=== PATIENT | female | born 1935 | race Caucasian/White ===

== ENCOUNTER → 2019-03-18 | Outpatient (CLI) | payer MEDICARE | LOC: CARD 09:43 | PROVIDERS: ATTEND Internal Medicine Interventional Cardiology | DX: I25.10 Atherosclerotic heart disease of native coronary artery without angina pectoris (principal); I48.1 Persistent atrial fibrillation; R06.02 Shortness of breath | CPT/HCPCS: 93306 ==

== ENCOUNTER 2019-04-30 14:29 | Emergency (ER) | payer MEDICARE ==
[~2019-04-30] VITALS: Ht 165.1 cm; Wt 90.7 kg
--- OUTSIDE RECORDS SUMMARY | 2019-04-30 14:33 | XMS REPORT | Continuity of Care Document ---
Author Organization Unknown Address Unknown Allergies There is no data. Medications There is no data. Problems Date Dx Coded Attending Type Code Diagnosis Diagnosed By 03/21/2019 Marcio HERRING MD Ot I25.10 ATHSCL HEART DISEASE OF [place] CORONARY 03/21/2019 Marcio HERRING MD Ot I48.1 PERSISTENT ATRIAL FIBRILLATION 03/21/2019 Marcio HERRING MD Ot R06.02 SHORTNESS OF BREATH 04/08/2019 Marcio HERRING MD Ot I25.10 ATHSCL HEART DISEASE OF [place] CORONARY 04/08/2019 Marcio HERRING MD Ot I48.1 PERSISTENT ATRIAL FIBRILLATION 04/08/2019 Marcio HERRING MD Ot R06.02 SHORTNESS OF BREATH Procedures There is no data. Results There is no data. Encounters ACCT No. Visit Date/Time Discharge Status Pt. Type Provider Facility Loc./Unit Complaint [id number] 04/26/2019 10:04:54 04/26/2019 23:59:59 [facility] Outpatient [id number] 03/18/2019 09:43:00 03/18/2019 23:59:59 [facility] Outpatient Marcio HERRING MD Via [facility] CARD CAD
[2019-04-30] MEDS ORDERED: AUGMENTIN 500 MG TAB (AMOXICILLIN/CLAVULANATE) PO ONE (15:15)
[2019-04-30] MEDS ORDERED: TETANUS,DIPTH,PERTUSS P/F (BOOSTRIX) 0.5 ML VIAL IM ONE (15:15)
[2019-04-30] MEDS ORDERED: HYDROcodone/APAP 5 MG/325 MG (LORTAB) TAB PO ONE (15:15)
--- NOTE | 2019-04-30 15:23 | Diagnostic Imaging Report ---
INDICATION: Dog bite. EXAMINATION: Two views of the left forearm were obtained. FINDINGS: Bones are osteopenic. There appears to be a nondisplaced fracture through the distal radius which extends into the radiocarpal joint. There are tiny wire-like foreign bodies overlying the distal radius and ulna, of uncertain etiology. The bones are osteopenic. There are degenerative changes. IMPRESSION: 1. Nondisplaced distal radial fracture. 2. Wire-like foreign bodies overlying the distal radius and ulna presumably foreign body. Recommend clinical correlation. Dictated by: Dictated on workstation # [id number]
--- NOTE | 2019-04-30 15:29 | Diagnostic Imaging Report ---
EXAM: Hand, left, 3 views. INDICATION: Left wrist pain. Attacked by dog. COMPARISON: Left forearm radiographs also performed today. FINDINGS: Mildly angulated intra-articular fracture through the distal left radius. Radiopaque sutures overlying the left distal radius and ulna. Moderate degenerative changes in the right radiocarpal joint. IMPRESSION: Acute appearing mildly displaced fracture of the intra-articular distal left radius.? Dictated by: Dictated on workstation # [id number]
[2019-04-30 15:53] LABS: HEMOGLOBIN 13.5 G/DL (11.5-16.0); MEAN PLATELET VOLUME 10.2 FL (7.4-10.4); WHITE BLOOD COUNT 4.2 10^3/uL (4.3-11.0)
--- NOTE | 2019-04-30 16:00 | NUR ---
Pt came to ED with Steri-strips and gauze over wounds. Dressing and steri strips removed and wounds cleaned with surgical scrub at this time. Dr. Mayfield notified.
[2019-04-30 16:10] LABS: INR 1.9 (0.8-1.4); PROTHROMBIN TIME PATIENT 22.8 SEC (12.2-14.7)
[2019-04-30] MEDS ORDERED: LIDOCAINE/EPI 2% 1:100,00 (XYLOCAINE) 20 ML VIAL INJ ONE (16:30)
--- NOTE | 2019-04-30 17:26 | ED General ---
General Chief Complaint: Bite-Animal/Human/Insect Stated Complaint: ATTACKED BY DOG - ARMS / NECK Nursing Triage Note: PT TO ED W/ C/O MULTIPLE BITES R/T ATTACK BY NEIGHBORS DOG AT 1400 TODAY. PT REPORTS SHE IS ON BLOOD THINNERS FOR A FIB. DENIES POLICE REPORT Nursing Sepsis Screen: No Definite Risk Source of Information: Patient Exam Limitations: No Limitations History of Present Illness Date Seen by Provider: Apr 30, 2019 Time Seen by Provider: 14:55 Initial Comments This 84-year-old woman presents to the emergency room with injuries related to multiple dog bites that occurred around 14:00 today. Patient reports the dog attack was unprovoked. She has multiple lacerations on the bilateral arms and pain to the left wrist. She also has a small laceration on the right neck. Patient is anticoagulated on warfarin for A. fib. She did not file a police report and does not desire to. Dog was supposedly vaccinated and is in custody of the neighbor. Allergies and Home Medications Allergies Coded Allergies: morphine (Verified Adverse Reaction, Unknown, 04/30/19) Hallucinations Home Medications Amoxicillin/Potassium Clav 1 Each Tablet, 1 EACH PO BID Prescribed by: GABY ARCINIEGA on 04/30/19 1728 Hydrocodone Bit/Acetaminophen 1 Tab Tab, 1 EACH PO Q4-6HR PRN for PAIN-MODERATE Prescribed by: GABY ARCINIEGA on 04/30/19 1728 Patient Home Medication List Home Medication List Reviewed: Yes Review of Systems Review of Systems Constitutional: no symptoms reported EENTM: see HPI Respiratory: no symptoms reported Cardiovascular: no symptoms reported Gastrointestinal: no symptoms reported Genitourinary: no symptoms reported : No Musculoskeletal: see HPI Skin: see HPI Psychiatric/Neurological: No Symptoms Reported Hematologic/Lymphatic: See HPI Immunological/Allergic: no symptoms reported Past Zoianyn-Bttfpo-Gupipw Hx Past Med/Social Hx: Reviewed Nursing Past Med/Soc Hx Patient Social History Alcohol Use: Rarely Uses Recreational Drug Use: No Smoking Status: Never a Smoker Recent Foreign Travel: No Contact w/Someone Who Travel: No Recent Infectious Disease Expo: No Physical Abuse: No Sexual Abuse: No Mistreated: No Fear: No Past Medical History Surgeries: Yes (KNEE REPLACEMENT X3, RENAL ARTERY STENT) Adenoidectomy, Hysterectomy, Tonsillectomy Respiratory: Yes Asthma, Sleep Apnea Cardiac: Yes (PACEMAKER) Atrial Fibrillation, Hypertension Neurological: Yes Stroke Genitourinary: No Gastrointestinal: No Musculoskeletal: Yes (WRIST SURGERY) Arthritis Endocrine: Yes (THYROID ISSUES) HEENT: No Cancer: Yes (SKIN CA) Psychosocial: No Integumentary: Yes (SKIN CA REMOVED) Blood Disorders: No Physical Exam Vital Signs Vital Signs - First Documented 04/30/19 04/30/19 14:31 18:25 Temp 98.3 Pulse 73 Resp 18 B/P (MAP) 168/90 (116) Pulse Ox 99 O2 Delivery Room Air Capillary Refill : Less Than 3 Seconds Height, Weight, BMI Height: 5'5.00" Weight: 200lbs. oz. 90.658371xr; BMI Method:Stated General Appearance: No Apparent Distress, WD/WN HEENT: PERRL/EOMI, Normal ENT Inspection Neck: Other (Small laceration to the right neck) Respiratory: Lungs Clear, Normal Breath Sounds, No Accessory Muscle Use, No Respiratory Distress Cardiovascular: Regular Rate, Rhythm, No Murmur Extremity: Other (Numerous lacerations and ecchymosis to the bilateral upper extremities. Tenderness and pain with range of motion in the left wrist.) Neurologic/Psychiatric: Alert, Oriented x3, No Motor/Sensory Deficits, Normal Mood/Affect, porcelain turner II-XII Norm as Tested Skin: Warm/Dry, Ecchymosis, Other (See above) Procedures/Interventions Wound Location: Upper Extremities Other Wound Location Left elbow Wound Length (cm): 2.5 Wound's Depth, Shape: flap, sub Q Betadine Prep?: Yes Anesthesia: Lidocaine w/ Epi Volume Anesthetic (ccs): 1 Suture: Prolene Suture Size: 5-0 Number of Sutures: 1 Wound Location: Upper Extremities Other Wound Location Right arm Wound Length (cm): 1 Wound's Depth, Shape: superficial, flap Wound Explored: clean Irrigated w/ Saline (ccs): 100 Betadine Prep?: Yes Anesthesia: Lidocaine w/ Epi Volume Anesthetic (ccs): 1 Suture: Prolene Suture Size: 5-0 Number of Sutures: 1 Wound Location: Upper Extremities Other Wound Location Right arm Wound Length (cm): 3 Wound's Depth, Shape: flap, sub Q Irrigated w/ Saline (ccs): 100 Betadine Prep?: Yes Anesthesia: Lidocaine w/ Epi Suture: Prolene Suture Size: 5-0 Number of Sutures: 3 Wound Location: Upper Extremities Other Wound Location Right arm Wound Length (cm): 2 Wound's Depth, Shape: superficial, flap Irrigated w/ Saline (ccs): 100 Betadine Prep?: Yes Anesthesia: Lidocaine w/ Epi Suture: Prolene Suture Size: 5-0 Number of Sutures: 1 Wound Location: Upper Extremities Other Wound Location Right arm Wound Length (cm): 1.5 Wound's Depth, Shape: linear, irregular Irrigated w/ Saline (ccs): 100 Betadine Prep?: Yes Anesthesia: Lidocaine w/ Epi Suture: Prolene Suture Size: 5-0 Number of Sutures: 2 Progress/Results/Core Measures Suspected Sepsis Recent Fever Within 48 Hours: No Infection Criteria Present: None New/Unexplained Altered Menta: No Sepsis Screen: No Definite Risk SIRS Temperature:98.3 Pulse: 73 Respiratory Rate: 18 Blood Pressure 168 /90 Mean: 116 Results/Orders Lab Results My Orders Orders - GABY SILVESTRE MD Vaccine Administration Single (04/30/19 ) Medications Given in ED Vital Signs/I&O Capillary Refill : Less Than 3 Seconds Blood Pressure Mean: 116 Progress Note : Progress Note X-ray revealed fracture of the left distal radius. An AlumaFoam Colles' splint was applied. A sugar tong splint was not applied due to the wounds on the forearm. He did not want to occlude these wounds and conceal them from visualization. A more robust splint can be applied later if these wounds demonstrate good healing. Several of the lacerations were loosely closed as they were gaping flaps. They were washed and irrigated with chlorhexidine and normal saline prior to closure. Tetanus booster was administered. Baseline CBC and INR were obtained. See discharge instructions. Hydrocodone was given for pain and a take-home pack of hydrocodone was dispensed. Diagnostic Imaging Diagonstic Imaging: Xray Plain Films/CT/US/NM/MRI: forearm Comments Forearm x-ray viewed by me and report reviewed. See report below: NAME: GLENYS GOLDBERG [facility] REC#: [id number] PT STATUS: REG ER : 1935 PHYSICIAN: GABY SILVESTRE MD ADMIT DATE: 04/30/19/ER Signed Date of Exam: 04/30/19 FOREARM, LEFT, 2 VIEWS INDICATION: Dog bite. EXAMINATION: Two views of the left forearm were obtained. FINDINGS: Bones are osteopenic. There appears to be a nondisplaced fracture through the distal radius which extends into the radiocarpal joint. There are tiny wire-like foreign bodies overlying the distal radius and ulna, of uncertain etiology. The bones are osteopenic. There are degenerative changes. IMPRESSION: 1. Nondisplaced distal radial fracture. 2. Wire-like foreign bodies overlying the distal radius and ulna presumably foreign body. Recommend clinical correlation. Dictated by: Dictated on workstation # [id number] Dict: 04/30/19 1518 Trans: 04/30/19 1549 Interpreted by: MOE MICHAEL MD Electronically signed by: MOE MICHAEL MD 04/30/19 1549 Diagonstic Imaging: Xray Plain Films/CT/US/NM/MRI: hand Comments Left hand x-ray viewed by me and report reviewed. See report below: NAME: GLENYS GOLDBERG MED REC#: [id number] PT STATUS: REG ER : 1935 PHYSICIAN: GABY SILVESTRE MD ADMIT DATE: 04/30/19/ER Signed Date of Exam: 04/30/19 HAND, LEFT, 3 VIEWS EXAM: Hand, left, 3 views. INDICATION: Left wrist pain. Attacked by dog. COMPARISON: Left forearm radiographs also performed today. FINDINGS: Mildly angulated intra-articular fracture through the distal left radius. Radiopaque sutures overlying the left distal radius and ulna. Moderate degenerative changes in the right radiocarpal joint. IMPRESSION: Acute appearing mildly displaced fracture of the intra-articular distal left radius.? Dictated by: Dictated on workstation # [id number] Dict: 04/30/19 1520 Trans: 04/30/19 1622 Interpreted by: MINREVA AMADOR MD Electronically signed by: MINERVA AMADOR MD 04/30/19 1622 Diagonstic Imaging: Xray Plain Films/CT/US/NM/MRI: knee Comments Knee x-ray viewed by me and report reviewed. See report below: NAME: GLENYS GOLDBERG MED REC#: [id number] PT STATUS: DEP ER : 1935 PHYSICIAN: GABY SILVESTRE MD ADMIT DATE: 04/30/19/ER Signed Date of Exam: 04/30/19 KNEE, RIGHT, 3 VIEWS EXAMINATION: Right knee at 05:34 p.m. INDICATION: Attacked by dog. Three views were obtained. COMPARISON: There are no prior studies available for comparison. FINDINGS: There is no fracture, dislocation or acute bony abnormality evident. There is a total knee prosthesis in place as well as two metallic jaime in the proximal tibia. The orthopedic hardware seems to be in good position. The soft tissues are unremarkable. There is no radiopaque foreign body identified. IMPRESSION: 1. There is no evidence for an acute bony abnormality or for radiopaque foreign body. 2. The total knee prosthesis and metallic jaime in the proximal tibia seen in good position. Dictated by: Dictated on workstation # [id number] Dict: 04/30/191742 Trans: 04/30/197 Interpreted by: SHYANN ORDONEZ MD Electronically signed by: SHYANN ORDONEZ MD 04/30/193 Departure Impression Primary Impression: Fracture of left distal radius Qualified Codes: S52.502A - Unspecified fracture of the lower end of left radius, initial encounter for closed fracture Additional Impressions: Dog bite Qualified Codes: W54.0XXA - Bitten by dog, initial encounter Multiple lacerations Anticoagulated on warfarin Traumatic hematoma of right knee Qualified Codes: S80.01XA - Contusion of right knee, initial encounter Traumatic hematoma of right upper arm Qualified Codes: S40.021A - Contusion of right upper arm, initial encounter Disposition: 01 HOME, SELF-CARE Condition: Improved Departure-Patient Inst. Decision time for Depature: 17:00 Referrals: BECKI BOND DO (PCP/Family) Primary Care Physician Patient Instructions: Forearm Fracture (DC), Laceration Repair With Stitches (DC) Add. Discharge Instructions: Complete the antibiotics as prescribed to prevent infection. Monitor your wounds for signs of infection such as increasing swelling, increasing redness, puslike drainage, or fever. Return to care promptly if you notice these signs or symptoms. For mild pain you may take Tylenol (acetaminophen) up to 1000 mg every 6 hours as needed. For more severe pain, take hydrocodone as prescribed. Have your INR checked in a few days because antibiotic use may alter your INR. Keep the left wrist in a splint as much as possible. Follow-up with an orthopedic as soon as possible. You may shower but do not scrub directly over your wounds. Expect your wounds to ooze some blood and clearish yellow fluid over the next couple of days. Return in about 7 days to have your stitches removed. Elevation and 20 minute intervals of icing should help reduce pain and swelling. All discharge instructions reviewed with patient and/or family. Voiced understanding. Scripts Hydrocodone Bit/Acetaminophen (Hydrocodone/Acetaminophen 5/325mg Tablet) 1 Tab Tab 1 EACH PO Q4-6HR PRN for PAIN-MODERATE MDD 10, #20 TAB Prov: GABY SILVESTRE MD 04/30/19 Amoxicillin/Potassium Clav (Augmentin 500-125 Tablet) 1 Each Tablet 1 EACH PO BID, #10 TAB Prov: GABY SILVESTRE MD 04/30/19 GABY SILVESTRE MD Apr 30, 2019 17:25
[2019-04-30] MEDS ORDERED: AMOX-355 PO (17:28)
[2019-04-30] MEDS ORDERED: ACHD5005 PO (17:28)
--- NOTE | 2019-04-30 17:54 | Diagnostic Imaging Report ---
EXAMINATION: Right knee at 05:34 p.m. INDICATION: Attacked by dog. Three views were obtained. COMPARISON: There are no prior studies available for comparison. FINDINGS: There is no fracture, dislocation or acute bony abnormality evident. There is a total knee prosthesis in place as well as two metallic jaime in the proximal tibia. The orthopedic hardware seems to be in good position. The soft tissues are unremarkable. There is no radiopaque foreign body identified. IMPRESSION: 1. There is no evidence for an acute bony abnormality or for radiopaque foreign body. 2. The total knee prosthesis and metallic jaime in the proximal tibia seen in good position. Dictated by: Dictated on workstation # [id number]
[2019-04-30] MEDS ORDERED: RX-HYDROCODONE/APAP 5/325 MG #4 TAB PK PO PRN (18:15)
[2019-04-30 18:25] VITALS: BP 168/90
== END 2019-04-30 18:25 | disposition home or self-care (01) ==
LOC: EDUNIT# 14:29 → ER 14:30
DX: S52.502A Unspecified fracture of the lower end of left radius, initial encounter for closed fracture (principal); S41.151A Open bite of right upper arm, initial encounter; S11.95XA Open bite of unspecified part of neck, initial encounter; S81.051A Open bite, right knee, initial encounter; J45.909 Unspecified asthma, uncomplicated; G47.30 Sleep apnea, unspecified; I48.91 Unspecified atrial fibrillation; I10 Essential (primary) hypertension; Z79.01 Long term (current) use of anticoagulants; Z23 Encounter for immunization; Z96.0 Presence of urogenital implants; Z95.0 Presence of cardiac pacemaker; Z86.73 Personal history of transient ischemic attack (TIA), and cerebral infarction without residual deficits; Z85.828 Personal history of other malignant neoplasm of skin; Z88.5 Allergy status to narcotic agent; Z90.710 Acquired absence of both cervix and uterus; Z90.89 Acquired absence of other organs; W54.0XXA Bitten by dog, initial encounter
CPT/HCPCS: 12001; 12002; 12031; 36415; 73090; 73130; 73562; 85027; 85610; 90471; 90715

== ENCOUNTER → 2019-05-02 | Outpatient (CLI) | payer MEDICARE ==
[~2019-05-02] MED LIST: ACHD5005 PO; AMOX-355 PO
--- NOTE | 2019-05-02 13:43 | Diagnostic Imaging Report ---
INDICATION: Right wrist pain. FINDINGS: Three views of the right wrist show no fracture, dislocation, or other acute abnormalities. There is joint space narrowing of the first carpometacarpal joint. IMPRESSION: Osteoarthritis of the first carpometacarpal joint. No acute abnormality seen. Dictated by: Dictated on workstation # [id number]
== END ==
LOC: RAD 13:04
PROVIDERS: ATTEND Nurse Practitioner Family
DX: M19.031 Primary osteoarthritis, right wrist (principal); X58.XXXA Exposure to other specified factors, initial encounter
CPT/HCPCS: 73110

== ENCOUNTER → 2019-05-03 | Outpatient (CLI) | payer MEDICARE | LOC: ORTHO 08:34 | PROVIDERS: ATTEND Orthopaedic Surgery | DX: S52.512A Displaced fracture of left radial styloid process, initial encounter for closed fracture (principal); S41.151A Open bite of right upper arm, initial encounter; S51.852A Open bite of left forearm, initial encounter; W64.XXXA Exposure to other animate mechanical forces, initial encounter | CPT/HCPCS: 29075; 99203 ==

== ENCOUNTER 2019-05-09 11:16 | Emergency (ER) | payer MEDICARE ==
[~2019-05-09] VITALS: Ht 165.1 cm; Wt 90.7 kg
--- OUTSIDE RECORDS SUMMARY | 2019-05-09 11:33 | XMS REPORT | Continuity of Care Document ---
Author Organization Unknown Address Unknown Allergies Active Description Code Type Severity Reaction Onset Reported/Identified Relationship to Patient Clinical Status Yes morphine [id number] Drug Allergy Unknown N/A 04/30/2019 Medications There is no data. Problems Date Dx Coded Attending Type Code Diagnosis Diagnosed By 03/21/2019 Marcio HERRING MD, Ot I25.10 ATHSCL HEART DISEASE OF [place] CORONARY 03/21/2019 Marcio HERRING MD, Ot I48.1 PERSISTENT ATRIAL FIBRILLATION 03/21/2019 Marcio HERRING MD, Ot R06.02 SHORTNESS OF BREATH 04/08/2019 Marcio HERRING MD, Ot I25.10 ATHSCL HEART DISEASE OF [place] CORONARY 04/08/2019 Marcio HERRING MD, Ot I48.1 PERSISTENT ATRIAL FIBRILLATION 04/08/2019 Marcio HERRING MD, Ot R06.02 SHORTNESS OF BREATH 04/30/2019 GABY SILVESTRE MD, Ot G47.30 SLEEP APNEA, UNSPECIFIED 04/30/2019 GABY SILVESTRE MD Ot I10 ESSENTIAL (PRIMARY) HYPERTENSION 04/30/2019 GABY SILVESTRE MD, Ot I48.91 UNSPECIFIED ATRIAL FIBRILLATION 04/30/2019 GABY SILVESTRE MD, Ot J45.909 UNSPECIFIED ASTHMA, UNCOMPLICATED 04/30/2019 GABY SILVESTRE MD Ot S11.95XA OPEN BITE OF UNSPECIFIED PART OF NECK, I 04/30/2019 GABY SILVESTRE MD, Ot S41.151A OPEN BITE OF RIGHT UPPER ARM, INITIAL EN 04/30/2019 GABY SILVESTRE MD, Ot S52.502A UNSP FRACTURE OF THE LOWER END OF LEFT R 04/30/2019 GABY SILVESTRE MD, Ot S81.051A OPEN BITE, RIGHT KNEE, INITIAL ENCOUNTER 04/30/2019 GABY SILVESTRE MD, Ot W54.0XXA BITTEN BY DOG, INITIAL ENCOUNTER 04/30/2019 GABY SILVESTRE MD, Ot Z23 ENCOUNTER FOR IMMUNIZATION 04/30/2019 GABY SILVESTRE MD, Ot 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 04/30/2019 GABY SILVESTRE MD, Ot Z85.828 PERSONAL HISTORY OF OTHER MALIGNANT NEOP 04/30/2019 GABY SILVESTRE MD, Ot Z86.73 PRSNL HX OF TIA (TIA), AND CEREB INFRC W 04/30/2019 GABY SILVESTRE MD, Ot Z88.5 ALLERGY STATUS TO NARCOTIC AGENT STATUS 04/30/2019 GABY SILVESTRE MD, Ot Z90.710 ACQUIRED ABSENCE OF BOTH CERVIX AND UTER 04/30/2019 GABY SILVESTRE MD, Ot Z90.89 ACQUIRED ABSENCE OF OTHER ORGANS 04/30/2019 GABY SILVESTRE MD, Ot Z95.0 PRESENCE OF CARDIAC PACEMAKER 04/30/2019 GABY SILVESTRE MD, Ot Z96.0 PRESENCE OF UROGENITAL IMPLANTS 05/03/2019 Marcio HERRING MD, Ot I25.10 ATHSCL HEART DISEASE OF [place] CORONARY 05/03/2019 Marcio HERRING MD, Ot I48.1 PERSISTENT ATRIAL FIBRILLATION 05/03/2019 Marcio HERRING MD, Ot R06.02 SHORTNESS OF BREATH Procedures There is no data. Results Test Result Range PT panel in platelet poor plasma by coagulation assay - 04/30/19 15:43 Prothrombin time (PT) in platelet poor plasma by coagulation assay 22.8 s 12.2-14.7 INR in platelet poor plasma or blood by coagulation assay 1.9 0.8-1.4 Automated blood complete blood count (hemogram) panel - 04/30/19 15:43 Blood leukocytes automated count (number/volume) 4.2 10*3/uL 4.3-11.0 Blood erythrocytes automated count (number/volume) 4.37 10*6/uL 4.35-5.85 Venous blood hemoglobin measurement (mass/volume) 13.5 g/dL 11.5-16.0 Blood hematocrit (volume fraction) 40 % 35-52 Automated erythrocyte mean corpuscular volume 92 [foz_us] 80-99 Automated erythrocyte mean corpuscular hemoglobin (mass per erythrocyte) 31 pg 25-34 Automated erythrocyte mean corpuscular hemoglobin concentration measurement (mass/volume) 34 g/dL 32-36 Automated erythrocyte distribution width ratio 15.0 % 10.0- 14.5 Automated blood platelet count (count/volume) 206 10*3/uL 130-400 Automated blood platelet mean volume measurement 10.2 [foz_us] 7.4-10.4 Encounters ACCT No. Visit Date/Time Discharge Status Pt. Type Provider Facility Loc./Unit Complaint [id number] 04/26/2019 10:04:54 04/26/2019 23:59:59 [facility] Outpatient [id number] 05/03/2019 08:34:00 05/03/2019 23:59:59 CLS Outpatient ANAIS SHULTZ, KENISHA Sands Via [facility] ORTHO [id number] 05/02/2019 13:04:00 05/02/2019 23:59:59 CLS Outpatient NORMA GIL APRN [facility] RAD WRIST PAIN FOLLOWING ACCIDENT [id number] 04/30/2019 14:30:00 04/30/2019 18:25:00 DIS Emergency NIRMALA SHULTZ, GABY Gilmore [facility] ER ATTACKED BY DOG - ARMS / NECK [id number] 03/18/2019 09:43:00 03/18/2019 23:59:59 CLS Outpatient Marcio HERRING MD Via [facility] CARD CAD
[2019-05-09 11:48] VITALS: BP 160/87
== END 2019-05-09 11:48 | disposition home or self-care (01) ==
LOC: EDUNIT# 11:16 → ER 11:17
DX: S51.812D Laceration without foreign body of left forearm, subsequent encounter (principal); S51.811D Laceration without foreign body of right forearm, subsequent encounter; X58.XXXD Exposure to other specified factors, subsequent encounter

== ENCOUNTER → 2019-05-17 | Outpatient (CLI) | payer MEDICARE ==
--- NOTE | 2019-05-17 12:30 | Diagnostic Imaging Report ---
EXAMINATION: Left wrist radiographs, 3 views. Right wrist radiographs, 3 views. COMPARISON: May 02, 2019. HISTORY: 84-year-old female, history of distal radius fracture. Bilateral wrist pain. FINDINGS: LEFT WRIST: The bones appear demineralized. There are metallic areas of high attenuation at the level of the left distal ulna and left distal radius as well as at the base of the left fifth metacarpal. These may relate to radiopaque foreign bodies of uncertain exact age. These also could be procedural in etiology. Recommend correlation. There is chondrocalcinosis. There is moderate radiocarpal joint space loss on the left, particularly at the level of the radiolunate articulation. There is mild arthritis of the first metacarpophalangeal joint on the left. There is a lucency in the region of the distal radial metaphysis at its radial aspect which does extend towards the articulating surface. There does appear to be mild interval healing change since April 30, 2019. There is no identified bone erosion. RIGHT WRIST: There is chondrocalcinosis. There does appear to be mild widening of the scapholunate interval. There is no proximal migration of the capitate. There is chondrocalcinosis. There is moderate osteoarthritis of the first carpometacarpal joint. There is no identified bone erosion. There is no identified acute fracture. There is no radiopaque foreign body. There are vascular calcifications. The joint spaces on the right appear well preserved. IMPRESSION: 1. Mild widening of the right scapholunate interval which potentially could be seen with scapholunate ligament tear. No proximal migration of the capitate. 2. Chondrocalcinosis which has multiple associations including calcium pyrophosphate dihydrate deposition disease and advanced age. There are no additional particularly supportive findings of CPPD at the level of the right or left wrist. 3. Moderate osteoarthritis of the right first carpometacarpal joint. 4. At least moderate radiocarpal joint space loss on the left, particularly in the region of the radiolunate articulation. 5. Mild interval healing change at the site of previously noted left distal radial fracture without current gross offset of the articulating surface. Dictated by: Dictated on workstation # [id number]
== END ==
LOC: ORTHO 08:44
PROVIDERS: ATTEND Orthopaedic Surgery
DX: S52.502D Unspecified fracture of the lower end of left radius, subsequent encounter for closed fracture with routine healing (principal); X58.XXXD Exposure to other specified factors, subsequent encounter; M11.231 Other chondrocalcinosis, right wrist; M11.232 Other chondrocalcinosis, left wrist
CPT/HCPCS: 29075

== ENCOUNTER → 2019-06-08 | Outpatient (CLI) | payer MEDICARE ==
--- NOTE | 2019-06-08 11:00 | Diagnostic Imaging Report ---
INDICATION: Followup distal radius fracture. TIME OF EXAMINATION: 9:01 AM. COMPARISON: 05/17/2019. FINDINGS: Scapholunate widening is again noted. The distal radius fracture appears similar to the prior examination. The fracture lines do remain partly visible. The fracture does extend to the articular surface. The distal ulna is intact. Chondrocalcinosis of the triangular fibrocartilage complex is again seen. The metacarpals are unremarkable. There are degenerative changes at the first CMC joint. IMPRESSION: Overall similar appearance to the left wrist when compared to the examination from 05/17/2019. Dictated by: Dictated on workstation # [id number]
== END ==
LOC: ORTHO 08:47
PROVIDERS: ATTEND Orthopaedic Surgery
DX: S52.502D Unspecified fracture of the lower end of left radius, subsequent encounter for closed fracture with routine healing (principal); X58.XXXD Exposure to other specified factors, subsequent encounter; M11.231 Other chondrocalcinosis, right wrist; M11.232 Other chondrocalcinosis, left wrist
CPT/HCPCS: 73110; 99213

== ENCOUNTER → 2019-06-21 | Outpatient (CLI) | payer MEDICARE | LOC: ORTHO 10:42 | PROVIDERS: ATTEND Orthopaedic Surgery | DX: S52.502D Unspecified fracture of the lower end of left radius, subsequent encounter for closed fracture with routine healing (principal); X58.XXXD Exposure to other specified factors, subsequent encounter; M11.231 Other chondrocalcinosis, right wrist; M11.232 Other chondrocalcinosis, left wrist | CPT/HCPCS: 99213 ==

== ENCOUNTER → 2019-07-06 | Outpatient (CLI) | payer MEDICARE | LOC: CARD 10:39 | PROVIDERS: ATTEND Family Medicine | DX: I48.91 Unspecified atrial fibrillation (principal) | CPT/HCPCS: 93005 ==

== ENCOUNTER → 2019-07-13 | Outpatient (CLI) | payer MEDICARE | LOC: ORTHO 09:49 | PROVIDERS: ATTEND Orthopaedic Surgery | DX: S52.502D Unspecified fracture of the lower end of left radius, subsequent encounter for closed fracture with routine healing (principal); X58.XXXD Exposure to other specified factors, subsequent encounter; M11.231 Other chondrocalcinosis, right wrist; M11.232 Other chondrocalcinosis, left wrist ==

== ENCOUNTER → 2019-09-27 | Outpatient (CLI) | payer MEDICARE ==
--- NOTE | 2019-09-27 11:19 | Diagnostic Imaging Report ---
INDICATION: Postmenopausal screening for osteoporosis. COMPARISON: None. FINDINGS: AP Spine L1-L4: [BMD (g/cm2): 0.710] [T-Score: -4.1] [Z-Score: -3.0] [BMD Previous: na] [BMD % Change: na] LT Hip Neck: [BMD (g/cm2): 0.702] [T-Score: -2.4] [Z-Score: -0.6] LT Hip Total: [BMD (g/cm2):0.777] [T-Score:-1.8] [Z-Score: -0.2] [BMD Previous: na] [BMD % Change: na] RT Hip Neck: [BMD (g/cm2):0.672] [T-Score:-2.6] [Z-Score:-0.8] RT Hip Total: [BMD (g/cm2):0.670] [T-score:-2.7] [Z-Score:-1.0] [BMD Previous:NA] [BMD % Change:NA] *Indicates significant change from prior examination based on 95% confidence level. World Health Organization criteria for BMD interpretation classify patients as Normal (T-score at or above -1.0), Osteopenic (T-score between -1.0 and -2.5) or Osteoporotic (T-score at or below -2.5). LIMITATIONS AND MODIFICATION: None. FRACTURE RISK (FRAX SCORE): The ten year probability of (%): Major Osteoporotic Fracture: [26.5] Hip Fracture: [8.8] IMPRESSION: 1. Osteopenia (Low bone mass). 2. Baseline examination. 3. See below National Osteoporosis Foundation guidelines on when to potentially initiate pharmacologic therapy. Based on the National Osteoporosis Foundation Guidelines, pharmacologic treatment should be initiated in any of the following, unless clinical conditions suggest otherwise: * Any patient with prior fragility fracture of the hip or vertebrae. A spine fracture indicates 5X risk for subsequent spine fracture and 2X risk for subsequent hip fracture. * Osteoporosis (T-score <-2.5). * Postmenopausal women and men age 50 and older with low bone mass/osteopenia (T-score between -1.0 and -2.5) by DXA and 10-year major osteoporotic fracture greater than 20% or a 10-year probability of hip fracture greater than 3%. These fracture risks are supplied above in the FRAX score, if applicable. * Clinician judgement and/or patient preferences may indicate treatment for people with 10-year fracture probabilities above or below these levels. Dictated by: Dictated on workstation # [id number]
== END ==
LOC: RAD 10:20
PROVIDERS: ATTEND Family Medicine
DX: Z13.820 Encounter for screening for osteoporosis (principal); M81.0 Age-related osteoporosis without current pathological fracture; M85.80 Other specified disorders of bone density and structure, unspecified site; Z78.0 Asymptomatic menopausal state
CPT/HCPCS: 77067; 77080

== ENCOUNTER → 2019-10-14 | Outpatient (CLI) | payer MEDICARE ==
[~2019-10-14] MED LIST changes: +RT-ALBUTEROL SULF 2.5 MG/3 ML PRE-MIX VIAL INH ONE; +RT-ALBUTEROL SULF 2.5 MG/3 ML PRE-MIX VIAL ONE
== END ==
LOC: RT 07:51
PROVIDERS: ATTEND Family Medicine
DX: R06.00 Dyspnea, unspecified (principal)
CPT/HCPCS: 94060; 94726; 94729

== ENCOUNTER 2019-10-28 21:15 | Emergency (ER) | payer MEDICARE ==
[~2019-10-28] VITALS: Ht 164.5 cm; Wt 92.8 kg
[~2019-10-28 21:15] MED LIST changes: -RT-ALBUTEROL SULF 2.5 MG/3 ML PRE-MIX VIAL INH ONE; -RT-ALBUTEROL SULF 2.5 MG/3 ML PRE-MIX VIAL ONE
[2019-10-28 22:00] VITALS: BP 201/99
[2019-10-28] MEDS ORDERED: fentaNYL INJECTION 100 MCG/2 ML AMP IM ONE ×2 (22:00→22:45)
--- NOTE | 2019-10-28 22:00 | ED Fall/Injury ---
General Chief Complaint: Head/Cervical Problems Stated Complaint: FALL-INJ TO BACK OF HEAD,RIGHT ELBOW PAIN Source: patient, family (brother and [id number]) Exam Limitations: no limitations History of Present Illness Date Seen by Provider: Oct 28, 2019 Time Seen by Provider: 21:45 Initial Comments The patient resents to ER by private conveyance with chief complaint of a fall happening about 45 minutes prior to arrival. She was on an incline trying to put something in the trunk of her car and when she reached up above her head to pull the lid of the trunk down she lost her balance falling backwards onto her right elbow and the back of her head. She has a goose egg on the back of her head with no bleeding. She has some pain in her right elbow and pain 11 out of 10 in her occiput and midline and right side of her neck. She's having no numbness tingling weakness dysuria fevers chills. She does say she feels a little disoriented. She is followed by Dr. Black. She has a history of atrial fibrillation on warfarin. Last week she had a 1.4 INR. Allergies and Home Medications Allergies Coded Allergies: morphine (Verified Adverse Reaction, Unknown, 04/30/19) Hallucinations Home Medications Amoxicillin/Potassium Clav 1 Each Tablet, 1 EACH PO BID Prescribed by: GABY ARCINIEGA on 04/30/19 1728 Hydrocodone Bit/Acetaminophen 1 Tab Tab, 1 EACH PO Q4-6HR PRN for PAIN-MODERATE Prescribed by: GABY ARCINIEGA on 04/30/19 1728 Patient Home Medication List Home Medication List Reviewed: Yes Review of Systems Review of Systems Constitutional: No chills, No diaphoresis Eyes: Denies Blindness, Denies Blurred Vision Ears, Nose, Mouth, Throat: denies ear pain, denies ear discharge Respiratory: No cough, No short of breath Cardiovascular: No chest pain, No palpitations Gastrointestinal: No abdominal pain, No constipation, No diarrhea Genitourinary: No discharge, No dysuria Musculoskeletal: see HPI, back pain, joint pain Skin: No pruritus, No rash Past Eaxjfrx-Rizjqc-Astadt Hx Patient Social History Alcohol Use: Denies Use Recreational Drug Use: No Smoking Status: Never a Smoker Recent Foreign Travel: No Contact w/Someone Who Travel: No Past Medical History Surgeries: Yes (KNEE REPLACEMENT X3, RENAL ARTERY STENT) Adenoidectomy, Hysterectomy, Tonsillectomy Respiratory: Yes Asthma, Sleep Apnea Cardiac: Yes (PACEMAKER) Atrial Fibrillation, Hypertension Neurological: Yes Stroke Genitourinary: No Gastrointestinal: No Musculoskeletal: Yes (WRIST SURGERY) Arthritis Endocrine: Yes (THYROID ISSUES) HEENT: No Cancer: Yes (SKIN CA) Psychosocial: No Integumentary: Yes (SKIN CA REMOVED) Blood Disorders: No Physical Exam Vital Signs Vital Signs - First Documented 10/28/19 22:18 Temp 36.3 Pulse 94 Resp 18 B/P (MAP) 206/136 (159) Pulse Ox 98 Capillary Refill : Height, Weight, BMI Height: 5'5.00" Weight: 200lbs. oz. [id number]; 28.12 BMI Method:Actual General Appearance: WD/WN, no apparent distress HEENT: PERRL/EOMI, normal ENT inspection (negative for hemotympanum or Ruth sign), TMs normal, pharynx normal, other (3 cm hematoma, soft, non-bleeding over the right occiput) Neck: full range of motion, normal inspection, tender lateral (right side lateral) Cardiovascular: normal peripheral pulses, regular rate, rhythm Respiratory: lungs clear, normal breath sounds, no respiratory distress, no accessory muscle use Peripheral Pulses: 2+ Dorsalis Pedis (R), 2+ Left Dors-Pedis (L), 2+ Radial Pulses (R), 2+ Radial Pulses (L) Back: normal inspection, vertebral tenderness (midline lumbar as well as bilateral paraspinous muscles) Extremities: normal range of motion, no pedal edema, normal capillary refill, other (tenderness and ecchymoses over the right elbow but full range of motion without crepitus or deformity) 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, no motor/sensory deficits, alert, normal mood/affect, oriented x 3 Skin: normal color, warm/dry Grubbs Coma Score Best Eye Response: (4) Open Spontaneously Best Verbal Response: (5) Oriented Best Motor Response: (6) Obeys Commands Grubbs Total: 15 Progress/Results/Core Measures Results/Orders My Orders Orders - ABRAM IVY Fentanyl Injection (Sublimaze Injection (10/28/19 22:00) Ct Head/Cervical Spine Wo (10/28/19 21:57) Elbow, Right, 3 Views (10/28/19 21:57) Fentanyl Injection (Sublimaze Injection (10/28/19 22:45) Acetaminophen Tablet (Tylenol Tablet) (10/28/19 23:30) Medications Given in ED Current Medications Medications Dose Ordered Sig/Paco Route Start Time Stop Time Status Last Admin Dose Admin Acetaminophen 1,000 mg ONCE ONCE PO 10/28/19 23:30 10/28/19 23:31 DC 10/29/19 00:01 1,000 MG Fentanyl Citrate 50 mcg ONCE ONCE IM 10/28/19 22:00 10/28/19 22:01 DC 10/28/19 22:10 50 MCG Fentanyl Citrate 75 mcg ONCE ONCE IM 10/28/19 22:45 10/28/19 22:46 DC 10/28/19 23:10 75 MCG Vital Signs/I&O 10/28/19 22:18 Temp 36.3 Pulse 94 Resp 18 B/P (MAP) 206/136 (159) Pulse Ox 98 Progress Progress Note #1: Time: 23:[address] of the head and C-spine. Gave her 50 g of fentanyl IM which did not help so we will give her another 75 g. Put her in a c-collar. X-ray of the right elbow. Progress Note #2: Time: 23:20 Progress Note C-collar cleared radiographically. Thousand milligrams Tylenol for neck 8. Plan to put her on Flexeril. Did counseling on concussion and paraspinous muscle strain/sprain. Diagnostic Imaging Diagonstic Imaging: Xray Plain Films/CT/US/NM/MRI: elbow (right) Comments No acute osseous abnormality. Reviewed: Reviewed by Me Diagonstic Imaging: CT Plain Films/CT/US/NM/MRI: c-spine, head Comments No acute intracranial hemorrhage mass effect or midline shift or tumor. No calvarial fracture. No C-spine malalignment or fracture. There is a posterior scalp hematoma with edema. No acute intracranial hemorrhage or skull fracture. No acute fracture of the C-spine. Multilevel degenerative changes. Reviewed: Reviewed Night [facility] Study, Reviewed by Me Departure Impression Primary Impression: Fall Qualified Codes: W19.XXXA - Unspecified fall, initial encounter Additional Impressions: Hematoma Cervical paraspinous muscle spasm Traumatic ecchymosis of right elbow Qualified Codes: S50.01XA - Contusion of right elbow, initial encounter Disposition: HOME, SELF-CARE Condition: Stable Departure-Patient Inst. Decision time for Depature: 00:20 Referrals: BECKI BLACK DO (PCP/Family) Primary Care Physician Patient Instructions: Cervical Muscle Strain (DC), Concussion, Adult (DC) Add. Discharge Instructions: Ice for 20 minutes every 4 hours for the first 1-2 days applied over the descending on the back of her head. Tylenol 1000 g every 8 hours as needed for pain. Cyclobenzaprine one tablet every 8 hours as needed for muscle spasms of the neck or back. Heating pads, massage and topical creams such as icy hot or Biofreeze as necessary. If not seeing improvement in 1-2 weeks then please follow-up with primary care for further evaluation and management. Please return to the nearest ER if you begin to experience weakness, numbness, falls, confusion. If you have symptoms of a concussion including headache, drowsiness, nausea, irritability then you need to get more sleep. For the first 1-2 days limit your exposure to electronics and put yoyr brain to rest as much as possible. All discharge instructions reviewed with patient and/or family. Voiced understanding. Scripts Ondansetron (Ondansetron Odt) 4 Mg Tab.rapdis 4 MG PO Q6H PRN for NAUSEA/VOMITING, #8 TAB 0 Refills Prov: ABRAM IVY 10/29/19 Cyclobenzaprine HCl (Cyclobenzaprine HCl) 10 Mg Tablet 10 MG PO Q8H PRN for SPASMS, #15 TAB 0 Refills Prov: ABRAM IVY 10/29/19 ABRAM IVY Oct 28, 2019 22:00 POS
[2019-10-28 22:15] VITALS: BP 195/104
[2019-10-28 22:30] VITALS: BP 194/113
[2019-10-28 23:15] VITALS: BP 205/138
[2019-10-28 23:30] VITALS: BP 173/84
[2019-10-28] MEDS ORDERED: ACETAMINOPHEN 500 MG TAB (TYLENOL) PO ONE (23:30)
[2019-10-28 23:45] VITALS: BP 173/84
[2019-10-29] VITALS: BP 167/91
[2019-10-29 00:15] VITALS: BP 177/77
[2019-10-29] MEDS ORDERED: ONDA4TAB11 PO (00:23)
[2019-10-29] MEDS ORDERED: CYCL10TA9 PO (00:23)
[2019-10-29 00:30] VITALS: BP 176/96
[2019-10-29 00:45] VITALS: BP 166/83
--- NOTE | 2019-10-29 05:27 | Diagnostic Imaging Report ---
PROCEDURE: CT head and CT cervical spine without contrast. TECHNIQUE: Multiple contiguous axial images were obtained through the brain and cervical spine without the use of intravenous contrast. Sagittal and coronal reformations through the cervical spine were then performed. Auto Exposure Controls were utilized during the CT exam to meet ALARA standards for radiation dose reduction. INDICATION: Fall backwards. Hit top of head and right elbow. Scalp contusion. Neck pain. COMPARISON: None. FINDINGS: CT head: The ventricles and cortical sulci are age-appropriate. There is no midline shift or mass-effect. No acute intracranial hemorrhage is seen. There is no CT evidence of acute territorial ischemia. No focal masses or collections are present. The calvarium is intact. Scalp contusion is noted in the midline posteriorly. The visualized paranasal sinuses are clear. CT cervical spine: No acute fracture or dislocation is seen in the cervical spine. No focal osseous lesions. Vertebral body heights are well-maintained. The craniocervical junction is well-maintained. Mild degenerative changes are seen in the cervical spine with disc osteophyte complexes and uncovertebral arthropathy. Soft tissues of the neck are unremarkable. IMPRESSION: 1. No hemorrhage or focal intra-axial mass. No CT evidence of large acute territorial ischemia. 2. No acute fracture or dislocation in the cervical spine. Agree with overnight report. Dictated by: Dictated on workstation # [id number]
--- NOTE | 2019-10-29 05:44 | Diagnostic Imaging Report ---
INDICATION: Fall, pain. COMPARISON: None available. TECHNIQUE: 3 radiographs of the right elbow dated 10/28/2019 FINDINGS: No acute fracture or dislocation. No destructive osseous process. No elbow joint effusion. No suspicious radiopaque foreign body. IMPRESSION: No acute osseous abnormality. Dictated by: Dictated on workstation # [id number]
[2019-11-02] MEDS ORDERED: LEVO50TA6 PO (13:40)
[2019-11-02] MEDS ORDERED: ISOS30TA3 PO (13:40)
[2019-11-02] MEDS ORDERED: LOSA50TA63 PO (13:40)
[2019-11-02] MEDS ORDERED: FURO40TA4 PO (13:40)
[2019-11-02] MEDS ORDERED: ASPI-586 PO (13:40)
[2019-11-02] MEDS ORDERED: POTA10TA10 PO (13:40)
[2019-11-02] MEDS ORDERED: PRAV40TA2 PO (13:40)
[2019-11-02] MEDS ORDERED: WARF4TAB70 PO (13:40)
[2019-11-02] MEDS ORDERED: WARF-47 PO (13:40)
[2019-11-02] MEDS ORDERED: CARV25TA PO (13:40)
--- OUTSIDE RECORDS SUMMARY | 2019-11-24 06:48 | XMS REPORT | CCD ---
Author Author Tricia Black D.O. Organization [facility] Address [address] [place] [address] Phone Care Team Providers Care Humanities Instructor Name Role Phone PP Unavailable CCM Unavailable Summary Purpose Interface Exchange Insurance Providers Payer name Policy type / Coverage type Covered republican ID Effective Begin Date Effective End Date WPS MEDICARE PART B [place] Medicare Part B [id number] Unknown Unknown [facility] Medicare Part B [id number] Unknown Unknown Family history Grandmother Diagnosis Age At Onset Myocardial infarction Unknown Son Diagnosis Age At Onset Prostate Cancer Unknown Father Diagnosis Age At Onset Lung Cancer Unknown Daughter Diagnosis Age At Onset Breast cancer Unknown Mother Diagnosis Age At Onset Hypertension Unknown Myocardial infarction Unknown Social History Social History Element Codes Description Effective Dates Marital status Unknown 03/08/2019 Number of children Unknown 3 03/08/2019 Employment Unknown Retired 03/08/[address]: 608825415 Has never smoked or chewed tobacco 03/08/[address]: 898335 Currently drinks alcohol 03/08 Has the patient ever used illegal drugs? Unknown Has nev er used illegal drugs 03/08/2019 Allergies, Adverse Reactions, Alerts Substance Reaction Codes Entered Date Inactivated Date Status * NO KNOWN FOOD ALLERGIES Unknown 03/08/2019 No Inactiv e Date Active * NO KNOWN ENVIRONMENTAL ALLERGIES Unknown 03/08/2019 N o Inactive Date Active _ Unknown 03/08/2019 No Inactive Date Active Problems Condition Codes Effective Dates Condition Status Long-term (current) use of anticoagulants, INR goal 2. 0-3.0 ICD-9: V58.61 ICD-10: Z79.01 09/08/2019 Active Chronic airway obstruction, not elsewhere classified I CD-9: 496 ICD-10: J44.9 11/03/2019 Active Head contusion ICD-9: 920 ICD-10: S00.93XA 11/03/2019 Active Post concussion syndrome ICD-9: 310.2 ICD-10: F07.81 11/03/2019 Active Ecchymosis of left eye ICD-9: 921.0 ICD-10: S05.12XA 10/31/2019 Active Essential (primary) hypertension ICD-9: 401.9 ICD-10: I10 03/08/2019 Active Fall as cause of accidental injury at home as place of occurrence ICD-9: E888.9 ICD-10: W19.XXXA 10/31/2019 Active Headache ICD-9: 784.0 ICD-10: R51 10/31/2019 Active Pain in right arm ICD-9: 729.5 ICD-10: M79.601 09/08/2019 Active Radiculopathy of arm ICD-9: 723.4 ICD-10: M54.10 10/11/2019 Active Bitten by dog, sequela ICD-9: 906.1 ICD-10: W54.0XXS 05/02/2019 Active Encounter for general adult medical examination withou t abnormal findings ICD-9: V70.9 ICD-10: Z00.00 09/20/2019 Active Mixed hyperlipidemia ICD-9: 272.4 ICD-10: E78.2 03/08/2019 Active Other forms of dyspnea ICD-9: 786.09 ICD-10: R06.09 03/08/2019 Active Sinusitis ICD-9: 473.9 ICD-10: J32.9 09/08/2019 Active Chronic atrial fibrillation ICD-9: 427.31 ICD-10: I48.2 03/08/2019 Active Encounter for therapeutic drug level monitoring ICD-9: V58.83 ICD-10: Z51.81 03/08/2019 Active Anemia, unspecified ICD-9: 285.9 ICD-10: D64.9 06/14/2019 Active 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.2 ICD-10: L90.5 06/14/2019 Active Generalized anxiety disorder ICD-9: 300.02 ICD-10: F41.1 05/13/2019 Active Hypothyroidism, unspecified ICD-9: 244.9 ICD-10: E03.9 03/08/2019 Active Muscle weakness (generalized) ICD-9: 728.87 ICD-10: M62.81 05/13/2019 Active Other fatigue ICD-9: 780.79 ICD-10: R53.83 05/13/2019 Active Abrasion of left upper arm, sequela ICD-9: 906.2 ICD-10: S40.812S 05/02/2019 Active Abrasion of right upper arm, sequela ICD-9: 906.2 ICD-10: S40.811S 05/02/2019 Active Pain in right wrist ICD-9: 719.43 ICD-10: M25.531 05/02/2019 Active Hypertension Unknown 03/08/2019 Active Abnormal findings on diagnostic imaging of heart and c oronary circulation ICD-9: 794.39 ICD-10: R93.1 03/08/2019 Active Medications Medication Codes Instructions Start Date Stop Date Status Fill Instructions losartan 100 mg tablet RxNorm: 960368 1 Tablet(s) Oral QD 11/10/2019 02/08/2020 Active isosorbide mononitrate ER 30 mg tablet,extended release 24 h r RxNorm: 834775 TABLET(S) 1 TABLET(S) PO NEEDED 11/10/2019 05/08/2020 Active Patient requests 90 days supply carvedilol 25 mg tablet RxNorm: 250016 1 Tablet(s) Oral two antolin es a day 11/10/2019 05/08/2020 Active Coumadin 2 mg tablet RxNorm: 826157 1 Tablet(s) Oral on and Thursday11/10/2019 No Stop Date Active levothyroxine 50 mcg tablet RxNorm: 352600 1 Tablet(s) Oral QD 10/2305/08/2020 Active Coumadin 4 mg tablet RxNorm: 319911 1 Tablet(s) Oral Thursday11/10/2019 11/10/2019 Inactive losartan 100 mg tablet RxNorm: 844791 1 Tablet(s) Oral QD 11/10/2019 11/09/2019 Inactive losartan 50 mg tablet RxNorm: 728755 2 Tablet(s) Oral QD 11/01/2019 1 01/10/2019 Inactive potassium chloride ER 10 mEq capsule,extended release RxNorm : 777371 1 Capsule(s) Oral QD 10/26/2019 10/26/2019 Inactive potassium chloride ER 10 mEq tablet,extended release RxNorm: 435969 1 TABLET(S) ORAL QD 10/22/2019 04/18/2020 Active Replaces PA on 1 0MEQ Capsules Aspir-81 mg tablet,delayed release RxNorm: 681255 1 Tablet(s) O ral QD 10/11/2019 No Stop Date Active cyclobenzaprine 5 mg tablet RxNorm: 503018 1 Tablet(s) Oral two times a day as needed for muscle spasm 10/11/2019 No Stop Date Active Coumadin 4 mg tablet RxNorm: 535821 1 Tablet(s) Oral Mo through Thursday and 1/2 tablet (2mg) on Sat/Sun 10/11/2019 11/09/2019 Inactive potassium chloride ER 10 mEq tablet,extended release RxNorm: 195633 1 Tablet(s) Oral QD 09/22/2019 09/21/2019 Inactive Replaces PA on 1 0MEQ Capsules potassium chloride ER 10 mEq tablet,extended release RxNorm: 475215 1 Tablet(s) Oral QD 09/22/2019 10/10/2019 Inactive Replaces PA on 1 0MEQ Capsules potassium chloride ER 10 mEq capsule,extended release RxNorm : 940823 1 Capsule(s) Oral QD 09/21/2019 09/21/2019 Inactive carvedilol 25 mg tablet RxNorm: 612895 1 Tablet(s) Oral two antolin es a day 08/23/2019 11/09/2019 Inactive isosorbide mononitrate ER 30 mg tablet,extended release 24 h r RxNorm: 619944 TABLET(S) 1 TABLET(S) PO NEEDED 08/22/2019 11/09/2019 Inactive Patient requests 90 days supply isosorbide mononitrate ER 30 mg tablet,extended release 24 h r RxNorm: 537269 Tablet(s) 1 TABLET(S) PO NEEDED 08/16/2019 08/21/2019 Inactive Patient requests 90 days supply levothyroxine 50 mcg tablet RxNorm: 019292 1 Tablet(s) PO QD 201811/09/2019 Inactive isosorbide mononitrate ER 30 mg tablet,extended release 24 h r RxNorm: 949609 Tablet(s) 1 TABLET(S) PO NEEDED 06/27/2019 08/15/2019 Inactive Patient requests 90 days supply isosorbide mononitrate ER 30 mg tablet,extended release 24 h r RxNorm: 291068 1 Tablet(s) PO QD as needed 06/27/2019 06/27/2019 Inactive Neris ent requests 90 days supply carvedilol 25 mg tablet RxNorm: 289671 1 TABLET(S) PO BID 06/27/2019 08/22/2019 Inactive furosemide 40 mg tablet RxNorm: 293353 1 Tablet(s) PO QAM 06/21/2019 12/17/2019 Active carvedilol 25 mg tablet RxNorm: 908993 1 Tablet(s) PO BID 05/13/2019 06/26/2019 Inactive Xanax 0.25 mg tablet RxNorm: 117821 1/2 Tablet(s) PO Q6H as needed 05/13/2019 09/07/2019 Inactive levothyroxine 50 mcg tablet RxNorm: 621581 1 Tablet(s) PO QD 201808/07/2019 Inactive losartan 50 mg tablet RxNorm: 744556 1 Tablet(s) PO QD 04/26/2019 Inactive losartan 50 mg tablet RxNorm: 413156 1 Tablet(s) PO QD 04/20/201901/2019 Inactive pravastatin 40 mg tablet RxNorm: 174254 1 Tablet(s) PO QD 04/07/2019 06/05/2019 Inactive isosorbide mononitrate ER 30 mg tablet,extended release 24 h r RxNorm: 025593 1 Tablet(s) PO as needed 04/07/2019 04/06/2019 Inactive isosorbide mononitrate ER 30 mg tablet,extended release 24 h r RxNorm: 570177 1 TABLET(S) PO NEEDED 04/07/2019 06/26/2019 Inactive Patient requests 90 days supply losartan 50 mg tablet RxNorm: 057347 1 Tablet(s) PO QD 03/22/2019 Inactive carvedilol 25 mg tablet RxNorm: 058498 1 Tablet(s) PO BID No Start Date 05/12/2019 Inactive losartan 50 mg tablet RxNorm: 320330 1 Tablet(s) PO QD No Start Date 03/21/2019 Inactive Ventolin HFA 90 mcg/actuation aerosol inhaler RxNorm: 884690 1-2 Puff(s) INH as needed No Start Date 09/07/2019 Inactive furosemide 40 mg tablet RxNorm: 965238 1 Tablet(s) PO QAM No Start Date 06/20/2019 Inactive pravastatin 40 mg tablet RxNorm: 079279 1 Tablet(s) PO QD No Start Date 04/06/2019 Inactive Coumadin 2 mg tablet RxNorm: 195692 1 Tablet(s) PO Mon, Fri, Sat and Sun then 2 tablets (4mg) on , Thu and No Start Date 10/10/2019 Inactive isosorbide mononitrate ER 30 mg tablet,extended release 24 h r RxNorm: 292941 Tablet(s) PO as needed No Start Date 04/06/2019 Inactive Women's Multivitamin 18 mg iron-400 mcg-500 mg tablet RxNorm : 1 Tablet(s) PO QD No Start Date 09/07/2019 Inactive Vitamin D3 1000 units Capsule RxNorm: 3 Capsule(s) PO QD No St art Date 09/07/2019 Inactive vitamin B complex capsule RxNorm: 1 Capsule(s) PO QD No Start Date 09/07/2019 Inactive potassium chloride ER 10 mEq capsule,extended release RxNorm : 680720 1 Capsule(s) PO QD No Start Date 09/20/2019 Inactive levothyroxine 50 mcg tablet RxNorm: 055968 1 Tablet(s) PO QD No Sta rt Date 04/25/2019 Inactive Medication Administered No Medication Administered data Immunizations Vaccine Codes Date Status Influenza CVX: 135 07/02/2019 Results Observation Observation Code Item Item Code Result Date S ervice Location PT 2090914 PT 31.4 Seconds 10/26/2019 Unknow n PT 4545705 INR 2.9 10/26/2019 Unknown PT 2037930 PT 17.6 Seconds 10/11/2019 Unknow n PT 0393298 INR 1.4 10/11/2019 Unknown PT 9254253 PT 23.7 Seconds 09/08/2019 Unknow n PT 1252271 INR 2.0 09/08/2019 Unknown PT 7356959 PT 23.2 Seconds 07/29/2019 Unknow n PT 6207410 INR 2.0 07/29/2019 Unknown PT 1452374 PT 14.3 Seconds 07/18/2019 Unknow n PT 6306589 INR 1.1 07/18/2019 [place] [address] Glucose 75 mg/dL 07/06 [place] [address] CREATININE 0.61 mg/dL [place] [address] BUN 15 mg/dL 07/06 [place] [address] SODIUM 142 mmol/L 06/23 [place] [address] POTASSIUM 4.0 mmol/L 06/23 [place] [address] CHLORIDE 106 mmol/L 06/23 [place] [address] Bicarbonate 28 mmol/L [place] [address] AGAP 8 mmol/L 07/06 [place] [address] CALCIUM 9.3 mg/dL 07/06 Unknown PT [id number] PT 17.4 Seconds 07/06/2019 Unknow n PT 1725081 INR 1.4 07/06/2019 Unknown GFR CALC 3253309 GFR Non Afr Amr >60 mL/min 07/06/2019 Un known GFR CALC [id number] GFR Afr Amr >60 mL/min 07/06/2019 Unknow n COMPLETE BLOOD COUNT 2537303 WBC 4.7 10e9/L 07/06/20 19 Unknown COMPLETE BLOOD COUNT [id number] RBC 4.19 10e12/L 2018 Unknown COMPLETE BLOOD COUNT 4618995 HEMOGLOBIN 12.6 g/dL 07/06/20 19 Unknown COMPLETE BLOOD COUNT 3409903 HEMATOCRIT 39.4 % 07/06/20 19 Unknown COMPLETE BLOOD COUNT 7129545 MCV 94.0 fL 9 Unknown COMPLETE BLOOD COUNT 1865683 MCH 30.1 pg 9 Unknown COMPLETE BLOOD COUNT 0202309 MCHC 32.0 g/dL 9 Unknown COMPLETE BLOOD COUNT 9086120 PLATELET COUNT 160 10e9/L Unknown COMPLETE BLOOD COUNT 9914076 Mean Plt Volume 11.0 fL Unknown COMPLETE BLOOD COUNT 1765629 Neut Auto 56.6 % 9 Unknown COMPLETE BLOOD COUNT 9122668 Lymph Auto 27.0 % 07/06/20 19 Unknown COMPLETE BLOOD COUNT 4913703 [place] Auto 13.7 % 9 Unknown COMPLETE BLOOD COUNT 8954617 RDW 14.6 % 9 Unknown COMPLETE BLOOD COUNT 9275397 Eos Auto 2.1 % 9 Unknown COMPLETE BLOOD COUNT 9393901 Baso Auto 0.6 % 9 Unknown COMPLETE BLOOD COUNT 0762190 Neutrophil Abs 2.66 10e9/L Unknown COMPLETE BLOOD COUNT 6052641 Lymphocyte Abs 1.27 10e9/L Unknown COMPLETE BLOOD COUNT 6887417 Monocyte Abs 0.64 10e9/L 06/23 Unknown COMPLETE BLOOD COUNT 7311166 Eosinophil Abs 0.10 10e9/L Unknown COMPLETE BLOOD COUNT 7693242 RDW-SD 48.7 fL 9 Unknown COMPLETE BLOOD COUNT 1597848 Basophil Abs 0.03 10e9/L 06/23 Unknown COMPLETE BLOOD COUNT 5941968 WBC 4.6 10e9/L 06/14/20 19 Unknown COMPLETE BLOOD COUNT [id number] RBC 4.16 10e12/L 2018 Unknown COMPLETE BLOOD COUNT 2425920 HEMOGLOBIN 12.6 g/dL 06/14/20 19 Unknown COMPLETE BLOOD COUNT 2034450 HEMATOCRIT 39.1 % 06/14/20 19 Unknown COMPLETE BLOOD COUNT 4813418 MCV 94.0 fL 9 Unknown COMPLETE BLOOD COUNT 0588203 MCH 30.3 pg 9 Unknown COMPLETE BLOOD COUNT 0562726 MCHC 32.2 g/dL 9 Unknown COMPLETE BLOOD COUNT 8062201 PLATELET COUNT 167 10e9/L Unknown COMPLETE BLOOD COUNT 8695158 Mean Plt Volume 10.9 fL Unknown COMPLETE BLOOD COUNT 4393093 Neut Auto 59.6 % 9 Unknown COMPLETE BLOOD COUNT 8061936 Lymph Auto 24.1 % 06/14/20 19 Unknown COMPLETE BLOOD COUNT 9043747 [place] Auto 14.0 % 9 Unknown COMPLETE BLOOD COUNT 1622726 RDW 14.8 % 9 Unknown COMPLETE BLOOD COUNT 9245424 Eos Auto 1.9 % 9 Unknown COMPLETE BLOOD COUNT 7444558 Baso Auto 0.4 % 9 Unknown COMPLETE BLOOD COUNT 8438187 Neutrophil Abs 2.74 10e9/L Unknown COMPLETE BLOOD COUNT 6241647 Lymphocyte Abs 1.11 10e9/L Unknown COMPLETE BLOOD COUNT 9846348 Monocyte Abs 0.64 10e9/L 05/24 Unknown COMPLETE BLOOD COUNT 4934152 Eosinophil Abs 0.09 10e9/L Unknown COMPLETE BLOOD COUNT 1760258 RDW-SD 49.3 fL 9 Unknown COMPLETE BLOOD COUNT 3681322 Basophil Abs 0.02 10e9/L 05/24 Unknown PT [id number] PT 22.3 Seconds 06/14/2019 Unknow n PT [id number] INR 1.9 06/14/2019 Unknown COMPLETE BLOOD COUNT 7860031 WBC 4.0 10e9/L 05/13/20 19 Unknown COMPLETE BLOOD COUNT 4859110 RBC 3.82 10e12/L 2018 Unknown COMPLETE BLOOD COUNT 2445012 HEMOGLOBIN 11.5 g/dL 05/13/20 19 Unknown COMPLETE BLOOD COUNT 7920134 HEMATOCRIT 36.4 % 05/13/20 19 Unknown COMPLETE BLOOD COUNT 2483505 MCV 95.3 fL 9 Unknown COMPLETE BLOOD COUNT 0017851 MCH 30.1 pg 9 Unknown COMPLETE BLOOD COUNT 0880123 MCHC 31.6 g/dL 9 Unknown COMPLETE BLOOD COUNT 8888610 PLATELET COUNT 175 10e9/L Unknown COMPLETE BLOOD COUNT 6368098 Mean Plt Volume 10.5 fL Unknown COMPLETE BLOOD COUNT 8949485 Neut Auto 63.2 % 9 Unknown COMPLETE BLOOD COUNT 8065610 Lymph Auto 22.0 % 05/13/20 19 Unknown COMPLETE BLOOD COUNT 9733044 [place] Auto 12.1 % 9 Unknown COMPLETE BLOOD COUNT 5858789 RDW 14.9 % 9 Unknown COMPLETE BLOOD COUNT 3648210 Eos Auto 2.2 % 9 Unknown COMPLETE BLOOD COUNT 1017293 Baso Auto 0.5 % 9 Unknown COMPLETE BLOOD COUNT 0724988 Neutrophil Abs 2.53 10e9/L Unknown COMPLETE BLOOD COUNT 4155259 Lymphocyte Abs 0.88 10e9/L Unknown COMPLETE BLOOD COUNT 3326102 Monocyte Abs 0.48 10e9/L 04/24 Unknown COMPLETE BLOOD COUNT 3011814 Eosinophil Abs 0.09 10e9/L Unknown COMPLETE BLOOD COUNT 3591398 RDW-SD 49.6 fL 9 Unknown COMPLETE BLOOD COUNT 2063193 Basophil Abs 0.02 10e9/L 04/24 Unknown COMPREHENSIVE METABOLIC 17187 AST 18 U/L 2018 Unknown COMPREHENSIVE METABOLIC 87723 ALT 14 U/L 2018 Unknown COMPREHENSIVE METABOLIC 86650 BUN 15 mg/dL 2018 Unknown COMPREHENSIVE METABOLIC 02055 ALBUMIN 4.0 g/dL 2018 Unknown COMPREHENSIVE METABOLIC 85836 CHLORIDE 108 mmol/L 05/13 Unknown COMPREHENSIVE METABOLIC 06223 Bili Total 0.9 mg/dL 05/13 Unknown COMPREHENSIVE METABOLIC 21968 ALK PHOS 84 U/L 2018 Unknown COMPREHENSIVE METABOLIC 26524 SODIUM 142 mmol/L 05/13 Unknown COMPREHENSIVE METABOLIC 88072 CREATININE 0.72 mg/dL 04/24 Unknown COMPREHENSIVE METABOLIC 57785 CALCIUM 8.9 mg/dL 2018 Unknown COMPREHENSIVE METABOLIC 72481 POTASSIUM 4.0 mmol/L 05/13 Unknown COMPREHENSIVE METABOLIC 99918 Total Protein 5.5 g/dL Unknown COMPREHENSIVE METABOLIC 09538 Glucose 95 mg/dL 2018 Unknown COMPREHENSIVE METABOLIC 48964 Bicarbonate 27 mmol/L 04/24 Unknown COMPREHENSIVE METABOLIC 28514 AGAP 7 mmol/L 2018 Unknown GFR CALC 7213216 GFR Non Afr Amr >60 mL/min 05/13/2019 Un known GFR CALC 6883800 GFR Afr Amr >60 mL/min 05/13/2019 Unknow n THYROID STIMULATING HORMONE 78306 TSH 2.669 uIU/mL 05/13/2019 Unknown FREE T4 39442 T4 Free 1.19 ng/dL 05/13/2019 Unknown PT [id number] PT 24.2 Seconds 05/06/2019 Unknow n PT [id number] INR 2.1 05/06/2019 Unknown PT 5413733 PT 24.1 Seconds 03/08/2019 Unknow n PT 2372257 INR 2.9 03/08/2019 Unknown Procedures Procedure Codes Date ROUTINE VENIPUNCTURE CPT-4: 57376 11/10/2019 PROTHROMBIN TIME CPT-4: 88637 11/10/2019 PROTHROMBIN TIME CPT-4: 94512 10/26/2019 ROUTINE VENIPUNCTURE CPT-4: 01306 10/26/2019 ROUTINE VENIPUNCTURE CPT-4: 55019 10/11/2019 PT CPT-4: 0724679 10/11/2019 PPPS, initial visit CPT-4: G0438 09/20/2019 ROUTINE VENIPUNCTURE CPT-4: 43291 09/08/2019 PT CPT-4: 4895284 09/08/2019 THER/PROPH/DIAG INJ SC/IM CPT-4: 92646 09/08/2019 TRIAMCINOLONE ACET INJ NOS CPT-4: J3301 09/08/2019 ROUTINE VENIPUNCTURE CPT-4: 84878 07/29/2019 PT CPT-4: 3282651 07/29/2019 ROUTINE VENIPUNCTURE CPT-4: 57616 07/18/2019 PT CPT-4: 0129285 07/18/2019 METABOLIC PANEL TOTAL CA CPT-4: 63739 07/06/2019 COMPLETE CBC W/AUTO DIFF WBC CPT-4: 83263 07/06/2019 PROTHROMBIN TIME CPT-4: 20319 07/06/2019 ROUTINE VENIPUNCTURE CPT-4: 49312 06/14/2019 PROTHROMBIN TIME CPT-4: 25509 06/14/2019 COMPLETE CBC W/AUTO DIFF WBC CPT-4: 79291 06/14/2019 ROUTINE VENIPUNCTURE CPT-4: 35461 05/13/2019 COMPREHEN METABOLIC PANEL CPT-4: 61524 05/13/2019 COMPLETE CBC W/AUTO DIFF WBC CPT-4: 33338 05/13/2019 ASSAY THYROID STIM HORMONE CPT-4: 65841 05/13/2019 ASSAY OF FREE THYROXINE CPT-4: 58058 05/13/2019 PT CPT-4: 0496207 05/06/2019 ROUTINE VENIPUNCTURE CPT-4: 37630 05/06/2019 PT CPT-4: 1847470 04/07/2019 ROUTINE VENIPUNCTURE CPT-4: 24453 04/07/2019 ROUTINE VENIPUNCTURE CPT-4: 17759 03/08/2019 PROTHROMBIN TIME CPT-4: 66916 03/08/2019 Vital Signs Date Vital 11/03/2019 Blood Pressure 1: 142/82 Code: 8480-6 Heart Rate 1: 76 bpm Respiratory Rate: 20 bpm SpO2: 97% Temperature: 36.6 (C) / 97.9 (F) 10/31/2019 Blood Pressure 1: 170/100 Code: 8480-6 Heart Rat e 1: 70 bpm Respiratory Rate: 18 bpm 10/11/2019 Blood Pressure 1: 132/78 Code: 8480-6 Heart Rate 1: 89 bpm SpO2: 99% Temperature: 36.7 (C) / 98.1 (F) Weight: 204 lbs 09/20/2019 Blood Pressure 1: 122/68 Code: 8480-6 BMI: 35.0 Code: 06268-9 Heart Rate 1: 72 bpm Height: 5'3" Respiratory Rate: 18 bpm SpO2: 95% Tempera ture: 36.8 (C) / 98.3 (F) Weight: 201 lbs 09/08/2019 Blood Pressure 1: 118/72 Code: 8480-6 Heart Rate 1: 82 bpm SpO2: 97% Temperature: 36.3 (C) / 97.4 (F) Weight: 208 lbs 06/14/2019 Blood Pressure 1: 128/84 Code: 8480-6 Heart Rate 1: 72 bpm Respiratory Rate: 20 bpm SpO2: 98% Temperature: 36.7 (C) / 98.1 (F) We ight: 209 lbs 05/13/2019 Blood Pressure 1: 144/90 Code: 8480-6 Heart Rate 1: 88 bpm Respiratory Rate: 24 bpm SpO2: 96% Temperature: 37.1 (C) / 98.8 (F) We ight: 210 lbs 05/02/2019 Blood Pressure 1: 128/80 Code: 8480-6 Heart Rate 1: 84 bpm Respiratory Rate: 20 bpm SpO2: 95% Temperature: 36.6 (C) / 97.9 (F) We ight: 209 lbs 03/22/2019 Blood Pressure 1: 122/70 Code: 8480-6 He art Rate 1: 85 bpm 03/08/2019 Blood Pressure 1: 114/78 Code: 8480-6 BMI: 36.1 Code: 08062-6 Heart Rate 1: 76 bpm Height: 5'3" Respiratory Rate: 20 bpm SpO2: 97% Tempera ture: 37.1 (C) / 98.8 (F) Weight: 207 lbs Functional Status No Functional Status data Reason For Visit Reason For Visit Effective Dates Notes lab draw 11/10/2019 follow up 11/03/2019 headache 10/31/2019 lab draw 10/26/2019 back pain 10/11/2019 well woman exam (65+ years) 09/20/2019 Annual Welln ess sinus congestion 09/08/2019 lab draw 07/29/2019 lab draw 07/18/2019 lab draw 07/06/2019 follow up 06/14/2019 follow up 05/13/2019 lab draw 05/06/2019 follow up 05/02/2019 for wound check lab draw 04/07/2019 blood pressure check 03/22/2019 ~generic 03/08/2019 New Patient---establ ishing visit Encounters Encounter Performer Location Codes Date (13210) NURSE/OUTPATIENT VISIT EST Diagnosis: Long-term (current) use of anticoagulants, INR goal 2.0-3.0[ICD10: Z79.01] Becki Hernandez Open [employer]ATIE FIGS CPT-4: 58069 11/10/2019 ([id number]) OFFICE/OUTPATIENT VISIT EST Diagnosis: Post concussion syndrome[ICD10: F07.81] Diagnosis: Head contusion[ICD10: S00.93XA] Diagnosis: Chronic airway obstruction, not elsewhere classified[ICD10: J44.9] Becki Hernandez Open [employer]AYDE[employer]arg CPT-4: 96851 11/03/2019 ([id number]) OFFICE/OUTPATIENT VISIT EST Diagnosis: Fall as cause of accidental injury at home as place of occurrence[ICD10: W19.XXXA] Diagnosis: Headache[ICD10: R51] Diagnosis: Essential (primary) hypertension[ICD10: I10] Diagnosis: Long-term (current) use of anticoagulants, INR goal 2.0-3.0[ICD10: Z79.01] Diagnosis: Ecchymosis of left eye[ICD10: S05.12XA] Jannette Mayen PÉREZ Hernandez [employer]DE[employer] CPT-4: 51274 10/31/2019 ([id number]) NURSE/OUTPATIENT VISIT EST Diagnosis: Long-term (current) use of anticoagulants, INR goal 2.0-3.0[ICD10: Z79.01] Becki Hernandez Open [employer] CPT-4: 00850 10/26/2019 ([id number]) OFFICE/OUTPATIENT VISIT EST Diagnosis: Long-term (current) use of anticoagulants, INR goal 2.0-3.0[ICD10: Z79.01] Diagnosis: Pain in right arm[ICD10: M79.601] Diagnosis: Radiculopathy of arm[ICD10: M54.10] Jannette BLACK FIGS CPT-4: 53153 10/11/2019 ([id number]) OFFICE/OUTPATIENT VISIT EST Diagnosis: Long-term (current) use of anticoagulants, INR goal 2.0-3.0[ICD10: Z79.01] Diagnosis: Sinusitis[ICD10: J32.9] Diagnosis: Pain in right arm[ICD10: M79.601] Jannette BLACK FIGS CPT-4: 17172 09/08/2019 ([id number]) NURSE/OUTPATIENT VISIT EST Diagnosis: Chronic atrial fibrillation[ICD10: I48.2] Diagnosis: Encounter for therapeutic drug level monitoring[ICD10: Z51.81] Becki BLACK FIGS CPT-4: 61165 07/29/2019 ([id number]) NURSE/OUTPATIENT VISIT EST Diagnosis: Chronic atrial fibrillation[ICD10: I48.2] Diagnosis: Encounter for therapeutic drug level monitoring[ICD10: Z51.81] Becki BLACK FIGS CPT-4: 11517 07/18/2019 ([id number]) NURSE/OUTPATIENT VISIT EST Diagnosis: Encounter for therapeutic drug level monitoring[ICD10: Z51.81] Diagnosis: Chronic atrial fibrillation[ICD10: I48.2] Diagnosis: Essential (primary) hypertension[ICD10: I10] Becki BLACK FIGS CPT-4: 93820 07/06/2019 ([id number]) OFFICE/OUTPATIENT VISIT EST Diagnosis: Encounter for therapeutic drug level monitoring[ICD10: Z51.81] Diagnosis: Anemia, unspecified[ICD10: D64.9] Diagnosis: Bitten by dog, sequela[ICD10: W54.0XXS] 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] Becki BLACK FIGS CPT-4: 62794 06/14/2019 ([id number]) OFFICE/OUTPATIENT VISIT EST Diagnosis: Bitten by dog, sequela[ICD10: W54.0XXS] Diagnosis: Other fatigue[ICD10: R53.83] Diagnosis: Hypothyroidism, unspecified[ICD10: E03.9] Diagnosis: Muscle weakness (generalized)[ICD10: M62.81] Diagnosis: Generalized anxiety disorder[ICD10: F41.1] Jannette BLACK FIGS CPT-4: 21708 05/13/2019 ([id number]) NURSE/OUTPATIENT VISIT EST Diagnosis: Encounter for therapeutic drug level monitoring[ICD10: Z51.81] Becki BLACK FIGS CPT-4: 71398 05/06/2019 ([id number]) OFFICE/OUTPATIENT VISIT EST Diagnosis: Bitten by dog, sequela[ICD10: W54.0XXS] Diagnosis: Pain in right wrist[ICD10: M25.531] Diagnosis: Abrasion of right upper arm, sequela[ICD10: S40.811S] Diagnosis: Abrasion of left upper arm, sequela[ICD10: S40.812S] Jannette BLACK FIGS CPT-4: 69398 05/02/2019 ([id number]) NURSE/OUTPATIENT VISIT EST Diagnosis: Encounter for therapeutic drug level monitoring[ICD10: Z51.81] Becki BLACK FIGS CPT-4: 66165 04/07/2019 ([id number]) OFFICE/OUTPATIENT VISIT NEW Diagnosis: Encounter for therapeutic drug level monitoring[ICD10: Z51.81] Diagnosis: Chronic atrial fibrillation[ICD10: I48.2] Diagnosis: Essential (primary) hypertension[ICD10: I10] Diagnosis: Abnormal findings on diagnostic imaging of heart and coronary circulation[ICD10: R93.1] Diagnosis: Other forms of dyspnea[ICD10: R06.09] Diagnosis: Hypothyroidism, unspecified[ICD10: E03.9] Diagnosis: Mixed hyperlipidemia[ICD10: E78.2] Becki YOUNGBonzerDarg CPT-4: 51522 03/08/2019 Plan of Care Planned Activity Notes Codes Status Date Visit Diagnosis Plan: Post concussion syndrome Discuss ion: Discussed normal progression of slowly improving and to focus on enough sleep/drinking water/limiting screen time, etc. ICD-9 : 310.2 ICD-10 : F07.81 11/03/2019 Visit Diagnosis Plan: Chronic airway obstruction, not elsewhere classified Discussion: Scheduled to go for pulmonary rehab eval next week so can go if feeling better from concussion standpoint and then will fwup 6 weeks after starts ICD-9 : 496 ICD-10 : J44.9 11/03/2019 Appointment: Becki Black WPtel: [id number] FO[facility] UP 11/03/2019 Care Plan: CT HEAD/BRAIN W/O DYE LOINC : 24539-3 Pending 11/01/2019 Visit Diagnosis Plan: Essential (primary) hypertension Discussion: increase losartan to 2 tabs a day. will have patient follow up pending results of ct scan. instructed to go to ED with any stroke symptoms such as dysphasia, weakness, etc. ICD-9 : 401.9 ICD-10 : I10 10/31/2019 Visit Diagnosis Plan: Headache Discussion: discussed t hat could be r/t htn or concussion so instructed to increase losartan to 2 tabs daily and will recheck ct scan. instructed to take tylenol prn pain and push fluids. rest as much as possible and back to ED with any change in mental status, vision, etc. minimize amount of screen time. ICD-9 : 784.0 ICD-10 : R51 10/31/2019 Visit Diagnosis Plan: Ecchymosis of left eye Discussio n: will proceed with updated ct of head/brain without contrast to rule out a new bleed or pressure ICD-9 : 921.0 ICD-10 : S05.12XA 10/31/2019 Appointment: Jannette Mayen [address] [place], [place] [id number] Hospital Follow Up 10/31/2019 Patient Education: High Blood Pressure Co mpleted 10/31/2019 Patient Education: losartan- [employer] Coupon [id number] https://www.[employer].eleni/samplemd/resources/getResource/61/3b067113-3z51-7472-8u Completed 10/31/2019 Appointment: Becki Black WPtel: [phone] [id number] FOLLOW UP 10/26/2019 Visit Diagnosis Plan: Long-term (current ) use of anticoagulants, INR goal 2.0-3.0 Discussion: will update pt/inr ICD-9 : V58.61 ICD-10 : Z79.01 10/11/2019 Visit Diagnosis Plan: Radiculopathy of arm Discussion: flexeril prescribed to take as needed. will start at low dose but instructed patient to call office if not effective and will increase mg dose. PT ordered at [facility] to assist with pain. if no improvement or worsening from PT, will need imaging. ICD-9 : 723.4 ICD-10 : M54.10 10/11/2019 Appointment: Jannette Mayen [address] [place], [place] [id number] ACUTE ILLNESS 10/11/2019 Patient Education: cyclobenzaprine- [employer] Coupon [id number] https://www.[employer].eleni/samplemd/resources/getResource/61/99u1x3u9-13p8-4l77-74 Completed 10/11/2019 Visit Diagnosis Plan: Bitten by dog, sequela Discussio n: Still seeing counselor Still doing therapy--left 4th finger still not agile enough to play violin and feels like pinched nerve in neck on right--dscussed stretches, massage, accupuncture---patient had hired estate planning attorney ICD-9 : 906.1 ICD-10 : W54.0XXS 09/20/2019 Visit Diagnosis Plan: Encounter for [facility] adult medical examination without abnormal findings Discussion: Mediterranean diet Combinati on of cardio and weight bearing exercise Had flu shot Update mammogram ICD-9 : V70.9 ICD-10 : Z00.00 09/20/2019 Visit Diagnosis Plan: Other forms of dyspnea Discussio n: Check PFT ICD-9 : 786.09 ICD-10 : R06.09 09/20/2019 Visit Diagnosis Plan: Mixed hyperlipidemia Discussion: Return next week for fasting lipids ICD-9 : 272.4 ICD-10 : E78.2 09/20/2019 Appointment: Becki Black WPtel: [address] [place] [address] Annual Well Visit 09/20/2019 Visit Diagnosis Plan: Sinusitis Discussion: 40 mg brian log given in office due to symptoms. instructed to take zyrtec daily and then prn in the future. call office on thursday if no relief or worsening symptoms. if no improvement, she will need to go back to opthalmologist. ICD-9 : 473.9 ICD-10 : J32.9 09/08/2019 Visit Diagnosis Plan: Pain in right arm Discussion: st eroid injection to assist with shooting arm pain. continue with therapy but call office if no improvement or worsening. ICD-9 : 729.5 ICD-10 : M79.601 09/08/2019 Visit Diagnosis Plan: Long-term (current ) use of anticoagulants, INR goal 2.0-3.0 Discussion: updated pt/inr ordered ICD-9 : V58.61 ICD-10 : Z79.01 09/08/2019 Appointment: Jannette Mayen [address] [place] [address] ACUTE ILLNESS 09/08/2019 Appointment: Becki Black WPtel: [address] [place] [address] US CANCELED 08/16/2019 Appointment: Becki Black WPtel: [address] [place] [address] US LAB 07/29/2019 Appointment: Becki Black WPtel: [address] [place] [address] US LAB 07/18/2019 Appointment: Becki Black WPtel: [address] [place] [address] US LAB 07/06/2019 Visit Diagnosis Plan: Bitten by dog, sequela Gregoria n: Is seeing counselor which is helping Has started PT for left wrist ICD-9 : 906.1 ICD-10 : W54.0XXS 06/14/2019 Visit Diagnosis Plan: Scar conditions and fibrosis of skin Discussion: Discussed Vitamin E or scar gel topically with gentle massage Fwup 3mos ICD-9 : 709.2 ICD-10 : L90.5 06/14/2019 Visit Diagnosis Plan: Encounter for therapeutic drug l evel monitoring Discussion: PT/INR drawn ICD-9 : V58.83 ICD-10 : Z51.81 06/14/2019 Visit Diagnosis Plan: Anemia, unspecified Discussion: CBC drawn ICD-9 : 285.9 ICD-10 : D64.9 06/14/2019 Appointment: Becki Black WPtel: [phone] [id number] FOLLOW UP 06/14/2019 Visit Diagnosis Plan: Generalized anxiety disorder Dis cussion: xanax prescribed to take as directed. discussed side effects with patient and to start with 1/2 tab first and increase to full tab prn if needed. discussed risk of dependence of medication and she verbalized understanding. informed patient to not take hydrocodone with xanax but patient has stopped taking the hydrocodone several days ago. will refer to [facility] as well to discuss concerns. ICD-9 : 300.02 ICD-10 : F41.1 05/13/2019 Visit Diagnosis Plan: Muscle weakness (generalized) Di scussion: zyrtec to take daily to cover for allergies due to TM appearance. ICD-9 : 728.87 ICD-10 : M62.81 05/13/2019 Visit Diagnosis Plan: Bitten by dog, sequela Discussio n: wounds were cleansed to right arm with neosporin applied and covered with telfa and bandaid. instructed to continue with dressing changes until areas scab and then can leave open to air. ICD-9 : 906.1 ICD-10 : W54.0XXS 05/13/2019 Visit Diagnosis Plan: Other fatigue Discussion: will o albaer updated blood work to be completed today. ICD-9 : 780.79 ICD-10 : R53.83 05/13/2019 Appointment: Jannette Mayen [address] [place], [place] [id number] FOLLOW UP 05/13/2019 Patient Education: carvedilol- [employer] Coupon [id number] https://www.[employer].com/samplemd/resources/getResource/61/70e2s973-8iba-6253-0s Completed 05/13/2019 Patient Education: Xanax- [employer] Coupon [id number] https://www.[employer].com/samplemd/resources/getResource/61/6873f2p1-2q96-6q2c-l8 1e-8i88433215l6.pdf Completed 05/13/2019 Appointment: Becki Black WPtel: [address] [place], [place] [id number] US LAB 05/06/2019 Visit Diagnosis Plan: Abrasion of right upper arm, seq uela Discussion: abrasions were cleansed with wound cleanser and neosporin applied along with telfa and kerlix. patient tolerated well. keep area clean and dry. apply neosporin daily along with telfa dressing and cover with gauze/kerlix. call office with any s/s infection. ICD-9 : 906.2 ICD-10 : S40.811S 05/02/2019 Visit Diagnosis Plan: Bitten by dog, sequela Discussio n: had tetanus shot yesterday in ER and family contacted vet for rabies vaccine record on dog. instructed patient to purchase stool softeners and take daily due to side effects of hydrocodone. increase water intake. take a probiotic bid to prevent gi upset/yeast infections from augmentin. has plans for removal of sutures in ED in 1 week. ICD-9 : 906.1 ICD-10 : W54.0XXS 05/02/2019 Visit Diagnosis Plan: Pain in right wrist Discussion: xray ordered of wrist to rule out acute fracture. will send results to dr. portillo at [facility]. ICD-9 : 719.43 ICD-10 : M25.531 05/02/2019 Appointment: Jannette Mayen [address] [place], [place] [id number] ACUTE ILLNESS 05/02/2019 Care Plan: X-RAY EXAM OF WRIST right LOINC : 3 [id number] Pending 05/02/2019 Appointment: Becki Black WPtel: [facility] US LAB 04/07/2019 Appointment: Becki Black WPtel: [phone] [facility] BP CHECK 03/22/2019 Visit Diagnosis Plan: Abnormal findings on diagnostic imaging of heart and coronary circulation Discussion: Discussed reason to use imdu r routinely to see if helps with dyspnea on exertion as well as chest pain episodes Patient will return in 2 weeks after taking imdur routinely for a BP check ICD-9 : 794.39 ICD-10 : R93.1 03/08/2019 Visit Diagnosis Plan: Other forms of dyspnea Discussio n: Use imdur routinely and has started an exercise program ICD-9 : 786.09 ICD-10 : R06.09 03/08/2019 Visit Diagnosis Plan: Hypothyroidism, unspecified Disc ussion: Obtain most recent lab and previous medical records ICD-9 : 244.9 ICD-10 : E03.9 03/08/2019 Visit Diagnosis Plan: Encounter for therapeutic drug l evel monitoring Discussion: PT/INR drawn ICD-9 : V58.83 ICD-10 : Z51.81 03/08/2019 Visit Diagnosis Plan: Mixed hyperlipidemia Discussion: Mediterranean diet Combination of cardio and weight bearing exercise Just had lab done in January ICD-9 : 272.4 ICD-10 : E78.2 03/08/2019 Visit Diagnosis Plan: Chronic atrial fibrillation Disc ussion: Sees Cardiology this afternoon Rate controlled ICD-9 : 427.31 ICD-10 : I48.2 03/08/2019 Visit Diagnosis Plan: Essential (primary) hypertension Discussion: Stable ICD-9 : 401.9 ICD-10 : I10 03/08/2019 Appointment: Beck[facility] Black WPtel: [phone] [id number] [facility] 03/08/2019 Instructions No Instructions Medical Equipment No Medical Equipment data Health Concerns Section Health Concerns data not found Goals Section Goals data not found Interventions Section Interventions data not found Health Status Evaluations/Outcomes Section Health Status Evaluations/Outcomes data not found Advance Directives No Advance Directive data
--- OUTSIDE RECORDS SUMMARY | 2019-11-24 06:49 | XMS REPORT | CCD ---
Author Author Tricia Black D.O. Organization [facility] Address [address] [place] [address] Phone Care Team Providers Care Assistant Professor Of History Name Role Phone PP Unavailable CCM Unavailable Summary Purpose Interface Exchange Insurance Providers Payer name Policy type / Coverage type Covered democrat ID Effective Begin Date Effective End Date WPS MEDICARE PART B [place] Medicare Part B [id number] Unknown Unknown [facility] Medicare Part B [id number] Unknown Unknown Family history Grandmother Diagnosis Age [...] Unknown Retired 03/08/[address]: 492521147 Has never smoked or chewed tobacco 03/08/[address]: 528798 Currently drinks alcohol 03/08 Has the patient [...] Fill Instructions losartan 100 mg tablet RxNorm: 803068 1 Tablet(s) Oral QD 11/10/2019 02/08/2020 Active isosorbide mononitrate ER 30 mg tablet,extended release 24 h r RxNorm: 824798 TABLET(S) 1 TABLET(S) PO NEEDED 11/10/2019 05/08/2020 Active Patient requests 90 days supply carvedilol 25 mg tablet RxNorm: 551535 1 Tablet(s) Oral two antolin es a day 11/10/2019 05/08/2020 Active Coumadin 2 mg tablet RxNorm: 955297 1 Tablet(s) Oral on and Thursday11/10/2019 No Stop Date Active levothyroxine 50 mcg tablet RxNorm: 644729 1 Tablet(s) Oral QD 10/2305/08/2020 Active Coumadin 4 mg tablet RxNorm: 616738 1 Tablet(s) Oral Thursday11/10/2019 11/10/2019 Inactive losartan 100 mg tablet RxNorm: 206513 1 Tablet(s) Oral QD 11/10/2019 11/09/2019 Inactive losartan 50 mg tablet RxNorm: 966576 2 Tablet(s) Oral QD 11/01/2019 1 01/10/2019 Inactive potassium chloride ER 10 mEq capsule,extended release RxNorm : 681324 1 Capsule(s) Oral QD 10/26/2019 10/26/2019 Inactive potassium chloride ER 10 mEq tablet,extended release RxNorm: 297341 1 TABLET(S) ORAL QD 10/22/2019 04/18/2020 Active Replaces PA on 1 0MEQ Capsules Aspir-81 mg tablet,delayed release RxNorm: 706226 1 Tablet(s) O ral QD 10/11/2019 No Stop Date Active cyclobenzaprine 5 mg tablet RxNorm: 108444 1 Tablet(s) Oral two times a day as needed for muscle spasm 10/11/2019 No Stop Date Active Coumadin 4 mg tablet RxNorm: 951091 1 Tablet(s) Oral Mo through Thursday and 1/2 tablet (2mg) on Sat/Sun 10/11/2019 11/09/2019 Inactive potassium chloride ER 10 mEq tablet,extended release RxNorm: 349536 1 Tablet(s) Oral QD 09/22/2019 09/21/2019 Inactive Replaces PA on 1 0MEQ Capsules potassium chloride ER 10 mEq tablet,extended release RxNorm: 505299 1 Tablet(s) Oral QD 09/22/2019 10/10/2019 Inactive Replaces PA on 1 0MEQ Capsules potassium chloride ER 10 mEq capsule,extended release RxNorm : 545348 1 Capsule(s) Oral QD 09/21/2019 09/21/2019 Inactive carvedilol 25 mg tablet RxNorm: 546157 1 Tablet(s) Oral two antolin es a day 08/23/2019 11/09/2019 Inactive isosorbide mononitrate ER 30 mg tablet,extended release 24 h r RxNorm: 752233 TABLET(S) 1 TABLET(S) PO NEEDED 08/22/2019 11/09/2019 Inactive Patient requests 90 days supply isosorbide mononitrate ER 30 mg tablet,extended release 24 h r RxNorm: 752211 Tablet(s) 1 TABLET(S) PO NEEDED 08/16/2019 08/21/2019 Inactive Patient requests 90 days supply levothyroxine 50 mcg tablet RxNorm: 400077 1 Tablet(s) PO QD 201811/09/2019 Inactive isosorbide mononitrate ER 30 mg tablet,extended release 24 h r RxNorm: 373846 Tablet(s) 1 TABLET(S) PO NEEDED 06/27/2019 08/15/2019 Inactive Patient requests 90 days supply isosorbide mononitrate ER 30 mg tablet,extended release 24 h r RxNorm: 264217 1 Tablet(s) PO QD as needed 06/27/2019 06/27/2019 Inactive Neris ent requests 90 days supply carvedilol 25 mg tablet RxNorm: 195936 1 TABLET(S) PO BID 06/27/2019 08/22/2019 Inactive furosemide 40 mg tablet RxNorm: 611054 1 Tablet(s) PO QAM 06/21/2019 12/17/2019 Active carvedilol 25 mg tablet RxNorm: 254638 1 Tablet(s) PO BID 05/13/2019 06/26/2019 Inactive Xanax 0.25 mg tablet RxNorm: 400018 1/2 Tablet(s) PO Q6H as needed 05/13/2019 09/07/2019 Inactive levothyroxine 50 mcg tablet RxNorm: 543252 1 Tablet(s) PO QD 201808/07/2019 Inactive losartan 50 mg tablet RxNorm: 251271 1 Tablet(s) PO QD 04/26/2019 Inactive losartan 50 mg tablet RxNorm: 541122 1 Tablet(s) PO QD 04/20/201901/2019 Inactive pravastatin 40 mg tablet RxNorm: 681106 1 Tablet(s) PO QD 04/07/2019 06/05/2019 Inactive isosorbide mononitrate ER 30 mg tablet,extended release 24 h r RxNorm: 287989 1 Tablet(s) PO as needed 04/07/2019 04/06/2019 Inactive isosorbide mononitrate ER 30 mg tablet,extended release 24 h r RxNorm: 394861 1 TABLET(S) PO NEEDED 04/07/2019 06/26/2019 Inactive Patient requests 90 days supply losartan 50 mg tablet RxNorm: 174609 1 Tablet(s) PO QD 03/22/2019 Inactive carvedilol 25 mg tablet RxNorm: 916441 1 Tablet(s) PO BID No Start Date 05/12/2019 Inactive losartan 50 mg tablet RxNorm: 252276 1 Tablet(s) PO QD No Start Date 03/21/2019 Inactive Ventolin HFA 90 mcg/actuation aerosol inhaler RxNorm: 350848 1-2 Puff(s) INH as needed No Start Date 09/07/2019 Inactive furosemide 40 mg tablet RxNorm: 504838 1 Tablet(s) PO QAM No Start Date 06/20/2019 Inactive pravastatin 40 mg tablet RxNorm: 887038 1 Tablet(s) PO QD No Start Date 04/06/2019 Inactive Coumadin 2 mg tablet RxNorm: 555302 1 Tablet(s) PO Mon, Fri, Sat and Sun then 2 tablets (4mg) on , Thu and No Start Date 10/10/2019 Inactive isosorbide mononitrate ER 30 mg tablet,extended release 24 h r RxNorm: 132898 Tablet(s) PO as needed No Start Date [...] ER 10 mEq capsule,extended release RxNorm : 741959 1 Capsule(s) PO QD No Start Date 09/20/2019 Inactive levothyroxine 50 mcg tablet RxNorm: 726213 1 Tablet(s) PO QD No Sta rt Date 04/25/2019 Inactive Medication Administered No Medication Administered data Immunizations Vaccine Codes Date Status Influenza CVX: 135 07/02/2019 Results Observation Observation Code Item Item Code Result Date S ervice Location PT 0195235 PT 31.4 Seconds 10/26/2019 Unknow n PT [id number] INR 2.9 10/26/2019 Unknown PT 8783215 PT 17.6 Seconds 10/11/2019 Unknow n PT 2774963 INR 1.4 10/11/2019 Unknown PT 8915052 PT 23.7 Seconds 09/08/2019 Unknow n PT [id number] INR 2.0 09/08/2019 Unknown PT [id number] PT 23.2 Seconds 07/29/2019 Unknow n PT 1744901 INR 2.0 07/29/2019 Unknown PT 7530023 PT 14.3 Seconds 07/18/2019 Unknow n PT [id number] INR 1.1 07/18/2019 [place] [address] Glucose 75 mg/dL 07/06 [place] [address] CREATININE 0.61 mg/dL [place] [address] BUN 15 mg/dL 07/06 [place] [address] SODIUM 142 mmol/L 06/23 [place] [address] POTASSIUM 4.0 mmol/L 06/23 [place] [address] CHLORIDE 106 mmol/L 06/23 [place] [address] Bicarbonate 28 mmol/L [place] [address] AGAP 8 mmol/L 07/06 [place] [address] CALCIUM 9.3 mg/dL 07/06 Unknown PT 3476339 PT 17.4 Seconds 07/06/2019 Unknow n PT [id number] INR 1.4 07/06/2019 Unknown GFR CALC 4319886 GFR Non Afr Amr >60 mL/min 07/06/2019 Un known GFR CALC 2367101 GFR Afr Amr >60 mL/min 07/06/2019 Unknow n COMPLETE BLOOD COUNT 3465807 WBC 4.7 10e9/L 07/06/20 19 Unknown COMPLETE BLOOD COUNT [id number] RBC 4.19 10e12/L 2018 Unknown COMPLETE BLOOD COUNT 8314764 HEMOGLOBIN 12.6 g/dL 07/06/20 19 Unknown COMPLETE BLOOD COUNT 0601504 HEMATOCRIT 39.4 % 07/06/20 19 Unknown COMPLETE BLOOD COUNT [id number] MCV 94.0 fL 9 Unknown COMPLETE BLOOD COUNT 6437461 MCH 30.1 pg 9 Unknown COMPLETE BLOOD COUNT 6957392 MCHC 32.0 g/dL 9 Unknown COMPLETE BLOOD COUNT 8406351 PLATELET COUNT 160 10e9/L Unknown COMPLETE BLOOD COUNT 1600934 Mean Plt Volume 11.0 fL Unknown COMPLETE BLOOD COUNT 1998627 Neut Auto 56.6 % 9 Unknown COMPLETE BLOOD COUNT 1820254 Lymph Auto 27.0 % 07/06/20 19 Unknown COMPLETE BLOOD COUNT 6003429 Atlantic Auto 13.7 % 9 Unknown COMPLETE BLOOD COUNT 4661643 RDW 14.6 % 9 Unknown COMPLETE BLOOD COUNT 6048970 Eos Auto 2.1 % 9 Unknown COMPLETE BLOOD COUNT 4965668 Baso Auto 0.6 % 9 Unknown COMPLETE BLOOD COUNT 4679922 Neutrophil Abs 2.66 10e9/L Unknown COMPLETE BLOOD COUNT 5652422 Lymphocyte Abs 1.27 10e9/L Unknown COMPLETE BLOOD COUNT 1345809 Monocyte Abs 0.64 10e9/L 06/23 Unknown COMPLETE BLOOD COUNT 4228839 Eosinophil Abs 0.10 10e9/L Unknown COMPLETE BLOOD COUNT 1434423 RDW-SD 48.7 fL 9 Unknown COMPLETE BLOOD COUNT 0450683 Basophil Abs 0.03 10e9/L 06/23 Unknown COMPLETE BLOOD COUNT 3136868 WBC 4.6 10e9/L 06/14/20 19 Unknown COMPLETE BLOOD COUNT [id number] RBC 4.16 10e12/L 2018 Unknown COMPLETE BLOOD COUNT 3231938 HEMOGLOBIN 12.6 g/dL 06/14/20 19 Unknown COMPLETE BLOOD COUNT 4249152 HEMATOCRIT 39.1 % 06/14/20 19 Unknown COMPLETE BLOOD COUNT 3963548 MCV 94.0 fL 9 Unknown COMPLETE BLOOD COUNT 9337378 MCH 30.3 pg 9 Unknown COMPLETE BLOOD COUNT 8096446 MCHC 32.2 g/dL 9 Unknown COMPLETE BLOOD COUNT 4088499 PLATELET COUNT 167 10e9/L Unknown COMPLETE BLOOD COUNT 7293584 Mean Plt Volume 10.9 fL Unknown COMPLETE BLOOD COUNT 5240007 Neut Auto 59.6 % 9 Unknown COMPLETE BLOOD COUNT 9627101 Lymph Auto 24.1 % 06/14/20 19 Unknown COMPLETE BLOOD COUNT 3240191 Atlantic Auto 14.0 % 9 Unknown COMPLETE BLOOD COUNT 2225516 RDW 14.8 % 9 Unknown COMPLETE BLOOD COUNT 1205403 Eos Auto 1.9 % 9 Unknown COMPLETE BLOOD COUNT 6298123 Baso Auto 0.4 % 9 Unknown COMPLETE BLOOD COUNT 0315023 Neutrophil Abs 2.74 10e9/L Unknown COMPLETE BLOOD COUNT 7078732 Lymphocyte Abs 1.11 10e9/L Unknown COMPLETE BLOOD COUNT 8050747 Monocyte Abs 0.64 10e9/L 05/24 Unknown COMPLETE BLOOD COUNT [id number] Eosinophil Abs 0.09 10e9/L Unknown COMPLETE BLOOD COUNT 0563539 RDW-SD 49.3 fL 9 Unknown COMPLETE BLOOD COUNT 9480586 Basophil Abs 0.02 10e9/L 05/24 Unknown PT [id number] PT 22.3 Seconds 06/14/2019 Unknow n PT [id number] INR 1.9 06/14/2019 Unknown COMPLETE BLOOD COUNT 6394666 WBC 4.0 10e9/L 05/13/20 19 Unknown COMPLETE BLOOD COUNT 7247463 RBC 3.82 10e12/L 2018 Unknown COMPLETE BLOOD COUNT 5966085 HEMOGLOBIN 11.5 g/dL 05/13/20 19 Unknown COMPLETE BLOOD COUNT 8838045 HEMATOCRIT 36.4 % 05/13/20 19 Unknown COMPLETE BLOOD COUNT 7375287 MCV 95.3 fL 9 Unknown COMPLETE BLOOD COUNT 3533286 MCH 30.1 pg 9 Unknown COMPLETE BLOOD COUNT 5523590 MCHC 31.6 g/dL 9 Unknown COMPLETE BLOOD COUNT 3096012 PLATELET COUNT 175 10e9/L Unknown COMPLETE BLOOD COUNT 7076541 Mean Plt Volume 10.5 fL Unknown COMPLETE BLOOD COUNT 3027582 Neut Auto 63.2 % 9 Unknown COMPLETE BLOOD COUNT 3792495 Lymph Auto 22.0 % 05/13/20 19 Unknown COMPLETE BLOOD COUNT 6763203 Atlantic Auto 12.1 % 9 Unknown COMPLETE BLOOD COUNT 6645149 RDW 14.9 % 9 Unknown COMPLETE BLOOD COUNT 3502855 Eos Auto 2.2 % 9 Unknown COMPLETE BLOOD COUNT 3607712 Baso Auto 0.5 % 9 Unknown COMPLETE BLOOD COUNT 8512717 Neutrophil Abs 2.53 10e9/L Unknown COMPLETE BLOOD COUNT 8442355 Lymphocyte Abs 0.88 10e9/L Unknown COMPLETE BLOOD COUNT 1805991 Monocyte Abs 0.48 10e9/L 04/24 Unknown COMPLETE BLOOD COUNT 2396560 Eosinophil Abs 0.09 10e9/L Unknown COMPLETE BLOOD COUNT 5026361 RDW-SD 49.6 fL 9 Unknown COMPLETE BLOOD COUNT 5899103 Basophil Abs 0.02 10e9/L 04/24 Unknown COMPREHENSIVE METABOLIC 70118 AST 18 U/L 2018 Unknown COMPREHENSIVE METABOLIC 13734 ALT 14 U/L 2018 Unknown COMPREHENSIVE METABOLIC 60945 BUN 15 mg/dL 2018 Unknown COMPREHENSIVE METABOLIC 72751 ALBUMIN 4.0 g/dL 2018 Unknown COMPREHENSIVE METABOLIC 26814 CHLORIDE 108 mmol/L 05/13 Unknown COMPREHENSIVE METABOLIC 92494 Bili Total 0.9 mg/dL 05/13 Unknown COMPREHENSIVE METABOLIC 47635 ALK PHOS 84 U/L 2018 Unknown COMPREHENSIVE METABOLIC 67077 SODIUM 142 mmol/L 05/13 Unknown COMPREHENSIVE METABOLIC 68528 CREATININE 0.72 mg/dL 04/24 Unknown COMPREHENSIVE METABOLIC 25548 CALCIUM 8.9 mg/dL 2018 Unknown COMPREHENSIVE METABOLIC 40176 POTASSIUM 4.0 mmol/L 05/13 Unknown COMPREHENSIVE METABOLIC 33336 Total Protein 5.5 g/dL Unknown COMPREHENSIVE METABOLIC 34636 Glucose 95 mg/dL 2018 Unknown COMPREHENSIVE METABOLIC 09260 Bicarbonate 27 mmol/L 04/24 Unknown COMPREHENSIVE METABOLIC 17277 AGAP 7 mmol/L 2018 Unknown GFR CALC 1280510 GFR Non Afr Amr >60 mL/min 05/13/2019 Un known GFR CALC 4630171 GFR Afr Amr >60 mL/min 05/13/2019 Unknow n THYROID STIMULATING HORMONE 76281 TSH 2.669 uIU/mL 05/13/2019 Unknown FREE T4 06571 T4 Free 1.19 ng/dL 05/13/2019 Unknown PT 4738512 PT 24.2 Seconds 05/06/2019 Unknow n PT 5009775 INR 2.1 05/06/2019 Unknown PT 0986844 PT 24.1 Seconds 03/08/2019 Unknow n PT 5826009 INR 2.9 03/08/2019 Unknown Procedures Procedure Codes Date ROUTINE VENIPUNCTURE CPT-4: 24846 11/10/2019 PROTHROMBIN TIME CPT-4: 64228 11/10/2019 PROTHROMBIN TIME CPT-4: 57109 10/26/2019 ROUTINE VENIPUNCTURE CPT-4: 98296 10/26/2019 ROUTINE VENIPUNCTURE CPT-4: 98572 10/11/2019 PT CPT-4: 4349574 10/11/2019 PPPS, initial visit CPT-4: G0438 09/20/2019 ROUTINE VENIPUNCTURE CPT-4: 09963 09/08/2019 PT CPT-4: 1423471 09/08/2019 THER/PROPH/DIAG INJ SC/IM CPT-4: 81234 09/08/2019 TRIAMCINOLONE ACET INJ NOS CPT-4: J3301 09/08/2019 ROUTINE VENIPUNCTURE CPT-4: 99969 07/29/2019 PT CPT-4: 0966578 07/29/2019 ROUTINE VENIPUNCTURE CPT-4: 93525 07/18/2019 PT CPT-4: 4461242 07/18/2019 METABOLIC PANEL TOTAL CA CPT-4: 01228 07/06/2019 COMPLETE CBC W/AUTO DIFF WBC CPT-4: 43810 07/06/2019 PROTHROMBIN TIME CPT-4: 10181 07/06/2019 ROUTINE VENIPUNCTURE CPT-4: 17108 06/14/2019 PROTHROMBIN TIME CPT-4: 80248 06/14/2019 COMPLETE CBC W/AUTO DIFF WBC CPT-4: 69707 06/14/2019 ROUTINE VENIPUNCTURE CPT-4: 25665 05/13/2019 COMPREHEN METABOLIC PANEL CPT-4: 78217 05/13/2019 COMPLETE CBC W/AUTO DIFF WBC CPT-4: 70153 05/13/2019 ASSAY THYROID STIM HORMONE CPT-4: 28530 05/13/2019 ASSAY OF FREE THYROXINE CPT-4: 90736 05/13/2019 PT CPT-4: 9685918 05/06/2019 ROUTINE VENIPUNCTURE CPT-4: 64059 05/06/2019 PT CPT-4: 3958395 04/07/2019 ROUTINE VENIPUNCTURE CPT-4: 60214 04/07/2019 ROUTINE VENIPUNCTURE CPT-4: 82632 03/08/2019 PROTHROMBIN TIME CPT-4: 01808 03/08/2019 Vital Signs Date Vital 11/03/2019 Blood [...] 1: 122/68 Code: 8480-6 BMI: 35.0 Code: 86978-6 Heart Rate 1: 72 bpm Height: 5'3" [...] 1: 114/78 Code: 8480-6 BMI: 36.1 Code: 68606-8 Heart Rate 1: 76 bpm Height: 5'3" [...] visit Encounters Encounter Performer Location Codes Date ([id number]) NURSE/OUTPATIENT VISIT EST Diagnosis: Long-term (current) use of anticoagulants, INR goal 2.0-3.0[ICD10: Z79.01] Becki Hernandez [employer] CPT-4: 31168 11/10/2019 ([id number]) OFFICE/OUTPATIENT VISIT EST Diagnosis: Post concussion syndrome[ICD10: F07.81] Diagnosis: Head contusion[ICD10: S00.93XA] Diagnosis: Chronic airway obstruction, not elsewhere classified[ICD10: J44.9] Becki Hernandez [employer] CPT-4: 37157 11/03/2019 ([id number]) OFFICE/OUTPATIENT VISIT EST Diagnosis: Fall as cause of accidental injury at home as place of occurrence[ICD10: W19.XXXA] Diagnosis: Headache[ICD10: R51] Diagnosis: Essential (primary) hypertension[ICD10: I10] Diagnosis: Long-term (current) use of anticoagulants, INR goal 2.0-3.0[ICD10: Z79.01] Diagnosis: Ecchymosis of left eye[ICD10: S05.12XA] Jannette Mayen PÉREZ Hernandez [employer] CPT-4: 65471 10/31/2019 ([id number]) NURSE/OUTPATIENT VISIT EST Diagnosis: Long-term (current) use of anticoagulants, INR goal 2.0-3.0[ICD10: Z79.01] Becki Hernandez [employer] CPT-4: 19463 10/26/2019 ([id number]) OFFICE/OUTPATIENT VISIT EST Diagnosis: Long-term (current) use of anticoagulants, INR goal 2.0-3.0[ICD10: Z79.01] Diagnosis: Pain in right arm[ICD10: M79.601] Diagnosis: Radiculopathy of arm[ICD10: M54.10] Jannette BLACK [employer] CPT-4: 68477 10/11/2019 ([id number]) OFFICE/OUTPATIENT VISIT EST Diagnosis: Long-term (current) use of anticoagulants, INR goal 2.0-3.0[ICD10: Z79.01] Diagnosis: Sinusitis[ICD10: J32.9] Diagnosis: Pain in right arm[ICD10: M79.601] Jannette BLACK [employer] CPT-4: 63585 09/08/2019 ([id number]) NURSE/OUTPATIENT VISIT EST Diagnosis: Chronic atrial fibrillation[ICD10: I48.2] Diagnosis: Encounter for therapeutic drug level monitoring[ICD10: Z51.81] Becki BLACK [employer] CPT-4: 01576 07/29/2019 ([id number]) NURSE/OUTPATIENT VISIT EST Diagnosis: Chronic atrial fibrillation[ICD10: I48.2] Diagnosis: Encounter for therapeutic drug level monitoring[ICD10: Z51.81] Becki BLACK [employer] CPT-4: 20639 07/18/2019 ([id number]) NURSE/OUTPATIENT VISIT EST Diagnosis: Encounter for therapeutic drug level monitoring[ICD10: Z51.81] Diagnosis: Chronic atrial fibrillation[ICD10: I48.2] Diagnosis: Essential (primary) hypertension[ICD10: I10] Becki BLACK [employer] CPT-4: 96575 07/06/2019 ([id number]) OFFICE/OUTPATIENT VISIT EST Diagnosis: Encounter for therapeutic drug level monitoring[ICD10: Z51.81] Diagnosis: Anemia, unspecified[ICD10: D64.9] Diagnosis: Bitten by dog, sequela[ICD10: W54.0XXS] 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] Becki BLACK [employer] CPT-4: 30895 06/14/2019 ([id number]) OFFICE/OUTPATIENT VISIT EST Diagnosis: Bitten by dog, sequela[ICD10: W54.0XXS] Diagnosis: Other fatigue[ICD10: R53.83] Diagnosis: Hypothyroidism, unspecified[ICD10: E03.9] Diagnosis: Muscle weakness (generalized)[ICD10: M62.81] Diagnosis: Generalized anxiety disorder[ICD10: F41.1] Jannette BLACK [employer] CPT-4: 73945 05/13/2019 ([id number]) NURSE/OUTPATIENT VISIT EST Diagnosis: Encounter for therapeutic drug level monitoring[ICD10: Z51.81] Becki BLACK [employer] CPT-4: 28912 05/06/2019 ([id number]) OFFICE/OUTPATIENT VISIT EST Diagnosis: Bitten by dog, sequela[ICD10: W54.0XXS] Diagnosis: Pain in right wrist[ICD10: M25.531] Diagnosis: Abrasion of right upper arm, sequela[ICD10: S40.811S] Diagnosis: Abrasion of left upper arm, sequela[ICD10: S40.812S] Jannette BLACK [employer] CPT-4: 10162 05/02/2019 ([id number]) NURSE/OUTPATIENT VISIT EST Diagnosis: Encounter for therapeutic drug level monitoring[ICD10: Z51.81] Becki BLCAK [employer] CPT-4: 60731 04/07/2019 ([id number]) OFFICE/OUTPATIENT VISIT NEW Diagnosis: Encounter for therapeutic drug level monitoring[ICD10: Z51.81] Diagnosis: Chronic atrial fibrillation[ICD10: I48.2] Diagnosis: Essential (primary) hypertension[ICD10: I10] Diagnosis: Abnormal findings on diagnostic imaging of heart and coronary circulation[ICD10: R93.1] Diagnosis: Other forms of dyspnea[ICD10: R06.09] Diagnosis: Hypothyroidism, unspecified[ICD10: E03.9] Diagnosis: Mixed hyperlipidemia[ICD10: E78.2] Becki YOUNGEagerPanda CPT-4: 28402 03/08/2019 Plan of Care Planned Activity Notes [...] J44.9 11/03/2019 App[facility]ment: [facility] [phone] [id number] [facility] 11/03/2019 Care Plan: CT HEAD/BRAIN W/O DYE LOINC : 96385-2 Pending 11/01/2019 Visit Diagnosis Plan: Essential (primary) [...] ICD-10 : S05.12XA 10/31/2019 Appointment: Jannette Mayen [address] [place], [place] [id number] Hospital Follow Up 10/31/2019 Patient Education: High Blood Pressure Co mpleted 10/31/2019 Patient Education: losartan- OptimizeRX Coupon [id number] [email or web address].Cardio control/samplemd/resources/getResource/61/[email or web address] Completed 10/31/2019 Appointment: Becki Black WPtel: [phone] [id number] FOLLOW UP 10/26/2019 Visit Diagnosis Plan: Long-term (current ) use of anticoagulants, INR goal 2.0-3.0 Discussion: will update pt/inr ICD-9 : V58.61 ICD-10 : Z79.01 10/11/2019 Visit Diagnosis Plan: Radiculopathy of arm Discussion: flexeril prescribed to take as needed. will start at low dose but instructed patient to call office if not effective and will increase mg dose. PT ordered at [facility] to assist with pain. if no improvement or worsening from PT, will need imaging. ICD-9 : 723.4 ICD-10 : M54.10 10/11/2019 Appointment: Jannette Mayen [address] [place], [place] [address] 10/11/2019 Patient Education: cyclobenzaprine- OptimizeRX Coupon [id number] https://www.Atbrox/sampleStopango/resources/getResource/61/[email or web address] Completed 10/11/2019 Visit Diagnosis Plan: Mixed hyperlipidemia Discussion: Return next week for fasting lipids ICD-9 : 272.4 ICD-10 : E78.2 09/20/2019 Visit Diagnosis Plan: Other forms of dyspnea Discussio n: Check PFT ICD-9 : 786.09 ICD-10 : R06.09 09/20/2019 Visit Diagnosis Plan: Bitten by dog, sequela Discussio n: Still seeing counselor Still doing therapy--left 4th finger still not agile enough to play violin and feels like pinched nerve in neck on right--dscussed stretches, massage, accupuncture---patient had hired contract attorney ICD-9 : 906.1 ICD-10 : W54.0XXS 09/20/2019 Visit Diagnosis Plan: Encounter for [facility] adult medical examination without abnormal findings Discussion: Mediterranean diet Combinati on of cardio and weight bearing exercise Had flu shot Update mammogram ICD-9 : V70.9 ICD-10 : Z00.00 09/20/2019 Appointment: Becki Black WPtel: [address] [place] [address] Annual Well Visit 09/20/2019 Visit Diagnosis Plan: [...] ICD-10 : Z79.01 09/08/2019 Appointment: Jannette Mayen [address] [place] [address] ACUTE ILLNESS 09/08/2019 Appointment: Becki Black WPtel: [address] [place] [address] US CANCELED 08/16/2019 Appointment: Becki Black WPtel: [address] [place] [address] US LAB 07/29/2019 Appointment: Becki Black WPtel: [address] [place] [address] US LAB 07/18/2019 Appointment: Becki Black WPtel: [address] [place] [address] US LAB 07/06/2019 Visit Diagnosis Plan: Encounter for therapeutic drug l evel monitoring Discussion: PT/INR drawn ICD-9 : V58.83 ICD-10 : Z51.81 06/14/2019 Visit Diagnosis Plan: Anemia, unspecified Discussion: CBC drawn ICD-9 : 285.9 ICD-10 : D64.9 06/14/2019 Visit Diagnosis Plan: Scar conditions and fibrosis of skin Discussion: Discussed Vitamin E or scar gel topically with gentle massage Fwup 3mos ICD-9 : 709.2 ICD-10 : L90.5 06/14/2019 Visit Diagnosis Plan: Bitten by dog, sequela Gregoria n: Is seeing counselor which is helping Has started PT for left wrist ICD-9 : 906.1 ICD-10 : W54.0XXS 06/14/2019 Appointment: Becki Black WPtel: [phone] [id number] US FOLLOW UP 06/14/2019 Visit Diagnosis Plan: Muscle weakness (generalized) Di scussion: zyrtec to take daily to cover for allergies due to TM appearance. ICD-9 : 728.87 ICD-10 : M62.81 05/13/2019 Visit Diagnosis Plan: Bitten by dog, halley Gregoria n: wounds were cleansed to right arm with neosporin applied and covered with telfa and bandaid. instructed to continue with dressing changes until areas scab and then can leave open to air. ICD-9 : 906.1 ICD-10 : W54.0XXS 05/13/2019 Visit Diagnosis Plan: Other fatigue Discussion: will o rder updated blood work to be completed today. ICD-9 : 780.79 ICD-10 : R53.83 05/13/2019 Visit Diagnosis Plan: Generalized anxiety disorder Dis [...] hydrocodone several days ago. will refer to [facility] as well to discuss concerns. ICD-9 : 300.02 ICD-10 : F41.1 05/13/2019 Appointment: Jannette Mayen [address] [place], [place] [id number] FOLLOW UP 05/13/2019 Patient Education: carvedilol- OptimizeRX Coupon [id number] https://www.Wundrbar.com/samplemd/resources/getResource/61/10u0m351-1erp-6722-2i Completed 05/13/2019 Patient Education: Xanax- OptimizeRX Coupon [id number] https://www.Wundrbar.com/samplemd/resources/getResource/61/[email or web address]-[email or web address] 1e-[email or web address].pdf Completed 05/13/2019 Appointment: Becki Black WPtel: [phone] [facility] US LAB 05/06/2019 Visit Diagnosis Plan: Pain in right wrist Discussion: xray ordered of wrist to rule out acute fracture. will send results to dr. portillo at [facility]. ICD-9 : 719.43 ICD-10 : M25.531 05/02/2019 Visit Diagnosis Plan: Bitten by dog, [...] ICD-10 : W54.0XXS 05/02/2019 Visit Diagnosis Plan: Abrasion of right upper arm, seq uela Discussion: abrasions were cleansed with wound cleanser and neosporin applied along with telfa and kerlix. patient tolerated well. keep area clean and dry. apply neosporin daily along with telfa dressing and cover with gauze/kerlix. call office with any s/s infection. ICD-9 : 906.2 ICD-10 : S40.811S 05/02/2019 Appointment: Jannette Mayen [address] [place], [place] [id number] 05/02/2019 Care Plan: X-RAY EXAM OF WRIST right LOINC : 3 7302-7 Pending 05/02/2019 Appointment: Becki Black WPtel: [phone] [facility] [id number] US LAB 04/07/2019 Appointment: [facility]el[phone] [facility] 03/22/2019 Visit Diagnosis Plan: Abnormal [...] ICD-10 : R06.09 03/08/2019 Visit Diagnosis Plan: Essential (primary) hypertension Discussion: Stable ICD-9 : 401.9 ICD-10 : I10 03/08/2019 Visit Diagnosis Plan: Hypothyroidism, unspecified Disc [...] ICD-9 : 427.31 ICD-10 : I48.2 03/08/2019 Appointment: Beck[facility]el[facility] [phone] [facility] NEW [facility]IENT 03/08/2019 Instructions No Instructions Medical Equipment No Medical Equipment data Health Concerns Section Health Concerns data not found Goals Section Goals data not found Interventions Section Interventions data not found Health Status Evaluations/Outcomes Section Health Status Evaluations/Outcomes data not found Advance Directives No Advance Directive data
--- OUTSIDE RECORDS SUMMARY | 2019-11-24 06:49 | XMS REPORT | CCD ---
Author Author Tricia Black D.O. Organization [facility] Address [address] [place] [address] Phone Care Team Providers Care Gill Box Tender Name Role Phone PP Unavailable CCM Unavailable Summary Purpose Interface Exchange Insurance Providers Payer name Policy type / Coverage type Covered alliance party ID Effective Begin Date Effective End Date WPS MEDICARE PART B [place] Medicare Part B [id number] Unknown Unknown [facility] Medicare Part B [id number] Unknown Unknown Family history Grandmother Diagnosis Age [...] Unknown Retired 03/08/[address]: 086334395 Has never smoked or chewed tobacco 03/08/[address]: 821875 Currently drinks alcohol 03/08 Has the patient [...] Fill Instructions losartan 100 mg tablet RxNorm: 594421 1 Tablet(s) Oral QD 11/10/2019 02/08/2020 Active isosorbide mononitrate ER 30 mg tablet,extended release 24 h r RxNorm: 470346 TABLET(S) 1 TABLET(S) PO NEEDED 11/10/2019 05/08/2020 Active Patient requests 90 days supply carvedilol 25 mg tablet RxNorm: 237610 1 Tablet(s) Oral two antolin es a day 11/10/2019 05/08/2020 Active Coumadin 2 mg tablet RxNorm: 558470 1 Tablet(s) Oral on and Thursday11/10/2019 No Stop Date Active levothyroxine 50 mcg tablet RxNorm: 890650 1 Tablet(s) Oral QD 10/2305/08/2020 Active Coumadin 4 mg tablet RxNorm: 149270 1 Tablet(s) Oral Thursday11/10/2019 11/10/2019 Inactive losartan 100 mg tablet RxNorm: 406033 1 Tablet(s) Oral QD 11/10/2019 11/09/2019 Inactive losartan 50 mg tablet RxNorm: 472121 2 Tablet(s) Oral QD 11/01/2019 1 01/10/2019 Inactive potassium chloride ER 10 mEq capsule,extended release RxNorm : 370396 1 Capsule(s) Oral QD 10/26/2019 10/26/2019 Inactive potassium chloride ER 10 mEq tablet,extended release RxNorm: 346146 1 TABLET(S) ORAL QD 10/22/2019 04/18/2020 Active Replaces PA on 1 0MEQ Capsules Aspir-81 mg tablet,delayed release RxNorm: 346026 1 Tablet(s) O ral QD 10/11/2019 No Stop Date Active cyclobenzaprine 5 mg tablet RxNorm: 437906 1 Tablet(s) Oral two times a day as needed for muscle spasm 10/11/2019 No Stop Date Active Coumadin 4 mg tablet RxNorm: 686314 1 Tablet(s) Oral Mo through Thursday and 1/2 tablet (2mg) on Sat/Sun 10/11/2019 11/09/2019 Inactive potassium chloride ER 10 mEq tablet,extended release RxNorm: 090135 1 Tablet(s) Oral QD 09/22/2019 09/21/2019 Inactive Replaces PA on 1 0MEQ Capsules potassium chloride ER 10 mEq tablet,extended release RxNorm: 559434 1 Tablet(s) Oral QD 09/22/2019 10/10/2019 Inactive Replaces PA on 1 0MEQ Capsules potassium chloride ER 10 mEq capsule,extended release RxNorm : 275906 1 Capsule(s) Oral QD 09/21/2019 09/21/2019 Inactive carvedilol 25 mg tablet RxNorm: 858493 1 Tablet(s) Oral two antolin es a day 08/23/2019 11/09/2019 Inactive isosorbide mononitrate ER 30 mg tablet,extended release 24 h r RxNorm: 329340 TABLET(S) 1 TABLET(S) PO NEEDED 08/22/2019 11/09/2019 Inactive Patient requests 90 days supply isosorbide mononitrate ER 30 mg tablet,extended release 24 h r RxNorm: 167650 Tablet(s) 1 TABLET(S) PO NEEDED 08/16/2019 08/21/2019 Inactive Patient requests 90 days supply levothyroxine 50 mcg tablet RxNorm: 470223 1 Tablet(s) PO QD 201811/09/2019 Inactive isosorbide mononitrate ER 30 mg tablet,extended release 24 h r RxNorm: 031116 Tablet(s) 1 TABLET(S) PO NEEDED 06/27/2019 08/15/2019 Inactive Patient requests 90 days supply isosorbide mononitrate ER 30 mg tablet,extended release 24 h r RxNorm: 023395 1 Tablet(s) PO QD as needed 06/27/2019 06/27/2019 Inactive Neris ent requests 90 days supply carvedilol 25 mg tablet RxNorm: 107998 1 TABLET(S) PO BID 06/27/2019 08/22/2019 Inactive furosemide 40 mg tablet RxNorm: 677938 1 Tablet(s) PO QAM 06/21/2019 12/17/2019 Active carvedilol 25 mg tablet RxNorm: 297819 1 Tablet(s) PO BID 05/13/2019 06/26/2019 Inactive Xanax 0.25 mg tablet RxNorm: 451213 1/2 Tablet(s) PO Q6H as needed 05/13/2019 09/07/2019 Inactive levothyroxine 50 mcg tablet RxNorm: 334849 1 Tablet(s) PO QD 201808/07/2019 Inactive losartan 50 mg tablet RxNorm: 922705 1 Tablet(s) PO QD 04/26/2019 Inactive losartan 50 mg tablet RxNorm: 134018 1 Tablet(s) PO QD 04/20/201901/2019 Inactive pravastatin 40 mg tablet RxNorm: 655784 1 Tablet(s) PO QD 04/07/2019 06/05/2019 Inactive isosorbide mononitrate ER 30 mg tablet,extended release 24 h r RxNorm: 230373 1 Tablet(s) PO as needed 04/07/2019 04/06/2019 Inactive isosorbide mononitrate ER 30 mg tablet,extended release 24 h r RxNorm: 774631 1 TABLET(S) PO NEEDED 04/07/2019 06/26/2019 Inactive Patient requests 90 days supply losartan 50 mg tablet RxNorm: 672601 1 Tablet(s) PO QD 03/22/2019 Inactive carvedilol 25 mg tablet RxNorm: 809441 1 Tablet(s) PO BID No Start Date 05/12/2019 Inactive losartan 50 mg tablet RxNorm: 706966 1 Tablet(s) PO QD No Start Date 03/21/2019 Inactive Ventolin HFA 90 mcg/actuation aerosol inhaler RxNorm: 633761 1-2 Puff(s) INH as needed No Start Date 09/07/2019 Inactive furosemide 40 mg tablet RxNorm: 273839 1 Tablet(s) PO QAM No Start Date 06/20/2019 Inactive pravastatin 40 mg tablet RxNorm: 363370 1 Tablet(s) PO QD No Start Date 04/06/2019 Inactive Coumadin 2 mg tablet RxNorm: 689159 1 Tablet(s) PO Mon, Fri, Sat and Sun then 2 tablets (4mg) on , Thu and No Start Date 10/10/2019 Inactive isosorbide mononitrate ER 30 mg tablet,extended release 24 h r RxNorm: 165371 Tablet(s) PO as needed No Start Date [...] ER 10 mEq capsule,extended release RxNorm : 504679 1 Capsule(s) PO QD No Start Date 09/20/2019 Inactive levothyroxine 50 mcg tablet RxNorm: 152067 1 Tablet(s) PO QD No Sta rt Date 04/25/2019 Inactive Medication Administered No Medication Administered data Immunizations Vaccine Codes Date Status Influenza CVX: 135 07/02/2019 Results Observation Observation Code Item Item Code Result Date S ervice Location PT [id number] PT 31.4 Seconds 10/26/2019 Unknow n PT [id number] INR 2.9 10/26/2019 Unknown PT 8884182 PT 17.6 Seconds 10/11/2019 Unknow n PT 8531119 INR 1.4 10/11/2019 Unknown PT 0566478 PT 23.7 Seconds 09/08/2019 Unknow n PT 1604811 INR 2.0 09/08/2019 Unknown PT [id number] PT 23.2 Seconds 07/29/2019 Unknow n PT 5454746 INR 2.0 07/29/2019 Unknown PT 5721519 PT 14.3 Seconds 07/18/2019 Unknow n PT [id number] INR 1.1 07/18/2019 [place] [address] Glucose 75 mg/dL 07/06 [place] [address] CREATININE 0.61 mg/dL [place] [address] BUN 15 mg/dL 07/06 [place] [address] SODIUM 142 mmol/L 06/23 [place] [address] POTASSIUM 4.0 mmol/L 06/23 [place] [address] CHLORIDE 106 mmol/L 06/23 [place] [address] Bicarbonate 28 mmol/L [place] [address] AGAP 8 mmol/L 07/06 [place] [address] CALCIUM 9.3 mg/dL 07/06 Unknown PT [id number] PT 17.4 Seconds 07/06/2019 Unknow n PT [id number] INR 1.4 07/06/2019 Unknown GFR CALC 1026882 GFR Non Afr Amr >60 mL/min 07/06/2019 Un known GFR CALC 6645864 GFR Afr Amr >60 mL/min 07/06/2019 Unknow n COMPLETE BLOOD COUNT 1343756 WBC 4.7 10e9/L 07/06/20 19 Unknown COMPLETE BLOOD COUNT 0895846 RBC 4.19 10e12/L 2018 Unknown COMPLETE BLOOD COUNT 9060440 HEMOGLOBIN 12.6 g/dL 07/06/20 19 Unknown COMPLETE BLOOD COUNT 0782660 HEMATOCRIT 39.4 % 07/06/20 19 Unknown COMPLETE BLOOD COUNT 1956336 MCV 94.0 fL 9 Unknown COMPLETE BLOOD COUNT 1401786 MCH 30.1 pg 9 Unknown COMPLETE BLOOD COUNT 5934536 MCHC 32.0 g/dL 9 Unknown COMPLETE BLOOD COUNT 9086185 PLATELET COUNT 160 10e9/L Unknown COMPLETE BLOOD COUNT 3896761 Mean Plt Volume 11.0 fL Unknown COMPLETE BLOOD COUNT 1048827 Neut Auto 56.6 % 9 Unknown COMPLETE BLOOD COUNT 8224589 Lymph Auto 27.0 % 07/06/20 19 Unknown COMPLETE BLOOD COUNT 9419099 Borden Auto 13.7 % 9 Unknown COMPLETE BLOOD COUNT 9204379 RDW 14.6 % 9 Unknown COMPLETE BLOOD COUNT 6725750 Eos Auto 2.1 % 9 Unknown COMPLETE BLOOD COUNT 2498102 Baso Auto 0.6 % 9 Unknown COMPLETE BLOOD COUNT 9410908 Neutrophil Abs 2.66 10e9/L Unknown COMPLETE BLOOD COUNT 9824639 Lymphocyte Abs 1.27 10e9/L Unknown COMPLETE BLOOD COUNT 4356713 Monocyte Abs 0.64 10e9/L 06/23 Unknown COMPLETE BLOOD COUNT 3821731 Eosinophil Abs 0.10 10e9/L Unknown COMPLETE BLOOD COUNT 4992252 RDW-SD 48.7 fL 9 Unknown COMPLETE BLOOD COUNT 8004643 Basophil Abs 0.03 10e9/L 06/23 Unknown COMPLETE BLOOD COUNT 0374622 WBC 4.6 10e9/L 06/14/20 19 Unknown COMPLETE BLOOD COUNT 3071078 RBC 4.16 10e12/L 2018 Unknown COMPLETE BLOOD COUNT 1042936 HEMOGLOBIN 12.6 g/dL 06/14/20 19 Unknown COMPLETE BLOOD COUNT 3836120 HEMATOCRIT 39.1 % 06/14/20 19 Unknown COMPLETE BLOOD COUNT 3384124 MCV 94.0 fL 9 Unknown COMPLETE BLOOD COUNT 7510743 MCH 30.3 pg 9 Unknown COMPLETE BLOOD COUNT 3918826 MCHC 32.2 g/dL 9 Unknown COMPLETE BLOOD COUNT 4573913 PLATELET COUNT 167 10e9/L Unknown COMPLETE BLOOD COUNT 6470617 Mean Plt Volume 10.9 fL Unknown COMPLETE BLOOD COUNT 1585691 Neut Auto 59.6 % 9 Unknown COMPLETE BLOOD COUNT 0702032 Lymph Auto 24.1 % 06/14/20 19 Unknown COMPLETE BLOOD COUNT 3665862 Borden Auto 14.0 % 9 Unknown COMPLETE BLOOD COUNT 7227490 RDW 14.8 % 9 Unknown COMPLETE BLOOD COUNT 1081405 Eos Auto 1.9 % 9 Unknown COMPLETE BLOOD COUNT 1636017 Baso Auto 0.4 % 9 Unknown COMPLETE BLOOD COUNT 4299820 Neutrophil Abs 2.74 10e9/L Unknown COMPLETE BLOOD COUNT 8314271 Lymphocyte Abs 1.11 10e9/L Unknown COMPLETE BLOOD COUNT 1168117 Monocyte Abs 0.64 10e9/L 05/24 Unknown COMPLETE BLOOD COUNT 7486928 Eosinophil Abs 0.09 10e9/L Unknown COMPLETE BLOOD COUNT 5387704 RDW-SD 49.3 fL 9 Unknown COMPLETE BLOOD COUNT 7080551 Basophil Abs 0.02 10e9/L 05/24 Unknown PT 6167043 PT 22.3 Seconds 06/14/2019 Unknow n PT 5917775 INR 1.9 06/14/2019 Unknown COMPLETE BLOOD COUNT 4620587 WBC 4.0 10e9/L 05/13/20 19 Unknown COMPLETE BLOOD COUNT 5215448 RBC 3.82 10e12/L 2018 Unknown COMPLETE BLOOD COUNT 6765678 HEMOGLOBIN 11.5 g/dL 05/13/20 19 Unknown COMPLETE BLOOD COUNT 8696622 HEMATOCRIT 36.4 % 05/13/20 19 Unknown COMPLETE BLOOD COUNT 9177566 MCV 95.3 fL 9 Unknown COMPLETE BLOOD COUNT 4583953 MCH 30.1 pg 9 Unknown COMPLETE BLOOD COUNT 7782383 MCHC 31.6 g/dL 9 Unknown COMPLETE BLOOD COUNT 7835427 PLATELET COUNT 175 10e9/L Unknown COMPLETE BLOOD COUNT 0240383 Mean Plt Volume 10.5 fL Unknown COMPLETE BLOOD COUNT 6789989 Neut Auto 63.2 % 9 Unknown COMPLETE BLOOD COUNT 4581446 Lymph Auto 22.0 % 05/13/20 19 Unknown COMPLETE BLOOD COUNT 9758427 Borden Auto 12.1 % 9 Unknown COMPLETE BLOOD COUNT 8685623 RDW 14.9 % 9 Unknown COMPLETE BLOOD COUNT 7757698 Eos Auto 2.2 % 9 Unknown COMPLETE BLOOD COUNT 2261936 Baso Auto 0.5 % 9 Unknown COMPLETE BLOOD COUNT 2407826 Neutrophil Abs 2.53 10e9/L Unknown COMPLETE BLOOD COUNT 4856243 Lymphocyte Abs 0.88 10e9/L Unknown COMPLETE BLOOD COUNT 9805805 Monocyte Abs 0.48 10e9/L 04/24 Unknown COMPLETE BLOOD COUNT 6227299 Eosinophil Abs 0.09 10e9/L Unknown COMPLETE BLOOD COUNT 0781644 RDW-SD 49.6 fL 9 Unknown COMPLETE BLOOD COUNT 9568048 Basophil Abs 0.02 10e9/L 04/24 Unknown COMPREHENSIVE METABOLIC 40907 AST 18 U/L 2018 Unknown COMPREHENSIVE METABOLIC 47851 ALT 14 U/L 2018 Unknown COMPREHENSIVE METABOLIC 90623 BUN 15 mg/dL 2018 Unknown COMPREHENSIVE METABOLIC 51451 ALBUMIN 4.0 g/dL 2018 Unknown COMPREHENSIVE METABOLIC 50716 CHLORIDE 108 mmol/L 05/13 Unknown COMPREHENSIVE METABOLIC 79725 Bili Total 0.9 mg/dL 05/13 Unknown COMPREHENSIVE METABOLIC 73845 ALK PHOS 84 U/L 2018 Unknown COMPREHENSIVE METABOLIC 98228 SODIUM 142 mmol/L 05/13 Unknown COMPREHENSIVE METABOLIC 43048 CREATININE 0.72 mg/dL 04/24 Unknown COMPREHENSIVE METABOLIC 56577 CALCIUM 8.9 mg/dL 2018 Unknown COMPREHENSIVE METABOLIC 31042 POTASSIUM 4.0 mmol/L 05/13 Unknown COMPREHENSIVE METABOLIC 64414 Total Protein 5.5 g/dL Unknown COMPREHENSIVE METABOLIC 95909 Glucose 95 mg/dL 2018 Unknown COMPREHENSIVE METABOLIC 00548 Bicarbonate 27 mmol/L 04/24 Unknown COMPREHENSIVE METABOLIC 69861 AGAP 7 mmol/L 2018 Unknown GFR CALC 6624263 GFR Non Afr Amr >60 mL/min 05/13/2019 Un known GFR CALC 2439901 GFR Afr Amr >60 mL/min 05/13/2019 Unknow n THYROID STIMULATING HORMONE 36764 TSH 2.669 uIU/mL 05/13/2019 Unknown FREE T4 21395 T4 Free 1.19 ng/dL 05/13/2019 Unknown PT 5850043 PT 24.2 Seconds 05/06/2019 Unknow n PT 8630848 INR 2.1 05/06/2019 Unknown PT 5660876 PT 24.1 Seconds 03/08/2019 Unknow n PT 8203023 INR 2.9 03/08/2019 Unknown Procedures Procedure Codes Date ROUTINE VENIPUNCTURE CPT-4: 60551 11/10/2019 PROTHROMBIN TIME CPT-4: 42931 11/10/2019 PROTHROMBIN TIME CPT-4: 61632 10/26/2019 ROUTINE VENIPUNCTURE CPT-4: 82550 10/26/2019 ROUTINE VENIPUNCTURE CPT-4: 89684 10/11/2019 PT CPT-4: 5651265 10/11/2019 PPPS, initial visit CPT-4: G0438 09/20/2019 ROUTINE VENIPUNCTURE CPT-4: 97448 09/08/2019 PT CPT-4: 0222387 09/08/2019 THER/PROPH/DIAG INJ SC/IM CPT-4: 08427 09/08/2019 TRIAMCINOLONE ACET INJ NOS CPT-4: J3301 09/08/2019 ROUTINE VENIPUNCTURE CPT-4: 83099 07/29/2019 PT CPT-4: 3704070 07/29/2019 ROUTINE VENIPUNCTURE CPT-4: 20511 07/18/2019 PT CPT-4: 8349454 07/18/2019 METABOLIC PANEL TOTAL CA CPT-4: 45021 07/06/2019 COMPLETE CBC W/AUTO DIFF WBC CPT-4: 19730 07/06/2019 PROTHROMBIN TIME CPT-4: 76569 07/06/2019 ROUTINE VENIPUNCTURE CPT-4: 12473 06/14/2019 PROTHROMBIN TIME CPT-4: 86004 06/14/2019 COMPLETE CBC W/AUTO DIFF WBC CPT-4: 43969 06/14/2019 ROUTINE VENIPUNCTURE CPT-4: 52791 05/13/2019 COMPREHEN METABOLIC PANEL CPT-4: 48983 05/13/2019 COMPLETE CBC W/AUTO DIFF WBC CPT-4: 00297 05/13/2019 ASSAY THYROID STIM HORMONE CPT-4: 29532 05/13/2019 ASSAY OF FREE THYROXINE CPT-4: 25988 05/13/2019 PT CPT-4: 9558051 05/06/2019 ROUTINE VENIPUNCTURE CPT-4: 93402 05/06/2019 PT CPT-4: 0476526 04/07/2019 ROUTINE VENIPUNCTURE CPT-4: 11637 04/07/2019 ROUTINE VENIPUNCTURE CPT-4: 07333 03/08/2019 PROTHROMBIN TIME CPT-4: 84764 03/08/2019 Vital Signs Date Vital 11/03/2019 Blood [...] 1: 122/68 Code: 8480-6 BMI: 35.0 Code: 19117-0 Heart Rate 1: 72 bpm Height: 5'3" [...] 1: 114/78 Code: 8480-6 BMI: 36.1 Code: 54691-6 Heart Rate 1: 76 bpm Height: 5'3" [...] visit Encounters Encounter Performer Location Codes Date ([id number]) NURSE/OUTPATIENT VISIT EST Diagnosis: Long-term (current) use of anticoagulants, INR goal 2.0-3.0[ICD10: Z79.01] Becki [facility] Koofers CPT-4: 93344 11/10/2019 ([id number]) OFFICE/OUTPATIENT VISIT EST Diagnosis: Post concussion syndrome[ICD10: F07.81] Diagnosis: Head contusion[ICD10: S00.93XA] Diagnosis: Chronic airway obstruction, not elsewhere classified[ICD10: J44.9] Becki Hernandez [facility] CPT-4: 20678 11/03/2019 ([id number]) OFFICE/OUTPATIENT VISIT EST Diagnosis: Fall as cause of accidental injury at home as place of occurrence[ICD10: W19.XXXA] Diagnosis: Headache[ICD10: R51] Diagnosis: Essential (primary) hypertension[ICD10: I10] Diagnosis: Long-term (current) use of anticoagulants, INR goal 2.0-3.0[ICD10: Z79.01] Diagnosis: Ecchymosis of left eye[ICD10: S05.12XA] Jannette Mayen PÉREZ Hernandez [facility] CPT-4: 91377 10/31/2019 ([id number]) NURSE/OUTPATIENT VISIT EST Diagnosis: Long-term (current) use of anticoagulants, INR goal 2.0-3.0[ICD10: Z79.01] Becki Hernandez [facility] CPT-4: 15476 10/26/2019 ([id number]) OFFICE/OUTPATIENT VISIT EST Diagnosis: Long-term (current) use of anticoagulants, INR goal 2.0-3.0[ICD10: Z79.01] Diagnosis: Pain in right arm[ICD10: M79.601] Diagnosis: Radiculopathy of arm[ICD10: M54.10] Jannette BLACK Koofers CPT-4: 60886 10/11/2019 ([id number]) OFFICE/OUTPATIENT VISIT EST Diagnosis: Long-term (current) use of anticoagulants, INR goal 2.0-3.0[ICD10: Z79.01] Diagnosis: Sinusitis[ICD10: J32.9] Diagnosis: Pain in right arm[ICD10: M79.601] Jannette BLACK Koofers CPT-4: 44386 09/08/2019 ([id number]) NURSE/OUTPATIENT VISIT EST Diagnosis: Chronic atrial fibrillation[ICD10: I48.2] Diagnosis: Encounter for therapeutic drug level monitoring[ICD10: Z51.81] Becki BLACK Koofers CPT-4: 92260 07/29/2019 ([id number]) NURSE/OUTPATIENT VISIT EST Diagnosis: Chronic atrial fibrillation[ICD10: I48.2] Diagnosis: Encounter for therapeutic drug level monitoring[ICD10: Z51.81] Becki BLAKC Koofers CPT-4: 38496 07/18/2019 ([id number]) NURSE/OUTPATIENT VISIT EST Diagnosis: Encounter for therapeutic drug level monitoring[ICD10: Z51.81] Diagnosis: Chronic atrial fibrillation[ICD10: I48.2] Diagnosis: Essential (primary) hypertension[ICD10: I10] Becki BLACK Koofers CPT-4: 18157 07/06/2019 ([id number]) OFFICE/OUTPATIENT VISIT EST Diagnosis: Encounter for therapeutic drug level monitoring[ICD10: Z51.81] Diagnosis: Anemia, unspecified[ICD10: D64.9] Diagnosis: Bitten by dog, sequela[ICD10: W54.0XXS] 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] Becki BLACK Koofers CPT-4: 83866 06/14/2019 ([id number]) OFFICE/OUTPATIENT VISIT EST Diagnosis: Bitten by dog, sequela[ICD10: W54.0XXS] Diagnosis: Other fatigue[ICD10: R53.83] Diagnosis: Hypothyroidism, unspecified[ICD10: E03.9] Diagnosis: Muscle weakness (generalized)[ICD10: M62.81] Diagnosis: Generalized anxiety disorder[ICD10: F41.1] Jannette BLACK Koofers CPT-4: 42271 05/13/2019 ([id number]) NURSE/OUTPATIENT VISIT EST Diagnosis: Encounter for therapeutic drug level monitoring[ICD10: Z51.81] Becki BLACK Koofers CPT-4: 32134 05/06/2019 ([id number]) OFFICE/OUTPATIENT VISIT EST Diagnosis: Bitten by dog, sequela[ICD10: W54.0XXS] Diagnosis: Pain in right wrist[ICD10: M25.531] Diagnosis: Abrasion of right upper arm, sequela[ICD10: S40.811S] Diagnosis: Abrasion of left upper arm, sequela[ICD10: S40.812S] Jannette BLACK Koofers CPT-4: 82001 05/02/2019 ([id number]) NURSE/OUTPATIENT VISIT EST Diagnosis: Encounter for therapeutic drug level monitoring[ICD10: Z51.81] Becki BLACK Koofers CPT-4: 22360 04/07/2019 ([id number]) OFFICE/OUTPATIENT VISIT NEW Diagnosis: Encounter for therapeutic drug level monitoring[ICD10: Z51.81] Diagnosis: Chronic atrial fibrillation[ICD10: I48.2] Diagnosis: Essential (primary) hypertension[ICD10: I10] Diagnosis: Abnormal findings on diagnostic imaging of heart and coronary circulation[ICD10: R93.1] Diagnosis: Other forms of dyspnea[ICD10: R06.09] Diagnosis: Hypothyroidism, unspecified[ICD10: E03.9] Diagnosis: Mixed hyperlipidemia[ICD10: E78.2] Becki [facility] Ade[facility]za CPT-4: 34067 03/08/2019 Plan of Care Planned Activity Notes [...] J44.9 11/03/2019 App[facility]ment: [facility]el[facility] [phone] [facility] [facility] 11/03/2019 Care Plan: CT HEAD/BRAIN W/O DYE LOINC : 38562-4 Pending 11/01/2019 Visit Diagnosis Plan: Essential (primary) [...] ICD-10 : S05.12XA 10/31/2019 Appointment: Jannette Mayen [address] [place], [place] [address] Hospital Follow Up 10/31/2019 Patient Education: High Blood Pressure Co mpleted 10/31/2019 Patient Education: losartan- OptimizeRX Coupon [id number] [email or web address]://[email or web address]! Innovations/samplemd/resources/getResource/61/7p148751-9i71-0337-5c Completed 10/31/2019 Appointment: Becki Black WPtel: [phone] [id number] FOLLOW UP 10/26/2019 Visit Diagnosis Plan: Long-term (current ) use of anticoagulants, INR goal 2.0-3.0 Discussion: will update pt/inr ICD-9 : V58.61 ICD-10 : Z79.01 10/11/2019 Visit Diagnosis Plan: Radiculopathy of arm Discussion: flexeril prescribed to take as needed. will start at low dose but instructed patient to call office if not effective and will increase mg dose. PT ordered at [facility] to assist with pain. if no improvement or worsening from PT, will need imaging. ICD-9 : 723.4 ICD-10 : M54.10 10/11/2019 Appointment: Jannette Mayen [address] [place], [place] [phone] ACUTE ILLNESS 10/11/2019 Patient Education: cyclobenzaprine- Optimize[employer] Coupon [id number] https://[email or web address]! Innovations/samplemd/resources/getResource/61/[email or web address] Completed 10/11/2019 Visit Diagnosis Plan: Bitten by dog, sequela Discussio n: Still seeing counselor Still doing therapy--left 4th finger still not agile enough to play violin and feels like pinched nerve in neck on right--dscussed stretches, massage, accupuncture---patient had hired regulatory attorney ICD-9 : 906.1 ICD-10 : W54.0XXS 09/20/2019 Visit Diagnosis Plan: [facility]counter [facility] without abnormal findings [...] : E78.2 09/20/2019 Appointment: Becki Black WPtel: [address] [place] [address] Annual Well Visit 09/20/2019 Visit Diagnosis Plan: [...] ICD-10 : Z79.01 09/08/2019 Appointment: Jannette Mayen [address] [place] [address] ACUTE ILLNESS 09/08/2019 Appointment: Becki Black WPtel: [address] [place] [address] US CANCELED 08/16/2019 Appointment: Becki Black WPtel: [address] [place] [address] US LAB 07/29/2019 Appointment: Becki Black WPtel: [address] [place] [address] US LAB 07/18/2019 Appointment: Becki Black WPtel: [address] [place] [address] US LAB 07/06/2019 Visit Diagnosis Plan: Bitten [...] Appointment: Becki Black WPtel: [phone] [id number] FOLLOW UP 06/14/2019 Visit Diagnosis Plan: Generalized [...] hydrocodone several days ago. will refer to [facility] as well to discuss concerns. ICD-9 : [...] ICD-10 : R53.83 05/13/2019 Appointment: Jannette Mayen [address] [place], [place] [address] FOLLOW UP 05/13/2019 Patient Education: carvedilol- OptimizeRX Coupon [id number] https://www.[employer].com/samplemd/resources/getResource/61/[email or web address]-9198-9e Completed 05/13/2019 Patient Education: Xanax- Optimize[employer] Coupon [id number] https://www.[employer].com/samplemd/resources/getResource/61/[email or web address]-x1 1e-[email or web address].pdf Completed 05/13/2019 Appointment: Becki Black WPtel: [address] [place], [place] [id number] US LAB 05/06/2019 Visit Diagnosis Plan: Abrasion [...] will send results to dr. portillo at [facility]. ICD-9 : 719.43 ICD-10 : M25.531 05/02/2019 Appointment: Jannette Mayen [address] [place], [place] [phone] ACUTE ILLNESS 05/02/2019 Care Plan: X-RAY EXAM OF WRIST right LOINC : 3 7302-7 Pending 05/02/2019 Appointment: Becki Black WPtel: [facility] US LAB 04/07/2019 Appointment: Becki Black WPtel: [phone] [facility] BP CHECK 03/22/2019 Visit Diagnosis Plan: [...] I10 03/08/2019 Appointment: Becki Black [facility]Ptel: [phone] [facility] NEW PATIENT 03/08/2019 Instructions No Instructions Medical Equipment No Medical Equipment data Health Concerns Section Health Concerns data not found Goals Section Goals data not found Interventions Section Interventions data not found Health Status Evaluations/Outcomes Section Health Status Evaluations/Outcomes data not found Advance Directives No Advance Directive data
--- OUTSIDE RECORDS SUMMARY | 2019-11-24 06:49 | XMS REPORT | CCD ---
Author Author Tricia Black D.O. Organization [facility] Address [address] [place] [address] Phone Care Team Providers Care Lathe Scalper Operator Name Role Phone PP Unavailable CCM Unavailable Summary Purpose Interface Exchange Insurance Providers Payer name Policy type / Coverage type Covered democrat ID Effective Begin Date Effective End Date WPS MEDICARE PART B [place] Medicare Part B [id number] Unknown Unknown [facility] Medicare Part B [id number] Unknown Unknown Family history Grandmother Diagnosis Age [...] Unknown Retired 03/08/[address]: 218271689 Has never smoked or chewed tobacco 03/08/[address]: 697316 Currently drinks alcohol 03/08 Has the patient [...] Fill Instructions losartan 100 mg tablet RxNorm: 144660 1 Tablet(s) Oral QD 11/10/2019 02/08/2020 Active isosorbide mononitrate ER 30 mg tablet,extended release 24 h r RxNorm: 879926 TABLET(S) 1 TABLET(S) PO NEEDED 11/10/2019 05/08/2020 Active Patient requests 90 days supply carvedilol 25 mg tablet RxNorm: 628862 1 Tablet(s) Oral two antolin es a day 11/10/2019 05/08/2020 Active Coumadin 2 mg tablet RxNorm: 652575 1 Tablet(s) Oral on and Thursday11/10/2019 No Stop Date Active levothyroxine 50 mcg tablet RxNorm: 376626 1 Tablet(s) Oral QD 10/2305/08/2020 Active Coumadin 4 mg tablet RxNorm: 148651 1 Tablet(s) Oral Thursday11/10/2019 11/10/2019 Inactive losartan 100 mg tablet RxNorm: 912918 1 Tablet(s) Oral QD 11/10/2019 11/09/2019 Inactive losartan 50 mg tablet RxNorm: 724578 2 Tablet(s) Oral QD 11/01/2019 1 01/10/2019 Inactive potassium chloride ER 10 mEq capsule,extended release RxNorm : 531102 1 Capsule(s) Oral QD 10/26/2019 10/26/2019 Inactive potassium chloride ER 10 mEq tablet,extended release RxNorm: 534837 1 TABLET(S) ORAL QD 10/22/2019 04/18/2020 Active Replaces PA on 1 0MEQ Capsules Aspir-81 mg tablet,delayed release RxNorm: 566743 1 Tablet(s) O ral QD 10/11/2019 No Stop Date Active cyclobenzaprine 5 mg tablet RxNorm: 992929 1 Tablet(s) Oral two times a day as needed for muscle spasm 10/11/2019 No Stop Date Active Coumadin 4 mg tablet RxNorm: 791126 1 Tablet(s) Oral Mo through Thursday and 1/2 tablet (2mg) on Sat/Sun 10/11/2019 11/09/2019 Inactive potassium chloride ER 10 mEq tablet,extended release RxNorm: 105997 1 Tablet(s) Oral QD 09/22/2019 09/21/2019 Inactive Replaces PA on 1 0MEQ Capsules potassium chloride ER 10 mEq tablet,extended release RxNorm: 945983 1 Tablet(s) Oral QD 09/22/2019 10/10/2019 Inactive Replaces PA on 1 0MEQ Capsules potassium chloride ER 10 mEq capsule,extended release RxNorm : 742648 1 Capsule(s) Oral QD 09/21/2019 09/21/2019 Inactive carvedilol 25 mg tablet RxNorm: 353611 1 Tablet(s) Oral two antolin es a day 08/23/2019 11/09/2019 Inactive isosorbide mononitrate ER 30 mg tablet,extended release 24 h r RxNorm: 629570 TABLET(S) 1 TABLET(S) PO NEEDED 08/22/2019 11/09/2019 Inactive Patient requests 90 days supply isosorbide mononitrate ER 30 mg tablet,extended release 24 h r RxNorm: 651097 Tablet(s) 1 TABLET(S) PO NEEDED 08/16/2019 08/21/2019 Inactive Patient requests 90 days supply levothyroxine 50 mcg tablet RxNorm: 450832 1 Tablet(s) PO QD 201811/09/2019 Inactive isosorbide mononitrate ER 30 mg tablet,extended release 24 h r RxNorm: 405103 Tablet(s) 1 TABLET(S) PO NEEDED 06/27/2019 08/15/2019 Inactive Patient requests 90 days supply isosorbide mononitrate ER 30 mg tablet,extended release 24 h r RxNorm: 544167 1 Tablet(s) PO QD as needed 06/27/2019 06/27/2019 Inactive Neris ent requests 90 days supply carvedilol 25 mg tablet RxNorm: 387118 1 TABLET(S) PO BID 06/27/2019 08/22/2019 Inactive furosemide 40 mg tablet RxNorm: 694540 1 Tablet(s) PO QAM 06/21/2019 12/17/2019 Active carvedilol 25 mg tablet RxNorm: 550949 1 Tablet(s) PO BID 05/13/2019 06/26/2019 Inactive Xanax 0.25 mg tablet RxNorm: 374507 1/2 Tablet(s) PO Q6H as needed 05/13/2019 09/07/2019 Inactive levothyroxine 50 mcg tablet RxNorm: 528515 1 Tablet(s) PO QD 201808/07/2019 Inactive losartan 50 mg tablet RxNorm: 972462 1 Tablet(s) PO QD 04/26/2019 Inactive losartan 50 mg tablet RxNorm: 490115 1 Tablet(s) PO QD 04/20/201901/2019 Inactive pravastatin 40 mg tablet RxNorm: 034710 1 Tablet(s) PO QD 04/07/2019 06/05/2019 Inactive isosorbide mononitrate ER 30 mg tablet,extended release 24 h r RxNorm: 848397 1 Tablet(s) PO as needed 04/07/2019 04/06/2019 Inactive isosorbide mononitrate ER 30 mg tablet,extended release 24 h r RxNorm: 281181 1 TABLET(S) PO NEEDED 04/07/2019 06/26/2019 Inactive Patient requests 90 days supply losartan 50 mg tablet RxNorm: 923336 1 Tablet(s) PO QD 03/22/2019 Inactive carvedilol 25 mg tablet RxNorm: 734842 1 Tablet(s) PO BID No Start Date 05/12/2019 Inactive losartan 50 mg tablet RxNorm: 024110 1 Tablet(s) PO QD No Start Date 03/21/2019 Inactive Ventolin HFA 90 mcg/actuation aerosol inhaler RxNorm: 712005 1-2 Puff(s) INH as needed No Start Date 09/07/2019 Inactive furosemide 40 mg tablet RxNorm: 225547 1 Tablet(s) PO QAM No Start Date 06/20/2019 Inactive pravastatin 40 mg tablet RxNorm: 943535 1 Tablet(s) PO QD No Start Date 04/06/2019 Inactive Coumadin 2 mg tablet RxNorm: 135718 1 Tablet(s) PO Mon, Fri, Sat and Sun then 2 tablets (4mg) on , Thu and No Start Date 10/10/2019 Inactive isosorbide mononitrate ER 30 mg tablet,extended release 24 h r RxNorm: 175800 Tablet(s) PO as needed No Start Date [...] ER 10 mEq capsule,extended release RxNorm : 651444 1 Capsule(s) PO QD No Start Date 09/20/2019 Inactive levothyroxine 50 mcg tablet RxNorm: 216005 1 Tablet(s) PO QD No Sta rt Date 04/25/2019 Inactive Medication Administered No Medication Administered data Immunizations Vaccine Codes Date Status Influenza CVX: 135 07/02/2019 Results Observation Observation Code Item Item Code Result Date S ervice Location PT 1882315 PT 31.4 Seconds 10/26/2019 Unknow n PT [id number] INR 2.9 10/26/2019 Unknown PT 3217720 PT 17.6 Seconds 10/11/2019 Unknow n PT [id number] INR 1.4 10/11/2019 Unknown PT 6573371 PT 23.7 Seconds 09/08/2019 Unknow n PT [id number] INR 2.0 09/08/2019 Unknown PT 9559909 PT 23.2 Seconds 07/29/2019 Unknow n PT [id number] INR 2.0 07/29/2019 Unknown PT 3012712 PT 14.3 Seconds 07/18/2019 Unknow n PT 7852367 INR 1.1 07/18/2019 [place] [address] Glucose 75 mg/dL 07/06 [place] [address] CREATININE 0.61 mg/dL [place] [address] BUN 15 mg/dL 07/06 [place] [address] SODIUM 142 mmol/L 06/23 [place] [address] POTASSIUM 4.0 mmol/L 06/23 [place] [address] CHLORIDE 106 mmol/L 06/23 [place] [address] Bicarbonate 28 mmol/L [place] [address] AGAP 8 mmol/L 07/06 [place] [address] CALCIUM 9.3 mg/dL 07/06 Unknown PT 5561363 PT 17.4 Seconds 07/06/2019 Unknow n PT 9256864 INR 1.4 07/06/2019 Unknown GFR CALC 3254814 GFR Non Afr Amr >60 mL/min 07/06/2019 Un known GFR CALC 1257125 GFR Afr Amr >60 mL/min 07/06/2019 Unknow n COMPLETE BLOOD COUNT 4882074 WBC 4.7 10e9/L 07/06/20 19 Unknown COMPLETE BLOOD COUNT 5223953 RBC 4.19 10e12/L 2018 Unknown COMPLETE BLOOD COUNT 2318332 HEMOGLOBIN 12.6 g/dL 07/06/20 19 Unknown COMPLETE BLOOD COUNT 3619418 HEMATOCRIT 39.4 % 07/06/20 19 Unknown COMPLETE BLOOD COUNT 9915849 MCV 94.0 fL 9 Unknown COMPLETE BLOOD COUNT 9633039 MCH 30.1 pg 9 Unknown COMPLETE BLOOD COUNT 3097701 MCHC 32.0 g/dL 9 Unknown COMPLETE BLOOD COUNT 8315519 PLATELET COUNT 160 10e9/L Unknown COMPLETE BLOOD COUNT 5639546 Mean Plt Volume 11.0 fL Unknown COMPLETE BLOOD COUNT 1743995 Neut Auto 56.6 % 9 Unknown COMPLETE BLOOD COUNT 9303048 Lymph Auto 27.0 % 07/06/20 19 Unknown COMPLETE BLOOD COUNT 3672316 [place] Auto 13.7 % 9 Unknown COMPLETE BLOOD COUNT 6873507 RDW 14.6 % 9 Unknown COMPLETE BLOOD COUNT 9546722 Eos Auto 2.1 % 9 Unknown COMPLETE BLOOD COUNT 8342144 Baso Auto 0.6 % 9 Unknown COMPLETE BLOOD COUNT 4207674 Neutrophil Abs 2.66 10e9/L Unknown COMPLETE BLOOD COUNT 4559680 Lymphocyte Abs 1.27 10e9/L Unknown COMPLETE BLOOD COUNT 2358551 Monocyte Abs 0.64 10e9/L 06/23 Unknown COMPLETE BLOOD COUNT 0580218 Eosinophil Abs 0.10 10e9/L Unknown COMPLETE BLOOD COUNT 0409522 RDW-SD 48.7 fL 9 Unknown COMPLETE BLOOD COUNT [id number] Basophil Abs 0.03 10e9/L 06/23 Unknown COMPLETE BLOOD COUNT 3947303 WBC 4.6 10e9/L 06/14/20 19 Unknown COMPLETE BLOOD COUNT 5634131 RBC 4.16 10e12/L 2018 Unknown COMPLETE BLOOD COUNT 1469852 HEMOGLOBIN 12.6 g/dL 06/14/20 19 Unknown COMPLETE BLOOD COUNT 6501677 HEMATOCRIT 39.1 % 06/14/20 19 Unknown COMPLETE BLOOD COUNT 1902186 MCV 94.0 fL 9 Unknown COMPLETE BLOOD COUNT 2483535 MCH 30.3 pg 9 Unknown COMPLETE BLOOD COUNT 7439188 MCHC 32.2 g/dL 9 Unknown COMPLETE BLOOD COUNT 3790467 PLATELET COUNT 167 10e9/L Unknown COMPLETE BLOOD COUNT 4657364 Mean Plt Volume 10.9 fL Unknown COMPLETE BLOOD COUNT 7222891 Neut Auto 59.6 % 9 Unknown COMPLETE BLOOD COUNT 2779767 Lymph Auto 24.1 % 06/14/20 19 Unknown COMPLETE BLOOD COUNT 3834779 [place] Auto 14.0 % 9 Unknown COMPLETE BLOOD COUNT 7740721 RDW 14.8 % 9 Unknown COMPLETE BLOOD COUNT 6761292 Eos Auto 1.9 % 9 Unknown COMPLETE BLOOD COUNT 5785759 Baso Auto 0.4 % 9 Unknown COMPLETE BLOOD COUNT 2406452 Neutrophil Abs 2.74 10e9/L Unknown COMPLETE BLOOD COUNT 0543086 Lymphocyte Abs 1.11 10e9/L Unknown COMPLETE BLOOD COUNT 5703094 Monocyte Abs 0.64 10e9/L 05/24 Unknown COMPLETE BLOOD COUNT 2589989 Eosinophil Abs 0.09 10e9/L Unknown COMPLETE BLOOD COUNT 8476439 RDW-SD 49.3 fL 9 Unknown COMPLETE BLOOD COUNT 9241971 Basophil Abs 0.02 10e9/L 05/24 Unknown PT 6064990 PT 22.3 Seconds 06/14/2019 Unknow n PT 4399031 INR 1.9 06/14/2019 Unknown COMPLETE BLOOD COUNT 5593464 WBC 4.0 10e9/L 05/13/20 19 Unknown COMPLETE BLOOD COUNT 8861359 RBC 3.82 10e12/L 2018 Unknown COMPLETE BLOOD COUNT 2741993 HEMOGLOBIN 11.5 g/dL 05/13/20 19 Unknown COMPLETE BLOOD COUNT 3516558 HEMATOCRIT 36.4 % 05/13/20 19 Unknown COMPLETE BLOOD COUNT 7837876 MCV 95.3 fL 9 Unknown COMPLETE BLOOD COUNT 5009238 MCH 30.1 pg 9 Unknown COMPLETE BLOOD COUNT 4256248 MCHC 31.6 g/dL 9 Unknown COMPLETE BLOOD COUNT 6769380 PLATELET COUNT 175 10e9/L Unknown COMPLETE BLOOD COUNT 3769605 Mean Plt Volume 10.5 fL Unknown COMPLETE BLOOD COUNT 7250873 Neut Auto 63.2 % 9 Unknown COMPLETE BLOOD COUNT 2312490 Lymph Auto 22.0 % 05/13/20 19 Unknown COMPLETE BLOOD COUNT 7537286 [place] Auto 12.1 % 9 Unknown COMPLETE BLOOD COUNT 0232367 RDW 14.9 % 9 Unknown COMPLETE BLOOD COUNT 7106204 Eos Auto 2.2 % 9 Unknown COMPLETE BLOOD COUNT 8741218 Baso Auto 0.5 % 9 Unknown COMPLETE BLOOD COUNT 8141281 Neutrophil Abs 2.53 10e9/L Unknown COMPLETE BLOOD COUNT 0429849 Lymphocyte Abs 0.88 10e9/L Unknown COMPLETE BLOOD COUNT 9045607 Monocyte Abs 0.48 10e9/L 04/24 Unknown COMPLETE BLOOD COUNT 4026165 Eosinophil Abs 0.09 10e9/L Unknown COMPLETE BLOOD COUNT 5995287 RDW-SD 49.6 fL 9 Unknown COMPLETE BLOOD COUNT 5635588 Basophil Abs 0.02 10e9/L 04/24 Unknown COMPREHENSIVE METABOLIC 50835 AST 18 U/L 2018 Unknown COMPREHENSIVE METABOLIC 82365 ALT 14 U/L 2018 Unknown COMPREHENSIVE METABOLIC 65401 BUN 15 mg/dL 2018 Unknown COMPREHENSIVE METABOLIC 82715 ALBUMIN 4.0 g/dL 2018 Unknown COMPREHENSIVE METABOLIC 03500 CHLORIDE 108 mmol/L 05/13 Unknown COMPREHENSIVE METABOLIC 25875 Bili Total 0.9 mg/dL 05/13 Unknown COMPREHENSIVE METABOLIC 20528 ALK PHOS 84 U/L 2018 Unknown COMPREHENSIVE METABOLIC 07877 SODIUM 142 mmol/L 05/13 Unknown COMPREHENSIVE METABOLIC 62727 CREATININE 0.72 mg/dL 04/24 Unknown COMPREHENSIVE METABOLIC 98626 CALCIUM 8.9 mg/dL 2018 Unknown COMPREHENSIVE METABOLIC 98974 POTASSIUM 4.0 mmol/L 05/13 Unknown COMPREHENSIVE METABOLIC 98529 Total Protein 5.5 g/dL Unknown COMPREHENSIVE METABOLIC 46426 Glucose 95 mg/dL 2018 Unknown COMPREHENSIVE METABOLIC 29019 Bicarbonate 27 mmol/L 04/24 Unknown COMPREHENSIVE METABOLIC 59316 AGAP 7 mmol/L 2018 Unknown GFR CALC 6157046 GFR Non Afr Amr >60 mL/min 05/13/2019 Un known GFR CALC 1257747 GFR Afr Amr >60 mL/min 05/13/2019 Unknow n THYROID STIMULATING HORMONE 44497 TSH 2.669 uIU/mL 05/13/2019 Unknown FREE T4 99317 T4 Free 1.19 ng/dL 05/13/2019 Unknown PT 5583168 PT 24.2 Seconds 05/06/2019 Unknow n PT 4840160 INR 2.1 05/06/2019 Unknown PT 4294193 PT 24.1 Seconds 03/08/2019 Unknow n PT 9459939 INR 2.9 03/08/2019 Unknown Procedures Procedure Codes Date ROUTINE VENIPUNCTURE CPT-4: 46559 11/10/2019 PROTHROMBIN TIME CPT-4: 38726 11/10/2019 PROTHROMBIN TIME CPT-4: 35257 10/26/2019 ROUTINE VENIPUNCTURE CPT-4: 92264 10/26/2019 ROUTINE VENIPUNCTURE CPT-4: 64787 10/11/2019 PT CPT-4: 6060289 10/11/2019 PPPS, initial visit CPT-4: G0438 09/20/2019 ROUTINE VENIPUNCTURE CPT-4: 15668 09/08/2019 PT CPT-4: 8951746 09/08/2019 THER/PROPH/DIAG INJ SC/IM CPT-4: 46740 09/08/2019 TRIAMCINOLONE ACET INJ NOS CPT-4: J3301 09/08/2019 ROUTINE VENIPUNCTURE CPT-4: 43101 07/29/2019 PT CPT-4: 3962533 07/29/2019 ROUTINE VENIPUNCTURE CPT-4: 58590 07/18/2019 PT CPT-4: 3429819 07/18/2019 METABOLIC PANEL TOTAL CA CPT-4: 59844 07/06/2019 COMPLETE CBC W/AUTO DIFF WBC CPT-4: 29993 07/06/2019 PROTHROMBIN TIME CPT-4: 89859 07/06/2019 ROUTINE VENIPUNCTURE CPT-4: 89330 06/14/2019 PROTHROMBIN TIME CPT-4: 11903 06/14/2019 COMPLETE CBC W/AUTO DIFF WBC CPT-4: 33686 06/14/2019 ROUTINE VENIPUNCTURE CPT-4: 75260 05/13/2019 COMPREHEN METABOLIC PANEL CPT-4: 33798 05/13/2019 COMPLETE CBC W/AUTO DIFF WBC CPT-4: 61372 05/13/2019 ASSAY THYROID STIM HORMONE CPT-4: 57892 05/13/2019 ASSAY OF FREE THYROXINE CPT-4: 42841 05/13/2019 PT CPT-4: 6192995 05/06/2019 ROUTINE VENIPUNCTURE CPT-4: 12766 05/06/2019 PT CPT-4: 4421535 04/07/2019 ROUTINE VENIPUNCTURE CPT-4: 88517 04/07/2019 ROUTINE VENIPUNCTURE CPT-4: 39319 03/08/2019 PROTHROMBIN TIME CPT-4: 02655 03/08/2019 Vital Signs Date Vital 11/03/2019 Blood [...] 1: 122/68 Code: 8480-6 BMI: 35.0 Code: 14293-2 Heart Rate 1: 72 bpm Height: 5'3" [...] 1: 114/78 Code: 8480-6 BMI: 36.1 Code: 55053-3 Heart Rate 1: 76 bpm Height: 5'3" [...] visit Encounters Encounter Performer Location Codes Date (70689) NURSE/OUTPATIENT VISIT EST Diagnosis: Long-term (current) use of anticoagulants, INR goal 2.0-3.0[ICD10: Z79.01] Becki Hernandez Advisor Client [facility] CPT-4: 28939 11/10/2019 ([id number]) OFFICE/OUTPATIENT VISIT EST Diagnosis: Post concussion syndrome[ICD10: F07.81] Diagnosis: Head contusion[ICD10: S00.93XA] Diagnosis: Chronic airway obstruction, not elsewhere classified[ICD10: J44.9] Becki Hernandez Advisor Client [facility] CPT-4: 03187 11/03/2019 ([id number]) OFFICE/OUTPATIENT VISIT EST Diagnosis: Fall as cause of accidental injury at home as place of occurrence[ICD10: W19.XXXA] Diagnosis: Headache[ICD10: R51] Diagnosis: Essential (primary) hypertension[ICD10: I10] Diagnosis: Long-term (current) use of anticoagulants, INR goal 2.0-3.0[ICD10: Z79.01] Diagnosis: Ecchymosis of left eye[ICD10: S05.12XA] Jannette Mayen PÉREZ Hernandez Advisor Client [facility] CPT-4: 66596 10/31/2019 ([id number]) NURSE/OUTPATIENT VISIT EST Diagnosis: Long-term (current) use of anticoagulants, INR goal 2.0-3.0[ICD10: Z79.01] Becki Hernandez Advisor Client [facility] CPT-4: 16156 10/26/2019 ([id number]) OFFICE/OUTPATIENT VISIT EST Diagnosis: Long-term (current) use of anticoagulants, INR goal 2.0-3.0[ICD10: Z79.01] Diagnosis: Pain in right arm[ICD10: M79.601] Diagnosis: Radiculopathy of arm[ICD10: M54.10] Jannette BLACK [facility] CPT-4: 42624 10/11/2019 ([id number]) OFFICE/OUTPATIENT VISIT EST Diagnosis: Long-term (current) use of anticoagulants, INR goal 2.0-3.0[ICD10: Z79.01] Diagnosis: Sinusitis[ICD10: J32.9] Diagnosis: Pain in right arm[ICD10: M79.601] Jannette BLACK [facility] CPT-4: 39652 09/08/2019 ([id number]) NURSE/OUTPATIENT VISIT EST Diagnosis: Chronic atrial fibrillation[ICD10: I48.2] Diagnosis: Encounter for therapeutic drug level monitoring[ICD10: Z51.81] Becki BLACK [facility] CPT-4: 31291 07/29/2019 ([id number]) NURSE/OUTPATIENT VISIT EST Diagnosis: Chronic atrial fibrillation[ICD10: I48.2] Diagnosis: Encounter for therapeutic drug level monitoring[ICD10: Z51.81] Becki BLACK [facility] CPT-4: 82196 07/18/2019 ([id number]) NURSE/OUTPATIENT VISIT EST Diagnosis: Encounter for therapeutic drug level monitoring[ICD10: Z51.81] Diagnosis: Chronic atrial fibrillation[ICD10: I48.2] Diagnosis: Essential (primary) hypertension[ICD10: I10] Becki BLACK [facility] CPT-4: 63705 07/06/2019 ([id number]) OFFICE/OUTPATIENT VISIT EST Diagnosis: Encounter for therapeutic drug level monitoring[ICD10: Z51.81] Diagnosis: Anemia, unspecified[ICD10: D64.9] Diagnosis: Bitten by dog, sequela[ICD10: W54.0XXS] 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] Becki BLACK [facility] CPT-4: 91905 06/14/2019 ([id number]) OFFICE/OUTPATIENT VISIT EST Diagnosis: Bitten by dog, sequela[ICD10: W54.0XXS] Diagnosis: Other fatigue[ICD10: R53.83] Diagnosis: Hypothyroidism, unspecified[ICD10: E03.9] Diagnosis: Muscle weakness (generalized)[ICD10: M62.81] Diagnosis: Generalized anxiety disorder[ICD10: F41.1] Jannette BLACK [facility] CPT-4: 37630 05/13/2019 ([id number]) NURSE/OUTPATIENT VISIT EST Diagnosis: Encounter for therapeutic drug level monitoring[ICD10: Z51.81] Becki BLACK [facility] CPT-4: 71212 05/06/2019 ([id number]) OFFICE/OUTPATIENT VISIT EST Diagnosis: Bitten by dog, sequela[ICD10: W54.0XXS] Diagnosis: Pain in right wrist[ICD10: M25.531] Diagnosis: Abrasion of right upper arm, sequela[ICD10: S40.811S] Diagnosis: Abrasion of left upper arm, sequela[ICD10: S40.812S] Jannette BLACK [facility] CPT-4: 23275 05/02/2019 ([id number]) NURSE/OUTPATIENT VISIT EST Diagnosis: Encounter for therapeutic drug level monitoring[ICD10: Z51.81] e[facility] CPT-4: 08953 04/07/2019 ([id number]) OFFICE/OUTPATIENT VISIT NEW Diagnosis: Encounter for therapeutic drug level monitoring[ICD10: Z51.81] Diagnosis: Chronic atrial fibrillation[ICD10: I48.2] Diagnosis: Essential (primary) hypertension[ICD10: I10] Diagnosis: Abnormal findings on diagnostic imaging of heart and coronary circulation[ICD10: R93.1] Diagnosis: Other forms of dyspnea[ICD10: R06.09] Diagnosis: Hypothyroidism, unspecified[ICD10: E03.9] Diagnosis: Mixed hyperlipidemia[ICD10: E78.2] [facility] CPT-4: 15960 03/08/2019 Plan of Care Planned Activity Notes [...] J44.9 11/03/2019 Appointment: [facility] [phone] [facility] [facility] 11/03/2019 Care Plan: CT HEAD/BRAIN W/O DYE LOINC : 76719-7 Pending 11/01/2019 Visit Diagnosis Plan: Essential (primary) [...] ICD-10 : S05.12XA 10/31/2019 Appointment: Jannette Mayen [address] [place], [place] [address] Hospital Follow Up 10/31/2019 Patient Education: High Blood Pressure Co mpleted 10/31/2019 Patient Education: losartan- Optimize[employer] Coupon [id number] [email or web address]://www.[email or web address] Teleservices/samplemd/resources/getResource/61/[email or web address] Completed 10/31/2019 Appointment: Becki Black WPtel: [phone] [facility] [id number] FOLLOW UP 10/26/2019 Visit Diagnosis Plan: Radiculopathy of arm Discussion: flexeril prescribed to take as needed. will start at low dose but instructed patient to call office if not effective and will increase mg dose. PT ordered at [facility] to assist with pain. if no improvement or worsening from PT, will need imaging. ICD-9 : 723.4 ICD-10 : M54.10 10/11/2019 Visit Diagnosis Plan: Long-term (current ) use of anticoagulants, INR goal 2.0-3.0 Discussion: will update pt/inr ICD-9 : V58.61 ICD-10 : Z79.01 10/11/2019 Appointment: Jannette Mayen [address] [place], [place] [address] ACUTE ILLNESS 10/11/2019 Patient Education: cyclobenzaprine- OptimizeRX Coupon [id number] https://www.[employer]/sampleImage Engine Design/resources/getResource/61/[email or web address] Completed 10/11/2019 Visit Diagnosis Plan: Mixed hyperlipidemia [...] on right--dscussed stretches, massage, accupuncture---patient had hired consumer attorney ICD-9 : 906.1 ICD-10 : W54.0XXS 09/20/2019 Visit Diagnosis Plan: Encounter for [facility] adult medical examination without abnormal findings Discussion: Mediterranean diet Combinati on of cardio and weight bearing exercise Had flu shot Update mammogram ICD-9 : V70.9 ICD-10 : Z00.00 09/20/2019 Appointment: Becki Black WPtel: [address] [place] [address] Annual Well Visit 09/20/2019 Visit Diagnosis Plan: [...] ICD-10 : Z79.01 09/08/2019 Appointment: Jannette Mayen [address] [place] [address] ACUTE ILLNESS 09/08/2019 Appointment: Becki Black WPtel: [address] [place] [address] US CANCELED 08/16/2019 Appointment: Becki Black WPtel: [address] [place] [address] US LAB 07/29/2019 Appointment: Becki Black WPtel: [address] [place] [address] US LAB 07/18/2019 Appointment: Becki Black WPtel: [address] [place] [address] US LAB 07/06/2019 Visit Diagnosis Plan: Encounter [...] Appointment: Becki Black WPtel: [phone] [id number] US FOLLOW UP 06/14/2019 Visit Diagnosis Plan: [...] hydrocodone several days ago. will refer to [facility] as well to discuss concerns. ICD-9 : 300.02 ICD-10 : F41.1 05/13/2019 Appointment: Jannette Mayen [address] [place], [place] [address] FOLLOW UP 05/13/2019 Patient Education: carvedilol- OptimizeRX Coupon [id number] https://www.[email or web address].com/samplemd/resources/getResource/61/52r9y429-8pgo-5282-6a Completed 05/13/2019 Patient Education: Xanax- Optimize[employer] Coupon [id number] https://www.[email or web address].com/samplemd/resources/getResource/61/[email or web address]-k7 1e-[email or web address].pdf Completed 05/13/2019 Appointment: Becki Black WPtel: [phone] [facility] US LAB 05/06/2019 Visit Diagnosis Plan: Pain in right wrist Discussion: xray ordered of wrist to rule out acute fracture. will send results to dr. portillo at [facility]. ICD-9 : 719.43 ICD-10 : [...] ICD-10 : S40.811S 05/02/2019 Appointment: Jannette Mayen [address] [place], [place] [id number] 05/02/2019 Care Plan: X-RAY EXAM OF WRIST right LOINC : 3 7302-7 Pending 05/02/2019 Appointment: Becki Black WPtel: [phone] [facility] US LAB 04/07/2019 Appointment: Beck[facility] [phone] [facility] [place] BP CHECK 03/22/2019 Visit Diagnosis Plan: Abnormal [...] I48.2 03/08/2019 Appointment: Becki Black [facility]Ptel[facility] [phone] [facility] [place] NEW PATIENT 03/08/2019 Instructions No Instructions Medical Equipment No Medical Equipment data Health Concerns Section Health Concerns data not found Goals Section Goals data not found Interventions Section Interventions data not found Health Status Evaluations/Outcomes Section Health Status Evaluations/Outcomes data not found Advance Directives No Advance Directive data
--- OUTSIDE RECORDS SUMMARY | 2019-11-24 06:50 | XMS REPORT | CCD ---
Author Author Tricia Black D.O. Organization [facility] Address [address] [place] [address] Phone Care Team Providers Care Traffic Lieutenant Name Role Phone PP Unavailable CCM Unavailable Summary Purpose Interface Exchange Insurance Providers Payer name Policy type / Coverage type Covered green party ID Effective Begin Date Effective End Date WPS MEDICARE PART B [place] Medicare Part B [id number] Unknown Unknown [facility] Medicare Part B [id number] Unknown Unknown Family history Grandmother Diagnosis Age [...] Unknown Retired 03/08/[address]: 353289563 Has never smoked or chewed tobacco 03/08/[address]: 233650 Currently drinks alcohol 03/08 Has the patient [...] Problems Condition Codes Effective Dates Condition Status Chronic airway obstruction, not elsewhere classified I [...] Headache ICD-9: 784.0 ICD-10: R51 10/31/2019 Active Long-term (current) use of anticoagulants, INR goal 2. 0-3.0 ICD-9: V58.61 ICD-10: Z79.01 09/08/2019 Active Pain in right arm ICD-9: 729.5 [...] Fill Instructions losartan 100 mg tablet RxNorm: 574039 1 Tablet(s) Oral QD 11/10/2019 02/08/2020 Active isosorbide mononitrate ER 30 mg tablet,extended release 24 h r RxNorm: 783696 TABLET(S) 1 TABLET(S) PO NEEDED 11/10/2019 05/08/2020 Active Patient requests 90 days supply Coumadin 2 mg tablet RxNorm: 276684 1 Tablet(s) Oral on and Thursday11/10/2019 No Stop Date Active Coumadin 4 mg tablet RxNorm: 724925 1 Tablet(s) Oral Thursday thr thursday11/10/2019 11/10/2019 Inactive losartan 100 mg tablet RxNorm: 423435 1 Tablet(s) Oral QD 11/10/2019 11/09/2019 Inactive losartan 50 mg tablet RxNorm: 607465 2 Tablet(s) Oral QD 11/01/2019 1 01/10/2019 Inactive potassium chloride ER 10 mEq capsule,extended release RxNorm : 371238 1 Capsule(s) Oral QD 10/26/2019 10/26/2019 Inactive potassium chloride ER 10 mEq tablet,extended release RxNorm: 561116 1 TABLET(S) ORAL QD 10/22/2019 04/18/2020 Active Replaces PA on 1 0MEQ Capsules Aspir-81 mg tablet,delayed release RxNorm: 951126 1 Tablet(s) O ral QD 10/11/2019 No Stop Date Active cyclobenzaprine 5 mg tablet RxNorm: 310885 1 Tablet(s) Oral two times a day as needed for muscle spasm 10/11/2019 No Stop Date Active Coumadin 4 mg tablet RxNorm: 018665 1 Tablet(s) Oral Mo through Thursday and 1/2 tablet (2mg) on Sat/Sun 10/11/2019 11/09/2019 Inactive potassium chloride ER 10 mEq tablet,extended release RxNorm: 066007 1 Tablet(s) Oral QD 09/22/2019 09/21/2019 Inactive Replaces PA on 1 0MEQ Capsules potassium chloride ER 10 mEq tablet,extended release RxNorm: 604458 1 Tablet(s) Oral QD 09/22/2019 10/10/2019 Inactive Replaces PA on 1 0MEQ Capsules potassium chloride ER 10 mEq capsule,extended release RxNorm : 806446 1 Capsule(s) Oral QD 09/21/2019 09/21/2019 Inactive carvedilol 25 mg tablet RxNorm: 564302 1 Tablet(s) Oral two antolin es a day 08/23/2019 11/21/2019 Active isosorbide mononitrate ER 30 mg tablet,extended release 24 h r RxNorm: 528471 TABLET(S) 1 TABLET(S) PO NEEDED 08/22/2019 11/09/2019 Inactive Patient requests 90 days supply isosorbide mononitrate ER 30 mg tablet,extended release 24 h r RxNorm: 306449 Tablet(s) 1 TABLET(S) PO NEEDED 08/16/2019 08/21/2019 Inactive Patient requests 90 days supply levothyroxine 50 mcg tablet RxNorm: 650138 1 Tablet(s) PO QD 201802/03/2020 Active isosorbide mononitrate ER 30 mg tablet,extended release 24 h r RxNorm: 502681 Tablet(s) 1 TABLET(S) PO NEEDED 06/27/2019 08/15/2019 Inactive Patient requests 90 days supply isosorbide mononitrate ER 30 mg tablet,extended release 24 h r RxNorm: 485636 1 Tablet(s) PO QD as needed 06/27/2019 06/27/2019 Inactive Neris ent requests 90 days supply carvedilol 25 mg tablet RxNorm: 617758 1 TABLET(S) PO BID 06/27/2019 08/22/2019 Inactive furosemide 40 mg tablet RxNorm: 363683 1 Tablet(s) PO QAM 06/21/2019 12/17/2019 Active carvedilol 25 mg tablet RxNorm: 396061 1 Tablet(s) PO BID 05/13/2019 06/26/2019 Inactive Xanax 0.25 mg tablet RxNorm: 441583 1/2 Tablet(s) PO Q6H as needed 05/13/2019 09/07/2019 Inactive levothyroxine 50 mcg tablet RxNorm: 302021 1 Tablet(s) PO QD 201808/07/2019 Inactive losartan 50 mg tablet RxNorm: 054668 1 Tablet(s) PO QD 04/26/2019 Inactive losartan 50 mg tablet RxNorm: 889314 1 Tablet(s) PO QD 04/20/201901/2019 Inactive pravastatin 40 mg tablet RxNorm: 295766 1 Tablet(s) PO QD 04/07/2019 06/05/2019 Inactive isosorbide mononitrate ER 30 mg tablet,extended release 24 h r RxNorm: 359080 1 Tablet(s) PO as needed 04/07/2019 04/06/2019 Inactive isosorbide mononitrate ER 30 mg tablet,extended release 24 h r RxNorm: 189561 1 TABLET(S) PO NEEDED 04/07/2019 06/26/2019 Inactive Patient requests 90 days supply losartan 50 mg tablet RxNorm: 123382 1 Tablet(s) PO QD 03/22/2019 Inactive carvedilol 25 mg tablet RxNorm: 515560 1 Tablet(s) PO BID No Start Date 05/12/2019 Inactive losartan 50 mg tablet RxNorm: 455232 1 Tablet(s) PO QD No Start Date 03/21/2019 Inactive Ventolin HFA 90 mcg/actuation aerosol inhaler RxNorm: 702512 1-2 Puff(s) INH as needed No Start Date 09/07/2019 Inactive furosemide 40 mg tablet RxNorm: 274486 1 Tablet(s) PO QAM No Start Date 06/20/2019 Inactive pravastatin 40 mg tablet RxNorm: 722382 1 Tablet(s) PO QD No Start Date 04/06/2019 Inactive Coumadin 2 mg tablet RxNorm: 715767 1 Tablet(s) PO Mon, Fri, Sat and Sun then 2 tablets (4mg) on , Thu and No Start Date 10/10/2019 Inactive isosorbide mononitrate ER 30 mg tablet,extended release 24 h r RxNorm: 282387 Tablet(s) PO as needed No Start Date [...] ER 10 mEq capsule,extended release RxNorm : 475361 1 Capsule(s) PO QD No Start Date 09/20/2019 Inactive levothyroxine 50 mcg tablet RxNorm: 283131 1 Tablet(s) PO QD No Sta rt Date 04/25/2019 Inactive Medication Administered No Medication Administered data Immunizations Vaccine Codes Date Status Influenza CVX: 135 07/02/2019 Results Observation Observation Code Item Item Code Result Date S ervice Location PT 8746734 PT 31.4 Seconds 10/26/2019 Unknow n PT 6081104 INR 2.9 10/26/2019 Unknown PT 7643867 PT 17.6 Seconds 10/11/2019 Unknow n PT 7504292 INR 1.4 10/11/2019 Unknown PT 4251261 PT 23.7 Seconds 09/08/2019 Unknow n PT [id number] INR 2.0 09/08/2019 Unknown PT 6468493 PT 23.2 Seconds 07/29/2019 Unknow n PT 1646605 INR 2.0 07/29/2019 Unknown PT 7838866 PT 14.3 Seconds 07/18/2019 Unknow n PT [id number] INR 1.1 07/18/2019 [place] [address] Glucose 75 mg/dL 07/06 [place] [address] CREATININE 0.61 mg/dL [place] [address] BUN 15 mg/dL 07/06 [place] [address] SODIUM 142 mmol/L 06/23 [place] [address] POTASSIUM 4.0 mmol/L 06/23 [place] [address] CHLORIDE 106 mmol/L 06/23 [place] [address] Bicarbonate 28 mmol/L [place] [address] AGAP 8 mmol/L 07/06 [place] [address] CALCIUM 9.3 mg/dL 07/06 Unknown PT 1347475 PT 17.4 Seconds 07/06/2019 Unknow n PT [id number] INR 1.4 07/06/2019 Unknown GFR CALC 1878693 GFR Non Afr Amr >60 mL/min 07/06/2019 Un known GFR CALC 5371104 GFR Afr Amr >60 mL/min 07/06/2019 Unknow n COMPLETE BLOOD COUNT 0491627 WBC 4.7 10e9/L 07/06/20 19 Unknown COMPLETE BLOOD COUNT [id number] RBC 4.19 10e12/L 2018 Unknown COMPLETE BLOOD COUNT [id number] HEMOGLOBIN 12.6 g/dL 07/06/20 19 Unknown COMPLETE BLOOD COUNT 7120229 HEMATOCRIT 39.4 % 07/06/20 19 Unknown COMPLETE BLOOD COUNT 4801501 MCV 94.0 fL 9 Unknown COMPLETE BLOOD COUNT 1858654 MCH 30.1 pg 9 Unknown COMPLETE BLOOD COUNT 5181967 MCHC 32.0 g/dL 9 Unknown COMPLETE BLOOD COUNT 4558541 PLATELET COUNT 160 10e9/L Unknown COMPLETE BLOOD COUNT 4218069 Mean Plt Volume 11.0 fL Unknown COMPLETE BLOOD COUNT 1762944 Neut Auto 56.6 % 9 Unknown COMPLETE BLOOD COUNT 5873027 Lymph Auto 27.0 % 07/06/20 19 Unknown COMPLETE BLOOD COUNT [id number] [place] Auto 13.7 % 9 Unknown COMPLETE BLOOD COUNT 8158351 RDW 14.6 % 9 Unknown COMPLETE BLOOD COUNT 2726214 Eos Auto 2.1 % 9 Unknown COMPLETE BLOOD COUNT 5764405 Baso Auto 0.6 % 9 Unknown COMPLETE BLOOD COUNT 7289408 Neutrophil Abs 2.66 10e9/L Unknown COMPLETE BLOOD COUNT [id number] Lymphocyte Abs 1.27 10e9/L Unknown COMPLETE BLOOD COUNT 1236667 Monocyte Abs 0.64 10e9/L 06/23 Unknown COMPLETE BLOOD COUNT 7130799 Eosinophil Abs 0.10 10e9/L Unknown COMPLETE BLOOD COUNT 1627496 RDW-SD 48.7 fL 9 Unknown COMPLETE BLOOD COUNT 4637346 Basophil Abs 0.03 10e9/L 06/23 Unknown COMPLETE BLOOD COUNT 7754438 WBC 4.6 10e9/L 06/14/20 19 Unknown COMPLETE BLOOD COUNT 9719886 RBC 4.16 10e12/L 2018 Unknown COMPLETE BLOOD COUNT 4502736 HEMOGLOBIN 12.6 g/dL 06/14/20 19 Unknown COMPLETE BLOOD COUNT 8733250 HEMATOCRIT 39.1 % 06/14/20 19 Unknown COMPLETE BLOOD COUNT [id number] MCV 94.0 fL 9 Unknown COMPLETE BLOOD COUNT 1507848 MCH 30.3 pg 9 Unknown COMPLETE BLOOD COUNT 3734626 MCHC 32.2 g/dL 9 Unknown COMPLETE BLOOD COUNT 8888329 PLATELET COUNT 167 10e9/L Unknown COMPLETE BLOOD COUNT 7533959 Mean Plt Volume 10.9 fL Unknown COMPLETE BLOOD COUNT 9828498 Neut Auto 59.6 % 9 Unknown COMPLETE BLOOD COUNT 9691705 Lymph Auto 24.1 % 06/14/20 19 Unknown COMPLETE BLOOD COUNT 8287108 [place] Auto 14.0 % 9 Unknown COMPLETE BLOOD COUNT 7513728 RDW 14.8 % 9 Unknown COMPLETE BLOOD COUNT 2581342 Eos Auto 1.9 % 9 Unknown COMPLETE BLOOD COUNT 3063813 Baso Auto 0.4 % 9 Unknown COMPLETE BLOOD COUNT 6042602 Neutrophil Abs 2.74 10e9/L Unknown COMPLETE BLOOD COUNT 7818207 Lymphocyte Abs 1.11 10e9/L Unknown COMPLETE BLOOD COUNT 2548928 Monocyte Abs 0.64 10e9/L 05/24 Unknown COMPLETE BLOOD COUNT 5253536 Eosinophil Abs 0.09 10e9/L Unknown COMPLETE BLOOD COUNT 6149142 RDW-SD 49.3 fL 9 Unknown COMPLETE BLOOD COUNT 2208062 Basophil Abs 0.02 10e9/L 05/24 Unknown PT 3675510 PT 22.3 Seconds 06/14/2019 Unknow n PT 3556881 INR 1.9 06/14/2019 Unknown COMPLETE BLOOD COUNT 5577872 WBC 4.0 10e9/L 05/13/20 19 Unknown COMPLETE BLOOD COUNT [id number] RBC 3.82 10e12/L 2018 Unknown COMPLETE BLOOD COUNT [id number] HEMOGLOBIN 11.5 g/dL 05/13/20 19 Unknown COMPLETE BLOOD COUNT 3126408 HEMATOCRIT 36.4 % 05/13/20 19 Unknown COMPLETE BLOOD COUNT 4026953 MCV 95.3 fL 9 Unknown COMPLETE BLOOD COUNT 6948000 MCH 30.1 pg 9 Unknown COMPLETE BLOOD COUNT 3936255 MCHC 31.6 g/dL 9 Unknown COMPLETE BLOOD COUNT 7427393 PLATELET COUNT 175 10e9/L Unknown COMPLETE BLOOD COUNT 7987021 Mean Plt Volume 10.5 fL Unknown COMPLETE BLOOD COUNT 1930567 Neut Auto 63.2 % 9 Unknown COMPLETE BLOOD COUNT 2664321 Lymph Auto 22.0 % 05/13/20 19 Unknown COMPLETE BLOOD COUNT 7336625 [place] Auto 12.1 % 9 Unknown COMPLETE BLOOD COUNT 3722569 RDW 14.9 % 9 Unknown COMPLETE BLOOD COUNT 2414581 Eos Auto 2.2 % 9 Unknown COMPLETE BLOOD COUNT 8128247 Baso Auto 0.5 % 9 Unknown COMPLETE BLOOD COUNT 6320993 Neutrophil Abs 2.53 10e9/L Unknown COMPLETE BLOOD COUNT 6423011 Lymphocyte Abs 0.88 10e9/L Unknown COMPLETE BLOOD COUNT 0223531 Monocyte Abs 0.48 10e9/L 04/24 Unknown COMPLETE BLOOD COUNT 4145696 Eosinophil Abs 0.09 10e9/L Unknown COMPLETE BLOOD COUNT 8542960 RDW-SD 49.6 fL 9 Unknown COMPLETE BLOOD COUNT 5226684 Basophil Abs 0.02 10e9/L 04/24 Unknown COMPREHENSIVE METABOLIC 92702 AST 18 U/L 2018 Unknown COMPREHENSIVE METABOLIC 74553 ALT 14 U/L 2018 Unknown COMPREHENSIVE METABOLIC 13324 BUN 15 mg/dL 2018 Unknown COMPREHENSIVE METABOLIC 26556 ALBUMIN 4.0 g/dL 2018 Unknown COMPREHENSIVE METABOLIC 54211 CHLORIDE 108 mmol/L 05/13 Unknown COMPREHENSIVE METABOLIC 63862 Bili Total 0.9 mg/dL 05/13 Unknown COMPREHENSIVE METABOLIC 82125 ALK PHOS 84 U/L 2018 Unknown COMPREHENSIVE METABOLIC 52033 SODIUM 142 mmol/L 05/13 Unknown COMPREHENSIVE METABOLIC 48558 CREATININE 0.72 mg/dL 04/24 Unknown COMPREHENSIVE METABOLIC 95079 CALCIUM 8.9 mg/dL 2018 Unknown COMPREHENSIVE METABOLIC 48999 POTASSIUM 4.0 mmol/L 05/13 Unknown COMPREHENSIVE METABOLIC 94813 Total Protein 5.5 g/dL Unknown COMPREHENSIVE METABOLIC 04237 Glucose 95 mg/dL 2018 Unknown COMPREHENSIVE METABOLIC 92658 Bicarbonate 27 mmol/L 04/24 Unknown COMPREHENSIVE METABOLIC 23567 AGAP 7 mmol/L 2018 Unknown GFR CALC 1756583 GFR Non Afr Amr >60 mL/min 05/13/2019 Un known GFR CALC 4546753 GFR Afr Amr >60 mL/min 05/13/2019 Unknow n THYROID STIMULATING HORMONE 53413 TSH 2.669 uIU/mL 05/13/2019 Unknown FREE T4 68766 T4 Free 1.19 ng/dL 05/13/2019 Unknown PT 9794585 PT 24.2 Seconds 05/06/2019 Unknow n PT 3190639 INR 2.1 05/06/2019 Unknown PT 0247606 PT 24.1 Seconds 03/08/2019 Unknow n PT 9738773 INR 2.9 03/08/2019 Unknown Procedures Procedure Codes Date PROTHROMBIN TIME CPT-4: 18131 10/26/2019 ROUTINE VENIPUNCTURE CPT-4: 50111 10/26/2019 ROUTINE VENIPUNCTURE CPT-4: 84417 10/11/2019 PT CPT-4: 9955377 10/11/2019 PPPS, initial visit CPT-4: G0438 09/20/2019 ROUTINE VENIPUNCTURE CPT-4: 29969 09/08/2019 PT CPT-4: 3831554 09/08/2019 THER/PROPH/DIAG INJ SC/IM CPT-4: 92879 09/08/2019 TRIAMCINOLONE ACET INJ NOS CPT-4: J3301 09/08/2019 ROUTINE VENIPUNCTURE CPT-4: 25572 07/29/2019 PT CPT-4: 8174382 07/29/2019 ROUTINE VENIPUNCTURE CPT-4: 64573 07/18/2019 PT CPT-4: 6137478 07/18/2019 METABOLIC PANEL TOTAL CA CPT-4: 73635 07/06/2019 COMPLETE CBC W/AUTO DIFF WBC CPT-4: 76400 07/06/2019 PROTHROMBIN TIME CPT-4: 89421 07/06/2019 ROUTINE VENIPUNCTURE CPT-4: 29254 06/14/2019 PROTHROMBIN TIME CPT-4: 52327 06/14/2019 COMPLETE CBC W/AUTO DIFF WBC CPT-4: 87954 06/14/2019 ROUTINE VENIPUNCTURE CPT-4: 36854 05/13/2019 COMPREHEN METABOLIC PANEL CPT-4: 53974 05/13/2019 COMPLETE CBC W/AUTO DIFF WBC CPT-4: 21387 05/13/2019 ASSAY THYROID STIM HORMONE CPT-4: 65078 05/13/2019 ASSAY OF FREE THYROXINE CPT-4: 95322 05/13/2019 PT CPT-4: 1370059 05/06/2019 ROUTINE VENIPUNCTURE CPT-4: 47774 05/06/2019 PT CPT-4: 1787961 04/07/2019 ROUTINE VENIPUNCTURE CPT-4: 90466 04/07/2019 ROUTINE VENIPUNCTURE CPT-4: 67021 03/08/2019 PROTHROMBIN TIME CPT-4: 12884 03/08/2019 Vital Signs Date Vital 11/03/2019 Blood [...] 1: 122/68 Code: 8480-6 BMI: 35.0 Code: 89453-7 Heart Rate 1: 72 bpm Height: 5'3" [...] 03/22/2019 Blood Pressure 1: 122/70 Code: 8480-6 art Rate 1: 85 bpm 03/08/2019 Blood Pressure 1: 114/78 Code: 8480-6 BMI: 36.1 Code: 71566-1 Heart Rate 1: 76 bpm Height: 5'3" Respiratory Rate: 20 bpm SpO2: 97% Tempera ture: 37.1 (C) / 98.8 (F) Weight: 207 lbs Functional Status No Functional Status data Reason For Visit Reason For Visit Effective Dates Notes follow up 11/03/2019 headache 10/31/2019 lab draw [...] visit Encounters Encounter Performer Location Codes Date ([id number]) OFFICE/OUTPATIENT VISIT EST Diagnosis: Post concussion syndrome[ICD10: F07.81] Diagnosis: Head contusion[ICD10: S00.93XA] Diagnosis: Chronic airway obstruction, not elsewhere classified[ICD10: J44.9] Jeanie CONNELL [employer] CPT-4: 36835 11/03/2019 ([id number]) OFFICE/OUTPATIENT VISIT EST Diagnosis: Fall as cause of accidental injury at home as place of occurrence[ICD10: W19.XXXA] Diagnosis: Headache[ICD10: R51] Diagnosis: Essential (primary) hypertension[ICD10: I10] Diagnosis: Long-term (current) use of anticoagulants, INR goal 2.0-3.0[ICD10: Z79.01] Diagnosis: Ecchymosis of left eye[ICD10: S05.12XA] Jannette Tiarrapeg GUERRA [employer] CPT-4: 61909 10/31/2019 ([id number]) NURSE/OUTPATIENT VISIT EST Diagnosis: Long-term (current) use of anticoagulants, INR goal 2.0-3.0[ICD10: Z79.01] Jeanie CONNELL [employer] CPT-4: 89944 10/26/2019 ([id number]) OFFICE/OUTPATIENT VISIT EST Diagnosis: Long-term (current) use of anticoagulants, INR goal 2.0-3.0[ICD10: Z79.01] Diagnosis: Pain in right arm[ICD10: M79.601] Diagnosis: Radiculopathy of arm[ICD10: M54.10] Jannette HAMILTON [email or web address] CPT-4: 71592 10/11/2019 ([id number]) OFFICE/OUTPATIENT VISIT EST Diagnosis: Long-term (current) use of anticoagulants, INR goal 2.0-3.0[ICD10: Z79.01] Diagnosis: Sinusitis[ICD10: J32.9] Diagnosis: Pain in right arm[ICD10: M79.601] Jannette Parra [employer] CPT-4: 18140 09/08/2019 ([id number]) NURSE/OUTPATIENT VISIT EST Diagnosis: Chronic atrial fibrillation[ICD10: I48.2] Diagnosis: Encounter for therapeutic drug level monitoring[ICD10: Z51.81] Jeanie BLACK DO [facility] CPT-4: 49287 07/29/2019 ([id number]) NURSE/OUTPATIENT VISIT EST Diagnosis: Chronic atrial fibrillation[ICD10: I48.2] Diagnosis: Encounter for therapeutic drug level monitoring[ICD10: Z51.81] Jeanie BLACK DO [facility] CPT-4: 95040 07/18/2019 ([id number]) NURSE/OUTPATIENT VISIT EST Diagnosis: Encounter for therapeutic drug level monitoring[ICD10: Z51.81] Diagnosis: Chronic atrial fibrillation[ICD10: I48.2] Diagnosis: Essential (primary) hypertension[ICD10: I10] Jeanie BLACK DO [facility] CPT-4: 90102 07/06/2019 ([id number]) OFFICE/OUTPATIENT VISIT EST Diagnosis: Encounter for therapeutic drug level monitoring[ICD10: Z51.81] Diagnosis: Anemia, unspecified[ICD10: D64.9] Diagnosis: Bitten by dog, sequela[ICD10: W54.0XXS] 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] Jeanie BLACK [employer] [facility] CPT-4: 05021 06/14/2019 ([id number]) OFFICE/OUTPATIENT VISIT EST Diagnosis: Bitten by dog, sequela[ICD10: W54.0XXS] Diagnosis: Other fatigue[ICD10: R53.83] Diagnosis: Hypothyroidism, unspecified[ICD10: E03.9] Diagnosis: Muscle weakness (generalized)[ICD10: M62.81] Diagnosis: Generalized anxiety disorder[ICD10: F41.1] Jannette BLACK [employer] [facility] CPT-4: 63140 05/13/2019 ([id number]) NURSE/OUTPATIENT VISIT EST Diagnosis: Encounter for therapeutic drug level monitoring[ICD10: Z51.81] Jeanie BLACK [employer] [facility] CPT-4: 13938 05/06/2019 ([id number]) OFFICE/OUTPATIENT VISIT EST Diagnosis: Bitten by dog, sequela[ICD10: W54.0XXS] Diagnosis: Pain in right wrist[ICD10: M25.531] Diagnosis: Abrasion of right upper arm, sequela[ICD10: S40.811S] Diagnosis: Abrasion of left upper arm, sequela[ICD10: S40.812S] Jannette Mayen JEANIE Hernandez [employer] CPT-4: 42118 05/02/2019 ([id number]) NURSE/OUTPATIENT VISIT EST Diagnosis: Encounter for therapeutic drug level monitoring[ICD10: Z51.81] Jeanie Hernandez [employer] CPT-4: 61415 04/07/2019 ([id number]) OFFICE/OUTPATIENT VISIT NEW Diagnosis: Encounter for therapeutic drug level monitoring[ICD10: Z51.81] Diagnosis: Chronic atrial fibrillation[ICD10: I48.2] Diagnosis: Essential (primary) hypertension[ICD10: I10] Diagnosis: Abnormal findings on diagnostic imaging of heart and coronary circulation[ICD10: R93.1] Diagnosis: Other forms of dyspnea[ICD10: R06.09] Diagnosis: Hypothyroidism, unspecified[ICD10: E03.9] Diagnosis: Mixed hyperlipidemia[ICD10: E78.2] Jeanie Hernandez [employer] CPT-4: 94316 03/08/2019 Plan of Care Planned Activity Notes [...] : 496 ICD-10 : J44.9 11/03/2019 [facility]ment[facility] [phone] [facility] [facility] 11/03/2019 Care Plan: CT HEAD/BRAIN W/O DYE [facility] : 79459-4 Pending 11/01/2019 Visit Diagnosis Plan: Essential (primary) [...] ICD-10 : S05.12XA 10/31/2019 Appointment: Jannette Mayen [address] [place] [address] Follow Up 10/31/2019 Patient Education: High Blood Pressure Co mpleted 10/31/2019 Patient Education: losartan- [employer] Coupon [id number] https://www.[employer].com/samplemd/resources/getResource/61/5x306170-6w24-2612-9u Completed 10/31/2019 Appointment: Jeanie Black WPtel: [address] [place], [place] [id number] FOLLOW UP 10/26/2019 Visit Diagnosis Plan: Radiculopathy of arm Discussion: flexeril prescribed to take as needed. will start at low dose but instructed patient to call office if not effective and will increase mg dose. PT ordered at [facility] to assist with pain. if no improvement or worsening from PT, will need imaging. ICD-9 : 723.4 ICD-10 : M54.10 10/11/2019 Visit Diagnosis Plan: Long-term (current ) use of anticoagulants, INR goal 2.0-3.0 Discussion: will update pt/inr ICD-9 : V58.61 ICD-10 : Z79.01 10/11/2019 Appointment: [facility] [address] [facility] AC[facility] ILL[facility] 10/11/2019 Patient Education: cyclobenzaprine- [employer] Diane [phone] https://www.[employer]/sampleEnlightened Lifestyle/resources/getResource/61/16e8q2d2-04g4-9v67-00 Completed 10/11/2019 Visit Diagnosis Plan: Mixed hyperlipidemia [...] on right--dscussed stretches, massage, accupuncture---patient had hired bankruptcy attorney ICD-9 : 906.1 ICD-10 : W54.0XXS 09/20/2019 Visit Diagnosis Plan: Encounter for [facility] adult medical examination without abnormal findings Discussion: Mediterranean diet Combinati on of cardio and weight bearing exercise Had flu shot Update mammogram ICD-9 : V70.9 ICD-10 : Z00.00 09/20/2019 Appointment: [facility]el[facility] [phone] [facility] Annual Well Visit 09/20/2019 Visit Diagnosis Plan: [...] ICD-10 : Z79.01 09/08/2019 Appointment: Jannette Mayen [address] [place] [address] ACUTE ILLNESS 09/08/2019 Appointment: Jeanie Black WPtel: [address] [place] [address] US CANCELED 08/16/2019 Appointment: Jeanie Black WPtel: [address] [place] [address] US LAB 07/29/2019 Appointment: Jeanie Black WPtel: [address] [place] [address] US LAB 07/18/2019 Appointment: Jeanie Black WPtel: [address] [place] [address] US LAB 07/06/2019 Visit Diagnosis Plan: Encounter [...] Plan: Bitten by dog, sequela Discussio n: Is seeing counselor which is helping Has started PT for left wrist ICD-9 : 906.1 ICD-10 : W54.0XXS 06/14/2019 Appointment: Jeanie Black WPtel: [address] [place] [address] US FOLLOW UP 06/14/2019 Visit Diagnosis Plan: [...] hydrocodone several days ago. will refer to [facility] as well to discuss concerns. ICD-9 : 300.02 ICD-10 : F41.1 05/13/2019 Appointment: Jannette Mayen [address] [place], [place] [address] [place] FOLLOW UP 05/13/2019 Patient Education: carvedilol- [employer] Coupon [phone] https://www.[employer]/samplemd/resources/getResource/61/49n3d332-3ugv-1426-5f Completed 05/13/2019 Patient Education: Xanax- [employer] Coupon [id number] https://www.[employer]/samplemd/resources/getResource/61/8269v6d8-3u92-9l3m-x8 1e-4e19389483b5.pdf Completed 05/13/2019 Appointment: [facility]el[facility] [phone] [facility] [facility] 05/06/2019 Visit Diagnosis Plan: Pain in right wrist Discussion: xray ordered of wrist to rule out acute fracture. will send results to dr. portillo at [facility]. ICD-9 : 719.43 ICD-10 : M25.531 05/02/2019 Visit Diagnosis Plan: Bitten by dog, halley Discussio n: had tetanus shot yesterday in [...] ICD-10 : S40.811S 05/02/2019 Appointment: Jannette Mayen [address] [place] [address] ACUTE ILLNESS 05/02/2019 Care Plan: X-RAY EXAM OF WRIST right LOINC : 3 7302-7 Pending 05/02/2019 Appointment: Jeanie Black WPtel: [address] [place] [address] LAB 04/07/2019 Appointment: Jeanie Black WPtel: [address] [place] [address] BP CHECK 03/22/2019 Visit Diagnosis Plan: Abnormal [...] : 427.31 ICD-10 : I48.2 03/08/2019 Appointment: [facility] Black [facility]el[facility] [phone] [facility] NEW PATIENT 03/08/2019 Instructions No Instructions Medical Equipment No Medical Equipment data Health Concerns Section Health Concerns data not found Goals Section Goals data not found Interventions Section Interventions data not found Health Status Evaluations/Outcomes Section Health Status Evaluations/Outcomes data not found Advance Directives No Advance Directive data
--- OUTSIDE RECORDS SUMMARY | 2019-11-24 06:50 | XMS REPORT | CCD ---
Author Author Tricia Black D.O. Organization [facility] Address [address] [place] [address] Phone Care Team Providers Care Managing Director Name Role Phone PP Unavailable CCM Unavailable Summary Purpose Interface Exchange Insurance Providers Payer name Policy type / Coverage type Covered alliance party ID Effective Begin Date Effective End Date WPS MEDICARE PART B [place] Medicare Part B [id number] Unknown Unknown [facility] Medicare Part B [id number] Unknown Unknown Family history Grandmother Diagnosis Age [...] Unknown Retired 03/08/[address]: 841070338 Has never smoked or chewed tobacco 03/08/[address]: 488991 Currently drinks alcohol 03/08 Has the patient [...] Fill Instructions losartan 100 mg tablet RxNorm: 133521 1 Tablet(s) Oral QD 11/10/2019 02/08/2020 Active isosorbide mononitrate ER 30 mg tablet,extended release 24 h r RxNorm: 788952 TABLET(S) 1 TABLET(S) PO NEEDED 11/10/2019 05/08/2020 Active Patient requests 90 days supply carvedilol 25 mg tablet RxNorm: 056542 1 Tablet(s) Oral two antolin es a day 11/10/2019 05/08/2020 Active Coumadin 2 mg tablet RxNorm: 697792 1 Tablet(s) Oral on and Thursday11/10/2019 No Stop Date Active levothyroxine 50 mcg tablet RxNorm: 465026 1 Tablet(s) Oral QD 10/2305/08/2020 Active Coumadin 4 mg tablet RxNorm: 777044 1 Tablet(s) Oral Thursday11/10/2019 11/10/2019 Inactive losartan 100 mg tablet RxNorm: 018145 1 Tablet(s) Oral QD 11/10/2019 11/09/2019 Inactive losartan 50 mg tablet RxNorm: 707901 2 Tablet(s) Oral QD 11/01/2019 1 01/10/2019 Inactive potassium chloride ER 10 mEq capsule,extended release RxNorm : 649039 1 Capsule(s) Oral QD 10/26/2019 10/26/2019 Inactive potassium chloride ER 10 mEq tablet,extended release RxNorm: 384328 1 TABLET(S) ORAL QD 10/22/2019 04/18/2020 Active Replaces PA on 1 0MEQ Capsules Aspir-81 mg tablet,delayed release RxNorm: 066883 1 Tablet(s) O ral QD 10/11/2019 No Stop Date Active cyclobenzaprine 5 mg tablet RxNorm: 013235 1 Tablet(s) Oral two times a day as needed for muscle spasm 10/11/2019 No Stop Date Active Coumadin 4 mg tablet RxNorm: 569506 1 Tablet(s) Oral Mo through Thursday and 1/2 tablet (2mg) on Sat/Sun 10/11/2019 11/09/2019 Inactive potassium chloride ER 10 mEq tablet,extended release RxNorm: 669100 1 Tablet(s) Oral QD 09/22/2019 09/21/2019 Inactive Replaces PA on 1 0MEQ Capsules potassium chloride ER 10 mEq tablet,extended release RxNorm: 400532 1 Tablet(s) Oral QD 09/22/2019 10/10/2019 Inactive Replaces PA on 1 0MEQ Capsules potassium chloride ER 10 mEq capsule,extended release RxNorm : 777030 1 Capsule(s) Oral QD 09/21/2019 09/21/2019 Inactive carvedilol 25 mg tablet RxNorm: 925238 1 Tablet(s) Oral two antolin es a day 08/23/2019 11/09/2019 Inactive isosorbide mononitrate ER 30 mg tablet,extended release 24 h r RxNorm: 469401 TABLET(S) 1 TABLET(S) PO NEEDED 08/22/2019 11/09/2019 Inactive Patient requests 90 days supply isosorbide mononitrate ER 30 mg tablet,extended release 24 h r RxNorm: 717589 Tablet(s) 1 TABLET(S) PO NEEDED 08/16/2019 08/21/2019 Inactive Patient requests 90 days supply levothyroxine 50 mcg tablet RxNorm: 251394 1 Tablet(s) PO QD 201811/09/2019 Inactive isosorbide mononitrate ER 30 mg tablet,extended release 24 h r RxNorm: 575271 Tablet(s) 1 TABLET(S) PO NEEDED 06/27/2019 08/15/2019 Inactive Patient requests 90 days supply isosorbide mononitrate ER 30 mg tablet,extended release 24 h r RxNorm: 039574 1 Tablet(s) PO QD as needed 06/27/2019 06/27/2019 Inactive Neris ent requests 90 days supply carvedilol 25 mg tablet RxNorm: 431288 1 TABLET(S) PO BID 06/27/2019 08/22/2019 Inactive furosemide 40 mg tablet RxNorm: 522021 1 Tablet(s) PO QAM 06/21/2019 12/17/2019 Active carvedilol 25 mg tablet RxNorm: 670081 1 Tablet(s) PO BID 05/13/2019 06/26/2019 Inactive Xanax 0.25 mg tablet RxNorm: 134973 1/2 Tablet(s) PO Q6H as needed 05/13/2019 09/07/2019 Inactive levothyroxine 50 mcg tablet RxNorm: 554785 1 Tablet(s) PO QD 201808/07/2019 Inactive losartan 50 mg tablet RxNorm: 846188 1 Tablet(s) PO QD 04/26/2019 Inactive losartan 50 mg tablet RxNorm: 018726 1 Tablet(s) PO QD 04/20/201901/2019 Inactive pravastatin 40 mg tablet RxNorm: 633616 1 Tablet(s) PO QD 04/07/2019 06/05/2019 Inactive isosorbide mononitrate ER 30 mg tablet,extended release 24 h r RxNorm: 104535 1 Tablet(s) PO as needed 04/07/2019 04/06/2019 Inactive isosorbide mononitrate ER 30 mg tablet,extended release 24 h r RxNorm: 325891 1 TABLET(S) PO NEEDED 04/07/2019 06/26/2019 Inactive Patient requests 90 days supply losartan 50 mg tablet RxNorm: 015720 1 Tablet(s) PO QD 03/22/2019 Inactive carvedilol 25 mg tablet RxNorm: 259897 1 Tablet(s) PO BID No Start Date 05/12/2019 Inactive losartan 50 mg tablet RxNorm: 727229 1 Tablet(s) PO QD No Start Date 03/21/2019 Inactive Ventolin HFA 90 mcg/actuation aerosol inhaler RxNorm: 532715 1-2 Puff(s) INH as needed No Start Date 09/07/2019 Inactive furosemide 40 mg tablet RxNorm: 182048 1 Tablet(s) PO QAM No Start Date 06/20/2019 Inactive pravastatin 40 mg tablet RxNorm: 727711 1 Tablet(s) PO QD No Start Date 04/06/2019 Inactive Coumadin 2 mg tablet RxNorm: 575103 1 Tablet(s) PO Mon, Fri, Sat and Sun then 2 tablets (4mg) on , Thu and No Start Date 10/10/2019 Inactive isosorbide mononitrate ER 30 mg tablet,extended release 24 h r RxNorm: 810488 Tablet(s) PO as needed No Start Date [...] ER 10 mEq capsule,extended release RxNorm : 639283 1 Capsule(s) PO QD No Start Date 09/20/2019 Inactive levothyroxine 50 mcg tablet RxNorm: 120492 1 Tablet(s) PO QD No Sta rt Date 04/25/2019 Inactive Medication Administered No Medication Administered data Immunizations Vaccine Codes Date Status Influenza CVX: 135 07/02/2019 Results Observation Observation Code Item Item Code Result Date S ervice Location PT 9564485 PT 31.4 Seconds 10/26/2019 Unknow n PT [id number] INR 2.9 10/26/2019 Unknown PT [id number] PT 17.6 Seconds 10/11/2019 Unknow n PT [id number] INR 1.4 10/11/2019 Unknown PT 1151562 PT 23.7 Seconds 09/08/2019 Unknow n PT 3991413 INR 2.0 09/08/2019 Unknown PT [id number] PT 23.2 Seconds 07/29/2019 Unknow n PT [id number] INR 2.0 07/29/2019 Unknown PT 1290908 PT 14.3 Seconds 07/18/2019 Unknow n PT 7320441 INR 1.1 07/18/2019 [place] [address] Glucose 75 mg/dL 07/06 [place] [address] CREATININE 0.61 mg/dL [place] [address] BUN 15 mg/dL 07/06 [place] [address] SODIUM 142 mmol/L 06/23 [place] [address] POTASSIUM 4.0 mmol/L 06/23 [place] [address] CHLORIDE 106 mmol/L 06/23 [place] [address] Bicarbonate 28 mmol/[place] [address] AGAP 8 mmol/L 07/06 [place] [address] CALCIUM 9.3 mg/dL 07/06 Unknown PT [id number] PT 17.4 Seconds 07/06/2019 Unknow n PT [id number] INR 1.4 07/06/2019 Unknown GFR CALC 4516564 GFR Non Afr Amr >60 mL/min 07/06/2019 Un known GFR CALC 7980620 GFR Afr Amr >60 mL/min 07/06/2019 Unknow n COMPLETE BLOOD COUNT 9414048 WBC 4.7 10e9/L 07/06/20 19 Unknown COMPLETE BLOOD COUNT [id number] RBC 4.19 10e12/L 2018 Unknown COMPLETE BLOOD COUNT 1668176 HEMOGLOBIN 12.6 g/dL 07/06/20 19 Unknown COMPLETE BLOOD COUNT 3734447 HEMATOCRIT 39.4 % 07/06/20 19 Unknown COMPLETE BLOOD COUNT 9029710 MCV 94.0 fL 9 Unknown COMPLETE BLOOD COUNT 6995286 MCH 30.1 pg 9 Unknown COMPLETE BLOOD COUNT 2153436 MCHC 32.0 g/dL 9 Unknown COMPLETE BLOOD COUNT 3398894 PLATELET COUNT 160 10e9/L Unknown COMPLETE BLOOD COUNT 4675693 Mean Plt Volume 11.0 fL Unknown COMPLETE BLOOD COUNT 0013277 Neut Auto 56.6 % 9 Unknown COMPLETE BLOOD COUNT 9919443 Lymph Auto 27.0 % 07/06/20 19 Unknown COMPLETE BLOOD COUNT 6854615 Billings Auto 13.7 % 9 Unknown COMPLETE BLOOD COUNT 1210324 RDW 14.6 % 9 Unknown COMPLETE BLOOD COUNT 5284395 Eos Auto 2.1 % 9 Unknown COMPLETE BLOOD COUNT 6128545 Baso Auto 0.6 % 9 Unknown COMPLETE BLOOD COUNT 2403217 Neutrophil Abs 2.66 10e9/L Unknown COMPLETE BLOOD COUNT 4404691 Lymphocyte Abs 1.27 10e9/L Unknown COMPLETE BLOOD COUNT 0489514 Monocyte Abs 0.64 10e9/L 06/23 Unknown COMPLETE BLOOD COUNT 9856776 Eosinophil Abs 0.10 10e9/L Unknown COMPLETE BLOOD COUNT 3622423 RDW-SD 48.7 fL 9 Unknown COMPLETE BLOOD COUNT 5659012 Basophil Abs 0.03 10e9/L 06/23 Unknown COMPLETE BLOOD COUNT 6662295 WBC 4.6 10e9/L 06/14/20 19 Unknown COMPLETE BLOOD COUNT 7155423 RBC 4.16 10e12/L 2018 Unknown COMPLETE BLOOD COUNT 4958446 HEMOGLOBIN 12.6 g/dL 06/14/20 19 Unknown COMPLETE BLOOD COUNT 1884372 HEMATOCRIT 39.1 % 06/14/20 19 Unknown COMPLETE BLOOD COUNT 5154705 MCV 94.0 fL 9 Unknown COMPLETE BLOOD COUNT 1570004 MCH 30.3 pg 9 Unknown COMPLETE BLOOD COUNT 2911745 MCHC 32.2 g/dL 9 Unknown COMPLETE BLOOD COUNT 3084524 PLATELET COUNT 167 10e9/L Unknown COMPLETE BLOOD COUNT 5788601 Mean Plt Volume 10.9 fL Unknown COMPLETE BLOOD COUNT 1984779 Neut Auto 59.6 % 9 Unknown COMPLETE BLOOD COUNT 4266605 Lymph Auto 24.1 % 06/14/20 19 Unknown COMPLETE BLOOD COUNT 3172713 Billings Auto 14.0 % 9 Unknown COMPLETE BLOOD COUNT 2445801 RDW 14.8 % 9 Unknown COMPLETE BLOOD COUNT 6346237 Eos Auto 1.9 % 9 Unknown COMPLETE BLOOD COUNT 9819452 Baso Auto 0.4 % 9 Unknown COMPLETE BLOOD COUNT 4408064 Neutrophil Abs 2.74 10e9/L Unknown COMPLETE BLOOD COUNT 0122425 Lymphocyte Abs 1.11 10e9/L Unknown COMPLETE BLOOD COUNT 0479403 Monocyte Abs 0.64 10e9/L 05/24 Unknown COMPLETE BLOOD COUNT 4138630 Eosinophil Abs 0.09 10e9/L Unknown COMPLETE BLOOD COUNT 8240312 RDW-SD 49.3 fL 9 Unknown COMPLETE BLOOD COUNT 9711820 Basophil Abs 0.02 10e9/L 05/24 Unknown PT 4490488 PT 22.3 Seconds 06/14/2019 Unknow n PT [id number] INR 1.9 06/14/2019 Unknown COMPLETE BLOOD COUNT 1046186 WBC 4.0 10e9/L 05/13/20 19 Unknown COMPLETE BLOOD COUNT 8345706 RBC 3.82 10e12/L 2018 Unknown COMPLETE BLOOD COUNT 3215028 HEMOGLOBIN 11.5 g/dL 05/13/20 19 Unknown COMPLETE BLOOD COUNT 9353531 HEMATOCRIT 36.4 % 05/13/20 19 Unknown COMPLETE BLOOD COUNT 9086312 MCV 95.3 fL 9 Unknown COMPLETE BLOOD COUNT 7078571 MCH 30.1 pg 9 Unknown COMPLETE BLOOD COUNT 6919262 MCHC 31.6 g/dL 9 Unknown COMPLETE BLOOD COUNT 9115559 PLATELET COUNT 175 10e9/L Unknown COMPLETE BLOOD COUNT 6773115 Mean Plt Volume 10.5 fL Unknown COMPLETE BLOOD COUNT 0766938 Neut Auto 63.2 % 9 Unknown COMPLETE BLOOD COUNT 2003398 Lymph Auto 22.0 % 05/13/20 19 Unknown COMPLETE BLOOD COUNT 9408995 Billings Auto 12.1 % 9 Unknown COMPLETE BLOOD COUNT 7171461 RDW 14.9 % 9 Unknown COMPLETE BLOOD COUNT 9903351 Eos Auto 2.2 % 9 Unknown COMPLETE BLOOD COUNT 2163196 Baso Auto 0.5 % 9 Unknown COMPLETE BLOOD COUNT 7273720 Neutrophil Abs 2.53 10e9/L Unknown COMPLETE BLOOD COUNT 7298085 Lymphocyte Abs 0.88 10e9/L Unknown COMPLETE BLOOD COUNT 8452400 Monocyte Abs 0.48 10e9/L 04/24 Unknown COMPLETE BLOOD COUNT 5777271 Eosinophil Abs 0.09 10e9/L Unknown COMPLETE BLOOD COUNT 6783253 RDW-SD 49.6 fL 9 Unknown COMPLETE BLOOD COUNT 9090445 Basophil Abs 0.02 10e9/L 04/24 Unknown COMPREHENSIVE METABOLIC 90582 AST 18 U/L 2018 Unknown COMPREHENSIVE METABOLIC 25760 ALT 14 U/L 2018 Unknown COMPREHENSIVE METABOLIC 86470 BUN 15 mg/dL 2018 Unknown COMPREHENSIVE METABOLIC 85654 ALBUMIN 4.0 g/dL 2018 Unknown COMPREHENSIVE METABOLIC 58533 CHLORIDE 108 mmol/L 05/13 Unknown COMPREHENSIVE METABOLIC 23501 Bili Total 0.9 mg/dL 05/13 Unknown COMPREHENSIVE METABOLIC 30074 ALK PHOS 84 U/L 2018 Unknown COMPREHENSIVE METABOLIC 35271 SODIUM 142 mmol/L 05/13 Unknown COMPREHENSIVE METABOLIC 77597 CREATININE 0.72 mg/dL 04/24 Unknown COMPREHENSIVE METABOLIC 91194 CALCIUM 8.9 mg/dL 2018 Unknown COMPREHENSIVE METABOLIC 75075 POTASSIUM 4.0 mmol/L 05/13 Unknown COMPREHENSIVE METABOLIC 59726 Total Protein 5.5 g/dL Unknown COMPREHENSIVE METABOLIC 44662 Glucose 95 mg/dL 2018 Unknown COMPREHENSIVE METABOLIC 93475 Bicarbonate 27 mmol/L 04/24 Unknown COMPREHENSIVE METABOLIC 83464 AGAP 7 mmol/L 2018 Unknown GFR CALC 6616223 GFR Non Afr Amr >60 mL/min 05/13/2019 Un known GFR CALC 9365731 GFR Afr Amr >60 mL/min 05/13/2019 Unknow n THYROID STIMULATING HORMONE 55291 TSH 2.669 uIU/mL 05/13/2019 Unknown FREE T4 86542 T4 Free 1.19 ng/dL 05/13/2019 Unknown PT 9477178 PT 24.2 Seconds 05/06/2019 Unknow n PT 6306781 INR 2.1 05/06/2019 Unknown PT 8205321 PT 24.1 Seconds 03/08/2019 Unknow n PT 8942900 INR 2.9 03/08/2019 Unknown Procedures Procedure Codes Date PROTHROMBIN TIME CPT-4: 80509 10/26/2019 ROUTINE VENIPUNCTURE CPT-4: 25804 10/26/2019 ROUTINE VENIPUNCTURE CPT-4: 37841 10/11/2019 PT CPT-4: 4095151 10/11/2019 PPPS, initial visit CPT-4: G0438 09/20/2019 ROUTINE VENIPUNCTURE CPT-4: 54342 09/08/2019 PT CPT-4: 7964537 09/08/2019 THER/PROPH/DIAG INJ SC/IM CPT-4: 94396 09/08/2019 TRIAMCINOLONE ACET INJ NOS CPT-4: J3301 09/08/2019 ROUTINE VENIPUNCTURE CPT-4: 97286 07/29/2019 PT CPT-4: 6224240 07/29/2019 ROUTINE VENIPUNCTURE CPT-4: 76131 07/18/2019 PT CPT-4: 1052763 07/18/2019 METABOLIC PANEL TOTAL CA CPT-4: 84571 07/06/2019 COMPLETE CBC W/AUTO DIFF WBC CPT-4: 64716 07/06/2019 PROTHROMBIN TIME CPT-4: 90363 07/06/2019 ROUTINE VENIPUNCTURE CPT-4: 77331 06/14/2019 PROTHROMBIN TIME CPT-4: 13924 06/14/2019 COMPLETE CBC W/AUTO DIFF WBC CPT-4: 55651 06/14/2019 ROUTINE VENIPUNCTURE CPT-4: 30387 05/13/2019 COMPREHEN METABOLIC PANEL CPT-4: 42775 05/13/2019 COMPLETE CBC W/AUTO DIFF WBC CPT-4: 16924 05/13/2019 ASSAY THYROID STIM HORMONE CPT-4: 80305 05/13/2019 ASSAY OF FREE THYROXINE CPT-4: 88815 05/13/2019 PT CPT-4: 4958716 05/06/2019 ROUTINE VENIPUNCTURE CPT-4: 99163 05/06/2019 PT CPT-4: 3530424 04/07/2019 ROUTINE VENIPUNCTURE CPT-4: 85004 04/07/2019 ROUTINE VENIPUNCTURE CPT-4: 94478 03/08/2019 PROTHROMBIN TIME CPT-4: 68431 03/08/2019 Vital Signs Date Vital 11/03/2019 Blood [...] 1: 122/68 Code: 8480-6 BMI: 35.0 Code: 02122-9 Heart Rate 1: 72 bpm Height: 5'3" [...] 1: 114/78 Code: 8480-6 BMI: 36.1 Code: 24993-6 Heart Rate 1: 76 bpm Height: 5'3" [...] blood pressure check 03/22/2019 ~generic 03/08/2019 New Patient---joshua sewell visit Encounters Encounter Performer Location Codes Date (83137) OFFICE/OUTPATIENT VISIT EST Diagnosis: Post concussion syndrome[ICD10: F07.81] Diagnosis: Head contusion[ICD10: S00.93XA] Diagnosis: Chronic airway obstruction, not elsewhere classified[ICD10: J44.9] Becki BLACK [facility] CPT-4: 58065 11/03/2019 ([id number]) OFFICE/OUTPATIENT VISIT EST Diagnosis: Fall as cause of accidental injury at home as place of occurrence[ICD10: W19.XXXA] Diagnosis: Headache[ICD10: R51] Diagnosis: Essential (primary) hypertension[ICD10: I10] Diagnosis: Long-term (current) use of anticoagulants, INR goal 2.0-3.0[ICD10: Z79.01] Diagnosis: Ecchymosis of left eye[ICD10: S05.12XA] Jannette BLACK [facility] CPT-4: 99474 10/31/2019 ([id number]) NURSE/OUTPATIENT VISIT EST Diagnosis: Long-term (current) use of anticoagulants, INR goal 2.0-3.0[ICD10: Z79.01] Becki BLACK [employer] CPT-4: 18063 10/26/2019 ([id number]) OFFICE/OUTPATIENT VISIT EST Diagnosis: Long-term (current) use of anticoagulants, INR goal 2.0-3.0[ICD10: Z79.01] Diagnosis: Pain in right arm[ICD10: M79.601] Diagnosis: Radiculopathy of arm[ICD10: M54.10] Jannette BLACK [facility] CPT-4: 65783 10/11/2019 ([id number]) OFFICE/OUTPATIENT VISIT EST Diagnosis: Long-term (current) use of anticoagulants, INR goal 2.0-3.0[ICD10: Z79.01] Diagnosis: Sinusitis[ICD10: J32.9] Diagnosis: Pain in right arm[ICD10: M79.601] Jannette BLACK [employer] CPT-4: 51726 09/08/2019 ([id number]) NURSE/OUTPATIENT VISIT EST Diagnosis: Chronic atrial fibrillation[ICD10: I48.2] Diagnosis: Encounter for therapeutic drug level monitoring[ICD10: Z51.81] Becki BLACK [employer] [facility] CPT-4: 29609 07/29/2019 ([id number]) NURSE/OUTPATIENT VISIT EST Diagnosis: Chronic atrial fibrillation[ICD10: I48.2] Diagnosis: Encounter for therapeutic drug level monitoring[ICD10: Z51.81] Becki BLACK [employer] CPT-4: 30619 07/18/2019 ([id number]) NURSE/OUTPATIENT VISIT EST Diagnosis: Encounter for therapeutic drug level monitoring[ICD10: Z51.81] Diagnosis: Chronic atrial fibrillation[ICD10: I48.2] Diagnosis: Essential (primary) hypertension[ICD10: I10] Becki BLACK [employer] CPT-4: 43761 07/06/2019 ([id number]) OFFICE/OUTPATIENT VISIT EST Diagnosis: Encounter for therapeutic drug level monitoring[ICD10: Z51.81] Diagnosis: Anemia, unspecified[ICD10: D64.9] Diagnosis: Bitten by dog, sequela[ICD10: W54.0XXS] 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] Becki BLACK [employer] CPT-4: 11514 06/14/2019 ([id number]) OFFICE/OUTPATIENT VISIT EST Diagnosis: Bitten by dog, sequela[ICD10: W54.0XXS] Diagnosis: Other fatigue[ICD10: R53.83] Diagnosis: Hypothyroidism, unspecified[ICD10: E03.9] Diagnosis: Muscle weakness (generalized)[ICD10: M62.81] Diagnosis: Generalized anxiety disorder[ICD10: F41.1] Jannette BLACK [employer] CPT-4: 24805 05/13/2019 ([id number]) NURSE/OUTPATIENT VISIT EST Diagnosis: Encounter for therapeutic drug level monitoring[ICD10: Z51.81] Becki CONNELL [employer] [facility] CPT-4: 65393 05/06/2019 ([id number]) OFFICE/OUTPATIENT VISIT EST Diagnosis: Bitten by dog, sequela[ICD10: W54.0XXS] Diagnosis: Pain in right wrist[ICD10: M25.531] Diagnosis: Abrasion of right upper arm, sequela[ICD10: S40.811S] Diagnosis: Abrasion of left upper arm, sequela[ICD10: S40.812S] Jannette Mayen [facility] [employer] [facility] CPT-4: 85005 05/02/2019 ([id number]) NURSE/OUTPATIENT VISIT EST Diagnosis: Encounter for therapeutic drug level monitoring[ICD10: Z51.81] Becki CONNELL [employer] [facility] [employer] CPT-4: 73763 04/07/2019 ([id number]) OFFICE/OUTPATIENT VISIT NEW Diagnosis: Encounter for therapeutic drug level monitoring[ICD10: Z51.81] Diagnosis: Chronic atrial fibrillation[ICD10: I48.2] Diagnosis: Essential (primary) hypertension[ICD10: I10] Diagnosis: Abnormal findings on diagnostic imaging of heart and coronary circulation[ICD10: R93.1] Diagnosis: Other forms of dyspnea[ICD10: R06.09] Diagnosis: Hypothyroidism, unspecified[ICD10: E03.9] Diagnosis: Mixed hyperlipidemia[ICD10: E78.2] Becki MCKEE [employer] [facility] [employer] CPT-4: 80944 03/08/2019 Plan of Care Planned Activity Notes [...] : J44.9 11/03/2019 Appointment: Becki Black WPtel: [facility] FOLLOW UP 11/03/2019 Care Plan: CT HEAD/BRAIN W/O DYE LOINC : 47666-9 Pending 11/01/2019 Visit Diagnosis Plan: Essential (primary) [...] ICD-10 : S05.12XA 10/31/2019 Appointment: Jannette Mayen [address] [place] [address] Follow Up 10/31/2019 Patient Education: High Blood Pressure Co mpleted 10/31/2019 Patient Education: losartan- Optimize[employer] Coupon [id number] https://www.[employer]aa[employer].com/samplemd/resources/getResource/61/4u715111-4q90-6376-4x Completed 10/31/2019 Appointment: Becki Black WPtel: [phone] FOLLOW UP 10/26/2019 Visit Diagnosis Plan: Long-term (current ) use of anticoagulants, INR goal 2.0-3.0 Discussion: will update pt/inr ICD-9 : V58.61 ICD-10 : Z79.01 10/11/2019 Visit Diagnosis Plan: Radiculopathy of arm Discussion: flexeril prescribed to take as needed. will start at low dose but instructed patient to call office if not effective and will increase mg dose. PT ordered at [facility] to assist with pain. if no improvement or worsening from PT, will need imaging. ICD-9 : 723.4 ICD-10 : M54.10 10/11/2019 Appointment: Jannette Mayen [address] [facility] ACUTE ILLNESS 10/11/2019 Patient Education: cyclobenzaprine- Opt[employer] Coupon [id number] https://www.[employer]/sampleatVenu/resources/getResource/61/89l5r4c0-54z0-0o79-05 Completed 10/11/2019 Visit Diagnosis Plan: Bitten by dog, sequela Discussio n: Still seeing counselor Still doing therapy--left 4th finger still not agile enough to play violin and feels like pinched nerve in neck on right--dscussed stretches, massage, accupuncture---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 ICD-9 : 906.1 ICD-10 : W54.0XXS 09/20/2019 Visit Diagnosis Plan: Encounter for [facility] adult medical examination without abnormal findings [...] : E78.2 09/20/2019 Appointment: Becki Black WPtel: [phone] [facility] Annual Well Visit 09/20/2019 Visit Diagnosis Plan: [...] ICD-10 : Z79.01 09/08/2019 Appointment: Jannette Mayen [address] [place] [address] ACUTE ILLNESS 09/08/2019 Appointment: Becki Black WPtel: [address] [place] [address] US CANCELED 08/16/2019 Appointment: Becki Black WPtel: [address] [place] [address] US LAB 07/29/2019 Appointment: Becki Black WPtel: [address] [place] [address] US LAB 07/18/2019 Appointment: Becki Black WPtel: [address] [place] [address] US LAB 07/06/2019 Visit Diagnosis Plan: Bitten [...] D64.9 06/14/2019 Appointment[phone] [facility] [facility] 06/14/2019 Visit Diagnosis Plan: Generalized [...] hydrocodone several days ago. will refer to [facility] as well to discuss [...] 05/13/2019 Visit Diagnosis Plan: Other fatigue Discussion: brooke sorto updated blood work to be completed today. ICD-9 : 780.79 ICD-10 : R53.83 05/13/2019 Appointment: Jannette Mayen [address] [place], [place] [address] US FOLLOW UP 05/13/2019 Patient Education: carvedilol- Opt[employer]RX Coupon [id number] https://www.sampleatVenu.com/samplemd/resources/getResource/61/76x7q996-3pkd-6998-3a Completed 05/13/2019 Patient Education: Xanax- Opt[employer] Coupon [id number] https://www.samplemd.com/samplemd/resources/getResource/61/9856s9z2-9p02-1n2z-i6 1e-1z58759294v4.pdf Completed 05/13/2019 Appointment: Becki Black WPtel: [address] [place] [address] US LAB 05/06/2019 Visit Diagnosis Plan: Abrasion [...] will send results to dr. portillo at [facility]. ICD-9 : 719.43 ICD-10 : M25.531 05/02/2019 Appointment: Jannette Mayen [address] [place] [address] ACUTE ILLNESS 05/02/2019 Care Plan: X-RAY EXAM OF WRIST right LOINC : 3 7302-7 Pending 05/02/2019 Appointment: Becki Black WPtel: [address] [place], [place] [id number] US LAB 04/07/2019 Appointment: Becki Black WPtel: [address] [place] [address] US BP CHECK 03/22/2019 Visit Diagnosis Plan: Abnormal [...] I10 03/08/2019 Appointment: [facility]el[phone] [facility] [facility] 03/08/2019 Instructions No Instructions Medical Equipment No Medical Equipment data Health Concerns Section Health Concerns data not found Goals Section Goals data not found Interventions Section Interventions data not found Health Status Evaluations/Outcomes Section Health Status Evaluations/Outcomes data not found Advance Directives No Advance Directive data
--- OUTSIDE RECORDS SUMMARY | 2019-11-24 06:50 | XMS REPORT | CCD ---
Author Author Tricia Black D.O. Organization [facility] Address [address] [place] [address] Phone Care Team Providers Care Mild Disabilities Teacher Name Role Phone PP Unavailable CCM Unavailable Summary Purpose Interface Exchange Insurance Providers Payer name Policy type / Coverage type Covered democrat ID Effective Begin Date Effective End Date WPS MEDICARE PART B [place] Medicare Part B [id number] Unknown Unknown [facility] Medicare Part B [id number] Unknown Unknown Family history Grandmother Diagnosis Age [...] Unknown Retired 03/08/[address]: 811439058 Has never smoked or chewed tobacco 03/08/[address]: 032772 Currently drinks alcohol 03/08 Has the patient [...] Fill Instructions losartan 100 mg tablet RxNorm: 192913 1 Tablet(s) Oral QD 11/10/2019 02/08/2020 Active isosorbide mononitrate ER 30 mg tablet,extended release 24 h r RxNorm: 321551 TABLET(S) 1 TABLET(S) PO NEEDED 11/10/2019 05/08/2020 Active Patient requests 90 days supply carvedilol 25 mg tablet RxNorm: 054242 1 Tablet(s) Oral two antolin es a day 11/10/2019 05/08/2020 Active Coumadin 2 mg tablet RxNorm: 768514 1 Tablet(s) Oral on and Thursday11/10/2019 No Stop Date Active levothyroxine 50 mcg tablet RxNorm: 009274 1 Tablet(s) Oral QD 10/2305/08/2020 Active Coumadin 4 mg tablet RxNorm: 003383 1 Tablet(s) Oral Thursday11/10/2019 11/10/2019 Inactive losartan 100 mg tablet RxNorm: 584166 1 Tablet(s) Oral QD 11/10/2019 11/09/2019 Inactive losartan 50 mg tablet RxNorm: 535209 2 Tablet(s) Oral QD 11/01/2019 1 01/10/2019 Inactive potassium chloride ER 10 mEq capsule,extended release RxNorm : 729504 1 Capsule(s) Oral QD 10/26/2019 10/26/2019 Inactive potassium chloride ER 10 mEq tablet,extended release RxNorm: 956914 1 TABLET(S) ORAL QD 10/22/2019 04/18/2020 Active Replaces PA on 1 0MEQ Capsules Aspir-81 mg tablet,delayed release RxNorm: 598388 1 Tablet(s) O ral QD 10/11/2019 No Stop Date Active cyclobenzaprine 5 mg tablet RxNorm: 287364 1 Tablet(s) Oral two times a day as needed for muscle spasm 10/11/2019 No Stop Date Active Coumadin 4 mg tablet RxNorm: 669102 1 Tablet(s) Oral Mo through Thursday and 1/2 tablet (2mg) on Sat/Sun 10/11/2019 11/09/2019 Inactive potassium chloride ER 10 mEq tablet,extended release RxNorm: 755260 1 Tablet(s) Oral QD 09/22/2019 09/21/2019 Inactive Replaces PA on 1 0MEQ Capsules potassium chloride ER 10 mEq tablet,extended release RxNorm: 478069 1 Tablet(s) Oral QD 09/22/2019 10/10/2019 Inactive Replaces PA on 1 0MEQ Capsules potassium chloride ER 10 mEq capsule,extended release RxNorm : 438661 1 Capsule(s) Oral QD 09/21/2019 09/21/2019 Inactive carvedilol 25 mg tablet RxNorm: 990351 1 Tablet(s) Oral two antolin es a day 08/23/2019 11/09/2019 Inactive isosorbide mononitrate ER 30 mg tablet,extended release 24 h r RxNorm: 841769 TABLET(S) 1 TABLET(S) PO NEEDED 08/22/2019 11/09/2019 Inactive Patient requests 90 days supply isosorbide mononitrate ER 30 mg tablet,extended release 24 h r RxNorm: 044184 Tablet(s) 1 TABLET(S) PO NEEDED 08/16/2019 08/21/2019 Inactive Patient requests 90 days supply levothyroxine 50 mcg tablet RxNorm: 038384 1 Tablet(s) PO QD 201811/09/2019 Inactive isosorbide mononitrate ER 30 mg tablet,extended release 24 h r RxNorm: 060841 Tablet(s) 1 TABLET(S) PO NEEDED 06/27/2019 08/15/2019 Inactive Patient requests 90 days supply isosorbide mononitrate ER 30 mg tablet,extended release 24 h r RxNorm: 280320 1 Tablet(s) PO QD as needed 06/27/2019 06/27/2019 Inactive Neris ent requests 90 days supply carvedilol 25 mg tablet RxNorm: 991693 1 TABLET(S) PO BID 06/27/2019 08/22/2019 Inactive furosemide 40 mg tablet RxNorm: 972128 1 Tablet(s) PO QAM 06/21/2019 12/17/2019 Active carvedilol 25 mg tablet RxNorm: 513636 1 Tablet(s) PO BID 05/13/2019 06/26/2019 Inactive Xanax 0.25 mg tablet RxNorm: 966283 1/2 Tablet(s) PO Q6H as needed 05/13/2019 09/07/2019 Inactive levothyroxine 50 mcg tablet RxNorm: 696812 1 Tablet(s) PO QD 201808/07/2019 Inactive losartan 50 mg tablet RxNorm: 250509 1 Tablet(s) PO QD 04/26/2019 Inactive losartan 50 mg tablet RxNorm: 174792 1 Tablet(s) PO QD 04/20/201901/2019 Inactive pravastatin 40 mg tablet RxNorm: 436175 1 Tablet(s) PO QD 04/07/2019 06/05/2019 Inactive isosorbide mononitrate ER 30 mg tablet,extended release 24 h r RxNorm: 791480 1 Tablet(s) PO as needed 04/07/2019 04/06/2019 Inactive isosorbide mononitrate ER 30 mg tablet,extended release 24 h r RxNorm: 667852 1 TABLET(S) PO NEEDED 04/07/2019 06/26/2019 Inactive Patient requests 90 days supply losartan 50 mg tablet RxNorm: 079198 1 Tablet(s) PO QD 03/22/2019 Inactive carvedilol 25 mg tablet RxNorm: 046694 1 Tablet(s) PO BID No Start Date 05/12/2019 Inactive losartan 50 mg tablet RxNorm: 835002 1 Tablet(s) PO QD No Start Date 03/21/2019 Inactive Ventolin HFA 90 mcg/actuation aerosol inhaler RxNorm: 920826 1-2 Puff(s) INH as needed No Start Date 09/07/2019 Inactive furosemide 40 mg tablet RxNorm: 310843 1 Tablet(s) PO QAM No Start Date 06/20/2019 Inactive pravastatin 40 mg tablet RxNorm: 005873 1 Tablet(s) PO QD No Start Date 04/06/2019 Inactive Coumadin 2 mg tablet RxNorm: 852271 1 Tablet(s) PO Mon, Fri, Sat and Sun then 2 tablets (4mg) on , Thu and No Start Date 10/10/2019 Inactive isosorbide mononitrate ER 30 mg tablet,extended release 24 h r RxNorm: 387754 Tablet(s) PO as needed No Start Date [...] ER 10 mEq capsule,extended release RxNorm : 993453 1 Capsule(s) PO QD No Start Date 09/20/2019 Inactive levothyroxine 50 mcg tablet RxNorm: 563297 1 Tablet(s) PO QD No Sta rt Date 04/25/2019 Inactive Medication Administered No Medication Administered data Immunizations Vaccine Codes Date Status Influenza CVX: 135 07/02/2019 Results Observation Observation Code Item Item Code Result Date S ervice Location PT 7537417 PT 31.4 Seconds 10/26/2019 Unknow n PT 1930314 INR 2.9 10/26/2019 Unknown PT 3884671 PT 17.6 Seconds 10/11/2019 Unknow n PT 5678658 INR 1.4 10/11/2019 Unknown PT 9247225 PT 23.7 Seconds 09/08/2019 Unknow n PT 1727048 INR 2.0 09/08/2019 Unknown PT 6733293 PT 23.2 Seconds 07/29/2019 Unknow n PT 2385972 INR 2.0 07/29/2019 Unknown PT 7134031 PT 14.3 Seconds 07/18/2019 Unknow n PT 1104988 INR 1.1 07/18/2019 [place] [address] Glucose 75 mg/dL 07/06 [place] [address] CREATININE 0.61 mg/dL [place] [address] BUN 15 mg/dL 07/06 [place] [address] SODIUM 142 mmol/L 06/23 [place] [address] POTASSIUM 4.0 mmol/L 06/23 [place] [address] CHLORIDE 106 mmol/L 06/23 [place] [address] Bicarbonate 28 mmol/L [place] [address] AGAP 8 mmol/L 07/06 [place] [address] CALCIUM 9.3 mg/dL 07/06 Unknown PT 6175495 PT 17.4 Seconds 07/06/2019 Unknow n PT 2791007 INR 1.4 07/06/2019 Unknown GFR CALC 5662597 GFR Non Afr Amr >60 mL/min 07/06/2019 Un known GFR CALC 6772363 GFR Afr Amr >60 mL/min 07/06/2019 Unknow n COMPLETE BLOOD COUNT 1789612 WBC 4.7 10e9/L 07/06/20 19 Unknown COMPLETE BLOOD COUNT 4283671 RBC 4.19 10e12/L 2018 Unknown COMPLETE BLOOD COUNT 0835308 HEMOGLOBIN 12.6 g/dL 07/06/20 19 Unknown COMPLETE BLOOD COUNT 2383204 HEMATOCRIT 39.4 % 07/06/20 19 Unknown COMPLETE BLOOD COUNT 2785522 MCV 94.0 fL 9 Unknown COMPLETE BLOOD COUNT 8634743 MCH 30.1 pg 9 Unknown COMPLETE BLOOD COUNT 4574959 MCHC 32.0 g/dL 9 Unknown COMPLETE BLOOD COUNT 5019020 PLATELET COUNT 160 10e9/L Unknown COMPLETE BLOOD COUNT 6046389 Mean Plt Volume 11.0 fL Unknown COMPLETE BLOOD COUNT 9962169 Neut Auto 56.6 % 9 Unknown COMPLETE BLOOD COUNT 9098673 Lymph Auto 27.0 % 07/06/20 19 Unknown COMPLETE BLOOD COUNT 8657123 Bent Auto 13.7 % 9 Unknown COMPLETE BLOOD COUNT 0491353 RDW 14.6 % 9 Unknown COMPLETE BLOOD COUNT 9244084 Eos Auto 2.1 % 9 Unknown COMPLETE BLOOD COUNT 4616644 Baso Auto 0.6 % 9 Unknown COMPLETE BLOOD COUNT 2618588 Neutrophil Abs 2.66 10e9/L Unknown COMPLETE BLOOD COUNT 7755200 Lymphocyte Abs 1.27 10e9/L Unknown COMPLETE BLOOD COUNT 7347936 Monocyte Abs 0.64 10e9/L 06/23 Unknown COMPLETE BLOOD COUNT 6648357 Eosinophil Abs 0.10 10e9/L Unknown COMPLETE BLOOD COUNT 7919191 RDW-SD 48.7 fL 9 Unknown COMPLETE BLOOD COUNT 1683516 Basophil Abs 0.03 10e9/L 06/23 Unknown COMPLETE BLOOD COUNT 7958768 WBC 4.6 10e9/L 06/14/20 19 Unknown COMPLETE BLOOD COUNT [id number] RBC 4.16 10e12/L 2018 Unknown COMPLETE BLOOD COUNT 2227624 HEMOGLOBIN 12.6 g/dL 06/14/20 19 Unknown COMPLETE BLOOD COUNT 8988392 HEMATOCRIT 39.1 % 06/14/20 19 Unknown COMPLETE BLOOD COUNT [id number] MCV 94.0 fL 9 Unknown COMPLETE BLOOD COUNT 4021599 MCH 30.3 pg 9 Unknown COMPLETE BLOOD COUNT 7342934 MCHC 32.2 g/dL 9 Unknown COMPLETE BLOOD COUNT 7256454 PLATELET COUNT 167 10e9/L Unknown COMPLETE BLOOD COUNT 5813619 Mean Plt Volume 10.9 fL Unknown COMPLETE BLOOD COUNT 9239615 Neut Auto 59.6 % 9 Unknown COMPLETE BLOOD COUNT 9993979 Lymph Auto 24.1 % 06/14/20 19 Unknown COMPLETE BLOOD COUNT 4310025 Bent Auto 14.0 % 9 Unknown COMPLETE BLOOD COUNT 8771546 RDW 14.8 % 9 Unknown COMPLETE BLOOD COUNT 5239105 Eos Auto 1.9 % 9 Unknown COMPLETE BLOOD COUNT 9545518 Baso Auto 0.4 % 9 Unknown COMPLETE BLOOD COUNT 4917143 Neutrophil Abs 2.74 10e9/L Unknown COMPLETE BLOOD COUNT 6867182 Lymphocyte Abs 1.11 10e9/L Unknown COMPLETE BLOOD COUNT 0341690 Monocyte Abs 0.64 10e9/L 05/24 Unknown COMPLETE BLOOD COUNT 3444628 Eosinophil Abs 0.09 10e9/L Unknown COMPLETE BLOOD COUNT 0621221 RDW-SD 49.3 fL 9 Unknown COMPLETE BLOOD COUNT 5393627 Basophil Abs 0.02 10e9/L 05/24 Unknown PT 3457343 PT 22.3 Seconds 06/14/2019 Unknow n PT 9853095 INR 1.9 06/14/2019 Unknown COMPLETE BLOOD COUNT 3362286 WBC 4.0 10e9/L 05/13/20 19 Unknown COMPLETE BLOOD COUNT 3347792 RBC 3.82 10e12/L 2018 Unknown COMPLETE BLOOD COUNT 5423883 HEMOGLOBIN 11.5 g/dL 05/13/20 19 Unknown COMPLETE BLOOD COUNT 7281675 HEMATOCRIT 36.4 % 05/13/20 19 Unknown COMPLETE BLOOD COUNT 5965181 MCV 95.3 fL 9 Unknown COMPLETE BLOOD COUNT 3968180 MCH 30.1 pg 9 Unknown COMPLETE BLOOD COUNT 3505652 MCHC 31.6 g/dL 9 Unknown COMPLETE BLOOD COUNT 2901422 PLATELET COUNT 175 10e9/L Unknown COMPLETE BLOOD COUNT 8745597 Mean Plt Volume 10.5 fL Unknown COMPLETE BLOOD COUNT 2835562 Neut Auto 63.2 % 9 Unknown COMPLETE BLOOD COUNT 2984850 Lymph Auto 22.0 % 05/13/20 19 Unknown COMPLETE BLOOD COUNT 3484999 Bent Auto 12.1 % 9 Unknown COMPLETE BLOOD COUNT 8350121 RDW 14.9 % 9 Unknown COMPLETE BLOOD COUNT 5444899 Eos Auto 2.2 % 9 Unknown COMPLETE BLOOD COUNT 7273726 Baso Auto 0.5 % 9 Unknown COMPLETE BLOOD COUNT 5954060 Neutrophil Abs 2.53 10e9/L Unknown COMPLETE BLOOD COUNT 4870687 Lymphocyte Abs 0.88 10e9/L Unknown COMPLETE BLOOD COUNT 8234168 Monocyte Abs 0.48 10e9/L 04/24 Unknown COMPLETE BLOOD COUNT 6918962 Eosinophil Abs 0.09 10e9/L Unknown COMPLETE BLOOD COUNT 0378057 RDW-SD 49.6 fL 9 Unknown COMPLETE BLOOD COUNT 1856947 Basophil Abs 0.02 10e9/L 04/24 Unknown COMPREHENSIVE METABOLIC 83973 AST 18 U/L 2018 Unknown COMPREHENSIVE METABOLIC 65196 ALT 14 U/L 2018 Unknown COMPREHENSIVE METABOLIC 64731 BUN 15 mg/dL 2018 Unknown COMPREHENSIVE METABOLIC 70033 ALBUMIN 4.0 g/dL 2018 Unknown COMPREHENSIVE METABOLIC 84175 CHLORIDE 108 mmol/L 05/13 Unknown COMPREHENSIVE METABOLIC 07174 Bili Total 0.9 mg/dL 05/13 Unknown COMPREHENSIVE METABOLIC 29436 ALK PHOS 84 U/L 2018 Unknown COMPREHENSIVE METABOLIC 89558 SODIUM 142 mmol/L 05/13 Unknown COMPREHENSIVE METABOLIC 21937 CREATININE 0.72 mg/dL 04/24 Unknown COMPREHENSIVE METABOLIC 24306 CALCIUM 8.9 mg/dL 2018 Unknown COMPREHENSIVE METABOLIC 25886 POTASSIUM 4.0 mmol/L 05/13 Unknown COMPREHENSIVE METABOLIC 96447 Total Protein 5.5 g/dL Unknown COMPREHENSIVE METABOLIC 32563 Glucose 95 mg/dL 2018 Unknown COMPREHENSIVE METABOLIC 09854 Bicarbonate 27 mmol/L 04/24 Unknown COMPREHENSIVE METABOLIC 73740 AGAP 7 mmol/L 2018 Unknown GFR CALC 0654486 GFR Non Afr Amr >60 mL/min 05/13/2019 Un known GFR CALC 7854867 GFR Afr Amr >60 mL/min 05/13/2019 Unknow n THYROID STIMULATING HORMONE 75280 TSH 2.669 uIU/mL 05/13/2019 Unknown FREE T4 40172 T4 Free 1.19 ng/dL 05/13/2019 Unknown PT 9921880 PT 24.2 Seconds 05/06/2019 Unknow n PT 3214695 INR 2.1 05/06/2019 Unknown PT 4997430 PT 24.1 Seconds 03/08/2019 Unknow n PT 6835261 INR 2.9 03/08/2019 Unknown Procedures Procedure Codes Date PROTHROMBIN TIME CPT-4: 86896 10/26/2019 ROUTINE VENIPUNCTURE CPT-4: 17934 10/26/2019 ROUTINE VENIPUNCTURE CPT-4: 28820 10/11/2019 PT CPT-4: 9704120 10/11/2019 PPPS, initial visit CPT-4: G0438 09/20/2019 ROUTINE VENIPUNCTURE CPT-4: 13919 09/08/2019 PT CPT-4: 4075667 09/08/2019 THER/PROPH/DIAG INJ SC/IM CPT-4: 32957 09/08/2019 TRIAMCINOLONE ACET INJ NOS CPT-4: J3301 09/08/2019 ROUTINE VENIPUNCTURE CPT-4: 49344 07/29/2019 PT CPT-4: 0392217 07/29/2019 ROUTINE VENIPUNCTURE CPT-4: 22447 07/18/2019 PT CPT-4: 1666526 07/18/2019 METABOLIC PANEL TOTAL CA CPT-4: 57467 07/06/2019 COMPLETE CBC W/AUTO DIFF WBC CPT-4: 34619 07/06/2019 PROTHROMBIN TIME CPT-4: 57930 07/06/2019 ROUTINE VENIPUNCTURE CPT-4: 21800 06/14/2019 PROTHROMBIN TIME CPT-4: 68591 06/14/2019 COMPLETE CBC W/AUTO DIFF WBC CPT-4: 41705 06/14/2019 ROUTINE VENIPUNCTURE CPT-4: 47798 05/13/2019 COMPREHEN METABOLIC PANEL CPT-4: 41416 05/13/2019 COMPLETE CBC W/AUTO DIFF WBC CPT-4: 67175 05/13/2019 ASSAY THYROID STIM HORMONE CPT-4: 19904 05/13/2019 ASSAY OF FREE THYROXINE CPT-4: 58289 05/13/2019 PT CPT-4: 9440190 05/06/2019 ROUTINE VENIPUNCTURE CPT-4: 40186 05/06/2019 PT CPT-4: 1046400 04/07/2019 ROUTINE VENIPUNCTURE CPT-4: 12466 04/07/2019 ROUTINE VENIPUNCTURE CPT-4: 27162 03/08/2019 PROTHROMBIN TIME CPT-4: 65480 03/08/2019 Vital Signs Date Vital 11/03/2019 Blood [...] 1: 122/68 Code: 8480-6 BMI: 35.0 Code: 27436-4 Heart Rate 1: 72 bpm Height: 5'3" [...] 1: 114/78 Code: 8480-6 BMI: 36.1 Code: 14594-7 Heart Rate 1: 76 bpm Height: 5'3" [...] visit Encounters Encounter Performer Location Codes Date ([id number]) OFFICE/OUTPATIENT VISIT EST Diagnosis: Post concussion syndrome[ICD10: F07.81] Diagnosis: Head contusion[ICD10: S00.93XA] Diagnosis: Chronic airway obstruction, not elsewhere classified[ICD10: J44.9] Becki BLACK [facility] CPT-4: 32730 11/03/2019 ([id number]) OFFICE/OUTPATIENT VISIT EST Diagnosis: Fall as cause of accidental injury at home as place of occurrence[ICD10: W19.XXXA] Diagnosis: Headache[ICD10: R51] Diagnosis: Essential (primary) hypertension[ICD10: I10] Diagnosis: Long-term (current) use of anticoagulants, INR goal 2.0-3.0[ICD10: Z79.01] Diagnosis: Ecchymosis of left eye[ICD10: S05.12XA] Jannette BLACK [facility] CPT-4: 09631 10/31/2019 ([id number]) NURSE/OUTPATIENT VISIT EST Diagnosis: Long-term (current) use of anticoagulants, INR goal 2.0-3.0[ICD10: Z79.01] Becki BLACK [facility] CPT-4: 68772 10/26/2019 ([id number]) OFFICE/OUTPATIENT VISIT EST Diagnosis: Long-term (current) use of anticoagulants, INR goal 2.0-3.0[ICD10: Z79.01] Diagnosis: Pain in right arm[ICD10: M79.601] Diagnosis: Radiculopathy of arm[ICD10: M54.10] Jannette BLACK [facility] CPT-4: 87690 10/11/2019 ([id number]) OFFICE/OUTPATIENT VISIT EST Diagnosis: Long-term (current) use of anticoagulants, INR goal 2.0-3.0[ICD10: Z79.01] Diagnosis: Sinusitis[ICD10: J32.9] Diagnosis: Pain in right arm[ICD10: M79.601] Jannette BLACK [facility] CPT-4: 97943 09/08/2019 ([id number]) NURSE/OUTPATIENT VISIT EST Diagnosis: Chronic atrial fibrillation[ICD10: I48.2] Diagnosis: Encounter for therapeutic drug level monitoring[ICD10: Z51.81] Becki BLACK [employer] [facility] CPT-4: 85431 07/29/2019 ([id number]) NURSE/OUTPATIENT VISIT EST Diagnosis: Chronic atrial fibrillation[ICD10: I48.2] Diagnosis: Encounter for therapeutic drug level monitoring[ICD10: Z51.81] Becki BLACK [facility] CPT-4: 60251 07/18/2019 ([id number]) NURSE/OUTPATIENT VISIT EST Diagnosis: Encounter for therapeutic drug level monitoring[ICD10: Z51.81] Diagnosis: Chronic atrial fibrillation[ICD10: I48.2] Diagnosis: Essential (primary) hypertension[ICD10: I10] Becki BLACK [facility] CPT-4: 11220 07/06/2019 ([id number]) OFFICE/OUTPATIENT VISIT EST Diagnosis: Encounter for therapeutic drug level monitoring[ICD10: Z51.81] Diagnosis: Anemia, unspecified[ICD10: D64.9] Diagnosis: Bitten by dog, sequela[ICD10: W54.0XXS] 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] Becki BLACK [facility] CPT-4: 14168 06/14/2019 ([id number]) OFFICE/OUTPATIENT VISIT EST Diagnosis: Bitten by dog, sequela[ICD10: W54.0XXS] Diagnosis: Other fatigue[ICD10: R53.83] Diagnosis: Hypothyroidism, unspecified[ICD10: E03.9] Diagnosis: Muscle weakness (generalized)[ICD10: M62.81] Diagnosis: Generalized anxiety disorder[ICD10: F41.1] Jannette BLACK [facility] CPT-4: 86209 05/13/2019 ([id number]) NURSE/OUTPATIENT VISIT EST Diagnosis: Encounter for therapeutic drug level monitoring[ICD10: Z51.81] Becki CONNELL [facility] [facility] CPT-4: 98673 05/06/2019 ([id number]) OFFICE/OUTPATIENT VISIT EST Diagnosis: Bitten by dog, sequela[ICD10: W54.0XXS] Diagnosis: Pain in right wrist[ICD10: M25.531] Diagnosis: Abrasion of right upper arm, sequela[ICD10: S40.811S] Diagnosis: Abrasion of left upper arm, sequela[ICD10: S40.812S] Jannette Mayen [facility] CPT-4: 24191 05/02/2019 ([id number]) NURSE/OUTPATIENT VISIT EST Diagnosis: Encounter for therapeutic drug level monitoring[ICD10: Z51.81] Becki CONNELL [employer] [facility] CPT-4: 37848 04/07/2019 ([id number]) OFFICE/OUTPATIENT VISIT NEW Diagnosis: Encounter for therapeutic drug level monitoring[ICD10: Z51.81] Diagnosis: Chronic atrial fibrillation[ICD10: I48.2] Diagnosis: Essential (primary) hypertension[ICD10: I10] Diagnosis: Abnormal findings on diagnostic imaging of heart and coronary circulation[ICD10: R93.1] Diagnosis: Other forms of dyspnea[ICD10: R06.09] Diagnosis: Hypothyroidism, unspecified[ICD10: E03.9] Diagnosis: Mixed hyperlipidemia[ICD10: E78.2] Becki MCKEE [facility] CPT-4: 37793 03/08/2019 Plan of Care Planned Activity Notes [...] : J44.9 11/03/2019 Appointment: Becki Black WPtel: [facility][note 3]2 [id number] FOLLOW UP 11/03/2019 Care Plan: CT HEAD/BRAIN W/O DYE LOINC : 05960-1 Pending 11/01/2019 Visit Diagnosis Plan: Essential (primary) [...] ICD-10 : S05.12XA 10/31/2019 Appointment: Jannette Mayen [address] [place] [address] Follow Up 10/31/2019 Patient Education: High Blood Pressure Co mpleted 10/31/2019 Patient Education: losartan- [employer] Coupon [id number] [email or web address]://www.[employer]com/samplemd/resources/getResource/61/[email or web address] Completed 10/31/2019 Appointment: Becki Black WPtel: [phone] FOLLOW UP 10/26/2019 Visit Diagnosis Plan: Radiculopathy of arm Discussion: flexeril prescribed to take as needed. will start at low dose but instructed patient to call office if not effective and will increase mg dose. PT ordered at [facility] to assist with pain. if no improvement or worsening from PT, will need imaging. ICD-9 : 723.4 ICD-10 : M54.10 10/11/2019 Visit Diagnosis Plan: Long-term (current ) use of anticoagulants, INR goal 2.0-3.0 Discussion: will update pt/inr ICD-9 : V58.61 ICD-10 : Z79.01 10/11/2019 App[facility]ment[id number] 10/11/2019 Patient Education: cyclobenzaprine- Opt[employer] Coupon [id number] https://www.[email or web address]/samplePayoneer/resources/getResource/61/93f9w6j5-74g2-3r78-64 Completed 10/11/2019 Visit Diagnosis Plan: Mixed hyperlipidemia [...] on right--dscussed stretches, massage, accupuncture---patient had hired assistant attorney general ICD-9 : 906.1 ICD-10 : W54.0XXS 09/20/2019 Visit Diagnosis Plan: Encounter for [facility] adult medical examination without abnormal findings Discussion: Mediterranean diet Combinati on of cardio and weight bearing exercise Had flu shot Update mammogram ICD-9 : V70.9 ICD-10 : Z00.00 09/20/2019 Appointment: Beck[facility]el[facility] [phone] [id number] [facility] 09/20/2019 Visit Diagnosis Plan: [...] ICD-10 : Z79.01 09/08/2019 Appointment: Jannette Mayen [address] [place] [address] ACUTE ILLNESS 09/08/2019 Appointment: Becki Black WPtel: [address] [place] [address] CANCELED 08/16/2019 Appointment: Becki Black WPtel: [address] [place] [address] US LAB 07/29/2019 Appointment: Becki Black WPtel: [address] [place] [address] US LAB 07/18/2019 Appointment: Becki Black WPtel: [address] [place] [address] LAB 07/06/2019 Visit Diagnosis Plan: Encounter for [...] W54.0XXS 06/14/2019 Appointment: Becki Black WPtel: [phone] [id number] US FOLLOW UP 06/14/2019 Visit Diagnosis Plan: [...] hydrocodone several days ago. will refer to [facility] as well to discuss concerns. ICD-9 : 300.02 ICD-10 : F41.1 05/13/2019 Appointment: Jannette Mayen [address] [place], [place] [id number] FOLLOW UP 05/13/2019 Patient Education: carvedilol- OptimizeRX Coupon [phone] https://www.samplePayoneer.com/samplemd/resources/getResource/61/51m8w904-9ybq-6302-5m Completed 05/13/2019 Patient Education: Xanax- Opt[employer] Coupon [id number] https://www.samplemd.com/samplemd/resources/getResource/61/5930i4n2-0k52-5s3g-k5 1e-4y26944978h7.pdf Completed 05/13/2019 Appointment: Becki Black WPtel: [address] [place], [place] [id number] US LAB 05/06/2019 Visit Diagnosis Plan: Pain in right wrist Discussion: xray ordered of wrist to rule out acute fracture. will send results to dr. portillo at [facility]. ICD-9 : 719.43 ICD-10 : M25.531 [...] ICD-10 : S40.811S 05/02/2019 Appointment: Jannette Mayen [address] [place] [address] ACUTE ILLNESS 05/02/2019 Care Plan: X-RAY EXAM OF WRIST right LOINC : 3 7302-7 Pending 05/02/2019 Appointment: Becki Black WPtel: [address] [place], [place] [id number] US LAB 04/07/2019 Appointment: Becki Black WPtel: [address] [place] [address] US BP CHECK 03/22/2019 Visit Diagnosis Plan: [...] I48.2 03/08/2019 Appointment: [facility] Black [facility]el[facility] [phone] [id number] [facility] 03/08/2019 Instructions No Instructions Medical Equipment No Medical Equipment data Health Concerns Section Health Concerns data not found Goals Section Goals data not found Interventions Section Interventions data not found Health Status Evaluations/Outcomes Section Health Status Evaluations/Outcomes data not found Advance Directives No Advance Directive data
--- OUTSIDE RECORDS SUMMARY | 2019-11-24 06:51 | XMS REPORT | CCD ---
Author Author Tricia Black D.O. Organization [facility] Address [address] [place] [address] Phone Care Team Providers Care Cold Working Inspector Name Role Phone PP Unavailable CCM Unavailable Summary Purpose Interface Exchange Insurance Providers Payer name Policy type / Coverage type Covered libertarian ID Effective Begin Date Effective End Date WPS MEDICARE PART B [place] Medicare Part B [id number] Unknown Unknown [facility] Medicare Part B [id number] Unknown Unknown Family history Grandmother Diagnosis Age [...] Unknown Retired 03/08/[address]: [id number] Has never smoked or chewed tobacco 03/08/[address]: 869693 Currently drinks alcohol 03/08 Has the patient [...] Fill Instructions losartan 100 mg tablet RxNorm: 682701 1 Tablet(s) Oral QD 11/10/2019 02/08/2020 Active Coumadin 2 mg tablet RxNorm: 883433 1 Tablet(s) Oral on and Thursday11/10/2019 No Stop Date Active Coumadin 4 mg tablet RxNorm: 553939 1 Tablet(s) Oral Thursday thr thursday11/10/2019 11/10/2019 Inactive losartan 100 mg tablet RxNorm: 426008 1 Tablet(s) Oral QD 11/10/2019 11/09/2019 Inactive losartan 50 mg tablet RxNorm: 002331 2 Tablet(s) Oral QD 11/01/2019 1 01/10/2019 Inactive potassium chloride ER 10 mEq capsule,extended release RxNorm : 362887 1 Capsule(s) Oral QD 10/26/2019 10/26/2019 Inactive potassium chloride ER 10 mEq tablet,extended release RxNorm: 321581 1 TABLET(S) ORAL QD 10/22/2019 04/18/2020 Active Replaces PA on 1 0MEQ Capsules Aspir-81 mg tablet,delayed release RxNorm: 822419 1 Tablet(s) O ral QD 10/11/2019 No Stop Date Active cyclobenzaprine 5 mg tablet RxNorm: 497193 1 Tablet(s) Oral two times a day as needed for muscle spasm 10/11/2019 No Stop Date Active Coumadin 4 mg tablet RxNorm: 621563 1 Tablet(s) Oral Mo nday through Thursday and 1/2 tablet (2mg) on Sat/Sun 10/11/2019 11/09/2019 Inactive potassium chloride ER 10 mEq tablet,extended release RxNorm: 073416 1 Tablet(s) Oral QD 09/22/2019 09/21/2019 Inactive Replaces PA on 1 0MEQ Capsules potassium chloride ER 10 mEq tablet,extended release RxNorm: 585566 1 Tablet(s) Oral QD 09/22/2019 10/10/2019 Inactive Replaces PA on 1 0MEQ Capsules potassium chloride ER 10 mEq capsule,extended release RxNorm : 420227 1 Capsule(s) Oral QD 09/21/2019 09/21/2019 Inactive carvedilol 25 mg tablet RxNorm: 275870 1 Tablet(s) Oral two antolin es a day 08/23/2019 11/21/2019 Active isosorbide mononitrate ER 30 mg tablet,extended release 24 h r RxNorm: 246449 TABLET(S) 1 TABLET(S) PO NEEDED 08/22/2019 02/17/2020 Active Patient requests 90 days supply isosorbide mononitrate ER 30 mg tablet,extended release 24 h r RxNorm: 179322 Tablet(s) 1 TABLET(S) PO NEEDED 08/16/2019 08/21/2019 Inactive Patient requests 90 days supply levothyroxine 50 mcg tablet RxNorm: 705339 1 Tablet(s) PO QD 201802/03/2020 Active isosorbide mononitrate ER 30 mg tablet,extended release 24 h r RxNorm: 327889 Tablet(s) 1 TABLET(S) PO NEEDED 06/27/2019 08/15/2019 Inactive Patient requests 90 days supply isosorbide mononitrate ER 30 mg tablet,extended release 24 h r RxNorm: 329735 1 Tablet(s) PO QD as needed 06/27/2019 06/27/2019 Inactive Neris ent requests 90 days supply carvedilol 25 mg tablet RxNorm: 492149 1 TABLET(S) PO BID 06/27/2019 08/22/2019 Inactive furosemide 40 mg tablet RxNorm: 257775 1 Tablet(s) PO QAM 06/21/2019 12/17/2019 Active carvedilol 25 mg tablet RxNorm: 821045 1 Tablet(s) PO BID 05/13/2019 06/26/2019 Inactive Xanax 0.25 mg tablet RxNorm: 174341 1/2 Tablet(s) PO Q6H as needed 05/13/2019 09/07/2019 Inactive levothyroxine 50 mcg tablet RxNorm: 335259 1 Tablet(s) PO QD 201808/07/2019 Inactive losartan 50 mg tablet RxNorm: 453752 1 Tablet(s) PO QD 04/26/2019 Inactive losartan 50 mg tablet RxNorm: 759045 1 Tablet(s) PO QD 04/20/201901/2019 Inactive pravastatin 40 mg tablet RxNorm: 374340 1 Tablet(s) PO QD 04/07/2019 06/05/2019 Inactive isosorbide mononitrate ER 30 mg tablet,extended release 24 h r RxNorm: 560311 1 Tablet(s) PO as needed 04/07/2019 04/06/2019 Inactive isosorbide mononitrate ER 30 mg tablet,extended release 24 h r RxNorm: 676940 1 TABLET(S) PO NEEDED 04/07/2019 06/26/2019 Inactive Patient requests 90 days supply losartan 50 mg tablet RxNorm: 844373 1 Tablet(s) PO QD 03/22/2019 Inactive carvedilol 25 mg tablet RxNorm: 713203 1 Tablet(s) PO BID No Start Date 05/12/2019 Inactive losartan 50 mg tablet RxNorm: 216756 1 Tablet(s) PO QD No Start Date 03/21/2019 Inactive Ventolin HFA 90 mcg/actuation aerosol inhaler RxNorm: 961548 1-2 Puff(s) INH as needed No Start Date 09/07/2019 Inactive furosemide 40 mg tablet RxNorm: 840792 1 Tablet(s) PO QAM No Start Date 06/20/2019 Inactive pravastatin 40 mg tablet RxNorm: 395437 1 Tablet(s) PO QD No Start Date 04/06/2019 Inactive Coumadin 2 mg tablet RxNorm: 352300 1 Tablet(s) PO Mon, Fri, Sat and Sun then 2 tablets (4mg) on , Thu and No Start Date 10/10/2019 Inactive isosorbide mononitrate ER 30 mg tablet,extended release 24 h r RxNorm: 411621 Tablet(s) PO as needed No Start Date [...] ER 10 mEq capsule,extended release RxNorm : 516741 1 Capsule(s) PO QD No Start Date 09/20/2019 Inactive levothyroxine 50 mcg tablet RxNorm: 584245 1 Tablet(s) PO QD No Sta rt Date 04/25/2019 Inactive Medication Administered No Medication Administered data Immunizations Vaccine Codes Date Status Influenza CVX: 135 07/02/2019 Results Observation Observation Code Item Item Code Result Date S ervice Location PT 1327939 PT 31.4 Seconds 10/26/2019 Unknow n PT [id number] INR 2.9 10/26/2019 Unknown PT [id number] PT 17.6 Seconds 10/11/2019 Unknow n PT [id number] INR 1.4 10/11/2019 Unknown PT 1949791 PT 23.7 Seconds 09/08/2019 Unknow n PT [id number] INR 2.0 09/08/2019 Unknown PT 5740375 PT 23.2 Seconds 07/29/2019 Unknow n PT 6453505 INR 2.0 07/29/2019 Unknown PT 3819212 PT 14.3 Seconds 07/18/2019 Unknow n PT 7916831 INR 1.1 07/18/2019 [place] [address] Glucose 75 mg/dL 07/06 [place] [address] CREATININE 0.61 mg/dL [place] [address] BUN 15 mg/dL 07/06 [place] [address] SODIUM 142 mmol/L 06/23 [place] [address] POTASSIUM 4.0 mmol/L 06/23 [place] [address] CHLORIDE 106 mmol/L 06/23 [place] [address] Bicarbonate 28 mmol/L [place] [address] AGAP 8 mmol/L 07/06 [place] [address] CALCIUM 9.3 mg/dL 07/06 Unknown PT 4117729 PT 17.4 Seconds 07/06/2019 Unknow n PT 3655065 INR 1.4 07/06/2019 Unknown GFR CALC 3648996 GFR Non Afr Amr >60 mL/min 07/06/2019 Un known GFR CALC 1386070 GFR Afr Amr >60 mL/min 07/06/2019 Unknow n COMPLETE BLOOD COUNT 5815995 WBC 4.7 10e9/L 07/06/20 19 Unknown COMPLETE BLOOD COUNT [id number] RBC 4.19 10e12/L 2018 Unknown COMPLETE BLOOD COUNT 4029967 HEMOGLOBIN 12.6 g/dL 07/06/20 19 Unknown COMPLETE BLOOD COUNT 0916845 HEMATOCRIT 39.4 % 07/06/20 19 Unknown COMPLETE BLOOD COUNT 7753123 MCV 94.0 fL 9 Unknown COMPLETE BLOOD COUNT 4687027 MCH 30.1 pg 9 Unknown COMPLETE BLOOD COUNT 7656526 MCHC 32.0 g/dL 9 Unknown COMPLETE BLOOD COUNT 5795107 PLATELET COUNT 160 10e9/L Unknown COMPLETE BLOOD COUNT 2589033 Mean Plt Volume 11.0 fL Unknown COMPLETE BLOOD COUNT 3990694 Neut Auto 56.6 % 9 Unknown COMPLETE BLOOD COUNT 7694765 Lymph Auto 27.0 % 07/06/20 19 Unknown COMPLETE BLOOD COUNT 1732060 Williamson Auto 13.7 % 9 Unknown COMPLETE BLOOD COUNT 6131884 RDW 14.6 % 9 Unknown COMPLETE BLOOD COUNT 6754930 Eos Auto 2.1 % 9 Unknown COMPLETE BLOOD COUNT 0314437 Baso Auto 0.6 % 9 Unknown COMPLETE BLOOD COUNT 4713766 Neutrophil Abs 2.66 10e9/L Unknown COMPLETE BLOOD COUNT 6491564 Lymphocyte Abs 1.27 10e9/L Unknown COMPLETE BLOOD COUNT 7791193 Monocyte Abs 0.64 10e9/L 06/23 Unknown COMPLETE BLOOD COUNT 9629057 Eosinophil Abs 0.10 10e9/L Unknown COMPLETE BLOOD COUNT 4219040 RDW-SD 48.7 fL 9 Unknown COMPLETE BLOOD COUNT [id number] Basophil Abs 0.03 10e9/L 06/23 Unknown COMPLETE BLOOD COUNT 3728502 WBC 4.6 10e9/L 06/14/20 19 Unknown COMPLETE BLOOD COUNT [id number] RBC 4.16 10e12/L 2018 Unknown COMPLETE BLOOD COUNT 4721726 HEMOGLOBIN 12.6 g/dL 06/14/20 19 Unknown COMPLETE BLOOD COUNT 9498874 HEMATOCRIT 39.1 % 06/14/20 19 Unknown COMPLETE BLOOD COUNT 4591291 MCV 94.0 fL 9 Unknown COMPLETE BLOOD COUNT 5754887 MCH 30.3 pg 9 Unknown COMPLETE BLOOD COUNT 5768884 MCHC 32.2 g/dL 9 Unknown COMPLETE BLOOD COUNT 9190739 PLATELET COUNT 167 10e9/L Unknown COMPLETE BLOOD COUNT 6661270 Mean Plt Volume 10.9 fL Unknown COMPLETE BLOOD COUNT 5853824 Neut Auto 59.6 % 9 Unknown COMPLETE BLOOD COUNT 3940683 Lymph Auto 24.1 % 06/14/20 19 Unknown COMPLETE BLOOD COUNT 7756902 Williamson Auto 14.0 % 9 Unknown COMPLETE BLOOD COUNT 2360034 RDW 14.8 % 9 Unknown COMPLETE BLOOD COUNT 1153883 Eos Auto 1.9 % 9 Unknown COMPLETE BLOOD COUNT 6515083 Baso Auto 0.4 % 9 Unknown COMPLETE BLOOD COUNT 2733845 Neutrophil Abs 2.74 10e9/L Unknown COMPLETE BLOOD COUNT 6305862 Lymphocyte Abs 1.11 10e9/L Unknown COMPLETE BLOOD COUNT 2640774 Monocyte Abs 0.64 10e9/L 05/24 Unknown COMPLETE BLOOD COUNT 5938860 Eosinophil Abs 0.09 10e9/L Unknown COMPLETE BLOOD COUNT 2819346 RDW-SD 49.3 fL 9 Unknown COMPLETE BLOOD COUNT 2225532 Basophil Abs 0.02 10e9/L 05/24 Unknown PT [id number] PT 22.3 Seconds 06/14/2019 Unknow n PT 5708988 INR 1.9 06/14/2019 Unknown COMPLETE BLOOD COUNT 2045941 WBC 4.0 10e9/L 05/13/20 19 Unknown COMPLETE BLOOD COUNT 3930411 RBC 3.82 10e12/L 2018 Unknown COMPLETE BLOOD COUNT 2027539 HEMOGLOBIN 11.5 g/dL 05/13/20 19 Unknown COMPLETE BLOOD COUNT 7528966 HEMATOCRIT 36.4 % 05/13/20 19 Unknown COMPLETE BLOOD COUNT 2457376 MCV 95.3 fL 9 Unknown COMPLETE BLOOD COUNT 7578198 MCH 30.1 pg 9 Unknown COMPLETE BLOOD COUNT 6203316 MCHC 31.6 g/dL 9 Unknown COMPLETE BLOOD COUNT 8821941 PLATELET COUNT 175 10e9/L Unknown COMPLETE BLOOD COUNT 5353012 Mean Plt Volume 10.5 fL Unknown COMPLETE BLOOD COUNT 8554375 Neut Auto 63.2 % 9 Unknown COMPLETE BLOOD COUNT 3207833 Lymph Auto 22.0 % 05/13/20 19 Unknown COMPLETE BLOOD COUNT 8637028 Williamson Auto 12.1 % 9 Unknown COMPLETE BLOOD COUNT 4529815 RDW 14.9 % 9 Unknown COMPLETE BLOOD COUNT 0365091 Eos Auto 2.2 % 9 Unknown COMPLETE BLOOD COUNT 1277074 Baso Auto 0.5 % 9 Unknown COMPLETE BLOOD COUNT 6890227 Neutrophil Abs 2.53 10e9/L Unknown COMPLETE BLOOD COUNT 4834276 Lymphocyte Abs 0.88 10e9/L Unknown COMPLETE BLOOD COUNT 5290255 Monocyte Abs 0.48 10e9/L 04/24 Unknown COMPLETE BLOOD COUNT 0853599 Eosinophil Abs 0.09 10e9/L Unknown COMPLETE BLOOD COUNT 6953187 RDW-SD 49.6 fL 9 Unknown COMPLETE BLOOD COUNT 1106572 Basophil Abs 0.02 10e9/L 04/24 Unknown COMPREHENSIVE METABOLIC 07222 AST 18 U/L 2018 Unknown COMPREHENSIVE METABOLIC 94122 ALT 14 U/L 2018 Unknown COMPREHENSIVE METABOLIC 94699 BUN 15 mg/dL 2018 Unknown COMPREHENSIVE METABOLIC 75575 ALBUMIN 4.0 g/dL 2018 Unknown COMPREHENSIVE METABOLIC 17063 CHLORIDE 108 mmol/L 05/13 Unknown COMPREHENSIVE METABOLIC 93479 Bili Total 0.9 mg/dL 05/13 Unknown COMPREHENSIVE METABOLIC 18353 ALK PHOS 84 U/L 2018 Unknown COMPREHENSIVE METABOLIC 24693 SODIUM 142 mmol/L 05/13 Unknown COMPREHENSIVE METABOLIC 20178 CREATININE 0.72 mg/dL 04/24 Unknown COMPREHENSIVE METABOLIC 72908 CALCIUM 8.9 mg/dL 2018 Unknown COMPREHENSIVE METABOLIC 23287 POTASSIUM 4.0 mmol/L 05/13 Unknown COMPREHENSIVE METABOLIC 35984 Total Protein 5.5 g/dL Unknown COMPREHENSIVE METABOLIC 05242 Glucose 95 mg/dL 2018 Unknown COMPREHENSIVE METABOLIC 75082 Bicarbonate 27 mmol/L 04/24 Unknown COMPREHENSIVE METABOLIC 75424 AGAP 7 mmol/L 2018 Unknown GFR CALC 9291219 GFR Non Afr Amr >60 mL/min 05/13/2019 Un known GFR CALC 4465703 GFR Afr Amr >60 mL/min 05/13/2019 Unknow n THYROID STIMULATING HORMONE 01444 TSH 2.669 uIU/mL 05/13/2019 Unknown FREE T4 72739 T4 Free 1.19 ng/dL 05/13/2019 Unknown PT 4880780 PT 24.2 Seconds 05/06/2019 Unknow n PT 7162254 INR 2.1 05/06/2019 Unknown PT 3660404 PT 24.1 Seconds 03/08/2019 Unknow n PT 7868117 INR 2.9 03/08/2019 Unknown Procedures Procedure Codes Date PROTHROMBIN TIME CPT-4: 95438 10/26/2019 ROUTINE VENIPUNCTURE CPT-4: 37376 10/26/2019 ROUTINE VENIPUNCTURE CPT-4: 12929 10/11/2019 PT CPT-4: 2104188 10/11/2019 PPPS, initial visit CPT-4: G0438 09/20/2019 ROUTINE VENIPUNCTURE CPT-4: 01987 09/08/2019 PT CPT-4: 5998773 09/08/2019 THER/PROPH/DIAG INJ SC/IM CPT-4: 07922 09/08/2019 TRIAMCINOLONE ACET INJ NOS CPT-4: J3301 09/08/2019 ROUTINE VENIPUNCTURE CPT-4: 47515 07/29/2019 PT CPT-4: 0281686 07/29/2019 ROUTINE VENIPUNCTURE CPT-4: 98549 07/18/2019 PT CPT-4: 0932147 07/18/2019 METABOLIC PANEL TOTAL CA CPT-4: 78525 07/06/2019 COMPLETE CBC W/AUTO DIFF WBC CPT-4: 11067 07/06/2019 PROTHROMBIN TIME CPT-4: 20913 07/06/2019 ROUTINE VENIPUNCTURE CPT-4: 19776 06/14/2019 PROTHROMBIN TIME CPT-4: 42288 06/14/2019 COMPLETE CBC W/AUTO DIFF WBC CPT-4: 61276 06/14/2019 ROUTINE VENIPUNCTURE CPT-4: 82818 05/13/2019 COMPREHEN METABOLIC PANEL CPT-4: 06086 05/13/2019 COMPLETE CBC W/AUTO DIFF WBC CPT-4: 56445 05/13/2019 ASSAY THYROID STIM HORMONE CPT-4: 88428 05/13/2019 ASSAY OF FREE THYROXINE CPT-4: 53435 05/13/2019 PT CPT-4: 2774281 05/06/2019 ROUTINE VENIPUNCTURE CPT-4: 95031 05/06/2019 PT CPT-4: 9644349 04/07/2019 ROUTINE VENIPUNCTURE CPT-4: 54597 04/07/2019 ROUTINE VENIPUNCTURE CPT-4: 69324 03/08/2019 PROTHROMBIN TIME CPT-4: 56615 03/08/2019 Vital Signs Date Vital 11/03/2019 Blood [...] 1: 122/68 Code: 8480-6 BMI: 35.0 Code: 77723-2 Heart Rate 1: 72 bpm Height: 5'3" [...] 1: 114/78 Code: 8480-6 BMI: 36.1 Code: 11215-9 Heart Rate 1: 76 bpm Height: 5'3" [...] pressure check 03/22/2019 ~generic 03/08/2019 New Patient---establ melodie visit Encounters Encounter Performer Location Codes Date ([id number]) OFFICE/OUTPATIENT VISIT EST Diagnosis: Post concussion syndrome[ICD10: F07.81] Diagnosis: Head contusion[ICD10: S00.93XA] Diagnosis: Chronic airway obstruction, not elsewhere classified[ICD10: J44.9] Becki BLACK DO [employer] CPT-4: 03078 11/03/2019 ([id number]) OFFICE/OUTPATIENT VISIT EST Diagnosis: Fall as cause of accidental injury at home as place of occurrence[ICD10: W19.XXXA] Diagnosis: Headache[ICD10: R51] Diagnosis: Essential (primary) hypertension[ICD10: I10] Diagnosis: Long-term (current) use of anticoagulants, INR goal 2.0-3.0[ICD10: Z79.01] Diagnosis: Ecchymosis of left eye[ICD10: S05.12XA] Jannette BLACK DO [employer] CPT-4: 30345 10/31/2019 ([id number]) NURSE/OUTPATIENT VISIT EST Diagnosis: Long-term (current) use of anticoagulants, INR goal 2.0-3.0[ICD10: Z79.01] Becki JENNINGSLINE David BL[facility] [employer] CPT-4: 95570 10/26/2019 ([id number]) OFFICE/OUTPATIENT VISIT EST Diagnosis: Long-term (current) use of anticoagulants, INR goal 2.0-3.0[ICD10: Z79.01] Diagnosis: Pain in right arm[ICD10: M79.601] Diagnosis: Radiculopathy of arm[ICD10: M54.10] Jannette ROBERTS ALFONSO David BLACK [employer] CPT-4: 45666 10/11/2019 ([id number]) OFFICE/OUTPATIENT VISIT EST Diagnosis: Long-term (current) use of anticoagulants, INR goal 2.0-3.0[ICD10: Z79.01] Diagnosis: Sinusitis[ICD10: J32.9] Diagnosis: Pain in right arm[ICD10: M79.601] Jannette BLACK [employer] CPT-4: 00843 09/08/2019 ([id number]) NURSE/OUTPATIENT VISIT EST Diagnosis: Chronic atrial fibrillation[ICD10: I48.2] Diagnosis: Encounter for therapeutic drug level monitoring[ICD10: Z51.81] Becki Dykesanirudh [facility] [employer] CPT-4: 36666 07/29/2019 ([id number]) NURSE/OUTPATIENT VISIT EST Diagnosis: Chronic atrial fibrillation[ICD10: I48.2] Diagnosis: Encounter for therapeutic drug level monitoring[ICD10: Z51.81] Becki [facility] DO [facility] CPT-4: 53899 07/18/2019 ([id number]) NURSE/OUTPATIENT VISIT EST Diagnosis: Encounter for therapeutic drug level monitoring[ICD10: Z51.81] Diagnosis: Chronic atrial fibrillation[ICD10: I48.2] Diagnosis: Essential (primary) hypertension[ICD10: I10] Becki BLACK DO [facility] CPT-4: 56180 07/06/2019 ([id number]) OFFICE/OUTPATIENT VISIT EST Diagnosis: Encounter for therapeutic drug level monitoring[ICD10: Z51.81] Diagnosis: Anemia, unspecified[ICD10: D64.9] Diagnosis: Bitten by dog, sequela[ICD10: W54.0XXS] 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] Becki BLACK [employer] [facility] CPT-4: 93848 06/14/2019 ([id number]) OFFICE/OUTPATIENT VISIT EST Diagnosis: Bitten by dog, sequela[ICD10: W54.0XXS] Diagnosis: Other fatigue[ICD10: R53.83] Diagnosis: Hypothyroidism, unspecified[ICD10: E03.9] Diagnosis: Muscle weakness (generalized)[ICD10: M62.81] Diagnosis: Generalized anxiety disorder[ICD10: F41.1] Jannette BLACK [employer] [facility] CPT-4: 94592 05/13/2019 ([id number]) NURSE/OUTPATIENT VISIT EST Diagnosis: Encounter for therapeutic drug level monitoring[ICD10: Z51.81] Becki BLACK [employer] [facility] CPT-4: 69734 05/06/2019 ([id number]) OFFICE/OUTPATIENT VISIT EST Diagnosis: Bitten by dog, sequela[ICD10: W54.0XXS] Diagnosis: Pain in right wrist[ICD10: M25.531] Diagnosis: Abrasion of right upper arm, sequela[ICD10: S40.811S] Diagnosis: Abrasion of left upper arm, sequela[ICD10: S40.812S] Jannette Mayen [facility] [employer] [facility] [employer] CPT-4: 65944 05/02/2019 ([id number]) NURSE/OUTPATIENT VISIT EST Diagnosis: Encounter for therapeutic drug level monitoring[ICD10: Z51.81] Becki CONNELL [employer] [facility] [employer] CPT-4: 47336 04/07/2019 ([id number]) OFFICE/OUTPATIENT VISIT NEW Diagnosis: Encounter for therapeutic drug level monitoring[ICD10: Z51.81] Diagnosis: Chronic atrial fibrillation[ICD10: I48.2] Diagnosis: Essential (primary) hypertension[ICD10: I10] Diagnosis: Abnormal findings on diagnostic imaging of heart and coronary circulation[ICD10: R93.1] Diagnosis: Other forms of dyspnea[ICD10: R06.09] Diagnosis: Hypothyroidism, unspecified[ICD10: E03.9] Diagnosis: Mixed hyperlipidemia[ICD10: E78.2] Becki MCKEE [employer] [facility] [employer] CPT-4: 37392 03/08/2019 Plan of Care Planned Activity Notes [...] : 496 ICD-10 : J44.9 11/03/2019 [facility] [phone] [facility] [facility] 11/03/2019 Care Plan: CT HEAD/BRAIN W/O DYE LOINC : 63174-0 Pending 11/01/2019 Visit Diagnosis Plan: Essential (primary) [...] ICD-10 : S05.12XA 10/31/2019 Appointment: Jannette Mayen [address] [place] [address] Hospital Follow Up 10/31/2019 Patient Education: High Blood Pressure Co mpleted 10/31/2019 Patient Education: losartan- [employer] Coupon [id number] https://www.[employer]/sample422 Group/resources/getResource/61/5z293800-4u99-9393-3c Completed 10/31/2019 Appointment: Becki Black WPtel: [phone] [facility] FOLLOW UP 10/26/2019 Visit Diagnosis Plan: Radiculopathy of arm Discussion: flexeril prescribed to take as needed. will start at low dose but instructed patient to call office if not effective and will increase mg dose. PT ordered at [facility] to assist with pain. if no improvement or worsening from PT, will need imaging. 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 ICD-9 : 906.1 ICD-10 : W54.0XXS 09/20/2019 Visit Diagnosis Plan: Encounter for [facility] adult medical examination without abnormal findings Discussion: Mediterranean diet Combinati on of cardio and weight bearing exercise Had flu shot Update mammogram ICD-9 : V70.9 ICD-10 : Z00.00 09/20/2019 Appointment: Becki Black WPtel: [phone] [facility] Annual Well Visit 09/20/2019 Visit Diagnosis [...] ICD-10 : Z79.01 09/08/2019 Appointment: Jannette Mayen [address] ACUTE ILLNESS 09/08/2019 Appointment: Becki Black WPtel: [address] [place] [address] US CANCELED 08/16/2019 Appointment: Becki Black WPtel: [address] [place] [address] US LAB 07/29/2019 Appointment: Becki Black WPtel: [address] [place] [address] US LAB 07/18/2019 Appointment: Becki Black WPtel: [address] [place] [address] US LAB 07/06/2019 Visit Diagnosis Plan: Encounter [...] : W54.0XXS 06/14/2019 Appointment: Becki Black WPtel: [address] [place] [address] US FOLLOW UP 06/14/2019 Visit Diagnosis Plan: [...] hydrocodone several days ago. will refer to [facility] as well to discuss concerns. ICD-9 : 300.02 ICD-10 : F41.1 05/13/2019 Appointment: Jannette Mayen [address] [place], [place] [address] FOLLOW UP 05/13/2019 Patient Education: carvedilol- Opt[employer] Coupon [id number] https://www.[employer]/samplemd/resources/getResource/61/10t5a488-5whv-8575-8b Completed 05/13/2019 Patient Education: Xanax- Optimize[employer] Coupon [id number] https://www.[employer]/samplemd/resources/getResource/61/7389c5l3-8d13-5m8x-a5 1e-8t25416030s1.pdf Completed 05/13/2019 [facility]ment: [phone] [facility] [facility] 05/06/2019 Visit Diagnosis Plan: Pain in right wrist Discussion: xray ordered of wrist to rule out acute fracture. will send results to dr. portillo at [facility]. ICD-9 : 719.43 ICD-10 : M25.531 [...] ICD-10 : S40.811S 05/02/2019 Appointment: Jannette Mayen [address] [place] [address] ACUTE ILLNESS 05/02/2019 Care Plan: X-RAY EXAM OF WRIST right LOINC : 3 7302-7 Pending 05/02/2019 Appointment: Becki Black WPtel: [address] [place] [address] LAB 04/07/2019 Appointment: Becki Black WPtel: [address] [place] [address] BP CHECK 03/22/2019 Visit Diagnosis Plan: Abnormal [...] I48.2 03/08/2019 Appointment: [facility] [phone] [facility] NEW PATIENT 03/08/2019 Instructions No Instructions Medical Equipment No Medical Equipment data Health Concerns Section Health Concerns data not found Goals Section Goals data not found Interventions Section Interventions data not found Health Status Evaluations/Outcomes Section Health Status Evaluations/Outcomes data not found Advance Directives No Advance Directive data
--- OUTSIDE RECORDS SUMMARY | 2019-11-24 06:51 | XMS REPORT | CCD ---
Author Author Tricia Black D.O. 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 Name Role Phone PP Unavailable CCM Unavailable Summary Purpose Interface Exchange Insurance Providers Payer name Policy type / Coverage type Covered alliance party ID Effective Begin Date Effective End Date WPS MEDICARE PART B [place] Medicare Part B [id number] Unknown Unknown [facility] Medicare Part B [id number] Unknown Unknown Family history Grandmother Diagnosis Age [...] Unknown Retired 03/08/[address]: 740015411 Has never smoked or chewed tobacco 03/08/[address]: 397590 Currently drinks alcohol 03/08 Has the patient [...] Date Stop Date Status Fill Instructions losartan 50 mg tablet RxNorm: 215706 2 Tablet(s) Oral QD 11/01/2019 0 04/29/2020 Active potassium chloride ER 10 mEq capsule,extended release RxNorm : 531287 1 Capsule(s) Oral QD 10/26/2019 10/26/2019 Inactive potassium chloride ER 10 mEq tablet,extended release RxNorm: 539352 1 TABLET(S) ORAL QD 10/22/2019 04/18/2020 Active Replaces PA on 1 0MEQ Capsules Aspir-81 mg tablet,delayed release RxNorm: 028164 1 Tablet(s) O ral QD 10/11/2019 No Stop Date Active cyclobenzaprine 5 mg tablet RxNorm: 484168 1 Tablet(s) Oral two times a day as needed for muscle spasm 10/11/2019 No Stop Date Active Coumadin 4 mg tablet RxNorm: 891295 1 Tablet(s) Oral Mo nd through Thursday and 1/2 tablet (2mg) on Sat/Sun 10/11/2019 No Stop Date Active potassium chloride ER 10 mEq tablet,extended release RxNorm: 385877 1 Tablet(s) Oral QD 09/22/2019 09/21/2019 Inactive Replaces PA on 1 0MEQ Capsules potassium chloride ER 10 mEq tablet,extended release RxNorm: 818532 1 Tablet(s) Oral QD 09/22/2019 10/10/2019 Inactive Replaces PA on 1 0MEQ Capsules potassium chloride ER 10 mEq capsule,extended release RxNorm : 227987 1 Capsule(s) Oral QD 09/21/2019 09/21/2019 Inactive carvedilol 25 mg tablet RxNorm: 168768 1 Tablet(s) Oral two antolin es a day 08/23/2019 11/21/2019 Active isosorbide mononitrate ER 30 mg tablet,extended release 24 h r RxNorm: 838329 TABLET(S) 1 TABLET(S) PO NEEDED 08/22/2019 02/17/2020 Active Patient requests 90 days supply isosorbide mononitrate ER 30 mg tablet,extended release 24 h r RxNorm: 475928 Tablet(s) 1 TABLET(S) PO NEEDED 08/16/2019 08/21/2019 Inactive Patient requests 90 days supply levothyroxine 50 mcg tablet RxNorm: 288410 1 Tablet(s) PO QD 201802/03/2020 Active isosorbide mononitrate ER 30 mg tablet,extended release 24 h r RxNorm: 852726 Tablet(s) 1 TABLET(S) PO NEEDED 06/27/2019 08/15/2019 Inactive Patient requests 90 days supply isosorbide mononitrate ER 30 mg tablet,extended release 24 h r RxNorm: 751906 1 Tablet(s) PO QD as needed 06/27/2019 06/27/2019 Inactive Neris ent requests 90 days supply carvedilol 25 mg tablet RxNorm: 396893 1 TABLET(S) PO BID 06/27/2019 08/22/2019 Inactive furosemide 40 mg tablet RxNorm: 074660 1 Tablet(s) PO QAM 06/21/2019 12/17/2019 Active carvedilol 25 mg tablet RxNorm: 045863 1 Tablet(s) PO BID 05/13/2019 06/26/2019 Inactive Xanax 0.25 mg tablet RxNorm: 176494 1/2 Tablet(s) PO Q6H as needed 05/13/2019 09/07/2019 Inactive levothyroxine 50 mcg tablet RxNorm: 372086 1 Tablet(s) PO QD 201808/07/2019 Inactive losartan 50 mg tablet RxNorm: 475388 1 Tablet(s) PO QD 04/26/2019 Inactive losartan 50 mg tablet RxNorm: 178984 1 Tablet(s) PO QD 04/20/201901/2019 Inactive pravastatin 40 mg tablet RxNorm: 363011 1 Tablet(s) PO QD 04/07/2019 06/05/2019 Inactive isosorbide mononitrate ER 30 mg tablet,extended release 24 h r RxNorm: 411432 1 Tablet(s) PO as needed 04/07/2019 04/06/2019 Inactive isosorbide mononitrate ER 30 mg tablet,extended release 24 h r RxNorm: 775966 1 TABLET(S) PO NEEDED 04/07/2019 06/26/2019 Inactive Patient requests 90 days supply losartan 50 mg tablet RxNorm: 064115 1 Tablet(s) PO QD 03/22/2019 Inactive carvedilol 25 mg tablet RxNorm: 012937 1 Tablet(s) PO BID No Start Date 05/12/2019 Inactive losartan 50 mg tablet RxNorm: 677840 1 Tablet(s) PO QD No Start Date 03/21/2019 Inactive Ventolin HFA 90 mcg/actuation aerosol inhaler RxNorm: 221060 1-2 Puff(s) INH as needed No Start Date 09/07/2019 Inactive furosemide 40 mg tablet RxNorm: 689828 1 Tablet(s) PO QAM No Start Date 06/20/2019 Inactive pravastatin 40 mg tablet RxNorm: 297494 1 Tablet(s) PO QD No Start Date 04/06/2019 Inactive Coumadin 2 mg tablet RxNorm: 827387 1 Tablet(s) PO Mon, Fri, Sat and Sun then 2 tablets (4mg) on , Thu and No Start Date 10/10/2019 Inactive isosorbide mononitrate ER 30 mg tablet,extended release 24 h r RxNorm: 420241 Tablet(s) PO as needed No Start Date [...] ER 10 mEq capsule,extended release RxNorm : 296471 1 Capsule(s) PO QD No Start Date 09/20/2019 Inactive levothyroxine 50 mcg tablet RxNorm: 876728 1 Tablet(s) PO QD No Sta rt Date 04/25/2019 Inactive Medication Administered No Medication Administered data Immunizations Vaccine Codes Date Status Influenza CVX: 135 07/02/2019 Results Observation Observation Code Item Item Code Result Date S ervice Location PT 7650692 PT 31.4 Seconds 10/26/2019 Unknow n PT 6501157 INR 2.9 10/26/2019 Unknown PT 0501611 PT 17.6 Seconds 10/11/2019 Unknow n PT 1940802 INR 1.4 10/11/2019 Unknown PT 2599522 PT 23.7 Seconds 09/08/2019 Unknow n PT 7720937 INR 2.0 09/08/2019 Unknown PT 0579103 PT 23.2 Seconds 07/29/2019 Unknow n PT 1107894 INR 2.0 07/29/2019 Unknown PT 0463274 PT 14.3 Seconds 07/18/2019 Unknow n PT 0454795 INR 1.1 07/18/2019 [place] [address] Glucose 75 mg/dL 07/06 [place] [address] CREATININE 0.61 mg/dL [place] [address] BUN 15 mg/dL 07/06 [place] [address] SODIUM 142 mmol/L 06/23 [place] [address] POTASSIUM 4.0 mmol/L 06/23 [place] [address] CHLORIDE 106 mmol/L 06/23 [place] [address] Bicarbonate 28 mmol/L [place] [address] AGAP 8 mmol/L 07/06 [place] [address] CALCIUM 9.3 mg/dL 07/06 Unknown PT 5412487 PT 17.4 Seconds 07/06/2019 Unknow n PT 4376801 INR 1.4 07/06/2019 Unknown GFR CALC 7209060 GFR Non Afr Amr >60 mL/min 07/06/2019 Un known GFR CALC 4695843 GFR Afr Amr >60 mL/min 07/06/2019 Unknow n COMPLETE BLOOD COUNT 8715564 WBC 4.7 10e9/L 07/06/20 19 Unknown COMPLETE BLOOD COUNT 7668872 RBC 4.19 10e12/L 2018 Unknown COMPLETE BLOOD COUNT 1841358 HEMOGLOBIN 12.6 g/dL 07/06/20 19 Unknown COMPLETE BLOOD COUNT 4761456 HEMATOCRIT 39.4 % 07/06/20 19 Unknown COMPLETE BLOOD COUNT 1896445 MCV 94.0 fL 9 Unknown COMPLETE BLOOD COUNT 8353821 MCH 30.1 pg 9 Unknown COMPLETE BLOOD COUNT 4511121 MCHC 32.0 g/dL 9 Unknown COMPLETE BLOOD COUNT 1305666 PLATELET COUNT 160 10e9/L Unknown COMPLETE BLOOD COUNT 4677385 Mean Plt Volume 11.0 fL Unknown COMPLETE BLOOD COUNT 7431451 Neut Auto 56.6 % 9 Unknown COMPLETE BLOOD COUNT 8798929 Lymph Auto 27.0 % 07/06/20 19 Unknown COMPLETE BLOOD COUNT 3351150 [place] Auto 13.7 % 9 Unknown COMPLETE BLOOD COUNT 8737110 RDW 14.6 % 9 Unknown COMPLETE BLOOD COUNT 3171043 Eos Auto 2.1 % 9 Unknown COMPLETE BLOOD COUNT 1611034 Baso Auto 0.6 % 9 Unknown COMPLETE BLOOD COUNT 3031204 Neutrophil Abs 2.66 10e9/L Unknown COMPLETE BLOOD COUNT 5154045 Lymphocyte Abs 1.27 10e9/L Unknown COMPLETE BLOOD COUNT 1004777 Monocyte Abs 0.64 10e9/L 06/23 Unknown COMPLETE BLOOD COUNT 4421060 Eosinophil Abs 0.10 10e9/L Unknown COMPLETE BLOOD COUNT 4957840 RDW-SD 48.7 fL 9 Unknown COMPLETE BLOOD COUNT 0390158 Basophil Abs 0.03 10e9/L 06/23 Unknown COMPLETE BLOOD COUNT 0901216 WBC 4.6 10e9/L 06/14/20 19 Unknown COMPLETE BLOOD COUNT 7792975 RBC 4.16 10e12/L 2018 Unknown COMPLETE BLOOD COUNT 9100238 HEMOGLOBIN 12.6 g/dL 06/14/20 19 Unknown COMPLETE BLOOD COUNT 2050760 HEMATOCRIT 39.1 % 06/14/20 19 Unknown COMPLETE BLOOD COUNT 1806982 MCV 94.0 fL 9 Unknown COMPLETE BLOOD COUNT 1096904 MCH 30.3 pg 9 Unknown COMPLETE BLOOD COUNT 2774279 MCHC 32.2 g/dL 9 Unknown COMPLETE BLOOD COUNT 1516605 PLATELET COUNT 167 10e9/L Unknown COMPLETE BLOOD COUNT 3698427 Mean Plt Volume 10.9 fL Unknown COMPLETE BLOOD COUNT 9520082 Neut Auto 59.6 % 9 Unknown COMPLETE BLOOD COUNT 8974513 Lymph Auto 24.1 % 06/14/20 19 Unknown COMPLETE BLOOD COUNT 5420854 [place] Auto 14.0 % 9 Unknown COMPLETE BLOOD COUNT 5039376 RDW 14.8 % 9 Unknown COMPLETE BLOOD COUNT 6557604 Eos Auto 1.9 % 9 Unknown COMPLETE BLOOD COUNT 6524357 Baso Auto 0.4 % 9 Unknown COMPLETE BLOOD COUNT 8542362 Neutrophil Abs 2.74 10e9/L Unknown COMPLETE BLOOD COUNT 3881600 Lymphocyte Abs 1.11 10e9/L Unknown COMPLETE BLOOD COUNT 9808400 Monocyte Abs 0.64 10e9/L 05/24 Unknown COMPLETE BLOOD COUNT 5964320 Eosinophil Abs 0.09 10e9/L Unknown COMPLETE BLOOD COUNT 9445972 RDW-SD 49.3 fL 9 Unknown COMPLETE BLOOD COUNT 4428694 Basophil Abs 0.02 10e9/L 05/24 Unknown PT 6988001 PT 22.3 Seconds 06/14/2019 Unknow n PT 3292180 INR 1.9 06/14/2019 Unknown COMPLETE BLOOD COUNT 1445492 WBC 4.0 10e9/L 05/13/20 19 Unknown COMPLETE BLOOD COUNT 8869348 RBC 3.82 10e12/L 2018 Unknown COMPLETE BLOOD COUNT 6844612 HEMOGLOBIN 11.5 g/dL 05/13/20 19 Unknown COMPLETE BLOOD COUNT 1366272 HEMATOCRIT 36.4 % 05/13/20 19 Unknown COMPLETE BLOOD COUNT 4937419 MCV 95.3 fL 9 Unknown COMPLETE BLOOD COUNT 0279038 MCH 30.1 pg 9 Unknown COMPLETE BLOOD COUNT 2559969 MCHC 31.6 g/dL 9 Unknown COMPLETE BLOOD COUNT 5774828 PLATELET COUNT 175 10e9/L Unknown COMPLETE BLOOD COUNT 1633244 Mean Plt Volume 10.5 fL Unknown COMPLETE BLOOD COUNT 2226271 Neut Auto 63.2 % 9 Unknown COMPLETE BLOOD COUNT 4786293 Lymph Auto 22.0 % 05/13/20 19 Unknown COMPLETE BLOOD COUNT 4135436 [place] Auto 12.1 % 9 Unknown COMPLETE BLOOD COUNT 9544831 RDW 14.9 % 9 Unknown COMPLETE BLOOD COUNT 7697430 Eos Auto 2.2 % 9 Unknown COMPLETE BLOOD COUNT 2909807 Baso Auto 0.5 % 9 Unknown COMPLETE BLOOD COUNT 1956681 Neutrophil Abs 2.53 10e9/L Unknown COMPLETE BLOOD COUNT 8457117 Lymphocyte Abs 0.88 10e9/L Unknown COMPLETE BLOOD COUNT 4750699 Monocyte Abs 0.48 10e9/L 04/24 Unknown COMPLETE BLOOD COUNT 0683439 Eosinophil Abs 0.09 10e9/L Unknown COMPLETE BLOOD COUNT 1191995 RDW-SD 49.6 fL 9 Unknown COMPLETE BLOOD COUNT 2928947 Basophil Abs 0.02 10e9/L 04/24 Unknown COMPREHENSIVE METABOLIC 23823 AST 18 U/L 2018 Unknown COMPREHENSIVE METABOLIC 12739 ALT 14 U/L 2018 Unknown COMPREHENSIVE METABOLIC 74441 BUN 15 mg/dL 2018 Unknown COMPREHENSIVE METABOLIC 58533 ALBUMIN 4.0 g/dL 2018 Unknown COMPREHENSIVE METABOLIC 23334 CHLORIDE 108 mmol/L 05/13 Unknown COMPREHENSIVE METABOLIC 48448 Bili Total 0.9 mg/dL 05/13 Unknown COMPREHENSIVE METABOLIC 95751 ALK PHOS 84 U/L 2018 Unknown COMPREHENSIVE METABOLIC 83699 SODIUM 142 mmol/L 05/13 Unknown COMPREHENSIVE METABOLIC 24934 CREATININE 0.72 mg/dL 04/24 Unknown COMPREHENSIVE METABOLIC 19421 CALCIUM 8.9 mg/dL 2018 Unknown COMPREHENSIVE METABOLIC 06658 POTASSIUM 4.0 mmol/L 05/13 Unknown COMPREHENSIVE METABOLIC 58311 Total Protein 5.5 g/dL Unknown COMPREHENSIVE METABOLIC 70136 Glucose 95 mg/dL 2018 Unknown COMPREHENSIVE METABOLIC 40617 Bicarbonate 27 mmol/L 04/24 Unknown COMPREHENSIVE METABOLIC 86717 AGAP 7 mmol/L 2018 Unknown GFR CALC 2235472 GFR Non Afr Amr >60 mL/min 05/13/2019 Un known GFR CALC 6282282 GFR Afr Amr >60 mL/min 05/13/2019 Unknow n THYROID STIMULATING HORMONE 42434 TSH 2.669 uIU/mL 05/13/2019 Unknown FREE T4 41771 T4 Free 1.19 ng/dL 05/13/2019 Unknown PT 7000570 PT 24.2 Seconds 05/06/2019 Unknow n PT 1739348 INR 2.1 05/06/2019 Unknown PT 6999507 PT 24.1 Seconds 03/08/2019 Unknow n PT 1106934 INR 2.9 03/08/2019 Unknown Procedures Procedure Codes Date PROTHROMBIN TIME CPT-4: 09768 10/26/2019 ROUTINE VENIPUNCTURE CPT-4: 24735 10/26/2019 ROUTINE VENIPUNCTURE CPT-4: 07152 10/11/2019 PT CPT-4: 2095860 10/11/2019 PPPS, initial visit CPT-4: G0438 09/20/2019 ROUTINE VENIPUNCTURE CPT-4: 53226 09/08/2019 PT CPT-4: 5090944 09/08/2019 THER/PROPH/DIAG INJ SC/IM CPT-4: 35717 09/08/2019 TRIAMCINOLONE ACET INJ NOS CPT-4: J3301 09/08/2019 ROUTINE VENIPUNCTURE CPT-4: 56744 07/29/2019 PT CPT-4: 4753509 07/29/2019 ROUTINE VENIPUNCTURE CPT-4: 03596 07/18/2019 PT CPT-4: 0576279 07/18/2019 METABOLIC PANEL TOTAL CA CPT-4: 71091 07/06/2019 COMPLETE CBC W/AUTO DIFF WBC CPT-4: 12676 07/06/2019 PROTHROMBIN TIME CPT-4: 55759 07/06/2019 ROUTINE VENIPUNCTURE CPT-4: 33668 06/14/2019 PROTHROMBIN TIME CPT-4: 62223 06/14/2019 COMPLETE CBC W/AUTO DIFF WBC CPT-4: 93032 06/14/2019 ROUTINE VENIPUNCTURE CPT-4: 10479 05/13/2019 COMPREHEN METABOLIC PANEL CPT-4: 12170 05/13/2019 COMPLETE CBC W/AUTO DIFF WBC CPT-4: 87531 05/13/2019 ASSAY THYROID STIM HORMONE CPT-4: 63396 05/13/2019 ASSAY OF FREE THYROXINE CPT-4: 91926 05/13/2019 PT CPT-4: 3350613 05/06/2019 ROUTINE VENIPUNCTURE CPT-4: 61700 05/06/2019 PT CPT-4: 9262442 04/07/2019 ROUTINE VENIPUNCTURE CPT-4: 39778 04/07/2019 ROUTINE VENIPUNCTURE CPT-4: 05157 03/08/2019 PROTHROMBIN TIME CPT-4: 16198 03/08/2019 Vital Signs Date Vital 11/03/2019 Blood [...] 1: 122/68 Code: 8480-6 BMI: 35.0 Code: 42081-7 Heart Rate 1: 72 bpm Height: 5'3" [...] 1: 114/78 Code: 8480-6 BMI: 36.1 Code: 04390-2 Heart Rate 1: 76 bpm Height: 5'3" [...] visit Encounters Encounter Performer Location Codes Date ([id number]) OFFICE/OUTPATIENT VISIT EST Diagnosis: Post concussion syndrome[ICD10: F07.81] Diagnosis: Head contusion[ICD10: S00.93XA] Diagnosis: Chronic airway obstruction, not elsewhere classified[ICD10: J44.9] [facility] CPT-4: 05103 11/03/2019 ([id number]) OFFICE/OUTPATIENT VISIT EST Diagnosis: Fall as cause of accidental injury at home as place of occurrence[ICD10: W19.XXXA] Diagnosis: Headache[ICD10: R51] Diagnosis: Essential (primary) hypertension[ICD10: I10] Diagnosis: Long-term (current) use of anticoagulants, INR goal 2.0-3.0[ICD10: Z79.01] Diagnosis: Ecchymosis of left eye[ICD10: S05.12XA] Jannette BLACK DO [facility] CPT-4: 22362 10/31/2019 ([id number]) NURSE/OUTPATIENT VISIT EST Diagnosis: Long-term (current) use of anticoagulants, INR goal 2.0-3.0[ICD10: Z79.01] Becki BLACK DO [facility] CPT-4: 03689 10/26/2019 ([id number]) OFFICE/OUTPATIENT VISIT EST Diagnosis: Long-term (current) use of anticoagulants, INR goal 2.0-3.0[ICD10: Z79.01] Diagnosis: Pain in right arm[ICD10: M79.601] Diagnosis: Radiculopathy of arm[ICD10: M54.10] Jannette BLACK [facility] CPT-4: 20477 10/11/2019 ([id number]) OFFICE/OUTPATIENT VISIT EST Diagnosis: Long-term (current) use of anticoagulants, INR goal 2.0-3.0[ICD10: Z79.01] Diagnosis: Sinusitis[ICD10: J32.9] Diagnosis: Pain in right arm[ICD10: M79.601] Jannette BLACK [employer] CPT-4: 56921 09/08/2019 ([id number]) NURSE/OUTPATIENT VISIT EST Diagnosis: Chronic atrial fibrillation[ICD10: I48.2] Diagnosis: Encounter for therapeutic drug level monitoring[ICD10: Z51.81] Becki Donisanirudh [facility] CPT-4: 90562 07/29/2019 ([id number]) NURSE/OUTPATIENT VISIT EST Diagnosis: Chronic atrial fibrillation[ICD10: I48.2] Diagnosis: Encounter for therapeutic drug level monitoring[ICD10: Z51.81] Becki Donisanirudh [facility] CPT-4: 72831 07/18/2019 ([id number]) NURSE/OUTPATIENT VISIT EST Diagnosis: Encounter for therapeutic drug level monitoring[ICD10: Z51.81] Diagnosis: Chronic atrial fibrillation[ICD10: I48.2] Diagnosis: Essential (primary) hypertension[ICD10: I10] [facility] CPT-4: 31385 07/06/2019 ([id number]) OFFICE/OUTPATIENT VISIT EST Diagnosis: Encounter for therapeutic drug level monitoring[ICD10: Z51.81] Diagnosis: Anemia, unspecified[ICD10: D64.9] Diagnosis: Bitten by dog, sequela[ICD10: W54.0XXS] 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] [facility] CPT-4: 62428 06/14/2019 ([id number]) OFFICE/OUTPATIENT VISIT EST Diagnosis: Bitten by dog, sequela[ICD10: W54.0XXS] Diagnosis: Other fatigue[ICD10: R53.83] Diagnosis: Hypothyroidism, unspecified[ICD10: E03.9] Diagnosis: Muscle weakness (generalized)[ICD10: M62.81] Diagnosis: Generalized anxiety disorder[ICD10: F41.1] Jannette [facility] CPT-4: 52846 05/13/2019 ([id number]) NURSE/OUTPATIENT VISIT EST Diagnosis: Encounter for therapeutic drug level monitoring[ICD10: Z51.81] [facility] CPT-4: 22479 05/06/2019 ([id number]) OFFICE/OUTPATIENT VISIT EST Diagnosis: Bitten by dog, sequela[ICD10: W54.0XXS] Diagnosis: Pain in right wrist[ICD10: M25.531] Diagnosis: Abrasion of right upper arm, sequela[ICD10: S40.811S] Diagnosis: Abrasion of left upper arm, sequela[ICD10: S40.812S] Jannette [facility] CPT-4: 96943 05/02/2019 ([id number]) NURSE/OUTPATIENT VISIT EST Diagnosis: Encounter for therapeutic drug level monitoring[ICD10: Z51.81] [facility] CPT-4: 36517 04/07/2019 ([id number]) OFFICE/OUTPATIENT VISIT NEW Diagnosis: Encounter for therapeutic drug level monitoring[ICD10: Z51.81] Diagnosis: Chronic atrial fibrillation[ICD10: I48.2] Diagnosis: Essential (primary) hypertension[ICD10: I10] Diagnosis: Abnormal findings on diagnostic imaging of heart and coronary circulation[ICD10: R93.1] Diagnosis: Other forms of dyspnea[ICD10: R06.09] Diagnosis: Hypothyroidism, unspecified[ICD10: E03.9] Diagnosis: Mixed hyperlipidemia[ICD10: E78.2] [facility] CPT-4: 16920 03/08/2019 Plan of Care Planned Activity Notes [...] ICD-9 : 496 ICD-10 : J44.9 11/03/2019 Care Plan: CT HEAD/BRAIN W/O DYE LOINC : 81288-6 Pending 11/01/2019 Visit Diagnosis Plan: Essential (primary) [...] ICD-10 : S05.12XA 10/31/2019 Appointment: Jannette Mayen [address] [place], [place] [id number] Hospital Follow Up 10/31/2019 Patient Education: High Blood Pressure Co mpleted 10/31/2019 Patient Education: losartan- [employer] Coupon [id number] https://www.WhereverTV/samplemd/resources/getResource/61/6p528254-7k04-5500-0s Completed 10/31/2019 Appointment: Becki Black WPtel: [phone] [id number] FOLLOW UP 10/26/2019 Visit Diagnosis Plan: Long-term (current ) use of anticoagulants, INR goal 2.0-3.0 Discussion: will update pt/inr ICD-9 : V58.61 ICD-10 : Z79.01 10/11/2019 Visit Diagnosis Plan: Radiculopathy of arm Discussion: flexeril prescribed to take as needed. will start at low dose but instructed patient to call office if not effective and will increase mg dose. PT ordered at [facility] to assist with pain. if no improvement or worsening from PT, will need imaging. ICD-9 : 723.4 ICD-10 : M54.10 10/11/2019 Appointment: Jannette Mayen [address] [place], [place] [phone] ACUTE ILLNESS 10/11/2019 Patient Education: cyclobenzaprine- [employer] Coupon [id number] https://www.WhereverTV/sampleDresser [place]ouldings/resources/getResource/61/14b1a1k5-62c5-9h30-45 Completed 10/11/2019 Visit Diagnosis Plan: Bitten by dog, sequela Discussio n: Still seeing counselor Still doing therapy--left 4th finger still not agile enough to play violin and feels like pinched nerve in neck on right--dscussed stretches, massage, accupuncture---patient had hired business attorney ICD-9 : 906.1 ICD-10 : W54.0XXS 09/20/2019 Visit Diagnosis Plan: Encounter for [facility] adult medical examination without abnormal findings [...] : E78.2 09/20/2019 Appointment: Becki Black WPtel: [address] [place], [place] [id number] Annual Well Visit 09/20/2019 Visit Diagnosis Plan: [...] : Z79.01 09/08/2019 Appointment: Jannette Mayen [address] [place], [place] [phone]UTE [facility] 09/08/2019 Appointment: Becki Black WPtel: [address] [place], [place] [phone] US CANCELED 08/16/2019 Appointment: Becki Black WPtel: [address] [place], [place] [phone] US LAB 07/29/2019 Appointment: Becki Black WPtel: [address] [place], [place] [phone] US LAB 07/18/2019 [facility]ment[facility] [phone] [id number] [facility] 07/06/2019 Visit Diagnosis Plan: Bitten [...] D64.9 06/14/2019 Appointment: [facility]el[facility] [phone] [facility] [facility] FOLLOW UP 06/14/2019 Visit Diagnosis Plan: [...] hydrocodone several days ago. will refer to [facility] as well to discuss concerns. ICD-9 [...] ICD-10 : R53.83 05/13/2019 Appointment: Jannette Mayen [address] [place], [place] [id number] FOLLOW UP 05/13/2019 Patient Education: carvedilol- [employer] Coupon [id number] https://www.WhereverTV/samplemd/resources/getResource/61/21a5x525-0jmy-6021-6x Completed 05/13/2019 Patient Education: Xanax- [employer] Coupon [id number] https://www.WhereverTV/samplemd/resources/getResource/61/7395o5u6-6t01-0s4z-t8 1e-1i34525202o8.pdf Completed 05/13/2019 Appointment: [facility] Black [facility]el[facility] [phone] [id number] [facility] 05/06/2019 Visit Diagnosis Plan: Abrasion [...] will send results to dr. portillo at [facility]. ICD-9 : 719.43 ICD-10 : M25.531 05/02/2019 Appointment: Jannette Mayen [address] ACUTE ILLNESS 05/02/2019 Care Plan: X-RAY EXAM OF WRIST right LOINC : 3 7302-7 Pending 05/02/2019 Appointment: Becki Black WPtel: [address] [place], [place] [phone] US LAB 04/07/2019 Appointment: Becki Black WPtel: [address] [place] [address] BP CHECK 03/22/2019 Visit Diagnosis Plan: Abnormal [...] : I10 03/08/2019 Appointment: Becki Black WPtel: [address] [place], [place] [phone] NEW PATIENT 03/08/2019 Instructions No Instructions Medical Equipment No Medical Equipment data Health Concerns Section Health Concerns data not found Goals Section Goals data not found Interventions Section Interventions data not found Health Status Evaluations/Outcomes Section Health Status Evaluations/Outcomes data not found Advance Directives No Advance Directive data
--- OUTSIDE RECORDS SUMMARY | 2019-11-24 06:51 | XMS REPORT | CCD ---
Author Author Tricia Black D.O. Organization [facility] Address [address] [place] [address] Phone Care Team Providers Care Cargo Vessel Stewardess Name Role Phone PP Unavailable CCM Unavailable Summary Purpose Interface Exchange Insurance Providers Payer name Policy type / Coverage type Covered alliance party ID Effective Begin Date Effective End Date WPS MEDICARE PART B [place] Medicare Part B [id number] Unknown Unknown [facility] Medicare Part B [id number] Unknown Unknown Family history Grandmother Diagnosis Age [...] Unknown Retired 03/08/[address]: 955174481 Has never smoked or chewed tobacco 03/08/[address]: 149853 Currently drinks alcohol 03/08 Has the patient [...] Start Date Stop Date Status Fill Instructions Coumadin 4 mg tablet RxNorm: 888454 1 Tablet(s) Oral Thursday thr thursday11/10/2019 11/10/2019 Inactive losartan 50 mg tablet RxNorm: 201597 2 Tablet(s) Oral QD 11/01/2019 0 04/29/2020 Active potassium chloride ER 10 mEq capsule,extended release RxNorm : 457730 1 Capsule(s) Oral QD 10/26/2019 10/26/2019 Inactive potassium chloride ER 10 mEq tablet,extended release RxNorm: 989190 1 TABLET(S) ORAL QD 10/22/2019 04/18/2020 Active Replaces PA on 1 0MEQ Capsules Aspir-81 mg tablet,delayed release RxNorm: 106989 1 Tablet(s) O ral QD 10/11/2019 No Stop Date Active cyclobenzaprine 5 mg tablet RxNorm: 628889 1 Tablet(s) Oral two times a day as needed for muscle spasm 10/11/2019 No Stop Date Active Coumadin 4 mg tablet RxNorm: 918925 1 Tablet(s) Oral Mo through Thursday and 1/2 tablet (2mg) on Sat/Sun 10/11/2019 11/09/2019 Inactive potassium chloride ER 10 mEq tablet,extended release RxNorm: 445704 1 Tablet(s) Oral QD 09/22/2019 09/21/2019 Inactive Replaces PA on 1 0MEQ Capsules potassium chloride ER 10 mEq tablet,extended release RxNorm: 861760 1 Tablet(s) Oral QD 09/22/2019 10/10/2019 Inactive Replaces PA on 1 0MEQ Capsules potassium chloride ER 10 mEq capsule,extended release RxNorm : 557451 1 Capsule(s) Oral QD 09/21/2019 09/21/2019 Inactive carvedilol 25 mg tablet RxNorm: 624153 1 Tablet(s) Oral two antolin es a day 08/23/2019 11/21/2019 Active isosorbide mononitrate ER 30 mg tablet,extended release 24 h r RxNorm: 890476 TABLET(S) 1 TABLET(S) PO NEEDED 08/22/2019 02/17/2020 Active Patient requests 90 days supply isosorbide mononitrate ER 30 mg tablet,extended release 24 h r RxNorm: 618188 Tablet(s) 1 TABLET(S) PO NEEDED 08/16/2019 08/21/2019 Inactive Patient requests 90 days supply levothyroxine 50 mcg tablet RxNorm: 352816 1 Tablet(s) PO QD 201802/03/2020 Active isosorbide mononitrate ER 30 mg tablet,extended release 24 h r RxNorm: 307071 Tablet(s) 1 TABLET(S) PO NEEDED 06/27/2019 08/15/2019 Inactive Patient requests 90 days supply isosorbide mononitrate ER 30 mg tablet,extended release 24 h r RxNorm: 672744 1 Tablet(s) PO QD as needed 06/27/2019 06/27/2019 Inactive Neris ent requests 90 days supply carvedilol 25 mg tablet RxNorm: 977547 1 TABLET(S) PO BID 06/27/2019 08/22/2019 Inactive furosemide 40 mg tablet RxNorm: 421322 1 Tablet(s) PO QAM 06/21/2019 12/17/2019 Active carvedilol 25 mg tablet RxNorm: 764848 1 Tablet(s) PO BID 05/13/2019 06/26/2019 Inactive Xanax 0.25 mg tablet RxNorm: 019033 1/2 Tablet(s) PO Q6H as needed 05/13/2019 09/07/2019 Inactive levothyroxine 50 mcg tablet RxNorm: 205057 1 Tablet(s) PO QD 201808/07/2019 Inactive losartan 50 mg tablet RxNorm: 742374 1 Tablet(s) PO QD 04/26/2019 Inactive losartan 50 mg tablet RxNorm: 763747 1 Tablet(s) PO QD 04/20/201901/2019 Inactive pravastatin 40 mg tablet RxNorm: 525841 1 Tablet(s) PO QD 04/07/2019 06/05/2019 Inactive isosorbide mononitrate ER 30 mg tablet,extended release 24 h r RxNorm: 368469 1 Tablet(s) PO as needed 04/07/2019 04/06/2019 Inactive isosorbide mononitrate ER 30 mg tablet,extended release 24 h r RxNorm: 280850 1 TABLET(S) PO NEEDED 04/07/2019 06/26/2019 Inactive Patient requests 90 days supply losartan 50 mg tablet RxNorm: 009384 1 Tablet(s) PO QD 03/22/2019 Inactive carvedilol 25 mg tablet RxNorm: 915209 1 Tablet(s) PO BID No Start Date 05/12/2019 Inactive losartan 50 mg tablet RxNorm: 870582 1 Tablet(s) PO QD No Start Date 03/21/2019 Inactive Ventolin HFA 90 mcg/actuation aerosol inhaler RxNorm: 687112 1-2 Puff(s) INH as needed No Start Date 09/07/2019 Inactive furosemide 40 mg tablet RxNorm: 497884 1 Tablet(s) PO QAM No Start Date 06/20/2019 Inactive pravastatin 40 mg tablet RxNorm: 587159 1 Tablet(s) PO QD No Start Date 04/06/2019 Inactive Coumadin 2 mg tablet RxNorm: 839914 1 Tablet(s) PO Mon, Fri, Sat and Sun then 2 tablets (4mg) on , Thu and No Start Date 10/10/2019 Inactive isosorbide mononitrate ER 30 mg tablet,extended release 24 h r RxNorm: 174736 Tablet(s) PO as needed No Start Date [...] ER 10 mEq capsule,extended release RxNorm : 634360 1 Capsule(s) PO QD No Start Date 09/20/2019 Inactive levothyroxine 50 mcg tablet RxNorm: 415469 1 Tablet(s) PO QD No Sta rt Date 04/25/2019 Inactive Medication Administered No Medication Administered data Immunizations Vaccine Codes Date Status Influenza CVX: 135 07/02/2019 Results Observation Observation Code Item Item Code Result Date S ervice Location PT 3501279 PT 31.4 Seconds 10/26/2019 Unknow n PT [id number] INR 2.9 10/26/2019 Unknown PT 5650041 PT 17.6 Seconds 10/11/2019 Unknow n PT 7416690 INR 1.4 10/11/2019 Unknown PT 8320878 PT 23.7 Seconds 09/08/2019 Unknow n PT [id number] INR 2.0 09/08/2019 Unknown PT [id number] PT 23.2 Seconds 07/29/2019 Unknow n PT [id number] INR 2.0 07/29/2019 Unknown PT 2301708 PT 14.3 Seconds 07/18/2019 Unknow n PT 1373932 INR 1.1 07/18/2019 [place] [address] Glucose 75 mg/dL 07/06 [place] [address] CREATININE 0.61 mg/dL [place] [address] BUN 15 mg/dL 07/06 [place] [address] SODIUM 142 mmol/L 06/23 [place] [address] POTASSIUM 4.0 mmol/L 06/23 [place] [address] CHLORIDE 106 mmol/L 06/23 [place] [address] Bicarbonate 28 mmol/[place] [address] AGAP 8 mmol/L 07/06 [place] [address] CALCIUM 9.3 mg/dL 07/06 Unknown PT 1391436 PT 17.4 Seconds 07/06/2019 Unknow n PT 7533961 INR 1.4 07/06/2019 Unknown GFR CALC 0397639 GFR Non Afr Amr >60 mL/min 07/06/2019 Un known GFR CALC 9381271 GFR Afr Amr >60 mL/min 07/06/2019 Unknow n COMPLETE BLOOD COUNT 2863165 WBC 4.7 10e9/L 07/06/20 19 Unknown COMPLETE BLOOD COUNT 5714428 RBC 4.19 10e12/L 2018 Unknown COMPLETE BLOOD COUNT 1128647 HEMOGLOBIN 12.6 g/dL 07/06/20 19 Unknown COMPLETE BLOOD COUNT 5434258 HEMATOCRIT 39.4 % 07/06/20 19 Unknown COMPLETE BLOOD COUNT 1167376 MCV 94.0 fL 9 Unknown COMPLETE BLOOD COUNT 2225532 MCH 30.1 pg 9 Unknown COMPLETE BLOOD COUNT 1273727 MCHC 32.0 g/dL 9 Unknown COMPLETE BLOOD COUNT 6258077 PLATELET COUNT 160 10e9/L Unknown COMPLETE BLOOD COUNT 5742651 Mean Plt Volume 11.0 fL Unknown COMPLETE BLOOD COUNT 0242208 Neut Auto 56.6 % 9 Unknown COMPLETE BLOOD COUNT 7344086 Lymph Auto 27.0 % 07/06/20 19 Unknown COMPLETE BLOOD COUNT 8554349 [place] Auto 13.7 % 9 Unknown COMPLETE BLOOD COUNT 8543323 Eos Auto 2.1 % 9 Unknown COMPLETE BLOOD COUNT 4103614 RDW 14.6 % 9 Unknown COMPLETE BLOOD COUNT 8624599 Baso Auto 0.6 % 9 Unknown COMPLETE BLOOD COUNT 2978916 Neutrophil Abs 2.66 10e9/L Unknown COMPLETE BLOOD COUNT 8936214 Lymphocyte Abs 1.27 10e9/L Unknown COMPLETE BLOOD COUNT 7485625 Monocyte Abs 0.64 10e9/L 06/23 Unknown COMPLETE BLOOD COUNT 9403309 Eosinophil Abs 0.10 10e9/L Unknown COMPLETE BLOOD COUNT 7051347 Basophil Abs 0.03 10e9/L 06/23 Unknown COMPLETE BLOOD COUNT 9881713 RDW-SD 48.7 fL 9 Unknown COMPLETE BLOOD COUNT 2141766 WBC 4.6 10e9/L 06/14/20 19 Unknown COMPLETE BLOOD COUNT 7499546 RBC 4.16 10e12/L 2018 Unknown COMPLETE BLOOD COUNT 9758412 HEMOGLOBIN 12.6 g/dL 06/14/20 19 Unknown COMPLETE BLOOD COUNT [id number] HEMATOCRIT 39.1 % 06/14/20 19 Unknown COMPLETE BLOOD COUNT 9356848 MCV 94.0 fL 9 Unknown COMPLETE BLOOD COUNT 0251563 MCH 30.3 pg 9 Unknown COMPLETE BLOOD COUNT 1818718 MCHC 32.2 g/dL 9 Unknown COMPLETE BLOOD COUNT 0214200 PLATELET COUNT 167 10e9/L Unknown COMPLETE BLOOD COUNT 9363713 Mean Plt Volume 10.9 fL Unknown COMPLETE BLOOD COUNT 9833100 Neut Auto 59.6 % 9 Unknown COMPLETE BLOOD COUNT 6154240 Lymph Auto 24.1 % 06/14/20 19 Unknown COMPLETE BLOOD COUNT 8243910 [place] Auto 14.0 % 9 Unknown COMPLETE BLOOD COUNT 7759577 Eos Auto 1.9 % 9 Unknown COMPLETE BLOOD COUNT 1441572 RDW 14.8 % 9 Unknown COMPLETE BLOOD COUNT 5797858 Baso Auto 0.4 % 9 Unknown COMPLETE BLOOD COUNT 3109233 Neutrophil Abs 2.74 10e9/L Unknown COMPLETE BLOOD COUNT 6375810 Lymphocyte Abs 1.11 10e9/L Unknown COMPLETE BLOOD COUNT 0468673 Monocyte Abs 0.64 10e9/L 05/24 Unknown COMPLETE BLOOD COUNT 4026532 Eosinophil Abs 0.09 10e9/L Unknown COMPLETE BLOOD COUNT 4169041 RDW-SD 49.3 fL 9 Unknown COMPLETE BLOOD COUNT 2629285 Basophil Abs 0.02 10e9/L 05/24 Unknown PT 8990732 PT 22.3 Seconds 06/14/2019 Unknow n PT 9236310 INR 1.9 06/14/2019 Unknown COMPLETE BLOOD COUNT 1947644 WBC 4.0 10e9/L 05/13/20 19 Unknown COMPLETE BLOOD COUNT 0665225 RBC 3.82 10e12/L 2018 Unknown COMPLETE BLOOD COUNT 7708434 HEMOGLOBIN 11.5 g/dL 05/13/20 19 Unknown COMPLETE BLOOD COUNT 4135744 HEMATOCRIT 36.4 % 05/13/20 19 Unknown COMPLETE BLOOD COUNT 4714720 MCV 95.3 fL 9 Unknown COMPLETE BLOOD COUNT 7433807 MCH 30.1 pg 9 Unknown COMPLETE BLOOD COUNT 4844367 MCHC 31.6 g/dL 9 Unknown COMPLETE BLOOD COUNT 6740273 PLATELET COUNT 175 10e9/L Unknown COMPLETE BLOOD COUNT 4053624 Mean Plt Volume 10.5 fL Unknown COMPLETE BLOOD COUNT 2331051 Neut Auto 63.2 % 9 Unknown COMPLETE BLOOD COUNT 0912814 Lymph Auto 22.0 % 05/13/20 19 Unknown COMPLETE BLOOD COUNT 7843221 [place] Auto 12.1 % 9 Unknown COMPLETE BLOOD COUNT 3574067 Eos Auto 2.2 % 9 Unknown COMPLETE BLOOD COUNT 6968349 RDW 14.9 % 9 Unknown COMPLETE BLOOD COUNT 1108867 Baso Auto 0.5 % 9 Unknown COMPLETE BLOOD COUNT 4068319 Neutrophil Abs 2.53 10e9/L Unknown COMPLETE BLOOD COUNT 2884135 Lymphocyte Abs 0.88 10e9/L Unknown COMPLETE BLOOD COUNT 6873744 Monocyte Abs 0.48 10e9/L 04/24 Unknown COMPLETE BLOOD COUNT 1164640 Eosinophil Abs 0.09 10e9/L Unknown COMPLETE BLOOD COUNT 5395409 RDW-SD 49.6 fL 9 Unknown COMPLETE BLOOD COUNT 0742588 Basophil Abs 0.02 10e9/L 04/24 Unknown COMPREHENSIVE METABOLIC 52376 AST 18 U/L 2018 Unknown COMPREHENSIVE METABOLIC 66507 ALT 14 U/L 2018 Unknown COMPREHENSIVE METABOLIC 35801 BUN 15 mg/dL 2018 Unknown COMPREHENSIVE METABOLIC 92587 ALBUMIN 4.0 g/dL 2018 Unknown COMPREHENSIVE METABOLIC 44237 CHLORIDE 108 mmol/L 05/13 Unknown COMPREHENSIVE METABOLIC 74855 Bili Total 0.9 mg/dL 05/13 Unknown COMPREHENSIVE METABOLIC 14475 ALK PHOS 84 U/L 2018 Unknown COMPREHENSIVE METABOLIC 35796 SODIUM 142 mmol/L 05/13 Unknown COMPREHENSIVE METABOLIC 00875 CREATININE 0.72 mg/dL 04/24 Unknown COMPREHENSIVE METABOLIC 11378 CALCIUM 8.9 mg/dL 2018 Unknown COMPREHENSIVE METABOLIC 57875 POTASSIUM 4.0 mmol/L 05/13 Unknown COMPREHENSIVE METABOLIC 27017 Total Protein 5.5 g/dL Unknown COMPREHENSIVE METABOLIC 61136 Glucose 95 mg/dL 2018 Unknown COMPREHENSIVE METABOLIC 32025 Bicarbonate 27 mmol/L 04/24 Unknown COMPREHENSIVE METABOLIC 51755 AGAP 7 mmol/L 2018 Unknown GFR CALC 0703125 GFR Non Afr Amr >60 mL/min 05/13/2019 Un known GFR CALC 4471537 GFR Afr Amr >60 mL/min 05/13/2019 Unknow n THYROID STIMULATING HORMONE 32215 TSH 2.669 uIU/mL 05/13/2019 Unknown FREE T4 78056 T4 Free 1.19 ng/dL 05/13/2019 Unknown PT 7504178 PT 24.2 Seconds 05/06/2019 Unknow n PT 9591748 INR 2.1 05/06/2019 Unknown PT 3947487 PT 24.1 Seconds 03/08/2019 Unknow n PT 2928093 INR 2.9 03/08/2019 Unknown Procedures Procedure Codes Date PROTHROMBIN TIME CPT-4: 29597 10/26/2019 ROUTINE VENIPUNCTURE CPT-4: 80525 10/26/2019 ROUTINE VENIPUNCTURE CPT-4: 76230 10/11/2019 PT CPT-4: 4031410 10/11/2019 PPPS, initial visit CPT-4: G0438 09/20/2019 ROUTINE VENIPUNCTURE CPT-4: 55082 09/08/2019 PT CPT-4: 1097092 09/08/2019 THER/PROPH/DIAG INJ SC/IM CPT-4: 33181 09/08/2019 TRIAMCINOLONE ACET INJ NOS CPT-4: J3301 09/08/2019 ROUTINE VENIPUNCTURE CPT-4: 27692 07/29/2019 PT CPT-4: 5956869 07/29/2019 ROUTINE VENIPUNCTURE CPT-4: 88487 07/18/2019 PT CPT-4: 1574554 07/18/2019 METABOLIC PANEL TOTAL CA CPT-4: 74125 07/06/2019 COMPLETE CBC W/AUTO DIFF WBC CPT-4: 54261 07/06/2019 PROTHROMBIN TIME CPT-4: 41246 07/06/2019 ROUTINE VENIPUNCTURE CPT-4: 29911 06/14/2019 PROTHROMBIN TIME CPT-4: 20599 06/14/2019 COMPLETE CBC W/AUTO DIFF WBC CPT-4: 34431 06/14/2019 ROUTINE VENIPUNCTURE CPT-4: 78402 05/13/2019 COMPREHEN METABOLIC PANEL CPT-4: 04433 05/13/2019 COMPLETE CBC W/AUTO DIFF WBC CPT-4: 87730 05/13/2019 ASSAY THYROID STIM HORMONE CPT-4: 28485 05/13/2019 ASSAY OF FREE THYROXINE CPT-4: 06125 05/13/2019 PT CPT-4: 6844835 05/06/2019 ROUTINE VENIPUNCTURE CPT-4: 04631 05/06/2019 PT CPT-4: 9251760 04/07/2019 ROUTINE VENIPUNCTURE CPT-4: 89456 04/07/2019 ROUTINE VENIPUNCTURE CPT-4: 43937 03/08/2019 PROTHROMBIN TIME CPT-4: 42630 03/08/2019 Vital Signs Date Vital 11/03/2019 Blood [...] 1: 122/68 Code: 8480-6 BMI: 35.0 Code: 12717-2 Heart Rate 1: 72 bpm Height: 5'3" [...] 1: 114/78 Code: 8480-6 BMI: 36.1 Code: 29448-4 Heart Rate 1: 76 bpm Height: 5'3" [...] pressure check 03/22/2019 ~generic 03/08/2019 New Patient[facility] Encounter Performer Location Codes Date ([id number]) OFFICE/OUTPATIENT VISIT EST Diagnosis: Post concussion syndrome[ICD10: F07.81] Diagnosis: Head contusion[ICD10: S00.93XA] Diagnosis: Chronic airway obstruction, not elsewhere classified[ICD10: J44.9] Becki BLACK DO [facility] CPT-4: 58241 11/03/2019 ([id number]) OFFICE/OUTPATIENT VISIT EST Diagnosis: Fall as cause of accidental injury at home as place of occurrence[ICD10: W19.XXXA] Diagnosis: Headache[ICD10: R51] Diagnosis: Essential (primary) hypertension[ICD10: I10] Diagnosis: Long-term (current) use of anticoagulants, INR goal 2.0-3.0[ICD10: Z79.01] Diagnosis: Ecchymosis of left eye[ICD10: S05.12XA] Jannette BLACK DO [facility] CPT-4: 56117 10/31/2019 ([id number]) NURSE/OUTPATIENT VISIT EST Diagnosis: Long-term (current) use of anticoagulants, INR goal 2.0-3.0[ICD10: Z79.01] Becki BLACK [facility] CPT-4: 44792 10/26/2019 ([id number]) OFFICE/OUTPATIENT VISIT EST Diagnosis: Long-term (current) use of anticoagulants, INR goal 2.0-3.0[ICD10: Z79.01] Diagnosis: Pain in right arm[ICD10: M79.601] Diagnosis: Radiculopathy of arm[ICD10: M54.10] Jannette BLACK [facility] CPT-4: 67519 10/11/2019 ([id number]) OFFICE/OUTPATIENT VISIT EST Diagnosis: Long-term (current) use of anticoagulants, INR goal 2.0-3.0[ICD10: Z79.01] Diagnosis: Sinusitis[ICD10: J32.9] Diagnosis: Pain in right arm[ICD10: M79.601] Jannette BLACK [facility] CPT-4: 76825 09/08/2019 ([id number]) NURSE/OUTPATIENT VISIT EST Diagnosis: Chronic atrial fibrillation[ICD10: I48.2] Diagnosis: Encounter for therapeutic drug level monitoring[ICD10: Z51.81] Becki Dykeswilbernela JENNINGSBEKCI Ofe. VARUN [facility] CPT-4: 05335 07/29/2019 ([id number]) NURSE/OUTPATIENT VISIT EST Diagnosis: Chronic atrial fibrillation[ICD10: I48.2] Diagnosis: Encounter for therapeutic drug level monitoring[ICD10: Z51.81] Becki Donisanirudh BECKI David BLACK [facility] CPT-4: 96788 07/18/2019 ([id number]) NURSE/OUTPATIENT VISIT EST Diagnosis: Encounter for therapeutic drug level monitoring[ICD10: Z51.81] Diagnosis: Chronic atrial fibrillation[ICD10: I48.2] Diagnosis: Essential (primary) hypertension[ICD10: I10] Becki BLACK [facility] CPT-4: 53535 07/06/2019 ([id number]) OFFICE/OUTPATIENT VISIT EST Diagnosis: Encounter for therapeutic drug level monitoring[ICD10: Z51.81] Diagnosis: Anemia, unspecified[ICD10: D64.9] Diagnosis: Bitten by dog, sequela[ICD10: W54.0XXS] 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] Becki BLACK [facility] CPT-4: 81089 06/14/2019 ([id number]) OFFICE/OUTPATIENT VISIT EST Diagnosis: Bitten by dog, sequela[ICD10: W54.0XXS] Diagnosis: Other fatigue[ICD10: R53.83] Diagnosis: Hypothyroidism, unspecified[ICD10: E03.9] Diagnosis: Muscle weakness (generalized)[ICD10: M62.81] Diagnosis: Generalized anxiety disorder[ICD10: F41.1] Jannette BLACK [facility] CPT-4: 42928 05/13/2019 ([id number]) NURSE/OUTPATIENT VISIT EST Diagnosis: Encounter for therapeutic drug level monitoring[ICD10: Z51.81] Becki BLACK [facility] CPT-4: 67881 05/06/2019 ([id number]) OFFICE/OUTPATIENT VISIT EST Diagnosis: Bitten by dog, sequela[ICD10: W54.0XXS] Diagnosis: Pain in right wrist[ICD10: M25.531] Diagnosis: Abrasion of right upper arm, sequela[ICD10: S40.811S] Diagnosis: Abrasion of left upper arm, sequela[ICD10: S40.812S] Jannette BLACK [facility] CPT-4: 02528 05/02/2019 ([id number]) NURSE/OUTPATIENT VISIT EST Diagnosis: Encounter for therapeutic drug level monitoring[ICD10: Z51.81] Becki BLACK [facility] CPT-4: 86507 04/07/2019 ([id number]) OFFICE/OUTPATIENT VISIT NEW Diagnosis: Encounter for therapeutic drug level monitoring[ICD10: Z51.81] Diagnosis: Chronic atrial fibrillation[ICD10: I48.2] Diagnosis: Essential (primary) hypertension[ICD10: I10] Diagnosis: Abnormal findings on diagnostic imaging of heart and coronary circulation[ICD10: R93.1] Diagnosis: Other forms of dyspnea[ICD10: R06.09] Diagnosis: Hypothyroidism, unspecified[ICD10: E03.9] Diagnosis: Mixed hyperlipidemia[ICD10: E78.2] Becki MCKEE David [employer] CPT-4: 98575 03/08/2019 Plan of Care Planned Activity Notes [...] J44.9 11/03/2019 Appointment: [facility] [phone] [facility] [facility] 11/03/2019 Care Plan: CT HEAD/BRAIN W/O DYE LOINC : 44807-3 Pending 11/01/2019 Visit Diagnosis Plan: Essential (primary) [...] ICD-10 : S05.12XA 10/31/2019 Appointment: Jannette Mayen [address] [place], [place] [id number] Hospital Follow Up 10/31/2019 Patient Education: High Blood Pressure Co mpleted 10/31/2019 Patient Education: losartan- Opt[employer] Coupon [id number] https://www.[employer]/samplemd/resources/getResource/61/[email or web address] Completed 10/31/2019 Appointment: Becki Black [facility]el[facility] [phone] [facility] FO[facility] 10/26/2019 Visit Diagnosis Plan: Radiculopathy of arm Discussion: flexeril prescribed to take as needed. will start at low dose but instructed patient to call office if not effective and will increase mg dose. PT ordered at [facility] to assist with pain. if no improvement or worsening from PT, will need imaging. ICD-9 : 723.4 ICD-10 : M54.10 10/11/2019 Visit Diagnosis Plan: Long-term (current ) use of anticoagulants, INR goal 2.0-3.0 Discussion: will update pt/inr ICD-9 : V58.61 ICD-10 : Z79.01 10/11/2019 Appointment: Jannette Mayen [address] [place], [place] [id number] ACUTE ILLNESS 10/11/2019 Patient Education: cyclobenzaprine- [employer] Coupon [id number] https://www.[employer]/samplemd/resources/getResource/61/[email or web address] Completed 10/11/2019 Visit Diagnosis Plan: Mixed hyperlipidemia Discussion: Return next week for fasting lipids ICD-9 : 272.4 ICD-10 : E78.2 09/20/2019 Visit Diagnosis Plan: Other forms of dyspnea Discussio n: Check PFT ICD-9 : 786.09 ICD-10 : R06.09 09/20/2019 Visit Diagnosis Plan: Bitten by dog, halley Discussio n: Still seeing counselor Still doing therapy--left 4th finger still not agile enough to play violin and feels like pinched nerve in neck on right--dscussed stretches, massage, accupuncture---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 ICD-9 : 906.1 ICD-10 : W54.0XXS 09/20/2019 Visit Diagnosis Plan: Encounter for [facility] adult medical examination without abnormal findings Discussion: Mediterranean diet Combinati on of cardio and weight bearing exercise Had flu shot Update mammogram ICD-9 : V70.9 ICD-10 : Z00.00 09/20/2019 Appointment: Becki Black WPtel: [address] [place] [address] Annual Well Visit 09/20/2019 Visit Diagnosis Plan: [...] ICD-10 : Z79.01 09/08/2019 Appointment: Jannette Mayen [address] [place] [address] ACUTE ILLNESS 09/08/2019 Appointment: Becki Black WPtel: [address] [place] [address] US CANCELED 08/16/2019 Appointment: Becki Black WPtel: [address] [place], [place] [phone] US LAB 07/29/2019 Appointment: Becki Black WPtel: [address] [place], [place] [phone] US LAB 07/18/2019 Appointment: Becki Black WPtel: [address] [place], [place] [phone] US LAB 07/06/2019 Visit Diagnosis Plan: Encounter [...] : W54.0XXS 06/14/2019 Appointment: Becki Black WPtel: [address] [place] [address] US FOLLOW UP 06/14/2019 Visit Diagnosis Plan: [...] hydrocodone several days ago. will refer to [facility] as well to discuss concerns. ICD-9 : 300.02 ICD-10 : F41.1 05/13/2019 Appointment: Jannette Mayen [address] [place], [place] [id number] FOLLOW UP 05/13/2019 Patient Education: carvedilol- OptimizeRX Coupon [phone] https://www.Guarnic/sampleM[employer]/resources/getResource/61/[email or web address]-1686-0s Completed 05/13/2019 Patient Education: Xanax- Opt[employer] Coupon [id number] https://www.[employer]/sample[employer]/resources/getResource/61/[email or web address]-w1 1e-[email or web address].pdf Completed 05/13/2019 Appointment: Becki Black WPtel: [facility] LAB 05/06/2019 Visit Diagnosis Plan: Pain in right wrist Discussion: xray ordered of wrist to rule out acute fracture. will send results to dr. portillo at [facility]. ICD-9 : 719.43 ICD-10 : M25.531 [...] ICD-10 : S40.811S 05/02/2019 Appointment: Jannette Mayen [address] ACUTE ILLNESS 05/02/2019 Care Plan: X-RAY EXAM OF WRIST right LOINC : 3 7302-7 Pending 05/02/2019 Appointment: Becki Black WPtel: [address] [place] [address] LAB 04/07/2019 Appointment: Becki Black WPtel: [address] [place] [address] US BP CHECK 03/22/2019 Visit Diagnosis Plan: [...] I48.2 03/08/2019 Appointment: [facility] [phone] [facility] NEW PATIENT 03/08/2019 Instructions No Instructions Medical Equipment No Medical Equipment data Health Concerns Section Health Concerns data not found Goals Section Goals data not found Interventions Section Interventions data not found Health Status Evaluations/Outcomes Section Health Status Evaluations/Outcomes data not found Advance Directives No Advance Directive data
--- OUTSIDE RECORDS SUMMARY | 2019-11-24 06:51 | XMS REPORT | CCD ---
Author Author Tricia Black D.O. Organization [facility] Address [address] [place] [address] Phone Care Team Providers Care Latex Dipper Name Role Phone PP Unavailable CCM Unavailable Summary Purpose Interface Exchange Insurance Providers Payer name Policy type / Coverage type Covered constitution party ID Effective Begin Date Effective End Date [employer] MEDICARE PART B [place] Medicare Part B [id number] Unknown Unknown [facility] Medicare Part B [id number] Unknown Unknown Family history Grandmother Diagnosis Age [...] Unknown Retired 03/08/[address]: 753664441 Has never smoked or chewed tobacco 03/08/[address]: 481749 Currently drinks alcohol 03/08 Has the patient [...] Fill Instructions losartan 50 mg tablet RxNorm: 658248 2 Tablet(s) Oral QD 11/01/2019 0 04/29/2020 Active potassium chloride ER 10 mEq capsule,extended release RxNorm : 148972 1 Capsule(s) Oral QD 10/26/2019 10/26/2019 Inactive potassium chloride ER 10 mEq tablet,extended release RxNorm: 179129 1 TABLET(S) ORAL QD 10/22/2019 04/18/2020 Active Replaces PA on 1 0MEQ Capsules Aspir-81 mg tablet,delayed release RxNorm: 244565 1 Tablet(s) O ral QD 10/11/2019 No Stop Date Active cyclobenzaprine 5 mg tablet RxNorm: 618144 1 Tablet(s) Oral two times a day as needed for muscle spasm 10/11/2019 No Stop Date Active Coumadin 4 mg tablet RxNorm: 247093 1 Tablet(s) Oral Mo nd through Thursday and 1/2 tablet (2mg) on Sat/Sun 10/11/2019 No Stop Date Active potassium chloride ER 10 mEq tablet,extended release RxNorm: 738439 1 Tablet(s) Oral QD 09/22/2019 09/21/2019 Inactive Replaces PA on 1 0MEQ Capsules potassium chloride ER 10 mEq tablet,extended release RxNorm: 074598 1 Tablet(s) Oral QD 09/22/2019 10/10/2019 Inactive Replaces PA on 1 0MEQ Capsules potassium chloride ER 10 mEq capsule,extended release RxNorm : 111210 1 Capsule(s) Oral QD 09/21/2019 09/21/2019 Inactive carvedilol 25 mg tablet RxNorm: 158892 1 Tablet(s) Oral two antolin es a day 08/23/2019 11/21/2019 Active isosorbide mononitrate ER 30 mg tablet,extended release 24 h r RxNorm: 936926 TABLET(S) 1 TABLET(S) PO NEEDED 08/22/2019 02/17/2020 Active Patient requests 90 days supply isosorbide mononitrate ER 30 mg tablet,extended release 24 h r RxNorm: 030590 Tablet(s) 1 TABLET(S) PO NEEDED 08/16/2019 08/21/2019 Inactive Patient requests 90 days supply levothyroxine 50 mcg tablet RxNorm: 418420 1 Tablet(s) PO QD 201802/03/2020 Active isosorbide mononitrate ER 30 mg tablet,extended release 24 h r RxNorm: 736957 Tablet(s) 1 TABLET(S) PO NEEDED 06/27/2019 08/15/2019 Inactive Patient requests 90 days supply isosorbide mononitrate ER 30 mg tablet,extended release 24 h r RxNorm: 142356 1 Tablet(s) PO QD as needed 06/27/2019 06/27/2019 Inactive Neris ent requests 90 days supply carvedilol 25 mg tablet RxNorm: 593399 1 TABLET(S) PO BID 06/27/2019 08/22/2019 Inactive furosemide 40 mg tablet RxNorm: 728953 1 Tablet(s) PO QAM 06/21/2019 12/17/2019 Active carvedilol 25 mg tablet RxNorm: 367906 1 Tablet(s) PO BID 05/13/2019 06/26/2019 Inactive Xanax 0.25 mg tablet RxNorm: 420898 1/2 Tablet(s) PO Q6H as needed 05/13/2019 09/07/2019 Inactive levothyroxine 50 mcg tablet RxNorm: 536574 1 Tablet(s) PO QD 201808/07/2019 Inactive losartan 50 mg tablet RxNorm: 459792 1 Tablet(s) PO QD 04/26/2019 Inactive losartan 50 mg tablet RxNorm: 911154 1 Tablet(s) PO QD 04/20/201901/2019 Inactive pravastatin 40 mg tablet RxNorm: 298744 1 Tablet(s) PO QD 04/07/2019 06/05/2019 Inactive isosorbide mononitrate ER 30 mg tablet,extended release 24 h r RxNorm: 321793 1 Tablet(s) PO as needed 04/07/2019 04/06/2019 Inactive isosorbide mononitrate ER 30 mg tablet,extended release 24 h r RxNorm: 457431 1 TABLET(S) PO NEEDED 04/07/2019 06/26/2019 Inactive Patient requests 90 days supply losartan 50 mg tablet RxNorm: 767340 1 Tablet(s) PO QD 03/22/2019 Inactive carvedilol 25 mg tablet RxNorm: 620883 1 Tablet(s) PO BID No Start Date 05/12/2019 Inactive losartan 50 mg tablet RxNorm: 011063 1 Tablet(s) PO QD No Start Date 03/21/2019 Inactive Ventolin HFA 90 mcg/actuation aerosol inhaler RxNorm: 323927 1-2 Puff(s) INH as needed No Start Date 09/07/2019 Inactive furosemide 40 mg tablet RxNorm: 311164 1 Tablet(s) PO QAM No Start Date 06/20/2019 Inactive pravastatin 40 mg tablet RxNorm: 710843 1 Tablet(s) PO QD No Start Date 04/06/2019 Inactive Coumadin 2 mg tablet RxNorm: 441544 1 Tablet(s) PO Mon, Fri, Sat and Sun then 2 tablets (4mg) on , Thu and No Start Date 10/10/2019 Inactive isosorbide mononitrate ER 30 mg tablet,extended release 24 h r RxNorm: 702440 Tablet(s) PO as needed No Start Date [...] ER 10 mEq capsule,extended release RxNorm : 045060 1 Capsule(s) PO QD No Start Date 09/20/2019 Inactive levothyroxine 50 mcg tablet RxNorm: 393614 1 Tablet(s) PO QD No Sta rt Date 04/25/2019 Inactive Medication Administered No Medication Administered data Immunizations Vaccine Codes Date Status Influenza CVX: 135 07/02/2019 Results Observation Observation Code Item Item Code Result Date S ervice Location PT [id number] PT 31.4 Seconds 10/26/2019 Unknow n PT 4560487 INR 2.9 10/26/2019 Unknown PT 8193504 PT 17.6 Seconds 10/11/2019 Unknow n PT 0874762 INR 1.4 10/11/2019 Unknown PT 0116264 PT 23.7 Seconds 09/08/2019 Unknow n PT 5883555 INR 2.0 09/08/2019 Unknown PT 4329497 PT 23.2 Seconds 07/29/2019 Unknow n PT 2863448 INR 2.0 07/29/2019 Unknown PT 2958625 PT 14.3 Seconds 07/18/2019 Unknow n PT [id number] INR 1.1 07/18/2019 [place] [address] Glucose 75 mg/dL 07/06 [place] [address] CREATININE 0.61 mg/dL [place] [address] BUN 15 mg/dL 07/06 [place] [address] SODIUM 142 mmol/L 06/23 [place] [address] POTASSIUM 4.0 mmol/L 06/23 [place] [address] CHLORIDE 106 mmol/L 06/23 [place] [address] Bicarbonate 28 mmol/[place] [address] AGAP 8 mmol/L 07/06 [place] [address] CALCIUM 9.3 mg/dL 07/06 Unknown PT 8331983 PT 17.4 Seconds 07/06/2019 Unknow n PT 2167045 INR 1.4 07/06/2019 Unknown GFR CALC 7712821 GFR Non Afr Amr >60 mL/min 07/06/2019 Un known GFR CALC 5237579 GFR Afr Amr >60 mL/min 07/06/2019 Unknow n COMPLETE BLOOD COUNT 6754402 WBC 4.7 10e9/L 07/06/20 19 Unknown COMPLETE BLOOD COUNT [id number] RBC 4.19 10e12/L 2018 Unknown COMPLETE BLOOD COUNT 0669152 HEMOGLOBIN 12.6 g/dL 07/06/20 19 Unknown COMPLETE BLOOD COUNT 5626185 HEMATOCRIT 39.4 % 07/06/20 19 Unknown COMPLETE BLOOD COUNT 0919140 MCV 94.0 fL 9 Unknown COMPLETE BLOOD COUNT 7621372 MCH 30.1 pg 9 Unknown COMPLETE BLOOD COUNT 0170432 MCHC 32.0 g/dL 9 Unknown COMPLETE BLOOD COUNT 8138782 PLATELET COUNT 160 10e9/L Unknown COMPLETE BLOOD COUNT 5626126 Mean Plt Volume 11.0 fL Unknown COMPLETE BLOOD COUNT 2727403 Neut Auto 56.6 % 9 Unknown COMPLETE BLOOD COUNT 6107965 Lymph Auto 27.0 % 07/06/20 19 Unknown COMPLETE BLOOD COUNT 9718988 [place] Auto 13.7 % 9 Unknown COMPLETE BLOOD COUNT 4677705 RDW 14.6 % 9 Unknown COMPLETE BLOOD COUNT 2558887 Eos Auto 2.1 % 9 Unknown COMPLETE BLOOD COUNT 7779409 Baso Auto 0.6 % 9 Unknown COMPLETE BLOOD COUNT 8019038 Neutrophil Abs 2.66 10e9/L Unknown COMPLETE BLOOD COUNT 2615660 Lymphocyte Abs 1.27 10e9/L Unknown COMPLETE BLOOD COUNT 3724968 Monocyte Abs 0.64 10e9/L 06/23 Unknown COMPLETE BLOOD COUNT 8034376 Eosinophil Abs 0.10 10e9/L Unknown COMPLETE BLOOD COUNT 4520086 RDW-SD 48.7 fL 9 Unknown COMPLETE BLOOD COUNT 7572103 Basophil Abs 0.03 10e9/L 06/23 Unknown COMPLETE BLOOD COUNT 3256436 WBC 4.6 10e9/L 06/14/20 19 Unknown COMPLETE BLOOD COUNT 3759519 RBC 4.16 10e12/L 2018 Unknown COMPLETE BLOOD COUNT 7592365 HEMOGLOBIN 12.6 g/dL 06/14/20 19 Unknown COMPLETE BLOOD COUNT 8691044 HEMATOCRIT 39.1 % 06/14/20 19 Unknown COMPLETE BLOOD COUNT 2174930 MCV 94.0 fL 9 Unknown COMPLETE BLOOD COUNT 6069167 MCH 30.3 pg 9 Unknown COMPLETE BLOOD COUNT 8342308 MCHC 32.2 g/dL 9 Unknown COMPLETE BLOOD COUNT 1343652 PLATELET COUNT 167 10e9/L Unknown COMPLETE BLOOD COUNT 5959123 Mean Plt Volume 10.9 fL Unknown COMPLETE BLOOD COUNT 6558112 Neut Auto 59.6 % 9 Unknown COMPLETE BLOOD COUNT 8923169 Lymph Auto 24.1 % 06/14/20 19 Unknown COMPLETE BLOOD COUNT 5064063 Franklin Auto 14.0 % 9 Unknown COMPLETE BLOOD COUNT 4349152 RDW 14.8 % 9 Unknown COMPLETE BLOOD COUNT 4373684 Eos Auto 1.9 % 9 Unknown COMPLETE BLOOD COUNT 9465976 Baso Auto 0.4 % 9 Unknown COMPLETE BLOOD COUNT 2152544 Neutrophil Abs 2.74 10e9/L Unknown COMPLETE BLOOD COUNT 9671000 Lymphocyte Abs 1.11 10e9/L Unknown COMPLETE BLOOD COUNT 8159518 Monocyte Abs 0.64 10e9/L 05/24 Unknown COMPLETE BLOOD COUNT 9970801 Eosinophil Abs 0.09 10e9/L Unknown COMPLETE BLOOD COUNT 3651201 RDW-SD 49.3 fL 9 Unknown COMPLETE BLOOD COUNT 4715942 Basophil Abs 0.02 10e9/L 05/24 Unknown PT 5349312 PT 22.3 Seconds 06/14/2019 Unknow n PT 7462950 INR 1.9 06/14/2019 Unknown COMPLETE BLOOD COUNT 3488197 WBC 4.0 10e9/L 05/13/20 19 Unknown COMPLETE BLOOD COUNT 2051712 RBC 3.82 10e12/L 2018 Unknown COMPLETE BLOOD COUNT 6521257 HEMOGLOBIN 11.5 g/dL 05/13/20 19 Unknown COMPLETE BLOOD COUNT 1213883 HEMATOCRIT 36.4 % 05/13/20 19 Unknown COMPLETE BLOOD COUNT 9739249 MCV 95.3 fL 9 Unknown COMPLETE BLOOD COUNT 6979542 MCH 30.1 pg 9 Unknown COMPLETE BLOOD COUNT 2494154 MCHC 31.6 g/dL 9 Unknown COMPLETE BLOOD COUNT 6804772 PLATELET COUNT 175 10e9/L Unknown COMPLETE BLOOD COUNT 6078598 Mean Plt Volume 10.5 fL Unknown COMPLETE BLOOD COUNT 6337689 Neut Auto 63.2 % 9 Unknown COMPLETE BLOOD COUNT 2773328 Lymph Auto 22.0 % 05/13/20 19 Unknown COMPLETE BLOOD COUNT 3613926 Franklin Auto 12.1 % 9 Unknown COMPLETE BLOOD COUNT 6318532 RDW 14.9 % 9 Unknown COMPLETE BLOOD COUNT 3256688 Eos Auto 2.2 % 9 Unknown COMPLETE BLOOD COUNT 5881336 Baso Auto 0.5 % 9 Unknown COMPLETE BLOOD COUNT 9849733 Neutrophil Abs 2.53 10e9/L Unknown COMPLETE BLOOD COUNT 5808379 Lymphocyte Abs 0.88 10e9/L Unknown COMPLETE BLOOD COUNT 0744661 Monocyte Abs 0.48 10e9/L 04/24 Unknown COMPLETE BLOOD COUNT 5776019 Eosinophil Abs 0.09 10e9/L Unknown COMPLETE BLOOD COUNT 4875157 RDW-SD 49.6 fL 9 Unknown COMPLETE BLOOD COUNT 2223304 Basophil Abs 0.02 10e9/L 04/24 Unknown COMPREHENSIVE METABOLIC 05830 AST 18 U/L 2018 Unknown COMPREHENSIVE METABOLIC 55443 ALT 14 U/L 2018 Unknown COMPREHENSIVE METABOLIC 33480 BUN 15 mg/dL 2018 Unknown COMPREHENSIVE METABOLIC 33969 ALBUMIN 4.0 g/dL 2018 Unknown COMPREHENSIVE METABOLIC 75382 CHLORIDE 108 mmol/L 05/13 Unknown COMPREHENSIVE METABOLIC 59547 Bili Total 0.9 mg/dL 05/13 Unknown COMPREHENSIVE METABOLIC 68464 ALK PHOS 84 U/L 2018 Unknown COMPREHENSIVE METABOLIC 64011 SODIUM 142 mmol/L 05/13 Unknown COMPREHENSIVE METABOLIC 92070 CREATININE 0.72 mg/dL 04/24 Unknown COMPREHENSIVE METABOLIC 30213 CALCIUM 8.9 mg/dL 2018 Unknown COMPREHENSIVE METABOLIC 93448 POTASSIUM 4.0 mmol/L 05/13 Unknown COMPREHENSIVE METABOLIC 49793 Total Protein 5.5 g/dL Unknown COMPREHENSIVE METABOLIC 41373 Glucose 95 mg/dL 2018 Unknown COMPREHENSIVE METABOLIC 33160 Bicarbonate 27 mmol/L 04/24 Unknown COMPREHENSIVE METABOLIC 22589 AGAP 7 mmol/L 2018 Unknown GFR CALC 8852045 GFR Non Afr Amr >60 mL/min 05/13/2019 Un known GFR CALC 4214530 GFR Afr Amr >60 mL/min 05/13/2019 Unknow n THYROID STIMULATING HORMONE 98936 TSH 2.669 uIU/mL 05/13/2019 Unknown FREE T4 05614 T4 Free 1.19 ng/dL 05/13/2019 Unknown PT 7815672 PT 24.2 Seconds 05/06/2019 Unknow n PT 1020758 INR 2.1 05/06/2019 Unknown PT 5621307 PT 24.1 Seconds 03/08/2019 Unknow n PT 9420374 INR 2.9 03/08/2019 Unknown Procedures Procedure Codes Date PROTHROMBIN TIME CPT-4: 51334 10/26/2019 ROUTINE VENIPUNCTURE CPT-4: 24927 10/26/2019 ROUTINE VENIPUNCTURE CPT-4: 92955 10/11/2019 PT CPT-4: 0663981 10/11/2019 PPPS, initial visit CPT-4: G0438 09/20/2019 ROUTINE VENIPUNCTURE CPT-4: 17179 09/08/2019 PT CPT-4: 4923602 09/08/2019 THER/PROPH/DIAG INJ SC/IM CPT-4: 98218 09/08/2019 TRIAMCINOLONE ACET INJ NOS CPT-4: J3301 09/08/2019 ROUTINE VENIPUNCTURE CPT-4: 62890 07/29/2019 PT CPT-4: 1582498 07/29/2019 ROUTINE VENIPUNCTURE CPT-4: 56487 07/18/2019 PT CPT-4: 4483294 07/18/2019 METABOLIC PANEL TOTAL CA CPT-4: 72491 07/06/2019 COMPLETE CBC W/AUTO DIFF WBC CPT-4: 85091 07/06/2019 PROTHROMBIN TIME CPT-4: 62601 07/06/2019 ROUTINE VENIPUNCTURE CPT-4: 01540 06/14/2019 PROTHROMBIN TIME CPT-4: 43310 06/14/2019 COMPLETE CBC W/AUTO DIFF WBC CPT-4: 34693 06/14/2019 ROUTINE VENIPUNCTURE CPT-4: 36452 05/13/2019 COMPREHEN METABOLIC PANEL CPT-4: 16821 05/13/2019 COMPLETE CBC W/AUTO DIFF WBC CPT-4: 66389 05/13/2019 ASSAY THYROID STIM HORMONE CPT-4: 77401 05/13/2019 ASSAY OF FREE THYROXINE CPT-4: 74731 05/13/2019 PT CPT-4: 6963211 05/06/2019 ROUTINE VENIPUNCTURE CPT-4: 88906 05/06/2019 PT CPT-4: 2983398 04/07/2019 ROUTINE VENIPUNCTURE CPT-4: 40801 04/07/2019 ROUTINE VENIPUNCTURE CPT-4: 30812 03/08/2019 PROTHROMBIN TIME CPT-4: 27408 03/08/2019 Vital Signs Date Vital 11/03/2019 Blood [...] 1: 122/68 Code: 8480-6 BMI: 35.0 Code: 72162-5 Heart Rate 1: 72 bpm Height: 5'3" [...] 1: 114/78 Code: 8480-6 BMI: 36.1 Code: 63138-1 Heart Rate 1: 76 bpm Height: 5'3" [...] visit Encounters Encounter Performer Location Codes Date ([id number]) OFFICE/OUTPATIENT VISIT EST Diagnosis: Post concussion syndrome[ICD10: F07.81] Diagnosis: Head contusion[ICD10: S00.93XA] Diagnosis: Chronic airway obstruction, not elsewhere classified[ICD10: J44.9] Becki [facility]ACK DO [facility] CPT-4: 16049 11/03/2019 ([id number]) OFFICE/OUTPATIENT VISIT EST Diagnosis: Fall as cause of accidental injury at home as place of occurrence[ICD10: W19.XXXA] Diagnosis: Headache[ICD10: R51] Diagnosis: Essential (primary) hypertension[ICD10: I10] Diagnosis: Long-term (current) use of anticoagulants, INR goal 2.0-3.0[ICD10: Z79.01] Diagnosis: Ecchymosis of left eye[ICD10: S05.12XA] Jannette BLACK DO [facility] CPT-4: 91008 10/31/2019 ([id number]) NURSE/OUTPATIENT VISIT EST Diagnosis: Long-term (current) use of anticoagulants, INR goal 2.0-3.0[ICD10: Z79.01] Becki BLACK DO [facility] CPT-4: 62842 10/26/2019 ([id number]) OFFICE/OUTPATIENT VISIT EST Diagnosis: Long-term (current) use of anticoagulants, INR goal 2.0-3.0[ICD10: Z79.01] Diagnosis: Pain in right arm[ICD10: M79.601] Diagnosis: Radiculopathy of arm[ICD10: M54.10] Jannette BLACK [facility] CPT-4: 13087 10/11/2019 ([id number]) OFFICE/OUTPATIENT VISIT EST Diagnosis: Long-term (current) use of anticoagulants, INR goal 2.0-3.0[ICD10: Z79.01] Diagnosis: Sinusitis[ICD10: J32.9] Diagnosis: Pain in right arm[ICD10: M79.601] Jannette BLACK [facility] CPT-4: 99702 09/08/2019 ([id number]) NURSE/OUTPATIENT VISIT EST Diagnosis: Chronic atrial fibrillation[ICD10: I48.2] Diagnosis: Encounter for therapeutic drug level monitoring[ICD10: Z51.81] Becki Donisanirudh [facility] CPT-4: 71648 07/29/2019 ([id number]) NURSE/OUTPATIENT VISIT EST Diagnosis: Chronic atrial fibrillation[ICD10: I48.2] Diagnosis: Encounter for therapeutic drug level monitoring[ICD10: Z51.81] Becki Donisanirudh [facility] CPT-4: 58867 07/18/2019 ([id number]) NURSE/OUTPATIENT VISIT EST Diagnosis: Encounter for therapeutic drug level monitoring[ICD10: Z51.81] Diagnosis: Chronic atrial fibrillation[ICD10: I48.2] Diagnosis: Essential (primary) hypertension[ICD10: I10] Becki BLACK DO 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 CPT-4: 09626 06/14/2019 ([id number]) OFFICE/OUTPATIENT VISIT EST Diagnosis: Bitten by dog, sequela[ICD10: W54.0XXS] Diagnosis: Other fatigue[ICD10: R53.83] Diagnosis: Hypothyroidism, unspecified[ICD10: E03.9] Diagnosis: Muscle weakness (generalized)[ICD10: M62.81] Diagnosis: Generalized anxiety disorder[ICD10: F41.1] Jannette BLACK DO [facility] CPT-4: 76485 05/13/2019 ([id number]) NURSE/OUTPATIENT VISIT EST Diagnosis: Encounter for therapeutic drug level monitoring[ICD10: Z51.81] Becki BLACK [facility] CPT-4: 66916 05/06/2019 ([id number]) OFFICE/OUTPATIENT VISIT EST Diagnosis: Bitten by dog, sequela[ICD10: W54.0XXS] Diagnosis: Pain in right wrist[ICD10: M25.531] Diagnosis: Abrasion of right upper arm, sequela[ICD10: S40.811S] Diagnosis: Abrasion of left upper arm, sequela[ICD10: S40.812S] Jannette BLACK DO [facility] CPT-4: 95265 05/02/2019 ([id number]) NURSE/OUTPATIENT VISIT EST Diagnosis: Encounter for therapeutic drug level monitoring[ICD10: Z51.81] Becki BLACK DO [facility] CPT-4: 17334 04/07/2019 ([id number]) OFFICE/OUTPATIENT VISIT NEW Diagnosis: Encounter for therapeutic drug level monitoring[ICD10: Z51.81] Diagnosis: Chronic atrial fibrillation[ICD10: I48.2] Diagnosis: Essential (primary) hypertension[ICD10: I10] Diagnosis: Abnormal findings on diagnostic imaging of heart and coronary circulation[ICD10: R93.1] Diagnosis: Other forms of dyspnea[ICD10: R06.09] Diagnosis: Hypothyroidism, unspecified[ICD10: E03.9] Diagnosis: Mixed hyperlipidemia[ICD10: E78.2] Becki BLACK DO [facility] CPT-4: 68940 03/08/2019 Plan of Care Planned Activity Notes Codes Status Date Visit Diagnosis Plan: Chronic airway obstruction, not elsewhere classified Discussion: Scheduled to go for pulmonary rehab eval next week so can go if feeling better from concussion standpoint and then will fwup 6 weeks after starts ICD-9 : 496 ICD-10 : J44.9 11/03/2019 Visit Diagnosis Plan: Post concussion syndrome Discuss ion: Discussed normal progression of slowly improving and to focus on enough sleep/drinking water/limiting screen time, etc. ICD-9 : 310.2 ICD-10 : F07.81 11/03/2019 Care Plan: CT HEAD/BRAIN W/O DYE LOINC : 32012-6 Pending 11/01/2019 Visit Diagnosis Plan: Essential (primary) [...] ICD-10 : S05.12XA 10/31/2019 Appointment: Jannette Mayen [address] [place], [place] [id number] Hospital Follow Up 10/31/2019 Patient Education: High Blood Pressure Co mpleted 10/31/2019 Patient Education: losartan- [employer] Coupon [id number] https://www.[employer]/sampleNetnui.com/resources/getResource/61/[email or web address] Completed 10/31/2019 Appointment: Becki Black WPtel: [phone] [id number] FOLLOW UP 10/26/2019 Visit Diagnosis Plan: Radiculopathy of arm Discussion: flexeril prescribed to take as needed. will start at low dose but instructed patient to call office if not effective and will increase mg dose. PT ordered at [facility] to assist with pain. if no improvement or worsening from PT, will need imaging. ICD-9 : 723.4 ICD-10 : M54.10 10/11/2019 Visit Diagnosis Plan: Long-term (current ) use of anticoagulants, INR goal 2.0-3.0 Discussion: will update pt/inr ICD-9 : V58.61 ICD-10 : Z79.01 10/11/2019 Appointment: Jannette Mayen [address] [place], [place] [address] ACUTE ILLNESS 10/11/2019 Patient Education: cyclobenzaprine- [employer] Coupon [id number] https://www.[employer]/sampleNetnui.com/resources/getResource/61/[email or web address] Completed 10/11/2019 Visit Diagnosis Plan: Mixed hyperlipidemia [...] on right--dscussed stretches, massage, accupuncture---patient had hired compliance attorney ICD-9 : 906.1 ICD-10 : W54.0XXS 09/20/2019 Visit Diagnosis Plan: Encounter for [facility] adult medical examination without abnormal findings Discussion: Mediterranean diet Combinati on of cardio and weight bearing exercise Had flu shot Update mammogram ICD-9 : V70.9 ICD-10 : Z00.00 09/20/2019 Appointment: Bekci Black WPtel: [address] [place], [place] [phone] Annual Well Visit 09/20/2019 Visit Diagnosis Plan: [...] ICD-10 : Z79.01 09/08/2019 Appointment: Jannette Mayen [address] [place], [place] [id number] AC[facility] ILLNESS 09/08/2019 Appointment: Becki Black WPtel: [address] [place], [place] [phone] US CANCELED 08/16/2019 Appointment: Becki Black WPtel: [address] [place], [place] [phone] US LAB 07/29/2019 Appointment: Becki Black WPtel: [address] [place], [place] [phone] US LAB 07/18/2019 Appointment: [facility] [address] [facility] [facility] 07/06/2019 Visit Diagnosis Plan: Encounter [...] Visit Diagnosis Plan: Bitten by dog, sequela Germánio n: Is seeing counselor which is helping Has started PT for left wrist ICD-9 : 906.1 ICD-10 : W54.0XXS 06/14/2019 Appointment: Becki Black [facility] [phone] [facility] [facility] FOLLOW UP 06/14/2019 Visit Diagnosis Plan: [...] hydrocodone several days ago. will refer to [facility] as well to discuss concerns. ICD-9 : 300.02 ICD-10 : F41.1 05/13/2019 Appointment: [facility] [address] [facility] [facility] 05/13/2019 Patient Education: carvedilol- [employer] Coupon [phone] https://www.[employer]/samplemd/resources/getResource/61/49b8w405-8wbu-2975-3v Completed 05/13/2019 Patient Education: Xanax- [employer] Coupon [id number] https://www.[employer]/sampleNetnui.com/resources/getResource/61/[email or web address]-n9 1e-[email or web address].pdf Completed 05/13/2019 Appointment: Becki Black [facility] [address] [facility] [facility] 05/06/2019 Visit Diagnosis Plan: Pain in right wrist Discussion: xray ordered of wrist to rule out acute fracture. will send results to dr. portillo at [facility]. ICD-9 : 719.43 ICD-10 : M25.531 [...] : S40.811S 05/02/2019 Appointment: Jannette Mayen [address] ACUTE ILLNESS 05/02/2019 Care Plan: X-RAY EXAM OF WRIST right LOINC : 3 7302-7 Pending 05/02/2019 Appointment: Becki Black WPtel: [address] [place], [place] [phone] US LAB 04/07/2019 Appointment: Becki Black WPtel: [address] [place] [address] BP CHECK 03/22/2019 Visit Diagnosis Plan: Abnormal [...] : I48.2 03/08/2019 Appointment: Becki Black WPtel: [address] [place], [place] [phone] NEW PATIENT 03/08/2019 Instructions No Instructions Medical Equipment No Medical Equipment data Health Concerns Section Health Concerns data not found Goals Section Goals data not found Interventions Section Interventions data not found Health Status Evaluations/Outcomes Section Health Status Evaluations/Outcomes data not found Advance Directives No Advance Directive data
--- OUTSIDE RECORDS SUMMARY | 2019-11-24 06:52 | XMS REPORT | CCD ---
Author Author Tricia Black D.O. 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 Name Role Phone PP Unavailable CCM Unavailable Summary Purpose Interface Exchange Insurance Providers Payer name Policy type / Coverage type Covered republican ID Effective Begin Date Effective End Date WPS MEDICARE PART B [place] Medicare Part B [id number] Unknown Unknown [facility] Medicare Part B [id number] Unknown Unknown Family history Grandmother Diagnosis Age [...] Unknown Retired 03/08/[address]: 701040679 Has never smoked or chewed tobacco 03/08/[address]: 212766 Currently drinks alcohol 03/08 Has the patient [...] Problems Condition Codes Effective Dates Condition Status Ecchymosis of left eye ICD-9: 921.0 ICD-10: [...] Fill Instructions losartan 50 mg tablet RxNorm: 882762 2 Tablet(s) Oral QD 11/01/2019 0 04/29/2020 Active potassium chloride ER 10 mEq capsule,extended release RxNorm : 446392 1 Capsule(s) Oral QD 10/26/2019 10/26/2019 Inactive potassium chloride ER 10 mEq tablet,extended release RxNorm: 936368 1 TABLET(S) ORAL QD 10/22/2019 04/18/2020 Active Replaces PA on 1 0MEQ Capsules Aspir-81 mg tablet,delayed release RxNorm: 775192 1 Tablet(s) O ral QD 10/11/2019 No Stop Date Active cyclobenzaprine 5 mg tablet RxNorm: 090311 1 Tablet(s) Oral two times a day as needed for muscle spasm 10/11/2019 No Stop Date Active Coumadin 4 mg tablet RxNorm: 324957 1 Tablet(s) Oral Mo through Thursday and 1/2 tablet (2mg) on Sat/Sun 10/11/2019 No Stop Date Active potassium chloride ER 10 mEq tablet,extended release RxNorm: 886810 1 Tablet(s) Oral QD 09/22/2019 09/21/2019 Inactive Replaces PA on 1 0MEQ Capsules potassium chloride ER 10 mEq tablet,extended release RxNorm: 456898 1 Tablet(s) Oral QD 09/22/2019 10/10/2019 Inactive Replaces PA on 1 0MEQ Capsules potassium chloride ER 10 mEq capsule,extended release RxNorm : 641640 1 Capsule(s) Oral QD 09/21/2019 09/21/2019 Inactive carvedilol 25 mg tablet RxNorm: 390434 1 Tablet(s) Oral two antolin es a day 08/23/2019 11/21/2019 Active isosorbide mononitrate ER 30 mg tablet,extended release 24 h r RxNorm: 716664 TABLET(S) 1 TABLET(S) PO NEEDED 08/22/2019 02/17/2020 Active Patient requests 90 days supply isosorbide mononitrate ER 30 mg tablet,extended release 24 h r RxNorm: 953401 Tablet(s) 1 TABLET(S) PO NEEDED 08/16/2019 08/21/2019 Inactive Patient requests 90 days supply levothyroxine 50 mcg tablet RxNorm: 941718 1 Tablet(s) PO QD 201802/03/2020 Active isosorbide mononitrate ER 30 mg tablet,extended release 24 h r RxNorm: 841899 Tablet(s) 1 TABLET(S) PO NEEDED 06/27/2019 08/15/2019 Inactive Patient requests 90 days supply isosorbide mononitrate ER 30 mg tablet,extended release 24 h r RxNorm: 257580 1 Tablet(s) PO QD as needed 06/27/2019 06/27/2019 Inactive Neris ent requests 90 days supply carvedilol 25 mg tablet RxNorm: 460272 1 TABLET(S) PO BID 06/27/2019 08/22/2019 Inactive furosemide 40 mg tablet RxNorm: 165971 1 Tablet(s) PO QAM 06/21/2019 12/17/2019 Active carvedilol 25 mg tablet RxNorm: 324857 1 Tablet(s) PO BID 05/13/2019 06/26/2019 Inactive Xanax 0.25 mg tablet RxNorm: 139830 1/2 Tablet(s) PO Q6H as needed 05/13/2019 09/07/2019 Inactive levothyroxine 50 mcg tablet RxNorm: 811360 1 Tablet(s) PO QD 201808/07/2019 Inactive losartan 50 mg tablet RxNorm: 508227 1 Tablet(s) PO QD 04/26/2019 Inactive losartan 50 mg tablet RxNorm: 366109 1 Tablet(s) PO QD 04/20/201901/2019 Inactive pravastatin 40 mg tablet RxNorm: 636767 1 Tablet(s) PO QD 04/07/2019 06/05/2019 Inactive isosorbide mononitrate ER 30 mg tablet,extended release 24 h r RxNorm: 754268 1 Tablet(s) PO as needed 04/07/2019 04/06/2019 Inactive isosorbide mononitrate ER 30 mg tablet,extended release 24 h r RxNorm: 214254 1 TABLET(S) PO NEEDED 04/07/2019 06/26/2019 Inactive Patient requests 90 days supply losartan 50 mg tablet RxNorm: 422784 1 Tablet(s) PO QD 03/22/2019 Inactive carvedilol 25 mg tablet RxNorm: 927119 1 Tablet(s) PO BID No Start Date 05/12/2019 Inactive losartan 50 mg tablet RxNorm: 210610 1 Tablet(s) PO QD No Start Date 03/21/2019 Inactive Ventolin HFA 90 mcg/actuation aerosol inhaler RxNorm: 923875 1-2 Puff(s) INH as needed No Start Date 09/07/2019 Inactive furosemide 40 mg tablet RxNorm: 100534 1 Tablet(s) PO QAM No Start Date 06/20/2019 Inactive pravastatin 40 mg tablet RxNorm: 784822 1 Tablet(s) PO QD No Start Date 04/06/2019 Inactive Coumadin 2 mg tablet RxNorm: 814808 1 Tablet(s) PO Mon, Fri, Sat and Sun then 2 tablets (4mg) on , Thu and No Start Date 10/10/2019 Inactive isosorbide mononitrate ER 30 mg tablet,extended release 24 h r RxNorm: 425652 Tablet(s) PO as needed No Start Date [...] ER 10 mEq capsule,extended release RxNorm : 467682 1 Capsule(s) PO QD No Start Date 09/20/2019 Inactive levothyroxine 50 mcg tablet RxNorm: 130545 1 Tablet(s) PO QD No Sta rt Date 04/25/2019 Inactive Medication Administered No Medication Administered data Immunizations Vaccine Codes Date Status Influenza CVX: 135 07/02/2019 Results Observation Observation Code Item Item Code Result Date S ervice Location PT 7403092 PT 31.4 Seconds 10/26/2019 Unknow n PT 0459012 INR 2.9 10/26/2019 Unknown PT 7138123 PT 17.6 Seconds 10/11/2019 Unknow n PT 5875637 INR 1.4 10/11/2019 Unknown PT 1683768 PT 23.7 Seconds 09/08/2019 Unknow n PT 3582375 INR 2.0 09/08/2019 Unknown PT [id number] PT 23.2 Seconds 07/29/2019 Unknow n PT [id number] INR 2.0 07/29/2019 Unknown PT 7687665 PT 14.3 Seconds 07/18/2019 Unknow n PT 1576937 INR 1.1 07/18/2019 [place] [address] Glucose 75 mg/dL 07/06 [place] [address] CREATININE 0.61 mg/dL [place] [address] BUN 15 mg/dL 07/06 [place] [address] SODIUM 142 mmol/L 06/23 [place] [address] POTASSIUM 4.0 mmol/L 06/23 [place] [address] CHLORIDE 106 mmol/L 06/23 [place] [address] Bicarbonate 28 mmol/[place] [address] AGAP 8 mmol/L 07/06 [place] [address] CALCIUM 9.3 mg/dL 07/06 Unknown PT 0074930 PT 17.4 Seconds 07/06/2019 Unknow n PT [id number] INR 1.4 07/06/2019 Unknown GFR CALC 9198886 GFR Non Afr Amr >60 mL/min 07/06/2019 Un known GFR CALC 6535151 GFR Afr Amr >60 mL/min 07/06/2019 Unknow n COMPLETE BLOOD COUNT [id number] WBC 4.7 10e9/L 07/06/20 19 Unknown COMPLETE BLOOD COUNT 3510732 RBC 4.19 10e12/L 2018 Unknown COMPLETE BLOOD COUNT 1911330 HEMOGLOBIN 12.6 g/dL 07/06/20 19 Unknown COMPLETE BLOOD COUNT 3722838 HEMATOCRIT 39.4 % 07/06/20 19 Unknown COMPLETE BLOOD COUNT 9709280 MCV 94.0 fL 9 Unknown COMPLETE BLOOD COUNT 2645171 MCH 30.1 pg 9 Unknown COMPLETE BLOOD COUNT 9252753 MCHC 32.0 g/dL 9 Unknown COMPLETE BLOOD COUNT 6994826 PLATELET COUNT 160 10e9/L Unknown COMPLETE BLOOD COUNT 5641821 Mean Plt Volume 11.0 fL Unknown COMPLETE BLOOD COUNT 5753365 Neut Auto 56.6 % 9 Unknown COMPLETE BLOOD COUNT 8790222 Lymph Auto 27.0 % 07/06/20 19 Unknown COMPLETE BLOOD COUNT 4901026 Charles Mix Auto 13.7 % 9 Unknown COMPLETE BLOOD COUNT 4871856 RDW 14.6 % 9 Unknown COMPLETE BLOOD COUNT 0596513 Eos Auto 2.1 % 9 Unknown COMPLETE BLOOD COUNT 6404697 Baso Auto 0.6 % 9 Unknown COMPLETE BLOOD COUNT 8922917 Neutrophil Abs 2.66 10e9/L Unknown COMPLETE BLOOD COUNT 2195214 Lymphocyte Abs 1.27 10e9/L Unknown COMPLETE BLOOD COUNT 5684625 Monocyte Abs 0.64 10e9/L 06/23 Unknown COMPLETE BLOOD COUNT 6054485 Eosinophil Abs 0.10 10e9/L Unknown COMPLETE BLOOD COUNT 5233049 RDW-SD 48.7 fL 9 Unknown COMPLETE BLOOD COUNT 0650718 Basophil Abs 0.03 10e9/L 06/23 Unknown COMPLETE BLOOD COUNT 0784495 WBC 4.6 10e9/L 06/14/20 19 Unknown COMPLETE BLOOD COUNT 2521231 RBC 4.16 10e12/L 2018 Unknown COMPLETE BLOOD COUNT 3566531 HEMOGLOBIN 12.6 g/dL 06/14/20 19 Unknown COMPLETE BLOOD COUNT 7921543 HEMATOCRIT 39.1 % 06/14/20 19 Unknown COMPLETE BLOOD COUNT 7882215 MCV 94.0 fL 9 Unknown COMPLETE BLOOD COUNT 4219064 MCH 30.3 pg 9 Unknown COMPLETE BLOOD COUNT 3079559 MCHC 32.2 g/dL 9 Unknown COMPLETE BLOOD COUNT 9281831 PLATELET COUNT 167 10e9/L Unknown COMPLETE BLOOD COUNT 4892711 Mean Plt Volume 10.9 fL Unknown COMPLETE BLOOD COUNT 7874880 Neut Auto 59.6 % 9 Unknown COMPLETE BLOOD COUNT 2049311 Lymph Auto 24.1 % 06/14/20 19 Unknown COMPLETE BLOOD COUNT 4237761 Charles Mix Auto 14.0 % 9 Unknown COMPLETE BLOOD COUNT 6706810 RDW 14.8 % 9 Unknown COMPLETE BLOOD COUNT 7385291 Eos Auto 1.9 % 9 Unknown COMPLETE BLOOD COUNT 4256216 Baso Auto 0.4 % 9 Unknown COMPLETE BLOOD COUNT 5785183 Neutrophil Abs 2.74 10e9/L Unknown COMPLETE BLOOD COUNT 8105697 Lymphocyte Abs 1.11 10e9/L Unknown COMPLETE BLOOD COUNT 6720777 Monocyte Abs 0.64 10e9/L 05/24 Unknown COMPLETE BLOOD COUNT 8339336 Eosinophil Abs 0.09 10e9/L Unknown COMPLETE BLOOD COUNT 5639075 RDW-SD 49.3 fL 9 Unknown COMPLETE BLOOD COUNT 3921105 Basophil Abs 0.02 10e9/L 05/24 Unknown PT 5298029 PT 22.3 Seconds 06/14/2019 Unknow n PT 5163948 INR 1.9 06/14/2019 Unknown COMPLETE BLOOD COUNT 9539663 WBC 4.0 10e9/L 05/13/20 19 Unknown COMPLETE BLOOD COUNT 6461111 RBC 3.82 10e12/L 2018 Unknown COMPLETE BLOOD COUNT 7977816 HEMOGLOBIN 11.5 g/dL 05/13/20 19 Unknown COMPLETE BLOOD COUNT 2938450 HEMATOCRIT 36.4 % 05/13/20 19 Unknown COMPLETE BLOOD COUNT 6335370 MCV 95.3 fL 9 Unknown COMPLETE BLOOD COUNT 2919000 MCH 30.1 pg 9 Unknown COMPLETE BLOOD COUNT 2022437 MCHC 31.6 g/dL 9 Unknown COMPLETE BLOOD COUNT 0720739 PLATELET COUNT 175 10e9/L Unknown COMPLETE BLOOD COUNT 8886630 Mean Plt Volume 10.5 fL Unknown COMPLETE BLOOD COUNT 4058050 Neut Auto 63.2 % 9 Unknown COMPLETE BLOOD COUNT 0590253 Lymph Auto 22.0 % 05/13/20 19 Unknown COMPLETE BLOOD COUNT 0706781 Charles Mix Auto 12.1 % 9 Unknown COMPLETE BLOOD COUNT 7357617 RDW 14.9 % 9 Unknown COMPLETE BLOOD COUNT 7038482 Eos Auto 2.2 % 9 Unknown COMPLETE BLOOD COUNT 7326125 Baso Auto 0.5 % 9 Unknown COMPLETE BLOOD COUNT 0873495 Neutrophil Abs 2.53 10e9/L Unknown COMPLETE BLOOD COUNT 7652011 Lymphocyte Abs 0.88 10e9/L Unknown COMPLETE BLOOD COUNT 7770219 Monocyte Abs 0.48 10e9/L 04/24 Unknown COMPLETE BLOOD COUNT 3402011 Eosinophil Abs 0.09 10e9/L Unknown COMPLETE BLOOD COUNT 0521210 RDW-SD 49.6 fL 9 Unknown COMPLETE BLOOD COUNT 8694984 Basophil Abs 0.02 10e9/L 04/24 Unknown COMPREHENSIVE METABOLIC 86047 AST 18 U/L 2018 Unknown COMPREHENSIVE METABOLIC 87261 ALT 14 U/L 2018 Unknown COMPREHENSIVE METABOLIC 80683 BUN 15 mg/dL 2018 Unknown COMPREHENSIVE METABOLIC 71331 ALBUMIN 4.0 g/dL 2018 Unknown COMPREHENSIVE METABOLIC 39265 CHLORIDE 108 mmol/L 05/13 Unknown COMPREHENSIVE METABOLIC 57230 Bili Total 0.9 mg/dL 05/13 Unknown COMPREHENSIVE METABOLIC 79621 ALK PHOS 84 U/L 2018 Unknown COMPREHENSIVE METABOLIC 01363 SODIUM 142 mmol/L 05/13 Unknown COMPREHENSIVE METABOLIC 57519 CREATININE 0.72 mg/dL 04/24 Unknown COMPREHENSIVE METABOLIC 62673 CALCIUM 8.9 mg/dL 2018 Unknown COMPREHENSIVE METABOLIC 02661 POTASSIUM 4.0 mmol/L 05/13 Unknown COMPREHENSIVE METABOLIC 65631 Total Protein 5.5 g/dL Unknown COMPREHENSIVE METABOLIC 11821 Glucose 95 mg/dL 2018 Unknown COMPREHENSIVE METABOLIC 36600 Bicarbonate 27 mmol/L 04/24 Unknown COMPREHENSIVE METABOLIC 53575 AGAP 7 mmol/L 2018 Unknown GFR CALC 5514285 GFR Non Afr Amr >60 mL/min 05/13/2019 Un known GFR CALC 3804444 GFR Afr Amr >60 mL/min 05/13/2019 Unknow n THYROID STIMULATING HORMONE 73586 TSH 2.669 uIU/mL 05/13/2019 Unknown FREE T4 87209 T4 Free 1.19 ng/dL 05/13/2019 Unknown PT 6488293 PT 24.2 Seconds 05/06/2019 Unknow n PT 4730765 INR 2.1 05/06/2019 Unknown PT 4907987 PT 24.1 Seconds 03/08/2019 Unknow n PT 9645380 INR 2.9 03/08/2019 Unknown Procedures Procedure Codes Date PROTHROMBIN TIME CPT-4: 20864 10/26/2019 ROUTINE VENIPUNCTURE CPT-4: 33736 10/26/2019 ROUTINE VENIPUNCTURE CPT-4: 07214 10/11/2019 PT CPT-4: 7942145 10/11/2019 PPPS, initial visit CPT-4: G0438 09/20/2019 ROUTINE VENIPUNCTURE CPT-4: 67545 09/08/2019 PT CPT-4: 7116071 09/08/2019 THER/PROPH/DIAG INJ SC/IM CPT-4: 40781 09/08/2019 TRIAMCINOLONE ACET INJ NOS CPT-4: J3301 09/08/2019 ROUTINE VENIPUNCTURE CPT-4: 22765 07/29/2019 PT CPT-4: 2457734 07/29/2019 ROUTINE VENIPUNCTURE CPT-4: 54727 07/18/2019 PT CPT-4: 3834050 07/18/2019 METABOLIC PANEL TOTAL CA CPT-4: 74496 07/06/2019 COMPLETE CBC W/AUTO DIFF WBC CPT-4: 82567 07/06/2019 PROTHROMBIN TIME CPT-4: 55631 07/06/2019 ROUTINE VENIPUNCTURE CPT-4: 92506 06/14/2019 PROTHROMBIN TIME CPT-4: 92403 06/14/2019 COMPLETE CBC W/AUTO DIFF WBC CPT-4: 45918 06/14/2019 ROUTINE VENIPUNCTURE CPT-4: 12538 05/13/2019 COMPREHEN METABOLIC PANEL CPT-4: 70896 05/13/2019 COMPLETE CBC W/AUTO DIFF WBC CPT-4: 76268 05/13/2019 ASSAY THYROID STIM HORMONE CPT-4: 43934 05/13/2019 ASSAY OF FREE THYROXINE CPT-4: 99452 05/13/2019 PT CPT-4: 8421743 05/06/2019 ROUTINE VENIPUNCTURE CPT-4: 74495 05/06/2019 PT CPT-4: 7176970 04/07/2019 ROUTINE VENIPUNCTURE CPT-4: 61197 04/07/2019 ROUTINE VENIPUNCTURE CPT-4: 65387 03/08/2019 PROTHROMBIN TIME CPT-4: 00594 03/08/2019 Vital Signs Date Vital 10/31/2019 Blood Pressure 1: 170/100 Code: 8480-6 Heart Rat e 1: 70 bpm Respiratory Rate: 18 bpm 10/11/2019 Blood Pressure 1: 132/78 Code: 8480-6 Heart Rate 1: 89 bpm SpO2: 99% Temperature: 36.7 (C) / 98.1 (F) Weight: 204 lbs 09/20/2019 Blood Pressure 1: 122/68 Code: 8480-6 BMI: 35.0 Code: 21558-5 Heart Rate 1: 72 bpm Height: 5'3" [...] 1: 114/78 Code: 8480-6 BMI: 36.1 Code: 36808-7 Heart Rate 1: 76 bpm Height: 5'3" Respiratory Rate: 20 bpm SpO2: 97% Tempera ture: 37.1 (C) / 98.8 (F) Weight: 207 lbs Functional Status No Functional Status data Reason For Visit Reason For Visit Effective Dates Notes headache 10/31/2019 lab draw 10/26/2019 back pain 10/11/2019 well woman exam (65+ years) 09/20/2019 Annual Welln ess sinus congestion 09/08/2019 lab draw 07/29/2019 lab draw 07/18/2019 lab draw 07/06/2019 follow up 06/14/2019 follow up 05/13/2019 lab draw 05/06/2019 follow up 05/02/2019 for wound check lab draw 04/07/2019 blood pressure check 03/22/2019 ~generic 03/08/2019 New Patient---joshua sewell visit Encounters Encounter Performer Location Codes Date (06899) OFFICE/OUTPATIENT VISIT EST Diagnosis: Fall as cause of accidental injury at home as place of occurrence[ICD10: W19.XXXA] Diagnosis: Headache[ICD10: R51] Diagnosis: Essential (primary) hypertension[ICD10: I10] Diagnosis: Long-term (current) use of anticoagulants, INR goal 2.0-3.0[ICD10: Z79.01] Diagnosis: Ecchymosis of left eye[ICD10: S05.12XA] Jannette GUERRA [employer] CPT-4: 58988 10/31/2019 ([id number]) NURSE/OUTPATIENT VISIT EST Diagnosis: Long-term (current) use of anticoagulants, INR goal 2.0-3.0[ICD10: Z79.01] Becki Hernandez [employer] CPT-4: 76170 10/26/2019 ([id number]) OFFICE/OUTPATIENT VISIT EST Diagnosis: Long-term (current) use of anticoagulants, INR goal 2.0-3.0[ICD10: Z79.01] Diagnosis: Pain in right arm[ICD10: M79.601] Diagnosis: Radiculopathy of arm[ICD10: M54.10] Jannette HAMILTON [employer] CPT-4: 31359 10/11/2019 ([id number]) OFFICE/OUTPATIENT VISIT EST Diagnosis: Long-term (current) use of anticoagulants, INR goal 2.0-3.0[ICD10: Z79.01] Diagnosis: Sinusitis[ICD10: J32.9] Diagnosis: Pain in right arm[ICD10: M79.601] Jannette BLACK [employer] CPT-4: 03021 09/08/2019 ([id number]) NURSE/OUTPATIENT VISIT EST Diagnosis: Chronic atrial fibrillation[ICD10: I48.2] Diagnosis: Encounter for therapeutic drug level monitoring[ICD10: Z51.81] Becki BLACK [employer] CPT-4: 37921 07/29/2019 ([id number]) NURSE/OUTPATIENT VISIT EST Diagnosis: Chronic atrial fibrillation[ICD10: I48.2] Diagnosis: Encounter for therapeutic drug level monitoring[ICD10: Z51.81] Becki BLACK [employer] CPT-4: 37905 07/18/2019 ([id number]) NURSE/OUTPATIENT VISIT EST Diagnosis: Encounter for therapeutic drug level monitoring[ICD10: Z51.81] Diagnosis: Chronic atrial fibrillation[ICD10: I48.2] Diagnosis: Essential (primary) hypertension[ICD10: I10] Becki BLACK [employer] CPT-4: 96328 07/06/2019 ([id number]) OFFICE/OUTPATIENT VISIT EST Diagnosis: Encounter for therapeutic drug level monitoring[ICD10: Z51.81] Diagnosis: Anemia, unspecified[ICD10: D64.9] Diagnosis: Bitten by dog, sequela[ICD10: W54.0XXS] 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] Becki BLACK [employer] CPT-4: 80276 06/14/2019 ([id number]) OFFICE/OUTPATIENT VISIT EST Diagnosis: Bitten by dog, sequela[ICD10: W54.0XXS] Diagnosis: Other fatigue[ICD10: R53.83] Diagnosis: Hypothyroidism, unspecified[ICD10: E03.9] Diagnosis: Muscle weakness (generalized)[ICD10: M62.81] Diagnosis: Generalized anxiety disorder[ICD10: F41.1] Jannette BLACK [employer] CPT-4: 17710 05/13/2019 ([id number]) NURSE/OUTPATIENT VISIT EST Diagnosis: Encounter for therapeutic drug level monitoring[ICD10: Z51.81] Becki BLACK DO [employer] CPT-4: 31991 05/06/2019 ([id number]) OFFICE/OUTPATIENT VISIT EST Diagnosis: Bitten by dog, sequela[ICD10: W54.0XXS] Diagnosis: Pain in right wrist[ICD10: M25.531] Diagnosis: Abrasion of right upper arm, sequela[ICD10: S40.811S] Diagnosis: Abrasion of left upper arm, sequela[ICD10: S40.812S] Jannette BLACK [employer] CPT-4: 84271 05/02/2019 ([id number]) NURSE/OUTPATIENT VISIT EST Diagnosis: Encounter for therapeutic drug level monitoring[ICD10: Z51.81] Becki BLACK [employer] CPT-4: 71441 04/07/2019 ([id number]) OFFICE/OUTPATIENT VISIT NEW Diagnosis: Encounter for therapeutic drug level monitoring[ICD10: Z51.81] Diagnosis: Chronic atrial fibrillation[ICD10: I48.2] Diagnosis: Essential (primary) hypertension[ICD10: I10] Diagnosis: Abnormal findings on diagnostic imaging of heart and coronary circulation[ICD10: R93.1] Diagnosis: Other forms of dyspnea[ICD10: R06.09] Diagnosis: Hypothyroidism, unspecified[ICD10: E03.9] Diagnosis: Mixed hyperlipidemia[ICD10: E78.2] Becki BLACK [employer] CPT-4: 84255 03/08/2019 Plan of Care Planned Activity Notes Codes Status Date Care Plan: CT HEAD/BRAIN W/O DYE LOINC : 48011-1 Pending 11/01/2019 Visit Diagnosis Plan: Headache Discussion: discussed t [...] ICD-9 : 921.0 ICD-10 : S05.12XA 10/31/2019 Visit Diagnosis Plan: Essential (primary) hypertension Discussion: increase losartan to 2 tabs a day. will have patient follow up pending results of ct scan. instructed to go to ED with any stroke symptoms such as dysphasia, weakness, etc. ICD-9 : 401.9 ICD-10 : I10 10/31/2019 Appointment: Jannette Mayen [address] [place] [address] Hospital Follow Up 10/31/2019 Patient Education: High Blood Pressure Co mpleted 10/31/2019 Patient Education: losartan- [employer] Coupon [id number] https://www.F[employer]go/sampleEpocrates/resources/getResource/61/0a348676-2o16-9396-4m Completed 10/31/2019 Appointment: Becki Black WPtel: [facility] FOLLOW UP 10/26/2019 Visit Diagnosis Plan: Radiculopathy of arm Discussion: flexeril prescribed to take as needed. will start at low dose but instructed patient to call office if not effective and will increase mg dose. PT ordered at [facility] to assist with pain. if no improvement or worsening from PT, will need imaging. 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 ICD-9 : 906.1 ICD-10 : W54.0XXS 09/20/2019 Visit Diagnosis Plan: Encounter for [facility] adult medical examination without abnormal findings Discussion: Mediterranean diet Combinati on of cardio and weight bearing exercise Had flu shot Update mammogram ICD-9 : V70.9 ICD-10 : Z00.00 09/20/2019 Appointment: Becki Black WPtel: [phone] [facility] Annual Well Visit 09/20/2019 Visit Diagnosis Plan: [...] : Z79.01 09/08/2019 Appointment: Jannette Mayen [address] [place], [place] [id number] ACUTE ILLNESS 09/08/2019 Appointment: Becki Black WPtel: [address] [place] [address] US CANCELED 08/16/2019 Appointment: Becki Black WPtel: [address] [place], [place] [phone] US LAB 07/29/2019 Appointment: Becki Black WPtel: [address] [place], [place] [phone] US LAB 07/18/2019 Appointment: Becki Black WPtel: [address] [place] [address] US LAB 07/06/2019 Visit Diagnosis Plan: Encounter [...] : W54.0XXS 06/14/2019 Appointment: Becki Black WPtel: [address] [place], [place] [phone] US FOLLOW UP 06/14/2019 Visit Diagnosis Plan: [...] hydrocodone several days ago. [facility] to discuss concerns. ICD-9 : 300.02 ICD-10 : F41.1 05/13/2019 Appointment: Jannette Mayen [address] [place], [place] [id number] FOLLOW UP 05/13/2019 Patient Education: carvedilol- [employer] Coupon [id number] https://www.Frengo/samplemd/resources/getResource/61/64r4o489-1inv-8411-3s Completed 05/13/2019 Patient Education: Xanax- [employer] Coupon [id number] https://www.Frengo/samplemd/resources/getResource/61/1050s3s1-0q16-8h4v-x9 1e-9n87092927j8.pdf Completed 05/13/2019 [facility]ment[phone] [facility] [facility] 05/06/2019 Visit Diagnosis Plan: Pain in right wrist Discussion: xray ordered of wrist to rule out acute fracture. will send results to dr. portillo at [facility]. ICD-9 : 719.43 ICD-10 : M25.531 [...] ICD-10 : S40.811S 05/02/2019 Appointment: Jannette Mayen [address] [place] [address] ACUTE ILLNESS 05/02/2019 Care Plan: X-RAY EXAM OF WRIST right LOINC : 3 7302-7 Pending 05/02/2019 Appointment: Becki Black WPtel: [address] [place] [address] LAB 04/07/2019 Appointment: Becki Black WPtel: [address] [place] [address] BP CHECK 03/22/2019 Visit Diagnosis Plan: Abnormal [...] I48.2 03/08/2019 Appointment[phone] [facility] [facility] 03/08/2019 Instructions No Instructions Medical Equipment No Medical Equipment data Health Concerns Section Health Concerns data not found Goals Section Goals data not found Interventions Section Interventions data not found Health Status Evaluations/Outcomes Section Health Status Evaluations/Outcomes data not found Advance Directives No Advance Directive data
--- OUTSIDE RECORDS SUMMARY | 2019-11-24 06:52 | XMS REPORT | CCD ---
Author Author Tricia Black D.O. Organization BECKI BLACK DO [facility] Address [address] [place] [address] Phone Care Team Providers Care Audio Visual Arts Director Name Role Phone PP Unavailable CCM Unavailable Summary Purpose Interface Exchange Insurance Providers Payer name Policy type / Coverage type Covered republican ID Effective Begin Date Effective End Date WPS MEDICARE PART B [place] Medicare Part B [id number] Unknown Unknown [facility] Medicare Part B [id number] Unknown Unknown Family history Grandmother Diagnosis Age [...] Unknown Retired 03/08/[address]: [id number] Has never smoked or chewed tobacco 03/08/[address]: 322382 Currently drinks alcohol 03/08 Has the patient [...] Fill Instructions losartan 50 mg tablet RxNorm: 738798 2 Tablet(s) Oral QD 11/01/2019 0 04/29/2020 Active potassium chloride ER 10 mEq capsule,extended release RxNorm : 343015 1 Capsule(s) Oral QD 10/26/2019 10/26/2019 Inactive potassium chloride ER 10 mEq tablet,extended release RxNorm: 491115 1 TABLET(S) ORAL QD 10/22/2019 04/18/2020 Active Replaces PA on 1 0MEQ Capsules Aspir-81 mg tablet,delayed release RxNorm: 112224 1 Tablet(s) O ral QD 10/11/2019 No Stop Date Active cyclobenzaprine 5 mg tablet RxNorm: 260163 1 Tablet(s) Oral two times a day as needed for muscle spasm 10/11/2019 No Stop Date Active Coumadin 4 mg tablet RxNorm: 904523 1 Tablet(s) Oral Mo nd through Thursday and 1/2 tablet (2mg) on Sat/Sun 10/11/2019 No Stop Date Active potassium chloride ER 10 mEq tablet,extended release RxNorm: 779661 1 Tablet(s) Oral QD 09/22/2019 09/21/2019 Inactive Replaces PA on 1 0MEQ Capsules potassium chloride ER 10 mEq tablet,extended release RxNorm: 690348 1 Tablet(s) Oral QD 09/22/2019 10/10/2019 Inactive Replaces PA on 1 0MEQ Capsules potassium chloride ER 10 mEq capsule,extended release RxNorm : 418711 1 Capsule(s) Oral QD 09/21/2019 09/21/2019 Inactive carvedilol 25 mg tablet RxNorm: 135098 1 Tablet(s) Oral two antolin es a day 08/23/2019 11/21/2019 Active isosorbide mononitrate ER 30 mg tablet,extended release 24 h r RxNorm: 985127 TABLET(S) 1 TABLET(S) PO NEEDED 08/22/2019 02/17/2020 Active Patient requests 90 days supply isosorbide mononitrate ER 30 mg tablet,extended release 24 h r RxNorm: 948077 Tablet(s) 1 TABLET(S) PO NEEDED 08/16/2019 08/21/2019 Inactive Patient requests 90 days supply levothyroxine 50 mcg tablet RxNorm: 953033 1 Tablet(s) PO QD 201802/03/2020 Active isosorbide mononitrate ER 30 mg tablet,extended release 24 h r RxNorm: 891145 Tablet(s) 1 TABLET(S) PO NEEDED 06/27/2019 08/15/2019 Inactive Patient requests 90 days supply isosorbide mononitrate ER 30 mg tablet,extended release 24 h r RxNorm: 145768 1 Tablet(s) PO QD as needed 06/27/2019 06/27/2019 Inactive Neris ent requests 90 days supply carvedilol 25 mg tablet RxNorm: 042588 1 TABLET(S) PO BID 06/27/2019 08/22/2019 Inactive furosemide 40 mg tablet RxNorm: 381914 1 Tablet(s) PO QAM 06/21/2019 12/17/2019 Active carvedilol 25 mg tablet RxNorm: 218689 1 Tablet(s) PO BID 05/13/2019 06/26/2019 Inactive Xanax 0.25 mg tablet RxNorm: 379622 1/2 Tablet(s) PO Q6H as needed 05/13/2019 09/07/2019 Inactive levothyroxine 50 mcg tablet RxNorm: 360836 1 Tablet(s) PO QD 201808/07/2019 Inactive losartan 50 mg tablet RxNorm: 989696 1 Tablet(s) PO QD 04/26/2019 Inactive losartan 50 mg tablet RxNorm: 672530 1 Tablet(s) PO QD 04/20/201901/2019 Inactive pravastatin 40 mg tablet RxNorm: 739594 1 Tablet(s) PO QD 04/07/2019 06/05/2019 Inactive isosorbide mononitrate ER 30 mg tablet,extended release 24 h r RxNorm: 645901 1 Tablet(s) PO as needed 04/07/2019 04/06/2019 Inactive isosorbide mononitrate ER 30 mg tablet,extended release 24 h r RxNorm: 938950 1 TABLET(S) PO NEEDED 04/07/2019 06/26/2019 Inactive Patient requests 90 days supply losartan 50 mg tablet RxNorm: 661428 1 Tablet(s) PO QD 03/22/2019 Inactive carvedilol 25 mg tablet RxNorm: 097186 1 Tablet(s) PO BID No Start Date 05/12/2019 Inactive losartan 50 mg tablet RxNorm: 434465 1 Tablet(s) PO QD No Start Date 03/21/2019 Inactive Ventolin HFA 90 mcg/actuation aerosol inhaler RxNorm: 375348 1-2 Puff(s) INH as needed No Start Date 09/07/2019 Inactive furosemide 40 mg tablet RxNorm: 161111 1 Tablet(s) PO QAM No Start Date 06/20/2019 Inactive pravastatin 40 mg tablet RxNorm: 088450 1 Tablet(s) PO QD No Start Date 04/06/2019 Inactive Coumadin 2 mg tablet RxNorm: 041637 1 Tablet(s) PO Mon, Fri, Sat and Sun then 2 tablets (4mg) on , Thu and No Start Date 10/10/2019 Inactive isosorbide mononitrate ER 30 mg tablet,extended release 24 h r RxNorm: 279836 Tablet(s) PO as needed No Start Date [...] ER 10 mEq capsule,extended release RxNorm : 102406 1 Capsule(s) PO QD No Start Date 09/20/2019 Inactive levothyroxine 50 mcg tablet RxNorm: 934508 1 Tablet(s) PO QD No Sta rt Date 04/25/2019 Inactive Medication Administered No Medication Administered data Immunizations Vaccine Codes Date Status Influenza CVX: 135 07/02/2019 Results Observation Observation Code Item Item Code Result Date S ervice Location PT 7249934 PT 31.4 Seconds 10/26/2019 Unknow n PT 8248791 INR 2.9 10/26/2019 Unknown PT 7505999 PT 17.6 Seconds 10/11/2019 Unknow n PT 6583467 INR 1.4 10/11/2019 Unknown PT 0707297 PT 23.7 Seconds 09/08/2019 Unknow n PT 4334463 INR 2.0 09/08/2019 Unknown PT 0372682 PT 23.2 Seconds 07/29/2019 Unknow n PT 9771641 INR 2.0 07/29/2019 Unknown PT 3581770 PT 14.3 Seconds 07/18/2019 Unknow n PT 4870168 INR 1.1 07/18/2019 [place] [address] Glucose 75 mg/dL 07/06 [place] [address] CREATININE 0.61 mg/dL [place] [address] BUN 15 mg/dL 07/06 [place] [address] SODIUM 142 mmol/L 06/23 [place] [address] POTASSIUM 4.0 mmol/L 06/23 [place] [address] CHLORIDE 106 mmol/L 06/23 [place] [address] Bicarbonate 28 mmol/L [place] [address] AGAP 8 mmol/L 07/06 [place] [address] CALCIUM 9.3 mg/dL 07/06 Unknown PT 4829338 PT 17.4 Seconds 07/06/2019 Unknow n PT [id number] INR 1.4 07/06/2019 Unknown GFR CALC 0283538 GFR Non Afr Amr >60 mL/min 07/06/2019 Un known GFR CALC 1293209 GFR Afr Amr >60 mL/min 07/06/2019 Unknow n COMPLETE BLOOD COUNT 4894911 WBC 4.7 10e9/L 07/06/20 19 Unknown COMPLETE BLOOD COUNT [id number] RBC 4.19 10e12/L 2018 Unknown COMPLETE BLOOD COUNT 7671897 HEMOGLOBIN 12.6 g/dL 07/06/20 19 Unknown COMPLETE BLOOD COUNT 3196689 HEMATOCRIT 39.4 % 07/06/20 19 Unknown COMPLETE BLOOD COUNT 1651871 MCV 94.0 fL 9 Unknown COMPLETE BLOOD COUNT 5279304 MCH 30.1 pg 9 Unknown COMPLETE BLOOD COUNT 5573044 MCHC 32.0 g/dL 9 Unknown COMPLETE BLOOD COUNT 0502032 PLATELET COUNT 160 10e9/L Unknown COMPLETE BLOOD COUNT 4492485 Mean Plt Volume 11.0 fL Unknown COMPLETE BLOOD COUNT 9328434 Neut Auto 56.6 % 9 Unknown COMPLETE BLOOD COUNT 4147394 Lymph Auto 27.0 % 07/06/20 19 Unknown COMPLETE BLOOD COUNT 0559618 Harmon Auto 13.7 % 9 Unknown COMPLETE BLOOD COUNT 8370186 RDW 14.6 % 9 Unknown COMPLETE BLOOD COUNT 4780829 Eos Auto 2.1 % 9 Unknown COMPLETE BLOOD COUNT 6251393 Baso Auto 0.6 % 9 Unknown COMPLETE BLOOD COUNT 0094673 Neutrophil Abs 2.66 10e9/L Unknown COMPLETE BLOOD COUNT 5551596 Lymphocyte Abs 1.27 10e9/L Unknown COMPLETE BLOOD COUNT 9742435 Monocyte Abs 0.64 10e9/L 06/23 Unknown COMPLETE BLOOD COUNT [id number] Eosinophil Abs 0.10 10e9/L Unknown COMPLETE BLOOD COUNT 1039628 RDW-SD 48.7 fL 9 Unknown COMPLETE BLOOD COUNT 9854252 Basophil Abs 0.03 10e9/L 06/23 Unknown COMPLETE BLOOD COUNT 7281126 WBC 4.6 10e9/L 06/14/20 19 Unknown COMPLETE BLOOD COUNT 4787568 RBC 4.16 10e12/L 2018 Unknown COMPLETE BLOOD COUNT 4336663 HEMOGLOBIN 12.6 g/dL 06/14/20 19 Unknown COMPLETE BLOOD COUNT 3136018 HEMATOCRIT 39.1 % 06/14/20 19 Unknown COMPLETE BLOOD COUNT 8465429 MCV 94.0 fL 9 Unknown COMPLETE BLOOD COUNT 3301071 MCH 30.3 pg 9 Unknown COMPLETE BLOOD COUNT 9438450 MCHC 32.2 g/dL 9 Unknown COMPLETE BLOOD COUNT 1435669 PLATELET COUNT 167 10e9/L Unknown COMPLETE BLOOD COUNT 7777554 Mean Plt Volume 10.9 fL Unknown COMPLETE BLOOD COUNT 1494228 Neut Auto 59.6 % 9 Unknown COMPLETE BLOOD COUNT 7634434 Lymph Auto 24.1 % 06/14/20 19 Unknown COMPLETE BLOOD COUNT 7949890 Harmon Auto 14.0 % 9 Unknown COMPLETE BLOOD COUNT 7554857 RDW 14.8 % 9 Unknown COMPLETE BLOOD COUNT 1217584 Eos Auto 1.9 % 9 Unknown COMPLETE BLOOD COUNT 4500912 Baso Auto 0.4 % 9 Unknown COMPLETE BLOOD COUNT 7698294 Neutrophil Abs 2.74 10e9/L Unknown COMPLETE BLOOD COUNT 6598595 Lymphocyte Abs 1.11 10e9/L Unknown COMPLETE BLOOD COUNT 4130635 Monocyte Abs 0.64 10e9/L 05/24 Unknown COMPLETE BLOOD COUNT 1201466 Eosinophil Abs 0.09 10e9/L Unknown COMPLETE BLOOD COUNT 8614427 RDW-SD 49.3 fL 9 Unknown COMPLETE BLOOD COUNT 2068664 Basophil Abs 0.02 10e9/L 05/24 Unknown PT 5409023 PT 22.3 Seconds 06/14/2019 Unknow n PT 2315383 INR 1.9 06/14/2019 Unknown COMPLETE BLOOD COUNT 3363114 WBC 4.0 10e9/L 05/13/20 19 Unknown COMPLETE BLOOD COUNT [id number] RBC 3.82 10e12/L 2018 Unknown COMPLETE BLOOD COUNT 9944295 HEMOGLOBIN 11.5 g/dL 05/13/20 19 Unknown COMPLETE BLOOD COUNT 3628704 HEMATOCRIT 36.4 % 05/13/20 19 Unknown COMPLETE BLOOD COUNT 8157199 MCV 95.3 fL 9 Unknown COMPLETE BLOOD COUNT 0577546 MCH 30.1 pg 9 Unknown COMPLETE BLOOD COUNT 7196797 MCHC 31.6 g/dL 9 Unknown COMPLETE BLOOD COUNT 8145403 PLATELET COUNT 175 10e9/L Unknown COMPLETE BLOOD COUNT 4698357 Mean Plt Volume 10.5 fL Unknown COMPLETE BLOOD COUNT 0725775 Neut Auto 63.2 % 9 Unknown COMPLETE BLOOD COUNT 0768723 Lymph Auto 22.0 % 05/13/20 19 Unknown COMPLETE BLOOD COUNT 0511833 Harmon Auto 12.1 % 9 Unknown COMPLETE BLOOD COUNT 1249968 RDW 14.9 % 9 Unknown COMPLETE BLOOD COUNT 3413532 Eos Auto 2.2 % 9 Unknown COMPLETE BLOOD COUNT 3324197 Baso Auto 0.5 % 9 Unknown COMPLETE BLOOD COUNT 5932697 Neutrophil Abs 2.53 10e9/L Unknown COMPLETE BLOOD COUNT 7756602 Lymphocyte Abs 0.88 10e9/L Unknown COMPLETE BLOOD COUNT 9392925 Monocyte Abs 0.48 10e9/L 04/24 Unknown COMPLETE BLOOD COUNT 3082363 Eosinophil Abs 0.09 10e9/L Unknown COMPLETE BLOOD COUNT 3170004 RDW-SD 49.6 fL 9 Unknown COMPLETE BLOOD COUNT 7422776 Basophil Abs 0.02 10e9/L 04/24 Unknown COMPREHENSIVE METABOLIC 04862 AST 18 U/L 2018 Unknown COMPREHENSIVE METABOLIC 68697 ALT 14 U/L 2018 Unknown COMPREHENSIVE METABOLIC 48492 BUN 15 mg/dL 2018 Unknown COMPREHENSIVE METABOLIC 89200 ALBUMIN 4.0 g/dL 2018 Unknown COMPREHENSIVE METABOLIC 90307 CHLORIDE 108 mmol/L 05/13 Unknown COMPREHENSIVE METABOLIC 58275 Bili Total 0.9 mg/dL 05/13 Unknown COMPREHENSIVE METABOLIC 93053 ALK PHOS 84 U/L 2018 Unknown COMPREHENSIVE METABOLIC 24987 SODIUM 142 mmol/L 05/13 Unknown COMPREHENSIVE METABOLIC 81175 CREATININE 0.72 mg/dL 04/24 Unknown COMPREHENSIVE METABOLIC 42935 CALCIUM 8.9 mg/dL 2018 Unknown COMPREHENSIVE METABOLIC 49016 POTASSIUM 4.0 mmol/L 05/13 Unknown COMPREHENSIVE METABOLIC 66893 Total Protein 5.5 g/dL Unknown COMPREHENSIVE METABOLIC 72022 Glucose 95 mg/dL 2018 Unknown COMPREHENSIVE METABOLIC 48771 Bicarbonate 27 mmol/L 04/24 Unknown COMPREHENSIVE METABOLIC 01205 AGAP 7 mmol/L 2018 Unknown GFR CALC 4626852 GFR Non Afr Amr >60 mL/min 05/13/2019 Un known GFR CALC 0105992 GFR Afr Amr >60 mL/min 05/13/2019 Unknow n THYROID STIMULATING HORMONE 43402 TSH 2.669 uIU/mL 05/13/2019 Unknown FREE T4 73325 T4 Free 1.19 ng/dL 05/13/2019 Unknown PT 3330099 PT 24.2 Seconds 05/06/2019 Unknow n PT 2256210 INR 2.1 05/06/2019 Unknown PT 9644305 PT 24.1 Seconds 03/08/2019 Unknow n PT 3140793 INR 2.9 03/08/2019 Unknown Procedures Procedure Codes Date PROTHROMBIN TIME CPT-4: 41287 10/26/2019 ROUTINE VENIPUNCTURE CPT-4: 12812 10/26/2019 ROUTINE VENIPUNCTURE CPT-4: 07291 10/11/2019 PT CPT-4: 6971906 10/11/2019 PPPS, initial visit CPT-4: G0438 09/20/2019 ROUTINE VENIPUNCTURE CPT-4: 24506 09/08/2019 PT CPT-4: 8901819 09/08/2019 THER/PROPH/DIAG INJ SC/IM CPT-4: 85132 09/08/2019 TRIAMCINOLONE ACET INJ NOS CPT-4: J3301 09/08/2019 ROUTINE VENIPUNCTURE CPT-4: 47694 07/29/2019 PT CPT-4: 3987040 07/29/2019 ROUTINE VENIPUNCTURE CPT-4: 57711 07/18/2019 PT CPT-4: 8614485 07/18/2019 METABOLIC PANEL TOTAL CA CPT-4: 73876 07/06/2019 COMPLETE CBC W/AUTO DIFF WBC CPT-4: 31063 07/06/2019 PROTHROMBIN TIME CPT-4: 95758 07/06/2019 ROUTINE VENIPUNCTURE CPT-4: 94724 06/14/2019 PROTHROMBIN TIME CPT-4: 28843 06/14/2019 COMPLETE CBC W/AUTO DIFF WBC CPT-4: 92005 06/14/2019 ROUTINE VENIPUNCTURE CPT-4: 64676 05/13/2019 COMPREHEN METABOLIC PANEL CPT-4: 23498 05/13/2019 COMPLETE CBC W/AUTO DIFF WBC CPT-4: 83671 05/13/2019 ASSAY THYROID STIM HORMONE CPT-4: 99644 05/13/2019 ASSAY OF FREE THYROXINE CPT-4: 80682 05/13/2019 PT CPT-4: 0137014 05/06/2019 ROUTINE VENIPUNCTURE CPT-4: 70491 05/06/2019 PT CPT-4: 8867211 04/07/2019 ROUTINE VENIPUNCTURE CPT-4: 52529 04/07/2019 ROUTINE VENIPUNCTURE CPT-4: 73638 03/08/2019 PROTHROMBIN TIME CPT-4: 49424 03/08/2019 Vital Signs Date Vital 11/03/2019 Blood [...] 1: 122/68 Code: 8480-6 BMI: 35.0 Code: 72949-1 Heart Rate 1: 72 bpm Height: 5'3" [...] 1: 114/78 Code: 8480-6 BMI: 36.1 Code: 35955-7 Heart Rate 1: 76 bpm Height: 5'3" [...] visit Encounters Encounter Performer Location Codes Date ([id number]) OFFICE/OUTPATIENT VISIT EST Diagnosis: Post concussion syndrome[ICD10: F07.81] Diagnosis: Head contusion[ICD10: S00.93XA] Diagnosis: Chronic airway obstruction, not elsewhere classified[ICD10: J44.9] Becki BLACK DO [facility] CPT-4: 14965 11/03/2019 ([id number]) OFFICE/OUTPATIENT VISIT EST Diagnosis: Fall as cause of accidental injury at home as place of occurrence[ICD10: W19.XXXA] Diagnosis: Headache[ICD10: R51] Diagnosis: Essential (primary) hypertension[ICD10: I10] Diagnosis: Long-term (current) use of anticoagulants, INR goal 2.0-3.0[ICD10: Z79.01] Diagnosis: Ecchymosis of left eye[ICD10: S05.12XA] Jannette BLACK DO [facility] CPT-4: 53356 10/31/2019 ([id number]) NURSE/OUTPATIENT VISIT EST Diagnosis: Long-term (current) use of anticoagulants, INR goal 2.0-3.0[ICD10: Z79.01] Becki BLACK DO [facility] CPT-4: 63431 10/26/2019 ([id number]) OFFICE/OUTPATIENT VISIT EST Diagnosis: Long-term (current) use of anticoagulants, INR goal 2.0-3.0[ICD10: Z79.01] Diagnosis: Pain in right arm[ICD10: M79.601] Diagnosis: Radiculopathy of arm[ICD10: M54.10] Jannette BLACK [employer] CPT-4: 02165 10/11/2019 ([id number]) OFFICE/OUTPATIENT VISIT EST Diagnosis: Long-term (current) use of anticoagulants, INR goal 2.0-3.0[ICD10: Z79.01] Diagnosis: Sinusitis[ICD10: J32.9] Diagnosis: Pain in right arm[ICD10: M79.601] Jannette BLACK [employer] CPT-4: 18501 09/08/2019 ([id number]) NURSE/OUTPATIENT VISIT EST Diagnosis: Chronic atrial fibrillation[ICD10: I48.2] Diagnosis: Encounter for therapeutic drug level monitoring[ICD10: Z51.81] Becki Donisanirudh BECKI LBACK DO [employer] CPT-4: 75355 07/29/2019 ([id number]) NURSE/OUTPATIENT VISIT EST Diagnosis: Chronic atrial fibrillation[ICD10: I48.2] Diagnosis: Encounter for therapeutic drug level monitoring[ICD10: Z51.81] Becki Donisanirudh BECKI BLACK [employer] CPT-4: 02778 07/18/2019 ([id number]) NURSE/OUTPATIENT VISIT EST Diagnosis: Encounter for therapeutic drug level monitoring[ICD10: Z51.81] Diagnosis: Chronic atrial fibrillation[ICD10: I48.2] Diagnosis: Essential (primary) hypertension[ICD10: I10] Becki BLACK DO [facility] CPT-4: 18226 07/06/2019 ([id number]) OFFICE/OUTPATIENT VISIT EST Diagnosis: Encounter for therapeutic drug level monitoring[ICD10: Z51.81] Diagnosis: Anemia, unspecified[ICD10: D64.9] Diagnosis: Bitten by dog, sequela[ICD10: W54.0XXS] 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] Becki BLACK DO [facility] CPT-4: 87043 06/14/2019 ([id number]) OFFICE/OUTPATIENT VISIT EST Diagnosis: Bitten by dog, sequela[ICD10: W54.0XXS] Diagnosis: Other fatigue[ICD10: R53.83] Diagnosis: Hypothyroidism, unspecified[ICD10: E03.9] Diagnosis: Muscle weakness (generalized)[ICD10: M62.81] Diagnosis: Generalized anxiety disorder[ICD10: F41.1] Jannette BLACK DO [facility] CPT-4: 21592 05/13/2019 ([id number]) NURSE/OUTPATIENT VISIT EST Diagnosis: Encounter for therapeutic drug level monitoring[ICD10: Z51.81] Becki BLACK [employer] [facility] CPT-4: 18755 05/06/2019 ([id number]) OFFICE/OUTPATIENT VISIT EST Diagnosis: Bitten by dog, sequela[ICD10: W54.0XXS] Diagnosis: Pain in right wrist[ICD10: M25.531] Diagnosis: Abrasion of right upper arm, sequela[ICD10: S40.811S] Diagnosis: Abrasion of left upper arm, sequela[ICD10: S40.812S] Jannette BLACK DO [facility] CPT-4: 42408 05/02/2019 ([id number]) NURSE/OUTPATIENT VISIT EST Diagnosis: Encounter for therapeutic drug level monitoring[ICD10: Z51.81] Becki BLACK DO [facility] CPT-4: 29169 04/07/2019 ([id number]) OFFICE/OUTPATIENT VISIT NEW Diagnosis: Encounter for therapeutic drug level monitoring[ICD10: Z51.81] Diagnosis: Chronic atrial fibrillation[ICD10: I48.2] Diagnosis: Essential (primary) hypertension[ICD10: I10] Diagnosis: Abnormal findings on diagnostic imaging of heart and coronary circulation[ICD10: R93.1] Diagnosis: Other forms of dyspnea[ICD10: R06.09] Diagnosis: Hypothyroidism, unspecified[ICD10: E03.9] Diagnosis: Mixed hyperlipidemia[ICD10: E78.2] Becki BLACK DO [facility] CPT-4: 11332 03/08/2019 Plan of Care Planned Activity Notes [...] Plan: CT HEAD/BRAIN W/O DYE LOINC : 61220-1 Pending 11/01/2019 Visit Diagnosis Plan: Essential (primary) [...] ICD-10 : S05.12XA 10/31/2019 Appointment: Jannette Mayen [address] [place], [place] [id number] Hospital Follow Up 10/31/2019 Patient Education: High Blood Pressure Co mpleted 10/31/2019 Patient Education: losartan- [employer] Coupon [id number] https://www.[employer]/resources/getResource/61/8b666100-0b04-8963-9i Completed 10/31/2019 Appointment: Becki Black WPtel: [phone] [id number] FOLLOW UP 10/26/2019 Visit Diagnosis Plan: Radiculopathy of arm Discussion: flexeril prescribed to take as needed. will start at low dose but instructed patient to call office if not effective and will increase mg dose. PT ordered at [facility] to assist with pain. if no improvement or worsening from PT, will need imaging. ICD-9 : 723.4 ICD-10 : M54.10 10/11/2019 Visit Diagnosis Plan: Long-term (current ) use of anticoagulants, INR goal 2.0-3.0 Discussion: will update pt/inr ICD-9 : V58.61 ICD-10 : Z79.01 10/11/2019 Appointment: Jannette Mayen [address] [place], [place] [id number] ACUTE ILLNESS 10/11/2019 Patient Education: cyclobenzaprine- [employer] Coupon [id number] https://www.[employer]/resources/getResource/61/[email or web address] Completed 10/11/2019 Visit Diagnosis Plan: Mixed hyperlipidemia [...] on right--dscussed stretches, massage, accupuncture---patient had hired collections attorney ICD-9 : 906.1 ICD-10 : W54.0XXS 09/20/2019 Visit Diagnosis Plan: Encounter for [facility] adult medical examination without abnormal findings Discussion: Mediterranean diet Combinati on of cardio and weight bearing exercise Had flu shot Update mammogram ICD-9 : V70.9 ICD-10 : Z00.00 09/20/2019 Appointment: Becki Black WPtel: [address] [place], [place] [phone] Annual Well Visit 09/20/2019 Visit Diagnosis Plan: [...] ICD-10 : Z79.01 09/08/2019 Appointment: Jannette Mayen [address] [place], [place] [id number] ACUTE ILLNESS 09/08/2019 Appointment: Becki Black WPtel: [address] [place], [place] [phone] US CANCELED 08/16/2019 Appointment: Becki Black WPtel: [address] [place], [place] [phone] US LAB 07/29/2019 Appointment: Becki Black WPtel: [address] [place], [place] [phone] US LAB 07/18/2019 [facility]ment[facility] [phone] [id number] [facility] 07/06/2019 Visit Diagnosis Plan: Encounter [...] W54.0XXS 06/14/2019 Appointment: [facility]el[facility] [phone] [facility] [facility] FO[facility] 06/14/2019 Visit Diagnosis [...] hydrocodone several days ago. will refer to [facility] as well to discuss concerns. ICD-9 : 300.02 ICD-10 : F41.1 05/13/2019 Appointment: [facility] [address] [facility] [facility] 05/13/2019 Patient Education: carvedilol- [employer] Coupon [phone] https://www.[employer]/resources/getResource/61/[email or web address]-9491-0b Completed 05/13/2019 Patient Education: Xanax- [employer] Coupon [id number] https://www.[employer]/resources/getResource/61/[email or web address] [email or web address].pdf Completed 05/13/2019 Appointment: Becki Black [facility]el[facility] [phone] [id number] [facility] 05/06/2019 Visit Diagnosis Plan: Pain in right wrist Discussion: xray ordered of wrist to rule out acute fracture. will send results to dr. portillo at [facility]. ICD-9 : 719.43 ICD-10 : [...] : S40.811S 05/02/2019 Appointment: Jannette Mayen [address] ACUTE ILLNESS 05/02/2019 Care Plan: X-RAY EXAM OF WRIST right LOINC : 3 7302-7 Pending 05/02/2019 Appointment: Becki Blcak WPtel: [address] [place], [place] [phone] US LAB 04/07/2019 Appointment: Becki Black WPtel: [address] [place] [address] BP CHECK 03/22/2019 Visit Diagnosis Plan: Abnormal [...] : I48.2 03/08/2019 Appointment: Becki Black WPtel: [address] [place], [place] [phone] NEW PATIENT 03/08/2019 Instructions No Instructions Medical Equipment No Medical Equipment data Health Concerns Section Health Concerns data not found Goals Section Goals data not found Interventions Section Interventions data not found Health Status Evaluations/Outcomes Section Health Status Evaluations/Outcomes data not found Advance Directives No Advance Directive data
--- OUTSIDE RECORDS SUMMARY | 2019-11-24 06:52 | XMS REPORT | CCD ---
Author Author Tricia Black D.O. Organization [facility] Address [address] [place] [address] Phone Care Team Providers Care Stevedore Dock Name Role Phone PP Unavailable CCM Unavailable Summary Purpose Interface Exchange Insurance Providers Payer name Policy type / Coverage type Covered constitution party ID Effective Begin Date Effective End Date WPS MEDICARE PART B [place] Medicare Part B [id number] Unknown Unknown [facility] Medicare Part B [id number] Unknown Unknown Family history Grandmother Diagnosis Age [...] Unknown Retired 03/08/[address]: 544812128 Has never smoked or chewed tobacco 03/08/[address]: 597107 Currently drinks alcohol 03/08 Has the patient [...] Fill Instructions losartan 50 mg tablet RxNorm: 038359 2 Tablet(s) Oral QD 11/01/2019 0 04/29/2020 Active potassium chloride ER 10 mEq capsule,extended release RxNorm : 157907 1 Capsule(s) Oral QD 10/26/2019 10/26/2019 Inactive potassium chloride ER 10 mEq tablet,extended release RxNorm: 561611 1 TABLET(S) ORAL QD 10/22/2019 04/18/2020 Active Replaces PA on 1 0MEQ Capsules Aspir-81 mg tablet,delayed release RxNorm: 559209 1 Tablet(s) O ral QD 10/11/2019 No Stop Date Active cyclobenzaprine 5 mg tablet RxNorm: 826754 1 Tablet(s) Oral two times a day as needed for muscle spasm 10/11/2019 No Stop Date Active Coumadin 4 mg tablet RxNorm: 229573 1 Tablet(s) Oral Mo nd through Thursday and 1/2 tablet (2mg) on Sat/Sun 10/11/2019 No Stop Date Active potassium chloride ER 10 mEq tablet,extended release RxNorm: 572849 1 Tablet(s) Oral QD 09/22/2019 09/21/2019 Inactive Replaces PA on 1 0MEQ Capsules potassium chloride ER 10 mEq tablet,extended release RxNorm: 122040 1 Tablet(s) Oral QD 09/22/2019 10/10/2019 Inactive Replaces PA on 1 0MEQ Capsules potassium chloride ER 10 mEq capsule,extended release RxNorm : 357258 1 Capsule(s) Oral QD 09/21/2019 09/21/2019 Inactive carvedilol 25 mg tablet RxNorm: 416522 1 Tablet(s) Oral two antolin es a day 08/23/2019 11/21/2019 Active isosorbide mononitrate ER 30 mg tablet,extended release 24 h r RxNorm: 633331 TABLET(S) 1 TABLET(S) PO NEEDED 08/22/2019 02/17/2020 Active Patient requests 90 days supply isosorbide mononitrate ER 30 mg tablet,extended release 24 h r RxNorm: 583566 Tablet(s) 1 TABLET(S) PO NEEDED 08/16/2019 08/21/2019 Inactive Patient requests 90 days supply levothyroxine 50 mcg tablet RxNorm: 365329 1 Tablet(s) PO QD 201802/03/2020 Active isosorbide mononitrate ER 30 mg tablet,extended release 24 h r RxNorm: 306045 Tablet(s) 1 TABLET(S) PO NEEDED 06/27/2019 08/15/2019 Inactive Patient requests 90 days supply isosorbide mononitrate ER 30 mg tablet,extended release 24 h r RxNorm: 441750 1 Tablet(s) PO QD as needed 06/27/2019 06/27/2019 Inactive Neris ent requests 90 days supply carvedilol 25 mg tablet RxNorm: 282932 1 TABLET(S) PO BID 06/27/2019 08/22/2019 Inactive furosemide 40 mg tablet RxNorm: 197617 1 Tablet(s) PO QAM 06/21/2019 12/17/2019 Active carvedilol 25 mg tablet RxNorm: 434572 1 Tablet(s) PO BID 05/13/2019 06/26/2019 Inactive Xanax 0.25 mg tablet RxNorm: 389041 1/2 Tablet(s) PO Q6H as needed 05/13/2019 09/07/2019 Inactive levothyroxine 50 mcg tablet RxNorm: 027746 1 Tablet(s) PO QD 201808/07/2019 Inactive losartan 50 mg tablet RxNorm: 261403 1 Tablet(s) PO QD 04/26/2019 Inactive losartan 50 mg tablet RxNorm: 184314 1 Tablet(s) PO QD 04/20/201901/2019 Inactive pravastatin 40 mg tablet RxNorm: 680823 1 Tablet(s) PO QD 04/07/2019 06/05/2019 Inactive isosorbide mononitrate ER 30 mg tablet,extended release 24 h r RxNorm: 668599 1 Tablet(s) PO as needed 04/07/2019 04/06/2019 Inactive isosorbide mononitrate ER 30 mg tablet,extended release 24 h r RxNorm: 175580 1 TABLET(S) PO NEEDED 04/07/2019 06/26/2019 Inactive Patient requests 90 days supply losartan 50 mg tablet RxNorm: 532547 1 Tablet(s) PO QD 03/22/2019 Inactive carvedilol 25 mg tablet RxNorm: 226756 1 Tablet(s) PO BID No Start Date 05/12/2019 Inactive losartan 50 mg tablet RxNorm: 724732 1 Tablet(s) PO QD No Start Date 03/21/2019 Inactive Ventolin HFA 90 mcg/actuation aerosol inhaler RxNorm: 430484 1-2 Puff(s) INH as needed No Start Date 09/07/2019 Inactive furosemide 40 mg tablet RxNorm: 897221 1 Tablet(s) PO QAM No Start Date 06/20/2019 Inactive pravastatin 40 mg tablet RxNorm: 786220 1 Tablet(s) PO QD No Start Date 04/06/2019 Inactive Coumadin 2 mg tablet RxNorm: 843353 1 Tablet(s) PO Mon, Fri, Sat and Sun then 2 tablets (4mg) on , Thu and No Start Date 10/10/2019 Inactive isosorbide mononitrate ER 30 mg tablet,extended release 24 h r RxNorm: 862444 Tablet(s) PO as needed No Start Date [...] ER 10 mEq capsule,extended release RxNorm : 182623 1 Capsule(s) PO QD No Start Date 09/20/2019 Inactive levothyroxine 50 mcg tablet RxNorm: 549237 1 Tablet(s) PO QD No Sta rt Date 04/25/2019 Inactive Medication Administered No Medication Administered data Immunizations Vaccine Codes Date Status Influenza CVX: 135 07/02/2019 Results Observation Observation Code Item Item Code Result Date S ervice Location PT 1892288 PT 31.4 Seconds 10/26/2019 Unknow n PT 2087352 INR 2.9 10/26/2019 Unknown PT 0008147 PT 17.6 Seconds 10/11/2019 Unknow n PT 0112672 INR 1.4 10/11/2019 Unknown PT 5203327 PT 23.7 Seconds 09/08/2019 Unknow n PT 6415251 INR 2.0 09/08/2019 Unknown PT 2648685 PT 23.2 Seconds 07/29/2019 Unknow n PT 3891019 INR 2.0 07/29/2019 Unknown PT 9861271 PT 14.3 Seconds 07/18/2019 Unknow n PT 7545508 INR 1.1 07/18/2019 [place] [address] Glucose 75 mg/dL 07/06 [place] [address] CREATININE 0.61 mg/dL [place] [address] BUN 15 mg/dL 07/06 [place] [address] SODIUM 142 mmol/L 06/23 [place] [address] POTASSIUM 4.0 mmol/L 06/23 [place] [address] CHLORIDE 106 mmol/L 06/23 [place] [address] Bicarbonate 28 mmol/L [place] [address] AGAP 8 mmol/L 07/06 [place] [address] CALCIUM 9.3 mg/dL 07/06 Unknown PT 9640603 PT 17.4 Seconds 07/06/2019 Unknow n PT 0993290 INR 1.4 07/06/2019 Unknown GFR CALC 1132636 GFR Non Afr Amr >60 mL/min 07/06/2019 Un known GFR CALC 4935554 GFR Afr Amr >60 mL/min 07/06/2019 Unknow n COMPLETE BLOOD COUNT 9650433 WBC 4.7 10e9/L 07/06/20 19 Unknown COMPLETE BLOOD COUNT [id number] RBC 4.19 10e12/L 2018 Unknown COMPLETE BLOOD COUNT 9766788 HEMOGLOBIN 12.6 g/dL 07/06/20 19 Unknown COMPLETE BLOOD COUNT 3139251 HEMATOCRIT 39.4 % 07/06/20 19 Unknown COMPLETE BLOOD COUNT 5872809 MCV 94.0 fL 9 Unknown COMPLETE BLOOD COUNT 7749823 MCH 30.1 pg 9 Unknown COMPLETE BLOOD COUNT 5205608 MCHC 32.0 g/dL 9 Unknown COMPLETE BLOOD COUNT 5278273 PLATELET COUNT 160 10e9/L Unknown COMPLETE BLOOD COUNT 5202615 Mean Plt Volume 11.0 fL Unknown COMPLETE BLOOD COUNT 6166290 Neut Auto 56.6 % 9 Unknown COMPLETE BLOOD COUNT 3256333 Lymph Auto 27.0 % 07/06/20 19 Unknown COMPLETE BLOOD COUNT 5189119 [place] Auto 13.7 % 9 Unknown COMPLETE BLOOD COUNT 5760703 RDW 14.6 % 9 Unknown COMPLETE BLOOD COUNT 0618054 Eos Auto 2.1 % 9 Unknown COMPLETE BLOOD COUNT 2996020 Baso Auto 0.6 % 9 Unknown COMPLETE BLOOD COUNT 5619805 Neutrophil Abs 2.66 10e9/L Unknown COMPLETE BLOOD COUNT 5631192 Lymphocyte Abs 1.27 10e9/L Unknown COMPLETE BLOOD COUNT 4914193 Monocyte Abs 0.64 10e9/L 06/23 Unknown COMPLETE BLOOD COUNT 9737471 Eosinophil Abs 0.10 10e9/L Unknown COMPLETE BLOOD COUNT 7182510 RDW-SD 48.7 fL 9 Unknown COMPLETE BLOOD COUNT 3315425 Basophil Abs 0.03 10e9/L 06/23 Unknown COMPLETE BLOOD COUNT 4897833 WBC 4.6 10e9/L 06/14/20 19 Unknown COMPLETE BLOOD COUNT 1708047 RBC 4.16 10e12/L 2018 Unknown COMPLETE BLOOD COUNT 2337161 HEMOGLOBIN 12.6 g/dL 06/14/20 19 Unknown COMPLETE BLOOD COUNT 1564235 HEMATOCRIT 39.1 % 06/14/20 19 Unknown COMPLETE BLOOD COUNT 4502236 MCV 94.0 fL 9 Unknown COMPLETE BLOOD COUNT 0152589 MCH 30.3 pg 9 Unknown COMPLETE BLOOD COUNT 5441872 MCHC 32.2 g/dL 9 Unknown COMPLETE BLOOD COUNT 4012155 PLATELET COUNT 167 10e9/L Unknown COMPLETE BLOOD COUNT 0556502 Mean Plt Volume 10.9 fL Unknown COMPLETE BLOOD COUNT 7991309 Neut Auto 59.6 % 9 Unknown COMPLETE BLOOD COUNT 5604722 Lymph Auto 24.1 % 06/14/20 19 Unknown COMPLETE BLOOD COUNT 2708537 [place] Auto 14.0 % 9 Unknown COMPLETE BLOOD COUNT 1491296 RDW 14.8 % 9 Unknown COMPLETE BLOOD COUNT 1647292 Eos Auto 1.9 % 9 Unknown COMPLETE BLOOD COUNT 1366735 Baso Auto 0.4 % 9 Unknown COMPLETE BLOOD COUNT 5183069 Neutrophil Abs 2.74 10e9/L Unknown COMPLETE BLOOD COUNT 2101411 Lymphocyte Abs 1.11 10e9/L Unknown COMPLETE BLOOD COUNT 3787703 Monocyte Abs 0.64 10e9/L 05/24 Unknown COMPLETE BLOOD COUNT 0162221 Eosinophil Abs 0.09 10e9/L Unknown COMPLETE BLOOD COUNT 9020852 RDW-SD 49.3 fL 9 Unknown COMPLETE BLOOD COUNT 7472483 Basophil Abs 0.02 10e9/L 05/24 Unknown PT 2951128 PT 22.3 Seconds 06/14/2019 Unknow n PT 9789121 INR 1.9 06/14/2019 Unknown COMPLETE BLOOD COUNT 6083435 WBC 4.0 10e9/L 05/13/20 19 Unknown COMPLETE BLOOD COUNT 7035388 RBC 3.82 10e12/L 2018 Unknown COMPLETE BLOOD COUNT 0242744 HEMOGLOBIN 11.5 g/dL 05/13/20 19 Unknown COMPLETE BLOOD COUNT 2460985 HEMATOCRIT 36.4 % 05/13/20 19 Unknown COMPLETE BLOOD COUNT 1763281 MCV 95.3 fL 9 Unknown COMPLETE BLOOD COUNT 7295621 MCH 30.1 pg 9 Unknown COMPLETE BLOOD COUNT 4722808 MCHC 31.6 g/dL 9 Unknown COMPLETE BLOOD COUNT 0439281 PLATELET COUNT 175 10e9/L Unknown COMPLETE BLOOD COUNT 9600191 Mean Plt Volume 10.5 fL Unknown COMPLETE BLOOD COUNT 9760318 Neut Auto 63.2 % 9 Unknown COMPLETE BLOOD COUNT 8944590 Lymph Auto 22.0 % 05/13/20 19 Unknown COMPLETE BLOOD COUNT 3269780 [place] Auto 12.1 % 9 Unknown COMPLETE BLOOD COUNT 8803986 RDW 14.9 % 9 Unknown COMPLETE BLOOD COUNT 8926659 Eos Auto 2.2 % 9 Unknown COMPLETE BLOOD COUNT 4262744 Baso Auto 0.5 % 9 Unknown COMPLETE BLOOD COUNT 9768077 Neutrophil Abs 2.53 10e9/L Unknown COMPLETE BLOOD COUNT 3871148 Lymphocyte Abs 0.88 10e9/L Unknown COMPLETE BLOOD COUNT 6335688 Monocyte Abs 0.48 10e9/L 04/24 Unknown COMPLETE BLOOD COUNT 0803021 Eosinophil Abs 0.09 10e9/L Unknown COMPLETE BLOOD COUNT 5581029 RDW-SD 49.6 fL 9 Unknown COMPLETE BLOOD COUNT 0664589 Basophil Abs 0.02 10e9/L 04/24 Unknown COMPREHENSIVE METABOLIC 45984 AST 18 U/L 2018 Unknown COMPREHENSIVE METABOLIC 42950 ALT 14 U/L 2018 Unknown COMPREHENSIVE METABOLIC 72470 BUN 15 mg/dL 2018 Unknown COMPREHENSIVE METABOLIC 38270 ALBUMIN 4.0 g/dL 2018 Unknown COMPREHENSIVE METABOLIC 95455 CHLORIDE 108 mmol/L 05/13 Unknown COMPREHENSIVE METABOLIC 01426 Bili Total 0.9 mg/dL 05/13 Unknown COMPREHENSIVE METABOLIC 17381 ALK PHOS 84 U/L 2018 Unknown COMPREHENSIVE METABOLIC 17298 SODIUM 142 mmol/L 05/13 Unknown COMPREHENSIVE METABOLIC 41591 CREATININE 0.72 mg/dL 04/24 Unknown COMPREHENSIVE METABOLIC 48832 CALCIUM 8.9 mg/dL 2018 Unknown COMPREHENSIVE METABOLIC 84568 POTASSIUM 4.0 mmol/L 05/13 Unknown COMPREHENSIVE METABOLIC 14469 Total Protein 5.5 g/dL Unknown COMPREHENSIVE METABOLIC 24319 Glucose 95 mg/dL 2018 Unknown COMPREHENSIVE METABOLIC 65324 Bicarbonate 27 mmol/L 04/24 Unknown COMPREHENSIVE METABOLIC 23751 AGAP 7 mmol/L 2018 Unknown GFR CALC 8813165 GFR Non Afr Amr >60 mL/min 05/13/2019 Un known GFR CALC 7045520 GFR Afr Amr >60 mL/min 05/13/2019 Unknow n THYROID STIMULATING HORMONE 19854 TSH 2.669 uIU/mL 05/13/2019 Unknown FREE T4 24220 T4 Free 1.19 ng/dL 05/13/2019 Unknown PT 8542790 PT 24.2 Seconds 05/06/2019 Unknow n PT 1036455 INR 2.1 05/06/2019 Unknown PT 4315535 PT 24.1 Seconds 03/08/2019 Unknow n PT 3086249 INR 2.9 03/08/2019 Unknown Procedures Procedure Codes Date PROTHROMBIN TIME CPT-4: 67705 10/26/2019 ROUTINE VENIPUNCTURE CPT-4: 01932 10/26/2019 ROUTINE VENIPUNCTURE CPT-4: 99915 10/11/2019 PT CPT-4: 9391571 10/11/2019 PPPS, initial visit CPT-4: G0438 09/20/2019 ROUTINE VENIPUNCTURE CPT-4: 23706 09/08/2019 PT CPT-4: 2585244 09/08/2019 THER/PROPH/DIAG INJ SC/IM CPT-4: 96403 09/08/2019 TRIAMCINOLONE ACET INJ NOS CPT-4: J3301 09/08/2019 ROUTINE VENIPUNCTURE CPT-4: 93405 07/29/2019 PT CPT-4: 8614177 07/29/2019 ROUTINE VENIPUNCTURE CPT-4: 88223 07/18/2019 PT CPT-4: 6832270 07/18/2019 METABOLIC PANEL TOTAL CA CPT-4: 59611 07/06/2019 COMPLETE CBC W/AUTO DIFF WBC CPT-4: 85063 07/06/2019 PROTHROMBIN TIME CPT-4: 95107 07/06/2019 ROUTINE VENIPUNCTURE CPT-4: 42244 06/14/2019 PROTHROMBIN TIME CPT-4: 07963 06/14/2019 COMPLETE CBC W/AUTO DIFF WBC CPT-4: 15412 06/14/2019 ROUTINE VENIPUNCTURE CPT-4: 29755 05/13/2019 COMPREHEN METABOLIC PANEL CPT-4: 53254 05/13/2019 COMPLETE CBC W/AUTO DIFF WBC CPT-4: 92747 05/13/2019 ASSAY THYROID STIM HORMONE CPT-4: 02950 05/13/2019 ASSAY OF FREE THYROXINE CPT-4: 10922 05/13/2019 PT CPT-4: 0885577 05/06/2019 ROUTINE VENIPUNCTURE CPT-4: 54397 05/06/2019 PT CPT-4: 2195863 04/07/2019 ROUTINE VENIPUNCTURE CPT-4: 11033 04/07/2019 ROUTINE VENIPUNCTURE CPT-4: 39062 03/08/2019 PROTHROMBIN TIME CPT-4: 11756 03/08/2019 Vital Signs Date Vital 11/03/2019 Blood [...] 1: 122/68 Code: 8480-6 BMI: 35.0 Code: 57460-7 Heart Rate 1: 72 bpm Height: 5'3" [...] 1: 114/78 Code: 8480-6 BMI: 36.1 Code: 94401-2 Heart Rate 1: 76 bpm Height: 5'3" [...] visit Encounters Encounter Performer Location Codes Date ([id number]) OFFICE/OUTPATIENT VISIT EST Diagnosis: Post concussion syndrome[ICD10: F07.81] Diagnosis: Head contusion[ICD10: S00.93XA] Diagnosis: Chronic airway obstruction, not elsewhere classified[ICD10: J44.9] Becki BLACK DO [facility] CPT-4: 56876 11/03/2019 ([id number]) OFFICE/OUTPATIENT VISIT EST Diagnosis: Fall as cause of accidental injury at home as place of occurrence[ICD10: W19.XXXA] Diagnosis: Headache[ICD10: R51] Diagnosis: Essential (primary) hypertension[ICD10: I10] Diagnosis: Long-term (current) use of anticoagulants, INR goal 2.0-3.0[ICD10: Z79.01] Diagnosis: Ecchymosis of left eye[ICD10: S05.12XA] Jannette BLACK DO [employer] CPT-4: 92099 10/31/2019 ([id number]) NURSE/OUTPATIENT VISIT EST Diagnosis: Long-term (current) use of anticoagulants, INR goal 2.0-3.0[ICD10: Z79.01] Becki BLACK DO [employer] CPT-4: 32335 10/26/2019 ([id number]) OFFICE/OUTPATIENT VISIT EST Diagnosis: Long-term (current) use of anticoagulants, INR goal 2.0-3.0[ICD10: Z79.01] Diagnosis: Pain in right arm[ICD10: M79.601] Diagnosis: Radiculopathy of arm[ICD10: M54.10] Jannette BLACK [employer] CPT-4: 22418 10/11/2019 ([id number]) OFFICE/OUTPATIENT VISIT EST Diagnosis: Long-term (current) use of anticoagulants, INR goal 2.0-3.0[ICD10: Z79.01] Diagnosis: Sinusitis[ICD10: J32.9] Diagnosis: Pain in right arm[ICD10: M79.601] Jannette BLACK [employer] CPT-4: 60070 09/08/2019 ([id number]) NURSE/OUTPATIENT VISIT EST Diagnosis: Chronic atrial fibrillation[ICD10: I48.2] Diagnosis: Encounter for therapeutic drug level monitoring[ICD10: Z51.81] Becki Donisanirudh BECKI BLACK DO [employer] CPT-4: 52504 07/29/2019 ([id number]) NURSE/OUTPATIENT VISIT EST Diagnosis: Chronic atrial fibrillation[ICD10: I48.2] Diagnosis: Encounter for therapeutic drug level monitoring[ICD10: Z51.81] Becki Donisanirudh BECKI BLACK [employer] CPT-4: 50892 07/18/2019 ([id number]) NURSE/OUTPATIENT VISIT EST Diagnosis: Encounter for therapeutic drug level monitoring[ICD10: Z51.81] Diagnosis: Chronic atrial fibrillation[ICD10: I48.2] Diagnosis: Essential (primary) hypertension[ICD10: I10] Becki BLACK DO [facility] CPT-4: 18399 07/06/2019 ([id number]) OFFICE/OUTPATIENT VISIT EST Diagnosis: Encounter for therapeutic drug level monitoring[ICD10: Z51.81] Diagnosis: Anemia, unspecified[ICD10: D64.9] Diagnosis: Bitten by dog, sequela[ICD10: W54.0XXS] 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] Becki BLACK DO [facility] CPT-4: 77439 06/14/2019 ([id number]) OFFICE/OUTPATIENT VISIT EST Diagnosis: Bitten by dog, sequela[ICD10: W54.0XXS] Diagnosis: Other fatigue[ICD10: R53.83] Diagnosis: Hypothyroidism, unspecified[ICD10: E03.9] Diagnosis: Muscle weakness (generalized)[ICD10: M62.81] Diagnosis: Generalized anxiety disorder[ICD10: F41.1] Jannette BLACK DO [facility] CPT-4: 86075 05/13/2019 ([id number]) NURSE/OUTPATIENT VISIT EST Diagnosis: Encounter for therapeutic drug level monitoring[ICD10: Z51.81] Becki BLACK [employer] [facility] CPT-4: 13649 05/06/2019 ([id number]) OFFICE/OUTPATIENT VISIT EST Diagnosis: Bitten by dog, sequela[ICD10: W54.0XXS] Diagnosis: Pain in right wrist[ICD10: M25.531] Diagnosis: Abrasion of right upper arm, sequela[ICD10: S40.811S] Diagnosis: Abrasion of left upper arm, sequela[ICD10: S40.812S] Jannette BLACK DO [facility] CPT-4: 50857 05/02/2019 ([id number]) NURSE/OUTPATIENT VISIT EST Diagnosis: Encounter for therapeutic drug level monitoring[ICD10: Z51.81] Becki BLACK DO [facility] CPT-4: 46788 04/07/2019 ([id number]) OFFICE/OUTPATIENT VISIT NEW Diagnosis: Encounter for therapeutic drug level monitoring[ICD10: Z51.81] Diagnosis: Chronic atrial fibrillation[ICD10: I48.2] Diagnosis: Essential (primary) hypertension[ICD10: I10] Diagnosis: Abnormal findings on diagnostic imaging of heart and coronary circulation[ICD10: R93.1] Diagnosis: Other forms of dyspnea[ICD10: R06.09] Diagnosis: Hypothyroidism, unspecified[ICD10: E03.9] Diagnosis: Mixed hyperlipidemia[ICD10: E78.2] Becki BLACK DO [facility] CPT-4: 95767 03/08/2019 Plan of Care Planned Activity Notes [...] Plan: CT HEAD/BRAIN W/O DYE LOINC : 40421-7 Pending 11/01/2019 Visit Diagnosis Plan: Essential (primary) [...] ICD-10 : S05.12XA 10/31/2019 Appointment: Jannette Mayen [address] [place], [place] [id number] Hospital Follow Up 10/31/2019 Patient Education: High Blood Pressure Co mpleted 10/31/2019 Patient Education: losartan- [employer] Coupon [id number] https://www.[employer]/sampleChicPlace/resources/getResource/61/[email or web address] Completed 10/31/2019 Appointment: Becki Black WPtel: [phone] [id number] FOLLOW UP 10/26/2019 Visit Diagnosis Plan: Radiculopathy of arm Discussion: flexeril prescribed to take as needed. will start at low dose but instructed patient to call office if not effective and will increase mg dose. PT ordered at [facility] to assist with pain. if no improvement or worsening from PT, will need imaging. ICD-9 : 723.4 ICD-10 : M54.10 10/11/2019 Visit Diagnosis Plan: Long-term (current ) use of anticoagulants, INR goal 2.0-3.0 Discussion: will update pt/inr ICD-9 : V58.61 ICD-10 : Z79.01 10/11/2019 Appointment: Jannette Mayen [address] [place], [place] [id number] ACUTE ILLNESS 10/11/2019 Patient Education: cyclobenzaprine- [employer] Coupon [id number] https://www.[employer]/sampleChicPlace/resources/getResource/61/[email or web address] Completed 10/11/2019 Visit Diagnosis Plan: Mixed hyperlipidemia [...] on right--dscussed stretches, massage, accupuncture---patient had hired employment law attorney ICD-9 : 906.1 ICD-10 : W54.0XXS 09/20/2019 Visit Diagnosis Plan: Encounter for [facility] adult medical examination without abnormal findings Discussion: Mediterranean diet Combinati on of cardio and weight bearing exercise Had flu shot Update mammogram ICD-9 : V70.9 ICD-10 : Z00.00 09/20/2019 Appointment: Becki Black WPtel: [address] [place], [place] [phone] Annual Well Visit 09/20/2019 Visit Diagnosis Plan: [...] ICD-10 : Z79.01 09/08/2019 Appointment: Jannette Mayen [address] [place], [place] [id number] ACUTE ILLNESS 09/08/2019 Appointment: Becki Black WPtel: [address] [place], [place] [phone] US CANCELED 08/16/2019 Appointment: Becki Black WPtel: [address] [place], [place] [phone] US LAB 07/29/2019 Appointment: Becki Black WPtel: [address] [place], [place] [phone] US LAB 07/18/2019 [facility] [phone] [facility] [facility] 07/06/2019 Visit Diagnosis Plan: Encounter [...] W54.0XXS 06/14/2019 App[facility]ment: [facility] [phone] [facility] [facility] FO[facility] 06/14/2019 Visit Diagnosis Plan: [...] hydrocodone several days ago. will refer to [facility] as well to discuss concerns. ICD-9 : 300.02 ICD-10 : F41.1 05/13/2019 Appointment: [facility] [address] [facility] FO[facility] 05/13/2019 Patient Education: carvedilol- [employer] Coupon [id number] https://www.[employer]/samplemd/resources/getResource/61/57a1c647-3eik-7003-6q Completed 05/13/2019 Patient Education: Xanax- [employer] Coupon [id number] https://www.[employer]/sampleChicPlace/resources/getResource/61/[email or web address]-i7 1e-[email or web address].pdf Completed 05/13/2019 Appointment: Beck[facility] Black [facility]el[facility] [phone] [facility] [facility] 05/06/2019 Visit Diagnosis Plan: Pain in right wrist Discussion: xray ordered of wrist to rule out acute fracture. will send results to dr. portillo at [facility]. ICD-9 : 719.43 ICD-10 : M25.531 05/02/2019 [...] : S40.811S 05/02/2019 Appointment: Jannette Mayen [address] ACUTE ILLNESS 05/02/2019 Care Plan: X-RAY EXAM OF WRIST right LOINC : 3 7302-7 Pending 05/02/2019 Appointment: Becki Black WPtel: [address] [place], [place] [phone] US LAB 04/07/2019 Appointment: Becki Black WPtel: [address] [place] [address] BP CHECK 03/22/2019 Visit Diagnosis Plan: Abnormal [...] : I48.2 03/08/2019 Appointment: Becki Black WPtel: [address] [place], [place] [phone] NEW PATIENT 03/08/2019 Instructions No Instructions Medical Equipment No Medical Equipment data Health Concerns Section Health Concerns data not found Goals Section Goals data not found Interventions Section Interventions data not found Health Status Evaluations/Outcomes Section Health Status Evaluations/Outcomes data not found Advance Directives No Advance Directive data
--- OUTSIDE RECORDS SUMMARY | 2019-11-24 06:53 | XMS REPORT | CCD ---
Author Author Tricia Black D.O. Organization [facility] Address [address] [place] [address] Phone Care Team Providers Care Insurance Territory Manager Name Role Phone PP Unavailable CCM Unavailable Summary Purpose Interface Exchange Insurance Providers Payer name Policy type / Coverage type Covered alliance party ID Effective Begin Date Effective End Date [employer] MEDICARE PART B [place] Medicare Part B [id number] Unknown Unknown [facility] Medicare Part B [id number] Unknown Unknown Family history Grandmother Diagnosis Age [...] Unknown Retired 03/08/[address]: 237388971 Has never smoked or chewed tobacco 03/08/[address]: 521412 Currently drinks alcohol 03/08 Has the patient [...] Fill Instructions losartan 50 mg tablet RxNorm: 208539 2 Tablet(s) Oral QD 11/01/2019 0 04/29/2020 Active potassium chloride ER 10 mEq capsule,extended release RxNorm : 736967 1 Capsule(s) Oral QD 10/26/2019 10/26/2019 Inactive potassium chloride ER 10 mEq tablet,extended release RxNorm: 571063 1 TABLET(S) ORAL QD 10/22/2019 04/18/2020 Active Replaces PA on 1 0MEQ Capsules Aspir-81 mg tablet,delayed release RxNorm: 361009 1 Tablet(s) O ral QD 10/11/2019 No Stop Date Active cyclobenzaprine 5 mg tablet RxNorm: 450619 1 Tablet(s) Oral two times a day as needed for muscle spasm 10/11/2019 No Stop Date Active Coumadin 4 mg tablet RxNorm: 998643 1 Tablet(s) Oral Mo through Thursday and 1/2 tablet (2mg) on Sat/Sun 10/11/2019 No Stop Date Active potassium chloride ER 10 mEq tablet,extended release RxNorm: 278996 1 Tablet(s) Oral QD 09/22/2019 09/21/2019 Inactive Replaces PA on 1 0MEQ Capsules potassium chloride ER 10 mEq tablet,extended release RxNorm: 951989 1 Tablet(s) Oral QD 09/22/2019 10/10/2019 Inactive Replaces PA on 1 0MEQ Capsules potassium chloride ER 10 mEq capsule,extended release RxNorm : 810451 1 Capsule(s) Oral QD 09/21/2019 09/21/2019 Inactive carvedilol 25 mg tablet RxNorm: 413116 1 Tablet(s) Oral two antolin es a day 08/23/2019 11/21/2019 Active isosorbide mononitrate ER 30 mg tablet,extended release 24 h r RxNorm: 243414 TABLET(S) 1 TABLET(S) PO NEEDED 08/22/2019 02/17/2020 Active Patient requests 90 days supply isosorbide mononitrate ER 30 mg tablet,extended release 24 h r RxNorm: 437792 Tablet(s) 1 TABLET(S) PO NEEDED 08/16/2019 08/21/2019 Inactive Patient requests 90 days supply levothyroxine 50 mcg tablet RxNorm: 361623 1 Tablet(s) PO QD 201802/03/2020 Active isosorbide mononitrate ER 30 mg tablet,extended release 24 h r RxNorm: 727761 Tablet(s) 1 TABLET(S) PO NEEDED 06/27/2019 08/15/2019 Inactive Patient requests 90 days supply isosorbide mononitrate ER 30 mg tablet,extended release 24 h r RxNorm: 035294 1 Tablet(s) PO QD as needed 06/27/2019 06/27/2019 Inactive Neris ent requests 90 days supply carvedilol 25 mg tablet RxNorm: 898837 1 TABLET(S) PO BID 06/27/2019 08/22/2019 Inactive furosemide 40 mg tablet RxNorm: 913723 1 Tablet(s) PO QAM 06/21/2019 12/17/2019 Active carvedilol 25 mg tablet RxNorm: 668048 1 Tablet(s) PO BID 05/13/2019 06/26/2019 Inactive Xanax 0.25 mg tablet RxNorm: 337249 1/2 Tablet(s) PO Q6H as needed 05/13/2019 09/07/2019 Inactive levothyroxine 50 mcg tablet RxNorm: 686193 1 Tablet(s) PO QD 201808/07/2019 Inactive losartan 50 mg tablet RxNorm: 706284 1 Tablet(s) PO QD 04/26/2019 Inactive losartan 50 mg tablet RxNorm: 985702 1 Tablet(s) PO QD 04/20/201901/2019 Inactive pravastatin 40 mg tablet RxNorm: 036396 1 Tablet(s) PO QD 04/07/2019 06/05/2019 Inactive isosorbide mononitrate ER 30 mg tablet,extended release 24 h r RxNorm: 269793 1 Tablet(s) PO as needed 04/07/2019 04/06/2019 Inactive isosorbide mononitrate ER 30 mg tablet,extended release 24 h r RxNorm: 355351 1 TABLET(S) PO NEEDED 04/07/2019 06/26/2019 Inactive Patient requests 90 days supply losartan 50 mg tablet RxNorm: 757763 1 Tablet(s) PO QD 03/22/2019 Inactive carvedilol 25 mg tablet RxNorm: 214497 1 Tablet(s) PO BID No Start Date 05/12/2019 Inactive losartan 50 mg tablet RxNorm: 333654 1 Tablet(s) PO QD No Start Date 03/21/2019 Inactive Ventolin HFA 90 mcg/actuation aerosol inhaler RxNorm: 533444 1-2 Puff(s) INH as needed No Start Date 09/07/2019 Inactive furosemide 40 mg tablet RxNorm: 653870 1 Tablet(s) PO QAM No Start Date 06/20/2019 Inactive pravastatin 40 mg tablet RxNorm: 588406 1 Tablet(s) PO QD No Start Date 04/06/2019 Inactive Coumadin 2 mg tablet RxNorm: 962515 1 Tablet(s) PO Mon, Fri, Sat and Sun then 2 tablets (4mg) on , Thu and No Start Date 10/10/2019 Inactive isosorbide mononitrate ER 30 mg tablet,extended release 24 h r RxNorm: 956268 Tablet(s) PO as needed No Start Date [...] ER 10 mEq capsule,extended release RxNorm : 363327 1 Capsule(s) PO QD No Start Date 09/20/2019 Inactive levothyroxine 50 mcg tablet RxNorm: 983106 1 Tablet(s) PO QD No Sta rt Date 04/25/2019 Inactive Medication Administered No Medication Administered data Immunizations Vaccine Codes Date Status Influenza CVX: 135 07/02/2019 Results Observation Observation Code Item Item Code Result Date S ervice Location PT 0621002 PT 31.4 Seconds 10/26/2019 Unknow n PT 5351026 INR 2.9 10/26/2019 Unknown PT 6825787 PT 17.6 Seconds 10/11/2019 Unknow n PT 5466930 INR 1.4 10/11/2019 Unknown PT 5416364 PT 23.7 Seconds 09/08/2019 Unknow n PT 9660783 INR 2.0 09/08/2019 Unknown PT 9738228 PT 23.2 Seconds 07/29/2019 Unknow n PT 1335549 INR 2.0 07/29/2019 Unknown PT 8791449 PT 14.3 Seconds 07/18/2019 Unknow n PT 7169916 INR 1.1 07/18/2019 [place] [address] Glucose 75 mg/dL 07/06 [place] [address] CREATININE 0.61 mg/dL [place] [address] BUN 15 mg/dL 07/06 [place] [address] SODIUM 142 mmol/L 06/23 [place] [address] POTASSIUM 4.0 mmol/L 06/23 [place] [address] CHLORIDE 106 mmol/L 06/23 [place] [address] Bicarbonate 28 mmol/[place] [address] AGAP 8 mmol/L 07/06 [place] [address] CALCIUM 9.3 mg/dL 07/06 Unknown PT 2495189 PT 17.4 Seconds 07/06/2019 Unknow n PT 4579738 INR 1.4 07/06/2019 Unknown GFR CALC 2670882 GFR Non Afr Amr >60 mL/min 07/06/2019 Un known GFR CALC 9220130 GFR Afr Amr >60 mL/min 07/06/2019 Unknow n COMPLETE BLOOD COUNT 7788785 WBC 4.7 10e9/L 07/06/20 19 Unknown COMPLETE BLOOD COUNT 4765495 RBC 4.19 10e12/L 2018 Unknown COMPLETE BLOOD COUNT 1824226 HEMOGLOBIN 12.6 g/dL 07/06/20 19 Unknown COMPLETE BLOOD COUNT 4392671 HEMATOCRIT 39.4 % 07/06/20 19 Unknown COMPLETE BLOOD COUNT 5173284 MCV 94.0 fL 9 Unknown COMPLETE BLOOD COUNT 2998871 MCH 30.1 pg 9 Unknown COMPLETE BLOOD COUNT 1019253 MCHC 32.0 g/dL 9 Unknown COMPLETE BLOOD COUNT 9151222 PLATELET COUNT 160 10e9/L Unknown COMPLETE BLOOD COUNT 0167836 Mean Plt Volume 11.0 fL Unknown COMPLETE BLOOD COUNT 0655169 Neut Auto 56.6 % 9 Unknown COMPLETE BLOOD COUNT 1019937 Lymph Auto 27.0 % 07/06/20 19 Unknown COMPLETE BLOOD COUNT 8591779 Vance Auto 13.7 % 9 Unknown COMPLETE BLOOD COUNT 8003253 RDW 14.6 % 9 Unknown COMPLETE BLOOD COUNT 8658338 Eos Auto 2.1 % 9 Unknown COMPLETE BLOOD COUNT 3205167 Baso Auto 0.6 % 9 Unknown COMPLETE BLOOD COUNT 3574988 Neutrophil Abs 2.66 10e9/L Unknown COMPLETE BLOOD COUNT 1094710 Lymphocyte Abs 1.27 10e9/L Unknown COMPLETE BLOOD COUNT 8476576 Monocyte Abs 0.64 10e9/L 06/23 Unknown COMPLETE BLOOD COUNT 2689592 Eosinophil Abs 0.10 10e9/L Unknown COMPLETE BLOOD COUNT 0627380 RDW-SD 48.7 fL 9 Unknown COMPLETE BLOOD COUNT 8168881 Basophil Abs 0.03 10e9/L 06/23 Unknown COMPLETE BLOOD COUNT 8379233 WBC 4.6 10e9/L 06/14/20 19 Unknown COMPLETE BLOOD COUNT 5407080 RBC 4.16 10e12/L 2018 Unknown COMPLETE BLOOD COUNT 7444642 HEMOGLOBIN 12.6 g/dL 06/14/20 19 Unknown COMPLETE BLOOD COUNT 3912480 HEMATOCRIT 39.1 % 06/14/20 19 Unknown COMPLETE BLOOD COUNT 5135704 MCV 94.0 fL 9 Unknown COMPLETE BLOOD COUNT 9239846 MCH 30.3 pg 9 Unknown COMPLETE BLOOD COUNT 6096877 MCHC 32.2 g/dL 9 Unknown COMPLETE BLOOD COUNT 8935205 PLATELET COUNT 167 10e9/L Unknown COMPLETE BLOOD COUNT 1647183 Mean Plt Volume 10.9 fL Unknown COMPLETE BLOOD COUNT 1886578 Neut Auto 59.6 % 9 Unknown COMPLETE BLOOD COUNT 5166633 Lymph Auto 24.1 % 06/14/20 19 Unknown COMPLETE BLOOD COUNT 8156070 Vance Auto 14.0 % 9 Unknown COMPLETE BLOOD COUNT 2767582 RDW 14.8 % 9 Unknown COMPLETE BLOOD COUNT 4699905 Eos Auto 1.9 % 9 Unknown COMPLETE BLOOD COUNT 6014085 Baso Auto 0.4 % 9 Unknown COMPLETE BLOOD COUNT 3464158 Neutrophil Abs 2.74 10e9/L Unknown COMPLETE BLOOD COUNT 0256627 Lymphocyte Abs 1.11 10e9/L Unknown COMPLETE BLOOD COUNT 0134710 Monocyte Abs 0.64 10e9/L 05/24 Unknown COMPLETE BLOOD COUNT 1378294 Eosinophil Abs 0.09 10e9/L Unknown COMPLETE BLOOD COUNT 7301863 RDW-SD 49.3 fL 9 Unknown COMPLETE BLOOD COUNT 8967422 Basophil Abs 0.02 10e9/L 05/24 Unknown PT 4157932 PT 22.3 Seconds 06/14/2019 Unknow n PT [id number] INR 1.9 06/14/2019 Unknown COMPLETE BLOOD COUNT 7126136 WBC 4.0 10e9/L 05/13/20 19 Unknown COMPLETE BLOOD COUNT 7538613 RBC 3.82 10e12/L 2018 Unknown COMPLETE BLOOD COUNT 4490430 HEMOGLOBIN 11.5 g/dL 05/13/20 19 Unknown COMPLETE BLOOD COUNT 1598796 HEMATOCRIT 36.4 % 05/13/20 19 Unknown COMPLETE BLOOD COUNT 8592891 MCV 95.3 fL 9 Unknown COMPLETE BLOOD COUNT 3990747 MCH 30.1 pg 9 Unknown COMPLETE BLOOD COUNT 6919115 MCHC 31.6 g/dL 9 Unknown COMPLETE BLOOD COUNT 5167315 PLATELET COUNT 175 10e9/L Unknown COMPLETE BLOOD COUNT 6865781 Mean Plt Volume 10.5 fL Unknown COMPLETE BLOOD COUNT 9485391 Neut Auto 63.2 % 9 Unknown COMPLETE BLOOD COUNT 1496309 Lymph Auto 22.0 % 05/13/20 19 Unknown COMPLETE BLOOD COUNT 8834478 Vance Auto 12.1 % 9 Unknown COMPLETE BLOOD COUNT 8723011 RDW 14.9 % 9 Unknown COMPLETE BLOOD COUNT 2861188 Eos Auto 2.2 % 9 Unknown COMPLETE BLOOD COUNT 9116913 Baso Auto 0.5 % 9 Unknown COMPLETE BLOOD COUNT 8668129 Neutrophil Abs 2.53 10e9/L Unknown COMPLETE BLOOD COUNT 7534275 Lymphocyte Abs 0.88 10e9/L Unknown COMPLETE BLOOD COUNT 5330234 Monocyte Abs 0.48 10e9/L 04/24 Unknown COMPLETE BLOOD COUNT 5411050 Eosinophil Abs 0.09 10e9/L Unknown COMPLETE BLOOD COUNT 1625633 RDW-SD 49.6 fL 9 Unknown COMPLETE BLOOD COUNT 5660591 Basophil Abs 0.02 10e9/L 04/24 Unknown COMPREHENSIVE METABOLIC 87815 AST 18 U/L 2018 Unknown COMPREHENSIVE METABOLIC 05481 ALT 14 U/L 2018 Unknown COMPREHENSIVE METABOLIC 36761 BUN 15 mg/dL 2018 Unknown COMPREHENSIVE METABOLIC 85505 ALBUMIN 4.0 g/dL 2018 Unknown COMPREHENSIVE METABOLIC 87941 CHLORIDE 108 mmol/L 05/13 Unknown COMPREHENSIVE METABOLIC 95295 Bili Total 0.9 mg/dL 05/13 Unknown COMPREHENSIVE METABOLIC 69158 ALK PHOS 84 U/L 2018 Unknown COMPREHENSIVE METABOLIC 43937 SODIUM 142 mmol/L 05/13 Unknown COMPREHENSIVE METABOLIC 82908 CREATININE 0.72 mg/dL 04/24 Unknown COMPREHENSIVE METABOLIC 93459 CALCIUM 8.9 mg/dL 2018 Unknown COMPREHENSIVE METABOLIC 65475 POTASSIUM 4.0 mmol/L 05/13 Unknown COMPREHENSIVE METABOLIC 68323 Total Protein 5.5 g/dL Unknown COMPREHENSIVE METABOLIC 59344 Glucose 95 mg/dL 2018 Unknown COMPREHENSIVE METABOLIC 94895 Bicarbonate 27 mmol/L 04/24 Unknown COMPREHENSIVE METABOLIC 06008 AGAP 7 mmol/L 2018 Unknown GFR CALC 3919301 GFR Non Afr Amr >60 mL/min 05/13/2019 Un known GFR CALC 0023012 GFR Afr Amr >60 mL/min 05/13/2019 Unknow n THYROID STIMULATING HORMONE 31351 TSH 2.669 uIU/mL 05/13/2019 Unknown FREE T4 36415 T4 Free 1.19 ng/dL 05/13/2019 Unknown PT 3752054 PT 24.2 Seconds 05/06/2019 Unknow n PT 2411181 INR 2.1 05/06/2019 Unknown PT 6861231 PT 24.1 Seconds 03/08/2019 Unknow n PT 4194714 INR 2.9 03/08/2019 Unknown Procedures Procedure Codes Date PROTHROMBIN TIME CPT-4: 53035 10/26/2019 ROUTINE VENIPUNCTURE CPT-4: 91188 10/26/2019 ROUTINE VENIPUNCTURE CPT-4: 60385 10/11/2019 PT CPT-4: 6279220 10/11/2019 PPPS, initial visit CPT-4: G0438 09/20/2019 ROUTINE VENIPUNCTURE CPT-4: 09000 09/08/2019 PT CPT-4: 6755872 09/08/2019 THER/PROPH/DIAG INJ SC/IM CPT-4: 80718 09/08/2019 TRIAMCINOLONE ACET INJ NOS CPT-4: J3301 09/08/2019 ROUTINE VENIPUNCTURE CPT-4: 03126 07/29/2019 PT CPT-4: 7746052 07/29/2019 ROUTINE VENIPUNCTURE CPT-4: 51370 07/18/2019 PT CPT-4: 0160279 07/18/2019 METABOLIC PANEL TOTAL CA CPT-4: 67869 07/06/2019 COMPLETE CBC W/AUTO DIFF WBC CPT-4: 46649 07/06/2019 PROTHROMBIN TIME CPT-4: 31695 07/06/2019 ROUTINE VENIPUNCTURE CPT-4: 87650 06/14/2019 PROTHROMBIN TIME CPT-4: 57615 06/14/2019 COMPLETE CBC W/AUTO DIFF WBC CPT-4: 00997 06/14/2019 ROUTINE VENIPUNCTURE CPT-4: 63876 05/13/2019 COMPREHEN METABOLIC PANEL CPT-4: 61896 05/13/2019 COMPLETE CBC W/AUTO DIFF WBC CPT-4: 55447 05/13/2019 ASSAY THYROID STIM HORMONE CPT-4: 95838 05/13/2019 ASSAY OF FREE THYROXINE CPT-4: 01151 05/13/2019 PT CPT-4: 0570948 05/06/2019 ROUTINE VENIPUNCTURE CPT-4: 97749 05/06/2019 PT CPT-4: 1398043 04/07/2019 ROUTINE VENIPUNCTURE CPT-4: 65298 04/07/2019 ROUTINE VENIPUNCTURE CPT-4: 61323 03/08/2019 PROTHROMBIN TIME CPT-4: 88537 03/08/2019 Vital Signs Date Vital 10/31/2019 Blood Pressure 1: 170/100 Code: 8480-6 Heart Rat e 1: 70 bpm Respiratory Rate: 18 bpm 10/11/2019 Blood Pressure 1: 132/78 Code: 8480-6 Heart Rate 1: 89 bpm SpO2: 99% Temperature: 36.7 (C) / 98.1 (F) Weight: 204 lbs 09/20/2019 Blood Pressure 1: 122/68 Code: 8480-6 BMI: 35.0 Code: 11223-2 Heart Rate 1: 72 bpm Height: 5'3" [...] 1: 114/78 Code: 8480-6 BMI: 36.1 Code: 12756-0 Heart Rate 1: 76 bpm Height: 5'3" [...] visit Encounters Encounter Performer Location Codes Date ([id number]) OFFICE/OUTPATIENT VISIT EST Diagnosis: Fall as cause of accidental injury at home as place of occurrence[ICD10: W19.XXXA] Diagnosis: Headache[ICD10: R51] Diagnosis: Essential (primary) hypertension[ICD10: I10] Diagnosis: Long-term (current) use of anticoagulants, INR goal 2.0-3.0[ICD10: Z79.01] Diagnosis: Ecchymosis of left eye[ICD10: S05.12XA] Jannette GUERRA [facility] CPT-4: 21383 10/31/2019 ([id number]) NURSE/OUTPATIENT VISIT EST Diagnosis: Long-term (current) use of anticoagulants, INR goal 2.0-3.0[ICD10: Z79.01] Becki Hernandez [facility] CPT-4: 32354 10/26/2019 ([id number]) OFFICE/OUTPATIENT VISIT EST Diagnosis: Long-term (current) use of anticoagulants, INR goal 2.0-3.0[ICD10: Z79.01] Diagnosis: Pain in right arm[ICD10: M79.601] Diagnosis: Radiculopathy of arm[ICD10: M54.10] Jannette HAMILTON [employer] CPT-4: 46451 10/11/2019 ([id number]) OFFICE/OUTPATIENT VISIT EST Diagnosis: Long-term (current) use of anticoagulants, INR goal 2.0-3.0[ICD10: Z79.01] Diagnosis: Sinusitis[ICD10: J32.9] Diagnosis: Pain in right arm[ICD10: M79.601] Jannette BLACK [facility] CPT-4: 81821 09/08/2019 ([id number]) NURSE/OUTPATIENT VISIT EST Diagnosis: Chronic atrial fibrillation[ICD10: I48.2] Diagnosis: Encounter for therapeutic drug level monitoring[ICD10: Z51.81] Becki BLACK [facility] CPT-4: 81451 07/29/2019 ([id number]) NURSE/OUTPATIENT VISIT EST Diagnosis: Chronic atrial fibrillation[ICD10: I48.2] Diagnosis: Encounter for therapeutic drug level monitoring[ICD10: Z51.81] Becki BLACK [facility] CPT-4: 33906 07/18/2019 ([id number]) NURSE/OUTPATIENT VISIT EST Diagnosis: Encounter for therapeutic drug level monitoring[ICD10: Z51.81] Diagnosis: Chronic atrial fibrillation[ICD10: I48.2] Diagnosis: Essential (primary) hypertension[ICD10: I10] Becki BLACK [facility] CPT-4: 70425 07/06/2019 ([id number]) OFFICE/OUTPATIENT VISIT EST Diagnosis: Encounter for therapeutic drug level monitoring[ICD10: Z51.81] Diagnosis: Anemia, unspecified[ICD10: D64.9] Diagnosis: Bitten by dog, sequela[ICD10: W54.0XXS] 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] Becki BLACK [facility] CPT-4: 06173 06/14/2019 ([id number]) OFFICE/OUTPATIENT VISIT EST Diagnosis: Bitten by dog, sequela[ICD10: W54.0XXS] Diagnosis: Other fatigue[ICD10: R53.83] Diagnosis: Hypothyroidism, unspecified[ICD10: E03.9] Diagnosis: Muscle weakness (generalized)[ICD10: M62.81] Diagnosis: Generalized anxiety disorder[ICD10: F41.1] Jannette BLACK [facility] CPT-4: 97340 05/13/2019 ([id number]) NURSE/OUTPATIENT VISIT EST Diagnosis: Encounter for therapeutic drug level monitoring[ICD10: Z51.81] Becki BLACK DO [facility] CPT-4: 21102 05/06/2019 ([id number]) OFFICE/OUTPATIENT VISIT EST Diagnosis: Bitten by dog, sequela[ICD10: W54.0XXS] Diagnosis: Pain in right wrist[ICD10: M25.531] Diagnosis: Abrasion of right upper arm, sequela[ICD10: S40.811S] Diagnosis: Abrasion of left upper arm, sequela[ICD10: S40.812S] Jannette BLACK [facility] CPT-4: 05999 05/02/2019 ([id number]) NURSE/OUTPATIENT VISIT EST Diagnosis: Encounter for therapeutic drug level monitoring[ICD10: Z51.81] Becki BLACK [facility] CPT-4: 14162 04/07/2019 ([id number]) OFFICE/OUTPATIENT VISIT NEW Diagnosis: Encounter for therapeutic drug level monitoring[ICD10: Z51.81] Diagnosis: Chronic atrial fibrillation[ICD10: I48.2] Diagnosis: Essential (primary) hypertension[ICD10: I10] Diagnosis: Abnormal findings on diagnostic imaging of heart and coronary circulation[ICD10: R93.1] Diagnosis: Other forms of dyspnea[ICD10: R06.09] Diagnosis: Hypothyroidism, unspecified[ICD10: E03.9] Diagnosis: Mixed hyperlipidemia[ICD10: E78.2] Becki BLACK [facility] CPT-4: 62376 03/08/2019 Plan of Care Planned Activity Notes Codes Status Date Care Plan: CT HEAD/BRAIN W/O DYE LOINC : 32868-0 Pending 11/01/2019 Visit Diagnosis Plan: Headache Discussion: [...] ICD-10 : I10 10/31/2019 Appointment: Jannette Mayen [address] [place] [address] Hospital Follow Up 10/31/2019 Patient Education: High Blood Pressure Co mpleted 10/31/2019 Patient Education: losartan- [employer] Coupon [id number] https://www.Revizer/sampleAppiphany/resources/getResource/61/1n829782-4m54-3607-0g Completed 10/31/2019 Appointment: Becki Black WPtel: [facility] FOLLOW UP 10/26/2019 Visit Diagnosis Plan: Radiculopathy of arm Discussion: flexeril prescribed to take as needed. will start at low dose but instructed patient to call office if not effective and will increase mg dose. PT ordered at [facility] to assist with pain. if no improvement or worsening from PT, will need imaging. ICD-9 : 723.4 ICD-10 : M54.10 10/11/2019 Visit Diagnosis Plan: Long-term (current ) use of anticoagulants, INR goal 2.0-3.0 Discussion: will update pt/inr ICD-9 : V58.61 ICD-10 : Z79.01 10/11/2019 Appointment: Jannette Mayen [address] [place], [place] [address] ACUTE ILLNESS 10/11/2019 Patient Education: cyclobenzaprine- [employer] Coupon [id number] https://www.[employer]izer/samplemd/resources/getResource/61/44n0s0v5-79w9-2h67-57 Completed 10/11/2019 Visit Diagnosis Plan: Mixed hyperlipidemia [...] on right--dscussed stretches, massage, accupuncture---patient had hired sports attorney ICD-9 : 906.1 ICD-10 : W54.0XXS 09/20/2019 Visit Diagnosis Plan: Encounter for [facility] adult medical examination without abnormal findings Discussion: Mediterranean diet Combinati on of cardio and weight bearing exercise Had flu shot Update mammogram ICD-9 : V70.9 ICD-10 : Z00.00 09/20/2019 Appointment: Becki Black WPtel: [phone] [facility] Annual Well Visit 09/20/2019 Visit Diagnosis Plan: [...] ICD-10 : Z79.01 09/08/2019 Appointment: Jannette Mayen [address] [place], [place] [address] ACUTE ILLNESS 09/08/2019 Appointment: Becki Black WPtel: [address] [place] [address] US CANCELED 08/16/2019 Appointment: Becki Black WPtel: [address] [place], [place] [phone] US LAB 07/29/2019 Appointment: Becki Black WPtel: [address] [place], [place] [phone] US LAB 07/18/2019 Appointment: Becki Black WPtel: [address] [place] [address] US LAB 07/06/2019 Visit Diagnosis Plan: Encounter [...] : W54.0XXS 06/14/2019 Appointment: Becki Black WPtel: [address] [place], [place] [phone] US FOLLOW UP 06/14/2019 Visit Diagnosis Plan: [...] hydrocodone several days ago. will refer to [facility] as well to discuss concerns. ICD-9 : 300.02 ICD-10 : F41.1 05/13/2019 Appointment: Jannette Mayen [address] [place], [place] [address] FOLLOW UP 05/13/2019 Patient Education: carvedilol- Opt[employer] Coupon [phone] https://www.Revizer/samplemd/resources/getResource/61/62o3x545-7tmy-0007-8c Completed 05/13/2019 Patient Education: Xanax- [employer] Coupon [id number] https://www.Revizer/samplemd/resources/getResource/61/9389k8m3-6n10-5y1g-v3 1e-4u50994600s2.pdf Completed 05/13/2019 [facility]ment[facility] [phone] [facility] [facility] 05/06/2019 Visit Diagnosis Plan: Pain in right wrist Discussion: xray ordered of wrist to rule out acute fracture. will send results to dr. portillo at [facility]. ICD-9 : 719.43 ICD-10 [...] ICD-10 : S40.811S 05/02/2019 Appointment: Jannette Mayen [address] [place] [address] ACUTE ILLNESS 05/02/2019 Care Plan: X-RAY EXAM OF WRIST right LOINC : 3 7302-7 Pending 05/02/2019 Appointment: Becki Black WPtel: [address] [place] [address] LAB 04/07/2019 Appointment: Becki Black WPtel: [address] [place] [address] BP CHECK 03/22/2019 Visit Diagnosis Plan: Abnormal [...] I10 03/08/2019 Appointment[facility] [address] [facility] [facility] 03/08/2019 Instructions No Instructions Medical Equipment No Medical Equipment data Health Concerns Section Health Concerns data not found Goals Section Goals data not found Interventions Section Interventions data not found Health Status Evaluations/Outcomes Section Health Status Evaluations/Outcomes data not found Advance Directives No Advance Directive data
--- OUTSIDE RECORDS SUMMARY | 2019-11-24 06:53 | XMS REPORT | CCD ---
Author Author Tricia Black D.O. Organization [facility] Address [address] [place] [address] Phone Care Team Providers Care Business Functional Analyst Name Role Phone PP Unavailable CCM Unavailable Summary Purpose Interface Exchange Insurance Providers Payer name Policy type / Coverage type Covered republican ID Effective Begin Date Effective End Date WPS MEDICARE PART B [place] Medicare Part B [id number] Unknown Unknown [facility] Medicare Part B [id number] Unknown Unknown Family history Grandmother Diagnosis Age [...] Unknown Retired 03/08/[address]: 454682046 Has never smoked or chewed tobacco 03/08/[address]: 424785 Currently drinks alcohol 03/08 Has the patient [...] Fill Instructions losartan 50 mg tablet RxNorm: 051616 2 Tablet(s) Oral QD 11/01/2019 0 04/29/2020 Active potassium chloride ER 10 mEq capsule,extended release RxNorm : 782224 1 Capsule(s) Oral QD 10/26/2019 10/26/2019 Inactive potassium chloride ER 10 mEq tablet,extended release RxNorm: 232846 1 TABLET(S) ORAL QD 10/22/2019 04/18/2020 Active Replaces PA on 1 0MEQ Capsules Aspir-81 mg tablet,delayed release RxNorm: 858446 1 Tablet(s) O ral QD 10/11/2019 No Stop Date Active cyclobenzaprine 5 mg tablet RxNorm: 323092 1 Tablet(s) Oral two times a day as needed for muscle spasm 10/11/2019 No Stop Date Active Coumadin 4 mg tablet RxNorm: 838782 1 Tablet(s) Oral Mo through Thursday and 1/2 tablet (2mg) on Sat/Sun 10/11/2019 No Stop Date Active potassium chloride ER 10 mEq tablet,extended release RxNorm: 430819 1 Tablet(s) Oral QD 09/22/2019 09/21/2019 Inactive Replaces PA on 1 0MEQ Capsules potassium chloride ER 10 mEq tablet,extended release RxNorm: 174645 1 Tablet(s) Oral QD 09/22/2019 10/10/2019 Inactive Replaces PA on 1 0MEQ Capsules potassium chloride ER 10 mEq capsule,extended release RxNorm : 073095 1 Capsule(s) Oral QD 09/21/2019 09/21/2019 Inactive carvedilol 25 mg tablet RxNorm: 969426 1 Tablet(s) Oral two antolin es a day 08/23/2019 11/21/2019 Active isosorbide mononitrate ER 30 mg tablet,extended release 24 h r RxNorm: 172736 TABLET(S) 1 TABLET(S) PO NEEDED 08/22/2019 02/17/2020 Active Patient requests 90 days supply isosorbide mononitrate ER 30 mg tablet,extended release 24 h r RxNorm: 079739 Tablet(s) 1 TABLET(S) PO NEEDED 08/16/2019 08/21/2019 Inactive Patient requests 90 days supply levothyroxine 50 mcg tablet RxNorm: 571481 1 Tablet(s) PO QD 201802/03/2020 Active isosorbide mononitrate ER 30 mg tablet,extended release 24 h r RxNorm: 056882 Tablet(s) 1 TABLET(S) PO NEEDED 06/27/2019 08/15/2019 Inactive Patient requests 90 days supply isosorbide mononitrate ER 30 mg tablet,extended release 24 h r RxNorm: 315789 1 Tablet(s) PO QD as needed 06/27/2019 06/27/2019 Inactive Neris ent requests 90 days supply carvedilol 25 mg tablet RxNorm: 307739 1 TABLET(S) PO BID 06/27/2019 08/22/2019 Inactive furosemide 40 mg tablet RxNorm: 942174 1 Tablet(s) PO QAM 06/21/2019 12/17/2019 Active carvedilol 25 mg tablet RxNorm: 564359 1 Tablet(s) PO BID 05/13/2019 06/26/2019 Inactive Xanax 0.25 mg tablet RxNorm: 444585 1/2 Tablet(s) PO Q6H as needed 05/13/2019 09/07/2019 Inactive levothyroxine 50 mcg tablet RxNorm: 090369 1 Tablet(s) PO QD 201808/07/2019 Inactive losartan 50 mg tablet RxNorm: 598234 1 Tablet(s) PO QD 04/26/2019 Inactive losartan 50 mg tablet RxNorm: 212456 1 Tablet(s) PO QD 04/20/201901/2019 Inactive pravastatin 40 mg tablet RxNorm: 510832 1 Tablet(s) PO QD 04/07/2019 06/05/2019 Inactive isosorbide mononitrate ER 30 mg tablet,extended release 24 h r RxNorm: 640061 1 Tablet(s) PO as needed 04/07/2019 04/06/2019 Inactive isosorbide mononitrate ER 30 mg tablet,extended release 24 h r RxNorm: 629561 1 TABLET(S) PO NEEDED 04/07/2019 06/26/2019 Inactive Patient requests 90 days supply losartan 50 mg tablet RxNorm: 181073 1 Tablet(s) PO QD 03/22/2019 Inactive carvedilol 25 mg tablet RxNorm: 869274 1 Tablet(s) PO BID No Start Date 05/12/2019 Inactive losartan 50 mg tablet RxNorm: 254578 1 Tablet(s) PO QD No Start Date 03/21/2019 Inactive Ventolin HFA 90 mcg/actuation aerosol inhaler RxNorm: 215242 1-2 Puff(s) INH as needed No Start Date 09/07/2019 Inactive furosemide 40 mg tablet RxNorm: 381514 1 Tablet(s) PO QAM No Start Date 06/20/2019 Inactive pravastatin 40 mg tablet RxNorm: 291053 1 Tablet(s) PO QD No Start Date 04/06/2019 Inactive Coumadin 2 mg tablet RxNorm: 256276 1 Tablet(s) PO Mon, Fri, Sat and Sun then 2 tablets (4mg) on , Thu and No Start Date 10/10/2019 Inactive isosorbide mononitrate ER 30 mg tablet,extended release 24 h r RxNorm: 564391 Tablet(s) PO as needed No Start Date [...] ER 10 mEq capsule,extended release RxNorm : 404047 1 Capsule(s) PO QD No Start Date 09/20/2019 Inactive levothyroxine 50 mcg tablet RxNorm: 255849 1 Tablet(s) PO QD No Sta rt Date 04/25/2019 Inactive Medication Administered No Medication Administered data Immunizations Vaccine Codes Date Status Influenza CVX: 135 07/02/2019 Results Observation Observation Code Item Item Code Result Date S ervice Location PT 5643465 PT 31.4 Seconds 10/26/2019 Unknow n PT 9460852 INR 2.9 10/26/2019 Unknown PT 9471690 PT 17.6 Seconds 10/11/2019 Unknow n PT 6390365 INR 1.4 10/11/2019 Unknown PT 5920384 PT 23.7 Seconds 09/08/2019 Unknow n PT 9792352 INR 2.0 09/08/2019 Unknown PT 5617776 PT 23.2 Seconds 07/29/2019 Unknow n PT [id number] INR 2.0 07/29/2019 Unknown PT 8191997 PT 14.3 Seconds 07/18/2019 Unknow n PT 7979882 INR 1.1 07/18/2019 [place] [address] Glucose 75 mg/dL 07/06 [place] [address] CREATININE 0.61 mg/dL [place] [address] BUN 15 mg/dL 07/06 [place] [address] SODIUM 142 mmol/L 06/23 [place] [address] POTASSIUM 4.0 mmol/L 06/23 [place] [address] CHLORIDE 106 mmol/L 06/23 [place] [address] Bicarbonate 28 mmol/L [place] [address] AGAP 8 mmol/L 07/06 [place] [address] CALCIUM 9.3 mg/dL 07/06 Unknown PT 2265344 PT 17.4 Seconds 07/06/2019 Unknow n PT 5367213 INR 1.4 07/06/2019 Unknown GFR CALC 9213461 GFR Non Afr Amr >60 mL/min 07/06/2019 Un known GFR CALC 5600781 GFR Afr Amr >60 mL/min 07/06/2019 Unknow n COMPLETE BLOOD COUNT 8954892 WBC 4.7 10e9/L 07/06/20 19 Unknown COMPLETE BLOOD COUNT 5223466 RBC 4.19 10e12/L 2018 Unknown COMPLETE BLOOD COUNT 3844728 HEMOGLOBIN 12.6 g/dL 07/06/20 19 Unknown COMPLETE BLOOD COUNT 9312328 HEMATOCRIT 39.4 % 07/06/20 19 Unknown COMPLETE BLOOD COUNT 7122567 MCV 94.0 fL 9 Unknown COMPLETE BLOOD COUNT 4706867 MCH 30.1 pg 9 Unknown COMPLETE BLOOD COUNT 8454820 MCHC 32.0 g/dL 9 Unknown COMPLETE BLOOD COUNT 7795012 PLATELET COUNT 160 10e9/L Unknown COMPLETE BLOOD COUNT 9163469 Mean Plt Volume 11.0 fL Unknown COMPLETE BLOOD COUNT 7960293 Neut Auto 56.6 % 9 Unknown COMPLETE BLOOD COUNT 7398031 Lymph Auto 27.0 % 07/06/20 19 Unknown COMPLETE BLOOD COUNT 0986327 [place] Auto 13.7 % 9 Unknown COMPLETE BLOOD COUNT 7380653 RDW 14.6 % 9 Unknown COMPLETE BLOOD COUNT 0712307 Eos Auto 2.1 % 9 Unknown COMPLETE BLOOD COUNT 6982903 Baso Auto 0.6 % 9 Unknown COMPLETE BLOOD COUNT 7603356 Neutrophil Abs 2.66 10e9/L Unknown COMPLETE BLOOD COUNT 4484716 Lymphocyte Abs 1.27 10e9/L Unknown COMPLETE BLOOD COUNT 9596399 Monocyte Abs 0.64 10e9/L 06/23 Unknown COMPLETE BLOOD COUNT 8185808 Eosinophil Abs 0.10 10e9/L Unknown COMPLETE BLOOD COUNT 8956022 Basophil Abs 0.03 10e9/L 06/23 Unknown COMPLETE BLOOD COUNT 6058864 RDW-SD 48.7 fL 9 Unknown COMPLETE BLOOD COUNT 3584979 WBC 4.6 10e9/L 06/14/20 19 Unknown COMPLETE BLOOD COUNT 1250741 RBC 4.16 10e12/L 2018 Unknown COMPLETE BLOOD COUNT 0501824 HEMOGLOBIN 12.6 g/dL 06/14/20 19 Unknown COMPLETE BLOOD COUNT 6174025 HEMATOCRIT 39.1 % 06/14/20 19 Unknown COMPLETE BLOOD COUNT 0773745 MCV 94.0 fL 9 Unknown COMPLETE BLOOD COUNT 9933253 MCH 30.3 pg 9 Unknown COMPLETE BLOOD COUNT 1686846 MCHC 32.2 g/dL 9 Unknown COMPLETE BLOOD COUNT 5920473 PLATELET COUNT 167 10e9/L Unknown COMPLETE BLOOD COUNT 9406865 Mean Plt Volume 10.9 fL Unknown COMPLETE BLOOD COUNT 7588480 Neut Auto 59.6 % 9 Unknown COMPLETE BLOOD COUNT 0491561 Lymph Auto 24.1 % 06/14/20 19 Unknown COMPLETE BLOOD COUNT 8804166 [place] Auto 14.0 % 9 Unknown COMPLETE BLOOD COUNT 1284790 RDW 14.8 % 9 Unknown COMPLETE BLOOD COUNT 8657854 Eos Auto 1.9 % 9 Unknown COMPLETE BLOOD COUNT 3654241 Baso Auto 0.4 % 9 Unknown COMPLETE BLOOD COUNT 1853918 Neutrophil Abs 2.74 10e9/L Unknown COMPLETE BLOOD COUNT 7283910 Lymphocyte Abs 1.11 10e9/L Unknown COMPLETE BLOOD COUNT 3794926 Monocyte Abs 0.64 10e9/L 05/24 Unknown COMPLETE BLOOD COUNT 8104546 Eosinophil Abs 0.09 10e9/L Unknown COMPLETE BLOOD COUNT 5436541 Basophil Abs 0.02 10e9/L 05/24 Unknown COMPLETE BLOOD COUNT 2389076 RDW-SD 49.3 fL 9 Unknown PT 1479018 PT 22.3 Seconds 06/14/2019 Unknow n PT 5442242 INR 1.9 06/14/2019 Unknown COMPLETE BLOOD COUNT 5389286 WBC 4.0 10e9/L 05/13/20 19 Unknown COMPLETE BLOOD COUNT 2861577 RBC 3.82 10e12/L 2018 Unknown COMPLETE BLOOD COUNT 6293625 HEMOGLOBIN 11.5 g/dL 05/13/20 19 Unknown COMPLETE BLOOD COUNT 7154184 HEMATOCRIT 36.4 % 05/13/20 19 Unknown COMPLETE BLOOD COUNT 9154492 MCV 95.3 fL 9 Unknown COMPLETE BLOOD COUNT 3653083 MCH 30.1 pg 9 Unknown COMPLETE BLOOD COUNT 5925275 MCHC 31.6 g/dL 9 Unknown COMPLETE BLOOD COUNT 5212585 PLATELET COUNT 175 10e9/L Unknown COMPLETE BLOOD COUNT 2785668 Mean Plt Volume 10.5 fL Unknown COMPLETE BLOOD COUNT 5356744 Neut Auto 63.2 % 9 Unknown COMPLETE BLOOD COUNT 9042074 Lymph Auto 22.0 % 05/13/20 19 Unknown COMPLETE BLOOD COUNT 2619784 [place] Auto 12.1 % 9 Unknown COMPLETE BLOOD COUNT 2242002 Eos Auto 2.2 % 9 Unknown COMPLETE BLOOD COUNT 8883766 RDW 14.9 % 9 Unknown COMPLETE BLOOD COUNT 1130032 Baso Auto 0.5 % 9 Unknown COMPLETE BLOOD COUNT 9115278 Neutrophil Abs 2.53 10e9/L Unknown COMPLETE BLOOD COUNT 2252953 Lymphocyte Abs 0.88 10e9/L Unknown COMPLETE BLOOD COUNT 6872433 Monocyte Abs 0.48 10e9/L 04/24 Unknown COMPLETE BLOOD COUNT 6330250 Eosinophil Abs 0.09 10e9/L Unknown COMPLETE BLOOD COUNT 3867172 Basophil Abs 0.02 10e9/L 04/24 Unknown COMPLETE BLOOD COUNT 5747421 RDW-SD 49.6 fL 9 Unknown COMPREHENSIVE METABOLIC 30423 AST 18 U/L 2018 Unknown COMPREHENSIVE METABOLIC 42714 ALT 14 U/L 2018 Unknown COMPREHENSIVE METABOLIC 13462 BUN 15 mg/dL 2018 Unknown COMPREHENSIVE METABOLIC 97217 ALBUMIN 4.0 g/dL 2018 Unknown COMPREHENSIVE METABOLIC 56163 CHLORIDE 108 mmol/L 05/13 Unknown COMPREHENSIVE METABOLIC 16005 Bili Total 0.9 mg/dL 05/13 Unknown COMPREHENSIVE METABOLIC 21452 ALK PHOS 84 U/L 2018 Unknown COMPREHENSIVE METABOLIC 04056 SODIUM 142 mmol/L 05/13 Unknown COMPREHENSIVE METABOLIC 11131 CREATININE 0.72 mg/dL 04/24 Unknown COMPREHENSIVE METABOLIC 36549 CALCIUM 8.9 mg/dL 2018 Unknown COMPREHENSIVE METABOLIC 58635 POTASSIUM 4.0 mmol/L 05/13 Unknown COMPREHENSIVE METABOLIC 02764 Total Protein 5.5 g/dL Unknown COMPREHENSIVE METABOLIC 98187 Glucose 95 mg/dL 2018 Unknown COMPREHENSIVE METABOLIC 61661 Bicarbonate 27 mmol/L 04/24 Unknown COMPREHENSIVE METABOLIC 26425 AGAP 7 mmol/L 2018 Unknown GFR CALC 4777564 GFR Non Afr Amr >60 mL/min 05/13/2019 Un known GFR CALC 8497214 GFR Afr Amr >60 mL/min 05/13/2019 Unknow n THYROID STIMULATING HORMONE 40322 TSH 2.669 uIU/mL 05/13/2019 Unknown FREE T4 15309 T4 Free 1.19 ng/dL 05/13/2019 Unknown PT 3275631 PT 24.2 Seconds 05/06/2019 Unknow n PT 5368522 INR 2.1 05/06/2019 Unknown PT 9495901 PT 24.1 Seconds 03/08/2019 Unknow n PT 3441345 INR 2.9 03/08/2019 Unknown Procedures Procedure Codes Date PROTHROMBIN TIME CPT-4: 26194 10/26/2019 ROUTINE VENIPUNCTURE CPT-4: 34823 10/26/2019 ROUTINE VENIPUNCTURE CPT-4: 70807 10/11/2019 PT CPT-4: 1288812 10/11/2019 PPPS, initial visit CPT-4: G0438 09/20/2019 ROUTINE VENIPUNCTURE CPT-4: 53324 09/08/2019 PT CPT-4: 5472073 09/08/2019 THER/PROPH/DIAG INJ SC/IM CPT-4: 93894 09/08/2019 TRIAMCINOLONE ACET INJ NOS CPT-4: J3301 09/08/2019 ROUTINE VENIPUNCTURE CPT-4: 94551 07/29/2019 PT CPT-4: 6704299 07/29/2019 ROUTINE VENIPUNCTURE CPT-4: 37725 07/18/2019 PT CPT-4: 9801488 07/18/2019 METABOLIC PANEL TOTAL CA CPT-4: 14772 07/06/2019 COMPLETE CBC W/AUTO DIFF WBC CPT-4: 13885 07/06/2019 PROTHROMBIN TIME CPT-4: 13046 07/06/2019 ROUTINE VENIPUNCTURE CPT-4: 87598 06/14/2019 PROTHROMBIN TIME CPT-4: 48072 06/14/2019 COMPLETE CBC W/AUTO DIFF WBC CPT-4: 76592 06/14/2019 ROUTINE VENIPUNCTURE CPT-4: 24555 05/13/2019 COMPREHEN METABOLIC PANEL CPT-4: 52882 05/13/2019 COMPLETE CBC W/AUTO DIFF WBC CPT-4: 85630 05/13/2019 ASSAY THYROID STIM HORMONE CPT-4: 23962 05/13/2019 ASSAY OF FREE THYROXINE CPT-4: 84473 05/13/2019 PT CPT-4: 8376599 05/06/2019 ROUTINE VENIPUNCTURE CPT-4: 55641 05/06/2019 PT CPT-4: 2186336 04/07/2019 ROUTINE VENIPUNCTURE CPT-4: 62038 04/07/2019 ROUTINE VENIPUNCTURE CPT-4: 43109 03/08/2019 PROTHROMBIN TIME CPT-4: 96513 03/08/2019 Vital Signs Date Vital 10/31/2019 Blood Pressure 1: 170/100 Code: 8480-6 Heart Rat e 1: 70 bpm Respiratory Rate: 18 bpm 10/11/2019 Blood Pressure 1: 132/78 Code: 8480-6 Heart Rate 1: 89 bpm SpO2: 99% Temperature: 36.7 (C) / 98.1 (F) Weight: 204 lbs 09/20/2019 Blood Pressure 1: 122/68 Code: 8480-6 BMI: 35.0 Code: 32346-4 Heart Rate 1: 72 bpm Height: 5'3" [...] 1: 114/78 Code: 8480-6 BMI: 36.1 Code: 99450-3 Heart Rate 1: 76 bpm Height: 5'3" [...] visit Encounters Encounter Performer Location Codes Date (07506) OFFICE/OUTPATIENT VISIT EST Diagnosis: Fall as cause of accidental injury at home as place of occurrence[ICD10: W19.XXXA] Diagnosis: Headache[ICD10: R51] Diagnosis: Essential (primary) hypertension[ICD10: I10] Diagnosis: Long-term (current) use of anticoagulants, INR goal 2.0-3.0[ICD10: Z79.01] Diagnosis: Ecchymosis of left eye[ICD10: S05.12XA] Jannette GUERRA [employer] CPT-4: 43101 10/31/2019 ([id number]) NURSE/OUTPATIENT VISIT EST Diagnosis: Long-term (current) use of anticoagulants, INR goal 2.0-3.0[ICD10: Z79.01] Becki Hernandez [employer] CPT-4: 31894 10/26/2019 ([id number]) OFFICE/OUTPATIENT VISIT EST Diagnosis: Long-term (current) use of anticoagulants, INR goal 2.0-3.0[ICD10: Z79.01] Diagnosis: Pain in right arm[ICD10: M79.601] Diagnosis: Radiculopathy of arm[ICD10: M54.10] Jannette HAMILTON [employer] CPT-4: 76468 10/11/2019 ([id number]) OFFICE/OUTPATIENT VISIT EST Diagnosis: Long-term (current) use of anticoagulants, INR goal 2.0-3.0[ICD10: Z79.01] Diagnosis: Sinusitis[ICD10: J32.9] Diagnosis: Pain in right arm[ICD10: M79.601] Jannette BLACK [employer] CPT-4: 54559 09/08/2019 ([id number]) NURSE/OUTPATIENT VISIT EST Diagnosis: Chronic atrial fibrillation[ICD10: I48.2] Diagnosis: Encounter for therapeutic drug level monitoring[ICD10: Z51.81] Becki BLACK [employer] CPT-4: 95889 07/29/2019 ([id number]) NURSE/OUTPATIENT VISIT EST Diagnosis: Chronic atrial fibrillation[ICD10: I48.2] Diagnosis: Encounter for therapeutic drug level monitoring[ICD10: Z51.81] Becki BLACK [employer] CPT-4: 69040 07/18/2019 ([id number]) NURSE/OUTPATIENT VISIT EST Diagnosis: Encounter for therapeutic drug level monitoring[ICD10: Z51.81] Diagnosis: Chronic atrial fibrillation[ICD10: I48.2] Diagnosis: Essential (primary) hypertension[ICD10: I10] Becki BLACK [employer] CPT-4: 17016 07/06/2019 ([id number]) OFFICE/OUTPATIENT VISIT EST Diagnosis: Encounter for therapeutic drug level monitoring[ICD10: Z51.81] Diagnosis: Anemia, unspecified[ICD10: D64.9] Diagnosis: Bitten by dog, sequela[ICD10: W54.0XXS] 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] Becki BLACK [employer] CPT-4: 02736 06/14/2019 ([id number]) OFFICE/OUTPATIENT VISIT EST Diagnosis: Bitten by dog, sequela[ICD10: W54.0XXS] Diagnosis: Other fatigue[ICD10: R53.83] Diagnosis: Hypothyroidism, unspecified[ICD10: E03.9] Diagnosis: Muscle weakness (generalized)[ICD10: M62.81] Diagnosis: Generalized anxiety disorder[ICD10: F41.1] Jannette BLACK [employer] CPT-4: 09616 05/13/2019 ([id number]) NURSE/OUTPATIENT VISIT EST Diagnosis: Encounter for therapeutic drug level monitoring[ICD10: Z51.81] Becki BLACK DO [employer] CPT-4: 52415 05/06/2019 ([id number]) OFFICE/OUTPATIENT VISIT EST Diagnosis: Bitten by dog, sequela[ICD10: W54.0XXS] Diagnosis: Pain in right wrist[ICD10: M25.531] Diagnosis: Abrasion of right upper arm, sequela[ICD10: S40.811S] Diagnosis: Abrasion of left upper arm, sequela[ICD10: S40.812S] Jannette BLACK [employer] CPT-4: 94667 05/02/2019 ([id number]) NURSE/OUTPATIENT VISIT EST Diagnosis: Encounter for therapeutic drug level monitoring[ICD10: Z51.81] Becki BLACK [employer] CPT-4: 29538 04/07/2019 ([id number]) OFFICE/OUTPATIENT VISIT NEW Diagnosis: Encounter for therapeutic drug level monitoring[ICD10: Z51.81] Diagnosis: Chronic atrial fibrillation[ICD10: I48.2] Diagnosis: Essential (primary) hypertension[ICD10: I10] Diagnosis: Abnormal findings on diagnostic imaging of heart and coronary circulation[ICD10: R93.1] Diagnosis: Other forms of dyspnea[ICD10: R06.09] Diagnosis: Hypothyroidism, unspecified[ICD10: E03.9] Diagnosis: Mixed hyperlipidemia[ICD10: E78.2] Becki BLACK [employer] CPT-4: 65511 03/08/2019 Plan of Care Planned Activity Notes Codes Status Date Care Plan: CT HEAD/BRAIN W/O DYE LOINC : 33703-5 Pending 11/01/2019 Visit Diagnosis Plan: Headache Discussion: [...] ICD-10 : I10 10/31/2019 Appointment: Jannette Mayen [address] [place] [address] Hospital Follow Up 10/31/2019 Patient Education: High Blood Pressure Co mpleted 10/31/2019 Patient Education: losartan- [employer] Coupon [id number] https://www.[employer]er/[employer]/resources/getResource/61/9w766199-7l62-2742-7t Completed 10/31/2019 Appointment: Becki Black WPtel: [facility]4 [facility] FOLLOW UP 10/26/2019 Visit Diagnosis Plan: Radiculopathy of arm Discussion: flexeril prescribed to take as needed. will start at low dose but instructed patient to call office if not effective and will increase mg dose. PT ordered at [facility] to assist with pain. if no improvement or worsening from PT, will need imaging. ICD-9 : 723.4 ICD-10 : M54.10 10/11/2019 Visit Diagnosis Plan: Long-term (current ) use of anticoagulants, INR goal 2.0-3.0 Discussion: will update pt/inr ICD-9 : V58.61 ICD-10 : Z79.01 10/11/2019 Appointment: Jannette Mayen [address] [place], [place] [id number] ACUTE ILLNESS 10/11/2019 Patient Education: cyclobenzaprine- [employer] Coupon [id number] https://www.[employer]Xer/samplemd/resources/getResource/61/48j4d6j4-50f1-9z96-39 Completed 10/11/2019 Visit Diagnosis Plan: Mixed hyperlipidemia [...] W54.0XXS 09/20/2019 Visit Diagnosis Plan: [facility] medical examination without abnormal findings Discussion: Mediterranean diet Combinati on of cardio and weight bearing exercise Had flu shot Update mammogram ICD-9 : V70.9 ICD-10 : Z00.00 09/20/2019 Appointment: Becki Black WPtel: [phone] [facility] Annual Well Visit 09/20/2019 Visit Diagnosis [...] ICD-10 : Z79.01 09/08/2019 Appointment: Jannette Mayen [address] [place], [place] [address] ACUTE ILLNESS 09/08/2019 Appointment: Becki Black WPtel: [address] [place] [address] US CANCELED 08/16/2019 Appointment: Becki Black WPtel: [address] [place], [place] [id number] US LAB 07/29/2019 Appointment: Becki Black WPtel: [address] [place], [place] [id number] US LAB 07/18/2019 Appointment: Becki Black WPtel: [address] [place] [address] US LAB 07/06/2019 Visit Diagnosis Plan: Encounter [...] : W54.0XXS 06/14/2019 Appointment: Becki Black WPtel: [address] [place], [place] [id number] US FOLLOW UP 06/14/2019 Visit Diagnosis Plan: [...] hydrocodone several days ago. will refer to [facility] as well to discuss concerns. ICD-9 : 300.02 ICD-10 : F41.1 05/13/2019 Appointment: Jannette Mayen [address] [place], [place] [address] FOLLOW UP 05/13/2019 Patient Education: carvedilol- [employer] Coupon [id number] https://www.tenXer/samplemd/resources/getResource/61/24o4w996-4dth-9587-2b Completed 05/13/2019 Patient Education: Xanax- [employer] Coupon [id number] https://www.tenXer/samplemd/resources/getResource/61/9276y9a8-0w49-9g7i-h6 1e-9r50910129w7.pdf Completed 05/13/2019 [facility]ment[facility] [phone] [facility] [facility] 05/06/2019 Visit Diagnosis Plan: Pain in right wrist Discussion: xray ordered of wrist to rule out acute fracture. will send results to dr. portillo at [facility]. ICD-9 : 719.43 ICD-10 : M25.531 05/02/2019 [...] ICD-10 : S40.811S 05/02/2019 Appointment: Jannette Mayen [address] [place] [address] ACUTE ILLNESS 05/02/2019 Care Plan: X-RAY EXAM OF WRIST right LOINC : 3 7302-7 Pending 05/02/2019 Appointment: Becki Black WPtel: [address] [place] [address] LAB 04/07/2019 Appointment: Becki Black WPtel: [address] [place] [address] BP CHECK 03/22/2019 Visit Diagnosis Plan: Abnormal [...] I48.2 03/08/2019 Appointment: [facility] [phone] [facility] NEW PATIENT 03/08/2019 Instructions No Instructions Medical Equipment No Medical Equipment data Health Concerns Section Health Concerns data not found Goals Section Goals data not found Interventions Section Interventions data not found Health Status Evaluations/Outcomes Section Health Status Evaluations/Outcomes data not found Advance Directives No Advance Directive data
--- OUTSIDE RECORDS SUMMARY | 2019-11-24 06:53 | XMS REPORT | CCD ---
Author Author Tricia Black D.O. Organization [facility] Address [address] [place] [address] Phone Care Team Providers Care Data Center Technician Name Role Phone PP Unavailable CCM Unavailable Summary Purpose Interface Exchange Insurance Providers Payer name Policy type / Coverage type Covered alliance party ID Effective Begin Date Effective End Date W[employer] MEDICARE PART B [place] Medicare Part B [id number] Unknown Unknown [facility] Medicare Part B [id number] Unknown Unknown Family history Grandmother Diagnosis Age [...] Unknown Retired 03/08/[address]: [id number] Has never smoked or chewed tobacco 03/08/[address]: 386806 Currently drinks alcohol 03/08 Has the patient [...] Fill Instructions losartan 50 mg tablet RxNorm: 115324 2 Tablet(s) Oral QD 11/01/2019 0 04/29/2020 Active potassium chloride ER 10 mEq capsule,extended release RxNorm : 244618 1 Capsule(s) Oral QD 10/26/2019 10/26/2019 Inactive potassium chloride ER 10 mEq tablet,extended release RxNorm: 298391 1 TABLET(S) ORAL QD 10/22/2019 04/18/2020 Active Replaces PA on 1 0MEQ Capsules Aspir-81 mg tablet,delayed release RxNorm: 976767 1 Tablet(s) O ral QD 10/11/2019 No Stop Date Active cyclobenzaprine 5 mg tablet RxNorm: 134012 1 Tablet(s) Oral two times a day as needed for muscle spasm 10/11/2019 No Stop Date Active Coumadin 4 mg tablet RxNorm: 974443 1 Tablet(s) Oral Mo through Thursday and 1/2 tablet (2mg) on Sat/Sun 10/11/2019 No Stop Date Active potassium chloride ER 10 mEq tablet,extended release RxNorm: 168859 1 Tablet(s) Oral QD 09/22/2019 09/21/2019 Inactive Replaces PA on 1 0MEQ Capsules potassium chloride ER 10 mEq tablet,extended release RxNorm: 030071 1 Tablet(s) Oral QD 09/22/2019 10/10/2019 Inactive Replaces PA on 1 0MEQ Capsules potassium chloride ER 10 mEq capsule,extended release RxNorm : 375028 1 Capsule(s) Oral QD 09/21/2019 09/21/2019 Inactive carvedilol 25 mg tablet RxNorm: 649487 1 Tablet(s) Oral two antolin es a day 08/23/2019 11/21/2019 Active isosorbide mononitrate ER 30 mg tablet,extended release 24 h r RxNorm: 098439 TABLET(S) 1 TABLET(S) PO NEEDED 08/22/2019 02/17/2020 Active Patient requests 90 days supply isosorbide mononitrate ER 30 mg tablet,extended release 24 h r RxNorm: 633581 Tablet(s) 1 TABLET(S) PO NEEDED 08/16/2019 08/21/2019 Inactive Patient requests 90 days supply levothyroxine 50 mcg tablet RxNorm: 834931 1 Tablet(s) PO QD 201802/03/2020 Active isosorbide mononitrate ER 30 mg tablet,extended release 24 h r RxNorm: 348989 Tablet(s) 1 TABLET(S) PO NEEDED 06/27/2019 08/15/2019 Inactive Patient requests 90 days supply isosorbide mononitrate ER 30 mg tablet,extended release 24 h r RxNorm: 526492 1 Tablet(s) PO QD as needed 06/27/2019 06/27/2019 Inactive Neris ent requests 90 days supply carvedilol 25 mg tablet RxNorm: 106284 1 TABLET(S) PO BID 06/27/2019 08/22/2019 Inactive furosemide 40 mg tablet RxNorm: 170231 1 Tablet(s) PO QAM 06/21/2019 12/17/2019 Active carvedilol 25 mg tablet RxNorm: 924759 1 Tablet(s) PO BID 05/13/2019 06/26/2019 Inactive Xanax 0.25 mg tablet RxNorm: 374955 1/2 Tablet(s) PO Q6H as needed 05/13/2019 09/07/2019 Inactive levothyroxine 50 mcg tablet RxNorm: 842080 1 Tablet(s) PO QD 201808/07/2019 Inactive losartan 50 mg tablet RxNorm: 852235 1 Tablet(s) PO QD 04/26/2019 Inactive losartan 50 mg tablet RxNorm: 443004 1 Tablet(s) PO QD 04/20/201901/2019 Inactive pravastatin 40 mg tablet RxNorm: 556858 1 Tablet(s) PO QD 04/07/2019 06/05/2019 Inactive isosorbide mononitrate ER 30 mg tablet,extended release 24 h r RxNorm: 151454 1 Tablet(s) PO as needed 04/07/2019 04/06/2019 Inactive isosorbide mononitrate ER 30 mg tablet,extended release 24 h r RxNorm: 291523 1 TABLET(S) PO NEEDED 04/07/2019 06/26/2019 Inactive Patient requests 90 days supply losartan 50 mg tablet RxNorm: 403909 1 Tablet(s) PO QD 03/22/2019 Inactive carvedilol 25 mg tablet RxNorm: 413878 1 Tablet(s) PO BID No Start Date 05/12/2019 Inactive losartan 50 mg tablet RxNorm: 474097 1 Tablet(s) PO QD No Start Date 03/21/2019 Inactive Ventolin HFA 90 mcg/actuation aerosol inhaler RxNorm: 452353 1-2 Puff(s) INH as needed No Start Date 09/07/2019 Inactive furosemide 40 mg tablet RxNorm: 130066 1 Tablet(s) PO QAM No Start Date 06/20/2019 Inactive pravastatin 40 mg tablet RxNorm: 053132 1 Tablet(s) PO QD No Start Date 04/06/2019 Inactive Coumadin 2 mg tablet RxNorm: 475829 1 Tablet(s) PO Mon, Fri, Sat and Sun then 2 tablets (4mg) on , Thu and No Start Date 10/10/2019 Inactive isosorbide mononitrate ER 30 mg tablet,extended release 24 h r RxNorm: 211579 Tablet(s) PO as needed No Start Date [...] ER 10 mEq capsule,extended release RxNorm : 532441 1 Capsule(s) PO QD No Start Date 09/20/2019 Inactive levothyroxine 50 mcg tablet RxNorm: 969303 1 Tablet(s) PO QD No Sta rt Date 04/25/2019 Inactive Medication Administered No Medication Administered data Immunizations Vaccine Codes Date Status Influenza CVX: 135 07/02/2019 Results Observation Observation Code Item Item Code Result Date S ervice Location PT 5270072 PT 31.4 Seconds 10/26/2019 Unknow n PT 0943853 INR 2.9 10/26/2019 Unknown PT 5242033 PT 17.6 Seconds 10/11/2019 Unknow n PT 5329229 INR 1.4 10/11/2019 Unknown PT 1899631 PT 23.7 Seconds 09/08/2019 Unknow n PT 2687801 INR 2.0 09/08/2019 Unknown PT 4297302 PT 23.2 Seconds 07/29/2019 Unknow n PT [id number] INR 2.0 07/29/2019 Unknown PT 6037384 PT 14.3 Seconds 07/18/2019 Unknow n PT 4133994 INR 1.1 07/18/2019 [place] [address] Glucose 75 mg/dL 07/06 [place] [address] CREATININE 0.61 mg/dL [place] [address] BUN 15 mg/dL 07/06 [place] [address] SODIUM 142 mmol/L 06/23 [place] [address] POTASSIUM 4.0 mmol/L 06/23 [place] [address] CHLORIDE 106 mmol/L 06/23 [place] [address] Bicarbonate 28 mmol/L [place] [address] AGAP 8 mmol/L 07/06 [place] [address] CALCIUM 9.3 mg/dL 07/06 Unknown PT 5990709 PT 17.4 Seconds 07/06/2019 Unknow n PT 6885394 INR 1.4 07/06/2019 Unknown GFR CALC 0055048 GFR Non Afr Amr >60 mL/min 07/06/2019 Un known GFR CALC 7419947 GFR Afr Amr >60 mL/min 07/06/2019 Unknow n COMPLETE BLOOD COUNT 5295005 WBC 4.7 10e9/L 07/06/20 19 Unknown COMPLETE BLOOD COUNT 9633502 RBC 4.19 10e12/L 2018 Unknown COMPLETE BLOOD COUNT 4072518 HEMOGLOBIN 12.6 g/dL 07/06/20 19 Unknown COMPLETE BLOOD COUNT 9976875 HEMATOCRIT 39.4 % 07/06/20 19 Unknown COMPLETE BLOOD COUNT 1475370 MCV 94.0 fL 9 Unknown COMPLETE BLOOD COUNT 7114432 MCH 30.1 pg 9 Unknown COMPLETE BLOOD COUNT 1719715 MCHC 32.0 g/dL 9 Unknown COMPLETE BLOOD COUNT 1651186 PLATELET COUNT 160 10e9/L Unknown COMPLETE BLOOD COUNT 6809136 Mean Plt Volume 11.0 fL Unknown COMPLETE BLOOD COUNT 0748530 Neut Auto 56.6 % 9 Unknown COMPLETE BLOOD COUNT 3412058 Lymph Auto 27.0 % 07/06/20 19 Unknown COMPLETE BLOOD COUNT 3674835 Haakon Auto 13.7 % 9 Unknown COMPLETE BLOOD COUNT 8729651 RDW 14.6 % 9 Unknown COMPLETE BLOOD COUNT 6465486 Eos Auto 2.1 % 9 Unknown COMPLETE BLOOD COUNT 6217528 Baso Auto 0.6 % 9 Unknown COMPLETE BLOOD COUNT 7001969 Neutrophil Abs 2.66 10e9/L Unknown COMPLETE BLOOD COUNT 0164540 Lymphocyte Abs 1.27 10e9/L Unknown COMPLETE BLOOD COUNT 1871239 Monocyte Abs 0.64 10e9/L 06/23 Unknown COMPLETE BLOOD COUNT 1716200 Eosinophil Abs 0.10 10e9/L Unknown COMPLETE BLOOD COUNT 0940291 RDW-SD 48.7 fL 9 Unknown COMPLETE BLOOD COUNT 7993125 Basophil Abs 0.03 10e9/L 06/23 Unknown COMPLETE BLOOD COUNT 2013131 WBC 4.6 10e9/L 06/14/20 19 Unknown COMPLETE BLOOD COUNT 8318151 RBC 4.16 10e12/L 2018 Unknown COMPLETE BLOOD COUNT 2946574 HEMOGLOBIN 12.6 g/dL 06/14/20 19 Unknown COMPLETE BLOOD COUNT 7400077 HEMATOCRIT 39.1 % 06/14/20 19 Unknown COMPLETE BLOOD COUNT 6920822 MCV 94.0 fL 9 Unknown COMPLETE BLOOD COUNT 7943256 MCH 30.3 pg 9 Unknown COMPLETE BLOOD COUNT 3652898 MCHC 32.2 g/dL 9 Unknown COMPLETE BLOOD COUNT 2084188 PLATELET COUNT 167 10e9/L Unknown COMPLETE BLOOD COUNT 9980088 Mean Plt Volume 10.9 fL Unknown COMPLETE BLOOD COUNT 4644384 Neut Auto 59.6 % 9 Unknown COMPLETE BLOOD COUNT 6583440 Lymph Auto 24.1 % 06/14/20 19 Unknown COMPLETE BLOOD COUNT 6037603 Haakon Auto 14.0 % 9 Unknown COMPLETE BLOOD COUNT 4936273 RDW 14.8 % 9 Unknown COMPLETE BLOOD COUNT 4881861 Eos Auto 1.9 % 9 Unknown COMPLETE BLOOD COUNT 1061541 Baso Auto 0.4 % 9 Unknown COMPLETE BLOOD COUNT 3989431 Neutrophil Abs 2.74 10e9/L Unknown COMPLETE BLOOD COUNT 1654467 Lymphocyte Abs 1.11 10e9/L Unknown COMPLETE BLOOD COUNT 8483990 Monocyte Abs 0.64 10e9/L 05/24 Unknown COMPLETE BLOOD COUNT 7735330 Eosinophil Abs 0.09 10e9/L Unknown COMPLETE BLOOD COUNT 1220318 RDW-SD 49.3 fL 9 Unknown COMPLETE BLOOD COUNT 2104660 Basophil Abs 0.02 10e9/L 05/24 Unknown PT 3425465 PT 22.3 Seconds 06/14/2019 Unknow n PT 0939686 INR 1.9 06/14/2019 Unknown COMPLETE BLOOD COUNT 4821812 WBC 4.0 10e9/L 05/13/20 19 Unknown COMPLETE BLOOD COUNT 4873085 RBC 3.82 10e12/L 2018 Unknown COMPLETE BLOOD COUNT 0300913 HEMOGLOBIN 11.5 g/dL 05/13/20 19 Unknown COMPLETE BLOOD COUNT 0536785 HEMATOCRIT 36.4 % 05/13/20 19 Unknown COMPLETE BLOOD COUNT 6739563 MCV 95.3 fL 9 Unknown COMPLETE BLOOD COUNT 1007328 MCH 30.1 pg 9 Unknown COMPLETE BLOOD COUNT 0146698 MCHC 31.6 g/dL 9 Unknown COMPLETE BLOOD COUNT 2770399 PLATELET COUNT 175 10e9/L Unknown COMPLETE BLOOD COUNT 3228302 Mean Plt Volume 10.5 fL Unknown COMPLETE BLOOD COUNT 0109546 Neut Auto 63.2 % 9 Unknown COMPLETE BLOOD COUNT 0309660 Lymph Auto 22.0 % 05/13/20 19 Unknown COMPLETE BLOOD COUNT 9464256 Haakon Auto 12.1 % 9 Unknown COMPLETE BLOOD COUNT 3471031 RDW 14.9 % 9 Unknown COMPLETE BLOOD COUNT 8664297 Eos Auto 2.2 % 9 Unknown COMPLETE BLOOD COUNT 4094271 Baso Auto 0.5 % 9 Unknown COMPLETE BLOOD COUNT 5179136 Neutrophil Abs 2.53 10e9/L Unknown COMPLETE BLOOD COUNT 7072726 Lymphocyte Abs 0.88 10e9/L Unknown COMPLETE BLOOD COUNT 2580786 Monocyte Abs 0.48 10e9/L 04/24 Unknown COMPLETE BLOOD COUNT 7978644 Eosinophil Abs 0.09 10e9/L Unknown COMPLETE BLOOD COUNT 2842725 RDW-SD 49.6 fL 9 Unknown COMPLETE BLOOD COUNT 3203323 Basophil Abs 0.02 10e9/L 04/24 Unknown COMPREHENSIVE METABOLIC 29070 AST 18 U/L 2018 Unknown COMPREHENSIVE METABOLIC 59127 ALT 14 U/L 2018 Unknown COMPREHENSIVE METABOLIC 12387 BUN 15 mg/dL 2018 Unknown COMPREHENSIVE METABOLIC 95432 ALBUMIN 4.0 g/dL 2018 Unknown COMPREHENSIVE METABOLIC 83228 CHLORIDE 108 mmol/L 05/13 Unknown COMPREHENSIVE METABOLIC 21281 Bili Total 0.9 mg/dL 05/13 Unknown COMPREHENSIVE METABOLIC 31174 ALK PHOS 84 U/L 2018 Unknown COMPREHENSIVE METABOLIC 67398 SODIUM 142 mmol/L 05/13 Unknown COMPREHENSIVE METABOLIC 97440 CREATININE 0.72 mg/dL 04/24 Unknown COMPREHENSIVE METABOLIC 67032 CALCIUM 8.9 mg/dL 2018 Unknown COMPREHENSIVE METABOLIC 98565 POTASSIUM 4.0 mmol/L 05/13 Unknown COMPREHENSIVE METABOLIC 84812 Total Protein 5.5 g/dL Unknown COMPREHENSIVE METABOLIC 42338 Glucose 95 mg/dL 2018 Unknown COMPREHENSIVE METABOLIC 04016 Bicarbonate 27 mmol/L 04/24 Unknown COMPREHENSIVE METABOLIC 00317 AGAP 7 mmol/L 2018 Unknown GFR CALC 2459435 GFR Non Afr Amr >60 mL/min 05/13/2019 Un known GFR CALC 1555854 GFR Afr Amr >60 mL/min 05/13/2019 Unknow n THYROID STIMULATING HORMONE 09792 TSH 2.669 uIU/mL 05/13/2019 Unknown FREE T4 73498 T4 Free 1.19 ng/dL 05/13/2019 Unknown PT 7840368 PT 24.2 Seconds 05/06/2019 Unknow n PT 8413506 INR 2.1 05/06/2019 Unknown PT 6757010 PT 24.1 Seconds 03/08/2019 Unknow n PT 8583525 INR 2.9 03/08/2019 Unknown Procedures Procedure Codes Date PROTHROMBIN TIME CPT-4: 97533 10/26/2019 ROUTINE VENIPUNCTURE CPT-4: 23166 10/26/2019 ROUTINE VENIPUNCTURE CPT-4: 76104 10/11/2019 PT CPT-4: 0706007 10/11/2019 PPPS, initial visit CPT-4: G0438 09/20/2019 ROUTINE VENIPUNCTURE CPT-4: 95375 09/08/2019 PT CPT-4: 6029455 09/08/2019 THER/PROPH/DIAG INJ SC/IM CPT-4: 31760 09/08/2019 TRIAMCINOLONE ACET INJ NOS CPT-4: J3301 09/08/2019 ROUTINE VENIPUNCTURE CPT-4: 56404 07/29/2019 PT CPT-4: 1361362 07/29/2019 ROUTINE VENIPUNCTURE CPT-4: 35359 07/18/2019 PT CPT-4: 5161953 07/18/2019 METABOLIC PANEL TOTAL CA CPT-4: 92483 07/06/2019 COMPLETE CBC W/AUTO DIFF WBC CPT-4: 74696 07/06/2019 PROTHROMBIN TIME CPT-4: 30034 07/06/2019 ROUTINE VENIPUNCTURE CPT-4: 88617 06/14/2019 PROTHROMBIN TIME CPT-4: 99970 06/14/2019 COMPLETE CBC W/AUTO DIFF WBC CPT-4: 04313 06/14/2019 ROUTINE VENIPUNCTURE CPT-4: 25939 05/13/2019 COMPREHEN METABOLIC PANEL CPT-4: 41783 05/13/2019 COMPLETE CBC W/AUTO DIFF WBC CPT-4: 10293 05/13/2019 ASSAY THYROID STIM HORMONE CPT-4: 17935 05/13/2019 ASSAY OF FREE THYROXINE CPT-4: 89619 05/13/2019 PT CPT-4: 5107861 05/06/2019 ROUTINE VENIPUNCTURE CPT-4: 02318 05/06/2019 PT CPT-4: 7628875 04/07/2019 ROUTINE VENIPUNCTURE CPT-4: 01329 04/07/2019 ROUTINE VENIPUNCTURE CPT-4: 53920 03/08/2019 PROTHROMBIN TIME CPT-4: 60411 03/08/2019 Vital Signs Date Vital 10/31/2019 Blood Pressure 1: 170/100 Code: 8480-6 Heart Rat e 1: 70 bpm Respiratory Rate: 18 bpm 10/11/2019 Blood Pressure 1: 132/78 Code: 8480-6 Heart Rate 1: 89 bpm SpO2: 99% Temperature: 36.7 (C) / 98.1 (F) Weight: 204 lbs 09/20/2019 Blood Pressure 1: 122/68 Code: 8480-6 BMI: 35.0 Code: 12469-4 Heart Rate 1: 72 bpm Height: 5'3" [...] 1: 114/78 Code: 8480-6 BMI: 36.1 Code: 08949-2 Heart Rate 1: 76 bpm Height: 5'3" [...] visit Encounters Encounter Performer Location Codes Date (32015) OFFICE/OUTPATIENT VISIT EST Diagnosis: Fall as cause of accidental injury at home as place of occurrence[ICD10: W19.XXXA] Diagnosis: Headache[ICD10: R51] Diagnosis: Essential (primary) hypertension[ICD10: I10] Diagnosis: Long-term (current) use of anticoagulants, INR goal 2.0-3.0[ICD10: Z79.01] Diagnosis: Ecchymosis of left eye[ICD10: S05.12XA] Jannette GUERRA [email or web address] CPT-4: 21841 10/31/2019 ([id number]) NURSE/OUTPATIENT VISIT EST Diagnosis: Long-term (current) use of anticoagulants, INR goal 2.0-3.0[ICD10: Z79.01] Becki Hernandez [email or web address] CPT-4: 29271 10/26/2019 ([id number]) OFFICE/OUTPATIENT VISIT EST Diagnosis: Long-term (current) use of anticoagulants, INR goal 2.0-3.0[ICD10: Z79.01] Diagnosis: Pain in right arm[ICD10: M79.601] Diagnosis: Radiculopathy of arm[ICD10: M54.10] Jannette HAMILTON [email or web address] CPT-4: 86534 10/11/2019 ([id number]) OFFICE/OUTPATIENT VISIT EST Diagnosis: Long-term (current) use of anticoagulants, INR goal 2.0-3.0[ICD10: Z79.01] Diagnosis: Sinusitis[ICD10: J32.9] Diagnosis: Pain in right arm[ICD10: M79.601] Jannette BLACK [employer] CPT-4: 77496 09/08/2019 ([id number]) NURSE/OUTPATIENT VISIT EST Diagnosis: Chronic atrial fibrillation[ICD10: I48.2] Diagnosis: Encounter for therapeutic drug level monitoring[ICD10: Z51.81] Becki BLACK [employer] CPT-4: 01632 07/29/2019 ([id number]) NURSE/OUTPATIENT VISIT EST Diagnosis: Chronic atrial fibrillation[ICD10: I48.2] Diagnosis: Encounter for therapeutic drug level monitoring[ICD10: Z51.81] Becki BLACK [employer] CPT-4: 81008 07/18/2019 ([id number]) NURSE/OUTPATIENT VISIT EST Diagnosis: Encounter for therapeutic drug level monitoring[ICD10: Z51.81] Diagnosis: Chronic atrial fibrillation[ICD10: I48.2] Diagnosis: Essential (primary) hypertension[ICD10: I10] Becki BLACK [employer] CPT-4: 60947 07/06/2019 ([id number]) OFFICE/OUTPATIENT VISIT EST Diagnosis: Encounter for therapeutic drug level monitoring[ICD10: Z51.81] Diagnosis: Anemia, unspecified[ICD10: D64.9] Diagnosis: Bitten by dog, sequela[ICD10: W54.0XXS] 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] Becki BLACK [employer] CPT-4: 73395 06/14/2019 ([id number]) OFFICE/OUTPATIENT VISIT EST Diagnosis: Bitten by dog, sequela[ICD10: W54.0XXS] Diagnosis: Other fatigue[ICD10: R53.83] Diagnosis: Hypothyroidism, unspecified[ICD10: E03.9] Diagnosis: Muscle weakness (generalized)[ICD10: M62.81] Diagnosis: Generalized anxiety disorder[ICD10: F41.1] Jannette BLACK [employer] CPT-4: 88648 05/13/2019 ([id number]) NURSE/OUTPATIENT VISIT EST Diagnosis: Encounter for therapeutic drug level monitoring[ICD10: Z51.81] Becki BLACK DO [facility] CPT-4: 77283 05/06/2019 ([id number]) OFFICE/OUTPATIENT VISIT EST Diagnosis: Bitten by dog, sequela[ICD10: W54.0XXS] Diagnosis: Pain in right wrist[ICD10: M25.531] Diagnosis: Abrasion of right upper arm, sequela[ICD10: S40.811S] Diagnosis: Abrasion of left upper arm, sequela[ICD10: S40.812S] Jannette BLACK [employer] CPT-4: 67089 05/02/2019 ([id number]) NURSE/OUTPATIENT VISIT EST Diagnosis: Encounter for therapeutic drug level monitoring[ICD10: Z51.81] Becki BLACK [employer] CPT-4: 55610 04/07/2019 ([id number]) OFFICE/OUTPATIENT VISIT NEW Diagnosis: Encounter for therapeutic drug level monitoring[ICD10: Z51.81] Diagnosis: Chronic atrial fibrillation[ICD10: I48.2] Diagnosis: Essential (primary) hypertension[ICD10: I10] Diagnosis: Abnormal findings on diagnostic imaging of heart and coronary circulation[ICD10: R93.1] Diagnosis: Other forms of dyspnea[ICD10: R06.09] Diagnosis: Hypothyroidism, unspecified[ICD10: E03.9] Diagnosis: Mixed hyperlipidemia[ICD10: E78.2] Becki BLACK [employer] CPT-4: 97327 03/08/2019 Plan of Care Planned Activity Notes Codes Status Date Care Plan: CT HEAD/BRAIN W/O DYE LOINC : 79940-4 Pending 11/01/2019 Visit Diagnosis Plan: Headache Discussion: [...] ICD-10 : I10 10/31/2019 Appointment: Jannette Mayen [address] [place] [address] Hospital Follow Up 10/31/2019 Patient Education: High Blood Pressure Co mpleted 10/31/2019 Patient Education: losartan- [employer] Coupon [id number] https://www.Authorly/[employer]/resources/getResource/61/5r998667-8n78-1344-0c Completed 10/31/2019 Appointment: Becki Black WPtel: [facility] FOLLOW UP 10/26/2019 Visit Diagnosis Plan: Radiculopathy of arm Discussion: flexeril prescribed to take as needed. will start at low dose but instructed patient to call office if not effective and will increase mg dose. PT ordered at [facility] to assist with pain. if no improvement or worsening from PT, will need imaging. ICD-9 : 723.4 ICD-10 : M54.10 10/11/2019 Visit Diagnosis Plan: Long-term (current ) use of anticoagulants, INR goal 2.0-3.0 Discussion: will update pt/inr ICD-9 : V58.61 ICD-10 : Z79.01 10/11/2019 Appointment: Jannette Mayen [address] [place], [place] [address] ACUTE ILLNESS 10/11/2019 Patient Education: cyclobenzaprine- [employer] Coupon [id number] https://www.Author[employer]/samplemd/resources/getResource/61/53r3f9s3-96l0-7u97-71 Completed 10/11/2019 Visit Diagnosis Plan: Mixed hyperlipidemia [...] on right--dscussed stretches, massage, accupuncture---patient had hired employee benefits attorney ICD-9 : 906.1 ICD-10 : W54.0XXS 09/20/2019 Visit Diagnosis Plan: Encounter for [facility] adult medical examination without abnormal findings Discussion: Mediterranean diet Combinati on of cardio and weight bearing exercise Had flu shot Update mammogram ICD-9 : V70.9 ICD-10 : Z00.00 09/20/2019 Appointment: Becki Black WPtel: [phone] [facility] Annual Well Visit 09/20/2019 Visit [...] : Z79.01 09/08/2019 Appointment: Jannette Mayen [address] [place], [place] [id number] ACUTE ILLNESS 09/08/2019 Appointment: Becki Black WPtel: [address] [place] [address] US CANCELED 08/16/2019 Appointment: Becki Black WPtel: [address] [place], [place] [id number] US LAB 07/29/2019 Appointment: Becki Black WPtel: [address] [place], [place] [phone] US LAB 07/18/2019 Appointment: Becki Black WPtel: [address] [place] [address] US LAB 07/06/2019 Visit Diagnosis Plan: Encounter [...] : W54.0XXS 06/14/2019 Appointment: Becki Black WPtel: [address] [place], [place] [id number] US FOLLOW UP 06/14/2019 Visit Diagnosis Plan: [...] ICD-10 : F41.1 05/13/2019 Appointment: Jannette Mayen [address] [place], [place] [address] FOLLOW UP 05/13/2019 Patient Education: carvedilol- [employer] Coupon [phone] https://www.Authorly/samplemd/resources/getResource/61/67v6d986-0csa-1638-2k Completed 05/13/2019 Patient Education: Xanax- [employer] Coupon [id number] https://www.Authorly/samplemd/resources/getResource/61/7731j5b3-1l91-8e2m-c8 1e-4p31520008o2.pdf Completed 05/13/2019 [facility]ment: [facility]el[facility] [phone] [facility] [facility] 05/06/2019 Visit Diagnosis Plan: Pain in right wrist Discussion: xray ordered of wrist to rule out acute fracture. will send results to dr. portillo at [facility]. ICD-9 : 719.43 ICD-10 : M25.531 05/02/2019 [...] ICD-10 : S40.811S 05/02/2019 Appointment: Jannette Mayen [address] [place] [address] ACUTE ILLNESS 05/02/2019 Care Plan: X-RAY EXAM OF WRIST right LOINC : 3 7302-7 Pending 05/02/2019 Appointment: Becki Black WPtel: [address] [place] [address] LAB 04/07/2019 Appointment: Becki Black WPtel: [address] [place] [address] BP CHECK 03/22/2019 Visit Diagnosis Plan: Abnormal [...] I48.2 03/08/2019 Appointment: Beck[facility] Black [facility]el[facility] [phone] [facility] NEW PATIENT 03/08/2019 Instructions No Instructions Medical Equipment No Medical Equipment data Health Concerns Section Health Concerns data not found Goals Section Goals data not found Interventions Section Interventions data not found Health Status Evaluations/Outcomes Section Health Status Evaluations/Outcomes data not found Advance Directives No Advance Directive data
--- OUTSIDE RECORDS SUMMARY | 2019-11-24 06:54 | XMS REPORT | CCD ---
Author Author Tricia Black D.O. Organization [facility] Address [address] [place] [address] Phone Care Team Providers Care Tobacco Stemmer Machine Name Role Phone PP Unavailable CCM Unavailable Summary Purpose Interface Exchange Insurance Providers Payer name Policy type / Coverage type Covered libertarian ID Effective Begin Date Effective End Date WPS MEDICARE PART B [place] Medicare Part B [id number] Unknown Unknown United [employer] Medicare Part B [id number] Unknown Unknown Family history Grandmother Diagnosis Age At Onset Myocardial infarction Unknown Son Diagnosis Age At Onset Prostate Cancer Unknown Father Diagnosis Age At Onset Lung Cancer Unknown Daughter Diagnosis Age At Onset Breast cancer Unknown Mother Diagnosis Age At Onset Hypertension Unknown Myocardial infarction Unknown Social History Social History Element Codes Description Effective Dates Marital status Unknown D ivorced 03/08/2019 Number of children Unknown 3 03/08/2019 Employment Unknown Retir ed 03/08/[address]: 691703943 Has never smoked or chewed tobacco 03/08/[address]: 660287 Currently drinks alcohol 03/08/2019 Has the patient ever used illegal drugs? Unknown Has never used illegal drugs 019 Allergies, Adverse Reactions, Alerts Substance Reaction Codes Entered Date Inactivated Date Status * NO KNOWN FOOD YIMI RGIES Unknown 03/08/2019 No Inactive Date Active * NO KNOWN ENVIRONME NTAL ALLERGIES Unknown 03/08/2019 No Inactive Date Active _ Unknown 03/08/2019 No Inactive Date Active Past Medical History Illness Codes Condition Status Onset Date Resolved Date Chronic atrial fibri llation ICD-9: 427.31 ICD-10: I48.2 Active 03/08/2019 Unknown Encounter for therap eutic drug level monitoring ICD-9: V58.83 ICD-10: Z51.81 Active 03/08/2019 Unknown Essential (primary) hypertension ICD-9: 401.9 ICD-10: I10 Active 03/08/2019 Unknown Anemia, unspecified ICD- 9: 285.9 ICD-10: D64.9 Active 06/14/2019 Unknown Bitten by dog, sequela ICD-9: 906.1 ICD-10: W54.0XXS Active 05/02/2019 Unknown 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 ICD-10: L90.5 Active 06/14/2019 Unknown Generalized anxiety disorder ICD-9: 300.02 ICD-10: F41.1 Active 05/13/2019 Unknown Hypothyroidism, unsp ecified ICD-9: 244.9 ICD-10: E03.9 Active 03/08/2019 Unknown Muscle weakness (gen eralized) ICD-9: 728.87 ICD-10: M62.81 Active 05/13/2019 Unknown Other fatigue ICD-9: 780.79 ICD-10: R53.83 Active 05/13/2019 Unknown Abrasion of left upp er arm, sequela ICD-9: 906.2 ICD-10: S40.812S Active 05/02/2019 Unknown Abrasion of right up per arm, sequela ICD-9: 906.2 ICD-10: S40.811S Active 05/02/2019 Unknown Pain in right wrist ICD- 9: 719.43 ICD-10: M25.531 Active 05/02/2019 Unknown Hypertension Unknown Active 03/08/2019 Unknow n Abnormal findings on diagnostic imaging of heart and coronary circulation ICD-9: 794.39 ICD-10: R93.1 Active 03/08/2019 Unknown Mixed hyperlipidemia ICD-9: 272.4 ICD-10: E78.2 Active 03/08/2019 Unknown Other forms of dyspnea ICD-9: 786.09 ICD-10: R06.09 Active 03/08/2019 Unknown Problems Condition Codes Effectiv e Dates Condition Status Chronic atrial fibri llation ICD-9: 427.31 ICD-10: I48.2 03/08/2019 Active Encounter for therap eutic drug level monitoring ICD-9: V58.83 ICD-10: Z51.81 03/08/2019 Active Essential (primary) hypertension ICD-9: 401.9 ICD-10: I10 03/08/2019 Active Anemia, unspecified ICD- 9: 285.9 ICD-10: D64.9 06/14/2019 Active Bitten by dog, sequela ICD-9: 906.1 ICD-10: W54.0XXS 05/02/2019 Active 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.2 ICD-10: L90.5 06/14/2019 Active Generalized anxiety disorder ICD-9: 300.02 ICD-10: F41.1 05/13/2019 Active Hypothyroidism, unsp ecified ICD-9: 244.9 ICD-10: E03.9 03/08/2019 Active Muscle weakness (gen eralized) ICD-9: 728.87 ICD-10: M62.81 05/13/2019 Active Other fatigue ICD-9: 780.79 ICD-10: R53.83 05/13/2019 Active Abrasion of left upp er arm, sequela ICD-9: 906.2 ICD-10: S40.812S 05/02/2019 Active Abrasion of right up per arm, sequela ICD-9: 906.2 ICD-10: S40.811S 05/02/2019 Active Pain in right wrist ICD- 9: 719.43 ICD-10: M25.531 05/02/2019 Active Hypertension Unknown 03/08/2019 Active Abnormal findings on diagnostic imaging of heart and coronary circulation ICD-9: 794.39 ICD-10: R93.1 03/08/2019 Active Mixed hyperlipidemia ICD-9: 272.4 ICD-10: E78.2 03/08/2019 Active Other forms of dyspnea ICD-9: 786.09 ICD-10: R06.09 03/08/2019 Active Medications Medication Codes Instruc tions Start Date Stop Date Sta tus Fill Instructions levothyroxine 50 mcg tablet RxNorm: 589661 1 Tablet(s) PO QD 08/08/2019 02/03/2020 Active isosorbide mononitra te ER 30 mg tablet,extended release 24 hr RxNorm: 977605 Tablet(s) 1 TABLET(S) PO NEEDED 06/27/2019 12/23/2019 Active Neris ent requests 90 days supply carvedilol 25 mg tablet RxNorm: 744716 1 TABLET(S) PO BID 06/27/2019 12/23/2019 Active isosorbide mononitra te ER 30 mg tablet,extended release 24 hr RxNorm: 135343 1 Tablet(s) PO QD as needed 06/27/2019 06/27/2019 Inactive Patient requests 90 days supply furosemide 40 mg tablet RxNorm: 001383 1 Tablet(s) PO QAM 06/21/2019 12/17/2019 Active Xanax 0.25 mg tablet RxNorm: 960278 1/2 Tablet(s) PO Q6H as needed 05/13/2019 No Stop Date Active carvedilol 25 mg tablet RxNorm: 892800 1 Tablet(s) PO BID 05/13/2019 06/26/2019 Inactive losartan 50 mg tablet RxNorm: 622224 1 Tablet(s) PO QD 04/26/2019 10/22/2019 Active levothyroxine 50 mcg tablet RxNorm: 829792 1 Tablet(s) PO QD 04/26/2019 08/07/2019 Inactive losartan 50 mg tablet RxNorm: 233795 1 Tablet(s) PO QD 04/20/2019 04/25/2019 Inactive pravastatin 40 mg ta blet RxNorm: 403290 1 Tablet(s) PO QD 04/07/2019 06/05/2019 Inactive isosorbide mononitra te ER 30 mg tablet,extended release 24 hr RxNorm: 474837 1 Tablet(s) PO as needed 04/07/2019 04/06/2019 Inactive isosorbide mononitra te ER 30 mg tablet,extended release 24 hr RxNorm: 771885 1 TABLET(S) PO NEEDED 04/07/2019 06/26/2019 Inactive Patient requests 90 days supply losartan 50 mg tablet RxNorm: 922281 1 Tablet(s) PO QD 03/22/2019 06/18/2019 Inactive Ventolin HFA 90 mcg/ actuation aerosol inhaler RxNorm: 087960 1-2 Puff(s) INH as ne eded No Start Date Active Coumadin 2 mg tablet RxNorm: 896134 1 Tablet(s) PO Mon, Fri, Sat and Sun the n 2 tablets (4mg) on Tu, Wed and Th No Start Date Active Women's Multivitamin 18 mg iron-400 mcg-500 mg tablet RxNorm: 1 Tablet(s) PO QD No Start Date Active Vitamin D3 1000 unit s Capsule RxNorm: 3 Capsule(s) PO QD No Start Date Active vitamin B complex ca psule RxNorm: 1 Capsule(s) PO QD No Start Date Active potassium chloride E R 10 mEq capsule,extended release RxNorm: 787972 1 Capsule(s) PO QD No Start Date Active carvedilol 25 mg tablet RxNorm: 696794 1 Tablet(s) PO BID No Start Date 05/12/2019 Inactive losartan 50 mg tablet RxNorm: 997597 1 Tablet(s) PO QD No Start Date 03/21/2019 Inactive furosemide 40 mg tablet RxNorm: 180408 1 Tablet(s) PO QAM No Start Date 06/20/2019 Inactive pravastatin 40 mg ta blet RxNorm: 813978 1 Tablet(s) PO QD No Start Date 04/06/2019 Inactive isosorbide mononitra te ER 30 mg tablet,extended release 24 hr RxNorm: 193982 Tablet(s) PO as needed No Start Date 04/06/2019 Inactive levothyroxine 50 mcg tablet RxNorm: 142853 1 Tablet(s) PO QD No Start Date 04/25/2019 Inactive Medication Administered No Medication Administered data Immunizations Vaccine Codes Date Status Influenza CVX: 135 07/02 completed Assessments Condition Codes Effectiv e Dates Encounter for therapeutic drug level monitoring ICD-10: Z51.81 ICD-9: V58.83 07/29/2019 Chronic atrial fibrillation ICD-10: I48.2 ICD-9: 427.31 07/29/2019 Essential (primary) hypertension ICD -10: I10 ICD-9: 401.9 07/06/2019 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-10: L90.5 ICD-9: 709.2 06/14/2019 Bitten by dog, sequela ICD-10: W54.0 XXS ICD-9: 906.1 06/14/2019 Anemia, unspecified ICD-10: D64.9 ICD-9: 285.9 06/14/2019 Generalized anxiety disorder ICD-10: F41.1 ICD-9: 300.02 05/13/2019 Hypothyroidism, unspecified ICD-10: E03.9 ICD-9: 244.9 05/13/2019 Other fatigue ICD-10: R53.83 ICD-9: 780.79 05/13/2019 Muscle weakness (generalized) ICD-10 : M62.81 ICD-9: 728.87 05/13/2019 Pain in right wrist ICD-10: M25.531 ICD-9: 719.43 05/02/2019 Abrasion of right upper arm, sequela ICD-10: S40.811S ICD-9: 906.2 05/02/2019 Abrasion of left upper arm, sequela ICD-10: S40.812S ICD-9: 906.2 05/02/2019 Abnormal findings on diagnostic imaging of heart and coronary circulation ICD-10: R93.1 ICD-9: 794.39 03/08/2019 Other forms of dyspnea ICD-10: R06.0 9 ICD-9: 786.09 03/08/2019 Mixed hyperlipidemia ICD-10: E78.2 ICD-9: 272.4 03/08/2019 Reason For Visit Reason For Visit Effective Dates Notes lab draw 07/29/2019 lab draw 07/18/2019 lab draw 07/06/2019 follow up 06/14/2019 follow up 05/13/2019 lab draw 05/06/2019 follow up 05/02/2019 for wound check lab draw 04/07/2019 blood pressure check 03/22/2019 ~generic 03/08/2019 New Patient---establishing visit Results Observation Observation Code Item Item Code Result Date PT 9156822 PT 23.2 Seconds 07/29/2019 PT 0791954 INR 2.0 07/29/2019 PT 7112208 PT 14.3 Seconds 07/18/2019 PT 4252080 INR 1.1 07/18/2019 [place] [address] Glucose 75 mg/dL 07/06/2019 [place] [address] CREATININE 0.61 mg/dL 07/06/2019 [place] [address] BUN 15 mg/dL 07/06/2019 [place] [address] SODIUM 142 mmol/L 07/06/2019 [place] [address] POTASSIUM 4.0 mmol/L 07/06/[address] [place] [address] CHLORIDE 106 mmol/L 07/06/2019 [place] [address] Bicarbonate 28 mmol/L 07/06/2019 [place] [address] AGAP 8 mmol/L 07/06/2019 [place] [address] CALCIUM 9.3 mg/dL 07/06/2019 PT 0124426 PT 17.4 Seconds 07/06/2019 PT 2403093 INR 1.4 07/06/2019 GFR CALC 6645647 GFR Non Afr Amr >60 mL/min 07/06/2019 GFR CALC 3339309 GFR Afr Amr >60 mL/min 07/06/2019 COMPLETE BLOOD COUNT 0721455 WBC 4.7 10e9/L 07/06/2019 COMPLETE BLOOD COUNT 3082124 RBC 4.19 10e12/L 9 COMPLETE BLOOD COUNT 9664648 HEMOGLOBIN 12.6 g/dL 07/06/2019 COMPLETE BLOOD COUNT 6847567 HEMATOCRIT 39.4 % 07/06/2019 COMPLETE BLOOD COUNT 1181128 MCV 94.0 fL 07/06/2019 COMPLETE BLOOD COUNT 9563771 MCH 30.1 pg 07/06/2019 COMPLETE BLOOD COUNT 3420299 MCHC 32.0 g/dL 07/06/2019 COMPLETE BLOOD COUNT 9412071 PLATELET COUNT 160 10e9/L 07/06/2019 COMPLETE BLOOD COUNT 5114322 Mean Plt Volume 11.0 fL 07/06/2019 COMPLETE BLOOD COUNT 2229572 Neut Auto 56.6 % 07/06/2019 COMPLETE BLOOD COUNT 1624200 Lymph Auto 27.0 % 07/06/2019 COMPLETE BLOOD COUNT 9002237 Mora Auto 13.7 % 07/06/2019 COMPLETE BLOOD COUNT 2617535 RDW 14.6 % 07/06/2019 COMPLETE BLOOD COUNT 2194540 Eos Auto 2.1 % 07/06/2019 COMPLETE BLOOD COUNT 5726958 Baso Auto 0.6 % 07/06/2019 COMPLETE BLOOD COUNT 6530422 Neutrophil Abs 2.66 10e9/L 07/06/2019 COMPLETE BLOOD COUNT 4086017 Lymphocyte Abs 1.27 10e9/L 07/06/2019 COMPLETE BLOOD COUNT 7364866 Monocyte Abs 0.64 10e9/L 07/06/2019 COMPLETE BLOOD COUNT 8460056 Eosinophil Abs 0.10 10e9/L 07/06/2019 COMPLETE BLOOD COUNT 2421688 RDW-SD 48.7 fL 07/06/2019 COMPLETE BLOOD COUNT 4506133 Basophil Abs 0.03 10e9/L 07/06/2019 COMPLETE BLOOD COUNT 8212951 WBC 4.6 10e9/L 06/14/2019 COMPLETE BLOOD COUNT 2294072 RBC 4.16 10e12/L 9 COMPLETE BLOOD COUNT 0474163 HEMOGLOBIN 12.6 g/dL 06/14/2019 COMPLETE BLOOD COUNT 2338854 HEMATOCRIT 39.1 % 06/14/2019 COMPLETE BLOOD COUNT 1837574 MCV 94.0 fL 06/14/2019 COMPLETE BLOOD COUNT 3862557 MCH 30.3 pg 06/14/2019 COMPLETE BLOOD COUNT 1196346 MCHC 32.2 g/dL 06/14/2019 COMPLETE BLOOD COUNT 9496663 PLATELET COUNT 167 10e9/L 06/14/2019 COMPLETE BLOOD COUNT 5956178 Mean Plt Volume 10.9 fL 06/14/2019 COMPLETE BLOOD COUNT 2027106 Neut Auto 59.6 % 06/14/2019 COMPLETE BLOOD COUNT 7332252 Lymph Auto 24.1 % 06/14/2019 COMPLETE BLOOD COUNT 3849957 Mora Auto 14.0 % 06/14/2019 COMPLETE BLOOD COUNT 8407408 RDW 14.8 % 06/14/2019 COMPLETE BLOOD COUNT 0306696 Eos Auto 1.9 % 06/14/2019 COMPLETE BLOOD COUNT 1361402 Baso Auto 0.4 % 06/14/2019 COMPLETE BLOOD COUNT 1044460 Neutrophil Abs 2.74 10e9/L 06/14/2019 COMPLETE BLOOD COUNT 7192128 Lymphocyte Abs 1.11 10e9/L 06/14/2019 COMPLETE BLOOD COUNT 2670370 Monocyte Abs 0.64 10e9/L 06/14/2019 COMPLETE BLOOD COUNT 4326104 Eosinophil Abs 0.09 10e9/L 06/14/2019 COMPLETE BLOOD COUNT 1478381 RDW-SD 49.3 fL 06/14/2019 COMPLETE BLOOD COUNT 0592295 Basophil Abs 0.02 10e9/L 06/14/2019 PT 5494696 PT 22.3 Seconds 06/14/2019 PT 9333880 INR 1.9 06/14/2019 COMPLETE BLOOD COUNT 4067895 WBC 4.0 10e9/L 05/13/2019 COMPLETE BLOOD COUNT 1097343 RBC 3.82 10e12/L 9 COMPLETE BLOOD COUNT 0497020 HEMOGLOBIN 11.5 g/dL 05/13/2019 COMPLETE BLOOD COUNT 0115499 HEMATOCRIT 36.4 % 05/13/2019 COMPLETE BLOOD COUNT 4401072 MCV 95.3 fL 05/13/2019 COMPLETE BLOOD COUNT 3474344 MCH 30.1 pg 05/13/2019 COMPLETE BLOOD COUNT 6644027 MCHC 31.6 g/dL 05/13/2019 COMPLETE BLOOD COUNT 5648644 PLATELET COUNT 175 10e9/L 05/13/2019 COMPLETE BLOOD COUNT 9473372 Mean Plt Volume 10.5 fL 05/13/2019 COMPLETE BLOOD COUNT 8200418 Neut Auto 63.2 % 05/13/2019 COMPLETE BLOOD COUNT 4095741 Lymph Auto 22.0 % 05/13/2019 COMPLETE BLOOD COUNT 2738254 Mora Auto 12.1 % 05/13/2019 COMPLETE BLOOD COUNT 2799787 RDW 14.9 % 05/13/2019 COMPLETE BLOOD COUNT 5385410 Eos Auto 2.2 % 05/13/2019 COMPLETE BLOOD COUNT 4222086 Baso Auto 0.5 % 05/13/2019 COMPLETE BLOOD COUNT 7878366 Neutrophil Abs 2.53 10e9/L 05/13/2019 COMPLETE BLOOD COUNT 5352408 Lymphocyte Abs 0.88 10e9/L 05/13/2019 COMPLETE BLOOD COUNT 7529229 Monocyte Abs 0.48 10e9/L 05/13/2019 COMPLETE BLOOD COUNT 0661521 Eosinophil Abs 0.09 10e9/L 05/13/2019 COMPLETE BLOOD COUNT 2301583 RDW-SD 49.6 fL 05/13/2019 COMPLETE BLOOD COUNT 4346792 Basophil Abs 0.02 10e9/L 05/13/2019 COMPREHENSIVE METABOLIC 71641 AST 18 U/L 05/13/2019 COMPREHENSIVE METABOLIC 23356 ALT 14 U/L 05/13/2019 COMPREHENSIVE METABOLIC 87461 BUN 15 mg/dL 05/13/2019 COMPREHENSIVE METABOLIC 98976 ALBUMIN 4.0 g/dL 05/13/2019 COMPREHENSIVE METABOLIC 27076 CHLORIDE 108 mmol/L 05/13/2019 COMPREHENSIVE METABOLIC 58692 Bili Total 0.9 mg/dL 05/13/2019 COMPREHENSIVE METABOLIC 40510 ALK PHOS 84 U/L 05/13/2019 COMPREHENSIVE METABOLIC 75383 SODIUM 142 mmol/L 05/13/2019 COMPREHENSIVE METABOLIC 35869 CREATININE 0.72 mg/dL 05/13/2019 COMPREHENSIVE METABOLIC 90751 CALCIUM 8.9 mg/dL 05/13/2019 COMPREHENSIVE METABOLIC 47068 POTASSIUM 4.0 mmol/L 05/13/2019 COMPREHENSIVE METABOLIC 53896 Total Protein 5.5 g/dL 05/13/2019 COMPREHENSIVE METABOLIC 92183 Glucose 95 mg/dL 05/13/2019 COMPREHENSIVE METABOLIC 63284 Bicarbonate 27 mmol/L 05/13/2019 COMPREHENSIVE METABOLIC 04607 AGAP 7 mmol/L 05/13/2019 GFR CALC 8999407 GFR Non Afr Amr >60 mL/min 05/13/2019 GFR CALC 2163874 GFR Afr Amr >60 mL/min 05/13/2019 THYROID STIMULATING HORMONE 36601 TSH 2.669 uIU/mL 9 FREE T4 13849 T4 Free 1.19 ng/dL 05/13/2019 PT 7496131 PT 24.2 Seconds 05/06/2019 PT 8070724 INR 2.1 05/06/2019 PT 3888842 PT 24.1 Seconds 03/08/2019 PT 6955583 INR 2.9 03/08/2019 Review of Systems System Result Effective Dates Musculoskeletal joint complaint 06/14/2019 Constitutional fatigue 0 05/13/2019 Constitutional No fever 05/13/2019 Constitutional No chills 05/13/2019 Respiratory No cough Respiratory No dyspnea 0 05/13/2019 Gastrointestinal No abdominal pain 05/13/2019 Gastrointestinal No constipation 05/13/2019 Musculoskeletal muscle weakness 05/13/2019 Dermatologic sores 05/13 Ears/Nose/Throat/Neck dizziness 05/13/2019 Musculoskeletal bone pain 05/13/2019 Psychiatric anxiety 04/24 Psychiatric stress 05/13 Constitutional No fatigue 05/02/2019 Constitutional No fever 05/02/2019 Constitutional No chills 05/02/2019 Respiratory No cough 08/2019 Respiratory No dyspnea 0 05/02/2019 Dermatologic sores 05/02 Musculoskeletal joint complaint 05/02/2019 Constitutional fatigue 0 03/08/2019 Respiratory dyspnea on exertion 03/08/2019 Gastrointestinal No hemorrhoids 03/08/2019 Gastrointestinal No hepatitis 03/08/2019 Gastrointestinal No abdominal pain 03/08/2019 Gastrointestinal No constipation 03/08/2019 Gastrointestinal No diarrhea 03/08/2019 Gastrointestinal No gastroesophageal reflu x 03/08/2019 Gastrointestinal No melena 03/08/2019 Gastrointestinal No nausea 03/08/2019 Gastrointestinal No vomiting 03/08/2019 Genitourinary/Nephrology No dysuria 03/08/2019 Genitourinary/Nephrology No nocturia 03/08/2019 Genitourinary/Nephrology No urinary incontinence 03/08/2019 Musculoskeletal No muscle weakness 03/08/2019 Musculoskeletal No myalgias 03/08/2019 Musculoskeletal No stiffness 03/08/2019 Musculoskeletal No swelling 03/08/2019 Dermatologic No rash Dermatologic No scar Neurologic No dizziness 03/08/2019 Neurologic No headache 0 03/08/2019 Neurologic No neck pain 03/08/2019 Neurologic No syncope Psychiatric No anxiety 0 03/08/2019 Psychiatric No depression 03/08/2019 Endocrine No goiter 02/21 Endocrine No hyperglycemia 03/08/2019 Endocrine No hypoglycemia 03/08/2019 Cardiovascular arrhythmia 03/08/2019 Cardiovascular No chest pain/pressure 03/08/2019 Cardiovascular edema Cardiovascular No exercise intolerance 03/08/2019 Cardiovascular No orthopnea 03/08/2019 Cardiovascular No palpitations 03/08/2019 Endocrine hypothyroid Endocrine hyperlipidemia 03/08/2019 Physical Exam Exam Name System Name It em Name Status Result Effective Dates Notes Full Exam - General Constitutional general appearance Overall: well nourished 06/14/2019 None Full Exam - General Constitutional general appearance Overall: well developed 06/14/2019 None Full Exam - General Constitutional general appearance Overall: in no acute distress 06/14/2019 None Full Exam - General Neurologic mental status Overall: alert 9 None Full Exam - General Neurologic mental status Overall: oriented 06/14/2019 None Full Exam - General Psychiatric mood and affect Overall: normal mood and affect 06/14/2019 None Full Exam - General Constitutional general appearance Assistive Device: braces 06/14/2019 left wrist Full Exam - General Integument inspection of skin Rash/Lesions: keloid 06/14/2019 mild bumps to bite perez on arms Full Exam - General Constitutional general appearance Overall: well nourished 05/13/2019 None Full Exam - General Constitutional general appearance Overall: in no acute distress 05/13/2019 None Full Exam - General Respiratory respiratory effort/rhythm Overall: no retractions 05/13/2019 None Full Exam - General Respiratory respiratory effort/rhythm Overall: normal rate 05/13/2019 None Full Exam - General Cardiovascular auscultation of heart Rhythm: regularly irregular rhythm 05/13/2019 None Full Exam - General Ears/Nose/Throat otoscopic exam Left tympanic membrane: air- fluid level 05/13/2019 None Full Exam - General Ears/Nose/Throat otoscopic exam Right tympanic membrane: air- fluid level 05/13/2019 None Full Exam - General Ears/Nose/Throat oral cavity/pharynx/larynx Oropharynx: a normal exam 05/13/2019 None Full Exam - General Lymphatic neck nodes Overall: anterior cervical chain ander ign 05/13/2019 None Full Exam - General Lymphatic neck nodes Overall: posterior cervical chain be nign 05/13/2019 None Full Exam - General Psychiatric orientation/consciousness Overall: oriented to person, place and time 05/13/2019 None Full Exam - General Psychiatric mood and affect Mood: tearful 05/13/2019 None Full Exam - General Constitutional general appearance Overall: well nourished 05/02/2019 None Full Exam - General Constitutional general appearance Overall: in no acute distress 05/02/2019 None Full Exam - General Cardiovascular auscultation of heart Overall: regular rate 05/02/2019 None Full Exam - General Cardiovascular auscultation of heart Overall: no murmurs 05/02/2019 None Full Exam - General Respiratory respiratory effort/rhythm Overall: no retractions 05/02/2019 None Full Exam - General Respiratory respiratory effort/rhythm Overall: normal rate 05/02/2019 None Full Exam - General Respiratory auscultation Overall: breath sounds clear bilater ally 05/02/2019 None Full Exam - General Integument inspection of skin Location: right arm 05/02/2019 bruising to right upper arm with several areas sutured in place from open bite. scant bloody drainage. Full Exam - General Integument inspection of skin Location: left arm 05/02/2019 bruising to left forearm with several ar eas sutured in place from open bites. minimal amount of blood drainage. Full Exam - General Neurologic mental status Overall: alert 9 None Full Exam - General Neurologic mental status Overall: oriented 05/02/2019 None Full Exam - General Constitutional general appearance Assistive Device: braces 05/02/2019 left arm in sling Full Exam - General Constitutional general appearance Overall: well nourished 03/08/2019 None Full Exam - General Constitutional general appearance Overall: well developed 03/08/2019 None Full Exam - General Constitutional general appearance Overall: in no acute distress 03/08/2019 None Full Exam - General Neurologic mental status Overall: alert 9 None Full Exam - General Neurologic mental status Overall: oriented 03/08/2019 None Full Exam - General Psychiatric mood and affect Overall: normal mood and affect 03/08/2019 None Full Exam - General Respiratory auscultation Overall: breath sounds clear bilater ally 03/08/2019 None Full Exam - General Cardiovascular auscultation of heart Overall: regular rate 03/08/2019 None Full Exam - General Cardiovascular extremities Overall: no clubbing 03/08/2019 None Full Exam - General Cardiovascular extremities Overall: No edema 03/08/2019 None Full Exam - General Cardiovascular extremities Overall: No cyanosis 03/08/2019 None Full Exam - General Abdomen abdominal exam Overall: no masses 03/08/2019 None Full Exam - General Abdomen abdominal exam Overall: no tenderness 03/08/2019 None Full Exam - General Abdomen abdominal exam Overall: normal bowel sounds 03/08/2019 None Full Exam - General Abdomen abdominal exam Overall: soft 03/08/2019 None Full Exam - General Cardiovascular auscultation of heart Overall: normal heart sounds 03/08/2019 None Full Exam - General Cardiovascular auscultation of heart Rhythm: irregularly irregular rhythm 03/08/2019 None Full Exam - General Cardiovascular auscultation of heart S4 (atrial gallop): present 03/08/2019 None Full Exam - General Cardiovascular auscultation of heart Murmur: previously known murmur unchanged 03/08/2019 None Full Exam - General Musculoskeletal gait and station Station: kyphosis 03/08/2019 None Full Exam - General Neck inspection of neck Overall: normal size 03/08/2019 None Full Exam - General Neck inspection of neck Overall: no masses 03/08/2019 None Full Exam - General Ears/Nose/Throat otoscopic exam Overall: external auditory canals clear 03/08/2019 None Full Exam - General Ears/Nose/Throat otoscopic exam Overall: tympanic membranes clear 03/08/2019 None Full Exam - General Ears/Nose/Throat oral cavity/pharynx/larynx Oropharynx: postnasal drainage 03/08/2019 None Procedures Procedure Codes Date ROUTINE VENIPUNCTURE CPT-4: 09689 07/29/2019 PT CPT-4: 2244844 07/29/2019 ROUTINE VENIPUNCTURE CPT-4: 14644 07/18/2019 PT CPT-4: 4657145 07/18/2019 METABOLIC PANEL TOTA L CA CPT-4: 96612 07/06/2019 COMPLETE CBC W/AUTO DIFF WBC CPT-4: 46115 07/06/2019 PROTHROMBIN TIME CPT-4: 45535 07/06/2019 ROUTINE VENIPUNCTURE CPT-4: 08671 06/14/2019 PROTHROMBIN TIME CPT-4: 82301 06/14/2019 COMPLETE CBC W/AUTO DIFF WBC CPT-4: 85648 06/14/2019 ROUTINE VENIPUNCTURE CPT-4: 88518 05/13/2019 COMPREHEN METABOLIC PANEL CPT-4: 79847 05/13/2019 COMPLETE CBC W/AUTO DIFF WBC CPT-4: 34161 05/13/2019 ASSAY THYROID STIM H ORMONE CPT-4: 02014 05/13/2019 ASSAY OF FREE THYROXINE CPT-4: 25007 05/13/2019 PT CPT-4: 0769667 05/06/2019 ROUTINE VENIPUNCTURE CPT-4: 03676 05/06/2019 PT CPT-4: 9777391 04/07/2019 ROUTINE VENIPUNCTURE CPT-4: 66415 04/07/2019 ROUTINE VENIPUNCTURE CPT-4: 54423 03/08/2019 PROTHROMBIN TIME CPT-4: 32461 03/08/2019 Vital Signs Date Vital 06/14/2019 Blood Pressure 1: 128/84 Code: 8480-6 Heart Rate 1: 72 bpm Respiratory Rate: 20 bpm SpO2: 98% Temperature: 36.7 (C ) / 98.1 (F) Weight: 209 lbs 05/13/2019 Blood Pressure 1: 144/90 Code: 8480-6 Heart Rate 1: 88 bpm Respiratory Rate: 24 bpm SpO2: 96% Temperature: 37.1 (C ) / 98.8 (F) Weight: 210 lbs 05/02/2019 Blood Pressure 1: 128/80 Code: 8480-6 Heart Rate 1: 84 bpm Respiratory Rate: 20 bpm SpO2: 95% Temperature: 36.6 (C ) / 97.9 (F) Weight: 209 lbs 03/22/2019 Blood Pressure 1: 122/70 Code: 8480-6 Heart Rate 1: 85 bpm 03/08/2019 Blood Pressure 1: 114/78 Code: 8480-6 BMI: 36.1 Code: 33425-8 Heart Rate 1: 76 bpm Height: 5'3" Respiratory Rate: 20 bpm SpO2: 97% Temperature: 37.1 (C ) / 98.8 (F) Weight: 207 lbs Functional Status No Functional Status data History of Present Illness Symptom Name Status Resu lt Effective Date Notes Location-Major on the arms 06/14/2019 None Quality improving 06/14/2019 None Quality numbness 06/14/2019 None Location on the left leg 06/14/2019 None Onset and Resolution o ngoing 06/14/2019 None Location-Major on the neck 05/13/2019 None Location-Major on the arms 05/13/2019 None Location on the left arm 05/13/2019 None Quality stable. 05/13/2019 Patient is scheduled to see Dr Jamey torres Thursday Quality atrial fibrill ation 03/08/2019 None Quality chronic 03/08/2019 None Quality breathlessness 03/08/2019 None Quality chronic 03/08/2019 Patient using Ventolin HFA as needed. 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 Quality stable 03/08/2019 None Quality stable 03/08/2019 None Onset of Symptom durin g adulthood 03/08/2019 has had extensive workup in [place] including PFT, cardiac cath and tried numerous modalities including inhalers with no improvement--most recent cath showed blockage in small arteries so given imdur but has not started this routinely Advance Directives No Advance Directive data Encounters Encounter Performer Loca tion Codes Date ([id number]) NURSE/OUTPAT IENT VISIT EST Diagnosis: Chronic atrial fibrillation[ICD10: I48.2] Diagnosis: Encounter for therapeutic drug level monitoring[ICD10: Z51.81] Becki Hernandez LUXAHAYDEEMeetMe CPT-4: 87071 07/29/2019 ([id number]) NURSE/OUTPAT IENT VISIT EST Diagnosis: Chronic atrial fibrillation[ICD10: I48.2] Diagnosis: Encounter for therapeutic drug level monitoring[ICD10: Z51.81] Becki YOUNGER [employer] CPT-4: 49862 07/18/2019 ([id number]) NURSE/OUTPAT IENT VISIT EST Diagnosis: Encounter for therapeutic drug level monitoring[ICD10: Z51.81] Diagnosis: Chronic atrial fibrillation[ICD10: I48.2] Diagnosis: Essential (primary) hypertension[ICD10: I10] Becki MARTE NDEPoppy [employer] CPT-4: 98064 07/06/2019 ([id number]) OFFICE/OUTPA TIENT VISIT EST Diagnosis: Encounter for therapeutic drug level monitoring[ICD10: Z51.81] Diagnosis: Anemia, unspecified[ICD10: D64.9] Diagnosis: Bitten by dog, sequela[ICD10: W54.0XXS] 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] Becki JENNINGSLINE OfeAxel ESTUARDO WILSON [employer] CPT-4: 76870 06/14/2019 ([id number]) OFFICE/OUTPA TIENT VISIT EST Diagnosis: Bitten by dog, sequela[ICD10: W54.0XXS] Diagnosis: Other fatigue[ICD10: R53.83] Diagnosis: Hypothyroidism, unspecified[ICD10: E03.9] Diagnosis: Muscle weakness (generalized)[ICD10: M62.81] Diagnosis: Generalized anxiety disorder[ICD10: F41.1] Jannette ThakurAxel HECTOR [employer] CPT-4: 10914 05/13/2019 ([id number]) NURSE/OUTPAT IENT VISIT EST Diagnosis: Encounter for therapeutic drug level monitoring[ICD10: Z51.81] Becki JENNINGSLINE OfeAxel VARUN [employer] CPT-4: 47250 05/06/2019 ([id number]) OFFICE/OUTPA TIENT VISIT EST Diagnosis: Bitten by dog, sequela[ICD10: W54.0XXS] Diagnosis: Pain in right wrist[ICD10: M25.531] Diagnosis: Abrasion of right upper arm, sequela[ICD10: S40.811S] Diagnosis: Abrasion of left upper arm, sequela[ICD10: S40.812S] Jannette JENNINGSLINE OfeAxel HECTOR ER [employer] CPT-4: 44975 05/02/2019 ([id number]) NURSE/OUTPAT IENT VISIT EST Diagnosis: Encounter for therapeutic drug level monitoring[ICD10: Z51.81] Becki Black BECKI [employer] VARUN [employer] CPT-4: 32847 04/07/2019 ([id number]) OFFICE/OUTPA TIENT VISIT NEW Diagnosis: Encounter for therapeutic drug level monitoring[ICD10: Z51.81] Diagnosis: Chronic atrial fibrillation[ICD10: I48.2] Diagnosis: Essential (primary) hypertension[ICD10: I10] Diagnosis: Abnormal findings on diagnostic imaging of heart and coronary circulation[ICD10: R93.1] Diagnosis: Other forms of dyspnea[ICD10: R06.09] Diagnosis: Hypothyroidism, unspecified[ICD10: E03.9] Diagnosis: Mixed hyperlipidemia[ICD10: E78.2] Becki WILSON DO [facility] CPT-4: 78006 03/08/2019 Plan of Care Planned Activity Notes C odes Status Date Appointment: Becki Black WPtel: [address] [place] [address] US LAB 07/29/2019 Appointment: Becki Black WPtel: [address] [place] [address] US LAB 07/18/2019 Appointment: Becki Black WPtel: [address] [place] [address] US LAB 07/06/2019 Visit Diagnosis Plan: Bitten by dog, sequela Discussion: Is seeing counselor which is helping Has started PT for left wrist ICD-9 : 906.1 ICD-10 : W54.0XXS 06/14/2019 Visit Diagnosis Plan: Encounter for ther apeutic drug level monitoring Discussion: PT/INR drawn ICD-9 : V58.83 ICD-10 : Z51.81 06/14/2019 Visit Diagnosis Plan: Anemia, unspecified Discussion: CBC drawn ICD-9 : 285.9 ICD-10 : D64.9 06/14/2019 Visit Diagnosis Plan: Scar conditions and fibrosis of skin Discussion: Discussed Vitamin E or scar gel topically with gentle massage Fwup 3mos ICD-9 : 709.2 ICD-10 : L90.5 06/14/2019 Appointment: Becki Black WPtel: [address] [place] [address] US FOLLOW UP 06/14/2019 Visit Diagnosis Plan: Muscle weakness (generalized) Discussion: zyrtec to take daily to cover for allergies due to TM appearance. ICD-9 : 728.87 ICD-10 : M62.81 05/13/2019 Visit Diagnosis Plan: Bitten by dog, sequela Discussion: wounds were cleansed to right arm with neosporin applied and covered with telfa and bandaid. instructed to continue with dressing changes until areas scab and then can leave open to air. ICD-9 : 906.1 ICD-10 : W54.0XXS 05/13/2019 Visit Diagnosis Plan: Other fatigue Discussion: will order updated blood work to be completed today. ICD-9 : 780.79 ICD-10 : R53.83 05/13/2019 Visit Diagnosis Plan: Generalized anxiety disorder Discussion: xanax prescribed to take as directed. discussed side effects with patient and to start with 1/2 tab first and increase to full tab prn if needed. discussed risk of dependence of medication and she verbalized understanding. informed patient to not take hydrocodone with xanax but patient has stopped taking the hydrocodone several days ago. will refer to [facility] as wel l to discuss concerns. ICD-9 : 300.02 ICD-10 : F41.1 05/13/2019 Appointment: Jannette Mayen [address] [place], [place] [id number] FOLLOW UP 05/13/2019 Patient Education: carvedilol- [employer] Coupon [id number] [email or web address]/resources/getResource/[email or web address] Completed 05/13/2019 Patient Education: Xanax- [employer] Coupon [id number] [email or web address]/resources/[email or web address] Completed 05/13/2019 Appointment: [facility] [phone] [id number] [facility] 05/06/2019 Visit Diagnosis Plan: Abrasion [...] Visit Diagnosis Plan: Bitten by dog, sequela Discussion: had tetanus shot yesterday in ER and [...] send results to dr. portillo at [facility]. ICD-9 : 719.43 ICD-10 : M25.531 05/02/2019 Appointment: Jannette Mayen [address] [place] [address] ACUTE ILLNESS 05/02/2019 Care Plan: X-RAY EXAM OF WRIST right LOINC : 48805-3 Pending 05/02/2019 Appointment: Becki Black WPtel: [address] [place] [address] LAB 04/07/2019 Appointment: Becki Black WPtel: [address] [place] [address] US BP CHECK 03/22/2019 Visit Diagnosis Plan: Abnormal findings on diagnostic imaging of heart and coronary circulation Discussion: Discussed reason to use imdu r routinely to see if helps with dyspnea on exertion as well as chest pain episodes Patient will return in 2 weeks after taking imdur routinely for a BP check ICD-9 : 794.39 ICD-10 : R93.1 03/08/2019 Visit Diagnosis Plan: Hypothyroidism, unspecified Discussion: Obtain most recent lab and previous medical records ICD-9 : 244.9 ICD-10 : E03.9 03/08/2019 Visit Diagnosis Plan: Mixed hyperlipidemia Discussion: Mediterranean diet Combination of cardio and weight bearing exercise Just had lab done in January ICD-9 : 272.4 ICD-10 : E78.2 03/08/2019 Visit Diagnosis Plan: Chronic atrial fibrillation Discussion: Sees Cardiology this afternoon Rate controlled ICD-9 : 427.31 ICD-10 : I48.2 03/08/2019 Visit Diagnosis Plan: Essential (primary) hypertension Discussion: Stable ICD-9 : 401.9 ICD-10 : I10 03/08/2019 Visit Diagnosis Plan: Encounter for ther apeutic drug level monitoring Discussion: PT/INR drawn ICD-9 : V58.83 ICD-10 : Z51.81 03/08/2019 Visit Diagnosis Plan: Other forms of dyspnea Discussion: Use imdur routinely and has started an exercise program ICD-9 : 786.09 ICD-10 : R06.09 03/08/2019 Appointment: [facility] [phone] [id number] NEW PATIENT 03/08/2019 Instructions No Instructions
--- OUTSIDE RECORDS SUMMARY | 2019-11-24 06:54 | XMS REPORT | CCD ---
Author Author Tricia Black D.O. Organization [facility] Address [address] [place] [address] Phone Care Team Providers Care Cooker Operator Name Role Phone PP Unavailable CCM Unavailable Summary Purpose Interface Exchange Insurance Providers Payer name Policy type / Coverage type Covered libertarian ID Effective Begin Date Effective End Date WPS MEDICARE PART B [place] Medicare Part B [id number] Unknown Unknown United [employer] Medicare Part B [id number] Unknown Unknown Family history Grandmother Diagnosis [...] Retir ed 03/08/[address]: 470852560 Has never smoked or chewed tobacco 03/08/[address]: 429677 Currently drinks alcohol 03/08/2019 Has the patient [...] Date Stop Date Sta tus Fill Instructions isosorbide mononitra te ER 30 mg tablet,extended release 24 hr RxNorm: 316117 Tablet(s) 1 TABLET(S) PO NEEDED 06/27/2019 12/23/2019 Active Neris ent requests 90 days supply carvedilol 25 mg tablet RxNorm: 929789 1 TABLET(S) PO BID 06/27/2019 12/23/2019 Active isosorbide mononitra te ER 30 mg tablet,extended release 24 hr RxNorm: 175794 1 Tablet(s) PO QD as needed 06/27/2019 06/27/2019 Inactive Patient requests 90 days supply furosemide 40 mg tablet RxNorm: 088557 1 Tablet(s) PO QAM 06/21/2019 12/17/2019 Active Xanax 0.25 mg tablet RxNorm: 079935 1/2 Tablet(s) PO Q6H as needed 05/13/2019 No Stop Date Active carvedilol 25 mg tablet RxNorm: 373600 1 Tablet(s) PO BID 05/13/2019 06/26/2019 Inactive levothyroxine 50 mcg tablet RxNorm: 383240 1 Tablet(s) PO QD 04/26/2019 10/22/2019 Active losartan 50 mg tablet RxNorm: 090357 1 Tablet(s) PO QD 04/26/2019 10/22/2019 Active losartan 50 mg tablet RxNorm: 064298 1 Tablet(s) PO QD 04/20/2019 04/25/2019 Inactive pravastatin 40 mg ta blet RxNorm: 457697 1 Tablet(s) PO QD 04/07/2019 06/05/2019 Inactive isosorbide mononitra te ER 30 mg tablet,extended release 24 hr RxNorm: 113596 1 Tablet(s) PO as needed 04/07/2019 04/06/2019 Inactive isosorbide mononitra te ER 30 mg tablet,extended release 24 hr RxNorm: 756349 1 TABLET(S) PO NEEDED 04/07/2019 06/26/2019 Inactive Patient requests 90 days supply losartan 50 mg tablet RxNorm: 328686 1 Tablet(s) PO QD 03/22/2019 06/18/2019 Inactive Ventolin HFA 90 mcg/ actuation aerosol inhaler RxNorm: 473893 1-2 Puff(s) INH as ne eded No Start Date Active Coumadin 2 mg tablet RxNorm: 324129 1 Tablet(s) PO Mon, Fri, Sat and Sun the n 2 tablets (4mg) on , Thu and No Start Date Active Women's Multivitamin 18 mg iron-400 mcg-500 mg tablet RxNorm: 1 Tablet(s) PO QD No Start Date Active Vitamin D3 1000 unit s Capsule RxNorm: 3 Capsule(s) PO QD No Start Date Active vitamin B complex ca psule RxNorm: 1 Capsule(s) PO QD No Start Date Active potassium chloride E R 10 mEq capsule,extended release RxNorm: 729975 1 Capsule(s) PO QD No Start Date Active carvedilol 25 mg tablet RxNorm: 238013 1 Tablet(s) PO BID No Start Date 05/12/2019 Inactive losartan 50 mg tablet RxNorm: 700037 1 Tablet(s) PO QD No Start Date 03/21/2019 Inactive furosemide 40 mg tablet RxNorm: 802558 1 Tablet(s) PO QAM No Start Date 06/20/2019 Inactive pravastatin 40 mg ta blet RxNorm: 087584 1 Tablet(s) PO QD No Start Date 04/06/2019 Inactive isosorbide mononitra te ER 30 mg tablet,extended release 24 hr RxNorm: 519442 Tablet(s) PO as needed No Start Date 04/06/2019 Inactive levothyroxine 50 mcg tablet RxNorm: 060186 1 Tablet(s) PO QD No Start Date [...] Code Item Item Code Result Date PT 5103206 PT 23.2 Seconds 07/29/2019 PT 3727650 INR 2.0 07/29/2019 PT 7646411 PT 14.3 Seconds 07/18/2019 PT 7039917 INR 1.1 07/18/2019 [place] [address] Glucose 75 mg/dL 07/06/2019 [place] [address] CREATININE 0.61 mg/dL 07/06/2019 [place] [address] BUN 15 mg/dL 07/06/2019 [place] [address] SODIUM 142 mmol/L 07/06/2019 [place] [address] POTASSIUM 4.0 mmol/L 07/06/2019 [place] [address] CHLORIDE 106 mmol/L 07/06/2019 [place] [address] Bicarbonate 28 mmol/L 07/06/2019 [place] [address] AGAP 8 mmol/L 07/06/2019 [place] [address] CALCIUM 9.3 mg/dL 07/06/2019 PT 6505105 PT 17.4 Seconds 07/06/2019 PT 8918329 INR 1.4 07/06/2019 GFR CALC GFR Non Afr Amr >60 mL/min 07/06/2019 GFR CALC 6440678 GFR Afr Amr >60 mL/min 07/06/2019 COMPLETE BLOOD COUNT 4565094 WBC 4.7 10e9/L 07/06/2019 COMPLETE BLOOD COUNT 1821098 RBC 4.19 10e12/L 9 COMPLETE BLOOD COUNT 1332861 HEMOGLOBIN 12.6 g/dL 07/06/2019 COMPLETE BLOOD COUNT 6899670 HEMATOCRIT 39.4 % 07/06/2019 COMPLETE BLOOD COUNT 7201982 MCV 94.0 fL 07/06/2019 COMPLETE BLOOD COUNT 0607319 MCH 30.1 pg 07/06/2019 COMPLETE BLOOD COUNT 9775320 MCHC 32.0 g/dL 07/06/2019 COMPLETE BLOOD COUNT 7575249 PLATELET COUNT 160 10e9/L 07/06/2019 COMPLETE BLOOD COUNT 2128913 Mean Plt Volume 11.0 fL 07/06/2019 COMPLETE BLOOD COUNT 1728727 Neut Auto 56.6 % 07/06/2019 COMPLETE BLOOD COUNT 8238004 Lymph Auto 27.0 % 07/06/2019 COMPLETE BLOOD COUNT 6111486 [place] Auto 13.7 % 07/06/2019 COMPLETE BLOOD COUNT 8271869 RDW 14.6 % 07/06/2019 COMPLETE BLOOD COUNT 9586880 Eos Auto 2.1 % 07/06/2019 COMPLETE BLOOD COUNT 9741513 Baso Auto 0.6 % 07/06/2019 COMPLETE BLOOD COUNT 8263985 Neutrophil Abs 2.66 10e9/L 07/06/2019 COMPLETE BLOOD COUNT 4311974 Lymphocyte Abs 1.27 10e9/L 07/06/2019 COMPLETE BLOOD COUNT 3575456 Monocyte Abs 0.64 10e9/L 07/06/2019 COMPLETE BLOOD COUNT 8099685 Eosinophil Abs 0.10 10e9/L 07/06/2019 COMPLETE BLOOD COUNT 3665834 RDW-SD 48.7 fL 07/06/2019 COMPLETE BLOOD COUNT 4874215 Basophil Abs 0.03 10e9/L 07/06/2019 COMPLETE BLOOD COUNT 4968761 WBC 4.6 10e9/L 06/14/2019 COMPLETE BLOOD COUNT 4353486 RBC 4.16 10e12/L 9 COMPLETE BLOOD COUNT 2904101 HEMOGLOBIN 12.6 g/dL 06/14/2019 COMPLETE BLOOD COUNT 7571549 HEMATOCRIT 39.1 % 06/14/2019 COMPLETE BLOOD COUNT 2501208 MCV 94.0 fL 06/14/2019 COMPLETE BLOOD COUNT 8640527 MCH 30.3 pg 06/14/2019 COMPLETE BLOOD COUNT 7850479 MCHC 32.2 g/dL 06/14/2019 COMPLETE BLOOD COUNT 6036507 PLATELET COUNT 167 10e9/L 06/14/2019 COMPLETE BLOOD COUNT 0441095 Mean Plt Volume 10.9 fL 06/14/2019 COMPLETE BLOOD COUNT 9697115 Neut Auto 59.6 % 06/14/2019 COMPLETE BLOOD COUNT 2365558 Lymph Auto 24.1 % 06/14/2019 COMPLETE BLOOD COUNT 5441466 [place] Auto 14.0 % 06/14/2019 COMPLETE BLOOD COUNT 6910293 RDW 14.8 % 06/14/2019 COMPLETE BLOOD COUNT 5994742 Eos Auto 1.9 % 06/14/2019 COMPLETE BLOOD COUNT 8462082 Baso Auto 0.4 % 06/14/2019 COMPLETE BLOOD COUNT 4083512 Neutrophil Abs 2.74 10e9/L 06/14/2019 COMPLETE BLOOD COUNT 5527357 Lymphocyte Abs 1.11 10e9/L 06/14/2019 COMPLETE BLOOD COUNT 2291384 Monocyte Abs 0.64 10e9/L 06/14/2019 COMPLETE BLOOD COUNT 5884314 Eosinophil Abs 0.09 10e9/L 06/14/2019 COMPLETE BLOOD COUNT 6483189 RDW-SD 49.3 fL 06/14/2019 COMPLETE BLOOD COUNT 8614418 Basophil Abs 0.02 10e9/L 06/14/2019 PT 4807444 PT 22.3 Seconds 06/14/2019 PT 2491996 INR 1.9 06/14/2019 COMPLETE BLOOD COUNT 9954784 WBC 4.0 10e9/L 05/13/2019 COMPLETE BLOOD COUNT 9376775 RBC 3.82 10e12/L 9 COMPLETE BLOOD COUNT 0775895 HEMOGLOBIN 11.5 g/dL 05/13/2019 COMPLETE BLOOD COUNT 3167902 HEMATOCRIT 36.4 % 05/13/2019 COMPLETE BLOOD COUNT 0426829 MCV 95.3 fL 05/13/2019 COMPLETE BLOOD COUNT 1431312 MCH 30.1 pg 05/13/2019 COMPLETE BLOOD COUNT 5581002 MCHC 31.6 g/dL 05/13/2019 COMPLETE BLOOD COUNT 3612276 PLATELET COUNT 175 10e9/L 05/13/2019 COMPLETE BLOOD COUNT 6744369 Mean Plt Volume 10.5 fL 05/13/2019 COMPLETE BLOOD COUNT 4726038 Neut Auto 63.2 % 05/13/2019 COMPLETE BLOOD COUNT 3168789 Lymph Auto 22.0 % 05/13/2019 COMPLETE BLOOD COUNT 9281370 [place] Auto 12.1 % 05/13/2019 COMPLETE BLOOD COUNT 4844364 RDW 14.9 % 05/13/2019 COMPLETE BLOOD COUNT 1909424 Eos Auto 2.2 % 05/13/2019 COMPLETE BLOOD COUNT 6485291 Baso Auto 0.5 % 05/13/2019 COMPLETE BLOOD COUNT 0393032 Neutrophil Abs 2.53 10e9/L 05/13/2019 COMPLETE BLOOD COUNT 5749597 Lymphocyte Abs 0.88 10e9/L 05/13/2019 COMPLETE BLOOD COUNT 1964891 Monocyte Abs 0.48 10e9/L 05/13/2019 COMPLETE BLOOD COUNT 3959685 Eosinophil Abs 0.09 10e9/L 05/13/2019 COMPLETE BLOOD COUNT 9048584 RDW-SD 49.6 fL 05/13/2019 COMPLETE BLOOD COUNT 1555850 Basophil Abs 0.02 10e9/L 05/13/2019 COMPREHENSIVE METABOLIC 59040 AST 18 U/L 05/13/2019 COMPREHENSIVE METABOLIC 05980 ALT 14 U/L 05/13/2019 COMPREHENSIVE METABOLIC 39395 BUN 15 mg/dL 05/13/2019 COMPREHENSIVE METABOLIC 40833 ALBUMIN 4.0 g/dL 05/13/2019 COMPREHENSIVE METABOLIC 46566 CHLORIDE 108 mmol/L 05/13/2019 COMPREHENSIVE METABOLIC 51101 Bili Total 0.9 mg/dL 05/13/2019 COMPREHENSIVE METABOLIC 29970 ALK PHOS 84 U/L 05/13/2019 COMPREHENSIVE METABOLIC 17149 SODIUM 142 mmol/L 05/13/2019 COMPREHENSIVE METABOLIC 81106 CREATININE 0.72 mg/dL 05/13/2019 COMPREHENSIVE METABOLIC 60060 CALCIUM 8.9 mg/dL 05/13/2019 COMPREHENSIVE METABOLIC 38239 POTASSIUM 4.0 mmol/L 05/13/2019 COMPREHENSIVE METABOLIC 99933 Total Protein 5.5 g/dL 05/13/2019 COMPREHENSIVE METABOLIC 64862 Glucose 95 mg/dL 05/13/2019 COMPREHENSIVE METABOLIC 51895 Bicarbonate 27 mmol/L 05/13/2019 COMPREHENSIVE METABOLIC 93079 AGAP 7 mmol/L 05/13/2019 GFR CALC 7749454 GFR Non Afr Amr >60 mL/min 05/13/2019 GFR CALC 6796275 GFR Afr Amr >60 mL/min 05/13/2019 THYROID STIMULATING HORMONE 05944 TSH 2.669 uIU/mL 9 FREE T4 85487 T4 Free 1.19 ng/dL 05/13/2019 PT 6720350 PT 24.2 Seconds 05/06/2019 PT 9907763 INR 2.1 05/06/2019 PT 1217556 PT 24.1 Seconds 03/08/2019 PT 9077228 INR 2.9 03/08/2019 Review of Systems System [...] Procedures Procedure Codes Date ROUTINE VENIPUNCTURE CPT-4: 81740 07/29/2019 PT CPT-4: 8970255 07/29/2019 ROUTINE VENIPUNCTURE CPT-4: 09115 07/18/2019 PT CPT-4: 3437895 07/18/2019 METABOLIC PANEL TOTA L CA CPT-4: 01177 07/06/2019 COMPLETE CBC W/AUTO DIFF WBC CPT-4: 68818 07/06/2019 PROTHROMBIN TIME CPT-4: 94968 07/06/2019 ROUTINE VENIPUNCTURE CPT-4: 63547 06/14/2019 PROTHROMBIN TIME CPT-4: 99863 06/14/2019 COMPLETE CBC W/AUTO DIFF WBC CPT-4: 05271 06/14/2019 ROUTINE VENIPUNCTURE CPT-4: 68113 05/13/2019 COMPREHEN METABOLIC PANEL CPT-4: 17752 05/13/2019 COMPLETE CBC W/AUTO DIFF WBC CPT-4: 47412 05/13/2019 ASSAY THYROID STIM H ORMONE CPT-4: 20339 05/13/2019 ASSAY OF FREE THYROXINE CPT-4: 73605 05/13/2019 PT CPT-4: 0010641 05/06/2019 ROUTINE VENIPUNCTURE CPT-4: 71315 05/06/2019 PT CPT-4: 3731848 04/07/2019 ROUTINE VENIPUNCTURE CPT-4: 87584 04/07/2019 ROUTINE VENIPUNCTURE CPT-4: 12495 03/08/2019 PROTHROMBIN TIME CPT-4: 55342 03/08/2019 Vital Signs Date Vital 06/14/2019 Blood [...] 1: 114/78 Code: 8480-6 BMI: 36.1 Code: 95703-2 Heart Rate 1: 76 bpm Height: 5'3" [...] is scheduled to see Dr Jamey torres Nancie Quality atrial fibrill ation 03/08/2019 None Quality chronic 03/08/2019 None Quality breathlessness 03/08/2019 None Quality chronic 03/08/2019 Patient using Ventolin HFA as needed. 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81] Becki BLACK [employer] CPT-4: 33241 07/29/2019 ([id number]) NURSE/OUTPAT IENT VISIT EST Diagnosis: Chronic atrial fibrillation[ICD10: I48.2] Diagnosis: Encounter for therapeutic drug level monitoring[ICD10: Z51.81] Becki BLACK [employer] CPT-4: 90334 07/18/2019 ([id number]) NURSE/OUTPAT IENT VISIT EST Diagnosis: Encounter for therapeutic drug level monitoring[ICD10: Z51.81] Diagnosis: Chronic atrial fibrillation[ICD10: I48.2] Diagnosis: Essential (primary) hypertension[ICD10: I10] Becki WILSON [employer] CPT-4: 33906 07/06/2019 ([id number]) OFFICE/OUTPA TIENT VISIT EST Diagnosis: Encounter for therapeutic drug level monitoring[ICD10: Z51.81] Diagnosis: Anemia, unspecified[ICD10: D64.9] Diagnosis: Bitten by dog, sequela[ICD10: W54.0XXS] 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] Becki WILSON [facility] CPT-4: 10215 06/14/2019 ([id number]) OFFICE/OUTPA TIENT VISIT EST Diagnosis: Bitten by dog, sequela[ICD10: W54.0XXS] Diagnosis: Other fatigue[ICD10: R53.83] Diagnosis: Hypothyroidism, unspecified[ICD10: E03.9] Diagnosis: Muscle weakness (generalized)[ICD10: M62.81] Diagnosis: Generalized anxiety disorder[ICD10: F41.1] Jannette YOUNG [employer] CPT-4: 68300 05/13/2019 ([id number]) NURSE/OUTPAT IENT VISIT EST Diagnosis: Encounter for therapeutic drug level monitoring[ICD10: Z51.81] Becki YOUNG [employer] [facility] CPT-4: 45959 05/06/2019 ([id number]) OFFICE/OUTPA TIENT VISIT EST Diagnosis: Bitten by dog, sequela[ICD10: W54.0XXS] Diagnosis: Pain in right wrist[ICD10: M25.531] Diagnosis: Abrasion of right upper arm, sequela[ICD10: S40.811S] Diagnosis: Abrasion of left upper arm, sequela[ICD10: S40.812S] Jannette YOUNG [employer] [facility] CPT-4: 98842 05/02/2019 ([id number]) NURSE/OUTPAT IENT VISIT EST Diagnosis: Encounter for therapeutic drug level monitoring[ICD10: Z51.81] Becki BLACK [employer] [facility] CPT-4: 36164 04/07/2019 ([id number]) OFFICE/OUTPA TIENT VISIT NEW Diagnosis: Encounter for therapeutic drug level monitoring[ICD10: Z51.81] Diagnosis: Chronic atrial fibrillation[ICD10: I48.2] Diagnosis: Essential (primary) hypertension[ICD10: I10] Diagnosis: Abnormal findings on diagnostic imaging of heart and coronary circulation[ICD10: R93.1] Diagnosis: Other forms of dyspnea[ICD10: R06.09] Diagnosis: Hypothyroidism, unspecified[ICD10: E03.9] Diagnosis: Mixed hyperlipidemia[ICD10: E78.2] Becki [facility] CPT-4: 72461 03/08/2019 Plan of Care Planned Activity Notes C odes Status Date Appointment: Becki Black WPtel: [address] [place] [id number] US LAB 07/18/2019 Appointment: Becki Black WPtel: [address] [place] [id number] US LAB 07/06/2019 Visit Diagnosis Plan: Bitten [...] : L90.5 06/14/2019 Appointment: Becki Black WPtel: [address] [place], [place] [id number] US FOLLOW UP 06/14/2019 Visit Diagnosis Plan: [...] hydrocodone several days ago. will refer to [facility] as wel l to discuss concerns. ICD-9 : 300.02 ICD-10 : F41.1 05/13/2019 Appointment: Jannette Mayen [address] [place], [place] [id number] FOLLOW UP 05/13/2019 Patient Education: carvedilol- [employer] Coupon [phone] https://www.[employer]/samplemd/resources/getResource/61/28g0e661-6has-0302-0n Completed 05/13/2019 Patient Education: Xanax- [employer] Coupon [id number] https://www.[employer]/samplemd/resources/getResource/61/[email or web address]-f5 Completed 05/13/2019 [facility]ment[facility] [address] [id number] [facility] 05/06/2019 Visit Diagnosis Plan: Abrasion [...] send results to dr. portillo at [facility]. ICD-9 : 719.43 ICD-10 : M25.531 05/02/2019 Appointment: Jannette Mayen [address] ACUTE ILLNESS 05/02/2019 Care Plan: X-RAY EXAM OF WRIST right LOINC : 52302-0 Pending 05/02/2019 Appointment: Becki Black WPtel: [address] [place] [address] LAB 04/07/2019 Appointment: Becki Black WPtel: [address] [place] [address] US BP CHECK 03/22/2019 Visit Diagnosis Plan: [...] E03.9 03/08/2019 Visit Diagnosis Plan: Encounter for ther [...] ICD-10 : I10 03/08/2019 Visit Diagnosis Plan: Other forms of dyspnea Discussion: Use imdur routinely and has started an exercise program ICD-9 : 786.09 ICD-10 : R06.09 03/08/2019 Appointment: Becki Black [id number] NEW [facility]IENT 03/08/2019 Instructions No Instructions
--- OUTSIDE RECORDS SUMMARY | 2019-11-24 06:54 | XMS REPORT | CCD ---
Author Author Tricia Black D.O. Organization [facility] Address [address] [place] [address] Phone Care Team Providers Care Theatrical Agent Name Role Phone PP Unavailable CCM Unavailable Summary Purpose Interface Exchange Insurance Providers Payer name Policy type / Coverage type Covered alliance party ID Effective Begin Date Effective End Date WPS MEDICARE PART B [place] Medicare Part B [id number] Unknown Unknown [facility] Medicare Part B [id number] Unknown Unknown Family history Grandmother Diagnosis Age [...] Unknown Retired 03/08/[address]: 449052891 Has never smoked or chewed tobacco 03/08/[address]: 203137 Currently drinks alcohol 03/08 Has the patient [...] Fill Instructions losartan 50 mg tablet RxNorm: 098930 2 Tablet(s) Oral QD 11/01/2019 0 04/29/2020 Active potassium chloride ER 10 mEq capsule,extended release RxNorm : 838798 1 Capsule(s) Oral QD 10/26/2019 10/26/2019 Inactive potassium chloride ER 10 mEq tablet,extended release RxNorm: 012797 1 TABLET(S) ORAL QD 10/22/2019 04/18/2020 Active Replaces PA on 1 0MEQ Capsules Aspir-81 mg tablet,delayed release RxNorm: 751438 1 Tablet(s) O ral QD 10/11/2019 No Stop Date Active cyclobenzaprine 5 mg tablet RxNorm: 450552 1 Tablet(s) Oral two times a day as needed for muscle spasm 10/11/2019 No Stop Date Active Coumadin 4 mg tablet RxNorm: 638452 1 Tablet(s) Oral Mo through Thursday and 1/2 tablet (2mg) on Sat/Sun 10/11/2019 No Stop Date Active potassium chloride ER 10 mEq tablet,extended release RxNorm: 529571 1 Tablet(s) Oral QD 09/22/2019 09/21/2019 Inactive Replaces PA on 1 0MEQ Capsules potassium chloride ER 10 mEq tablet,extended release RxNorm: 745679 1 Tablet(s) Oral QD 09/22/2019 10/10/2019 Inactive Replaces PA on 1 0MEQ Capsules potassium chloride ER 10 mEq capsule,extended release RxNorm : 413667 1 Capsule(s) Oral QD 09/21/2019 09/21/2019 Inactive carvedilol 25 mg tablet RxNorm: 491810 1 Tablet(s) Oral two antolin es a day 08/23/2019 11/21/2019 Active isosorbide mononitrate ER 30 mg tablet,extended release 24 h r RxNorm: 453202 TABLET(S) 1 TABLET(S) PO NEEDED 08/22/2019 02/17/2020 Active Patient requests 90 days supply isosorbide mononitrate ER 30 mg tablet,extended release 24 h r RxNorm: 828942 Tablet(s) 1 TABLET(S) PO NEEDED 08/16/2019 08/21/2019 Inactive Patient requests 90 days supply levothyroxine 50 mcg tablet RxNorm: 446767 1 Tablet(s) PO QD 201802/03/2020 Active isosorbide mononitrate ER 30 mg tablet,extended release 24 h r RxNorm: 140863 Tablet(s) 1 TABLET(S) PO NEEDED 06/27/2019 08/15/2019 Inactive Patient requests 90 days supply isosorbide mononitrate ER 30 mg tablet,extended release 24 h r RxNorm: 566925 1 Tablet(s) PO QD as needed 06/27/2019 06/27/2019 Inactive Neris ent requests 90 days supply carvedilol 25 mg tablet RxNorm: 950277 1 TABLET(S) PO BID 06/27/2019 08/22/2019 Inactive furosemide 40 mg tablet RxNorm: 817768 1 Tablet(s) PO QAM 06/21/2019 12/17/2019 Active carvedilol 25 mg tablet RxNorm: 009494 1 Tablet(s) PO BID 05/13/2019 06/26/2019 Inactive Xanax 0.25 mg tablet RxNorm: 722718 1/2 Tablet(s) PO Q6H as needed 05/13/2019 09/07/2019 Inactive levothyroxine 50 mcg tablet RxNorm: 757863 1 Tablet(s) PO QD 201808/07/2019 Inactive losartan 50 mg tablet RxNorm: 912773 1 Tablet(s) PO QD 04/26/2019 Inactive losartan 50 mg tablet RxNorm: 188964 1 Tablet(s) PO QD 04/20/201901/2019 Inactive pravastatin 40 mg tablet RxNorm: 675210 1 Tablet(s) PO QD 04/07/2019 06/05/2019 Inactive isosorbide mononitrate ER 30 mg tablet,extended release 24 h r RxNorm: 290505 1 Tablet(s) PO as needed 04/07/2019 04/06/2019 Inactive isosorbide mononitrate ER 30 mg tablet,extended release 24 h r RxNorm: 660690 1 TABLET(S) PO NEEDED 04/07/2019 06/26/2019 Inactive Patient requests 90 days supply losartan 50 mg tablet RxNorm: 391444 1 Tablet(s) PO QD 03/22/2019 Inactive carvedilol 25 mg tablet RxNorm: 249334 1 Tablet(s) PO BID No Start Date 05/12/2019 Inactive losartan 50 mg tablet RxNorm: 959704 1 Tablet(s) PO QD No Start Date 03/21/2019 Inactive Ventolin HFA 90 mcg/actuation aerosol inhaler RxNorm: 975727 1-2 Puff(s) INH as needed No Start Date 09/07/2019 Inactive furosemide 40 mg tablet RxNorm: 199284 1 Tablet(s) PO QAM No Start Date 06/20/2019 Inactive pravastatin 40 mg tablet RxNorm: 603347 1 Tablet(s) PO QD No Start Date 04/06/2019 Inactive Coumadin 2 mg tablet RxNorm: 353382 1 Tablet(s) PO Mon, Fri, Sat and Sun then 2 tablets (4mg) on , Thu and No Start Date 10/10/2019 Inactive isosorbide mononitrate ER 30 mg tablet,extended release 24 h r RxNorm: 920152 Tablet(s) PO as needed No Start Date [...] ER 10 mEq capsule,extended release RxNorm : 820106 1 Capsule(s) PO QD No Start Date 09/20/2019 Inactive levothyroxine 50 mcg tablet RxNorm: 549940 1 Tablet(s) PO QD No Sta rt Date 04/25/2019 Inactive Medication Administered No Medication Administered data Immunizations Vaccine Codes Date Status Influenza CVX: 135 07/02/2019 Results Observation Observation Code Item Item Code Result Date S ervice Location PT [id number] PT 31.4 Seconds 10/26/2019 Unknow n PT [id number] INR 2.9 10/26/2019 Unknown PT 3573663 PT 17.6 Seconds 10/11/2019 Unknow n PT 2784865 INR 1.4 10/11/2019 Unknown PT [id number] PT 23.7 Seconds 09/08/2019 Unknow n PT [id number] INR 2.0 09/08/2019 Unknown PT [id number] PT 23.2 Seconds 07/29/2019 Unknow n PT [id number] INR 2.0 07/29/2019 Unknown PT [id number] PT 14.3 Seconds 07/18/2019 Unknow n PT 0908909 INR 1.1 07/18/2019 [place] [address] Glucose 75 mg/dL 07/06 [place] [address] CREATININE 0.61 mg/dL [place] [address] BUN 15 mg/dL 07/06 [place] [address] SODIUM 142 mmol/L 06/23 [place] [address] POTASSIUM 4.0 mmol/L 06/23 [place] [address] CHLORIDE 106 mmol/L 06/23 [place] [address] Bicarbonate 28 mmol/[place] [address] AGAP 8 mmol/L 07/06 [place] [address] CALCIUM 9.3 mg/dL 07/06 Unknown PT [id number] PT 17.4 Seconds 07/06/2019 Unknow n PT [id number] INR 1.4 07/06/2019 Unknown GFR CALC 8518388 GFR Non Afr Amr >60 mL/min 07/06/2019 Un known GFR CALC 9282396 GFR Afr Amr >60 mL/min 07/06/2019 Unknow n COMPLETE BLOOD COUNT [id number] WBC 4.7 10e9/L 07/06/20 19 Unknown COMPLETE BLOOD COUNT 1064900 RBC 4.19 10e12/L 2018 Unknown COMPLETE BLOOD COUNT 8787306 HEMOGLOBIN 12.6 g/dL 07/06/20 19 Unknown COMPLETE BLOOD COUNT 1720838 HEMATOCRIT 39.4 % 07/06/20 19 Unknown COMPLETE BLOOD COUNT 4990974 MCV 94.0 fL 9 Unknown COMPLETE BLOOD COUNT 2008279 MCH 30.1 pg 9 Unknown COMPLETE BLOOD COUNT 6424959 MCHC 32.0 g/dL 9 Unknown COMPLETE BLOOD COUNT 8492698 PLATELET COUNT 160 10e9/L Unknown COMPLETE BLOOD COUNT 5561732 Mean Plt Volume 11.0 fL Unknown COMPLETE BLOOD COUNT 3499081 Neut Auto 56.6 % 9 Unknown COMPLETE BLOOD COUNT 3455363 Lymph Auto 27.0 % 07/06/20 19 Unknown COMPLETE BLOOD COUNT 3990658 [place] Auto 13.7 % 9 Unknown COMPLETE BLOOD COUNT 5169806 RDW 14.6 % 9 Unknown COMPLETE BLOOD COUNT 9102266 Eos Auto 2.1 % 9 Unknown COMPLETE BLOOD COUNT 7707560 Baso Auto 0.6 % 9 Unknown COMPLETE BLOOD COUNT 9997635 Neutrophil Abs 2.66 10e9/L Unknown COMPLETE BLOOD COUNT 5249019 Lymphocyte Abs 1.27 10e9/L Unknown COMPLETE BLOOD COUNT 6439019 Monocyte Abs 0.64 10e9/L 06/23 Unknown COMPLETE BLOOD COUNT 3186881 Eosinophil Abs 0.10 10e9/L Unknown COMPLETE BLOOD COUNT 6114006 RDW-SD 48.7 fL 9 Unknown COMPLETE BLOOD COUNT 0783185 Basophil Abs 0.03 10e9/L 06/23 Unknown COMPLETE BLOOD COUNT 6728223 WBC 4.6 10e9/L 06/14/20 19 Unknown COMPLETE BLOOD COUNT 8844199 RBC 4.16 10e12/L 2018 Unknown COMPLETE BLOOD COUNT 5160307 HEMOGLOBIN 12.6 g/dL 06/14/20 19 Unknown COMPLETE BLOOD COUNT 4055416 HEMATOCRIT 39.1 % 06/14/20 19 Unknown COMPLETE BLOOD COUNT 3500373 MCV 94.0 fL 9 Unknown COMPLETE BLOOD COUNT 5907136 MCH 30.3 pg 9 Unknown COMPLETE BLOOD COUNT 5732514 MCHC 32.2 g/dL 9 Unknown COMPLETE BLOOD COUNT 6461383 PLATELET COUNT 167 10e9/L Unknown COMPLETE BLOOD COUNT 0234471 Mean Plt Volume 10.9 fL Unknown COMPLETE BLOOD COUNT 0800658 Neut Auto 59.6 % 9 Unknown COMPLETE BLOOD COUNT 6516801 Lymph Auto 24.1 % 06/14/20 19 Unknown COMPLETE BLOOD COUNT 4172306 [place] Auto 14.0 % 9 Unknown COMPLETE BLOOD COUNT 2894940 RDW 14.8 % 9 Unknown COMPLETE BLOOD COUNT 1576255 Eos Auto 1.9 % 9 Unknown COMPLETE BLOOD COUNT 8820923 Baso Auto 0.4 % 9 Unknown COMPLETE BLOOD COUNT 8653373 Neutrophil Abs 2.74 10e9/L Unknown COMPLETE BLOOD COUNT 9030465 Lymphocyte Abs 1.11 10e9/L Unknown COMPLETE BLOOD COUNT 2924506 Monocyte Abs 0.64 10e9/L 05/24 Unknown COMPLETE BLOOD COUNT 6873739 Eosinophil Abs 0.09 10e9/L Unknown COMPLETE BLOOD COUNT 9280698 RDW-SD 49.3 fL 9 Unknown COMPLETE BLOOD COUNT 9335075 Basophil Abs 0.02 10e9/L 05/24 Unknown PT [id number] PT 22.3 Seconds 06/14/2019 Unknow n PT [id number] INR 1.9 06/14/2019 Unknown COMPLETE BLOOD COUNT 1615004 WBC 4.0 10e9/L 05/13/20 19 Unknown COMPLETE BLOOD COUNT 1496666 RBC 3.82 10e12/L 2018 Unknown COMPLETE BLOOD COUNT 4506216 HEMOGLOBIN 11.5 g/dL 05/13/20 19 Unknown COMPLETE BLOOD COUNT 9414162 HEMATOCRIT 36.4 % 05/13/20 19 Unknown COMPLETE BLOOD COUNT 0270813 MCV 95.3 fL 9 Unknown COMPLETE BLOOD COUNT 9151314 MCH 30.1 pg 9 Unknown COMPLETE BLOOD COUNT 2718180 MCHC 31.6 g/dL 9 Unknown COMPLETE BLOOD COUNT 8996697 PLATELET COUNT 175 10e9/L Unknown COMPLETE BLOOD COUNT 8501658 Mean Plt Volume 10.5 fL Unknown COMPLETE BLOOD COUNT 7610557 Neut Auto 63.2 % 9 Unknown COMPLETE BLOOD COUNT 1499993 Lymph Auto 22.0 % 05/13/20 19 Unknown COMPLETE BLOOD COUNT 1640355 [place] Auto 12.1 % 9 Unknown COMPLETE BLOOD COUNT 1289299 RDW 14.9 % 9 Unknown COMPLETE BLOOD COUNT 0174947 Eos Auto 2.2 % 9 Unknown COMPLETE BLOOD COUNT 5369272 Baso Auto 0.5 % 9 Unknown COMPLETE BLOOD COUNT 7417342 Neutrophil Abs 2.53 10e9/L Unknown COMPLETE BLOOD COUNT 0747421 Lymphocyte Abs 0.88 10e9/L Unknown COMPLETE BLOOD COUNT 2802621 Monocyte Abs 0.48 10e9/L 04/24 Unknown COMPLETE BLOOD COUNT 7555233 Eosinophil Abs 0.09 10e9/L Unknown COMPLETE BLOOD COUNT 8433734 RDW-SD 49.6 fL 9 Unknown COMPLETE BLOOD COUNT 9947346 Basophil Abs 0.02 10e9/L 04/24 Unknown COMPREHENSIVE METABOLIC 27862 AST 18 U/L 2018 Unknown COMPREHENSIVE METABOLIC 32453 ALT 14 U/L 2018 Unknown COMPREHENSIVE METABOLIC 65587 BUN 15 mg/dL 2018 Unknown COMPREHENSIVE METABOLIC 24880 ALBUMIN 4.0 g/dL 2018 Unknown COMPREHENSIVE METABOLIC 65608 CHLORIDE 108 mmol/L 05/13 Unknown COMPREHENSIVE METABOLIC 35896 Bili Total 0.9 mg/dL 05/13 Unknown COMPREHENSIVE METABOLIC 91291 ALK PHOS 84 U/L 2018 Unknown COMPREHENSIVE METABOLIC 49572 SODIUM 142 mmol/L 05/13 Unknown COMPREHENSIVE METABOLIC 82581 CREATININE 0.72 mg/dL 04/24 Unknown COMPREHENSIVE METABOLIC 58418 CALCIUM 8.9 mg/dL 2018 Unknown COMPREHENSIVE METABOLIC 94606 POTASSIUM 4.0 mmol/L 05/13 Unknown COMPREHENSIVE METABOLIC 58976 Total Protein 5.5 g/dL Unknown COMPREHENSIVE METABOLIC 74155 Glucose 95 mg/dL 2018 Unknown COMPREHENSIVE METABOLIC 74242 Bicarbonate 27 mmol/L 04/24 Unknown COMPREHENSIVE METABOLIC 63255 AGAP 7 mmol/L 2018 Unknown GFR CALC 3121078 GFR Non Afr Amr >60 mL/min 05/13/2019 Un known GFR CALC 4942872 GFR Afr Amr >60 mL/min 05/13/2019 Unknow n THYROID STIMULATING HORMONE 94808 TSH 2.669 uIU/mL 05/13/2019 Unknown FREE T4 47209 T4 Free 1.19 ng/dL 05/13/2019 Unknown PT 8550411 PT 24.2 Seconds 05/06/2019 Unknow n PT 4203819 INR 2.1 05/06/2019 Unknown PT 1139248 PT 24.1 Seconds 03/08/2019 Unknow n PT 6726916 INR 2.9 03/08/2019 Unknown Procedures Procedure Codes Date PROTHROMBIN TIME CPT-4: 25019 10/26/2019 ROUTINE VENIPUNCTURE CPT-4: 68074 10/26/2019 ROUTINE VENIPUNCTURE CPT-4: 08946 10/11/2019 PT CPT-4: 9955847 10/11/2019 PPPS, initial visit CPT-4: G0438 09/20/2019 ROUTINE VENIPUNCTURE CPT-4: 24604 09/08/2019 PT CPT-4: 0777932 09/08/2019 THER/PROPH/DIAG INJ SC/IM CPT-4: 08575 09/08/2019 TRIAMCINOLONE ACET INJ NOS CPT-4: J3301 09/08/2019 ROUTINE VENIPUNCTURE CPT-4: 55656 07/29/2019 PT CPT-4: 1537618 07/29/2019 ROUTINE VENIPUNCTURE CPT-4: 63670 07/18/2019 PT CPT-4: 2482955 07/18/2019 METABOLIC PANEL TOTAL CA CPT-4: 60942 07/06/2019 COMPLETE CBC W/AUTO DIFF WBC CPT-4: 26858 07/06/2019 PROTHROMBIN TIME CPT-4: 85241 07/06/2019 ROUTINE VENIPUNCTURE CPT-4: 47908 06/14/2019 PROTHROMBIN TIME CPT-4: 41332 06/14/2019 COMPLETE CBC W/AUTO DIFF WBC CPT-4: 40440 06/14/2019 ROUTINE VENIPUNCTURE CPT-4: 05973 05/13/2019 COMPREHEN METABOLIC PANEL CPT-4: 06193 05/13/2019 COMPLETE CBC W/AUTO DIFF WBC CPT-4: 61428 05/13/2019 ASSAY THYROID STIM HORMONE CPT-4: 18276 05/13/2019 ASSAY OF FREE THYROXINE CPT-4: 01894 05/13/2019 PT CPT-4: 6262719 05/06/2019 ROUTINE VENIPUNCTURE CPT-4: 21364 05/06/2019 PT CPT-4: 3439799 04/07/2019 ROUTINE VENIPUNCTURE CPT-4: 36173 04/07/2019 ROUTINE VENIPUNCTURE CPT-4: 69789 03/08/2019 PROTHROMBIN TIME CPT-4: 42937 03/08/2019 Vital Signs Date Vital 10/31/2019 Blood Pressure 1: 170/100 Code: 8480-6 Heart Rat e 1: 70 bpm Respiratory Rate: 18 bpm 10/11/2019 Blood Pressure 1: 132/78 Code: 8480-6 Heart Rate 1: 89 bpm SpO2: 99% Temperature: 36.7 (C) / 98.1 (F) Weight: 204 lbs 09/20/2019 Blood Pressure 1: 122/68 Code: 8480-6 BMI: 35.0 Code: 92767-1 Heart Rate 1: 72 bpm Height: 5'3" [...] 1: 114/78 Code: 8480-6 BMI: 36.1 Code: 11588-5 Heart Rate 1: 76 bpm Height: 5'3" [...] pressure check 03/22/2019 ~generic 03/08/2019 New Patient---joshua sweell visit Encounters Encounter Performer Location Codes Date (01467) OFFICE/OUTPATIENT VISIT EST Diagnosis: Fall as cause of accidental injury at home as place of occurrence[ICD10: W19.XXXA] Diagnosis: Headache[ICD10: R51] Diagnosis: Essential (primary) hypertension[ICD10: I10] Diagnosis: Long-term (current) use of anticoagulants, INR goal 2.0-3.0[ICD10: Z79.01] Diagnosis: Ecchymosis of left eye[ICD10: S05.12XA] Jannette GUERRA [facility] CPT-4: 57672 10/31/2019 ([id number]) NURSE/OUTPATIENT VISIT EST Diagnosis: Long-term (current) use of anticoagulants, INR goal 2.0-3.0[ICD10: Z79.01] Becki Hernandez [facility] CPT-4: 28843 10/26/2019 ([id number]) OFFICE/OUTPATIENT VISIT EST Diagnosis: Long-term (current) use of anticoagulants, INR goal 2.0-3.0[ICD10: Z79.01] Diagnosis: Pain in right arm[ICD10: M79.601] Diagnosis: Radiculopathy of arm[ICD10: M54.10] Jannette HAMILTON [facility] CPT-4: 94630 10/11/2019 ([id number]) OFFICE/OUTPATIENT VISIT EST Diagnosis: Long-term (current) use of anticoagulants, INR goal 2.0-3.0[ICD10: Z79.01] Diagnosis: Sinusitis[ICD10: J32.9] Diagnosis: Pain in right arm[ICD10: M79.601] Jannette BLACK [facility] CPT-4: 87107 09/08/2019 ([id number]) NURSE/OUTPATIENT VISIT EST Diagnosis: Chronic atrial fibrillation[ICD10: I48.2] Diagnosis: Encounter for therapeutic drug level monitoring[ICD10: Z51.81] Becki BLACK [facility] CPT-4: 59613 07/29/2019 ([id number]) NURSE/OUTPATIENT VISIT EST Diagnosis: Chronic atrial fibrillation[ICD10: I48.2] Diagnosis: Encounter for therapeutic drug level monitoring[ICD10: Z51.81] Becki BLACK [facility] CPT-4: 49979 07/18/2019 ([id number]) NURSE/OUTPATIENT VISIT EST Diagnosis: Encounter for therapeutic drug level monitoring[ICD10: Z51.81] Diagnosis: Chronic atrial fibrillation[ICD10: I48.2] Diagnosis: Essential (primary) hypertension[ICD10: I10] Becki BLACK [facility] CPT-4: 88689 07/06/2019 ([id number]) OFFICE/OUTPATIENT VISIT EST Diagnosis: Encounter for therapeutic drug level monitoring[ICD10: Z51.81] Diagnosis: Anemia, unspecified[ICD10: D64.9] Diagnosis: Bitten by dog, sequela[ICD10: W54.0XXS] 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] Becki BLACK [facility] CPT-4: 48798 06/14/2019 ([id number]) OFFICE/OUTPATIENT VISIT EST Diagnosis: Bitten by dog, sequela[ICD10: W54.0XXS] Diagnosis: Other fatigue[ICD10: R53.83] Diagnosis: Hypothyroidism, unspecified[ICD10: E03.9] Diagnosis: Muscle weakness (generalized)[ICD10: M62.81] Diagnosis: Generalized anxiety disorder[ICD10: F41.1] Jannette BLACK [facility] CPT-4: 12041 05/13/2019 ([id number]) NURSE/OUTPATIENT VISIT EST Diagnosis: Encounter for therapeutic drug level monitoring[ICD10: Z51.81] Becki BLACK DO [employer] CPT-4: 59816 05/06/2019 ([id number]) OFFICE/OUTPATIENT VISIT EST Diagnosis: Bitten by dog, sequela[ICD10: W54.0XXS] Diagnosis: Pain in right wrist[ICD10: M25.531] Diagnosis: Abrasion of right upper arm, sequela[ICD10: S40.811S] Diagnosis: Abrasion of left upper arm, sequela[ICD10: S40.812S] Jannette BLACK [facility] CPT-4: 61105 05/02/2019 ([id number]) NURSE/OUTPATIENT VISIT EST Diagnosis: Encounter for therapeutic drug level monitoring[ICD10: Z51.81] Becki BLACK [facility] CPT-4: 17313 04/07/2019 ([id number]) OFFICE/OUTPATIENT VISIT NEW Diagnosis: Encounter for therapeutic drug level monitoring[ICD10: Z51.81] Diagnosis: Chronic atrial fibrillation[ICD10: I48.2] Diagnosis: Essential (primary) hypertension[ICD10: I10] Diagnosis: Abnormal findings on diagnostic imaging of heart and coronary circulation[ICD10: R93.1] Diagnosis: Other forms of dyspnea[ICD10: R06.09] Diagnosis: Hypothyroidism, unspecified[ICD10: E03.9] Diagnosis: Mixed hyperlipidemia[ICD10: E78.2] Becki BLACK [facility] CPT-4: 84349 03/08/2019 Plan of Care Planned Activity Notes Codes Status Date Care Plan: CT HEAD/BRAIN W/O DYE LOINC : 86240-4 Pending 11/01/2019 Visit Diagnosis Plan: Headache Discussion: [...] ICD-10 : I10 10/31/2019 Appointment: Jannette Mayen [address] [place] [address] Hospital Follow Up 10/31/2019 Patient Education: High Blood Pressure Co mpleted 10/31/2019 Patient Education: losartan- [employer] Coupon [id number] https://www.[employer]/sampleMobileDataforce/resources/getResource/61/6l906272-9l80-0221-8c Completed 10/31/2019 Appointment: Becki Black WPtel: [facility] FOLLOW UP 10/26/2019 Visit Diagnosis Plan: Radiculopathy of arm Discussion: flexeril prescribed to take as needed. will start at low dose but instructed patient to call office if not effective and will increase mg dose. PT ordered at [facility] to assist with pain. if no improvement or worsening from PT, will need imaging. ICD-9 : 723.4 ICD-10 : M54.10 10/11/2019 Visit Diagnosis Plan: Long-term (current ) use of anticoagulants, INR goal 2.0-3.0 Discussion: will update pt/inr ICD-9 : V58.61 ICD-10 : Z79.01 10/11/2019 Appointment: Jannette Mayen [address] [place], [place] [id number] ACUTE ILLNESS 10/11/2019 Patient Education: cyclobenzaprine- [employer] Coupon [id number] https://www.[employer]/samplemd/resources/getResource/61/[email or web address] Completed 10/11/2019 Visit Diagnosis Plan: Mixed hyperlipidemia [...] on right--dscussed stretches, massage, accupuncture---patient had hired deadener ICD-9 : 906.1 ICD-10 : W54.0XXS 09/20/2019 Visit Diagnosis Plan: Encounter for [facility] adult medical examination without abnormal findings Discussion: Mediterranean diet Combinati on of cardio and weight bearing exercise Had flu shot Update mammogram ICD-9 : V70.9 ICD-10 : Z00.00 09/20/2019 Appointment: Becki Black WPtel: [phone] [facility] Annual Well Visit 09/20/2019 Visit Diagnosis Plan: [...] ICD-10 : Z79.01 09/08/2019 Appointment: Jannette Mayen [address] [place], [place] [address] ACUTE ILLNESS 09/08/2019 Appointment: Becki Black WPtel: [address] [place] [address] US CANCELED 08/16/2019 Appointment: Becki Black WPtel: [address] [place], [place] [id number] US LAB 07/29/2019 Appointment: Becki Black WPtel: [address] [place], [place] [phone] US LAB 07/18/2019 Appointment: Becki Black WPtel: [address] [place] [address] US LAB 07/06/2019 Visit Diagnosis Plan: Encounter [...] : W54.0XXS 06/14/2019 Appointment: Becki Black WPtel: [address] [place], [place] [phone] US FOLLOW UP 06/14/2019 Visit Diagnosis Plan: [...] hydrocodone several days ago. will refer to [facility] as well to discuss concerns. ICD-9 : 300.02 ICD-10 : F41.1 05/13/2019 Appointment: Jannette Mayen [address] [place], [place] [address] FOLLOW UP 05/13/2019 Patient Education: carvedilol- Opt[employer] Coupon [id number] https://www.[employer]/samplemd/resources/getResource/61/51o0w100-3dgy-7518-4n Completed 05/13/2019 Patient Education: Xanax- [employer] Coupon [id number] https://www.[employer]/samplemd/resources/getResource/61/[email or web address]-v4 1e-8o65836216d2.pdf Completed 05/13/2019 [facility]ment[facility] [phone] [facility] [facility] 05/06/2019 Visit Diagnosis Plan: Pain in right wrist Discussion: xray ordered of wrist to rule out acute fracture. will send results to dr. portillo at [facility]. ICD-9 : 719.43 ICD-10 : M25.531 05/02/2019 [...] ICD-10 : S40.811S 05/02/2019 Appointment: Jannette Mayen [address] [place] [address] ACUTE ILLNESS 05/02/2019 Care Plan: X-RAY EXAM OF WRIST right LOINC : 3 7302-7 Pending 05/02/2019 Appointment: Becki Black WPtel: [address] [place] [address] LAB 04/07/2019 Appointment: Becki Black WPtel: [address] [place] [address] BP CHECK 03/22/2019 Visit Diagnosis Plan: Abnormal [...] 03/08/2019 Appointment: [facility]el[facility] [phone] [facility] NEW PATIENT 03/08/2019 Instructions No Instructions Medical Equipment No Medical Equipment data Health Concerns Section Health Concerns data not found Goals Section Goals data not found Interventions Section Interventions data not found Health Status Evaluations/Outcomes Section Health Status Evaluations/Outcomes data not found Advance Directives No Advance Directive data
--- OUTSIDE RECORDS SUMMARY | 2019-11-24 06:55 | XMS REPORT | CCD ---
Author Author Tricia Black D.O. Organization [facility] Address [address] [place] [address] Phone Care Team Providers Care Cashier Payments Received Name Role Phone PP Unavailable CCM Unavailable Summary Purpose Interface Exchange Insurance Providers Payer name Policy type / Coverage type Covered republican ID Effective Begin Date Effective End Date WPS MEDICARE PART B [place] Medicare Part B [id number] Unknown Unknown United [employer] Medicare Part B [id number] Unknown Unknown Family history Grandmother Diagnosis [...] Retir ed 03/08/[address]: 425648663 Has never smoked or chewed tobacco 03/08/[address]: 615599 Currently drinks alcohol 03/08/2019 Has the patient [...] 30 mg tablet,extended release 24 hr RxNorm: 499756 Tablet(s) 1 TABLET(S) PO NEEDED 06/27/2019 12/23/2019 Active Neris ent requests 90 days supply carvedilol 25 mg tablet RxNorm: 874106 1 TABLET(S) PO BID 06/27/2019 12/23/2019 Active isosorbide mononitra te ER 30 mg tablet,extended release 24 hr RxNorm: 384275 1 Tablet(s) PO QD as needed 06/27/2019 06/27/2019 Inactive Patient requests 90 days supply furosemide 40 mg tablet RxNorm: 610920 1 Tablet(s) PO QAM 06/21/2019 12/17/2019 Active Xanax 0.25 mg tablet RxNorm: 236649 1/2 Tablet(s) PO Q6H as needed 05/13/2019 No Stop Date Active carvedilol 25 mg tablet RxNorm: 168332 1 Tablet(s) PO BID 05/13/2019 06/26/2019 Inactive levothyroxine 50 mcg tablet RxNorm: 127319 1 Tablet(s) PO QD 04/26/2019 10/22/2019 Active losartan 50 mg tablet RxNorm: 000607 1 Tablet(s) PO QD 04/26/2019 10/22/2019 Active losartan 50 mg tablet RxNorm: 384248 1 Tablet(s) PO QD 04/20/2019 04/25/2019 Inactive pravastatin 40 mg ta blet RxNorm: 195484 1 Tablet(s) PO QD 04/07/2019 06/05/2019 Inactive isosorbide mononitra te ER 30 mg tablet,extended release 24 hr RxNorm: 483014 1 Tablet(s) PO as needed 04/07/2019 04/06/2019 Inactive isosorbide mononitra te ER 30 mg tablet,extended release 24 hr RxNorm: 321237 1 TABLET(S) PO NEEDED 04/07/2019 06/26/2019 Inactive Patient requests 90 days supply losartan 50 mg tablet RxNorm: 404986 1 Tablet(s) PO QD 03/22/2019 06/18/2019 Inactive Ventolin HFA 90 mcg/ actuation aerosol inhaler RxNorm: 222665 1-2 Puff(s) INH as ne eded No Start Date Active Coumadin 2 mg tablet RxNorm: 917079 1 Tablet(s) PO Mon, Fri, Sat and [...] E R 10 mEq capsule,extended release RxNorm: 900720 1 Capsule(s) PO QD No Start Date Active carvedilol 25 mg tablet RxNorm: 093698 1 Tablet(s) PO BID No Start Date 05/12/2019 Inactive losartan 50 mg tablet RxNorm: 839534 1 Tablet(s) PO QD No Start Date 03/21/2019 Inactive furosemide 40 mg tablet RxNorm: 534881 1 Tablet(s) PO QAM No Start Date 06/20/2019 Inactive pravastatin 40 mg ta blet RxNorm: 044673 1 Tablet(s) PO QD No Start Date 04/06/2019 Inactive isosorbide mononitra te ER 30 mg tablet,extended release 24 hr RxNorm: 437966 Tablet(s) PO as needed No Start Date 04/06/2019 Inactive levothyroxine 50 mcg tablet RxNorm: 616900 1 Tablet(s) PO QD No Start Date [...] Code Item Item Code Result Date PT 0067387 PT 14.3 Seconds 07/18/2019 PT 5980464 INR 1.1 07/18/2019 [place] [address] Glucose 75 mg/dL 07/06/2019 [place] [address] CREATININE 0.61 mg/dL 07/06/2019 [place] [address] BUN 15 mg/dL 07/06/2019 [place] [address] SODIUM 142 mmol/L 07/06/2019 [place] [address] POTASSIUM 4.0 mmol/L 07/06/2019 [place] [address] CHLORIDE 106 mmol/L 07/06/2019 [place] [address] Bicarbonate 28 mmol/L 07/06/2019 [place] [address] AGAP 8 mmol/L 07/06/2019 [place] [address] CALCIUM 9.3 mg/dL 07/06/2019 PT 8184634 PT 17.4 Seconds 07/06/2019 PT 1964548 INR 1.4 07/06/2019 GFR CALC 2018737 GFR Non Afr Amr >60 mL/min 07/06/2019 GFR CALC 3315256 GFR Afr Amr >60 mL/min 07/06/2019 COMPLETE BLOOD COUNT 5100894 WBC 4.7 10e9/L 07/06/2019 COMPLETE BLOOD COUNT 1601003 RBC 4.19 10e12/L 9 COMPLETE BLOOD COUNT 7926909 HEMOGLOBIN 12.6 g/dL 07/06/2019 COMPLETE BLOOD COUNT 1936938 HEMATOCRIT 39.4 % 07/06/2019 COMPLETE BLOOD COUNT 3190181 MCV 94.0 fL 07/06/2019 COMPLETE BLOOD COUNT 3580416 MCH 30.1 pg 07/06/2019 COMPLETE BLOOD COUNT 5953616 MCHC 32.0 g/dL 07/06/2019 COMPLETE BLOOD COUNT 3588306 PLATELET COUNT 160 10e9/L 07/06/2019 COMPLETE BLOOD COUNT 6008281 Mean Plt Volume 11.0 fL 07/06/2019 COMPLETE BLOOD COUNT 6221702 Neut Auto 56.6 % 07/06/2019 COMPLETE BLOOD COUNT 1109830 Lymph Auto 27.0 % 07/06/2019 COMPLETE BLOOD COUNT 5690449 Otero Auto 13.7 % 07/06/2019 COMPLETE BLOOD COUNT 3621542 RDW 14.6 % 07/06/2019 COMPLETE BLOOD COUNT 4402131 Eos Auto 2.1 % 07/06/2019 COMPLETE BLOOD COUNT 0373054 Baso Auto 0.6 % 07/06/2019 COMPLETE BLOOD COUNT 5530687 Neutrophil Abs 2.66 10e9/L 07/06/2019 COMPLETE BLOOD COUNT 7303408 Lymphocyte Abs 1.27 10e9/L 07/06/2019 COMPLETE BLOOD COUNT 5591492 Monocyte Abs 0.64 10e9/L 07/06/2019 COMPLETE BLOOD COUNT 3899950 Eosinophil Abs 0.10 10e9/L 07/06/2019 COMPLETE BLOOD COUNT 8763560 RDW-SD 48.7 fL 07/06/2019 COMPLETE BLOOD COUNT 7551422 Basophil Abs 0.03 10e9/L 07/06/2019 COMPLETE BLOOD COUNT 7156351 WBC 4.6 10e9/L 06/14/2019 COMPLETE BLOOD COUNT 4683687 RBC 4.16 10e12/L 9 COMPLETE BLOOD COUNT 7189446 HEMOGLOBIN 12.6 g/dL 06/14/2019 COMPLETE BLOOD COUNT 7660062 HEMATOCRIT 39.1 % 06/14/2019 COMPLETE BLOOD COUNT 6965185 MCV 94.0 fL 06/14/2019 COMPLETE BLOOD COUNT 1776127 MCH 30.3 pg 06/14/2019 COMPLETE BLOOD COUNT 6270357 MCHC 32.2 g/dL 06/14/2019 COMPLETE BLOOD COUNT 2422086 PLATELET COUNT 167 10e9/L 06/14/2019 COMPLETE BLOOD COUNT 1658992 Mean Plt Volume 10.9 fL 06/14/2019 COMPLETE BLOOD COUNT 3649891 Neut Auto 59.6 % 06/14/2019 COMPLETE BLOOD COUNT 4189949 Lymph Auto 24.1 % 06/14/2019 COMPLETE BLOOD COUNT 8518241 Otero Auto 14.0 % 06/14/2019 COMPLETE BLOOD COUNT 2160076 RDW 14.8 % 06/14/2019 COMPLETE BLOOD COUNT 4071720 Eos Auto 1.9 % 06/14/2019 COMPLETE BLOOD COUNT 5252380 Baso Auto 0.4 % 06/14/2019 COMPLETE BLOOD COUNT 7811084 Neutrophil Abs 2.74 10e9/L 06/14/2019 COMPLETE BLOOD COUNT 5053224 Lymphocyte Abs 1.11 10e9/L 06/14/2019 COMPLETE BLOOD COUNT 4786399 Monocyte Abs 0.64 10e9/L 06/14/2019 COMPLETE BLOOD COUNT 1282313 Eosinophil Abs 0.09 10e9/L 06/14/2019 COMPLETE BLOOD COUNT 6939122 RDW-SD 49.3 fL 06/14/2019 COMPLETE BLOOD COUNT 8701551 Basophil Abs 0.02 10e9/L 06/14/2019 PT 3107642 PT 22.3 Seconds 06/14/2019 PT 6246598 INR 1.9 06/14/2019 COMPLETE BLOOD COUNT 7304222 WBC 4.0 10e9/L 05/13/2019 COMPLETE BLOOD COUNT 5419364 RBC 3.82 10e12/L 9 COMPLETE BLOOD COUNT 2150031 HEMOGLOBIN 11.5 g/dL 05/13/2019 COMPLETE BLOOD COUNT 7678009 HEMATOCRIT 36.4 % 05/13/2019 COMPLETE BLOOD COUNT 3133690 MCV 95.3 fL 05/13/2019 COMPLETE BLOOD COUNT 4777037 MCH 30.1 pg 05/13/2019 COMPLETE BLOOD COUNT 2503784 MCHC 31.6 g/dL 05/13/2019 COMPLETE BLOOD COUNT 8365172 PLATELET COUNT 175 10e9/L 05/13/2019 COMPLETE BLOOD COUNT 1957518 Mean Plt Volume 10.5 fL 05/13/2019 COMPLETE BLOOD COUNT 5233936 Neut Auto 63.2 % 05/13/2019 COMPLETE BLOOD COUNT 9362986 Lymph Auto 22.0 % 05/13/2019 COMPLETE BLOOD COUNT 1053785 Otero Auto 12.1 % 05/13/2019 COMPLETE BLOOD COUNT 1151744 RDW 14.9 % 05/13/2019 COMPLETE BLOOD COUNT 6130328 Eos Auto 2.2 % 05/13/2019 COMPLETE BLOOD COUNT 5259242 Baso Auto 0.5 % 05/13/2019 COMPLETE BLOOD COUNT 1324418 Neutrophil Abs 2.53 10e9/L 05/13/2019 COMPLETE BLOOD COUNT 8521335 Lymphocyte Abs 0.88 10e9/L 05/13/2019 COMPLETE BLOOD COUNT 8096456 Monocyte Abs 0.48 10e9/L 05/13/2019 COMPLETE BLOOD COUNT 0083986 Eosinophil Abs 0.09 10e9/L 05/13/2019 COMPLETE BLOOD COUNT 1042777 RDW-SD 49.6 fL 05/13/2019 COMPLETE BLOOD COUNT 2484968 Basophil Abs 0.02 10e9/L 05/13/2019 COMPREHENSIVE METABOLIC 85261 AST 18 U/L 05/13/2019 COMPREHENSIVE METABOLIC 17337 ALT 14 U/L 05/13/2019 COMPREHENSIVE METABOLIC 20436 BUN 15 mg/dL 05/13/2019 COMPREHENSIVE METABOLIC 27680 ALBUMIN 4.0 g/dL 05/13/2019 COMPREHENSIVE METABOLIC 59146 CHLORIDE 108 mmol/L 05/13/2019 COMPREHENSIVE METABOLIC 03782 Bili Total 0.9 mg/dL 05/13/2019 COMPREHENSIVE METABOLIC 16837 ALK PHOS 84 U/L 05/13/2019 COMPREHENSIVE METABOLIC 10899 SODIUM 142 mmol/L 05/13/2019 COMPREHENSIVE METABOLIC 65479 CREATININE 0.72 mg/dL 05/13/2019 COMPREHENSIVE METABOLIC 45027 CALCIUM 8.9 mg/dL 05/13/2019 COMPREHENSIVE METABOLIC 27739 POTASSIUM 4.0 mmol/L 05/13/2019 COMPREHENSIVE METABOLIC 79581 Total Protein 5.5 g/dL 05/13/2019 COMPREHENSIVE METABOLIC 26857 Glucose 95 mg/dL 05/13/2019 COMPREHENSIVE METABOLIC 58008 Bicarbonate 27 mmol/L 05/13/2019 COMPREHENSIVE METABOLIC 15840 AGAP 7 mmol/L 05/13/2019 GFR CALC 3121254 GFR Non Afr Amr >60 mL/min 05/13/2019 GFR CALC 3478771 GFR Afr Amr >60 mL/min 05/13/2019 THYROID STIMULATING HORMONE 01784 TSH 2.669 uIU/mL 9 FREE T4 89477 T4 Free 1.19 ng/dL 05/13/2019 PT 1430597 PT 24.2 Seconds 05/06/2019 PT 1206888 INR 2.1 05/06/2019 PT 6605924 PT 24.1 Seconds 03/08/2019 PT 8334218 INR 2.9 03/08/2019 Review of Systems System [...] Procedures Procedure Codes Date ROUTINE VENIPUNCTURE CPT-4: 40601 07/29/2019 PT CPT-4: 7949419 07/29/2019 ROUTINE VENIPUNCTURE CPT-4: 19921 07/18/2019 PT CPT-4: 8422237 07/18/2019 METABOLIC PANEL TOTA L CA CPT-4: 74476 07/06/2019 COMPLETE CBC W/AUTO DIFF WBC CPT-4: 84852 07/06/2019 PROTHROMBIN TIME CPT-4: 01385 07/06/2019 ROUTINE VENIPUNCTURE CPT-4: 03630 06/14/2019 PROTHROMBIN TIME CPT-4: 89702 06/14/2019 COMPLETE CBC W/AUTO DIFF WBC CPT-4: 16985 06/14/2019 ROUTINE VENIPUNCTURE CPT-4: 34179 05/13/2019 COMPREHEN METABOLIC PANEL CPT-4: 91745 05/13/2019 COMPLETE CBC W/AUTO DIFF WBC CPT-4: 54499 05/13/2019 ASSAY THYROID STIM H ORMONE CPT-4: 09027 05/13/2019 ASSAY OF FREE THYROXINE CPT-4: 59895 05/13/2019 PT CPT-4: 5180945 05/06/2019 ROUTINE VENIPUNCTURE CPT-4: 81964 05/06/2019 PT CPT-4: 2117114 04/07/2019 ROUTINE VENIPUNCTURE CPT-4: 23214 04/07/2019 ROUTINE VENIPUNCTURE CPT-4: 85641 03/08/2019 PROTHROMBIN TIME CPT-4: 52265 03/08/2019 Vital Signs Date Vital 06/14/2019 Blood [...] 1: 114/78 Code: 8480-6 BMI: 36.1 Code: 22825-0 Heart Rate 1: 76 bpm Height: 5'3" [...] adulthood 03/08/2019 has had extensive workup in [place] including PFT, cardiac cath and tried numerous modalities including inhalers with no improvement--most recent cath showed blockage in small arteries so given imdur but has not started this routinely Advance Directives No Advance Directive data Encounters Encounter Performer Loca tion Codes Date ([id number]) NURSE/OUTPAT IENT VISIT EST Diagnosis: Chronic atrial fibrillation[ICD10: I48.2] Diagnosis: Encounter for therapeutic drug level monitoring[ICD10: Z51.81] Becki Hernandez FipeoKATIE Loudr CPT-4: 65451 07/29/2019 ([id number]) NURSE/OUTPAT IENT VISIT EST Diagnosis: Chronic atrial fibrillation[ICD10: I48.2] Diagnosis: Encounter for therapeutic drug level monitoring[ICD10: Z51.81] Becki BLACK [place]r CPT-4: 27612 07/18/2019 ([id number]) NURSE/OUTPAT IENT VISIT EST Diagnosis: Encounter for therapeutic drug level monitoring[ICD10: Z51.81] Diagnosis: Chronic atrial fibrillation[ICD10: I48.2] Diagnosis: Essential (primary) hypertension[ICD10: I10] Becki WILSON [place] CPT-4: 42447 07/06/2019 ([id number]) OFFICE/OUTPA TIENT VISIT EST Diagnosis: Encounter for therapeutic drug level monitoring[ICD10: Z51.81] Diagnosis: Anemia, unspecified[ICD10: D64.9] Diagnosis: Bitten by dog, sequela[ICD10: W54.0XXS] 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] Becki WILSON [place]r CPT-4: 99723 06/14/2019 ([id number]) OFFICE/OUTPA TIENT VISIT EST Diagnosis: Bitten by dog, sequela[ICD10: W54.0XXS] Diagnosis: Other fatigue[ICD10: R53.83] Diagnosis: Hypothyroidism, unspecified[ICD10: E03.9] Diagnosis: Muscle weakness (generalized)[ICD10: M62.81] Diagnosis: Generalized anxiety disorder[ICD10: F41.1] Jannette PINZON [place]r CPT-4: 09795 05/13/2019 ([id number]) NURSE/OUTPAT IENT VISIT EST Diagnosis: Encounter for therapeutic drug level monitoring[ICD10: Z51.81] Becki BLACK [place] CPT-4: 52737 05/06/2019 ([id number]) OFFICE/OUTPA TIENT VISIT EST Diagnosis: Bitten by dog, sequela[ICD10: W54.0XXS] Diagnosis: Pain in right wrist[ICD10: M25.531] Diagnosis: Abrasion of right upper arm, sequela[ICD10: S40.811S] Diagnosis: Abrasion of left upper arm, sequela[ICD10: S40.812S] Jannette PINZON [place]r CPT-4: 41413 05/02/2019 ([id number]) NURSE/OUTPAT IENT VISIT EST Diagnosis: Encounter for therapeutic drug level monitoring[ICD10: Z51.81] Becki BLACK [place]r CPT-4: 23872 04/07/2019 ([id number]) OFFICE/OUTPA TIENT VISIT NEW Diagnosis: Encounter for therapeutic drug level monitoring[ICD10: Z51.81] Diagnosis: Chronic atrial fibrillation[ICD10: I48.2] Diagnosis: Essential (primary) hypertension[ICD10: I10] Diagnosis: Abnormal findings on diagnostic imaging of heart and coronary circulation[ICD10: R93.1] Diagnosis: Other forms of dyspnea[ICD10: R06.09] Diagnosis: Hypothyroidism, unspecified[ICD10: E03.9] Diagnosis: Mixed hyperlipidemia[ICD10: E78.2] Becki Black BECKI OfeAxel ESTUARDO WILSON [facility] CPT-4: 30295 03/08/2019 Plan of Care Planned Activity Notes C odes Status Date Appointment: Becki Black WPtel: [address] [place], [place] [id number] US LAB 07/18/2019 Appointment: Becki Black WPtel: [phone] [facility] US LAB 07/06/2019 Visit Diagnosis Plan: Bitten [...] : L90.5 06/14/2019 Appointment: Becki Black WPtel: [address] [place], [place] [phone] US FOLLOW UP 06/14/2019 Visit Diagnosis Plan: [...] refer to [facility] as wel l to discuss concerns. ICD-9 : 300.02 ICD-10 : F41.1 05/13/2019 Appointment: Jannette Mayen [address] [place], [place] [id number] FOLLOW UP 05/13/2019 Patient Education: carvedilol- [employer] Coupon [id number] [email or web address]/samplemd/resources/getResource/[email or web address] Completed 05/13/2019 Patient Education: Xanax- [employer] Coupon [id number] [email or web address]/samplemd/resources/getResource/[email or web address] Completed 05/13/2019 Appointment: Becki Black [facility]el[facility] [phone] [facility] [place] [facility] 05/06/2019 Visit Diagnosis Plan: Abrasion [...] send results to dr. portillo at [facility]. ICD-9 : 719.43 ICD-10 : M25.531 05/02/2019 Appointment: Jannette Mayen [address] [place] [address] ACUTE ILLNESS 05/02/2019 Care Plan: X-RAY EXAM OF WRIST right LOINC : 00588-4 Pending 05/02/2019 Appointment: Becki Black WPtel: [address] [place] [address] LAB 04/07/2019 Appointment: Becki Black WPtel: [address] [place] [address] BP CHECK 03/22/2019 Visit Diagnosis Plan: Abnormal [...] R06.09 03/08/2019 Appointment: Becki Black WPtel: [phone] [facility] [place] NEW PATIENT 03/08/2019 Instructions No Instructions
--- OUTSIDE RECORDS SUMMARY | 2019-11-24 06:55 | XMS REPORT | CCD ---
Author Author Tricia Black D.O. Organization [facility] Address [address] [place] [address] Phone Care Team Providers Care Vehicle Service Agent Name Role Phone PP Unavailable CCM Unavailable Summary Purpose Interface Exchange Insurance Providers Payer name Policy type / Coverage type Covered constitution party ID Effective Begin Date Effective End Date WPS MEDICARE PART B [place] Medicare Part B [id number] Unknown Unknown [facility] Medicare Part B [id number] Unknown Unknown Family history Grandmother Diagnosis [...] Retir ed 03/08/[address]: 727770389 Has never smoked or chewed tobacco 03/08/[address]: 956752 Currently drinks alcohol 03/08/2019 Has the patient [...] 30 mg tablet,extended release 24 hr RxNorm: 280876 Tablet(s) 1 TABLET(S) PO NEEDED 06/27/2019 12/23/2019 Active Neris ent requests 90 days supply carvedilol 25 mg tablet RxNorm: 174056 1 TABLET(S) PO BID 06/27/2019 12/23/2019 Active isosorbide mononitra te ER 30 mg tablet,extended release 24 hr RxNorm: 670140 1 Tablet(s) PO QD as needed 06/27/2019 06/27/2019 Inactive Patient requests 90 days supply furosemide 40 mg tablet RxNorm: 040720 1 Tablet(s) PO QAM 06/21/2019 12/17/2019 Active Xanax 0.25 mg tablet RxNorm: 014628 1/2 Tablet(s) PO Q6H as needed 05/13/2019 No Stop Date Active carvedilol 25 mg tablet RxNorm: 691317 1 Tablet(s) PO BID 05/13/2019 06/26/2019 Inactive levothyroxine 50 mcg tablet RxNorm: 579862 1 Tablet(s) PO QD 04/26/2019 10/22/2019 Active losartan 50 mg tablet RxNorm: 136769 1 Tablet(s) PO QD 04/26/2019 10/22/2019 Active losartan 50 mg tablet RxNorm: 105938 1 Tablet(s) PO QD 04/20/2019 04/25/2019 Inactive pravastatin 40 mg ta blet RxNorm: 755693 1 Tablet(s) PO QD 04/07/2019 06/05/2019 Inactive isosorbide mononitra te ER 30 mg tablet,extended release 24 hr RxNorm: 071657 1 Tablet(s) PO as needed 04/07/2019 04/06/2019 Inactive isosorbide mononitra te ER 30 mg tablet,extended release 24 hr RxNorm: 296642 1 TABLET(S) PO NEEDED 04/07/2019 06/26/2019 Inactive Patient requests 90 days supply losartan 50 mg tablet RxNorm: 583269 1 Tablet(s) PO QD 03/22/2019 06/18/2019 Inactive Ventolin HFA 90 mcg/ actuation aerosol inhaler RxNorm: 333510 1-2 Puff(s) INH as ne eded No Start Date Active Coumadin 2 mg tablet RxNorm: 888109 1 Tablet(s) PO Mon, Fri, Sat and [...] E R 10 mEq capsule,extended release RxNorm: 387295 1 Capsule(s) PO QD No Start Date Active carvedilol 25 mg tablet RxNorm: 630533 1 Tablet(s) PO BID No Start Date 05/12/2019 Inactive losartan 50 mg tablet RxNorm: 665418 1 Tablet(s) PO QD No Start Date 03/21/2019 Inactive furosemide 40 mg tablet RxNorm: 617930 1 Tablet(s) PO QAM No Start Date 06/20/2019 Inactive pravastatin 40 mg ta blet RxNorm: 989785 1 Tablet(s) PO QD No Start Date 04/06/2019 Inactive isosorbide mononitra te ER 30 mg tablet,extended release 24 hr RxNorm: 909821 Tablet(s) PO as needed No Start Date 04/06/2019 Inactive levothyroxine 50 mcg tablet RxNorm: 296644 1 Tablet(s) PO QD No Start Date 04/25/2019 Inactive Medication Administered No Medication Administered data Immunizations Vaccine Codes Date Status Influenza CVX: 135 07/02 completed Assessments Condition Codes Effectiv e Dates Chronic atrial fibrillation ICD-10: I48.2 ICD-9: 427.31 07/18/2019 Encounter for therapeutic drug level monitoring ICD-10: Z51.81 ICD-9: V58.83 07/18/2019 Essential (primary) hypertension ICD -10: I10 ICD-9: [...] For Visit Effective Dates Notes lab draw 07/18/2019 lab draw 07/06/2019 follow up 06/14/2019 follow up 05/13/2019 lab draw 05/06/2019 follow up 05/02/2019 for wound check lab draw 04/07/2019 blood pressure check 03/22/2019 ~generic 03/08/2019 New Patient---establishing visit Results Observation Observation Code Item Item Code Result Date PT 5273429 PT 14.3 Seconds 07/18/2019 PT 7919476 INR 1.1 07/18/2019 [place] [address] Glucose 75 mg/dL 07/06/2019 [place] [address] CREATININE 0.61 mg/dL 07/06/2019 [place] [address] BUN 15 mg/dL 07/06/2019 [place] [address] SODIUM 142 mmol/L 07/06/2019 [place] [address] POTASSIUM 4.0 mmol/L 07/06/[address] [place] [address] CHLORIDE 106 mmol/L 07/06/2019 [place] [address] Bicarbonate 28 mmol/L 07/06/2019 [place] [address] AGAP 8 mmol/L 07/06/2019 [place] [address] CALCIUM 9.3 mg/dL 07/06/2019 PT 4798269 PT 17.4 Seconds 07/06/2019 PT 6720427 INR 1.4 07/06/2019 GFR CALC 6342691 GFR Non Afr Amr >60 mL/min 07/06/2019 GFR CALC 7476395 GFR Afr Amr >60 mL/min 07/06/2019 COMPLETE BLOOD COUNT 0555990 WBC 4.7 10e9/L 07/06/2019 COMPLETE BLOOD COUNT 6761166 RBC 4.19 10e12/L 9 COMPLETE BLOOD COUNT 6218522 HEMOGLOBIN 12.6 g/dL 07/06/2019 COMPLETE BLOOD COUNT 2665269 HEMATOCRIT 39.4 % 07/06/2019 COMPLETE BLOOD COUNT 8133129 MCV 94.0 fL 07/06/2019 COMPLETE BLOOD COUNT 2248639 MCH 30.1 pg 07/06/2019 COMPLETE BLOOD COUNT 5104253 MCHC 32.0 g/dL 07/06/2019 COMPLETE BLOOD COUNT 5846636 PLATELET COUNT 160 10e9/L 07/06/2019 COMPLETE BLOOD COUNT 2683574 Mean Plt Volume 11.0 fL 07/06/2019 COMPLETE BLOOD COUNT 1280966 Neut Auto 56.6 % 07/06/2019 COMPLETE BLOOD COUNT 1284818 Lymph Auto 27.0 % 07/06/2019 COMPLETE BLOOD COUNT 6960568 [place] Auto 13.7 % 07/06/2019 COMPLETE BLOOD COUNT 8853215 RDW 14.6 % 07/06/2019 COMPLETE BLOOD COUNT 4431976 Eos Auto 2.1 % 07/06/2019 COMPLETE BLOOD COUNT 3537616 Baso Auto 0.6 % 07/06/2019 COMPLETE BLOOD COUNT 8271182 Neutrophil Abs 2.66 10e9/L 07/06/2019 COMPLETE BLOOD COUNT 6796176 Lymphocyte Abs 1.27 10e9/L 07/06/2019 COMPLETE BLOOD COUNT 7781427 Monocyte Abs 0.64 10e9/L 07/06/2019 COMPLETE BLOOD COUNT 1412209 Eosinophil Abs 0.10 10e9/L 07/06/2019 COMPLETE BLOOD COUNT 1169621 RDW-SD 48.7 fL 07/06/2019 COMPLETE BLOOD COUNT 7404706 Basophil Abs 0.03 10e9/L 07/06/2019 COMPLETE BLOOD COUNT 8445085 WBC 4.6 10e9/L 06/14/2019 COMPLETE BLOOD COUNT 3628918 RBC 4.16 10e12/L 9 COMPLETE BLOOD COUNT 7984436 HEMOGLOBIN 12.6 g/dL 06/14/2019 COMPLETE BLOOD COUNT 1727759 HEMATOCRIT 39.1 % 06/14/2019 COMPLETE BLOOD COUNT 8033046 MCV 94.0 fL 06/14/2019 COMPLETE BLOOD COUNT 1979674 MCH 30.3 pg 06/14/2019 COMPLETE BLOOD COUNT 3109973 MCHC 32.2 g/dL 06/14/2019 COMPLETE BLOOD COUNT 7972882 PLATELET COUNT 167 10e9/L 06/14/2019 COMPLETE BLOOD COUNT 5763012 Mean Plt Volume 10.9 fL 06/14/2019 COMPLETE BLOOD COUNT 8777694 Neut Auto 59.6 % 06/14/2019 COMPLETE BLOOD COUNT 4757939 Lymph Auto 24.1 % 06/14/2019 COMPLETE BLOOD COUNT 0974112 [place] Auto 14.0 % 06/14/2019 COMPLETE BLOOD COUNT 6701162 RDW 14.8 % 06/14/2019 COMPLETE BLOOD COUNT 5947038 Eos Auto 1.9 % 06/14/2019 COMPLETE BLOOD COUNT 8358262 Baso Auto 0.4 % 06/14/2019 COMPLETE BLOOD COUNT 8309664 Neutrophil Abs 2.74 10e9/L 06/14/2019 COMPLETE BLOOD COUNT 0269014 Lymphocyte Abs 1.11 10e9/L 06/14/2019 COMPLETE BLOOD COUNT 7539871 Monocyte Abs 0.64 10e9/L 06/14/2019 COMPLETE BLOOD COUNT 3767098 Eosinophil Abs 0.09 10e9/L 06/14/2019 COMPLETE BLOOD COUNT 3776513 RDW-SD 49.3 fL 06/14/2019 COMPLETE BLOOD COUNT 6271011 Basophil Abs 0.02 10e9/L 06/14/2019 PT 9294076 PT 22.3 Seconds 06/14/2019 PT 4589072 INR 1.9 06/14/2019 COMPLETE BLOOD COUNT 4956086 WBC 4.0 10e9/L 05/13/2019 COMPLETE BLOOD COUNT 0117589 RBC 3.82 10e12/L 9 COMPLETE BLOOD COUNT 0690211 HEMOGLOBIN 11.5 g/dL 05/13/2019 COMPLETE BLOOD COUNT 0455612 HEMATOCRIT 36.4 % 05/13/2019 COMPLETE BLOOD COUNT 6118484 MCV 95.3 fL 05/13/2019 COMPLETE BLOOD COUNT 4224639 MCH 30.1 pg 05/13/2019 COMPLETE BLOOD COUNT 2473391 MCHC 31.6 g/dL 05/13/2019 COMPLETE BLOOD COUNT 2784799 PLATELET COUNT 175 10e9/L 05/13/2019 COMPLETE BLOOD COUNT 2208966 Mean Plt Volume 10.5 fL 05/13/2019 COMPLETE BLOOD COUNT 4176855 Neut Auto 63.2 % 05/13/2019 COMPLETE BLOOD COUNT 6724829 Lymph Auto 22.0 % 05/13/2019 COMPLETE BLOOD COUNT 7833807 [place] Auto 12.1 % 05/13/2019 COMPLETE BLOOD COUNT 9290720 RDW 14.9 % 05/13/2019 COMPLETE BLOOD COUNT 6243833 Eos Auto 2.2 % 05/13/2019 COMPLETE BLOOD COUNT 3590913 Baso Auto 0.5 % 05/13/2019 COMPLETE BLOOD COUNT 5921707 Neutrophil Abs 2.53 10e9/L 05/13/2019 COMPLETE BLOOD COUNT 0078735 Lymphocyte Abs 0.88 10e9/L 05/13/2019 COMPLETE BLOOD COUNT 3754416 Monocyte Abs 0.48 10e9/L 05/13/2019 COMPLETE BLOOD COUNT 2231671 Eosinophil Abs 0.09 10e9/L 05/13/2019 COMPLETE BLOOD COUNT 1188340 RDW-SD 49.6 fL 05/13/2019 COMPLETE BLOOD COUNT 9248716 Basophil Abs 0.02 10e9/L 05/13/2019 COMPREHENSIVE METABOLIC 75382 AST 18 U/L 05/13/2019 COMPREHENSIVE METABOLIC 66693 ALT 14 U/L 05/13/2019 COMPREHENSIVE METABOLIC 28731 BUN 15 mg/dL 05/13/2019 COMPREHENSIVE METABOLIC 15710 ALBUMIN 4.0 g/dL 05/13/2019 COMPREHENSIVE METABOLIC 02512 CHLORIDE 108 mmol/L 05/13/2019 COMPREHENSIVE METABOLIC 59711 Bili Total 0.9 mg/dL 05/13/2019 COMPREHENSIVE METABOLIC 31830 ALK PHOS 84 U/L 05/13/2019 COMPREHENSIVE METABOLIC 53632 SODIUM 142 mmol/L 05/13/2019 COMPREHENSIVE METABOLIC 63319 CREATININE 0.72 mg/dL 05/13/2019 COMPREHENSIVE METABOLIC 43667 CALCIUM 8.9 mg/dL 05/13/2019 COMPREHENSIVE METABOLIC 31365 POTASSIUM 4.0 mmol/L 05/13/2019 COMPREHENSIVE METABOLIC 29032 Total Protein 5.5 g/dL 05/13/2019 COMPREHENSIVE METABOLIC 11200 Glucose 95 mg/dL 05/13/2019 COMPREHENSIVE METABOLIC 27072 Bicarbonate 27 mmol/L 05/13/2019 COMPREHENSIVE METABOLIC 47446 AGAP 7 mmol/L 05/13/2019 GFR CALC 7344902 GFR Non Afr Amr >60 mL/min 05/13/2019 GFR CALC 7410816 GFR Afr Amr >60 mL/min 05/13/2019 THYROID STIMULATING HORMONE 98264 TSH 2.669 uIU/mL 9 FREE T4 67965 T4 Free 1.19 ng/dL 05/13/2019 PT 3164870 PT 24.2 Seconds 05/06/2019 PT 9171315 INR 2.1 05/06/2019 PT 4574752 PT 24.1 Seconds 03/08/2019 PT 3197283 INR 2.9 03/08/2019 Review of Systems System [...] Procedures Procedure Codes Date ROUTINE VENIPUNCTURE CPT-4: 77146 07/18/2019 PT CPT-4: 2272107 07/18/2019 METABOLIC PANEL TOTA L CA CPT-4: 05409 07/06/2019 COMPLETE CBC W/AUTO DIFF WBC CPT-4: 82407 07/06/2019 PROTHROMBIN TIME CPT-4: 07703 07/06/2019 ROUTINE VENIPUNCTURE CPT-4: 30798 06/14/2019 PROTHROMBIN TIME CPT-4: 42203 06/14/2019 COMPLETE CBC W/AUTO DIFF WBC CPT-4: 21805 06/14/2019 ROUTINE VENIPUNCTURE CPT-4: 23232 05/13/2019 COMPREHEN METABOLIC PANEL CPT-4: 67153 05/13/2019 COMPLETE CBC W/AUTO DIFF WBC CPT-4: 14563 05/13/2019 ASSAY THYROID STIM H ORMONE CPT-4: 95720 05/13/2019 ASSAY OF FREE THYROXINE CPT-4: 69114 05/13/2019 PT CPT-4: 7473152 05/06/2019 ROUTINE VENIPUNCTURE CPT-4: 79731 05/06/2019 PT CPT-4: 2080732 04/07/2019 ROUTINE VENIPUNCTURE CPT-4: 16742 04/07/2019 ROUTINE VENIPUNCTURE CPT-4: 79432 03/08/2019 PROTHROMBIN TIME CPT-4: 69895 03/08/2019 Vital Signs Date Vital 06/14/2019 Blood [...] 1: 114/78 Code: 8480-6 BMI: 36.1 Code: 84424-1 Heart Rate 1: 76 bpm Height: 5'3" [...] adulthood 03/08/2019 has had extensive workup in [place] including PFT, cardiac cath and tried numerous modalities including inhalers with no improvement--most recent cath showed blockage in small arteries so given imdur but has not started this routinely Advance Directives No Advance Directive data Encounters Encounter Performer Loca tion Codes Date ([id number]) NURSE/OUTPAT IENT VISIT EST Diagnosis: Chronic atrial fibrillation[ICD10: I48.2] Diagnosis: Encounter for therapeutic drug level monitoring[ICD10: Z51.81] Becki Hernandez [employer] [facility] CPT-4: 97466 07/18/2019 ([id number]) NURSE/OUTPAT IENT VISIT EST Diagnosis: Encounter for therapeutic drug level monitoring[ICD10: Z51.81] Diagnosis: Chronic atrial fibrillation[ICD10: I48.2] Diagnosis: Essential (primary) hypertension[ICD10: I10] Becki CONNELL [employer] [facility] [employer] CPT-4: 90661 07/06/2019 ([id number]) OFFICE/OUTPA TIENT VISIT EST Diagnosis: Encounter for therapeutic drug level monitoring[ICD10: Z51.81] Diagnosis: Anemia, unspecified[ICD10: D64.9] Diagnosis: Bitten by dog, sequela[ICD10: W54.0XXS] 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] Becki CONNELL [employer] [facility] CPT-4: 25773 06/14/2019 ([id number]) OFFICE/OUTPA TIENT VISIT EST Diagnosis: Bitten by dog, sequela[ICD10: W54.0XXS] Diagnosis: Other fatigue[ICD10: R53.83] Diagnosis: Hypothyroidism, unspecified[ICD10: E03.9] Diagnosis: Muscle weakness (generalized)[ICD10: M62.81] Diagnosis: Generalized anxiety disorder[ICD10: F41.1] Jannette PINZON [facility] CPT-4: 05657 05/13/2019 ([id number]) NURSE/OUTPAT IENT VISIT EST Diagnosis: Encounter for therapeutic drug level monitoring[ICD10: Z51.81] Becki BLCAK DO [employer] CPT-4: 68072 05/06/2019 ([id number]) OFFICE/OUTPA TIENT VISIT EST Diagnosis: Bitten by dog, sequela[ICD10: W54.0XXS] Diagnosis: Pain in right wrist[ICD10: M25.531] Diagnosis: Abrasion of right upper arm, sequela[ICD10: S40.811S] Diagnosis: Abrasion of left upper arm, sequela[ICD10: S40.812S] Jannette PINZON [facility] CPT-4: 39747 05/02/2019 ([id number]) NURSE/OUTPAT IENT VISIT EST Diagnosis: Encounter for therapeutic drug level monitoring[ICD10: Z51.81] Becki ThakurAxel WAYNE [facility] CPT-4: 70352 04/07/2019 ([id number]) OFFICE/OUTPA TIENT VISIT NEW Diagnosis: Encounter for therapeutic drug level monitoring[ICD10: Z51.81] Diagnosis: Chronic atrial fibrillation[ICD10: I48.2] Diagnosis: Essential (primary) hypertension[ICD10: I10] Diagnosis: Abnormal findings on diagnostic imaging of heart and coronary circulation[ICD10: R93.1] Diagnosis: Other forms of dyspnea[ICD10: R06.09] Diagnosis: Hypothyroidism, unspecified[ICD10: E03.9] Diagnosis: Mixed hyperlipidemia[ICD10: E78.2] Becki Wayne JENNINGSLINE David WILSON [facility] CPT-4: 77127 03/08/2019 Plan of Care Planned Activity Notes C odes Status Date App[facility]ment: [facility] [phone] [facility] [facility] 07/06/2019 Visit Diagnosis Plan: Bitten [...] : L90.5 06/14/2019 [phone] [id number] FOLLOW UP 06/14/2019 Visit Diagnosis Plan: Muscle [...] [facility]. ICD-9 : 300.02 ICD-10 : F41.1 05/13/2019 Appointment: [facility] [address] [facility] FO[facility] UP 05/13/2019 Patient Education: carvedilol- [employer] Coupon [phone] https://[email or web address]/samplemd/resources/getResource/[email or web address] Completed 05/13/2019 Patient Education: Xanax- [employer] Coupon [id number] https://www.[email or web address]/samplemd/resources/getResource/61/[email or web address] Completed 05/13/2019 Appointment: Becki Black WPtel: [phone] [facility] LAB 05/06/2019 Visit Diagnosis Plan: Abrasion of [...] will send results to dr. portillo at [facility]. ICD-9 : 719.43 ICD-10 : M25.531 05/02/2019 Appointment: Jannette Mayen [address] [place], [place] [id number] ACUTE ILLNESS 05/02/2019 Care Plan: X-RAY EXAM OF WRIST right LOINC : 37031-1 Pending 05/02/2019 Appointment: Becki Black WPtel: [address] [place], [place] [id number] US LAB 04/07/2019 Appointment: Becki Black WPtel: [address] [place], [place] [id number] US BP CHECK 03/22/2019 Visit Diagnosis Plan: [...] : R06.09 03/08/2019 Appointment: Becki Black WPtel: [address] [place], [place] [phone] NEW PATIENT 03/08/2019 Instructions No Instructions
--- OUTSIDE RECORDS SUMMARY | 2019-11-24 06:55 | XMS REPORT | CCD ---
Author Author Tricia Black D.O. Organization [facility] Address [address] [place] [address] Phone Care Team Providers Care Sales Agent Marine Insurance Name Role Phone PP Unavailable CCM Unavailable Summary Purpose Interface Exchange Insurance Providers Payer name Policy type / Coverage type Covered libertarian ID Effective Begin Date Effective End Date WPS MEDICARE PART B [place] Medicare Part B [id number] Unknown Unknown United [employer] Medicare Part B [id number] Unknown Unknown Family history Grandmother Diagnosis [...] Retir ed 03/08/[address]: 617601327 Has never smoked or chewed tobacco 03/08/[address]: 873038 Currently drinks alcohol 03/08/2019 Has the patient [...] 30 mg tablet,extended release 24 hr RxNorm: 912789 Tablet(s) 1 TABLET(S) PO NEEDED 06/27/2019 12/23/2019 Active Neris ent requests 90 days supply carvedilol 25 mg tablet RxNorm: 079606 1 TABLET(S) PO BID 06/27/2019 12/23/2019 Active isosorbide mononitra te ER 30 mg tablet,extended release 24 hr RxNorm: 997749 1 Tablet(s) PO QD as needed 06/27/2019 06/27/2019 Inactive Patient requests 90 days supply furosemide 40 mg tablet RxNorm: 829344 1 Tablet(s) PO QAM 06/21/2019 12/17/2019 Active Xanax 0.25 mg tablet RxNorm: 931577 1/2 Tablet(s) PO Q6H as needed 05/13/2019 No Stop Date Active carvedilol 25 mg tablet RxNorm: 852986 1 Tablet(s) PO BID 05/13/2019 06/26/2019 Inactive levothyroxine 50 mcg tablet RxNorm: 797619 1 Tablet(s) PO QD 04/26/2019 10/22/2019 Active losartan 50 mg tablet RxNorm: 266197 1 Tablet(s) PO QD 04/26/2019 10/22/2019 Active losartan 50 mg tablet RxNorm: 697062 1 Tablet(s) PO QD 04/20/2019 04/25/2019 Inactive pravastatin 40 mg ta blet RxNorm: 136425 1 Tablet(s) PO QD 04/07/2019 06/05/2019 Inactive isosorbide mononitra te ER 30 mg tablet,extended release 24 hr RxNorm: 879271 1 Tablet(s) PO as needed 04/07/2019 04/06/2019 Inactive isosorbide mononitra te ER 30 mg tablet,extended release 24 hr RxNorm: 511898 1 TABLET(S) PO NEEDED 04/07/2019 06/26/2019 Inactive Patient requests 90 days supply losartan 50 mg tablet RxNorm: 801172 1 Tablet(s) PO QD 03/22/2019 06/18/2019 Inactive Ventolin HFA 90 mcg/ actuation aerosol inhaler RxNorm: 854535 1-2 Puff(s) INH as ne eded No Start Date Active Coumadin 2 mg tablet RxNorm: 978909 1 Tablet(s) PO Mon, Fri, Sat and [...] E R 10 mEq capsule,extended release RxNorm: 555078 1 Capsule(s) PO QD No Start Date Active carvedilol 25 mg tablet RxNorm: 354952 1 Tablet(s) PO BID No Start Date 05/12/2019 Inactive losartan 50 mg tablet RxNorm: 892743 1 Tablet(s) PO QD No Start Date 03/21/2019 Inactive furosemide 40 mg tablet RxNorm: 035323 1 Tablet(s) PO QAM No Start Date 06/20/2019 Inactive pravastatin 40 mg ta blet RxNorm: 031259 1 Tablet(s) PO QD No Start Date 04/06/2019 Inactive isosorbide mononitra te ER 30 mg tablet,extended release 24 hr RxNorm: 513058 Tablet(s) PO as needed No Start Date 04/06/2019 Inactive levothyroxine 50 mcg tablet RxNorm: 585790 1 Tablet(s) PO QD No Start Date [...] Code Item Item Code Result Date PT 8251941 PT 14.3 Seconds 07/18/2019 PT 6059357 INR 1.1 07/18/2019 [place] [address] Glucose 75 mg/dL 07/06/2019 [place] [address] CREATININE 0.61 mg/dL 07/06/2019 [place] [address] BUN 15 mg/dL 07/06/2019 [place] [address] SODIUM 142 mmol/L 07/06/2019 [place] [address] POTASSIUM 4.0 mmol/L 07/06/2019 [place] [address] CHLORIDE 106 mmol/L 07/06/2019 [place] [address] Bicarbonate 28 mmol/L 07/06/2019 [place] [address] AGAP 8 mmol/L 07/06/2019 [place] [address] CALCIUM 9.3 mg/dL 07/06/2019 PT 1293373 PT 17.4 Seconds 07/06/2019 PT 7346844 INR 1.4 07/06/2019 GFR CALC 0309657 GFR Non Afr Amr >60 mL/min 07/06/2019 GFR CALC 8320448 GFR Afr Amr >60 mL/min 07/06/2019 COMPLETE BLOOD COUNT 6240784 WBC 4.7 10e9/L 07/06/2019 COMPLETE BLOOD COUNT 1532758 RBC 4.19 10e12/L 9 COMPLETE BLOOD COUNT 4098250 HEMOGLOBIN 12.6 g/dL 07/06/2019 COMPLETE BLOOD COUNT 7377899 HEMATOCRIT 39.4 % 07/06/2019 COMPLETE BLOOD COUNT 9056363 MCV 94.0 fL 07/06/2019 COMPLETE BLOOD COUNT 1949182 MCH 30.1 pg 07/06/2019 COMPLETE BLOOD COUNT 8756682 MCHC 32.0 g/dL 07/06/2019 COMPLETE BLOOD COUNT 4429668 PLATELET COUNT 160 10e9/L 07/06/2019 COMPLETE BLOOD COUNT 0535993 Mean Plt Volume 11.0 fL 07/06/2019 COMPLETE BLOOD COUNT 2706923 Neut Auto 56.6 % 07/06/2019 COMPLETE BLOOD COUNT 0933390 Lymph Auto 27.0 % 07/06/2019 COMPLETE BLOOD COUNT 7679368 [place] Auto 13.7 % 07/06/2019 COMPLETE BLOOD COUNT 4496729 RDW 14.6 % 07/06/2019 COMPLETE BLOOD COUNT 6834531 Eos Auto 2.1 % 07/06/2019 COMPLETE BLOOD COUNT 8619848 Baso Auto 0.6 % 07/06/2019 COMPLETE BLOOD COUNT 6220642 Neutrophil Abs 2.66 10e9/L 07/06/2019 COMPLETE BLOOD COUNT 8762221 Lymphocyte Abs 1.27 10e9/L 07/06/2019 COMPLETE BLOOD COUNT 1867958 Monocyte Abs 0.64 10e9/L 07/06/2019 COMPLETE BLOOD COUNT 5836827 Eosinophil Abs 0.10 10e9/L 07/06/2019 COMPLETE BLOOD COUNT 9533536 RDW-SD 48.7 fL 07/06/2019 COMPLETE BLOOD COUNT 5907535 Basophil Abs 0.03 10e9/L 07/06/2019 COMPLETE BLOOD COUNT 2406347 WBC 4.6 10e9/L 06/14/2019 COMPLETE BLOOD COUNT 0156956 RBC 4.16 10e12/L 9 COMPLETE BLOOD COUNT 1273297 HEMOGLOBIN 12.6 g/dL 06/14/2019 COMPLETE BLOOD COUNT 0814776 HEMATOCRIT 39.1 % 06/14/2019 COMPLETE BLOOD COUNT 7709549 MCV 94.0 fL 06/14/2019 COMPLETE BLOOD COUNT 8374975 MCH 30.3 pg 06/14/2019 COMPLETE BLOOD COUNT 5255603 MCHC 32.2 g/dL 06/14/2019 COMPLETE BLOOD COUNT 0414258 PLATELET COUNT 167 10e9/L 06/14/2019 COMPLETE BLOOD COUNT 0485574 Mean Plt Volume 10.9 fL 06/14/2019 COMPLETE BLOOD COUNT 0600799 Neut Auto 59.6 % 06/14/2019 COMPLETE BLOOD COUNT 5306071 Lymph Auto 24.1 % 06/14/2019 COMPLETE BLOOD COUNT 4469715 [place] Auto 14.0 % 06/14/2019 COMPLETE BLOOD COUNT 1828241 RDW 14.8 % 06/14/2019 COMPLETE BLOOD COUNT 2263433 Eos Auto 1.9 % 06/14/2019 COMPLETE BLOOD COUNT 8550005 Baso Auto 0.4 % 06/14/2019 COMPLETE BLOOD COUNT 4523844 Neutrophil Abs 2.74 10e9/L 06/14/2019 COMPLETE BLOOD COUNT 4543321 Lymphocyte Abs 1.11 10e9/L 06/14/2019 COMPLETE BLOOD COUNT 6679758 Monocyte Abs 0.64 10e9/L 06/14/2019 COMPLETE BLOOD COUNT 5212978 Eosinophil Abs 0.09 10e9/L 06/14/2019 COMPLETE BLOOD COUNT 5021456 RDW-SD 49.3 fL 06/14/2019 COMPLETE BLOOD COUNT 0309357 Basophil Abs 0.02 10e9/L 06/14/2019 PT 0275958 PT 22.3 Seconds 06/14/2019 PT 1889940 INR 1.9 06/14/2019 COMPLETE BLOOD COUNT 0619569 WBC 4.0 10e9/L 05/13/2019 COMPLETE BLOOD COUNT 4910625 RBC 3.82 10e12/L 9 COMPLETE BLOOD COUNT 7956346 HEMOGLOBIN 11.5 g/dL 05/13/2019 COMPLETE BLOOD COUNT 1025845 HEMATOCRIT 36.4 % 05/13/2019 COMPLETE BLOOD COUNT 4035017 MCV 95.3 fL 05/13/2019 COMPLETE BLOOD COUNT 2656425 MCH 30.1 pg 05/13/2019 COMPLETE BLOOD COUNT 8936126 MCHC 31.6 g/dL 05/13/2019 COMPLETE BLOOD COUNT 4508140 PLATELET COUNT 175 10e9/L 05/13/2019 COMPLETE BLOOD COUNT 3498412 Mean Plt Volume 10.5 fL 05/13/2019 COMPLETE BLOOD COUNT 0512227 Neut Auto 63.2 % 05/13/2019 COMPLETE BLOOD COUNT 1535107 Lymph Auto 22.0 % 05/13/2019 COMPLETE BLOOD COUNT 4324698 [place] Auto 12.1 % 05/13/2019 COMPLETE BLOOD COUNT 0909398 RDW 14.9 % 05/13/2019 COMPLETE BLOOD COUNT 6845057 Eos Auto 2.2 % 05/13/2019 COMPLETE BLOOD COUNT 7001601 Baso Auto 0.5 % 05/13/2019 COMPLETE BLOOD COUNT 0705497 Neutrophil Abs 2.53 10e9/L 05/13/2019 COMPLETE BLOOD COUNT 9897200 Lymphocyte Abs 0.88 10e9/L 05/13/2019 COMPLETE BLOOD COUNT 2800539 Monocyte Abs 0.48 10e9/L 05/13/2019 COMPLETE BLOOD COUNT 8799795 Eosinophil Abs 0.09 10e9/L 05/13/2019 COMPLETE BLOOD COUNT 4935973 RDW-SD 49.6 fL 05/13/2019 COMPLETE BLOOD COUNT 0302737 Basophil Abs 0.02 10e9/L 05/13/2019 COMPREHENSIVE METABOLIC 15529 AST 18 U/L 05/13/2019 COMPREHENSIVE METABOLIC 86751 ALT 14 U/L 05/13/2019 COMPREHENSIVE METABOLIC 86282 BUN 15 mg/dL 05/13/2019 COMPREHENSIVE METABOLIC 30055 ALBUMIN 4.0 g/dL 05/13/2019 COMPREHENSIVE METABOLIC 32165 CHLORIDE 108 mmol/L 05/13/2019 COMPREHENSIVE METABOLIC 71663 Bili Total 0.9 mg/dL 05/13/2019 COMPREHENSIVE METABOLIC 90156 ALK PHOS 84 U/L 05/13/2019 COMPREHENSIVE METABOLIC 27810 SODIUM 142 mmol/L 05/13/2019 COMPREHENSIVE METABOLIC 45750 CREATININE 0.72 mg/dL 05/13/2019 COMPREHENSIVE METABOLIC 03783 CALCIUM 8.9 mg/dL 05/13/2019 COMPREHENSIVE METABOLIC 02661 POTASSIUM 4.0 mmol/L 05/13/2019 COMPREHENSIVE METABOLIC 29823 Total Protein 5.5 g/dL 05/13/2019 COMPREHENSIVE METABOLIC 08770 Glucose 95 mg/dL 05/13/2019 COMPREHENSIVE METABOLIC 87701 Bicarbonate 27 mmol/L 05/13/2019 COMPREHENSIVE METABOLIC 08871 AGAP 7 mmol/L 05/13/2019 GFR CALC 2394984 GFR Non Afr Amr >60 mL/min 05/13/2019 GFR CALC 8542734 GFR Afr Amr >60 mL/min 05/13/2019 THYROID STIMULATING HORMONE 22002 TSH 2.669 uIU/mL 9 FREE T4 83803 T4 Free 1.19 ng/dL 05/13/2019 PT 2988013 PT 24.2 Seconds 05/06/2019 PT 5393973 INR 2.1 05/06/2019 PT 5473320 PT 24.1 Seconds 03/08/2019 PT 4514938 INR 2.9 03/08/2019 Review of Systems System [...] Procedures Procedure Codes Date ROUTINE VENIPUNCTURE CPT-4: 41672 07/29/2019 PT CPT-4: 9412240 07/29/2019 ROUTINE VENIPUNCTURE CPT-4: 13984 07/18/2019 PT CPT-4: 3976384 07/18/2019 METABOLIC PANEL TOTA L CA CPT-4: 35567 07/06/2019 COMPLETE CBC W/AUTO DIFF WBC CPT-4: 98241 07/06/2019 PROTHROMBIN TIME CPT-4: 70668 07/06/2019 ROUTINE VENIPUNCTURE CPT-4: 05648 06/14/2019 PROTHROMBIN TIME CPT-4: 88464 06/14/2019 COMPLETE CBC W/AUTO DIFF WBC CPT-4: 34667 06/14/2019 ROUTINE VENIPUNCTURE CPT-4: 03710 05/13/2019 COMPREHEN METABOLIC PANEL CPT-4: 32712 05/13/2019 COMPLETE CBC W/AUTO DIFF WBC CPT-4: 52666 05/13/2019 ASSAY THYROID STIM H ORMONE CPT-4: 64723 05/13/2019 ASSAY OF FREE THYROXINE CPT-4: 22654 05/13/2019 PT CPT-4: 3722520 05/06/2019 ROUTINE VENIPUNCTURE CPT-4: 01336 05/06/2019 PT CPT-4: 9226028 04/07/2019 ROUTINE VENIPUNCTURE CPT-4: 09497 04/07/2019 ROUTINE VENIPUNCTURE CPT-4: 96929 03/08/2019 PROTHROMBIN TIME CPT-4: 82627 03/08/2019 Vital Signs Date Vital 06/14/2019 Blood [...] 1: 114/78 Code: 8480-6 BMI: 36.1 Code: 03098-2 Heart Rate 1: 76 bpm Height: 5'3" [...] adulthood 03/08/2019 has had extensive workup in [place] including PFT, cardiac cath and tried numerous modalities including inhalers with no improvement--most recent cath showed blockage in small arteries so given imdur but has not started this routinely Advance Directives No Advance Directive data Encounters Encounter Performer Loca tion Codes Date ([id number]) NURSE/OUTPAT IENT VISIT EST Diagnosis: Chronic atrial fibrillation[ICD10: I48.2] Diagnosis: Encounter for therapeutic drug level monitoring[ICD10: Z51.81] Becki Hernandez PikimalKATIE [facility] CPT-4: 76286 07/29/2019 ([id number]) NURSE/OUTPAT IENT VISIT EST Diagnosis: Chronic atrial fibrillation[ICD10: I48.2] Diagnosis: Encounter for therapeutic drug level monitoring[ICD10: Z51.81] Becki BLACK [facility] CPT-4: 87059 07/18/2019 ([id number]) NURSE/OUTPAT IENT VISIT EST Diagnosis: Encounter for therapeutic drug level monitoring[ICD10: Z51.81] Diagnosis: Chronic atrial fibrillation[ICD10: I48.2] Diagnosis: Essential (primary) hypertension[ICD10: I10] Becki WILSON [facility] CPT-4: 40017 07/06/2019 ([id number]) OFFICE/OUTPA TIENT VISIT EST Diagnosis: Encounter for therapeutic drug level monitoring[ICD10: Z51.81] Diagnosis: Anemia, unspecified[ICD10: D64.9] Diagnosis: Bitten by dog, sequela[ICD10: W54.0XXS] 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] Becki WILSON [facility] CPT-4: 22763 06/14/2019 ([id number]) OFFICE/OUTPA TIENT VISIT EST Diagnosis: Bitten by dog, sequela[ICD10: W54.0XXS] Diagnosis: Other fatigue[ICD10: R53.83] Diagnosis: Hypothyroidism, unspecified[ICD10: E03.9] Diagnosis: Muscle weakness (generalized)[ICD10: M62.81] Diagnosis: Generalized anxiety disorder[ICD10: F41.1] Jannette PINZON [facility] CPT-4: 15001 05/13/2019 ([id number]) NURSE/OUTPAT IENT VISIT EST Diagnosis: Encounter for therapeutic drug level monitoring[ICD10: Z51.81] Becki BLACK [facility] CPT-4: 15129 05/06/2019 ([id number]) OFFICE/OUTPA TIENT VISIT EST Diagnosis: Bitten by dog, sequela[ICD10: W54.0XXS] Diagnosis: Pain in right wrist[ICD10: M25.531] Diagnosis: Abrasion of right upper arm, sequela[ICD10: S40.811S] Diagnosis: Abrasion of left upper arm, sequela[ICD10: S40.812S] Jannette PINZON [facility] CPT-4: 38434 05/02/2019 ([id number]) NURSE/OUTPAT IENT VISIT EST Diagnosis: Encounter for therapeutic drug level monitoring[ICD10: Z51.81] Becki BLACK [facility] CPT-4: 37905 04/07/2019 ([id number]) OFFICE/OUTPA TIENT VISIT NEW Diagnosis: Encounter for therapeutic drug level monitoring[ICD10: Z51.81] Diagnosis: Chronic atrial fibrillation[ICD10: I48.2] Diagnosis: Essential (primary) hypertension[ICD10: I10] Diagnosis: Abnormal findings on diagnostic imaging of heart and coronary circulation[ICD10: R93.1] Diagnosis: Other forms of dyspnea[ICD10: R06.09] Diagnosis: Hypothyroidism, unspecified[ICD10: E03.9] Diagnosis: Mixed hyperlipidemia[ICD10: E78.2] Becki Black EBCKI OfeAxel ESTUARDO WILSON [facility] CPT-4: 29224 03/08/2019 Plan of Care Planned Activity Notes C odes Status Date Appointment: Becki Black WPtel: [address] [place], [place] [phone] US LAB 07/18/2019 Appointment: Becki Black WPtel: [phone] [facility] US LAB 07/06/2019 Visit Diagnosis Plan: Bitten [...] : L90.5 06/14/2019 Appointment: Becki Black WPtel: [address] [place], [place] [phone] US FOLLOW UP 06/14/2019 Visit Diagnosis Plan: [...] hydrocodone several days ago. will refer to [facility] as wel l to discuss concerns. ICD-9 : 300.02 ICD-10 : F41.1 05/13/2019 Appointment: Jannette Mayen [address] [place], [place] [phone] FOLLOW UP 05/13/2019 Patient Education: carvedilol- [employer] Coupon [id number] https://www.MEDL Mobile/samplemd/resources/getResource/61/[email or web address]-2955-7v Completed 05/13/2019 Patient Education: Xanax- [employer] Coupon [id number] https://www.[employer] Mobile/samplemd/resources/getResource/61/[email or web address]-k4 Completed 05/13/2019 Appointment: Becki Black [facility]el[facility] [phone] [facility] [place] [facility] 05/06/2019 Visit Diagnosis Plan: Abrasion [...] will send results to dr. portillo at [facility]. ICD-9 : 719.43 ICD-10 : M25.531 05/02/2019 Appointment: Jannette Mayen [address] [place] [address] ACUTE ILLNESS 05/02/2019 Care Plan: X-RAY EXAM OF WRIST right LOINC : 22843-4 Pending 05/02/2019 Appointment: Becki Black WPtel: [address] [place] [address] LAB 04/07/2019 Appointment: Becki Black WPtel: [address] [place] [address] BP CHECK 03/22/2019 Visit Diagnosis Plan: Abnormal [...] R06.09 03/08/2019 Appointment: Becki Black WPtel: [phone] [facility] NEW PATIENT 03/08/2019 Instructions No Instructions
--- OUTSIDE RECORDS SUMMARY | 2019-11-24 06:56 | XMS REPORT | CCD ---
Author Author Tricia Black D.O. Organization [facility] Address [address] [place] [address] Phone Care Team Providers Care Yarn Preparation Supervisor Name Role Phone PP Unavailable CCM Unavailable Summary Purpose Interface Exchange Insurance Providers Payer name Policy type / Coverage type Covered libertarian ID Effective Begin Date Effective End Date WPS MEDICARE PART B [place] Medicare Part B [id number] Unknown Unknown [facility] Medicare Part B [id number] Unknown Unknown Family history Grandmother Diagnosis [...] Retir ed 03/08/[address]: 233214907 Has never smoked or chewed tobacco 03/08/[address]: 327552 Currently drinks alcohol 03/08/2019 Has the patient [...] 30 mg tablet,extended release 24 hr RxNorm: 692775 Tablet(s) 1 TABLET(S) PO NEEDED 06/27/2019 12/23/2019 Active Neris ent requests 90 days supply carvedilol 25 mg tablet RxNorm: 559801 1 TABLET(S) PO BID 06/27/2019 12/23/2019 Active isosorbide mononitra te ER 30 mg tablet,extended release 24 hr RxNorm: 871698 1 Tablet(s) PO QD as needed 06/27/2019 06/27/2019 Inactive Patient requests 90 days supply furosemide 40 mg tablet RxNorm: 558677 1 Tablet(s) PO QAM 06/21/2019 12/17/2019 Active Xanax 0.25 mg tablet RxNorm: 234059 1/2 Tablet(s) PO Q6H as needed 05/13/2019 No Stop Date Active carvedilol 25 mg tablet RxNorm: 428347 1 Tablet(s) PO BID 05/13/2019 06/26/2019 Inactive levothyroxine 50 mcg tablet RxNorm: 316458 1 Tablet(s) PO QD 04/26/2019 10/22/2019 Active losartan 50 mg tablet RxNorm: 147251 1 Tablet(s) PO QD 04/26/2019 10/22/2019 Active losartan 50 mg tablet RxNorm: 602177 1 Tablet(s) PO QD 04/20/2019 04/25/2019 Inactive pravastatin 40 mg ta blet RxNorm: 626456 1 Tablet(s) PO QD 04/07/2019 06/05/2019 Inactive isosorbide mononitra te ER 30 mg tablet,extended release 24 hr RxNorm: 048635 1 Tablet(s) PO as needed 04/07/2019 04/06/2019 Inactive isosorbide mononitra te ER 30 mg tablet,extended release 24 hr RxNorm: 407163 1 TABLET(S) PO NEEDED 04/07/2019 06/26/2019 Inactive Patient requests 90 days supply losartan 50 mg tablet RxNorm: 080840 1 Tablet(s) PO QD 03/22/2019 06/18/2019 Inactive Ventolin HFA 90 mcg/ actuation aerosol inhaler RxNorm: 978693 1-2 Puff(s) INH as ne eded No Start Date Active Coumadin 2 mg tablet RxNorm: 682234 1 Tablet(s) PO Mon, Fri, Sat and [...] E R 10 mEq capsule,extended release RxNorm: 443323 1 Capsule(s) PO QD No Start Date Active carvedilol 25 mg tablet RxNorm: 901959 1 Tablet(s) PO BID No Start Date 05/12/2019 Inactive losartan 50 mg tablet RxNorm: 425315 1 Tablet(s) PO QD No Start Date 03/21/2019 Inactive furosemide 40 mg tablet RxNorm: 687789 1 Tablet(s) PO QAM No Start Date 06/20/2019 Inactive pravastatin 40 mg ta blet RxNorm: 473247 1 Tablet(s) PO QD No Start Date 04/06/2019 Inactive isosorbide mononitra te ER 30 mg tablet,extended release 24 hr RxNorm: 675864 Tablet(s) PO as needed No Start Date 04/06/2019 Inactive levothyroxine 50 mcg tablet RxNorm: 253983 1 Tablet(s) PO QD No Start Date [...] Observation Code Item Item Code Result [place] [address] Glucose 75 mg/dL 07/06/2019 [place] [address] CREATININE 0.61 mg/dL 07/06/2019 [place] [address] BUN 15 mg/dL 07/06/2019 [place] [address] SODIUM 142 mmol/L 07/06/2019 [place] [address] POTASSIUM 4.0 mmol/L 07/06/2019 [place] [address] CHLORIDE 106 mmol/L 07/06/2019 [place] [address] Bicarbonate 28 mmol/L 07/06/2019 [place] [address] AGAP 8 mmol/L 07/06/2019 [place] [address] CALCIUM 9.3 mg/dL 07/06/2019 PT 5256238 PT 17.4 Seconds 07/06/2019 PT 1220648 INR 1.4 07/06/2019 GFR CALC 8090199 GFR Non Afr Amr >60 mL/min 07/06/2019 GFR CALC 0449638 GFR Afr Amr >60 mL/min 07/06/2019 COMPLETE BLOOD COUNT 4201886 WBC 4.7 10e9/L 07/06/2019 COMPLETE BLOOD COUNT 9058776 RBC 4.19 10e12/L 9 COMPLETE BLOOD COUNT 4201088 HEMOGLOBIN 12.6 g/dL 07/06/2019 COMPLETE BLOOD COUNT 5250282 HEMATOCRIT 39.4 % 07/06/2019 COMPLETE BLOOD COUNT 9935045 MCV 94.0 fL 07/06/2019 COMPLETE BLOOD COUNT 2790397 MCH 30.1 pg 07/06/2019 COMPLETE BLOOD COUNT 0970243 MCHC 32.0 g/dL 07/06/2019 COMPLETE BLOOD COUNT 8923545 PLATELET COUNT 160 10e9/L 07/06/2019 COMPLETE BLOOD COUNT 8827532 Mean Plt Volume 11.0 fL 07/06/2019 COMPLETE BLOOD COUNT 7934455 Neut Auto 56.6 % 07/06/2019 COMPLETE BLOOD COUNT 1186597 Lymph Auto 27.0 % 07/06/2019 COMPLETE BLOOD COUNT 6219639 [place] Auto 13.7 % 07/06/2019 COMPLETE BLOOD COUNT 2686402 RDW 14.6 % 07/06/2019 COMPLETE BLOOD COUNT 0680570 Eos Auto 2.1 % 07/06/2019 COMPLETE BLOOD COUNT 5444540 Baso Auto 0.6 % 07/06/2019 COMPLETE BLOOD COUNT 3888882 Neutrophil Abs 2.66 10e9/L 07/06/2019 COMPLETE BLOOD COUNT 0619730 Lymphocyte Abs 1.27 10e9/L 07/06/2019 COMPLETE BLOOD COUNT 8460609 Monocyte Abs 0.64 10e9/L 07/06/2019 COMPLETE BLOOD COUNT 3653618 Eosinophil Abs 0.10 10e9/L 07/06/2019 COMPLETE BLOOD COUNT 7941848 RDW-SD 48.7 fL 07/06/2019 COMPLETE BLOOD COUNT 1504662 Basophil Abs 0.03 10e9/L 07/06/2019 COMPLETE BLOOD COUNT 4410320 WBC 4.6 10e9/L 06/14/2019 COMPLETE BLOOD COUNT 9152972 RBC 4.16 10e12/L 9 COMPLETE BLOOD COUNT 7957136 HEMOGLOBIN 12.6 g/dL 06/14/2019 COMPLETE BLOOD COUNT 2263381 HEMATOCRIT 39.1 % 06/14/2019 COMPLETE BLOOD COUNT 6671546 MCV 94.0 fL 06/14/2019 COMPLETE BLOOD COUNT 1005324 MCH 30.3 pg 06/14/2019 COMPLETE BLOOD COUNT 5639633 MCHC 32.2 g/dL 06/14/2019 COMPLETE BLOOD COUNT 4432581 PLATELET COUNT 167 10e9/L 06/14/2019 COMPLETE BLOOD COUNT 3105977 Mean Plt Volume 10.9 fL 06/14/2019 COMPLETE BLOOD COUNT 9193324 Neut Auto 59.6 % 06/14/2019 COMPLETE BLOOD COUNT 0725382 Lymph Auto 24.1 % 06/14/2019 COMPLETE BLOOD COUNT 8287099 [place] Auto 14.0 % 06/14/2019 COMPLETE BLOOD COUNT 7144509 RDW 14.8 % 06/14/2019 COMPLETE BLOOD COUNT 6221861 Eos Auto 1.9 % 06/14/2019 COMPLETE BLOOD COUNT 5537665 Baso Auto 0.4 % 06/14/2019 COMPLETE BLOOD COUNT 1568067 Neutrophil Abs 2.74 10e9/L 06/14/2019 COMPLETE BLOOD COUNT 9282699 Lymphocyte Abs 1.11 10e9/L 06/14/2019 COMPLETE BLOOD COUNT 5937221 Monocyte Abs 0.64 10e9/L 06/14/2019 COMPLETE BLOOD COUNT 7256939 Eosinophil Abs 0.09 10e9/L 06/14/2019 COMPLETE BLOOD COUNT 2140046 RDW-SD 49.3 fL 06/14/2019 COMPLETE BLOOD COUNT 2789324 Basophil Abs 0.02 10e9/L 06/14/2019 PT 4248036 PT 22.3 Seconds 06/14/2019 PT 1004916 INR 1.9 06/14/2019 COMPLETE BLOOD COUNT 4397081 WBC 4.0 10e9/L 05/13/2019 COMPLETE BLOOD COUNT 8856747 RBC 3.82 10e12/L 9 COMPLETE BLOOD COUNT 7722944 HEMOGLOBIN 11.5 g/dL 05/13/2019 COMPLETE BLOOD COUNT 6204513 HEMATOCRIT 36.4 % 05/13/2019 COMPLETE BLOOD COUNT 5773259 MCV 95.3 fL 05/13/2019 COMPLETE BLOOD COUNT 5217626 MCH 30.1 pg 05/13/2019 COMPLETE BLOOD COUNT 7037093 MCHC 31.6 g/dL 05/13/2019 COMPLETE BLOOD COUNT 1940877 PLATELET COUNT 175 10e9/L 05/13/2019 COMPLETE BLOOD COUNT 3493298 Mean Plt Volume 10.5 fL 05/13/2019 COMPLETE BLOOD COUNT 0611916 Neut Auto 63.2 % 05/13/2019 COMPLETE BLOOD COUNT 9991590 Lymph Auto 22.0 % 05/13/2019 COMPLETE BLOOD COUNT 7417613 [place] Auto 12.1 % 05/13/2019 COMPLETE BLOOD COUNT 9932951 RDW 14.9 % 05/13/2019 COMPLETE BLOOD COUNT 3412551 Eos Auto 2.2 % 05/13/2019 COMPLETE BLOOD COUNT 6642620 Baso Auto 0.5 % 05/13/2019 COMPLETE BLOOD COUNT 3954783 Neutrophil Abs 2.53 10e9/L 05/13/2019 COMPLETE BLOOD COUNT 2114683 Lymphocyte Abs 0.88 10e9/L 05/13/2019 COMPLETE BLOOD COUNT 3926729 Monocyte Abs 0.48 10e9/L 05/13/2019 COMPLETE BLOOD COUNT 9701049 Eosinophil Abs 0.09 10e9/L 05/13/2019 COMPLETE BLOOD COUNT 6804825 RDW-SD 49.6 fL 05/13/2019 COMPLETE BLOOD COUNT 9821402 Basophil Abs 0.02 10e9/L 05/13/2019 COMPREHENSIVE METABOLIC 75543 AST 18 U/L 05/13/2019 COMPREHENSIVE METABOLIC 27062 ALT 14 U/L 05/13/2019 COMPREHENSIVE METABOLIC 62052 BUN 15 mg/dL 05/13/2019 COMPREHENSIVE METABOLIC 70107 ALBUMIN 4.0 g/dL 05/13/2019 COMPREHENSIVE METABOLIC 18448 CHLORIDE 108 mmol/L 05/13/2019 COMPREHENSIVE METABOLIC 22253 Bili Total 0.9 mg/dL 05/13/2019 COMPREHENSIVE METABOLIC 17444 ALK PHOS 84 U/L 05/13/2019 COMPREHENSIVE METABOLIC 43604 SODIUM 142 mmol/L 05/13/2019 COMPREHENSIVE METABOLIC 00460 CREATININE 0.72 mg/dL 05/13/2019 COMPREHENSIVE METABOLIC 05725 CALCIUM 8.9 mg/dL 05/13/2019 COMPREHENSIVE METABOLIC 00162 POTASSIUM 4.0 mmol/L 05/13/2019 COMPREHENSIVE METABOLIC 57947 Total Protein 5.5 g/dL 05/13/2019 COMPREHENSIVE METABOLIC 44563 Glucose 95 mg/dL 05/13/2019 COMPREHENSIVE METABOLIC 57503 Bicarbonate 27 mmol/L 05/13/2019 COMPREHENSIVE METABOLIC 50172 AGAP 7 mmol/L 05/13/2019 GFR CALC 2465701 GFR Non Afr Amr >60 mL/min 05/13/2019 GFR CALC 9576846 GFR Afr Amr >60 mL/min 05/13/2019 THYROID STIMULATING HORMONE 80990 TSH 2.669 uIU/mL 9 FREE T4 83146 T4 Free 1.19 ng/dL 05/13/2019 PT 4153655 PT 24.2 Seconds 05/06/2019 PT 3398365 INR 2.1 05/06/2019 PT 2717431 PT 24.1 Seconds 03/08/2019 PT 3751842 INR 2.9 03/08/2019 Review of Systems System [...] Procedures Procedure Codes Date ROUTINE VENIPUNCTURE CPT-4: 59497 07/18/2019 PT CPT-4: 3839635 07/18/2019 METABOLIC PANEL TOTA L CA CPT-4: 07568 07/06/2019 COMPLETE CBC W/AUTO DIFF WBC CPT-4: 75469 07/06/2019 PROTHROMBIN TIME CPT-4: 14764 07/06/2019 ROUTINE VENIPUNCTURE CPT-4: 03301 06/14/2019 PROTHROMBIN TIME CPT-4: 93539 06/14/2019 COMPLETE CBC W/AUTO DIFF WBC CPT-4: 02798 06/14/2019 ROUTINE VENIPUNCTURE CPT-4: 78801 05/13/2019 COMPREHEN METABOLIC PANEL CPT-4: 68014 05/13/2019 COMPLETE CBC W/AUTO DIFF WBC CPT-4: 57488 05/13/2019 ASSAY THYROID STIM H ORMONE CPT-4: 21709 05/13/2019 ASSAY OF FREE THYROXINE CPT-4: 50500 05/13/2019 PT CPT-4: 0721011 05/06/2019 ROUTINE VENIPUNCTURE CPT-4: 02988 05/06/2019 PT CPT-4: 8452067 04/07/2019 ROUTINE VENIPUNCTURE CPT-4: 08924 04/07/2019 ROUTINE VENIPUNCTURE CPT-4: 74906 03/08/2019 PROTHROMBIN TIME CPT-4: 28535 03/08/2019 Vital Signs Date Vital 06/14/2019 Blood [...] 1: 114/78 Code: 8480-6 BMI: 36.1 Code: 98517-3 Heart Rate 1: 76 bpm Height: 5'3" [...] Patient is scheduled to see Dr Jamey [place] Quality atrial fibrill ation 03/08/2019 None Quality [...] adulthood 03/08/2019 has had extensive workup in [place] including PFT, cardiac cath and tried numerous modalities including inhalers with no improvement--most recent cath showed blockage in small arteries so given imdur but has not started this routinely Advance Directives No Advance Directive data Encounters Encounter Performer Loca tion Codes Date ([id number]) NURSE/OUTPAT IENT VISIT EST Diagnosis: Chronic atrial fibrillation[ICD10: I48.2] Diagnosis: Encounter for therapeutic drug level monitoring[ICD10: Z51.81] Becki CONNELL [facility] CPT-4: 79118 07/18/2019 ([id number]) NURSE/OUTPAT IENT VISIT EST Diagnosis: Encounter for therapeutic drug level monitoring[ICD10: Z51.81] Diagnosis: Chronic atrial fibrillation[ICD10: I48.2] Diagnosis: Essential (primary) hypertension[ICD10: I10] Becki CONNELL 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 CPT-4: 86765 06/14/2019 ([id number]) OFFICE/OUTPA TIENT VISIT EST Diagnosis: Bitten by dog, sequela[ICD10: W54.0XXS] Diagnosis: Other fatigue[ICD10: R53.83] Diagnosis: Hypothyroidism, unspecified[ICD10: E03.9] Diagnosis: Muscle weakness (generalized)[ICD10: M62.81] Diagnosis: Generalized anxiety disorder[ICD10: F41.1] Jannette YOUNG ER [facility] CPT-4: 81954 05/13/2019 ([id number]) NURSE/OUTPAT IENT VISIT EST Diagnosis: Encounter for therapeutic drug level monitoring[ICD10: Z51.81] Becki BLACK DO [employer] CPT-4: 98562 05/06/2019 ([id number]) OFFICE/OUTPA TIENT VISIT EST Diagnosis: Bitten by dog, sequela[ICD10: W54.0XXS] Diagnosis: Pain in right wrist[ICD10: M25.531] Diagnosis: Abrasion of right upper arm, sequela[ICD10: S40.811S] Diagnosis: Abrasion of left upper arm, sequela[ICD10: S40.812S] Jannette YOUNG ER [facility] CPT-4: 64903 05/02/2019 ([id number]) NURSE/OUTPAT IENT VISIT EST Diagnosis: Encounter for therapeutic drug level monitoring[ICD10: Z51.81] Becki BLACK DO [employer] CPT-4: 16842 04/07/2019 ([id number]) OFFICE/OUTPA TIENT VISIT NEW Diagnosis: Encounter for therapeutic drug level monitoring[ICD10: Z51.81] Diagnosis: Chronic atrial fibrillation[ICD10: I48.2] Diagnosis: Essential (primary) hypertension[ICD10: I10] Diagnosis: Abnormal findings on diagnostic imaging of heart and coronary circulation[ICD10: R93.1] Diagnosis: Other forms of dyspnea[ICD10: R06.09] Diagnosis: Hypothyroidism, unspecified[ICD10: E03.9] Diagnosis: Mixed hyperlipidemia[ICD10: E78.2] Becki HUNTLEYR [employer] CPT-4: 97853 03/08/2019 Plan of Care Planned Activity Notes C odes Status Date App[facility]ment: [phone] [id number] 07/06/2019 Visit Diagnosis Plan: Bitten [...] L90.5 06/14/2019 Appointment: Beck[facility] [phone] [facility] FO[facility] UP 06/14/2019 Visit Diagnosis Plan: Muscle [...] hydrocodone several days ago. will refer to [facility] wel l to discuss concerns. ICD-9 : 300.02 ICD-10 : F41.1 05/13/2019 Appointment: Jannette Mayen [address] [place], [place] [id number] FOLLOW UP 05/13/2019 Patient Education: carvedilol- [employer] Coupon [id number] https://www.gate5.com/samplemd/resources/getResource/61/66t8t638-4dim-4750-2j Completed 05/13/2019 Patient Education: Xanax- [employer] Coupon [id number] https://www.gate5.com/samplemd/resources/getResource/61/8580p8w5-4x84-7l7w-z0 Completed 05/13/2019 Appointment: Becki Black WPtel: [phone] [facility]RUST LAB 05/06/2019 Visit Diagnosis Plan: Abrasion of [...] will send results to dr. portillo at [facility]. ICD-9 : 719.43 ICD-10 : M25.531 05/02/2019 Appointment: Jannette Mayen [address] [place], [place] [address] 05/02/2019 Care Plan: X-RAY EXAM OF WRIST right LOINC : 59374-9 Pending 05/02/2019 Appointment: Becki Black WPtel: [address] [place], [place] [id number] US LAB 04/07/2019 Appointment: Becki Black WPtel: [address] [place], [place] [id number] US BP CHECK 03/22/2019 Visit Diagnosis Plan: [...] : R06.09 03/08/2019 Appointment: Becki Black WPtel: [facility] NEW PATIENT 03/08/2019 Instructions No Instructions
--- OUTSIDE RECORDS SUMMARY | 2019-11-24 06:56 | XMS REPORT | CCD ---
Author Author Tricia Black D.O. 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 Name Role Phone PP Unavailable CCM Unavailable Summary Purpose Interface Exchange Insurance Providers Payer name Policy type / Coverage type Covered constitution party ID Effective Begin Date Effective End Date [employer] MEDIC[place] Medicare Part B [id number] Unknown Unknown [facility] Medicare Part B [id number] Unknown Unknown Family history Grandmother Diagnosis [...] Retir ed 03/08/[address]: 386971048 Has never smoked or chewed tobacco 03/08/[address]: 754380 Currently drinks alcohol 03/08/2019 Has the patient [...] 30 mg tablet,extended release 24 hr RxNorm: 690277 Tablet(s) 1 TABLET(S) PO NEEDED 06/27/2019 12/23/2019 Active Neris ent requests 90 days supply carvedilol 25 mg tablet RxNorm: 568382 1 TABLET(S) PO BID 06/27/2019 12/23/2019 Active isosorbide mononitra te ER 30 mg tablet,extended release 24 hr RxNorm: 524741 1 Tablet(s) PO QD as needed 06/27/2019 06/27/2019 Inactive Patient requests 90 days supply furosemide 40 mg tablet RxNorm: 809704 1 Tablet(s) PO QAM 06/21/2019 12/17/2019 Active Xanax 0.25 mg tablet RxNorm: 907355 1/2 Tablet(s) PO Q6H as needed 05/13/2019 No Stop Date Active carvedilol 25 mg tablet RxNorm: 644138 1 Tablet(s) PO BID 05/13/2019 06/26/2019 Inactive levothyroxine 50 mcg tablet RxNorm: 028720 1 Tablet(s) PO QD 04/26/2019 10/22/2019 Active losartan 50 mg tablet RxNorm: 921708 1 Tablet(s) PO QD 04/26/2019 10/22/2019 Active losartan 50 mg tablet RxNorm: 209453 1 Tablet(s) PO QD 04/20/2019 04/25/2019 Inactive pravastatin 40 mg ta blet RxNorm: 900263 1 Tablet(s) PO QD 04/07/2019 06/05/2019 Inactive isosorbide mononitra te ER 30 mg tablet,extended release 24 hr RxNorm: 450836 1 Tablet(s) PO as needed 04/07/2019 04/06/2019 Inactive isosorbide mononitra te ER 30 mg tablet,extended release 24 hr RxNorm: 058971 1 TABLET(S) PO NEEDED 04/07/2019 06/26/2019 Inactive Patient requests 90 days supply losartan 50 mg tablet RxNorm: 587072 1 Tablet(s) PO QD 03/22/2019 06/18/2019 Inactive Ventolin HFA 90 mcg/ actuation aerosol inhaler RxNorm: 425031 1-2 Puff(s) INH as ne eded No Start Date Active Coumadin 2 mg tablet RxNorm: 398656 1 Tablet(s) PO Mon, Fri, Sat and [...] E R 10 mEq capsule,extended release RxNorm: 856320 1 Capsule(s) PO QD No Start Date Active carvedilol 25 mg tablet RxNorm: 073925 1 Tablet(s) PO BID No Start Date 05/12/2019 Inactive losartan 50 mg tablet RxNorm: 903692 1 Tablet(s) PO QD No Start Date 03/21/2019 Inactive furosemide 40 mg tablet RxNorm: 210840 1 Tablet(s) PO QAM No Start Date 06/20/2019 Inactive pravastatin 40 mg ta blet RxNorm: 475896 1 Tablet(s) PO QD No Start Date 04/06/2019 Inactive isosorbide mononitra te ER 30 mg tablet,extended release 24 hr RxNorm: 421332 Tablet(s) PO as needed No Start Date 04/06/2019 Inactive levothyroxine 50 mcg tablet RxNorm: 973370 1 Tablet(s) PO QD No Start Date 04/25/2019 Inactive Medication Administered No Medication Administered data Immunizations Vaccine Codes Date Status Influenza CVX: 135 07/02 completed Assessments Condition Codes Effectiv e Dates Encounter for therapeutic drug level monitoring ICD-10: Z51.81 ICD-9: V58.83 07/06/2019 Chronic atrial fibrillation ICD-10: I48.2 ICD-9: 427.31 07/06/2019 Essential (primary) hypertension ICD -10: I10 ICD-9: [...] For Visit Effective Dates Notes lab draw 07/06/2019 follow up 06/14/2019 follow up 05/13/2019 lab draw 05/06/2019 follow up 05/02/2019 for wound check lab draw 04/07/2019 blood pressure check 03/22/2019 ~generic 03/08/2019 New Patient---establishing visit Results Observation Observation Code Item Item Code Result [place] [address] Glucose 75 mg/dL 07/06/2019 [place] [address] CREATININE 0.61 mg/dL 07/06/2019 [place] [address] BUN 15 mg/dL 07/06/2019 [place] [address] SODIUM 142 mmol/L 07/06/2019 [place] [address] POTASSIUM 4.0 mmol/L 07/06/2019 [place] [address] CHLORIDE 106 mmol/L 07/06/2019 [place] [address] Bicarbonate 28 mmol/L 07/06/2019 [place] [address] AGAP 8 mmol/L 07/06/2019 [place] [address] CALCIUM 9.3 mg/dL 07/06/2019 GFR CALC 3237392 GFR Non Afr Amr >60 mL/min 07/06/2019 GFR CALC 0047728 GFR Afr Amr >60 mL/min 07/06/2019 COMPLETE BLOOD COUNT 0424742 WBC 4.6 10e9/L 06/14/2019 COMPLETE BLOOD COUNT 4611738 RBC 4.16 10e12/L 9 COMPLETE BLOOD COUNT 3639045 HEMOGLOBIN 12.6 g/dL 06/14/2019 COMPLETE BLOOD COUNT 2945844 HEMATOCRIT 39.1 % 06/14/2019 COMPLETE BLOOD COUNT 3511149 MCV 94.0 fL 06/14/2019 COMPLETE BLOOD COUNT 0918777 MCH 30.3 pg 06/14/2019 COMPLETE BLOOD COUNT 2470844 MCHC 32.2 g/dL 06/14/2019 COMPLETE BLOOD COUNT 9368320 PLATELET COUNT 167 10e9/L 06/14/2019 COMPLETE BLOOD COUNT 0673503 Mean Plt Volume 10.9 fL 06/14/2019 COMPLETE BLOOD COUNT 6550245 Neut Auto 59.6 % 06/14/2019 COMPLETE BLOOD COUNT 9216742 Lymph Auto 24.1 % 06/14/2019 COMPLETE BLOOD COUNT 9174146 Dyer Auto 14.0 % 06/14/2019 COMPLETE BLOOD COUNT 4993822 RDW 14.8 % 06/14/2019 COMPLETE BLOOD COUNT 6249834 Eos Auto 1.9 % 06/14/2019 COMPLETE BLOOD COUNT 3006680 Baso Auto 0.4 % 06/14/2019 COMPLETE BLOOD COUNT 6370866 Neutrophil Abs 2.74 10e9/L 06/14/2019 COMPLETE BLOOD COUNT 9143392 Lymphocyte Abs 1.11 10e9/L 06/14/2019 COMPLETE BLOOD COUNT 4758622 Monocyte Abs 0.64 10e9/L 06/14/2019 COMPLETE BLOOD COUNT 1304425 Eosinophil Abs 0.09 10e9/L 06/14/2019 COMPLETE BLOOD COUNT 5162958 RDW-SD 49.3 fL 06/14/2019 COMPLETE BLOOD COUNT 8882918 Basophil Abs 0.02 10e9/L 06/14/2019 PT 5775257 PT 22.3 Seconds 06/14/2019 PT 4788579 INR 1.9 06/14/2019 COMPLETE BLOOD COUNT 5413942 WBC 4.0 10e9/L 05/13/2019 COMPLETE BLOOD COUNT 3392308 RBC 3.82 10e12/L 9 COMPLETE BLOOD COUNT 0712480 HEMOGLOBIN 11.5 g/dL 05/13/2019 COMPLETE BLOOD COUNT 0644145 HEMATOCRIT 36.4 % 05/13/2019 COMPLETE BLOOD COUNT 1198946 MCV 95.3 fL 05/13/2019 COMPLETE BLOOD COUNT 2023672 MCH 30.1 pg 05/13/2019 COMPLETE BLOOD COUNT 9912797 MCHC 31.6 g/dL 05/13/2019 COMPLETE BLOOD COUNT 9057707 PLATELET COUNT 175 10e9/L 05/13/2019 COMPLETE BLOOD COUNT 4864483 Mean Plt Volume 10.5 fL 05/13/2019 COMPLETE BLOOD COUNT 6030220 Neut Auto 63.2 % 05/13/2019 COMPLETE BLOOD COUNT 7571704 Lymph Auto 22.0 % 05/13/2019 COMPLETE BLOOD COUNT 3563527 Dyer Auto 12.1 % 05/13/2019 COMPLETE BLOOD COUNT 9949256 RDW 14.9 % 05/13/2019 COMPLETE BLOOD COUNT 1192482 Eos Auto 2.2 % 05/13/2019 COMPLETE BLOOD COUNT 7072829 Baso Auto 0.5 % 05/13/2019 COMPLETE BLOOD COUNT 3401170 Neutrophil Abs 2.53 10e9/L 05/13/2019 COMPLETE BLOOD COUNT 3033285 Lymphocyte Abs 0.88 10e9/L 05/13/2019 COMPLETE BLOOD COUNT 9181187 Monocyte Abs 0.48 10e9/L 05/13/2019 COMPLETE BLOOD COUNT 4906839 Eosinophil Abs 0.09 10e9/L 05/13/2019 COMPLETE BLOOD COUNT 6708119 RDW-SD 49.6 fL 05/13/2019 COMPLETE BLOOD COUNT 8980558 Basophil Abs 0.02 10e9/L 05/13/2019 COMPREHENSIVE METABOLIC 61561 AST 18 U/L 05/13/2019 COMPREHENSIVE METABOLIC 61635 ALT 14 U/L 05/13/2019 COMPREHENSIVE METABOLIC 62389 BUN 15 mg/dL 05/13/2019 COMPREHENSIVE METABOLIC 46755 ALBUMIN 4.0 g/dL 05/13/2019 COMPREHENSIVE METABOLIC 06517 CHLORIDE 108 mmol/L 05/13/2019 COMPREHENSIVE METABOLIC 74406 Bili Total 0.9 mg/dL 05/13/2019 COMPREHENSIVE METABOLIC 38317 ALK PHOS 84 U/L 05/13/2019 COMPREHENSIVE METABOLIC 51557 SODIUM 142 mmol/L 05/13/2019 COMPREHENSIVE METABOLIC 02425 CREATININE 0.72 mg/dL 05/13/2019 COMPREHENSIVE METABOLIC 35009 CALCIUM 8.9 mg/dL 05/13/2019 COMPREHENSIVE METABOLIC 32249 POTASSIUM 4.0 mmol/L 05/13/2019 COMPREHENSIVE METABOLIC 18124 Total Protein 5.5 g/dL 05/13/2019 COMPREHENSIVE METABOLIC 66532 Glucose 95 mg/dL 05/13/2019 COMPREHENSIVE METABOLIC 22328 Bicarbonate 27 mmol/L 05/13/2019 COMPREHENSIVE METABOLIC 08327 AGAP 7 mmol/L 05/13/2019 GFR CALC 0591809 GFR Non Afr Amr >60 mL/min 05/13/2019 GFR CALC 0774679 GFR Afr Amr >60 mL/min 05/13/2019 THYROID STIMULATING HORMONE 67841 TSH 2.669 uIU/mL 9 FREE T4 08910 T4 Free 1.19 ng/dL 05/13/2019 PT 5516825 PT 24.2 Seconds 05/06/2019 PT 9286526 INR 2.1 05/06/2019 PT 2932330 PT 24.1 Seconds 03/08/2019 PT 0379537 INR 2.9 03/08/2019 Review of Systems System [...] drainage 03/08/2019 None Procedures Procedure Codes Date METABOLIC PANEL TOTA L CA CPT-4: 28541 07/06/2019 COMPLETE CBC W/AUTO DIFF WBC CPT-4: 88817 07/06/2019 PROTHROMBIN TIME CPT-4: 71261 07/06/2019 ROUTINE VENIPUNCTURE CPT-4: 48395 06/14/2019 PROTHROMBIN TIME CPT-4: 80979 06/14/2019 COMPLETE CBC W/AUTO DIFF WBC CPT-4: 67121 06/14/2019 ROUTINE VENIPUNCTURE CPT-4: 02190 05/13/2019 COMPREHEN METABOLIC PANEL CPT-4: 45278 05/13/2019 COMPLETE CBC W/AUTO DIFF WBC CPT-4: 06770 05/13/2019 ASSAY THYROID STIM H ORMONE CPT-4: 83861 05/13/2019 ASSAY OF FREE THYROXINE CPT-4: 08055 05/13/2019 PT CPT-4: 0115540 05/06/2019 ROUTINE VENIPUNCTURE CPT-4: 93110 05/06/2019 PT CPT-4: 3475845 04/07/2019 ROUTINE VENIPUNCTURE CPT-4: 44893 04/07/2019 ROUTINE VENIPUNCTURE CPT-4: 75127 03/08/2019 PROTHROMBIN TIME CPT-4: 89949 03/08/2019 Vital Signs Date Vital 06/14/2019 Blood [...] 1: 114/78 Code: 8480-6 BMI: 36.1 Code: 54931-8 Heart Rate 1: 76 bpm Height: 5'3" [...] Encounters Encounter Performer Loca tion Codes Date ([id number]) NURSE/OUTPAT IENT VISIT EST Diagnosis: Encounter for therapeutic drug level monitoring[ICD10: Z51.81] Diagnosis: Chronic atrial fibrillation[ICD10: I48.2] Diagnosis: Essential (primary) hypertension[ICD10: I10] Becki MARTE [employer] CPT-4: 52396 07/06/2019 ([id number]) OFFICE/OUTPA TIENT VISIT EST Diagnosis: Encounter for therapeutic drug level monitoring[ICD10: Z51.81] Diagnosis: Anemia, unspecified[ICD10: D64.9] Diagnosis: Bitten by dog, sequela[ICD10: W54.0XXS] 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] Becki MARTE [employer] CPT-4: 10626 06/14/2019 ([id number]) OFFICE/OUTPA TIENT VISIT EST Diagnosis: Bitten by dog, sequela[ICD10: W54.0XXS] Diagnosis: Other fatigue[ICD10: R53.83] Diagnosis: Hypothyroidism, unspecified[ICD10: E03.9] Diagnosis: Muscle weakness (generalized)[ICD10: M62.81] Diagnosis: Generalized anxiety disorder[ICD10: F41.1] Jannette YOUNG [employer] CPT-4: 72924 05/13/2019 ([id number]) NURSE/OUTPAT IENT VISIT EST Diagnosis: Encounter for therapeutic drug level monitoring[ICD10: Z51.81] [facility] CPT-4: 82648 05/06/2019 ([id number]) OFFICE/OUTPA TIENT VISIT EST Diagnosis: Bitten by dog, sequela[ICD10: W54.0XXS] Diagnosis: Pain in right wrist[ICD10: M25.531] Diagnosis: Abrasion of right upper arm, sequela[ICD10: S40.811S] Diagnosis: Abrasion of left upper arm, sequela[ICD10: S40.812S] Jannette YOUNG [facility] CPT-4: 89606 05/02/2019 ([id number]) NURSE/OUTPAT IENT VISIT EST Diagnosis: Encounter for therapeutic drug level monitoring[ICD10: Z51.81] Becki JENNINGSLINE David BLACK [facility] CPT-4: 55675 04/07/2019 ([id number]) OFFICE/OUTPA TIENT VISIT NEW Diagnosis: Encounter for therapeutic drug level monitoring[ICD10: Z51.81] Diagnosis: Chronic atrial fibrillation[ICD10: I48.2] Diagnosis: Essential (primary) hypertension[ICD10: I10] Diagnosis: Abnormal findings on diagnostic imaging of heart and coronary circulation[ICD10: R93.1] Diagnosis: Other forms of dyspnea[ICD10: R06.09] Diagnosis: Hypothyroidism, unspecified[ICD10: E03.9] Diagnosis: Mixed hyperlipidemia[ICD10: E78.2] Becki HUNTLEY [employer] [facility] CPT-4: 61063 03/08/2019 Plan of Care Planned Activity Notes C odes Status Date Visit Diagnosis Plan: Bitten by dog, sequela [...] L90.5 06/14/2019 [facility]ment[facility] [phone] [id number] [facility] 06/14/2019 Visit Diagnosis [...] hydrocodone several days ago. will refer to [facility] as wel l to discuss concerns. ICD-9 : 300.02 ICD-10 : F41.1 05/13/2019 Appointment: Jannette Mayen [address] [place], [place] [id number] FOLLOW UP 05/13/2019 Patient Education: carvedilol- [employer] Coupon [id number] https://www.[employer].com/samplemd/resources/getResource/61/79f6e268-6bsh-2009-7a Completed 05/13/2019 Patient Education: Xanax- [employer] Coupon [id number] https://www.[employer]/samplemd/resources/getResource/61/2177j8s1-0z98-9j1l-o8 Completed 05/13/2019 Appointment: Becki Black WPtel: [address] [place], [place] [id number] US LAB 05/06/2019 Visit Diagnosis Plan: Abrasion [...] will send results to dr. portillo at [facility]. ICD-9 : 719.43 ICD-10 : M25.531 05/02/2019 Appointment: Jannette Mayen [address] [place], [place] [address] 05/02/2019 Care Plan: X-RAY EXAM OF WRIST right LOINC : 77056-2 Pending 05/02/2019 Appointment: Becki Black WPtel: [address] [place], [place] [phone] US LAB 04/07/2019 Appointment: Becki Black WPtel: [address] [place] [address] US BP CHECK 03/22/2019 Visit Diagnosis Plan: [...] R06.09 03/08/2019 App[facility]ment: [facility]el[facility] [phone] [id number] NEW [facility]IENT 03/08/2019 Instructions No Instructions
--- OUTSIDE RECORDS SUMMARY | 2019-11-24 06:57 | XMS REPORT | CCD ---
Author Author Tricia Black D.O. Organization [facility] DO [facility] Address [address] [place] [address] Phone Care Team Providers Care Ota Name Role Phone PP Unavailable CCM Unavailable Summary Purpose Interface Exchange Insurance Providers Payer name Policy type / Coverage type Covered constitution party ID Effective Begin Date Effective End Date [employer] MEDICARE [place] B [place] Medicare Part B [id number] Unknown Unknown [facility] Medicare Part B [id number] Unknown Unknown Family history Grandmother Diagnosis [...] Retir ed 03/08/[address]: 490995531 Has never smoked or chewed tobacco 03/08/[address]: 019796 Currently drinks alcohol 03/08/2019 Has the patient [...] Codes Condition Status Onset Date Resolved Date Anemia, unspecified ICD- 9: 285.9 ICD-10: D64.9 Active 06/14/2019 Unknown Bitten by dog, sequela ICD-9: 906.1 ICD-10: W54.0XXS Active 05/02/2019 Unknown Encounter for therap eutic drug level monitoring ICD-9: V58.83 ICD-10: Z51.81 Active 03/08/2019 Unknown Scar conditions and fibrosis of skin [...] 9: 719.43 ICD-10: M25.531 Active 05/02/2019 Unknown Essential (primary) hypertension ICD-9: 401.9 ICD-10: I10 Active 03/08/2019 Unknown Hypertension Unknown Active 03/08/2019 Unknow n Abnormal findings on diagnostic imaging of heart and coronary circulation ICD-9: 794.39 ICD-10: R93.1 Active 03/08/2019 Unknown Chronic atrial fibri llation ICD-9: 427.31 ICD-10: I48.2 Active 03/08/2019 Unknown Mixed hyperlipidemia ICD-9: 272.4 ICD-10: E78.2 Active 03/08/2019 Unknown Other forms of dyspnea ICD-9: 786.09 ICD-10: R06.09 Active 03/08/2019 Unknown Problems Condition Codes Effectiv e Dates Condition Status Anemia, unspecified ICD- 9: 285.9 ICD-10: D64.9 06/14/2019 Active Bitten by dog, sequela ICD-9: 906.1 ICD-10: W54.0XXS 05/02/2019 Active Encounter for therap eutic drug level monitoring ICD-9: V58.83 ICD-10: Z51.81 03/08/2019 Active Scar conditions and fibrosis of skin [...] ICD- 9: 719.43 ICD-10: M25.531 05/02/2019 Active Essential (primary) hypertension ICD-9: 401.9 ICD-10: I10 03/08/2019 Active Hypertension Unknown 03/08/2019 Active Abnormal findings on diagnostic imaging of heart and coronary circulation ICD-9: 794.39 ICD-10: R93.1 03/08/2019 Active Chronic atrial fibri llation ICD-9: 427.31 ICD-10: I48.2 03/08/2019 Active Mixed hyperlipidemia ICD-9: 272.4 ICD-10: E78.2 03/08/2019 Active Other forms of dyspnea ICD-9: 786.09 ICD-10: R06.09 03/08/2019 Active Medications Medication Codes Instruc tions Start Date Stop Date Sta tus Fill Instructions isosorbide mononitra te ER 30 mg tablet,extended release 24 hr RxNorm: 390436 Tablet(s) 1 TABLET(S) PO NEEDED 06/27/2019 12/23/2019 Active Neris ent requests 90 days supply isosorbide mononitra te ER 30 mg tablet,extended release 24 hr RxNorm: 649099 1 Tablet(s) PO QD as needed 06/27/2019 06/27/2019 Inactive Patient requests 90 days supply carvedilol 25 mg tablet RxNorm: 504647 1 TABLET(S) PO BID 06/27/2019 12/23/2019 Active furosemide 40 mg tablet RxNorm: 731533 1 Tablet(s) PO QAM 06/21/2019 12/17/2019 Active Xanax 0.25 mg tablet RxNorm: 774340 1/2 Tablet(s) PO Q6H as needed 05/13/2019 No Stop Date Active carvedilol 25 mg tablet RxNorm: 060155 1 Tablet(s) PO BID 05/13/2019 06/26/2019 Inactive levothyroxine 50 mcg tablet RxNorm: 713487 1 Tablet(s) PO QD 04/26/2019 10/22/2019 Active losartan 50 mg tablet RxNorm: 779685 1 Tablet(s) PO QD 04/26/2019 10/22/2019 Active losartan 50 mg tablet RxNorm: 889881 1 Tablet(s) PO QD 04/20/2019 04/25/2019 Inactive pravastatin 40 mg ta blet RxNorm: 074855 1 Tablet(s) PO QD 04/07/2019 06/05/2019 Inactive isosorbide mononitra te ER 30 mg tablet,extended release 24 hr RxNorm: 723112 1 Tablet(s) PO as needed 04/07/2019 04/06/2019 Inactive isosorbide mononitra te ER 30 mg tablet,extended release 24 hr RxNorm: 874323 1 TABLET(S) PO NEEDED 04/07/2019 06/26/2019 Inactive Patient requests 90 days supply losartan 50 mg tablet RxNorm: 134577 1 Tablet(s) PO QD 03/22/2019 06/18/2019 Inactive Ventolin HFA 90 mcg/ actuation aerosol inhaler RxNorm: 753054 1-2 Puff(s) INH as ne eded No Start Date Active Coumadin 2 mg tablet RxNorm: 314454 1 Tablet(s) PO Mon, Fri, Sat and [...] E R 10 mEq capsule,extended release RxNorm: 276668 1 Capsule(s) PO QD No Start Date Active carvedilol 25 mg tablet RxNorm: 696141 1 Tablet(s) PO BID No Start Date 05/12/2019 Inactive losartan 50 mg tablet RxNorm: 515016 1 Tablet(s) PO QD No Start Date 03/21/2019 Inactive furosemide 40 mg tablet RxNorm: 363226 1 Tablet(s) PO QAM No Start Date 06/20/2019 Inactive pravastatin 40 mg ta blet RxNorm: 351016 1 Tablet(s) PO QD No Start Date 04/06/2019 Inactive isosorbide mononitra te ER 30 mg tablet,extended release 24 hr RxNorm: 783993 Tablet(s) PO as needed No Start Date 04/06/2019 Inactive levothyroxine 50 mcg tablet RxNorm: 920998 1 Tablet(s) PO QD No Start Date 04/25/2019 Inactive Medication Administered No Medication Administered data Immunizations No Immunization data Assessments Condition Codes Effectiv e Dates 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-10: L90.5 ICD-9: 709.2 06/14/2019 Encounter for therapeutic drug level monitoring ICD-10: Z51.81 ICD-9: V58.83 06/14/2019 Bitten by dog, sequela ICD-10: W54.0 [...] arm, sequela ICD-10: S40.812S ICD-9: 906.2 05/02/2019 Essential (primary) hypertension ICD -10: I10 ICD-9: 401.9 03/22/2019 Abnormal findings on diagnostic imaging of heart and coronary circulation ICD-10: R93.1 ICD-9: 794.39 03/08/2019 Other forms of dyspnea ICD-10: R06.0 9 ICD-9: 786.09 03/08/2019 Chronic atrial fibrillation ICD-10: I48.2 ICD-9: 427.31 03/08/2019 Mixed hyperlipidemia ICD-10: E78.2 ICD-9: 272.4 03/08/2019 Reason For Visit Reason For Visit Effective Dates Notes follow up 06/14/2019 follow up 05/13/2019 lab draw 05/06/2019 follow up 05/02/2019 for wound check lab draw 04/07/2019 blood pressure check 03/22/2019 ~generic 03/08/2019 New Patient---establishing visit Results Observation Observation Code Item Item Code Result Date COMPLETE BLOOD COUNT 1352241 WBC 4.6 10e9/L 06/14/2019 COMPLETE BLOOD COUNT 8042940 RBC 4.16 10e12/L 9 COMPLETE BLOOD COUNT 6577028 HEMOGLOBIN 12.6 g/dL 06/14/2019 COMPLETE BLOOD COUNT 0189689 HEMATOCRIT 39.1 % 06/14/2019 COMPLETE BLOOD COUNT 7330777 MCV 94.0 fL 06/14/2019 COMPLETE BLOOD COUNT 4595216 MCH 30.3 pg 06/14/2019 COMPLETE BLOOD COUNT 6373050 MCHC 32.2 g/dL 06/14/2019 COMPLETE BLOOD COUNT 3606329 PLATELET COUNT 167 10e9/L 06/14/2019 COMPLETE BLOOD COUNT 2281991 Mean Plt Volume 10.9 fL 06/14/2019 COMPLETE BLOOD COUNT 7717496 Neut Auto 59.6 % 06/14/2019 COMPLETE BLOOD COUNT 6622582 Lymph Auto 24.1 % 06/14/2019 COMPLETE BLOOD COUNT 6144557 [facility] Auto 14.0 % 06/14/2019 COMPLETE BLOOD COUNT 5605138 RDW 14.8 % 06/14/2019 COMPLETE BLOOD COUNT 5087929 Eos Auto 1.9 % 06/14/2019 COMPLETE BLOOD COUNT 2120849 Baso Auto 0.4 % 06/14/2019 COMPLETE BLOOD COUNT 5535103 Neutrophil Abs 2.74 10e9/L 06/14/2019 COMPLETE BLOOD COUNT 1701508 Lymphocyte Abs 1.11 10e9/L 06/14/2019 COMPLETE BLOOD COUNT 5830601 Monocyte Abs 0.64 10e9/L 06/14/2019 COMPLETE BLOOD COUNT 8784224 Eosinophil Abs 0.09 10e9/L 06/14/2019 COMPLETE BLOOD COUNT 5743412 RDW-SD 49.3 fL 06/14/2019 COMPLETE BLOOD COUNT 3320564 Basophil Abs 0.02 10e9/L 06/14/2019 PT 3016653 PT 22.3 Seconds 06/14/2019 PT 2282976 INR 1.9 06/14/2019 COMPLETE BLOOD COUNT 9480421 WBC 4.0 10e9/L 05/13/2019 COMPLETE BLOOD COUNT 2298893 RBC 3.82 10e12/L 9 COMPLETE BLOOD COUNT 8032859 HEMOGLOBIN 11.5 g/dL 05/13/2019 COMPLETE BLOOD COUNT 7001616 HEMATOCRIT 36.4 % 05/13/2019 COMPLETE BLOOD COUNT 2158124 MCV 95.3 fL 05/13/2019 COMPLETE BLOOD COUNT 6152964 MCH 30.1 pg 05/13/2019 COMPLETE BLOOD COUNT 3541594 MCHC 31.6 g/dL 05/13/2019 COMPLETE BLOOD COUNT 4400686 PLATELET COUNT 175 10e9/L 05/13/2019 COMPLETE BLOOD COUNT 2247167 Mean Plt Volume 10.5 fL 05/13/2019 COMPLETE BLOOD COUNT 1427129 Neut Auto 63.2 % 05/13/2019 COMPLETE BLOOD COUNT 4359099 Lymph Auto 22.0 % 05/13/2019 COMPLETE BLOOD COUNT 6432002 [facility] Auto 12.1 % 05/13/2019 COMPLETE BLOOD COUNT 6765628 RDW 14.9 % 05/13/2019 COMPLETE BLOOD COUNT 9980688 Eos Auto 2.2 % 05/13/2019 COMPLETE BLOOD COUNT 0961313 Baso Auto 0.5 % 05/13/2019 COMPLETE BLOOD COUNT 8513751 Neutrophil Abs 2.53 10e9/L 05/13/2019 COMPLETE BLOOD COUNT 2355524 Lymphocyte Abs 0.88 10e9/L 05/13/2019 COMPLETE BLOOD COUNT 7971619 Monocyte Abs 0.48 10e9/L 05/13/2019 COMPLETE BLOOD COUNT 5755711 Eosinophil Abs 0.09 10e9/L 05/13/2019 COMPLETE BLOOD COUNT 2177386 RDW-SD 49.6 fL 05/13/2019 COMPLETE BLOOD COUNT 6112901 Basophil Abs 0.02 10e9/L 05/13/2019 COMPREHENSIVE METABOLIC 74453 AST 18 U/L 05/13/2019 COMPREHENSIVE METABOLIC 52522 ALT 14 U/L 05/13/2019 COMPREHENSIVE METABOLIC 50433 BUN 15 mg/dL 05/13/2019 COMPREHENSIVE METABOLIC 75578 ALBUMIN 4.0 g/dL 05/13/2019 COMPREHENSIVE METABOLIC 93663 CHLORIDE 108 mmol/L 05/13/2019 COMPREHENSIVE METABOLIC 63491 Bili Total 0.9 mg/dL 05/13/2019 COMPREHENSIVE METABOLIC 76816 ALK PHOS 84 U/L 05/13/2019 COMPREHENSIVE METABOLIC 68472 SODIUM 142 mmol/L 05/13/2019 COMPREHENSIVE METABOLIC 57785 CREATININE 0.72 mg/dL 05/13/2019 COMPREHENSIVE METABOLIC 78496 CALCIUM 8.9 mg/dL 05/13/2019 COMPREHENSIVE METABOLIC 12662 POTASSIUM 4.0 mmol/L 05/13/2019 COMPREHENSIVE METABOLIC 11033 Total Protein 5.5 g/dL 05/13/2019 COMPREHENSIVE METABOLIC 29669 Glucose 95 mg/dL 05/13/2019 COMPREHENSIVE METABOLIC 49046 Bicarbonate 27 mmol/L 05/13/2019 COMPREHENSIVE METABOLIC 12651 AGAP 7 mmol/L 05/13/2019 GFR CALC 6049210 GFR Non Afr Amr >60 mL/min 05/13/2019 GFR CALC 8849119 GFR Afr Amr >60 mL/min 05/13/2019 THYROID STIMULATING HORMONE 72293 TSH 2.669 uIU/mL 9 FREE T4 55325 T4 Free 1.19 ng/dL 05/13/2019 PT 9258871 PT 24.2 Seconds 05/06/2019 PT 1361001 INR 2.1 05/06/2019 PT 4370781 PT 24.1 Seconds 03/08/2019 PT 8353179 INR 2.9 03/08/2019 Review of Systems System [...] Procedures Procedure Codes Date ROUTINE VENIPUNCTURE CPT-4: 26880 06/14/2019 PROTHROMBIN TIME CPT-4: 67552 06/14/2019 COMPLETE CBC W/AUTO DIFF WBC CPT-4: 03190 06/14/2019 ROUTINE VENIPUNCTURE CPT-4: 42343 05/13/2019 COMPREHEN METABOLIC PANEL CPT-4: 67172 05/13/2019 COMPLETE CBC W/AUTO DIFF WBC CPT-4: 05046 05/13/2019 ASSAY THYROID STIM H ORMONE CPT-4: 52864 05/13/2019 ASSAY OF FREE THYROXINE CPT-4: 28978 05/13/2019 PT CPT-4: 3036417 05/06/2019 ROUTINE VENIPUNCTURE CPT-4: 06886 05/06/2019 PT CPT-4: 0319855 04/07/2019 ROUTINE VENIPUNCTURE CPT-4: 28003 04/07/2019 ROUTINE VENIPUNCTURE CPT-4: 87777 03/08/2019 PROTHROMBIN TIME CPT-4: 44657 03/08/2019 Vital Signs Date Vital 06/14/2019 Blood [...] 1: 114/78 Code: 8480-6 BMI: 36.1 Code: 67279-0 Heart Rate 1: 76 bpm Height: 5'3" [...] Encounters Encounter Performer Loca tion Codes Date ([id number]) OFFICE/OUTPA TIENT VISIT EST Diagnosis: Encounter for therapeutic drug level monitoring[ICD10: Z51.81] Diagnosis: Anemia, unspecified[ICD10: D64.9] Diagnosis: Bitten by dog, sequela[ICD10: W54.0XXS] 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] Becki WILSON [facility] CPT-4: 39902 06/14/2019 ([id number]) OFFICE/OUTPA TIENT VISIT EST Diagnosis: Bitten by dog, sequela[ICD10: W54.0XXS] Diagnosis: Other fatigue[ICD10: R53.83] Diagnosis: Hypothyroidism, unspecified[ICD10: E03.9] Diagnosis: Muscle weakness (generalized)[ICD10: M62.81] Diagnosis: Generalized anxiety disorder[ICD10: F41.1] Jannette PINZON [facility] CPT-4: 79448 05/13/2019 ([id number]) NURSE/OUTPAT IENT VISIT EST Diagnosis: Encounter for therapeutic drug level monitoring[ICD10: Z51.81] Becki BLACK [facility] CPT-4: 94276 05/06/2019 ([id number]) OFFICE/OUTPA TIENT VISIT EST Diagnosis: Bitten by dog, sequela[ICD10: W54.0XXS] Diagnosis: Pain in right wrist[ICD10: M25.531] Diagnosis: Abrasion of right upper arm, sequela[ICD10: S40.811S] Diagnosis: Abrasion of left upper arm, sequela[ICD10: S40.812S] Jannette PINZON [facility] CPT-4: 68432 05/02/2019 ([id number]) NURSE/OUTPAT IENT VISIT EST Diagnosis: Encounter for therapeutic drug level monitoring[ICD10: Z51.81] Becki BLACK [facility] CPT-4: 40031 04/07/2019 ([id number]) OFFICE/OUTPA TIENT VISIT NEW Diagnosis: Encounter for therapeutic drug level monitoring[ICD10: Z51.81] Diagnosis: Chronic atrial fibrillation[ICD10: I48.2] Diagnosis: Essential (primary) hypertension[ICD10: I10] Diagnosis: Abnormal findings on diagnostic imaging of heart and coronary circulation[ICD10: R93.1] Diagnosis: Other forms of dyspnea[ICD10: R06.09] Diagnosis: Hypothyroidism, unspecified[ICD10: E03.9] Diagnosis: Mixed hyperlipidemia[ICD10: E78.2] Becki WILSON DO [facility] CPT-4: 89244 03/08/2019 Plan of Care Planned Activity Notes C odes Status Date Visit Diagnosis Plan: Scar conditions and fibrosis of skin Discussion: Discussed Vitamin E or scar gel topically with gentle massage Fwup 3mos ICD-9 : 709.2 ICD-10 : L90.5 06/14/2019 Visit Diagnosis Plan: Anemia, unspecified Discussion: CBC drawn ICD-9 : 285.9 ICD-10 : D64.9 06/14/2019 Visit Diagnosis Plan: Bitten by dog, sequela Discussion: Is seeing counselor which is helping Has started PT for left wrist ICD-9 : 906.1 ICD-10 : W54.0XXS 06/14/2019 Visit Diagnosis Plan: Encounter for ther apeutic drug level monitoring Discussion: PT/INR drawn ICD-9 : V58.83 ICD-10 : Z51.81 06/14/2019 [facility]ointment: [facility] [phone] [id number] [facility] 06/14/2019 Visit Diagnosis Plan: Muscle [...] hydrocodone several days ago. will refer to [facility] as wel l to discuss concerns. ICD-9 : 300.02 ICD-10 : F41.1 05/13/2019 Appointment: Jannette Mayen [address] [place], [place] [id number] FOLLOW UP 05/13/2019 Patient Education: carvedilol- [employer] Coupon [id number] [email or web address]/samplemd/resources/getResource/61/[email or web address]-5641-0y Completed 05/13/2019 Patient Education: Xanax- [employer] Coupon [id number] [email or web address]://[email or web address]/samplemd/resources/getResource/61/[email or web address]-[email or web address] Completed 05/13/2019 Appointment: Becki Black [facility]Ptel[facility] [facility] 05/06/2019 Visit Diagnosis Plan: [...] 719.43 ICD-10 : M25.531 05/02/2019 Appointment: Jannette MayenAxel [address] [facility] 05/02/2019 Care Plan: X-RAY EXAM OF WRIST right LOINC : 97253-6 Pending 05/02/2019 Appointment: Becki Black WPtel: [address] [place], [place] [id number] US LAB 04/07/2019 Appointment: Becki Black WPtel: [address] [place] [address] BP CHECK 03/22/2019 Visit Diagnosis Plan: Abnormal [...] : R06.09 03/08/2019 Appointment: Becki Black WPtel: [address] [place], [place] [address] NEW PATIENT 03/08/2019 Instructions No Instructions
--- OUTSIDE RECORDS SUMMARY | 2019-11-24 06:57 | XMS REPORT | CCD ---
Author Author Tricia Black D.O. Organization [facility] DO [facility] Address [address] [place] [address] Phone Care Team Providers Care Glass Blowing Instructor Name Role Phone PP Unavailable CCM Unavailable Summary Purpose Interface Exchange Insurance Providers Payer name Policy type / Coverage type Covered democrat ID Effective Begin Date Effective End Date WPS MEDIC[place] Medicare Part B [id number] Unknown Unknown [facility] Medicare Part B [id number] Unknown Unknown Family history Grandmother Diagnosis [...] Retir ed 03/08/[address]: 907441080 Has never smoked or chewed tobacco 03/08/[address]: 569676 Currently drinks alcohol 03/08/2019 Has the patient [...] 30 mg tablet,extended release 24 hr RxNorm: 832697 Tablet(s) 1 TABLET(S) PO NEEDED 06/27/2019 12/23/2019 Active Neris ent requests 90 days supply carvedilol 25 mg tablet RxNorm: 988083 1 TABLET(S) PO BID 06/27/2019 12/23/2019 Active isosorbide mononitra te ER 30 mg tablet,extended release 24 hr RxNorm: 508605 1 Tablet(s) PO QD as needed 06/27/2019 06/27/2019 Inactive Patient requests 90 days supply furosemide 40 mg tablet RxNorm: 650914 1 Tablet(s) PO QAM 06/21/2019 12/17/2019 Active Xanax 0.25 mg tablet RxNorm: 392620 1/2 Tablet(s) PO Q6H as needed 05/13/2019 No Stop Date Active carvedilol 25 mg tablet RxNorm: 452090 1 Tablet(s) PO BID 05/13/2019 06/26/2019 Inactive levothyroxine 50 mcg tablet RxNorm: 879622 1 Tablet(s) PO QD 04/26/2019 10/22/2019 Active losartan 50 mg tablet RxNorm: 086798 1 Tablet(s) PO QD 04/26/2019 10/22/2019 Active losartan 50 mg tablet RxNorm: 625242 1 Tablet(s) PO QD 04/20/2019 04/25/2019 Inactive pravastatin 40 mg ta blet RxNorm: 151891 1 Tablet(s) PO QD 04/07/2019 06/05/2019 Inactive isosorbide mononitra te ER 30 mg tablet,extended release 24 hr RxNorm: 321563 1 Tablet(s) PO as needed 04/07/2019 04/06/2019 Inactive isosorbide mononitra te ER 30 mg tablet,extended release 24 hr RxNorm: 384429 1 TABLET(S) PO NEEDED 04/07/2019 06/26/2019 Inactive Patient requests 90 days supply losartan 50 mg tablet RxNorm: 557165 1 Tablet(s) PO QD 03/22/2019 06/18/2019 Inactive Ventolin HFA 90 mcg/ actuation aerosol inhaler RxNorm: 714231 1-2 Puff(s) INH as ne eded No Start Date Active Coumadin 2 mg tablet RxNorm: 508277 1 Tablet(s) PO Mon, Fri, Sat and [...] E R 10 mEq capsule,extended release RxNorm: 924276 1 Capsule(s) PO QD No Start Date Active carvedilol 25 mg tablet RxNorm: 914428 1 Tablet(s) PO BID No Start Date 05/12/2019 Inactive losartan 50 mg tablet RxNorm: 603984 1 Tablet(s) PO QD No Start Date 03/21/2019 Inactive furosemide 40 mg tablet RxNorm: 265906 1 Tablet(s) PO QAM No Start Date 06/20/2019 Inactive pravastatin 40 mg ta blet RxNorm: 168458 1 Tablet(s) PO QD No Start Date 04/06/2019 Inactive isosorbide mononitra te ER 30 mg tablet,extended release 24 hr RxNorm: 379127 Tablet(s) PO as needed No Start Date 04/06/2019 Inactive levothyroxine 50 mcg tablet RxNorm: 332172 1 Tablet(s) PO QD No Start Date [...] Item Code Result Date COMPLETE BLOOD COUNT 6018173 WBC 4.6 10e9/L 06/14/2019 COMPLETE BLOOD COUNT 6248227 RBC 4.16 10e12/L 9 COMPLETE BLOOD COUNT 2993845 HEMOGLOBIN 12.6 g/dL 06/14/2019 COMPLETE BLOOD COUNT 1329597 HEMATOCRIT 39.1 % 06/14/2019 COMPLETE BLOOD COUNT 6607358 MCV 94.0 fL 06/14/2019 COMPLETE BLOOD COUNT 7941019 MCH 30.3 pg 06/14/2019 COMPLETE BLOOD COUNT 8794622 MCHC 32.2 g/dL 06/14/2019 COMPLETE BLOOD COUNT 9954785 PLATELET COUNT 167 10e9/L 06/14/2019 COMPLETE BLOOD COUNT 5055711 Mean Plt Volume 10.9 fL 06/14/2019 COMPLETE BLOOD COUNT 5361801 Neut Auto 59.6 % 06/14/2019 COMPLETE BLOOD COUNT 4149228 Lymph Auto 24.1 % 06/14/2019 COMPLETE BLOOD COUNT 0919970 [place] Auto 14.0 % 06/14/2019 COMPLETE BLOOD COUNT 7012153 RDW 14.8 % 06/14/2019 COMPLETE BLOOD COUNT 5377104 Eos Auto 1.9 % 06/14/2019 COMPLETE BLOOD COUNT 2980640 Baso Auto 0.4 % 06/14/2019 COMPLETE BLOOD COUNT 1355541 Neutrophil Abs 2.74 10e9/L 06/14/2019 COMPLETE BLOOD COUNT 2258764 Lymphocyte Abs 1.11 10e9/L 06/14/2019 COMPLETE BLOOD COUNT 7276421 Monocyte Abs 0.64 10e9/L 06/14/2019 COMPLETE BLOOD COUNT 5053424 Eosinophil Abs 0.09 10e9/L 06/14/2019 COMPLETE BLOOD COUNT 7151116 RDW-SD 49.3 fL 06/14/2019 COMPLETE BLOOD COUNT 2971165 Basophil Abs 0.02 10e9/L 06/14/2019 PT 9134781 PT 22.3 Seconds 06/14/2019 PT 4698963 INR 1.9 06/14/2019 COMPLETE BLOOD COUNT 0123293 WBC 4.0 10e9/L 05/13/2019 COMPLETE BLOOD COUNT 4390281 RBC 3.82 10e12/L 9 COMPLETE BLOOD COUNT 4676558 HEMOGLOBIN 11.5 g/dL 05/13/2019 COMPLETE BLOOD COUNT 9904598 HEMATOCRIT 36.4 % 05/13/2019 COMPLETE BLOOD COUNT 9471045 MCV 95.3 fL 05/13/2019 COMPLETE BLOOD COUNT 0812190 MCH 30.1 pg 05/13/2019 COMPLETE BLOOD COUNT 3383613 MCHC 31.6 g/dL 05/13/2019 COMPLETE BLOOD COUNT 7006477 PLATELET COUNT 175 10e9/L 05/13/2019 COMPLETE BLOOD COUNT 2472144 Mean Plt Volume 10.5 fL 05/13/2019 COMPLETE BLOOD COUNT 4987453 Neut Auto 63.2 % 05/13/2019 COMPLETE BLOOD COUNT 8377815 Lymph Auto 22.0 % 05/13/2019 COMPLETE BLOOD COUNT 3737430 [place] Auto 12.1 % 05/13/2019 COMPLETE BLOOD COUNT 3744775 RDW 14.9 % 05/13/2019 COMPLETE BLOOD COUNT 6796069 Eos Auto 2.2 % 05/13/2019 COMPLETE BLOOD COUNT 6777994 Baso Auto 0.5 % 05/13/2019 COMPLETE BLOOD COUNT 4955852 Neutrophil Abs 2.53 10e9/L 05/13/2019 COMPLETE BLOOD COUNT 1349225 Lymphocyte Abs 0.88 10e9/L 05/13/2019 COMPLETE BLOOD COUNT 7634199 Monocyte Abs 0.48 10e9/L 05/13/2019 COMPLETE BLOOD COUNT 5909258 Eosinophil Abs 0.09 10e9/L 05/13/2019 COMPLETE BLOOD COUNT 3841817 RDW-SD 49.6 fL 05/13/2019 COMPLETE BLOOD COUNT 4708481 Basophil Abs 0.02 10e9/L 05/13/2019 COMPREHENSIVE METABOLIC 61226 AST 18 U/L 05/13/2019 COMPREHENSIVE METABOLIC 82209 ALT 14 U/L 05/13/2019 COMPREHENSIVE METABOLIC 35144 BUN 15 mg/dL 05/13/2019 COMPREHENSIVE METABOLIC 90335 ALBUMIN 4.0 g/dL 05/13/2019 COMPREHENSIVE METABOLIC 04639 CHLORIDE 108 mmol/L 05/13/2019 COMPREHENSIVE METABOLIC 48560 Bili Total 0.9 mg/dL 05/13/2019 COMPREHENSIVE METABOLIC 87075 ALK PHOS 84 U/L 05/13/2019 COMPREHENSIVE METABOLIC 08846 SODIUM 142 mmol/L 05/13/2019 COMPREHENSIVE METABOLIC 23724 CREATININE 0.72 mg/dL 05/13/2019 COMPREHENSIVE METABOLIC 16771 CALCIUM 8.9 mg/dL 05/13/2019 COMPREHENSIVE METABOLIC 87702 POTASSIUM 4.0 mmol/L 05/13/2019 COMPREHENSIVE METABOLIC 95726 Total Protein 5.5 g/dL 05/13/2019 COMPREHENSIVE METABOLIC 98562 Glucose 95 mg/dL 05/13/2019 COMPREHENSIVE METABOLIC 02725 Bicarbonate 27 mmol/L 05/13/2019 COMPREHENSIVE METABOLIC 67626 AGAP 7 mmol/L 05/13/2019 GFR CALC 5675966 GFR Non Afr Amr >60 mL/min 05/13/2019 GFR CALC 0835579 GFR Afr Amr >60 mL/min 05/13/2019 THYROID STIMULATING HORMONE 94277 TSH 2.669 uIU/mL 9 FREE T4 23420 T4 Free 1.19 ng/dL 05/13/2019 PT 5126395 PT 24.2 Seconds 05/06/2019 PT 5289845 INR 2.1 05/06/2019 PT 9165211 PT 24.1 Seconds 03/08/2019 PT 6827392 INR 2.9 03/08/2019 Review of Systems System [...] Date METABOLIC PANEL TOTA L CA CPT-4: 80028 07/06/2019 COMPLETE CBC W/AUTO DIFF WBC CPT-4: 82830 07/06/2019 PROTHROMBIN TIME CPT-4: 85081 07/06/2019 ROUTINE VENIPUNCTURE CPT-4: 86562 06/14/2019 PROTHROMBIN TIME CPT-4: 73467 06/14/2019 COMPLETE CBC W/AUTO DIFF WBC CPT-4: 29861 06/14/2019 ROUTINE VENIPUNCTURE CPT-4: 78988 05/13/2019 COMPREHEN METABOLIC PANEL CPT-4: 98302 05/13/2019 COMPLETE CBC W/AUTO DIFF WBC CPT-4: 29553 05/13/2019 ASSAY THYROID STIM H ORMONE CPT-4: 34959 05/13/2019 ASSAY OF FREE THYROXINE CPT-4: 74958 05/13/2019 PT CPT-4: 6890250 05/06/2019 ROUTINE VENIPUNCTURE CPT-4: 86155 05/06/2019 PT CPT-4: 5658112 04/07/2019 ROUTINE VENIPUNCTURE CPT-4: 62469 04/07/2019 ROUTINE VENIPUNCTURE CPT-4: 26983 03/08/2019 PROTHROMBIN TIME CPT-4: 86874 03/08/2019 Vital Signs Date Vital 06/14/2019 Blood [...] 1: 114/78 Code: 8480-6 BMI: 36.1 Code: 66838-8 Heart Rate 1: 76 bpm Height: 5'3" [...] adulthood 03/08/2019 has had extensive workup in [place] including PFT, cardiac cath and tried numerous modalities including inhalers with no improvement--most recent cath showed blockage in small arteries so given imdur but has not started this routinely Advance Directives No Advance Directive data Encounters Encounter Performer Loca tion Codes Date ([id number]) NURSE/OUTPAT IENT VISIT EST Diagnosis: Encounter for therapeutic drug level monitoring[ICD10: Z51.81] Diagnosis: Chronic atrial fibrillation[ICD10: I48.2] Diagnosis: Essential (primary) hypertension[ICD10: I10] Becki WILSON SmartStart CPT-4: 05751 07/06/2019 ([id number]) OFFICE/OUTPA TIENT VISIT EST Diagnosis: Encounter for therapeutic drug level monitoring[ICD10: Z51.81] Diagnosis: Anemia, unspecified[ICD10: D64.9] Diagnosis: Bitten by dog, sequela[ICD10: W54.0XXS] 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] Becki WILSON SmartStart CPT-4: 22077 06/14/2019 ([id number]) OFFICE/OUTPA TIENT VISIT EST Diagnosis: Bitten by dog, sequela[ICD10: W54.0XXS] Diagnosis: Other fatigue[ICD10: R53.83] Diagnosis: Hypothyroidism, unspecified[ICD10: E03.9] Diagnosis: Muscle weakness (generalized)[ICD10: M62.81] Diagnosis: Generalized anxiety disorder[ICD10: F41.1] Jannette YOUNG SmartStart CPT-4: 01639 05/13/2019 ([id number]) NURSE/OUTPAT IENT VISIT EST Diagnosis: Encounter for therapeutic drug level monitoring[ICD10: Z51.81] Becki YOUNG SmartStart CPT-4: 52182 05/06/2019 ([id number]) OFFICE/OUTPA TIENT VISIT EST Diagnosis: Bitten by dog, sequela[ICD10: W54.0XXS] Diagnosis: Pain in right wrist[ICD10: M25.531] Diagnosis: Abrasion of right upper arm, sequela[ICD10: S40.811S] Diagnosis: Abrasion of left upper arm, sequela[ICD10: S40.812S] Jannette YOUNG SmartStart CPT-4: 02066 05/02/2019 ([id number]) NURSE/OUTPAT IENT VISIT EST Diagnosis: Encounter for therapeutic drug level monitoring[ICD10: Z51.81] Becki BLACK SmartStart CPT-4: 82130 04/07/2019 ([id number]) OFFICE/OUTPA TIENT VISIT NEW Diagnosis: Encounter for therapeutic drug level monitoring[ICD10: Z51.81] Diagnosis: Chronic atrial fibrillation[ICD10: I48.2] Diagnosis: Essential (primary) hypertension[ICD10: I10] Diagnosis: Abnormal findings on diagnostic imaging of heart and coronary circulation[ICD10: R93.1] Diagnosis: Other forms of dyspnea[ICD10: R06.09] Diagnosis: Hypothyroidism, unspecified[ICD10: E03.9] Diagnosis: Mixed hyperlipidemia[ICD10: E78.2] Becki Wayne ORTEZQUELINE OfeAxel ESTUARDO WILSON SmartStart CPT-4: 63464 03/08/2019 Plan of Care Planned Activity Notes [...] L90.5 06/14/2019 [facility]ointment: [facility]el[facility] [phone] [id number] [facility] 06/14/2019 Visit Diagnosis Plan: Muscle [...] hydrocodone several days ago. will refer to [facility] as wel l to discuss concerns. ICD-9 : 300.02 ICD-10 : F41.1 05/13/2019 Appointment: Jannette Mayen [address] [place], [place] [address] FOLLOW UP 05/13/2019 Patient Education: carvedilol- OptimizeRX Coupon [id number] https://www.e-channel.Feedgen/samplemd/resources/getResource/61/62f8l903-1edd-8197-2q Completed 05/13/2019 Patient Education: Xanax- OptimizeRX Coupon [id number] https://www.e-channel.com/samplemd/resources/getResource/61/7806f5y2-2y44-1y0q-u8 Completed 05/13/2019 Appointment: Becki Black [facility]el[facility] [phone] [id number] [facility] 05/06/2019 Visit Diagnosis Plan: Abrasion [...] will send results to dr. portillo at [facility]. ICD-9 : 719.43 ICD-10 : M25.531 05/02/2019 Appointment: Jannette Mayen [address] [place] [address] ACUTE ILLNESS 05/02/2019 Care Plan: X-RAY EXAM OF WRIST right LOINC : 69189-0 Pending 05/02/2019 Appointment: Becki Black WPtel: [address] [place] [address] LAB 04/07/2019 Appointment: Becki Black WPtel: [address] [place] [address] BP CHECK 03/22/2019 Visit Diagnosis Plan: Abnormal [...] 03/08/2019 Appointment: Becki Black [facility]Ptel[facility] [phone] [id number] NEW PATIENT 03/08/2019 Instructions No Instructions
--- OUTSIDE RECORDS SUMMARY | 2019-11-24 06:57 | XMS REPORT | CCD ---
Author Author Tricia Black D.O. Organization [facility] DO [facility] Address [address] [place] [address] Phone Care Team Providers Care Salvage Determiner Name Role Phone PP Unavailable CCM Unavailable Summary Purpose Interface Exchange Insurance Providers Payer name Policy type / Coverage type Covered libertarian ID Effective Begin Date Effective End Date WPS MEDIC[place] PART B [place] Medicare Part B [id number] Unknown Unknown [facility] Medicare Part B [id number] Unknown Unknown Family history Grandmother Diagnosis [...] Retir ed 03/08/[address]: 275086200 Has never smoked or chewed tobacco 03/08/[address]: 891346 Currently drinks alcohol 03/08/2019 Has the patient [...] 30 mg tablet,extended release 24 hr RxNorm: 803506 Tablet(s) 1 TABLET(S) PO NEEDED 06/27/2019 12/23/2019 Active Neris ent requests 90 days supply carvedilol 25 mg tablet RxNorm: 004061 1 TABLET(S) PO BID 06/27/2019 12/23/2019 Active isosorbide mononitra te ER 30 mg tablet,extended release 24 hr RxNorm: 810946 1 Tablet(s) PO QD as needed 06/27/2019 06/27/2019 Inactive Patient requests 90 days supply furosemide 40 mg tablet RxNorm: 108123 1 Tablet(s) PO QAM 06/21/2019 12/17/2019 Active Xanax 0.25 mg tablet RxNorm: 695149 1/2 Tablet(s) PO Q6H as needed 05/13/2019 No Stop Date Active carvedilol 25 mg tablet RxNorm: 281153 1 Tablet(s) PO BID 05/13/2019 06/26/2019 Inactive levothyroxine 50 mcg tablet RxNorm: 960602 1 Tablet(s) PO QD 04/26/2019 10/22/2019 Active losartan 50 mg tablet RxNorm: 400475 1 Tablet(s) PO QD 04/26/2019 10/22/2019 Active losartan 50 mg tablet RxNorm: 544151 1 Tablet(s) PO QD 04/20/2019 04/25/2019 Inactive pravastatin 40 mg ta blet RxNorm: 103790 1 Tablet(s) PO QD 04/07/2019 06/05/2019 Inactive isosorbide mononitra te ER 30 mg tablet,extended release 24 hr RxNorm: 027815 1 Tablet(s) PO as needed 04/07/2019 04/06/2019 Inactive isosorbide mononitra te ER 30 mg tablet,extended release 24 hr RxNorm: 486235 1 TABLET(S) PO NEEDED 04/07/2019 06/26/2019 Inactive Patient requests 90 days supply losartan 50 mg tablet RxNorm: 020017 1 Tablet(s) PO QD 03/22/2019 06/18/2019 Inactive Ventolin HFA 90 mcg/ actuation aerosol inhaler RxNorm: 732271 1-2 Puff(s) INH as ne eded No Start Date Active Coumadin 2 mg tablet RxNorm: 133125 1 Tablet(s) PO Mon, Fri, Sat and [...] E R 10 mEq capsule,extended release RxNorm: 901407 1 Capsule(s) PO QD No Start Date Active carvedilol 25 mg tablet RxNorm: 698593 1 Tablet(s) PO BID No Start Date 05/12/2019 Inactive losartan 50 mg tablet RxNorm: 046045 1 Tablet(s) PO QD No Start Date 03/21/2019 Inactive furosemide 40 mg tablet RxNorm: 637003 1 Tablet(s) PO QAM No Start Date 06/20/2019 Inactive pravastatin 40 mg ta blet RxNorm: 314302 1 Tablet(s) PO QD No Start Date 04/06/2019 Inactive isosorbide mononitra te ER 30 mg tablet,extended release 24 hr RxNorm: 006776 Tablet(s) PO as needed No Start Date 04/06/2019 Inactive levothyroxine 50 mcg tablet RxNorm: 388018 1 Tablet(s) PO QD No Start Date [...] Item Code Result Date COMPLETE BLOOD COUNT 6938412 WBC 4.6 10e9/L 06/14/2019 COMPLETE BLOOD COUNT 5475931 RBC 4.16 10e12/L 9 COMPLETE BLOOD COUNT 8138870 HEMOGLOBIN 12.6 g/dL 06/14/2019 COMPLETE BLOOD COUNT 0711081 HEMATOCRIT 39.1 % 06/14/2019 COMPLETE BLOOD COUNT 1873591 MCV 94.0 fL 06/14/2019 COMPLETE BLOOD COUNT 4402303 MCH 30.3 pg 06/14/2019 COMPLETE BLOOD COUNT 1263925 MCHC 32.2 g/dL 06/14/2019 COMPLETE BLOOD COUNT 6705807 PLATELET COUNT 167 10e9/L 06/14/2019 COMPLETE BLOOD COUNT 3121963 Mean Plt Volume 10.9 fL 06/14/2019 COMPLETE BLOOD COUNT 1176452 Neut Auto 59.6 % 06/14/2019 COMPLETE BLOOD COUNT 5331982 Lymph Auto 24.1 % 06/14/2019 COMPLETE BLOOD COUNT 1815370 [place] Auto 14.0 % 06/14/2019 COMPLETE BLOOD COUNT 0195707 RDW 14.8 % 06/14/2019 COMPLETE BLOOD COUNT 2726318 Eos Auto 1.9 % 06/14/2019 COMPLETE BLOOD COUNT 3932072 Baso Auto 0.4 % 06/14/2019 COMPLETE BLOOD COUNT 5819350 Neutrophil Abs 2.74 10e9/L 06/14/2019 COMPLETE BLOOD COUNT 8086057 Lymphocyte Abs 1.11 10e9/L 06/14/2019 COMPLETE BLOOD COUNT 0188809 Monocyte Abs 0.64 10e9/L 06/14/2019 COMPLETE BLOOD COUNT 2721113 Eosinophil Abs 0.09 10e9/L 06/14/2019 COMPLETE BLOOD COUNT 1229266 RDW-SD 49.3 fL 06/14/2019 COMPLETE BLOOD COUNT 4678025 Basophil Abs 0.02 10e9/L 06/14/2019 PT 4148739 PT 22.3 Seconds 06/14/2019 PT 0737194 INR 1.9 06/14/2019 COMPLETE BLOOD COUNT 0476016 WBC 4.0 10e9/L 05/13/2019 COMPLETE BLOOD COUNT 8771764 RBC 3.82 10e12/L 9 COMPLETE BLOOD COUNT 9091890 HEMOGLOBIN 11.5 g/dL 05/13/2019 COMPLETE BLOOD COUNT 8791959 HEMATOCRIT 36.4 % 05/13/2019 COMPLETE BLOOD COUNT 4501865 MCV 95.3 fL 05/13/2019 COMPLETE BLOOD COUNT 4957414 MCH 30.1 pg 05/13/2019 COMPLETE BLOOD COUNT 8100105 MCHC 31.6 g/dL 05/13/2019 COMPLETE BLOOD COUNT 6300740 PLATELET COUNT 175 10e9/L 05/13/2019 COMPLETE BLOOD COUNT 1127108 Mean Plt Volume 10.5 fL 05/13/2019 COMPLETE BLOOD COUNT 7107124 Neut Auto 63.2 % 05/13/2019 COMPLETE BLOOD COUNT 0695892 Lymph Auto 22.0 % 05/13/2019 COMPLETE BLOOD COUNT 0020237 [place] Auto 12.1 % 05/13/2019 COMPLETE BLOOD COUNT 0424761 RDW 14.9 % 05/13/2019 COMPLETE BLOOD COUNT 4168441 Eos Auto 2.2 % 05/13/2019 COMPLETE BLOOD COUNT 6085500 Baso Auto 0.5 % 05/13/2019 COMPLETE BLOOD COUNT 3507084 Neutrophil Abs 2.53 10e9/L 05/13/2019 COMPLETE BLOOD COUNT 6788425 Lymphocyte Abs 0.88 10e9/L 05/13/2019 COMPLETE BLOOD COUNT 4219284 Monocyte Abs 0.48 10e9/L 05/13/2019 COMPLETE BLOOD COUNT 2261054 Eosinophil Abs 0.09 10e9/L 05/13/2019 COMPLETE BLOOD COUNT 3423317 RDW-SD 49.6 fL 05/13/2019 COMPLETE BLOOD COUNT 4076690 Basophil Abs 0.02 10e9/L 05/13/2019 COMPREHENSIVE METABOLIC 60831 AST 18 U/L 05/13/2019 COMPREHENSIVE METABOLIC 59473 ALT 14 U/L 05/13/2019 COMPREHENSIVE METABOLIC 60439 BUN 15 mg/dL 05/13/2019 COMPREHENSIVE METABOLIC 98943 ALBUMIN 4.0 g/dL 05/13/2019 COMPREHENSIVE METABOLIC 07780 CHLORIDE 108 mmol/L 05/13/2019 COMPREHENSIVE METABOLIC 21681 Bili Total 0.9 mg/dL 05/13/2019 COMPREHENSIVE METABOLIC 55843 ALK PHOS 84 U/L 05/13/2019 COMPREHENSIVE METABOLIC 09583 SODIUM 142 mmol/L 05/13/2019 COMPREHENSIVE METABOLIC 30681 CREATININE 0.72 mg/dL 05/13/2019 COMPREHENSIVE METABOLIC 48337 CALCIUM 8.9 mg/dL 05/13/2019 COMPREHENSIVE METABOLIC 49935 POTASSIUM 4.0 mmol/L 05/13/2019 COMPREHENSIVE METABOLIC 54136 Total Protein 5.5 g/dL 05/13/2019 COMPREHENSIVE METABOLIC 30601 Glucose 95 mg/dL 05/13/2019 COMPREHENSIVE METABOLIC 38543 Bicarbonate 27 mmol/L 05/13/2019 COMPREHENSIVE METABOLIC 75530 AGAP 7 mmol/L 05/13/2019 GFR CALC 5854449 GFR Non Afr Amr >60 mL/min 05/13/2019 GFR CALC 5971823 GFR Afr Amr >60 mL/min 05/13/2019 THYROID STIMULATING HORMONE 08863 TSH 2.669 uIU/mL 9 FREE T4 38906 T4 Free 1.19 ng/dL 05/13/2019 PT 8089200 PT 24.2 Seconds 05/06/2019 PT 8830266 INR 2.1 05/06/2019 PT 7336586 PT 24.1 Seconds 03/08/2019 PT 8263499 INR 2.9 03/08/2019 Review of Systems System [...] Date METABOLIC PANEL TOTA L CA CPT-4: 47803 07/06/2019 COMPLETE CBC W/AUTO DIFF WBC CPT-4: 38233 07/06/2019 PROTHROMBIN TIME CPT-4: 65702 07/06/2019 ROUTINE VENIPUNCTURE CPT-4: 46316 06/14/2019 PROTHROMBIN TIME CPT-4: 77220 06/14/2019 COMPLETE CBC W/AUTO DIFF WBC CPT-4: 20674 06/14/2019 ROUTINE VENIPUNCTURE CPT-4: 16686 05/13/2019 COMPREHEN METABOLIC PANEL CPT-4: 87885 05/13/2019 COMPLETE CBC W/AUTO DIFF WBC CPT-4: 57175 05/13/2019 ASSAY THYROID STIM H ORMONE CPT-4: 37842 05/13/2019 ASSAY OF FREE THYROXINE CPT-4: 48996 05/13/2019 PT CPT-4: 9711356 05/06/2019 ROUTINE VENIPUNCTURE CPT-4: 24938 05/06/2019 PT CPT-4: 3482398 04/07/2019 ROUTINE VENIPUNCTURE CPT-4: 62614 04/07/2019 ROUTINE VENIPUNCTURE CPT-4: 49587 03/08/2019 PROTHROMBIN TIME CPT-4: 41041 03/08/2019 Vital Signs Date Vital 06/14/2019 Blood [...] 1: 114/78 Code: 8480-6 BMI: 36.1 Code: 69206-5 Heart Rate 1: 76 bpm Height: 5'3" [...] adulthood 03/08/2019 has had extensive workup in [place] including PFT, cardiac cath and tried numerous modalities including inhalers with no improvement--most recent cath showed blockage in small arteries so given imdur but has not started this routinely Advance Directives No Advance Directive data Encounters Encounter Performer Loca tion Codes Date ([id number]) NURSE/OUTPAT IENT VISIT EST Diagnosis: Encounter for therapeutic drug level monitoring[ICD10: Z51.81] Diagnosis: Chronic atrial fibrillation[ICD10: I48.2] Diagnosis: Essential (primary) hypertension[ICD10: I10] Becki WILSON Emida CPT-4: 26746 07/06/2019 ([id number]) OFFICE/OUTPA TIENT VISIT EST Diagnosis: Encounter for therapeutic drug level monitoring[ICD10: Z51.81] Diagnosis: Anemia, unspecified[ICD10: D64.9] Diagnosis: Bitten by dog, sequela[ICD10: W54.0XXS] 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] Becki WILSON Emida CPT-4: 08367 06/14/2019 ([id number]) OFFICE/OUTPA TIENT VISIT EST Diagnosis: Bitten by dog, sequela[ICD10: W54.0XXS] Diagnosis: Other fatigue[ICD10: R53.83] Diagnosis: Hypothyroidism, unspecified[ICD10: E03.9] Diagnosis: Muscle weakness (generalized)[ICD10: M62.81] Diagnosis: Generalized anxiety disorder[ICD10: F41.1] Jannette YOUNG [place] CPT-4: 12154 05/13/2019 ([id number]) NURSE/OUTPAT IENT VISIT EST Diagnosis: Encounter for therapeutic drug level monitoring[ICD10: Z51.81] Becki YOUNG Em[place] CPT-4: 56357 05/06/2019 ([id number]) OFFICE/OUTPA TIENT VISIT EST Diagnosis: Bitten by dog, sequela[ICD10: W54.0XXS] Diagnosis: Pain in right wrist[ICD10: M25.531] Diagnosis: Abrasion of right upper arm, sequela[ICD10: S40.811S] Diagnosis: Abrasion of left upper arm, sequela[ICD10: S40.812S] Jannette YOUNG [place] CPT-4: 49787 05/02/2019 ([id number]) NURSE/OUTPAT IENT VISIT EST Diagnosis: Encounter for therapeutic drug level monitoring[ICD10: Z51.81] Becki BLACK [place] CPT-4: 41486 04/07/2019 ([id number]) OFFICE/OUTPA TIENT VISIT NEW Diagnosis: Encounter for therapeutic drug level monitoring[ICD10: Z51.81] Diagnosis: Chronic atrial fibrillation[ICD10: I48.2] Diagnosis: Essential (primary) hypertension[ICD10: I10] Diagnosis: Abnormal findings on diagnostic imaging of heart and coronary circulation[ICD10: R93.1] Diagnosis: Other forms of dyspnea[ICD10: R06.09] Diagnosis: Hypothyroidism, unspecified[ICD10: E03.9] Diagnosis: Mixed hyperlipidemia[ICD10: E78.2] Becki Wayne ORTEZQUELINE OfeAxel ESTUARDO WILSON [place] CPT-4: 15554 03/08/2019 Plan of Care Planned Activity Notes [...] L90.5 06/14/2019 Appointment: [facility] [phone] [id number] [facility] 06/14/2019 Visit Diagnosis Plan: Muscle [...] hydrocodone several days ago. will refer to [facility] to discuss concerns. ICD-9 : 300.02 ICD-10 : F41.1 05/13/2019 Appointment: Jannette Mayen [address] [place], [place] [address] FOLLOW UP 05/13/2019 Patient Education: carvedilol- OptimizeRX Coupon [id number] https://www.Tonchidot.[employer]/samplemd/resources/getResource/61/64n2m501-8ktm-6663-7d Completed 05/13/2019 Patient Education: Xanax- [employer] Coupon [id number] [email or web address].com/samplemd/resources/getResource/61/[email or web address]-[email or web address] Completed 05/13/2019 App[facility]ment: [facility] [phone] [facility] [facility] 05/06/2019 Visit Diagnosis Plan: Abrasion [...] will send results to dr. portillo at [facility]. ICD-9 : 719.43 ICD-10 : M25.531 05/02/2019 Appointment: Jannette Mayen [address] [place] [address] ACUTE ILLNESS 05/02/2019 Care Plan: X-RAY EXAM OF WRIST right LOINC : 51615-8 Pending 05/02/2019 Appointment: Becki Black WPtel: [address] [place] [address] LAB 04/07/2019 Appointment: Becki Black WPtel: [address] [place] [address] BP CHECK 03/22/2019 Visit Diagnosis Plan: Abnormal [...] R06.09 03/08/2019 Appointment: Beck[facility]el[facility] [phone] [facility] NEW PATIENT 03/08/2019 Instructions No Instructions
--- OUTSIDE RECORDS SUMMARY | 2019-11-24 06:58 | XMS REPORT | CCD ---
Author Author Tricia Black D.O. Organization [facility] Address [address] [place] [address] Phone Care Team Providers Care Marine Drafter Name Role Phone PP Unavailable CCM Unavailable Summary Purpose Interface Exchange Insurance Providers Payer name Policy type / Coverage type Covered democrat ID Effective Begin Date Effective End Date W[employer] MEDIC[place] PART [place] Medicare Part B [id number] Unknown Unknown [facility] Medicare Part B [id number] Unknown Unknown Family history Grandmother Diagnosis [...] Retir ed 03/08/[address]: 987557623 Has never smoked or chewed tobacco 03/08/[address]: 707142 Currently drinks alcohol 03/08/2019 Has the patient [...] 30 mg tablet,extended release 24 hr RxNorm: 894882 1 Tablet(s) PO QD as needed 06/27/2019 07/26/2019 Active Patient requests 90 day s supply carvedilol 25 mg tablet RxNorm: 063566 1 TABLET(S) PO BID 06/27/2019 12/23/2019 Active furosemide 40 mg tablet RxNorm: 191053 1 Tablet(s) PO QAM 06/21/2019 12/17/2019 Active Xanax 0.25 mg tablet RxNorm: 267201 1/2 Tablet(s) PO Q6H as needed 05/13/2019 No Stop Date Active carvedilol 25 mg tablet RxNorm: 963239 1 Tablet(s) PO BID 05/13/2019 06/26/2019 Inactive levothyroxine 50 mcg tablet RxNorm: 720006 1 Tablet(s) PO QD 04/26/2019 10/22/2019 Active losartan 50 mg tablet RxNorm: 772962 1 Tablet(s) PO QD 04/26/2019 10/22/2019 Active losartan 50 mg tablet RxNorm: 254201 1 Tablet(s) PO QD 04/20/2019 04/25/2019 Inactive pravastatin 40 mg ta blet RxNorm: 545608 1 Tablet(s) PO QD 04/07/2019 06/05/2019 Inactive isosorbide mononitra te ER 30 mg tablet,extended release 24 hr RxNorm: 450728 1 TABLET(S) PO NEEDED 04/07/2019 06/27/2019 Inactive Patient requests 90 days supply isosorbide mononitra te ER 30 mg tablet,extended release 24 hr RxNorm: 761884 1 Tablet(s) PO as needed 04/07/2019 04/06/2019 Inactive losartan 50 mg tablet RxNorm: 354632 1 Tablet(s) PO QD 03/22/2019 06/18/2019 Inactive Ventolin HFA 90 mcg/ actuation aerosol inhaler RxNorm: 852061 1-2 Puff(s) INH as ne eded No Start Date Active Coumadin 2 mg tablet RxNorm: 339775 1 Tablet(s) PO Mon, Fri, Sat and [...] E R 10 mEq capsule,extended release RxNorm: 089462 1 Capsule(s) PO QD No Start Date Active carvedilol 25 mg tablet RxNorm: 809066 1 Tablet(s) PO BID No Start Date 05/12/2019 Inactive losartan 50 mg tablet RxNorm: 697573 1 Tablet(s) PO QD No Start Date 03/21/2019 Inactive furosemide 40 mg tablet RxNorm: 654890 1 Tablet(s) PO QAM No Start Date 06/20/2019 Inactive pravastatin 40 mg ta blet RxNorm: 449838 1 Tablet(s) PO QD No Start Date 04/06/2019 Inactive isosorbide mononitra te ER 30 mg tablet,extended release 24 hr RxNorm: 721039 Tablet(s) PO as needed No Start Date 04/06/2019 Inactive levothyroxine 50 mcg tablet RxNorm: 850669 1 Tablet(s) PO QD No Start Date [...] Item Code Result Date COMPLETE BLOOD COUNT 6667418 WBC 4.6 10e9/L 06/14/2019 COMPLETE BLOOD COUNT 2616335 RBC 4.16 10e12/L 9 COMPLETE BLOOD COUNT 7350925 HEMOGLOBIN 12.6 g/dL 06/14/2019 COMPLETE BLOOD COUNT 4449255 HEMATOCRIT 39.1 % 06/14/2019 COMPLETE BLOOD COUNT 7700066 MCV 94.0 fL 06/14/2019 COMPLETE BLOOD COUNT 1221853 MCH 30.3 pg 06/14/2019 COMPLETE BLOOD COUNT 5455050 MCHC 32.2 g/dL 06/14/2019 COMPLETE BLOOD COUNT 1074873 PLATELET COUNT 167 10e9/L 06/14/2019 COMPLETE BLOOD COUNT 1728306 Mean Plt Volume 10.9 fL 06/14/2019 COMPLETE BLOOD COUNT 1063735 Neut Auto 59.6 % 06/14/2019 COMPLETE BLOOD COUNT 2698140 Lymph Auto 24.1 % 06/14/2019 COMPLETE BLOOD COUNT 4479976 Anson Auto 14.0 % 06/14/2019 COMPLETE BLOOD COUNT 7685274 RDW 14.8 % 06/14/2019 COMPLETE BLOOD COUNT 5063784 Eos Auto 1.9 % 06/14/2019 COMPLETE BLOOD COUNT 8721190 Baso Auto 0.4 % 06/14/2019 COMPLETE BLOOD COUNT 8891381 Neutrophil Abs 2.74 10e9/L 06/14/2019 COMPLETE BLOOD COUNT 0500326 Lymphocyte Abs 1.11 10e9/L 06/14/2019 COMPLETE BLOOD COUNT 6539998 Monocyte Abs 0.64 10e9/L 06/14/2019 COMPLETE BLOOD COUNT 3103260 Eosinophil Abs 0.09 10e9/L 06/14/2019 COMPLETE BLOOD COUNT 6953643 RDW-SD 49.3 fL 06/14/2019 COMPLETE BLOOD COUNT 0543035 Basophil Abs 0.02 10e9/L 06/14/2019 PT 3107085 PT 22.3 Seconds 06/14/2019 PT 7439982 INR 1.9 06/14/2019 COMPLETE BLOOD COUNT 5198191 WBC 4.0 10e9/L 05/13/2019 COMPLETE BLOOD COUNT 5323091 RBC 3.82 10e12/L 9 COMPLETE BLOOD COUNT 9501850 HEMOGLOBIN 11.5 g/dL 05/13/2019 COMPLETE BLOOD COUNT 9746061 HEMATOCRIT 36.4 % 05/13/2019 COMPLETE BLOOD COUNT 8783967 MCV 95.3 fL 05/13/2019 COMPLETE BLOOD COUNT 5123230 MCH 30.1 pg 05/13/2019 COMPLETE BLOOD COUNT 8240706 MCHC 31.6 g/dL 05/13/2019 COMPLETE BLOOD COUNT 2143229 PLATELET COUNT 175 10e9/L 05/13/2019 COMPLETE BLOOD COUNT 3744788 Mean Plt Volume 10.5 fL 05/13/2019 COMPLETE BLOOD COUNT 5797205 Neut Auto 63.2 % 05/13/2019 COMPLETE BLOOD COUNT 2409557 Lymph Auto 22.0 % 05/13/2019 COMPLETE BLOOD COUNT 0372500 Anson Auto 12.1 % 05/13/2019 COMPLETE BLOOD COUNT 8559176 RDW 14.9 % 05/13/2019 COMPLETE BLOOD COUNT 2494187 Eos Auto 2.2 % 05/13/2019 COMPLETE BLOOD COUNT 9812298 Baso Auto 0.5 % 05/13/2019 COMPLETE BLOOD COUNT 7574205 Neutrophil Abs 2.53 10e9/L 05/13/2019 COMPLETE BLOOD COUNT 2895151 Lymphocyte Abs 0.88 10e9/L 05/13/2019 COMPLETE BLOOD COUNT 6032176 Monocyte Abs 0.48 10e9/L 05/13/2019 COMPLETE BLOOD COUNT 4571945 Eosinophil Abs 0.09 10e9/L 05/13/2019 COMPLETE BLOOD COUNT 7009954 RDW-SD 49.6 fL 05/13/2019 COMPLETE BLOOD COUNT 9797110 Basophil Abs 0.02 10e9/L 05/13/2019 COMPREHENSIVE METABOLIC 04734 AST 18 U/L 05/13/2019 COMPREHENSIVE METABOLIC 89795 ALT 14 U/L 05/13/2019 COMPREHENSIVE METABOLIC 82358 BUN 15 mg/dL 05/13/2019 COMPREHENSIVE METABOLIC 55726 ALBUMIN 4.0 g/dL 05/13/2019 COMPREHENSIVE METABOLIC 16138 CHLORIDE 108 mmol/L 05/13/2019 COMPREHENSIVE METABOLIC 34724 Bili Total 0.9 mg/dL 05/13/2019 COMPREHENSIVE METABOLIC 97329 ALK PHOS 84 U/L 05/13/2019 COMPREHENSIVE METABOLIC 22367 SODIUM 142 mmol/L 05/13/2019 COMPREHENSIVE METABOLIC 47162 CREATININE 0.72 mg/dL 05/13/2019 COMPREHENSIVE METABOLIC 26114 CALCIUM 8.9 mg/dL 05/13/2019 COMPREHENSIVE METABOLIC 35939 POTASSIUM 4.0 mmol/L 05/13/2019 COMPREHENSIVE METABOLIC 11625 Total Protein 5.5 g/dL 05/13/2019 COMPREHENSIVE METABOLIC 19074 Glucose 95 mg/dL 05/13/2019 COMPREHENSIVE METABOLIC 10516 Bicarbonate 27 mmol/L 05/13/2019 COMPREHENSIVE METABOLIC 36038 AGAP 7 mmol/L 05/13/2019 GFR CALC 1700177 GFR Non Afr Amr >60 mL/min 05/13/2019 GFR CALC 5454975 GFR Afr Amr >60 mL/min 05/13/2019 THYROID STIMULATING HORMONE 43190 TSH 2.669 uIU/mL 9 FREE T4 94178 T4 Free 1.19 ng/dL 05/13/2019 PT 7961888 PT 24.2 Seconds 05/06/2019 PT 8611840 INR 2.1 05/06/2019 PT 8606493 PT 24.1 Seconds 03/08/2019 PT 8829271 INR 2.9 03/08/2019 Review of Systems System [...] Procedures Procedure Codes Date ROUTINE VENIPUNCTURE CPT-4: 61633 06/14/2019 PROTHROMBIN TIME CPT-4: 15218 06/14/2019 COMPLETE CBC W/AUTO DIFF WBC CPT-4: 19612 06/14/2019 ROUTINE VENIPUNCTURE CPT-4: 11501 05/13/2019 COMPREHEN METABOLIC PANEL CPT-4: 42778 05/13/2019 COMPLETE CBC W/AUTO DIFF WBC CPT-4: 91008 05/13/2019 ASSAY THYROID STIM H ORMONE CPT-4: 21522 05/13/2019 ASSAY OF FREE THYROXINE CPT-4: 69312 05/13/2019 PT CPT-4: 5222064 05/06/2019 ROUTINE VENIPUNCTURE CPT-4: 03094 05/06/2019 PT CPT-4: 3629594 04/07/2019 ROUTINE VENIPUNCTURE CPT-4: 27817 04/07/2019 ROUTINE VENIPUNCTURE CPT-4: 26510 03/08/2019 PROTHROMBIN TIME CPT-4: 97179 03/08/2019 Vital Signs Date Vital 06/14/2019 Blood [...] 1: 114/78 Code: 8480-6 BMI: 36.1 Code: 25955-9 Heart Rate 1: 76 bpm Height: 5'3" [...] adulthood 03/08/2019 has had extensive workup in [place] including PFT, cardiac cath and tried numerous modalities including inhalers with no improvement--most recent cath showed blockage in small arteries so given imdur but has not started this routinely Advance Directives No Advance Directive data Encounters Encounter Performer Loca tion Codes Date ([id number]) OFFICE/OUTPA TIENT VISIT EST Diagnosis: Encounter for therapeutic drug level monitoring[ICD10: Z51.81] Diagnosis: Anemia, unspecified[ICD10: D64.9] Diagnosis: Bitten by dog, sequela[ICD10: W54.0XXS] 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] Becki WILSON DO [facility] CPT-4: 41940 06/14/2019 ([id number]) OFFICE/OUTPA TIENT VISIT EST Diagnosis: Bitten by dog, sequela[ICD10: W54.0XXS] Diagnosis: Other fatigue[ICD10: R53.83] Diagnosis: Hypothyroidism, unspecified[ICD10: E03.9] Diagnosis: Muscle weakness (generalized)[ICD10: M62.81] Diagnosis: Generalized anxiety disorder[ICD10: F41.1] Jannette PINZON [employer] CPT-4: 83177 05/13/2019 ([id number]) NURSE/OUTPAT IENT VISIT EST Diagnosis: Encounter for therapeutic drug level monitoring[ICD10: Z51.81] Beckimario Hernandez [employer] CPT-4: 08997 05/06/2019 ([id number]) OFFICE/OUTPA TIENT VISIT EST Diagnosis: Bitten by dog, sequela[ICD10: W54.0XXS] Diagnosis: Pain in right wrist[ICD10: M25.531] Diagnosis: Abrasion of right upper arm, sequela[ICD10: S40.811S] Diagnosis: Abrasion of left upper arm, sequela[ICD10: S40.812S] Jannette ORTEZQUELINE OfeAxel [employer] CPT-4: 44194 05/02/2019 ([id number]) NURSE/OUTPAT IENT VISIT EST Diagnosis: Encounter for therapeutic drug level monitoring[ICD10: Z51.81] Beckimario Hernandez ESTUARDOWedding PartyALBERTA [employer] CPT-4: 28394 04/07/2019 ([id number]) OFFICE/OUTPA TIENT VISIT NEW Diagnosis: Encounter for therapeutic drug level monitoring[ICD10: Z51.81] Diagnosis: Chronic atrial fibrillation[ICD10: I48.2] Diagnosis: Essential (primary) hypertension[ICD10: I10] Diagnosis: Abnormal findings on diagnostic imaging of heart and coronary circulation[ICD10: R93.1] Diagnosis: Other forms of dyspnea[ICD10: R06.09] Diagnosis: Hypothyroidism, unspecified[ICD10: E03.9] Diagnosis: Mixed hyperlipidemia[ICD10: E78.2] Becki Hernandez ESTUARDO HUNTLEY [employer] CPT-4: 41341 03/08/2019 Plan of Care Planned Activity Notes [...] Z51.81 06/14/2019 [facility]ment[facility] [phone] [facility] [facility] 06/14/2019 Visit Diagnosis Plan: [...] hydrocodone several days ago. will refer to [facility] to discuss concerns. ICD-9 : 300.02 ICD-10 : F41.1 05/13/2019 [facility] [address] [facility] [facility] 05/13/2019 Patient Education: carvedilol- [employer] Coupon [id number] [email or web address].[email or web address]/samplemd/resources/[email or web address] Completed 05/13/2019 Patient Education: Xanax- [employer] Coupon [id number] [email or web address].[email or web address]/samplemd/resources/[email or web address] Completed 05/13/2019 Appointment: Becki Black WPtel: [phone] [facility] LAB 05/06/2019 Visit Diagnosis Plan: Abrasion of [...] : 719.43 ICD-10 : M25.531 05/02/2019 Appointment: Tiarra Jannette Vasquez [address] [place], [place] [id number] ACUTE ILLNESS 05/02/2019 Care Plan: X-RAY EXAM OF WRIST right LOINC : 69932-1 Pending 05/02/2019 Appointment: Becki Black WPtel: [address] [place], [place] [phone] US LAB 04/07/2019 Appointment: Becki Black WPtel: [address] [place], [place] [phone] US BP CHECK 03/22/2019 Visit Diagnosis Plan: [...] : R06.09 03/08/2019 Appointment: Becki Black WPtel: [address] [place], [place] [phone] NEW PATIENT 03/08/2019 Instructions No Instructions
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
--- OUTSIDE RECORDS SUMMARY | 2019-11-24 06:58 | XMS REPORT | CCD ---
Author Author Tricia Black D.O. 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 Name Role Phone PP Unavailable CCM Unavailable Summary Purpose Interface Exchange Insurance Providers Payer name Policy type / Coverage type Covered democrat ID Effective Begin Date Effective End Date WPS MEDICARE PART B [place] Medicare Part B [id number] Unknown Unknown [facility] Medicare Part B [id number] Unknown Unknown Family history Grandmother Diagnosis [...] Retir ed 03/08/[address]: 833763306 Has never smoked or chewed tobacco 03/08/[address]: 222245 Currently drinks alcohol 03/08/2019 Has the patient [...] Date Stop Date Sta tus Fill Instructions carvedilol 25 mg tablet RxNorm: 643283 1 TABLET(S) PO BID 06/27/2019 12/23/2019 Active furosemide 40 mg tablet RxNorm: 701278 1 Tablet(s) PO QAM 06/21/2019 12/17/2019 Active Xanax 0.25 mg tablet RxNorm: 909448 1/2 Tablet(s) PO Q6H as needed 05/13/2019 No Stop Date Active carvedilol 25 mg tablet RxNorm: 086946 1 Tablet(s) PO BID 05/13/2019 06/26/2019 Inactive levothyroxine 50 mcg tablet RxNorm: 210737 1 Tablet(s) PO QD 04/26/2019 10/22/2019 Active losartan 50 mg tablet RxNorm: 379175 1 Tablet(s) PO QD 04/26/2019 10/22/2019 Active losartan 50 mg tablet RxNorm: 669827 1 Tablet(s) PO QD 04/20/2019 04/25/2019 Inactive pravastatin 40 mg ta blet RxNorm: 276340 1 Tablet(s) PO QD 04/07/2019 06/05/2019 Inactive isosorbide mononitra te ER 30 mg tablet,extended release 24 hr RxNorm: 704245 1 TABLET(S) PO NEEDED 04/07/2019 05/06/2019 Inactive Patient requests 90 days supply isosorbide mononitra te ER 30 mg tablet,extended release 24 hr RxNorm: 801375 1 Tablet(s) PO as needed 04/07/2019 04/06/2019 Inactive losartan 50 mg tablet RxNorm: 874037 1 Tablet(s) PO QD 03/22/2019 06/18/2019 Inactive Ventolin HFA 90 mcg/ actuation aerosol inhaler RxNorm: 111940 1-2 Puff(s) INH as ne eded No Start Date Active Coumadin 2 mg tablet RxNorm: 145017 1 Tablet(s) PO Mon, Fri, Sat and [...] E R 10 mEq capsule,extended release RxNorm: 975777 1 Capsule(s) PO QD No Start Date Active carvedilol 25 mg tablet RxNorm: 676381 1 Tablet(s) PO BID No Start Date 05/12/2019 Inactive losartan 50 mg tablet RxNorm: 625686 1 Tablet(s) PO QD No Start Date 03/21/2019 Inactive furosemide 40 mg tablet RxNorm: 848012 1 Tablet(s) PO QAM No Start Date 06/20/2019 Inactive pravastatin 40 mg ta blet RxNorm: 273303 1 Tablet(s) PO QD No Start Date 04/06/2019 Inactive isosorbide mononitra te ER 30 mg tablet,extended release 24 hr RxNorm: 288932 Tablet(s) PO as needed No Start Date 04/06/2019 Inactive levothyroxine 50 mcg tablet RxNorm: 955800 1 Tablet(s) PO QD No Start Date [...] Item Code Result Date COMPLETE BLOOD COUNT 6561239 WBC 4.6 10e9/L 06/14/2019 COMPLETE BLOOD COUNT 1439064 RBC 4.16 10e12/L 9 COMPLETE BLOOD COUNT 9742057 HEMOGLOBIN 12.6 g/dL 06/14/2019 COMPLETE BLOOD COUNT 3590344 HEMATOCRIT 39.1 % 06/14/2019 COMPLETE BLOOD COUNT 3826810 MCV 94.0 fL 06/14/2019 COMPLETE BLOOD COUNT 8474838 MCH 30.3 pg 06/14/2019 COMPLETE BLOOD COUNT 9368267 MCHC 32.2 g/dL 06/14/2019 COMPLETE BLOOD COUNT 1759962 PLATELET COUNT 167 10e9/L 06/14/2019 COMPLETE BLOOD COUNT 4400298 Mean Plt Volume 10.9 fL 06/14/2019 COMPLETE BLOOD COUNT 2554120 Neut Auto 59.6 % 06/14/2019 COMPLETE BLOOD COUNT 7073263 Lymph Auto 24.1 % 06/14/2019 COMPLETE BLOOD COUNT 5830107 [place] Auto 14.0 % 06/14/2019 COMPLETE BLOOD COUNT 1321351 RDW 14.8 % 06/14/2019 COMPLETE BLOOD COUNT 8357063 Eos Auto 1.9 % 06/14/2019 COMPLETE BLOOD COUNT 6849332 Baso Auto 0.4 % 06/14/2019 COMPLETE BLOOD COUNT 4180892 Neutrophil Abs 2.74 10e9/L 06/14/2019 COMPLETE BLOOD COUNT 4116324 Lymphocyte Abs 1.11 10e9/L 06/14/2019 COMPLETE BLOOD COUNT 9710299 Monocyte Abs 0.64 10e9/L 06/14/2019 COMPLETE BLOOD COUNT 6766074 Eosinophil Abs 0.09 10e9/L 06/14/2019 COMPLETE BLOOD COUNT 1997148 RDW-SD 49.3 fL 06/14/2019 COMPLETE BLOOD COUNT 8320310 Basophil Abs 0.02 10e9/L 06/14/2019 PT 5272714 PT 22.3 Seconds 06/14/2019 PT 5731247 INR 1.9 06/14/2019 COMPLETE BLOOD COUNT 3979990 WBC 4.0 10e9/L 05/13/2019 COMPLETE BLOOD COUNT 2078437 RBC 3.82 10e12/L 9 COMPLETE BLOOD COUNT 6942065 HEMOGLOBIN 11.5 g/dL 05/13/2019 COMPLETE BLOOD COUNT 2406859 HEMATOCRIT 36.4 % 05/13/2019 COMPLETE BLOOD COUNT 0150085 MCV 95.3 fL 05/13/2019 COMPLETE BLOOD COUNT 8675255 MCH 30.1 pg 05/13/2019 COMPLETE BLOOD COUNT 6843766 MCHC 31.6 g/dL 05/13/2019 COMPLETE BLOOD COUNT 8395358 PLATELET COUNT 175 10e9/L 05/13/2019 COMPLETE BLOOD COUNT 7724454 Mean Plt Volume 10.5 fL 05/13/2019 COMPLETE BLOOD COUNT 0212091 Neut Auto 63.2 % 05/13/2019 COMPLETE BLOOD COUNT 7169717 Lymph Auto 22.0 % 05/13/2019 COMPLETE BLOOD COUNT 2953587 [place] Auto 12.1 % 05/13/2019 COMPLETE BLOOD COUNT 8313402 RDW 14.9 % 05/13/2019 COMPLETE BLOOD COUNT 3852151 Eos Auto 2.2 % 05/13/2019 COMPLETE BLOOD COUNT 5916440 Baso Auto 0.5 % 05/13/2019 COMPLETE BLOOD COUNT 6699919 Neutrophil Abs 2.53 10e9/L 05/13/2019 COMPLETE BLOOD COUNT 5954977 Lymphocyte Abs 0.88 10e9/L 05/13/2019 COMPLETE BLOOD COUNT 2997582 Monocyte Abs 0.48 10e9/L 05/13/2019 COMPLETE BLOOD COUNT 1249311 Eosinophil Abs 0.09 10e9/L 05/13/2019 COMPLETE BLOOD COUNT 5418833 RDW-SD 49.6 fL 05/13/2019 COMPLETE BLOOD COUNT 5903752 Basophil Abs 0.02 10e9/L 05/13/2019 COMPREHENSIVE METABOLIC 39047 AST 18 U/L 05/13/2019 COMPREHENSIVE METABOLIC 33935 ALT 14 U/L 05/13/2019 COMPREHENSIVE METABOLIC 15216 BUN 15 mg/dL 05/13/2019 COMPREHENSIVE METABOLIC 91708 ALBUMIN 4.0 g/dL 05/13/2019 COMPREHENSIVE METABOLIC 24245 CHLORIDE 108 mmol/L 05/13/2019 COMPREHENSIVE METABOLIC 35663 Bili Total 0.9 mg/dL 05/13/2019 COMPREHENSIVE METABOLIC 12814 ALK PHOS 84 U/L 05/13/2019 COMPREHENSIVE METABOLIC 61465 SODIUM 142 mmol/L 05/13/2019 COMPREHENSIVE METABOLIC 91539 CREATININE 0.72 mg/dL 05/13/2019 COMPREHENSIVE METABOLIC 74115 CALCIUM 8.9 mg/dL 05/13/2019 COMPREHENSIVE METABOLIC 25407 POTASSIUM 4.0 mmol/L 05/13/2019 COMPREHENSIVE METABOLIC 30566 Total Protein 5.5 g/dL 05/13/2019 COMPREHENSIVE METABOLIC 80954 Glucose 95 mg/dL 05/13/2019 COMPREHENSIVE METABOLIC 48948 Bicarbonate 27 mmol/L 05/13/2019 COMPREHENSIVE METABOLIC 82005 AGAP 7 mmol/L 05/13/2019 GFR CALC 9921754 GFR Non Afr Amr >60 mL/min 05/13/2019 GFR CALC 7455130 GFR Afr Amr >60 mL/min 05/13/2019 THYROID STIMULATING HORMONE 45006 TSH 2.669 uIU/mL 9 FREE T4 19761 T4 Free 1.19 ng/dL 05/13/2019 PT 3715919 PT 24.2 Seconds 05/06/2019 PT 4563424 INR 2.1 05/06/2019 PT 0522588 PT 24.1 Seconds 03/08/2019 PT 8068945 INR 2.9 03/08/2019 Review of Systems System [...] Procedures Procedure Codes Date ROUTINE VENIPUNCTURE CPT-4: 50656 06/14/2019 PROTHROMBIN TIME CPT-4: 08988 06/14/2019 COMPLETE CBC W/AUTO DIFF WBC CPT-4: 63878 06/14/2019 ROUTINE VENIPUNCTURE CPT-4: 12537 05/13/2019 COMPREHEN METABOLIC PANEL CPT-4: 67519 05/13/2019 COMPLETE CBC W/AUTO DIFF WBC CPT-4: 80053 05/13/2019 ASSAY THYROID STIM H ORMONE CPT-4: 46856 05/13/2019 ASSAY OF FREE THYROXINE CPT-4: 72379 05/13/2019 PT CPT-4: 2674282 05/06/2019 ROUTINE VENIPUNCTURE CPT-4: 75744 05/06/2019 PT CPT-4: 2355348 04/07/2019 ROUTINE VENIPUNCTURE CPT-4: 55140 04/07/2019 ROUTINE VENIPUNCTURE CPT-4: 10677 03/08/2019 PROTHROMBIN TIME CPT-4: 26167 03/08/2019 Vital Signs Date Vital 06/14/2019 Blood [...] 1: 114/78 Code: 8480-6 BMI: 36.1 Code: 85442-9 Heart Rate 1: 76 bpm Height: 5'3" [...] adulthood 03/08/2019 has had extensive workup in [place] including PFT, cardiac cath and tried numerous modalities including inhalers with no improvement--most recent cath showed blockage in small arteries so given imdur but has not started this routinely Advance Directives No Advance Directive data Encounters Encounter Performer Loca tion Codes Date ([id number]) OFFICE/OUTPA TIENT VISIT EST Diagnosis: Encounter for therapeutic drug level monitoring[ICD10: Z51.81] Diagnosis: Anemia, unspecified[ICD10: D64.9] Diagnosis: Bitten by dog, sequela[ICD10: W54.0XXS] 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] Becki WILSON DO [facility] CPT-4: 70423 06/14/2019 ([id number]) OFFICE/OUTPA TIENT VISIT EST Diagnosis: Bitten by dog, sequela[ICD10: W54.0XXS] Diagnosis: Other fatigue[ICD10: R53.83] Diagnosis: Hypothyroidism, unspecified[ICD10: E03.9] Diagnosis: Muscle weakness (generalized)[ICD10: M62.81] Diagnosis: Generalized anxiety disorder[ICD10: F41.1] Jannette YOUNG [facility] CPT-4: 23821 05/13/2019 ([id number]) NURSE/OUTPAT IENT VISIT EST Diagnosis: Encounter for therapeutic drug level monitoring[ICD10: Z51.81] Becki BALCK [facility] CPT-4: 43762 05/06/2019 ([id number]) OFFICE/OUTPA TIENT VISIT EST Diagnosis: Bitten by dog, sequela[ICD10: W54.0XXS] Diagnosis: Pain in right wrist[ICD10: M25.531] Diagnosis: Abrasion of right upper arm, sequela[ICD10: S40.811S] Diagnosis: Abrasion of left upper arm, sequela[ICD10: S40.812S] Jannette YOUNG [facility] CPT-4: 20111 05/02/2019 ([id number]) NURSE/OUTPAT IENT VISIT EST Diagnosis: Encounter for therapeutic drug level monitoring[ICD10: Z51.81] Becki BLACK [facility] CPT-4: 10443 04/07/2019 ([id number]) OFFICE/OUTPA TIENT VISIT NEW Diagnosis: Encounter for therapeutic drug level monitoring[ICD10: Z51.81] Diagnosis: Chronic atrial fibrillation[ICD10: I48.2] Diagnosis: Essential (primary) hypertension[ICD10: I10] Diagnosis: Abnormal findings on diagnostic imaging of heart and coronary circulation[ICD10: R93.1] Diagnosis: Other forms of dyspnea[ICD10: R06.09] Diagnosis: Hypothyroidism, unspecified[ICD10: E03.9] Diagnosis: Mixed hyperlipidemia[ICD10: E78.2] Becki HUNTLEY [facility] [employer] CPT-4: 12768 03/08/2019 Plan of Care Planned Activity Notes [...] Z51.81 06/14/2019 [facility] [address] [facility] [facility] 06/14/2019 Visit Diagnosis [...] several days ago. will refer to [facility] l to discuss concerns. ICD-9 : 300.02 ICD-10 : F41.1 05/13/2019 Appointment: [facility]en [address] [id number] 05/13/2019 Patient Education: carvedilol- Optimize[employer] Coupon [id number] https://www.samplemd.com/samplemd/resources/getResource/61/34i7j910-5pes-5335-6y Completed 05/13/2019 Patient Education: Xanax- [employer] Coupon [id number] https://www.[employer].Instaclustr/samplemd/resources/getResource/61/2658b8t0-0i00-3l1n-t3 Completed 05/13/2019 Appointment: Becki Black WPtel: [address] [place] [address] US LAB 05/06/2019 Visit Diagnosis Plan: Abrasion [...] send results to dr. portillo at [facility]. ICD-9 : 719.43 ICD-10 : M25.531 05/02/2019 Appointment: Jannette Mayen [address] [place] [address] ACUTE ILLNESS 05/02/2019 Care Plan: X-RAY EXAM OF WRIST right LOINC : 92597-9 Pending 05/02/2019 Appointment: Becki Black WPtel: [facility] US LAB 04/07/2019 Appointment: Becki Black WPtel: [phone] [facility] BP CHECK 03/22/2019 Visit Diagnosis Plan: Abnormal [...] R06.09 03/08/2019 [facility]ment: [facility] [address] [facility] NEW PATIENT 03/08/2019 Instructions No Instructions
== END 2019-10-29 00:45 | disposition home or self-care (01) ==
LOC: EDUNIT# 21:15 → ER 21:16
DX: S00.03XA Contusion of scalp, initial encounter (principal); S50.01XA Contusion of right elbow, initial encounter; M62.830 Muscle spasm of back; I48.91 Unspecified atrial fibrillation; G47.30 Sleep apnea, unspecified; J45.909 Unspecified asthma, uncomplicated; R40.2142 Coma scale, eyes open, spontaneous, at arrival to emergency department; R40.2252 Coma scale, best verbal response, oriented, at arrival to emergency department; R40.2362 Coma scale, best motor response, obeys commands, at arrival to emergency department; Z85.828 Personal history of other malignant neoplasm of skin; Z86.73 Personal history of transient ischemic attack (TIA), and cerebral infarction without residual deficits; Z90.89 Acquired absence of other organs; Z90.710 Acquired absence of both cervix and uterus; Z79.01 Long term (current) use of anticoagulants; Z88.5 Allergy status to narcotic agent; Z88.8 Allergy status to other drugs, medicaments and biological substances; W01.198A Fall on same level from slipping, tripping and stumbling with subsequent striking against other object, initial encounter
CPT/HCPCS: 70450; 72125; 73080; 96372

== ENCOUNTER → 2019-10-31 | Outpatient (CLI) | payer MEDICARE ==
[~2019-10-31] MED LIST changes: +ASPI-586 PO; +CARV25TA PO; +CYCL10TA9 PO; +FURO40TA4 PO; +ISOS30TA3 PO; +LEVO50TA6 PO; +LOSA50TA63 PO; +ONDA4TAB11 PO; +POTA10TA10 PO; +PRAV40TA2 PO; +WARF-47 PO; +WARF4TAB70 PO
--- NOTE | 2019-10-31 13:28 | Diagnostic Imaging Report ---
PROCEDURE: CT head without contrast. TECHNIQUE: Multiple contiguous axial images were obtained through the brain without the use of intravenous contrast. Auto Exposure Controls were utilized during the CT exam to meet ALARA standards for radiation dose reduction. INDICATION: Fall, hypertension and head injury. Comparison made with prior examination of 10/28/2019. FINDINGS: There is prominence of the ventricles and sulci. There is a large lacunar infarct in right basal ganglia which is unchanged. No hydrocephalus. No midline shift. There is no mass, hemorrhage or extra-axial fluid collection. There is a right parietal scalp hematoma. Calvarium is intact. Sinuses and mastoid air cells are clear. IMPRESSION: Atrophy and some chronic microvascular ischemic disease with unchanged focal lacunar infarct in right basal ganglia Right parietal scalp hematoma No other acute acute intracranial abnormality. Dictated by: Dictated on workstation # [id number]
== END ==
LOC: RAD 12:32
PROVIDERS: ATTEND Nurse Practitioner Family
DX: G31.9 Degenerative disease of nervous system, unspecified (principal); I67.82 Cerebral ischemia; I10 Essential (primary) hypertension; W19.XXXA Unspecified fall, initial encounter; Z79.01 Long term (current) use of anticoagulants
CPT/HCPCS: 70450

== ENCOUNTER → 2019-11-02 | Outpatient (CLI) | payer MEDICARE ==
[~2019-11-02] VITALS: Ht 165.1 cm; Wt 92.8 kg
[~2019-11-02] MED LIST changes: +DENOSUMAB 60 MG/1 ML (PROLIA) SQ ONE
[2019-11-02 13:05] VITALS: BP 154/92
== END ==
LOC: SDC 13:01
PROVIDERS: ATTEND Family Medicine
DX: M81.0 Age-related osteoporosis without current pathological fracture (principal)
CPT/HCPCS: 96372

== ENCOUNTER → 2020-01-31 | Outpatient (RCR) | payer MEDICARE ==
[2019-11-10 10:35] VITALS: BP 120/70
[2019-11-10 11:37] VITALS: BP 115/60
[2019-11-17 12:50] VITALS: BP 140/90
[2019-11-17 13:48] VITALS: BP 100/80
[2019-11-22 13:45] VITALS: BP 120/64
[2019-11-24 12:55] VITALS: BP 128/60
[2019-11-24 14:05] VITALS: BP 120/80
[2019-12-01 13:00] VITALS: BP 103/60
[2019-12-01 14:02] VITALS: BP 128/80
[2019-12-06 12:50] VITALS: BP 103/60
[2019-12-06 13:55] VITALS: BP 130/80
[2019-12-08 12:45] VITALS: BP 123/76
[2019-12-08 14:10] VITALS: BP 127/70
[2019-12-13 12:50] VITALS: BP 130/70
[2019-12-13 14:07] VITALS: BP 121/60
[2019-12-15 13:00] VITALS: BP 120/60
[2019-12-15 14:15] VITALS: BP 120/70
[2019-12-20 13:00] VITALS: BP 118/60
[2019-12-20 14:15] VITALS: BP 130/60
[2019-12-22 13:00] VITALS: BP 138/82
[2019-12-22 14:09] VITALS: BP 137/80
[2019-12-27 13:00] VITALS: BP 140/89
[2019-12-27 14:23] VITALS: BP 130/60
[2019-12-29 13:00] VITALS: BP 127/88
[2020-01-03 12:45] VITALS: BP 140/82
[2020-01-03 13:50] VITALS: BP 130/82
[2020-01-05 13:00] VITALS: BP 140/60
[2020-01-05 14:09] VITALS: BP 140/60
[2020-01-10 13:00] VITALS: BP 140/70
[2020-01-10 14:10] VITALS: BP 125/80
[2020-01-17 13:00] VITALS: BP 100/60
[2020-01-17 14:05] VITALS: BP 115/50
[2020-01-19 12:50] VITALS: BP 116/68
[2020-01-19 14:07] VITALS: BP 118/68
[2020-01-24 12:50] VITALS: BP 128/60
[2020-01-24 14:07] VITALS: BP 149/80
[2020-01-26 13:00] VITALS: BP 115/60
[2020-01-26 14:11] VITALS: BP 138/60
[~2020-01-31] MED LIST changes: -DENOSUMAB 60 MG/1 ML (PROLIA) SQ ONE
[2020-01-31 13:00] VITALS: BP 132/80
[2020-01-31 16:22] VITALS: BP 115/60
[2020-02-02 13:00] VITALS: BP 120/60
[2020-02-02 14:15] VITALS: BP 122/80
== END | disposition home or self-care (01) ==
LOC: PULM 11-02 14:03
PROVIDERS: ATTEND Family Medicine
DX: J44.9 Chronic obstructive pulmonary disease, unspecified (principal)
CPT/HCPCS: 99211

== ENCOUNTER → 2020-05-02 | Outpatient (CLI) | payer MEDICARE ==
[~2020-05-02] VITALS: Ht 165.1 cm; Wt 90.9 kg
[~2020-05-02] MED LIST changes: +DENOSUMAB 60 MG/1 ML (PROLIA) SQ SCH
[2020-05-02 12:45] VITALS: BP 158/74
== END ==
LOC: SDC 12:42
PROVIDERS: ATTEND Family Medicine
DX: M81.0 Age-related osteoporosis without current pathological fracture (principal)
CPT/HCPCS: 96372

== ENCOUNTER → 2020-06-13 | Outpatient (CLI) | payer MEDICARE ==
[~2020-06-13] MED LIST changes: -DENOSUMAB 60 MG/1 ML (PROLIA) SQ SCH
== END ==
LOC: CARD 08:59
PROVIDERS: ATTEND Internal Medicine Interventional Cardiology
DX: I48.19 Other persistent atrial fibrillation (principal); I25.10 Atherosclerotic heart disease of native coronary artery without angina pectoris; R06.02 Shortness of breath; I08.3 Combined rheumatic disorders of mitral, aortic and tricuspid valves
CPT/HCPCS: 93306

== ENCOUNTER → 2020-06-25 | Outpatient (CLI) | payer MEDICARE ==
--- NOTE | 2020-06-25 08:58 | Diagnostic Imaging Report ---
INDICATION: Osteoarthritis. COMPARISON: 05/17/2019. TECHNIQUE: Three radiographs of the right wrist dated 06/25/2020. FINDINGS: No acute fracture or dislocation. No destructive osseous process. Diffuse osseous demineralization. Widening of the scapholunate distance at near 4 mm, similar to the prior examination. No proximal migration of the capitate. Severe degenerative changes of the 1st CMC joint are noted with severe joint space loss and prominent osteophyte formation. Chondrocalcinosis of the triangular fibrocartilage. Mild vascular calcifications. No significant erosive changes. IMPRESSION: No acute osseous abnormality with scattered degenerative changes including advanced degenerative changes involving the 1st CMC joint. 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 There is, however, no proximal migration of the capitate. Chondrocalcinosis of the triangular fibrocartilage which can be seen with CPPD deposition disease versus osteoarthritis versus additional etiologies. Mild vascular calcifications. Dictated by: Dictated on workstation # [id number]
== END ==
LOC: ORTHO 08:39
PROVIDERS: ATTEND Orthopaedic Surgery
DX: M19.031 Primary osteoarthritis, right wrist (principal); M11.231 Other chondrocalcinosis, right wrist
CPT/HCPCS: 73110; G0463; 99213

== ENCOUNTER → 2020-08-15 | Outpatient (CLI) | payer MEDICARE ==
[~2020-08-15] MED LIST changes: +WARF4TAB3 PO; -WARF4TAB70 PO
== END ==
LOC: LABNPT 06:02
PROVIDERS: ATTEND Nurse Practitioner Family
DX: Z11.59 Encounter for screening for other viral diseases (principal); Z20.828 Contact with and (suspected) exposure to other viral communicable diseases
CPT/HCPCS: 87635

== ENCOUNTER → 2020-08-30 | Outpatient (CLI) | payer MEDICARE | LOC: LABNPT 08:28 | PROVIDERS: ATTEND Thoracic Surgery (Cardiothoracic Vascular Surgery) | DX: Z20.828 Contact with and (suspected) exposure to other viral communicable diseases (principal) | CPT/HCPCS: 87635 ==

== ENCOUNTER 2020-11-22 10:34 | Outpatient (CLI) | payer MEDICARE ==
[~2020-11-22] VITALS: Wt 90.9 kg
[2020-11-22] MEDS ORDERED: DENOSUMAB 60 MG/1 ML (PROLIA) SQ SCH (11:00)
[2020-11-22 11:05] VITALS: BP 104/63
[2020-11-22 11:26] LABS: CALCIUM 9.1 MG/DL (8.5-10.1); CREATININE SERUM 0.93 MG/DL (0.60-1.30); POTASSIUM 4.2 MMOL/L (3.6-5.0)
== END 2020-11-22 11:05 | disposition home or self-care (01) ==
LOC: SDC 10:34
PROVIDERS: ATTEND Family Medicine
DX: M81.0 Age-related osteoporosis without current pathological fracture (principal)
CPT/HCPCS: 36415; 80048; 96372

== ENCOUNTER → 2021-02-06 | Outpatient (CLI) | payer MEDICARE ==
[~2021-02-06] MED LIST changes: -ISOS30TA3 PO; +ISOS30TA82 PO
== END ==
LOC: CARD 10:25
PROVIDERS: ATTEND Family Medicine
DX: Z01.818 Encounter for other preprocedural examination (principal); D48.5 Neoplasm of uncertain behavior of skin
CPT/HCPCS: 93005

== ENCOUNTER → 2021-02-11 | Outpatient (CLI) | payer MEDICARE | LOC: LABNPT 06:18 | PROVIDERS: ATTEND Ophthalmology | DX: Z20.822 Contact with and (suspected) exposure to COVID-19 (principal) | CPT/HCPCS: 87635 ==

== ENCOUNTER 2021-04-02 12:57 | Outpatient (CLI) | payer MEDICARE | END 2021-04-02 14:15 | disposition home or self-care (01) | LOC: SLEEP 12:57 | PROVIDERS: ATTEND Internal Medicine Critical Care Medicine | DX: G47.33 Obstructive sleep apnea (adult) (pediatric) (principal) | CPT/HCPCS: G0399 ==

== ENCOUNTER 2021-05-24 10:24 | Outpatient (CLI) | payer MEDICARE ==
[2021-05-24 10:40] VITALS: BP 112/66
[2021-05-24] MEDS ORDERED: DENOSUMAB 60 MG/1 ML (PROLIA) SQ SCH (11:00)
== END 2021-05-24 10:50 ==
LOC: SDC 10:24
PROVIDERS: ATTEND Family Medicine
DX: M81.0 Age-related osteoporosis without current pathological fracture (principal)
CPT/HCPCS: 96372

== ENCOUNTER → 2021-08-22 | Outpatient (CLI) | payer MEDICARE ==
--- NOTE | 2021-08-22 16:43 | Diagnostic Imaging Report ---
INDICATION: Pain in the upper abdomen just under the left breast. EXAMINATION: Sonographic interrogation of the area of pain on the left was performed. FINDINGS: No sonographic abnormality is detected. No solid or cystic mass is detected. IMPRESSION: No sonographic abnormality is detected. Dictated by: Dictated on workstation # [id number]
--- NOTE | 2021-08-22 17:03 | Diagnostic Imaging Report ---
INDICATION: Pain along the inferior and lateral aspect of left breast and inferior to the left breast. COMPARISON: Correlation is made with prior mammograms from 09/27/2019 and 03/05/2017. EXAMINATION: 2D and 3D bilateral diagnostic mammography was performed with CAD. The current study was also evaluated with a Computer Aided Detection (CAD) system. FINDINGS: Scattered fibroglandular densities are noted, bilaterally. There are benign parenchymal and vascular calcific patient, bilaterally. Axillae are unremarkable. No mass or malignant-appearing microcalcifications are seen. IMPRESSION: No mammographic features suspicious for malignancy are identified. ACR BI-RADS Category 2: Benign findings. Result letter will be mailed to the patient. Note: At least 10% of breast cancer is not imaged by mammography. Dictated by: Dictated on workstation # [id number]
--- NOTE | 2021-08-22 17:17 | Diagnostic Imaging Report ---
INDICATION: Left rib pain COMPARISON: None. FINDINGS: 3 views of the left ribs demonstrate no fracture or osseous lesion. There is no pneumothorax or effusion. IMPRESSION: No rib injury identified. Dictated by: Dictated on workstation # [id number]
== END ==
LOC: RAD 13:30
PROVIDERS: ATTEND Family Medicine
DX: N64.4 Mastodynia (principal); R10.12 Left upper quadrant pain; R07.81 Pleurodynia
CPT/HCPCS: 71100; 76999; 77066; G0279; 77062

== ENCOUNTER → 2021-09-17 | Outpatient (CLI) | payer MEDICARE | LOC: CARD 12:00 | PROVIDERS: ATTEND Physician Assistant | DX: I08.3 Combined rheumatic disorders of mitral, aortic and tricuspid valves (principal); I11.9 Hypertensive heart disease without heart failure | CPT/HCPCS: 93306 ==

== ENCOUNTER 2021-09-19 12:35 | Emergency (ER) | payer MEDICARE ==
[~2021-09-19] VITALS: Ht 165 cm; Wt 91.0 kg
--- OUTSIDE RECORDS SUMMARY | 2021-09-19 12:38 | XMS REPORT | Clinical Summary ---
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
--- OUTSIDE RECORDS SUMMARY | 2021-09-19 12:38 | XMS REPORT | Clinical Summary ---
Author Author [facility] Organization [facility] Address Unknown Phone Unavailable Care Team Providers Care Frame Wirer Name Role Phone Jeanie Black MD PCP Negra Rosario MD [address] Source Comments Some departments are not documenting in the electronic medical record. If you d o not see the information that you expected, contact Release of Information in [facility] Information Management department at [phone] for further assistan ce in locating additional records.[facility] Allergies Comments Active Allergy Reactions Severity Noted Date Morphine UNKNOWN Low 08/13/2020 Amlodipine EDEMA Medium 08/13/2020 Medications End Date Status Medication Sig Dispensed Refills Start Date Active warfarin (COUMADIN) 2 mg Take 2 mg by 0 tablet mouth daily. Thursday & Thursday only Active warfarin (COUMADIN) 4 mg Take 4 mg by 0 tablet mouth daily. Thursday, Thursday, Thursday, and Thursday Active acetaminophen (TYLENOL) Take 500 mg 0 500 mg tablet by mouth every 6 hours as needed for Pain. Max of 4,000 mg of acetaminophen in 24 hours. Active aspirin EC 81 mg tablet Take 81 mg by 0 mouth daily. Take with food. Active carvediloL (COREG) 25 mg Take 25 mg by 0 tablet mouth twice daily. Take with food. Active furosemide (LASIX) 40 mg Take 40 mg by 0 tablet mouth every morning. Active isosorbide mononitrate SR Take 30 mg by 0 (IMDUR) 30 mg tablet mouth every morning. Active levothyroxine (SYNTHROID) Take 50 mcg 0 50 mcg tablet by mouth daily 30 minutes before breakfast. Active losartan (COZAAR) 100 mg Take 100 mg 0 tablet by mouth daily. Active potassium chloride Take 10 mEq 0 (MICRO-K) 10 mEq capsule by mouth daily. Take with a meal and a full glass of water. Active pravastatin (PRAVACHOL) Take 40 mg by 0 40 mg tablet mouth at bedtime daily. Active spironolactone Take one 90 tablet 3 (ALDACTONE) 25 mg tablet tablet by 0 mouth daily. Take with food. Active amLODIPine (NORVASC) 5 mg Take 5 mg by 0 tablet mouth daily. Active Problems Problem Noted Date Pulmonary hypertension 09/27/2020 Chronic diastolic heart failure 08/20/2020 Pacemaker 11/23/2013 Overview: Formatting of this note might be differ ent from the original. Medtronic Mitral regurgitation Permanent atrial fibrillation Carotid artery disease CAD (coronary artery disease) Hypothyroidism Nonrheumatic tricuspid valve regurgitat ion Sleep apnea SOB (shortness of breath) Stroke Surgical History Surgery Date Site/Laterality Comments KNEE REPLACEMENT Bilateral TONSILLECTOMY HYSTERECTOMY ADENOIDECTOMY HAND SURGERY Right Medical History Medical History Date Comments Mitral regurgitation Arthritis Pacemaker 2013 Medtronic CAD (coronary artery disease) Osteoarthritis Carotid artery disease (HCC) SOB (shortness of breath) Distal radius fracture Hyperlipidemia Hypothyroidism Obesity A-fib (HCC) Renal artery stenosis (HCC) Sleep apnea Right wrist tendonitis Moderate tricuspid regurgitation Skin cancer Stroke (HCC) Social History Date Tobacco Use Types Packs/Day Years Used Never Smoker Smokeless Tobacco: Never Used Comments Alcohol Use Standard Drinks/Week drinks wine on occasion Yes 0 (1 standard drink = 0.6 o z pure alcohol) Alcohol Habits Answer Date Recorded How often do you have a drink containing alcohol? Not aske d 08/13/2020 How many drinks containing alcohol do you have on 1 or 2 08/13/2020 a typical day when you are drinking? How often do you have six or more drinks on one Monthly 08/13/2020 occasion? Comment: drinks wine on occasion 08/20/2020 Sex Assigned at Date Recorded Female 08/21/2020 12:29 PM CDT Last Filed Vital Signs Reading Time Taken Comments Vital Sign 124/61 09/03/2020 4:15 PM CDT Blood Pressure 61 09/03/2020 4:15 PM CDT Pulse 36.3 C (97.4 F) 09/03/2020 4:15 PM CDT Temperature - - Respiratory Rate 98% 09/03/2020 4:15 PM CDT Oxygen Saturation - - Inhaled Oxygen Concentration 88.8 kg (195 lb 12.3 oz) 09/03/2020 9:17 AM CDT Weight 165.1 cm (5' 5") 09/03/2020 9:17 AM CDT Height 32.58 09/03/2020 9:17 AM CDT Body Mass Index Plan of Treatment Health Maintenance Due Date Last Done Comments MEDICARE ANNUAL WELLNESS 1935 VISIT PNEUMONIA (PPSV23) 1941 VACCINE (1 of 2 - PPSV23) DTAP/TDAP VACCINES (1 - 1953 Tdap) PHYSICAL (COMPREHENSIVE) 1953 EXAM SHINGLES RECOMBINANT 1985 VACCINE (1 of 2) OSTEOPOROSIS 2000 SCREENING/MONITORING INFLUENZA VACCINE 06/23/2021 07/06/2020, 07/02/2019 Results Not on filefrom Last 3 Months Insurance Type Payer Benefit Subscriber ID Effective Phone Address Plan / Dates Group Medicare MEDICARE MEDICARE [id number] 1999-P PART A AND resent B PPO [facility] [id number] 2019-P SUPPLEMENT resent [id number] Advance Directives 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 necessary based on Dx
--- OUTSIDE RECORDS SUMMARY | 2021-09-19 12:39 | XMS REPORT | CCD ---
Author Author Tricia Black D.O. Organization [facility] Address [address] [place] [address] Phone Care Team Providers [employer] Name Role Phone PP Unavailable CCM Unavailable Summary Purpose Interface Exchange Insurance Providers Payer name Policy type / Coverage type Covered libertarian ID Effective Begin Date Effective End Date WPS MEDICARE PART B [place] Medicare Part B [id number] Unknown Unknown AARP Medicare Part B [id number] Unknown Unknown Family history Grandmother Diagnosis Age [...] Unknown Retired 03/08/[address]: 388820572 Has never smoked or chewed tobacco 03/08/[address]: 057610 Currently drinks alcohol 03/08 Has the patient [...] Condition Codes Effective Dates Condition Status Chronic atrial fibrillation ICD-10: I48.20 ICD-9: 427.31 03/20/2020 Active FLU VACCINE ICD-10: Z23 ICD-9: V04.81 08/23/2021 Active Long-term (current) use of anticoagulants, INR goal 2. 0-3.0 ICD-10: Z79.01 ICD-9: V58.61 09/08/2019 Active Breast pain, left ICD-10: N64.4 ICD-9: 611.71 08/20/2021 Active Left breast lump ICD-10: N63.20 ICD-9: 611.72 08/20/2021 Active Anemia, unspecified ICD-10: D64.9 ICD-9: 285.9 06/14/2019 Active Essential (primary) hypertension ICD-10: I10 ICD-9: 401.9 03/08/2019 Active Chronic congestive heart failure with left ventricular diastolic dysfunction ICD-10: I50.32 ICD-9: 428.32 09/26/2020 Active Obstructive sleep apnea syndrome ICD-10: G47.33 ICD-9: 327.23 05/16/2021 Active Severe obesity (BMI 35.0-39.9) with comorbidity ICD-10 : E66.01 ICD-9: 278.01 02/19/2021 Active Hypothyroidism, unspecified ICD-10: E03.9 ICD-9: 244.9 03/08/2019 Active Cheilitis ICD-10: K13.0 ICD-9: 528.5 01/16/2021 Active Pulmonary hypertension ICD-10: I27.20 ICD-9: 416.8 09/26/2020 Active Mixed hyperlipidemia ICD-10: E78.2 ICD-9: 272.4 03/08/2019 Active Encounter for medication review and counseling ICD-10: Z71.89 ICD-9: V65.49 02/19/2021 Active Hypotension ICD-10: I95.9 ICD-9: 458.9 11/12/2020 Active Dizziness ICD-10: R42 ICD-9: 780.4 10/12/2020 Active Thoracic back pain ICD-10: M54.6 ICD-9: 724.1 10/12/2020 Active Encounter for general adult medical examination withou t abnormal findings ICD- 10: Z00.00 ICD-9: V70.9 09/20/2019 Active Chronic airway obstruction, not elsewhere classified I CD-10: J44.9 ICD-9: 496 11/03/2019 Active Dyspnea ICD-10: R06.00 ICD-9: 786.09 05/23/2020 Active Left hip pain ICD-10: M25.552 ICD-9: 719.45 05/23/2020 Active History of recent fall ICD-10: Z91.81 ICD-9: V15.88 12/15/2019 Active Head contusion ICD-10: S00.93XA ICD-9: 920 11/03/2019 Active Post concussion syndrome ICD-10: F07.81 ICD-9: 310.2 11/03/2019 Active Ecchymosis of left eye ICD-10: S05.12XA ICD-9: 921.0 10/31/2019 Active Fall as cause of accidental injury at home as place of occurrence ICD-10: W19.XXXA ICD-9: E888.9 10/31/2019 Active Headache ICD-10: R51 ICD-9: 784.0 10/31/2019 Active Pain in right arm ICD-10: M79.601 ICD-9: 729.5 09/08/2019 Active Radiculopathy of arm ICD-10: M54.10 ICD-9: 723.4 10/11/2019 Active Bitten by dog, sequela ICD-10: W54.0XXS ICD-9: 906.1 05/02/2019 Active Other forms of dyspnea ICD-10: R06.09 ICD-9: 786.09 03/08/2019 Active Sinusitis ICD-10: J32.9 ICD-9: 473.9 09/08/2019 Active Chronic atrial fibrillation ICD-10: I48.2 ICD-9: 427.31 03/08/2019 Active Encounter for therapeutic drug level monitoring ICD-10 : Z51.81 ICD-9: V58.83 03/08/2019 Active 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-10: L90.5 ICD-9: 709.2 06/14/2019 Active Generalized anxiety disorder ICD-10: F41.1 ICD-9: 300.02 05/13/2019 Active Muscle weakness (generalized) ICD-10: M62.81 ICD-9: 728.87 05/13/2019 Active Other fatigue ICD-10: R53.83 ICD-9: 780.79 05/13/2019 Active Abrasion of left upper arm, sequela ICD-10: S40.812S ICD-9: 906.2 05/02/2019 Active Abrasion of right upper arm, sequela ICD-10: S40.811S ICD-9: 906.2 05/02/2019 Active Pain in right wrist ICD-10: M25.531 ICD-9: 719.43 05/02/2019 Active Hypertension Unknown 03/08/2019 Active Abnormal findings on diagnostic imaging of heart and c oronary circulation ICD- 10: R93.1 ICD-9: 794.39 03/08/2019 Active Medications Medication Codes Instructions Start Date Stop Date Status Fill Instructions Coumadin 2 mg tablet RxNorm: 088440 1 Tablet(s) Oral , , Thu and Thursday08/26/2021 11/23/2021 Active isosorbide mononitrate 10 mg tablet RxNorm: 897451 Take 1 Tablet(s) Oral two times a day 08/08/2021 No Stop Date Active losartan 100 mg tablet RxNorm: 688101 Take 1 Tablet(s) Oral QD 07/2411/02/2021 Active amoxicillin 500 mg capsule RxNorm: 271804 4 Capsule(s) Oral QD 1hr prior to dental cleaning 08/05/2021 08/05/2021 Inactive levothyroxine 50 mcg tablet RxNorm: 919013 TAKE 1 TABLE T BY MOUTH EVERY DAY. RECHECK LABS IN 2 MONTHS 08/04/2021 10/02/2021 Active potassium chloride ER 10 mEq tablet,extended release RxNorm: 343462 TAKE 1 TABLET BY MOUTH EVERY DAY 07/14/2021 10/11/2021 Active spironolactone 25 mg tablet RxNorm: 131799 1/2 Tablet(s) Oral QD No Stop Date Active isosorbide mononitrate 10 mg tablet RxNorm: 524638 Take 1 Tablet(s) Oral two times a day 05/16/2021 05/16/2021 Inactive isosorbide mononitrate ER 30 mg tablet,extended release 24 h r RxNorm: 062544 TABLET(S) 1 TABLET(S) PO NEEDED Tablet(s) Oral 05/16/2021 08/07/2021 Inactive Patient requests 90 days supply furosemide 40 mg tablet RxNorm: 320189 TAKE 1 TABLET BY MOUTH E VERY MORNING 05/07/2021 08/04/2021 Inactive isosorbide mononitrate 10 mg tablet RxNorm: 224940 Take 1 Tablet(s) Oral two times a day 04/26/2021 05/15/2021 Inactive isosorbide mononitrate 10 mg tablet RxNorm: 342907 Take 1 Tablet(s) Oral two times a day 04/25/2021 04/25/2021 Inactive potassium chloride ER 10 mEq tablet,extended release RxNorm: 457163 TAKE 1 TABLET BY MOUTH EVERY DAY 04/19/2021 04/19/2021 Inactive Coumadin 4 mg tablet RxNorm: 799211 1 Tablet(s) Oral Thursday04/11/2021 07/10/2021 Inactive Coumadin 2 mg tablet RxNorm: 198245 1 Tablet(s) Oral on Thursday and Thursday04/11/2021 04/11/2021 Inactive carvedilol 25 mg tablet RxNorm: 720097 1 Tablet(s) Oral two antolin es a day 04/03/2021 09/29/2021 Active Coumadin 2 mg tablet RxNorm: 436663 TAKE 1 TABLET BY [facility] ON THURSDAY AND Thursday03/26/2021 04/10/2021 Inactive Coumadin 4 mg tablet RxNorm: 759053 1 Tablet(s) Oral QD 02/26/2021 Inactive levothyroxine 50 mcg tablet RxNorm: 744521 1 Tablet(s) Oral QD Recheck labs in 2 months 02/26/2021 02/26/2021 Inactive Recheck labs in 2 months levothyroxine 50 mcg tablet RxNorm: 845654 1 Tablet(s) Oral QD Recheck labs in 2 months 02/26/2021 02/25/2021 Inactive Recheck labs in 2 months losartan 100 mg tablet RxNorm: 515223 TAKE 1 TABLET BY MOUTH 02/22/2021 08/20/2021 Inactive spironolactone 25 mg tablet RxNorm: 035188 1 Tablet(s) Oral QD 01/2303/04/2021 Inactive isosorbide mononitrate 10 mg tablet RxNorm: 072257 1 Ta blet(s) Oral two times a day 02/19/2021 02/25/2021 Inactive famotidine 20 mg tablet RxNorm: 336897 1 Tablet(s) Oral QD 02/20/2003/04/2021 Inactive levothyroxine 25 mcg tablet RxNorm: 158506 1 Tablet(s) Oral QD 07/202102/25/2021 Inactive atorvastatin 40 mg tablet RxNorm: 738217 1 Tablet(s) Or al QPM replaces pravastatin 01/29/2021 07/27/2021 Inactive furosemide 40 mg tablet RxNorm: 091000 TAKE 1 TABLET BY MOUTH E VERY MORNING 01/28/2021 01/28/2021 Inactive prednisone 10 mg tablet RxNorm: 629416 1 Tablet(s) Oral two antolin es a day 01/16/2021 01/19/2021 Inactive atorvastatin 40 mg tablet RxNorm: 068994 1 Tablet(s) Or al QPM replaces pravastatin 12/31/2020 01/28/2021 Inactive carvedilol 25 mg tablet RxNorm: 606674 TAKE 1 TABLET BY MOUTH T WICE DAILY 12/31/2020 04/02/2021 Inactive potassium chloride ER 10 mEq tablet,extended release RxNorm: 455901 TAKE 1 TABLET BY MOUTH EVERY DAY 12/31/2020 12/31/2020 Inactive losartan 100 mg tablet RxNorm: 597111 1 Tablet(s) Oral QD 12/03/2020 02/21/2021 Inactive Coumadin 4 mg tablet RxNorm: 943080 TAKE 1 TABLET [address] [facility] THURSDAY THROUGH Thursday11/30/2020 02/25/2021 Inactive levothyroxine 25 mcg tablet RxNorm: 509918 1 Tablet(s) Oral QD 10/2401/28/2021 Inactive famotidine 20 mg tablet RxNorm: 864637 1 Tablet(s) Oral QD 11/19/20 20 01/15/2021 Inactive famotidine 20 mg tablet RxNorm: 623942 1 Tablet(s) Oral QD 11/19/20 20 11/18/2020 Inactive levothyroxine 50 mcg tablet RxNorm: 727518 TAKE 1 TABLET BY ENE TH EVERY DAY 11/06/2020 01/29/2021 Inactive furosemide 40 mg tablet RxNorm: 295703 TAKE 1 TABLET BY MOUTH E VERY MORNING 11/05/2020 01/27/2021 Inactive atorvastatin 40 mg tablet RxNorm: 784442 1 Tablet(s) Or al QPM replaces pravastatin 10/22/2020 12/30/2020 Inactive atorvastatin 40 mg tablet RxNorm: 527197 1 Tablet(s) Or al QPM replaces pravastatin 10/22/2020 10/21/2020 Inactive spironolactone 25 mg tablet RxNorm: 870866 1 Tablet(s) Oral QAM 01/15/2021 Inactive carvedilol 25 mg tablet RxNorm: 817217 TAKE 1 TABLET BY MOUTH T WICE DAILY 10/04/2020 12/30/2020 Inactive pravastatin 40 mg tablet RxNorm: 154757 TAKE 1 TABLET BY MOUTH EVERY DAY 10/04/2020 12/31/2020 Inactive potassium chloride ER 10 mEq tablet,extended release RxNorm: 776678 TAKE 1 TABLET BY MOUTH EVERY DAY 10/04/2020 12/30/2020 Inactive isosorbide mononitrate ER 30 mg tablet,extended release 24 h r RxNorm: 949219 TABLET(S) 1 TABLET(S) PO NEEDED Oral 10/04/2020 02/18/2021 Inactive Patient requests 90 days supply furosemide 40 mg tablet RxNorm: 407872 TAKE 1 TABLET BY MOUTH E VERY MORNING 10/01/2020 11/04/2020 Inactive losartan 100 mg tablet RxNorm: 962927 TAKE 1 TABLET BY MOUTH 09/19/2020 12/02/2020 Inactive amlodipine 5 mg tablet RxNorm: 936954 1 Tablet(s) Oral QD 08/27/2020 11/11/2020 Inactive spironolactone 25 mg tablet RxNorm: 478363 1 Tablet(s) Oral QAM 03/202010/21/2020 Inactive levothyroxine 50 mcg tablet RxNorm: 977722 TAKE 1 TABLET BY ENE TH EVERY DAY 08/07/2020 11/04/2020 Inactive levothyroxine 50 mcg tablet RxNorm: 854542 TAKE 1 TABLET BY ENE TH EVERY DAY 08/06/2020 08/06/2020 Inactive amoxicillin 500 mg capsule RxNorm: 179097 4 Capsule(s) Oral QD 1hr prior to dental cleaning 07/31/2020 07/30/2020 Inactive amoxicillin 500 mg capsule RxNorm: 902551 4 Capsule(s) Oral QD 1hr prior to dental cleaning 07/31/2020 07/31/2020 Inactive potassium chloride ER 10 mEq tablet,extended release RxNorm: 916349 TAKE 1 TABLET BY MOUTH EVERY DAY 07/23/2020 10/03/2020 Inactive pravastatin 40 mg tablet RxNorm: 501108 TAKE 1 TABLET BY MOUTH EVERY DAY 07/23/2020 10/03/2020 Inactive carvedilol 25 mg tablet RxNorm: 727338 TAKE 1 TABLET BY MOUTH T WICE DAILY 07/23/2020 10/03/2020 Inactive losartan 100 mg tablet RxNorm: 987528 TAKE 1 TABLET BY MOUTH EV RANDI DAY 06/27/2020 09/18/2020 Inactive furosemide 40 mg tablet RxNorm: 347556 TAKE 1 TABLET BY MOUTH E MORNING 06/08/2020 09/30/2020 Inactive Coumadin 4 mg tablet RxNorm: 317231 1 Tablet(s) Oral Thursday thr thursday06/07/2020 11/29/2020 Inactive Coumadin 2 mg tablet RxNorm: 643838 1 Tablet(s) Oral on and Thursday03/20/2020 03/19/2020 Inactive Coumadin 4 mg tablet RxNorm: 457876 1 Tablet(s) Oral Thursday thr thursday03/20/2020 06/06/2020 Inactive losartan 100 mg tablet RxNorm: 106206 TAKE 1 TABLET BY MOUTH EV RANDI DAY 03/20/2020 06/26/2020 Inactive Coumadin 2 mg tablet RxNorm: 076958 1 Tablet(s) Oral on and Thursday03/20/2020 02/25/2021 Inactive furosemide 40 mg tablet RxNorm: 142043 1 Tablet(s) Oral QA 020 06/07/2020 Inactive pravastatin 40 mg tablet RxNorm: 775018 TAKE 1 TABLET BY MOUTH EVERY DAY 02/07/2020 07/22/2020 Inactive losartan 100 mg tablet RxNorm: 600497 TAKE 1 TABLET BY MOUTH EV RANDI DAY 02/01/2020 03/19/2020 Inactive losartan 100 mg tablet RxNorm: 860351 TAKE 1 TABLET BY MOUTH EV RANDI DAY 01/17/2020 01/31/2020 Inactive Coumadin 2 mg tablet RxNorm: 151714 1 Tablet(s) Oral on and Thursday12/15/2019 12/15/2019 Inactive furosemide 40 mg tablet RxNorm: 062223 TAKE 1 TABLET BY MOUTH E VERY MORNING 12/14/2019 03/12/2020 Inactive pravastatin 40 mg tablet RxNorm: 706270 TAKE 1 TABLET BY MOUTH EVERY DAY 11/27/2019 02/06/2020 Inactive losartan 100 mg tablet RxNorm: 967744 1 Tablet(s) Oral QD 11/10/2019 01/16/2020 Inactive isosorbide mononitrate ER 30 mg tablet,extended release 24 h r RxNorm: 578702 TABLET(S) 1 TABLET(S) PO NEEDED 11/10/2019 05/08/2020 Inactive Patient requests 90 days supply carvedilol 25 mg tablet RxNorm: 753511 1 Tablet(s) Oral two antolin es a day 11/10/2019 05/08/2020 Inactive Coumadin 2 mg tablet RxNorm: 046573 1 Tablet(s) Oral on and Thursday11/10/2019 12/14/2019 Inactive losartan 100 mg tablet RxNorm: 147378 1 Tablet(s) Oral QD 11/10/2019 11/09/2019 Inactive levothyroxine 50 mcg tablet RxNorm: 868372 1 Tablet(s) Oral QD 10/2310/21/2020 Inactive Coumadin 4 mg tablet RxNorm: 666858 1 Tablet(s) Oral Thursday thr thursday11/10/2019 11/10/2019 Inactive losartan 50 mg tablet RxNorm: 492310 2 Tablet(s) Oral QD 11/01/2019 1 01/10/2019 Inactive potassium chloride ER 10 mEq capsule,extended release RxNorm : 724207 1 Capsule(s) Oral QD 10/26/2019 12/14/2019 Inactive potassium chloride ER 10 mEq tablet,extended release RxNorm: 523957 1 TABLET(S) ORAL QD 10/22/2019 04/18/2020 Inactive Replaces PA on 1 0MEQ Capsules Aspir-81 mg tablet,delayed release RxNorm: 695693 1 Tablet(s) O ral QD 10/11/2019 No Stop Date Active cyclobenzaprine 5 mg tablet RxNorm: 113270 1 Tablet(s) Oral two times a day as needed for muscle spasm 10/11/2019 03/19/2020 Inactive Coumadin 4 mg tablet RxNorm: 580308 1 Tablet(s) Oral Mo through Thursday and 1/2 tablet (2mg) on Sat/Sun 10/11/2019 11/09/2019 Inactive potassium chloride ER 10 mEq tablet,extended release RxNorm: 135701 1 Tablet(s) Oral QD 09/22/2019 09/21/2019 Inactive Replaces PA on 1 0MEQ Capsules potassium chloride ER 10 mEq tablet,extended release RxNorm: 002318 1 Tablet(s) Oral QD 09/22/2019 10/10/2019 Inactive Replaces PA on 1 0MEQ Capsules potassium chloride ER 10 mEq capsule,extended release RxNorm : 184837 1 Capsule(s) Oral QD 09/21/2019 09/21/2019 Inactive carvedilol 25 mg tablet RxNorm: 042155 1 Tablet(s) Oral two antolin es a day 08/23/2019 11/09/2019 Inactive isosorbide mononitrate ER 30 mg tablet,extended release 24 h r RxNorm: 123389 TABLET(S) 1 TABLET(S) PO NEEDED 08/22/2019 10/04/2020 Inactive Patient requests 90 days supply isosorbide mononitrate ER 30 mg tablet,extended release 24 h r RxNorm: 041068 Tablet(s) 1 TABLET(S) PO NEEDED 08/16/2019 08/21/2019 Inactive Patient requests 90 days supply levothyroxine 50 mcg tablet RxNorm: 304979 1 Tablet(s) PO QD 201811/09/2019 Inactive isosorbide mononitrate ER 30 mg tablet,extended release 24 h r RxNorm: 206423 Tablet(s) 1 TABLET(S) PO NEEDED 06/27/2019 08/15/2019 Inactive Patient requests 90 days supply isosorbide mononitrate ER 30 mg tablet,extended release 24 h r RxNorm: 217530 1 Tablet(s) PO QD as needed 06/27/2019 06/27/2019 Inactive Neris ent requests 90 days supply carvedilol 25 mg tablet RxNorm: 898199 1 TABLET(S) PO BID 06/27/2019 08/22/2019 Inactive furosemide 40 mg tablet RxNorm: 651284 1 Tablet(s) PO QAM 06/21/2019 12/13/2019 Inactive carvedilol 25 mg tablet RxNorm: 341203 1 Tablet(s) PO BID 05/13/2019 06/26/2019 Inactive Xanax 0.25 mg tablet RxNorm: 552450 1/2 Tablet(s) PO Q6H as needed 05/13/2019 09/07/2019 Inactive levothyroxine 50 mcg tablet RxNorm: 713765 1 Tablet(s) PO QD 201808/07/2019 Inactive losartan 50 mg tablet RxNorm: 653218 1 Tablet(s) PO QD 04/26/2019 Inactive losartan 50 mg tablet RxNorm: 946427 1 Tablet(s) PO QD 04/20/201901/2019 Inactive pravastatin 40 mg tablet RxNorm: 481430 1 Tablet(s) PO QD 04/07/2019 06/05/2019 Inactive isosorbide mononitrate ER 30 mg tablet,extended release 24 h r RxNorm: 809039 1 Tablet(s) PO as needed 04/07/2019 04/06/2019 Inactive isosorbide mononitrate ER 30 mg tablet,extended release 24 h r RxNorm: 517266 1 TABLET(S) PO NEEDED 04/07/2019 06/26/2019 Inactive Patient requests 90 days supply losartan 50 mg tablet RxNorm: 888638 1 Tablet(s) PO QD 03/22/2019 Inactive Prolia subcutaneous RxNorm: 390415 subcutaneous 02/19/2021 A ctive carvedilol 25 mg tablet RxNorm: 195367 1 Tablet(s) PO BID 05/13/2019 05/12/2019 Inactive losartan 50 mg tablet RxNorm: 539284 1 Tablet(s) PO QD 03/22/2019 Inactive Ventolin HFA 90 mcg/actuation aerosol inhaler RxNorm: 771393 1-2 Puff(s) INH as needed 09/08/2019 09/07/2019 Inactive furosemide 40 mg tablet RxNorm: 474695 1 Tablet(s) PO QAM 06/21/2019 06/20/2019 Inactive pravastatin 40 mg tablet RxNorm: 589050 1 Tablet(s) PO QD 04/07/2019 04/06/2019 Inactive Coumadin 2 mg tablet RxNorm: 211496 1 Tablet(s) PO Mon, Fri, Sat and Sun then 2 tablets (4mg) on , Thu and 10/11/2019 10/10/2019 Inactive isosorbide mononitrate ER 30 mg tablet,extended release 24 h r RxNorm: 878273 Tablet(s) PO as needed 04/07/2019 04/06/2019 Inactive Women's Multivitamin 18 mg iron-400 mcg-500 mg tablet RxNorm : 1 Tablet(s) PO QD 09/08/2019 09/07/2019 Inactive Vitamin D3 1000 units Capsule RxNorm: 3 Capsule(s) PO QD 9 09/07/2019 Inactive vitamin B complex capsule RxNorm: 1 Capsule(s) PO QD 09/08/2019 Inactive potassium chloride ER 10 mEq capsule,extended release RxNorm : 612639 1 Capsule(s) PO QD 09/21/2019 09/20/2019 Inactive levothyroxine 50 mcg tablet RxNorm: 605729 1 Tablet(s) PO QD 201804/25/2019 Inactive Medication Administered No Medication Administered data Immunizations Vaccine Codes Date Status Influenza CVX: 135 08/23/2021 Complete Influenza CVX: 135 07/06/2020 Pneumovax CVX: 33 02/03/2020 Influenza CVX: 135 07/02/2019 Results Observation Observation Code Item Item Code Result Date S ervice Location PT [id number] PT 35.6 Seconds 08/23/2021 Unknow n PT [id number] INR 3.5 08/23/2021 Unknown PT [id number] PT 28.3 Seconds 07/19/2021 Unknow n PT [id number] INR 2.6 07/19/2021 Unknown COMPREHENSIVE METABOLIC 55321 AST 20 U/L 2020 Unknown COMPREHENSIVE METABOLIC 78992 ALT 16 U/L 2020 Unknown COMPREHENSIVE METABOLIC 50915 BUN 35 mg/dL 2020 Unknown COMPREHENSIVE METABOLIC 83913 ALBUMIN 4.1 g/dL 2020 Unknown COMPREHENSIVE METABOLIC 64106 CHLORIDE 105 mmol/L 06/20 Unknown COMPREHENSIVE METABOLIC 30398 Bili Total 1.1 mg/dL 07/29 /2021 Unknown COMPREHENSIVE METABOLIC 26219 ALK PHOS 103 U/L 2020 Unknown COMPREHENSIVE METABOLIC 44918 SODIUM 139 mmol/L 06/20 Unknown COMPREHENSIVE METABOLIC 61792 CREATININE 0.99 mg/dL 05/24 Unknown COMPREHENSIVE METABOLIC 72244 CALCIUM 8.8 mg/dL 2020 Unknown COMPREHENSIVE METABOLIC 26556 POTASSIUM 4.7 mmol/L 06/20 Unknown COMPREHENSIVE METABOLIC 85554 Total Protein 6.2 g/dL Unknown COMPREHENSIVE METABOLIC 50834 Glucose 83 mg/dL 2020 Unknown COMPREHENSIVE METABOLIC 31021 Bicarbonate 27 mmol/L 05/24 Unknown COMPREHENSIVE METABOLIC 52197 AGAP 7 mmol/L 2020 Unknown COMPLETE BLOOD COUNT [id number] WBC 4.5 10e9/L 06/20/20 21 Unknown COMPLETE BLOOD COUNT [id number] RBC 3.99 10e12/L 2020 Unknown COMPLETE BLOOD COUNT [id number] HEMOGLOBIN 11.8 g/dL 06/20/20 21 Unknown COMPLETE BLOOD COUNT [id number] HEMATOCRIT 36.6 % 06/20/20 21 Unknown COMPLETE BLOOD COUNT [id number] MCV 91.7 fL 1 Unknown COMPLETE BLOOD COUNT [id number] MCH 29.6 pg 1 Unknown COMPLETE BLOOD COUNT [id number] MCHC 32.2 g/dL 1 Unknown COMPLETE BLOOD COUNT [id number] PLATELET COUNT 180 10e9/L Unknown COMPLETE BLOOD COUNT 4611021 Mean Plt Volume 11.1 fL Unknown COMPLETE BLOOD COUNT 4003434 Neut Auto 64.7 % 1 Unknown COMPLETE BLOOD COUNT [id number] Lymph Auto 19.6 % 06/20/20 21 Unknown COMPLETE BLOOD COUNT [id number] [place] Auto 13.5 % 1 Unknown COMPLETE BLOOD COUNT 8877100 RDW 15.1 % 1 Unknown COMPLETE BLOOD COUNT [id number] Eos Auto 1.8 % 1 Unknown COMPLETE BLOOD COUNT 3804703 Baso Auto 0.4 % 1 Unknown COMPLETE BLOOD COUNT [id number] Neutrophil Abs 2.91 10e9/L Unknown COMPLETE BLOOD COUNT [id number] Lymphocyte Abs 0.88 10e9/L Unknown COMPLETE BLOOD COUNT [id number] Monocyte Abs 0.61 10e9/L 05/24 Unknown COMPLETE BLOOD COUNT [id number] Eosinophil Abs 0.08 10e9/L Unknown COMPLETE BLOOD COUNT 1539534 RDW-SD 49.5 fL Unknown COMPLETE BLOOD COUNT [id number] Basophil Abs 0.02 10e9/L 05/24 Unknown GFR CALC 3381755 GFR Non Afr Amr 53 mL/min 06/20/2021 Unk nown GFR CALC 2571402 GFR Afr Amr >60 mL/min 06/20/2021 Unknow n PT [id number] PT 27.4 Seconds 06/20/2021 Unknow n PT [id number] INR 2.5 06/20/2021 Unknown PT 6101944 PT 25.8 Seconds 05/21/2021 Unknow n PT [id number] INR 2.3 05/21/2021 Unknown FREE T4 69240 T4 Free 1.19 ng/dL 04/11/2021 Unknown PT [id number] PT 33.6 Seconds 04/11/2021 Unknow n PT [id number] INR 3.3 04/11/2021 Unknown THYROID STIMULATING HORMONE 76495 TSH 3.912 uIU/mL 04/11/2021 Unknown PT [id number] PT 33.1 Seconds 03/15/2021 Unknow n PT [id number] INR 3.2 03/15/2021 Unknown PT [id number] PT 24.6 Seconds 05/23/2020 Unknow n PT [id number] INR 2.2 05/23/2020 Unknown PT [id number] PT 31.4 Seconds 10/26/2019 Unknow n PT [id number] INR 2.9 10/26/2019 Unknown PT 1711268 PT 17.6 Seconds 10/11/2019 Unknow n PT 2793899 INR 1.4 10/11/2019 Unknown PT [id number] PT 23.7 Seconds 09/08/2019 Unknow n PT [id number] INR 2.0 09/08/2019 Unknown PT [id number] PT 23.2 Seconds 07/29/2019 Unknow n PT [id number] INR 2.0 07/29/2019 Unknown PT [id number] PT 14.3 Seconds 07/18/2019 Unknow n PT [id number] INR 1.1 07/18/2019 [place] [address] Glucose 75 mg/dL 07/06 [place] [address] CREATININE 0.61 mg/dL [place] [address] BUN 15 mg/dL 07/06 [place] [address] SODIUM 142 mmol/L 06/23 [place] [address] POTASSIUM 4.0 mmol/L 06/23 [place] [address] CHLORIDE 106 mmol/L 06/23 [place] [address] Bicarbonate 28 mmol/[place] [address] AGAP 8 mmol/L 07/06 [place] [address] CALCIUM 9.3 mg/dL 07/06 Unknown PT [id number] PT 17.4 Seconds 07/06/2019 Unknow n PT [id number] INR 1.4 07/06/2019 Unknown GFR CALC 8515239 GFR Afr Amr >60 mL/min 07/06/2019 Unknow n GFR CALC 7817667 GFR Non Afr Amr >60 mL/min 07/06/2019 Un known COMPLETE BLOOD COUNT 8297640 WBC 4.7 10e9/L 07/06/20 19 Unknown COMPLETE BLOOD COUNT [id number] RBC 4.19 10e12/L 2018 Unknown COMPLETE BLOOD COUNT [id number] HEMOGLOBIN 12.6 g/dL 07/06/20 19 Unknown COMPLETE BLOOD COUNT 6512984 HEMATOCRIT 39.4 % 07/06/20 19 Unknown COMPLETE BLOOD COUNT [id number] MCV 94.0 fL 9 Unknown COMPLETE BLOOD COUNT 8724004 MCH 30.1 pg 9 Unknown COMPLETE BLOOD COUNT 3735990 MCHC 32.0 g/dL 9 Unknown COMPLETE BLOOD COUNT [id number] PLATELET COUNT 160 10e9/L Unknown COMPLETE BLOOD COUNT 4755987 Mean Plt Volume 11.0 fL Unknown COMPLETE BLOOD COUNT 4536027 Neut Auto 56.6 % 9 Unknown COMPLETE BLOOD COUNT 0320872 Lymph Auto 27.0 % 07/06/20 19 Unknown COMPLETE BLOOD COUNT [id number] [place] Auto 13.7 % 9 Unknown COMPLETE BLOOD COUNT [id number] RDW 14.6 % 9 Unknown COMPLETE BLOOD COUNT 5615047 Eos Auto 2.1 % 9 Unknown COMPLETE BLOOD COUNT 5244226 Baso Auto 0.6 % 9 Unknown COMPLETE BLOOD COUNT 6544030 Neutrophil Abs 2.66 10e9/L Unknown COMPLETE BLOOD COUNT 1572074 Lymphocyte Abs 1.27 10e9/L Unknown COMPLETE BLOOD COUNT [id number] Monocyte Abs 0.64 10e9/L 06/23 Unknown COMPLETE BLOOD COUNT 6041023 Eosinophil Abs 0.10 10e9/L Unknown COMPLETE BLOOD COUNT 5661835 RDW-SD 48.7 fL 9 Unknown COMPLETE BLOOD COUNT 1072733 Basophil Abs 0.03 10e9/L 06/23 Unknown COMPLETE BLOOD COUNT 1150183 WBC 4.6 10e9/L 06/14/20 19 Unknown COMPLETE BLOOD COUNT [id number] RBC 4.16 10e12/L 2018 Unknown COMPLETE BLOOD COUNT 1575925 HEMOGLOBIN 12.6 g/dL 06/14/20 19 Unknown COMPLETE BLOOD COUNT [id number] HEMATOCRIT 39.1 % 06/14/20 19 Unknown COMPLETE BLOOD COUNT [id number] MCV 94.0 fL 9 Unknown COMPLETE BLOOD COUNT [id number] MCH 30.3 pg 9 Unknown COMPLETE BLOOD COUNT [id number] MCHC 32.2 g/dL 9 Unknown COMPLETE BLOOD COUNT [id number] PLATELET COUNT 167 10e9/L Unknown COMPLETE BLOOD COUNT [id number] Mean Plt Volume 10.9 fL Unknown COMPLETE BLOOD COUNT [id number] Neut Auto 59.6 % 9 Unknown COMPLETE BLOOD COUNT [id number] Lymph Auto 24.1 % 06/14/20 19 Unknown COMPLETE BLOOD COUNT [id number] [place] Auto 14.0 % 9 Unknown COMPLETE BLOOD COUNT [id number] RDW 14.8 % 9 Unknown COMPLETE BLOOD COUNT [id number] Eos Auto 1.9 % 9 Unknown COMPLETE BLOOD COUNT [id number] Baso Auto 0.4 % 9 Unknown COMPLETE BLOOD COUNT [id number] Neutrophil Abs 2.74 10e9/L Unknown COMPLETE BLOOD COUNT [id number] Lymphocyte Abs 1.11 10e9/L Unknown COMPLETE BLOOD COUNT [id number] Monocyte Abs 0.64 10e9/L 05/24 Unknown COMPLETE BLOOD COUNT [id number] Eosinophil Abs 0.09 10e9/L Unknown COMPLETE BLOOD COUNT [id number] RDW-SD 49.3 fL 9 Unknown COMPLETE BLOOD COUNT [id number] Basophil Abs 0.02 10e9/L 05/24 Unknown PT [id number] PT 22.3 Seconds 06/14/2019 Unknow n PT [id number] INR 1.9 06/14/2019 Unknown COMPLETE BLOOD COUNT [id number] WBC 4.0 10e9/L 05/13/20 19 Unknown COMPLETE BLOOD COUNT [id number] RBC 3.82 10e12/L 2018 Unknown COMPLETE BLOOD COUNT [id number] HEMOGLOBIN 11.5 g/dL 05/13/20 19 Unknown COMPLETE BLOOD COUNT [id number] HEMATOCRIT 36.4 % 05/13/20 19 Unknown COMPLETE BLOOD COUNT [id number] MCV 95.3 fL 9 Unknown COMPLETE BLOOD COUNT [id number] MCH 30.1 pg 9 Unknown COMPLETE BLOOD COUNT [id number] MCHC 31.6 g/dL 9 Unknown COMPLETE BLOOD COUNT [id number] PLATELET COUNT 175 10e9/L Unknown COMPLETE BLOOD COUNT [id number] Mean Plt Volume 10.5 fL Unknown COMPLETE BLOOD COUNT [id number] Neut Auto 63.2 % 9 Unknown COMPLETE BLOOD COUNT [id number] Lymph Auto 22.0 % 05/13/20 19 Unknown COMPLETE BLOOD COUNT [id number] [place] Auto 12.1 % 9 Unknown COMPLETE BLOOD COUNT [id number] RDW 14.9 % 9 Unknown COMPLETE BLOOD COUNT [id number] Eos Auto 2.2 % 9 Unknown COMPLETE BLOOD COUNT [id number] Baso Auto 0.5 % 9 Unknown COMPLETE BLOOD COUNT [id number] Neutrophil Abs 2.53 10e9/L Unknown COMPLETE BLOOD COUNT [id number] Lymphocyte Abs 0.88 10e9/L Unknown COMPLETE BLOOD COUNT [id number] Monocyte Abs 0.48 10e9/L 04/24 Unknown COMPLETE BLOOD COUNT [id number] Eosinophil Abs 0.09 10e9/L Unknown COMPLETE BLOOD COUNT [id number] RDW-SD 49.6 fL 9 Unknown COMPLETE BLOOD COUNT [id number] Basophil Abs 0.02 10e9/L 04/24 Unknown COMPREHENSIVE METABOLIC 35051 AST 18 U/L 2018 Unknown COMPREHENSIVE METABOLIC 43573 ALT 14 U/L 2018 Unknown COMPREHENSIVE METABOLIC 11957 BUN 15 mg/dL 2018 Unknown COMPREHENSIVE METABOLIC 59142 ALBUMIN 4.0 g/dL 2018 Unknown COMPREHENSIVE METABOLIC 36992 CHLORIDE 108 mmol/L 05/13 Unknown COMPREHENSIVE METABOLIC 78028 Bili Total 0.9 mg/dL 05/13 Unknown COMPREHENSIVE METABOLIC 30998 ALK PHOS 84 U/L 2018 Unknown COMPREHENSIVE METABOLIC 04914 SODIUM 142 mmol/L 05/13 Unknown COMPREHENSIVE METABOLIC 98395 CREATININE 0.72 mg/dL 04/24 Unknown COMPREHENSIVE METABOLIC 84534 CALCIUM 8.9 mg/dL 2018 Unknown COMPREHENSIVE METABOLIC 23842 POTASSIUM 4.0 mmol/L 05/13 Unknown COMPREHENSIVE METABOLIC 30237 Total Protein 5.5 g/dL Unknown COMPREHENSIVE METABOLIC 37220 Glucose 95 mg/dL 2018 Unknown COMPREHENSIVE METABOLIC 78609 Bicarbonate 27 mmol/L 04/24 Unknown COMPREHENSIVE METABOLIC 79477 AGAP 7 mmol/L 2018 Unknown GFR CALC [id number] GFR Non Afr Amr >60 mL/min 05/13/2019 Un known GFR CALC [id number] GFR Afr Amr >60 mL/min 05/13/2019 Unknow n THYROID STIMULATING HORMONE 26229 TSH 2.669 uIU/mL 05/13/2019 Unknown FREE T4 22218 T4 Free 1.19 ng/dL 05/13/2019 Unknown PT [id number] PT 24.2 Seconds 05/06/2019 Unknow n PT [id number] INR 2.1 05/06/2019 Unknown PT [id number] PT 24.1 Seconds 03/08/2019 Unknow n PT [id number] INR 2.9 03/08/2019 Unknown Procedures Procedure Codes Date FLU VACC PRSV FREE INC ANTIG 65 AND OLDER CPT-4: 31997 08/23/2021 ROUTINE VENIPUNCTURE CPT-4: 42118 08/23/2021 PROTHROMBIN TIME CPT-4: 80208 08/23/2021 FLU VACC PRSV FREE INC ANTIG 65 AND OLDER CPT-4: 33321 08/23/2021 ADMIN INFLUENZA VIRUS VAC CPT-4: G0008 08/23/2021 ROUTINE VENIPUNCTURE CPT-4: 35777 07/19/2021 PROTHROMBIN TIME CPT-4: 05836 07/19/2021 ROUTINE VENIPUNCTURE CPT-4: 87673 06/20/2021 COMPREHEN METABOLIC PANEL CPT-4: 83327 06/20/2021 COMPLETE CBC W/AUTO DIFF WBC CPT-4: 10757 06/20/2021 PROTHROMBIN TIME CPT-4: 29671 06/20/2021 PT CPT-4: 2543380 05/16/2021 ROUTINE VENIPUNCTURE CPT-4: 03560 05/16/2021 ROUTINE VENIPUNCTURE CPT-4: 35536 04/11/2021 PROTHROMBIN TIME CPT-4: 05957 04/11/2021 ASSAY OF FREE THYROXINE CPT-4: 01526 04/11/2021 ASSAY THYROID STIM HORMONE CPT-4: 59439 04/11/2021 ROUTINE VENIPUNCTURE CPT-4: 37955 03/15/2021 PT CPT-4: 1270092 03/15/2021 ROUTINE VENIPUNCTURE CPT-4: 48851 02/22/2021 COMPREHEN METABOLIC PANEL CPT-4: 87631 02/22/2021 ASSAY OF FREE THYROXINE CPT-4: 40371 02/22/2021 ASSAY THYROID STIM HORMONE CPT-4: 63299 02/22/2021 COMPLETE CBC W/AUTO DIFF WBC CPT-4: 81672 02/22/2021 PROTHROMBIN TIME CPT-4: 89235 02/22/2021 LIPID PANEL CPT-4: 75914 02/22/2021 PPPS, subseq visit CPT-4: G0439 09/26/2020 ROUTINE VENIPUNCTURE CPT-4: 56487 05/23/2020 PROTHROMBIN TIME CPT-4: 59554 05/23/2020 ROUTINE VENIPUNCTURE CPT-4: 12335 01/20/2020 PT CPT-4: 3484240 01/20/2020 ROUTINE VENIPUNCTURE CPT-4: 64977 12/15/2019 PROTHROMBIN TIME CPT-4: 64188 12/15/2019 ROUTINE VENIPUNCTURE CPT-4: 80519 11/10/2019 PROTHROMBIN TIME CPT-4: 52657 11/10/2019 PROTHROMBIN TIME CPT-4: 66050 10/26/2019 ROUTINE VENIPUNCTURE CPT-4: 63814 10/26/2019 ROUTINE VENIPUNCTURE CPT-4: 82080 10/11/2019 PT CPT-4: 3969862 10/11/2019 PPPS, initial visit CPT-4: G0438 09/20/2019 ROUTINE VENIPUNCTURE CPT-4: 50207 09/08/2019 PT CPT-4: 2625315 09/08/2019 THER/PROPH/DIAG INJ SC/IM CPT-4: 21940 09/08/2019 TRIAMCINOLONE ACET INJ NOS CPT-4: J3301 09/08/2019 ROUTINE VENIPUNCTURE CPT-4: 77488 07/29/2019 PT CPT-4: 2125363 07/29/2019 ROUTINE VENIPUNCTURE CPT-4: 43074 07/18/2019 PT CPT-4: 2361471 07/18/2019 METABOLIC PANEL TOTAL CA CPT-4: 65717 07/06/2019 COMPLETE CBC W/AUTO DIFF WBC CPT-4: 76012 07/06/2019 PROTHROMBIN TIME CPT-4: 22948 07/06/2019 ROUTINE VENIPUNCTURE CPT-4: 91678 06/14/2019 PROTHROMBIN TIME CPT-4: 86008 06/14/2019 COMPLETE CBC W/AUTO DIFF WBC CPT-4: 09447 06/14/2019 ROUTINE VENIPUNCTURE CPT-4: 75569 05/13/2019 COMPREHEN METABOLIC PANEL CPT-4: 98975 05/13/2019 COMPLETE CBC W/AUTO DIFF WBC CPT-4: 12166 05/13/2019 ASSAY THYROID STIM HORMONE CPT-4: 01295 05/13/2019 ASSAY OF FREE THYROXINE CPT-4: 26420 05/13/2019 PT CPT-4: 5934887 05/06/2019 ROUTINE VENIPUNCTURE CPT-4: 10968 05/06/2019 PT CPT-4: 5325687 04/07/2019 ROUTINE VENIPUNCTURE CPT-4: 28387 04/07/2019 ROUTINE VENIPUNCTURE CPT-4: 23241 03/08/2019 PROTHROMBIN TIME CPT-4: 89352 03/08/2019 Vital Signs Date Vital 08/20/2021 Blood Pressure 1: 127/69 Code: 8480-6 Heart Rate 1: 84 bpm Respiratory Rate: 17 bpm SpO2: 98% Temperature: 36.7 (C) / 98.1 (F) We ight: 208 lbs Code: 09320-9 05/16/2021 Blood Pressure 1: 136/64 Code: 8480-6 BMI: 37.0 Code: 02168-2 Heart Rate 1: 61 bpm Height: 5'3" Code: 8302-2 Respiratory Rate: 16 bpm SpO2: 98% Temperature: 36.2 (C) / 97.1 (F) Weight: 212 lbs Code: 38255-3 03/05/2021 Blood Pressure 1: 134/76 Code: 8480-6 Heart Rate 1: 66 bpm Respiratory Rate: 16 bpm SpO2: 100% Temperature: 37.1 (C) / 98.7 (F) We ight: 203 lbs Code: 56356-5 02/19/2021 Blood Pressure 1: 126/70 Code: 8480-6 BMI: 35.4 Code: 73423-3 Heart Rate 1: 72 bpm Height: 5'3" Code: 8302-2 Respiratory Rate: 16 bpm SpO2: 99% Temperature: 36.3 (C) / 97.3 (F) Weight: 203 lbs Code: 82606-8 01/16/2021 Blood Pressure 1: 112/74 Code: 8480-6 Heart Rate 1: 76 bpm Respiratory Rate: 20 bpm Temperature: 36.7 (C) / 98.0 (F) Weight: 205 lbs Code : 52370-1 11/19/2020 Blood Pressure 1: 120/78 Code: 8480-6 Heart Rate 1: 88 bpm Temperature: 36.6 (C) / 97.8 (F) 11/12/2020 Blood Pressure 1: 110/57 Code: 8480-6 Heart Rate 1: 68 bpm Respiratory Rate: 15 bpm SpO2: 100% Weight: 202 lbs Code: 37009 -7 10/12/2020 Blood Pressure 1: 114/70 Code: 8480-6 Heart Rate 1: 84 bpm Respiratory Rate: 18 bpm SpO2: 98% Temperature: 36.7 (C) / 98.0 (F) 09/26/2020 Blood Pressure 1: 120/72 Code: 8480-6 BMI: 35.2 Code: 83291-7 Heart Rate 1: 76 bpm Height: 5'3" Code: 8302-2 Respiratory Rate: 20 bpm SpO2: 97% Temperature: 36.7 (C) / 98.0 (F) Weight: 202 lbs Code: 51041-7 08/27/2020 Blood Pressure 1: 126/82 Code: 8480-6 Heart Rate 1: 80 bpm Respiratory Rate: 20 bpm Temperature: 36.2 (C) / 97.1 (F) Weight: 198 lbs Code : 06508-5 05/23/2020 Blood Pressure 1: 120/78 Code: 8480-6 Heart Rate 1: 68 bpm Respiratory Rate: 20 bpm SpO2: 97% Temperature: 36.4 (C) / 97.5 (F) We ight: 200 lbs Code: 72721-5 05/02/2020 Blood Pressure 1: 133/81 Code: 8480-6 Heart Rate 1: 74 bpm Weight: 202 lbs Code: 83537-0 12/15/2019 Blood Pressure 1: 126/82 Code: 8480-6 Heart Rate 1: 64 bpm Respiratory Rate: 20 bpm SpO2: 97% Temperature: 36.6 (C) / 97.8 (F) We ight: 201 lbs Code: 79167-4 11/03/2019 Blood Pressure 1: 142/82 Code: 8480-6 [...] (C) / 98.1 (F) Weight: 204 lbs Code: 87679-9 09/20/2019 Blood Pressure 1: 122/68 Code: 8480-6 BMI: 35.0 Code: 50455-2 Heart Rate 1: 72 bpm Height: 5'3" Code: 8302-2 Respiratory Rate: 18 bpm SpO2: 95% Temperature: 36.8 (C) / 98.3 (F) Weight: 201 lbs Code: 53460-0 09/08/2019 Blood Pressure 1: 118/72 Code: 8480-6 Heart Rate 1: 82 bpm SpO2: 97% Temperature: 36.3 (C) / 97.4 (F) Weight: 208 lbs Code: 63212-6 06/14/2019 Blood Pressure 1: 128/84 Code: 8480-6 Heart Rate 1: 72 bpm Respiratory Rate: 20 bpm SpO2: 98% Temperature: 36.7 (C) / 98.1 (F) We ight: 209 lbs Code: 97601-9 05/13/2019 Blood Pressure 1: 144/90 Code: 8480-6 Heart Rate 1: 88 bpm Respiratory Rate: 24 bpm SpO2: 96% Temperature: 37.1 (C) / 98.8 (F) We ight: 210 lbs Code: 47265-3 05/02/2019 Blood Pressure 1: 128/80 Code: 8480-6 Heart Rate 1: 84 bpm Respiratory Rate: 20 bpm SpO2: 95% Temperature: 36.6 (C) / 97.9 (F) We ight: 209 lbs Code: 68636-0 03/22/2019 Blood Pressure 1: 122/70 Code: 8480-6 He art Rate 1: 85 bpm 03/08/2019 Blood Pressure 1: 114/78 Code: 8480-6 BMI: 36.1 Code: 93917-3 Heart Rate 1: 76 bpm Height: 5'3" Code: 8302-2 Respiratory Rate: 20 bpm SpO2: 97% Temperature: 37.1 (C) / 98.8 (F) Weight: 207 lbs Code: 92702-6 Functional Status No Functional Status data Reason For Visit Reason For Visit Effective Dates Notes lab draw 08/23/2021 abdominal pain 08/20/2021 ~generic 05/16/2021 Patient needs her Pr izabel Injection ordered. Patient's appointment is 05/24/2021. follow up 03/05/2021 patient has labs sca nned into chart Medication Monitoring 02/19/2021 Patient would like to go over all medications and dosages due to several changes being made by different physicians. rash 01/16/2021 blood pressure check 11/19/2020 low blood pressure 11/12/2020 edema 10/12/2020 well woman exam (65+ years) 09/26/2020 Medicare Wel lness--due for mammogram follow up 08/27/2020 follow up 05/23/2020 follow up 03/20/2020 follow up 12/15/2019 lab draw 11/10/2019 follow up 11/03/2019 headache [...] visit Encounters Encounter Performer Location Codes Date ([id number]) NURSE/OUTPATIENT VISIT EST Diagnosis: Chronic atrial fibrillation[ICD10: I48.20] Diagnosis: Long-term (current) use of anticoagulants, INR goal 2.0-3.0[ICD10: Z79.01] Diagnosis: FLU VACCINE[ICD10: Z23] Jeanie PINZON [employer] CPT-4: 17731 08/23/2021 ([id number]) OFFICE/OUTPATIENT VISIT EST Diagnosis: Breast pain, left[ICD10: N64.4] Diagnosis: Left breast lump[ICD10: N63.20] Remedios Cavazos JEANIE BLACK [employer] CPT-4: 79383 08/20/2021 ([id number]) NURSE/OUTPATIENT VISIT EST Diagnosis: Long-term (current) use of anticoagulants, INR goal 2.0-3.0[ICD10: Z79.01] Jeanie BLACK [employer] [facility] CPT-4: 97216 07/19/2021 ([id number]) NURSE/OUTPATIENT VISIT EST Diagnosis: Essential (primary) hypertension[ICD10: I10] Diagnosis: Chronic atrial fibrillation[ICD10: I48.20] Diagnosis: Long-term (current) use of anticoagulants, INR goal 2.0-3.0[ICD10: Z79.01] Diagnosis: Anemia, unspecified[ICD10: D64.9] Jeanie BLACK [employer] CPT-4: 83781 06/20/2021 ([id number]) OFFICE/OUTPATIENT VISIT EST Diagnosis: Long-term (current) use of anticoagulants, INR goal 2.0-3.0[ICD10: Z79.01] Diagnosis: Essential (primary) hypertension[ICD10: I10] Diagnosis: Chronic congestive heart failure with left ventricular diastolic dysfunction[ICD10: I50.32] Diagnosis: Severe obesity (BMI 35.0-39.9) with comorbidity[ICD10: E66.01] Diagnosis: Chronic atrial fibrillation[ICD10: I48.20] Diagnosis: Obstructive sleep apnea syndrome[ICD10: G47.33] Remedios Cavazos JEANIE OfeAxel VARUN [employer] [facility] CPT-4: 63988 05/16/2021 ([id number]) NURSE/OUTPATIENT VISIT EST Diagnosis: Hypothyroidism, unspecified[ICD10: E03.9] Diagnosis: Long-term (current) use of anticoagulants, INR goal 2.0-3.0[ICD10: Z79.01] Jeanie CONNELL Ofe[employer]el [employer] [facility] CPT-4: 18592 04/11/2021 ([id number]) NURSE/OUTPATIENT VISIT EST Diagnosis: Long-term (current) use of anticoagulants, INR goal 2.0-3.0[ICD10: Z79.01] Jeanie CONNELL OfeAxel [employer] [facility] CPT-4: 23609 03/15/2021 ([id number]) OFFICE/OUTPATIENT VISIT EST Diagnosis: Essential hypertension[ICD10: I10] Diagnosis: Cheilitis[ICD10: K13.0] Diagnosis: Pulmonary hypertension[ICD10: I27.20] Jeanie AGUILERA OfeAxel [employer] [facility] CPT-4: 63587 03/05/2021 ([id number]) NURSE/OUTPATIENT VISIT EST Diagnosis: Essential (primary) hypertension[ICD10: I10] Diagnosis: Hypothyroidism, unspecified[ICD10: E03.9] Diagnosis: Long-term (current) use of anticoagulants, INR goal 2.0-3.0[ICD10: Z79.01] Diagnosis: Mixed hyperlipidemia[ICD10: E78.2] Jeanie MCKEE OfeAxel [employer] [facility] CPT-4: 51189 02/22/2021 ([id number]) OFFICE/OUTPATIENT VISIT EST Diagnosis: Cheilitis[ICD10: K13.0] Diagnosis: Encounter for medication review and counseling[ICD10: Z71.89] Diagnosis: Long-term (current) use of anticoagulants, INR goal 2.0-3.0[ICD10: Z79.01] Diagnosis: Hypothyroidism, unspecified[ICD10: E03.9] Diagnosis: Mixed hyperlipidemia[ICD10: E78.2] Diagnosis: Severe obesity (BMI 35.0-39.9) with comorbidity[ICD10: E66.01] Diagnosis: Chronic congestive heart failure with left ventricular diastolic dysfunction[ICD10: I50.32] Remedios Cavazos JEANIE Hernandez ESTUARDOHAYDEEALBERTA [facility] CPT- 4: 46422 02/19/2021 ([id number]) OFFICE/OUTPATIENT VISIT EST Diagnosis: Cheilitis[ICD10: K13.0] Jannette Tiarra Hernandez ESTUARDOHAYDEE PINZON [facility] CPT-4: 65699 01/16/2021 ([id number]) OFFICE/OUTPATIENT VISIT EST Diagnosis: Hypotension[ICD10: I95.9] Diagnosis: Dizziness[ICD10: R42] Jannette Tiarrapeg Hernandez ESTUARDOKATIE [facility] CPT-4: 57939 11/12/2020 ([id number]) OFFICE/OUTPATIENT VISIT EST Diagnosis: Thoracic back pain[ICD10: M54.6] Diagnosis: Dizziness[ICD10: R42] Jannette Tiarrapeg Hernandez ESTUARDOHAYDEEALBERTA [facility] CPT-4: 83100 10/12/2020 ([id number]) OFFICE/OUTPATIENT VISIT EST Diagnosis: Chronic atrial fibrillation[ICD10: I48.20] Diagnosis: Chronic airway obstruction, not elsewhere classified[ICD10: J44.9] Diagnosis: Essential hypertension[ICD10: I10] Jeanie Hernandez ESTUADROHAYDEEALBERTA [employer] [facility] CPT-4: 65655 08/27/2020 ([id number]) OFFICE/OUTPATIENT VISIT EST Diagnosis: Essential (primary) hypertension[ICD10: I10] Diagnosis: Chronic atrial fibrillation[ICD10: I48.20] Diagnosis: COPD (chronic obstructive pulmonary disease)[ICD10: J44.9] Diagnosis: Dyspnea[ICD10: R06.00] Diagnosis: Left hip pain[ICD10: M25.552] Jeanie Hernandez ESTUARDOKATIE MCCURDY [facility] CPT-4: 63836 05/23/2020 ([id number]) NURSE/OUTPATIENT VISIT EST Diagnosis: Essential (primary) hypertension[ICD10: I10] Jeanie BLACK DO [facility] CPT-4: 44123 05/02/2020 ([id number]) OFFICE/OUTPATIENT VISIT EST Diagnosis: COPD (chronic obstructive pulmonary disease)[ICD10: J44.9] Diagnosis: Chronic atrial fibrillation[ICD10: I48.20] Diagnosis: Essential hypertension[ICD10: I10] Jeanie Black [facility] CPT-4: 20946 03/20/2020 ([id number]) NURSE/OUTPATIENT VISIT EST Diagnosis: Long-term (current) use of anticoagulants, INR goal 2.0-3.0[ICD10: Z79.01] Jeanie BLACK DO [facility] CPT-4: 72444 01/20/2020 ([id number]) OFFICE/OUTPATIENT VISIT EST Diagnosis: COPD (chronic obstructive pulmonary disease)[ICD10: J44.9] Diagnosis: Long-term (current) use of anticoagulants, INR goal 2.0-3.0[ICD10: Z79.01] Diagnosis: History of recent fall[ICD10: Z91.81] Jeanie BLACK [employer] [facility] CPT-4: 10618 12/15/2019 ([id number]) NURSE/OUTPATIENT VISIT EST Diagnosis: Long-term (current) use of anticoagulants, INR goal 2.0-3.0[ICD10: Z79.01] Jeanie BLACK DO [facility] CPT-4: 54834 11/10/2019 ([id number]) OFFICE/OUTPATIENT VISIT EST Diagnosis: Post concussion syndrome[ICD10: F07.81] Diagnosis: Head contusion[ICD10: S00.93XA] Diagnosis: Chronic airway obstruction, not elsewhere classified[ICD10: J44.9] Jeanie BLACK DO [facility] CPT-4: 89136 11/03/2019 ([id number]) OFFICE/OUTPATIENT VISIT EST Diagnosis: Fall as cause of accidental injury at home as place of occurrence[ICD10: W19.XXXA] Diagnosis: Headache[ICD10: R51] Diagnosis: Essential (primary) hypertension[ICD10: I10] Diagnosis: Long-term (current) use of anticoagulants, INR goal 2.0-3.0[ICD10: Z79.01] Diagnosis: Ecchymosis of left eye[ICD10: S05.12XA] Jannette BALCK [employer] CPT-4: 67427 10/31/2019 ([id number]) NURSE/OUTPATIENT VISIT EST Diagnosis: Long-term (current) use of anticoagulants, INR goal 2.0-3.0[ICD10: Z79.01] Jeanie ORTEZQUELINE OfeAxel VARUN [employer] CPT-4: 51636 10/26/2019 ([id number]) OFFICE/OUTPATIENT VISIT EST Diagnosis: Long-term (current) use of anticoagulants, INR goal 2.0-3.0[ICD10: Z79.01] Diagnosis: Pain in right arm[ICD10: M79.601] Diagnosis: Radiculopathy of arm[ICD10: M54.10] Jannette ROBERTS ALFONSO David BLACK [employer] CPT-4: 98229 10/11/2019 ([id number]) OFFICE/OUTPATIENT VISIT EST Diagnosis: Long-term (current) use of anticoagulants, INR goal 2.0-3.0[ICD10: Z79.01] Diagnosis: Sinusitis[ICD10: J32.9] Diagnosis: Pain in right arm[ICD10: M79.601] Jannette ThakurAxel VARUN [employer] CPT-4: 28657 09/08/2019 ([id number]) NURSE/OUTPATIENT VISIT EST Diagnosis: Chronic atrial fibrillation[ICD10: I48.2] Diagnosis: Encounter for therapeutic drug level monitoring[ICD10: Z51.81] Jeanie CONNELL OfeAxel VAR[employer] CPT-4: 45058 07/29/2019 ([id number]) NURSE/OUTPATIENT VISIT EST Diagnosis: Chronic atrial fibrillation[ICD10: I48.2] Diagnosis: Encounter for therapeutic drug level monitoring[ICD10: Z51.81] Jeanie CONNELL OfeAxel [employer] CPT-4: 82699 07/18/2019 ([id number]) NURSE/OUTPATIENT VISIT EST Diagnosis: Encounter for therapeutic drug level monitoring[ICD10: Z51.81] Diagnosis: Chronic atrial fibrillation[ICD10: I48.2] Diagnosis: Essential (primary) hypertension[ICD10: I10] Jeanie BLACK [employer] CPT-4: 32235 07/06/2019 ([id number]) OFFICE/OUTPATIENT VISIT EST Diagnosis: Encounter for therapeutic drug level monitoring[ICD10: Z51.81] Diagnosis: Anemia, unspecified[ICD10: D64.9] Diagnosis: Bitten by dog, sequela[ICD10: W54.0XXS] 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] Jeanie BLACK [employer] CPT-4: 20227 06/14/2019 ([id number]) OFFICE/OUTPATIENT VISIT EST Diagnosis: Bitten by dog, sequela[ICD10: W54.0XXS] Diagnosis: Other fatigue[ICD10: R53.83] Diagnosis: Hypothyroidism, unspecified[ICD10: E03.9] Diagnosis: Muscle weakness (generalized)[ICD10: M62.81] Diagnosis: Generalized anxiety disorder[ICD10: F41.1] Jannette BLACK [employer] CPT-4: 09962 05/13/2019 ([id number]) NURSE/OUTPATIENT VISIT EST Diagnosis: Encounter for therapeutic drug level monitoring[ICD10: Z51.81] Jeanie BLACK [employer] CPT-4: 00708 05/06/2019 ([id number]) OFFICE/OUTPATIENT VISIT EST Diagnosis: Bitten by dog, sequela[ICD10: W54.0XXS] Diagnosis: Pain in right wrist[ICD10: M25.531] Diagnosis: Abrasion of right upper arm, sequela[ICD10: S40.811S] Diagnosis: Abrasion of left upper arm, sequela[ICD10: S40.812S] Jannette BLACK [employer] CPT-4: 25525 05/02/2019 ([id number]) NURSE/OUTPATIENT VISIT EST Diagnosis: Encounter for therapeutic drug level monitoring[ICD10: Z51.81] Jeanie CONNELL OfeAxel VAR[employer] CPT-4: 04941 04/07/2019 ([id number]) OFFICE/OUTPATIENT VISIT NEW Diagnosis: Encounter for therapeutic drug level monitoring[ICD10: Z51.81] Diagnosis: Chronic atrial fibrillation[ICD10: I48.2] Diagnosis: Essential (primary) hypertension[ICD10: I10] Diagnosis: Abnormal findings on diagnostic imaging of heart and coronary circulation[ICD10: R93.1] Diagnosis: Other forms of dyspnea[ICD10: R06.09] Diagnosis: Hypothyroidism, unspecified[ICD10: E03.9] Diagnosis: Mixed hyperlipidemia[ICD10: E78.2] Jeanie MCKEE OfeAxel VARUN [employer] CPT-4: 75177 03/08/2019 Plan of Care Planned Activity Notes Codes Status Date Appointment: Jeanie Black WPtel: [address] [place] [address] US LAB 08/23/2021 Visit Plan: 08/20/2021 Visit Diagnosis Plan: Left breast lump Discussion: Jonas [place] get US of left breast and soft tissue under breast and f/u with results. F/U for sooner for concerns. ICD-9 : 611.72 ICD-10 : N63.20 08/20/2021 Appointment: Jeanie Black WPtel: [address] [place], [place] [id number] US CANCELED 08/20/2021 Appointment: Remedios Cavazos WPtel: [phone] [facility] 08/20/2021 Patient Education: Patient Medication Summary Completed 08/20/2021 Appointment: Jeanie Black WPtel: [address] [place] [address] see note in chart from 08/08/21 (km) CANCELED 08/08/2021 Appointment: Jeanie Black WPtel: [address] [place] [address] LAB 07/19/2021 Appointment: Jeanie Black WPtel: [phone] [facility] US LAB 06/20/2021 Visit Diagnosis Plan: Severe obesity (BMI 35.0-39.9) w ith comorbidity Discussion: Discussed diet and exercise ICD-9 : 278.01 ICD-10 : E66.01 05/16/2021 Visit Diagnosis Plan: Obstructive sleep apnea syndrome Discussion: Per pulm note- order for bipap sent to [facility]- will call them to check, patient states she has not been contacted regarding this yet ICD-9 : 327.23 ICD-10 : G47.33 05/16/2021 Visit Diagnosis Plan: Chronic atrial fibrillation Disc ussion: stable ICD-9 : 427.31 ICD-10 : I48.20 05/16/2021 Visit Diagnosis Plan: Chronic congestive heart failure with left ventricular diastolic dysfunction Discussion: Per pulbautista- continue isosorbid e ER 30 mg and spironolactone ICD-9 : 428.32 ICD-10 : I50.32 05/16/2021 Visit Diagnosis Plan: Essential (primary) hypertension Discussion: Stable today. Will monitor Follow Up: 3 months ICD-9 : 401.9 ICD-10 : I10 05/16/2021 Visit Diagnosis Plan: Long-term (current ) use of anticoagulants, INR goal 2.0-3.0 Discussion: Will update PT/INR today ICD-9 : V58.61 ICD-10 : Z79.01 05/16/2021 Appointment: Remedios Cavazos [facility]el[facility] [phone] [id number] [facility] MED[facility] REVIEW 05/16/2021 Patient Education: Patient Medication Summary Completed 05/16/2021 Patient Education: isosorbide mononitrate- [employer] Diane [id number] [email or web address] Completed 05/16/2021 Patient Education: High Blood Pressure Co mpleted 05/16/2021 Appointment: Jeanie Black WPtel: [address] [place], [place] [id number] US LAB 04/11/2021 Appointment: Jeanie Black WPtel: [address] [place], [place] [phone] US CANCELED 03/27/2021 Appointment: Jeanie Black WPtel: [address] [place], [place] [phone] US LAB 03/15/2021 Visit Diagnosis Plan: Pulmonary hypertension Discussio n: Dr. James referred to Dr. Guevara ICD-9 : 416.8 ICD-10 : I27.20 03/05/2021 Visit Diagnosis Plan: Cheilitis Discussion: Has improv ed with DC of spironolactone, amlodopine and famotodine ICD-9 : 528.5 ICD-10 : K13.0 03/05/2021 Visit Diagnosis Plan: Essential hypertension Discussio n: Stable with DC of meds ICD-9 : 401.9 ICD-10 : I10 03/05/2021 Appointment: Jeanie Black WPtel: [address] [place], [place] [phone] FOLLOW UP 03/05/2021 Patient Education: spironolactone- [employer] Coupon 1 [id number] [email or web address]/samplemd/resources/getResource/61/[email or web address] Completed 03/05/2021 Appointment: Jeanie Black WPtel: [address] [place], [place] [id number] US LAB 02/22/2021 Visit Diagnosis Plan: Cheilitis Discussion: Will stop spironolactone and famotidine to see if it helps lips heal, f/u in 2 weeks. Use vaseline or other ointments around lips. Stay well hydrated. Avoid spicy, acidic, salty foods. ICD-9 : 528.5 ICD-10 : K13.0 02/19/2021 Visit Diagnosis Plan: Long-term (current ) use of anticoagulants, INR goal 2.0-3.0 Discussion: Continue current dose of Cou madin. Will recheck INR/pt/ptt on Thursday or Thursday when she comes in for labs. ICD-9 : V58.61 ICD-10 : Z79.01 02/19/2021 Visit Diagnosis Plan: Hypothyroidism, unspecified Disc ussion: Dosage was decreased at last visit. Will recheck TSH and free T4 when she comes in for labs. ICD-9 : 244.9 ICD-10 : E03.9 02/19/2021 Visit Diagnosis Plan: Severe obesity (BMI 35.0-39.9) w ith comorbidity Discussion: Discussed exercises that she could do at home as well as dietary changes. ICD-9 : 278.01 ICD-10 : E66.01 02/19/2021 Visit Diagnosis Plan: Encounter for medication review and counseling Discussion: Will stop spironolactone and famotadine. Change isosorbide ER 30 mg daily to 10 mg immediate release and will take BID. Discussed all medications, questions answered, patient voiced understanding. Recommendations: Labs: Patient to come in for fasting lab work this Thursday or next Thursday. TSH with free T4, CMP, CBC, PT/INR. Follow Up: 2 weeks ICD-9 : V65.49 ICD-10 : Z71.89 02/19/2021 Visit Diagnosis Plan: Chronic congestive heart failure with left ventricular diastolic dysfunction Discussion: Appointment with Dr. Erika torres ext Thursday. ICD-9 : 428.32 ICD-10 : I50.32 02/19/2021 Visit Diagnosis Plan: Mixed hyperlipidemia Discussion: Doing well on statin. Will get fasting lipids panel ICD-9 : 272.4 ICD-10 : E78.2 02/19/2021 Appointment: Remed[facility]os [facility]el[facility] [phone] [id number] [facility] 02/19/2021 Patient Education: Patient Medication Summary Completed 02/19/2021 Visit Diagnosis Plan: Cheilitis Discussion: symptoms s tarted after starting famotidine and spironolactone. discussed with patient that could be cheilitis vs angioedema so instructed to stop the spironolactone and famotidine and predni sone prescribed to take as directed. samples of eucrisa given to be used bid. call office on thursday with update but to ED after hours with worsening symptoms/tongue swelling/dysphagia etc. ICD-9 : 528.5 ICD-10 : K13.0 01/16/2021 Appointment: Jannette Mayen [address] [place] [address] ACUTE ILLNESS 01/16/2021 Appointment: Jeanie Black WPtel: [phone] BP CHECK 11/19/2020 Visit Diagnosis Plan: Hypotension Discussion: patient admits to drinking 1/2 glass of wine three times a week only. will stop the amlodipine. instructed to rtc next week for bp check. call office sooner with any new or worsening symptom s though. instructed patient to drink lots of water/fluids to help increase her bp, especially with her being on multiple diuretics for her pulmonary htn. ICD-9 : 458.9 ICD-10 : I95.9 11/12/2020 Appointment: Jannette Mayen [address] [place] [address] ACUTE ILLNESS 11/12/2020 Visit Diagnosis Plan: Thoracic back pain Discussion: w ill send order for PT through [facility]. call office with any new or worsening symnptpsm ICD-9 : 724.1 ICD-10 : M54.6 10/12/2020 Visit Diagnosis Plan: Dizziness Discussion: will obtai n most recent labs from [facility]. instructed patient to push fluids as much as possible since she couldve been dehydrated. call office if it occurs again and will need to proceed with additional testing. however, she had heart cath a week prior which was negative. ICD-9 : 780.4 ICD-10 : R42 10/12/2020 Appointment: Jannette Mayen [address] [place] [address] ACUTE ILLNESS 10/12/2020 Visit Diagnosis Plan: Chronic atrial fibrillation Disc ussion: Following routinely with cardiology ICD-9 : 427.31 ICD-10 : I48.20 09/26/2020 Visit Diagnosis Plan: Essential (primary) hypertension Discussion: Stable ICD-9 : 401.9 ICD-10 : I10 09/26/2020 Visit Diagnosis Plan: Encounter for [facility] adult medical examination without abnormal findings Discussion: Mediterranean diet Combinati on of cardio and weight bearing exercise Follow Up: 3 months ICD-9 : V70.9 ICD-10 : Z00.00 09/26/2020 Visit Diagnosis Plan: Pulmonary hypertension Discussio n: Had recent heart cath ICD-9 : 416.8 ICD-10 : I27.20 09/26/2020 Visit Diagnosis Plan: Chronic congestive heart failure with left ventricular diastolic dysfunction Discussion: Continue current meds Update sleep study ICD-9 : 428.32 ICD-10 : I50.32 09/26/2020 Appointment: Jeanie Black [facility]Ptel[facility] [phone] [facility] [place] Annual Well Visit 09/26/2020 Care Plan: Referral Order SNOMED-CT : 30 [id number] Pending 09/26/2020 Visit Diagnosis Plan: Chronic airway obstruction, not elsewhere classified Discussion: may want updated PFT or sleep study--patient has had both done within past few years ICD-9 : 496 ICD-10 : J44.9 08/27/2020 Visit Diagnosis Plan: Chronic atrial fibrillation Disc ussion: Seeing cardiology at Added amlodopine and spironolactone Having labwork done Thursday and already had flu shot Follow Up: 6 months ICD-9 : 427.31 ICD-10 : I48.20 08/27/2020 Appointment: Jeanie Black WPtel[facility] [phone] [facility] [place] FOLLOW UP 08/27/2020 Visit Diagnosis Plan: Dyspnea Discussion: Sees Cardiol natalya next month and will inquire about ECHO ICD-9 : 786.09 ICD-10 : R06.00 05/23/2020 Visit Diagnosis Plan: COPD (chronic obstructive pulmon valeria disease) Discussion: Will resume pulmonary rehab once opens up and COVID-19 Follow Up: 3 months ICD-9 : 496 ICD-10 : J44.9 05/23/2020 Visit Diagnosis Plan: Chronic atrial fibrillation Disc ussion: On Coumadin Check PT/INR ICD-9 : 427.31 ICD-10 : I48.20 05/23/2020 Visit Diagnosis Plan: Left hip pain Discussion: Recomm end left hip x-ray but will hold for now due to COVID ICD-9 : 719.45 ICD-10 : M25.552 05/23/2020 Visit Diagnosis Plan: Essential (primary) hypertension Discussion: Stable ICD-9 : 401.9 ICD-10 : I10 05/23/2020 Appointment: Jeanie Black WPtel: [address] [place], [place] [address] FOLLOW UP 05/23/2020 Appointment: Jeanie Black WPtel: [address] [place] [address] NURSE SERVICES 05/02/2020 Visit Diagnosis Plan: Chronic atrial fibrillation Disc ussion: Stable on Coumadin--refills ICD-9 : 427.31 ICD-10 : I48.20 03/20/2020 Visit Diagnosis Plan: Essential hypertension Discussio n: Decrease Losartan to 100mg daily Follow Up: 3 months ICD-9 : 401.9 ICD-10 : I10 03/20/2020 Visit Diagnosis Plan: COPD (chronic obstructive pulmon valeria disease) Discussion: Will resume pulmonary rehab once COVID-19 dies down ICD-9 : 496 ICD-10 : J44.9 03/20/2020 Appointment: Jeanie Black WPtel: [address] [place] [address] TELEMEDICINE 03/20/2020 Patient Education: Coumadin- [employer] Coupon [id number] https://www.Clarizen/samplemd/resources/getResource/61/3q971s10-82h5-6mqa-7w Completed 03/20/2020 Patient Education: Coumadin- [employer] Coupon [id number] https://www.Clarizen/samplemd/resources/getResource/61/9aj59c5h-8l7p-8cs7-ug Completed 03/20/2020 Appointment: Jeanie Black WPtel: [address] [place], [place] [phone] LAB 01/20/2020 Visit Diagnosis Plan: History of recent fall Discussio n: Healing well Doing balance class at [facility] Follow Up: 3 months ICD-9 : V15.88 ICD-10 : Z91.81 12/15/2019 Visit Diagnosis Plan: COPD (chronic obstructive pulmon valeria disease) Discussion: Continue pulmonary rehab ICD-9 : 496 ICD-10 : J44.9 12/15/2019 Visit Diagnosis Plan: Long-term (current ) use of anticoagulants, INR goal 2.0-3.0 Discussion: PT/INR drawn ICD-9 : V58.61 ICD-10 : Z79.01 12/15/2019 Appointment: Jeanie Black WPtel: [address] [place], [place] [phone] [place] FOLLOW UP 12/15/2019 Patient Education: Coumadin- [employer] Coupon [id number] https://www.Clarizen/TheShoppingPromd/resources/getResource/61/d569uxxd-od30-9qji-0v Completed 12/15/2019 Appointment: Jeanie Black WPtel: [address] [place], [place] [phone] US LAB 11/10/2019 Visit Diagnosis Plan: Post concussion syndrome Discuss [...] : J44.9 11/03/2019 Appointment: Jeanie Black WPtel: [address] [place], [place] [phone] US FOLLOW UP 11/03/2019 Care Plan: CT HEAD/BRAIN W/O DYE LOINC : 58055-1 Pending 11/01/2019 Visit Diagnosis Plan: Essential (primary) [...] : S05.12XA 10/31/2019 Appointment: Jannette Mayen [address] [place] [address] Hospital Follow Up 10/31/2019 Patient Education: High Blood Pressure Co mpleted 10/31/2019 Patient Education: losartan- [employer] Coupon [id number] https://www.Clarizen/sampleExtra Life/resources/getResource/61/6d591080-7a09-1292-4g Completed 10/31/2019 Appointment: Jeanie Black WPtel: [phone] FOLLOW UP 10/26/2019 Visit Diagnosis Plan: Long-term (current ) use of anticoagulants, INR goal 2.0-3.0 Discussion: will update pt/inr ICD-9 : V58.61 ICD-10 : Z79.01 10/11/2019 Visit Diagnosis Plan: Radiculopathy of arm Discussion: flexeril prescribed to take as needed. will start at low dose but instructed patient to call office if not effective and will increase mg dose. PT ordered at [facility] to assist with pain. if no improvement or worsening from PT, will need imaging. 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 ICD-9 : 906.1 ICD-10 : W54.0XXS 09/20/2019 Visit Diagnosis Plan: Encounter for [facility] adult medical examination without abnormal findings [...] : 272.4 ICD-10 : E78.2 09/20/2019 Appointment: Jeanie Black WPtel: [phone] [facility] Annual Well Visit 09/20/2019 Visit Diagnosis [...] : Z79.01 09/08/2019 Appointment: Jannette Mayen [address] [place], [place] [id number] ACUTE ILLNESS 09/08/2019 Appointment: Jeanie Black WPtel: [address] [place], [place] [phone] US CANCELED 08/16/2019 Appointment: Jeanie Black WPtel: [address] [place], [place] [phone] US LAB 07/29/2019 Appointment: Jeanie Black WPtel: [address] [place], [place] [phone] US LAB 07/18/2019 Appointment: Jeanie Black WPtel: [address] [place], [place] [phone] US LAB 07/06/2019 Visit Diagnosis Plan: Bitten by dog, sequcarlton Discussio n: Is seeing counselor which is [...] : 285.9 ICD-10 : D64.9 06/14/2019 Appointment: Jeanie Black WPtel: [address] [place] [id number] [place] FOLLOW UP 06/14/2019 Visit Diagnosis Plan: [...] hydrocodone several days ago. will refer to [facility] as well to discuss [...] ICD-10 : R53.83 05/13/2019 Appointment: Jannette Mayen [address] [place], [place] [id number] FOLLOW UP 05/13/2019 Patient Education: carvedilol- [employer] Coupon [phone] https://www.Clarizen/samplemd/resources/getResource/61/18o9s001-5byp-5049-0x Completed 05/13/2019 Patient Education: Xanax- [employer] Coupon [id number] https://www.Clarizen/samplemd/resources/getResource/61/3285s5j1-4x61-2z6u-j4 1e-2j53055821h8.pdf Completed 05/13/2019 Appointment: Jeanie Black WPtel: [phone] [facility] [place] LAB 05/06/2019 Visit Diagnosis Plan: Abrasion [...] results to dr. portillo at [facility]. ICD-9 : 719.43 ICD-10 : M25.531 05/02/2019 Appointment: Jannette Mayen [address] [place] [address] ACUTE ILLNESS 05/02/2019 Care Plan: X-RAY EXAM OF WRIST right LOINC : 3 7302-7 Pending 05/02/2019 Appointment: Jeanie Black WPtel: [address] [place] [address] LAB 04/07/2019 Appointment: Jeanie Black WPtel: [address] [place] [address] BP CHECK 03/22/2019 Visit Diagnosis Plan: Abnormal [...] : 401.9 ICD-10 : I10 03/08/2019 Appointment: Jeanie Black WPtel: [phone] [facility] NEW PATIENT 03/08/2019 Referral: Shona Viera WPtel: [facility] [address] Referral Appointment Requested Instructions No Instructions Medical Equipment No Medical Equipment data Health Concerns Section Health Concerns data not found Goals Section Goals data not found Interventions Section Interventions data not found Health Status Evaluations/Outcomes Section Health Status Evaluations/Outcomes data not found Advance Directives No Advance Directive data
--- OUTSIDE RECORDS SUMMARY | 2021-09-19 12:39 | XMS REPORT | CCD ---
Author Author Tricia Black D.O. Organization [facility] Address [address] [place] [address] Phone Care Team Providers Care Utility Agent Name Role Phone PP Unavailable CCM Unavailable Summary Purpose Interface Exchange Insurance Providers Payer name Policy type / Coverage type Covered constitution party ID Effective Begin Date Effective End Date WPS MEDICARE PART B [place] Medicare Part B [id number] Unknown Unknown AARP Medicare Part B [id number] Unknown Unknown Family history Grandmother Diagnosis Age [...] Unknown Retired 03/08/[address]: [id number] Has never smoked or chewed tobacco 03/08/[address]: 015480 Currently drinks alcohol 03/08 Has the patient [...] Start Date Stop Date Status Fill Instructions isosorbide mononitrate 10 mg tablet RxNorm: 548560 Take 1 Tablet(s) Oral two times a day 09/09/2021 12/07/2021 Active Coumadin 4 mg tablet RxNorm: 020792 Take 1 Tablet(s) Or al MWF Thursday through 08/26/2021 11/23/2021 Active change in dose Coumadin 2 mg tablet RxNorm: 525686 1 Tablet(s) Oral , , Thu and Thursday08/26/2021 11/23/2021 Active isosorbide mononitrate 10 mg tablet RxNorm: 482439 Take 1 Tablet(s) Oral two times a day 08/08/2021 09/09/2021 Inactive losartan 100 mg tablet RxNorm: 733668 Take 1 Tablet(s) Oral QD 07/2411/02/2021 Active amoxicillin 500 mg capsule RxNorm: 059209 4 Capsule(s) Oral QD 1hr prior to dental cleaning 08/05/2021 08/05/2021 Inactive levothyroxine 50 mcg tablet RxNorm: 136812 TAKE 1 TABLE T BY MOUTH EVERY DAY. RECHECK LABS IN 2 MONTHS 08/04/2021 10/02/2021 Active potassium chloride ER 10 mEq tablet,extended release RxNorm: 721638 TAKE 1 TABLET BY MOUTH EVERY DAY 07/14/2021 10/11/2021 Active spironolactone 25 mg tablet RxNorm: 152136 1/2 Tablet(s) Oral QD No Stop Date Active isosorbide mononitrate 10 mg tablet RxNorm: 031657 Take 1 Tablet(s) Oral two times a day 05/16/2021 05/16/2021 Inactive isosorbide mononitrate ER 30 mg tablet,extended release 24 h r RxNorm: 979627 TABLET(S) 1 TABLET(S) PO NEEDED Tablet(s) Oral 05/16/2021 08/07/2021 Inactive Patient requests 90 days supply furosemide 40 mg tablet RxNorm: 888749 TAKE 1 TABLET BY MOUTH E VERY MORNING 05/07/2021 08/04/2021 Inactive isosorbide mononitrate 10 mg tablet RxNorm: 730432 Take 1 Tablet(s) Oral two times a day 04/26/2021 05/15/2021 Inactive isosorbide mononitrate 10 mg tablet RxNorm: 652899 Take 1 Tablet(s) Oral two times a day 04/25/2021 04/25/2021 Inactive potassium chloride ER 10 mEq tablet,extended release RxNorm: 310483 TAKE 1 TABLET BY MOUTH EVERY DAY 04/19/2021 04/19/2021 Inactive Coumadin 4 mg tablet RxNorm: 790619 1 Tablet(s) Oral Thursday04/11/2021 04/11/2021 Inactive Coumadin 2 mg tablet RxNorm: 671042 1 Tablet(s) Oral on Thursday and Thursday04/11/2021 04/11/2021 Inactive carvedilol 25 mg tablet RxNorm: 754180 1 Tablet(s) Oral two antolin es a day 04/03/2021 09/29/2021 Active Coumadin 2 mg tablet RxNorm: 132698 TAKE [address] [facility] ON THURSDAY AND Thursday03/26/2021 04/10/2021 Inactive Coumadin 4 mg tablet RxNorm: 473657 1 Tablet(s) Oral QD 02/26/2021 Inactive levothyroxine 50 mcg tablet RxNorm: 929050 1 Tablet(s) Oral QD Recheck labs in 2 months 02/26/2021 02/26/2021 Inactive Recheck labs in 2 months levothyroxine 50 mcg tablet RxNorm: 919411 1 Tablet(s) Oral QD Recheck labs in 2 months 02/26/2021 02/25/2021 Inactive Recheck labs in 2 months losartan 100 mg tablet RxNorm: 701410 TAKE 1 TABLET BY MOUTH 02/22/2021 08/20/2021 Inactive spironolactone 25 mg tablet RxNorm: 106383 1 Tablet(s) Oral QD 01/2303/04/2021 Inactive isosorbide mononitrate 10 mg tablet RxNorm: 710500 1 Ta blet(s) Oral two times a day 02/19/2021 02/25/2021 Inactive famotidine 20 mg tablet RxNorm: 376301 1 Tablet(s) Oral QD 02/20/2003/04/2021 Inactive levothyroxine 25 mcg tablet RxNorm: 943249 1 Tablet(s) Oral QD 07/202102/25/2021 Inactive atorvastatin 40 mg tablet RxNorm: 490541 1 Tablet(s) Or al QPM replaces pravastatin 01/29/2021 07/27/2021 Inactive furosemide 40 mg tablet RxNorm: 574193 TAKE 1 TABLET BY MOUTH E VERY MORNING 01/28/2021 01/28/2021 Inactive prednisone 10 mg tablet RxNorm: 445459 1 Tablet(s) Oral two antolin es a day 01/16/2021 01/19/2021 Inactive atorvastatin 40 mg tablet RxNorm: 071867 1 Tablet(s) Or al QPM replaces pravastatin 12/31/2020 01/28/2021 Inactive carvedilol 25 mg tablet RxNorm: 920049 TAKE 1 TABLET BY MOUTH T WICE DAILY 12/31/2020 04/02/2021 Inactive potassium chloride ER 10 mEq tablet,extended release RxNorm: 667153 TAKE 1 TABLET BY MOUTH EVERY DAY 12/31/2020 12/31/2020 Inactive losartan 100 mg tablet RxNorm: 985336 1 Tablet(s) Oral QD 12/03/2020 02/21/2021 Inactive Coumadin 4 mg tablet RxNorm: 325507 TAKE [address] [facility] THURSDAY THROUGH Thursday11/30/2020 02/25/2021 Inactive levothyroxine 25 mcg tablet RxNorm: 218818 1 Tablet(s) Oral QD 10/2401/28/2021 Inactive famotidine 20 mg tablet RxNorm: 319292 1 Tablet(s) Oral QD 11/19/20 20 01/15/2021 Inactive famotidine 20 mg tablet RxNorm: 734858 1 Tablet(s) Oral QD 11/19/2011/18/2020 Inactive levothyroxine 50 mcg tablet RxNorm: 683138 TAKE 1 TABLET BY ENE TH EVERY DAY 11/06/2020 01/29/2021 Inactive furosemide 40 mg tablet RxNorm: 959089 TAKE 1 TABLET BY MOUTH E VERY MORNING 11/05/2020 01/27/2021 Inactive atorvastatin 40 mg tablet RxNorm: 337199 1 Tablet(s) Or al QPM replaces pravastatin 10/22/2020 12/30/2020 Inactive atorvastatin 40 mg tablet RxNorm: 778430 1 Tablet(s) Or al QPM replaces pravastatin 10/22/2020 10/21/2020 Inactive spironolactone 25 mg tablet RxNorm: 781205 1 Tablet(s) Oral QAM 01/15/2021 Inactive carvedilol 25 mg tablet RxNorm: 843044 TAKE 1 TABLET BY MOUTH T WICE DAILY 10/04/2020 12/30/2020 Inactive pravastatin 40 mg tablet RxNorm: 642703 TAKE 1 TABLET BY MOUTH EVERY DAY 10/04/2020 12/31/2020 Inactive potassium chloride ER 10 mEq tablet,extended release RxNorm: 977140 TAKE 1 TABLET BY MOUTH EVERY DAY 10/04/2020 12/30/2020 Inactive isosorbide mononitrate ER 30 mg tablet,extended release 24 h r RxNorm: 706869 TABLET(S) 1 TABLET(S) PO NEEDED Oral 10/04/2020 02/18/2021 Inactive Patient requests 90 days supply furosemide 40 mg tablet RxNorm: 761172 TAKE 1 TABLET BY MOUTH E VERY MORNING 10/01/2020 11/04/2020 Inactive losartan 100 mg tablet RxNorm: 232015 TAKE 1 TABLET BY MOUTH 09/19/2020 12/02/2020 Inactive amlodipine 5 mg tablet RxNorm: 790617 1 Tablet(s) Oral QD 08/27/2020 11/11/2020 Inactive spironolactone 25 mg tablet RxNorm: 290595 1 Tablet(s) Oral QAM 03/202010/21/2020 Inactive levothyroxine 50 mcg tablet RxNorm: 462270 TAKE 1 TABLET BY ENE TH EVERY DAY 08/07/2020 11/04/2020 Inactive levothyroxine 50 mcg tablet RxNorm: 897403 TAKE 1 TABLET BY ENE TH EVERY DAY 08/06/2020 08/06/2020 Inactive amoxicillin 500 mg capsule RxNorm: 366631 4 Capsule(s) Oral QD 1hr prior to dental cleaning 07/31/2020 07/30/2020 Inactive amoxicillin 500 mg capsule RxNorm: 552867 4 Capsule(s) Oral QD 1hr prior to dental cleaning 07/31/2020 07/31/2020 Inactive potassium chloride ER 10 mEq tablet,extended release RxNorm: 320926 TAKE 1 TABLET BY MOUTH EVERY DAY 07/23/2020 10/03/2020 Inactive pravastatin 40 mg tablet RxNorm: 694162 TAKE 1 TABLET BY MOUTH EVERY DAY 07/23/2020 10/03/2020 Inactive carvedilol 25 mg tablet RxNorm: 511859 TAKE 1 TABLET BY MOUTH T WICE DAILY 07/23/2020 10/03/2020 Inactive losartan 100 mg tablet RxNorm: 132503 TAKE 1 TABLET BY MOUTH EV 06/27/2020 09/18/2020 Inactive furosemide 40 mg tablet RxNorm: 893653 TAKE 1 TABLET BY MOUTH E VERY MORNING 06/08/2020 09/30/2020 Inactive Coumadin 4 mg tablet RxNorm: 341863 1 Tablet(s) Oral Thursday thr thursday06/07/2020 11/29/2020 Inactive Coumadin 2 mg tablet RxNorm: 591506 1 Tablet(s) Oral on and Thursday03/20/2020 03/19/2020 Inactive Coumadin 4 mg tablet RxNorm: 502782 1 Tablet(s) Oral Thursday thr thursday03/20/2020 06/06/2020 Inactive losartan 100 mg tablet RxNorm: 045762 TAKE 1 TABLET BY MOUTH EV RANDI03/20/2020 06/26/2020 Inactive Coumadin 2 mg tablet RxNorm: 231210 1 Tablet(s) Oral on and Thursday03/20/2020 02/25/2021 Inactive furosemide 40 mg tablet RxNorm: 709526 1 Tablet(s) Oral QAM 020 06/07/2020 Inactive pravastatin 40 mg tablet RxNorm: 269840 TAKE 1 TABLET BY MOUTH EVERY DAY 02/07/2020 07/22/2020 Inactive losartan 100 mg tablet RxNorm: 701084 TAKE 1 TABLET BY MOUTH EV RANDI DAY 02/01/2020 03/19/2020 Inactive losartan 100 mg tablet RxNorm: 670469 TAKE 1 TABLET BY MOUTH EV RANDI DAY 01/17/2020 01/31/2020 Inactive Coumadin 2 mg tablet RxNorm: 124947 1 Tablet(s) Oral on and Thursday12/15/2019 12/15/2019 Inactive furosemide 40 mg tablet RxNorm: 884059 TAKE 1 TABLET BY MOUTH E VERY MORNING 12/14/2019 03/12/2020 Inactive pravastatin 40 mg tablet RxNorm: 204139 TAKE 1 TABLET BY MOUTH EVERY DAY 11/27/2019 02/06/2020 Inactive losartan 100 mg tablet RxNorm: 075398 1 Tablet(s) Oral QD 11/10/2019 01/16/2020 Inactive isosorbide mononitrate ER 30 mg tablet,extended release 24 h r RxNorm: 782579 TABLET(S) 1 TABLET(S) PO NEEDED 11/10/2019 05/08/2020 Inactive Patient requests 90 days supply carvedilol 25 mg tablet RxNorm: 120839 1 Tablet(s) Oral two antolin es a 11/10/2019 05/08/2020 Inactive Coumadin 2 mg tablet RxNorm: 959503 1 Tablet(s) Oral on and Thursday11/10/2019 12/14/2019 Inactive losartan 100 mg tablet RxNorm: 419811 1 Tablet(s) Oral QD 11/10/2019 11/09/2019 Inactive levothyroxine 50 mcg tablet RxNorm: 895961 1 Tablet(s) Oral QD 10/2310/21/2020 Inactive Coumadin 4 mg tablet RxNorm: 656129 1 Tablet(s) Oral Thursday11/10/2019 11/10/2019 Inactive losartan 50 mg tablet RxNorm: 454211 2 Tablet(s) Oral QD 11/01/2019 1 01/10/2019 Inactive potassium chloride ER 10 mEq capsule,extended release RxNorm : 438966 1 Capsule(s) Oral QD 10/26/2019 12/14/2019 Inactive potassium chloride ER 10 mEq tablet,extended release RxNorm: 254569 1 TABLET(S) ORAL QD 10/22/2019 04/18/2020 Inactive Replaces PA on 1 0MEQ Capsules Aspir-81 mg tablet,delayed release RxNorm: 050456 1 Tablet(s) O ral QD 10/11/2019 No Stop Date Active cyclobenzaprine 5 mg tablet RxNorm: 387606 1 Tablet(s) Oral two times a day as needed for muscle spasm 10/11/2019 03/19/2020 Inactive Coumadin 4 mg tablet RxNorm: 154538 1 Tablet(s) Oral Mo through Thursday and 1/2 tablet (2mg) on Sat/Sun 10/11/2019 11/09/2019 Inactive potassium chloride ER 10 mEq tablet,extended release RxNorm: 302932 1 Tablet(s) Oral QD 09/22/2019 09/21/2019 Inactive Replaces PA on 1 0MEQ Capsules potassium chloride ER 10 mEq tablet,extended release RxNorm: 881266 1 Tablet(s) Oral QD 09/22/2019 10/10/2019 Inactive Replaces PA on 1 0MEQ Capsules potassium chloride ER 10 mEq capsule,extended release RxNorm : 461205 1 Capsule(s) Oral QD 09/21/2019 09/21/2019 Inactive carvedilol 25 mg tablet RxNorm: 203665 1 Tablet(s) Oral two antolin es a day 08/23/2019 11/09/2019 Inactive isosorbide mononitrate ER 30 mg tablet,extended release 24 h r RxNorm: 563971 TABLET(S) 1 TABLET(S) PO NEEDED 08/22/2019 10/04/2020 Inactive Patient requests 90 days supply isosorbide mononitrate ER 30 mg tablet,extended release 24 h r RxNorm: 344062 Tablet(s) 1 TABLET(S) PO NEEDED 08/16/2019 08/21/2019 Inactive Patient requests 90 days supply levothyroxine 50 mcg tablet RxNorm: 134455 1 Tablet(s) PO QD 201811/09/2019 Inactive isosorbide mononitrate ER 30 mg tablet,extended release 24 h r RxNorm: 617296 Tablet(s) 1 TABLET(S) PO NEEDED 06/27/2019 08/15/2019 Inactive Patient requests 90 days supply isosorbide mononitrate ER 30 mg tablet,extended release 24 h r RxNorm: 362065 1 Tablet(s) PO QD as needed 06/27/2019 06/27/2019 Inactive Neris ent requests 90 days supply carvedilol 25 mg tablet RxNorm: 661011 1 TABLET(S) PO BID 06/27/2019 08/22/2019 Inactive furosemide 40 mg tablet RxNorm: 007589 1 Tablet(s) PO QAM 06/21/2019 12/13/2019 Inactive carvedilol 25 mg tablet RxNorm: 427788 1 Tablet(s) PO BID 05/13/2019 06/26/2019 Inactive Xanax 0.25 mg tablet RxNorm: 249679 1/2 Tablet(s) PO Q6H as needed 05/13/2019 09/07/2019 Inactive levothyroxine 50 mcg tablet RxNorm: 726670 1 Tablet(s) PO QD 201808/07/2019 Inactive losartan 50 mg tablet RxNorm: 326767 1 Tablet(s) PO QD 04/26/2019 Inactive losartan 50 mg tablet RxNorm: 030119 1 Tablet(s) PO QD 04/20/201901/2019 Inactive pravastatin 40 mg tablet RxNorm: 400268 1 Tablet(s) PO QD 04/07/2019 06/05/2019 Inactive isosorbide mononitrate ER 30 mg tablet,extended release 24 h r RxNorm: 669730 1 Tablet(s) PO as needed 04/07/2019 04/06/2019 Inactive isosorbide mononitrate ER 30 mg tablet,extended release 24 h r RxNorm: 271391 1 TABLET(S) PO NEEDED 04/07/2019 06/26/2019 Inactive Patient requests 90 days supply losartan 50 mg tablet RxNorm: 951668 1 Tablet(s) PO QD 03/22/2019 Inactive Prolia subcutaneous RxNorm: 918182 subcutaneous 02/19/2021 A ctive carvedilol 25 mg tablet RxNorm: 662560 1 Tablet(s) PO BID 05/13/2019 05/12/2019 Inactive losartan 50 mg tablet RxNorm: 607409 1 Tablet(s) PO QD 03/22/2019 Inactive Ventolin HFA 90 mcg/actuation aerosol inhaler RxNorm: 750895 1-2 Puff(s) INH as needed 09/08/2019 09/07/2019 Inactive furosemide 40 mg tablet RxNorm: 579310 1 Tablet(s) PO QAM 06/21/2019 06/20/2019 Inactive pravastatin 40 mg tablet RxNorm: 949929 1 Tablet(s) PO QD 04/07/2019 04/06/2019 Inactive Coumadin 2 mg tablet RxNorm: 606609 1 Tablet(s) PO Mon, Fri, Sat and Sun then 2 tablets (4mg) on , Thu and 10/11/2019 10/10/2019 Inactive isosorbide mononitrate ER 30 mg tablet,extended release 24 h r RxNorm: 332827 Tablet(s) PO as needed 04/07/2019 04/06/2019 Inactive Women's Multivitamin 18 mg iron-400 mcg-500 mg tablet RxNorm : 1 Tablet(s) PO QD 09/08/2019 09/07/2019 Inactive Vitamin D3 1000 units Capsule RxNorm: 3 Capsule(s) PO QD 9 09/07/2019 Inactive vitamin B complex capsule RxNorm: 1 Capsule(s) PO QD 09/08/2019 Inactive potassium chloride ER 10 mEq capsule,extended release RxNorm : 169884 1 Capsule(s) PO QD 09/21/2019 09/20/2019 Inactive levothyroxine 50 mcg tablet RxNorm: 114613 1 Tablet(s) PO QD 201804/25/2019 Inactive Medication Administered No Medication Administered data Immunizations Vaccine Codes Date Status Influenza CVX: 135 08/23/2021 Complete Influenza CVX: 135 07/06/2020 Pneumovax CVX: 33 02/03/2020 Influenza CVX: 135 07/02/2019 Results Observation Observation Code Item Item Code Result Date S ervice Location PT 8931176 PT 35.6 Seconds 08/23/2021 Unknow n PT [id number] INR 3.5 08/23/2021 Unknown PT [id number] PT 28.3 Seconds 07/19/2021 Unknow n PT [id number] INR 2.6 07/19/2021 Unknown COMPREHENSIVE METABOLIC 03545 AST 20 U/L 2020 Unknown COMPREHENSIVE METABOLIC 12936 ALT 16 U/L 2020 Unknown COMPREHENSIVE METABOLIC 52085 BUN 35 mg/dL 2020 Unknown COMPREHENSIVE METABOLIC 24370 ALBUMIN 4.1 g/dL 2020 Unknown COMPREHENSIVE METABOLIC 41132 CHLORIDE 105 mmol/L 06/20 Unknown COMPREHENSIVE METABOLIC 45769 Bili Total 1.1 mg/dL 06/20 Unknown COMPREHENSIVE METABOLIC 13064 ALK PHOS 103 U/L 2020 Unknown COMPREHENSIVE METABOLIC 58660 SODIUM 139 mmol/L 06/20 Unknown COMPREHENSIVE METABOLIC 50644 CREATININE 0.99 mg/dL 05/24 Unknown COMPREHENSIVE METABOLIC 55668 CALCIUM 8.8 mg/dL 2020 Unknown COMPREHENSIVE METABOLIC 70699 POTASSIUM 4.7 mmol/L 06/20 Unknown COMPREHENSIVE METABOLIC 58350 Total Protein 6.2 g/dL Unknown COMPREHENSIVE METABOLIC 55357 Glucose 83 mg/dL 2020 Unknown COMPREHENSIVE METABOLIC 02170 Bicarbonate 27 mmol/L 05/24 Unknown COMPREHENSIVE METABOLIC 58357 AGAP 7 mmol/L 2020 Unknown COMPLETE BLOOD COUNT [id number] WBC 4.5 10e9/L 06/20/20 21 Unknown COMPLETE BLOOD COUNT 2353333 RBC 3.99 10e12/L 2020 Unknown COMPLETE BLOOD COUNT [id number] HEMOGLOBIN 11.8 g/dL 06/20/20 21 Unknown COMPLETE BLOOD COUNT [id number] HEMATOCRIT 36.6 % 06/20/20 21 Unknown COMPLETE BLOOD COUNT [id number] MCV 91.7 fL 1 Unknown COMPLETE BLOOD COUNT [id number] MCH 29.6 pg 1 Unknown COMPLETE BLOOD COUNT 1858160 MCHC 32.2 g/dL 1 Unknown COMPLETE BLOOD COUNT 6009025 PLATELET COUNT 180 10e9/L Unknown COMPLETE BLOOD COUNT 6858286 Mean Plt Volume 11.1 fL Unknown COMPLETE BLOOD COUNT 6750994 Neut Auto 64.7 % 1 Unknown COMPLETE BLOOD COUNT 1943737 Lymph Auto 19.6 % 06/20/20 21 Unknown COMPLETE BLOOD COUNT [id number] Leake Auto 13.5 % 1 Unknown COMPLETE BLOOD COUNT 0585856 Eos Auto 1.8 % 1 Unknown COMPLETE BLOOD COUNT 0373296 RDW 15.1 % 1 Unknown COMPLETE BLOOD COUNT 9217334 Baso Auto 0.4 % 1 Unknown COMPLETE BLOOD COUNT 5493386 Neutrophil Abs 2.91 10e9/L Unknown COMPLETE BLOOD COUNT [id number] Lymphocyte Abs 0.88 10e9/L Unknown COMPLETE BLOOD COUNT 5674027 Monocyte Abs 0.61 10e9/L 05/24 Unknown COMPLETE BLOOD COUNT 7855519 Eosinophil Abs 0.08 10e9/L Unknown COMPLETE BLOOD COUNT 1317218 RDW-SD 49.5 fL 1 Unknown COMPLETE BLOOD COUNT [id number] Basophil Abs 0.02 10e9/L 05/24 Unknown GFR CALC 0733997 GFR Non Afr Amr 53 mL/min 06/20/2021 Unk nown GFR CALC [id number] GFR Afr Amr >60 mL/min 06/20/2021 Unknow n PT [id number] PT 27.4 Seconds 06/20/2021 Unknow n PT [id number] INR 2.5 06/20/2021 Unknown PT [id number] PT 25.8 Seconds 05/21/2021 Unknow n PT [id number] INR 2.3 05/21/2021 Unknown FREE T4 30376 T4 Free 1.19 ng/dL 04/11/2021 Unknown PT [id number] PT 33.6 Seconds 04/11/2021 Unknow n PT [id number] INR 3.3 04/11/2021 Unknown THYROID STIMULATING HORMONE 96852 TSH 3.912 uIU/mL 04/11/2021 Unknown PT [id number] PT 33.1 Seconds 03/15/2021 Unknow n PT [id number] INR 3.2 03/15/2021 Unknown PT [id number] PT 24.6 Seconds 05/23/2020 Unknow n PT [id number] INR 2.2 05/23/2020 Unknown PT [id number] PT 31.4 Seconds 10/26/2019 Unknow n PT [id number] INR 2.9 10/26/2019 Unknown PT [id number] PT 17.6 Seconds 10/11/2019 Unknow n PT [id number] INR 1.4 10/11/2019 Unknown PT [id number] PT 23.7 Seconds 09/08/2019 Unknow n PT [id number] INR 2.0 09/08/2019 Unknown PT [id number] PT 23.2 Seconds 07/29/2019 Unknow n PT [id number] INR 2.0 07/29/2019 Unknown PT [id number] PT 14.3 Seconds 07/18/2019 Unknow n PT [id number] INR 1.1 07/18/2019 [place] [address] Glucose 75 mg/dL 07/06 [place] [address] CREATININE 0.61 mg/dL [place] [address] BUN 15 mg/dL 07/06 [place] [address] SODIUM 142 mmol/L 06/23 [place] [address] POTASSIUM 4.0 mmol/L 06/23 [place] [address] CHLORIDE 106 mmol/L 06/23 [place] [address] Bicarbonate 28 mmol/[place] [address] AGAP 8 mmol/L 07/06 [place] [address] CALCIUM 9.3 mg/dL 07/06 Unknown PT [id number] PT 17.4 Seconds 07/06/2019 Unknow n PT [id number] INR 1.4 07/06/2019 Unknown GFR CALC 8968400 GFR Non Afr Amr >60 mL/min 07/06/2019 Un known GFR CALC 1017965 GFR Afr Amr >60 mL/min 07/06/2019 Unknow n COMPLETE BLOOD COUNT [id number] WBC 4.7 10e9/L 07/06/20 19 Unknown COMPLETE BLOOD COUNT [id number] RBC 4.19 10e12/L 2018 Unknown COMPLETE BLOOD COUNT 5632810 HEMOGLOBIN 12.6 g/dL 07/06/20 19 Unknown COMPLETE BLOOD COUNT [id number] HEMATOCRIT 39.4 % 07/06/20 19 Unknown COMPLETE BLOOD COUNT [id number] MCV 94.0 fL 9 Unknown COMPLETE BLOOD COUNT 9048585 MCH 30.1 pg 9 Unknown COMPLETE BLOOD COUNT 7964266 MCHC 32.0 g/dL 9 Unknown COMPLETE BLOOD COUNT 0834149 PLATELET COUNT 160 10e9/L Unknown COMPLETE BLOOD COUNT 4290223 Mean Plt Volume 11.0 fL Unknown COMPLETE BLOOD COUNT 8408353 Neut Auto 56.6 % 9 Unknown COMPLETE BLOOD COUNT [id number] Lymph Auto 27.0 % 07/06/20 19 Unknown COMPLETE BLOOD COUNT [id number] Leake Auto 13.7 % 9 Unknown COMPLETE BLOOD COUNT 6940422 RDW 14.6 % 9 Unknown COMPLETE BLOOD COUNT 6994999 Eos Auto 2.1 % 9 Unknown COMPLETE BLOOD COUNT 4717514 Baso Auto 0.6 % 9 Unknown COMPLETE BLOOD COUNT 1259852 Neutrophil Abs 2.66 10e9/L Unknown COMPLETE BLOOD COUNT 3529445 Lymphocyte Abs 1.27 10e9/L Unknown COMPLETE BLOOD COUNT [id number] Monocyte Abs 0.64 10e9/L 06/23 Unknown COMPLETE BLOOD COUNT 4004274 Eosinophil Abs 0.10 10e9/L Unknown COMPLETE BLOOD COUNT 7757081 RDW-SD 48.7 fL 9 Unknown COMPLETE BLOOD COUNT [id number] Basophil Abs 0.03 10e9/L 06/23 Unknown COMPLETE BLOOD COUNT 6193532 WBC 4.6 10e9/L 06/14/20 19 Unknown COMPLETE BLOOD COUNT [id number] RBC 4.16 10e12/L 2018 Unknown COMPLETE BLOOD COUNT 7321125 HEMOGLOBIN 12.6 g/dL 06/14/20 19 Unknown COMPLETE BLOOD COUNT 1472189 HEMATOCRIT 39.1 % 06/14/20 19 Unknown COMPLETE BLOOD COUNT 4224587 MCV 94.0 fL 9 Unknown COMPLETE BLOOD COUNT 9986800 MCH 30.3 pg 9 Unknown COMPLETE BLOOD COUNT 9484994 MCHC 32.2 g/dL 9 Unknown COMPLETE BLOOD COUNT 3767376 PLATELET COUNT 167 10e9/L Unknown COMPLETE BLOOD COUNT 3891872 Mean Plt Volume 10.9 fL Unknown COMPLETE BLOOD COUNT 5482452 Neut Auto 59.6 % 9 Unknown COMPLETE BLOOD COUNT [id number] Lymph Auto 24.1 % 06/14/20 19 Unknown COMPLETE BLOOD COUNT 5566821 Leake Auto 14.0 % 9 Unknown COMPLETE BLOOD COUNT 9057785 RDW 14.8 % 9 Unknown COMPLETE BLOOD COUNT 0165735 Eos Auto 1.9 % 9 Unknown COMPLETE BLOOD COUNT 3486233 Baso Auto 0.4 % 9 Unknown COMPLETE BLOOD COUNT 1958035 Neutrophil Abs 2.74 10e9/L Unknown COMPLETE BLOOD COUNT 4440981 Lymphocyte Abs 1.11 10e9/L Unknown COMPLETE BLOOD COUNT [id number] Monocyte Abs 0.64 10e9/L 05/24 Unknown COMPLETE BLOOD COUNT 7095055 Eosinophil Abs 0.09 10e9/L Unknown COMPLETE BLOOD COUNT 7249530 RDW-SD 49.3 fL 9 Unknown COMPLETE BLOOD COUNT [id number] Basophil Abs 0.02 10e9/L 05/24 Unknown PT [id number] PT 22.3 Seconds 06/14/2019 Unknow n PT [id number] INR 1.9 06/14/2019 Unknown COMPLETE BLOOD COUNT 0619983 WBC 4.0 10e9/L 05/13/20 19 Unknown COMPLETE BLOOD COUNT [id number] RBC 3.82 10e12/L 2018 Unknown COMPLETE BLOOD COUNT 8636931 HEMOGLOBIN 11.5 g/dL 05/13/20 19 Unknown COMPLETE BLOOD COUNT [id number] HEMATOCRIT 36.4 % 05/13/20 19 Unknown COMPLETE BLOOD COUNT 9053065 MCV 95.3 fL 9 Unknown COMPLETE BLOOD COUNT 4958696 MCH 30.1 pg 9 Unknown COMPLETE BLOOD COUNT 0721215 MCHC 31.6 g/dL 9 Unknown COMPLETE BLOOD COUNT 2740545 PLATELET COUNT 175 10e9/L Unknown COMPLETE BLOOD COUNT 8631834 Mean Plt Volume 10.5 fL Unknown COMPLETE BLOOD COUNT 6911353 Neut Auto 63.2 % 9 Unknown COMPLETE BLOOD COUNT 4825045 Lymph Auto 22.0 % 05/13/20 19 Unknown COMPLETE BLOOD COUNT 3902560 Leake Auto 12.1 % 9 Unknown COMPLETE BLOOD COUNT 1237619 Eos Auto 2.2 % 9 Unknown COMPLETE BLOOD COUNT 7409465 RDW 14.9 % 9 Unknown COMPLETE BLOOD COUNT 6840284 Baso Auto 0.5 % 9 Unknown COMPLETE BLOOD COUNT 7415630 Neutrophil Abs 2.53 10e9/L Unknown COMPLETE BLOOD COUNT 2194076 Lymphocyte Abs 0.88 10e9/L Unknown COMPLETE BLOOD COUNT 0584024 Monocyte Abs 0.48 10e9/L 04/24 Unknown COMPLETE BLOOD COUNT 7763168 Eosinophil Abs 0.09 10e9/L Unknown COMPLETE BLOOD COUNT 5811180 RDW-SD 49.6 fL 9 Unknown COMPLETE BLOOD COUNT 2073775 Basophil Abs 0.02 10e9/L 04/24 Unknown COMPREHENSIVE METABOLIC 16433 AST 18 U/L 2018 Unknown COMPREHENSIVE METABOLIC 46843 ALT 14 U/L 2018 Unknown COMPREHENSIVE METABOLIC 12918 BUN 15 mg/dL 2018 Unknown COMPREHENSIVE METABOLIC 12636 ALBUMIN 4.0 g/dL 2018 Unknown COMPREHENSIVE METABOLIC 33964 CHLORIDE 108 mmol/L 05/13 Unknown COMPREHENSIVE METABOLIC 39571 Bili Total 0.9 mg/dL 05/13 Unknown COMPREHENSIVE METABOLIC 98116 ALK PHOS 84 U/L 2018 Unknown COMPREHENSIVE METABOLIC 37192 SODIUM 142 mmol/L 05/13 Unknown COMPREHENSIVE METABOLIC 89571 CREATININE 0.72 mg/dL 04/24 Unknown COMPREHENSIVE METABOLIC 11142 CALCIUM 8.9 mg/dL 2018 Unknown COMPREHENSIVE METABOLIC 42232 POTASSIUM 4.0 mmol/L 05/13 Unknown COMPREHENSIVE METABOLIC 78091 Total Protein 5.5 g/dL Unknown COMPREHENSIVE METABOLIC 19039 Glucose 95 mg/dL 2018 Unknown COMPREHENSIVE METABOLIC 06922 Bicarbonate 27 mmol/L 04/24 Unknown COMPREHENSIVE METABOLIC 79948 AGAP 7 mmol/L 2018 Unknown GFR CALC [id number] GFR Non Afr Amr >60 mL/min 05/13/2019 Un known GFR CALC [id number] GFR Afr Amr >60 mL/min 05/13/2019 Unknow n THYROID STIMULATING HORMONE 62927 TSH 2.669 uIU/mL 05/13/2019 Unknown FREE T4 55046 T4 Free 1.19 ng/dL 05/13/2019 Unknown PT [id number] PT 24.2 Seconds 05/06/2019 Unknow n PT [id number] INR 2.1 05/06/2019 Unknown PT [id number] PT 24.1 Seconds 03/08/2019 Unknow n PT [id number] INR 2.9 03/08/2019 Unknown Procedures Procedure Codes Date FLU VACC PRSV FREE INC ANTIG 65 AND OLDER CPT-4: 51355 08/23/2021 ROUTINE VENIPUNCTURE CPT-4: 76026 08/23/2021 PROTHROMBIN TIME CPT-4: 50096 08/23/2021 FLU VACC PRSV FREE INC ANTIG 65 AND OLDER CPT-4: 42580 08/23/2021 ADMIN INFLUENZA VIRUS VAC CPT-4: G0008 08/23/2021 ROUTINE VENIPUNCTURE CPT-4: 13191 07/19/2021 PROTHROMBIN TIME CPT-4: 90896 07/19/2021 ROUTINE VENIPUNCTURE CPT-4: [address]16 06/20/2021 COMPREHEN METABOLIC PANEL CPT-4: 60999 06/20/2021 COMPLETE CBC W/AUTO DIFF WBC CPT-4: 58936 06/20/2021 PROTHROMBIN TIME CPT-4: 64468 06/20/2021 PT CPT-4: 5944531 05/16/2021 ROUTINE VENIPUNCTURE CPT-4: 17715 05/16/2021 ROUTINE VENIPUNCTURE CPT-4: 81366 04/11/2021 PROTHROMBIN TIME CPT-4: 63591 04/11/2021 ASSAY OF FREE THYROXINE CPT-4: 14483 04/11/2021 ASSAY THYROID STIM HORMONE CPT-4: 75305 04/11/2021 ROUTINE VENIPUNCTURE CPT-4: 95596 03/15/2021 PT CPT-4: 3718985 03/15/2021 ROUTINE VENIPUNCTURE CPT-4: 54541 02/22/2021 COMPREHEN METABOLIC PANEL CPT-4: 58592 02/22/2021 ASSAY OF FREE THYROXINE CPT-4: 50132 02/22/2021 ASSAY THYROID STIM HORMONE CPT-4: 50880 02/22/2021 COMPLETE CBC W/AUTO DIFF WBC CPT-4: 45055 02/22/2021 PROTHROMBIN TIME CPT-4: 56233 02/22/2021 LIPID PANEL CPT-4: 86175 02/22/2021 PPPS, subseq visit CPT-4: G0439 09/26/2020 ROUTINE VENIPUNCTURE CPT-4: 34341 05/23/2020 PROTHROMBIN TIME CPT-4: 22668 05/23/2020 ROUTINE VENIPUNCTURE CPT-4: 92608 01/20/2020 PT CPT-4: 9456079 01/20/2020 ROUTINE VENIPUNCTURE CPT-4: 39872 12/15/2019 PROTHROMBIN TIME CPT-4: 07162 12/15/2019 ROUTINE VENIPUNCTURE CPT-4: 38710 11/10/2019 PROTHROMBIN TIME CPT-4: 94974 11/10/2019 PROTHROMBIN TIME CPT-4: 51247 10/26/2019 ROUTINE VENIPUNCTURE CPT-4: 64909 10/26/2019 ROUTINE VENIPUNCTURE CPT-4: 50273 10/11/2019 PT CPT-4: 4278534 10/11/2019 PPPS, initial visit CPT-4: G0438 09/20/2019 ROUTINE VENIPUNCTURE CPT-4: 52501 09/08/2019 PT CPT-4: 0028259 09/08/2019 THER/PROPH/DIAG INJ SC/IM CPT-4: 97961 09/08/2019 TRIAMCINOLONE ACET INJ NOS CPT-4: J3301 09/08/2019 ROUTINE VENIPUNCTURE CPT-4: 65007 07/29/2019 PT CPT-4: 4245114 07/29/2019 ROUTINE VENIPUNCTURE CPT-4: 54817 07/18/2019 PT CPT-4: 3696833 07/18/2019 METABOLIC PANEL TOTAL CA CPT-4: 58532 07/06/2019 COMPLETE CBC W/AUTO DIFF WBC CPT-4: 01302 07/06/2019 PROTHROMBIN TIME CPT-4: 08249 07/06/2019 ROUTINE VENIPUNCTURE CPT-4: 92265 06/14/2019 PROTHROMBIN TIME CPT-4: 58412 06/14/2019 COMPLETE CBC W/AUTO DIFF WBC CPT-4: 66867 06/14/2019 ROUTINE VENIPUNCTURE CPT-4: 40171 05/13/2019 COMPREHEN METABOLIC PANEL CPT-4: 63423 05/13/2019 COMPLETE CBC W/AUTO DIFF WBC CPT-4: 55079 05/13/2019 ASSAY THYROID STIM HORMONE CPT-4: 18986 05/13/2019 ASSAY OF FREE THYROXINE CPT-4: 10665 05/13/2019 PT CPT-4: 9353582 05/06/2019 ROUTINE VENIPUNCTURE CPT-4: 46596 05/06/2019 PT CPT-4: 5710118 04/07/2019 ROUTINE VENIPUNCTURE CPT-4: 15724 04/07/2019 ROUTINE VENIPUNCTURE CPT-4: 00941 03/08/2019 PROTHROMBIN TIME CPT-4: 21391 03/08/2019 Vital Signs Date Vital 08/20/2021 Blood Pressure 1: 127/69 Code: 8480-6 Heart Rate 1: 84 bpm Respiratory Rate: 17 bpm SpO2: 98% Temperature: 36.7 (C) / 98.1 (F) We ight: 208 lbs Code: 33897-3 05/16/2021 Blood Pressure 1: 136/64 Code: 8480-6 BMI: 37.0 Code: 69752-6 Heart Rate 1: 61 bpm Height: 5'3" Code: 8302-2 Respiratory Rate: 16 bpm SpO2: 98% Temperature: 36.2 (C) / 97.1 (F) Weight: 212 lbs Code: 65420-3 03/05/2021 Blood Pressure 1: 134/76 Code: 8480-6 Heart Rate 1: 66 bpm Respiratory Rate: 16 bpm SpO2: 100% Temperature: 37.1 (C) / 98.7 (F) We ight: 203 lbs Code: 00164-6 02/19/2021 Blood Pressure 1: 126/70 Code: 8480-6 BMI: 35.4 Code: 96773-3 Heart Rate 1: 72 bpm Height: 5'3" Code: 8302-2 Respiratory Rate: 16 bpm SpO2: 99% Temperature: 36.3 (C) / 97.3 (F) Weight: 203 lbs Code: 62398-3 01/16/2021 Blood Pressure 1: 112/74 Code: 8480-6 Heart Rate 1: 76 bpm Respiratory Rate: 20 bpm Temperature: 36.7 (C) / 98.0 (F) Weight: 205 lbs Code : 53669-2 11/19/2020 Blood Pressure 1: 120/78 Code: 8480-6 Heart Rate 1: 88 bpm Temperature: 36.6 (C) / 97.8 (F) 11/12/2020 Blood Pressure 1: 110/57 Code: 8480-6 Heart Rate 1: 68 bpm Respiratory Rate: 15 bpm SpO2: 100% Weight: 202 lbs Code: 74173 -7 10/12/2020 Blood Pressure 1: 114/70 Code: 8480-6 Heart Rate 1: 84 bpm Respiratory Rate: 18 bpm SpO2: 98% Temperature: 36.7 (C) / 98.0 (F) 09/26/2020 Blood Pressure 1: 120/72 Code: 8480-6 BMI: 35.2 Code: 68648-4 Heart Rate 1: 76 bpm Height: 5'3" Code: 8302-2 Respiratory Rate: 20 bpm SpO2: 97% Temperature: 36.7 (C) / 98.0 (F) Weight: 202 lbs Code: 00362-4 08/27/2020 Blood Pressure 1: 126/82 Code: 8480-6 Heart Rate 1: 80 bpm Respiratory Rate: 20 bpm Temperature: 36.2 (C) / 97.1 (F) Weight: 198 lbs Code : 82739-0 05/23/2020 Blood Pressure 1: 120/78 Code: 8480-6 Heart Rate 1: 68 bpm Respiratory Rate: 20 bpm SpO2: 97% Temperature: 36.4 (C) / 97.5 (F) We ight: 200 lbs Code: 37072-7 05/02/2020 Blood Pressure 1: 133/81 Code: 8480-6 Heart Rate 1: 74 bpm Weight: 202 lbs Code: 15563-2 12/15/2019 Blood Pressure 1: 126/82 Code: 8480-6 Heart Rate 1: 64 bpm Respiratory Rate: 20 bpm SpO2: 97% Temperature: 36.6 (C) / 97.8 (F) We ight: 201 lbs Code: 29994-5 11/03/2019 Blood Pressure 1: 142/82 Code: 8480-6 [...] / 98.1 (F) Weight: 204 lbs Code: 37645-5 09/20/2019 Blood Pressure 1: 122/68 Code: 8480-6 BMI: 35.0 Code: 82192-1 Heart Rate 1: 72 bpm Height: 5'3" Code: 8302-2 Respiratory Rate: 18 bpm SpO2: 95% Temperature: 36.8 (C) / 98.3 (F) Weight: 201 lbs Code: 81348-5 09/08/2019 Blood Pressure 1: 118/72 Code: 8480-6 Heart Rate 1: 82 bpm SpO2: 97% Temperature: 36.3 (C) / 97.4 (F) Weight: 208 lbs Code: 43540-4 06/14/2019 Blood Pressure 1: 128/84 Code: 8480-6 Heart Rate 1: 72 bpm Respiratory Rate: 20 bpm SpO2: 98% Temperature: 36.7 (C) / 98.1 (F) We ight: 209 lbs Code: 70392-8 05/13/2019 Blood Pressure 1: 144/90 Code: 8480-6 Heart Rate 1: 88 bpm Respiratory Rate: 24 bpm SpO2: 96% Temperature: 37.1 (C) / 98.8 (F) We ight: 210 lbs Code: 90850-3 05/02/2019 Blood Pressure 1: 128/80 Code: 8480-6 Heart Rate 1: 84 bpm Respiratory Rate: 20 bpm SpO2: 95% Temperature: 36.6 (C) / 97.9 (F) We ight: 209 lbs Code: 73387-4 03/22/2019 Blood Pressure 1: 122/70 Code: 8480-6 art Rate 1: 85 bpm 03/08/2019 Blood Pressure 1: 114/78 Code: 8480-6 BMI: 36.1 Code: 52052-1 Heart Rate 1: 76 bpm Height: 5'3" Code: 8302-2 Respiratory Rate: 20 bpm SpO2: 97% Temperature: 37.1 (C) / 98.8 (F) Weight: 207 lbs Code: 39093-6 Functional Status No Functional Status data Reason [...] visit Encounters Encounter Performer Location Codes Date ([id number]) NURSE/OUTPATIENT VISIT EST Diagnosis: Chronic atrial fibrillation[ICD10: I48.20] Diagnosis: Long-term (current) use of anticoagulants, INR goal 2.0-3.0[ICD10: Z79.01] Diagnosis: FLU VACCINE[ICD10: Z23] Jeanie Hernandez [employer]ON [employer] CPT-4: 54125 08/23/2021 ([id number]) OFFICE/OUTPATIENT VISIT EST Diagnosis: Breast pain, left[ICD10: N64.4] Diagnosis: Left breast lump[ICD10: N63.20] Remedios Lenzservandogerald JEANIE BLACK [employer] CPT-4: 39547 08/20/2021 ([id number]) NURSE/OUTPATIENT VISIT EST Diagnosis: Long-term (current) use of anticoagulants, INR goal 2.0-3.0[ICD10: Z79.01] Jeanie Hernandez [employer]ATIE [employer] CPT-4: 79200 07/19/2021 ([id number]) NURSE/OUTPATIENT VISIT EST Diagnosis: Essential (primary) hypertension[ICD10: I10] Diagnosis: Chronic atrial fibrillation[ICD10: I48.20] Diagnosis: Long-term (current) use of anticoagulants, INR goal 2.0-3.0[ICD10: Z79.01] Diagnosis: Anemia, unspecified[ICD10: D64.9] Jeanie Parra David BLACK DO [facility] CPT-4: 77415 06/20/2021 ([id number]) OFFICE/OUTPATIENT VISIT EST Diagnosis: Long-term (current) use of anticoagulants, INR goal 2.0-3.0[ICD10: Z79.01] Diagnosis: Essential (primary) hypertension[ICD10: I10] Diagnosis: Chronic congestive heart failure with left ventricular diastolic dysfunction[ICD10: I50.32] Diagnosis: Severe obesity (BMI 35.0-39.9) with comorbidity[ICD10: E66.01] Diagnosis: Chronic atrial fibrillation[ICD10: I48.20] Diagnosis: Obstructive sleep apnea syndrome[ICD10: G47.33] Remedios Buenrostroanyagerald JENNINGSLINE OfeAxel WAYNE [employer] [facility] CPT-4: 06838 05/16/2021 ([id number]) NURSE/OUTPATIENT VISIT EST Diagnosis: Hypothyroidism, unspecified[ICD10: E03.9] Diagnosis: Long-term (current) use of anticoagulants, INR goal 2.0-3.0[ICD10: Z79.01] Jeanie CONNELL OfeAxel [employer] [facility] CPT-4: 99454 04/11/2021 ([id number]) NURSE/OUTPATIENT VISIT EST Diagnosis: Long-term (current) use of anticoagulants, INR goal 2.0-3.0[ICD10: Z79.01] Jeanie Doniskatie CONNELL OfeAxel WAYNE [facility] CPT-4: 39659 03/15/2021 ([id number]) OFFICE/OUTPATIENT VISIT EST Diagnosis: Essential hypertension[ICD10: I10] Diagnosis: Cheilitis[ICD10: K13.0] Diagnosis: Pulmonary hypertension[ICD10: I27.20] Jeanie AGUILERA OfeAxel [employer] [facility] CPT-4: 96337 03/05/2021 ([id number]) NURSE/OUTPATIENT VISIT EST Diagnosis: Essential (primary) hypertension[ICD10: I10] Diagnosis: Hypothyroidism, unspecified[ICD10: E03.9] Diagnosis: Long-term (current) use of anticoagulants, INR goal 2.0-3.0[ICD10: Z79.01] Diagnosis: Mixed hyperlipidemia[ICD10: E78.2] Jeanie JUAREZ RAFI MARTENDALBERTA MCCURDY [facility] CPT-4: 33828 02/22/2021 ([id number]) OFFICE/OUTPATIENT VISIT EST Diagnosis: Cheilitis[ICD10: K13.0] Diagnosis: Encounter for medication review and counseling[ICD10: Z71.89] Diagnosis: Long-term (current) use of anticoagulants, INR goal 2.0-3.0[ICD10: Z79.01] Diagnosis: Hypothyroidism, unspecified[ICD10: E03.9] Diagnosis: Mixed hyperlipidemia[ICD10: E78.2] Diagnosis: Severe obesity (BMI 35.0-39.9) with comorbidity[ICD10: E66.01] Diagnosis: Chronic congestive heart failure with left ventricular diastolic dysfunction[ICD10: I50.32] Remedios Dirk JEANIE MARTENDER [employer] [facility] CPT- 4: 75160 02/19/2021 ([id number]) OFFICE/OUTPATIENT VISIT EST Diagnosis: Cheilitis[ICD10: K13.0] Jannette CONNELL S. DONISND ALBERTA [employer] [facility] CPT-4: 15678 01/16/2021 ([id number]) OFFICE/OUTPATIENT VISIT EST Diagnosis: Hypotension[ICD10: I95.9] Diagnosis: Dizziness[ICD10: R42] Jannette CONNELL S. DONISNDER DO C CPT-4: 14510 11/12/2020 ([id number]) OFFICE/OUTPATIENT VISIT EST Diagnosis: Thoracic back pain[ICD10: M54.6] Diagnosis: Dizziness[ICD10: R42] Jannette Thakur. DONISNDER DO LL C CPT-4: 04077 10/12/2020 ([id number]) OFFICE/OUTPATIENT VISIT EST Diagnosis: Chronic atrial fibrillation[ICD10: I48.20] Diagnosis: Chronic airway obstruction, not elsewhere classified[ICD10: J44.9] Diagnosis: Essential hypertension[ICD10: I10] Jeanie MCKEE SAxel MARTENDER [employer] CPT-4: 63302 08/27/2020 ([id number]) OFFICE/OUTPATIENT VISIT EST Diagnosis: Essential (primary) hypertension[ICD10: I10] Diagnosis: Chronic atrial fibrillation[ICD10: I48.20] Diagnosis: COPD (chronic obstructive pulmonary disease)[ICD10: J44.9] Diagnosis: Dyspnea[ICD10: R06.00] Diagnosis: Left hip pain[ICD10: M25.552] Jeanie BLACK DO [employer] CPT-4: 66294 05/23/2020 ([id number]) NURSE/OUTPATIENT VISIT EST Diagnosis: Essential (primary) hypertension[ICD10: I10] Jeanie BLACK DO [employer] CPT-4: 72402 05/02/2020 ([id number]) OFFICE/OUTPATIENT VISIT EST Diagnosis: COPD (chronic obstructive pulmonary disease)[ICD10: J44.9] Diagnosis: Chronic atrial fibrillation[ICD10: I48.20] Diagnosis: Essential hypertension[ICD10: I10] Jeanie Black [facility] CPT-4: 29714 03/20/2020 ([id number]) NURSE/OUTPATIENT VISIT EST Diagnosis: Long-term (current) use of anticoagulants, INR goal 2.0-3.0[ICD10: Z79.01] Jeanie BLACK [employer] CPT-4: 58985 01/20/2020 ([id number]) OFFICE/OUTPATIENT VISIT EST Diagnosis: COPD (chronic obstructive pulmonary disease)[ICD10: J44.9] Diagnosis: Long-term (current) use of anticoagulants, INR goal 2.0-3.0[ICD10: Z79.01] Diagnosis: History of recent fall[ICD10: Z91.81] Jeanie BLACK [employer] CPT-4: 57569 12/15/2019 ([id number]) NURSE/OUTPATIENT VISIT EST Diagnosis: Long-term (current) use of anticoagulants, INR goal 2.0-3.0[ICD10: Z79.01] Jeanie BLACK [employer] CPT-4: 72274 11/10/2019 ([id number]) OFFICE/OUTPATIENT VISIT EST Diagnosis: Post concussion syndrome[ICD10: F07.81] Diagnosis: Head contusion[ICD10: S00.93XA] Diagnosis: Chronic airway obstruction, not elsewhere classified[ICD10: J44.9] Jeanie Doniskatie CONNELL OfeAxel WAYNE [employer] CPT-4: 74124 11/03/2019 ([id number]) OFFICE/OUTPATIENT VISIT EST Diagnosis: Fall as cause of accidental injury at home as place of occurrence[ICD10: W19.XXXA] Diagnosis: Headache[ICD10: R51] Diagnosis: Essential (primary) hypertension[ICD10: I10] Diagnosis: Long-term (current) use of anticoagulants, INR goal 2.0-3.0[ICD10: Z79.01] Diagnosis: Ecchymosis of left eye[ICD10: S05.12XA] Jannette Mayen PÉREZ HOPEMARLENY OfeAxel WAY[facility] [employer] CPT-4: 62272 10/31/2019 ([id number]) NURSE/OUTPATIENT VISIT EST Diagnosis: Long-term (current) use of anticoagulants, INR goal 2.0-3.0[ICD10: Z79.01] Jeanie CONNELL OfeAxel [employer] CPT-4: 13402 10/26/2019 ([id number]) OFFICE/OUTPATIENT VISIT EST Diagnosis: Long-term (current) use of anticoagulants, INR goal 2.0-3.0[ICD10: Z79.01] Diagnosis: Pain in right arm[ICD10: M79.601] Diagnosis: Radiculopathy of arm[ICD10: M54.10] Jannette Aguilarelva ORTEZHOPEWalt HAMILTON David BLACK [employer] CPT-4: 63720 10/11/2019 ([id number]) OFFICE/OUTPATIENT VISIT EST Diagnosis: Long-term (current) use of anticoagulants, INR goal 2.0-3.0[ICD10: Z79.01] Diagnosis: Sinusitis[ICD10: J32.9] Diagnosis: Pain in right arm[ICD10: M79.601] Jannette Jonespeg Parra Ofe[employer]el WAYNE [employer] CPT-4: 93433 09/08/2019 ([id number]) NURSE/OUTPATIENT VISIT EST Diagnosis: Chronic atrial fibrillation[ICD10: I48.2] Diagnosis: Encounter for therapeutic drug level monitoring[ICD10: Z51.81] Jeanie Wayne BLACK [employer] [facility] CPT-4: 95590 07/29/2019 ([id number]) NURSE/OUTPATIENT VISIT EST Diagnosis: Chronic atrial fibrillation[ICD10: I48.2] Diagnosis: Encounter for therapeutic drug level monitoring[ICD10: Z51.81] Jeanie BLACK DO [facility] CPT-4: 77014 07/18/2019 ([id number]) NURSE/OUTPATIENT VISIT EST Diagnosis: Encounter for therapeutic drug level monitoring[ICD10: Z51.81] Diagnosis: Chronic atrial fibrillation[ICD10: I48.2] Diagnosis: Essential (primary) hypertension[ICD10: I10] Jeanie BLACK DO [facility] CPT-4: 93626 07/06/2019 ([id number]) OFFICE/OUTPATIENT VISIT EST Diagnosis: Encounter for therapeutic drug level monitoring[ICD10: Z51.81] Diagnosis: Anemia, unspecified[ICD10: D64.9] Diagnosis: Bitten by dog, sequela[ICD10: W54.0XXS] 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] Jeanie BLACK [employer] [facility] CPT-4: 56062 06/14/2019 ([id number]) OFFICE/OUTPATIENT VISIT EST Diagnosis: Bitten by dog, sequela[ICD10: W54.0XXS] Diagnosis: Other fatigue[ICD10: R53.83] Diagnosis: Hypothyroidism, unspecified[ICD10: E03.9] Diagnosis: Muscle weakness (generalized)[ICD10: M62.81] Diagnosis: Generalized anxiety disorder[ICD10: F41.1] Jannette BLACK [employer] [facility] CPT-4: 05564 05/13/2019 ([id number]) NURSE/OUTPATIENT VISIT EST Diagnosis: Encounter for therapeutic drug level monitoring[ICD10: Z51.81] Jeanie BLACK DO [facility] CPT-4: 33510 05/06/2019 ([id number]) OFFICE/OUTPATIENT VISIT EST Diagnosis: Bitten by dog, sequela[ICD10: W54.0XXS] Diagnosis: Pain in right wrist[ICD10: M25.531] Diagnosis: Abrasion of right upper arm, sequela[ICD10: S40.811S] Diagnosis: Abrasion of left upper arm, sequela[ICD10: S40.812S] Jannette Mayen JEANIE OfeAxel WAYNE [employer] CPT-4: 07977 05/02/2019 ([id number]) NURSE/OUTPATIENT VISIT EST Diagnosis: Encounter for therapeutic drug level monitoring[ICD10: Z51.81] Jeanie CONNELL OfeAxel [facility] CPT-4: 21173 04/07/2019 ([id number]) OFFICE/OUTPATIENT VISIT NEW Diagnosis: Encounter for therapeutic drug level monitoring[ICD10: Z51.81] Diagnosis: Chronic atrial fibrillation[ICD10: I48.2] Diagnosis: Essential (primary) hypertension[ICD10: I10] Diagnosis: Abnormal findings on diagnostic imaging of heart and coronary circulation[ICD10: R93.1] Diagnosis: Other forms of dyspnea[ICD10: R06.09] Diagnosis: Hypothyroidism, unspecified[ICD10: E03.9] Diagnosis: Mixed hyperlipidemia[ICD10: E78.2] Jeanie MCKEE OfeAxel [facility] CPT-4: 87746 03/08/2019 Plan of Care Planned Activity Notes Codes Status Date Appointment: eJanie Black WPtel: [address] [place] [address] US LAB 08/23/2021 Visit Plan: 08/20/2021 Visit Diagnosis Plan: Left breast lump Discussion: Jonas [place] get US of left breast and soft tissue under breast and f/u with results. F/U for sooner for concerns. ICD-9 : 611.72 ICD-10 : N63.20 08/20/2021 Appointment: Jeanie Black WPtel: [address] [place], [place] [phone] US CANCELED 08/20/2021 Appointment: Remedios Cavazos WPtel: [address] [place], [place] [phone] ACUTE ILLNESS 08/20/2021 Patient Education: Patient Medication Summary Completed 08/20/2021 Appointment: Jeanie Black WPtel: [address] [place], [place] [phone] US see note in chart from 08/08/21 (km) CANCELED 08/08/2021 Appointment: Jeanie Black WPtel: [phone] [facility] US LAB 07/19/2021 Appointment: Jeanie Black WPtel: [phone] [facility] US LAB 06/20/2021 Visit Diagnosis Plan: Severe obesity (BMI 35.0-39.9) w ith comorbidity Discussion: Discussed diet and exercise ICD-9 : 278.01 ICD-10 : E66.01 05/16/2021 Visit Diagnosis Plan: Obstructive sleep apnea syndrome Discussion: Per pulbautista note- order for bipap sent to [facility]- will call them to check, patient states she has not been contacted regarding this yet ICD-9 : 327.23 ICD-10 : G47.33 05/16/2021 Visit Diagnosis Plan: Chronic atrial fibrillation Disc ussion: stable ICD-9 : 427.31 ICD-10 : I48.20 05/16/2021 Visit Diagnosis Plan: Chronic congestive heart failure with left ventricular diastolic dysfunction Discussion: Per cira- continue isosorbid e ER 30 mg and [...] 05/16/2021 Appointment: Remedios Cavazos WPtel: [phone] [facility] US MEDICATION REVIEW 05/16/2021 Patient Education: Patient Medication Summary Completed 05/16/2021 Patient Education: isosorbide mononitrate- [employer] Coupon [id number] https://www.[employer]/samplemd/resources/getResource/61/[email or web address]-g444-120o-a2 Completed 05/16/2021 Patient Education: High Blood Pressure Co mpleted 05/16/2021 Appointment: Jeanie Black WPtel: [address] [place], [place] [phone] US LAB 04/11/2021 Appointment: Jeanie Black WPtel: [address] [place], [place] [phone] US CANCELED 03/27/2021 Appointment: Jeanie Black WPtel: [address] [place], [place] [phone] US LAB 03/15/2021 Visit Diagnosis Plan: Pulmonary [...] : I10 03/05/2021 Appointment: Jeanie Black WPtel: [address] [place], [place] [id number] US FOLLOW UP 03/05/2021 Patient Education: spironolactone- [employer] C[employer]on 1 [id number] https://www.[employer]/samplemd/resources/getResource/61/[email or web address]-6f55-7z Completed 03/05/2021 Appointment: Jeanie Black WPtel: [address] [place], [place] [id number] US LAB 02/22/2021 Visit Diagnosis Plan: Cheilitis [...] 02/19/2021 Appointment: [facility] [phone] [facility] [facility] 02/19/2021 Patient Education: Patient Medication Summary Completed 02/19/2021 Visit Diagnosis Plan: Cheilitis Discussion: symptoms s tarted after starting famotidine and spironolactone. discussed with patient that could be cheilitis vs angioedema so instructed to stop the spironolactone and famotidine and phil morel prescribed to take as directed. samples of eucrisa given to be used bid. call office on thursday with update but to ED after hours with worsening symptoms/tongue swelling/dysphagia etc. ICD-9 : 528.5 ICD-10 : K13.0 01/16/2021 Appointment: Jannette Mayen [address] [place] [address] ACUTE ILLNESS 01/16/2021 Appointment: Jeanie Black WPtel: [phone] [place] [id number] BP CHECK 11/19/2020 Visit Diagnosis Plan: Hypotension [...] ICD-10 : I95.9 11/12/2020 Appointment: Jannette Mayen [address] [place] [address] ACUTE ILLNESS 11/12/2020 Visit Diagnosis Plan: Thoracic back pain Discussion: w alvarado send order for PT through [facility]. call office with any new or worsening [...] ICD-10 : R42 10/12/2020 Appointment: Jannette Mayen [address] [place], [place] [id number] ACUTE ILLNESS 10/12/2020 Visit Diagnosis Plan: Chronic atrial fibrillation Disc ussion: Following routinely with cardiology ICD-9 : 427.31 ICD-10 : I48.20 09/26/2020 Visit Diagnosis Plan: Essential (primary) hypertension Discussion: Stable ICD-9 : 401.9 ICD-10 : I10 09/26/2020 Visit Diagnosis Plan: Encounter for [facility] adult medical examination without abnormal findings [...] I50.32 09/26/2020 Appointment: [facility]el[facility] [phone] [facility] [facility] Well Visit 09/26/2020 Care Plan: Referral Order SNOMED-CT : 30 [id number] Pending 09/26/2020 Visit Diagnosis Plan: Chronic airway [...] I48.20 08/27/2020 Appointment: Jean[facility] Black WPtel[facility] [phone] [facility] [facility] FOLLOW [facility] 08/27/2020 Visit Diagnosis Plan: [...] : I10 05/23/2020 Appointment: Jeanie Black WPtel: [address] [place] [address] FOLLOW UP 05/23/2020 Appointment: Jeanie Black WPtel: [address] [place], [place] [phone] NURSE SERVICES 05/02/2020 Visit Diagnosis Plan: Chronic [...] J44.9 03/20/2020 Appointment: Jeanie Black WPtel: [address] [place], [place] [phone] US TELEMEDICINE 03/20/2020 Patient Education: Coumadin- [employer] Coupon [id number] https://www.[employer]/samplemd/resources/getResource/61/4m853g73-89e6-3jfu-8r Completed 03/20/2020 Patient Education: Coumadin- [employer] Coupon [id number] https://www.[employer]/samplemd/resources/getResource/61/[email or web address]-9ew5-xh Completed 03/20/2020 Appointment: Jeanie Black WPtel: [address] [place], [place] [phone] US LAB 01/20/2020 Visit Diagnosis Plan: History of recent fall Discussio n: Healing well Doing balance class at [facility] Follow Up: 3 months ICD-9 : V15.88 ICD-10 : Z91.81 12/15/2019 Visit Diagnosis Plan: COPD (chronic obstructive pulmon valeria disease) Discussion: Continue pulmonary rehab ICD-9 : 496 ICD-10 : J44.9 12/15/2019 Visit Diagnosis Plan: Long-term (current ) use of anticoagulants, INR goal 2.0-3.0 Discussion: PT/INR drawn ICD-9 : V58.61 ICD-10 : Z79.01 12/15/2019 Appointment: Jaenie Black WPtel: [address] [place], [place] [phone] US FOLLOW UP 12/15/2019 Patient Education: Coumadin- [employer] Coupon [id number] https://www.[employer]k/resources/getResource/61/f985lmtf-up69-8jnt-3k Completed 12/15/2019 Appointment: Jeanie Black WPtel: [address] [place], [place] [phone] US LAB 11/10/2019 Visit Diagnosis Plan: Post [...] : J44.9 11/03/2019 Appointment: Jeanie Black WPtel: [address] [place], [place] [phone] US FOLLOW UP 11/03/2019 Care Plan: CT HEAD/BRAIN W/O DYE LOINC : 36949-7 Pending 11/01/2019 Visit Diagnosis Plan: Essential (primary) [...] ICD-10 : S05.12XA 10/31/2019 Appointment: Jannette Mayen [address] [place] [address] Hospital Follow Up 10/31/2019 Patient Education: High Blood Pressure Co mpleted 10/31/2019 Patient Education: losartan- [employer] Coupon [id number] [email or web address]/[email or web address] Completed 10/31/2019 Appointment: Jeanie Black WPtel: [phone] [phone] FOLLOW UP 10/26/2019 Visit Diagnosis Plan: Long-term [...] : M54.10 10/11/2019 Appointment: Jannette Mayen [address] [facility] 10/11/2019 Patient Education: cyclobenzaprine- [employer] Coupon [id number] [email or web address]/[email or web address] Completed 10/11/2019 Visit Diagnosis Plan: Bitten by dog, sequela Discussio n: Still seeing counselor Still doing therapy--left 4th finger still not agile enough to play violin and feels like pinched nerve in neck on right--dscussed stretches, massage, accupuncture---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 ICD-9 : 906.1 ICD-10 : W54.0XXS 09/20/2019 Visit Diagnosis Plan: Encounter for [facility] adult medical examination without abnormal findings [...] : E78.2 09/20/2019 Appointment: Jeanie Black WPtel: [facility]6 [facility] Annual Well Visit 09/20/2019 Visit Diagnosis [...] : Z79.01 09/08/2019 Appointment: Jannette Mayen [address] [place] [address] ACUTE ILLNESS 09/08/2019 Appointment: Jeanie Black WPtel: [address] [place] [address] US CANCELED 08/16/2019 Appointment: Jeanie Black WPtel: [address] [place] [address] US LAB 07/29/2019 Appointment: Jeanie Black WPtel: [address] [place] [address] US LAB 07/18/2019 Appointment: Jeanie Black WPtel: [address] [place] [address] US LAB 07/06/2019 Visit Diagnosis Plan: Bitten [...] : D64.9 06/14/2019 Appointment: Jeanie Black WPtel: [address] [place] [address] US FOLLOW UP 06/14/2019 Visit Diagnosis Plan: [...] Visit Diagnosis Plan: Other fatigue Discussion: brooke o macario updated blood work to be completed today. ICD-9 : 780.79 ICD-10 : R53.83 05/13/2019 Appointment: Jannette Mayen [address] [place], [place] [id number] FOLLOW UP 05/13/2019 Patient Education: carvedilol- [employer] Coupon [id number] https://www.sampleExplorer.io.iTherX/samplemd/resources/getResource/61/[email or web address]-3668-3d Completed 05/13/2019 Patient Education: Xanax- [employer] Coupon [id number] https://www.ConcernTrak.com/samplemd/resources/getResource/61/[email or web address]-[email or web address] 1e-[email or web address].pdf Completed 05/13/2019 Appointment: Jean[facility] Black [facility]el[facility] [address] [facility] [place] [facility] 05/06/2019 Visit Diagnosis Plan: [...] ICD-10 : M25.531 05/02/2019 Appointment: Jannette Mayen [address] [place] [address] ACUTE ILLNESS 05/02/2019 Care Plan: X-RAY EXAM OF WRIST right LOINC : 3 [id number] Pending 05/02/2019 Appointment: Jeanie Black WPtel: [address] [place] [address] LAB 04/07/2019 Appointment: Jeanie Black WPtel: [address] [place] [address] BP CHECK 03/22/2019 Visit Diagnosis Plan: Abnormal [...] : I10 03/08/2019 Appointment: Jeanie Black WPtel: [facility]5 [facility] NEW PATIENT 03/08/2019 Referral: Shona Viera WPtel: [facility] [address] [facility] [place] Referral Appointment Requested Instructions No Instructions Medical Equipment No Medical Equipment data Health Concerns Section Health Concerns data not found Goals Section Goals data not found Interventions Section Interventions data not found Health Status Evaluations/Outcomes Section Health Status Evaluations/Outcomes data not found Advance Directives No Advance Directive data
--- OUTSIDE RECORDS SUMMARY | 2021-09-19 12:39 | XMS REPORT | CCD ---
Author Author Tricia Black D.O. Organization [facility] Address [address] [place] [address] Phone Care Team Providers Care Cabinet Installer Name Role Phone PP Unavailable CCM Unavailable Summary Purpose Interface Exchange Insurance Providers Payer name Policy type / Coverage type Covered democrat ID Effective Begin Date Effective End Date WPS MEDICARE PART B [place] Medicare Part B [id number] Unknown Unknown AARP Medicare Part B [id number] Unknown Unknown Family history Grandmother Diagnosis Age [...] Unknown Retired 03/08/[address]: 802425693 Has never smoked or chewed tobacco 03/08/[address]: 554852 Currently drinks alcohol 03/08 Has the patient [...] Fill Instructions Coumadin 4 mg tablet RxNorm: 093719 Take 1 Tablet(s) Or al MWF Thursday through 08/26/2021 11/23/2021 Active change in dose Coumadin 2 mg tablet RxNorm: 011411 1 Tablet(s) Oral , , Thu and Thursday08/26/2021 11/23/2021 Active isosorbide mononitrate 10 mg tablet RxNorm: 878652 Take 1 Tablet(s) Oral two times a day 08/08/2021 No Stop Date Active losartan 100 mg tablet RxNorm: 840606 Take 1 Tablet(s) Oral QD 07/2411/02/2021 Active amoxicillin 500 mg capsule RxNorm: 744050 4 Capsule(s) Oral QD 1hr prior to dental cleaning 08/05/2021 08/05/2021 Inactive levothyroxine 50 mcg tablet RxNorm: 017227 TAKE 1 TABLE T BY MOUTH EVERY DAY. RECHECK LABS IN 2 MONTHS 08/04/2021 10/02/2021 Active potassium chloride ER 10 mEq tablet,extended release RxNorm: 801039 TAKE 1 TABLET BY MOUTH EVERY DAY 07/14/2021 10/11/2021 Active spironolactone 25 mg tablet RxNorm: 274990 1/2 Tablet(s) Oral QD No Stop Date Active isosorbide mononitrate 10 mg tablet RxNorm: 516857 Take 1 Tablet(s) Oral two times a day 05/16/2021 05/16/2021 Inactive isosorbide mononitrate ER 30 mg tablet,extended release 24 h r RxNorm: 647450 TABLET(S) 1 TABLET(S) PO NEEDED Tablet(s) Oral 05/16/2021 08/07/2021 Inactive Patient requests 90 days supply furosemide 40 mg tablet RxNorm: 654133 TAKE 1 TABLET BY MOUTH E MORNING 05/07/2021 08/04/2021 Inactive isosorbide mononitrate 10 mg tablet RxNorm: 073689 Take 1 Tablet(s) Oral two times a day 04/26/2021 05/15/2021 Inactive isosorbide mononitrate 10 mg tablet RxNorm: 680200 Take 1 Tablet(s) Oral two times a day 04/25/2021 04/25/2021 Inactive potassium chloride ER 10 mEq tablet,extended release RxNorm: 477794 TAKE 1 TABLET BY MOUTH EVERY DAY 04/19/2021 04/19/2021 Inactive Coumadin 4 mg tablet RxNorm: 097240 1 Tablet(s) Oral Thursday04/11/2021 04/11/2021 Inactive Coumadin 2 mg tablet RxNorm: 718645 1 Tablet(s) Oral on Thursday and Thursday04/11/2021 04/11/2021 Inactive carvedilol 25 mg tablet RxNorm: 268642 1 Tablet(s) Oral two antolin es a day 04/03/2021 09/29/2021 Active Coumadin 2 mg tablet RxNorm: 006004 TAKE 1 TABLET BY [facility] ON THURSDAY AND Thursday03/26/2021 04/10/2021 Inactive Coumadin 4 mg tablet RxNorm: 147272 1 Tablet(s) Oral QD 02/26/2021 Inactive levothyroxine 50 mcg tablet RxNorm: 564849 1 Tablet(s) Oral QD Recheck labs in 2 months 02/26/2021 02/26/2021 Inactive Recheck labs in 2 months levothyroxine 50 mcg tablet RxNorm: 208454 1 Tablet(s) Oral QD Recheck labs in 2 months 02/26/2021 02/25/2021 Inactive Recheck labs in 2 months losartan 100 mg tablet RxNorm: 082979 TAKE 1 TABLET BY MOUTH 02/22/2021 08/20/2021 Inactive spironolactone 25 mg tablet RxNorm: 147342 1 Tablet(s) Oral QD 01/2303/04/2021 Inactive isosorbide mononitrate 10 mg tablet RxNorm: 827400 1 Ta blet(s) Oral two times a day 02/19/2021 02/25/2021 Inactive famotidine 20 mg tablet RxNorm: 256880 1 Tablet(s) Oral QD 02/20/2003/04/2021 Inactive levothyroxine 25 mcg tablet RxNorm: 794900 1 Tablet(s) Oral QD 07/202102/25/2021 Inactive atorvastatin 40 mg tablet RxNorm: 976455 1 Tablet(s) Or al QPM replaces pravastatin 01/29/2021 07/27/2021 Inactive furosemide 40 mg tablet RxNorm: 845188 TAKE 1 TABLET BY MOUTH E VERY MORNING 01/28/2021 01/28/2021 Inactive prednisone 10 mg tablet RxNorm: 932030 1 Tablet(s) Oral two antolin es a day 01/16/2021 01/19/2021 Inactive atorvastatin 40 mg tablet RxNorm: 153094 1 Tablet(s) Or al QPM replaces pravastatin 12/31/2020 01/28/2021 Inactive carvedilol 25 mg tablet RxNorm: 936379 TAKE 1 TABLET BY MOUTH T WICE DAILY 12/31/2020 04/02/2021 Inactive potassium chloride ER 10 mEq tablet,extended release RxNorm: 053756 TAKE 1 TABLET BY MOUTH EVERY DAY 12/31/2020 12/31/2020 Inactive losartan 100 mg tablet RxNorm: 434009 1 Tablet(s) Oral QD 12/03/2020 02/21/2021 Inactive Coumadin 4 mg tablet RxNorm: 516499 TAKE 1 TABLET BY [facility] THURSDAY THROUGH Thursday11/30/2020 02/25/2021 Inactive levothyroxine 25 mcg tablet RxNorm: 290194 1 Tablet(s) Oral QD 10/2401/28/2021 Inactive famotidine 20 mg tablet RxNorm: 542755 1 Tablet(s) Oral QD 11/19/20 20 01/15/2021 Inactive famotidine 20 mg tablet RxNorm: 756022 1 Tablet(s) Oral QD 11/19/20 20 11/18/2020 Inactive levothyroxine 50 mcg tablet RxNorm: 948096 [facility] 11/06/2020 01/29/2021 Inactive furosemide 40 mg tablet RxNorm: 074006 TAKE 1 TABLET BY MOUTH E VERY MORNING 11/05/2020 01/27/2021 Inactive atorvastatin 40 mg tablet RxNorm: 689330 1 Tablet(s) Or al QPM replaces pravastatin 10/22/2020 12/30/2020 Inactive atorvastatin 40 mg tablet RxNorm: 344076 1 Tablet(s) Or al QPM replaces pravastatin 10/22/2020 10/21/2020 Inactive spironolactone 25 mg tablet RxNorm: 968951 1 Tablet(s) Oral QAM 01/15/2021 Inactive carvedilol 25 mg tablet RxNorm: 710147 TAKE 1 TABLET BY MOUTH T WICE DAILY 10/04/2020 12/30/2020 Inactive pravastatin 40 mg tablet RxNorm: 834094 TAKE 1 TABLET BY MOUTH EVERY DAY 10/04/2020 12/31/2020 Inactive potassium chloride ER 10 mEq tablet,extended release RxNorm: 577163 TAKE 1 TABLET BY MOUTH EVERY DAY 10/04/2020 12/30/2020 Inactive isosorbide mononitrate ER 30 mg tablet,extended release 24 h r RxNorm: 870086 TABLET(S) 1 TABLET(S) PO NEEDED Oral 10/04/2020 02/18/2021 Inactive Patient requests 90 days supply furosemide 40 mg tablet RxNorm: 412064 TAKE 1 TABLET BY MOUTH E VERY MORNING 10/01/2020 11/04/2020 Inactive losartan 100 mg tablet RxNorm: 053663 TAKE 1 TABLET BY MOUTH 09/19/2020 12/02/2020 Inactive amlodipine 5 mg tablet RxNorm: 443884 1 Tablet(s) Oral QD 08/27/2020 11/11/2020 Inactive spironolactone 25 mg tablet RxNorm: 529517 1 Tablet(s) Oral QAM 03/202010/21/2020 Inactive levothyroxine 50 mcg tablet RxNorm: 804754 TAKE 1 TABLET BY ENE TH EVERY DAY 08/07/2020 11/04/2020 Inactive levothyroxine 50 mcg tablet RxNorm: 768414 TAKE 1 TABLET BY ENE [facility] EVERY DAY 08/06/2020 08/06/2020 Inactive amoxicillin 500 mg capsule RxNorm: 235044 4 Capsule(s) Oral QD 1hr prior to dental cleaning 07/31/2020 07/30/2020 Inactive amoxicillin 500 mg capsule RxNorm: 893729 4 Capsule(s) Oral QD 1hr prior to dental cleaning 07/31/2020 07/31/2020 Inactive potassium chloride ER 10 mEq tablet,extended release RxNorm: 289050 TAKE 1 TABLET BY MOUTH EVERY DAY 07/23/2020 10/03/2020 Inactive pravastatin 40 mg tablet RxNorm: 700274 TAKE 1 TABLET BY MOUTH EVERY DAY 07/23/2020 10/03/2020 Inactive carvedilol 25 mg tablet RxNorm: 276761 TAKE 1 TABLET BY MOUTH T WICE DAILY 07/23/2020 10/03/2020 Inactive losartan 100 mg tablet RxNorm: 166538 TAKE 1 TABLET BY MOUTH EV RANDI DAY 06/27/2020 09/18/2020 Inactive furosemide 40 mg tablet RxNorm: 526019 TAKE 1 TABLET BY MOUTH E VERY MORNING 06/08/2020 09/30/2020 Inactive Coumadin 4 mg tablet RxNorm: 189079 1 Tablet(s) Oral Thursday thr thursday06/07/2020 11/29/2020 Inactive Coumadin 2 mg tablet RxNorm: 241446 1 Tablet(s) Oral on and Thursday03/20/2020 03/19/2020 Inactive Coumadin 4 mg tablet RxNorm: 889136 1 Tablet(s) Oral Thursday thr thursday03/20/2020 06/06/2020 Inactive losartan 100 mg tablet RxNorm: 811481 TAKE 1 TABLET BY MOUTH EV RANDI03/20/2020 06/26/2020 Inactive Coumadin 2 mg tablet RxNorm: 893282 1 Tablet(s) Oral on and Thursday03/20/2020 02/25/2021 Inactive furosemide 40 mg tablet RxNorm: 304206 1 Tablet(s) Oral QAM 020 06/07/2020 Inactive pravastatin 40 mg tablet RxNorm: 334203 TAKE 1 TABLET BY MOUTH EVERY DAY 02/07/2020 07/22/2020 Inactive losartan 100 mg tablet RxNorm: 320971 TAKE 1 TABLET BY MOUTH EV RANDI DAY 02/01/2020 03/19/2020 Inactive losartan 100 mg tablet RxNorm: 196707 TAKE 1 TABLET BY MOUTH EV 01/17/2020 01/31/2020 Inactive Coumadin 2 mg tablet RxNorm: 791214 1 Tablet(s) Oral on and Thursday12/15/2019 12/15/2019 Inactive furosemide 40 mg tablet RxNorm: 161650 TAKE 1 TABLET BY MOUTH E VERY MORNING 12/14/2019 03/12/2020 Inactive pravastatin 40 mg tablet RxNorm: 266518 TAKE 1 TABLET BY MOUTH EVERY DAY 11/27/2019 02/06/2020 Inactive losartan 100 mg tablet RxNorm: 906398 1 Tablet(s) Oral QD 11/10/2019 01/16/2020 Inactive isosorbide mononitrate ER 30 mg tablet,extended release 24 h r RxNorm: 487507 TABLET(S) 1 TABLET(S) PO NEEDED 11/10/2019 05/08/2020 Inactive Patient requests 90 days supply carvedilol 25 mg tablet RxNorm: 501328 1 Tablet(s) Oral two antolin es a day 11/10/2019 05/08/2020 Inactive Coumadin 2 mg tablet RxNorm: 977318 1 Tablet(s) Oral on and Thursday11/10/2019 12/14/2019 Inactive losartan 100 mg tablet RxNorm: 716536 1 Tablet(s) Oral QD 11/10/2019 11/09/2019 Inactive levothyroxine 50 mcg tablet RxNorm: 836516 1 Tablet(s) Oral QD 10/2310/21/2020 Inactive Coumadin 4 mg tablet RxNorm: 146496 1 Tablet(s) Oral Thursday11/10/2019 11/10/2019 Inactive losartan 50 mg tablet RxNorm: 832116 2 Tablet(s) Oral QD 11/01/2019 1 01/10/2019 Inactive potassium chloride ER 10 mEq capsule,extended release RxNorm : 822881 1 Capsule(s) Oral QD 10/26/2019 12/14/2019 Inactive potassium chloride ER 10 mEq tablet,extended release RxNorm: 445721 1 TABLET(S) ORAL QD 10/22/2019 04/18/2020 Inactive Replaces PA on 1 0MEQ Capsules Aspir-81 mg tablet,delayed release RxNorm: 974273 1 Tablet(s) O ral QD 10/11/2019 No Stop Date Active cyclobenzaprine 5 mg tablet RxNorm: 147225 1 Tablet(s) Oral two times a day as needed for muscle spasm 10/11/2019 03/19/2020 Inactive Coumadin 4 mg tablet RxNorm: 173346 1 Tablet(s) Oral Mo nd through Thursday and 1/2 tablet (2mg) on Sat/Sun 10/11/2019 11/09/2019 Inactive potassium chloride ER 10 mEq tablet,extended release RxNorm: 362003 1 Tablet(s) Oral QD 09/22/2019 09/21/2019 Inactive Replaces PA on 1 0MEQ Capsules potassium chloride ER 10 mEq tablet,extended release RxNorm: 713497 1 Tablet(s) Oral QD 09/22/2019 10/10/2019 Inactive Replaces PA on 1 0MEQ Capsules potassium chloride ER 10 mEq capsule,extended release RxNorm : 076160 1 Capsule(s) Oral QD 09/21/2019 09/21/2019 Inactive carvedilol 25 mg tablet RxNorm: 472577 1 Tablet(s) Oral two antolin es a day 08/23/2019 11/09/2019 Inactive isosorbide mononitrate ER 30 mg tablet,extended release 24 h r RxNorm: 442389 TABLET(S) 1 TABLET(S) PO NEEDED 08/22/2019 10/04/2020 Inactive Patient requests 90 days supply isosorbide mononitrate ER 30 mg tablet,extended release 24 h r RxNorm: 520496 Tablet(s) 1 TABLET(S) PO NEEDED 08/16/2019 08/21/2019 Inactive Patient requests 90 days supply levothyroxine 50 mcg tablet RxNorm: 251739 1 Tablet(s) PO QD 201811/09/2019 Inactive isosorbide mononitrate ER 30 mg tablet,extended release 24 h r RxNorm: 348146 Tablet(s) 1 TABLET(S) PO NEEDED 06/27/2019 08/15/2019 Inactive Patient requests 90 days supply isosorbide mononitrate ER 30 mg tablet,extended release 24 h r RxNorm: 210780 1 Tablet(s) PO QD as needed 06/27/2019 06/27/2019 Inactive Neris ent requests 90 days supply carvedilol 25 mg tablet RxNorm: 636843 1 TABLET(S) PO BID 06/27/2019 08/22/2019 Inactive furosemide 40 mg tablet RxNorm: 177592 1 Tablet(s) PO QAM 06/21/2019 12/13/2019 Inactive carvedilol 25 mg tablet RxNorm: 937180 1 Tablet(s) PO BID 05/13/2019 06/26/2019 Inactive Xanax 0.25 mg tablet RxNorm: 991887 1/2 Tablet(s) PO Q6H as needed 05/13/2019 09/07/2019 Inactive levothyroxine 50 mcg tablet RxNorm: 711844 1 Tablet(s) PO QD 201808/07/2019 Inactive losartan 50 mg tablet RxNorm: 581303 1 Tablet(s) PO QD 04/26/2019 Inactive losartan 50 mg tablet RxNorm: 680227 1 Tablet(s) PO QD 04/20/201901/2019 Inactive pravastatin 40 mg tablet RxNorm: 100424 1 Tablet(s) PO QD 04/07/2019 06/05/2019 Inactive isosorbide mononitrate ER 30 mg tablet,extended release 24 h r RxNorm: 034638 1 Tablet(s) PO as needed 04/07/2019 04/06/2019 Inactive isosorbide mononitrate ER 30 mg tablet,extended release 24 h r RxNorm: 527095 1 TABLET(S) PO NEEDED 04/07/2019 06/26/2019 Inactive Patient requests 90 days supply losartan 50 mg tablet RxNorm: 559698 1 Tablet(s) PO QD 03/22/2019 Inactive Prolia subcutaneous RxNorm: 916767 subcutaneous 02/19/2021 A ctive carvedilol 25 mg tablet RxNorm: 769630 1 Tablet(s) PO BID 05/13/2019 05/12/2019 Inactive losartan 50 mg tablet RxNorm: 298073 1 Tablet(s) PO QD 03/22/2019 Inactive Ventolin HFA 90 mcg/actuation aerosol inhaler RxNorm: 873087 1-2 Puff(s) INH as needed 09/08/2019 09/07/2019 Inactive furosemide 40 mg tablet RxNorm: 597528 1 Tablet(s) PO QAM 06/21/2019 06/20/2019 Inactive pravastatin 40 mg tablet RxNorm: 453506 1 Tablet(s) PO QD 04/07/2019 04/06/2019 Inactive Coumadin 2 mg tablet RxNorm: 870522 1 Tablet(s) PO Mon, Fri, Sat and Sun then 2 tablets (4mg) on , Thu and 10/11/2019 10/10/2019 Inactive isosorbide mononitrate ER 30 mg tablet,extended release 24 h r RxNorm: 464761 Tablet(s) PO as needed 04/07/2019 04/06/2019 Inactive Women's Multivitamin 18 mg iron-400 mcg-500 mg tablet RxNorm : 1 Tablet(s) PO QD 09/08/2019 09/07/2019 Inactive Vitamin D3 1000 units Capsule RxNorm: 3 Capsule(s) PO QD 9 09/07/2019 Inactive vitamin B complex capsule RxNorm: 1 Capsule(s) PO QD 09/08/2019 Inactive potassium chloride ER 10 mEq capsule,extended release RxNorm : 082761 1 Capsule(s) PO QD 09/21/2019 09/20/2019 Inactive levothyroxine 50 mcg tablet RxNorm: 257924 1 Tablet(s) PO QD 201804/25/2019 Inactive Medication Administered No Medication Administered data Immunizations Vaccine Codes Date Status Influenza CVX: 135 08/23/2021 Complete Influenza CVX: 135 07/06/2020 Pneumovax CVX: 33 02/03/2020 Influenza CVX: 135 07/02/2019 Results Observation Observation Code Item Item Code Result Date S ervice Location PT [id number] PT 35.6 Seconds 08/23/2021 Unknow n PT [id number] INR 3.5 08/23/2021 Unknown PT [id number] PT 28.3 Seconds 07/19/2021 Unknow n PT [id number] INR 2.6 07/19/2021 Unknown COMPREHENSIVE METABOLIC 97308 AST 20 U/L 2020 Unknown COMPREHENSIVE METABOLIC 51204 ALT 16 U/L 2020 Unknown COMPREHENSIVE METABOLIC 93284 BUN 35 mg/dL 2020 Unknown COMPREHENSIVE METABOLIC 32540 ALBUMIN 4.1 g/dL 2020 Unknown COMPREHENSIVE METABOLIC 02608 CHLORIDE 105 mmol/L 06/20 Unknown COMPREHENSIVE METABOLIC 48920 Bili Total 1.1 mg/dL 06/20 Unknown COMPREHENSIVE METABOLIC 83099 ALK PHOS 103 U/L 2020 Unknown COMPREHENSIVE METABOLIC 44131 SODIUM 139 mmol/L 06/20 Unknown COMPREHENSIVE METABOLIC 95111 CREATININE 0.99 mg/dL 05/24 Unknown COMPREHENSIVE METABOLIC 23254 CALCIUM 8.8 mg/dL 2020 Unknown COMPREHENSIVE METABOLIC 29548 POTASSIUM 4.7 mmol/L 06/20 Unknown COMPREHENSIVE METABOLIC 98358 Total Protein 6.2 g/dL Unknown COMPREHENSIVE METABOLIC 76746 Glucose 83 mg/dL 2020 Unknown COMPREHENSIVE METABOLIC 83491 Bicarbonate 27 mmol/L 05/24 Unknown COMPREHENSIVE METABOLIC 34536 AGAP 7 mmol/L 2020 Unknown COMPLETE BLOOD COUNT [id number] WBC 4.5 10e9/L 06/20/20 21 Unknown COMPLETE BLOOD COUNT [id number] RBC 3.99 10e12/L 2020 Unknown COMPLETE BLOOD COUNT [id number] HEMOGLOBIN 11.8 g/dL 06/20/20 21 Unknown COMPLETE BLOOD COUNT [id number] HEMATOCRIT 36.6 % 06/20/20 21 Unknown COMPLETE BLOOD COUNT [id number] MCV 91.7 fL 1 Unknown COMPLETE BLOOD COUNT [id number] MCH 29.6 pg 1 Unknown COMPLETE BLOOD COUNT 0765640 MCHC 32.2 g/dL 1 Unknown COMPLETE BLOOD COUNT 8533179 PLATELET COUNT 180 10e9/L Unknown COMPLETE BLOOD COUNT 8815764 Mean Plt Volume 11.1 fL Unknown COMPLETE BLOOD COUNT 0635322 Neut Auto 64.7 % 1 Unknown COMPLETE BLOOD COUNT 7271289 Lymph Auto 19.6 % 06/20/20 21 Unknown COMPLETE BLOOD COUNT 8808358 [place] Auto 13.5 % 1 Unknown COMPLETE BLOOD COUNT 6421221 RDW 15.1 % 1 Unknown COMPLETE BLOOD COUNT 2336783 Eos Auto 1.8 % 1 Unknown COMPLETE BLOOD COUNT 9669469 Baso Auto 0.4 % 1 Unknown COMPLETE BLOOD COUNT [id number] Neutrophil Abs 2.91 10e9/L Unknown COMPLETE BLOOD COUNT 8913918 Lymphocyte Abs 0.88 10e9/L Unknown COMPLETE BLOOD COUNT 1120754 Monocyte Abs 0.61 10e9/L 05/24 Unknown COMPLETE BLOOD COUNT 2313819 Eosinophil Abs 0.08 10e9/L Unknown COMPLETE BLOOD COUNT 6084479 RDW-SD 49.5 fL Unknown COMPLETE BLOOD COUNT 8793384 Basophil Abs 0.02 10e9/L 05/24 Unknown GFR CALC 3926484 GFR Non Afr Amr 53 mL/min 06/20/2021 Unk nown GFR CALC 7021177 GFR Afr Amr >60 mL/min 06/20/2021 Unknow n PT [id number] PT 27.4 Seconds 06/20/2021 Unknow n PT [id number] INR 2.5 06/20/2021 Unknown PT [id number] PT 25.8 Seconds 05/21/2021 Unknow n PT [id number] INR 2.3 05/21/2021 Unknown FREE T4 58622 T4 Free 1.19 ng/dL 04/11/2021 Unknown PT [id number] PT 33.6 Seconds 04/11/2021 Unknow n PT [id number] INR 3.3 04/11/2021 Unknown THYROID STIMULATING HORMONE 62088 TSH 3.912 uIU/mL 04/11/2021 Unknown PT [id number] PT 33.1 Seconds 03/15/2021 Unknow n PT [id number] INR 3.2 03/15/2021 Unknown PT [id number] PT 24.6 Seconds 05/23/2020 Unknow n PT [id number] INR 2.2 05/23/2020 Unknown PT [id number] PT 31.4 Seconds 10/26/2019 Unknow n PT [id number] INR 2.9 10/26/2019 Unknown PT [id number] PT 17.6 Seconds 10/11/2019 Unknow n PT [id number] INR 1.4 10/11/2019 Unknown PT [id number] PT 23.7 Seconds 09/08/2019 Unknow n PT [id number] INR 2.0 09/08/2019 Unknown PT [id number] PT 23.2 Seconds 07/29/2019 Unknow n PT [id number] INR 2.0 07/29/2019 Unknown PT [id number] PT 14.3 Seconds 07/18/2019 Unknow n PT [id number] INR 1.1 07/18/2019 [place] [address] Glucose 75 mg/dL 07/06 [place] [address] CREATININE 0.61 mg/dL [place] [address] BUN 15 mg/dL 07/06 [place] [address] SODIUM 142 mmol/L 06/23 [place] [address] POTASSIUM 4.0 mmol/L 06/23 [place] [address] CHLORIDE 106 mmol/L 06/23 [place] [address] Bicarbonate 28 mmol/[place] [address] AGAP 8 mmol/L 07/06 [place] [address] CALCIUM 9.3 mg/dL 07/06 Unknown PT [id number] PT 17.4 Seconds 07/06/2019 Unknow n PT [id number] INR 1.4 07/06/2019 Unknown GFR CALC 6982862 GFR Non Afr Amr >60 mL/min 07/06/2019 Un known GFR CALC [id number] GFR Afr Amr >60 mL/min 07/06/2019 Unknow n COMPLETE BLOOD COUNT 9120802 WBC 4.7 10e9/L 07/06/20 19 Unknown COMPLETE BLOOD COUNT 1288860 RBC 4.19 10e12/L 2018 Unknown COMPLETE BLOOD COUNT 2327558 HEMOGLOBIN 12.6 g/dL 07/06/20 19 Unknown COMPLETE BLOOD COUNT [id number] HEMATOCRIT 39.4 % 07/06/20 19 Unknown COMPLETE BLOOD COUNT 9696880 MCV 94.0 fL 9 Unknown COMPLETE BLOOD COUNT 5364994 MCH 30.1 pg 9 Unknown COMPLETE BLOOD COUNT 0112997 MCHC 32.0 g/dL 9 Unknown COMPLETE BLOOD COUNT 9515070 PLATELET COUNT 160 10e9/L Unknown COMPLETE BLOOD COUNT 5515884 Mean Plt Volume 11.0 fL Unknown COMPLETE BLOOD COUNT 3548350 Neut Auto 56.6 % 9 Unknown COMPLETE BLOOD COUNT 7558761 Lymph Auto 27.0 % 07/06/20 19 Unknown COMPLETE BLOOD COUNT 1141285 [place] Auto 13.7 % 9 Unknown COMPLETE BLOOD COUNT 1926650 RDW 14.6 % 9 Unknown COMPLETE BLOOD COUNT 8647105 Eos Auto 2.1 % 9 Unknown COMPLETE BLOOD COUNT 1040470 Baso Auto 0.6 % 9 Unknown COMPLETE BLOOD COUNT 5903091 Neutrophil Abs 2.66 10e9/L Unknown COMPLETE BLOOD COUNT 5625374 Lymphocyte Abs 1.27 10e9/L Unknown COMPLETE BLOOD COUNT 4596659 Monocyte Abs 0.64 10e9/L 06/23 Unknown COMPLETE BLOOD COUNT 5443060 Eosinophil Abs 0.10 10e9/L Unknown COMPLETE BLOOD COUNT 0000049 RDW-SD 48.7 fL 9 Unknown COMPLETE BLOOD COUNT 7155532 Basophil Abs 0.03 10e9/L 06/23 Unknown COMPLETE BLOOD COUNT 9498226 WBC 4.6 10e9/L 06/14/20 19 Unknown COMPLETE BLOOD COUNT 5701476 RBC 4.16 10e12/L 2018 Unknown COMPLETE BLOOD COUNT 7541129 HEMOGLOBIN 12.6 g/dL 06/14/20 19 Unknown COMPLETE BLOOD COUNT [id number] HEMATOCRIT 39.1 % 06/14/20 19 Unknown COMPLETE BLOOD COUNT 8049159 MCV 94.0 fL 9 Unknown COMPLETE BLOOD COUNT 8712950 MCH 30.3 pg 9 Unknown COMPLETE BLOOD COUNT 1999760 MCHC 32.2 g/dL 9 Unknown COMPLETE BLOOD COUNT 3258084 PLATELET COUNT 167 10e9/L Unknown COMPLETE BLOOD COUNT 6743306 Mean Plt Volume 10.9 fL Unknown COMPLETE BLOOD COUNT 5090847 Neut Auto 59.6 % 9 Unknown COMPLETE BLOOD COUNT 5401490 Lymph Auto 24.1 % 06/14/20 19 Unknown COMPLETE BLOOD COUNT 1533758 [place] Auto 14.0 % 9 Unknown COMPLETE BLOOD COUNT 3940427 RDW 14.8 % 9 Unknown COMPLETE BLOOD COUNT 6074308 Eos Auto 1.9 % 9 Unknown COMPLETE BLOOD COUNT 6626419 Baso Auto 0.4 % 9 Unknown COMPLETE BLOOD COUNT [id number] Neutrophil Abs 2.74 10e9/L Unknown COMPLETE BLOOD COUNT 4517606 Lymphocyte Abs 1.11 10e9/L Unknown COMPLETE BLOOD COUNT [id number] Monocyte Abs 0.64 10e9/L 05/24 Unknown COMPLETE BLOOD COUNT 0158717 Eosinophil Abs 0.09 10e9/L Unknown COMPLETE BLOOD COUNT [id number] RDW-SD 49.3 fL 9 Unknown COMPLETE BLOOD COUNT 1005736 Basophil Abs 0.02 10e9/L 05/24 Unknown PT [id number] PT 22.3 Seconds 06/14/2019 Unknow n PT [id number] INR 1.9 06/14/2019 Unknown COMPLETE BLOOD COUNT [id number] WBC 4.0 10e9/L 05/13/20 19 Unknown COMPLETE BLOOD COUNT [id number] RBC 3.82 10e12/L 2018 Unknown COMPLETE BLOOD COUNT 1070538 HEMOGLOBIN 11.5 g/dL 05/13/20 19 Unknown COMPLETE BLOOD COUNT 0910417 HEMATOCRIT 36.4 % 05/13/20 19 Unknown COMPLETE BLOOD COUNT 6178162 MCV 95.3 fL 9 Unknown COMPLETE BLOOD COUNT 7247993 MCH 30.1 pg 9 Unknown COMPLETE BLOOD COUNT 7824283 MCHC 31.6 g/dL 9 Unknown COMPLETE BLOOD COUNT 8756982 PLATELET COUNT 175 10e9/L Unknown COMPLETE BLOOD COUNT 0303909 Mean Plt Volume 10.5 fL Unknown COMPLETE BLOOD COUNT 6608364 Neut Auto 63.2 % 9 Unknown COMPLETE BLOOD COUNT 4487139 Lymph Auto 22.0 % 05/13/20 19 Unknown COMPLETE BLOOD COUNT 0426781 [place] Auto 12.1 % 9 Unknown COMPLETE BLOOD COUNT 7327293 RDW 14.9 % 9 Unknown COMPLETE BLOOD COUNT 6342918 Eos Auto 2.2 % 9 Unknown COMPLETE BLOOD COUNT 5374287 Baso Auto 0.5 % 9 Unknown COMPLETE BLOOD COUNT 0981317 Neutrophil Abs 2.53 10e9/L Unknown COMPLETE BLOOD COUNT 1090493 Lymphocyte Abs 0.88 10e9/L Unknown COMPLETE BLOOD COUNT 2967433 Monocyte Abs 0.48 10e9/L 04/24 Unknown COMPLETE BLOOD COUNT 0614688 Eosinophil Abs 0.09 10e9/L Unknown COMPLETE BLOOD COUNT 0915331 RDW-SD 49.6 fL 9 Unknown COMPLETE BLOOD COUNT 7566015 Basophil Abs 0.02 10e9/L 04/24 Unknown COMPREHENSIVE METABOLIC 34033 AST 18 U/L 2018 Unknown COMPREHENSIVE METABOLIC 38941 ALT 14 U/L 2018 Unknown COMPREHENSIVE METABOLIC 62302 BUN 15 mg/dL 2018 Unknown COMPREHENSIVE METABOLIC 07354 ALBUMIN 4.0 g/dL 2018 Unknown COMPREHENSIVE METABOLIC 57345 CHLORIDE 108 mmol/L 05/13 Unknown COMPREHENSIVE METABOLIC 23847 Bili Total 0.9 mg/dL 05/13 Unknown COMPREHENSIVE METABOLIC 44325 ALK PHOS 84 U/L 2018 Unknown COMPREHENSIVE METABOLIC 66227 SODIUM 142 mmol/L 05/13 Unknown COMPREHENSIVE METABOLIC 15309 CREATININE 0.72 mg/dL 04/24 Unknown COMPREHENSIVE METABOLIC 80789 CALCIUM 8.9 mg/dL 2018 Unknown COMPREHENSIVE METABOLIC 89832 POTASSIUM 4.0 mmol/L 05/13 Unknown COMPREHENSIVE METABOLIC 93727 Total Protein 5.5 g/dL Unknown COMPREHENSIVE METABOLIC 73698 Glucose 95 mg/dL 2018 Unknown COMPREHENSIVE METABOLIC 26975 Bicarbonate 27 mmol/L 04/24 Unknown COMPREHENSIVE METABOLIC 85258 AGAP 7 mmol/L 2018 Unknown GFR CALC [id number] GFR Non Afr Amr >60 mL/min 05/13/2019 Un known GFR CALC [id number] GFR Afr Amr >60 mL/min 05/13/2019 Unknow n THYROID STIMULATING HORMONE 03102 TSH 2.669 uIU/mL 05/13/2019 Unknown FREE T4 23472 T4 Free 1.19 ng/dL 05/13/2019 Unknown PT [id number] PT 24.2 Seconds 05/06/2019 Unknow n PT [id number] INR 2.1 05/06/2019 Unknown PT [id number] PT 24.1 Seconds 03/08/2019 Unknow n PT [id number] INR 2.9 03/08/2019 Unknown Procedures Procedure Codes Date FLU VACC PRSV FREE INC ANTIG 65 AND OLDER CPT-4: 81254 08/23/2021 ROUTINE VENIPUNCTURE CPT-4: 15343 08/23/2021 PROTHROMBIN TIME CPT-4: 06692 08/23/2021 FLU VACC PRSV FREE INC ANTIG 65 AND OLDER CPT-4: 41024 08/23/2021 ADMIN INFLUENZA VIRUS VAC CPT-4: G0008 08/23/2021 ROUTINE VENIPUNCTURE CPT-4: 50259 07/19/2021 PROTHROMBIN TIME CPT-4: 39982 07/19/2021 ROUTINE VENIPUNCTURE CPT-4: 76524 06/20/2021 COMPREHEN METABOLIC PANEL CPT-4: 65127 06/20/2021 COMPLETE CBC W/AUTO DIFF WBC CPT-4: 60116 06/20/2021 PROTHROMBIN TIME CPT-4: 88937 06/20/2021 PT CPT-4: 0116633 05/16/2021 ROUTINE VENIPUNCTURE CPT-4: 38394 05/16/2021 ROUTINE VENIPUNCTURE CPT-4: 10698 04/11/2021 PROTHROMBIN TIME CPT-4: 25978 04/11/2021 ASSAY OF FREE THYROXINE CPT-4: 51969 04/11/2021 ASSAY THYROID STIM HORMONE CPT-4: 30389 04/11/2021 ROUTINE VENIPUNCTURE CPT-4: 69552 03/15/2021 PT CPT-4: 5980723 03/15/2021 ROUTINE VENIPUNCTURE CPT-4: 46881 02/22/2021 COMPREHEN METABOLIC PANEL CPT-4: 28468 02/22/2021 ASSAY OF FREE THYROXINE CPT-4: 29348 02/22/2021 ASSAY THYROID STIM HORMONE CPT-4: 05729 02/22/2021 COMPLETE CBC W/AUTO DIFF WBC CPT-4: 53066 02/22/2021 PROTHROMBIN TIME CPT-4: 26818 02/22/2021 LIPID PANEL CPT-4: 88608 02/22/2021 PPPS, subseq visit CPT-4: G0439 09/26/2020 ROUTINE VENIPUNCTURE CPT-4: 69129 05/23/2020 PROTHROMBIN TIME CPT-4: 04596 05/23/2020 ROUTINE VENIPUNCTURE CPT-4: 18820 01/20/2020 PT CPT-4: 0142987 01/20/2020 ROUTINE VENIPUNCTURE CPT-4: 67723 12/15/2019 PROTHROMBIN TIME CPT-4: 74958 12/15/2019 ROUTINE VENIPUNCTURE CPT-4: 47534 11/10/2019 PROTHROMBIN TIME CPT-4: 86807 11/10/2019 PROTHROMBIN TIME CPT-4: 97692 10/26/2019 ROUTINE VENIPUNCTURE CPT-4: 71305 10/26/2019 ROUTINE VENIPUNCTURE CPT-4: 70527 10/11/2019 PT CPT-4: 3867611 10/11/2019 PPPS, initial visit CPT-4: G0438 09/20/2019 ROUTINE VENIPUNCTURE CPT-4: 44483 09/08/2019 PT CPT-4: 4854789 09/08/2019 THER/PROPH/DIAG INJ SC/IM CPT-4: 03610 09/08/2019 TRIAMCINOLONE ACET INJ NOS CPT-4: J3301 09/08/2019 ROUTINE VENIPUNCTURE CPT-4: 40840 07/29/2019 PT CPT-4: 8250025 07/29/2019 ROUTINE VENIPUNCTURE CPT-4: 66514 07/18/2019 PT CPT-4: 6935975 07/18/2019 METABOLIC PANEL TOTAL CA CPT-4: 74073 07/06/2019 COMPLETE CBC W/AUTO DIFF WBC CPT-4: 99533 07/06/2019 PROTHROMBIN TIME CPT-4: 52466 07/06/2019 ROUTINE VENIPUNCTURE CPT-4: 16188 06/14/2019 PROTHROMBIN TIME CPT-4: 79496 06/14/2019 COMPLETE CBC W/AUTO DIFF WBC CPT-4: 16109 06/14/2019 ROUTINE VENIPUNCTURE CPT-4: 79460 05/13/2019 COMPREHEN METABOLIC PANEL CPT-4: 23922 05/13/2019 COMPLETE CBC W/AUTO DIFF WBC CPT-4: 07800 05/13/2019 ASSAY THYROID STIM HORMONE CPT-4: 95055 05/13/2019 ASSAY OF FREE THYROXINE CPT-4: 09357 05/13/2019 PT CPT-4: 3409375 05/06/2019 ROUTINE VENIPUNCTURE CPT-4: 43294 05/06/2019 PT CPT-4: 6585055 04/07/2019 ROUTINE VENIPUNCTURE CPT-4: 43958 04/07/2019 ROUTINE VENIPUNCTURE CPT-4: 91927 03/08/2019 PROTHROMBIN TIME CPT-4: 48247 03/08/2019 Vital Signs Date Vital 08/20/2021 Blood Pressure 1: 127/69 Code: 8480-6 Heart Rate 1: 84 bpm Respiratory Rate: 17 bpm SpO2: 98% Temperature: 36.7 (C) / 98.1 (F) We ight: 208 lbs Code: 49450-7 05/16/2021 Blood Pressure 1: 136/64 Code: 8480-6 BMI: 37.0 Code: 96137-6 Heart Rate 1: 61 bpm Height: 5'3" Code: 8302-2 Respiratory Rate: 16 bpm SpO2: 98% Temperature: 36.2 (C) / 97.1 (F) Weight: 212 lbs Code: 45405-9 03/05/2021 Blood Pressure 1: 134/76 Code: 8480-6 Heart Rate 1: 66 bpm Respiratory Rate: 16 bpm SpO2: 100% Temperature: 37.1 (C) / 98.7 (F) We ight: 203 lbs Code: 97319-8 02/19/2021 Blood Pressure 1: 126/70 Code: 8480-6 BMI: 35.4 Code: 73490-5 Heart Rate 1: 72 bpm Height: 5'3" Code: 8302-2 Respiratory Rate: 16 bpm SpO2: 99% Temperature: 36.3 (C) / 97.3 (F) Weight: 203 lbs Code: 90008-4 01/16/2021 Blood Pressure 1: 112/74 Code: 8480-6 Heart Rate 1: 76 bpm Respiratory Rate: 20 bpm Temperature: 36.7 (C) / 98.0 (F) Weight: 205 lbs Code : 75333-3 11/19/2020 Blood Pressure 1: 120/78 Code: 8480-6 Heart Rate 1: 88 bpm Temperature: 36.6 (C) / 97.8 (F) 11/12/2020 Blood Pressure 1: 110/57 Code: 8480-6 Heart Rate 1: 68 bpm Respiratory Rate: 15 bpm SpO2: 100% Weight: 202 lbs Code: 22159 -7 10/12/2020 Blood Pressure 1: 114/70 Code: 8480-6 Heart Rate 1: 84 bpm Respiratory Rate: 18 bpm SpO2: 98% Temperature: 36.7 (C) / 98.0 (F) 09/26/2020 Blood Pressure 1: 120/72 Code: 8480-6 BMI: 35.2 Code: 73914-3 Heart Rate 1: 76 bpm Height: 5'3" Code: 8302-2 Respiratory Rate: 20 bpm SpO2: 97% Temperature: 36.7 (C) / 98.0 (F) Weight: 202 lbs Code: 56201-7 08/27/2020 Blood Pressure 1: 126/82 Code: 8480-6 Heart Rate 1: 80 bpm Respiratory Rate: 20 bpm Temperature: 36.2 (C) / 97.1 (F) Weight: 198 lbs Code : 05185-7 05/23/2020 Blood Pressure 1: 120/78 Code: 8480-6 Heart Rate 1: 68 bpm Respiratory Rate: 20 bpm SpO2: 97% Temperature: 36.4 (C) / 97.5 (F) We ight: 200 lbs Code: 15477-9 05/02/2020 Blood Pressure 1: 133/81 Code: 8480-6 Heart Rate 1: 74 bpm Weight: 202 lbs Code: 86816-6 12/15/2019 Blood Pressure 1: 126/82 Code: 8480-6 Heart Rate 1: 64 bpm Respiratory Rate: 20 bpm SpO2: 97% Temperature: 36.6 (C) / 97.8 (F) We ight: 201 lbs Code: 96568-8 11/03/2019 Blood Pressure 1: 142/82 Code: 8480-6 [...] / 98.1 (F) Weight: 204 lbs Code: 92125-9 09/20/2019 Blood Pressure 1: 122/68 Code: 8480-6 BMI: 35.0 Code: 00112-6 Heart Rate 1: 72 bpm Height: 5'3" Code: 8302-2 Respiratory Rate: 18 bpm SpO2: 95% Temperature: 36.8 (C) / 98.3 (F) Weight: 201 lbs Code: 02888-1 09/08/2019 Blood Pressure 1: 118/72 Code: 8480-6 Heart Rate 1: 82 bpm SpO2: 97% Temperature: 36.3 (C) / 97.4 (F) Weight: 208 lbs Code: 64899-3 06/14/2019 Blood Pressure 1: 128/84 Code: 8480-6 Heart Rate 1: 72 bpm Respiratory Rate: 20 bpm SpO2: 98% Temperature: 36.7 (C) / 98.1 (F) We ight: 209 lbs Code: 66569-7 05/13/2019 Blood Pressure 1: 144/90 Code: 8480-6 Heart Rate 1: 88 bpm Respiratory Rate: 24 bpm SpO2: 96% Temperature: 37.1 (C) / 98.8 (F) We ight: 210 lbs Code: 98216-6 05/02/2019 Blood Pressure 1: 128/80 Code: 8480-6 Heart Rate 1: 84 bpm Respiratory Rate: 20 bpm SpO2: 95% Temperature: 36.6 (C) / 97.9 (F) We ight: 209 lbs Code: 19810-9 03/22/2019 Blood Pressure 1: 122/70 Code: 8480-6 He art Rate 1: 85 bpm 03/08/2019 Blood Pressure 1: 114/78 Code: 8480-6 BMI: 36.1 Code: 73049-5 Heart Rate 1: 76 bpm Height: 5'3" Code: 8302-2 Respiratory Rate: 20 bpm SpO2: 97% Temperature: 37.1 (C) / 98.8 (F) Weight: 207 lbs Code: 55346-8 Functional Status No Functional Status data Reason [...] visit Encounters Encounter Performer Location Codes Date ([id number]) NURSE/OUTPATIENT VISIT EST Diagnosis: Chronic atrial fibrillation[ICD10: I48.20] Diagnosis: Long-term (current) use of anticoagulants, INR goal 2.0-3.0[ICD10: Z79.01] Diagnosis: FLU VACCINE[ICD10: Z23] Jeanie PINZON Jack Erwin CPT-4: 82282 08/23/2021 ([id number]) OFFICE/OUTPATIENT VISIT EST Diagnosis: Breast pain, left[ICD10: N64.4] Diagnosis: Left breast lump[ICD10: N63.20] Remedios Cavazos JEANIE BLACK Jack Erwin CPT-4: 75357 08/20/2021 ([id number]) NURSE/OUTPATIENT VISIT EST Diagnosis: Long-term (current) use of anticoagulants, INR goal 2.0-3.0[ICD10: Z79.01] Jeanie BLACK Jack Erwin CPT-4: 78345 07/19/2021 ([id number]) NURSE/OUTPATIENT VISIT EST Diagnosis: Essential (primary) hypertension[ICD10: I10] Diagnosis: Chronic atrial fibrillation[ICD10: I48.20] Diagnosis: Long-term (current) use of anticoagulants, INR goal 2.0-3.0[ICD10: Z79.01] Diagnosis: Anemia, unspecified[ICD10: D64.9] Jeanie BLACK Jack Erwin CPT-4: 76982 06/20/2021 ([id number]) OFFICE/OUTPATIENT VISIT EST Diagnosis: Long-term (current) use of anticoagulants, INR goal 2.0-3.0[ICD10: Z79.01] Diagnosis: Essential (primary) hypertension[ICD10: I10] Diagnosis: Chronic congestive heart failure with left ventricular diastolic dysfunction[ICD10: I50.32] Diagnosis: Severe obesity (BMI 35.0-39.9) with comorbidity[ICD10: E66.01] Diagnosis: Chronic atrial fibrillation[ICD10: I48.20] Diagnosis: Obstructive sleep apnea syndrome[ICD10: G47.33] Remedios Buenrostrojuaneugene JEANIE OfeAxel VARUN [employer] [facility] CPT-4: 22215 05/16/2021 ([id number]) NURSE/OUTPATIENT VISIT EST Diagnosis: Hypothyroidism, unspecified[ICD10: E03.9] Diagnosis: Long-term (current) use of anticoagulants, INR goal 2.0-3.0[ICD10: Z79.01] Jeanie Hernandez DONISHAYDEEALBERTA [employer] [facility] CPT-4: 54265 04/11/2021 ([id number]) NURSE/OUTPATIENT VISIT EST Diagnosis: Long-term (current) use of anticoagulants, INR goal 2.0-3.0[ICD10: Z79.01] Jeanie CONNELL OfeAxel [employer] [facility] CPT-4: 21061 03/15/2021 ([id number]) OFFICE/OUTPATIENT VISIT EST Diagnosis: Essential hypertension[ICD10: I10] Diagnosis: Cheilitis[ICD10: K13.0] Diagnosis: Pulmonary hypertension[ICD10: I27.20] Jeanie Hernandez DONISHAYDEEALBERTA [employer] [facility] CPT-4: 11696 03/05/2021 ([id number]) NURSE/OUTPATIENT VISIT EST Diagnosis: Essential (primary) hypertension[ICD10: I10] Diagnosis: Hypothyroidism, unspecified[ICD10: E03.9] Diagnosis: Long-term (current) use of anticoagulants, INR goal 2.0-3.0[ICD10: Z79.01] Diagnosis: Mixed hyperlipidemia[ICD10: E78.2] Jeanie Hernandez VARUN [employer] [facility] CPT-4: 37825 02/22/2021 ([id number]) OFFICE/OUTPATIENT VISIT EST Diagnosis: Cheilitis[ICD10: K13.0] Diagnosis: Encounter for medication review and counseling[ICD10: Z71.89] Diagnosis: Long-term (current) use of anticoagulants, INR goal 2.0-3.0[ICD10: Z79.01] Diagnosis: Hypothyroidism, unspecified[ICD10: E03.9] Diagnosis: Mixed hyperlipidemia[ICD10: E78.2] Diagnosis: Severe obesity (BMI 35.0-39.9) with comorbidity[ICD10: E66.01] Diagnosis: Chronic congestive heart failure with left ventricular diastolic dysfunction[ICD10: I50.32] Remedios Dirk Hernandez VARUN [employer] [facility] CPT- 4: 26277 02/19/2021 ([id number]) OFFICE/OUTPATIENT VISIT EST Diagnosis: Cheilitis[ICD10: K13.0] Jannette Hernandez DONISHAYDEE ALBERTA [employer] [facility] CPT-4: 71597 01/16/2021 ([id number]) OFFICE/OUTPATIENT VISIT EST Diagnosis: Hypotension[ICD10: I95.9] Diagnosis: Dizziness[ICD10: R42] Jannette Hernandez DONISHAYDEEALBERTA [facility] CPT-4: 43117 11/12/2020 ([id number]) OFFICE/OUTPATIENT VISIT EST Diagnosis: Thoracic back pain[ICD10: M54.6] Diagnosis: Dizziness[ICD10: R42] Jannette BLACK DO [facility] CPT-4: 54298 10/12/2020 ([id number]) OFFICE/OUTPATIENT VISIT EST Diagnosis: Chronic atrial fibrillation[ICD10: I48.20] Diagnosis: Chronic airway obstruction, not elsewhere classified[ICD10: J44.9] Diagnosis: Essential hypertension[ICD10: I10] Jeanie Hernandez VARUN [employer] [facility] CPT-4: 23240 08/27/2020 ([id number]) OFFICE/OUTPATIENT VISIT EST Diagnosis: Essential (primary) hypertension[ICD10: I10] Diagnosis: Chronic atrial fibrillation[ICD10: I48.20] Diagnosis: COPD (chronic obstructive pulmonary disease)[ICD10: J44.9] Diagnosis: Dyspnea[ICD10: R06.00] Diagnosis: Left hip pain[ICD10: M25.552] Jeanie BLACK DO [facility] CPT-4: 99185 05/23/2020 ([id number]) NURSE/OUTPATIENT VISIT EST Diagnosis: Essential (primary) hypertension[ICD10: I10] Jeanie BLACK DO [facility] CPT-4: 57408 05/02/2020 ([id number]) OFFICE/OUTPATIENT VISIT EST Diagnosis: COPD (chronic obstructive pulmonary disease)[ICD10: J44.9] Diagnosis: Chronic atrial fibrillation[ICD10: I48.20] Diagnosis: Essential hypertension[ICD10: I10] [facility] CPT-[facility]: 04459 03/20/2020 ([id number]) NURSE/OUTPATIENT VISIT EST Diagnosis: Long-term (current) use of anticoagulants, INR goal 2.0-3.0[ICD10: Z79.01] Jeanie BLACK DO [facility] CPT-4: 01299 01/20/2020 ([id number]) OFFICE/OUTPATIENT VISIT EST Diagnosis: COPD (chronic obstructive pulmonary disease)[ICD10: J44.9] Diagnosis: Long-term (current) use of anticoagulants, INR goal 2.0-3.0[ICD10: Z79.01] Diagnosis: History of recent fall[ICD10: Z91.81] Jeanie BLACK DO [employer] CPT-4: 73728 12/15/2019 ([id number]) NURSE/OUTPATIENT VISIT EST Diagnosis: Long-term (current) use of anticoagulants, INR goal 2.0-3.0[ICD10: Z79.01] Jeanie BLACK DO [employer] CPT-4: 36218 11/10/2019 ([id number]) OFFICE/OUTPATIENT VISIT EST Diagnosis: Post concussion syndrome[ICD10: F07.81] Diagnosis: Head contusion[ICD10: S00.93XA] Diagnosis: Chronic airway obstruction, not elsewhere classified[ICD10: J44.9] Jeanie BLACK [employer] [facility] CPT-4: 70785 11/03/2019 ([id number]) OFFICE/OUTPATIENT VISIT EST Diagnosis: Fall as cause of accidental injury at home as place of occurrence[ICD10: W19.XXXA] Diagnosis: Headache[ICD10: R51] Diagnosis: Essential (primary) hypertension[ICD10: I10] Diagnosis: Long-term (current) use of anticoagulants, INR goal 2.0-3.0[ICD10: Z79.01] Diagnosis: Ecchymosis of left eye[ICD10: S05.12XA] Jannette ARNETTMARLENY David BLACK Jack Erwin CPT-4: 46606 10/31/2019 ([id number]) NURSE/OUTPATIENT VISIT EST Diagnosis: Long-term (current) use of anticoagulants, INR goal 2.0-3.0[ICD10: Z79.01] Jeanie Donishaydeealberta JENNINGSJEANIE David BLACK Jack Erwin CPT-4: 12494 10/26/2019 ([id number]) OFFICE/OUTPATIENT VISIT EST Diagnosis: Long-term (current) use of anticoagulants, INR goal 2.0-3.0[ICD10: Z79.01] Diagnosis: Pain in right arm[ICD10: M79.601] Diagnosis: Radiculopathy of arm[ICD10: M54.10] Jannette JENNINGSWalt HAMILTON David BLACK Jack Erwin CPT-4: 61185 10/11/2019 ([id number]) OFFICE/OUTPATIENT VISIT EST Diagnosis: Long-term (current) use of anticoagulants, INR goal 2.0-3.0[ICD10: Z79.01] Diagnosis: Sinusitis[ICD10: J32.9] Diagnosis: Pain in right arm[ICD10: M79.601] Jannette JENNINGSGABO Parra David BLACK Jack Erwin CPT-4: 23419 09/08/2019 ([id number]) NURSE/OUTPATIENT VISIT EST Diagnosis: Chronic atrial fibrillation[ICD10: I48.2] Diagnosis: Encounter for therapeutic drug level monitoring[ICD10: Z51.81] Jeanie CONNELL David BLACK Jack Erwin CPT-4: 88375 07/29/2019 ([id number]) NURSE/OUTPATIENT VISIT EST Diagnosis: Chronic atrial fibrillation[ICD10: I48.2] Diagnosis: Encounter for therapeutic drug level monitoring[ICD10: Z51.81] Jeanie BLACK DO [facility] CPT-4: 89121 07/18/2019 ([id number]) NURSE/OUTPATIENT VISIT EST Diagnosis: Encounter for therapeutic drug level monitoring[ICD10: Z51.81] Diagnosis: Chronic atrial fibrillation[ICD10: I48.2] Diagnosis: Essential (primary) hypertension[ICD10: I10] Jeanie BLACK DO [facility] CPT-4: 73637 07/06/2019 ([id number]) OFFICE/OUTPATIENT VISIT EST Diagnosis: Encounter for therapeutic drug level monitoring[ICD10: Z51.81] Diagnosis: Anemia, unspecified[ICD10: D64.9] Diagnosis: Bitten by dog, sequela[ICD10: W54.0XXS] 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] Jeanie BLACK [employer] [facility] CPT-4: 83731 06/14/2019 ([id number]) OFFICE/OUTPATIENT VISIT EST Diagnosis: Bitten by dog, sequela[ICD10: W54.0XXS] Diagnosis: Other fatigue[ICD10: R53.83] Diagnosis: Hypothyroidism, unspecified[ICD10: E03.9] Diagnosis: Muscle weakness (generalized)[ICD10: M62.81] Diagnosis: Generalized anxiety disorder[ICD10: F41.1] Jannette BLACK DO [employer] CPT-4: 46424 05/13/2019 ([id number]) NURSE/OUTPATIENT VISIT EST Diagnosis: Encounter for therapeutic drug level monitoring[ICD10: Z51.81] Jeanie BLACK Jack Erwin CPT-4: 52757 05/06/2019 ([id number]) OFFICE/OUTPATIENT VISIT EST Diagnosis: Bitten by dog, sequela[ICD10: W54.0XXS] Diagnosis: Pain in right wrist[ICD10: M25.531] Diagnosis: Abrasion of right upper arm, sequela[ICD10: S40.811S] Diagnosis: Abrasion of left upper arm, sequela[ICD10: S40.812S] Jannette BLACK Jack Erwin CPT-4: 45127 05/02/2019 ([id number]) NURSE/OUTPATIENT VISIT EST Diagnosis: Encounter for therapeutic drug level monitoring[ICD10: Z51.81] Jeanie Donishaydeealberta BLACK DO [employer] CPT-4: 30178 04/07/2019 ([id number]) OFFICE/OUTPATIENT VISIT NEW Diagnosis: Encounter for therapeutic drug level monitoring[ICD10: Z51.81] Diagnosis: Chronic atrial fibrillation[ICD10: I48.2] Diagnosis: Essential (primary) hypertension[ICD10: I10] Diagnosis: Abnormal findings on diagnostic imaging of heart and coronary circulation[ICD10: R93.1] Diagnosis: Other forms of dyspnea[ICD10: R06.09] Diagnosis: Hypothyroidism, unspecified[ICD10: E03.9] Diagnosis: Mixed hyperlipidemia[ICD10: E78.2] Jeanie JENNINGSPARAG BLACK Jack Erwin CPT-4: 29129 03/08/2019 Plan of Care Planned Activity Notes Codes Status Date Appointment: Jeanie Black WPtel: [address] [place] [address] US LAB 08/23/2021 Visit Plan: 08/20/2021 Visit Diagnosis Plan: Left breast lump Discussion: Jonas [place] get US of left breast and soft tissue under breast and f/u with results. F/U for sooner for concerns. ICD-9 : 611.72 ICD-10 : N63.20 08/20/2021 Appointment: Jeanie Black WPtel: [address] [place], [place] [phone] US CANCELED 08/20/2021 Appointment: Remedios Cavazos WPtel: [phone] [facility] ACUTE ILLNESS 08/20/2021 Patient Education: Patient Medication Summary Completed 08/20/2021 Appointment: Jeanie Black WPtel: [address] [place], [place] [phone] US see note in chart from 08/08/21 (km) CANCELED 08/08/2021 App[facility]ment: Jean[facility]Ptel[facility] [phone] [facility] [facility] 07/19/2021 Appointment: Jeanie Black WPtel[facility] [phone] [facility] [facility] 06/20/2021 Visit Diagnosis Plan: Severe obesity (BMI 35.0-39.9) w ith comorbidity Discussion: Discussed diet and exercise ICD-9 : 278.01 ICD-10 : E66.01 05/16/2021 Visit Diagnosis Plan: Obstructive sleep apnea syndrome Discussion: Per cira note- order for bipap sent to [facility]- will call them to check, patient states [...] 05/16/2021 Appointment: Remedios Cavazos [facility]Ptel[facility] [phone] [facility] [facility] MEDICATION REVIEW 05/16/2021 Patient Education: Patient Medication Summary Completed 05/16/2021 Patient Education: isosorbide mononitrate- [employer] Coupon [id number] https://www.[employer]/samplemd/resources/getResource/61/q0y8w1d5-f838-246q-q4 Completed 05/16/2021 Patient Education: High Blood Pressure Co mpleted 05/16/2021 Appointment: Jeanie Black WPtel: [address] [place], [place] [phone] US LAB 04/11/2021 Appointment: Jeanie Black WPtel: [address] [place], [place] [phone] US CANCELED 03/27/2021 Appointment: Jeanie Black WPtel: [address] [place], [place] [phone] US LAB 03/15/2021 Visit Diagnosis Plan: Pulmonary hypertension Discussio n: Dr. James referred to Dr. Guevara ICD-9 : 416.8 ICD-10 : I27.20 03/05/2021 Visit Diagnosis Plan: Cheilitis Discussion: Has impro ed with DC of spironolactone, amlodopine and famotodine ICD-9 : 528.5 ICD-10 : K13.0 03/05/2021 Visit Diagnosis Plan: Essential hypertension Discussio n: Stable with DC of meds ICD-9 : 401.9 ICD-10 : I10 03/05/2021 Appointment: Jeanie Black WPtel: [address] [place], [place] [phone] US FOLLOW UP 03/05/2021 Patient Education: spironolactone- [employer] Coupon 1 [id number] https://www.[employer] [place]ch/samplemd/resources/getResource/61/1ch75wa5-2d3c-0l33-8a Completed 03/05/2021 Appointment: Jeanie Black WPtel: [address] [place], [place] [phone] US LAB 02/22/2021 Visit Diagnosis Plan: Cheilitis [...] 02/19/2021 Appointment: Remedios Cavazos [facility]Ptel[facility] [phone] [facility] MEDICATION REVIEW 02/19/2021 Patient Education: Patient Medication Summary Completed 02/19/2021 Visit Diagnosis Plan: Cheilitis Discussion: symptoms s tarted after starting famotidine and spironolactone. discussed with patient that could be cheilitis vs angioedema so instructed to stop the spironolactone and famotidine and predni emilianoe prescribed to take as directed. samples of eucrisa given to be used bid. call office on thursday with update but to ED after hours with worsening symptoms/tongue swelling/dysphagia etc. ICD-9 : 528.5 ICD-10 : K13.0 01/16/2021 Appointment: Jannette Mayen [address] [place] [address] ACUTE ILLNESS 01/16/2021 Appointment: Jeanie Black WPtel: [phone] BP CHECK 11/19/2020 Visit Diagnosis Plan: [...] ICD-10 : I95.9 11/12/2020 Appointment: Jannette Mayen [address] [place] [address] ACUTE ILLNESS 11/12/2020 Visit Diagnosis Plan: Thoracic back pain Discussion: w alvarado [facility] for PT [facility] [employer] call office with any new or worsening [...] ICD-10 : R42 10/12/2020 Appointment: Jannette Mayen [address] [place] [address] ACUTE ILLNESS 10/12/2020 Visit Diagnosis Plan: Chronic atrial fibrillation Disc ussion: Following routinely with cardiology ICD-9 : 427.31 ICD-10 : I48.20 09/26/2020 Visit Diagnosis Plan: Essential (primary) hypertension Discussion: Stable ICD-9 : 401.9 ICD-10 : I10 09/26/2020 Visit Diagnosis Plan: Encounter for [facility] adult medical examination without abnormal findings [...] I50.32 09/26/2020 Appointment: Jeanie Black WPtel: [phone] [facility] US Annual Well Visit 09/26/2020 Care Plan: Referral Order SNOMED-CT : [id number] Pending 09/26/2020 Visit Diagnosis Plan: Chronic airway [...] I48.20 08/27/2020 Appointment: Jeanie Black WPtel: [phone] [facility] US FOLLOW UP 08/27/2020 Visit Diagnosis Plan: Dyspnea Discussion: Sees Cardiol ogy next month and will inquire about ECHO [...] : I10 05/23/2020 Appointment: Jeanie Black WPtel: [address] [place] [address] FOLLOW UP 05/23/2020 Appointment: Jeanie Black WPtel: [address] [place] [address] NURSE SERVICES 05/02/2020 Visit Diagnosis Plan: Chronic [...] : J44.9 03/20/2020 Appointment: Jeanie Black WPtel: [address] [place] [address] TELEMEDICINE 03/20/2020 Patient Education: Coumadin- [employer] Coupon [id number] https://www.[employer] [place].Lupatech/samplemd/resources/getResource/61/2y907g91-95d1-6tdn-6t Completed 03/20/2020 Patient Education: Coumadin- [employer] Coupon [id number] https://www.[employer]/samplemd/resources/getResource/61/9th80o7s-1t7p-6az1-vj Completed 03/20/2020 Appointment: Jeanie Black WPtel: [address] [place], [place] [phone] US LAB 01/20/2020 Visit Diagnosis Plan: History of recent fall Discussio n: Healing well Doing balance class at [facility] Follow Up: 3 months ICD-9 : V15.88 ICD-10 : Z91.81 12/15/2019 Visit Diagnosis Plan: COPD (chronic obstructive pulmon valeria disease) Discussion: Continue pulmonary rehab ICD-9 : 496 ICD-10 : J44.9 12/15/2019 Visit Diagnosis Plan: Long-term (current ) use of anticoagulants, INR goal 2.0-3.0 Discussion: PT/INR drawn ICD-9 : V58.61 ICD-10 : Z79.01 12/15/2019 Appointment: Jeanie Black WPtel: [address] [place], [place] [phone] US FOLLOW UP 12/15/2019 Patient Education: Coumadin- [employer] Coupon [id number] https://www.[employer]/Material Wrld/resources/getResource/61/l714rwar-bi53-3dos-4d Completed 12/15/2019 Appointment: Jeanie Black WPtel: [address] [place], [place] [phone] US LAB 11/10/2019 Visit Diagnosis Plan: Post [...] : J44.9 11/03/2019 Appointment: Jeanie Black WPtel: [address] [place], [place] [phone] US FOLLOW UP 11/03/2019 Care Plan: CT HEAD/BRAIN W/O DYE LOINC : 26563-6 Pending 11/01/2019 Visit Diagnosis Plan: Essential (primary) [...] ICD-10 : S05.12XA 10/31/2019 Appointment: Jannette Mayen [facility] [employer] [id number] Follow Up 10/31/2019 Patient Education: High Blood Pressure Co mpleted 10/31/2019 Patient Education: losartan- [employer] Coupon [id number] https://www.[employer] [place].Lupatech/samplemd/resources/getResource/61/6r554431-7m98-3646-8r Completed 10/31/2019 Appointment: Jeanie Black WPtel: [phone] [facility] FOLLOW UP 10/26/2019 Visit Diagnosis Plan: Long-term [...] PT ordered at [facility] to assist with pain. if no improvement or worsening from PT, will need imaging. ICD-9 : 723.4 ICD-10 : M54.10 10/11/2019 Appointment: Jannette Mayen [facility] [employer] [id number] AC[facility] 10/11/2019 Patient Education: cyclobenzaprine- [employer] Coupon [id number] [email or web address].com/samplemd/resources/getResource/[email or web address] Completed 10/11/2019 Visit Diagnosis Plan: Bitten by dog, sequcarlton Discussio n: Still seeing counselor Still doing therapy--left 4th finger still not agile enough to play violin and feels like pinched nerve in neck on right--dscussed stretches, massage, accupuncture---patient had hired civil litigation attorney ICD-9 : 906.1 ICD-10 : W54.0XXS 09/20/2019 Visit Diagnosis Plan: Encounter for the [facility] adult medical examination without abnormal findings [...] E78.2 09/20/2019 Appointment: Jeanie Black WPtel: [phone] [facility] Annual Well Visit 09/20/2019 Visit [...] ICD-10 : Z79.01 09/08/2019 Appointment: Jannette Mayen [address] [place] [address] ACUTE ILLNESS 09/08/2019 Appointment: Jeanie Black WPtel: [address] [place] [address] US CANCELED 08/16/2019 Appointment: Jeanie Black WPtel: [address] [place] [address] US LAB 07/29/2019 Appointment: Jeanie Black WPtel: [address] [place] [address] US LAB 07/18/2019 Appointment: Jeanie Black WPtel: [address] [place] [address] US LAB 07/06/2019 Visit Diagnosis Plan: Bitten by dog, halley Kinney n: Is seeing counselor which is helping [...] : D64.9 06/14/2019 Appointment: Jeanie Black WPtel: [address] [place] [address] FOLLOW UP 06/14/2019 Visit Diagnosis Plan: Generalized [...] hydrocodone several days ago. will refer to [facility] as well to discuss [...] ICD-10 : R53.83 05/13/2019 Appointment: Jannette Mayen [address] [place], [place] [id number] FOLLOW UP 05/13/2019 Patient Education: carvedilol- [employer] Coupon [id number] https://[email or web address].Lupatech/samplemd/resources/getResource/61/[email or web address]-[email or web address] Completed 05/13/2019 Patient Education: Xanax- [employer] C[employer]on [id number] https://www.[employer].com/samplemd/resources/getResource/61/[email or web address]-[email or web address].pdf Completed 05/13/2019 Appointment: Jeanie Black [facility]Ptel[facility] [phone] [facility] [facility] 05/06/2019 Visit Diagnosis Plan: [...] send results to dr. portillo at [facility]. ICD-9 : 719.43 ICD-10 : M25.531 05/02/2019 Appointment: Jannette Mayen [address] [place] [address] ACUTE ILLNESS 05/02/2019 Care Plan: X-RAY EXAM OF WRIST right LOINC : 3 7302-7 Pending 05/02/2019 Appointment: Jeanie Black WPtel: [address] [place] [address] LAB 04/07/2019 Appointment: Jeanie Black WPtel: [address] [place] [address] US BP CHECK 03/22/2019 Visit Diagnosis Plan: [...] : I10 03/08/2019 Appointment: Jeanie Black WPtel: [facility] NEW PATIENT 03/08/2019 Referral: Shona Viera WPtel: [facility] [address] Referral Appointment Requested Instructions No Instructions Medical Equipment No Medical Equipment data Health Concerns Section Health Concerns data not found Goals Section Goals data not found Interventions Section Interventions data not found Health Status Evaluations/Outcomes Section Health Status Evaluations/Outcomes data not found Advance Directives No Advance Directive data
--- OUTSIDE RECORDS SUMMARY | 2021-09-19 12:39 | XMS REPORT | CCD ---
Author Author Tricia Black D.O. 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 And Priming Operator Name Role Phone PP Unavailable CCM Unavailable Summary Purpose Interface Exchange Insurance Providers Payer name Policy type / Coverage type Covered republican ID Effective Begin Date Effective End Date WPS MEDICARE PART B [place] Medicare Part B [id number] Unknown Unknown AARP Medicare Part B [id number] Unknown Unknown Family history Grandmother Diagnosis Age [...] Unknown Retired 03/08/[address]: 630314885 Has never smoked or chewed tobacco 03/08/[address]: 690085 Currently drinks alcohol 03/08 Has the patient [...] Instructions isosorbide mononitrate 10 mg tablet RxNorm: 666743 Take 1 Tablet(s) Oral two times a day 08/08/2021 No Stop Date Active losartan 100 mg tablet RxNorm: 333201 Take 1 Tablet(s) Oral QD 07/2411/02/2021 Active amoxicillin 500 mg capsule RxNorm: 051818 4 Capsule(s) Oral QD 1hr prior to dental cleaning 08/05/2021 08/05/2021 Inactive levothyroxine 50 mcg tablet RxNorm: 823631 TAKE 1 TABLE T BY MOUTH EVERY DAY. RECHECK LABS IN 2 MONTHS 08/04/2021 10/02/2021 Active potassium chloride ER 10 mEq tablet,extended release RxNorm: 386646 TAKE 1 TABLET BY MOUTH EVERY DAY 07/14/2021 10/11/2021 Active spironolactone 25 mg tablet RxNorm: 497255 1/2 Tablet(s) Oral QD No Stop Date Active isosorbide mononitrate 10 mg tablet RxNorm: 929882 Take 1 Tablet(s) Oral two times a day 05/16/2021 05/16/2021 Inactive isosorbide mononitrate ER 30 mg tablet,extended release 24 h r RxNorm: 447858 TABLET(S) 1 TABLET(S) PO NEEDED Tablet(s) Oral 05/16/2021 08/07/2021 Inactive Patient requests 90 days supply furosemide 40 mg tablet RxNorm: 723350 TAKE 1 TABLET BY MOUTH E VERY MORNING 05/07/2021 08/04/2021 Inactive isosorbide mononitrate 10 mg tablet RxNorm: 630451 Take 1 Tablet(s) Oral two times a day 04/26/2021 05/15/2021 Inactive isosorbide mononitrate 10 mg tablet RxNorm: 482103 Take 1 Tablet(s) Oral two times a day 04/25/2021 04/25/2021 Inactive potassium chloride ER 10 mEq tablet,extended release RxNorm: 708401 TAKE 1 TABLET BY MOUTH EVERY DAY 04/19/2021 04/19/2021 Inactive Coumadin 4 mg tablet RxNorm: 762596 1 Tablet(s) Oral Thursday04/11/2021 07/10/2021 Inactive Coumadin 2 mg tablet RxNorm: 057948 1 Tablet(s) Oral on Thursday and Thursday04/11/2021 07/10/2021 Inactive carvedilol 25 mg tablet RxNorm: 472694 1 Tablet(s) Oral two antolin es a day 04/03/2021 09/29/2021 Active Coumadin 2 mg tablet RxNorm: 587832 TAKE 1 TABLET BY [facility] ON THURSDAY AND Thursday03/26/2021 04/10/2021 Inactive Coumadin 4 mg tablet RxNorm: 997288 1 Tablet(s) Oral QD 02/26/2021 Inactive levothyroxine 50 mcg tablet RxNorm: 809657 1 Tablet(s) Oral QD Recheck labs in 2 months 02/26/2021 02/26/2021 Inactive Recheck labs in 2 months levothyroxine 50 mcg tablet RxNorm: 218066 1 Tablet(s) Oral QD Recheck labs in 2 months 02/26/2021 02/25/2021 Inactive Recheck labs in 2 months losartan 100 mg tablet RxNorm: 669651 TAKE 1 TABLET BY MOUTH 02/22/2021 08/20/2021 Inactive spironolactone 25 mg tablet RxNorm: 933147 1 Tablet(s) Oral QD 01/2303/04/2021 Inactive isosorbide mononitrate 10 mg tablet RxNorm: 173680 1 Ta blet(s) Oral two times a day 02/19/2021 02/25/2021 Inactive famotidine 20 mg tablet RxNorm: 721753 1 Tablet(s) Oral QD 02/20/2003/04/2021 Inactive levothyroxine 25 mcg tablet RxNorm: 951914 1 Tablet(s) Oral QD 07/20212021 Inactive atorvastatin 40 mg tablet RxNorm: 145274 1 Tablet(s) Or al QPM replaces pravastatin 01/29/2021 07/27/2021 Inactive furosemide 40 mg tablet RxNorm: 941975 TAKE 1 TABLET BY MOUTH E VERY MORNING 01/28/2021 01/28/2021 Inactive prednisone 10 mg tablet RxNorm: 022695 1 Tablet(s) Oral two antolin es a day 01/16/2021 01/19/2021 Inactive atorvastatin 40 mg tablet RxNorm: 323979 1 Tablet(s) Or al QPM replaces pravastatin 12/31/2020 01/28/2021 Inactive carvedilol 25 mg tablet RxNorm: 976159 TAKE 1 TABLET BY MOUTH T WICE DAILY 12/31/2020 04/02/2021 Inactive potassium chloride ER 10 mEq tablet,extended release RxNorm: 237245 TAKE 1 TABLET BY MOUTH EVERY DAY 12/31/2020 12/31/2020 Inactive losartan 100 mg tablet RxNorm: 329620 1 Tablet(s) Oral QD 12/03/2020 02/21/2021 Inactive Coumadin 4 mg tablet RxNorm: 255227 TAKE 1 TABLET BY [facility] THURSDAY THROUGH Thursday11/30/2020 02/25/2021 Inactive levothyroxine 25 mcg tablet RxNorm: 086490 1 Tablet(s) Oral QD 10/2401/28/2021 Inactive famotidine 20 mg tablet RxNorm: 620104 1 Tablet(s) Oral QD 11/19/20 20 01/15/2021 Inactive famotidine 20 mg tablet RxNorm: 926173 1 Tablet(s) Oral QD 11/19/20 20 11/18/2020 Inactive levothyroxine 50 mcg tablet RxNorm: 493257 TAKE 1 TABLET BY ENE EVERY DAY 11/06/2020 01/29/2021 Inactive furosemide 40 mg tablet RxNorm: 765740 TAKE 1 TABLET BY MOUTH E VERY MORNING 11/05/2020 01/27/2021 Inactive atorvastatin 40 mg tablet RxNorm: 409518 1 Tablet(s) Or al QPM replaces pravastatin 10/22/2020 12/30/2020 Inactive atorvastatin 40 mg tablet RxNorm: 171124 1 Tablet(s) Or al QPM replaces pravastatin 10/22/2020 10/21/2020 Inactive spironolactone 25 mg tablet RxNorm: 176849 1 Tablet(s) Oral QAM 01/15/2021 Inactive carvedilol 25 mg tablet RxNorm: 039766 TAKE 1 TABLET BY MOUTH T WICE DAILY 10/04/2020 12/30/2020 Inactive pravastatin 40 mg tablet RxNorm: 573804 TAKE 1 TABLET BY MOUTH EVERY DAY 10/04/2020 12/31/2020 Inactive potassium chloride ER 10 mEq tablet,extended release RxNorm: 283252 TAKE 1 TABLET BY MOUTH EVERY DAY 10/04/2020 12/30/2020 Inactive isosorbide mononitrate ER 30 mg tablet,extended release 24 h r RxNorm: 534354 TABLET(S) 1 TABLET(S) PO NEEDED Oral 10/04/2020 02/18/2021 Inactive Patient requests 90 days supply furosemide 40 mg tablet RxNorm: 456553 TAKE 1 TABLET BY MOUTH E VERY MORNING 10/01/2020 11/04/2020 Inactive losartan 100 mg tablet RxNorm: 991832 TAKE 1 TABLET BY MOUTH EV 09/19/2020 12/02/2020 Inactive amlodipine 5 mg tablet RxNorm: 637300 1 Tablet(s) Oral QD 08/27/2020 11/11/2020 Inactive spironolactone 25 mg tablet RxNorm: 387996 1 Tablet(s) Oral QAM 03/202010/21/2020 Inactive levothyroxine 50 mcg tablet RxNorm: 635524 TAKE 1 TABLET BY ENE TH EVERY DAY 08/07/2020 11/04/2020 Inactive levothyroxine 50 mcg tablet RxNorm: 968744 TAKE 1 TABLET BY ENE TH EVERY DAY 08/06/2020 08/06/2020 Inactive amoxicillin 500 mg capsule RxNorm: 322422 4 Capsule(s) Oral QD 1hr prior to dental cleaning 07/31/2020 07/30/2020 Inactive amoxicillin 500 mg capsule RxNorm: 214750 4 Capsule(s) Oral QD 1hr prior to dental cleaning 07/31/2020 07/31/2020 Inactive potassium chloride ER 10 mEq tablet,extended release RxNorm: 006905 TAKE 1 TABLET BY MOUTH EVERY DAY 07/23/2020 10/03/2020 Inactive pravastatin 40 mg tablet RxNorm: 609497 TAKE 1 TABLET BY MOUTH EVERY DAY 07/23/2020 10/03/2020 Inactive carvedilol 25 mg tablet RxNorm: 338818 TAKE 1 TABLET BY MOUTH T WICE DAILY 07/23/2020 10/03/2020 Inactive losartan 100 mg tablet RxNorm: 247008 TAKE 1 TABLET BY MOUTH EV RANDI DAY 06/27/2020 09/18/2020 Inactive furosemide 40 mg tablet RxNorm: 930813 TAKE 1 TABLET BY MOUTH E VERY MORNING 06/08/2020 09/30/2020 Inactive Coumadin 4 mg tablet RxNorm: 254294 1 Tablet(s) Oral Thursday thr thursday06/07/2020 11/29/2020 Inactive Coumadin 2 mg tablet RxNorm: 322250 1 Tablet(s) Oral on and Thursday03/20/2020 03/19/2020 Inactive Coumadin 4 mg tablet RxNorm: 937898 1 Tablet(s) Oral Thursday thr thursday03/20/2020 06/06/2020 Inactive losartan 100 mg tablet RxNorm: 573076 TAKE 1 TABLET BY MOUTH EV RANDI DAY 03/20/2020 06/26/2020 Inactive Coumadin 2 mg tablet RxNorm: 355196 1 Tablet(s) Oral on and Thursday03/20/2020 02/25/2021 Inactive furosemide 40 mg tablet RxNorm: 228497 1 Tablet(s) Oral [facility] 020 06/07/2020 Inactive pravastatin 40 mg tablet RxNorm: 252024 TAKE 1 TABLET BY MOUTH EVERY DAY 02/07/2020 07/22/2020 Inactive losartan 100 mg tablet RxNorm: 561604 TAKE 1 TABLET BY MOUTH EV RANDI DAY 02/01/2020 03/19/2020 Inactive losartan 100 mg tablet RxNorm: 030663 TAKE 1 TABLET BY MOUTH EV RANDI DAY 01/17/2020 01/31/2020 Inactive Coumadin 2 mg tablet RxNorm: 525494 1 Tablet(s) Oral on and Thursday12/15/2019 12/15/2019 Inactive furosemide 40 mg tablet RxNorm: 917123 TAKE 1 TABLET BY MOUTH E VERY MORNING 12/14/2019 03/12/2020 Inactive pravastatin 40 mg tablet RxNorm: 180951 TAKE 1 TABLET BY MOUTH EVERY DAY 11/27/2019 02/06/2020 Inactive losartan 100 mg tablet RxNorm: 516564 1 Tablet(s) Oral QD 11/10/2019 01/16/2020 Inactive isosorbide mononitrate ER 30 mg tablet,extended release 24 h r RxNorm: 057958 TABLET(S) 1 TABLET(S) PO NEEDED 11/10/2019 05/08/2020 Inactive Patient requests 90 days supply carvedilol 25 mg tablet RxNorm: 237552 1 Tablet(s) Oral two antolin es a day 11/10/2019 05/08/2020 Inactive Coumadin 2 mg tablet RxNorm: 263271 1 Tablet(s) Oral on and Thursday11/10/2019 12/14/2019 Inactive losartan 100 mg tablet RxNorm: 967705 1 Tablet(s) Oral QD 11/10/2019 11/09/2019 Inactive levothyroxine 50 mcg tablet RxNorm: 512606 1 Tablet(s) Oral QD 10/2310/21/2020 Inactive Coumadin 4 mg tablet RxNorm: 684789 1 Tablet(s) Oral Thursday thr thursday11/10/2019 11/10/2019 Inactive losartan 50 mg tablet RxNorm: 062067 2 Tablet(s) Oral QD 11/01/2019 1 01/10/2019 Inactive potassium chloride ER 10 mEq capsule,extended release RxNorm : 638717 1 Capsule(s) Oral QD 10/26/2019 12/14/2019 Inactive potassium chloride ER 10 mEq tablet,extended release RxNorm: 594865 1 TABLET(S) ORAL QD 10/22/2019 04/18/2020 Inactive Replaces PA on 1 0MEQ Capsules Aspir-81 mg tablet,delayed release RxNorm: 856979 1 Tablet(s) O ral QD 10/11/2019 No Stop Date Active cyclobenzaprine 5 mg tablet RxNorm: 989192 1 Tablet(s) Oral two times a day as needed for muscle spasm 10/11/2019 03/19/2020 Inactive Coumadin 4 mg tablet RxNorm: 818370 1 Tablet(s) Oral Mo through Thursday and 1/2 tablet (2mg) on Sat/Sun 10/11/2019 11/09/2019 Inactive potassium chloride ER 10 mEq tablet,extended release RxNorm: 723230 1 Tablet(s) Oral QD 09/22/2019 09/21/2019 Inactive Replaces PA on 1 0MEQ Capsules potassium chloride ER 10 mEq tablet,extended release RxNorm: 819630 1 Tablet(s) Oral QD 09/22/2019 10/10/2019 Inactive Replaces PA on 1 0MEQ Capsules potassium chloride ER 10 mEq capsule,extended release RxNorm : 759232 1 Capsule(s) Oral QD 09/21/2019 09/21/2019 Inactive carvedilol 25 mg tablet RxNorm: 012759 1 Tablet(s) Oral two antolin es a day 08/23/2019 11/09/2019 Inactive isosorbide mononitrate ER 30 mg tablet,extended release 24 h r RxNorm: 956624 TABLET(S) 1 TABLET(S) PO NEEDED 08/22/2019 10/04/2020 Inactive Patient requests 90 days supply isosorbide mononitrate ER 30 mg tablet,extended release 24 h r RxNorm: 465508 Tablet(s) 1 TABLET(S) PO NEEDED 08/16/2019 08/21/2019 Inactive Patient requests 90 days supply levothyroxine 50 mcg tablet RxNorm: 720323 1 Tablet(s) PO QD 201811/09/2019 Inactive isosorbide mononitrate ER 30 mg tablet,extended release 24 h r RxNorm: 249197 Tablet(s) 1 TABLET(S) PO NEEDED 06/27/2019 08/15/2019 Inactive Patient requests 90 days supply isosorbide mononitrate ER 30 mg tablet,extended release 24 h r RxNorm: 634271 1 Tablet(s) PO QD as needed 06/27/2019 06/27/2019 Inactive Neris ent requests 90 days supply carvedilol 25 mg tablet RxNorm: 879196 1 TABLET(S) PO BID 06/27/2019 08/22/2019 Inactive furosemide 40 mg tablet RxNorm: 259075 1 Tablet(s) PO QAM 06/21/2019 12/13/2019 Inactive carvedilol 25 mg tablet RxNorm: 642867 1 Tablet(s) PO BID 05/13/2019 06/26/2019 Inactive Xanax 0.25 mg tablet RxNorm: 482088 1/2 Tablet(s) PO Q6H as needed 05/13/2019 09/07/2019 Inactive levothyroxine 50 mcg tablet RxNorm: 303458 1 Tablet(s) PO QD 201808/07/2019 Inactive losartan 50 mg tablet RxNorm: 516473 1 Tablet(s) PO QD 04/26/2019 Inactive losartan 50 mg tablet RxNorm: 664499 1 Tablet(s) PO QD 04/20/201901/2019 Inactive pravastatin 40 mg tablet RxNorm: 584095 1 Tablet(s) PO QD 04/07/2019 06/05/2019 Inactive isosorbide mononitrate ER 30 mg tablet,extended release 24 h r RxNorm: 286701 1 Tablet(s) PO as needed 04/07/2019 04/06/2019 Inactive isosorbide mononitrate ER 30 mg tablet,extended release 24 h r RxNorm: 599178 1 TABLET(S) PO NEEDED 04/07/2019 06/26/2019 Inactive Patient requests 90 days supply losartan 50 mg tablet RxNorm: 360607 1 Tablet(s) PO QD 03/22/2019 Inactive Prolia subcutaneous RxNorm: 452028 subcutaneous 02/19/2021 A ctive carvedilol 25 mg tablet RxNorm: 001381 1 Tablet(s) PO BID 05/13/2019 05/12/2019 Inactive losartan 50 mg tablet RxNorm: 730824 1 Tablet(s) PO QD 03/22/2019 Inactive Ventolin HFA 90 mcg/actuation aerosol inhaler RxNorm: 343276 1-2 Puff(s) INH as needed 09/08/2019 09/07/2019 Inactive furosemide 40 mg tablet RxNorm: 713068 1 Tablet(s) PO QAM 06/21/2019 06/20/2019 Inactive pravastatin 40 mg tablet RxNorm: 161944 1 Tablet(s) PO QD 04/07/2019 04/06/2019 Inactive Coumadin 2 mg tablet RxNorm: 108366 1 Tablet(s) PO Mon, Fri, Sat and Sun then 2 tablets (4mg) on , Thu and 10/11/2019 10/10/2019 Inactive isosorbide mononitrate ER 30 mg tablet,extended release 24 h r RxNorm: 679430 Tablet(s) PO as needed 04/07/2019 04/06/2019 Inactive Women's Multivitamin 18 mg iron-400 mcg-500 mg tablet RxNorm : 1 Tablet(s) PO QD 09/08/2019 09/07/2019 Inactive Vitamin D3 1000 units Capsule RxNorm: 3 Capsule(s) PO QD 9 09/07/2019 Inactive vitamin B complex capsule RxNorm: 1 Capsule(s) PO QD 09/08/2019 Inactive potassium chloride ER 10 mEq capsule,extended release RxNorm : 762795 1 Capsule(s) PO QD 09/21/2019 09/20/2019 Inactive levothyroxine 50 mcg tablet RxNorm: 317901 1 Tablet(s) PO QD 201804/25/2019 Inactive Medication Administered No Medication Administered data Immunizations Vaccine Codes Date Status Influenza CVX: 135 08/23/2021 Complete Influenza CVX: 135 07/06/2020 Pneumovax CVX: 33 02/03/2020 Influenza CVX: 135 07/02/2019 Results Observation Observation Code Item Item Code Result Date S ervice Location PT 0262599 PT 35.6 Seconds 08/23/2021 Unknow n PT [id number] INR 3.5 08/23/2021 Unknown PT 1328121 PT 28.3 Seconds 07/19/2021 Unknow n PT [id number] INR 2.6 07/19/2021 Unknown COMPREHENSIVE METABOLIC 26699 AST 20 U/L 2020 Unknown COMPREHENSIVE METABOLIC 11004 ALT 16 U/L 2020 Unknown COMPREHENSIVE METABOLIC 56696 BUN 35 mg/dL 2020 Unknown COMPREHENSIVE METABOLIC 75204 ALBUMIN 4.1 g/dL 2020 Unknown COMPREHENSIVE METABOLIC 51698 CHLORIDE 105 mmol/L 06/20 Unknown COMPREHENSIVE METABOLIC 48084 Bili Total 1.1 mg/dL 06/20 Unknown COMPREHENSIVE METABOLIC 32430 ALK PHOS 103 U/L 2020 Unknown COMPREHENSIVE METABOLIC 14605 SODIUM 139 mmol/L 06/20 Unknown COMPREHENSIVE METABOLIC 82168 CREATININE 0.99 mg/dL 05/24 Unknown COMPREHENSIVE METABOLIC 70095 CALCIUM 8.8 mg/dL 2020 Unknown COMPREHENSIVE METABOLIC 57424 POTASSIUM 4.7 mmol/L 06/20 Unknown COMPREHENSIVE METABOLIC 55859 Total Protein 6.2 g/dL Unknown COMPREHENSIVE METABOLIC 02239 Glucose 83 mg/dL 2020 Unknown COMPREHENSIVE METABOLIC 94184 Bicarbonate 27 mmol/L 05/24 Unknown COMPREHENSIVE METABOLIC 21319 AGAP 7 mmol/L 2020 Unknown COMPLETE BLOOD COUNT 7159719 WBC 4.5 10e9/L 06/20/20 21 Unknown COMPLETE BLOOD COUNT [id number] RBC 3.99 10e12/L 2020 Unknown COMPLETE BLOOD COUNT [id number] HEMOGLOBIN 11.8 g/dL 06/20/20 21 Unknown COMPLETE BLOOD COUNT [id number] HEMATOCRIT 36.6 % 06/20/20 21 Unknown COMPLETE BLOOD COUNT [id number] MCV 91.7 fL 1 Unknown COMPLETE BLOOD COUNT [id number] MCH 29.6 pg 1 Unknown COMPLETE BLOOD COUNT [id number] MCHC 32.2 g/dL 1 Unknown COMPLETE BLOOD COUNT 9576002 PLATELET COUNT 180 10e9/L Unknown COMPLETE BLOOD COUNT 2454428 Mean Plt Volume 11.1 fL Unknown COMPLETE BLOOD COUNT 7007864 Neut Auto 64.7 % 1 Unknown COMPLETE BLOOD COUNT [id number] Lymph Auto 19.6 % 06/20/20 21 Unknown COMPLETE BLOOD COUNT 9287943 [place] Auto 13.5 % 1 Unknown COMPLETE BLOOD COUNT 7198960 RDW 15.1 % 1 Unknown COMPLETE BLOOD COUNT [id number] Eos Auto 1.8 % 1 Unknown COMPLETE BLOOD COUNT 8854370 Baso Auto 0.4 % 1 Unknown COMPLETE BLOOD COUNT [id number] Neutrophil Abs 2.91 10e9/L Unknown COMPLETE BLOOD COUNT [id number] Lymphocyte Abs 0.88 10e9/L Unknown COMPLETE BLOOD COUNT [id number] Monocyte Abs 0.61 10e9/L 05/24 Unknown COMPLETE BLOOD COUNT [id number] Eosinophil Abs 0.08 10e9/L Unknown COMPLETE BLOOD COUNT [id number] RDW-SD 49.5 fL Unknown COMPLETE BLOOD COUNT 7326550 Basophil Abs 0.02 10e9/L 05/24 Unknown GFR CALC 6551572 GFR Non Afr Amr 53 mL/min 06/20/2021 Unk nown GFR CALC [id number] GFR Afr Amr >60 mL/min 06/20/2021 Unknow n PT [id number] PT 27.4 Seconds 06/20/2021 Unknow n PT 0373864 INR 2.5 06/20/2021 Unknown PT 8225801 PT 25.8 Seconds 05/21/2021 Unknow n PT [id number] INR 2.3 05/21/2021 Unknown FREE T4 39051 T4 Free 1.19 ng/dL 04/11/2021 Unknown PT [id number] PT 33.6 Seconds 04/11/2021 Unknow n PT [id number] INR 3.3 04/11/2021 Unknown THYROID STIMULATING HORMONE 17282 TSH 3.912 uIU/mL 04/11/2021 Unknown PT [id number] PT 33.1 Seconds 03/15/2021 Unknow n PT [id number] INR 3.2 03/15/2021 Unknown PT [id number] PT 24.6 Seconds 05/23/2020 Unknow n PT [id number] INR 2.2 05/23/2020 Unknown PT [id number] PT 31.4 Seconds 10/26/2019 Unknow n PT [id number] INR 2.9 10/26/2019 Unknown PT 1631350 PT 17.6 Seconds 10/11/2019 Unknow n PT [id number] INR 1.4 10/11/2019 Unknown PT [id number] PT 23.7 Seconds 09/08/2019 Unknow n PT [id number] INR 2.0 09/08/2019 Unknown PT [id number] PT 23.2 Seconds 07/29/2019 Unknow n PT [id number] INR 2.0 07/29/2019 Unknown PT [id number] PT 14.3 Seconds 07/18/2019 Unknow n PT [id number] INR 1.1 07/18/2019 [place] [address] Glucose 75 mg/dL 07/06 [place] [address] CREATININE 0.61 mg/dL [place] [address] BUN 15 mg/dL 07/06 [place] [address] SODIUM 142 mmol/L 06/23 [place] [address] POTASSIUM 4.0 mmol/L 06/23 [place] [address] CHLORIDE 106 mmol/L 06/23 [place] [address] Bicarbonate 28 mmol/[place] [address] AGAP 8 mmol/L 07/06 [place] [address] CALCIUM 9.3 mg/dL 07/06 Unknown PT [id number] PT 17.4 Seconds 07/06/2019 Unknow n PT [id number] INR 1.4 07/06/2019 Unknown GFR CALC 6799869 GFR Non Afr Amr >60 mL/min 07/06/2019 Un known GFR CALC [id number] GFR Afr Amr >60 mL/min 07/06/2019 Unknow n COMPLETE BLOOD COUNT [id number] WBC 4.7 10e9/L 07/06/20 19 Unknown COMPLETE BLOOD COUNT [id number] RBC 4.19 10e12/L 2018 Unknown COMPLETE BLOOD COUNT 6130871 HEMOGLOBIN 12.6 g/dL 07/06/20 19 Unknown COMPLETE BLOOD COUNT 8089415 HEMATOCRIT 39.4 % 07/06/20 19 Unknown COMPLETE BLOOD COUNT 3023083 MCV 94.0 fL 9 Unknown COMPLETE BLOOD COUNT 3861751 MCH 30.1 pg 9 Unknown COMPLETE BLOOD COUNT 4455099 MCHC 32.0 g/dL 9 Unknown COMPLETE BLOOD COUNT 7120726 PLATELET COUNT 160 10e9/L Unknown COMPLETE BLOOD COUNT 5881697 Mean Plt Volume 11.0 fL Unknown COMPLETE BLOOD COUNT 4905604 Neut Auto 56.6 % 9 Unknown COMPLETE BLOOD COUNT [id number] Lymph Auto 27.0 % 07/06/20 19 Unknown COMPLETE BLOOD COUNT 2217855 [place] Auto 13.7 % 9 Unknown COMPLETE BLOOD COUNT 7501984 RDW 14.6 % 9 Unknown COMPLETE BLOOD COUNT 5455838 Eos Auto 2.1 % 9 Unknown COMPLETE BLOOD COUNT 1775557 Baso Auto 0.6 % 9 Unknown COMPLETE BLOOD COUNT 2816088 Neutrophil Abs 2.66 10e9/L Unknown COMPLETE BLOOD COUNT 1960702 Lymphocyte Abs 1.27 10e9/L Unknown COMPLETE BLOOD COUNT 7747443 Monocyte Abs 0.64 10e9/L 06/23 Unknown COMPLETE BLOOD COUNT 8167388 Eosinophil Abs 0.10 10e9/L Unknown COMPLETE BLOOD COUNT 4277316 RDW-SD 48.7 fL 9 Unknown COMPLETE BLOOD COUNT 1792138 Basophil Abs 0.03 10e9/L 06/23 Unknown COMPLETE BLOOD COUNT [id number] WBC 4.6 10e9/L 06/14/20 19 Unknown COMPLETE BLOOD COUNT [id number] RBC 4.16 10e12/L 2018 Unknown COMPLETE BLOOD COUNT [id number] HEMOGLOBIN 12.6 g/dL 06/14/20 19 Unknown COMPLETE BLOOD COUNT 9551745 HEMATOCRIT 39.1 % 06/14/20 19 Unknown COMPLETE BLOOD COUNT [id number] MCV 94.0 fL 9 Unknown COMPLETE BLOOD COUNT [id number] MCH 30.3 pg 9 Unknown COMPLETE BLOOD COUNT 6629085 MCHC 32.2 g/dL 9 Unknown COMPLETE BLOOD COUNT 7846839 PLATELET COUNT 167 10e9/L Unknown COMPLETE BLOOD COUNT 4684012 Mean Plt Volume 10.9 fL Unknown COMPLETE BLOOD COUNT 7868105 Neut Auto 59.6 % 9 Unknown COMPLETE BLOOD COUNT [id number] Lymph Auto 24.1 % 06/14/20 19 Unknown COMPLETE BLOOD COUNT 2037570 [place] Auto 14.0 % 9 Unknown COMPLETE BLOOD COUNT 1095343 RDW 14.8 % 9 Unknown COMPLETE BLOOD COUNT 3666834 Eos Auto 1.9 % 9 Unknown COMPLETE BLOOD COUNT 4674262 Baso Auto 0.4 % 9 Unknown COMPLETE BLOOD COUNT 4926575 Neutrophil Abs 2.74 10e9/L Unknown COMPLETE BLOOD COUNT 8968676 Lymphocyte Abs 1.11 10e9/L Unknown COMPLETE BLOOD COUNT [id number] Monocyte Abs 0.64 10e9/L 05/24 Unknown COMPLETE BLOOD COUNT [id number] Eosinophil Abs 0.09 10e9/L Unknown COMPLETE BLOOD COUNT 3580386 RDW-SD 49.3 fL 9 Unknown COMPLETE BLOOD COUNT [id number] Basophil Abs 0.02 10e9/L 05/24 Unknown PT [id number] PT 22.3 Seconds 06/14/2019 Unknow n PT [id number] INR 1.9 06/14/2019 Unknown COMPLETE BLOOD COUNT [id number] WBC 4.0 10e9/L 05/13/20 19 Unknown COMPLETE BLOOD COUNT [id number] RBC 3.82 10e12/L 2018 Unknown COMPLETE BLOOD COUNT [id number] HEMOGLOBIN 11.5 g/dL 05/13/20 19 Unknown COMPLETE BLOOD COUNT [id number] HEMATOCRIT 36.4 % 05/13/20 19 Unknown COMPLETE BLOOD COUNT 9290189 MCV 95.3 fL 9 Unknown COMPLETE BLOOD COUNT [id number] MCH 30.1 pg 9 Unknown COMPLETE BLOOD COUNT 5199549 MCHC 31.6 g/dL 9 Unknown COMPLETE BLOOD COUNT 8475039 PLATELET COUNT 175 10e9/L Unknown COMPLETE BLOOD COUNT 2925101 Mean Plt Volume 10.5 fL Unknown COMPLETE BLOOD COUNT 3085938 Neut Auto 63.2 % 9 Unknown COMPLETE BLOOD COUNT 0771994 Lymph Auto 22.0 % 05/13/20 19 Unknown COMPLETE BLOOD COUNT 6539235 [place] Auto 12.1 % 9 Unknown COMPLETE BLOOD COUNT 4334042 RDW 14.9 % 9 Unknown COMPLETE BLOOD COUNT 7880710 Eos Auto 2.2 % 9 Unknown COMPLETE BLOOD COUNT 2508575 Baso Auto 0.5 % 9 Unknown COMPLETE BLOOD COUNT 0593700 Neutrophil Abs 2.53 10e9/L Unknown COMPLETE BLOOD COUNT 5668931 Lymphocyte Abs 0.88 10e9/L Unknown COMPLETE BLOOD COUNT [id number] Monocyte Abs 0.48 10e9/L 04/24 Unknown COMPLETE BLOOD COUNT 5418174 Eosinophil Abs 0.09 10e9/L Unknown COMPLETE BLOOD COUNT 0425909 RDW-SD 49.6 fL 9 Unknown COMPLETE BLOOD COUNT 9046559 Basophil Abs 0.02 10e9/L 04/24 Unknown COMPREHENSIVE METABOLIC 42638 AST 18 U/L 2018 Unknown COMPREHENSIVE METABOLIC 67148 ALT 14 U/L 2018 Unknown COMPREHENSIVE METABOLIC 93416 BUN 15 mg/dL 2018 Unknown COMPREHENSIVE METABOLIC 21163 ALBUMIN 4.0 g/dL 2018 Unknown COMPREHENSIVE METABOLIC 64047 CHLORIDE 108 mmol/L 05/13 Unknown COMPREHENSIVE METABOLIC 30272 Bili Total 0.9 mg/dL 05/13 Unknown COMPREHENSIVE METABOLIC 01515 ALK PHOS 84 U/L 2018 Unknown COMPREHENSIVE METABOLIC 83486 SODIUM 142 mmol/L 05/13 Unknown COMPREHENSIVE METABOLIC 48009 CREATININE 0.72 mg/dL 04/24 Unknown COMPREHENSIVE METABOLIC 96453 CALCIUM 8.9 mg/dL 2018 Unknown COMPREHENSIVE METABOLIC 78290 POTASSIUM 4.0 mmol/L 05/13 Unknown COMPREHENSIVE METABOLIC 50816 Total Protein 5.5 g/dL Unknown COMPREHENSIVE METABOLIC 04564 Glucose 95 mg/dL 2018 Unknown COMPREHENSIVE METABOLIC 14624 Bicarbonate 27 mmol/L 04/24 Unknown COMPREHENSIVE METABOLIC 45801 AGAP 7 mmol/L 2018 Unknown GFR CALC [id number] GFR Non Afr Amr >60 mL/min 05/13/2019 Un known GFR CALC [id number] GFR Afr Amr >60 mL/min 05/13/2019 Unknow n THYROID STIMULATING HORMONE 92590 TSH 2.669 uIU/mL 05/13/2019 Unknown FREE T4 87103 T4 Free 1.19 ng/dL 05/13/2019 Unknown PT [id number] PT 24.2 Seconds 05/06/2019 Unknow n PT [id number] INR 2.1 05/06/2019 Unknown PT [id number] PT 24.1 Seconds 03/08/2019 Unknow n PT [id number] INR 2.9 03/08/2019 Unknown Procedures Procedure Codes Date FLU VACC PRSV FREE INC ANTIG 65 AND OLDER CPT-4: 75485 08/23/2021 ROUTINE VENIPUNCTURE CPT-4: 57092 08/23/2021 PROTHROMBIN TIME CPT-4: 53812 08/23/2021 FLU VACC PRSV FREE INC ANTIG 65 AND OLDER CPT-4: 81533 08/23/2021 ADMIN INFLUENZA VIRUS VAC CPT-4: G0008 08/23/2021 ROUTINE VENIPUNCTURE CPT-4: 83967 07/19/2021 PROTHROMBIN TIME CPT-4: 25888 07/19/2021 ROUTINE VENIPUNCTURE CPT-4: 91047 06/20/2021 COMPREHEN METABOLIC PANEL CPT-4: 01604 06/20/2021 COMPLETE CBC W/AUTO DIFF WBC CPT-4: 92616 06/20/2021 PROTHROMBIN TIME CPT-4: 75968 06/20/2021 PT CPT-4: 2609117 05/16/2021 ROUTINE VENIPUNCTURE CPT-4: 92923 05/16/2021 ROUTINE VENIPUNCTURE CPT-4: 54484 04/11/2021 PROTHROMBIN TIME CPT-4: 94730 04/11/2021 ASSAY OF FREE THYROXINE CPT-4: 84520 04/11/2021 ASSAY THYROID STIM HORMONE CPT-4: 46082 04/11/2021 ROUTINE VENIPUNCTURE CPT-4: 13328 03/15/2021 PT CPT-4: 4924406 03/15/2021 ROUTINE VENIPUNCTURE CPT-4: 62094 02/22/2021 COMPREHEN METABOLIC PANEL CPT-4: 88293 02/22/2021 ASSAY OF FREE THYROXINE CPT-4: 97218 02/22/2021 ASSAY THYROID STIM HORMONE CPT-4: 83096 02/22/2021 COMPLETE CBC W/AUTO DIFF WBC CPT-4: 12931 02/22/2021 PROTHROMBIN TIME CPT-4: 77256 02/22/2021 LIPID PANEL CPT-4: 43611 02/22/2021 PPPS, subseq visit CPT-4: G0439 09/26/2020 ROUTINE VENIPUNCTURE CPT-4: 75997 05/23/2020 PROTHROMBIN TIME CPT-4: 70136 05/23/2020 ROUTINE VENIPUNCTURE CPT-4: 83649 01/20/2020 PT CPT-4: 7884434 01/20/2020 ROUTINE VENIPUNCTURE CPT-4: 88267 12/15/2019 PROTHROMBIN TIME CPT-4: 90080 12/15/2019 ROUTINE VENIPUNCTURE CPT-4: 14813 11/10/2019 PROTHROMBIN TIME CPT-4: 16649 11/10/2019 PROTHROMBIN TIME CPT-4: 66215 10/26/2019 ROUTINE VENIPUNCTURE CPT-4: 75372 10/26/2019 ROUTINE VENIPUNCTURE CPT-4: 15582 10/11/2019 PT CPT-4: 0548212 10/11/2019 PPPS, initial visit CPT-4: G0438 09/20/2019 ROUTINE VENIPUNCTURE CPT-4: 04642 09/08/2019 PT CPT-4: 2178748 09/08/2019 THER/PROPH/DIAG INJ SC/IM CPT-4: 04598 09/08/2019 TRIAMCINOLONE ACET INJ NOS CPT-4: J3301 09/08/2019 ROUTINE VENIPUNCTURE CPT-4: 06858 07/29/2019 PT CPT-4: 2344858 07/29/2019 ROUTINE VENIPUNCTURE CPT-4: 24237 07/18/2019 PT CPT-4: 1985423 07/18/2019 METABOLIC PANEL TOTAL CA CPT-4: 42874 07/06/2019 COMPLETE CBC W/AUTO DIFF WBC CPT-4: 85557 07/06/2019 PROTHROMBIN TIME CPT-4: 67002 07/06/2019 ROUTINE VENIPUNCTURE CPT-4: 80369 06/14/2019 PROTHROMBIN TIME CPT-4: 38988 06/14/2019 COMPLETE CBC W/AUTO DIFF WBC CPT-4: 58136 06/14/2019 ROUTINE VENIPUNCTURE CPT-4: 68169 05/13/2019 COMPREHEN METABOLIC PANEL CPT-4: 34028 05/13/2019 COMPLETE CBC W/AUTO DIFF WBC CPT-4: 71888 05/13/2019 ASSAY THYROID STIM HORMONE CPT-4: 21541 05/13/2019 ASSAY OF FREE THYROXINE CPT-4: 22122 05/13/2019 PT CPT-4: 6789179 05/06/2019 ROUTINE VENIPUNCTURE CPT-4: 35246 05/06/2019 PT CPT-4: 0473053 04/07/2019 ROUTINE VENIPUNCTURE CPT-4: 15720 04/07/2019 ROUTINE VENIPUNCTURE CPT-4: 84055 03/08/2019 PROTHROMBIN TIME CPT-4: 71222 03/08/2019 Vital Signs Date Vital 08/20/2021 Blood Pressure 1: 127/69 Code: 8480-6 Heart Rate 1: 84 bpm Respiratory Rate: 17 bpm SpO2: 98% Temperature: 36.7 (C) / 98.1 (F) We ight: 208 lbs Code: 77271-7 05/16/2021 Blood Pressure 1: 136/64 Code: 8480-6 BMI: 37.0 Code: 14628-2 Heart Rate 1: 61 bpm Height: 5'3" Code: 8302-2 Respiratory Rate: 16 bpm SpO2: 98% Temperature: 36.2 (C) / 97.1 (F) Weight: 212 lbs Code: 67435-7 03/05/2021 Blood Pressure 1: 134/76 Code: 8480-6 Heart Rate 1: 66 bpm Respiratory Rate: 16 bpm SpO2: 100% Temperature: 37.1 (C) / 98.7 (F) We ight: 203 lbs Code: 73194-1 02/19/2021 Blood Pressure 1: 126/70 Code: 8480-6 BMI: 35.4 Code: 93339-7 Heart Rate 1: 72 bpm Height: 5'3" Code: 8302-2 Respiratory Rate: 16 bpm SpO2: 99% Temperature: 36.3 (C) / 97.3 (F) Weight: 203 lbs Code: 71258-1 01/16/2021 Blood Pressure 1: 112/74 Code: 8480-6 Heart Rate 1: 76 bpm Respiratory Rate: 20 bpm Temperature: 36.7 (C) / 98.0 (F) Weight: 205 lbs Code : 10326-4 11/19/2020 Blood Pressure 1: 120/78 Code: 8480-6 Heart Rate 1: 88 bpm Temperature: 36.6 (C) / 97.8 (F) 11/12/2020 Blood Pressure 1: 110/57 Code: 8480-6 Heart Rate 1: 68 bpm Respiratory Rate: 15 bpm SpO2: 100% Weight: 202 lbs Code: 60601 -7 10/12/2020 Blood Pressure 1: 114/70 Code: 8480-6 Heart Rate 1: 84 bpm Respiratory Rate: 18 bpm SpO2: 98% Temperature: 36.7 (C) / 98.0 (F) 09/26/2020 Blood Pressure 1: 120/72 Code: 8480-6 BMI: 35.2 Code: 62254-0 Heart Rate 1: 76 bpm Height: 5'3" Code: 8302-2 Respiratory Rate: 20 bpm SpO2: 97% Temperature: 36.7 (C) / 98.0 (F) Weight: 202 lbs Code: 31904-8 08/27/2020 Blood Pressure 1: 126/82 Code: 8480-6 Heart Rate 1: 80 bpm Respiratory Rate: 20 bpm Temperature: 36.2 (C) / 97.1 (F) Weight: 198 lbs Code : 85976-9 05/23/2020 Blood Pressure 1: 120/78 Code: 8480-6 Heart Rate 1: 68 bpm Respiratory Rate: 20 bpm SpO2: 97% Temperature: 36.4 (C) / 97.5 (F) We ight: 200 lbs Code: 30323-7 05/02/2020 Blood Pressure 1: 133/81 Code: 8480-6 Heart Rate 1: 74 bpm Weight: 202 lbs Code: 00458-6 12/15/2019 Blood Pressure 1: 126/82 Code: 8480-6 Heart Rate 1: 64 bpm Respiratory Rate: 20 bpm SpO2: 97% Temperature: 36.6 (C) / 97.8 (F) We ight: 201 lbs Code: 88930-0 11/03/2019 Blood Pressure 1: 142/82 Code: 8480-6 [...] / 98.1 (F) Weight: 204 lbs Code: 28033-2 09/20/2019 Blood Pressure 1: 122/68 Code: 8480-6 BMI: 35.0 Code: 32430-6 Heart Rate 1: 72 bpm Height: 5'3" Code: 8302-2 Respiratory Rate: 18 bpm SpO2: 95% Temperature: 36.8 (C) / 98.3 (F) Weight: 201 lbs Code: 70252-5 09/08/2019 Blood Pressure 1: 118/72 Code: 8480-6 Heart Rate 1: 82 bpm SpO2: 97% Temperature: 36.3 (C) / 97.4 (F) Weight: 208 lbs Code: 50468-1 06/14/2019 Blood Pressure 1: 128/84 Code: 8480-6 Heart Rate 1: 72 bpm Respiratory Rate: 20 bpm SpO2: 98% Temperature: 36.7 (C) / 98.1 (F) We ight: 209 lbs Code: 32667-3 05/13/2019 Blood Pressure 1: 144/90 Code: 8480-6 Heart Rate 1: 88 bpm Respiratory Rate: 24 bpm SpO2: 96% Temperature: 37.1 (C) / 98.8 (F) We ight: 210 lbs Code: 06016-6 05/02/2019 Blood Pressure 1: 128/80 Code: 8480-6 Heart Rate 1: 84 bpm Respiratory Rate: 20 bpm SpO2: 95% Temperature: 36.6 (C) / 97.9 (F) We ight: 209 lbs Code: 32567-8 03/22/2019 Blood Pressure 1: 122/70 Code: 8480-6 He art Rate 1: 85 bpm 03/08/2019 Blood Pressure 1: 114/78 Code: 8480-6 BMI: 36.1 Code: 20922-3 Heart Rate 1: 76 bpm Height: 5'3" Code: 8302-2 Respiratory Rate: 20 bpm SpO2: 97% Temperature: 37.1 (C) / 98.8 (F) Weight: 207 lbs Code: 42444-4 Functional Status No Functional Status data Reason [...] visit Encounters Encounter Performer Location Codes Date ([id number]) NURSE/OUTPATIENT VISIT EST Diagnosis: Chronic atrial fibrillation[ICD10: I48.20] Diagnosis: Long-term (current) use of anticoagulants, INR goal 2.0-3.0[ICD10: Z79.01] Diagnosis: FLU VACCINE[ICD10: Z23] Jeanie PINZON [employer] CPT-4: 03492 08/23/2021 ([id number]) OFFICE/OUTPATIENT VISIT EST Diagnosis: Breast pain, left[ICD10: N64.4] Diagnosis: Left breast lump[ICD10: N63.20] Remedios Dirk BLACK [employer] CPT-4: 89543 08/20/2021 ([id number]) NURSE/OUTPATIENT VISIT EST Diagnosis: Long-term (current) use of anticoagulants, INR goal 2.0-3.0[ICD10: Z79.01] Jeanie BLACK [employer] CPT-4: 40787 07/19/2021 ([id number]) NURSE/OUTPATIENT VISIT EST Diagnosis: Essential (primary) hypertension[ICD10: I10] Diagnosis: Chronic atrial fibrillation[ICD10: I48.20] Diagnosis: Long-term (current) use of anticoagulants, INR goal 2.0-3.0[ICD10: Z79.01] Diagnosis: Anemia, unspecified[ICD10: D64.9] Jeanie BLACK [employer] CPT-4: 01245 06/20/2021 ([id number]) OFFICE/OUTPATIENT VISIT EST Diagnosis: Long-term (current) use of anticoagulants, INR goal 2.0-3.0[ICD10: Z79.01] Diagnosis: Essential (primary) hypertension[ICD10: I10] Diagnosis: Chronic congestive heart failure with left ventricular diastolic dysfunction[ICD10: I50.32] Diagnosis: Severe obesity (BMI 35.0-39.9) with comorbidity[ICD10: E66.01] Diagnosis: Chronic atrial fibrillation[ICD10: I48.20] Diagnosis: Obstructive sleep apnea syndrome[ICD10: G47.33] Remedios BLACK [place] [facility] CPT-4: 29635 05/16/2021 ([id number]) NURSE/OUTPATIENT VISIT EST Diagnosis: Hypothyroidism, unspecified[ICD10: E03.9] Diagnosis: Long-term (current) use of anticoagulants, INR goal 2.0-3.0[ICD10: Z79.01] Jeanie CONNELL David BLACK [place] [facility] CPT-4: 24140 04/11/2021 ([id number]) NURSE/OUTPATIENT VISIT EST Diagnosis: Long-term (current) use of anticoagulants, INR goal 2.0-3.0[ICD10: Z79.01] Jeanie CONNELL OfeAxel VARUN [place] [facility] CPT-4: 21605 03/15/2021 ([id number]) OFFICE/OUTPATIENT VISIT EST Diagnosis: Essential hypertension[ICD10: I10] Diagnosis: Cheilitis[ICD10: K13.0] Diagnosis: Pulmonary hypertension[ICD10: I27.20] Jeanie AGUILERA OfeAxel VARUN [place] [facility] CPT-4: 33788 03/05/2021 ([id number]) NURSE/OUTPATIENT VISIT EST Diagnosis: Essential (primary) hypertension[ICD10: I10] Diagnosis: Hypothyroidism, unspecified[ICD10: E03.9] Diagnosis: Long-term (current) use of anticoagulants, INR goal 2.0-3.0[ICD10: Z79.01] Diagnosis: Mixed hyperlipidemia[ICD10: E78.2] Jeanie MCKEE OfeAxel VARUN [place] [facility] CPT-4: 69797 02/22/2021 ([id number]) OFFICE/OUTPATIENT VISIT EST Diagnosis: Cheilitis[ICD10: K13.0] Diagnosis: Encounter for medication review and counseling[ICD10: Z71.89] Diagnosis: Long-term (current) use of anticoagulants, INR goal 2.0-3.0[ICD10: Z79.01] Diagnosis: Hypothyroidism, unspecified[ICD10: E03.9] Diagnosis: Mixed hyperlipidemia[ICD10: E78.2] Diagnosis: Severe obesity (BMI 35.0-39.9) with comorbidity[ICD10: E66.01] Diagnosis: Chronic congestive heart failure with left ventricular diastolic dysfunction[ICD10: I50.32] Remedios JENNINGSLINE OfeAxel VARUN [facility] CPT- 4: 79883 02/19/2021 ([id number]) OFFICE/OUTPATIENT VISIT EST Diagnosis: Cheilitis[ICD10: K13.0] Jannette JENNINGSLINE David PINZON DO [facility] CPT-4: 27268 01/16/2021 ([id number]) OFFICE/OUTPATIENT VISIT EST Diagnosis: Hypotension[ICD10: I95.9] Diagnosis: Dizziness[ICD10: R42] Jannette JENNINGSLINE OfeAxel VARUN [facility] C CPT-4: 94790 11/12/2020 ([id number]) OFFICE/OUTPATIENT VISIT EST Diagnosis: Thoracic back pain[ICD10: M54.6] Diagnosis: Dizziness[ICD10: R42] Jannette JENNINGSLINE OfeAxel VARUN MCCURDY C CPT-4: 22276 10/12/2020 ([id number]) OFFICE/OUTPATIENT VISIT EST Diagnosis: Chronic atrial fibrillation[ICD10: I48.20] Diagnosis: Chronic airway obstruction, not elsewhere classified[ICD10: J44.9] Diagnosis: Essential hypertension[ICD10: I10] Jeanie MCKEE OfeAxel VARUN MCCUR[facility] CPT-4: 69175 08/27/2020 ([id number]) OFFICE/OUTPATIENT VISIT EST Diagnosis: Essential (primary) hypertension[ICD10: I10] Diagnosis: Chronic atrial fibrillation[ICD10: I48.20] Diagnosis: COPD (chronic obstructive pulmonary disease)[ICD10: J44.9] Diagnosis: Dyspnea[ICD10: R06.00] Diagnosis: Left hip pain[ICD10: M25.552] Jeanie CONNELL OfeAxel VARUN MCCURDY [facility] CPT-4: 06785 05/23/2020 ([id number]) NURSE/OUTPATIENT VISIT EST Diagnosis: Essential (primary) hypertension[ICD10: I10] Jeaniecristhian BLACK [place] [facility] CPT-4: 88835 05/02/2020 ([id number]) OFFICE/OUTPATIENT VISIT EST Diagnosis: COPD (chronic obstructive pulmonary disease)[ICD10: J44.9] Diagnosis: Chronic atrial fibrillation[ICD10: I48.20] Diagnosis: Essential hypertension[ICD10: I10] [facility] CPT-4: 53551 03/20/2020 ([id number]) NURSE/OUTPATIENT VISIT EST Diagnosis: Long-term (current) use of anticoagulants, INR goal 2.0-3.0[ICD10: Z79.01] Jeanie BLACK DO [facility] CPT-4: 25724 01/20/2020 ([id number]) OFFICE/OUTPATIENT VISIT EST Diagnosis: COPD (chronic obstructive pulmonary disease)[ICD10: J44.9] Diagnosis: Long-term (current) use of anticoagulants, INR goal 2.0-3.0[ICD10: Z79.01] Diagnosis: History of recent fall[ICD10: Z91.81] Jeanie BLACK [employer] CPT-4: 38399 12/15/2019 ([id number]) NURSE/OUTPATIENT VISIT EST Diagnosis: Long-term (current) use of anticoagulants, INR goal 2.0-3.0[ICD10: Z79.01] Jeanie BLACK [employer] CPT-4: 84470 11/10/2019 ([id number]) OFFICE/OUTPATIENT VISIT EST Diagnosis: Post concussion syndrome[ICD10: F07.81] Diagnosis: Head contusion[ICD10: S00.93XA] Diagnosis: Chronic airway obstruction, not elsewhere classified[ICD10: J44.9] Jeanie BLACK [place] [facility] CPT-4: 70189 11/03/2019 ([id number]) OFFICE/OUTPATIENT VISIT EST Diagnosis: Fall as cause of accidental injury at home as place of occurrence[ICD10: W19.XXXA] Diagnosis: Headache[ICD10: R51] Diagnosis: Essential (primary) hypertension[ICD10: I10] Diagnosis: Long-term (current) use of anticoagulants, INR goal 2.0-3.0[ICD10: Z79.01] Diagnosis: Ecchymosis of left eye[ICD10: S05.12XA] Jannette BLACK DO [employer] CPT-4: 55903 10/31/2019 ([id number]) NURSE/OUTPATIENT VISIT EST Diagnosis: Long-term (current) use of anticoagulants, INR goal 2.0-3.0[ICD10: Z79.01] Jeanie BLACK DO [facility] CPT-4: 07942 10/26/2019 ([id number]) OFFICE/OUTPATIENT VISIT EST Diagnosis: Long-term (current) use of anticoagulants, INR goal 2.0-3.0[ICD10: Z79.01] Diagnosis: Pain in right arm[ICD10: M79.601] Diagnosis: Radiculopathy of arm[ICD10: M54.10] Jannette BLACK [employer] CPT-4: 55639 10/11/2019 ([id number]) OFFICE/OUTPATIENT VISIT EST Diagnosis: Long-term (current) use of anticoagulants, INR goal 2.0-3.0[ICD10: Z79.01] Diagnosis: Sinusitis[ICD10: J32.9] Diagnosis: Pain in right arm[ICD10: M79.601] Jannette BLACK [employer] CPT-4: 85343 09/08/2019 ([id number]) NURSE/OUTPATIENT VISIT EST Diagnosis: Chronic atrial fibrillation[ICD10: I48.2] Diagnosis: Encounter for therapeutic drug level monitoring[ICD10: Z51.81] Jeanie BLCAK [employer] CPT-4: 72385 07/29/2019 ([id number]) NURSE/OUTPATIENT VISIT EST Diagnosis: Chronic atrial fibrillation[ICD10: I48.2] Diagnosis: Encounter for therapeutic drug level monitoring[ICD10: Z51.81] Jeanie BLACK [employer] CPT-4: 48325 07/18/2019 ([id number]) NURSE/OUTPATIENT VISIT EST Diagnosis: Encounter for therapeutic drug level monitoring[ICD10: Z51.81] Diagnosis: Chronic atrial fibrillation[ICD10: I48.2] Diagnosis: Essential (primary) hypertension[ICD10: I10] Jeanie BLACK DO [facility] CPT-4: 36005 07/06/2019 ([id number]) OFFICE/OUTPATIENT VISIT EST Diagnosis: Encounter for therapeutic drug level monitoring[ICD10: Z51.81] Diagnosis: Anemia, unspecified[ICD10: D64.9] Diagnosis: Bitten by dog, sequela[ICD10: W54.0XXS] 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] Jeanie BLACK DO [facility] CPT-4: 09684 06/14/2019 ([id number]) OFFICE/OUTPATIENT VISIT EST Diagnosis: Bitten by dog, sequela[ICD10: W54.0XXS] Diagnosis: Other fatigue[ICD10: R53.83] Diagnosis: Hypothyroidism, unspecified[ICD10: E03.9] Diagnosis: Muscle weakness (generalized)[ICD10: M62.81] Diagnosis: Generalized anxiety disorder[ICD10: F41.1] Jannette BLACK [employer] CPT-4: 55624 05/13/2019 ([id number]) NURSE/OUTPATIENT VISIT EST Diagnosis: Encounter for therapeutic drug level monitoring[ICD10: Z51.81] Jeanie BLACK [employer] CPT-4: 08839 05/06/2019 ([id number]) OFFICE/OUTPATIENT VISIT EST Diagnosis: Bitten by dog, sequela[ICD10: W54.0XXS] Diagnosis: Pain in right wrist[ICD10: M25.531] Diagnosis: Abrasion of right upper arm, sequela[ICD10: S40.811S] Diagnosis: Abrasion of left upper arm, sequela[ICD10: S40.812S] Jannette BLACK DO [facility] CPT-4: 85287 05/02/2019 ([id number]) NURSE/OUTPATIENT VISIT EST Diagnosis: Encounter for therapeutic drug level monitoring[ICD10: Z51.81] Jeanie BLACK DO [facility] CPT-4: 92740 04/07/2019 ([id number]) OFFICE/OUTPATIENT VISIT NEW Diagnosis: Encounter for therapeutic drug level monitoring[ICD10: Z51.81] Diagnosis: Chronic atrial fibrillation[ICD10: I48.2] Diagnosis: Essential (primary) hypertension[ICD10: I10] Diagnosis: Abnormal findings on diagnostic imaging of heart and coronary circulation[ICD10: R93.1] Diagnosis: Other forms of dyspnea[ICD10: R06.09] Diagnosis: Hypothyroidism, unspecified[ICD10: E03.9] Diagnosis: Mixed hyperlipidemia[ICD10: E78.2] Jeanie BLACK DO [facility] CPT-4: 14450 03/08/2019 Plan of Care Planned Activity Notes Codes Status Date Visit Plan: 08/20/2021 Visit Diagnosis Plan: Left breast lump Discussion: [facility] [place] get US of left breast and soft tissue under breast and f/u with results. F/U for sooner for concerns. ICD-9 : 611.72 ICD-10 : N63.20 08/20/2021 Appointment: Jeanie Black WPtel: [address] [place] [address] US CANCELED 08/20/2021 Appointment: Remedios Cavazos WPtel: [address] [place] [address] ACUTE ILLNESS 08/20/2021 Patient Education: Patient Medication Summary Completed 08/20/2021 Appointment: Jeanie Black WPtel: [address] [place] [address] see note in chart from 08/08/21 (km) CANCELED 08/08/2021 Appointment: Jeanie Black WPtel: [address] [place], [place] [phone] US LAB 07/19/2021 Appointment: Jeanie Black WPtel: [address] [place], [place] [phone] US LAB 06/20/2021 Visit Diagnosis Plan: Severe obesity (BMI 35.0-39.9) w ith comorbidity Discussion: Discussed diet and exercise ICD-9 : 278.01 ICD-10 : E66.01 05/16/2021 Visit Diagnosis Plan: Obstructive sleep apnea syndrome Discussion: Per pulm note- order for bipap sent to [facility]- will call them to check, patient states she has not been contacted regarding this yet ICD-9 : 327.23 ICD-10 : G47.33 05/16/2021 Visit Diagnosis Plan: Chronic atrial fibrillation Disc ussion: stable ICD-9 : 427.31 ICD-10 : I48.20 05/16/2021 Visit Diagnosis Plan: Chronic congestive heart failure with left ventricular diastolic dysfunction Discussion: Per pulm- continue isosorbid e ER 30 mg and [...] 05/16/2021 Appointment: Remedios Cavazos WPtel: [address] [facility] [place] MEDICATION REVIEW 05/16/2021 Patient Education: Patient Medication Summary Completed 05/16/2021 Patient Education: isosorbide mononitrate- [employer] Coupon [id number] https://www.[employer]/samplemd/resources/getResource/61/m8r1k9v5-y766-118n-p8 Completed 05/16/2021 Patient Education: High Blood Pressure Co mpleted 05/16/2021 Appointment: [facility] [address] [facility] [facility] 04/11/2021 Appointment: Jean[facility]el[facility] [address] [facility] [facility] CANC[facility]ED 03/27/2021 Appointment: Jeanie Black WPtel: [address] [place], [place] [id number] US LAB 03/15/2021 Visit Diagnosis Plan: Pulmonary [...] : 401.9 ICD-10 : I10 03/05/2021 Appointment: Jenaie Black WPtel: [address] [place], [place] [id number] US FOLLOW UP 03/05/2021 Patient Education: spironolactone- [employer] Coupon 1 [id number] https://www.[employer]/samplemd/resources/getResource/61/3wh25bd6-4j8e-8c76-1r Completed 03/05/2021 Appointment: Jeanie Black WPtel: [address] [place], [place] [id number] US LAB 02/22/2021 Visit Diagnosis Plan: Cheilitis [...] 272.4 ICD-10 : E78.2 02/19/2021 Appointment: Remedios Cavazostel: [address] [facility] MEDICATION REVIEW 02/19/2021 Patient Education: Patient Medication [...] ICD-10 : K13.0 01/16/2021 Appointment: Jannette Mayen [address] [place], [place] [id number] ACUTE ILLNESS 01/16/2021 Appointment: Jeanie Blacktelizett: [id number] BP CHECK 11/19/2020 Visit Diagnosis Plan: Hypotension [...] ICD-10 : I95.9 11/12/2020 Appointment: Jannette Mayen [address] [place] [address] ACUTE ILLNESS 11/12/2020 Visit Diagnosis Plan: Thoracic back pain Discussion: w ill send order for PT through [employer]. call office with any new or worsening [...] ICD-10 : R42 10/12/2020 Appointment: Jannette Mayen [address] [place] [address] ACUTE ILLNESS 10/12/2020 Visit Diagnosis Plan: Chronic atrial fibrillation Disc ussion: Following routinely with cardiology ICD-9 : 427.31 ICD-10 : I48.20 09/26/2020 Visit Diagnosis Plan: Essential (primary) hypertension Discussion: Stable ICD-9 : 401.9 ICD-10 : I10 09/26/2020 Visit Diagnosis Plan: Encounter for [facility] adult medical examination without abnormal findings [...] : I50.32 09/26/2020 Appointment: Jeanie Black WPtel: [address] [place], [place] [id number] US Annual Well Visit 09/26/2020 Care Plan: Referral Order SNOMED-CT : [id number] Pending 09/26/2020 Visit Diagnosis Plan: Chronic airway [...] : I48.20 08/27/2020 Appointment: Jeanie Black WPtel: [address] [place] [id number] US FOLLOW UP 08/27/2020 Visit Diagnosis Plan: [...] : I10 05/23/2020 Appointment: Jeanie Black WPtel: [address] [place] [id number] US FOLLOW UP 05/23/2020 Appointment: Jeanie Black WPtel: [address] [place], [place] [phone] NURSE SERVICES 05/02/2020 Visit Diagnosis Plan: Chronic [...] : J44.9 03/20/2020 Appointment: Jeanie Black WPtel: [address] [place], [place] [phone] TELEMEDICINE 03/20/2020 Patient Education: Coumadin- [employer] Coupon [id number] https://www.[employer]Guru/resources/getResource/61/3s403k26-34l7-5qds-5u Completed 03/20/2020 Patient Education: Coumadin- [employer] Coupon [id number] https://www.[employer]/resources/getResource/61/4rg86l5x-8x3l-5tr6-kd Completed 03/20/2020 Appointment: Jeanie Black WPtel: [address] [place], [place] [phone] LAB 01/20/2020 Visit Diagnosis Plan: History of recent fall Discussio n: Healing well Doing balance class at [facility] Follow Up: 3 months ICD-9 : V15.88 ICD-10 : Z91.81 12/15/2019 Visit Diagnosis Plan: COPD (chronic obstructive pulmon valeria disease) Discussion: Continue pulmonary rehab ICD-9 : 496 ICD-10 : J44.9 12/15/2019 Visit Diagnosis Plan: Long-term (current ) use of anticoagulants, INR goal 2.0-3.0 Discussion: PT/INR drawn ICD-9 : V58.61 ICD-10 : Z79.01 12/15/2019 Appointment: Jeanie Black WPtel: [address] [place], [place] [phone] US FOLLOW UP 12/15/2019 Patient Education: Coumadin- [employer] Coupon [id number] https://www.[employer]/samplemd/resources/getResource/61/f824ejph-mk45-3ych-5l Completed 12/15/2019 Appointment: Jeanie Black WPtel: [address] [place], [place] [phone] US LAB 11/10/2019 Visit Diagnosis Plan: Post [...] : J44.9 11/03/2019 Appointment: Jeanie Black WPtel: [address] [place] [address] FOLLOW UP 11/03/2019 Care Plan: CT HEAD/BRAIN W/O DYE LOINC : 45409-0 Pending 11/01/2019 Visit Diagnosis Plan: Essential (primary) [...] ICD-10 : S05.12XA 10/31/2019 Appointment: Jannette Mayen [address] [place] [id number] Hospital Follow Up 10/31/2019 Patient Education: High Blood Pressure Co mpleted 10/31/2019 Patient Education: losartan- [employer] Coupon [id number] https://www.[employer]/samplemd/resources/getResource/61/2o636846-6j80-6300-7n Completed 10/31/2019 Appointment: Jean[facility] Black [facility]Ptel[facility] [address] [facility] FO[facility] 10/26/2019 Visit Diagnosis Plan: [...] PT ordered at [facility] to assist with pain. if no improvement or worsening from PT, will need imaging. ICD-9 : 723.4 ICD-10 : M54.10 10/11/2019 Appointment: Jannette Mayen [address] [place], [place] [phone] ACUTE ILLNESS 10/11/2019 Patient Education: cyclobenzaprine- [employer] Coupon [id number] https://www.[employer].com/samplemd/resources/getResource/61/68m7o4s1-75l2-9a26-56 Completed 10/11/2019 Visit Diagnosis Plan: Bitten by dog, sequela Discussio n: Still seeing counselor Still doing therapy--left 4th finger still not agile enough to play violin and feels like pinched nerve in neck on right--dscussed stretches, massage, accupuncture---patient had hired developer [employer] ICD-9 : 906.1 ICD-10 : W54.0XXS 09/20/2019 Visit Diagnosis Plan: Encounter for [facility] adult medical examination without abnormal findings [...] : E78.2 09/20/2019 Appointment: Jeanie Black WPtel: [address] [place] [address] Annual Well Visit 09/20/2019 Visit Diagnosis Plan: [...] ICD-10 : Z79.01 09/08/2019 Appointment: Jannette Mayen [address] [place] [address] ACUTE ILLNESS 09/08/2019 Appointment: Jeanie Black WPtel: [address] [place], [place] [phone] US CANCELED 08/16/2019 Appointment: Jeanie Black WPtel: [address] [place], [place] [phone] US LAB 07/29/2019 Appointment: Jeanie Black WPtel: [address] [place], [place] [phone] US LAB 07/18/2019 Appointment: Jeanie Black WPtel: [id number] US LAB 07/06/2019 Visit Diagnosis Plan: Bitten [...] : D64.9 06/14/2019 Appointment: Jeanie Black WPtel: [address] [place], [place] [phone] US FOLLOW UP 06/14/2019 Visit Diagnosis Plan: [...] will refer to [facility] as well to discuss concerns. [...] ICD-10 : R53.83 05/13/2019 Appointment: Jannette Mayen [address] [place], [place] [phone] FOLLOW UP 05/13/2019 Patient Education: carvedilol- [employer] [id number] [email or web address]/[email or web address] Completed 05/13/2019 Patient Education: Xanax- OptimizeRX Coupon [id number] [email or web address] Completed 05/13/2019 Appointment: Jeanie Black WPtel: [phone] [facility] US LAB 05/06/2019 Visit Diagnosis Plan: Abrasion [...] : M25.531 05/02/2019 Appointment: Jannette Mayen [address] ACUTE ILLNESS 05/02/2019 Care Plan: X-RAY EXAM OF WRIST right LOINC : 3 [id number] Pending 05/02/2019 Appointment: Jeanie Black WPtel: [address] [place] [address] US LAB 04/07/2019 Appointment: Jeanie Black WPtel: [address] [place] [address] US BP CHECK 03/22/2019 Visit Diagnosis Plan: [...] I10 03/08/2019 [facility] [phone] [facility] [facility] 03/08/2019 Referral: Shona Viera WPtel: [facility] [address] [facility] Referral Appointment Requested Instructions No Instructions Medical Equipment No Medical Equipment data Health Concerns Section Health Concerns data not found Goals Section Goals data not found Interventions Section Interventions data not found Health Status Evaluations/Outcomes Section Health Status Evaluations/Outcomes data not found Advance Directives No Advance Directive data
--- OUTSIDE RECORDS SUMMARY | 2021-09-19 12:40 | XMS REPORT | CCD ---
Author Author Tricia Black D.O. Organization [facility] Address [address] [place] [address] Phone Care Team Providers Care Radio Time Sales Supervisor Name Role Phone PP Unavailable CCM Unavailable Summary Purpose Interface Exchange Insurance Providers Payer name Policy type / Coverage type Covered constitution party ID Effective Begin Date Effective End Date WPS MEDICARE PART B [place] Medicare Part B [id number] Unknown Unknown AARP Medicare Part B [id number] Unknown Unknown Family history Grandmother Diagnosis Age [...] Unknown Retired 03/08/[address]: 958995951 Has never smoked or chewed tobacco 03/08/[address]: 902670 Currently drinks alcohol 03/08 Has the patient [...] Instructions isosorbide mononitrate 10 mg tablet RxNorm: 492535 Take 1 Tablet(s) Oral two times a day 08/08/2021 No Stop Date Active losartan 100 mg tablet RxNorm: 333579 Take 1 Tablet(s) Oral QD 07/2411/02/2021 Active amoxicillin 500 mg capsule RxNorm: 492628 4 Capsule(s) Oral QD 1hr prior to dental cleaning 08/05/2021 08/05/2021 Inactive levothyroxine 50 mcg tablet RxNorm: 510149 TAKE 1 TABLE T BY MOUTH EVERY DAY. RECHECK LABS IN 2 MONTHS 08/04/2021 10/02/2021 Active potassium chloride ER 10 mEq tablet,extended release RxNorm: 423925 TAKE 1 TABLET BY MOUTH EVERY DAY 07/14/2021 10/11/2021 Active spironolactone 25 mg tablet RxNorm: 102035 1/2 Tablet(s) Oral QD No Stop Date Active isosorbide mononitrate 10 mg tablet RxNorm: 650000 Take 1 Tablet(s) Oral two times a day 05/16/2021 05/16/2021 Inactive isosorbide mononitrate ER 30 mg tablet,extended release 24 h r RxNorm: 635791 TABLET(S) 1 TABLET(S) PO NEEDED Tablet(s) Oral 05/16/2021 08/07/2021 Inactive Patient requests 90 days supply furosemide 40 mg tablet RxNorm: 723701 TAKE 1 TABLET BY MOUTH E VERY MORNING 05/07/2021 08/04/2021 Inactive isosorbide mononitrate 10 mg tablet RxNorm: 497593 Take 1 Tablet(s) Oral two times a day 04/26/2021 05/15/2021 Inactive isosorbide mononitrate 10 mg tablet RxNorm: 444685 Take 1 Tablet(s) Oral two times a day 04/25/2021 04/25/2021 Inactive potassium chloride ER 10 mEq tablet,extended release RxNorm: 311103 TAKE 1 TABLET BY MOUTH EVERY DAY 04/19/2021 04/19/2021 Inactive Coumadin 4 mg tablet RxNorm: 284985 1 Tablet(s) Oral Thursday04/11/2021 07/10/2021 Inactive Coumadin 2 mg tablet RxNorm: 506973 1 Tablet(s) Oral on Thursday and Thursday04/11/2021 07/10/2021 Inactive carvedilol 25 mg tablet RxNorm: 346677 1 Tablet(s) Oral two antolin es a day 04/03/2021 09/29/2021 Active Coumadin 2 mg tablet RxNorm: 114280 TAKE 1 TABLET BY [facility] ON THURSDAY AND Thursday03/26/2021 04/10/2021 Inactive Coumadin 4 mg tablet RxNorm: 342974 1 Tablet(s) Oral QD 02/26/2021 Inactive levothyroxine 50 mcg tablet RxNorm: 285832 1 Tablet(s) Oral QD Recheck labs in 2 months 02/26/2021 02/26/2021 Inactive Recheck labs in 2 months levothyroxine 50 mcg tablet RxNorm: 704358 1 Tablet(s) Oral QD Recheck labs in 2 months 02/26/2021 02/25/2021 Inactive Recheck labs in 2 months losartan 100 mg tablet RxNorm: 696038 TAKE 1 TABLET BY MOUTH 02/22/2021 08/20/2021 Inactive spironolactone 25 mg tablet RxNorm: 151767 1 Tablet(s) Oral QD 01/2303/04/2021 Inactive isosorbide mononitrate 10 mg tablet RxNorm: 906470 1 Ta blet(s) Oral two times a day 02/19/2021 02/25/2021 Inactive famotidine 20 mg tablet RxNorm: 161907 1 Tablet(s) Oral QD 02/20/2003/04/2021 Inactive levothyroxine 25 mcg tablet RxNorm: 126963 1 Tablet(s) Oral QD 07/20212021 Inactive atorvastatin 40 mg tablet RxNorm: 762082 1 Tablet(s) Or al QPM replaces pravastatin 01/29/2021 07/27/2021 Inactive furosemide 40 mg tablet RxNorm: 096540 TAKE 1 TABLET BY MOUTH E VERY MORNING 01/28/2021 01/28/2021 Inactive prednisone 10 mg tablet RxNorm: 852292 1 Tablet(s) Oral two antolin es a day 01/16/2021 01/19/2021 Inactive atorvastatin 40 mg tablet RxNorm: 363955 1 Tablet(s) Or al QPM replaces pravastatin 12/31/2020 01/28/2021 Inactive carvedilol 25 mg tablet RxNorm: 899766 TAKE 1 TABLET BY MOUTH T WICE DAILY 12/31/2020 04/02/2021 Inactive potassium chloride ER 10 mEq tablet,extended release RxNorm: 234575 TAKE 1 TABLET BY MOUTH EVERY DAY 12/31/2020 12/31/2020 Inactive losartan 100 mg tablet RxNorm: 060969 1 Tablet(s) Oral QD 12/03/2020 02/21/2021 Inactive Coumadin 4 mg tablet RxNorm: 582081 TAKE 1 TABLET BY [facility] THURSDAY THROUGH Thursday11/30/2020 02/25/2021 Inactive levothyroxine 25 mcg tablet RxNorm: 484694 1 Tablet(s) Oral QD 10/2401/28/2021 Inactive famotidine 20 mg tablet RxNorm: 368409 1 Tablet(s) Oral QD 11/19/20 20 01/15/2021 Inactive famotidine 20 mg tablet RxNorm: 851708 1 Tablet(s) Oral QD 11/19/20 20 11/18/2020 Inactive levothyroxine 50 mcg tablet RxNorm: 297705 TAKE 1 TABLET BY ENE EVERY DAY 11/06/2020 01/29/2021 Inactive furosemide 40 mg tablet RxNorm: 476219 TAKE 1 TABLET BY MOUTH E VERY MORNING 11/05/2020 01/27/2021 Inactive atorvastatin 40 mg tablet RxNorm: 498686 1 Tablet(s) Or al QPM replaces pravastatin 10/22/2020 12/30/2020 Inactive atorvastatin 40 mg tablet RxNorm: 197444 1 Tablet(s) Or al QPM replaces pravastatin 10/22/2020 10/21/2020 Inactive spironolactone 25 mg tablet RxNorm: 041829 1 Tablet(s) Oral QAM 01/15/2021 Inactive carvedilol 25 mg tablet RxNorm: 690513 TAKE 1 TABLET BY MOUTH T WICE DAILY 10/04/2020 12/30/2020 Inactive pravastatin 40 mg tablet RxNorm: 772610 TAKE 1 TABLET BY MOUTH EVERY DAY 10/04/2020 12/31/2020 Inactive potassium chloride ER 10 mEq tablet,extended release RxNorm: 628194 TAKE 1 TABLET BY MOUTH EVERY DAY 10/04/2020 12/30/2020 Inactive isosorbide mononitrate ER 30 mg tablet,extended release 24 h r RxNorm: 184908 TABLET(S) 1 TABLET(S) PO NEEDED Oral 10/04/2020 02/18/2021 Inactive Patient requests 90 days supply furosemide 40 mg tablet RxNorm: 045533 TAKE 1 TABLET BY MOUTH E VERY MORNING 10/01/2020 11/04/2020 Inactive losartan 100 mg tablet RxNorm: 168193 TAKE 1 TABLET BY MOUTH EV 09/19/2020 12/02/2020 Inactive amlodipine 5 mg tablet RxNorm: 563931 1 Tablet(s) Oral QD 08/27/2020 11/11/2020 Inactive spironolactone 25 mg tablet RxNorm: 991628 1 Tablet(s) Oral QAM 03/202010/21/2020 Inactive levothyroxine 50 mcg tablet RxNorm: 642620 TAKE 1 TABLET BY ENE TH EVERY DAY 08/07/2020 11/04/2020 Inactive levothyroxine 50 mcg tablet RxNorm: 445897 TAKE 1 TABLET BY ENE TH EVERY DAY 08/06/2020 08/06/2020 Inactive amoxicillin 500 mg capsule RxNorm: 034046 4 Capsule(s) Oral QD 1hr prior to dental cleaning 07/31/2020 07/30/2020 Inactive amoxicillin 500 mg capsule RxNorm: 238392 4 Capsule(s) Oral QD 1hr prior to dental cleaning 07/31/2020 07/31/2020 Inactive potassium chloride ER 10 mEq tablet,extended release RxNorm: 509473 TAKE 1 TABLET BY MOUTH EVERY DAY 07/23/2020 10/03/2020 Inactive pravastatin 40 mg tablet RxNorm: 274047 TAKE 1 TABLET BY MOUTH EVERY DAY 07/23/2020 10/03/2020 Inactive carvedilol 25 mg tablet RxNorm: 104353 TAKE 1 TABLET BY MOUTH T WICE DAILY 07/23/2020 10/03/2020 Inactive losartan 100 mg tablet RxNorm: 373112 TAKE 1 TABLET BY MOUTH EV RANDI DAY 06/27/2020 09/18/2020 Inactive furosemide 40 mg tablet RxNorm: 222545 TAKE 1 TABLET BY MOUTH E VERY MORNING 06/08/2020 09/30/2020 Inactive Coumadin 4 mg tablet RxNorm: 708699 1 Tablet(s) Oral Thursday thr thursday06/07/2020 11/29/2020 Inactive Coumadin 2 mg tablet RxNorm: 951822 1 Tablet(s) Oral on and Thursday03/20/2020 03/19/2020 Inactive Coumadin 4 mg tablet RxNorm: 766007 1 Tablet(s) Oral Thursday thr thursday03/20/2020 06/06/2020 Inactive losartan 100 mg tablet RxNorm: 304327 TAKE 1 TABLET BY MOUTH EV RANDI DAY 03/20/2020 06/26/2020 Inactive Coumadin 2 mg tablet RxNorm: 293435 1 Tablet(s) Oral on and Thursday03/20/2020 02/25/2021 Inactive furosemide 40 mg tablet RxNorm: 782756 1 Tablet(s) Oral [facility] 020 06/07/2020 Inactive pravastatin 40 mg tablet RxNorm: 831304 TAKE 1 TABLET BY MOUTH EVERY DAY 02/07/2020 07/22/2020 Inactive losartan 100 mg tablet RxNorm: 712991 TAKE 1 TABLET BY MOUTH EV RANDI DAY 02/01/2020 03/19/2020 Inactive losartan 100 mg tablet RxNorm: 447794 TAKE 1 TABLET BY MOUTH EV RANDI DAY 01/17/2020 01/31/2020 Inactive Coumadin 2 mg tablet RxNorm: 448577 1 Tablet(s) Oral on and Thursday12/15/2019 12/15/2019 Inactive furosemide 40 mg tablet RxNorm: 602687 TAKE 1 TABLET BY MOUTH E VERY MORNING 12/14/2019 03/12/2020 Inactive pravastatin 40 mg tablet RxNorm: 552167 TAKE 1 TABLET BY MOUTH EVERY DAY 11/27/2019 02/06/2020 Inactive losartan 100 mg tablet RxNorm: 608785 1 Tablet(s) Oral QD 11/10/2019 01/16/2020 Inactive isosorbide mononitrate ER 30 mg tablet,extended release 24 h r RxNorm: 693015 TABLET(S) 1 TABLET(S) PO NEEDED 11/10/2019 05/08/2020 Inactive Patient requests 90 days supply carvedilol 25 mg tablet RxNorm: 102518 1 Tablet(s) Oral two antolin es a day 11/10/2019 05/08/2020 Inactive Coumadin 2 mg tablet RxNorm: 080810 1 Tablet(s) Oral on and Thursday11/10/2019 12/14/2019 Inactive losartan 100 mg tablet RxNorm: 703084 1 Tablet(s) Oral QD 11/10/2019 11/09/2019 Inactive levothyroxine 50 mcg tablet RxNorm: 918693 1 Tablet(s) Oral QD 10/2310/21/2020 Inactive Coumadin 4 mg tablet RxNorm: 182281 1 Tablet(s) Oral Thursday thr thursday11/10/2019 11/10/2019 Inactive losartan 50 mg tablet RxNorm: 528023 2 Tablet(s) Oral QD 11/01/2019 1 01/10/2019 Inactive potassium chloride ER 10 mEq capsule,extended release RxNorm : 238360 1 Capsule(s) Oral QD 10/26/2019 12/14/2019 Inactive potassium chloride ER 10 mEq tablet,extended release RxNorm: 957877 1 TABLET(S) ORAL QD 10/22/2019 04/18/2020 Inactive Replaces PA on 1 0MEQ Capsules Aspir-81 mg tablet,delayed release RxNorm: 634062 1 Tablet(s) O ral QD 10/11/2019 No Stop Date Active cyclobenzaprine 5 mg tablet RxNorm: 311609 1 Tablet(s) Oral two times a day as needed for muscle spasm 10/11/2019 03/19/2020 Inactive Coumadin 4 mg tablet RxNorm: 474573 1 Tablet(s) Oral Mo through Thursday and 1/2 tablet (2mg) on Sat/Sun 10/11/2019 11/09/2019 Inactive potassium chloride ER 10 mEq tablet,extended release RxNorm: 204180 1 Tablet(s) Oral QD 09/22/2019 09/21/2019 Inactive Replaces PA on 1 0MEQ Capsules potassium chloride ER 10 mEq tablet,extended release RxNorm: 702097 1 Tablet(s) Oral QD 09/22/2019 10/10/2019 Inactive Replaces PA on 1 0MEQ Capsules potassium chloride ER 10 mEq capsule,extended release RxNorm : 572600 1 Capsule(s) Oral QD 09/21/2019 09/21/2019 Inactive carvedilol 25 mg tablet RxNorm: 663755 1 Tablet(s) Oral two antolin es a day 08/23/2019 11/09/2019 Inactive isosorbide mononitrate ER 30 mg tablet,extended release 24 h r RxNorm: 322564 TABLET(S) 1 TABLET(S) PO NEEDED 08/22/2019 10/04/2020 Inactive Patient requests 90 days supply isosorbide mononitrate ER 30 mg tablet,extended release 24 h r RxNorm: 344642 Tablet(s) 1 TABLET(S) PO NEEDED 08/16/2019 08/21/2019 Inactive Patient requests 90 days supply levothyroxine 50 mcg tablet RxNorm: 191669 1 Tablet(s) PO QD 201811/09/2019 Inactive isosorbide mononitrate ER 30 mg tablet,extended release 24 h r RxNorm: 114145 Tablet(s) 1 TABLET(S) PO NEEDED 06/27/2019 08/15/2019 Inactive Patient requests 90 days supply isosorbide mononitrate ER 30 mg tablet,extended release 24 h r RxNorm: 905313 1 Tablet(s) PO QD as needed 06/27/2019 06/27/2019 Inactive Neris ent requests 90 days supply carvedilol 25 mg tablet RxNorm: 033870 1 TABLET(S) PO BID 06/27/2019 08/22/2019 Inactive furosemide 40 mg tablet RxNorm: 533230 1 Tablet(s) PO QAM 06/21/2019 12/13/2019 Inactive carvedilol 25 mg tablet RxNorm: 381170 1 Tablet(s) PO BID 05/13/2019 06/26/2019 Inactive Xanax 0.25 mg tablet RxNorm: 771901 1/2 Tablet(s) PO Q6H as needed 05/13/2019 09/07/2019 Inactive levothyroxine 50 mcg tablet RxNorm: 438818 1 Tablet(s) PO QD 201808/07/2019 Inactive losartan 50 mg tablet RxNorm: 757055 1 Tablet(s) PO QD 04/26/2019 Inactive losartan 50 mg tablet RxNorm: 713946 1 Tablet(s) PO QD 04/20/201901/2019 Inactive pravastatin 40 mg tablet RxNorm: 248950 1 Tablet(s) PO QD 04/07/2019 06/05/2019 Inactive isosorbide mononitrate ER 30 mg tablet,extended release 24 h r RxNorm: 472316 1 Tablet(s) PO as needed 04/07/2019 04/06/2019 Inactive isosorbide mononitrate ER 30 mg tablet,extended release 24 h r RxNorm: 388155 1 TABLET(S) PO NEEDED 04/07/2019 06/26/2019 Inactive Patient requests 90 days supply losartan 50 mg tablet RxNorm: 077712 1 Tablet(s) PO QD 03/22/2019 Inactive Prolia subcutaneous RxNorm: 298177 subcutaneous 02/19/2021 A ctive carvedilol 25 mg tablet RxNorm: 269896 1 Tablet(s) PO BID 05/13/2019 05/12/2019 Inactive losartan 50 mg tablet RxNorm: 604833 1 Tablet(s) PO QD 03/22/2019 Inactive Ventolin HFA 90 mcg/actuation aerosol inhaler RxNorm: 893332 1-2 Puff(s) INH as needed 09/08/2019 09/07/2019 Inactive furosemide 40 mg tablet RxNorm: 130821 1 Tablet(s) PO QAM 06/21/2019 06/20/2019 Inactive pravastatin 40 mg tablet RxNorm: 493331 1 Tablet(s) PO QD 04/07/2019 04/06/2019 Inactive Coumadin 2 mg tablet RxNorm: 022642 1 Tablet(s) PO Mon, Fri, Sat and Sun then 2 tablets (4mg) on , Thu and 10/11/2019 10/10/2019 Inactive isosorbide mononitrate ER 30 mg tablet,extended release 24 h r RxNorm: 875847 Tablet(s) PO as needed 04/07/2019 04/06/2019 Inactive Women's Multivitamin 18 mg iron-400 mcg-500 mg tablet RxNorm : 1 Tablet(s) PO QD 09/08/2019 09/07/2019 Inactive Vitamin D3 1000 units Capsule RxNorm: 3 Capsule(s) PO QD 9 09/07/2019 Inactive vitamin B complex capsule RxNorm: 1 Capsule(s) PO QD 09/08/2019 Inactive potassium chloride ER 10 mEq capsule,extended release RxNorm : 881883 1 Capsule(s) PO QD 09/21/2019 09/20/2019 Inactive levothyroxine 50 mcg tablet RxNorm: 825118 1 Tablet(s) PO QD 201804/25/2019 Inactive Medication Administered No Medication Administered data Immunizations Vaccine Codes Date Status Influenza CVX: 135 08/23/2021 Complete Influenza CVX: 135 07/06/2020 Pneumovax CVX: 33 02/03/2020 Influenza CVX: 135 07/02/2019 Results Observation Observation Code Item Item Code Result Date S ervice Location PT 2674690 PT 28.3 Seconds 07/19/2021 Unknow n PT [id number] INR 2.6 07/19/2021 Unknown COMPREHENSIVE METABOLIC 43216 AST 20 U/L 2020 Unknown COMPREHENSIVE METABOLIC 92925 ALT 16 U/L 2020 Unknown COMPREHENSIVE METABOLIC 38137 BUN 35 mg/dL 2020 Unknown COMPREHENSIVE METABOLIC 01936 ALBUMIN 4.1 g/dL 2020 Unknown COMPREHENSIVE METABOLIC 09111 CHLORIDE 105 mmol/L 06/20 Unknown COMPREHENSIVE METABOLIC 98979 Bili Total 1.1 mg/dL 06/20 Unknown COMPREHENSIVE METABOLIC 83115 ALK PHOS 103 U/L 2020 Unknown COMPREHENSIVE METABOLIC 25586 SODIUM 139 mmol/L 06/20 Unknown COMPREHENSIVE METABOLIC 88043 CREATININE 0.99 mg/dL 05/24 Unknown COMPREHENSIVE METABOLIC 16385 CALCIUM 8.8 mg/dL 2020 Unknown COMPREHENSIVE METABOLIC 19998 POTASSIUM 4.7 mmol/L 06/20 Unknown COMPREHENSIVE METABOLIC 29073 Total Protein 6.2 g/dL Unknown COMPREHENSIVE METABOLIC 44383 Glucose 83 mg/dL 2020 Unknown COMPREHENSIVE METABOLIC 98997 Bicarbonate 27 mmol/L 05/24 Unknown COMPREHENSIVE METABOLIC 54799 AGAP 7 mmol/L 2020 Unknown COMPLETE BLOOD COUNT [id number] WBC 4.5 10e9/L 06/20/20 21 Unknown COMPLETE BLOOD COUNT 1258888 RBC 3.99 10e12/L 2020 Unknown COMPLETE BLOOD COUNT [id number] HEMOGLOBIN 11.8 g/dL 06/20/20 21 Unknown COMPLETE BLOOD COUNT [id number] HEMATOCRIT 36.6 % 06/20/20 21 Unknown COMPLETE BLOOD COUNT 0345515 MCV 91.7 fL 1 Unknown COMPLETE BLOOD COUNT [id number] MCH 29.6 pg 1 Unknown COMPLETE BLOOD COUNT 9308993 MCHC 32.2 g/dL 1 Unknown COMPLETE BLOOD COUNT 6014964 PLATELET COUNT 180 10e9/L Unknown COMPLETE BLOOD COUNT 8829007 Mean Plt Volume 11.1 fL Unknown COMPLETE BLOOD COUNT 0257876 Neut Auto 64.7 % 1 Unknown COMPLETE BLOOD COUNT 4770867 Lymph Auto 19.6 % 06/20/20 21 Unknown COMPLETE BLOOD COUNT 0343515 Mckinley Auto 13.5 % 1 Unknown COMPLETE BLOOD COUNT 5681332 RDW 15.1 % 1 Unknown COMPLETE BLOOD COUNT 4201458 Eos Auto 1.8 % 1 Unknown COMPLETE BLOOD COUNT 9188145 Baso Auto 0.4 % 1 Unknown COMPLETE BLOOD COUNT [id number] Neutrophil Abs 2.91 10e9/L Unknown COMPLETE BLOOD COUNT [id number] Lymphocyte Abs 0.88 10e9/L Unknown COMPLETE BLOOD COUNT [id number] Monocyte Abs 0.61 10e9/L 05/24 Unknown COMPLETE BLOOD COUNT 5670058 Eosinophil Abs 0.08 10e9/L Unknown COMPLETE BLOOD COUNT [id number] Basophil Abs 0.02 10e9/L 05/24 Unknown COMPLETE BLOOD COUNT 6605530 RDW-SD 49.5 fL Unknown GFR CALC 6446885 GFR Non Afr Amr 53 mL/min 06/20/2021 Unk nown GFR CALC 3312767 GFR Afr Amr >60 mL/min 06/20/2021 Unknow n PT [id number] PT 27.4 Seconds 06/20/2021 Unknow n PT [id number] INR 2.5 06/20/2021 Unknown PT [id number] PT 25.8 Seconds 05/21/2021 Unknow n PT [id number] INR 2.3 05/21/2021 Unknown FREE T4 54334 T4 Free 1.19 ng/dL 04/11/2021 Unknown PT [id number] PT 33.6 Seconds 04/11/2021 Unknow n PT [id number] INR 3.3 04/11/2021 Unknown THYROID STIMULATING HORMONE 02965 TSH 3.912 uIU/mL 04/11/2021 Unknown PT [id number] PT 33.1 Seconds 03/15/2021 Unknow n PT [id number] INR 3.2 03/15/2021 Unknown PT [id number] PT 24.6 Seconds 05/23/2020 Unknow n PT [id number] INR 2.2 05/23/2020 Unknown PT [id number] PT 31.4 Seconds 10/26/2019 Unknow n PT [id number] INR 2.9 10/26/2019 Unknown PT [id number] PT 17.6 Seconds 10/11/2019 Unknow n PT [id number] INR 1.4 10/11/2019 Unknown PT [id number] PT 23.7 Seconds 09/08/2019 Unknow n PT [id number] INR 2.0 09/08/2019 Unknown PT [id number] PT 23.2 Seconds 07/29/2019 Unknow n PT [id number] INR 2.0 07/29/2019 Unknown PT [id number] PT 14.3 Seconds 07/18/2019 Unknow n PT [id number] INR 1.1 07/18/2019 [place] [address] Glucose 75 mg/dL 07/06 [place] [address] CREATININE 0.61 mg/dL [place] [address] BUN 15 mg/dL 07/06 [place] [address] SODIUM 142 mmol/L 06/23 [place] [address] POTASSIUM 4.0 mmol/L 06/23 [place] [address] CHLORIDE 106 mmol/L 06/23 [place] [address] Bicarbonate 28 mmol/[place] [address] AGAP 8 mmol/L 07/06 [place] [address] CALCIUM 9.3 mg/dL 07/06 Unknown PT [id number] PT 17.4 Seconds 07/06/2019 Unknow n PT [id number] INR 1.4 07/06/2019 Unknown GFR CALC [id number] GFR Afr Amr >60 mL/min 07/06/2019 Unknow n GFR CALC [id number] GFR Non Afr Amr >60 mL/min 07/06/2019 Un known COMPLETE BLOOD COUNT [id number] WBC 4.7 10e9/L 07/06/20 19 Unknown COMPLETE BLOOD COUNT [id number] RBC 4.19 10e12/L 2018 Unknown COMPLETE BLOOD COUNT [id number] HEMOGLOBIN 12.6 g/dL 07/06/20 19 Unknown COMPLETE BLOOD COUNT 6562129 HEMATOCRIT 39.4 % 07/06/20 19 Unknown COMPLETE BLOOD COUNT 7575697 MCV 94.0 fL 9 Unknown COMPLETE BLOOD COUNT 6786974 MCH 30.1 pg 9 Unknown COMPLETE BLOOD COUNT 7659789 MCHC 32.0 g/dL 9 Unknown COMPLETE BLOOD COUNT 1160904 PLATELET COUNT 160 10e9/L Unknown COMPLETE BLOOD COUNT 7717571 Mean Plt Volume 11.0 fL Unknown COMPLETE BLOOD COUNT 7498837 Neut Auto 56.6 % 9 Unknown COMPLETE BLOOD COUNT 9377465 Lymph Auto 27.0 % 07/06/20 19 Unknown COMPLETE BLOOD COUNT 9393247 Mckinley Auto 13.7 % 9 Unknown COMPLETE BLOOD COUNT [id number] Eos Auto 2.1 % 9 Unknown COMPLETE BLOOD COUNT 7622498 RDW 14.6 % 9 Unknown COMPLETE BLOOD COUNT 4521135 Baso Auto 0.6 % 9 Unknown COMPLETE BLOOD COUNT 7469817 Neutrophil Abs 2.66 10e9/L Unknown COMPLETE BLOOD COUNT 6552801 Lymphocyte Abs 1.27 10e9/L Unknown COMPLETE BLOOD COUNT 7449115 Monocyte Abs 0.64 10e9/L 06/23 Unknown COMPLETE BLOOD COUNT 5489472 Eosinophil Abs 0.10 10e9/L Unknown COMPLETE BLOOD COUNT 6372838 Basophil Abs 0.03 10e9/L 06/23 Unknown COMPLETE BLOOD COUNT 8500539 RDW-SD 48.7 fL 9 Unknown COMPLETE BLOOD COUNT 1298109 WBC 4.6 10e9/L 06/14/20 19 Unknown COMPLETE BLOOD COUNT 6668811 RBC 4.16 10e12/L 2018 Unknown COMPLETE BLOOD COUNT 7994555 HEMOGLOBIN 12.6 g/dL 06/14/20 19 Unknown COMPLETE BLOOD COUNT 4112750 HEMATOCRIT 39.1 % 06/14/20 19 Unknown COMPLETE BLOOD COUNT 1423888 MCV 94.0 fL 9 Unknown COMPLETE BLOOD COUNT 4645854 MCH 30.3 pg 9 Unknown COMPLETE BLOOD COUNT 9497197 MCHC 32.2 g/dL 9 Unknown COMPLETE BLOOD COUNT 9125037 PLATELET COUNT 167 10e9/L Unknown COMPLETE BLOOD COUNT 2241013 Mean Plt Volume 10.9 fL Unknown COMPLETE BLOOD COUNT 5483211 Neut Auto 59.6 % 9 Unknown COMPLETE BLOOD COUNT 6423440 Lymph Auto 24.1 % 06/14/20 19 Unknown COMPLETE BLOOD COUNT 9245442 Mckinley Auto 14.0 % 9 Unknown COMPLETE BLOOD COUNT 6117966 RDW 14.8 % 9 Unknown COMPLETE BLOOD COUNT 2627433 Eos Auto 1.9 % 9 Unknown COMPLETE BLOOD COUNT 7035332 Baso Auto 0.4 % 9 Unknown COMPLETE BLOOD COUNT 6279933 Neutrophil Abs 2.74 10e9/L Unknown COMPLETE BLOOD COUNT [id number] Lymphocyte Abs 1.11 10e9/L Unknown COMPLETE BLOOD COUNT 9814741 Monocyte Abs 0.64 10e9/L 05/24 Unknown COMPLETE BLOOD COUNT 0968173 Eosinophil Abs 0.09 10e9/L Unknown COMPLETE BLOOD COUNT 1425892 RDW-SD 49.3 fL 9 Unknown COMPLETE BLOOD COUNT [id number] Basophil Abs 0.02 10e9/L 05/24 Unknown PT [id number] PT 22.3 Seconds 06/14/2019 Unknow n PT [id number] INR 1.9 06/14/2019 Unknown COMPLETE BLOOD COUNT 1852973 WBC 4.0 10e9/L 05/13/20 19 Unknown COMPLETE BLOOD COUNT [id number] RBC 3.82 10e12/L 2018 Unknown COMPLETE BLOOD COUNT [id number] HEMOGLOBIN 11.5 g/dL 05/13/20 19 Unknown COMPLETE BLOOD COUNT 2659132 HEMATOCRIT 36.4 % 05/13/20 19 Unknown COMPLETE BLOOD COUNT 3972144 MCV 95.3 fL 9 Unknown COMPLETE BLOOD COUNT 6087411 MCH 30.1 pg 9 Unknown COMPLETE BLOOD COUNT 4183761 MCHC 31.6 g/dL 9 Unknown COMPLETE BLOOD COUNT 0203208 PLATELET COUNT 175 10e9/L Unknown COMPLETE BLOOD COUNT 2166802 Mean Plt Volume 10.5 fL Unknown COMPLETE BLOOD COUNT 5333004 Neut Auto 63.2 % 9 Unknown COMPLETE BLOOD COUNT [id number] Lymph Auto 22.0 % 05/13/20 19 Unknown COMPLETE BLOOD COUNT 0219792 Mckinley Auto 12.1 % 9 Unknown COMPLETE BLOOD COUNT 5716864 RDW 14.9 % 9 Unknown COMPLETE BLOOD COUNT 3340032 Eos Auto 2.2 % 9 Unknown COMPLETE BLOOD COUNT 0839855 Baso Auto 0.5 % 9 Unknown COMPLETE BLOOD COUNT 0210869 Neutrophil Abs 2.53 10e9/L Unknown COMPLETE BLOOD COUNT 7793569 Lymphocyte Abs 0.88 10e9/L Unknown COMPLETE BLOOD COUNT 0069505 Monocyte Abs 0.48 10e9/L 04/24 Unknown COMPLETE BLOOD COUNT 7579437 Eosinophil Abs 0.09 10e9/L Unknown COMPLETE BLOOD COUNT 0786958 RDW-SD 49.6 fL 9 Unknown COMPLETE BLOOD COUNT 5552087 Basophil Abs 0.02 10e9/L 04/24 Unknown COMPREHENSIVE METABOLIC 48872 AST 18 U/L 2018 Unknown COMPREHENSIVE METABOLIC 28303 ALT 14 U/L 2018 Unknown COMPREHENSIVE METABOLIC 00294 BUN 15 mg/dL 2018 Unknown COMPREHENSIVE METABOLIC 99705 ALBUMIN 4.0 g/dL 2018 Unknown COMPREHENSIVE METABOLIC 34782 CHLORIDE 108 mmol/L 05/13 Unknown COMPREHENSIVE METABOLIC 38055 Bili Total 0.9 mg/dL 05/13 Unknown COMPREHENSIVE METABOLIC 90635 ALK PHOS 84 U/L 2018 Unknown COMPREHENSIVE METABOLIC 49822 SODIUM 142 mmol/L 05/13 Unknown COMPREHENSIVE METABOLIC 65272 CREATININE 0.72 mg/dL 04/24 Unknown COMPREHENSIVE METABOLIC 34608 CALCIUM 8.9 mg/dL 2018 Unknown COMPREHENSIVE METABOLIC 56273 POTASSIUM 4.0 mmol/L 05/13 Unknown COMPREHENSIVE METABOLIC 64863 Total Protein 5.5 g/dL Unknown COMPREHENSIVE METABOLIC 11282 Glucose 95 mg/dL 2018 Unknown COMPREHENSIVE METABOLIC 72632 Bicarbonate 27 mmol/L 04/24 Unknown COMPREHENSIVE METABOLIC 18839 AGAP 7 mmol/L 2018 Unknown GFR CALC [id number] GFR Non Afr Amr >60 mL/min 05/13/2019 Un known GFR CALC 7874524 GFR Afr Amr >60 mL/min 05/13/2019 Unknow n THYROID STIMULATING HORMONE 73794 TSH 2.669 uIU/mL 05/13/2019 Unknown FREE T4 36695 T4 Free 1.19 ng/dL 05/13/2019 Unknown PT [id number] PT 24.2 Seconds 05/06/2019 Unknow n PT [id number] INR 2.1 05/06/2019 Unknown PT [id number] PT 24.1 Seconds 03/08/2019 Unknow n PT [id number] INR 2.9 03/08/2019 Unknown Procedures Procedure Codes Date FLU VACC PRSV FREE INC ANTIG 65 AND OLDER CPT-4: 67026 08/23/2021 ROUTINE VENIPUNCTURE CPT-4: 55963 08/23/2021 PROTHROMBIN TIME CPT-4: 35896 08/23/2021 FLU VACC PRSV FREE INC ANTIG 65 AND OLDER CPT-4: 30628 08/23/2021 ADMIN INFLUENZA VIRUS VAC CPT-4: G0008 08/23/2021 ROUTINE VENIPUNCTURE CPT-4: 90431 07/19/2021 PROTHROMBIN TIME CPT-4: 81514 07/19/2021 ROUTINE VENIPUNCTURE CPT-4: 98521 06/20/2021 COMPREHEN METABOLIC PANEL CPT-4: 04571 06/20/2021 COMPLETE CBC W/AUTO DIFF WBC CPT-4: 99192 06/20/2021 PROTHROMBIN TIME CPT-4: 96204 06/20/2021 PT CPT-4: 1779994 05/16/2021 ROUTINE VENIPUNCTURE CPT-4: 80778 05/16/2021 ROUTINE VENIPUNCTURE CPT-4: 08909 04/11/2021 PROTHROMBIN TIME CPT-4: 64219 04/11/2021 ASSAY OF FREE THYROXINE CPT-4: 07708 04/11/2021 ASSAY THYROID STIM HORMONE CPT-4: 12992 04/11/2021 ROUTINE VENIPUNCTURE CPT-4: 29957 03/15/2021 PT CPT-4: 2288732 03/15/2021 ROUTINE VENIPUNCTURE CPT-4: 35494 02/22/2021 COMPREHEN METABOLIC PANEL CPT-4: 11445 02/22/2021 ASSAY OF FREE THYROXINE CPT-4: 59923 02/22/2021 ASSAY THYROID STIM HORMONE CPT-4: 48238 02/22/2021 COMPLETE CBC W/AUTO DIFF WBC CPT-4: 76671 02/22/2021 PROTHROMBIN TIME CPT-4: 78711 02/22/2021 LIPID PANEL CPT-4: 45366 02/22/2021 PPPS, subseq visit CPT-4: G0439 09/26/2020 ROUTINE VENIPUNCTURE CPT-4: 21451 05/23/2020 PROTHROMBIN TIME CPT-4: 91749 05/23/2020 ROUTINE VENIPUNCTURE CPT-4: 13588 01/20/2020 PT CPT-4: 0583711 01/20/2020 ROUTINE VENIPUNCTURE CPT-4: 53467 12/15/2019 PROTHROMBIN TIME CPT-4: 76763 12/15/2019 ROUTINE VENIPUNCTURE CPT-4: 72122 11/10/2019 PROTHROMBIN TIME CPT-4: 72137 11/10/2019 PROTHROMBIN TIME CPT-4: 32275 10/26/2019 ROUTINE VENIPUNCTURE CPT-4: 70443 10/26/2019 ROUTINE VENIPUNCTURE CPT-4: 06054 10/11/2019 PT CPT-4: 6135152 10/11/2019 PPPS, initial visit CPT-4: G0438 09/20/2019 ROUTINE VENIPUNCTURE CPT-4: 01467 09/08/2019 PT CPT-4: 9680835 09/08/2019 THER/PROPH/DIAG INJ SC/IM CPT-4: 60794 09/08/2019 TRIAMCINOLONE ACET INJ NOS CPT-4: J3301 09/08/2019 ROUTINE VENIPUNCTURE CPT-4: 46836 07/29/2019 PT CPT-4: 2151091 07/29/2019 ROUTINE VENIPUNCTURE CPT-4: 29525 07/18/2019 PT CPT-4: 3400135 07/18/2019 METABOLIC PANEL TOTAL CA CPT-4: 58033 07/06/2019 COMPLETE CBC W/AUTO DIFF WBC CPT-4: 24205 07/06/2019 PROTHROMBIN TIME CPT-4: 12498 07/06/2019 ROUTINE VENIPUNCTURE CPT-4: 96125 06/14/2019 PROTHROMBIN TIME CPT-4: 00482 06/14/2019 COMPLETE CBC W/AUTO DIFF WBC CPT-4: 95986 06/14/2019 ROUTINE VENIPUNCTURE CPT-4: 51601 05/13/2019 COMPREHEN METABOLIC PANEL CPT-4: 06556 05/13/2019 COMPLETE CBC W/AUTO DIFF WBC CPT-4: 50472 05/13/2019 ASSAY THYROID STIM HORMONE CPT-4: 73328 05/13/2019 ASSAY OF FREE THYROXINE CPT-4: 87777 05/13/2019 PT CPT-4: 4127762 05/06/2019 ROUTINE VENIPUNCTURE CPT-4: 93645 05/06/2019 PT CPT-4: 0707239 04/07/2019 ROUTINE VENIPUNCTURE CPT-4: 90563 04/07/2019 ROUTINE VENIPUNCTURE CPT-4: 65805 03/08/2019 PROTHROMBIN TIME CPT-4: 09145 03/08/2019 Vital Signs Date Vital 08/20/2021 Blood Pressure 1: 127/69 Code: 8480-6 Heart Rate 1: 84 bpm Respiratory Rate: 17 bpm SpO2: 98% Temperature: 36.7 (C) / 98.1 (F) We ight: 208 lbs Code: 39616-4 05/16/2021 Blood Pressure 1: 136/64 Code: 8480-6 BMI: 37.0 Code: 28173-8 Heart Rate 1: 61 bpm Height: 5'3" Code: 8302-2 Respiratory Rate: 16 bpm SpO2: 98% Temperature: 36.2 (C) / 97.1 (F) Weight: 212 lbs Code: 64125-0 03/05/2021 Blood Pressure 1: 134/76 Code: 8480-6 Heart Rate 1: 66 bpm Respiratory Rate: 16 bpm SpO2: 100% Temperature: 37.1 (C) / 98.7 (F) We ight: 203 lbs Code: 88822-1 02/19/2021 Blood Pressure 1: 126/70 Code: 8480-6 BMI: 35.4 Code: 00114-2 Heart Rate 1: 72 bpm Height: 5'3" Code: 8302-2 Respiratory Rate: 16 bpm SpO2: 99% Temperature: 36.3 (C) / 97.3 (F) Weight: 203 lbs Code: 81775-5 01/16/2021 Blood Pressure 1: 112/74 Code: 8480-6 Heart Rate 1: 76 bpm Respiratory Rate: 20 bpm Temperature: 36.7 (C) / 98.0 (F) Weight: 205 lbs Code : 90975-3 11/19/2020 Blood Pressure 1: 120/78 Code: 8480-6 Heart Rate 1: 88 bpm Temperature: 36.6 (C) / 97.8 (F) 11/12/2020 Blood Pressure 1: 110/57 Code: 8480-6 Heart Rate 1: 68 bpm Respiratory Rate: 15 bpm SpO2: 100% Weight: 202 lbs Code: 23689 -7 10/12/2020 Blood Pressure 1: 114/70 Code: 8480-6 Heart Rate 1: 84 bpm Respiratory Rate: 18 bpm SpO2: 98% Temperature: 36.7 (C) / 98.0 (F) 09/26/2020 Blood Pressure 1: 120/72 Code: 8480-6 BMI: 35.2 Code: 61042-7 Heart Rate 1: 76 bpm Height: 5'3" Code: 8302-2 Respiratory Rate: 20 bpm SpO2: 97% Temperature: 36.7 (C) / 98.0 (F) Weight: 202 lbs Code: 13468-7 08/27/2020 Blood Pressure 1: 126/82 Code: 8480-6 Heart Rate 1: 80 bpm Respiratory Rate: 20 bpm Temperature: 36.2 (C) / 97.1 (F) Weight: 198 lbs Code : 50896-5 05/23/2020 Blood Pressure 1: 120/78 Code: 8480-6 Heart Rate 1: 68 bpm Respiratory Rate: 20 bpm SpO2: 97% Temperature: 36.4 (C) / 97.5 (F) We ight: 200 lbs Code: 59488-6 05/02/2020 Blood Pressure 1: 133/81 Code: 8480-6 Heart Rate 1: 74 bpm Weight: 202 lbs Code: 27808-2 12/15/2019 Blood Pressure 1: 126/82 Code: 8480-6 Heart Rate 1: 64 bpm Respiratory Rate: 20 bpm SpO2: 97% Temperature: 36.6 (C) / 97.8 (F) We ight: 201 lbs Code: 00378-2 11/03/2019 Blood Pressure 1: 142/82 Code: 8480-6 [...] / 98.1 (F) Weight: 204 lbs Code: 37974-8 09/20/2019 Blood Pressure 1: 122/68 Code: 8480-6 BMI: 35.0 Code: 15686-1 Heart Rate 1: 72 bpm Height: 5'3" Code: 8302-2 Respiratory Rate: 18 bpm SpO2: 95% Temperature: 36.8 (C) / 98.3 (F) Weight: 201 lbs Code: 86762-5 09/08/2019 Blood Pressure 1: 118/72 Code: 8480-6 Heart Rate 1: 82 bpm SpO2: 97% Temperature: 36.3 (C) / 97.4 (F) Weight: 208 lbs Code: 49656-5 06/14/2019 Blood Pressure 1: 128/84 Code: 8480-6 Heart Rate 1: 72 bpm Respiratory Rate: 20 bpm SpO2: 98% Temperature: 36.7 (C) / 98.1 (F) We ight: 209 lbs Code: 05635-9 05/13/2019 Blood Pressure 1: 144/90 Code: 8480-6 Heart Rate 1: 88 bpm Respiratory Rate: 24 bpm SpO2: 96% Temperature: 37.1 (C) / 98.8 (F) We ight: 210 lbs Code: 38325-6 05/02/2019 Blood Pressure 1: 128/80 Code: 8480-6 Heart Rate 1: 84 bpm Respiratory Rate: 20 bpm SpO2: 95% Temperature: 36.6 (C) / 97.9 (F) We ight: 209 lbs Code: 00719-7 03/22/2019 Blood Pressure 1: 122/70 Code: 8480-6 He art Rate 1: 85 bpm 03/08/2019 Blood Pressure 1: 114/78 Code: 8480-6 BMI: 36.1 Code: 20636-3 Heart Rate 1: 76 bpm Height: 5'3" Code: 8302-2 Respiratory Rate: 20 bpm SpO2: 97% Temperature: 37.1 (C) / 98.8 (F) Weight: 207 lbs Code: 27273-8 Functional Status No Functional Status data Reason [...] well woman exam (65+ years) 09/26/2020 Medicare [facility]--due for mammogram follow up 08/27/2020 follow up [...] pressure check 03/22/2019 ~generic 03/08/2019 New Patient---[facility] Encounters Encounter Performer Location Codes Date ([id number]) NURSE/OUTPATIENT VISIT EST Diagnosis: Chronic atrial fibrillation[ICD10: I48.20] Diagnosis: Long-term (current) use of anticoagulants, INR goal 2.0-3.0[ICD10: Z79.01] Diagnosis: FLU VACCINE[ICD10: Z23] Jeanie ORTEZQUELINE David [employer] Networks[employer]AYDEE [employer] CPT-4: 41152 08/23/2021 ([id number]) OFFICE/OUTPATIENT VISIT EST Diagnosis: Breast pain, left[ICD10: N64.4] Diagnosis: Left breast lump[ICD10: N63.20] Remedios JENNINGSLINE OfeAxel [employer]HAYDEE[employer] CPT-4: 57060 08/20/2021 ([id number]) NURSE/OUTPATIENT VISIT EST Diagnosis: Long-term (current) use of anticoagulants, INR goal 2.0-3.0[ICD10: Z79.01] Jeanie CONNELL David [employer]HAYDEE[employer] CPT-4: 06021 07/19/2021 ([id number]) NURSE/OUTPATIENT VISIT EST Diagnosis: Essential (primary) hypertension[ICD10: I10] Diagnosis: Chronic atrial fibrillation[ICD10: I48.20] Diagnosis: Long-term (current) use of anticoagulants, INR goal 2.0-3.0[ICD10: Z79.01] Diagnosis: Anemia, unspecified[ICD10: D64.9] Jeanie Parra Superson[employer]el [employer] CPT-4: 70604 06/20/2021 ([id number]) OFFICE/OUTPATIENT VISIT EST Diagnosis: Long-term (current) use of anticoagulants, INR goal 2.0-3.0[ICD10: Z79.01] Diagnosis: Essential (primary) hypertension[ICD10: I10] Diagnosis: Chronic congestive heart failure with left ventricular diastolic dysfunction[ICD10: I50.32] Diagnosis: Severe obesity (BMI 35.0-39.9) with comorbidity[ICD10: E66.01] Diagnosis: Chronic atrial fibrillation[ICD10: I48.20] Diagnosis: Obstructive sleep apnea syndrome[ICD10: G47.33] Remedios BLACK [facility] CPT-4: 58746 05/16/2021 ([id number]) NURSE/OUTPATIENT VISIT EST Diagnosis: Hypothyroidism, unspecified[ICD10: E03.9] Diagnosis: Long-term (current) use of anticoagulants, INR goal 2.0-3.0[ICD10: Z79.01] Jeanie BLACK [facility] CPT-4: 40110 04/11/2021 ([id number]) NURSE/OUTPATIENT VISIT EST Diagnosis: Long-term (current) use of anticoagulants, INR goal 2.0-3.0[ICD10: Z79.01] Jeanie BLACK [facility] CPT-4: 93273 03/15/2021 ([id number]) OFFICE/OUTPATIENT VISIT EST Diagnosis: Essential hypertension[ICD10: I10] Diagnosis: Cheilitis[ICD10: K13.0] Diagnosis: Pulmonary hypertension[ICD10: I27.20] Jeanie ORTEZELVA AGUILERA David BLACK [facility] CPT-4: 67530 03/05/2021 ([id number]) NURSE/OUTPATIENT VISIT EST Diagnosis: Essential (primary) hypertension[ICD10: I10] Diagnosis: Hypothyroidism, unspecified[ICD10: E03.9] Diagnosis: Long-term (current) use of anticoagulants, INR goal 2.0-3.0[ICD10: Z79.01] Diagnosis: Mixed hyperlipidemia[ICD10: E78.2] Jeanie Avendañoalberta ANN MCKEE David BLACK [facility] CPT-4: 62429 02/22/2021 ([id number]) OFFICE/OUTPATIENT VISIT EST Diagnosis: Cheilitis[ICD10: K13.0] Diagnosis: Encounter for medication review and counseling[ICD10: Z71.89] Diagnosis: Long-term (current) use of anticoagulants, INR goal 2.0-3.0[ICD10: Z79.01] Diagnosis: Hypothyroidism, unspecified[ICD10: E03.9] Diagnosis: Mixed hyperlipidemia[ICD10: E78.2] Diagnosis: Severe obesity (BMI 35.0-39.9) with comorbidity[ICD10: E66.01] Diagnosis: Chronic congestive heart failure with left ventricular diastolic dysfunction[ICD10: I50.32] Remedios BLACK DO [facility] CPT- 4: 93851 02/19/2021 ([id number]) OFFICE/OUTPATIENT VISIT EST Diagnosis: Cheilitis[ICD10: K13.0] Jannette PINZON DO [facility] CPT-4: 23376 01/16/2021 ([id number]) OFFICE/OUTPATIENT VISIT EST Diagnosis: Hypotension[ICD10: I95.9] Diagnosis: Dizziness[ICD10: R42] Jannette BLACK DO C CPT-4: 90033 11/12/2020 ([id number]) OFFICE/OUTPATIENT VISIT EST Diagnosis: Thoracic back pain[ICD10: M54.6] Diagnosis: Dizziness[ICD10: R42] Jannette BLACK DO [facility] CPT-4: 38518 10/12/2020 ([id number]) OFFICE/OUTPATIENT VISIT EST Diagnosis: Chronic atrial fibrillation[ICD10: I48.20] Diagnosis: Chronic airway obstruction, not elsewhere classified[ICD10: J44.9] Diagnosis: Essential hypertension[ICD10: I10] Jeaniemari MCKEE David BLACK DO [facility] CPT-4: 09286 08/27/2020 ([id number]) OFFICE/OUTPATIENT VISIT EST Diagnosis: Essential (primary) hypertension[ICD10: I10] Diagnosis: Chronic atrial fibrillation[ICD10: I48.20] Diagnosis: COPD (chronic obstructive pulmonary disease)[ICD10: J44.9] Diagnosis: Dyspnea[ICD10: R06.00] Diagnosis: Left hip pain[ICD10: M25.552] Jeaniecristhian Black JEANIE David BLACK DO [facility] CPT-4: 18801 05/23/2020 ([id number]) NURSE/OUTPATIENT VISIT EST Diagnosis: Essential (primary) hypertension[ICD10: I10] Jeanie CONNELL OfeAxel VARUN [facility]CCUR[facility] CPT-4: 50275 05/02/2020 ([id number]) OFFICE/OUTPATIENT VISIT EST Diagnosis: COPD (chronic obstructive pulmonary disease)[ICD10: J44.9] Diagnosis: Chronic atrial fibrillation[ICD10: I48.20] Diagnosis: Essential hypertension[ICD10: I10] [facility] CPT-4: 13596 03/20/2020 ([id number]) NURSE/OUTPATIENT VISIT EST Diagnosis: Long-term (current) use of anticoagulants, INR goal 2.0-3.0[ICD10: Z79.01] Jeanie Dykeshaydeealberta ThakurAxel VARUN [facility] CPT-4: 84303 01/20/2020 ([id number]) OFFICE/OUTPATIENT VISIT EST Diagnosis: COPD (chronic obstructive pulmonary disease)[ICD10: J44.9] Diagnosis: Long-term (current) use of anticoagulants, INR goal 2.0-3.0[ICD10: Z79.01] Diagnosis: History of recent fall[ICD10: Z91.81] Jeanie Donisanirudh WALTON ALE OfeAxel DONISHAYDEEALBERTA afterB[facility] CPT-4: 15325 12/15/2019 ([id number]) NURSE/OUTPATIENT VISIT EST Diagnosis: Long-term (current) use of anticoagulants, INR goal 2.0-3.0[ICD10: Z79.01] Jeanie Avendañoalberta JEANIE ThakurAxel VARUN [facility] CPT-4: 66034 11/10/2019 ([id number]) OFFICE/OUTPATIENT VISIT EST Diagnosis: Post concussion syndrome[ICD10: F07.81] Diagnosis: Head contusion[ICD10: S00.93XA] Diagnosis: Chronic airway obstruction, not elsewhere classified[ICD10: J44.9] Jeanie Dykesanirudh ORTEZJEANIE SAxel VARUN [facility] CPT-4: 07184 11/03/2019 ([id number]) OFFICE/OUTPATIENT VISIT EST Diagnosis: Fall as cause of accidental injury at home as place of occurrence[ICD10: W19.XXXA] Diagnosis: Headache[ICD10: R51] Diagnosis: Essential (primary) hypertension[ICD10: I10] Diagnosis: Long-term (current) use of anticoagulants, INR goal 2.0-3.0[ICD10: Z79.01] Diagnosis: Ecchymosis of left eye[ICD10: S05.12XA] Jannettevalentina BLACK DO [facility] CPT-4: 74589 10/31/2019 ([id number]) NURSE/OUTPATIENT VISIT EST Diagnosis: Long-term (current) use of anticoagulants, INR goal 2.0-3.0[ICD10: Z79.01] Jeanie JENNINGSLINE David BLACK DO [facility] CPT-4: 00763 10/26/2019 ([id number]) OFFICE/OUTPATIENT VISIT EST Diagnosis: Long-term (current) use of anticoagulants, INR goal 2.0-3.0[ICD10: Z79.01] Diagnosis: Pain in right arm[ICD10: M79.601] Diagnosis: Radiculopathy of arm[ICD10: M54.10] Jannette BLACK DO [facility] CPT-4: 92332 10/11/2019 ([id number]) OFFICE/OUTPATIENT VISIT EST Diagnosis: Long-term (current) use of anticoagulants, INR goal 2.0-3.0[ICD10: Z79.01] Diagnosis: Sinusitis[ICD10: J32.9] Diagnosis: Pain in right arm[ICD10: M79.601] Jannette BLACK DO [employer] CPT-4: 41573 09/08/2019 ([id number]) NURSE/OUTPATIENT VISIT EST Diagnosis: Chronic atrial fibrillation[ICD10: I48.2] Diagnosis: Encounter for therapeutic drug level monitoring[ICD10: Z51.81] Jeanie Donisanirudh JEANIE OfeAxel VARUN [facility] CPT-4: 46382 07/29/2019 ([id number]) NURSE/OUTPATIENT VISIT EST Diagnosis: Chronic atrial fibrillation[ICD10: I48.2] Diagnosis: Encounter for therapeutic drug level monitoring[ICD10: Z51.81] Jeanie Donisanirudh JEANIE OfeAxel VARUN [facility] CPT-4: 83991 07/18/2019 ([id number]) NURSE/OUTPATIENT VISIT EST Diagnosis: Encounter for therapeutic drug level monitoring[ICD10: Z51.81] Diagnosis: Chronic atrial fibrillation[ICD10: I48.2] Diagnosis: Essential (primary) hypertension[ICD10: I10] Jeanie ORTEZQUELINE OfeAxel VARUN 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] Jeanie BLACK [employer] CPT-4: 31521 06/14/2019 ([id number]) OFFICE/OUTPATIENT VISIT EST Diagnosis: Bitten by dog, sequela[ICD10: W54.0XXS] Diagnosis: Other fatigue[ICD10: R53.83] Diagnosis: Hypothyroidism, unspecified[ICD10: E03.9] Diagnosis: Muscle weakness (generalized)[ICD10: M62.81] Diagnosis: Generalized anxiety disorder[ICD10: F41.1] Jannette BLACK [employer] CPT-4: 41372 05/13/2019 ([id number]) NURSE/OUTPATIENT VISIT EST Diagnosis: Encounter for therapeutic drug level monitoring[ICD10: Z51.81] Jeanie BLACK [employer] CPT-4: 91293 05/06/2019 ([id number]) OFFICE/OUTPATIENT VISIT EST Diagnosis: Bitten by dog, sequela[ICD10: W54.0XXS] Diagnosis: Pain in right wrist[ICD10: M25.531] Diagnosis: Abrasion of right upper arm, sequela[ICD10: S40.811S] Diagnosis: Abrasion of left upper arm, sequela[ICD10: S40.812S] Jannette BLACK [employer] CPT-4: 57856 05/02/2019 ([id number]) NURSE/OUTPATIENT VISIT EST Diagnosis: Encounter for therapeutic drug level monitoring[ICD10: Z51.81] Jeanie BLACK [employer] CPT-4: 42800 04/07/2019 ([id number]) OFFICE/OUTPATIENT VISIT NEW Diagnosis: Encounter for therapeutic drug level monitoring[ICD10: Z51.81] Diagnosis: Chronic atrial fibrillation[ICD10: I48.2] Diagnosis: Essential (primary) hypertension[ICD10: I10] Diagnosis: Abnormal findings on diagnostic imaging of heart and coronary circulation[ICD10: R93.1] Diagnosis: Other forms of dyspnea[ICD10: R06.09] Diagnosis: Hypothyroidism, unspecified[ICD10: E03.9] Diagnosis: Mixed hyperlipidemia[ICD10: E78.2] Jeanie BLACK DO [facility] CPT-4: 88414 03/08/2019 Plan of Care Planned Activity Notes Codes Status Date Visit Plan: 08/20/2021 Visit Diagnosis Plan: Left breast lump Discussion: [place]as [place] get US of left breast and soft tissue under breast and f/u with results. F/U for sooner for concerns. ICD-9 : 611.72 ICD-10 : N63.20 08/20/2021 Appointment: Jeanie Black WPtel: [address] [place] [address] US CANCELED 08/20/2021 Appointment: Remedios Cavazos WPtel: [phone] ACUTE ILLNESS 08/20/2021 Patient Education: Patient Medication Summary Completed 08/20/2021 Appointment: Jeanie Black WPtel: [address] [place] [address] US see note in chart from 08/08/21 (km) CANCELED 08/08/2021 Appointment: Jeanie Black WPtel: [address] [place] [address] US LAB 07/19/2021 Appointment: Jeanie Black WPtel: [address] [place] [address] US LAB 06/20/2021 Visit Diagnosis Plan: Severe obesity (BMI 35.0-39.9) w ith comorbidity Discussion: Discussed diet and exercise ICD-9 : 278.01 ICD-10 : E66.01 05/16/2021 Visit Diagnosis Plan: Obstructive sleep apnea syndrome Discussion: Per pulm note- order for bipap [facility] [place] [facility] will call them to check, patient states [...] 05/16/2021 Appointment: [facility] [phone] [facility] [facility] MED[facility] REVIEW 05/16/2021 Patient Education: Patient Medication Summary Completed 05/16/2021 Patient Education: isosorbide mononitrate- [employer] Coupon [id number] https://www.[employer].Bloxy/samplemd/resources/getResource/61/a7h2n1h5-i402-297g-f7 Completed 05/16/2021 Patient Education: High Blood Pressure Co mpleted 05/16/2021 Appointment: Jeanie Black WPtel: [address] [place], [place] [address] US LAB 04/11/2021 Appointment: Jeanie Black WPtel: [address] [place] [id number] US CANCELED 03/27/2021 Appointment: Jeanie Black WPtel: [address] [place], [place] [address] US LAB 03/15/2021 Visit Diagnosis Plan: Pulmonary [...] : I10 03/05/2021 Appointment: [facility] [phone] [facility] [facility] FOLLOW [facility] 03/05/2021 Patient Education: spironolactone- [employer] Coupon 1 [id number] https://www.[employer]/Medivance/resources/getResource/61/0uk13sc8-8w0c-1p67-7c Completed 03/05/2021 Appointment: Jeanie Black [facility]Ptel[facility] [phone] [facility] [facility] 02/22/2021 Visit Diagnosis Plan: Cheilitis [...] E78.2 02/19/2021 Appointment: Remedios Cavazos WPtel: [phone] MEDICATION REVIEW 02/19/2021 Patient Education: Patient Medication [...] ICD-10 : K13.0 01/16/2021 Appointment: Jannette Mayen [address] [place] [address] ACUTE ILLNESS 01/16/2021 Appointment: Jeanie Black WPtel: [phone] [place] [phone] US BP CHECK 11/19/2020 Visit Diagnosis Plan: Hypotension [...] ICD-10 : I95.9 11/12/2020 Appointment: Jannette Mayen [address] [place] [address] ACUTE ILLNESS 11/12/2020 Visit Diagnosis Plan: Thoracic [...] ICD-10 : R42 10/12/2020 Appointment: Jannette Mayen [address] [place] [address] ACUTE ILLNESS 10/12/2020 Visit Diagnosis Plan: Chronic atrial fibrillation Disc ussion: Following routinely with cardiology ICD-9 : 427.31 ICD-10 : I48.20 09/26/2020 Visit Diagnosis Plan: Essential (primary) hypertension Discussion: Stable ICD-9 : 401.9 ICD-10 : I10 09/26/2020 Visit Diagnosis Plan: Encounter for [facility] adult medical examination without abnormal [...] : I50.32 09/26/2020 Appointment: Jeanie Black WPtel: [address] [place] [address] [place] Annual Well Visit 09/26/2020 Care Plan: Referral Order SNOMED-CT : [id number] Pending 09/26/2020 Visit Diagnosis Plan: Chronic airway [...] : I48.20 08/27/2020 Appointment: Jeanie Black WPtel: [address] [place] [address] US FOLLOW UP 08/27/2020 Visit Diagnosis Plan: Dyspnea Discussion: Sees Cardiol ogbrigitte next month and will inquire about ECHO [...] : I10 05/23/2020 Appointment: Jeanie Black WPtel: [address] [place] [address] [place] FOLLOW UP 05/23/2020 Appointment: Jeanie Black WPtel: [address] [place], [place] [phone] NURSE SERVICES 05/02/2020 Visit Diagnosis Plan: Chronic atrial fibrillation Disc ussion: Stable on Coumadin--refills ICD-9 : 427.31 ICD-10 : I48.20 03/20/2020 Visit Diagnosis Plan: Essential hypertension Discussio n: Decrease Losartan to 100mg daily Follow Up: 3 months ICD-9 : 401.9 ICD-10 : I10 03/20/2020 Visit Diagnosis Plan: COPD (chronic obstructive pulmon valeria disease) Discussion: Will resume pulmonary rehab once COVID-Willian dies down ICD-9 : 496 ICD-10 : J44.9 03/20/2020 Appointment: Jeanie Black WPtel: [address] [place], [place] [id number] TELEMEDICINE 03/20/2020 Patient Education: Coumadin- [employer] Coupon [id number] https://www.[employer]/Medivance/resources/getResource/61/3c043q47-10l1-7epz-7n Completed 03/20/2020 Patient Education: Coumadin- [employer] Coupon [id number] https://www.[employer]/resources/getResource/61/7ax19z9g-2z9z-3pu2-mi Completed 03/20/2020 Appointment: Jeanie Black WPtel: [address] [place], [place] [phone] LAB 01/20/2020 Visit Diagnosis Plan: History of recent fall Discussio n: Healing well Doing balance class at [facility] Follow Up: 3 months ICD-9 : V15.88 ICD-10 : Z91.81 12/15/2019 Visit Diagnosis Plan: COPD (chronic obstructive pulmon valeria disease) Discussion: Continue pulmonary rehab ICD-9 : 496 ICD-10 : J44.9 12/15/2019 Visit Diagnosis Plan: Long-term (current ) use of anticoagulants, INR goal 2.0-3.0 Discussion: PT/INR drawn ICD-9 : V58.61 ICD-10 : Z79.01 12/15/2019 Appointment: Jean[facility]Ptel[facility] [phone] [facility] [facility] FOLLOW [facility] 12/15/2019 Patient Education: Coumadin- [employer] Coupon [id number] https://www.[employer]ivance.Bloxy/Medivance/resources/getResource/61/i451fegx-lc63-1sxu-4i Completed 12/15/2019 Appointment: Jeanie Black WPtel: [address] [place], [place] [phone] US LAB 11/10/2019 Visit Diagnosis Plan: Post [...] : J44.9 11/03/2019 Appointment: Jeanie Black WPtel: [facility] FO[facility] 11/03/2019 Care Plan: CT [facility] 20843-5 Pending 11/01/2019 Visit Diagnosis Plan: Essential (primary) [...] ICD-10 : S05.12XA 10/31/2019 Appointment: Jannette Mayen [address] [place] [address] Hospital Follow Up 10/31/2019 Patient Education: High Blood Pressure Co mpleted 10/31/2019 Patient Education: losartan- [employer] Coupon [id number] https://www.[employer].Bloxy/samplemd/resources/getResource/61/2l600326-3e70-4637-2z Completed 10/31/2019 Appointment: Jeanie Black WPtel: [phone] [facility] FOLLOW UP 10/26/2019 Visit Diagnosis Plan: Long-term (current ) use of anticoagulants, INR goal 2.0-3.0 Discussion: will update pt/inr ICD-9 : V58.61 ICD-10 : Z79.01 10/11/2019 Visit Diagnosis Plan: Radiculopathy of arm Discussion: flexeril prescribed to take as needed. will start at low dose but instructed patient to call office if not effective and will increase mg dose. PT ordered at [facility] to assist with pain. if no improvement or worsening from PT, will need imaging. ICD-9 : 723.4 ICD-10 : M54.10 10/11/2019 Appointment: Jannette Mayen [address] [place] [address] ACUTE ILLNESS 10/11/2019 Patient Education: cyclobenzaprine- [employer] Coupon [id number] [email or web address] Completed 10/11/2019 Visit Diagnosis Plan: Bitten by dog, sequela Discusslexus n: Still seeing counselor Still doing therapy--left 4th finger still not agile enough to play violin and feels like pinched nerve in neck on right--dscussed stretches, massage, accupuncture---patient had hired divorce attorney ICD-9 : 906.1 ICD-10 : W54.0XXS 09/20/2019 Visit Diagnosis Plan: Encounter for gene ral adult medical examination without abnormal findings Discussion: [...] : E78.2 09/20/2019 Appointment: Jeanie Black WPtel: [address] [place] [address] Annual Well Visit 09/20/2019 Visit Diagnosis Plan: [...] V58.61 ICD-10 : Z79.01 09/08/2019 Appointment: Jannette Mayne [address] [place] [address] ACUTE ILLNESS 09/08/2019 Appointment: Jeanie Black WPtel: [address] [place] [address] US CANCELED 08/16/2019 Appointment: Jeanie Black WPtel: [address] [place], [place] [id number] US LAB 07/29/2019 App[facility]ment: [facility] [address] [facility] [facility] 07/18/2019 Appointment: [facility] [address] [facility] [facility] 07/06/2019 Visit Diagnosis Plan: Bitten [...] : D64.9 06/14/2019 Appointment: Jean[facility] Black [facility]el[facility] [address] [facility] [place] FOLLOW UP 06/14/2019 Visit Diagnosis Plan: [...] several days ago. will refer to [facility] as well to discuss concerns. ICD-9 [...] ICD-10 : R53.83 05/13/2019 Appointment: [facility]en [address] [facility] FOLLOW [facility] 05/13/2019 Patient Education: carvedilol- [employer] Coupon [id number] [email or web address]://www.[employer]/samplemd/resources/getResource/61/[email or web address] Completed 05/13/2019 Patient Education: Xanax- [employer] Coupon [id number] [email or web address]://www.[employer]/samplemd/resources/getResource/61/[email or web address].pdf Completed 05/13/2019 Appointment: Jean[facility] Black [facility]el[facility] [address] [facility] [facility] 05/06/2019 Visit Diagnosis Plan: Abrasion [...] will send results to dr. portillo at [facility]. ICD-9 : 719.43 ICD-10 : M25.531 05/02/2019 Appointment: Jannette Mayen [address] ACUTE ILLNESS 05/02/2019 Care Plan: X-RAY EXAM OF WRIST right LOINC : 3 [id number] Pending 05/02/2019 Appointment: Jeanie Black WPtel: [address] [place] [address] US LAB 04/07/2019 Appointment: Jeanie Black WPtel: [address] [place] [address] US BP CHECK 03/22/2019 Visit Diagnosis Plan: [...] I10 03/08/2019 Appointment: Jeanie Black WPtel: [phone] [id number] US NEW PATIENT 03/08/2019 Referral: Shona Viera WPtel: [facility] [address] [facility] Referral Appointment Requested Instructions No Instructions Medical Equipment No Medical Equipment data Health Concerns Section Health Concerns data not found Goals Section Goals data not found Interventions Section Interventions data not found Health Status Evaluations/Outcomes Section Health Status Evaluations/Outcomes data not found Advance Directives No Advance Directive data
--- OUTSIDE RECORDS SUMMARY | 2021-09-19 12:40 | XMS REPORT | CCD ---
Author Author Tricia Black D.O. Organization [facility] Address [address] [place] [address] Phone Care Team Providers Care Deployment Manager Name Role Phone PP Unavailable CCM Unavailable Summary Purpose Interface Exchange Insurance Providers Payer name Policy type / Coverage type Covered libertarian ID Effective Begin Date Effective End Date WPS MEDICARE PART B [place] Medicare Part B [id number] Unknown Unknown AARP Medicare Part B [id number] Unknown Unknown Family history Grandmother Diagnosis Age [...] Unknown Retired 03/08/[address]: 311451949 Has never smoked or chewed tobacco 03/08/[address]: 665700 Currently drinks alcohol 03/08 Has the patient [...] Instructions isosorbide mononitrate 10 mg tablet RxNorm: 126944 Take 1 Tablet(s) Oral two times a day 08/08/2021 No Stop Date Active losartan 100 mg tablet RxNorm: 395071 Take 1 Tablet(s) Oral QD 07/2411/02/2021 Active amoxicillin 500 mg capsule RxNorm: 037963 4 Capsule(s) Oral QD 1hr prior to dental cleaning 08/05/2021 08/05/2021 Inactive levothyroxine 50 mcg tablet RxNorm: 220386 TAKE 1 TABLE T BY MOUTH EVERY DAY. RECHECK LABS IN 2 MONTHS 08/04/2021 10/02/2021 Active potassium chloride ER 10 mEq tablet,extended release RxNorm: 453513 TAKE 1 TABLET BY MOUTH EVERY DAY 07/14/2021 10/11/2021 Active spironolactone 25 mg tablet RxNorm: 518273 1/2 Tablet(s) Oral QD No Stop Date Active isosorbide mononitrate 10 mg tablet RxNorm: 299509 Take 1 Tablet(s) Oral two times a day 05/16/2021 05/16/2021 Inactive isosorbide mononitrate ER 30 mg tablet,extended release 24 h r RxNorm: 319905 TABLET(S) 1 TABLET(S) PO NEEDED Tablet(s) Oral 05/16/2021 08/07/2021 Inactive Patient requests 90 days supply furosemide 40 mg tablet RxNorm: 414482 TAKE 1 TABLET BY MOUTH E VERY MORNING 05/07/2021 08/04/2021 Inactive isosorbide mononitrate 10 mg tablet RxNorm: 074880 Take 1 Tablet(s) Oral two times a day 04/26/2021 05/15/2021 Inactive isosorbide mononitrate 10 mg tablet RxNorm: 613704 Take 1 Tablet(s) Oral two times a day 04/25/2021 04/25/2021 Inactive potassium chloride ER 10 mEq tablet,extended release RxNorm: 665947 TAKE 1 TABLET BY MOUTH EVERY DAY 04/19/2021 04/19/2021 Inactive Coumadin 4 mg tablet RxNorm: 088361 1 Tablet(s) Oral Thursday04/11/2021 07/10/2021 Inactive Coumadin 2 mg tablet RxNorm: 221565 1 Tablet(s) Oral on Thursday and Thursday04/11/2021 07/10/2021 Inactive carvedilol 25 mg tablet RxNorm: 791961 1 Tablet(s) Oral two antolin es a day 04/03/2021 09/29/2021 Active Coumadin 2 mg tablet RxNorm: 002220 TAKE 1 TABLET BY [facility] ON THURSDAY AND Thursday03/26/2021 04/10/2021 Inactive Coumadin 4 mg tablet RxNorm: 072003 1 Tablet(s) Oral QD 02/26/2021 Inactive levothyroxine 50 mcg tablet RxNorm: 227420 1 Tablet(s) Oral QD Recheck labs in 2 months 02/26/2021 02/26/2021 Inactive Recheck labs in 2 months levothyroxine 50 mcg tablet RxNorm: 047243 1 Tablet(s) Oral QD Recheck labs in 2 months 02/26/2021 02/25/2021 Inactive Recheck labs in 2 months losartan 100 mg tablet RxNorm: 481372 TAKE 1 TABLET BY MOUTH 02/22/2021 08/20/2021 Inactive spironolactone 25 mg tablet RxNorm: 966769 1 Tablet(s) Oral QD 01/2303/04/2021 Inactive isosorbide mononitrate 10 mg tablet RxNorm: 923494 1 Ta blet(s) Oral two times a day 02/19/2021 02/25/2021 Inactive famotidine 20 mg tablet RxNorm: 507195 1 Tablet(s) Oral QD 02/20/2003/04/2021 Inactive levothyroxine 25 mcg tablet RxNorm: 323408 1 Tablet(s) Oral QD 07/20212021 Inactive atorvastatin 40 mg tablet RxNorm: 050828 1 Tablet(s) Or al QPM replaces pravastatin 01/29/2021 07/27/2021 Inactive furosemide 40 mg tablet RxNorm: 875667 TAKE 1 TABLET BY MOUTH E VERY MORNING 01/28/2021 01/28/2021 Inactive prednisone 10 mg tablet RxNorm: 334502 1 Tablet(s) Oral two antolin es a day 01/16/2021 01/19/2021 Inactive atorvastatin 40 mg tablet RxNorm: 749935 1 Tablet(s) Or al QPM replaces pravastatin 12/31/2020 01/28/2021 Inactive carvedilol 25 mg tablet RxNorm: 913869 TAKE 1 TABLET BY MOUTH T WICE DAILY 12/31/2020 04/02/2021 Inactive potassium chloride ER 10 mEq tablet,extended release RxNorm: 093340 TAKE 1 TABLET BY MOUTH EVERY DAY 12/31/2020 12/31/2020 Inactive losartan 100 mg tablet RxNorm: 051944 1 Tablet(s) Oral QD 12/03/2020 02/21/2021 Inactive Coumadin 4 mg tablet RxNorm: 934418 TAKE 1 TABLET BY [facility] THURSDAY THROUGH Thursday11/30/2020 02/25/2021 Inactive levothyroxine 25 mcg tablet RxNorm: 276865 1 Tablet(s) Oral QD 10/2401/28/2021 Inactive famotidine 20 mg tablet RxNorm: 057071 1 Tablet(s) Oral QD 11/19/20 20 01/15/2021 Inactive famotidine 20 mg tablet RxNorm: 404710 1 Tablet(s) Oral QD 11/19/20 20 11/18/2020 Inactive levothyroxine 50 mcg tablet RxNorm: 084075 TAKE 1 TABLET BY ENE EVERY DAY 11/06/2020 01/29/2021 Inactive furosemide 40 mg tablet RxNorm: 540390 TAKE 1 TABLET BY MOUTH E VERY MORNING 11/05/2020 01/27/2021 Inactive atorvastatin 40 mg tablet RxNorm: 061458 1 Tablet(s) Or al QPM replaces pravastatin 10/22/2020 12/30/2020 Inactive atorvastatin 40 mg tablet RxNorm: 212373 1 Tablet(s) Or al QPM replaces pravastatin 10/22/2020 10/21/2020 Inactive spironolactone 25 mg tablet RxNorm: 451889 1 Tablet(s) Oral QAM 01/15/2021 Inactive carvedilol 25 mg tablet RxNorm: 335699 TAKE 1 TABLET BY MOUTH T WICE DAILY 10/04/2020 12/30/2020 Inactive pravastatin 40 mg tablet RxNorm: 871146 TAKE 1 TABLET BY MOUTH EVERY DAY 10/04/2020 12/31/2020 Inactive potassium chloride ER 10 mEq tablet,extended release RxNorm: 479255 TAKE 1 TABLET BY MOUTH EVERY DAY 10/04/2020 12/30/2020 Inactive isosorbide mononitrate ER 30 mg tablet,extended release 24 h r RxNorm: 461178 TABLET(S) 1 TABLET(S) PO NEEDED Oral 10/04/2020 02/18/2021 Inactive Patient requests 90 days supply furosemide 40 mg tablet RxNorm: 507878 TAKE 1 TABLET BY MOUTH E VERY MORNING 10/01/2020 11/04/2020 Inactive losartan 100 mg tablet RxNorm: 499721 TAKE 1 TABLET BY MOUTH EV 09/19/2020 12/02/2020 Inactive amlodipine 5 mg tablet RxNorm: 544537 1 Tablet(s) Oral QD 08/27/2020 11/11/2020 Inactive spironolactone 25 mg tablet RxNorm: 045358 1 Tablet(s) Oral QAM 03/202010/21/2020 Inactive levothyroxine 50 mcg tablet RxNorm: 409508 TAKE 1 TABLET BY ENE TH EVERY DAY 08/07/2020 11/04/2020 Inactive levothyroxine 50 mcg tablet RxNorm: 288130 TAKE 1 TABLET BY ENE TH EVERY DAY 08/06/2020 08/06/2020 Inactive amoxicillin 500 mg capsule RxNorm: 296139 4 Capsule(s) Oral QD 1hr prior to dental cleaning 07/31/2020 07/30/2020 Inactive amoxicillin 500 mg capsule RxNorm: 194865 4 Capsule(s) Oral QD 1hr prior to dental cleaning 07/31/2020 07/31/2020 Inactive potassium chloride ER 10 mEq tablet,extended release RxNorm: 803718 TAKE 1 TABLET BY MOUTH EVERY DAY 07/23/2020 10/03/2020 Inactive pravastatin 40 mg tablet RxNorm: 161161 TAKE 1 TABLET BY MOUTH EVERY DAY 07/23/2020 10/03/2020 Inactive carvedilol 25 mg tablet RxNorm: 792030 TAKE 1 TABLET BY MOUTH T WICE DAILY 07/23/2020 10/03/2020 Inactive losartan 100 mg tablet RxNorm: 938222 TAKE 1 TABLET BY MOUTH EV RANDI DAY 06/27/2020 09/18/2020 Inactive furosemide 40 mg tablet RxNorm: 008254 TAKE 1 TABLET BY MOUTH E VERY MORNING 06/08/2020 09/30/2020 Inactive Coumadin 4 mg tablet RxNorm: 234093 1 Tablet(s) Oral Thursday thr thursday06/07/2020 11/29/2020 Inactive Coumadin 2 mg tablet RxNorm: 539094 1 Tablet(s) Oral on and Thursday03/20/2020 03/19/2020 Inactive Coumadin 4 mg tablet RxNorm: 976174 1 Tablet(s) Oral Thursday thr thursday03/20/2020 06/06/2020 Inactive losartan 100 mg tablet RxNorm: 565828 TAKE 1 TABLET BY MOUTH EV RANDI DAY 03/20/2020 06/26/2020 Inactive Coumadin 2 mg tablet RxNorm: 390648 1 Tablet(s) Oral on and Thursday03/20/2020 02/25/2021 Inactive furosemide 40 mg tablet RxNorm: 814882 1 Tablet(s) Oral [facility] 020 06/07/2020 Inactive pravastatin 40 mg tablet RxNorm: 691778 TAKE 1 TABLET BY MOUTH EVERY DAY 02/07/2020 07/22/2020 Inactive losartan 100 mg tablet RxNorm: 443432 TAKE 1 TABLET BY MOUTH EV RANDI DAY 02/01/2020 03/19/2020 Inactive losartan 100 mg tablet RxNorm: 653767 TAKE 1 TABLET BY MOUTH EV RANDI DAY 01/17/2020 01/31/2020 Inactive Coumadin 2 mg tablet RxNorm: 247632 1 Tablet(s) Oral on and Thursday12/15/2019 12/15/2019 Inactive furosemide 40 mg tablet RxNorm: 528751 TAKE 1 TABLET BY MOUTH E VERY MORNING 12/14/2019 03/12/2020 Inactive pravastatin 40 mg tablet RxNorm: 652015 TAKE 1 TABLET BY MOUTH EVERY DAY 11/27/2019 02/06/2020 Inactive losartan 100 mg tablet RxNorm: 999589 1 Tablet(s) Oral QD 11/10/2019 01/16/2020 Inactive isosorbide mononitrate ER 30 mg tablet,extended release 24 h r RxNorm: 287373 TABLET(S) 1 TABLET(S) PO NEEDED 11/10/2019 05/08/2020 Inactive Patient requests 90 days supply carvedilol 25 mg tablet RxNorm: 661249 1 Tablet(s) Oral two antolin es a day 11/10/2019 05/08/2020 Inactive Coumadin 2 mg tablet RxNorm: 100341 1 Tablet(s) Oral on and Thursday11/10/2019 12/14/2019 Inactive losartan 100 mg tablet RxNorm: 206615 1 Tablet(s) Oral QD 11/10/2019 11/09/2019 Inactive levothyroxine 50 mcg tablet RxNorm: 234401 1 Tablet(s) Oral QD 10/2310/21/2020 Inactive Coumadin 4 mg tablet RxNorm: 106015 1 Tablet(s) Oral Thursday thr thursday11/10/2019 11/10/2019 Inactive losartan 50 mg tablet RxNorm: 158786 2 Tablet(s) Oral QD 11/01/2019 1 01/10/2019 Inactive potassium chloride ER 10 mEq capsule,extended release RxNorm : 802200 1 Capsule(s) Oral QD 10/26/2019 12/14/2019 Inactive potassium chloride ER 10 mEq tablet,extended release RxNorm: 282954 1 TABLET(S) ORAL QD 10/22/2019 04/18/2020 Inactive Replaces PA on 1 0MEQ Capsules Aspir-81 mg tablet,delayed release RxNorm: 181180 1 Tablet(s) O ral QD 10/11/2019 No Stop Date Active cyclobenzaprine 5 mg tablet RxNorm: 453388 1 Tablet(s) Oral two times a day as needed for muscle spasm 10/11/2019 03/19/2020 Inactive Coumadin 4 mg tablet RxNorm: 420216 1 Tablet(s) Oral Mo through Thursday and 1/2 tablet (2mg) on Sat/Sun 10/11/2019 11/09/2019 Inactive potassium chloride ER 10 mEq tablet,extended release RxNorm: 078318 1 Tablet(s) Oral QD 09/22/2019 09/21/2019 Inactive Replaces PA on 1 0MEQ Capsules potassium chloride ER 10 mEq tablet,extended release RxNorm: 684107 1 Tablet(s) Oral QD 09/22/2019 10/10/2019 Inactive Replaces PA on 1 0MEQ Capsules potassium chloride ER 10 mEq capsule,extended release RxNorm : 324764 1 Capsule(s) Oral QD 09/21/2019 09/21/2019 Inactive carvedilol 25 mg tablet RxNorm: 488767 1 Tablet(s) Oral two antolin es a day 08/23/2019 11/09/2019 Inactive isosorbide mononitrate ER 30 mg tablet,extended release 24 h r RxNorm: 058255 TABLET(S) 1 TABLET(S) PO NEEDED 08/22/2019 10/04/2020 Inactive Patient requests 90 days supply isosorbide mononitrate ER 30 mg tablet,extended release 24 h r RxNorm: 313143 Tablet(s) 1 TABLET(S) PO NEEDED 08/16/2019 08/21/2019 Inactive Patient requests 90 days supply levothyroxine 50 mcg tablet RxNorm: 779791 1 Tablet(s) PO QD 201811/09/2019 Inactive isosorbide mononitrate ER 30 mg tablet,extended release 24 h r RxNorm: 954186 Tablet(s) 1 TABLET(S) PO NEEDED 06/27/2019 08/15/2019 Inactive Patient requests 90 days supply isosorbide mononitrate ER 30 mg tablet,extended release 24 h r RxNorm: 819724 1 Tablet(s) PO QD as needed 06/27/2019 06/27/2019 Inactive Neris ent requests 90 days supply carvedilol 25 mg tablet RxNorm: 534601 1 TABLET(S) PO BID 06/27/2019 08/22/2019 Inactive furosemide 40 mg tablet RxNorm: 487448 1 Tablet(s) PO QAM 06/21/2019 12/13/2019 Inactive carvedilol 25 mg tablet RxNorm: 105369 1 Tablet(s) PO BID 05/13/2019 06/26/2019 Inactive Xanax 0.25 mg tablet RxNorm: 378337 1/2 Tablet(s) PO Q6H as needed 05/13/2019 09/07/2019 Inactive levothyroxine 50 mcg tablet RxNorm: 647810 1 Tablet(s) PO QD 201808/07/2019 Inactive losartan 50 mg tablet RxNorm: 827877 1 Tablet(s) PO QD 04/26/2019 Inactive losartan 50 mg tablet RxNorm: 619768 1 Tablet(s) PO QD 04/20/201901/2019 Inactive pravastatin 40 mg tablet RxNorm: 172108 1 Tablet(s) PO QD 04/07/2019 06/05/2019 Inactive isosorbide mononitrate ER 30 mg tablet,extended release 24 h r RxNorm: 791675 1 Tablet(s) PO as needed 04/07/2019 04/06/2019 Inactive isosorbide mononitrate ER 30 mg tablet,extended release 24 h r RxNorm: 660605 1 TABLET(S) PO NEEDED 04/07/2019 06/26/2019 Inactive Patient requests 90 days supply losartan 50 mg tablet RxNorm: 718152 1 Tablet(s) PO QD 03/22/2019 Inactive Prolia subcutaneous RxNorm: 387734 subcutaneous 02/19/2021 A ctive carvedilol 25 mg tablet RxNorm: 363486 1 Tablet(s) PO BID 05/13/2019 05/12/2019 Inactive losartan 50 mg tablet RxNorm: 084891 1 Tablet(s) PO QD 03/22/2019 Inactive Ventolin HFA 90 mcg/actuation aerosol inhaler RxNorm: 006426 1-2 Puff(s) INH as needed 09/08/2019 09/07/2019 Inactive furosemide 40 mg tablet RxNorm: 339663 1 Tablet(s) PO QAM 06/21/2019 06/20/2019 Inactive pravastatin 40 mg tablet RxNorm: 906541 1 Tablet(s) PO QD 04/07/2019 04/06/2019 Inactive Coumadin 2 mg tablet RxNorm: 472790 1 Tablet(s) PO Mon, Fri, Sat and Sun then 2 tablets (4mg) on , Thu and 10/11/2019 10/10/2019 Inactive isosorbide mononitrate ER 30 mg tablet,extended release 24 h r RxNorm: 351073 Tablet(s) PO as needed 04/07/2019 04/06/2019 Inactive Women's Multivitamin 18 mg iron-400 mcg-500 mg tablet RxNorm : 1 Tablet(s) PO QD 09/08/2019 09/07/2019 Inactive Vitamin D3 1000 units Capsule RxNorm: 3 Capsule(s) PO QD 9 09/07/2019 Inactive vitamin B complex capsule RxNorm: 1 Capsule(s) PO QD 09/08/2019 Inactive potassium chloride ER 10 mEq capsule,extended release RxNorm : 264417 1 Capsule(s) PO QD 09/21/2019 09/20/2019 Inactive levothyroxine 50 mcg tablet RxNorm: 005552 1 Tablet(s) PO QD 201804/25/2019 Inactive Medication Administered No Medication Administered data Immunizations Vaccine Codes Date Status Influenza CVX: 135 08/23/2021 Complete Influenza CVX: 135 07/06/2020 Pneumovax CVX: 33 02/03/2020 Influenza CVX: 135 07/02/2019 Results Observation Observation Code Item Item Code Result Date S ervice Location PT 7584049 PT 28.3 Seconds 07/19/2021 Unknow n PT [id number] INR 2.6 07/19/2021 Unknown COMPREHENSIVE METABOLIC 17763 AST 20 U/L 2020 Unknown COMPREHENSIVE METABOLIC 86970 ALT 16 U/L 2020 Unknown COMPREHENSIVE METABOLIC 83915 BUN 35 mg/dL 2020 Unknown COMPREHENSIVE METABOLIC 36869 ALBUMIN 4.1 g/dL 2020 Unknown COMPREHENSIVE METABOLIC 98306 CHLORIDE 105 mmol/L 06/20 Unknown COMPREHENSIVE METABOLIC 31214 Bili Total 1.1 mg/dL 06/20 Unknown COMPREHENSIVE METABOLIC 66036 ALK PHOS 103 U/L 2020 Unknown COMPREHENSIVE METABOLIC 88638 SODIUM 139 mmol/L 06/20 Unknown COMPREHENSIVE METABOLIC 42255 CREATININE 0.99 mg/dL 05/24 Unknown COMPREHENSIVE METABOLIC 60131 CALCIUM 8.8 mg/dL 2020 Unknown COMPREHENSIVE METABOLIC 68565 POTASSIUM 4.7 mmol/L 06/20 Unknown COMPREHENSIVE METABOLIC 50797 Total Protein 6.2 g/dL Unknown COMPREHENSIVE METABOLIC 47799 Glucose 83 mg/dL 2020 Unknown COMPREHENSIVE METABOLIC 93312 Bicarbonate 27 mmol/L 05/24 Unknown COMPREHENSIVE METABOLIC 39303 AGAP 7 mmol/L 2020 Unknown COMPLETE BLOOD COUNT [id number] WBC 4.5 10e9/L 06/20/20 21 Unknown COMPLETE BLOOD COUNT [id number] RBC 3.99 10e12/L 2020 Unknown COMPLETE BLOOD COUNT [id number] HEMOGLOBIN 11.8 g/dL 06/20/20 21 Unknown COMPLETE BLOOD COUNT [id number] HEMATOCRIT 36.6 % 06/20/20 21 Unknown COMPLETE BLOOD COUNT [id number] MCV 91.7 fL 1 Unknown COMPLETE BLOOD COUNT [id number] MCH 29.6 pg 1 Unknown COMPLETE BLOOD COUNT 1011394 MCHC 32.2 g/dL 1 Unknown COMPLETE BLOOD COUNT 5965954 PLATELET COUNT 180 10e9/L Unknown COMPLETE BLOOD COUNT 9948404 Mean Plt Volume 11.1 fL Unknown COMPLETE BLOOD COUNT 2623456 Neut Auto 64.7 % 1 Unknown COMPLETE BLOOD COUNT 7611685 Lymph Auto 19.6 % 06/20/20 21 Unknown COMPLETE BLOOD COUNT 0298892 [place] Auto 13.5 % 1 Unknown COMPLETE BLOOD COUNT 3578937 RDW 15.1 % 1 Unknown COMPLETE BLOOD COUNT 3429364 Eos Auto 1.8 % 1 Unknown COMPLETE BLOOD COUNT 9239643 Baso Auto 0.4 % 1 Unknown COMPLETE BLOOD COUNT 6953690 Neutrophil Abs 2.91 10e9/L Unknown COMPLETE BLOOD COUNT 5130046 Lymphocyte Abs 0.88 10e9/L Unknown COMPLETE BLOOD COUNT 6307955 Monocyte Abs 0.61 10e9/L 05/24 Unknown COMPLETE BLOOD COUNT 4307643 Eosinophil Abs 0.08 10e9/L Unknown COMPLETE BLOOD COUNT [id number] RDW-SD 49.5 fL 1 Unknown COMPLETE BLOOD COUNT [id number] Basophil Abs 0.02 10e9/L 05/24 Unknown GFR CALC 3178994 GFR Non Afr Amr 53 mL/min 06/20/2021 Unk nown GFR CALC 4334341 GFR Afr Amr >60 mL/min 06/20/2021 Unknow n PT [id number] PT 27.4 Seconds 06/20/2021 Unknow n PT [id number] INR 2.5 06/20/2021 Unknown PT [id number] PT 25.8 Seconds 05/21/2021 Unknow n PT [id number] INR 2.3 05/21/2021 Unknown FREE T4 63225 T4 Free 1.19 ng/dL 04/11/2021 Unknown PT [id number] PT 33.6 Seconds 04/11/2021 Unknow n PT [id number] INR 3.3 04/11/2021 Unknown THYROID STIMULATING HORMONE 35379 TSH 3.912 uIU/mL 04/11/2021 Unknown PT [id number] PT 33.1 Seconds 03/15/2021 Unknow n PT [id number] INR 3.2 03/15/2021 Unknown PT [id number] PT 24.6 Seconds 05/23/2020 Unknow n PT [id number] INR 2.2 05/23/2020 Unknown PT [id number] PT 31.4 Seconds 10/26/2019 Unknow n PT [id number] INR 2.9 10/26/2019 Unknown PT [id number] PT 17.6 Seconds 10/11/2019 Unknow n PT [id number] INR 1.4 10/11/2019 Unknown PT [id number] PT 23.7 Seconds 09/08/2019 Unknow n PT [id number] INR 2.0 09/08/2019 Unknown PT [id number] PT 23.2 Seconds 07/29/2019 Unknow n PT [id number] INR 2.0 07/29/2019 Unknown PT [id number] PT 14.3 Seconds 07/18/2019 Unknow n PT [id number] INR 1.1 07/18/2019 [place] [address] Glucose 75 mg/dL 07/06 [place] [address] CREATININE 0.61 mg/dL [place] [address] BUN 15 mg/dL 07/06 [place] [address] SODIUM 142 mmol/L 06/23 [place] [address] POTASSIUM 4.0 mmol/L 06/23 [place] [address] CHLORIDE 106 mmol/L 06/23 [place] [address] Bicarbonate 28 mmol/[place] [address] AGAP 8 mmol/L 07/06 [place] [address] CALCIUM 9.3 mg/dL 07/06 Unknown PT [id number] PT 17.4 Seconds 07/06/2019 Unknow n PT [id number] INR 1.4 07/06/2019 Unknown GFR CALC 3954106 GFR Non Afr Amr >60 mL/min 07/06/2019 Un known GFR CALC [id number] GFR Afr Amr >60 mL/min 07/06/2019 Unknow n COMPLETE BLOOD COUNT [id number] WBC 4.7 10e9/L 07/06/20 19 Unknown COMPLETE BLOOD COUNT [id number] RBC 4.19 10e12/L 2018 Unknown COMPLETE BLOOD COUNT [id number] HEMOGLOBIN 12.6 g/dL 07/06/20 19 Unknown COMPLETE BLOOD COUNT 4574770 HEMATOCRIT 39.4 % 07/06/20 19 Unknown COMPLETE BLOOD COUNT 8534003 MCV 94.0 fL 9 Unknown COMPLETE BLOOD COUNT 7993421 MCH 30.1 pg 9 Unknown COMPLETE BLOOD COUNT 2036738 MCHC 32.0 g/dL 9 Unknown COMPLETE BLOOD COUNT 6233728 PLATELET COUNT 160 10e9/L Unknown COMPLETE BLOOD COUNT 4222504 Mean Plt Volume 11.0 fL Unknown COMPLETE BLOOD COUNT 1551828 Neut Auto 56.6 % 9 Unknown COMPLETE BLOOD COUNT 5150939 Lymph Auto 27.0 % 07/06/20 19 Unknown COMPLETE BLOOD COUNT [id number] [place] Auto 13.7 % 9 Unknown COMPLETE BLOOD COUNT 7889812 RDW 14.6 % 9 Unknown COMPLETE BLOOD COUNT 1312451 Eos Auto 2.1 % 9 Unknown COMPLETE BLOOD COUNT 4593270 Baso Auto 0.6 % 9 Unknown COMPLETE BLOOD COUNT 4629401 Neutrophil Abs 2.66 10e9/L Unknown COMPLETE BLOOD COUNT 7927460 Lymphocyte Abs 1.27 10e9/L Unknown COMPLETE BLOOD COUNT [id number] Monocyte Abs 0.64 10e9/L 06/23 Unknown COMPLETE BLOOD COUNT [id number] Eosinophil Abs 0.10 10e9/L Unknown COMPLETE BLOOD COUNT 8982007 RDW-SD 48.7 fL 9 Unknown COMPLETE BLOOD COUNT 6403956 Basophil Abs 0.03 10e9/L 06/23 Unknown COMPLETE BLOOD COUNT 2474636 WBC 4.6 10e9/L 06/14/20 19 Unknown COMPLETE BLOOD COUNT [id number] RBC 4.16 10e12/L 2018 Unknown COMPLETE BLOOD COUNT 8764767 HEMOGLOBIN 12.6 g/dL 06/14/20 19 Unknown COMPLETE BLOOD COUNT [id number] HEMATOCRIT 39.1 % 06/14/20 19 Unknown COMPLETE BLOOD COUNT 1166262 MCV 94.0 fL 9 Unknown COMPLETE BLOOD COUNT 6206133 MCH 30.3 pg 9 Unknown COMPLETE BLOOD COUNT 2882387 MCHC 32.2 g/dL 9 Unknown COMPLETE BLOOD COUNT 8412561 PLATELET COUNT 167 10e9/L Unknown COMPLETE BLOOD COUNT 9135567 Mean Plt Volume 10.9 fL Unknown COMPLETE BLOOD COUNT 6476388 Neut Auto 59.6 % 9 Unknown COMPLETE BLOOD COUNT 1449977 Lymph Auto 24.1 % 06/14/20 19 Unknown COMPLETE BLOOD COUNT 9812422 [place] Auto 14.0 % 9 Unknown COMPLETE BLOOD COUNT 5476643 RDW 14.8 % 9 Unknown COMPLETE BLOOD COUNT 4324184 Eos Auto 1.9 % 9 Unknown COMPLETE BLOOD COUNT 7689105 Baso Auto 0.4 % 9 Unknown COMPLETE BLOOD COUNT 5679575 Neutrophil Abs 2.74 10e9/L Unknown COMPLETE BLOOD COUNT 1269797 Lymphocyte Abs 1.11 10e9/L Unknown COMPLETE BLOOD COUNT 6461028 Monocyte Abs 0.64 10e9/L 05/24 Unknown COMPLETE BLOOD COUNT 1484806 Eosinophil Abs 0.09 10e9/L Unknown COMPLETE BLOOD COUNT 0683699 RDW-SD 49.3 fL 9 Unknown COMPLETE BLOOD COUNT 0808118 Basophil Abs 0.02 10e9/L 05/24 Unknown PT [id number] PT 22.3 Seconds 06/14/2019 Unknow n PT [id number] INR 1.9 06/14/2019 Unknown COMPLETE BLOOD COUNT [id number] WBC 4.0 10e9/L 05/13/20 19 Unknown COMPLETE BLOOD COUNT [id number] RBC 3.82 10e12/L 2018 Unknown COMPLETE BLOOD COUNT [id number] HEMOGLOBIN 11.5 g/dL 05/13/20 19 Unknown COMPLETE BLOOD COUNT 5264884 HEMATOCRIT 36.4 % 05/13/20 19 Unknown COMPLETE BLOOD COUNT 1151522 MCV 95.3 fL 9 Unknown COMPLETE BLOOD COUNT 6339213 MCH 30.1 pg 9 Unknown COMPLETE BLOOD COUNT 3659012 MCHC 31.6 g/dL 9 Unknown COMPLETE BLOOD COUNT 6839381 PLATELET COUNT 175 10e9/L Unknown COMPLETE BLOOD COUNT 8969410 Mean Plt Volume 10.5 fL Unknown COMPLETE BLOOD COUNT 5741389 Neut Auto 63.2 % 9 Unknown COMPLETE BLOOD COUNT 6358673 Lymph Auto 22.0 % 05/13/20 19 Unknown COMPLETE BLOOD COUNT 7059365 [place] Auto 12.1 % 9 Unknown COMPLETE BLOOD COUNT 5406638 RDW 14.9 % 9 Unknown COMPLETE BLOOD COUNT 9266046 Eos Auto 2.2 % 9 Unknown COMPLETE BLOOD COUNT 1015311 Baso Auto 0.5 % 9 Unknown COMPLETE BLOOD COUNT 1100473 Neutrophil Abs 2.53 10e9/L Unknown COMPLETE BLOOD COUNT 3842295 Lymphocyte Abs 0.88 10e9/L Unknown COMPLETE BLOOD COUNT 7140772 Monocyte Abs 0.48 10e9/L 04/24 Unknown COMPLETE BLOOD COUNT 2164972 Eosinophil Abs 0.09 10e9/L Unknown COMPLETE BLOOD COUNT 9985085 RDW-SD 49.6 fL 9 Unknown COMPLETE BLOOD COUNT 3224207 Basophil Abs 0.02 10e9/L 04/24 Unknown COMPREHENSIVE METABOLIC 24825 AST 18 U/L 2018 Unknown COMPREHENSIVE METABOLIC 86853 ALT 14 U/L 2018 Unknown COMPREHENSIVE METABOLIC 99104 BUN 15 mg/dL 2018 Unknown COMPREHENSIVE METABOLIC 34988 ALBUMIN 4.0 g/dL 2018 Unknown COMPREHENSIVE METABOLIC 94610 CHLORIDE 108 mmol/L 05/13 Unknown COMPREHENSIVE METABOLIC 16547 Bili Total 0.9 mg/dL 05/13 Unknown COMPREHENSIVE METABOLIC 10347 ALK PHOS 84 U/L 2018 Unknown COMPREHENSIVE METABOLIC 52782 SODIUM 142 mmol/L 05/13 Unknown COMPREHENSIVE METABOLIC 41724 CREATININE 0.72 mg/dL 04/24 Unknown COMPREHENSIVE METABOLIC 20138 CALCIUM 8.9 mg/dL 2018 Unknown COMPREHENSIVE METABOLIC 59906 POTASSIUM 4.0 mmol/L 05/13 Unknown COMPREHENSIVE METABOLIC 78252 Total Protein 5.5 g/dL Unknown COMPREHENSIVE METABOLIC 54544 Glucose 95 mg/dL 2018 Unknown COMPREHENSIVE METABOLIC 93635 Bicarbonate 27 mmol/L 04/24 Unknown COMPREHENSIVE METABOLIC 64353 AGAP 7 mmol/L 2018 Unknown GFR CALC [id number] GFR Non Afr Amr >60 mL/min 05/13/2019 Un known GFR CALC 9522540 GFR Afr Amr >60 mL/min 05/13/2019 Unknow n THYROID STIMULATING HORMONE 36584 TSH 2.669 uIU/mL 05/13/2019 Unknown FREE T4 72940 T4 Free 1.19 ng/dL 05/13/2019 Unknown PT [id number] PT 24.2 Seconds 05/06/2019 Unknow n PT [id number] INR 2.1 05/06/2019 Unknown PT [id number] PT 24.1 Seconds 03/08/2019 Unknow n PT [id number] INR 2.9 03/08/2019 Unknown Procedures Procedure Codes Date FLU VACC PRSV FREE INC ANTIG 65 AND OLDER CPT-4: 90610 08/23/2021 ROUTINE VENIPUNCTURE CPT-4: 85759 08/23/2021 PROTHROMBIN TIME CPT-4: 64496 08/23/2021 FLU VACC PRSV FREE INC ANTIG 65 AND OLDER CPT-4: 47595 08/23/2021 ADMIN INFLUENZA VIRUS VAC CPT-4: G0008 08/23/2021 ROUTINE VENIPUNCTURE CPT-4: 07346 07/19/2021 PROTHROMBIN TIME CPT-4: 21815 07/19/2021 ROUTINE VENIPUNCTURE CPT-4: 47221 06/20/2021 COMPREHEN METABOLIC PANEL CPT-4: 14261 06/20/2021 COMPLETE CBC W/AUTO DIFF WBC CPT-4: 06338 06/20/2021 PROTHROMBIN TIME CPT-4: 90203 06/20/2021 PT CPT-4: 5468722 05/16/2021 ROUTINE VENIPUNCTURE CPT-4: 37209 05/16/2021 ROUTINE VENIPUNCTURE CPT-4: 25648 04/11/2021 PROTHROMBIN TIME CPT-4: 74820 04/11/2021 ASSAY OF FREE THYROXINE CPT-4: 05925 04/11/2021 ASSAY THYROID STIM HORMONE CPT-4: 63920 04/11/2021 ROUTINE VENIPUNCTURE CPT-4: 18118 03/15/2021 PT CPT-4: 1763638 03/15/2021 ROUTINE VENIPUNCTURE CPT-4: 48608 02/22/2021 COMPREHEN METABOLIC PANEL CPT-4: 61112 02/22/2021 ASSAY OF FREE THYROXINE CPT-4: 84839 02/22/2021 ASSAY THYROID STIM HORMONE CPT-4: 10357 02/22/2021 COMPLETE CBC W/AUTO DIFF WBC CPT-4: 64832 02/22/2021 PROTHROMBIN TIME CPT-4: 24494 02/22/2021 LIPID PANEL CPT-4: 58879 02/22/2021 PPPS, subseq visit CPT-4: G0439 09/26/2020 ROUTINE VENIPUNCTURE CPT-4: 53424 05/23/2020 PROTHROMBIN TIME CPT-4: 22568 05/23/2020 ROUTINE VENIPUNCTURE CPT-4: 94866 01/20/2020 PT CPT-4: 7404286 01/20/2020 ROUTINE VENIPUNCTURE CPT-4: 01540 12/15/2019 PROTHROMBIN TIME CPT-4: 05115 12/15/2019 ROUTINE VENIPUNCTURE CPT-4: 38040 11/10/2019 PROTHROMBIN TIME CPT-4: 97165 11/10/2019 PROTHROMBIN TIME CPT-4: 38942 10/26/2019 ROUTINE VENIPUNCTURE CPT-4: 12872 10/26/2019 ROUTINE VENIPUNCTURE CPT-4: 52714 10/11/2019 PT CPT-4: 7461594 10/11/2019 PPPS, initial visit CPT-4: G0438 09/20/2019 ROUTINE VENIPUNCTURE CPT-4: 24000 09/08/2019 PT CPT-4: 6496278 09/08/2019 THER/PROPH/DIAG INJ SC/IM CPT-4: 71702 09/08/2019 TRIAMCINOLONE ACET INJ NOS CPT-4: J3301 09/08/2019 ROUTINE VENIPUNCTURE CPT-4: 49868 07/29/2019 PT CPT-4: 7439494 07/29/2019 ROUTINE VENIPUNCTURE CPT-4: 60904 07/18/2019 PT CPT-4: 8703058 07/18/2019 METABOLIC PANEL TOTAL CA CPT-4: 80688 07/06/2019 COMPLETE CBC W/AUTO DIFF WBC CPT-4: 34326 07/06/2019 PROTHROMBIN TIME CPT-4: 86800 07/06/2019 ROUTINE VENIPUNCTURE CPT-4: 76696 06/14/2019 PROTHROMBIN TIME CPT-4: 56472 06/14/2019 COMPLETE CBC W/AUTO DIFF WBC CPT-4: 19972 06/14/2019 ROUTINE VENIPUNCTURE CPT-4: 86641 05/13/2019 COMPREHEN METABOLIC PANEL CPT-4: 72204 05/13/2019 COMPLETE CBC W/AUTO DIFF WBC CPT-4: 98879 05/13/2019 ASSAY THYROID STIM HORMONE CPT-4: 35027 05/13/2019 ASSAY OF FREE THYROXINE CPT-4: 81322 05/13/2019 PT CPT-4: 7289849 05/06/2019 ROUTINE VENIPUNCTURE CPT-4: 89698 05/06/2019 PT CPT-4: 8464090 04/07/2019 ROUTINE VENIPUNCTURE CPT-4: 31550 04/07/2019 ROUTINE VENIPUNCTURE CPT-4: 90984 03/08/2019 PROTHROMBIN TIME CPT-4: 28340 03/08/2019 Vital Signs Date Vital 08/20/2021 Blood Pressure 1: 127/69 Code: 8480-6 Heart Rate 1: 84 bpm Respiratory Rate: 17 bpm SpO2: 98% Temperature: 36.7 (C) / 98.1 (F) We ight: 208 lbs Code: 84550-7 05/16/2021 Blood Pressure 1: 136/64 Code: 8480-6 BMI: 37.0 Code: 28531-3 Heart Rate 1: 61 bpm Height: 5'3" Code: 8302-2 Respiratory Rate: 16 bpm SpO2: 98% Temperature: 36.2 (C) / 97.1 (F) Weight: 212 lbs Code: 09459-7 03/05/2021 Blood Pressure 1: 134/76 Code: 8480-6 Heart Rate 1: 66 bpm Respiratory Rate: 16 bpm SpO2: 100% Temperature: 37.1 (C) / 98.7 (F) We ight: 203 lbs Code: 52704-1 02/19/2021 Blood Pressure 1: 126/70 Code: 8480-6 BMI: 35.4 Code: 57382-4 Heart Rate 1: 72 bpm Height: 5'3" Code: 8302-2 Respiratory Rate: 16 bpm SpO2: 99% Temperature: 36.3 (C) / 97.3 (F) Weight: 203 lbs Code: 22265-5 01/16/2021 Blood Pressure 1: 112/74 Code: 8480-6 Heart Rate 1: 76 bpm Respiratory Rate: 20 bpm Temperature: 36.7 (C) / 98.0 (F) Weight: 205 lbs Code : 91909-0 11/19/2020 Blood Pressure 1: 120/78 Code: 8480-6 Heart Rate 1: 88 bpm Temperature: 36.6 (C) / 97.8 (F) 11/12/2020 Blood Pressure 1: 110/57 Code: 8480-6 Heart Rate 1: 68 bpm Respiratory Rate: 15 bpm SpO2: 100% Weight: 202 lbs Code: 18311 -7 10/12/2020 Blood Pressure 1: 114/70 Code: 8480-6 Heart Rate 1: 84 bpm Respiratory Rate: 18 bpm SpO2: 98% Temperature: 36.7 (C) / 98.0 (F) 09/26/2020 Blood Pressure 1: 120/72 Code: 8480-6 BMI: 35.2 Code: 30006-8 Heart Rate 1: 76 bpm Height: 5'3" Code: 8302-2 Respiratory Rate: 20 bpm SpO2: 97% Temperature: 36.7 (C) / 98.0 (F) Weight: 202 lbs Code: 52193-5 08/27/2020 Blood Pressure 1: 126/82 Code: 8480-6 Heart Rate 1: 80 bpm Respiratory Rate: 20 bpm Temperature: 36.2 (C) / 97.1 (F) Weight: 198 lbs Code : 02590-8 05/23/2020 Blood Pressure 1: 120/78 Code: 8480-6 Heart Rate 1: 68 bpm Respiratory Rate: 20 bpm SpO2: 97% Temperature: 36.4 (C) / 97.5 (F) We ight: 200 lbs Code: 10001-1 05/02/2020 Blood Pressure 1: 133/81 Code: 8480-6 Heart Rate 1: 74 bpm Weight: 202 lbs Code: 10854-9 12/15/2019 Blood Pressure 1: 126/82 Code: 8480-6 Heart Rate 1: 64 bpm Respiratory Rate: 20 bpm SpO2: 97% Temperature: 36.6 (C) / 97.8 (F) We ight: 201 lbs Code: 38541-4 11/03/2019 Blood Pressure 1: 142/82 Code: 8480-6 [...] / 98.1 (F) Weight: 204 lbs Code: 00038-4 09/20/2019 Blood Pressure 1: 122/68 Code: 8480-6 BMI: 35.0 Code: 64204-3 Heart Rate 1: 72 bpm Height: 5'3" Code: 8302-2 Respiratory Rate: 18 bpm SpO2: 95% Temperature: 36.8 (C) / 98.3 (F) Weight: 201 lbs Code: 59453-0 09/08/2019 Blood Pressure 1: 118/72 Code: 8480-6 Heart Rate 1: 82 bpm SpO2: 97% Temperature: 36.3 (C) / 97.4 (F) Weight: 208 lbs Code: 12753-6 06/14/2019 Blood Pressure 1: 128/84 Code: 8480-6 Heart Rate 1: 72 bpm Respiratory Rate: 20 bpm SpO2: 98% Temperature: 36.7 (C) / 98.1 (F) We ight: 209 lbs Code: 44345-1 05/13/2019 Blood Pressure 1: 144/90 Code: 8480-6 Heart Rate 1: 88 bpm Respiratory Rate: 24 bpm SpO2: 96% Temperature: 37.1 (C) / 98.8 (F) We ight: 210 lbs Code: 25680-2 05/02/2019 Blood Pressure 1: 128/80 Code: 8480-6 Heart Rate 1: 84 bpm Respiratory Rate: 20 bpm SpO2: 95% Temperature: 36.6 (C) / 97.9 (F) We ight: 209 lbs Code: 11979-9 03/22/2019 Blood Pressure 1: 122/70 Code: 8480-6 He art Rate 1: 85 bpm 03/08/2019 Blood Pressure 1: 114/78 Code: 8480-6 BMI: 36.1 Code: 00292-6 Heart Rate 1: 76 bpm Height: 5'3" Code: 8302-2 Respiratory Rate: 20 bpm SpO2: 97% Temperature: 37.1 (C) / 98.8 (F) Weight: 207 lbs Code: 02139-7 Functional Status No Functional Status data Reason [...] pressure check 03/22/2019 ~generic 03/08/2019 New Patient---[facility] visit Encounters Encounter Performer Location Codes Date ([id number]) NURSE/OUTPATIENT VISIT EST Diagnosis: Chronic atrial fibrillation[ICD10: I48.20] Diagnosis: Long-term (current) use of anticoagulants, INR goal 2.0-3.0[ICD10: Z79.01] Diagnosis: FLU VACCINE[ICD10: Z23] Jeanie ORTEZQUELINE David SADAR 3DHAYDEE [place] CPT-4: 22812 08/23/2021 ([id number]) OFFICE/OUTPATIENT VISIT EST Diagnosis: Breast pain, left[ICD10: N64.4] Diagnosis: Left breast lump[ICD10: N63.20] Remedios JENNINGSLINE OfeAxel SADAR 3[place] CPT-4: 99619 08/20/2021 ([id number]) NURSE/OUTPATIENT VISIT EST Diagnosis: Long-term (current) use of anticoagulants, INR goal 2.0-3.0[ICD10: Z79.01] Jeanie CONNELL David SADAR 3[facility] CPT-4: 52652 07/19/2021 ([id number]) NURSE/OUTPATIENT VISIT EST Diagnosis: Essential (primary) hypertension[ICD10: I10] Diagnosis: Chronic atrial fibrillation[ICD10: I48.20] Diagnosis: Long-term (current) use of anticoagulants, INR goal 2.0-3.0[ICD10: Z79.01] Diagnosis: Anemia, unspecified[ICD10: D64.9] Jeanie Parra Visualt[employer]el [employer] CPT-4: 25682 06/20/2021 ([id number]) OFFICE/OUTPATIENT VISIT EST Diagnosis: Long-term (current) use of anticoagulants, INR goal 2.0-3.0[ICD10: Z79.01] Diagnosis: Essential (primary) hypertension[ICD10: I10] Diagnosis: Chronic congestive heart failure with left ventricular diastolic dysfunction[ICD10: I50.32] Diagnosis: Severe obesity (BMI 35.0-39.9) with comorbidity[ICD10: E66.01] Diagnosis: Chronic atrial fibrillation[ICD10: I48.20] Diagnosis: Obstructive sleep apnea syndrome[ICD10: G47.33] Remedios BLACK [employer] [facility] CPT-4: 61780 05/16/2021 ([id number]) NURSE/OUTPATIENT VISIT EST Diagnosis: Hypothyroidism, unspecified[ICD10: E03.9] Diagnosis: Long-term (current) use of anticoagulants, INR goal 2.0-3.0[ICD10: Z79.01] Jeanie BLACK [facility] CPT-4: 67411 04/11/2021 ([id number]) NURSE/OUTPATIENT VISIT EST Diagnosis: Long-term (current) use of anticoagulants, INR goal 2.0-3.0[ICD10: Z79.01] Jeanie BLACK [facility] CPT-4: 10050 03/15/2021 ([id number]) OFFICE/OUTPATIENT VISIT EST Diagnosis: Essential hypertension[ICD10: I10] Diagnosis: Cheilitis[ICD10: K13.0] Diagnosis: Pulmonary hypertension[ICD10: I27.20] Jeanie ORTEZELVA AGUILERA David BLACK [employer] [facility] CPT-4: 21711 03/05/2021 ([id number]) NURSE/OUTPATIENT VISIT EST Diagnosis: Essential (primary) hypertension[ICD10: I10] Diagnosis: Hypothyroidism, unspecified[ICD10: E03.9] Diagnosis: Long-term (current) use of anticoagulants, INR goal 2.0-3.0[ICD10: Z79.01] Diagnosis: Mixed hyperlipidemia[ICD10: E78.2] Jeanie Avendañoalberta ANN MCKEE David BLACK [employer] [facility] CPT-4: 96681 02/22/2021 ([id number]) OFFICE/OUTPATIENT VISIT EST Diagnosis: Cheilitis[ICD10: K13.0] Diagnosis: Encounter for medication review and counseling[ICD10: Z71.89] Diagnosis: Long-term (current) use of anticoagulants, INR goal 2.0-3.0[ICD10: Z79.01] Diagnosis: Hypothyroidism, unspecified[ICD10: E03.9] Diagnosis: Mixed hyperlipidemia[ICD10: E78.2] Diagnosis: Severe obesity (BMI 35.0-39.9) with comorbidity[ICD10: E66.01] Diagnosis: Chronic congestive heart failure with left ventricular diastolic dysfunction[ICD10: I50.32] Remedios BLACK DO [facility] CPT- 4: 00226 02/19/2021 ([id number]) OFFICE/OUTPATIENT VISIT EST Diagnosis: Cheilitis[ICD10: K13.0] Jannette PINZON DO [facility] CPT-4: 94166 01/16/2021 ([id number]) OFFICE/OUTPATIENT VISIT EST Diagnosis: Hypotension[ICD10: I95.9] Diagnosis: Dizziness[ICD10: R42] Jannette BLACK DO C CPT-4: 52731 11/12/2020 ([id number]) OFFICE/OUTPATIENT VISIT EST Diagnosis: Thoracic back pain[ICD10: M54.6] Diagnosis: Dizziness[ICD10: R42] Jannette BLACK DO [facility] CPT-4: 84755 10/12/2020 ([id number]) OFFICE/OUTPATIENT VISIT EST Diagnosis: Chronic atrial fibrillation[ICD10: I48.20] Diagnosis: Chronic airway obstruction, not elsewhere classified[ICD10: J44.9] Diagnosis: Essential hypertension[ICD10: I10] Jeaniemari MCKEE David BLACK DO [facility] CPT-4: 55476 08/27/2020 ([id number]) OFFICE/OUTPATIENT VISIT EST Diagnosis: Essential (primary) hypertension[ICD10: I10] Diagnosis: Chronic atrial fibrillation[ICD10: I48.20] Diagnosis: COPD (chronic obstructive pulmonary disease)[ICD10: J44.9] Diagnosis: Dyspnea[ICD10: R06.00] Diagnosis: Left hip pain[ICD10: M25.552] Jeaniecristhian Black JEANIE David BLACK DO [facility] CPT-4: 96668 05/23/2020 ([id number]) NURSE/OUTPATIENT VISIT EST Diagnosis: Essential (primary) hypertension[ICD10: I10] Jeanie CONNELL OfeAxel VARUN MCCURDY [facility] CPT-4: 75952 05/02/2020 ([id number]) OFFICE/OUTPATIENT VISIT EST Diagnosis: COPD (chronic obstructive pulmonary disease)[ICD10: J44.9] Diagnosis: Chronic atrial fibrillation[ICD10: I48.20] Diagnosis: Essential hypertension[ICD10: I10] [facility]PT-[facility]: 59651 03/20/2020 ([id number]) NURSE/OUTPATIENT VISIT EST Diagnosis: Long-term (current) use of anticoagulants, INR goal 2.0-3.0[ICD10: Z79.01] Jeanie Dykeshaydeealberta ThakurAxel VARUN [employer] [facility] CPT-4: 18571 01/20/2020 ([id number]) OFFICE/OUTPATIENT VISIT EST Diagnosis: COPD (chronic obstructive pulmonary disease)[ICD10: J44.9] Diagnosis: Long-term (current) use of anticoagulants, INR goal 2.0-3.0[ICD10: Z79.01] Diagnosis: History of recent fall[ICD10: Z91.81] Jeanie Donisanirudh WALTON ALE OfeAxel DONISHAYDEEALBERTA [employer] [facility] CPT-4: 82046 12/15/2019 ([id number]) NURSE/OUTPATIENT VISIT EST Diagnosis: Long-term (current) use of anticoagulants, INR goal 2.0-3.0[ICD10: Z79.01] Jeanie Avendañoalberta JEANIE ThakurAxel VARUN [employer] [facility] CPT-4: 22347 11/10/2019 ([id number]) OFFICE/OUTPATIENT VISIT EST Diagnosis: Post concussion syndrome[ICD10: F07.81] Diagnosis: Head contusion[ICD10: S00.93XA] Diagnosis: Chronic airway obstruction, not elsewhere classified[ICD10: J44.9] Jeanie Dykesanirudh ORTEZJEANIE SAxel VARUN [employer] [facility] CPT-4: 42295 11/03/2019 ([id number]) OFFICE/OUTPATIENT VISIT EST Diagnosis: Fall as cause of accidental injury at home as place of occurrence[ICD10: W19.XXXA] Diagnosis: Headache[ICD10: R51] Diagnosis: Essential (primary) hypertension[ICD10: I10] Diagnosis: Long-term (current) use of anticoagulants, INR goal 2.0-3.0[ICD10: Z79.01] Diagnosis: Ecchymosis of left eye[ICD10: S05.12XA] Jannettevalentina BLACK DO [facility] CPT-4: 64049 10/31/2019 ([id number]) NURSE/OUTPATIENT VISIT EST Diagnosis: Long-term (current) use of anticoagulants, INR goal 2.0-3.0[ICD10: Z79.01] Jeanie JENNINGSLINE David BLACK DO [facility] CPT-4: 91299 10/26/2019 ([id number]) OFFICE/OUTPATIENT VISIT EST Diagnosis: Long-term (current) use of anticoagulants, INR goal 2.0-3.0[ICD10: Z79.01] Diagnosis: Pain in right arm[ICD10: M79.601] Diagnosis: Radiculopathy of arm[ICD10: M54.10] Jannette BLACK DO [facility] CPT-4: 51109 10/11/2019 ([id number]) OFFICE/OUTPATIENT VISIT EST Diagnosis: Long-term (current) use of anticoagulants, INR goal 2.0-3.0[ICD10: Z79.01] Diagnosis: Sinusitis[ICD10: J32.9] Diagnosis: Pain in right arm[ICD10: M79.601] Jannette BLACK DO [employer] CPT-4: 19166 09/08/2019 ([id number]) NURSE/OUTPATIENT VISIT EST Diagnosis: Chronic atrial fibrillation[ICD10: I48.2] Diagnosis: Encounter for therapeutic drug level monitoring[ICD10: Z51.81] Jeanie Donisanirudh JEANIE OfeAxel VARUN MCCURDY [facility] CPT-4: 02045 07/29/2019 ([id number]) NURSE/OUTPATIENT VISIT EST Diagnosis: Chronic atrial fibrillation[ICD10: I48.2] Diagnosis: Encounter for therapeutic drug level monitoring[ICD10: Z51.81] Jeanie Donisanirudh JEANIE OfeAxel VARUN MCCURDY [facility] CPT-4: 77449 07/18/2019 ([id number]) NURSE/OUTPATIENT VISIT EST Diagnosis: Encounter for therapeutic drug level monitoring[ICD10: Z51.81] Diagnosis: Chronic atrial fibrillation[ICD10: I48.2] Diagnosis: Essential (primary) hypertension[ICD10: I10] Jeanie ORTEZQUELINE OfeAxel VARUN MCCURDY [facility] CPT-4: 31546 07/06/2019 ([id number]) OFFICE/OUTPATIENT VISIT EST Diagnosis: Encounter for therapeutic drug level monitoring[ICD10: Z51.81] Diagnosis: Anemia, unspecified[ICD10: D64.9] Diagnosis: Bitten by dog, sequela[ICD10: W54.0XXS] 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] Jeanie BLACK [employer] CPT-4: 93021 06/14/2019 ([id number]) OFFICE/OUTPATIENT VISIT EST Diagnosis: Bitten by dog, sequela[ICD10: W54.0XXS] Diagnosis: Other fatigue[ICD10: R53.83] Diagnosis: Hypothyroidism, unspecified[ICD10: E03.9] Diagnosis: Muscle weakness (generalized)[ICD10: M62.81] Diagnosis: Generalized anxiety disorder[ICD10: F41.1] Jannette BLACK [employer] CPT-4: 47209 05/13/2019 ([id number]) NURSE/OUTPATIENT VISIT EST Diagnosis: Encounter for therapeutic drug level monitoring[ICD10: Z51.81] Jeanie BLACK [employer] CPT-4: 95090 05/06/2019 ([id number]) OFFICE/OUTPATIENT VISIT EST Diagnosis: Bitten by dog, sequela[ICD10: W54.0XXS] Diagnosis: Pain in right wrist[ICD10: M25.531] Diagnosis: Abrasion of right upper arm, sequela[ICD10: S40.811S] Diagnosis: Abrasion of left upper arm, sequela[ICD10: S40.812S] Jannette BLACK [employer] CPT-4: 64054 05/02/2019 ([id number]) NURSE/OUTPATIENT VISIT EST Diagnosis: Encounter for therapeutic drug level monitoring[ICD10: Z51.81] Jeanie BLACK [employer] CPT-4: 29978 04/07/2019 ([id number]) OFFICE/OUTPATIENT VISIT NEW Diagnosis: Encounter for therapeutic drug level monitoring[ICD10: Z51.81] Diagnosis: Chronic atrial fibrillation[ICD10: I48.2] Diagnosis: Essential (primary) hypertension[ICD10: I10] Diagnosis: Abnormal findings on diagnostic imaging of heart and coronary circulation[ICD10: R93.1] Diagnosis: Other forms of dyspnea[ICD10: R06.09] Diagnosis: Hypothyroidism, unspecified[ICD10: E03.9] Diagnosis: Mixed hyperlipidemia[ICD10: E78.2] Jeanie BLACK DO [facility] CPT-4: 07432 03/08/2019 Plan of Care Planned Activity Notes Codes Status Date Visit Plan: 08/20/2021 Visit Diagnosis Plan: Left breast lump Discussion: [place] get US of left breast and soft tissue under breast and f/u with results. F/U for sooner for concerns. ICD-9 : 611.72 ICD-10 : N63.20 08/20/2021 Appointment: Jeanie Black WPtel: [address] [place] [address] US CANCELED 08/20/2021 Appointment: Remedios Cavazos WPtel: [phone] ACUTE ILLNESS 08/20/2021 Patient Education: Patient Medication Summary Completed 08/20/2021 Appointment: Jeanie Black WPtel: [address] [place] [address] US see note in chart from 08/08/21 (km) CANCELED 08/08/2021 Appointment: Jeanie Black WPtel: [address] [place] [address] US LAB 07/19/2021 Appointment: Jeanie Black WPtel: [address] [place] [address] US LAB 06/20/2021 Visit Diagnosis Plan: Severe obesity (BMI 35.0-39.9) w ith comorbidity Discussion: Discussed diet and exercise ICD-9 : 278.01 ICD-10 : E66.01 05/16/2021 Visit Diagnosis Plan: Obstructive sleep apnea syndrome Discussion: Per pulm note- [place] [facility] [place] them to check, patient states [...] 05/16/2021 Appointment: Remedios Cavazos WPtel[facility] [phone] [facility] [place] MEDICATION REVIEW 05/16/2021 Patient Education: Patient Medication Summary Completed 05/16/2021 Patient Education: isosorbide mononitrate- [employer] Coupon [id number] https://www.[employer]Rawbots/samplemd/resources/getResource/61/d0b1s3y3-t384-306k-u8 Completed 05/16/2021 Patient Education: High Blood Pressure Co mpleted 05/16/2021 Appointment: Jeanie Black WPtel: [address] [place], [place] [id number] [place] LAB 04/11/2021 Appointment: Jeanie Black WPtel: [address] [place], [place] [id number] [place] CANCELED 03/27/2021 Appointment: Jeanie Black WPtel: [address] [place], [place] [id number] [place] LAB 03/15/2021 Visit Diagnosis Plan: Pulmonary [...] I10 03/05/2021 Appointment: [facility] [phone] [facility] [facility] FO[facility] 03/05/2021 Patient Education: spironolactone- [employer] Coupon 1 [id number] https://www.[employer])/resources/getResource/61/3xa27eo5-8c3n-1o55-6t Completed 03/05/2021 Appointment: Jeanie Black [facility]Ptel: [phone] [facility] [facility] 02/22/2021 Visit Diagnosis Plan: Cheilitis [...] E78.2 02/19/2021 Appointment: Remedios Cavazos WPtel: [phone] MEDICATION REVIEW 02/19/2021 Patient Education: Patient [...] ICD-10 : K13.0 01/16/2021 Appointment: Jannette Mayen [address] [place] [address] ACUTE ILLNESS 01/16/2021 Appointment: Jeanie Black WPtel: [phone] [place] [phone] US BP CHECK 11/19/2020 Visit Diagnosis Plan: [...] ICD-10 : I95.9 11/12/2020 Appointment: Jannette Mayen [address] [place] [address] ACUTE ILLNESS 11/12/2020 Visit Diagnosis Plan: Thoracic [...] ICD-10 : R42 10/12/2020 Appointment: Jannette Mayen [address] [place] [address] ACUTE ILLNESS 10/12/2020 Visit Diagnosis Plan: Chronic atrial fibrillation Disc ussion: Following routinely with cardiology ICD-9 : 427.31 ICD-10 : I48.20 09/26/2020 Visit Diagnosis Plan: Essential (primary) hypertension Discussion: Stable ICD-9 : 401.9 ICD-10 : I10 09/26/2020 Visit Diagnosis Plan: Encounter for [facility] adult medical examination without abnormal [...] : I50.32 09/26/2020 Appointment: Jeanie Black WPtel: [address] [place], [place] [id number] [place] Annual Well Visit 09/26/2020 Care Plan: Referral Order SNOMED-CT : [id number] Pending 09/26/2020 Visit Diagnosis Plan: Chronic airway [...] : I48.20 08/27/2020 Appointment: Jeanie Black WPtel: [address] [place] [id number] US FOLLOW UP 08/27/2020 Visit Diagnosis Plan: [...] : I10 05/23/2020 Appointment: Jeanie Black WPtel: [address] [place] [id number] US FOLLOW UP 05/23/2020 Appointment: Jeanie Black WPtel: [address] [place], [place] [phone] NURSE SERVICES 05/02/2020 Visit Diagnosis Plan: Chronic [...] : J44.9 03/20/2020 Appointment: Jeanie Black WPtel: [address] [place], [place] [phone] TELEMEDICINE 03/20/2020 Patient Education: Coumadin- [employer] Coupon [id number] https://www.[employer]psourcing/[employer] ([employer])/resources/getResource/61/6a908q32-45v5-7fdk-5j Completed 03/20/2020 Patient Education: Coumadin- [employer] Coupon [id number] https://www.[employer] ([employer])/resources/getResource/61/2cr27x7q-8e0w-0tw5-jx Completed 03/20/2020 Appointment: Jeanie Black WPtel: [address] [place], [place] [phone] LAB 01/20/2020 Visit Diagnosis Plan: History of recent fall Discussio n: Healing well Doing balance class at [facility] Follow Up: 3 months ICD-9 : V15.88 ICD-10 : Z91.81 12/15/2019 Visit Diagnosis Plan: COPD (chronic obstructive pulmon valeria disease) Discussion: Continue pulmonary rehab ICD-9 : 496 ICD-10 : J44.9 12/15/2019 Visit Diagnosis Plan: Long-term (current ) use of anticoagulants, INR goal 2.0-3.0 Discussion: PT/INR drawn ICD-9 : V58.61 ICD-10 : Z79.01 12/15/2019 Appointment: Jeanie Black [facility]Ptel: [phone] [facility] [facility] FOLLOW [facility] 12/15/2019 Patient Education: Coumadin- [employer] Coupon [id number] https://www.[employer] ([employer]Rawbots/[employer] ([employer])/resources/getResource/61/m515ioou-aw50-5hzq-6w Completed 12/15/2019 Appointment: Jeanie Black WPtel: [address] [place], [place] [phone] [place] LAB 11/10/2019 Visit Diagnosis Plan: Post [...] : J44.9 11/03/2019 Appointment: Jeanie Black WPtel: [facility] FOLLOW UP 11/03/2019 Care Plan: CT HEAD/BRAIN W/O DYE LOST. [facility] : 65386-6 Pending 11/01/2019 Visit Diagnosis Plan: Essential (primary) [...] ICD-10 : S05.12XA 10/31/2019 Appointment: Jannette Mayen [address] [place] [address] Hospital Follow Up 10/31/2019 Patient Education: High Blood Pressure Co mpleted 10/31/2019 Patient Education: losartan- [employer] Coupon [id number] https://www.[employer] ([employer]Rawbots/samplemd/resources/getResource/61/7q556385-1z26-6379-9h Completed 10/31/2019 Appointment: Jeanie Black WPtel: [phone] [facility] FOLLOW UP 10/26/2019 Visit Diagnosis Plan: Long-term (current ) use of anticoagulants, INR goal 2.0-3.0 Discussion: will update pt/inr ICD-9 : V58.61 ICD-10 : Z79.01 10/11/2019 Visit Diagnosis Plan: Radiculopathy of arm Discussion: flexeril prescribed to take as needed. will start at low dose but instructed patient to call office if not effective and will increase mg dose. PT ordered at [facility] to assist with pain. if no improvement or worsening from PT, will need imaging. 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 ICD-9 : 906.1 ICD-10 : [...] : E78.2 09/20/2019 Appointment: Jeanie Black WPtel: [address] [place] [address] Annual Well Visit 09/20/2019 Visit Diagnosis Plan: [...] ICD-10 : Z79.01 09/08/2019 Appointment: Jannette Mayen [address] [place] [address] ACUTE ILLNESS 09/08/2019 Appointment: Jaenie Black WPtel: [address] [place] [address] US CANCELED 08/16/2019 Appointment: Jeanie Black WPtel: [address] [place], [place] [id number] US LAB 07/29/2019 [facility] [phone] [facility] [facility] 07/18/2019 [facility]ment[facility] [phone] [facility] [facility] 07/06/2019 Visit Diagnosis Plan: Bitten [...] D64.9 06/14/2019 App[facility]ment: [facility] [address] [facility] [facility] FOLLOW UP 06/14/2019 Visit [...] hydrocodone several days ago. will refer to [facility] as well to discuss concerns. [...] : R53.83 05/13/2019 Appointment: [facility] [address] [facility] FOLLOW UP 05/13/2019 Patient Education: carvedilol- [employer] Coupon [phone] [email or web address] Completed 05/13/2019 Patient Education: [employer]- [employer] Coupon [id number] [email or web address] Completed 05/13/2019 Appointment: Jean[facility] Black [facility] [phone] [facility] [facility] 05/06/2019 Visit Diagnosis Plan: Abrasion [...] will send results to dr. portillo at [facility]. ICD-9 : 719.43 ICD-10 : M25.531 05/02/2019 Appointment: Jannette Mayen [address] ACUTE ILLNESS 05/02/2019 Care Plan: X-RAY EXAM OF WRIST right LOINC : 3 [id number] Pending 05/02/2019 Appointment: Jeanie Black WPtel: [address] [place] [address] US LAB 04/07/2019 Appointment: Jeanie Black WPtel: [address] [place] [address] US BP CHECK 03/22/2019 Visit Diagnosis Plan: [...] Appointment: Jeanie Black WPtel: [phone] [id number] US NEW PATIENT 03/08/2019 Referral: Shona Viera WPtel: [facility] [address] [facility] Referral Appointment Requested Instructions No Instructions Medical Equipment No Medical Equipment data Health Concerns Section Health Concerns data not found Goals Section Goals data not found Interventions Section Interventions data not found Health Status Evaluations/Outcomes Section Health Status Evaluations/Outcomes data not found Advance Directives No Advance Directive data
--- OUTSIDE RECORDS SUMMARY | 2021-09-19 12:40 | XMS REPORT | CCD ---
Author Author Tricia Black D.O. 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] Instructions isosorbide mononitrate 10 mg tablet RxNorm: 427042 Take 1 Tablet(s) Oral two times a day 08/08/2021 No Stop Date Active losartan 100 mg tablet RxNorm: 902363 Take 1 Tablet(s) Oral QD 07/2411/02/2021 Active amoxicillin 500 mg capsule RxNorm: 020297 4 Capsule(s) Oral QD 1hr prior to dental cleaning 08/05/2021 08/05/2021 Inactive levothyroxine 50 mcg tablet RxNorm: 374656 TAKE 1 TABLE T BY MOUTH EVERY DAY. RECHECK LABS IN 2 MONTHS 08/04/2021 10/02/2021 Active potassium chloride ER 10 mEq tablet,extended release RxNorm: 459126 TAKE 1 TABLET BY MOUTH EVERY DAY 07/14/2021 10/11/2021 Active spironolactone 25 mg tablet RxNorm: 714783 1/2 Tablet(s) Oral QD No Stop Date Active isosorbide mononitrate 10 mg tablet RxNorm: 386409 Take 1 Tablet(s) Oral two times a day 05/16/2021 05/16/2021 Inactive isosorbide mononitrate ER 30 mg tablet,extended release 24 h r RxNorm: 824708 TABLET(S) 1 TABLET(S) PO NEEDED Tablet(s) Oral 05/16/2021 08/07/2021 Inactive Patient requests 90 days supply furosemide 40 mg tablet RxNorm: 681058 TAKE 1 TABLET BY MOUTH E VERY MORNING 05/07/2021 08/04/2021 Inactive isosorbide mononitrate 10 mg tablet RxNorm: 253858 Take 1 Tablet(s) Oral two times a day 04/26/2021 05/15/2021 Inactive isosorbide mononitrate 10 mg tablet RxNorm: 357444 Take 1 Tablet(s) Oral two times a day 04/25/2021 04/25/2021 Inactive potassium chloride ER 10 mEq tablet,extended release RxNorm: 469340 TAKE 1 TABLET BY MOUTH EVERY DAY 04/19/2021 04/19/2021 Inactive Coumadin 4 mg tablet RxNorm: 896186 1 Tablet(s) Oral Thursday04/11/2021 07/10/2021 Inactive Coumadin 2 mg tablet RxNorm: 706899 1 Tablet(s) Oral on Thursday and Thursday04/11/2021 07/10/2021 Inactive carvedilol 25 mg tablet RxNorm: 713922 1 Tablet(s) Oral two antolin es a day 04/03/2021 09/29/2021 Active Coumadin 2 mg tablet RxNorm: 750504 TAKE 1 TABLET BY [facility] ON THURSDAY AND Thursday03/26/2021 04/10/2021 Inactive Coumadin 4 mg tablet RxNorm: 188570 1 Tablet(s) Oral QD 02/26/2021 Inactive levothyroxine 50 mcg tablet RxNorm: 514459 1 Tablet(s) Oral QD Recheck labs in 2 months 02/26/2021 02/26/2021 Inactive Recheck labs in 2 months levothyroxine 50 mcg tablet RxNorm: 066131 1 Tablet(s) Oral QD Recheck labs in 2 months 02/26/2021 02/25/2021 Inactive Recheck labs in 2 months losartan 100 mg tablet RxNorm: 050824 TAKE 1 TABLET BY MOUTH 02/22/2021 08/20/2021 Inactive spironolactone 25 mg tablet RxNorm: 437032 1 Tablet(s) Oral QD 01/2303/04/2021 Inactive isosorbide mononitrate 10 mg tablet RxNorm: 253948 1 Ta blet(s) Oral two times a day 02/19/2021 02/25/2021 Inactive famotidine 20 mg tablet RxNorm: 794622 1 Tablet(s) Oral QD 02/20/2003/04/2021 Inactive levothyroxine 25 mcg tablet RxNorm: 816823 1 Tablet(s) Oral QD 07/20212021 Inactive atorvastatin 40 mg tablet RxNorm: 280249 1 Tablet(s) Or al QPM replaces pravastatin 01/29/2021 07/27/2021 Inactive furosemide 40 mg tablet RxNorm: 032352 TAKE 1 TABLET BY MOUTH E VERY MORNING 01/28/2021 01/28/2021 Inactive prednisone 10 mg tablet RxNorm: 763399 1 Tablet(s) Oral two antolin es a day 01/16/2021 01/19/2021 Inactive atorvastatin 40 mg tablet RxNorm: 975953 1 Tablet(s) Or al QPM replaces pravastatin 12/31/2020 01/28/2021 Inactive carvedilol 25 mg tablet RxNorm: 540863 TAKE 1 TABLET BY MOUTH T WICE DAILY 12/31/2020 04/02/2021 Inactive potassium chloride ER 10 mEq tablet,extended release RxNorm: 017794 TAKE 1 TABLET BY MOUTH EVERY DAY 12/31/2020 12/31/2020 Inactive losartan 100 mg tablet RxNorm: 312522 1 Tablet(s) Oral QD 12/03/2020 02/21/2021 Inactive Coumadin 4 mg tablet RxNorm: 930120 TAKE 1 TABLET BY [facility] THURSDAY THROUGH Thursday11/30/2020 02/25/2021 Inactive levothyroxine 25 mcg tablet RxNorm: 437234 1 Tablet(s) Oral QD 10/2401/28/2021 Inactive famotidine 20 mg tablet RxNorm: 473825 1 Tablet(s) Oral QD 11/19/20 20 01/15/2021 Inactive famotidine 20 mg tablet RxNorm: 030399 1 Tablet(s) Oral QD 11/19/20 20 11/18/2020 Inactive levothyroxine 50 mcg tablet RxNorm: 789647 TAKE 1 TABLET BY ENE EVERY DAY 11/06/2020 01/29/2021 Inactive furosemide 40 mg tablet RxNorm: 219274 TAKE 1 TABLET BY MOUTH E VERY MORNING 11/05/2020 01/27/2021 Inactive atorvastatin 40 mg tablet RxNorm: 599174 1 Tablet(s) Or al QPM replaces pravastatin 10/22/2020 12/30/2020 Inactive atorvastatin 40 mg tablet RxNorm: 315381 1 Tablet(s) Or al QPM replaces pravastatin 10/22/2020 10/21/2020 Inactive spironolactone 25 mg tablet RxNorm: 935456 1 Tablet(s) Oral QAM 01/15/2021 Inactive carvedilol 25 mg tablet RxNorm: 996057 TAKE 1 TABLET BY MOUTH T WICE DAILY 10/04/2020 12/30/2020 Inactive pravastatin 40 mg tablet RxNorm: 383146 TAKE 1 TABLET BY MOUTH EVERY DAY 10/04/2020 12/31/2020 Inactive potassium chloride ER 10 mEq tablet,extended release RxNorm: 673725 TAKE 1 TABLET BY MOUTH EVERY DAY 10/04/2020 12/30/2020 Inactive isosorbide mononitrate ER 30 mg tablet,extended release 24 h r RxNorm: 026631 TABLET(S) 1 TABLET(S) PO NEEDED Oral 10/04/2020 02/18/2021 Inactive Patient requests 90 days supply furosemide 40 mg tablet RxNorm: 764109 TAKE 1 TABLET BY MOUTH E VERY MORNING 10/01/2020 11/04/2020 Inactive losartan 100 mg tablet RxNorm: 417005 TAKE 1 TABLET BY MOUTH EV 09/19/2020 12/02/2020 Inactive amlodipine 5 mg tablet RxNorm: 836707 1 Tablet(s) Oral QD 08/27/2020 11/11/2020 Inactive spironolactone 25 mg tablet RxNorm: 597382 1 Tablet(s) Oral QAM 03/202010/21/2020 Inactive levothyroxine 50 mcg tablet RxNorm: 717576 TAKE 1 TABLET BY ENE TH EVERY DAY 08/07/2020 11/04/2020 Inactive levothyroxine 50 mcg tablet RxNorm: 907418 TAKE 1 TABLET BY ENE TH EVERY DAY 08/06/2020 08/06/2020 Inactive amoxicillin 500 mg capsule RxNorm: 211162 4 Capsule(s) Oral QD 1hr prior to dental cleaning 07/31/2020 07/30/2020 Inactive amoxicillin 500 mg capsule RxNorm: 876247 4 Capsule(s) Oral QD 1hr prior to dental cleaning 07/31/2020 07/31/2020 Inactive potassium chloride ER 10 mEq tablet,extended release RxNorm: 251171 TAKE 1 TABLET BY MOUTH EVERY DAY 07/23/2020 10/03/2020 Inactive pravastatin 40 mg tablet RxNorm: 288802 TAKE 1 TABLET BY MOUTH EVERY DAY 07/23/2020 10/03/2020 Inactive carvedilol 25 mg tablet RxNorm: 499153 TAKE 1 TABLET BY MOUTH T WICE DAILY 07/23/2020 10/03/2020 Inactive losartan 100 mg tablet RxNorm: 714292 TAKE 1 TABLET BY MOUTH EV RANDI DAY 06/27/2020 09/18/2020 Inactive furosemide 40 mg tablet RxNorm: 959853 TAKE 1 TABLET BY MOUTH E VERY MORNING 06/08/2020 09/30/2020 Inactive Coumadin 4 mg tablet RxNorm: 412011 1 Tablet(s) Oral Thursday thr thursday06/07/2020 11/29/2020 Inactive Coumadin 2 mg tablet RxNorm: 894185 1 Tablet(s) Oral on and Thursday03/20/2020 03/19/2020 Inactive Coumadin 4 mg tablet RxNorm: 232861 1 Tablet(s) Oral Thursday thr thursday03/20/2020 06/06/2020 Inactive losartan 100 mg tablet RxNorm: 211923 TAKE 1 TABLET BY MOUTH EV RANDI DAY 03/20/2020 06/26/2020 Inactive Coumadin 2 mg tablet RxNorm: 663432 1 Tablet(s) Oral on and Thursday03/20/2020 02/25/2021 Inactive furosemide 40 mg tablet RxNorm: 018689 1 Tablet(s) Oral [facility] 020 06/07/2020 Inactive pravastatin 40 mg tablet RxNorm: 489044 TAKE 1 TABLET BY MOUTH EVERY DAY 02/07/2020 07/22/2020 Inactive losartan 100 mg tablet RxNorm: 020840 TAKE 1 TABLET BY MOUTH EV RANDI DAY 02/01/2020 03/19/2020 Inactive losartan 100 mg tablet RxNorm: 312986 TAKE 1 TABLET BY MOUTH EV RANDI DAY 01/17/2020 01/31/2020 Inactive Coumadin 2 mg tablet RxNorm: 575952 1 Tablet(s) Oral on and Thursday12/15/2019 12/15/2019 Inactive furosemide 40 mg tablet RxNorm: 237421 TAKE 1 TABLET BY MOUTH E VERY MORNING 12/14/2019 03/12/2020 Inactive pravastatin 40 mg tablet RxNorm: 564369 TAKE 1 TABLET BY MOUTH EVERY DAY 11/27/2019 02/06/2020 Inactive losartan 100 mg tablet RxNorm: 576725 1 Tablet(s) Oral QD 11/10/2019 01/16/2020 Inactive isosorbide mononitrate ER 30 mg tablet,extended release 24 h r RxNorm: 779785 TABLET(S) 1 TABLET(S) PO NEEDED 11/10/2019 05/08/2020 Inactive Patient requests 90 days supply carvedilol 25 mg tablet RxNorm: 683908 1 Tablet(s) Oral two antolin es a day 11/10/2019 05/08/2020 Inactive Coumadin 2 mg tablet RxNorm: 758754 1 Tablet(s) Oral on and Thursday11/10/2019 12/14/2019 Inactive losartan 100 mg tablet RxNorm: 873577 1 Tablet(s) Oral QD 11/10/2019 11/09/2019 Inactive levothyroxine 50 mcg tablet RxNorm: 396282 1 Tablet(s) Oral QD 10/2310/21/2020 Inactive Coumadin 4 mg tablet RxNorm: 346398 1 Tablet(s) Oral Thursday thr thursday11/10/2019 11/10/2019 Inactive losartan 50 mg tablet RxNorm: 962460 2 Tablet(s) Oral QD 11/01/2019 1 01/10/2019 Inactive potassium chloride ER 10 mEq capsule,extended release RxNorm : 358890 1 Capsule(s) Oral QD 10/26/2019 12/14/2019 Inactive potassium chloride ER 10 mEq tablet,extended release RxNorm: 129527 1 TABLET(S) ORAL QD 10/22/2019 04/18/2020 Inactive Replaces PA on 1 0MEQ Capsules Aspir-81 mg tablet,delayed release RxNorm: 181427 1 Tablet(s) O ral QD 10/11/2019 No Stop Date Active cyclobenzaprine 5 mg tablet RxNorm: 303431 1 Tablet(s) Oral two times a day as needed for muscle spasm 10/11/2019 03/19/2020 Inactive Coumadin 4 mg tablet RxNorm: 123171 1 Tablet(s) Oral Mo through Thursday and 1/2 tablet (2mg) on Sat/Sun 10/11/2019 11/09/2019 Inactive potassium chloride ER 10 mEq tablet,extended release RxNorm: 469754 1 Tablet(s) Oral QD 09/22/2019 09/21/2019 Inactive Replaces PA on 1 0MEQ Capsules potassium chloride ER 10 mEq tablet,extended release RxNorm: 620812 1 Tablet(s) Oral QD 09/22/2019 10/10/2019 Inactive Replaces PA on 1 0MEQ Capsules potassium chloride ER 10 mEq capsule,extended release RxNorm : 833140 1 Capsule(s) Oral QD 09/21/2019 09/21/2019 Inactive carvedilol 25 mg tablet RxNorm: 727726 1 Tablet(s) Oral two antolin es a day 08/23/2019 11/09/2019 Inactive isosorbide mononitrate ER 30 mg tablet,extended release 24 h r RxNorm: 125759 TABLET(S) 1 TABLET(S) PO NEEDED 08/22/2019 10/04/2020 Inactive Patient requests 90 days supply isosorbide mononitrate ER 30 mg tablet,extended release 24 h r RxNorm: 179251 Tablet(s) 1 TABLET(S) PO NEEDED 08/16/2019 08/21/2019 Inactive Patient requests 90 days supply levothyroxine 50 mcg tablet RxNorm: 356185 1 Tablet(s) PO QD 201811/09/2019 Inactive isosorbide mononitrate ER 30 mg tablet,extended release 24 h r RxNorm: 561394 Tablet(s) 1 TABLET(S) PO NEEDED 06/27/2019 08/15/2019 Inactive Patient requests 90 days supply isosorbide mononitrate ER 30 mg tablet,extended release 24 h r RxNorm: 697259 1 Tablet(s) PO QD as needed 06/27/2019 06/27/2019 Inactive Neris ent requests 90 days supply carvedilol 25 mg tablet RxNorm: 498934 1 TABLET(S) PO BID 06/27/2019 08/22/2019 Inactive furosemide 40 mg tablet RxNorm: 932329 1 Tablet(s) PO QAM 06/21/2019 12/13/2019 Inactive carvedilol 25 mg tablet RxNorm: 240734 1 Tablet(s) PO BID 05/13/2019 06/26/2019 Inactive Xanax 0.25 mg tablet RxNorm: 914160 1/2 Tablet(s) PO Q6H as needed 05/13/2019 09/07/2019 Inactive levothyroxine 50 mcg tablet RxNorm: 168233 1 Tablet(s) PO QD 201808/07/2019 Inactive losartan 50 mg tablet RxNorm: 368826 1 Tablet(s) PO QD 04/26/2019 Inactive losartan 50 mg tablet RxNorm: 292876 1 Tablet(s) PO QD 04/20/201901/2019 Inactive pravastatin 40 mg tablet RxNorm: 971703 1 Tablet(s) PO QD 04/07/2019 06/05/2019 Inactive isosorbide mononitrate ER 30 mg tablet,extended release 24 h r RxNorm: 128638 1 Tablet(s) PO as needed 04/07/2019 04/06/2019 Inactive isosorbide mononitrate ER 30 mg tablet,extended release 24 h r RxNorm: 119873 1 TABLET(S) PO NEEDED 04/07/2019 06/26/2019 Inactive Patient requests 90 days supply losartan 50 mg tablet RxNorm: 800577 1 Tablet(s) PO QD 03/22/2019 Inactive Prolia subcutaneous RxNorm: 357666 subcutaneous 02/19/2021 A ctive carvedilol 25 mg tablet RxNorm: 758770 1 Tablet(s) PO BID 05/13/2019 05/12/2019 Inactive losartan 50 mg tablet RxNorm: 274226 1 Tablet(s) PO QD 03/22/2019 Inactive Ventolin HFA 90 mcg/actuation aerosol inhaler RxNorm: 641887 1-2 Puff(s) INH as needed 09/08/2019 09/07/2019 Inactive furosemide 40 mg tablet RxNorm: 097477 1 Tablet(s) PO QAM 06/21/2019 06/20/2019 Inactive pravastatin 40 mg tablet RxNorm: 232983 1 Tablet(s) PO QD 04/07/2019 04/06/2019 Inactive Coumadin 2 mg tablet RxNorm: 530556 1 Tablet(s) PO Mon, Fri, Sat and Sun then 2 tablets (4mg) on , Thu and 10/11/2019 10/10/2019 Inactive isosorbide mononitrate ER 30 mg tablet,extended release 24 h r RxNorm: 546963 Tablet(s) PO as needed 04/07/2019 04/06/2019 Inactive Women's Multivitamin 18 mg iron-400 mcg-500 mg tablet RxNorm : 1 Tablet(s) PO QD 09/08/2019 09/07/2019 Inactive Vitamin D3 1000 units Capsule RxNorm: 3 Capsule(s) PO QD 9 09/07/2019 Inactive vitamin B complex capsule RxNorm: 1 Capsule(s) PO QD 09/08/2019 Inactive potassium chloride ER 10 mEq capsule,extended release RxNorm : 361233 1 Capsule(s) PO QD 09/21/2019 09/20/2019 Inactive levothyroxine 50 mcg tablet RxNorm: 084344 1 Tablet(s) PO QD 201804/25/2019 Inactive Medication Administered No Medication Administered data Immunizations Vaccine Codes Date Status Influenza CVX: 135 08/23/2021 Complete Influenza CVX: 135 07/06/2020 Pneumovax CVX: 33 02/03/2020 Influenza CVX: 135 07/02/2019 Results Observation Observation Code Item Item Code Result Date S ervice Location PT 7157512 PT 28.3 Seconds 07/19/2021 Unknow n PT [id number] INR 2.6 07/19/2021 Unknown COMPREHENSIVE METABOLIC 90606 AST 20 U/L 2020 Unknown COMPREHENSIVE METABOLIC 11144 ALT 16 U/L 2020 Unknown COMPREHENSIVE METABOLIC 04759 BUN 35 mg/dL 2020 Unknown COMPREHENSIVE METABOLIC 13489 ALBUMIN 4.1 g/dL 2020 Unknown COMPREHENSIVE METABOLIC 28943 CHLORIDE 105 mmol/L 06/20 Unknown COMPREHENSIVE METABOLIC 42478 Bili Total 1.1 mg/dL 06/20 Unknown COMPREHENSIVE METABOLIC 10299 ALK PHOS 103 U/L 2020 Unknown COMPREHENSIVE METABOLIC 45480 SODIUM 139 mmol/L 06/20 Unknown COMPREHENSIVE METABOLIC 50057 CREATININE 0.99 mg/dL 05/24 Unknown COMPREHENSIVE METABOLIC 21855 CALCIUM 8.8 mg/dL 2020 Unknown COMPREHENSIVE METABOLIC 69218 POTASSIUM 4.7 mmol/L 06/20 Unknown COMPREHENSIVE METABOLIC 15068 Total Protein 6.2 g/dL Unknown COMPREHENSIVE METABOLIC 45396 Glucose 83 mg/dL 2020 Unknown COMPREHENSIVE METABOLIC 19790 Bicarbonate 27 mmol/L 05/24 Unknown COMPREHENSIVE METABOLIC 33103 AGAP 7 mmol/L 2020 Unknown COMPLETE BLOOD COUNT [id number] WBC 4.5 10e9/L 06/20/20 21 Unknown COMPLETE BLOOD COUNT 3573869 RBC 3.99 10e12/L 2020 Unknown COMPLETE BLOOD COUNT 8342597 HEMOGLOBIN 11.8 g/dL 06/20/20 21 Unknown COMPLETE BLOOD COUNT [id number] HEMATOCRIT 36.6 % 06/20/20 21 Unknown COMPLETE BLOOD COUNT [id number] MCV 91.7 fL 1 Unknown COMPLETE BLOOD COUNT [id number] MCH 29.6 pg 1 Unknown COMPLETE BLOOD COUNT 5476497 MCHC 32.2 g/dL 1 Unknown COMPLETE BLOOD COUNT [id number] PLATELET COUNT 180 10e9/L Unknown COMPLETE BLOOD COUNT 9440713 Mean Plt Volume 11.1 fL Unknown COMPLETE BLOOD COUNT 1449992 Neut Auto 64.7 % 1 Unknown COMPLETE BLOOD COUNT [id number] Lymph Auto 19.6 % 06/20/20 21 Unknown COMPLETE BLOOD COUNT 1608676 Charles Auto 13.5 % 1 Unknown COMPLETE BLOOD COUNT 0338529 RDW 15.1 % 1 Unknown COMPLETE BLOOD COUNT [id number] Eos Auto 1.8 % 1 Unknown COMPLETE BLOOD COUNT [id number] Baso Auto 0.4 % 1 Unknown COMPLETE BLOOD COUNT [id number] Neutrophil Abs 2.91 10e9/L Unknown COMPLETE BLOOD COUNT 1984128 Lymphocyte Abs 0.88 10e9/L Unknown COMPLETE BLOOD COUNT 7700637 Monocyte Abs 0.61 10e9/L 05/24 Unknown COMPLETE BLOOD COUNT [id number] Eosinophil Abs 0.08 10e9/L Unknown COMPLETE BLOOD COUNT 0565718 RDW-SD 49.5 fL 1 Unknown COMPLETE BLOOD COUNT [id number] Basophil Abs 0.02 10e9/L 05/24 Unknown GFR CALC [id number] GFR Non Afr Amr 53 mL/min 06/20/2021 Unk nown GFR CALC [id number] GFR Afr Amr >60 mL/min 06/20/2021 Unknow n PT [id number] PT 27.4 Seconds 06/20/2021 Unknow n PT [id number] INR 2.5 06/20/2021 Unknown PT [id number] PT 25.8 Seconds 05/21/2021 Unknow n PT [id number] INR 2.3 05/21/2021 Unknown FREE T4 90677 T4 Free 1.19 ng/dL 04/11/2021 Unknown PT [id number] PT 33.6 Seconds 04/11/2021 Unknow n PT [id number] INR 3.3 04/11/2021 Unknown THYROID STIMULATING HORMONE 52295 TSH 3.912 uIU/mL 04/11/2021 Unknown PT [id number] PT 33.1 Seconds 03/15/2021 Unknow n PT [id number] INR 3.2 03/15/2021 Unknown PT [id number] PT 24.6 Seconds 05/23/2020 Unknow n PT [id number] INR 2.2 05/23/2020 Unknown PT [id number] PT 31.4 Seconds 10/26/2019 Unknow n PT [id number] INR 2.9 10/26/2019 Unknown PT [id number] PT 17.6 Seconds 10/11/2019 Unknow n PT [id number] INR 1.4 10/11/2019 Unknown PT [id number] PT 23.7 Seconds 09/08/2019 Unknow n PT [id number] INR 2.0 09/08/2019 Unknown PT [id number] PT 23.2 Seconds 07/29/2019 Unknow n PT [id number] INR 2.0 07/29/2019 Unknown PT [id number] PT 14.3 Seconds 07/18/2019 Unknow n PT [id number] INR 1.1 07/18/2019 [place] [address] Glucose 75 mg/dL 07/06 [place] [address] CREATININE 0.61 mg/dL [place] [address] BUN 15 mg/dL 07/06 [place] [address] SODIUM 142 mmol/L 06/23 [place] [address] POTASSIUM 4.0 mmol/L 06/23 [place] [address] CHLORIDE 106 mmol/L 06/23 [place] [address] Bicarbonate 28 mmol/[place] [address] AGAP 8 mmol/L 07/06 [place] [address] CALCIUM 9.3 mg/dL 07/06 Unknown PT [id number] PT 17.4 Seconds 07/06/2019 Unknow n PT [id number] INR 1.4 07/06/2019 Unknown GFR CALC [id number] GFR Non Afr Amr >60 mL/min 07/06/2019 Un known GFR CALC [id number] GFR Afr Amr >60 mL/min 07/06/2019 Unknow n COMPLETE BLOOD COUNT 6350044 WBC 4.7 10e9/L 07/06/20 19 Unknown COMPLETE BLOOD COUNT [id number] RBC 4.19 10e12/L 2018 Unknown COMPLETE BLOOD COUNT 2511794 HEMOGLOBIN 12.6 g/dL 07/06/20 19 Unknown COMPLETE BLOOD COUNT 5135632 HEMATOCRIT 39.4 % 07/06/20 19 Unknown COMPLETE BLOOD COUNT 5000584 MCV 94.0 fL 9 Unknown COMPLETE BLOOD COUNT 4007252 MCH 30.1 pg 9 Unknown COMPLETE BLOOD COUNT 9894989 MCHC 32.0 g/dL 9 Unknown COMPLETE BLOOD COUNT 1723229 PLATELET COUNT 160 10e9/L Unknown COMPLETE BLOOD COUNT 0434606 Mean Plt Volume 11.0 fL Unknown COMPLETE BLOOD COUNT 8983539 Neut Auto 56.6 % 9 Unknown COMPLETE BLOOD COUNT 1151160 Lymph Auto 27.0 % 07/06/20 19 Unknown COMPLETE BLOOD COUNT 5958616 Charles Auto 13.7 % 9 Unknown COMPLETE BLOOD COUNT 6006080 RDW 14.6 % 9 Unknown COMPLETE BLOOD COUNT 3812452 Eos Auto 2.1 % 9 Unknown COMPLETE BLOOD COUNT 5814846 Baso Auto 0.6 % 9 Unknown COMPLETE BLOOD COUNT 4426889 Neutrophil Abs 2.66 10e9/L Unknown COMPLETE BLOOD COUNT 1862731 Lymphocyte Abs 1.27 10e9/L Unknown COMPLETE BLOOD COUNT 3726869 Monocyte Abs 0.64 10e9/L 06/23 Unknown COMPLETE BLOOD COUNT 3944019 Eosinophil Abs 0.10 10e9/L Unknown COMPLETE BLOOD COUNT 2908574 RDW-SD 48.7 fL 9 Unknown COMPLETE BLOOD COUNT 1621574 Basophil Abs 0.03 10e9/L 06/23 Unknown COMPLETE BLOOD COUNT 5539616 WBC 4.6 10e9/L 06/14/20 19 Unknown COMPLETE BLOOD COUNT [id number] RBC 4.16 10e12/L 2018 Unknown COMPLETE BLOOD COUNT [id number] HEMOGLOBIN 12.6 g/dL 06/14/20 19 Unknown COMPLETE BLOOD COUNT [id number] HEMATOCRIT 39.1 % 06/14/20 19 Unknown COMPLETE BLOOD COUNT 3077142 MCV 94.0 fL 9 Unknown COMPLETE BLOOD COUNT 1104004 MCH 30.3 pg 9 Unknown COMPLETE BLOOD COUNT 0638817 MCHC 32.2 g/dL 9 Unknown COMPLETE BLOOD COUNT 6322773 PLATELET COUNT 167 10e9/L Unknown COMPLETE BLOOD COUNT 9912123 Mean Plt Volume 10.9 fL Unknown COMPLETE BLOOD COUNT 7102937 Neut Auto 59.6 % 9 Unknown COMPLETE BLOOD COUNT 7263832 Lymph Auto 24.1 % 06/14/20 19 Unknown COMPLETE BLOOD COUNT 1837614 Charles Auto 14.0 % 9 Unknown COMPLETE BLOOD COUNT 4414956 RDW 14.8 % 9 Unknown COMPLETE BLOOD COUNT 7156490 Eos Auto 1.9 % 9 Unknown COMPLETE BLOOD COUNT 0455224 Baso Auto 0.4 % 9 Unknown COMPLETE BLOOD COUNT 3432036 Neutrophil Abs 2.74 10e9/L Unknown COMPLETE BLOOD COUNT 5463307 Lymphocyte Abs 1.11 10e9/L Unknown COMPLETE BLOOD COUNT 0888660 Monocyte Abs 0.64 10e9/L 05/24 Unknown COMPLETE BLOOD COUNT 3614151 Eosinophil Abs 0.09 10e9/L Unknown COMPLETE BLOOD COUNT 2792483 RDW-SD 49.3 fL 9 Unknown COMPLETE BLOOD COUNT 9843889 Basophil Abs 0.02 10e9/L 05/24 Unknown PT [id number] PT 22.3 Seconds 06/14/2019 Unknow n PT [id number] INR 1.9 06/14/2019 Unknown COMPLETE BLOOD COUNT [id number] WBC 4.0 10e9/L 05/13/20 19 Unknown COMPLETE BLOOD COUNT [id number] RBC 3.82 10e12/L 2018 Unknown COMPLETE BLOOD COUNT 9333861 HEMOGLOBIN 11.5 g/dL 05/13/20 19 Unknown COMPLETE BLOOD COUNT [id number] HEMATOCRIT 36.4 % 05/13/20 19 Unknown COMPLETE BLOOD COUNT 2195902 MCV 95.3 fL 9 Unknown COMPLETE BLOOD COUNT 7343343 MCH 30.1 pg 9 Unknown COMPLETE BLOOD COUNT 6316194 MCHC 31.6 g/dL 9 Unknown COMPLETE BLOOD COUNT 6344188 PLATELET COUNT 175 10e9/L Unknown COMPLETE BLOOD COUNT 0637847 Mean Plt Volume 10.5 fL Unknown COMPLETE BLOOD COUNT 9185830 Neut Auto 63.2 % 9 Unknown COMPLETE BLOOD COUNT 4775861 Lymph Auto 22.0 % 05/13/20 19 Unknown COMPLETE BLOOD COUNT 0653769 Charles Auto 12.1 % 9 Unknown COMPLETE BLOOD COUNT 6985308 RDW 14.9 % 9 Unknown COMPLETE BLOOD COUNT 6472567 Eos Auto 2.2 % 9 Unknown COMPLETE BLOOD COUNT 4003439 Baso Auto 0.5 % 9 Unknown COMPLETE BLOOD COUNT 3212140 Neutrophil Abs 2.53 10e9/L Unknown COMPLETE BLOOD COUNT 4674997 Lymphocyte Abs 0.88 10e9/L Unknown COMPLETE BLOOD COUNT 8458737 Monocyte Abs 0.48 10e9/L 04/24 Unknown COMPLETE BLOOD COUNT 1011630 Eosinophil Abs 0.09 10e9/L Unknown COMPLETE BLOOD COUNT 7893347 RDW-SD 49.6 fL 9 Unknown COMPLETE BLOOD COUNT [id number] Basophil Abs 0.02 10e9/L 04/24 Unknown COMPREHENSIVE METABOLIC 13097 AST 18 U/L 2018 Unknown COMPREHENSIVE METABOLIC 09019 ALT 14 U/L 2018 Unknown COMPREHENSIVE METABOLIC 30479 BUN 15 mg/dL 2018 Unknown COMPREHENSIVE METABOLIC 46861 ALBUMIN 4.0 g/dL 2018 Unknown COMPREHENSIVE METABOLIC 17406 CHLORIDE 108 mmol/L 05/13 Unknown COMPREHENSIVE METABOLIC 63157 Bili Total 0.9 mg/dL 05/13 Unknown COMPREHENSIVE METABOLIC 50178 ALK PHOS 84 U/L 2018 Unknown COMPREHENSIVE METABOLIC 10986 SODIUM 142 mmol/L 05/13 Unknown COMPREHENSIVE METABOLIC 91878 CREATININE 0.72 mg/dL 04/24 Unknown COMPREHENSIVE METABOLIC 21832 CALCIUM 8.9 mg/dL 2018 Unknown COMPREHENSIVE METABOLIC 96026 POTASSIUM 4.0 mmol/L 05/13 Unknown COMPREHENSIVE METABOLIC 18262 Total Protein 5.5 g/dL Unknown COMPREHENSIVE METABOLIC 50613 Glucose 95 mg/dL 2018 Unknown COMPREHENSIVE METABOLIC 15952 Bicarbonate 27 mmol/L 04/24 Unknown COMPREHENSIVE METABOLIC 41891 AGAP 7 mmol/L 2018 Unknown GFR CALC [id number] GFR Non Afr Amr >60 mL/min 05/13/2019 Un known GFR CALC [id number] GFR Afr Amr >60 mL/min 05/13/2019 Unknow n THYROID STIMULATING HORMONE 33874 TSH 2.669 uIU/mL 05/13/2019 Unknown FREE T4 02404 T4 Free 1.19 ng/dL 05/13/2019 Unknown PT [id number] PT 24.2 Seconds 05/06/2019 Unknow n PT [id number] INR 2.1 05/06/2019 Unknown PT [id number] PT 24.1 Seconds 03/08/2019 Unknow n PT [id number] INR 2.9 03/08/2019 Unknown Procedures Procedure Codes Date FLU VACC PRSV FREE INC ANTIG 65 AND OLDER CPT-4: 27763 08/23/2021 ROUTINE VENIPUNCTURE CPT-4: 26551 08/23/2021 PROTHROMBIN TIME CPT-4: 55498 08/23/2021 FLU VACC PRSV FREE INC ANTIG 65 AND OLDER CPT-4: 41719 08/23/2021 ADMIN INFLUENZA VIRUS VAC CPT-4: G0008 08/23/2021 ROUTINE VENIPUNCTURE CPT-4: 43424 07/19/2021 PROTHROMBIN TIME CPT-4: 99388 07/19/2021 ROUTINE VENIPUNCTURE CPT-4: 42473 06/20/2021 COMPREHEN METABOLIC PANEL CPT-4: 03505 06/20/2021 COMPLETE CBC W/AUTO DIFF WBC CPT-4: 22928 06/20/2021 PROTHROMBIN TIME CPT-4: 02966 06/20/2021 PT CPT-4: 7996650 05/16/2021 ROUTINE VENIPUNCTURE CPT-4: 90644 05/16/2021 ROUTINE VENIPUNCTURE CPT-4: 68071 04/11/2021 PROTHROMBIN TIME CPT-4: 19851 04/11/2021 ASSAY OF FREE THYROXINE CPT-4: 74157 04/11/2021 ASSAY THYROID STIM HORMONE CPT-4: 15550 04/11/2021 ROUTINE VENIPUNCTURE CPT-4: 50546 03/15/2021 PT CPT-4: 5369231 03/15/2021 ROUTINE VENIPUNCTURE CPT-4: 31007 02/22/2021 COMPREHEN METABOLIC PANEL CPT-4: 55000 02/22/2021 ASSAY OF FREE THYROXINE CPT-4: 96324 02/22/2021 ASSAY THYROID STIM HORMONE CPT-4: 55365 02/22/2021 COMPLETE CBC W/AUTO DIFF WBC CPT-4: 53739 02/22/2021 PROTHROMBIN TIME CPT-4: 40756 02/22/2021 LIPID PANEL CPT-4: 44904 02/22/2021 PPPS, subseq visit CPT-4: G0439 09/26/2020 ROUTINE VENIPUNCTURE CPT-4: 14928 05/23/2020 PROTHROMBIN TIME CPT-4: 12616 05/23/2020 ROUTINE VENIPUNCTURE CPT-4: 42958 01/20/2020 PT CPT-4: 4311669 01/20/2020 ROUTINE VENIPUNCTURE CPT-4: 44783 12/15/2019 PROTHROMBIN TIME CPT-4: 14149 12/15/2019 ROUTINE VENIPUNCTURE CPT-4: 73555 11/10/2019 PROTHROMBIN TIME CPT-4: 27054 11/10/2019 PROTHROMBIN TIME CPT-4: 58103 10/26/2019 ROUTINE VENIPUNCTURE CPT-4: 98667 10/26/2019 ROUTINE VENIPUNCTURE CPT-4: 40045 10/11/2019 PT CPT-4: 8018785 10/11/2019 PPPS, initial visit CPT-4: G0438 09/20/2019 ROUTINE VENIPUNCTURE CPT-4: 27664 09/08/2019 PT CPT-4: 7853554 09/08/2019 THER/PROPH/DIAG INJ SC/IM CPT-4: 95837 09/08/2019 TRIAMCINOLONE ACET INJ NOS CPT-4: J3301 09/08/2019 ROUTINE VENIPUNCTURE CPT-4: 32778 07/29/2019 PT CPT-4: 2407100 07/29/2019 ROUTINE VENIPUNCTURE CPT-4: 54147 07/18/2019 PT CPT-4: 7734074 07/18/2019 METABOLIC PANEL TOTAL CA CPT-4: 54240 07/06/2019 COMPLETE CBC W/AUTO DIFF WBC CPT-4: 56702 07/06/2019 PROTHROMBIN TIME CPT-4: 23278 07/06/2019 ROUTINE VENIPUNCTURE CPT-4: 11301 06/14/2019 PROTHROMBIN TIME CPT-4: 28958 06/14/2019 COMPLETE CBC W/AUTO DIFF WBC CPT-4: 86526 06/14/2019 ROUTINE VENIPUNCTURE CPT-4: 30749 05/13/2019 COMPREHEN METABOLIC PANEL CPT-4: 21458 05/13/2019 COMPLETE CBC W/AUTO DIFF WBC CPT-4: 75366 05/13/2019 ASSAY THYROID STIM HORMONE CPT-4: 05284 05/13/2019 ASSAY OF FREE THYROXINE CPT-4: 52452 05/13/2019 PT CPT-4: 0028819 05/06/2019 ROUTINE VENIPUNCTURE CPT-4: 32793 05/06/2019 PT CPT-4: 1212921 04/07/2019 ROUTINE VENIPUNCTURE CPT-4: 26277 04/07/2019 ROUTINE VENIPUNCTURE CPT-4: 21730 03/08/2019 PROTHROMBIN TIME CPT-4: 41345 03/08/2019 Vital Signs Date Vital 08/20/2021 Blood Pressure 1: 127/69 Code: 8480-6 Heart Rate 1: 84 bpm Respiratory Rate: 17 bpm SpO2: 98% Temperature: 36.7 (C) / 98.1 (F) We ight: 208 lbs Code: 41314-9 05/16/2021 Blood Pressure 1: 136/64 Code: 8480-6 BMI: 37.0 Code: 36697-6 Heart Rate 1: 61 bpm Height: 5'3" Code: 8302-2 Respiratory Rate: 16 bpm SpO2: 98% Temperature: 36.2 (C) / 97.1 (F) Weight: 212 lbs Code: 28764-6 03/05/2021 Blood Pressure 1: 134/76 Code: 8480-6 Heart Rate 1: 66 bpm Respiratory Rate: 16 bpm SpO2: 100% Temperature: 37.1 (C) / 98.7 (F) We ight: 203 lbs Code: 37549-8 02/19/2021 Blood Pressure 1: 126/70 Code: 8480-6 BMI: 35.4 Code: 51093-7 Heart Rate 1: 72 bpm Height: 5'3" Code: 8302-2 Respiratory Rate: 16 bpm SpO2: 99% Temperature: 36.3 (C) / 97.3 (F) Weight: 203 lbs Code: 14431-1 01/16/2021 Blood Pressure 1: 112/74 Code: 8480-6 Heart Rate 1: 76 bpm Respiratory Rate: 20 bpm Temperature: 36.7 (C) / 98.0 (F) Weight: 205 lbs Code : 00691-4 11/19/2020 Blood Pressure 1: 120/78 Code: 8480-6 Heart Rate 1: 88 bpm Temperature: 36.6 (C) / 97.8 (F) 11/12/2020 Blood Pressure 1: 110/57 Code: 8480-6 Heart Rate 1: 68 bpm Respiratory Rate: 15 bpm SpO2: 100% Weight: 202 lbs Code: 84209 -7 10/12/2020 Blood Pressure 1: 114/70 Code: 8480-6 Heart Rate 1: 84 bpm Respiratory Rate: 18 bpm SpO2: 98% Temperature: 36.7 (C) / 98.0 (F) 09/26/2020 Blood Pressure 1: 120/72 Code: 8480-6 BMI: 35.2 Code: 65268-7 Heart Rate 1: 76 bpm Height: 5'3" Code: 8302-2 Respiratory Rate: 20 bpm SpO2: 97% Temperature: 36.7 (C) / 98.0 (F) Weight: 202 lbs Code: 00917-4 08/27/2020 Blood Pressure 1: 126/82 Code: 8480-6 Heart Rate 1: 80 bpm Respiratory Rate: 20 bpm Temperature: 36.2 (C) / 97.1 (F) Weight: 198 lbs Code : 44510-3 05/23/2020 Blood Pressure 1: 120/78 Code: 8480-6 Heart Rate 1: 68 bpm Respiratory Rate: 20 bpm SpO2: 97% Temperature: 36.4 (C) / 97.5 (F) We ight: 200 lbs Code: 60354-1 05/02/2020 Blood Pressure 1: 133/81 Code: 8480-6 Heart Rate 1: 74 bpm Weight: 202 lbs Code: 63435-7 12/15/2019 Blood Pressure 1: 126/82 Code: 8480-6 Heart Rate 1: 64 bpm Respiratory Rate: 20 bpm SpO2: 97% Temperature: 36.6 (C) / 97.8 (F) We ight: 201 lbs Code: 75654-4 11/03/2019 Blood Pressure 1: 142/82 Code: 8480-6 [...] / 98.1 (F) Weight: 204 lbs Code: 69051-5 09/20/2019 Blood Pressure 1: 122/68 Code: 8480-6 BMI: 35.0 Code: 81396-8 Heart Rate 1: 72 bpm Height: 5'3" Code: 8302-2 Respiratory Rate: 18 bpm SpO2: 95% Temperature: 36.8 (C) / 98.3 (F) Weight: 201 lbs Code: 05714-7 09/08/2019 Blood Pressure 1: 118/72 Code: 8480-6 Heart Rate 1: 82 bpm SpO2: 97% Temperature: 36.3 (C) / 97.4 (F) Weight: 208 lbs Code: 46958-1 06/14/2019 Blood Pressure 1: 128/84 Code: 8480-6 Heart Rate 1: 72 bpm Respiratory Rate: 20 bpm SpO2: 98% Temperature: 36.7 (C) / 98.1 (F) We ight: 209 lbs Code: 17943-0 05/13/2019 Blood Pressure 1: 144/90 Code: 8480-6 Heart Rate 1: 88 bpm Respiratory Rate: 24 bpm SpO2: 96% Temperature: 37.1 (C) / 98.8 (F) We ight: 210 lbs Code: 67861-1 05/02/2019 Blood Pressure 1: 128/80 Code: 8480-6 Heart Rate 1: 84 bpm Respiratory Rate: 20 bpm SpO2: 95% Temperature: 36.6 (C) / 97.9 (F) We ight: 209 lbs Code: 37198-9 03/22/2019 Blood Pressure 1: 122/70 Code: 8480-6 He art Rate 1: 85 bpm 03/08/2019 Blood Pressure 1: 114/78 Code: 8480-6 BMI: 36.1 Code: 81767-9 Heart Rate 1: 76 bpm Height: 5'3" Code: 8302-2 Respiratory Rate: 20 bpm SpO2: 97% Temperature: 37.1 (C) / 98.8 (F) Weight: 207 lbs Code: 25168-5 Functional Status No Functional Status data Reason [...] pressure check 03/22/2019 ~generic 03/08/2019 New Patient---[facility] visit Encounters Encounter Performer Location Codes Date ([id number]) NURSE/OUTPATIENT VISIT EST Diagnosis: Chronic atrial fibrillation[ICD10: I48.20] Diagnosis: Long-term (current) use of anticoagulants, INR goal 2.0-3.0[ICD10: Z79.01] Diagnosis: FLU VACCINE[ICD10: Z23] Jeanie ORTEZQUELINE David [employer] CPT-4: 11353 08/23/2021 ([id number]) OFFICE/OUTPATIENT VISIT EST Diagnosis: Breast pain, left[ICD10: N64.4] Diagnosis: Left breast lump[ICD10: N63.20] Remedios JENNINGSLINE OfeAxel [employer] CPT-4: 57868 08/20/2021 ([id number]) NURSE/OUTPATIENT VISIT EST Diagnosis: Long-term (current) use of anticoagulants, INR goal 2.0-3.0[ICD10: Z79.01] Jeanie CONNELL David [employer] CPT-4: 91199 07/19/2021 ([id number]) NURSE/OUTPATIENT VISIT EST Diagnosis: Essential (primary) hypertension[ICD10: I10] Diagnosis: Chronic atrial fibrillation[ICD10: I48.20] Diagnosis: Long-term (current) use of anticoagulants, INR goal 2.0-3.0[ICD10: Z79.01] Diagnosis: Anemia, unspecified[ICD10: D64.9] Jeanie Parra [employer] CPT-4: 57184 06/20/2021 ([id number]) OFFICE/OUTPATIENT VISIT EST Diagnosis: Long-term (current) use of anticoagulants, INR goal 2.0-3.0[ICD10: Z79.01] Diagnosis: Essential (primary) hypertension[ICD10: I10] Diagnosis: Chronic congestive heart failure with left ventricular diastolic dysfunction[ICD10: I50.32] Diagnosis: Severe obesity (BMI 35.0-39.9) with comorbidity[ICD10: E66.01] Diagnosis: Chronic atrial fibrillation[ICD10: I48.20] Diagnosis: Obstructive sleep apnea syndrome[ICD10: G47.33] Remedios BALCK [email or web address] [facility] CPT-4: 60095 05/16/2021 ([id number]) NURSE/OUTPATIENT VISIT EST Diagnosis: Hypothyroidism, unspecified[ICD10: E03.9] Diagnosis: Long-term (current) use of anticoagulants, INR goal 2.0-3.0[ICD10: Z79.01] Jeanie BLACK [facility] CPT-4: 91919 04/11/2021 ([id number]) NURSE/OUTPATIENT VISIT EST Diagnosis: Long-term (current) use of anticoagulants, INR goal 2.0-3.0[ICD10: Z79.01] Jeanie BLACK [facility] CPT-4: 69547 03/15/2021 ([id number]) OFFICE/OUTPATIENT VISIT EST Diagnosis: Essential hypertension[ICD10: I10] Diagnosis: Cheilitis[ICD10: K13.0] Diagnosis: Pulmonary hypertension[ICD10: I27.20] Jeanie ORTEZELVA AGUILERA David BLACK [email or web address] [facility] CPT-4: 64137 03/05/2021 ([id number]) NURSE/OUTPATIENT VISIT EST Diagnosis: Essential (primary) hypertension[ICD10: I10] Diagnosis: Hypothyroidism, unspecified[ICD10: E03.9] Diagnosis: Long-term (current) use of anticoagulants, INR goal 2.0-3.0[ICD10: Z79.01] Diagnosis: Mixed hyperlipidemia[ICD10: E78.2] Jeanie Avendañoalberta ANN MCKEE David BLACK [email or web address] [facility] CPT-4: 10582 02/22/2021 ([id number]) OFFICE/OUTPATIENT VISIT EST Diagnosis: Cheilitis[ICD10: K13.0] Diagnosis: Encounter for medication review and counseling[ICD10: Z71.89] Diagnosis: Long-term (current) use of anticoagulants, INR goal 2.0-3.0[ICD10: Z79.01] Diagnosis: Hypothyroidism, unspecified[ICD10: E03.9] Diagnosis: Mixed hyperlipidemia[ICD10: E78.2] Diagnosis: Severe obesity (BMI 35.0-39.9) with comorbidity[ICD10: E66.01] Diagnosis: Chronic congestive heart failure with left ventricular diastolic dysfunction[ICD10: I50.32] Remedios BLACK DO [facility] CPT- 4: 20295 02/19/2021 ([id number]) OFFICE/OUTPATIENT VISIT EST Diagnosis: Cheilitis[ICD10: K13.0] Jannette PINZON DO [facility] CPT-4: 99686 01/16/2021 ([id number]) OFFICE/OUTPATIENT VISIT EST Diagnosis: Hypotension[ICD10: I95.9] Diagnosis: Dizziness[ICD10: R42] Jannette BLACK DO C CPT-4: 02686 11/12/2020 ([id number]) OFFICE/OUTPATIENT VISIT EST Diagnosis: Thoracic back pain[ICD10: M54.6] Diagnosis: Dizziness[ICD10: R42] Jannette BLACK DO [facility] CPT-4: 84859 10/12/2020 ([id number]) OFFICE/OUTPATIENT VISIT EST Diagnosis: Chronic atrial fibrillation[ICD10: I48.20] Diagnosis: Chronic airway obstruction, not elsewhere classified[ICD10: J44.9] Diagnosis: Essential hypertension[ICD10: I10] Jeaniemari MCKEE David BLACK DO [facility] CPT-4: 52273 08/27/2020 ([id number]) OFFICE/OUTPATIENT VISIT EST Diagnosis: Essential (primary) hypertension[ICD10: I10] Diagnosis: Chronic atrial fibrillation[ICD10: I48.20] Diagnosis: COPD (chronic obstructive pulmonary disease)[ICD10: J44.9] Diagnosis: Dyspnea[ICD10: R06.00] Diagnosis: Left hip pain[ICD10: M25.552] Jeaniecristhian Black JEANIE David BLACK DO [facility] CPT-4: 36363 05/23/2020 ([id number]) NURSE/OUTPATIENT VISIT EST Diagnosis: Essential (primary) hypertension[ICD10: I10] Jeanie CONNELL OfeAxel VARUN MCCURDY [facility] CPT-4: 60984 05/02/2020 ([id number]) OFFICE/OUTPATIENT VISIT EST Diagnosis: COPD (chronic obstructive pulmonary disease)[ICD10: J44.9] Diagnosis: Chronic atrial fibrillation[ICD10: I48.20] Diagnosis: Essential hypertension[ICD10: I10] [facility] CPT-[facility]: 38720 03/20/2020 ([id number]) NURSE/OUTPATIENT VISIT EST Diagnosis: Long-term (current) use of anticoagulants, INR goal 2.0-3.0[ICD10: Z79.01] Jeanie Dykeshaydeealberta ThakurAxel VARUN [email or web address] [facility] CPT-4: 00107 01/20/2020 ([id number]) OFFICE/OUTPATIENT VISIT EST Diagnosis: COPD (chronic obstructive pulmonary disease)[ICD10: J44.9] Diagnosis: Long-term (current) use of anticoagulants, INR goal 2.0-3.0[ICD10: Z79.01] Diagnosis: History of recent fall[ICD10: Z91.81] Jeanie Donisanirudh WALTON ALE OfeAxel DONISHAYDEEALBERTA [email or web address] [facility] CPT-4: 26056 12/15/2019 ([id number]) NURSE/OUTPATIENT VISIT EST Diagnosis: Long-term (current) use of anticoagulants, INR goal 2.0-3.0[ICD10: Z79.01] Jeanie Avendañoalberta JEANIE ThakurAxel VARUN [email or web address] [facility] CPT-4: 09367 11/10/2019 ([id number]) OFFICE/OUTPATIENT VISIT EST Diagnosis: Post concussion syndrome[ICD10: F07.81] Diagnosis: Head contusion[ICD10: S00.93XA] Diagnosis: Chronic airway obstruction, not elsewhere classified[ICD10: J44.9] Jeanie Dykesanirudh ORTEZJEANIE SAxel VARUN [email or web address] [facility] CPT-4: 32140 11/03/2019 ([id number]) OFFICE/OUTPATIENT VISIT EST Diagnosis: Fall as cause of accidental injury at home as place of occurrence[ICD10: W19.XXXA] Diagnosis: Headache[ICD10: R51] Diagnosis: Essential (primary) hypertension[ICD10: I10] Diagnosis: Long-term (current) use of anticoagulants, INR goal 2.0-3.0[ICD10: Z79.01] Diagnosis: Ecchymosis of left eye[ICD10: S05.12XA] Jannettevalentina BLACK DO [facility] CPT-4: 81105 10/31/2019 ([id number]) NURSE/OUTPATIENT VISIT EST Diagnosis: Long-term (current) use of anticoagulants, INR goal 2.0-3.0[ICD10: Z79.01] Jeanie JENNINGSLINE David BLACK DO [facility] CPT-4: 42218 10/26/2019 ([id number]) OFFICE/OUTPATIENT VISIT EST Diagnosis: Long-term (current) use of anticoagulants, INR goal 2.0-3.0[ICD10: Z79.01] Diagnosis: Pain in right arm[ICD10: M79.601] Diagnosis: Radiculopathy of arm[ICD10: M54.10] Jannette BLACK DO [facility] CPT-4: 33522 10/11/2019 ([id number]) OFFICE/OUTPATIENT VISIT EST Diagnosis: Long-term (current) use of anticoagulants, INR goal 2.0-3.0[ICD10: Z79.01] Diagnosis: Sinusitis[ICD10: J32.9] Diagnosis: Pain in right arm[ICD10: M79.601] Jannette BLACK DO [employer] CPT-4: 38468 09/08/2019 ([id number]) NURSE/OUTPATIENT VISIT EST Diagnosis: Chronic atrial fibrillation[ICD10: I48.2] Diagnosis: Encounter for therapeutic drug level monitoring[ICD10: Z51.81] Jeanie Donisanirudh JEANIE OfeAxel VARUN MCCURDY [facility] CPT-4: 93561 07/29/2019 ([id number]) NURSE/OUTPATIENT VISIT EST Diagnosis: Chronic atrial fibrillation[ICD10: I48.2] Diagnosis: Encounter for therapeutic drug level monitoring[ICD10: Z51.81] Jeanie Donisanirudh JEANIE OfeAxel VARUN MCCURDY [facility] CPT-4: 31587 07/18/2019 ([id number]) NURSE/OUTPATIENT VISIT EST Diagnosis: Encounter for therapeutic drug level monitoring[ICD10: Z51.81] Diagnosis: Chronic atrial fibrillation[ICD10: I48.2] Diagnosis: Essential (primary) hypertension[ICD10: I10] Jeanie ORTEZQUELINE OfeAxel VARUN MCCURDY [facility] CPT-4: 36157 07/06/2019 ([id number]) OFFICE/OUTPATIENT VISIT EST Diagnosis: Encounter for therapeutic drug level monitoring[ICD10: Z51.81] Diagnosis: Anemia, unspecified[ICD10: D64.9] Diagnosis: Bitten by dog, sequela[ICD10: W54.0XXS] 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] Jeanie BLACK Melinta CPT-4: 92805 06/14/2019 ([id number]) OFFICE/OUTPATIENT VISIT EST Diagnosis: Bitten by dog, sequela[ICD10: W54.0XXS] Diagnosis: Other fatigue[ICD10: R53.83] Diagnosis: Hypothyroidism, unspecified[ICD10: E03.9] Diagnosis: Muscle weakness (generalized)[ICD10: M62.81] Diagnosis: Generalized anxiety disorder[ICD10: F41.1] Jannette BLACK [employer] CPT-4: 64382 05/13/2019 ([id number]) NURSE/OUTPATIENT VISIT EST Diagnosis: Encounter for therapeutic drug level monitoring[ICD10: Z51.81] Jeanie BLACK [employer] CPT-4: 76441 05/06/2019 ([id number]) OFFICE/OUTPATIENT VISIT EST Diagnosis: Bitten by dog, sequela[ICD10: W54.0XXS] Diagnosis: Pain in right wrist[ICD10: M25.531] Diagnosis: Abrasion of right upper arm, sequela[ICD10: S40.811S] Diagnosis: Abrasion of left upper arm, sequela[ICD10: S40.812S] Jannette BLACK [facility] CPT-4: 00852 05/02/2019 ([id number]) NURSE/OUTPATIENT VISIT EST Diagnosis: Encounter for therapeutic drug level monitoring[ICD10: Z51.81] Jeanie BLACK [facility] CPT-4: 79742 04/07/2019 ([id number]) OFFICE/OUTPATIENT VISIT NEW Diagnosis: Encounter for therapeutic drug level monitoring[ICD10: Z51.81] Diagnosis: Chronic atrial fibrillation[ICD10: I48.2] Diagnosis: Essential (primary) hypertension[ICD10: I10] Diagnosis: Abnormal findings on diagnostic imaging of heart and coronary circulation[ICD10: R93.1] Diagnosis: Other forms of dyspnea[ICD10: R06.09] Diagnosis: Hypothyroidism, unspecified[ICD10: E03.9] Diagnosis: Mixed hyperlipidemia[ICD10: E78.2] Jeanie BLACK DO [facility] CPT-4: 37198 03/08/2019 Plan of Care Planned Activity Notes Codes Status Date Visit Plan: 08/20/2021 Visit Diagnosis Plan: Left breast lump Discussion: [place] get US of left breast and soft tissue under breast and f/u with results. F/U for sooner for concerns. ICD-9 : 611.72 ICD-10 : N63.20 08/20/2021 Appointment: Jeanie Black WPtel: [address] [place] [address] US CANCELED 08/20/2021 Appointment: Remedios Cavazos WPtel: [phone] ACUTE ILLNESS 08/20/2021 Patient Education: Patient Medication Summary Completed 08/20/2021 Appointment: Jeanie Black WPtel: [address] [place] [address] US see note in chart from 08/08/21 (km) CANCELED 08/08/2021 Appointment: Jeanie Black WPtel: [address] [place] [address] US LAB 07/19/2021 Appointment: Jeanie Black WPtel: [address] [place] [address] US LAB 06/20/2021 Visit Diagnosis Plan: Severe obesity (BMI 35.0-39.9) w ith comorbidity Discussion: Discussed diet and exercise ICD-9 : 278.01 ICD-10 : E66.01 05/16/2021 Visit Diagnosis Plan: Obstructive sleep apnea syndrome Discussion: Per pulm note- order for bipap sent to [facility]- will call them to [...] 05/16/2021 Appointment: Remedios Cav[facility]os [facility] [phone] [facility] [facility] MEDICATION REVIEW 05/16/2021 Patient Education: Patient Medication Summary Completed 05/16/2021 Patient Education: isosorbide mononitrate- [employer] Coupon [id number] https://www.Going.[employer]/samplemd/resources/getResource/61/b3v9z2r5-i798-556l-u3 Completed 05/16/2021 Patient Education: High Blood Pressure Co mpleted 05/16/2021 Appointment: Jeanie Black WPtel: [address] [place], [place] [id number] US LAB 04/11/2021 Appointment: Jeanie Black WPtel: [address] [place] [id number] [place] CANCELED 03/27/2021 Appointment: Jeanie Black WPtel: [address] [place], [place] [id number] US LAB 03/15/2021 Visit Diagnosis Plan: Pulmonary [...] I10 03/05/2021 Appointment: [facility] [phone] [facility] [facility] 03/05/2021 Patient Education: spironolactone- [employer] Coupon 1 [id number] https://www.[employer]/Going/resources/getResource/61/6qg91ri1-0k1w-9w23-8l Completed 03/05/2021 Appointment: Jeanie Black WPtel[facility] [phone] [facility] [facility] 02/22/2021 Visit Diagnosis Plan: Cheilitis [...] E78.2 02/19/2021 Appointment: Remedios Cavazos WPtel: [phone] MEDICATION REVIEW 02/19/2021 Patient Education: Patient [...] ICD-10 : K13.0 01/16/2021 Appointment: Jannette Mayen [address] [place] [address] ACUTE ILLNESS 01/16/2021 Appointment: Jeanie Black WPtel: [phone] [place] [id number] US BP CHECK 11/19/2020 Visit Diagnosis Plan: [...] ICD-10 : I95.9 11/12/2020 Appointment: Jannette Mayen [address] [place] [address] ACUTE ILLNESS 11/12/2020 Visit Diagnosis Plan: Thoracic [...] ICD-10 : R42 10/12/2020 Appointment: Jannette Mayen [address] [place] [address] ACUTE ILLNESS 10/12/2020 Visit Diagnosis Plan: Chronic atrial fibrillation Disc ussion: Following routinely with cardiology ICD-9 : 427.31 ICD-10 : I48.20 09/26/2020 Visit Diagnosis Plan: Essential (primary) hypertension Discussion: Stable ICD-9 : 401.9 ICD-10 : I10 09/26/2020 Visit Diagnosis Plan: Encounter for [facility] adult medical examination without abnormal findings Discussion: [...] : I50.32 09/26/2020 Appointment: Jeanie Black WPtel: [address] [place], [place] [id number] US Annual Well Visit 09/26/2020 Care Plan: Referral Order SNOMED-CT : [id number] Pending 09/26/2020 Visit Diagnosis Plan: Chronic airway [...] : I48.20 08/27/2020 Appointment: Jeanie Black WPtel: [address] [place], [place] [id number] US FOLLOW UP 08/27/2020 Visit Diagnosis Plan: [...] : I10 05/23/2020 Appointment: Jeanie Black WPtel: [address] [place] [address] US FOLLOW UP 05/23/2020 Appointment: Jeanie Black WPtel: [address] [place], [place] [phone] NURSE SERVICES 05/02/2020 Visit Diagnosis Plan: Chronic [...] : J44.9 03/20/2020 Appointment: Jeanie Black WPtel: [address] [place], [place] [phone] TELEMEDICINE 03/20/2020 Patient Education: Coumadin- [employer] Coupon [id number] https://www.[employer]/Going/resources/getResource/61/3l847m05-08o3-4dpr-4s Completed 03/20/2020 Patient Education: Coumadin- [employer] Coupon [id number] https://www.[employer]/Going/resources/getResource/61/4rp26q1n-1i1u-5mx1-am Completed 03/20/2020 Appointment: Jeanie Black WPtel: [address] [place], [place] [phone] LAB 01/20/2020 Visit Diagnosis Plan: History of recent fall Discussio n: Healing well Doing balance class at [facility] Follow Up: 3 months ICD-9 : V15.88 ICD-10 : Z91.81 12/15/2019 Visit Diagnosis Plan: COPD (chronic obstructive pulmon valeria disease) Discussion: Continue pulmonary rehab ICD-9 : 496 ICD-10 : J44.9 12/15/2019 Visit Diagnosis Plan: Long-term (current ) use of anticoagulants, INR goal 2.0-3.0 Discussion: PT/INR drawn ICD-9 : V58.61 ICD-10 : Z79.01 12/15/2019 Appointment: Jeanie Black WPtel[facility] [phone] [facility] [facility] FOLLOW [facility] 12/15/2019 Patient Education: Coumadin- [employer] Coupon [id number] https://www.Going.[employer]/Going/resources/getResource/61/g545oqso-rc49-0jad-4r Completed 12/15/2019 Appointment: Jeanie Black WPtel: [address] [place], [place] [phone] US LAB 11/10/2019 Visit Diagnosis Plan: Post [...] : J44.9 11/03/2019 Appointment: Jeanie Black WPtel: [facility] FO[facility] 11/03/2019 Care Plan: [facility] Pending 11/01/2019 Visit Diagnosis Plan: Essential (primary) [...] : S05.12XA 10/31/2019 Appointment: Jannette Mayen [address] [place] [address] Hospital Follow Up 10/31/2019 Patient Education: High Blood Pressure Co mpleted 10/31/2019 Patient Education: losartan- [employer] Coupon [id number] https://www.Going.[employer]/samplemd/resources/getResource/61/9l474247-3k76-4188-8z Completed 10/31/2019 Appointment: Jeanie Black WPtel: [phone] [facility] FOLLOW UP 10/26/2019 Visit Diagnosis Plan: Long-term (current ) use of anticoagulants, INR goal 2.0-3.0 Discussion: will update pt/inr ICD-9 : V58.61 ICD-10 : Z79.01 10/11/2019 Visit Diagnosis Plan: Radiculopathy of arm Discussion: flexeril prescribed to take as needed. will start at low dose but instructed patient to call office if not effective and will increase mg dose. PT ordered [facility] to assist with pain. if no improvement or worsening from PT, will need imaging. ICD-9 : 723.4 ICD-10 : M54.10 10/11/2019 Appointment: Jannette Mayen [address] [place] [address] ACUTE ILLNESS 10/11/2019 Patient Education: cyclobenzaprine- [employer] Coupon [id number] https://www.Going.com/samplemd/resources/getResource/61/33q2g5e6-85p3-1p12-59 Completed 10/11/2019 Visit Diagnosis Plan: Bitten by dog, sequela Discusslexus n: Still seeing counselor Still doing therapy--left 4th finger still not agile enough to play violin and feels like pinched nerve in neck on right--dscussed stretches, massage, accupuncture---patient had hired title assistant ICD-9 : 906.1 ICD-10 : W54.0XXS 09/20/2019 [...] : E78.2 09/20/2019 Appointment: Jeanie Black WPtel: [address] [place] [address] Annual Well Visit 09/20/2019 Visit Diagnosis Plan: [...] ICD-10 : Z79.01 09/08/2019 Appointment: Jannette Mayen [address] [place] [address] ACUTE ILLNESS 09/08/2019 Appointment: Jeanie Black WPtel: [address] [place] [address] US CANCELED 08/16/2019 Appointment: Jeanie Black WPtel: [address] [place], [place] [id number] US LAB 07/29/2019 [facility]ment[facility] [address] [id number] [facility] 07/18/2019 Appointment: [facility] [address] [id number] [facility] 07/06/2019 Visit Diagnosis Plan: Bitten [...] D64.9 06/14/2019 Appointment: [facility] [address] [facility] US FOLLOW UP 06/14/2019 Visit Diagnosis Plan: [...] ago. will refer to [facility] as well to [...] : R53.83 05/13/2019 [facility] [address] [facility] FOLLOW UP 05/13/2019 Patient Education: carvedilol- [employer] Coupon [id number] [email or web address] Completed 05/13/2019 Patient Education: Xanax- OptimizeRX Coupon [id number] [email or web address] Completed 05/13/2019 Appointment: Jean[facility] [phone] [id number] [facility] 05/06/2019 Visit Diagnosis Plan: [...] will send results to dr. portillo at [facility]. ICD-9 : 719.43 ICD-10 : M25.531 05/02/2019 Appointment: Jannette Mayen [address] ACUTE ILLNESS 05/02/2019 Care Plan: X-RAY EXAM OF WRIST right LOINC : [id number] Pending 05/02/2019 Appointment: Jeanie Black WPtel: [address] [place] [address] US LAB 04/07/2019 Appointment: Jeanie Black WPtel: [address] [place] [address] US BP CHECK 03/22/2019 Visit Diagnosis Plan: [...] Appointment: Jeanie Black WPtel: [id number] US NEW PATIENT 03/08/2019 Referral: Shona Viera WPtel: [facility] [address] [id number] Referral Appointment Requested Instructions No Instructions Medical Equipment No Medical Equipment data Health Concerns Section Health Concerns data not found Goals Section Goals data not found Interventions Section Interventions data not found Health Status Evaluations/Outcomes Section Health Status Evaluations/Outcomes data not found Advance Directives No Advance Directive data
--- OUTSIDE RECORDS SUMMARY | 2021-09-19 12:40 | XMS REPORT | CCD ---
Author Author Tricia Black D.O. Organization [facility] [place] Address [address] [place] [address] Phone Care Team Providers Care Superintendent [employer] Name Role Phone PP Unavailable CCM Unavailable Summary Purpose Interface Exchange Insurance Providers Payer name Policy type / Coverage type Covered democrat ID Effective Begin Date Effective End Date WPS MEDICARE PART B [place] Medicare Part B [id number] Unknown Unknown AARP Medicare Part B [id number] Unknown Unknown Family history Grandmother Diagnosis Age [...] Unknown Retired 03/08/[address]: 832134441 Has never smoked or chewed tobacco 03/08/[address]: 719638 Currently drinks alcohol 03/08 Has the patient [...] Instructions isosorbide mononitrate 10 mg tablet RxNorm: 593502 Take 1 Tablet(s) Oral two times a day 08/08/2021 No Stop Date Active losartan 100 mg tablet RxNorm: 109822 Take 1 Tablet(s) Oral QD 07/2411/02/2021 Active amoxicillin 500 mg capsule RxNorm: 337045 4 Capsule(s) Oral QD 1hr prior to dental cleaning 08/05/2021 08/05/2021 Inactive levothyroxine 50 mcg tablet RxNorm: 281274 TAKE 1 TABLE T BY MOUTH EVERY DAY. RECHECK LABS IN 2 MONTHS 08/04/2021 10/02/2021 Active potassium chloride ER 10 mEq tablet,extended release RxNorm: 298430 TAKE 1 TABLET BY MOUTH EVERY DAY 07/14/2021 10/11/2021 Active spironolactone 25 mg tablet RxNorm: 767353 1/2 Tablet(s) Oral QD No Stop Date Active isosorbide mononitrate 10 mg tablet RxNorm: 010241 Take 1 Tablet(s) Oral two times a day 05/16/2021 05/16/2021 Inactive isosorbide mononitrate ER 30 mg tablet,extended release 24 h r RxNorm: 212807 TABLET(S) 1 TABLET(S) PO NEEDED Tablet(s) Oral 05/16/2021 08/07/2021 Inactive Patient requests 90 days supply furosemide 40 mg tablet RxNorm: 684404 TAKE 1 TABLET BY MOUTH E VERY MORNING 05/07/2021 08/04/2021 Inactive isosorbide mononitrate 10 mg tablet RxNorm: 254300 Take 1 Tablet(s) Oral two times a day 04/26/2021 05/15/2021 Inactive isosorbide mononitrate 10 mg tablet RxNorm: 811858 Take 1 Tablet(s) Oral two times a day 04/25/2021 04/25/2021 Inactive potassium chloride ER 10 mEq tablet,extended release RxNorm: 144970 TAKE 1 TABLET BY MOUTH EVERY DAY 04/19/2021 04/19/2021 Inactive Coumadin 4 mg tablet RxNorm: 964890 1 Tablet(s) Oral Thursday04/11/2021 07/10/2021 Inactive Coumadin 2 mg tablet RxNorm: 788692 1 Tablet(s) Oral on Thursday and Thursday04/11/2021 07/10/2021 Inactive carvedilol 25 mg tablet RxNorm: 974464 1 Tablet(s) Oral two antolin es a day 04/03/2021 09/29/2021 Active Coumadin 2 mg tablet RxNorm: 702057 TAKE 1 TABLET BY [facility] ON THURSDAY AND Thursday03/26/2021 04/10/2021 Inactive Coumadin 4 mg tablet RxNorm: 510162 1 Tablet(s) Oral QD 02/26/2021 Inactive levothyroxine 50 mcg tablet RxNorm: 538870 1 Tablet(s) Oral QD Recheck labs in 2 months 02/26/2021 02/26/2021 Inactive Recheck labs in 2 months levothyroxine 50 mcg tablet RxNorm: 356008 1 Tablet(s) Oral QD Recheck labs in 2 months 02/26/2021 02/25/2021 Inactive Recheck labs in 2 months losartan 100 mg tablet RxNorm: 675527 TAKE 1 TABLET BY MOUTH 02/22/2021 08/20/2021 Inactive spironolactone 25 mg tablet RxNorm: 513938 1 Tablet(s) Oral QD 01/2303/04/2021 Inactive isosorbide mononitrate 10 mg tablet RxNorm: 573668 1 Ta blet(s) Oral two times a day 02/19/2021 02/25/2021 Inactive famotidine 20 mg tablet RxNorm: 469230 1 Tablet(s) Oral QD 02/20/2003/04/2021 Inactive levothyroxine 25 mcg tablet RxNorm: 828939 1 Tablet(s) Oral QD 07/20212021 Inactive atorvastatin 40 mg tablet RxNorm: 718759 1 Tablet(s) Or al QPM replaces pravastatin 01/29/2021 07/27/2021 Inactive furosemide 40 mg tablet RxNorm: 314461 TAKE 1 TABLET BY MOUTH E VERY MORNING 01/28/2021 01/28/2021 Inactive prednisone 10 mg tablet RxNorm: 782872 1 Tablet(s) Oral two antolin es a day 01/16/2021 01/19/2021 Inactive atorvastatin 40 mg tablet RxNorm: 869441 1 Tablet(s) Or al QPM replaces pravastatin 12/31/2020 01/28/2021 Inactive carvedilol 25 mg tablet RxNorm: 824101 TAKE 1 TABLET BY MOUTH T WICE DAILY 12/31/2020 04/02/2021 Inactive potassium chloride ER 10 mEq tablet,extended release RxNorm: 348559 TAKE 1 TABLET BY MOUTH EVERY DAY 12/31/2020 12/31/2020 Inactive losartan 100 mg tablet RxNorm: 469359 1 Tablet(s) Oral QD 12/03/2020 02/21/2021 Inactive Coumadin 4 mg tablet RxNorm: 570759 TAKE 1 TABLET BY [facility] THURSDAY THROUGH Thursday11/30/2020 02/25/2021 Inactive levothyroxine 25 mcg tablet RxNorm: 793616 1 Tablet(s) Oral QD 10/2401/28/2021 Inactive famotidine 20 mg tablet RxNorm: 337648 1 Tablet(s) Oral QD 11/19/20 20 01/15/2021 Inactive famotidine 20 mg tablet RxNorm: 196718 1 Tablet(s) Oral QD 11/19/20 20 11/18/2020 Inactive levothyroxine 50 mcg tablet RxNorm: 584867 TAKE 1 TABLET BY ENE EVERY DAY 11/06/2020 01/29/2021 Inactive furosemide 40 mg tablet RxNorm: 870569 TAKE 1 TABLET BY MOUTH E VERY MORNING 11/05/2020 01/27/2021 Inactive atorvastatin 40 mg tablet RxNorm: 691690 1 Tablet(s) Or al QPM replaces pravastatin 10/22/2020 12/30/2020 Inactive atorvastatin 40 mg tablet RxNorm: 547333 1 Tablet(s) Or al QPM replaces pravastatin 10/22/2020 10/21/2020 Inactive spironolactone 25 mg tablet RxNorm: 621660 1 Tablet(s) Oral QAM 01/15/2021 Inactive carvedilol 25 mg tablet RxNorm: 541704 TAKE 1 TABLET BY MOUTH T WICE DAILY 10/04/2020 12/30/2020 Inactive pravastatin 40 mg tablet RxNorm: 352840 TAKE 1 TABLET BY MOUTH EVERY DAY 10/04/2020 12/31/2020 Inactive potassium chloride ER 10 mEq tablet,extended release RxNorm: 167095 TAKE 1 TABLET BY MOUTH EVERY DAY 10/04/2020 12/30/2020 Inactive isosorbide mononitrate ER 30 mg tablet,extended release 24 h r RxNorm: 285356 TABLET(S) 1 TABLET(S) PO NEEDED Oral 10/04/2020 02/18/2021 Inactive Patient requests 90 days supply furosemide 40 mg tablet RxNorm: 558811 TAKE 1 TABLET BY MOUTH E VERY MORNING 10/01/2020 11/04/2020 Inactive losartan 100 mg tablet RxNorm: 573674 TAKE 1 TABLET BY MOUTH EV 09/19/2020 12/02/2020 Inactive amlodipine 5 mg tablet RxNorm: 006309 1 Tablet(s) Oral QD 08/27/2020 11/11/2020 Inactive spironolactone 25 mg tablet RxNorm: 406486 1 Tablet(s) Oral QAM 03/202010/21/2020 Inactive levothyroxine 50 mcg tablet RxNorm: 625113 TAKE 1 TABLET BY ENE TH EVERY DAY 08/07/2020 11/04/2020 Inactive levothyroxine 50 mcg tablet RxNorm: 867684 TAKE 1 TABLET BY ENE TH EVERY DAY 08/06/2020 08/06/2020 Inactive amoxicillin 500 mg capsule RxNorm: 311317 4 Capsule(s) Oral QD 1hr prior to dental cleaning 07/31/2020 07/30/2020 Inactive amoxicillin 500 mg capsule RxNorm: 218613 4 Capsule(s) Oral QD 1hr prior to dental cleaning 07/31/2020 07/31/2020 Inactive potassium chloride ER 10 mEq tablet,extended release RxNorm: 587154 TAKE 1 TABLET BY MOUTH EVERY DAY 07/23/2020 10/03/2020 Inactive pravastatin 40 mg tablet RxNorm: 576234 TAKE 1 TABLET BY MOUTH EVERY DAY 07/23/2020 10/03/2020 Inactive carvedilol 25 mg tablet RxNorm: 916258 TAKE 1 TABLET BY MOUTH T WICE DAILY 07/23/2020 10/03/2020 Inactive losartan 100 mg tablet RxNorm: 895921 TAKE 1 TABLET BY MOUTH EV RANDI DAY 06/27/2020 09/18/2020 Inactive furosemide 40 mg tablet RxNorm: 638565 TAKE 1 TABLET BY MOUTH E VERY MORNING 06/08/2020 09/30/2020 Inactive Coumadin 4 mg tablet RxNorm: 588248 1 Tablet(s) Oral Thursday thr thursday06/07/2020 11/29/2020 Inactive Coumadin 2 mg tablet RxNorm: 737754 1 Tablet(s) Oral on and Thursday03/20/2020 03/19/2020 Inactive Coumadin 4 mg tablet RxNorm: 303110 1 Tablet(s) Oral Thursday thr thursday03/20/2020 06/06/2020 Inactive losartan 100 mg tablet RxNorm: 850082 TAKE 1 TABLET BY MOUTH EV RANDI DAY 03/20/2020 06/26/2020 Inactive Coumadin 2 mg tablet RxNorm: 237525 1 Tablet(s) Oral on and Thursday03/20/2020 02/25/2021 Inactive furosemide 40 mg tablet RxNorm: 791390 1 Tablet(s) Oral [facility] 020 06/07/2020 Inactive pravastatin 40 mg tablet RxNorm: 159466 TAKE 1 TABLET BY MOUTH EVERY DAY 02/07/2020 07/22/2020 Inactive losartan 100 mg tablet RxNorm: 694705 TAKE 1 TABLET BY MOUTH EV RANDI DAY 02/01/2020 03/19/2020 Inactive losartan 100 mg tablet RxNorm: 443498 TAKE 1 TABLET BY MOUTH EV RANDI DAY 01/17/2020 01/31/2020 Inactive Coumadin 2 mg tablet RxNorm: 505873 1 Tablet(s) Oral on and Thursday12/15/2019 12/15/2019 Inactive furosemide 40 mg tablet RxNorm: 149090 TAKE 1 TABLET BY MOUTH E VERY MORNING 12/14/2019 03/12/2020 Inactive pravastatin 40 mg tablet RxNorm: 780733 TAKE 1 TABLET BY MOUTH EVERY DAY 11/27/2019 02/06/2020 Inactive losartan 100 mg tablet RxNorm: 782203 1 Tablet(s) Oral QD 11/10/2019 01/16/2020 Inactive isosorbide mononitrate ER 30 mg tablet,extended release 24 h r RxNorm: 625896 TABLET(S) 1 TABLET(S) PO NEEDED 11/10/2019 05/08/2020 Inactive Patient requests 90 days supply carvedilol 25 mg tablet RxNorm: 537606 1 Tablet(s) Oral two antolin es a day 11/10/2019 05/08/2020 Inactive Coumadin 2 mg tablet RxNorm: 595672 1 Tablet(s) Oral on and Thursday11/10/2019 12/14/2019 Inactive losartan 100 mg tablet RxNorm: 911712 1 Tablet(s) Oral QD 11/10/2019 11/09/2019 Inactive levothyroxine 50 mcg tablet RxNorm: 456901 1 Tablet(s) Oral QD 10/2310/21/2020 Inactive Coumadin 4 mg tablet RxNorm: 001350 1 Tablet(s) Oral Thursday thr thursday11/10/2019 11/10/2019 Inactive losartan 50 mg tablet RxNorm: 629430 2 Tablet(s) Oral QD 11/01/2019 1 01/10/2019 Inactive potassium chloride ER 10 mEq capsule,extended release RxNorm : 542458 1 Capsule(s) Oral QD 10/26/2019 12/14/2019 Inactive potassium chloride ER 10 mEq tablet,extended release RxNorm: 230137 1 TABLET(S) ORAL QD 10/22/2019 04/18/2020 Inactive Replaces PA on 1 0MEQ Capsules Aspir-81 mg tablet,delayed release RxNorm: 146344 1 Tablet(s) O ral QD 10/11/2019 No Stop Date Active cyclobenzaprine 5 mg tablet RxNorm: 139297 1 Tablet(s) Oral two times a day as needed for muscle spasm 10/11/2019 03/19/2020 Inactive Coumadin 4 mg tablet RxNorm: 550974 1 Tablet(s) Oral Mo through Thursday and 1/2 tablet (2mg) on Sat/Sun 10/11/2019 11/09/2019 Inactive potassium chloride ER 10 mEq tablet,extended release RxNorm: 344647 1 Tablet(s) Oral QD 09/22/2019 09/21/2019 Inactive Replaces PA on 1 0MEQ Capsules potassium chloride ER 10 mEq tablet,extended release RxNorm: 183587 1 Tablet(s) Oral QD 09/22/2019 10/10/2019 Inactive Replaces PA on 1 0MEQ Capsules potassium chloride ER 10 mEq capsule,extended release RxNorm : 344979 1 Capsule(s) Oral QD 09/21/2019 09/21/2019 Inactive carvedilol 25 mg tablet RxNorm: 212756 1 Tablet(s) Oral two antolin es a day 08/23/2019 11/09/2019 Inactive isosorbide mononitrate ER 30 mg tablet,extended release 24 h r RxNorm: 351288 TABLET(S) 1 TABLET(S) PO NEEDED 08/22/2019 10/04/2020 Inactive Patient requests 90 days supply isosorbide mononitrate ER 30 mg tablet,extended release 24 h r RxNorm: 945540 Tablet(s) 1 TABLET(S) PO NEEDED 08/16/2019 08/21/2019 Inactive Patient requests 90 days supply levothyroxine 50 mcg tablet RxNorm: 785721 1 Tablet(s) PO QD 201811/09/2019 Inactive isosorbide mononitrate ER 30 mg tablet,extended release 24 h r RxNorm: 577505 Tablet(s) 1 TABLET(S) PO NEEDED 06/27/2019 08/15/2019 Inactive Patient requests 90 days supply isosorbide mononitrate ER 30 mg tablet,extended release 24 h r RxNorm: 000897 1 Tablet(s) PO QD as needed 06/27/2019 06/27/2019 Inactive Neris ent requests 90 days supply carvedilol 25 mg tablet RxNorm: 859214 1 TABLET(S) PO BID 06/27/2019 08/22/2019 Inactive furosemide 40 mg tablet RxNorm: 343958 1 Tablet(s) PO QAM 06/21/2019 12/13/2019 Inactive carvedilol 25 mg tablet RxNorm: 779261 1 Tablet(s) PO BID 05/13/2019 06/26/2019 Inactive Xanax 0.25 mg tablet RxNorm: 794292 1/2 Tablet(s) PO Q6H as needed 05/13/2019 09/07/2019 Inactive levothyroxine 50 mcg tablet RxNorm: 487509 1 Tablet(s) PO QD 201808/07/2019 Inactive losartan 50 mg tablet RxNorm: 820189 1 Tablet(s) PO QD 04/26/2019 Inactive losartan 50 mg tablet RxNorm: 868706 1 Tablet(s) PO QD 04/20/201901/2019 Inactive pravastatin 40 mg tablet RxNorm: 805765 1 Tablet(s) PO QD 04/07/2019 06/05/2019 Inactive isosorbide mononitrate ER 30 mg tablet,extended release 24 h r RxNorm: 477719 1 Tablet(s) PO as needed 04/07/2019 04/06/2019 Inactive isosorbide mononitrate ER 30 mg tablet,extended release 24 h r RxNorm: 124269 1 TABLET(S) PO NEEDED 04/07/2019 06/26/2019 Inactive Patient requests 90 days supply losartan 50 mg tablet RxNorm: 666973 1 Tablet(s) PO QD 03/22/2019 Inactive Prolia subcutaneous RxNorm: 333404 subcutaneous 02/19/2021 A ctive carvedilol 25 mg tablet RxNorm: 922708 1 Tablet(s) PO BID 05/13/2019 05/12/2019 Inactive losartan 50 mg tablet RxNorm: 820861 1 Tablet(s) PO QD 03/22/2019 Inactive Ventolin HFA 90 mcg/actuation aerosol inhaler RxNorm: 311703 1-2 Puff(s) INH as needed 09/08/2019 09/07/2019 Inactive furosemide 40 mg tablet RxNorm: 132800 1 Tablet(s) PO QAM 06/21/2019 06/20/2019 Inactive pravastatin 40 mg tablet RxNorm: 874991 1 Tablet(s) PO QD 04/07/2019 04/06/2019 Inactive Coumadin 2 mg tablet RxNorm: 950624 1 Tablet(s) PO Mon, Fri, Sat and Sun then 2 tablets (4mg) on , Thu and 10/11/2019 10/10/2019 Inactive isosorbide mononitrate ER 30 mg tablet,extended release 24 h r RxNorm: 897098 Tablet(s) PO as needed 04/07/2019 04/06/2019 Inactive Women's Multivitamin 18 mg iron-400 mcg-500 mg tablet RxNorm : 1 Tablet(s) PO QD 09/08/2019 09/07/2019 Inactive Vitamin D3 1000 units Capsule RxNorm: 3 Capsule(s) PO QD 9 09/07/2019 Inactive vitamin B complex capsule RxNorm: 1 Capsule(s) PO QD 09/08/2019 Inactive potassium chloride ER 10 mEq capsule,extended release RxNorm : 976837 1 Capsule(s) PO QD 09/21/2019 09/20/2019 Inactive levothyroxine 50 mcg tablet RxNorm: 371704 1 Tablet(s) PO QD 201804/25/2019 Inactive Medication Administered No Medication Administered data Immunizations Vaccine Codes Date Status Influenza CVX: 135 08/23/2021 Complete Influenza CVX: 135 07/06/2020 Pneumovax CVX: 33 02/03/2020 Influenza CVX: 135 07/02/2019 Results Observation Observation Code Item Item Code Result Date S ervice Location PT 4962822 PT 28.3 Seconds 07/19/2021 Unknow n PT [id number] INR 2.6 07/19/2021 Unknown COMPREHENSIVE METABOLIC 83992 AST 20 U/L 2020 Unknown COMPREHENSIVE METABOLIC 38054 ALT 16 U/L 2020 Unknown COMPREHENSIVE METABOLIC 68292 BUN 35 mg/dL 2020 Unknown COMPREHENSIVE METABOLIC 71716 ALBUMIN 4.1 g/dL 2020 Unknown COMPREHENSIVE METABOLIC 91161 CHLORIDE 105 mmol/L 06/20 Unknown COMPREHENSIVE METABOLIC 52146 Bili Total 1.1 mg/dL 06/20 Unknown COMPREHENSIVE METABOLIC 24849 ALK PHOS 103 U/L 2020 Unknown COMPREHENSIVE METABOLIC 38010 SODIUM 139 mmol/L 06/20 Unknown COMPREHENSIVE METABOLIC 36582 CREATININE 0.99 mg/dL 05/24 Unknown COMPREHENSIVE METABOLIC 49014 CALCIUM 8.8 mg/dL 2020 Unknown COMPREHENSIVE METABOLIC 32760 POTASSIUM 4.7 mmol/L 06/20 Unknown COMPREHENSIVE METABOLIC 91235 Total Protein 6.2 g/dL Unknown COMPREHENSIVE METABOLIC 66429 Glucose 83 mg/dL 2020 Unknown COMPREHENSIVE METABOLIC 64017 Bicarbonate 27 mmol/L 05/24 Unknown COMPREHENSIVE METABOLIC 42997 AGAP 7 mmol/L 2020 Unknown COMPLETE BLOOD COUNT [id number] WBC 4.5 10e9/L 06/20/20 21 Unknown COMPLETE BLOOD COUNT [id number] RBC 3.99 10e12/L 2020 Unknown COMPLETE BLOOD COUNT 4645955 HEMOGLOBIN 11.8 g/dL 06/20/20 21 Unknown COMPLETE BLOOD COUNT [id number] HEMATOCRIT 36.6 % 06/20/20 21 Unknown COMPLETE BLOOD COUNT [id number] MCV 91.7 fL 1 Unknown COMPLETE BLOOD COUNT 8906247 MCH 29.6 pg 1 Unknown COMPLETE BLOOD COUNT 0557949 MCHC 32.2 g/dL 1 Unknown COMPLETE BLOOD COUNT 8663459 PLATELET COUNT 180 10e9/L Unknown COMPLETE BLOOD COUNT 2972200 Mean Plt Volume 11.1 fL Unknown COMPLETE BLOOD COUNT 7422084 Neut Auto 64.7 % 1 Unknown COMPLETE BLOOD COUNT 8915990 Lymph Auto 19.6 % 06/20/20 21 Unknown COMPLETE BLOOD COUNT 8025845 Juab Auto 13.5 % 1 Unknown COMPLETE BLOOD COUNT 6644320 RDW 15.1 % 1 Unknown COMPLETE BLOOD COUNT [id number] Eos Auto 1.8 % 1 Unknown COMPLETE BLOOD COUNT 0378646 Baso Auto 0.4 % 1 Unknown COMPLETE BLOOD COUNT [id number] Neutrophil Abs 2.91 10e9/L Unknown COMPLETE BLOOD COUNT [id number] Lymphocyte Abs 0.88 10e9/L Unknown COMPLETE BLOOD COUNT 8780454 Monocyte Abs 0.61 10e9/L 05/24 Unknown COMPLETE BLOOD COUNT 9957819 Eosinophil Abs 0.08 10e9/L Unknown COMPLETE BLOOD COUNT 8856270 RDW-SD 49.5 fL 1 Unknown COMPLETE BLOOD COUNT 9470918 Basophil Abs 0.02 10e9/L 05/24 Unknown GFR CALC 9829938 GFR Non Afr Amr 53 mL/min 06/20/2021 Unk nown GFR CALC 8304914 GFR Afr Amr >60 mL/min 06/20/2021 Unknow n PT [id number] PT 27.4 Seconds 06/20/2021 Unknow n PT [id number] INR 2.5 06/20/2021 Unknown PT [id number] PT 25.8 Seconds 05/21/2021 Unknow n PT [id number] INR 2.3 05/21/2021 Unknown FREE T4 93857 T4 Free 1.19 ng/dL 04/11/2021 Unknown PT [id number] PT 33.6 Seconds 04/11/2021 Unknow n PT [id number] INR 3.3 04/11/2021 Unknown THYROID STIMULATING HORMONE 57900 TSH 3.912 uIU/mL 04/11/2021 Unknown PT [id number] PT 33.1 Seconds 03/15/2021 Unknow n PT [id number] INR 3.2 03/15/2021 Unknown PT [id number] PT 24.6 Seconds 05/23/2020 Unknow n PT [id number] INR 2.2 05/23/2020 Unknown PT [id number] PT 31.4 Seconds 10/26/2019 Unknow n PT [id number] INR 2.9 10/26/2019 Unknown PT [id number] PT 17.6 Seconds 10/11/2019 Unknow n PT [id number] INR 1.4 10/11/2019 Unknown PT [id number] PT 23.7 Seconds 09/08/2019 Unknow n PT [id number] INR 2.0 09/08/2019 Unknown PT [id number] PT 23.2 Seconds 07/29/2019 Unknow n PT [id number] INR 2.0 07/29/2019 Unknown PT [id number] PT 14.3 Seconds 07/18/2019 Unknow n PT [id number] INR 1.1 07/18/2019 [place] [address] Glucose 75 mg/dL 07/06 [place] [address] CREATININE 0.61 mg/dL [place] [address] BUN 15 mg/dL 07/06 [place] [address] SODIUM 142 mmol/L 06/23 [place] [address] POTASSIUM 4.0 mmol/L 06/23 [place] [address] CHLORIDE 106 mmol/L 06/23 [place] [address] Bicarbonate 28 mmol/[place] [address] AGAP 8 mmol/L 07/06 [place] [address] CALCIUM 9.3 mg/dL 07/06 Unknown PT [id number] PT 17.4 Seconds 07/06/2019 Unknow n PT [id number] INR 1.4 07/06/2019 Unknown GFR CALC 0301564 GFR Non Afr Amr >60 mL/min 07/06/2019 Un known GFR CALC 3312904 GFR Afr Amr >60 mL/min 07/06/2019 Unknow n COMPLETE BLOOD COUNT 8337346 WBC 4.7 10e9/L 07/06/20 19 Unknown COMPLETE BLOOD COUNT [id number] RBC 4.19 10e12/L 2018 Unknown COMPLETE BLOOD COUNT 4327690 HEMOGLOBIN 12.6 g/dL 07/06/20 19 Unknown COMPLETE BLOOD COUNT [id number] HEMATOCRIT 39.4 % 07/06/20 19 Unknown COMPLETE BLOOD COUNT 3767561 MCV 94.0 fL 9 Unknown COMPLETE BLOOD COUNT 0063145 MCH 30.1 pg 9 Unknown COMPLETE BLOOD COUNT 1801765 MCHC 32.0 g/dL 9 Unknown COMPLETE BLOOD COUNT 3122029 PLATELET COUNT 160 10e9/L Unknown COMPLETE BLOOD COUNT 9808910 Mean Plt Volume 11.0 fL Unknown COMPLETE BLOOD COUNT 1859770 Neut Auto 56.6 % 9 Unknown COMPLETE BLOOD COUNT 3881166 Lymph Auto 27.0 % 07/06/20 19 Unknown COMPLETE BLOOD COUNT 2099742 Juab Auto 13.7 % 9 Unknown COMPLETE BLOOD COUNT 8940298 RDW 14.6 % 9 Unknown COMPLETE BLOOD COUNT 2169328 Eos Auto 2.1 % 9 Unknown COMPLETE BLOOD COUNT 7270938 Baso Auto 0.6 % 9 Unknown COMPLETE BLOOD COUNT 3018278 Neutrophil Abs 2.66 10e9/L Unknown COMPLETE BLOOD COUNT 3864375 Lymphocyte Abs 1.27 10e9/L Unknown COMPLETE BLOOD COUNT 1703407 Monocyte Abs 0.64 10e9/L 06/23 Unknown COMPLETE BLOOD COUNT 2256986 Eosinophil Abs 0.10 10e9/L Unknown COMPLETE BLOOD COUNT 7693561 RDW-SD 48.7 fL 9 Unknown COMPLETE BLOOD COUNT [id number] Basophil Abs 0.03 10e9/L 06/23 Unknown COMPLETE BLOOD COUNT 7103941 WBC 4.6 10e9/L 06/14/20 19 Unknown COMPLETE BLOOD COUNT 9147703 RBC 4.16 10e12/L 2018 Unknown COMPLETE BLOOD COUNT [id number] HEMOGLOBIN 12.6 g/dL 06/14/20 19 Unknown COMPLETE BLOOD COUNT [id number] HEMATOCRIT 39.1 % 06/14/20 19 Unknown COMPLETE BLOOD COUNT 5458869 MCV 94.0 fL 9 Unknown COMPLETE BLOOD COUNT 0217877 MCH 30.3 pg 9 Unknown COMPLETE BLOOD COUNT 0952210 MCHC 32.2 g/dL 9 Unknown COMPLETE BLOOD COUNT 1688306 PLATELET COUNT 167 10e9/L Unknown COMPLETE BLOOD COUNT 3663691 Mean Plt Volume 10.9 fL Unknown COMPLETE BLOOD COUNT 4042116 Neut Auto 59.6 % 9 Unknown COMPLETE BLOOD COUNT 7343010 Lymph Auto 24.1 % 06/14/20 19 Unknown COMPLETE BLOOD COUNT 0594265 Juab Auto 14.0 % 9 Unknown COMPLETE BLOOD COUNT 6652159 RDW 14.8 % 9 Unknown COMPLETE BLOOD COUNT 1088531 Eos Auto 1.9 % 9 Unknown COMPLETE BLOOD COUNT 9285285 Baso Auto 0.4 % 9 Unknown COMPLETE BLOOD COUNT 8321491 Neutrophil Abs 2.74 10e9/L Unknown COMPLETE BLOOD COUNT 8948843 Lymphocyte Abs 1.11 10e9/L Unknown COMPLETE BLOOD COUNT 4260979 Monocyte Abs 0.64 10e9/L 05/24 Unknown COMPLETE BLOOD COUNT 9723011 Eosinophil Abs 0.09 10e9/L Unknown COMPLETE BLOOD COUNT 9384700 RDW-SD 49.3 fL 9 Unknown COMPLETE BLOOD COUNT 1034103 Basophil Abs 0.02 10e9/L 05/24 Unknown PT [id number] PT 22.3 Seconds 06/14/2019 Unknow n PT [id number] INR 1.9 06/14/2019 Unknown COMPLETE BLOOD COUNT 7145573 WBC 4.0 10e9/L 05/13/20 19 Unknown COMPLETE BLOOD COUNT [id number] RBC 3.82 10e12/L 2018 Unknown COMPLETE BLOOD COUNT 6627946 HEMOGLOBIN 11.5 g/dL 05/13/20 19 Unknown COMPLETE BLOOD COUNT 8079388 HEMATOCRIT 36.4 % 05/13/20 19 Unknown COMPLETE BLOOD COUNT 8359929 MCV 95.3 fL 9 Unknown COMPLETE BLOOD COUNT 4075926 MCH 30.1 pg 9 Unknown COMPLETE BLOOD COUNT 4211216 MCHC 31.6 g/dL 9 Unknown COMPLETE BLOOD COUNT 8252638 PLATELET COUNT 175 10e9/L Unknown COMPLETE BLOOD COUNT 4408163 Mean Plt Volume 10.5 fL Unknown COMPLETE BLOOD COUNT 5671680 Neut Auto 63.2 % 9 Unknown COMPLETE BLOOD COUNT 5920733 Lymph Auto 22.0 % 05/13/20 19 Unknown COMPLETE BLOOD COUNT 9618811 Juab Auto 12.1 % 9 Unknown COMPLETE BLOOD COUNT 1756007 RDW 14.9 % 9 Unknown COMPLETE BLOOD COUNT 6921240 Eos Auto 2.2 % 9 Unknown COMPLETE BLOOD COUNT 9507462 Baso Auto 0.5 % 9 Unknown COMPLETE BLOOD COUNT 4567511 Neutrophil Abs 2.53 10e9/L Unknown COMPLETE BLOOD COUNT 4185458 Lymphocyte Abs 0.88 10e9/L Unknown COMPLETE BLOOD COUNT [id number] Monocyte Abs 0.48 10e9/L 04/24 Unknown COMPLETE BLOOD COUNT 5898111 Eosinophil Abs 0.09 10e9/L Unknown COMPLETE BLOOD COUNT 5166488 RDW-SD 49.6 fL 9 Unknown COMPLETE BLOOD COUNT 7905760 Basophil Abs 0.02 10e9/L 04/24 Unknown COMPREHENSIVE METABOLIC 51730 AST 18 U/L 2018 Unknown COMPREHENSIVE METABOLIC 30022 ALT 14 U/L 2018 Unknown COMPREHENSIVE METABOLIC 13975 BUN 15 mg/dL 2018 Unknown COMPREHENSIVE METABOLIC 44545 ALBUMIN 4.0 g/dL 2018 Unknown COMPREHENSIVE METABOLIC 28206 CHLORIDE 108 mmol/L 05/13 Unknown COMPREHENSIVE METABOLIC 82179 Bili Total 0.9 mg/dL 05/13 Unknown COMPREHENSIVE METABOLIC 66835 ALK PHOS 84 U/L 2018 Unknown COMPREHENSIVE METABOLIC 16170 SODIUM 142 mmol/L 05/13 Unknown COMPREHENSIVE METABOLIC 78207 CREATININE 0.72 mg/dL 04/24 Unknown COMPREHENSIVE METABOLIC 32477 CALCIUM 8.9 mg/dL 2018 Unknown COMPREHENSIVE METABOLIC 49707 POTASSIUM 4.0 mmol/L 05/13 Unknown COMPREHENSIVE METABOLIC 83964 Total Protein 5.5 g/dL Unknown COMPREHENSIVE METABOLIC 18481 Glucose 95 mg/dL 2018 Unknown COMPREHENSIVE METABOLIC 80247 Bicarbonate 27 mmol/L 04/24 Unknown COMPREHENSIVE METABOLIC 41247 AGAP 7 mmol/L 2018 Unknown GFR CALC 3607034 GFR Non Afr Amr >60 mL/min 05/13/2019 Un known GFR CALC [id number] GFR Afr Amr >60 mL/min 05/13/2019 Unknow n THYROID STIMULATING HORMONE 93724 TSH 2.669 uIU/mL 05/13/2019 Unknown FREE T4 87094 T4 Free 1.19 ng/dL 05/13/2019 Unknown PT [id number] PT 24.2 Seconds 05/06/2019 Unknow n PT [id number] INR 2.1 05/06/2019 Unknown PT [id number] PT 24.1 Seconds 03/08/2019 Unknow n PT [id number] INR 2.9 03/08/2019 Unknown Procedures Procedure Codes Date FLU VACC PRSV FREE INC ANTIG 65 AND OLDER CPT-4: 05641 08/23/2021 ROUTINE VENIPUNCTURE CPT-4: 12463 08/23/2021 PROTHROMBIN TIME CPT-4: 71674 08/23/2021 FLU VACC PRSV FREE INC ANTIG 65 AND OLDER CPT-4: 79168 08/23/2021 ADMIN INFLUENZA VIRUS VAC CPT-4: G0008 08/23/2021 ROUTINE VENIPUNCTURE CPT-4: 03272 07/19/2021 PROTHROMBIN TIME CPT-4: 42542 07/19/2021 ROUTINE VENIPUNCTURE CPT-4: 51182 06/20/2021 COMPREHEN METABOLIC PANEL CPT-4: 18383 06/20/2021 COMPLETE CBC W/AUTO DIFF WBC CPT-4: 95234 06/20/2021 PROTHROMBIN TIME CPT-4: 57176 06/20/2021 PT CPT-4: 5344636 05/16/2021 ROUTINE VENIPUNCTURE CPT-4: 89028 05/16/2021 ROUTINE VENIPUNCTURE CPT-4: 91127 04/11/2021 PROTHROMBIN TIME CPT-4: 94317 04/11/2021 ASSAY OF FREE THYROXINE CPT-4: 72292 04/11/2021 ASSAY THYROID STIM HORMONE CPT-4: 98453 04/11/2021 ROUTINE VENIPUNCTURE CPT-4: 61017 03/15/2021 PT CPT-4: 2216415 03/15/2021 ROUTINE VENIPUNCTURE CPT-4: 37891 02/22/2021 COMPREHEN METABOLIC PANEL CPT-4: 91217 02/22/2021 ASSAY OF FREE THYROXINE CPT-4: 24688 02/22/2021 ASSAY THYROID STIM HORMONE CPT-4: 92756 02/22/2021 COMPLETE CBC W/AUTO DIFF WBC CPT-4: 12306 02/22/2021 PROTHROMBIN TIME CPT-4: 35559 02/22/2021 LIPID PANEL CPT-4: 99290 02/22/2021 PPPS, subseq visit CPT-4: G0439 09/26/2020 ROUTINE VENIPUNCTURE CPT-4: 24355 05/23/2020 PROTHROMBIN TIME CPT-4: 95763 05/23/2020 ROUTINE VENIPUNCTURE CPT-4: 45000 01/20/2020 PT CPT-4: 7843090 01/20/2020 ROUTINE VENIPUNCTURE CPT-4: 51330 12/15/2019 PROTHROMBIN TIME CPT-4: 43059 12/15/2019 ROUTINE VENIPUNCTURE CPT-4: 63828 11/10/2019 PROTHROMBIN TIME CPT-4: 66188 11/10/2019 PROTHROMBIN TIME CPT-4: 67333 10/26/2019 ROUTINE VENIPUNCTURE CPT-4: 76154 10/26/2019 ROUTINE VENIPUNCTURE CPT-4: 55161 10/11/2019 PT CPT-4: 8586095 10/11/2019 PPPS, initial visit CPT-4: G0438 09/20/2019 ROUTINE VENIPUNCTURE CPT-4: 38322 09/08/2019 PT CPT-4: 0083526 09/08/2019 THER/PROPH/DIAG INJ SC/IM CPT-4: 10795 09/08/2019 TRIAMCINOLONE ACET INJ NOS CPT-4: J3301 09/08/2019 ROUTINE VENIPUNCTURE CPT-4: 12046 07/29/2019 PT CPT-4: 6926767 07/29/2019 ROUTINE VENIPUNCTURE CPT-4: 77946 07/18/2019 PT CPT-4: 2550490 07/18/2019 METABOLIC PANEL TOTAL CA CPT-4: 29519 07/06/2019 COMPLETE CBC W/AUTO DIFF WBC CPT-4: 46108 07/06/2019 PROTHROMBIN TIME CPT-4: 58179 07/06/2019 ROUTINE VENIPUNCTURE CPT-4: 65094 06/14/2019 PROTHROMBIN TIME CPT-4: 71963 06/14/2019 COMPLETE CBC W/AUTO DIFF WBC CPT-4: 13707 06/14/2019 ROUTINE VENIPUNCTURE CPT-4: 22027 05/13/2019 COMPREHEN METABOLIC PANEL CPT-4: 88289 05/13/2019 COMPLETE CBC W/AUTO DIFF WBC CPT-4: 87179 05/13/2019 ASSAY THYROID STIM HORMONE CPT-4: 33185 05/13/2019 ASSAY OF FREE THYROXINE CPT-4: 36994 05/13/2019 PT CPT-4: 4755014 05/06/2019 ROUTINE VENIPUNCTURE CPT-4: 36531 05/06/2019 PT CPT-4: 1093203 04/07/2019 ROUTINE VENIPUNCTURE CPT-4: 28272 04/07/2019 ROUTINE VENIPUNCTURE CPT-4: 30150 03/08/2019 PROTHROMBIN TIME CPT-4: 45166 03/08/2019 Vital Signs Date Vital 08/20/2021 Blood Pressure 1: 127/69 Code: 8480-6 Heart Rate 1: 84 bpm Respiratory Rate: 17 bpm SpO2: 98% Temperature: 36.7 (C) / 98.1 (F) We ight: 208 lbs Code: 04907-0 05/16/2021 Blood Pressure 1: 136/64 Code: 8480-6 BMI: 37.0 Code: 03589-4 Heart Rate 1: 61 bpm Height: 5'3" Code: 8302-2 Respiratory Rate: 16 bpm SpO2: 98% Temperature: 36.2 (C) / 97.1 (F) Weight: 212 lbs Code: 69365-7 03/05/2021 Blood Pressure 1: 134/76 Code: 8480-6 Heart Rate 1: 66 bpm Respiratory Rate: 16 bpm SpO2: 100% Temperature: 37.1 (C) / 98.7 (F) We ight: 203 lbs Code: 14387-9 02/19/2021 Blood Pressure 1: 126/70 Code: 8480-6 BMI: 35.4 Code: 61028-3 Heart Rate 1: 72 bpm Height: 5'3" Code: 8302-2 Respiratory Rate: 16 bpm SpO2: 99% Temperature: 36.3 (C) / 97.3 (F) Weight: 203 lbs Code: 27391-9 01/16/2021 Blood Pressure 1: 112/74 Code: 8480-6 Heart Rate 1: 76 bpm Respiratory Rate: 20 bpm Temperature: 36.7 (C) / 98.0 (F) Weight: 205 lbs Code : 71692-7 11/19/2020 Blood Pressure 1: 120/78 Code: 8480-6 Heart Rate 1: 88 bpm Temperature: 36.6 (C) / 97.8 (F) 11/12/2020 Blood Pressure 1: 110/57 Code: 8480-6 Heart Rate 1: 68 bpm Respiratory Rate: 15 bpm SpO2: 100% Weight: 202 lbs Code: 83565 -7 10/12/2020 Blood Pressure 1: 114/70 Code: 8480-6 Heart Rate 1: 84 bpm Respiratory Rate: 18 bpm SpO2: 98% Temperature: 36.7 (C) / 98.0 (F) 09/26/2020 Blood Pressure 1: 120/72 Code: 8480-6 BMI: 35.2 Code: 88479-6 Heart Rate 1: 76 bpm Height: 5'3" Code: 8302-2 Respiratory Rate: 20 bpm SpO2: 97% Temperature: 36.7 (C) / 98.0 (F) Weight: 202 lbs Code: 11200-8 08/27/2020 Blood Pressure 1: 126/82 Code: 8480-6 Heart Rate 1: 80 bpm Respiratory Rate: 20 bpm Temperature: 36.2 (C) / 97.1 (F) Weight: 198 lbs Code : 55483-6 05/23/2020 Blood Pressure 1: 120/78 Code: 8480-6 Heart Rate 1: 68 bpm Respiratory Rate: 20 bpm SpO2: 97% Temperature: 36.4 (C) / 97.5 (F) We ight: 200 lbs Code: 33368-8 05/02/2020 Blood Pressure 1: 133/81 Code: 8480-6 Heart Rate 1: 74 bpm Weight: 202 lbs Code: 85690-5 12/15/2019 Blood Pressure 1: 126/82 Code: 8480-6 Heart Rate 1: 64 bpm Respiratory Rate: 20 bpm SpO2: 97% Temperature: 36.6 (C) / 97.8 (F) We ight: 201 lbs Code: 70307-3 11/03/2019 Blood Pressure 1: 142/82 Code: 8480-6 [...] / 98.1 (F) Weight: 204 lbs Code: 25779-8 09/20/2019 Blood Pressure 1: 122/68 Code: 8480-6 BMI: 35.0 Code: 18026-6 Heart Rate 1: 72 bpm Height: 5'3" Code: 8302-2 Respiratory Rate: 18 bpm SpO2: 95% Temperature: 36.8 (C) / 98.3 (F) Weight: 201 lbs Code: 19695-1 09/08/2019 Blood Pressure 1: 118/72 Code: 8480-6 Heart Rate 1: 82 bpm SpO2: 97% Temperature: 36.3 (C) / 97.4 (F) Weight: 208 lbs Code: 94627-1 06/14/2019 Blood Pressure 1: 128/84 Code: 8480-6 Heart Rate 1: 72 bpm Respiratory Rate: 20 bpm SpO2: 98% Temperature: 36.7 (C) / 98.1 (F) We ight: 209 lbs Code: 82278-5 05/13/2019 Blood Pressure 1: 144/90 Code: 8480-6 Heart Rate 1: 88 bpm Respiratory Rate: 24 bpm SpO2: 96% Temperature: 37.1 (C) / 98.8 (F) We ight: 210 lbs Code: 13431-7 05/02/2019 Blood Pressure 1: 128/80 Code: 8480-6 Heart Rate 1: 84 bpm Respiratory Rate: 20 bpm SpO2: 95% Temperature: 36.6 (C) / 97.9 (F) We ight: 209 lbs Code: 79437-7 03/22/2019 Blood Pressure 1: 122/70 Code: 8480-6 He art Rate 1: 85 bpm 03/08/2019 Blood Pressure 1: 114/78 Code: 8480-6 BMI: 36.1 Code: 78048-0 Heart Rate 1: 76 bpm Height: 5'3" Code: 8302-2 Respiratory Rate: 20 bpm SpO2: 97% Temperature: 37.1 (C) / 98.8 (F) Weight: 207 lbs Code: 10962-7 Functional Status No Functional Status data Reason [...] pressure check 03/22/2019 ~generic 03/08/2019 New Patient---[facility] visit Encounters Encounter Performer Location Codes Date ([id number]) NURSE/OUTPATIENT VISIT EST Diagnosis: Chronic atrial fibrillation[ICD10: I48.20] Diagnosis: Long-term (current) use of anticoagulants, INR goal 2.0-3.0[ICD10: Z79.01] Diagnosis: FLU VACCINE[ICD10: Z23] Jeanie ORTEZQUELINE David GlocalHAYDEE Evri CPT-4: 71229 08/23/2021 ([id number]) OFFICE/OUTPATIENT VISIT EST Diagnosis: Breast pain, left[ICD10: N64.4] Diagnosis: Left breast lump[ICD10: N63.20] Remedios JENNINGSLINE OfeAxel GlocalHAYDEEEvri CPT-4: 34389 08/20/2021 ([id number]) NURSE/OUTPATIENT VISIT EST Diagnosis: Long-term (current) use of anticoagulants, INR goal 2.0-3.0[ICD10: Z79.01] Jeanie CONNELL David GlocalHAYDEEEvri CPT-4: 48674 07/19/2021 ([id number]) NURSE/OUTPATIENT VISIT EST Diagnosis: Essential (primary) hypertension[ICD10: I10] Diagnosis: Chronic atrial fibrillation[ICD10: I48.20] Diagnosis: Long-term (current) use of anticoagulants, INR goal 2.0-3.0[ICD10: Z79.01] Diagnosis: Anemia, unspecified[ICD10: D64.9] Jeanie Parra [employer] CPT-4: 52113 06/20/2021 ([id number]) OFFICE/OUTPATIENT VISIT EST Diagnosis: Long-term (current) use of anticoagulants, INR goal 2.0-3.0[ICD10: Z79.01] Diagnosis: Essential (primary) hypertension[ICD10: I10] Diagnosis: Chronic congestive heart failure with left ventricular diastolic dysfunction[ICD10: I50.32] Diagnosis: Severe obesity (BMI 35.0-39.9) with comorbidity[ICD10: E66.01] Diagnosis: Chronic atrial fibrillation[ICD10: I48.20] Diagnosis: Obstructive sleep apnea syndrome[ICD10: G47.33] Remedios BLACK [employer] [facility] CPT-4: 11355 05/16/2021 ([id number]) NURSE/OUTPATIENT VISIT EST Diagnosis: Hypothyroidism, unspecified[ICD10: E03.9] Diagnosis: Long-term (current) use of anticoagulants, INR goal 2.0-3.0[ICD10: Z79.01] Jeanie BLACK [facility] CPT-4: 99153 04/11/2021 ([id number]) NURSE/OUTPATIENT VISIT EST Diagnosis: Long-term (current) use of anticoagulants, INR goal 2.0-3.0[ICD10: Z79.01] Jeanie BLACK [facility] CPT-4: 59927 03/15/2021 ([id number]) OFFICE/OUTPATIENT VISIT EST Diagnosis: Essential hypertension[ICD10: I10] Diagnosis: Cheilitis[ICD10: K13.0] Diagnosis: Pulmonary hypertension[ICD10: I27.20] Jeanie ORTEZELVA AGUILERA David BLACK [employer] [facility] CPT-4: 55687 03/05/2021 ([id number]) NURSE/OUTPATIENT VISIT EST Diagnosis: Essential (primary) hypertension[ICD10: I10] Diagnosis: Hypothyroidism, unspecified[ICD10: E03.9] Diagnosis: Long-term (current) use of anticoagulants, INR goal 2.0-3.0[ICD10: Z79.01] Diagnosis: Mixed hyperlipidemia[ICD10: E78.2] Jeanie Avendañoalberta ANN MCKEE David BLACK [employer] [facility] CPT-4: 52223 02/22/2021 ([id number]) OFFICE/OUTPATIENT VISIT EST Diagnosis: Cheilitis[ICD10: K13.0] Diagnosis: Encounter for medication review and counseling[ICD10: Z71.89] Diagnosis: Long-term (current) use of anticoagulants, INR goal 2.0-3.0[ICD10: Z79.01] Diagnosis: Hypothyroidism, unspecified[ICD10: E03.9] Diagnosis: Mixed hyperlipidemia[ICD10: E78.2] Diagnosis: Severe obesity (BMI 35.0-39.9) with comorbidity[ICD10: E66.01] Diagnosis: Chronic congestive heart failure with left ventricular diastolic dysfunction[ICD10: I50.32] Remedios BLACK DO [facility] CPT- 4: 59939 02/19/2021 ([id number]) OFFICE/OUTPATIENT VISIT EST Diagnosis: Cheilitis[ICD10: K13.0] Jannette PINZON DO [facility] CPT-4: 76687 01/16/2021 ([id number]) OFFICE/OUTPATIENT VISIT EST Diagnosis: Hypotension[ICD10: I95.9] Diagnosis: Dizziness[ICD10: R42] Jannette BLACK DO C CPT-4: 16009 11/12/2020 ([id number]) OFFICE/OUTPATIENT VISIT EST Diagnosis: Thoracic back pain[ICD10: M54.6] Diagnosis: Dizziness[ICD10: R42] Jannette BLACK DO [facility] CPT-4: 60542 10/12/2020 ([id number]) OFFICE/OUTPATIENT VISIT EST Diagnosis: Chronic atrial fibrillation[ICD10: I48.20] Diagnosis: Chronic airway obstruction, not elsewhere classified[ICD10: J44.9] Diagnosis: Essential hypertension[ICD10: I10] Jeaniemari MCKEE David BLACK DO [facility] CPT-4: 21579 08/27/2020 ([id number]) OFFICE/OUTPATIENT VISIT EST Diagnosis: Essential (primary) hypertension[ICD10: I10] Diagnosis: Chronic atrial fibrillation[ICD10: I48.20] Diagnosis: COPD (chronic obstructive pulmonary disease)[ICD10: J44.9] Diagnosis: Dyspnea[ICD10: R06.00] Diagnosis: Left hip pain[ICD10: M25.552] Jeaniecristhian Black JEANIE David BLACK DO [facility] CPT-4: 92085 05/23/2020 ([id number]) NURSE/OUTPATIENT VISIT EST Diagnosis: Essential (primary) hypertension[ICD10: I10] Jeanie CONNELL OfeAxel VARUN MCCURDY [facility] CPT-4: 52726 05/02/2020 ([id number]) OFFICE/OUTPATIENT VISIT EST Diagnosis: COPD (chronic obstructive pulmonary disease)[ICD10: J44.9] Diagnosis: Chronic atrial fibrillation[ICD10: I48.20] Diagnosis: Essential hypertension[ICD10: I10] [facility] CPT[facility]: 57148 03/20/2020 ([id number]) NURSE/OUTPATIENT VISIT EST Diagnosis: Long-term (current) use of anticoagulants, INR goal 2.0-3.0[ICD10: Z79.01] Jeanie Dykeshaydeealberta ThakurAxel VARUN [employer] [facility] CPT-4: 06540 01/20/2020 ([id number]) OFFICE/OUTPATIENT VISIT EST Diagnosis: COPD (chronic obstructive pulmonary disease)[ICD10: J44.9] Diagnosis: Long-term (current) use of anticoagulants, INR goal 2.0-3.0[ICD10: Z79.01] Diagnosis: History of recent fall[ICD10: Z91.81] Jeanie Donisanirudh WALTON ALE OfeAxel DONISHAYDEEALBERTA [employer] [facility] CPT-4: 63513 12/15/2019 ([id number]) NURSE/OUTPATIENT VISIT EST Diagnosis: Long-term (current) use of anticoagulants, INR goal 2.0-3.0[ICD10: Z79.01] Jeanie Avendañoalberta JEANIE ThakurAxel VARUN [employer] [facility] CPT-4: 89886 11/10/2019 ([id number]) OFFICE/OUTPATIENT VISIT EST Diagnosis: Post concussion syndrome[ICD10: F07.81] Diagnosis: Head contusion[ICD10: S00.93XA] Diagnosis: Chronic airway obstruction, not elsewhere classified[ICD10: J44.9] Jeanie Dykesanirudh ORTEZJEANIE SAxel VARUN [employer] [facility] CPT-4: 77519 11/03/2019 ([id number]) OFFICE/OUTPATIENT VISIT EST Diagnosis: Fall as cause of accidental injury at home as place of occurrence[ICD10: W19.XXXA] Diagnosis: Headache[ICD10: R51] Diagnosis: Essential (primary) hypertension[ICD10: I10] Diagnosis: Long-term (current) use of anticoagulants, INR goal 2.0-3.0[ICD10: Z79.01] Diagnosis: Ecchymosis of left eye[ICD10: S05.12XA] Jannettevalentina BLACK DO [facility] CPT-4: 95745 10/31/2019 ([id number]) NURSE/OUTPATIENT VISIT EST Diagnosis: Long-term (current) use of anticoagulants, INR goal 2.0-3.0[ICD10: Z79.01] Jeanie JENNINGSLINE David BLACK DO [facility] CPT-4: 79753 10/26/2019 ([id number]) OFFICE/OUTPATIENT VISIT EST Diagnosis: Long-term (current) use of anticoagulants, INR goal 2.0-3.0[ICD10: Z79.01] Diagnosis: Pain in right arm[ICD10: M79.601] Diagnosis: Radiculopathy of arm[ICD10: M54.10] Jannette BLACK DO [facility] CPT-4: 66571 10/11/2019 ([id number]) OFFICE/OUTPATIENT VISIT EST Diagnosis: Long-term (current) use of anticoagulants, INR goal 2.0-3.0[ICD10: Z79.01] Diagnosis: Sinusitis[ICD10: J32.9] Diagnosis: Pain in right arm[ICD10: M79.601] Jannette BLACK DO [employer] CPT-4: 15128 09/08/2019 ([id number]) NURSE/OUTPATIENT VISIT EST Diagnosis: Chronic atrial fibrillation[ICD10: I48.2] Diagnosis: Encounter for therapeutic drug level monitoring[ICD10: Z51.81] Jeanie Donisanirudh JEANIE OfeAxel VARUN MCCURDY [facility] CPT-4: 10974 07/29/2019 ([id number]) NURSE/OUTPATIENT VISIT EST Diagnosis: Chronic atrial fibrillation[ICD10: I48.2] Diagnosis: Encounter for therapeutic drug level monitoring[ICD10: Z51.81] Jeanie Donisanirudh JEANIE OfeAxel VARUN MCCURDY [facility] CPT-4: 09644 07/18/2019 ([id number]) NURSE/OUTPATIENT VISIT EST Diagnosis: Encounter for therapeutic drug level monitoring[ICD10: Z51.81] Diagnosis: Chronic atrial fibrillation[ICD10: I48.2] Diagnosis: Essential (primary) hypertension[ICD10: I10] Jeanie ORTEZQUELINE OfeAxel VARUN MCCURDY [facility] CPT-4: 34436 07/06/2019 ([id number]) OFFICE/OUTPATIENT VISIT EST Diagnosis: Encounter for therapeutic drug level monitoring[ICD10: Z51.81] Diagnosis: Anemia, unspecified[ICD10: D64.9] Diagnosis: Bitten by dog, sequela[ICD10: W54.0XXS] 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] Jeanie BLACK [employer] CPT-4: 15376 06/14/2019 ([id number]) OFFICE/OUTPATIENT VISIT EST Diagnosis: Bitten by dog, sequela[ICD10: W54.0XXS] Diagnosis: Other fatigue[ICD10: R53.83] Diagnosis: Hypothyroidism, unspecified[ICD10: E03.9] Diagnosis: Muscle weakness (generalized)[ICD10: M62.81] Diagnosis: Generalized anxiety disorder[ICD10: F41.1] Jannette BLACK [employer] CPT-4: 09727 05/13/2019 ([id number]) NURSE/OUTPATIENT VISIT EST Diagnosis: Encounter for therapeutic drug level monitoring[ICD10: Z51.81] Jeanie BLACK [employer] CPT-4: 16156 05/06/2019 ([id number]) OFFICE/OUTPATIENT VISIT EST Diagnosis: Bitten by dog, sequela[ICD10: W54.0XXS] Diagnosis: Pain in right wrist[ICD10: M25.531] Diagnosis: Abrasion of right upper arm, sequela[ICD10: S40.811S] Diagnosis: Abrasion of left upper arm, sequela[ICD10: S40.812S] Jannette BLACK [employer] CPT-4: 01656 05/02/2019 ([id number]) NURSE/OUTPATIENT VISIT EST Diagnosis: Encounter for therapeutic drug level monitoring[ICD10: Z51.81] Jeanie BLACK [employer] CPT-4: 01232 04/07/2019 ([id number]) OFFICE/OUTPATIENT VISIT NEW Diagnosis: Encounter for therapeutic drug level monitoring[ICD10: Z51.81] Diagnosis: Chronic atrial fibrillation[ICD10: I48.2] Diagnosis: Essential (primary) hypertension[ICD10: I10] Diagnosis: Abnormal findings on diagnostic imaging of heart and coronary circulation[ICD10: R93.1] Diagnosis: Other forms of dyspnea[ICD10: R06.09] Diagnosis: Hypothyroidism, unspecified[ICD10: E03.9] Diagnosis: Mixed hyperlipidemia[ICD10: E78.2] Jeanie BLACK DO [facility] CPT-4: 66727 03/08/2019 Plan of Care Planned Activity Notes Codes Status Date Visit Plan: 08/20/2021 Visit Diagnosis Plan: Left breast lump Discussion: [place] [place] get US of left breast and soft tissue under breast and f/u with results. F/U for sooner for concerns. ICD-9 : 611.72 ICD-10 : N63.20 08/20/2021 Appointment: Jeanie Black WPtel: [address] [place] [address] US CANCELED 08/20/2021 Appointment: Remedios Cavazos WPtel: [phone] ACUTE ILLNESS 08/20/2021 Patient Education: Patient Medication Summary Completed 08/20/2021 Appointment: Jeanie Black WPtel: [address] [place] [address] US see note in chart from 08/08/21 (km) CANCELED 08/08/2021 Appointment: Jeanie Black WPtel: [address] [place] [address] US LAB 07/19/2021 Appointment: Jeanie Black WPtel: [address] [place] [address] US LAB 06/20/2021 Visit Diagnosis Plan: Severe obesity (BMI 35.0-39.9) w ith comorbidity Discussion: Discussed diet and exercise ICD-9 : 278.01 ICD-10 : E66.01 05/16/2021 Visit Diagnosis Plan: Obstructive sleep apnea syndrome Discussion: Per pulm note- order for bipap sent to [facility]- will call them to check, patient states [...] 05/16/2021 Appointment: Remedios Cav[facility]el[facility] [phone] [facility] [facility] MEDICATION REVIEW 05/16/2021 Patient Education: Patient Medication Summary Completed 05/16/2021 Patient Education: isosorbide mononitrate- [employer] Coupon [id number] https://www.Tengaged.Disruptor Beam/samplemd/resources/getResource/61/a4z0x4i3-v774-444t-u4 Completed 05/16/2021 Patient Education: High Blood Pressure Co mpleted 05/16/2021 Appointment: Jeanie Black WPtel: [address] [place], [place] [id number] US LAB 04/11/2021 Appointment: Jeanie Black WPtel: [address] [place], [place] [id number] US CANCELED 03/27/2021 Appointment: Jeanie Black WPtel: [address] [place], [place] [id number] US LAB 03/15/2021 Visit Diagnosis Plan: Pulmonary [...] I10 03/05/2021 Appointment: [facility] [phone] [facility] [facility] 03/05/2021 Patient Education: spironolactone- [employer] Coupon 1 [id number] https://www.InnovEco/Tengaged/resources/getResource/61/7cv40ir0-2u0f-4q63-3i Completed 03/05/2021 Appointment: Jeanie Black [facility]Ptel[facility] [phone] [facility] [facility] 02/22/2021 Visit Diagnosis Plan: Cheilitis [...] E78.2 02/19/2021 Appointment: Remedios Cavazos WPtel: [phone] MEDICATION REVIEW 02/19/2021 Patient Education: Patient [...] ICD-10 : K13.0 01/16/2021 Appointment: Jannette Mayen [address] [place] [address] ACUTE ILLNESS 01/16/2021 Appointment: Jeanie Black WPtel: [phone] [id number] US BP CHECK 11/19/2020 Visit Diagnosis Plan: [...] ICD-10 : I95.9 11/12/2020 Appointment: Jannette Mayen [address] [place] [address] ACUTE ILLNESS 11/12/2020 Visit Diagnosis Plan: Thoracic [...] ICD-10 : R42 10/12/2020 Appointment: Jannette Mayen [address] [place] [address] ACUTE ILLNESS 10/12/2020 Visit Diagnosis Plan: Chronic atrial fibrillation Disc ussion: Following routinely with cardiology ICD-9 : 427.31 ICD-10 : I48.20 09/26/2020 Visit Diagnosis Plan: Essential (primary) hypertension Discussion: Stable ICD-9 : 401.9 ICD-10 : I10 09/26/2020 Visit Diagnosis Plan: Encounter for [facility] adult medical examination without abnormal findings [...] I50.32 09/26/2020 Appointment: Jeanie Black WPtel: [address] [place], [place] [id number] US Annual Well Visit 09/26/2020 Care Plan: Referral Order SNOMED-CT : [id number] Pending 09/26/2020 Visit Diagnosis Plan: Chronic airway [...] I48.20 08/27/2020 Appointment: Jeanie Black WPtel: [address] [place], [place] [id number] US FOLLOW UP 08/27/2020 Visit Diagnosis Plan: [...] I10 05/23/2020 Appointment: Jeanie Black WPtel: [address] [place] [id number] US FOLLOW UP 05/23/2020 Appointment: Jeanie Black WPtel: [address] [place], [place] [phone] NURSE SERVICES 05/02/2020 Visit Diagnosis Plan: Chronic [...] : J44.9 03/20/2020 Appointment: Jeanie Black WPtel: [address] [place], [place] [phone] TELEMEDICINE 03/20/2020 Patient Education: Coumadin- [employer] Coupon [id number] https://www.InnovEco/Tengaged/resources/getResource/61/6n354g69-55o3-2spk-3o Completed 03/20/2020 Patient Education: Coumadin- [employer] Coupon [id number] https://www.InnovEco/Tengaged/resources/getResource/61/8wd69a2n-7b2e-4dx0-gy Completed 03/20/2020 Appointment: Jeanie Black WPtel: [address] [place], [place] [phone] LAB 01/20/2020 Visit Diagnosis Plan: History of recent fall Discussio n: Healing well Doing balance class at [facility] Follow Up: 3 months ICD-9 : V15.88 ICD-10 : Z91.81 12/15/2019 Visit Diagnosis Plan: COPD (chronic obstructive pulmon valeria disease) Discussion: Continue pulmonary rehab ICD-9 : 496 ICD-10 : J44.9 12/15/2019 Visit Diagnosis Plan: Long-term (current ) use of anticoagulants, INR goal 2.0-3.0 Discussion: PT/INR drawn ICD-9 : V58.61 ICD-10 : Z79.01 12/15/2019 Appointment: Jeanie Black WPtel: [phone] [facility] [facility] FOLLOW [facility] 12/15/2019 Patient Education: Coumadin- [employer] Coupon [id number] https://www.Tengaged.Disruptor Beam/Tengaged/resources/getResource/61/l943zwij-md55-4vin-6r Completed 12/15/2019 Appointment: Jeanie Black WPtel: [address] [place], [place] [phone] US LAB 11/10/2019 Visit Diagnosis Plan: Post [...] : J44.9 11/03/2019 Appointment: Jeanie Black [facility]Ptel: [facility] FO[facility] 11/03/2019 Care Plan: [facility] Pending 11/01/2019 Visit Diagnosis Plan: Essential (primary) [...] ICD-10 : S05.12XA 10/31/2019 Appointment: Jannette Mayen [address] [place] [address] Hospital Follow Up 10/31/2019 Patient Education: High Blood Pressure Co mpleted 10/31/2019 Patient Education: losartan- [employer] Coupon [id number] https://www.Tengaged.Disruptor Beam/samplemd/resources/getResource/61/7k246909-1t28-8951-6a Completed 10/31/2019 Appointment: Jeanie Black WPtel: [phone] [facility] FOLLOW UP 10/26/2019 Visit Diagnosis Plan: Long-term (current ) use of anticoagulants, INR goal 2.0-3.0 Discussion: will update pt/inr ICD-9 : V58.61 ICD-10 : Z79.01 10/11/2019 Visit Diagnosis Plan: Radiculopathy of arm Discussion: flexeril prescribed to take as needed. will start at low dose but instructed patient to call office if not effective and will increase mg dose. PT ordered at [facility] to assist with pain. if no improvement or worsening from PT, will need imaging. 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 attorney ICD-9 : 906.1 ICD-10 : W54.0XXS [...] : E78.2 09/20/2019 Appointment: Jeanie Black WPtel: [address] [place] [address] Annual Well Visit 09/20/2019 Visit Diagnosis Plan: [...] ICD-10 : Z79.01 09/08/2019 Appointment: Jannette Mayen [address] [place] [address] ACUTE ILLNESS 09/08/2019 Appointment: Jeanie Black WPtel: [address] [place] [address] US CANCELED 08/16/2019 Appointment: Jeanie Black WPtel: [address] [place], [place] [id number] US LAB 07/29/2019 [facility]ment[facility] [phone] [id number] [facility] 07/18/2019 [facility]ment[id number] [facility] 07/06/2019 Visit Diagnosis Plan: Bitten [...] D64.9 06/14/2019 App[facility]ment[phone] [id number] [facility] FOLLOW UP 06/14/2019 Visit Diagnosis Plan: [...] : R53.83 05/13/2019 [facility] [address] [id number] FOLLOW UP 05/13/2019 Patient Education: carvedilol- [employer] Coupon [id number] [email or web address] Completed 05/13/2019 Patient Education: Xanax- [employer] Coupon [id number] [email or web address] Completed 05/13/2019 Appointment: Jeanie Black [facility]Ptel: [phone] [id number] [facility] 05/06/2019 Visit Diagnosis Plan: Abrasion [...] results to dr. portillo at [facility]. ICD-9 : 719.43 ICD-10 : M25.531 05/02/2019 Appointment: Jannette Mayen [address] ACUTE ILLNESS 05/02/2019 Care Plan: X-RAY EXAM OF WRIST right LOINC : [id number] Pending 05/02/2019 Appointment: Jeanie Black WPtel: [address] [place] [address] US LAB 04/07/2019 Appointment: Jeanie Black WPtel: [address] [place] [address] US BP CHECK 03/22/2019 Visit Diagnosis Plan: [...] Appointment: Jeanie Black WPtel: [phone] [id number] US NEW PATIENT 03/08/2019 Referral: Shona Viera WPtel: [facility] [address] [id number] Referral Appointment Requested Instructions No Instructions Medical Equipment No Medical Equipment data Health Concerns Section Health Concerns data not found Goals Section Goals data not found Interventions Section Interventions data not found Health Status Evaluations/Outcomes Section Health Status Evaluations/Outcomes data not found Advance Directives No Advance Directive data
--- OUTSIDE RECORDS SUMMARY | 2021-09-19 12:41 | XMS REPORT | CCD ---
Author Author Tricia Black D.O. Organization [facility] Address [address] [place] [address] Phone Care Team Providers Care Delphi Developer Name Role Phone PP Unavailable CCM Unavailable Summary Purpose Interface Exchange Insurance Providers Payer name Policy type / Coverage type Covered republican ID Effective Begin Date Effective End Date WPS MEDICARE PART B [place] Medicare Part B [id number] Unknown Unknown AARP Medicare Part B [id number] Unknown Unknown Family history Grandmother Diagnosis Age [...] Unknown Retired 03/08/[address]: 494341882 Has never smoked or chewed tobacco 03/08/[address]: 269063 Currently drinks alcohol 03/08 Has the patient [...] Problems Condition Codes Effective Dates Condition Status Breast pain, left ICD-10: N64.4 ICD-9: 611.71 08/20/2021 Active Left breast lump ICD-10: N63.20 ICD-9: 611.72 08/20/2021 Active Long-term (current) use of anticoagulants, INR goal 2. 0-3.0 ICD-10: Z79.01 ICD-9: V58.61 09/08/2019 Active Anemia, unspecified ICD-10: D64.9 ICD-9: 285.9 06/14/2019 Active Chronic atrial fibrillation ICD-10: I48.20 ICD-9: 427.31 03/20/2020 Active Essential (primary) hypertension ICD-10: I10 ICD-9: [...] Instructions isosorbide mononitrate 10 mg tablet RxNorm: 684231 Take 1 Tablet(s) Oral two times a day 08/08/2021 No Stop Date Active losartan 100 mg tablet RxNorm: 144360 Take 1 Tablet(s) Oral QD 07/2411/02/2021 Active amoxicillin 500 mg capsule RxNorm: 362769 4 Capsule(s) Oral QD 1hr prior to dental cleaning 08/05/2021 08/05/2021 Inactive levothyroxine 50 mcg tablet RxNorm: 571205 TAKE 1 TABLE T BY MOUTH EVERY DAY. RECHECK LABS IN 2 MONTHS 08/04/2021 10/02/2021 Active potassium chloride ER 10 mEq tablet,extended release RxNorm: 202535 TAKE 1 TABLET BY MOUTH EVERY DAY 07/14/2021 10/11/2021 Active spironolactone 25 mg tablet RxNorm: 833261 1/2 Tablet(s) Oral QD No Stop Date Active isosorbide mononitrate 10 mg tablet RxNorm: 703027 Take 1 Tablet(s) Oral two times a day 05/16/2021 05/16/2021 Inactive isosorbide mononitrate ER 30 mg tablet,extended release 24 h r RxNorm: 017571 TABLET(S) 1 TABLET(S) PO NEEDED Tablet(s) Oral 05/16/2021 08/07/2021 Inactive Patient requests 90 days supply furosemide 40 mg tablet RxNorm: 345280 TAKE 1 TABLET BY MOUTH E VERY MORNING 05/07/2021 08/04/2021 Inactive isosorbide mononitrate 10 mg tablet RxNorm: 513651 Take 1 Tablet(s) Oral two times a day 04/26/2021 05/15/2021 Inactive isosorbide mononitrate 10 mg tablet RxNorm: 662836 Take 1 Tablet(s) Oral two times a day 04/25/2021 04/25/2021 Inactive potassium chloride ER 10 mEq tablet,extended release RxNorm: 348337 TAKE 1 TABLET BY MOUTH EVERY DAY 04/19/2021 04/19/2021 Inactive Coumadin 4 mg tablet RxNorm: 817111 1 Tablet(s) Oral Thursday04/11/2021 07/10/2021 Inactive Coumadin 2 mg tablet RxNorm: 927903 1 Tablet(s) Oral on Thursday and Thursday04/11/2021 07/10/2021 Inactive carvedilol 25 mg tablet RxNorm: 946011 1 Tablet(s) Oral two antolin es a day 04/03/2021 09/29/2021 Active Coumadin 2 mg tablet RxNorm: 383166 TAKE 1 TABLET BY [facility] ON THURSDAY AND Thursday03/26/2021 04/10/2021 Inactive Coumadin 4 mg tablet RxNorm: 288185 1 Tablet(s) Oral QD 02/26/2021 Inactive levothyroxine 50 mcg tablet RxNorm: 433817 1 Tablet(s) Oral QD Recheck labs in 2 months 02/26/2021 02/26/2021 Inactive Recheck labs in 2 months levothyroxine 50 mcg tablet RxNorm: 937581 1 Tablet(s) Oral QD Recheck labs in 2 months 02/26/2021 02/25/2021 Inactive Recheck labs in 2 months losartan 100 mg tablet RxNorm: 031029 TAKE 1 TABLET BY MOUTH 02/22/2021 08/20/2021 Inactive spironolactone 25 mg tablet RxNorm: 535352 1 Tablet(s) Oral QD 01/2303/04/2021 Inactive isosorbide mononitrate 10 mg tablet RxNorm: 566745 1 Ta blet(s) Oral two times a day 02/19/2021 02/25/2021 Inactive famotidine 20 mg tablet RxNorm: 060465 1 Tablet(s) Oral QD 02/20/2003/04/2021 Inactive levothyroxine 25 mcg tablet RxNorm: 940535 1 Tablet(s) Oral QD 03/0 07/202102/25/2021 Inactive atorvastatin 40 mg tablet RxNorm: 478334 1 Tablet(s) Or al QPM replaces pravastatin 01/29/2021 07/27/2021 Inactive furosemide 40 mg tablet RxNorm: 842658 TAKE 1 TABLET BY MOUTH E VERY MORNING 01/28/2021 01/28/2021 Inactive prednisone 10 mg tablet RxNorm: 135131 1 Tablet(s) Oral two antolin es a day 01/16/2021 01/19/2021 Inactive atorvastatin 40 mg tablet RxNorm: 996789 1 Tablet(s) Or al QPM replaces pravastatin 12/31/2020 01/28/2021 Inactive carvedilol 25 mg tablet RxNorm: 176952 TAKE 1 TABLET BY MOUTH T WICE DAILY 12/31/2020 04/02/2021 Inactive potassium chloride ER 10 mEq tablet,extended release RxNorm: 695734 TAKE 1 TABLET BY MOUTH EVERY DAY 12/31/2020 12/31/2020 Inactive losartan 100 mg tablet RxNorm: 046639 1 Tablet(s) Oral QD 12/03/2020 02/21/2021 Inactive Coumadin 4 mg tablet RxNorm: 087538 TAKE 1 TABLET BY [facility] THURSDAY THROUGH Thursday11/30/2020 02/25/2021 Inactive levothyroxine 25 mcg tablet RxNorm: 376374 1 Tablet(s) Oral QD 10/2401/28/2021 Inactive famotidine 20 mg tablet RxNorm: 422361 1 Tablet(s) Oral QD 11/19/20 20 01/15/2021 Inactive famotidine 20 mg tablet RxNorm: 487465 1 Tablet(s) Oral QD 11/19/20 20 11/18/2020 Inactive levothyroxine 50 mcg tablet RxNorm: 241442 [facility] 11/06/2020 01/29/2021 Inactive furosemide 40 mg tablet RxNorm: 076480 TAKE 1 TABLET BY MOUTH E VERY MORNING 11/05/2020 01/27/2021 Inactive atorvastatin 40 mg tablet RxNorm: 037066 1 Tablet(s) Or al QPM replaces pravastatin 10/22/2020 12/30/2020 Inactive atorvastatin 40 mg tablet RxNorm: 200990 1 Tablet(s) Or al QPM replaces pravastatin 10/22/2020 10/21/2020 Inactive spironolactone 25 mg tablet RxNorm: 699004 1 Tablet(s) Oral QAM 01/15/2021 Inactive carvedilol 25 mg tablet RxNorm: 022478 TAKE 1 TABLET BY MOUTH T WICE DAILY 10/04/2020 12/30/2020 Inactive pravastatin 40 mg tablet RxNorm: 730119 TAKE 1 TABLET BY MOUTH EVERY DAY 10/04/2020 12/31/2020 Inactive potassium chloride ER 10 mEq tablet,extended release RxNorm: 298632 TAKE 1 TABLET BY MOUTH EVERY DAY 10/04/2020 12/30/2020 Inactive isosorbide mononitrate ER 30 mg tablet,extended release 24 h r RxNorm: 209863 TABLET(S) 1 TABLET(S) PO NEEDED Oral 10/04/2020 02/18/2021 Inactive Patient requests 90 days supply furosemide 40 mg tablet RxNorm: 490449 TAKE 1 TABLET BY MOUTH E VERY MORNING 10/01/2020 11/04/2020 Inactive losartan 100 mg tablet RxNorm: 565472 TAKE 1 TABLET BY MOUTH 09/19/2020 12/02/2020 Inactive amlodipine 5 mg tablet RxNorm: 121621 1 Tablet(s) Oral QD 08/27/2020 11/11/2020 Inactive spironolactone 25 mg tablet RxNorm: 074460 1 Tablet(s) Oral QAM 03/202010/21/2020 Inactive levothyroxine 50 mcg tablet RxNorm: 287654 TAKE 1 TABLET BY ENE TH EVERY DAY 08/07/2020 11/04/2020 Inactive levothyroxine 50 mcg tablet RxNorm: 974607 TAKE 1 TABLET BY ENE TH EVERY DAY 08/06/2020 08/06/2020 Inactive amoxicillin 500 mg capsule RxNorm: 215485 4 Capsule(s) Oral QD 1hr prior to dental cleaning 07/31/2020 07/30/2020 Inactive amoxicillin 500 mg capsule RxNorm: 517478 4 Capsule(s) Oral QD 1hr prior to dental cleaning 07/31/2020 07/31/2020 Inactive potassium chloride ER 10 mEq tablet,extended release RxNorm: 652834 TAKE 1 TABLET BY MOUTH EVERY DAY 07/23/2020 10/03/2020 Inactive pravastatin 40 mg tablet RxNorm: 601213 TAKE 1 TABLET BY MOUTH EVERY DAY 07/23/2020 10/03/2020 Inactive carvedilol 25 mg tablet RxNorm: 552586 TAKE 1 TABLET BY MOUTH T WICE DAILY 07/23/2020 10/03/2020 Inactive losartan 100 mg tablet RxNorm: 396617 TAKE 1 TABLET BY MOUTH EV RANID DAY 06/27/2020 09/18/2020 Inactive furosemide 40 mg tablet RxNorm: 693108 TAKE 1 TABLET BY MOUTH E VERY MORNING 06/08/2020 09/30/2020 Inactive Coumadin 4 mg tablet RxNorm: 191475 1 Tablet(s) Oral Thursday thr thursday06/07/2020 11/29/2020 Inactive Coumadin 2 mg tablet RxNorm: 570625 1 Tablet(s) Oral on and Thursday03/20/2020 03/19/2020 Inactive Coumadin 4 mg tablet RxNorm: 535732 1 Tablet(s) Oral Thursday thr thursday03/20/2020 06/06/2020 Inactive losartan 100 mg tablet RxNorm: 264369 TAKE 1 TABLET BY MOUTH EV RANDI DAY 03/20/2020 06/26/2020 Inactive Coumadin 2 mg tablet RxNorm: 681649 1 Tablet(s) Oral on and Thursday03/20/2020 02/25/2021 Inactive furosemide 40 mg tablet RxNorm: 485173 1 Tablet(s) Oral [facility] 020 06/07/2020 Inactive pravastatin 40 mg tablet RxNorm: 745020 TAKE 1 TABLET BY MOUTH EVERY DAY 02/07/2020 07/22/2020 Inactive losartan 100 mg tablet RxNorm: 769922 TAKE 1 TABLET BY MOUTH EV RANDI DAY 02/01/2020 03/19/2020 Inactive losartan 100 mg tablet RxNorm: 580092 TAKE 1 TABLET BY MOUTH EV RANDI DAY 01/17/2020 01/31/2020 Inactive Coumadin 2 mg tablet RxNorm: 057133 1 Tablet(s) Oral on and Thursday12/15/2019 12/15/2019 Inactive furosemide 40 mg tablet RxNorm: 980698 TAKE 1 TABLET BY MOUTH E VERY MORNING 12/14/2019 03/12/2020 Inactive pravastatin 40 mg tablet RxNorm: 620315 TAKE 1 TABLET BY MOUTH EVERY DAY 11/27/2019 02/06/2020 Inactive losartan 100 mg tablet RxNorm: 158679 1 Tablet(s) Oral QD 11/10/2019 01/16/2020 Inactive isosorbide mononitrate ER 30 mg tablet,extended release 24 h r RxNorm: 106989 TABLET(S) 1 TABLET(S) PO NEEDED 11/10/2019 05/08/2020 Inactive Patient requests 90 days supply carvedilol 25 mg tablet RxNorm: 898604 1 Tablet(s) Oral two antolin es a day 11/10/2019 05/08/2020 Inactive Coumadin 2 mg tablet RxNorm: 017868 1 Tablet(s) Oral on and Thursday11/10/2019 12/14/2019 Inactive losartan 100 mg tablet RxNorm: 027676 1 Tablet(s) Oral QD 11/10/2019 11/09/2019 Inactive levothyroxine 50 mcg tablet RxNorm: 663830 1 Tablet(s) Oral QD 10/2310/21/2020 Inactive Coumadin 4 mg tablet RxNorm: 153864 1 Tablet(s) Oral Thursday thr thursday11/10/2019 11/10/2019 Inactive losartan 50 mg tablet RxNorm: 694821 2 Tablet(s) Oral QD 11/01/2019 1 01/10/2019 Inactive potassium chloride ER 10 mEq capsule,extended release RxNorm : 091092 1 Capsule(s) Oral QD 10/26/2019 12/14/2019 Inactive potassium chloride ER 10 mEq tablet,extended release RxNorm: 194167 1 TABLET(S) ORAL QD 10/22/2019 04/18/2020 Inactive Replaces PA on 1 0MEQ Capsules Aspir-81 mg tablet,delayed release RxNorm: 570836 1 Tablet(s) O ral QD 10/11/2019 No Stop Date Active cyclobenzaprine 5 mg tablet RxNorm: 287192 1 Tablet(s) Oral two times a day as needed for muscle spasm 10/11/2019 03/19/2020 Inactive Coumadin 4 mg tablet RxNorm: 812573 1 Tablet(s) Oral Mo through Thursday and 1/2 tablet (2mg) on Sat/Sun 10/11/2019 11/09/2019 Inactive potassium chloride ER 10 mEq tablet,extended release RxNorm: 738303 1 Tablet(s) Oral QD 09/22/2019 09/21/2019 Inactive Replaces PA on 1 0MEQ Capsules potassium chloride ER 10 mEq tablet,extended release RxNorm: 896374 1 Tablet(s) Oral QD 09/22/2019 10/10/2019 Inactive Replaces PA on 1 0MEQ Capsules potassium chloride ER 10 mEq capsule,extended release RxNorm : 823398 1 Capsule(s) Oral QD 09/21/2019 09/21/2019 Inactive carvedilol 25 mg tablet RxNorm: 431110 1 Tablet(s) Oral two antolin es a day 08/23/2019 11/09/2019 Inactive isosorbide mononitrate ER 30 mg tablet,extended release 24 h r RxNorm: 785576 TABLET(S) 1 TABLET(S) PO NEEDED 08/22/2019 10/04/2020 Inactive Patient requests 90 days supply isosorbide mononitrate ER 30 mg tablet,extended release 24 h r RxNorm: 213883 Tablet(s) 1 TABLET(S) PO NEEDED 08/16/2019 08/21/2019 Inactive Patient requests 90 days supply levothyroxine 50 mcg tablet RxNorm: 043854 1 Tablet(s) PO QD 201811/09/2019 Inactive isosorbide mononitrate ER 30 mg tablet,extended release 24 h r RxNorm: 870977 Tablet(s) 1 TABLET(S) PO NEEDED 06/27/2019 08/15/2019 Inactive Patient requests 90 days supply isosorbide mononitrate ER 30 mg tablet,extended release 24 h r RxNorm: 904577 1 Tablet(s) PO QD as needed 06/27/2019 06/27/2019 Inactive Neris ent requests 90 days supply carvedilol 25 mg tablet RxNorm: 100089 1 TABLET(S) PO BID 06/27/2019 08/22/2019 Inactive furosemide 40 mg tablet RxNorm: 020200 1 Tablet(s) PO QAM 06/21/2019 12/13/2019 Inactive carvedilol 25 mg tablet RxNorm: 661505 1 Tablet(s) PO BID 05/13/2019 06/26/2019 Inactive Xanax 0.25 mg tablet RxNorm: 568783 1/2 Tablet(s) PO Q6H as needed 05/13/2019 09/07/2019 Inactive levothyroxine 50 mcg tablet RxNorm: 349454 1 Tablet(s) PO QD 201808/07/2019 Inactive losartan 50 mg tablet RxNorm: 867282 1 Tablet(s) PO QD 04/26/2019 Inactive losartan 50 mg tablet RxNorm: 085681 1 Tablet(s) PO QD 04/20/201901/2019 Inactive pravastatin 40 mg tablet RxNorm: 663835 1 Tablet(s) PO QD 04/07/2019 06/05/2019 Inactive isosorbide mononitrate ER 30 mg tablet,extended release 24 h r RxNorm: 795327 1 Tablet(s) PO as needed 04/07/2019 04/06/2019 Inactive isosorbide mononitrate ER 30 mg tablet,extended release 24 h r RxNorm: 454809 1 TABLET(S) PO NEEDED 04/07/2019 06/26/2019 Inactive Patient requests 90 days supply losartan 50 mg tablet RxNorm: 453196 1 Tablet(s) PO QD 03/22/2019 Inactive Prolia subcutaneous RxNorm: 840488 subcutaneous 02/19/2021 A ctive carvedilol 25 mg tablet RxNorm: 523997 1 Tablet(s) PO BID 05/13/2019 05/12/2019 Inactive losartan 50 mg tablet RxNorm: 381070 1 Tablet(s) PO QD 03/22/2019 Inactive Ventolin HFA 90 mcg/actuation aerosol inhaler RxNorm: 378004 1-2 Puff(s) INH as needed 09/08/2019 09/07/2019 Inactive furosemide 40 mg tablet RxNorm: 510155 1 Tablet(s) PO QAM 06/21/2019 06/20/2019 Inactive pravastatin 40 mg tablet RxNorm: 641908 1 Tablet(s) PO QD 04/07/2019 04/06/2019 Inactive Coumadin 2 mg tablet RxNorm: 461298 1 Tablet(s) PO Mon, Fri, Sat and Sun then 2 tablets (4mg) on , Thu and 10/11/2019 10/10/2019 Inactive isosorbide mononitrate ER 30 mg tablet,extended release 24 h r RxNorm: 883732 Tablet(s) PO as needed 04/07/2019 04/06/2019 Inactive Women's Multivitamin 18 mg iron-400 mcg-500 mg tablet RxNorm : 1 Tablet(s) PO QD 09/08/2019 09/07/2019 Inactive Vitamin D3 1000 units Capsule RxNorm: 3 Capsule(s) PO QD 9 09/07/2019 Inactive vitamin B complex capsule RxNorm: 1 Capsule(s) PO QD 09/08/2019 Inactive potassium chloride ER 10 mEq capsule,extended release RxNorm : 680080 1 Capsule(s) PO QD 09/21/2019 09/20/2019 Inactive levothyroxine 50 mcg tablet RxNorm: 669845 1 Tablet(s) PO QD 201804/25/2019 Inactive Medication Administered No Medication Administered data Immunizations Vaccine Codes Date Status Influenza CVX: 135 07/06/2020 Pneumovax CVX: 33 02/03/2020 Influenza CVX: 135 07/02/2019 Results Observation Observation Code Item Item Code Result Date S ervice Location PT 5050000 PT 28.3 Seconds 07/19/2021 Unknow n PT 3686003 INR 2.6 07/19/2021 Unknown COMPREHENSIVE METABOLIC 94187 AST 20 U/L 2020 Unknown COMPREHENSIVE METABOLIC 15502 ALT 16 U/L 2020 Unknown COMPREHENSIVE METABOLIC 16249 BUN 35 mg/dL 2020 Unknown COMPREHENSIVE METABOLIC 65357 ALBUMIN 4.1 g/dL 2020 Unknown COMPREHENSIVE METABOLIC 71331 CHLORIDE 105 mmol/L 06/20 Unknown COMPREHENSIVE METABOLIC 97405 Bili Total 1.1 mg/dL 06/20 Unknown COMPREHENSIVE METABOLIC 56154 ALK PHOS 103 U/L 2020 Unknown COMPREHENSIVE METABOLIC 63457 SODIUM 139 mmol/L 06/20 Unknown COMPREHENSIVE METABOLIC 24869 CREATININE 0.99 mg/dL 05/24 Unknown COMPREHENSIVE METABOLIC 16599 CALCIUM 8.8 mg/dL 2020 Unknown COMPREHENSIVE METABOLIC 68637 POTASSIUM 4.7 mmol/L 06/20 Unknown COMPREHENSIVE METABOLIC 57678 Total Protein 6.2 g/dL Unknown COMPREHENSIVE METABOLIC 54942 Glucose 83 mg/dL 2020 Unknown COMPREHENSIVE METABOLIC 30820 Bicarbonate 27 mmol/L 05/24 Unknown COMPREHENSIVE METABOLIC 73835 AGAP 7 mmol/L 2020 Unknown COMPLETE BLOOD COUNT [id number] WBC 4.5 10e9/L 06/20/20 21 Unknown COMPLETE BLOOD COUNT [id number] RBC 3.99 10e12/L 2020 Unknown COMPLETE BLOOD COUNT [id number] HEMOGLOBIN 11.8 g/dL 06/20/20 21 Unknown COMPLETE BLOOD COUNT [id number] HEMATOCRIT 36.6 % 06/20/20 21 Unknown COMPLETE BLOOD COUNT [id number] MCV 91.7 fL 1 Unknown COMPLETE BLOOD COUNT 5058190 MCH 29.6 pg 1 Unknown COMPLETE BLOOD COUNT [id number] MCHC 32.2 g/dL 1 Unknown COMPLETE BLOOD COUNT [id number] PLATELET COUNT 180 10e9/L Unknown COMPLETE BLOOD COUNT 0793636 Mean Plt Volume 11.1 fL Unknown COMPLETE BLOOD COUNT [id number] Neut Auto 64.7 % 1 Unknown COMPLETE BLOOD COUNT [id number] Lymph Auto 19.6 % 06/20/20 21 Unknown COMPLETE BLOOD COUNT 0037032 [place] Auto 13.5 % 1 Unknown COMPLETE BLOOD COUNT [id number] RDW 15.1 % 1 Unknown COMPLETE BLOOD COUNT 9059656 Eos Auto 1.8 % 1 Unknown COMPLETE BLOOD COUNT 5808995 Baso Auto 0.4 % 1 Unknown COMPLETE BLOOD COUNT 2147698 Neutrophil Abs 2.91 10e9/L Unknown COMPLETE BLOOD COUNT [id number] Lymphocyte Abs 0.88 10e9/L Unknown COMPLETE BLOOD COUNT [id number] Monocyte Abs 0.61 10e9/L 05/24 Unknown COMPLETE BLOOD COUNT [id number] Eosinophil Abs 0.08 10e9/L Unknown COMPLETE BLOOD COUNT 7184120 RDW-SD 49.5 fL 1 Unknown COMPLETE BLOOD COUNT [id number] Basophil Abs 0.02 10e9/L 05/24 Unknown GFR CALC 7432417 GFR Non Afr Amr 53 mL/min 06/20/2021 Unk nown GFR CALC [id number] GFR Afr Amr >60 mL/min 06/20/2021 Unknow n PT [id number] PT 27.4 Seconds 06/20/2021 Unknow n PT [id number] INR 2.5 06/20/2021 Unknown PT [id number] PT 25.8 Seconds 05/21/2021 Unknow n PT [id number] INR 2.3 05/21/2021 Unknown FREE T4 69833 T4 Free 1.19 ng/dL 04/11/2021 Unknown PT [id number] PT 33.6 Seconds 04/11/2021 Unknow n PT [id number] INR 3.3 04/11/2021 Unknown THYROID STIMULATING HORMONE 42195 TSH 3.912 uIU/mL 04/11/2021 Unknown PT [id number] PT 33.1 Seconds 03/15/2021 Unknow n PT [id number] INR 3.2 03/15/2021 Unknown PT [id number] PT 24.6 Seconds 05/23/2020 Unknow n PT [id number] INR 2.2 05/23/2020 Unknown PT [id number] PT 31.4 Seconds 10/26/2019 Unknow n PT [id number] INR 2.9 10/26/2019 Unknown PT [id number] PT 17.6 Seconds 10/11/2019 Unknow n PT [id number] INR 1.4 10/11/2019 Unknown PT [id number] PT 23.7 Seconds 09/08/2019 Unknow n PT [id number] INR 2.0 09/08/2019 Unknown PT [id number] PT 23.2 Seconds 07/29/2019 Unknow n PT [id number] INR 2.0 07/29/2019 Unknown PT [id number] PT 14.3 Seconds 07/18/2019 Unknow n PT [id number] INR 1.1 07/18/2019 [place] [address] Glucose 75 mg/dL 07/06 [place] [address] CREATININE 0.61 mg/dL [place] [address] BUN 15 mg/dL 07/06 [place] [address] SODIUM 142 mmol/L 06/23 [place] [address] POTASSIUM 4.0 mmol/L 06/23 [place] [address] CHLORIDE 106 mmol/L 06/23 [place] [address] Bicarbonate 28 mmol/L [place] [address] AGAP 8 mmol/L 07/06 [place] [address] CALCIUM 9.3 mg/dL 07/06 Unknown PT [id number] PT 17.4 Seconds 07/06/2019 Unknow n PT [id number] INR 1.4 07/06/2019 Unknown GFR CALC 3510972 GFR Non Afr Amr >60 mL/min 07/06/2019 Un known GFR CALC [id number] GFR Afr Amr >60 mL/min 07/06/2019 Unknow n COMPLETE BLOOD COUNT [id number] WBC 4.7 10e9/L 07/06/20 19 Unknown COMPLETE BLOOD COUNT [id number] RBC 4.19 10e12/L 2018 Unknown COMPLETE BLOOD COUNT [id number] HEMOGLOBIN 12.6 g/dL 07/06/20 19 Unknown COMPLETE BLOOD COUNT [id number] HEMATOCRIT 39.4 % 07/06/20 19 Unknown COMPLETE BLOOD COUNT [id number] MCV 94.0 fL 9 Unknown COMPLETE BLOOD COUNT 1544023 MCH 30.1 pg 9 Unknown COMPLETE BLOOD COUNT 2738007 MCHC 32.0 g/dL 9 Unknown COMPLETE BLOOD COUNT 4138209 PLATELET COUNT 160 10e9/L Unknown COMPLETE BLOOD COUNT 1705070 Mean Plt Volume 11.0 fL Unknown COMPLETE BLOOD COUNT 3355606 Neut Auto 56.6 % 9 Unknown COMPLETE BLOOD COUNT [id number] Lymph Auto 27.0 % 07/06/20 19 Unknown COMPLETE BLOOD COUNT [id number] [place] Auto 13.7 % 9 Unknown COMPLETE BLOOD COUNT 9640735 RDW 14.6 % 9 Unknown COMPLETE BLOOD COUNT 7587306 Eos Auto 2.1 % 9 Unknown COMPLETE BLOOD COUNT 8405183 Baso Auto 0.6 % 9 Unknown COMPLETE BLOOD COUNT [id number] Neutrophil Abs 2.66 10e9/L Unknown COMPLETE BLOOD COUNT [id number] Lymphocyte Abs 1.27 10e9/L Unknown COMPLETE BLOOD COUNT [id number] Monocyte Abs 0.64 10e9/L 06/23 Unknown COMPLETE BLOOD COUNT [id number] Eosinophil Abs 0.10 10e9/L Unknown COMPLETE BLOOD COUNT 5738401 RDW-SD 48.7 fL 9 Unknown COMPLETE BLOOD COUNT [id number] Basophil Abs 0.03 10e9/L 06/23 Unknown COMPLETE BLOOD COUNT [id number] WBC 4.6 10e9/L 06/14/20 19 Unknown COMPLETE BLOOD COUNT [id number] RBC 4.16 10e12/L 2018 Unknown COMPLETE BLOOD COUNT 5104736 HEMOGLOBIN 12.6 g/dL 06/14/20 19 Unknown COMPLETE BLOOD COUNT 5155981 HEMATOCRIT 39.1 % 06/14/20 19 Unknown COMPLETE BLOOD COUNT 4753751 MCV 94.0 fL 9 Unknown COMPLETE BLOOD COUNT 2335968 MCH 30.3 pg 9 Unknown COMPLETE BLOOD COUNT 9891931 MCHC 32.2 g/dL 9 Unknown COMPLETE BLOOD COUNT 7255759 PLATELET COUNT 167 10e9/L Unknown COMPLETE BLOOD COUNT 8894227 Mean Plt Volume 10.9 fL Unknown COMPLETE BLOOD COUNT 2731923 Neut Auto 59.6 % 9 Unknown COMPLETE BLOOD COUNT 8953235 Lymph Auto 24.1 % 06/14/20 19 Unknown COMPLETE BLOOD COUNT 9058049 [place] Auto 14.0 % 9 Unknown COMPLETE BLOOD COUNT 2985041 RDW 14.8 % 9 Unknown COMPLETE BLOOD COUNT 8953214 Eos Auto 1.9 % 9 Unknown COMPLETE BLOOD COUNT 4075676 Baso Auto 0.4 % 9 Unknown COMPLETE BLOOD COUNT 2631069 Neutrophil Abs 2.74 10e9/L Unknown COMPLETE BLOOD COUNT [id number] Lymphocyte Abs 1.11 10e9/L Unknown COMPLETE BLOOD COUNT [id number] Monocyte Abs 0.64 10e9/L 05/24 Unknown COMPLETE BLOOD COUNT 8211399 Eosinophil Abs 0.09 10e9/L Unknown COMPLETE BLOOD COUNT [id number] RDW-SD 49.3 fL 9 Unknown COMPLETE BLOOD COUNT [id number] Basophil Abs 0.02 10e9/L 05/24 Unknown PT [id number] PT 22.3 Seconds 06/14/2019 Unknow n PT [id number] INR 1.9 06/14/2019 Unknown COMPLETE BLOOD COUNT [id number] WBC 4.0 10e9/L 05/13/20 19 Unknown COMPLETE BLOOD COUNT 8708199 RBC 3.82 10e12/L 2018 Unknown COMPLETE BLOOD COUNT [id number] HEMOGLOBIN 11.5 g/dL 05/13/20 19 Unknown COMPLETE BLOOD COUNT 8849993 HEMATOCRIT 36.4 % 05/13/20 19 Unknown COMPLETE BLOOD COUNT [id number] MCV 95.3 fL 9 Unknown COMPLETE BLOOD COUNT 4959404 MCH 30.1 pg 9 Unknown COMPLETE BLOOD COUNT 1316614 MCHC 31.6 g/dL 9 Unknown COMPLETE BLOOD COUNT 7732762 PLATELET COUNT 175 10e9/L Unknown COMPLETE BLOOD COUNT 4430377 Mean Plt Volume 10.5 fL Unknown COMPLETE BLOOD COUNT 9443663 Neut Auto 63.2 % 9 Unknown COMPLETE BLOOD COUNT 4061988 Lymph Auto 22.0 % 05/13/20 19 Unknown COMPLETE BLOOD COUNT 9673203 [place] Auto 12.1 % 9 Unknown COMPLETE BLOOD COUNT 0987512 RDW 14.9 % 9 Unknown COMPLETE BLOOD COUNT 5476750 Eos Auto 2.2 % 9 Unknown COMPLETE BLOOD COUNT 2505109 Baso Auto 0.5 % 9 Unknown COMPLETE BLOOD COUNT 1547994 Neutrophil Abs 2.53 10e9/L Unknown COMPLETE BLOOD COUNT 6765786 Lymphocyte Abs 0.88 10e9/L Unknown COMPLETE BLOOD COUNT [id number] Monocyte Abs 0.48 10e9/L 04/24 Unknown COMPLETE BLOOD COUNT [id number] Eosinophil Abs 0.09 10e9/L Unknown COMPLETE BLOOD COUNT [id number] RDW-SD 49.6 fL 9 Unknown COMPLETE BLOOD COUNT 7021517 Basophil Abs 0.02 10e9/L 04/24 Unknown COMPREHENSIVE METABOLIC 32414 AST 18 U/L 2018 Unknown COMPREHENSIVE METABOLIC 77751 ALT 14 U/L 2018 Unknown COMPREHENSIVE METABOLIC 86621 BUN 15 mg/dL 2018 Unknown COMPREHENSIVE METABOLIC 52233 ALBUMIN 4.0 g/dL 2018 Unknown COMPREHENSIVE METABOLIC 51447 CHLORIDE 108 mmol/L 05/13 Unknown COMPREHENSIVE METABOLIC 27735 Bili Total 0.9 mg/dL 05/13 Unknown COMPREHENSIVE METABOLIC 83467 ALK PHOS 84 U/L 2018 Unknown COMPREHENSIVE METABOLIC 19234 SODIUM 142 mmol/L 05/13 Unknown COMPREHENSIVE METABOLIC 83711 CREATININE 0.72 mg/dL 04/24 Unknown COMPREHENSIVE METABOLIC 27969 CALCIUM 8.9 mg/dL 2018 Unknown COMPREHENSIVE METABOLIC 15349 POTASSIUM 4.0 mmol/L 05/13 Unknown COMPREHENSIVE METABOLIC 18973 Total Protein 5.5 g/dL Unknown COMPREHENSIVE METABOLIC 31253 Glucose 95 mg/dL 2018 Unknown COMPREHENSIVE METABOLIC 88518 Bicarbonate 27 mmol/L 04/24 Unknown COMPREHENSIVE METABOLIC 91081 AGAP 7 mmol/L 2018 Unknown GFR CALC [id number] GFR Non Afr Amr >60 mL/min 05/13/2019 Un known GFR CALC [id number] GFR Afr Amr >60 mL/min 05/13/2019 Unknow n THYROID STIMULATING HORMONE 03684 TSH 2.669 uIU/mL 05/13/2019 Unknown FREE T4 37688 T4 Free 1.19 ng/dL 05/13/2019 Unknown PT [id number] PT 24.2 Seconds 05/06/2019 Unknow n PT [id number] INR 2.1 05/06/2019 Unknown PT [id number] PT 24.1 Seconds 03/08/2019 Unknow n PT [id number] INR 2.9 03/08/2019 Unknown Procedures Procedure Codes Date ROUTINE VENIPUNCTURE CPT-4: 84452 07/19/2021 PROTHROMBIN TIME CPT-4: 93389 07/19/2021 ROUTINE VENIPUNCTURE CPT-4: 42240 06/20/2021 COMPREHEN METABOLIC PANEL CPT-4: 58855 06/20/2021 COMPLETE CBC W/AUTO DIFF WBC CPT-4: 36405 06/20/2021 PROTHROMBIN TIME CPT-4: 68803 06/20/2021 PT CPT-4: 0297919 05/16/2021 ROUTINE VENIPUNCTURE CPT-4: 51095 05/16/2021 ROUTINE VENIPUNCTURE CPT-4: 71985 04/11/2021 PROTHROMBIN TIME CPT-4: 20289 04/11/2021 ASSAY OF FREE THYROXINE CPT-4: 58492 04/11/2021 ASSAY THYROID STIM HORMONE CPT-4: 38495 04/11/2021 ROUTINE VENIPUNCTURE CPT-4: 55462 03/15/2021 PT CPT-4: 6107947 03/15/2021 ROUTINE VENIPUNCTURE CPT-4: 75407 02/22/2021 COMPREHEN METABOLIC PANEL CPT-4: 28350 02/22/2021 ASSAY OF FREE THYROXINE CPT-4: 57801 02/22/2021 ASSAY THYROID STIM HORMONE CPT-4: 29614 02/22/2021 COMPLETE CBC W/AUTO DIFF WBC CPT-4: 57822 02/22/2021 PROTHROMBIN TIME CPT-4: 62143 02/22/2021 LIPID PANEL CPT-4: 39795 02/22/2021 PPPS, subseq visit CPT-4: G0439 09/26/2020 ROUTINE VENIPUNCTURE CPT-4: 59697 05/23/2020 PROTHROMBIN TIME CPT-4: 10320 05/23/2020 ROUTINE VENIPUNCTURE CPT-4: 75961 01/20/2020 PT CPT-4: 5660994 01/20/2020 ROUTINE VENIPUNCTURE CPT-4: 26684 12/15/2019 PROTHROMBIN TIME CPT-4: 51968 12/15/2019 ROUTINE VENIPUNCTURE CPT-4: 00362 11/10/2019 PROTHROMBIN TIME CPT-4: 10202 11/10/2019 PROTHROMBIN TIME CPT-4: 53675 10/26/2019 ROUTINE VENIPUNCTURE CPT-4: 43978 10/26/2019 ROUTINE VENIPUNCTURE CPT-4: 27543 10/11/2019 PT CPT-4: 2703576 10/11/2019 PPPS, initial visit CPT-4: G0438 09/20/2019 ROUTINE VENIPUNCTURE CPT-4: 97031 09/08/2019 PT CPT-4: 1115640 09/08/2019 THER/PROPH/DIAG INJ SC/IM CPT-4: 82800 09/08/2019 TRIAMCINOLONE ACET INJ NOS CPT-4: J3301 09/08/2019 ROUTINE VENIPUNCTURE CPT-4: 07266 07/29/2019 PT CPT-4: 5640739 07/29/2019 ROUTINE VENIPUNCTURE CPT-4: 55438 07/18/2019 PT CPT-4: 6537960 07/18/2019 METABOLIC PANEL TOTAL CA CPT-4: 94209 07/06/2019 COMPLETE CBC W/AUTO DIFF WBC CPT-4: 75112 07/06/2019 PROTHROMBIN TIME CPT-4: 53484 07/06/2019 ROUTINE VENIPUNCTURE CPT-4: 95692 06/14/2019 PROTHROMBIN TIME CPT-4: 89418 06/14/2019 COMPLETE CBC W/AUTO DIFF WBC CPT-4: 40032 06/14/2019 ROUTINE VENIPUNCTURE CPT-4: 28968 05/13/2019 COMPREHEN METABOLIC PANEL CPT-4: 36384 05/13/2019 COMPLETE CBC W/AUTO DIFF WBC CPT-4: 97579 05/13/2019 ASSAY THYROID STIM HORMONE CPT-4: 18822 05/13/2019 ASSAY OF FREE THYROXINE CPT-4: 79752 05/13/2019 PT CPT-4: 1555877 05/06/2019 ROUTINE VENIPUNCTURE CPT-4: 07355 05/06/2019 PT CPT-4: 4049220 04/07/2019 ROUTINE VENIPUNCTURE CPT-4: 10988 04/07/2019 ROUTINE VENIPUNCTURE CPT-4: 18793 03/08/2019 PROTHROMBIN TIME CPT-4: 36524 03/08/2019 Vital Signs Date Vital 08/20/2021 Blood Pressure 1: 127/69 Code: 8480-6 Heart Rate 1: 84 bpm Respiratory Rate: 17 bpm SpO2: 98% Temperature: 36.7 (C) / 98.1 (F) We ight: 208 lbs Code: 27986-4 05/16/2021 Blood Pressure 1: 136/64 Code: 8480-6 BMI: 37.0 Code: 23149-2 Heart Rate 1: 61 bpm Height: 5'3" Code: 8302-2 Respiratory Rate: 16 bpm SpO2: 98% Temperature: 36.2 (C) / 97.1 (F) Weight: 212 lbs Code: 19015-0 03/05/2021 Blood Pressure 1: 134/76 Code: 8480-6 Heart Rate 1: 66 bpm Respiratory Rate: 16 bpm SpO2: 100% Temperature: 37.1 (C) / 98.7 (F) We ight: 203 lbs Code: 30614-2 02/19/2021 Blood Pressure 1: 126/70 Code: 8480-6 BMI: 35.4 Code: 82656-2 Heart Rate 1: 72 bpm Height: 5'3" Code: 8302-2 Respiratory Rate: 16 bpm SpO2: 99% Temperature: 36.3 (C) / 97.3 (F) Weight: 203 lbs Code: 66473-7 01/16/2021 Blood Pressure 1: 112/74 Code: 8480-6 Heart Rate 1: 76 bpm Respiratory Rate: 20 bpm Temperature: 36.7 (C) / 98.0 (F) Weight: 205 lbs Code : 56366-5 11/19/2020 Blood Pressure 1: 120/78 Code: 8480-6 Heart Rate 1: 88 bpm Temperature: 36.6 (C) / 97.8 (F) 11/12/2020 Blood Pressure 1: 110/57 Code: 8480-6 Heart Rate 1: 68 bpm Respiratory Rate: 15 bpm SpO2: 100% Weight: 202 lbs Code: 81206 -7 10/12/2020 Blood Pressure 1: 114/70 Code: 8480-6 Heart Rate 1: 84 bpm Respiratory Rate: 18 bpm SpO2: 98% Temperature: 36.7 (C) / 98.0 (F) 09/26/2020 Blood Pressure 1: 120/72 Code: 8480-6 BMI: 35.2 Code: 88747-3 Heart Rate 1: 76 bpm Height: 5'3" Code: 8302-2 Respiratory Rate: 20 bpm SpO2: 97% Temperature: 36.7 (C) / 98.0 (F) Weight: 202 lbs Code: 66526-6 08/27/2020 Blood Pressure 1: 126/82 Code: 8480-6 Heart Rate 1: 80 bpm Respiratory Rate: 20 bpm Temperature: 36.2 (C) / 97.1 (F) Weight: 198 lbs Code : 90572-7 05/23/2020 Blood Pressure 1: 120/78 Code: 8480-6 Heart Rate 1: 68 bpm Respiratory Rate: 20 bpm SpO2: 97% Temperature: 36.4 (C) / 97.5 (F) We ight: 200 lbs Code: 46101-0 05/02/2020 Blood Pressure 1: 133/81 Code: 8480-6 Heart Rate 1: 74 bpm Weight: 202 lbs Code: 21193-3 12/15/2019 Blood Pressure 1: 126/82 Code: 8480-6 Heart Rate 1: 64 bpm Respiratory Rate: 20 bpm SpO2: 97% Temperature: 36.6 (C) / 97.8 (F) We ight: 201 lbs Code: 36295-8 11/03/2019 Blood Pressure 1: 142/82 Code: 8480-6 [...] / 98.1 (F) Weight: 204 lbs Code: 03357-5 09/20/2019 Blood Pressure 1: 122/68 Code: 8480-6 BMI: 35.0 Code: 92024-7 Heart Rate 1: 72 bpm Height: 5'3" Code: 8302-2 Respiratory Rate: 18 bpm SpO2: 95% Temperature: 36.8 (C) / 98.3 (F) Weight: 201 lbs Code: 77773-8 09/08/2019 Blood Pressure 1: 118/72 Code: 8480-6 Heart Rate 1: 82 bpm SpO2: 97% Temperature: 36.3 (C) / 97.4 (F) Weight: 208 lbs Code: 60099-8 06/14/2019 Blood Pressure 1: 128/84 Code: 8480-6 Heart Rate 1: 72 bpm Respiratory Rate: 20 bpm SpO2: 98% Temperature: 36.7 (C) / 98.1 (F) We ight: 209 lbs Code: 95745-3 05/13/2019 Blood Pressure 1: 144/90 Code: 8480-6 Heart Rate 1: 88 bpm Respiratory Rate: 24 bpm SpO2: 96% Temperature: 37.1 (C) / 98.8 (F) We ight: 210 lbs Code: 37857-5 05/02/2019 Blood Pressure 1: 128/80 Code: 8480-6 Heart Rate 1: 84 bpm Respiratory Rate: 20 bpm SpO2: 95% Temperature: 36.6 (C) / 97.9 (F) We ight: 209 lbs Code: 95509-6 03/22/2019 Blood Pressure 1: 122/70 Code: 8480-6 He art Rate 1: 85 bpm 03/08/2019 Blood Pressure 1: 114/78 Code: 8480-6 BMI: 36.1 Code: 41776-9 Heart Rate 1: 76 bpm Height: 5'3" Code: 8302-2 Respiratory Rate: 20 bpm SpO2: 97% Temperature: 37.1 (C) / 98.8 (F) Weight: 207 lbs Code: 90052-3 Functional Status No Functional Status data Reason For Visit Reason For Visit Effective Dates Notes abdominal pain 08/20/2021 ~generic 05/16/2021 Patient needs [...] woman exam (65+ years) 09/26/2020 Medicare [facility]--due for mammogram follow up 08/27/2020 follow up [...] blood pressure check 03/22/2019 ~generic 03/08/2019 New Patient---canelolizett melodie visit Encounters Encounter Performer Location Codes Date () OFFICE/OUTPATIENT VISIT EST Diagnosis: Breast pain, left[ICD10: N64.4] Diagnosis: Left breast lump[ICD10: N63.20] Remedios ANGELES CPT-4: 27292 08/20/2021 ([id number]) NURSE/OUTPATIENT VISIT EST Diagnosis: Long-term (current) use of anticoagulants, INR goal 2.0-3.0[ICD10: Z79.01] Jeanie JENNINGSLINE David BLACK Veratect CPT-4: 58074 07/19/2021 ([id number]) NURSE/OUTPATIENT VISIT EST Diagnosis: Essential (primary) hypertension[ICD10: I10] Diagnosis: Chronic atrial fibrillation[ICD10: I48.20] Diagnosis: Long-term (current) use of anticoagulants, INR goal 2.0-3.0[ICD10: Z79.01] Diagnosis: Anemia, unspecified[ICD10: D64.9] Jeanie TURK Fidel BLACK Veratect CPT-4: 26593 06/20/2021 ([id number]) OFFICE/OUTPATIENT VISIT EST Diagnosis: Long-term (current) use of anticoagulants, INR goal 2.0-3.0[ICD10: Z79.01] Diagnosis: Essential (primary) hypertension[ICD10: I10] Diagnosis: Chronic congestive heart failure with left ventricular diastolic dysfunction[ICD10: I50.32] Diagnosis: Severe obesity (BMI 35.0-39.9) with comorbidity[ICD10: E66.01] Diagnosis: Chronic atrial fibrillation[ICD10: I48.20] Diagnosis: Obstructive sleep apnea syndrome[ICD10: G47.33] Remedios Buenrostrohollis JEANIE BLACK Veratect CPT-4: 67271 05/16/2021 ([id number]) NURSE/OUTPATIENT VISIT EST Diagnosis: Hypothyroidism, unspecified[ICD10: E03.9] Diagnosis: Long-term (current) use of anticoagulants, INR goal 2.0-3.0[ICD10: Z79.01] Jeanie Avendañoalberta JEANIE David BLACK Veratect CPT-4: 17212 04/11/2021 ([id number]) NURSE/OUTPATIENT VISIT EST Diagnosis: Long-term (current) use of anticoagulants, INR goal 2.0-3.0[ICD10: Z79.01] Jeanie Avendañoalberta JEANIE David BLACK Veratect CPT-4: 19234 03/15/2021 ([id number]) OFFICE/OUTPATIENT VISIT EST Diagnosis: Essential hypertension[ICD10: I10] Diagnosis: Cheilitis[ICD10: K13.0] Diagnosis: Pulmonary hypertension[ICD10: I27.20] Jeanie Donisanirudh ANTON BLACK [address] [facility] CPT-4: 23962 03/05/2021 ([id number]) NURSE/OUTPATIENT VISIT EST Diagnosis: Essential (primary) hypertension[ICD10: I10] Diagnosis: Hypothyroidism, unspecified[ICD10: E03.9] Diagnosis: Long-term (current) use of anticoagulants, INR goal 2.0-3.0[ICD10: Z79.01] Diagnosis: Mixed hyperlipidemia[ICD10: E78.2] Jeanie JENNINGSPARAG RAFI David BLACK Veratect CPT-4: 28400 02/22/2021 ([id number]) OFFICE/OUTPATIENT VISIT EST Diagnosis: Cheilitis[ICD10: K13.0] Diagnosis: Encounter for medication review and counseling[ICD10: Z71.89] Diagnosis: Long-term (current) use of anticoagulants, INR goal 2.0-3.0[ICD10: Z79.01] Diagnosis: Hypothyroidism, unspecified[ICD10: E03.9] Diagnosis: Mixed hyperlipidemia[ICD10: E78.2] Diagnosis: Severe obesity (BMI 35.0-39.9) with comorbidity[ICD10: E66.01] Diagnosis: Chronic congestive heart failure with left ventricular diastolic dysfunction[ICD10: I50.32] Remedios JENNINGSLINE OfeAxel HECTORER Veratect CPT- 4: 64333 02/19/2021 ([id number]) OFFICE/OUTPATIENT VISIT EST Diagnosis: Cheilitis[ICD10: K13.0] Jannette JENNINGSLINE S. DONISND ER [address] [facility] CPT-4: 39930 01/16/2021 ([id number]) OFFICE/OUTPATIENT VISIT EST Diagnosis: Hypotension[ICD10: I95.9] Diagnosis: Dizziness[ICD10: R42] Jannette Tiarraelva CONNELL S. DONISNDER DO C CPT-4: 84559 11/12/2020 ([id number]) OFFICE/OUTPATIENT VISIT EST Diagnosis: Thoracic back pain[ICD10: M54.6] Diagnosis: Dizziness[ICD10: R42] Jannette Tiarrapeg ORTEZQUELINE S. DONISNDER DO LL C CPT-4: 24431 10/12/2020 ([id number]) OFFICE/OUTPATIENT VISIT EST Diagnosis: Chronic atrial fibrillation[ICD10: I48.20] Diagnosis: Chronic airway obstruction, not elsewhere classified[ICD10: J44.9] Diagnosis: Essential hypertension[ICD10: I10] Jeanie JENNINGSPARAG RAFI David BLACK DO [facility] CPT-4: 02751 08/27/2020 ([id number]) OFFICE/OUTPATIENT VISIT EST Diagnosis: Essential (primary) hypertension[ICD10: I10] Diagnosis: Chronic atrial fibrillation[ICD10: I48.20] Diagnosis: COPD (chronic obstructive pulmonary disease)[ICD10: J44.9] Diagnosis: Dyspnea[ICD10: R06.00] Diagnosis: Left hip pain[ICD10: M25.552] Jeanie Black JEANIE David BLACK DO [facility] CPT-4: 09737 05/23/2020 ([id number]) NURSE/OUTPATIENT VISIT EST Diagnosis: Essential (primary) hypertension[ICD10: I10] Jeanie Black JEANIE David BLACK DO [facility] CPT-4: 03027 05/02/2020 ([id number]) OFFICE/OUTPATIENT VISIT EST Diagnosis: COPD (chronic obstructive pulmonary disease)[ICD10: J44.9] Diagnosis: Chronic atrial fibrillation[ICD10: I48.20] Diagnosis: Essential hypertension[ICD10: I10] Jeanie [facility]wilberalberta [facility] CPT-4: 00420 03/20/2020 ([id number]) NURSE/OUTPATIENT VISIT EST Diagnosis: Long-term (current) use of anticoagulants, INR goal 2.0-3.0[ICD10: Z79.01] Jeanie Black JEANIE David BLACK DO [facility] CPT-4: 03451 01/20/2020 ([id number]) OFFICE/OUTPATIENT VISIT EST Diagnosis: COPD (chronic obstructive pulmonary disease)[ICD10: J44.9] Diagnosis: Long-term (current) use of anticoagulants, INR goal 2.0-3.0[ICD10: Z79.01] Diagnosis: History of recent fall[ICD10: Z91.81] Jeanie AGUILERA OfeAxel VARUN MCCURDY [facility] CPT-4: 31647 12/15/2019 ([id number]) NURSE/OUTPATIENT VISIT EST Diagnosis: Long-term (current) use of anticoagulants, INR goal 2.0-3.0[ICD10: Z79.01] Jeanie BLACK DO [facility] CPT-4: 15605 11/10/2019 ([id number]) OFFICE/OUTPATIENT VISIT EST Diagnosis: Post concussion syndrome[ICD10: F07.81] Diagnosis: Head contusion[ICD10: S00.93XA] Diagnosis: Chronic airway obstruction, not elsewhere classified[ICD10: J44.9] Jeanie BLACK DO [employer] CPT-4: 09312 11/03/2019 ([id number]) OFFICE/OUTPATIENT VISIT EST Diagnosis: Fall as cause of accidental injury at home as place of occurrence[ICD10: W19.XXXA] Diagnosis: Headache[ICD10: R51] Diagnosis: Essential (primary) hypertension[ICD10: I10] Diagnosis: Long-term (current) use of anticoagulants, INR goal 2.0-3.0[ICD10: Z79.01] Diagnosis: Ecchymosis of left eye[ICD10: S05.12XA] Jannette BLACK Veratect CPT-4: 28683 10/31/2019 ([id number]) NURSE/OUTPATIENT VISIT EST Diagnosis: Long-term (current) use of anticoagulants, INR goal 2.0-3.0[ICD10: Z79.01] Jeanie BLACK DO [employer] CPT-4: 92355 10/26/2019 ([id number]) OFFICE/OUTPATIENT VISIT EST Diagnosis: Long-term (current) use of anticoagulants, INR goal 2.0-3.0[ICD10: Z79.01] Diagnosis: Pain in right arm[ICD10: M79.601] Diagnosis: Radiculopathy of arm[ICD10: M54.10] Jannette BLACK Veratect CPT-4: 34113 10/11/2019 ([id number]) OFFICE/OUTPATIENT VISIT EST Diagnosis: Long-term (current) use of anticoagulants, INR goal 2.0-3.0[ICD10: Z79.01] Diagnosis: Sinusitis[ICD10: J32.9] Diagnosis: Pain in right arm[ICD10: M79.601] Jannette BLACK Veratect CPT-4: 48323 09/08/2019 ([id number]) NURSE/OUTPATIENT VISIT EST Diagnosis: Chronic atrial fibrillation[ICD10: I48.2] Diagnosis: Encounter for therapeutic drug level monitoring[ICD10: Z51.81] Jeanie BLACK DO [facility] CPT-4: 77907 07/29/2019 ([id number]) NURSE/OUTPATIENT VISIT EST Diagnosis: Chronic atrial fibrillation[ICD10: I48.2] Diagnosis: Encounter for therapeutic drug level monitoring[ICD10: Z51.81] Jeanie BLACK [employer] [address] [facility] CPT-4: 01982 07/18/2019 ([id number]) NURSE/OUTPATIENT VISIT EST Diagnosis: Encounter for therapeutic drug level monitoring[ICD10: Z51.81] Diagnosis: Chronic atrial fibrillation[ICD10: I48.2] Diagnosis: Essential (primary) hypertension[ICD10: I10] Jeanie BLACK Veratect CPT-4: 41467 07/06/2019 ([id number]) OFFICE/OUTPATIENT VISIT EST Diagnosis: Encounter for therapeutic drug level monitoring[ICD10: Z51.81] Diagnosis: Anemia, unspecified[ICD10: D64.9] Diagnosis: Bitten by dog, sequela[ICD10: W54.0XXS] 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] Jeanie BLACK Veratect CPT-4: 59958 06/14/2019 ([id number]) OFFICE/OUTPATIENT VISIT EST Diagnosis: Bitten by dog, sequela[ICD10: W54.0XXS] Diagnosis: Other fatigue[ICD10: R53.83] Diagnosis: Hypothyroidism, unspecified[ICD10: E03.9] Diagnosis: Muscle weakness (generalized)[ICD10: M62.81] Diagnosis: Generalized anxiety disorder[ICD10: F41.1] Jannette BLACK Veratect CPT-4: 71231 05/13/2019 ([id number]) NURSE/OUTPATIENT VISIT EST Diagnosis: Encounter for therapeutic drug level monitoring[ICD10: Z51.81] Jeanie CONNELL OfeAxel VARUN [facility] CPT-4: 86066 05/06/2019 ([id number]) OFFICE/OUTPATIENT VISIT EST Diagnosis: Bitten by dog, sequela[ICD10: W54.0XXS] Diagnosis: Pain in right wrist[ICD10: M25.531] Diagnosis: Abrasion of right upper arm, sequela[ICD10: S40.811S] Diagnosis: Abrasion of left upper arm, sequela[ICD10: S40.812S] Jannette Mayen JEANIE Hernandez DONISWILBERALBERTA Veratect CPT-4: 73698 05/02/2019 ([id number]) NURSE/OUTPATIENT VISIT EST Diagnosis: Encounter for therapeutic drug level monitoring[ICD10: Z51.81] Jeanie CONNELL OfeAxel DONISWILBERALBERTA Veratect CPT-4: 01784 04/07/2019 ([id number]) OFFICE/OUTPATIENT VISIT NEW Diagnosis: Encounter for therapeutic drug level monitoring[ICD10: Z51.81] Diagnosis: Chronic atrial fibrillation[ICD10: I48.2] Diagnosis: Essential (primary) hypertension[ICD10: I10] Diagnosis: Abnormal findings on diagnostic imaging of heart and coronary circulation[ICD10: R93.1] Diagnosis: Other forms of dyspnea[ICD10: R06.09] Diagnosis: Hypothyroidism, unspecified[ICD10: E03.9] Diagnosis: Mixed hyperlipidemia[ICD10: E78.2] Jeanie Hernandez VARUN V[facility]ct CPT-4: 16984 03/08/2019 Plan of Care Planned Activity Notes Codes Status Date Visit Plan: 08/20/2021 Visit Diagnosis Plan: Left breast lump Discussion: [place] get US of left breast and soft tissue under breast and f/u with results. F/U for sooner for concerns. ICD-9 : 611.72 ICD-10 : N63.20 08/20/2021 Appointment: Jeanie Black WPtel: [phone] [id number] US CANCELED 08/20/2021 Appointment: Remedios [facility]el[facility] [phone] [facility] [facility] 08/20/2021 Patient Education: Patient Medication Summary Completed 08/20/2021 Appointment: Jeanie Black WPtel: [phone] [facility] US see note in chart from 08/08/21 (km) CANCELED 08/08/2021 Appointment: Jeanie Black WPtel: [phone] [facility] US LAB 07/19/2021 Appointment: Jeanie Black WPtel: [phone] [facility] US LAB 06/20/2021 Visit Diagnosis Plan: Severe obesity (BMI 35.0-39.9) w ith comorbidity Discussion: Discussed diet and exercise ICD-9 : 278.01 ICD-10 : E66.01 05/16/2021 Visit Diagnosis Plan: Obstructive sleep apnea syndrome Discussion: Per pulbautista note- order for bipap sent to [facility]- will call them to check, patient states [...] 05/16/2021 Appointment: Remedios Cavazos [facility]Ptel[facility] [phone] [facility] [facility] MEDICATION REVIEW 05/16/2021 Patient Education: Patient Medication Summary Completed 05/16/2021 Patient Education: isosorbide mononitrate- [employer] Coupon [id number] https://www.Sterio.me/sampleOasys Design Systems/resources/getCore Security TechnologiesourZivity/61/e8x1u8g6-g273-898z-x9 Completed 05/16/2021 Patient Education: High Blood Pressure Co mpleted 05/16/2021 Appointment: Jeanie Black WPtel: [address] [place], [place] [id number] US LAB 04/11/2021 Appointment: Jeanie Black WPtel: [address] [place], [place] [phone] US CANCELED 03/27/2021 Appointment: Jeanie Black WPtel: [address] [place], [place] [phone] US LAB 03/15/2021 Visit Diagnosis Plan: Pulmonary [...] : I10 03/05/2021 Appointment: Jeanie Black WPtel: [address] [place], [place] [phone] US FOLLOW UP 03/05/2021 Patient Education: spironolactone- [employer] Coupon 1 [id number] https://www.Sterio.me/iSites/resources/getResource/61/4pz75mi3-8p8u-8z25-6i Completed 03/05/2021 Appointment: Jeanie Black WPtel: [phone] FveywrccyFO02773 US LAB 02/22/2021 Visit Diagnosis Plan: Cheilitis [...] : 272.4 ICD-10 : E78.2 02/19/2021 Appointment: Dirk Remedios WPtel: [phone] MEDICATION REVIEW 02/19/2021 Patient Education: Patient [...] ICD-10 : K13.0 01/16/2021 Appointment: Jannette Mayen [address] [place] [address] ACUTE ILLNESS 01/16/2021 Appointment: Jeanie Black WPtel: [phone] [facility] BP CHECK 11/19/2020 Visit Diagnosis Plan: Hypotension [...] ICD-10 : I95.9 11/12/2020 Appointment: Jannette Mayen [address] [facility] [place] ACUTE ILLNESS 11/12/2020 Visit Diagnosis Plan: Thoracic back pain Discussion: w ill send order for PT through [facility]. call office with any new or worsening [...] ICD-10 : R42 10/12/2020 Appointment: Jannette Mayen [address] [place], [place] [id number] ACUTE ILLNESS 10/12/2020 Visit Diagnosis Plan: Chronic atrial fibrillation Disc ussion: Following routinely with cardiology ICD-9 : 427.31 ICD-10 : I48.20 09/26/2020 Visit Diagnosis Plan: Essential (primary) hypertension Discussion: Stable ICD-9 : 401.9 ICD-10 : I10 09/26/2020 Visit Diagnosis Plan: Encounter for [facility] adult medical examination without abnormal findings [...] : I50.32 09/26/2020 Appointment: Jeanie Black WPtel: [address] [place], [place] [id number] Annual Well Visit 09/26/2020 Care Plan: Referral Order SNOMED-CT : [id number] Pending 09/26/2020 Visit Diagnosis Plan: Chronic airway [...] : I48.20 08/27/2020 Appointment: Jeanie Black WPtel: [facility] [place] [facility] US FOLLOW UP 08/27/2020 Visit Diagnosis Plan: [...] : I10 05/23/2020 Appointment: Jeanie Black WPtel: [address] [place], [place] [address] FOLLOW UP 05/23/2020 Appointment: Jeanie Black WPtel: [address] [place] [address] NURSE SERVICES 05/02/2020 Visit Diagnosis Plan: Chronic [...] : J44.9 03/20/2020 Appointment: Jeanie Black WPtel: [address] [place], [place] [address] TELEMEDICINE 03/20/2020 Patient Education: Coumadin- [employer] Coupon [id number] https://www.iSites.MyStore.com/sampleOasys Design Systems/resources/getResource/61/1p518a20-53m6-1pit-3x Completed 03/20/2020 Patient Education: Coumadin- [employer] Coupon [id number] https://www.Sterio.me/iSites/resources/getResource/61/0za25a6t-7m3t-4gu6-fg Completed 03/20/2020 Appointment: Jeanie Black WPtel: [address] [place], [place] [phone] US LAB 01/20/2020 Visit Diagnosis Plan: History of recent fall Discussio n: Healing well Doing balance class at [facility] Follow Up: 3 months ICD-9 : V15.88 ICD-10 : Z91.81 12/15/2019 Visit Diagnosis Plan: COPD (chronic obstructive pulmon valeria disease) Discussion: Continue pulmonary rehab ICD-9 : 496 ICD-10 : J44.9 12/15/2019 Visit Diagnosis Plan: Long-term (current ) use of anticoagulants, INR goal 2.0-3.0 Discussion: PT/INR drawn ICD-9 : V58.61 ICD-10 : Z79.01 12/15/2019 Appointment: Jeanie Black WPtel: [address] [place], [place] [phone] US FOLLOW UP 12/15/2019 Patient Education: Coumadin- [employer] Coupon [id number] https://www.Sterio.me/iSites/resources/getResource/61/n336cwln-dg40-6nkv-9c Completed 12/15/2019 Appointment: Jeanie Black WPtel: [address] [place] [address] [place] LAB 11/10/2019 Visit Diagnosis Plan: Post [...] J44.9 11/03/2019 Appointment: Jeanie Black WPtel: [phone] FOLLOW UP 11/03/2019 Care Plan: CT HEAD/BRAIN W/O DYE LOINC : 67960-6 Pending 11/01/2019 Visit Diagnosis Plan: Essential (primary) [...] ICD-10 : S05.12XA 10/31/2019 Appointment: Jannette Mayen [address] [place] [address] Hospital Follow Up 10/31/2019 Patient Education: High Blood Pressure Co mpleted 10/31/2019 Patient Education: losartan- [employer] Coupon [id number] https://www.iSites.com/samplemd/resources/getResource/61/5f817795-7f55-0248-2p Completed 10/31/2019 Appointment: Jeanie Black WPtel: [phone] [place] [id number] FOLLOW UP 10/26/2019 Visit Diagnosis Plan: Long-term [...] : M54.10 10/11/2019 Appointment: [facility] ACUTE ILLNESS 10/11/2019 Patient Education: cyclobenzaprine- [employer] Coupon [id number] https://www.iSites.MyStore.com/samplemd/resources/getResource/61/13a0l0f4-35s0-9j83-83 Completed 10/11/2019 Visit Diagnosis Plan: Bitten by dog, sequela Discussio n: Still seeing counselor Still doing therapy--left 4th finger still not agile enough to play violin and feels like pinched nerve in neck on right--dscussed stretches, massage, accupuncture---patient had hired contract attorney ICD-9 : 906.1 ICD-10 : W54.0XXS 09/20/2019 Visit Diagnosis Plan: Encounter for [facility] adult medical examination without abnormal findings [...] E78.2 09/20/2019 Appointment: Jean[facility]Ptel[facility] [phone] [facility] [facility] 09/20/2019 Visit Diagnosis Plan: [...] ICD-10 : Z79.01 09/08/2019 Appointment: Jannette Mayen [address] [place] [address] ACUTE ILLNESS 09/08/2019 Appointment: Jeanie Black WPtel: [address] [place] [address] US CANCELED 08/16/2019 Appointment: Jeanie Black WPtel: [address] [place] [address] US LAB 07/29/2019 Appointment: Jeanie Black WPtel: [address] [place] [address] US LAB 07/18/2019 Appointment: Jeanie Black WPtel: [address] [place] [address] US LAB 07/06/2019 Visit Diagnosis Plan: Bitten [...] D64.9 06/14/2019 Appointment: Jeanie Black WPtel: [phone] [id number] US FOLLOW UP 06/14/2019 Visit Diagnosis Plan: [...] to [facility] as well to [...] ICD-10 : R53.83 05/13/2019 Appointment: Jannette Mayen [address] [place], [place] [id number] US FOLLOW UP 05/13/2019 Patient Education: carvedilol- [employer] C[employer]on [id number] https://www.sample[employer].com/samplemd/resources/getResource/61/47i8e958-6xqo-1735-1x Completed 05/13/2019 Patient Education: Xanax- [employer] C[employer]on [id number] https://www.[employer].com/samplemd/resources/getResource/61/[email or web address]-[email or web address] 1e-[email or web address].pdf Completed 05/13/2019 Appointment: Jeanie Blacktel: [address] [place], [place] [id number] US LAB 05/06/2019 Visit Diagnosis Plan: Abrasion [...] will send results to dr. portillo at [facility]. ICD-9 : 719.43 ICD-10 : M25.531 05/02/2019 Appointment: Jannette Mayen [address] [place] [address] ACUTE ILLNESS 05/02/2019 Care Plan: X-RAY EXAM OF WRIST right LOINC : [id number] Pending 05/02/2019 Appointment: Jeanie Black WPtel: [address] [place], [place] [phone] US LAB 04/07/2019 Appointment: Jeanie Black WPtel: [address] [place], [place] [id number] US BP CHECK 03/22/2019 Visit Diagnosis Plan: [...] I10 03/08/2019 Appointment: Jeanie Black WPtel: [phone] NEW PATIENT 03/08/2019 Referral: Shona Viera WPtel: [facility] [address] Referral Appointment Requested Instructions No Instructions Medical Equipment No Medical Equipment data Health Concerns Section Health Concerns data not found Goals Section Goals data not found Interventions Section Interventions data not found Health Status Evaluations/Outcomes Section Health Status Evaluations/Outcomes data not found Advance Directives No Advance Directive data
--- OUTSIDE RECORDS SUMMARY | 2021-09-19 12:41 | XMS REPORT | CCD ---
Author Author Tricia Black D.O. Organization [facility] DO [facility] Address [address] [place] [address] Phone Care Team Providers Care Whale Trainer Name Role Phone PP Unavailable CCM Unavailable Summary Purpose Interface Exchange Insurance Providers Payer name Policy type / Coverage type Covered republican ID Effective Begin Date Effective End Date WPS MEDICARE PART B [place] Medicare Part B [id number] Unknown Unknown AARP Medicare Part B [id number] Unknown Unknown Family history Grandmother Diagnosis Age [...] Unknown Retired 03/08/[address]: 794855118 Has never smoked or chewed tobacco 03/08/[address]: 712925 Currently drinks alcohol 03/08 Has the patient [...] Instructions isosorbide mononitrate 10 mg tablet RxNorm: 220357 Take 1 Tablet(s) Oral two times a day 08/08/2021 No Stop Date Active losartan 100 mg tablet RxNorm: 383892 Take 1 Tablet(s) Oral QD 07/2411/02/2021 Active amoxicillin 500 mg capsule RxNorm: 050380 4 Capsule(s) Oral QD 1hr prior to dental cleaning 08/05/2021 08/05/2021 Inactive levothyroxine 50 mcg tablet RxNorm: 252193 TAKE 1 TABLE T BY MOUTH EVERY DAY. RECHECK LABS IN 2 MONTHS 08/04/2021 10/02/2021 Active potassium chloride ER 10 mEq tablet,extended release RxNorm: 907779 TAKE 1 TABLET BY MOUTH EVERY DAY 07/14/2021 10/11/2021 Active spironolactone 25 mg tablet RxNorm: 587828 1/2 Tablet(s) Oral QD No Stop Date Active isosorbide mononitrate 10 mg tablet RxNorm: 397457 Take 1 Tablet(s) Oral two times a day 05/16/2021 05/16/2021 Inactive isosorbide mononitrate ER 30 mg tablet,extended release 24 h r RxNorm: 154412 TABLET(S) 1 TABLET(S) PO NEEDED Tablet(s) Oral 05/16/2021 08/07/2021 Inactive Patient requests 90 days supply furosemide 40 mg tablet RxNorm: 893756 TAKE 1 TABLET BY MOUTH E VERY MORNING 05/07/2021 08/04/2021 Inactive isosorbide mononitrate 10 mg tablet RxNorm: 439981 Take 1 Tablet(s) Oral two times a day 04/26/2021 05/15/2021 Inactive isosorbide mononitrate 10 mg tablet RxNorm: 069123 Take 1 Tablet(s) Oral two times a day 04/25/2021 04/25/2021 Inactive potassium chloride ER 10 mEq tablet,extended release RxNorm: 948443 TAKE 1 TABLET BY MOUTH EVERY DAY 04/19/2021 04/19/2021 Inactive Coumadin 4 mg tablet RxNorm: 992163 1 Tablet(s) Oral Thursday04/11/2021 07/10/2021 Inactive Coumadin 2 mg tablet RxNorm: 121210 1 Tablet(s) Oral on Thursday and Thursday04/11/2021 07/10/2021 Inactive carvedilol 25 mg tablet RxNorm: 962465 1 Tablet(s) Oral two antolin es a day 04/03/2021 09/29/2021 Active Coumadin 2 mg tablet RxNorm: 117429 TAKE 1 TABLET BY [facility] ON THURSDAY AND Thursday03/26/2021 04/10/2021 Inactive Coumadin 4 mg tablet RxNorm: 278682 1 Tablet(s) Oral QD 02/26/2021 Inactive levothyroxine 50 mcg tablet RxNorm: 820294 1 Tablet(s) Oral QD Recheck labs in 2 months 02/26/2021 02/26/2021 Inactive Recheck labs in 2 months levothyroxine 50 mcg tablet RxNorm: 123310 1 Tablet(s) Oral QD Recheck labs in 2 months 02/26/2021 02/25/2021 Inactive Recheck labs in 2 months losartan 100 mg tablet RxNorm: 416951 TAKE 1 TABLET BY MOUTH 02/22/2021 08/20/2021 Inactive spironolactone 25 mg tablet RxNorm: 607542 1 Tablet(s) Oral QD 01/2303/04/2021 Inactive isosorbide mononitrate 10 mg tablet RxNorm: 650861 1 Ta blet(s) Oral two times a day 02/19/2021 02/25/2021 Inactive famotidine 20 mg tablet RxNorm: 600534 1 Tablet(s) Oral QD 02/20/2003/04/2021 Inactive levothyroxine 25 mcg tablet RxNorm: 139856 1 Tablet(s) Oral QD 03/0 07/202102/25/2021 Inactive atorvastatin 40 mg tablet RxNorm: 713030 1 Tablet(s) Or al QPM replaces pravastatin 01/29/2021 07/27/2021 Inactive furosemide 40 mg tablet RxNorm: 992749 TAKE 1 TABLET BY MOUTH E VERY MORNING 01/28/2021 01/28/2021 Inactive prednisone 10 mg tablet RxNorm: 721171 1 Tablet(s) Oral two antolin es a day 01/16/2021 01/19/2021 Inactive atorvastatin 40 mg tablet RxNorm: 327526 1 Tablet(s) Or al QPM replaces pravastatin 12/31/2020 01/28/2021 Inactive carvedilol 25 mg tablet RxNorm: 592829 TAKE 1 TABLET BY MOUTH T WICE DAILY 12/31/2020 04/02/2021 Inactive potassium chloride ER 10 mEq tablet,extended release RxNorm: 154833 TAKE 1 TABLET BY MOUTH EVERY DAY 12/31/2020 12/31/2020 Inactive losartan 100 mg tablet RxNorm: 779446 1 Tablet(s) Oral QD 12/03/2020 02/21/2021 Inactive Coumadin 4 mg tablet RxNorm: 049822 TAKE 1 TABLET BY [facility] THURSDAY THROUGH Thursday11/30/2020 02/25/2021 Inactive levothyroxine 25 mcg tablet RxNorm: 823161 1 Tablet(s) Oral QD 10/2401/28/2021 Inactive famotidine 20 mg tablet RxNorm: 732818 1 Tablet(s) Oral QD 11/19/20 20 01/15/2021 Inactive famotidine 20 mg tablet RxNorm: 363999 1 Tablet(s) Oral QD 11/19/20 20 11/18/2020 Inactive levothyroxine 50 mcg tablet RxNorm: 854031 [facility] 11/06/2020 01/29/2021 Inactive furosemide 40 mg tablet RxNorm: 455051 TAKE 1 TABLET BY MOUTH E VERY MORNING 11/05/2020 01/27/2021 Inactive atorvastatin 40 mg tablet RxNorm: 985834 1 Tablet(s) Or al QPM replaces pravastatin 10/22/2020 12/30/2020 Inactive atorvastatin 40 mg tablet RxNorm: 911981 1 Tablet(s) Or al QPM replaces pravastatin 10/22/2020 10/21/2020 Inactive spironolactone 25 mg tablet RxNorm: 276863 1 Tablet(s) Oral QAM 01/15/2021 Inactive carvedilol 25 mg tablet RxNorm: 882389 TAKE 1 TABLET BY MOUTH T WICE DAILY 10/04/2020 12/30/2020 Inactive pravastatin 40 mg tablet RxNorm: 156854 TAKE 1 TABLET BY MOUTH EVERY DAY 10/04/2020 12/31/2020 Inactive potassium chloride ER 10 mEq tablet,extended release RxNorm: 667464 TAKE 1 TABLET BY MOUTH EVERY DAY 10/04/2020 12/30/2020 Inactive isosorbide mononitrate ER 30 mg tablet,extended release 24 h r RxNorm: 759232 TABLET(S) 1 TABLET(S) PO NEEDED Oral 10/04/2020 02/18/2021 Inactive Patient requests 90 days supply furosemide 40 mg tablet RxNorm: 137776 TAKE 1 TABLET BY MOUTH E VERY MORNING 10/01/2020 11/04/2020 Inactive losartan 100 mg tablet RxNorm: 100150 TAKE 1 TABLET BY MOUTH 09/19/2020 12/02/2020 Inactive amlodipine 5 mg tablet RxNorm: 803796 1 Tablet(s) Oral QD 08/27/2020 11/11/2020 Inactive spironolactone 25 mg tablet RxNorm: 361833 1 Tablet(s) Oral QAM 03/202010/21/2020 Inactive levothyroxine 50 mcg tablet RxNorm: 806345 TAKE 1 TABLET BY ENE TH EVERY DAY 08/07/2020 11/04/2020 Inactive levothyroxine 50 mcg tablet RxNorm: 661087 TAKE 1 TABLET BY ENE TH EVERY DAY 08/06/2020 08/06/2020 Inactive amoxicillin 500 mg capsule RxNorm: 631128 4 Capsule(s) Oral QD 1hr prior to dental cleaning 07/31/2020 07/30/2020 Inactive amoxicillin 500 mg capsule RxNorm: 493785 4 Capsule(s) Oral QD 1hr prior to dental cleaning 07/31/2020 07/31/2020 Inactive potassium chloride ER 10 mEq tablet,extended release RxNorm: 972420 TAKE 1 TABLET BY MOUTH EVERY DAY 07/23/2020 10/03/2020 Inactive pravastatin 40 mg tablet RxNorm: 674462 TAKE 1 TABLET BY MOUTH EVERY DAY 07/23/2020 10/03/2020 Inactive carvedilol 25 mg tablet RxNorm: 940907 TAKE 1 TABLET BY MOUTH T WICE DAILY 07/23/2020 10/03/2020 Inactive losartan 100 mg tablet RxNorm: 545685 TAKE 1 TABLET BY MOUTH EV RANDI DAY 06/27/2020 09/18/2020 Inactive furosemide 40 mg tablet RxNorm: 214943 TAKE 1 TABLET BY MOUTH E VERY MORNING 06/08/2020 09/30/2020 Inactive Coumadin 4 mg tablet RxNorm: 775382 1 Tablet(s) Oral Thursday thr thursday06/07/2020 11/29/2020 Inactive Coumadin 2 mg tablet RxNorm: 559782 1 Tablet(s) Oral on and Thursday03/20/2020 03/19/2020 Inactive Coumadin 4 mg tablet RxNorm: 007869 1 Tablet(s) Oral Thursday thr thursday03/20/2020 06/06/2020 Inactive losartan 100 mg tablet RxNorm: 025241 TAKE 1 TABLET BY MOUTH EV RANDI DAY 03/20/2020 06/26/2020 Inactive Coumadin 2 mg tablet RxNorm: 517828 1 Tablet(s) Oral on and Thursday03/20/2020 02/25/2021 Inactive furosemide 40 mg tablet RxNorm: 355244 1 Tablet(s) Oral [facility] 020 06/07/2020 Inactive pravastatin 40 mg tablet RxNorm: 560566 TAKE 1 TABLET BY MOUTH EVERY DAY 02/07/2020 07/22/2020 Inactive losartan 100 mg tablet RxNorm: 464921 TAKE 1 TABLET BY MOUTH EV RANDI DAY 02/01/2020 03/19/2020 Inactive losartan 100 mg tablet RxNorm: 262490 TAKE 1 TABLET BY MOUTH EV RANDI DAY 01/17/2020 01/31/2020 Inactive Coumadin 2 mg tablet RxNorm: 604555 1 Tablet(s) Oral on and Thursday12/15/2019 12/15/2019 Inactive furosemide 40 mg tablet RxNorm: 954033 TAKE 1 TABLET BY MOUTH E VERY MORNING 12/14/2019 03/12/2020 Inactive pravastatin 40 mg tablet RxNorm: 231238 TAKE 1 TABLET BY MOUTH EVERY DAY 11/27/2019 02/06/2020 Inactive losartan 100 mg tablet RxNorm: 689436 1 Tablet(s) Oral QD 11/10/2019 01/16/2020 Inactive isosorbide mononitrate ER 30 mg tablet,extended release 24 h r RxNorm: 114715 TABLET(S) 1 TABLET(S) PO NEEDED 11/10/2019 05/08/2020 Inactive Patient requests 90 days supply carvedilol 25 mg tablet RxNorm: 419215 1 Tablet(s) Oral two antolin es a day 11/10/2019 05/08/2020 Inactive Coumadin 2 mg tablet RxNorm: 002863 1 Tablet(s) Oral on and Thursday11/10/2019 12/14/2019 Inactive losartan 100 mg tablet RxNorm: 978291 1 Tablet(s) Oral QD 11/10/2019 11/09/2019 Inactive levothyroxine 50 mcg tablet RxNorm: 002969 1 Tablet(s) Oral QD 10/2310/21/2020 Inactive Coumadin 4 mg tablet RxNorm: 032381 1 Tablet(s) Oral Thursday thr thursday11/10/2019 11/10/2019 Inactive losartan 50 mg tablet RxNorm: 646933 2 Tablet(s) Oral QD 11/01/2019 1 01/10/2019 Inactive potassium chloride ER 10 mEq capsule,extended release RxNorm : 422828 1 Capsule(s) Oral QD 10/26/2019 12/14/2019 Inactive potassium chloride ER 10 mEq tablet,extended release RxNorm: 441842 1 TABLET(S) ORAL QD 10/22/2019 04/18/2020 Inactive Replaces PA on 1 0MEQ Capsules Aspir-81 mg tablet,delayed release RxNorm: 467824 1 Tablet(s) O ral QD 10/11/2019 No Stop Date Active cyclobenzaprine 5 mg tablet RxNorm: 758443 1 Tablet(s) Oral two times a day as needed for muscle spasm 10/11/2019 03/19/2020 Inactive Coumadin 4 mg tablet RxNorm: 378636 1 Tablet(s) Oral Mo through Thursday and 1/2 tablet (2mg) on Sat/Sun 10/11/2019 11/09/2019 Inactive potassium chloride ER 10 mEq tablet,extended release RxNorm: 266063 1 Tablet(s) Oral QD 09/22/2019 09/21/2019 Inactive Replaces PA on 1 0MEQ Capsules potassium chloride ER 10 mEq tablet,extended release RxNorm: 588453 1 Tablet(s) Oral QD 09/22/2019 10/10/2019 Inactive Replaces PA on 1 0MEQ Capsules potassium chloride ER 10 mEq capsule,extended release RxNorm : 468592 1 Capsule(s) Oral QD 09/21/2019 09/21/2019 Inactive carvedilol 25 mg tablet RxNorm: 380216 1 Tablet(s) Oral two antolin es a day 08/23/2019 11/09/2019 Inactive isosorbide mononitrate ER 30 mg tablet,extended release 24 h r RxNorm: 205135 TABLET(S) 1 TABLET(S) PO NEEDED 08/22/2019 10/04/2020 Inactive Patient requests 90 days supply isosorbide mononitrate ER 30 mg tablet,extended release 24 h r RxNorm: 987122 Tablet(s) 1 TABLET(S) PO NEEDED 08/16/2019 08/21/2019 Inactive Patient requests 90 days supply levothyroxine 50 mcg tablet RxNorm: 517076 1 Tablet(s) PO QD 201811/09/2019 Inactive isosorbide mononitrate ER 30 mg tablet,extended release 24 h r RxNorm: 549614 Tablet(s) 1 TABLET(S) PO NEEDED 06/27/2019 08/15/2019 Inactive Patient requests 90 days supply isosorbide mononitrate ER 30 mg tablet,extended release 24 h r RxNorm: 916116 1 Tablet(s) PO QD as needed 06/27/2019 06/27/2019 Inactive Neris ent requests 90 days supply carvedilol 25 mg tablet RxNorm: 506721 1 TABLET(S) PO BID 06/27/2019 08/22/2019 Inactive furosemide 40 mg tablet RxNorm: 222560 1 Tablet(s) PO QAM 06/21/2019 12/13/2019 Inactive carvedilol 25 mg tablet RxNorm: 827410 1 Tablet(s) PO BID 05/13/2019 06/26/2019 Inactive Xanax 0.25 mg tablet RxNorm: 911094 1/2 Tablet(s) PO Q6H as needed 05/13/2019 09/07/2019 Inactive levothyroxine 50 mcg tablet RxNorm: 746541 1 Tablet(s) PO QD 201808/07/2019 Inactive losartan 50 mg tablet RxNorm: 481920 1 Tablet(s) PO QD 04/26/2019 Inactive losartan 50 mg tablet RxNorm: 075219 1 Tablet(s) PO QD 04/20/201901/2019 Inactive pravastatin 40 mg tablet RxNorm: 765480 1 Tablet(s) PO QD 04/07/2019 06/05/2019 Inactive isosorbide mononitrate ER 30 mg tablet,extended release 24 h r RxNorm: 653737 1 Tablet(s) PO as needed 04/07/2019 04/06/2019 Inactive isosorbide mononitrate ER 30 mg tablet,extended release 24 h r RxNorm: 204828 1 TABLET(S) PO NEEDED 04/07/2019 06/26/2019 Inactive Patient requests 90 days supply losartan 50 mg tablet RxNorm: 921304 1 Tablet(s) PO QD 03/22/2019 Inactive Prolia subcutaneous RxNorm: 474072 subcutaneous 02/19/2021 A ctive carvedilol 25 mg tablet RxNorm: 718757 1 Tablet(s) PO BID 05/13/2019 05/12/2019 Inactive losartan 50 mg tablet RxNorm: 953048 1 Tablet(s) PO QD 03/22/2019 Inactive Ventolin HFA 90 mcg/actuation aerosol inhaler RxNorm: 116317 1-2 Puff(s) INH as needed 09/08/2019 09/07/2019 Inactive furosemide 40 mg tablet RxNorm: 222832 1 Tablet(s) PO QAM 06/21/2019 06/20/2019 Inactive pravastatin 40 mg tablet RxNorm: 972285 1 Tablet(s) PO QD 04/07/2019 04/06/2019 Inactive Coumadin 2 mg tablet RxNorm: 117923 1 Tablet(s) PO Mon, Fri, Sat and Sun then 2 tablets (4mg) on , Thu and 10/11/2019 10/10/2019 Inactive isosorbide mononitrate ER 30 mg tablet,extended release 24 h r RxNorm: 489692 Tablet(s) PO as needed 04/07/2019 04/06/2019 Inactive Women's Multivitamin 18 mg iron-400 mcg-500 mg tablet RxNorm : 1 Tablet(s) PO QD 09/08/2019 09/07/2019 Inactive Vitamin D3 1000 units Capsule RxNorm: 3 Capsule(s) PO QD 9 09/07/2019 Inactive vitamin B complex capsule RxNorm: 1 Capsule(s) PO QD 09/08/2019 Inactive potassium chloride ER 10 mEq capsule,extended release RxNorm : 529547 1 Capsule(s) PO QD 09/21/2019 09/20/2019 Inactive levothyroxine 50 mcg tablet RxNorm: 589531 1 Tablet(s) PO QD 201804/25/2019 Inactive Medication Administered No Medication Administered data Immunizations Vaccine Codes Date Status Influenza CVX: 135 07/06/2020 Pneumovax CVX: 33 02/03/2020 Influenza CVX: 135 07/02/2019 Results Observation Observation Code Item Item Code Result Date S ervice Location PT 8761633 PT 28.3 Seconds 07/19/2021 Unknow n PT [id number] INR 2.6 07/19/2021 Unknown COMPREHENSIVE METABOLIC 28486 AST 20 U/L 2020 Unknown COMPREHENSIVE METABOLIC 74932 ALT 16 U/L 2020 Unknown COMPREHENSIVE METABOLIC 53768 BUN 35 mg/dL 2020 Unknown COMPREHENSIVE METABOLIC 77156 ALBUMIN 4.1 g/dL 2020 Unknown COMPREHENSIVE METABOLIC 91670 CHLORIDE 105 mmol/L 06/20 Unknown COMPREHENSIVE METABOLIC 66562 Bili Total 1.1 mg/dL 06/20 Unknown COMPREHENSIVE METABOLIC 47559 ALK PHOS 103 U/L 2020 Unknown COMPREHENSIVE METABOLIC 86144 SODIUM 139 mmol/L 06/20 Unknown COMPREHENSIVE METABOLIC 81779 CREATININE 0.99 mg/dL 05/24 Unknown COMPREHENSIVE METABOLIC 25013 CALCIUM 8.8 mg/dL 2020 Unknown COMPREHENSIVE METABOLIC 04694 POTASSIUM 4.7 mmol/L 06/20 Unknown COMPREHENSIVE METABOLIC 73904 Total Protein 6.2 g/dL Unknown COMPREHENSIVE METABOLIC 76178 Glucose 83 mg/dL 2020 Unknown COMPREHENSIVE METABOLIC 59823 Bicarbonate 27 mmol/L 05/24 Unknown COMPREHENSIVE METABOLIC 64409 AGAP 7 mmol/L 2020 Unknown COMPLETE BLOOD COUNT [id number] WBC 4.5 10e9/L 06/20/20 21 Unknown COMPLETE BLOOD COUNT 0647580 RBC 3.99 10e12/L 2020 Unknown COMPLETE BLOOD COUNT 0825056 HEMOGLOBIN 11.8 g/dL 06/20/20 21 Unknown COMPLETE BLOOD COUNT [id number] HEMATOCRIT 36.6 % 06/20/20 21 Unknown COMPLETE BLOOD COUNT [id number] MCV 91.7 fL 1 Unknown COMPLETE BLOOD COUNT 1609038 MCH 29.6 pg 1 Unknown COMPLETE BLOOD COUNT 3852122 MCHC 32.2 g/dL 1 Unknown COMPLETE BLOOD COUNT 4954644 PLATELET COUNT 180 10e9/L Unknown COMPLETE BLOOD COUNT 5702886 Mean Plt Volume 11.1 fL Unknown COMPLETE BLOOD COUNT 4985465 Neut Auto 64.7 % 1 Unknown COMPLETE BLOOD COUNT 1704600 Lymph Auto 19.6 % 06/20/20 21 Unknown COMPLETE BLOOD COUNT 1179789 [place] Auto 13.5 % 1 Unknown COMPLETE BLOOD COUNT 2562008 RDW 15.1 % 1 Unknown COMPLETE BLOOD COUNT 7745257 Eos Auto 1.8 % 1 Unknown COMPLETE BLOOD COUNT 3198561 Baso Auto 0.4 % 1 Unknown COMPLETE BLOOD COUNT 3693328 Neutrophil Abs 2.91 10e9/L Unknown COMPLETE BLOOD COUNT [id number] Lymphocyte Abs 0.88 10e9/L Unknown COMPLETE BLOOD COUNT 3447489 Monocyte Abs 0.61 10e9/L 05/24 Unknown COMPLETE BLOOD COUNT 6726341 Eosinophil Abs 0.08 10e9/L Unknown COMPLETE BLOOD COUNT [id number] RDW-SD 49.5 fL 1 Unknown COMPLETE BLOOD COUNT [id number] Basophil Abs 0.02 10e9/L 05/24 Unknown GFR CALC 1277822 GFR Afr Amr >60 mL/min 06/20/2021 Unknow n GFR CALC 1591992 GFR Non Afr Amr 53 mL/min 06/20/2021 Unk nown PT [id number] PT 27.4 Seconds 06/20/2021 Unknow n PT [id number] INR 2.5 06/20/2021 Unknown PT [id number] PT 25.8 Seconds 05/21/2021 Unknow n PT [id number] INR 2.3 05/21/2021 Unknown FREE T4 75215 T4 Free 1.19 ng/dL 04/11/2021 Unknown PT [id number] PT 33.6 Seconds 04/11/2021 Unknow n PT [id number] INR 3.3 04/11/2021 Unknown THYROID STIMULATING HORMONE 01192 TSH 3.912 uIU/mL 04/11/2021 Unknown PT 1000355 PT 33.1 Seconds 03/15/2021 Unknow n PT [id number] INR 3.2 03/15/2021 Unknown PT [id number] PT 24.6 Seconds 05/23/2020 Unknow n PT [id number] INR 2.2 05/23/2020 Unknown PT [id number] PT 31.4 Seconds 10/26/2019 Unknow n PT [id number] INR 2.9 10/26/2019 Unknown PT [id number] PT 17.6 Seconds 10/11/2019 Unknow n PT [id number] INR 1.4 10/11/2019 Unknown PT [id number] PT 23.7 Seconds 09/08/2019 Unknow n PT [id number] INR 2.0 09/08/2019 Unknown PT [id number] PT 23.2 Seconds 07/29/2019 Unknow n PT [id number] INR 2.0 07/29/2019 Unknown PT [id number] PT 14.3 Seconds 07/18/2019 Unknow n PT [id number] INR 1.1 07/18/2019 [place] [address] Glucose 75 mg/dL 07/06 [place] [address] CREATININE 0.61 mg/dL [place] [address] BUN 15 mg/dL 07/06 [place] [address] SODIUM 142 mmol/L 06/23 [place] [address] POTASSIUM 4.0 mmol/L 06/23 [place] [address] CHLORIDE 106 mmol/L 06/23 [place] [address] Bicarbonate 28 mmol/[place] [address] AGAP 8 mmol/L 07/06 [place] [address] CALCIUM 9.3 mg/dL 07/06 Unknown PT [id number] PT 17.4 Seconds 07/06/2019 Unknow n PT [id number] INR 1.4 07/06/2019 Unknown GFR CALC 8203639 GFR Afr Amr >60 mL/min 07/06/2019 Unknow n GFR CALC 0666000 GFR Non Afr Amr >60 mL/min 07/06/2019 Un known COMPLETE BLOOD COUNT 1352637 WBC 4.7 10e9/L 07/06/20 19 Unknown COMPLETE BLOOD COUNT [id number] RBC 4.19 10e12/L 2018 Unknown COMPLETE BLOOD COUNT 6223984 HEMOGLOBIN 12.6 g/dL 07/06/20 19 Unknown COMPLETE BLOOD COUNT 4945099 HEMATOCRIT 39.4 % 07/06/20 19 Unknown COMPLETE BLOOD COUNT 2930200 MCV 94.0 fL 9 Unknown COMPLETE BLOOD COUNT 8899156 MCH 30.1 pg 9 Unknown COMPLETE BLOOD COUNT 9650555 MCHC 32.0 g/dL 9 Unknown COMPLETE BLOOD COUNT 3346795 PLATELET COUNT 160 10e9/L Unknown COMPLETE BLOOD COUNT 6752636 Mean Plt Volume 11.0 fL Unknown COMPLETE BLOOD COUNT 7405952 Neut Auto 56.6 % 9 Unknown COMPLETE BLOOD COUNT [id number] Lymph Auto 27.0 % 07/06/20 19 Unknown COMPLETE BLOOD COUNT 1526960 [place] Auto 13.7 % 9 Unknown COMPLETE BLOOD COUNT 2184014 RDW 14.6 % 9 Unknown COMPLETE BLOOD COUNT 0934239 Eos Auto 2.1 % 9 Unknown COMPLETE BLOOD COUNT 5598871 Baso Auto 0.6 % 9 Unknown COMPLETE BLOOD COUNT 0870578 Neutrophil Abs 2.66 10e9/L Unknown COMPLETE BLOOD COUNT 6981963 Lymphocyte Abs 1.27 10e9/L Unknown COMPLETE BLOOD COUNT [id number] Monocyte Abs 0.64 10e9/L 06/23 Unknown COMPLETE BLOOD COUNT 2205956 Eosinophil Abs 0.10 10e9/L Unknown COMPLETE BLOOD COUNT 9385591 Basophil Abs 0.03 10e9/L 06/23 Unknown COMPLETE BLOOD COUNT 8359933 RDW-SD 48.7 fL 9 Unknown COMPLETE BLOOD COUNT [id number] WBC 4.6 10e9/L 06/14/20 19 Unknown COMPLETE BLOOD COUNT [id number] RBC 4.16 10e12/L 2018 Unknown COMPLETE BLOOD COUNT 2234248 HEMOGLOBIN 12.6 g/dL 06/14/20 19 Unknown COMPLETE BLOOD COUNT 1044305 HEMATOCRIT 39.1 % 06/14/20 19 Unknown COMPLETE BLOOD COUNT 0917766 MCV 94.0 fL 9 Unknown COMPLETE BLOOD COUNT 2695900 MCH 30.3 pg 9 Unknown COMPLETE BLOOD COUNT 0984159 MCHC 32.2 g/dL 9 Unknown COMPLETE BLOOD COUNT 7372971 PLATELET COUNT 167 10e9/L Unknown COMPLETE BLOOD COUNT 8131698 Mean Plt Volume 10.9 fL Unknown COMPLETE BLOOD COUNT 0201521 Neut Auto 59.6 % 9 Unknown COMPLETE BLOOD COUNT 8870860 Lymph Auto 24.1 % 06/14/20 19 Unknown COMPLETE BLOOD COUNT 8096788 [place] Auto 14.0 % 9 Unknown COMPLETE BLOOD COUNT 9048273 RDW 14.8 % 9 Unknown COMPLETE BLOOD COUNT 6197463 Eos Auto 1.9 % 9 Unknown COMPLETE BLOOD COUNT 2100247 Baso Auto 0.4 % 9 Unknown COMPLETE BLOOD COUNT 7200433 Neutrophil Abs 2.74 10e9/L Unknown COMPLETE BLOOD COUNT 0943313 Lymphocyte Abs 1.11 10e9/L Unknown COMPLETE BLOOD COUNT [id number] Monocyte Abs 0.64 10e9/L 05/24 Unknown COMPLETE BLOOD COUNT 8111803 Eosinophil Abs 0.09 10e9/L Unknown COMPLETE BLOOD COUNT 3933031 RDW-SD 49.3 fL 9 Unknown COMPLETE BLOOD COUNT [id number] Basophil Abs 0.02 10e9/L 05/24 Unknown PT [id number] PT 22.3 Seconds 06/14/2019 Unknow n PT [id number] INR 1.9 06/14/2019 Unknown COMPLETE BLOOD COUNT 7054926 WBC 4.0 10e9/L 05/13/20 19 Unknown COMPLETE BLOOD COUNT 8309157 RBC 3.82 10e12/L 2018 Unknown COMPLETE BLOOD COUNT 3468394 HEMOGLOBIN 11.5 g/dL 05/13/20 19 Unknown COMPLETE BLOOD COUNT 2731247 HEMATOCRIT 36.4 % 05/13/20 19 Unknown COMPLETE BLOOD COUNT 9489385 MCV 95.3 fL 9 Unknown COMPLETE BLOOD COUNT 7318625 MCH 30.1 pg 9 Unknown COMPLETE BLOOD COUNT 3237307 MCHC 31.6 g/dL 9 Unknown COMPLETE BLOOD COUNT 6674555 PLATELET COUNT 175 10e9/L Unknown COMPLETE BLOOD COUNT 1229274 Mean Plt Volume 10.5 fL Unknown COMPLETE BLOOD COUNT 8131646 Neut Auto 63.2 % 9 Unknown COMPLETE BLOOD COUNT 0503886 Lymph Auto 22.0 % 05/13/20 19 Unknown COMPLETE BLOOD COUNT 7751263 [place] Auto 12.1 % 9 Unknown COMPLETE BLOOD COUNT 0776637 Eos Auto 2.2 % 9 Unknown COMPLETE BLOOD COUNT 6906132 RDW 14.9 % 9 Unknown COMPLETE BLOOD COUNT 3454576 Baso Auto 0.5 % 9 Unknown COMPLETE BLOOD COUNT 7169400 Neutrophil Abs 2.53 10e9/L Unknown COMPLETE BLOOD COUNT 7534736 Lymphocyte Abs 0.88 10e9/L Unknown COMPLETE BLOOD COUNT 4838914 Monocyte Abs 0.48 10e9/L 04/24 Unknown COMPLETE BLOOD COUNT 0324237 Eosinophil Abs 0.09 10e9/L Unknown COMPLETE BLOOD COUNT 3118679 RDW-SD 49.6 fL 9 Unknown COMPLETE BLOOD COUNT 1073955 Basophil Abs 0.02 10e9/L 04/24 Unknown COMPREHENSIVE METABOLIC 37035 AST 18 U/L 2018 Unknown COMPREHENSIVE METABOLIC 94067 ALT 14 U/L 2018 Unknown COMPREHENSIVE METABOLIC 74746 BUN 15 mg/dL 2018 Unknown COMPREHENSIVE METABOLIC 74048 ALBUMIN 4.0 g/dL 2018 Unknown COMPREHENSIVE METABOLIC 88217 CHLORIDE 108 mmol/L 05/13 Unknown COMPREHENSIVE METABOLIC 77401 Bili Total 0.9 mg/dL 05/13 Unknown COMPREHENSIVE METABOLIC 53294 ALK PHOS 84 U/L 2018 Unknown COMPREHENSIVE METABOLIC 20900 SODIUM 142 mmol/L 05/13 Unknown COMPREHENSIVE METABOLIC 27393 CREATININE 0.72 mg/dL 04/24 Unknown COMPREHENSIVE METABOLIC 63988 CALCIUM 8.9 mg/dL 2018 Unknown COMPREHENSIVE METABOLIC 47093 POTASSIUM 4.0 mmol/L 05/13 Unknown COMPREHENSIVE METABOLIC 99957 Total Protein 5.5 g/dL Unknown COMPREHENSIVE METABOLIC 12768 Glucose 95 mg/dL 2018 Unknown COMPREHENSIVE METABOLIC 94226 Bicarbonate 27 mmol/L 04/24 Unknown COMPREHENSIVE METABOLIC 45392 AGAP 7 mmol/L 2018 Unknown GFR CALC [id number] GFR Afr Amr >60 mL/min 05/13/2019 Unknow n GFR CALC 0702767 GFR Non Afr Amr >60 mL/min 05/13/2019 Un known THYROID STIMULATING HORMONE 85552 TSH 2.669 uIU/mL 05/13/2019 Unknown FREE T4 21718 T4 Free 1.19 ng/dL 05/13/2019 Unknown PT [id number] PT 24.2 Seconds 05/06/2019 Unknow n PT [id number] INR 2.1 05/06/2019 Unknown PT [id number] PT 24.1 Seconds 03/08/2019 Unknow n PT [id number] INR 2.9 03/08/2019 Unknown Procedures Procedure Codes Date ROUTINE VENIPUNCTURE CPT-4: 84445 07/19/2021 PROTHROMBIN TIME CPT-4: 10109 07/19/2021 ROUTINE VENIPUNCTURE CPT-4: 90956 06/20/2021 COMPREHEN METABOLIC PANEL CPT-4: 42979 06/20/2021 COMPLETE CBC W/AUTO DIFF WBC CPT-4: 71768 06/20/2021 PROTHROMBIN TIME CPT-4: 86935 06/20/2021 PT CPT-4: 0556507 05/16/2021 ROUTINE VENIPUNCTURE CPT-4: 72141 05/16/2021 ROUTINE VENIPUNCTURE CPT-4: 87102 04/11/2021 PROTHROMBIN TIME CPT-4: 78881 04/11/2021 ASSAY OF FREE THYROXINE CPT-4: 64075 04/11/2021 ASSAY THYROID STIM HORMONE CPT-4: 62059 04/11/2021 ROUTINE VENIPUNCTURE CPT-4: 48248 03/15/2021 PT CPT-4: 7651152 03/15/2021 ROUTINE VENIPUNCTURE CPT-4: 06294 02/22/2021 COMPREHEN METABOLIC PANEL CPT-4: 34157 02/22/2021 ASSAY OF FREE THYROXINE CPT-4: 89815 02/22/2021 ASSAY THYROID STIM HORMONE CPT-4: 31303 02/22/2021 COMPLETE CBC W/AUTO DIFF WBC CPT-4: 87559 02/22/2021 PROTHROMBIN TIME CPT-4: 52435 02/22/2021 LIPID PANEL CPT-4: 21725 02/22/2021 PPPS, subseq visit CPT-4: G0439 09/26/2020 ROUTINE VENIPUNCTURE CPT-4: 39854 05/23/2020 PROTHROMBIN TIME CPT-4: 61554 05/23/2020 ROUTINE VENIPUNCTURE CPT-4: 58559 01/20/2020 PT CPT-4: 3964751 01/20/2020 ROUTINE VENIPUNCTURE CPT-4: 49703 12/15/2019 PROTHROMBIN TIME CPT-4: 87805 12/15/2019 ROUTINE VENIPUNCTURE CPT-4: 14781 11/10/2019 PROTHROMBIN TIME CPT-4: 46117 11/10/2019 PROTHROMBIN TIME CPT-4: 83582 10/26/2019 ROUTINE VENIPUNCTURE CPT-4: 05503 10/26/2019 ROUTINE VENIPUNCTURE CPT-4: 34372 10/11/2019 PT CPT-4: 5478549 10/11/2019 PPPS, initial visit CPT-4: G0438 09/20/2019 ROUTINE VENIPUNCTURE CPT-4: 48925 09/08/2019 PT CPT-4: 7971394 09/08/2019 THER/PROPH/DIAG INJ SC/IM CPT-4: 26978 09/08/2019 TRIAMCINOLONE ACET INJ NOS CPT-4: J3301 09/08/2019 ROUTINE VENIPUNCTURE CPT-4: 32191 07/29/2019 PT CPT-4: 1119187 07/29/2019 ROUTINE VENIPUNCTURE CPT-4: 34990 07/18/2019 PT CPT-4: 2177224 07/18/2019 METABOLIC PANEL TOTAL CA CPT-4: 32362 07/06/2019 COMPLETE CBC W/AUTO DIFF WBC CPT-4: 75509 07/06/2019 PROTHROMBIN TIME CPT-4: 04809 07/06/2019 ROUTINE VENIPUNCTURE CPT-4: 72613 06/14/2019 PROTHROMBIN TIME CPT-4: 56929 06/14/2019 COMPLETE CBC W/AUTO DIFF WBC CPT-4: 87428 06/14/2019 ROUTINE VENIPUNCTURE CPT-4: 20836 05/13/2019 COMPREHEN METABOLIC PANEL CPT-4: 98715 05/13/2019 COMPLETE CBC W/AUTO DIFF WBC CPT-4: 01622 05/13/2019 ASSAY THYROID STIM HORMONE CPT-4: 92214 05/13/2019 ASSAY OF FREE THYROXINE CPT-4: 29590 05/13/2019 PT CPT-4: 9259470 05/06/2019 ROUTINE VENIPUNCTURE CPT-4: 72789 05/06/2019 PT CPT-4: 5512840 04/07/2019 ROUTINE VENIPUNCTURE CPT-4: 47012 04/07/2019 ROUTINE VENIPUNCTURE CPT-4: 48781 03/08/2019 PROTHROMBIN TIME CPT-4: 53655 03/08/2019 Vital Signs Date Vital 08/20/2021 Blood Pressure 1: 127/69 Code: 8480-6 Heart Rate 1: 84 bpm Respiratory Rate: 17 bpm SpO2: 98% Temperature: 36.7 (C) / 98.1 (F) We ight: 208 lbs Code: 99186-2 05/16/2021 Blood Pressure 1: 136/64 Code: 8480-6 BMI: 37.0 Code: 79179-9 Heart Rate 1: 61 bpm Height: 5'3" Code: 8302-2 Respiratory Rate: 16 bpm SpO2: 98% Temperature: 36.2 (C) / 97.1 (F) Weight: 212 lbs Code: 58534-6 03/05/2021 Blood Pressure 1: 134/76 Code: 8480-6 Heart Rate 1: 66 bpm Respiratory Rate: 16 bpm SpO2: 100% Temperature: 37.1 (C) / 98.7 (F) We ight: 203 lbs Code: 78761-8 02/19/2021 Blood Pressure 1: 126/70 Code: 8480-6 BMI: 35.4 Code: 01392-0 Heart Rate 1: 72 bpm Height: 5'3" Code: 8302-2 Respiratory Rate: 16 bpm SpO2: 99% Temperature: 36.3 (C) / 97.3 (F) Weight: 203 lbs Code: 99352-4 01/16/2021 Blood Pressure 1: 112/74 Code: 8480-6 Heart Rate 1: 76 bpm Respiratory Rate: 20 bpm Temperature: 36.7 (C) / 98.0 (F) Weight: 205 lbs Code : 02172-3 11/19/2020 Blood Pressure 1: 120/78 Code: 8480-6 Heart Rate 1: 88 bpm Temperature: 36.6 (C) / 97.8 (F) 11/12/2020 Blood Pressure 1: 110/57 Code: 8480-6 Heart Rate 1: 68 bpm Respiratory Rate: 15 bpm SpO2: 100% Weight: 202 lbs Code: 23480 -7 10/12/2020 Blood Pressure 1: 114/70 Code: 8480-6 Heart Rate 1: 84 bpm Respiratory Rate: 18 bpm SpO2: 98% Temperature: 36.7 (C) / 98.0 (F) 09/26/2020 Blood Pressure 1: 120/72 Code: 8480-6 BMI: 35.2 Code: 58917-7 Heart Rate 1: 76 bpm Height: 5'3" Code: 8302-2 Respiratory Rate: 20 bpm SpO2: 97% Temperature: 36.7 (C) / 98.0 (F) Weight: 202 lbs Code: 14260-8 08/27/2020 Blood Pressure 1: 126/82 Code: 8480-6 Heart Rate 1: 80 bpm Respiratory Rate: 20 bpm Temperature: 36.2 (C) / 97.1 (F) Weight: 198 lbs Code : 31841-1 05/23/2020 Blood Pressure 1: 120/78 Code: 8480-6 Heart Rate 1: 68 bpm Respiratory Rate: 20 bpm SpO2: 97% Temperature: 36.4 (C) / 97.5 (F) We ight: 200 lbs Code: 34366-5 05/02/2020 Blood Pressure 1: 133/81 Code: 8480-6 Heart Rate 1: 74 bpm Weight: 202 lbs Code: 52390-2 12/15/2019 Blood Pressure 1: 126/82 Code: 8480-6 Heart Rate 1: 64 bpm Respiratory Rate: 20 bpm SpO2: 97% Temperature: 36.6 (C) / 97.8 (F) We ight: 201 lbs Code: 16793-7 11/03/2019 Blood Pressure 1: 142/82 Code: 8480-6 [...] / 98.1 (F) Weight: 204 lbs Code: 36715-2 09/20/2019 Blood Pressure 1: 122/68 Code: 8480-6 BMI: 35.0 Code: 37960-8 Heart Rate 1: 72 bpm Height: 5'3" Code: 8302-2 Respiratory Rate: 18 bpm SpO2: 95% Temperature: 36.8 (C) / 98.3 (F) Weight: 201 lbs Code: 64108-7 09/08/2019 Blood Pressure 1: 118/72 Code: 8480-6 Heart Rate 1: 82 bpm SpO2: 97% Temperature: 36.3 (C) / 97.4 (F) Weight: 208 lbs Code: 42898-0 06/14/2019 Blood Pressure 1: 128/84 Code: 8480-6 Heart Rate 1: 72 bpm Respiratory Rate: 20 bpm SpO2: 98% Temperature: 36.7 (C) / 98.1 (F) We ight: 209 lbs Code: 30850-5 05/13/2019 Blood Pressure 1: 144/90 Code: 8480-6 Heart Rate 1: 88 bpm Respiratory Rate: 24 bpm SpO2: 96% Temperature: 37.1 (C) / 98.8 (F) We ight: 210 lbs Code: 76351-5 05/02/2019 Blood Pressure 1: 128/80 Code: 8480-6 Heart Rate 1: 84 bpm Respiratory Rate: 20 bpm SpO2: 95% Temperature: 36.6 (C) / 97.9 (F) We ight: 209 lbs Code: 58311-9 03/22/2019 Blood Pressure 1: 122/70 Code: 8480-6 He art Rate 1: 85 bpm 03/08/2019 Blood Pressure 1: 114/78 Code: 8480-6 BMI: 36.1 Code: 23510-4 Heart Rate 1: 76 bpm Height: 5'3" Code: 8302-2 Respiratory Rate: 20 bpm SpO2: 97% Temperature: 37.1 (C) / 98.8 (F) Weight: 207 lbs Code: 26026-5 Functional Status No Functional Status data Reason [...] left[ICD10: N64.4] Diagnosis: Left breast lump[ICD10: N63.20] eRmedios ANGELES CPT-4: 54937 08/20/2021 ([id number]) NURSE/OUTPATIENT VISIT EST Diagnosis: Long-term (current) use of anticoagulants, INR goal 2.0-3.0[ICD10: Z79.01] Jeanie JENNINGSLINE David BLACK Why Not Give Back CPT-4: 77465 07/19/2021 ([id number]) NURSE/OUTPATIENT VISIT EST Diagnosis: Essential (primary) hypertension[ICD10: I10] Diagnosis: Chronic atrial fibrillation[ICD10: I48.20] Diagnosis: Long-term (current) use of anticoagulants, INR goal 2.0-3.0[ICD10: Z79.01] Diagnosis: Anemia, unspecified[ICD10: D64.9] Jeanie TURK Fidel BLACK Why Not Give Back CPT-4: 79403 06/20/2021 ([id number]) OFFICE/OUTPATIENT VISIT EST Diagnosis: Long-term (current) use of anticoagulants, INR goal 2.0-3.0[ICD10: Z79.01] Diagnosis: Essential (primary) hypertension[ICD10: I10] Diagnosis: Chronic congestive heart failure with left ventricular diastolic dysfunction[ICD10: I50.32] Diagnosis: Severe obesity (BMI 35.0-39.9) with comorbidity[ICD10: E66.01] Diagnosis: Chronic atrial fibrillation[ICD10: I48.20] Diagnosis: Obstructive sleep apnea syndrome[ICD10: G47.33] Remedios Buenrostrohollis JEANIE BLACK Why Not Give Back CPT-4: 11872 05/16/2021 ([id number]) NURSE/OUTPATIENT VISIT EST Diagnosis: Hypothyroidism, unspecified[ICD10: E03.9] Diagnosis: Long-term (current) use of anticoagulants, INR goal 2.0-3.0[ICD10: Z79.01] Jeanie Avendañoalberta JEANIE David BLACK Why Not Give Back CPT-4: 14725 04/11/2021 ([id number]) NURSE/OUTPATIENT VISIT EST Diagnosis: Long-term (current) use of anticoagulants, INR goal 2.0-3.0[ICD10: Z79.01] Jeanie Avendañoalberta JEANIE David BLACK Why Not Give Back CPT-4: 60348 03/15/2021 ([id number]) OFFICE/OUTPATIENT VISIT EST Diagnosis: Essential hypertension[ICD10: I10] Diagnosis: Cheilitis[ICD10: K13.0] Diagnosis: Pulmonary hypertension[ICD10: I27.20] Jeanie Donisanirudh ANTON BLACK YaSabe [facility] CPT-4: 37242 03/05/2021 ([id number]) NURSE/OUTPATIENT VISIT EST Diagnosis: Essential (primary) hypertension[ICD10: I10] Diagnosis: Hypothyroidism, unspecified[ICD10: E03.9] Diagnosis: Long-term (current) use of anticoagulants, INR goal 2.0-3.0[ICD10: Z79.01] Diagnosis: Mixed hyperlipidemia[ICD10: E78.2] Jeanie JENNINGSPARAG RAFI David BLACK Why Not Give Back CPT-4: 82965 02/22/2021 ([id number]) OFFICE/OUTPATIENT VISIT EST Diagnosis: Cheilitis[ICD10: K13.0] Diagnosis: Encounter for medication review and counseling[ICD10: Z71.89] Diagnosis: Long-term (current) use of anticoagulants, INR goal 2.0-3.0[ICD10: Z79.01] Diagnosis: Hypothyroidism, unspecified[ICD10: E03.9] Diagnosis: Mixed hyperlipidemia[ICD10: E78.2] Diagnosis: Severe obesity (BMI 35.0-39.9) with comorbidity[ICD10: E66.01] Diagnosis: Chronic congestive heart failure with left ventricular diastolic dysfunction[ICD10: I50.32] Remedios JENNINGSLINE OfeAxel HECTORER Why Not Give Back CPT- 4: 06732 02/19/2021 ([id number]) OFFICE/OUTPATIENT VISIT EST Diagnosis: Cheilitis[ICD10: K13.0] Jannette JENNINGSLINE S. DONISND ER YaSabe [facility] CPT-4: 20899 01/16/2021 ([id number]) OFFICE/OUTPATIENT VISIT EST Diagnosis: Hypotension[ICD10: I95.9] Diagnosis: Dizziness[ICD10: R42] Jannette Tiarraelva CONNELL S. DONISNDER DO C CPT-4: 89736 11/12/2020 ([id number]) OFFICE/OUTPATIENT VISIT EST Diagnosis: Thoracic back pain[ICD10: M54.6] Diagnosis: Dizziness[ICD10: R42] Jannette Tiarrapeg ORTEZQUELINE S. DONISNDER DO LL C CPT-4: 07149 10/12/2020 ([id number]) OFFICE/OUTPATIENT VISIT EST Diagnosis: Chronic atrial fibrillation[ICD10: I48.20] Diagnosis: Chronic airway obstruction, not elsewhere classified[ICD10: J44.9] Diagnosis: Essential hypertension[ICD10: I10] Jeanie JENNINGSPARAG RAFI David BLACK DO [facility] CPT-4: 79852 08/27/2020 ([id number]) OFFICE/OUTPATIENT VISIT EST Diagnosis: Essential (primary) hypertension[ICD10: I10] Diagnosis: Chronic atrial fibrillation[ICD10: I48.20] Diagnosis: COPD (chronic obstructive pulmonary disease)[ICD10: J44.9] Diagnosis: Dyspnea[ICD10: R06.00] Diagnosis: Left hip pain[ICD10: M25.552] Jeanie Black JEANIE David BLACK DO [facility] CPT-4: 18206 05/23/2020 ([id number]) NURSE/OUTPATIENT VISIT EST Diagnosis: Essential (primary) hypertension[ICD10: I10] Jeanie Black JEANIE David BLACK DO [facility] CPT-4: 44740 05/02/2020 ([id number]) OFFICE/OUTPATIENT VISIT EST Diagnosis: COPD (chronic obstructive pulmonary disease)[ICD10: J44.9] Diagnosis: Chronic atrial fibrillation[ICD10: I48.20] Diagnosis: Essential hypertension[ICD10: I10] Jeanie [facility]wilberalberta [facility] CPT-4: 58957 03/20/2020 ([id number]) NURSE/OUTPATIENT VISIT EST Diagnosis: Long-term (current) use of anticoagulants, INR goal 2.0-3.0[ICD10: Z79.01] Jeanie Black JEANIE David BLACK DO [facility] CPT-4: 80208 01/20/2020 ([id number]) OFFICE/OUTPATIENT VISIT EST Diagnosis: COPD (chronic obstructive pulmonary disease)[ICD10: J44.9] Diagnosis: Long-term (current) use of anticoagulants, INR goal 2.0-3.0[ICD10: Z79.01] Diagnosis: History of recent fall[ICD10: Z91.81] Jeanie AGUILERA OfeAxel VARUN MCCURDY [facility] CPT-4: 04595 12/15/2019 ([id number]) NURSE/OUTPATIENT VISIT EST Diagnosis: Long-term (current) use of anticoagulants, INR goal 2.0-3.0[ICD10: Z79.01] Jeanie BLACK DO [facility] CPT-4: 48575 11/10/2019 ([id number]) OFFICE/OUTPATIENT VISIT EST Diagnosis: Post concussion syndrome[ICD10: F07.81] Diagnosis: Head contusion[ICD10: S00.93XA] Diagnosis: Chronic airway obstruction, not elsewhere classified[ICD10: J44.9] Jeanie BLACK DO BBOXX CPT-4: 17411 11/03/2019 ([id number]) OFFICE/OUTPATIENT VISIT EST Diagnosis: Fall as cause of accidental injury at home as place of occurrence[ICD10: W19.XXXA] Diagnosis: Headache[ICD10: R51] Diagnosis: Essential (primary) hypertension[ICD10: I10] Diagnosis: Long-term (current) use of anticoagulants, INR goal 2.0-3.0[ICD10: Z79.01] Diagnosis: Ecchymosis of left eye[ICD10: S05.12XA] Jannette BLACK Why Not Give Back CPT-4: 45869 10/31/2019 ([id number]) NURSE/OUTPATIENT VISIT EST Diagnosis: Long-term (current) use of anticoagulants, INR goal 2.0-3.0[ICD10: Z79.01] Jeanie BLACK DO BBOXX CPT-4: 40421 10/26/2019 ([id number]) OFFICE/OUTPATIENT VISIT EST Diagnosis: Long-term (current) use of anticoagulants, INR goal 2.0-3.0[ICD10: Z79.01] Diagnosis: Pain in right arm[ICD10: M79.601] Diagnosis: Radiculopathy of arm[ICD10: M54.10] Jannette BLACK Why Not Give Back CPT-4: 37073 10/11/2019 ([id number]) OFFICE/OUTPATIENT VISIT EST Diagnosis: Long-term (current) use of anticoagulants, INR goal 2.0-3.0[ICD10: Z79.01] Diagnosis: Sinusitis[ICD10: J32.9] Diagnosis: Pain in right arm[ICD10: M79.601] Jannette BLACK Why Not Give Back CPT-4: 78673 09/08/2019 ([id number]) NURSE/OUTPATIENT VISIT EST Diagnosis: Chronic atrial fibrillation[ICD10: I48.2] Diagnosis: Encounter for therapeutic drug level monitoring[ICD10: Z51.81] Jeanie BLACK DO [facility] CPT-4: 09048 07/29/2019 ([id number]) NURSE/OUTPATIENT VISIT EST Diagnosis: Chronic atrial fibrillation[ICD10: I48.2] Diagnosis: Encounter for therapeutic drug level monitoring[ICD10: Z51.81] Jeanie BLACK YaSabe [facility] CPT-4: 55565 07/18/2019 ([id number]) NURSE/OUTPATIENT VISIT EST Diagnosis: Encounter for therapeutic drug level monitoring[ICD10: Z51.81] Diagnosis: Chronic atrial fibrillation[ICD10: I48.2] Diagnosis: Essential (primary) hypertension[ICD10: I10] Jeanie BLACK Why Not Give Back CPT-4: 03347 07/06/2019 ([id number]) OFFICE/OUTPATIENT VISIT EST Diagnosis: Encounter for therapeutic drug level monitoring[ICD10: Z51.81] Diagnosis: Anemia, unspecified[ICD10: D64.9] Diagnosis: Bitten by dog, sequela[ICD10: W54.0XXS] 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] Jeanie BLACK Why Not Give Back CPT-4: 48712 06/14/2019 ([id number]) OFFICE/OUTPATIENT VISIT EST Diagnosis: Bitten by dog, sequela[ICD10: W54.0XXS] Diagnosis: Other fatigue[ICD10: R53.83] Diagnosis: Hypothyroidism, unspecified[ICD10: E03.9] Diagnosis: Muscle weakness (generalized)[ICD10: M62.81] Diagnosis: Generalized anxiety disorder[ICD10: F41.1] Jannette BLACK Why Not Give Back CPT-4: 66458 05/13/2019 ([id number]) NURSE/OUTPATIENT VISIT EST Diagnosis: Encounter for therapeutic drug level monitoring[ICD10: Z51.81] Jeanie CONNELL OfeAxel VARUN Why Not Give Back CPT-4: 89599 05/06/2019 ([id number]) OFFICE/OUTPATIENT VISIT EST Diagnosis: Bitten by dog, sequela[ICD10: W54.0XXS] Diagnosis: Pain in right wrist[ICD10: M25.531] Diagnosis: Abrasion of right upper arm, sequela[ICD10: S40.811S] Diagnosis: Abrasion of left upper arm, sequela[ICD10: S40.812S] Jannette Mayen JEANIE Hernandez DONISWILBERALBERTA Why Not Give Back CPT-4: 59130 05/02/2019 ([id number]) NURSE/OUTPATIENT VISIT EST Diagnosis: Encounter for therapeutic drug level monitoring[ICD10: Z51.81] Jeanie CONNELL OfeAxel DONISWILBERALBERTA Why Not Give Back CPT-4: 79641 04/07/2019 ([id number]) OFFICE/OUTPATIENT VISIT NEW Diagnosis: Encounter for therapeutic drug level monitoring[ICD10: Z51.81] Diagnosis: Chronic atrial fibrillation[ICD10: I48.2] Diagnosis: Essential (primary) hypertension[ICD10: I10] Diagnosis: Abnormal findings on diagnostic imaging of heart and coronary circulation[ICD10: R93.1] Diagnosis: Other forms of dyspnea[ICD10: R06.09] Diagnosis: Hypothyroidism, unspecified[ICD10: E03.9] Diagnosis: Mixed hyperlipidemia[ICD10: E78.2] Jeanie Hernandez VARUN Why Not Give Back CPT-4: 91122 03/08/2019 Plan of Care Planned Activity Notes Codes Status Date Visit Plan: 08/20/2021 Visit Diagnosis Plan: Left breast lump Discussion: [place] get US of left breast and soft tissue under breast and f/u with results. F/U for sooner for concerns. ICD-9 : 611.72 ICD-10 : N63.20 08/20/2021 Appointment: Jeanie Black WPtel: [phone] [id number] US CANCELED 08/20/2021 Appointment: Remedios Cavazos [facility] [phone] [facility] [facility] 08/20/2021 Patient Education: Patient Medication Summary Completed 08/20/2021 Appointment: Jeanie Black WPtel: [phone] [facility] US see note in chart from 08/08/21 (km) CANCELED 08/08/2021 Appointment: Jeanie Black WPtel: [phone] [facility] US LAB 07/19/2021 Appointment: Jeanie Black WPtel: [phone] [facility] US LAB 06/20/2021 Visit Diagnosis Plan: Severe obesity (BMI 35.0-39.9) w ith comorbidity Discussion: Discussed diet and exercise ICD-9 : 278.01 ICD-10 : E66.01 05/16/2021 Visit Diagnosis Plan: Obstructive sleep apnea syndrome Discussion: Per pulbautista note- order for bipap sent to [facility]- will call them to check, patient states [...] 05/16/2021 Appointment: Remedios Cavazos WPtel[facility] [phone] [facility] [facility] MEDICATION REVIEW 05/16/2021 Patient Education: Patient Medication Summary Completed 05/16/2021 Patient Education: isosorbide mononitrate- OptimizeRX Coupon [id number] https://www.Panna/sampleTastyNow.com/resources/getNorthern BrewerourMohound/61/j4w2c9s3-q928-026q-v3 Completed 05/16/2021 Patient Education: High Blood Pressure Co mpleted 05/16/2021 Appointment: Jeanie Black WPtel: [address] [place], [place] [id number] US LAB 04/11/2021 Appointment: Jeanie Black WPtel: [address] [place], [place] [id number] US CANCELED 03/27/2021 Appointment: Jeanie Black WPtel: [address] [place], [place] [phone] US LAB 03/15/2021 Visit Diagnosis Plan: Pulmonary [...] : I10 03/05/2021 Appointment: Jeanie Black WPtel: [address] [place], [place] [phone] US FOLLOW UP 03/05/2021 Patient Education: spironolactone- OptimizeRX Coupon 1 [id number] https://www.Panna/[employer]/resources/getResource/61/0qa53im0-6o8t-7y89-0c Completed 03/05/2021 Appointment: Jeanie Black WPtel: [phone] [id number] US LAB 02/22/2021 Visit Diagnosis Plan: Cheilitis [...] 02/19/2021 Appointment: Dirk Remedios WPtel: [phone] MEDICATION REVIEW 02/19/2021 Patient Education: Patient [...] ICD-10 : K13.0 01/16/2021 Appointment: Jannette Mayen [address] [place] [address] ACUTE ILLNESS 01/16/2021 Appointment: Jeanie Black WPtel: [phone] [facility] BP CHECK 11/19/2020 Visit Diagnosis Plan: Hypotension [...] : I95.9 11/12/2020 Appointment: Jannette Mayen [address] [facility] ACUTE ILLNESS 11/12/2020 Visit Diagnosis Plan: Thoracic back pain Discussion: w ill send order for PT through [facility]. call office with any new or worsening [...] ICD-10 : R42 10/12/2020 Appointment: Jannette Mayen [address] [place], [place] [address] ACUTE ILLNESS 10/12/2020 Visit Diagnosis Plan: Chronic atrial fibrillation Disc ussion: Following routinely with cardiology ICD-9 : 427.31 ICD-10 : I48.20 09/26/2020 Visit Diagnosis Plan: Essential (primary) hypertension Discussion: Stable ICD-9 : 401.9 ICD-10 : I10 09/26/2020 Visit Diagnosis Plan: Encounter for [facility] adult medical examination without [...] I50.32 09/26/2020 Appointment: Jeanie Black WPtel: [address] [place], [place] [address] Annual Well Visit 09/26/2020 Care Plan: Referral Order SNOMED-CT : 30 [id number] Pending 09/26/2020 Visit Diagnosis Plan: Chronic airway [...] : I48.20 08/27/2020 Appointment: Jeanie Black WPtel: [facility]8 [facility] US FOLLOW UP 08/27/2020 Visit Diagnosis Plan: [...] : I10 05/23/2020 Appointment: Jeanie Black WPtel: [address] [place], [place] [address] FOLLOW UP 05/23/2020 Appointment: Jaenie Black WPtel: [address] [place] [address] NURSE SERVICES 05/02/2020 Visit Diagnosis Plan: Chronic [...] : J44.9 03/20/2020 Appointment: Jeanie Black WPtel: [address] [place], [place] [address] TELEMEDICINE 03/20/2020 Patient Education: Coumadin- OptimizeRX Coupon [id number] https://www.[employer]/sampleTastyNow.com/resources/getResource/61/4s069a80-51t2-7vxf-5e Completed 03/20/2020 Patient Education: Coumadin- OptimizeRX Coupon [id number] https://www.Panna/[employer]/resources/getResource/61/0zg77y2w-4e9m-7kn2-ej Completed 03/20/2020 Appointment: Jeanie Black WPtel: [address] [place], [place] [phone] US LAB 01/20/2020 Visit Diagnosis Plan: History of recent fall Discussio n: Healing well Doing balance class at [facility] Follow Up: 3 months ICD-9 : V15.88 ICD-10 : Z91.81 12/15/2019 Visit Diagnosis Plan: COPD (chronic obstructive pulmon valeria disease) Discussion: Continue pulmonary rehab ICD-9 : 496 ICD-10 : J44.9 12/15/2019 Visit Diagnosis Plan: Long-term (current ) use of anticoagulants, INR goal 2.0-3.0 Discussion: PT/INR drawn ICD-9 : V58.61 ICD-10 : Z79.01 12/15/2019 Appointment: Jeanie Black WPtel: [address] [place], [place] [phone] US FOLLOW UP 12/15/2019 Patient Education: Coumadin- OptimizeRX Coupon [id number] https://www.Panna/[employer]/resources/getResource/61/o455wnza-jn82-6pjc-2r Completed 12/15/2019 Appointment: Jeanie Black WPtel: [address] [place] [address] [place] LAB 11/10/2019 Visit Diagnosis Plan: Post [...] J44.9 11/03/2019 Appointment: Jeanie Black WPtel: [phone] [place] [address] FOLLOW UP 11/03/2019 Care Plan: CT HEAD/BRAIN W/O DYE LOINC : 58183-9 Pending 11/01/2019 Visit Diagnosis Plan: Essential (primary) [...] : S05.12XA 10/31/2019 Appointment: Jannette Mayen [address] [place] [address] Hospital Follow Up 10/31/2019 Patient Education: High Blood Pressure Co mpleted 10/31/2019 Patient Education: losartan- OptimizeRX Coupon [id number] https://www.[employer].com/samplemd/resources/getResource/61/8i809173-2f19-1147-8s Completed 10/31/2019 Appointment: Jeanie Black WPtel: [phone] [place] [id number] FOLLOW UP 10/26/2019 Visit Diagnosis Plan: Long-term [...] : M54.10 10/11/2019 Appointment: [facility]en [facility] ACUTE ILLNESS 10/11/2019 Patient Education: cyclobenzaprine- OptimizeRX Coupon [id number] https://www.[employer]/samplemd/resources/getResource/61/03g4u7g5-73u2-7n48-69 Completed 10/11/2019 Visit Diagnosis Plan: Bitten by dog, sequela Discussio n: Still seeing counselor Still doing therapy--left 4th finger still not agile enough to play violin and feels like pinched nerve in neck on right--dscussed stretches, massage, accupuncture---patient had hired prosecuting attorney ICD-9 : 906.1 ICD-10 : W54.0XXS 09/20/2019 Visit Diagnosis Plan: Encounter for [facility] adult medical examination without [...] E78.2 09/20/2019 Appointment: Jeanie Black WPtel: [phone] [facility] Annual Well Visit 09/20/2019 Visit Diagnosis Plan: [...] ICD-10 : Z79.01 09/08/2019 Appointment: Jannette Mayen [address] [place] [address] ACUTE ILLNESS 09/08/2019 Appointment: Jeanie Black WPtel: [address] [place] [address] US CANCELED 08/16/2019 Appointment: Jeanie Black WPtel: [address] [place] [address] US LAB 07/29/2019 Appointment: Jeanie Black WPtel: [address] [place] [address] US LAB 07/18/2019 Appointment: Jeanie Black WPtel: [address] [place] [address] US LAB 07/06/2019 Visit Diagnosis Plan: Bitten [...] Appointment: Jeanie Black WPtel: [phone] KfjpizwvxZH[address] US FOLLOW UP 06/14/2019 Visit Diagnosis Plan: [...] hydrocodone several days ago. [facility] to [facility] concerns. ICD-9 [...] : R53.83 05/13/2019 Appointment: Jannette Mayen [address] [place], [place] [address] US FOLLOW UP 05/13/2019 Patient Education: carvedilol- OptimizeRX Coupon [id number] https://www.sampleTastyNow.com.com/samplemd/resources/getResource/61/15j2x745-2gzk-3528-4u Completed 05/13/2019 Patient Education: Xanax- OptimizeRX Coupon [id number] https://www.[employer].com/samplemd/resources/getResource/61/8002x5h6-1y98-8m2c-j7 1e-4g37272639e3.pdf Completed 05/13/2019 Appointment: Jeanie Blacktel: [address] [place], [place] [phone] US LAB 05/06/2019 Visit Diagnosis Plan: Abrasion [...] ICD-10 : M25.531 05/02/2019 Appointment: Jannette Mayen [address] [place] [address] ACUTE ILLNESS 05/02/2019 Care Plan: X-RAY EXAM OF WRIST right LOINC : 3 [id number] Pending 05/02/2019 Appointment: Jeanie Black WPtel: [address] [place], [place] [phone] US LAB 04/07/2019 Appointment: Jeanie Black WPtel: [address] [place], [place] [phone] US BP CHECK 03/22/2019 Visit Diagnosis Plan: [...] I10 03/08/2019 Appointment: Jeanie Black WPtel: [phone] [place] [address] NEW PATIENT 03/08/2019 Referral: Shona Viera WPtel: [facility] [address] Referral Appointment Requested Instructions No Instructions Medical Equipment No Medical Equipment data Health Concerns Section Health Concerns data not found Goals Section Goals data not found Interventions Section Interventions data not found Health Status Evaluations/Outcomes Section Health Status Evaluations/Outcomes data not found Advance Directives No Advance Directive data
--- OUTSIDE RECORDS SUMMARY | 2021-09-19 12:41 | XMS REPORT | CCD ---
Author Author Tricia Black D.O. 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 Name Role Phone PP Unavailable CCM Unavailable Summary Purpose Interface Exchange Insurance Providers Payer name Policy type / Coverage type Covered green party ID Effective Begin Date Effective End Date WPS MEDICARE PART B [place] Medicare Part B [id number] Unknown Unknown AARP Medicare Part B [id number] Unknown Unknown Family history Grandmother Diagnosis Age [...] Unknown Retired 03/08/[address]: 116249980 Has never smoked or chewed tobacco 03/08/[address]: 006040 Currently drinks alcohol 03/08 Has the patient [...] Instructions isosorbide mononitrate 10 mg tablet RxNorm: 452971 Take 1 Tablet(s) Oral two times a day 08/08/2021 No Stop Date Active losartan 100 mg tablet RxNorm: 578900 Take 1 Tablet(s) Oral QD 07/2411/02/2021 Active amoxicillin 500 mg capsule RxNorm: 604036 4 Capsule(s) Oral QD 1hr prior to dental cleaning 08/05/2021 08/05/2021 Inactive levothyroxine 50 mcg tablet RxNorm: 807074 TAKE 1 TABLE T BY MOUTH EVERY DAY. RECHECK LABS IN 2 MONTHS 08/04/2021 10/02/2021 Active potassium chloride ER 10 mEq tablet,extended release RxNorm: 181387 TAKE 1 TABLET BY MOUTH EVERY DAY 07/14/2021 10/11/2021 Active spironolactone 25 mg tablet RxNorm: 005490 1/2 Tablet(s) Oral QD No Stop Date Active isosorbide mononitrate 10 mg tablet RxNorm: 253969 Take 1 Tablet(s) Oral two times a day 05/16/2021 05/16/2021 Inactive isosorbide mononitrate ER 30 mg tablet,extended release 24 h r RxNorm: 072922 TABLET(S) 1 TABLET(S) PO NEEDED Tablet(s) Oral 05/16/2021 08/07/2021 Inactive Patient requests 90 days supply furosemide 40 mg tablet RxNorm: 741393 TAKE 1 TABLET BY MOUTH E VERY MORNING 05/07/2021 08/04/2021 Inactive isosorbide mononitrate 10 mg tablet RxNorm: 826856 Take 1 Tablet(s) Oral two times a day 04/26/2021 05/15/2021 Inactive isosorbide mononitrate 10 mg tablet RxNorm: 072435 Take 1 Tablet(s) Oral two times a day 04/25/2021 04/25/2021 Inactive potassium chloride ER 10 mEq tablet,extended release RxNorm: 576545 TAKE 1 TABLET BY MOUTH EVERY DAY 04/19/2021 04/19/2021 Inactive Coumadin 4 mg tablet RxNorm: 878165 1 Tablet(s) Oral Thursday04/11/2021 07/10/2021 Inactive Coumadin 2 mg tablet RxNorm: 260100 1 Tablet(s) Oral on Thursday and Thursday04/11/2021 07/10/2021 Inactive carvedilol 25 mg tablet RxNorm: 702478 1 Tablet(s) Oral two antolin es a day 04/03/2021 09/29/2021 Active Coumadin 2 mg tablet RxNorm: 247359 TAKE 1 TABLET BY [facility] ON THURSDAY AND Thursday03/26/2021 04/10/2021 Inactive Coumadin 4 mg tablet RxNorm: 414406 1 Tablet(s) Oral QD 02/26/2021 Inactive levothyroxine 50 mcg tablet RxNorm: 750148 1 Tablet(s) Oral QD Recheck labs in 2 months 02/26/2021 02/26/2021 Inactive Recheck labs in 2 months levothyroxine 50 mcg tablet RxNorm: 329067 1 Tablet(s) Oral QD Recheck labs in 2 months 02/26/2021 02/25/2021 Inactive Recheck labs in 2 months losartan 100 mg tablet RxNorm: 137486 TAKE 1 TABLET BY MOUTH 02/22/2021 08/20/2021 Inactive spironolactone 25 mg tablet RxNorm: 851583 1 Tablet(s) Oral QD 01/2303/04/2021 Inactive isosorbide mononitrate 10 mg tablet RxNorm: 909772 1 Ta blet(s) Oral two times a day 02/19/2021 02/25/2021 Inactive famotidine 20 mg tablet RxNorm: 379923 1 Tablet(s) Oral QD 02/20/2003/04/2021 Inactive levothyroxine 25 mcg tablet RxNorm: 716753 1 Tablet(s) Oral QD 03/0 07/202102/25/2021 Inactive atorvastatin 40 mg tablet RxNorm: 313015 1 Tablet(s) Or al QPM replaces pravastatin 01/29/2021 07/27/2021 Inactive furosemide 40 mg tablet RxNorm: 881933 TAKE 1 TABLET BY MOUTH E VERY MORNING 01/28/2021 01/28/2021 Inactive prednisone 10 mg tablet RxNorm: 550024 1 Tablet(s) Oral two antolin es a day 01/16/2021 01/19/2021 Inactive atorvastatin 40 mg tablet RxNorm: 660686 1 Tablet(s) Or al QPM replaces pravastatin 12/31/2020 01/28/2021 Inactive carvedilol 25 mg tablet RxNorm: 849422 TAKE 1 TABLET BY MOUTH T WICE DAILY 12/31/2020 04/02/2021 Inactive potassium chloride ER 10 mEq tablet,extended release RxNorm: 084957 TAKE 1 TABLET BY MOUTH EVERY DAY 12/31/2020 12/31/2020 Inactive losartan 100 mg tablet RxNorm: 649856 1 Tablet(s) Oral QD 12/03/2020 02/21/2021 Inactive Coumadin 4 mg tablet RxNorm: 248023 TAKE 1 TABLET BY [facility] THURSDAY THROUGH Thursday11/30/2020 02/25/2021 Inactive levothyroxine 25 mcg tablet RxNorm: 729405 1 Tablet(s) Oral QD 10/2401/28/2021 Inactive famotidine 20 mg tablet RxNorm: 379031 1 Tablet(s) Oral QD 11/19/20 20 01/15/2021 Inactive famotidine 20 mg tablet RxNorm: 795875 1 Tablet(s) Oral QD 11/19/20 20 11/18/2020 Inactive levothyroxine 50 mcg tablet RxNorm: 425563 [facility] 11/06/2020 01/29/2021 Inactive furosemide 40 mg tablet RxNorm: 602968 TAKE 1 TABLET BY MOUTH E VERY MORNING 11/05/2020 01/27/2021 Inactive atorvastatin 40 mg tablet RxNorm: 217032 1 Tablet(s) Or al QPM replaces pravastatin 10/22/2020 12/30/2020 Inactive atorvastatin 40 mg tablet RxNorm: 768751 1 Tablet(s) Or al QPM replaces pravastatin 10/22/2020 10/21/2020 Inactive spironolactone 25 mg tablet RxNorm: 409877 1 Tablet(s) Oral QAM 01/15/2021 Inactive carvedilol 25 mg tablet RxNorm: 348717 TAKE 1 TABLET BY MOUTH T WICE DAILY 10/04/2020 12/30/2020 Inactive pravastatin 40 mg tablet RxNorm: 100131 TAKE 1 TABLET BY MOUTH EVERY DAY 10/04/2020 12/31/2020 Inactive potassium chloride ER 10 mEq tablet,extended release RxNorm: 493201 TAKE 1 TABLET BY MOUTH EVERY DAY 10/04/2020 12/30/2020 Inactive isosorbide mononitrate ER 30 mg tablet,extended release 24 h r RxNorm: 238988 TABLET(S) 1 TABLET(S) PO NEEDED Oral 10/04/2020 02/18/2021 Inactive Patient requests 90 days supply furosemide 40 mg tablet RxNorm: 610141 TAKE 1 TABLET BY MOUTH E VERY MORNING 10/01/2020 11/04/2020 Inactive losartan 100 mg tablet RxNorm: 924405 TAKE 1 TABLET BY MOUTH 09/19/2020 12/02/2020 Inactive amlodipine 5 mg tablet RxNorm: 057207 1 Tablet(s) Oral QD 08/27/2020 11/11/2020 Inactive spironolactone 25 mg tablet RxNorm: 442979 1 Tablet(s) Oral QAM 03/202010/21/2020 Inactive levothyroxine 50 mcg tablet RxNorm: 799441 TAKE 1 TABLET BY ENE TH EVERY DAY 08/07/2020 11/04/2020 Inactive levothyroxine 50 mcg tablet RxNorm: 853438 TAKE 1 TABLET BY ENE TH EVERY DAY 08/06/2020 08/06/2020 Inactive amoxicillin 500 mg capsule RxNorm: 871595 4 Capsule(s) Oral QD 1hr prior to dental cleaning 07/31/2020 07/30/2020 Inactive amoxicillin 500 mg capsule RxNorm: 982363 4 Capsule(s) Oral QD 1hr prior to dental cleaning 07/31/2020 07/31/2020 Inactive potassium chloride ER 10 mEq tablet,extended release RxNorm: 726330 TAKE 1 TABLET BY MOUTH EVERY DAY 07/23/2020 10/03/2020 Inactive pravastatin 40 mg tablet RxNorm: 143512 TAKE 1 TABLET BY MOUTH EVERY DAY 07/23/2020 10/03/2020 Inactive carvedilol 25 mg tablet RxNorm: 764728 TAKE 1 TABLET BY MOUTH T WICE DAILY 07/23/2020 10/03/2020 Inactive losartan 100 mg tablet RxNorm: 773995 TAKE 1 TABLET BY MOUTH EV RANDI DAY 06/27/2020 09/18/2020 Inactive furosemide 40 mg tablet RxNorm: 333426 TAKE 1 TABLET BY MOUTH E VERY MORNING 06/08/2020 09/30/2020 Inactive Coumadin 4 mg tablet RxNorm: 887157 1 Tablet(s) Oral Thursday thr thursday06/07/2020 11/29/2020 Inactive Coumadin 2 mg tablet RxNorm: 092183 1 Tablet(s) Oral on and Thursday03/20/2020 03/19/2020 Inactive Coumadin 4 mg tablet RxNorm: 908684 1 Tablet(s) Oral Thursday thr thursday03/20/2020 06/06/2020 Inactive losartan 100 mg tablet RxNorm: 976094 TAKE 1 TABLET BY MOUTH EV RANDI DAY 03/20/2020 06/26/2020 Inactive Coumadin 2 mg tablet RxNorm: 258895 1 Tablet(s) Oral on and Thursday03/20/2020 02/25/2021 Inactive furosemide 40 mg tablet RxNorm: 314892 1 Tablet(s) Oral [facility] 020 06/07/2020 Inactive pravastatin 40 mg tablet RxNorm: 877328 TAKE 1 TABLET BY MOUTH EVERY DAY 02/07/2020 07/22/2020 Inactive losartan 100 mg tablet RxNorm: 908371 TAKE 1 TABLET BY MOUTH EV RANDI DAY 02/01/2020 03/19/2020 Inactive losartan 100 mg tablet RxNorm: 359747 TAKE 1 TABLET BY MOUTH EV RANDI DAY 01/17/2020 01/31/2020 Inactive Coumadin 2 mg tablet RxNorm: 196221 1 Tablet(s) Oral on and Thursday12/15/2019 12/15/2019 Inactive furosemide 40 mg tablet RxNorm: 000892 TAKE 1 TABLET BY MOUTH E VERY MORNING 12/14/2019 03/12/2020 Inactive pravastatin 40 mg tablet RxNorm: 819464 TAKE 1 TABLET BY MOUTH EVERY DAY 11/27/2019 02/06/2020 Inactive losartan 100 mg tablet RxNorm: 722390 1 Tablet(s) Oral QD 11/10/2019 01/16/2020 Inactive isosorbide mononitrate ER 30 mg tablet,extended release 24 h r RxNorm: 013868 TABLET(S) 1 TABLET(S) PO NEEDED 11/10/2019 05/08/2020 Inactive Patient requests 90 days supply carvedilol 25 mg tablet RxNorm: 692164 1 Tablet(s) Oral two antolin es a day 11/10/2019 05/08/2020 Inactive Coumadin 2 mg tablet RxNorm: 854913 1 Tablet(s) Oral on and Thursday11/10/2019 12/14/2019 Inactive losartan 100 mg tablet RxNorm: 871216 1 Tablet(s) Oral QD 11/10/2019 11/09/2019 Inactive levothyroxine 50 mcg tablet RxNorm: 876296 1 Tablet(s) Oral QD 10/2310/21/2020 Inactive Coumadin 4 mg tablet RxNorm: 210785 1 Tablet(s) Oral Thursday thr thursday11/10/2019 11/10/2019 Inactive losartan 50 mg tablet RxNorm: 872372 2 Tablet(s) Oral QD 11/01/2019 1 01/10/2019 Inactive potassium chloride ER 10 mEq capsule,extended release RxNorm : 464725 1 Capsule(s) Oral QD 10/26/2019 12/14/2019 Inactive potassium chloride ER 10 mEq tablet,extended release RxNorm: 641462 1 TABLET(S) ORAL QD 10/22/2019 04/18/2020 Inactive Replaces PA on 1 0MEQ Capsules Aspir-81 mg tablet,delayed release RxNorm: 831742 1 Tablet(s) O ral QD 10/11/2019 No Stop Date Active cyclobenzaprine 5 mg tablet RxNorm: 838565 1 Tablet(s) Oral two times a day as needed for muscle spasm 10/11/2019 03/19/2020 Inactive Coumadin 4 mg tablet RxNorm: 514732 1 Tablet(s) Oral Mo through Thursday and 1/2 tablet (2mg) on Sat/Sun 10/11/2019 11/09/2019 Inactive potassium chloride ER 10 mEq tablet,extended release RxNorm: 570413 1 Tablet(s) Oral QD 09/22/2019 09/21/2019 Inactive Replaces PA on 1 0MEQ Capsules potassium chloride ER 10 mEq tablet,extended release RxNorm: 229318 1 Tablet(s) Oral QD 09/22/2019 10/10/2019 Inactive Replaces PA on 1 0MEQ Capsules potassium chloride ER 10 mEq capsule,extended release RxNorm : 546387 1 Capsule(s) Oral QD 09/21/2019 09/21/2019 Inactive carvedilol 25 mg tablet RxNorm: 724929 1 Tablet(s) Oral two antolin es a day 08/23/2019 11/09/2019 Inactive isosorbide mononitrate ER 30 mg tablet,extended release 24 h r RxNorm: 675657 TABLET(S) 1 TABLET(S) PO NEEDED 08/22/2019 10/04/2020 Inactive Patient requests 90 days supply isosorbide mononitrate ER 30 mg tablet,extended release 24 h r RxNorm: 203177 Tablet(s) 1 TABLET(S) PO NEEDED 08/16/2019 08/21/2019 Inactive Patient requests 90 days supply levothyroxine 50 mcg tablet RxNorm: 629548 1 Tablet(s) PO QD 201811/09/2019 Inactive isosorbide mononitrate ER 30 mg tablet,extended release 24 h r RxNorm: 446469 Tablet(s) 1 TABLET(S) PO NEEDED 06/27/2019 08/15/2019 Inactive Patient requests 90 days supply isosorbide mononitrate ER 30 mg tablet,extended release 24 h r RxNorm: 036602 1 Tablet(s) PO QD as needed 06/27/2019 06/27/2019 Inactive Neris ent requests 90 days supply carvedilol 25 mg tablet RxNorm: 227191 1 TABLET(S) PO BID 06/27/2019 08/22/2019 Inactive furosemide 40 mg tablet RxNorm: 981076 1 Tablet(s) PO QAM 06/21/2019 12/13/2019 Inactive carvedilol 25 mg tablet RxNorm: 147017 1 Tablet(s) PO BID 05/13/2019 06/26/2019 Inactive Xanax 0.25 mg tablet RxNorm: 661369 1/2 Tablet(s) PO Q6H as needed 05/13/2019 09/07/2019 Inactive levothyroxine 50 mcg tablet RxNorm: 917187 1 Tablet(s) PO QD 201808/07/2019 Inactive losartan 50 mg tablet RxNorm: 200037 1 Tablet(s) PO QD 04/26/2019 Inactive losartan 50 mg tablet RxNorm: 291510 1 Tablet(s) PO QD 04/20/201901/2019 Inactive pravastatin 40 mg tablet RxNorm: 521714 1 Tablet(s) PO QD 04/07/2019 06/05/2019 Inactive isosorbide mononitrate ER 30 mg tablet,extended release 24 h r RxNorm: 565688 1 Tablet(s) PO as needed 04/07/2019 04/06/2019 Inactive isosorbide mononitrate ER 30 mg tablet,extended release 24 h r RxNorm: 021427 1 TABLET(S) PO NEEDED 04/07/2019 06/26/2019 Inactive Patient requests 90 days supply losartan 50 mg tablet RxNorm: 849630 1 Tablet(s) PO QD 03/22/2019 Inactive Prolia subcutaneous RxNorm: 061505 subcutaneous 02/19/2021 A ctive carvedilol 25 mg tablet RxNorm: 065671 1 Tablet(s) PO BID 05/13/2019 05/12/2019 Inactive losartan 50 mg tablet RxNorm: 902424 1 Tablet(s) PO QD 03/22/2019 Inactive Ventolin HFA 90 mcg/actuation aerosol inhaler RxNorm: 594670 1-2 Puff(s) INH as needed 09/08/2019 09/07/2019 Inactive furosemide 40 mg tablet RxNorm: 081775 1 Tablet(s) PO QAM 06/21/2019 06/20/2019 Inactive pravastatin 40 mg tablet RxNorm: 960628 1 Tablet(s) PO QD 04/07/2019 04/06/2019 Inactive Coumadin 2 mg tablet RxNorm: 782143 1 Tablet(s) PO Mon, Fri, Sat and Sun then 2 tablets (4mg) on , Thu and 10/11/2019 10/10/2019 Inactive isosorbide mononitrate ER 30 mg tablet,extended release 24 h r RxNorm: 903736 Tablet(s) PO as needed 04/07/2019 04/06/2019 Inactive Women's Multivitamin 18 mg iron-400 mcg-500 mg tablet RxNorm : 1 Tablet(s) PO QD 09/08/2019 09/07/2019 Inactive Vitamin D3 1000 units Capsule RxNorm: 3 Capsule(s) PO QD 9 09/07/2019 Inactive vitamin B complex capsule RxNorm: 1 Capsule(s) PO QD 09/08/2019 Inactive potassium chloride ER 10 mEq capsule,extended release RxNorm : 129633 1 Capsule(s) PO QD 09/21/2019 09/20/2019 Inactive levothyroxine 50 mcg tablet RxNorm: 356903 1 Tablet(s) PO QD 201804/25/2019 Inactive Medication Administered No Medication Administered data Immunizations Vaccine Codes Date Status Influenza CVX: 135 07/06/2020 Pneumovax CVX: 33 02/03/2020 Influenza CVX: 135 07/02/2019 Results Observation Observation Code Item Item Code Result Date S ervice Location PT 6379046 PT 28.3 Seconds 07/19/2021 Unknow n PT [id number] INR 2.6 07/19/2021 Unknown COMPREHENSIVE METABOLIC 37428 AST 20 U/L 2020 Unknown COMPREHENSIVE METABOLIC 35649 ALT 16 U/L 2020 Unknown COMPREHENSIVE METABOLIC 78675 BUN 35 mg/dL 2020 Unknown COMPREHENSIVE METABOLIC 62438 ALBUMIN 4.1 g/dL 2020 Unknown COMPREHENSIVE METABOLIC 47752 CHLORIDE 105 mmol/L 06/20 Unknown COMPREHENSIVE METABOLIC 04532 Bili Total 1.1 mg/dL 06/20 Unknown COMPREHENSIVE METABOLIC 05594 ALK PHOS 103 U/L 2020 Unknown COMPREHENSIVE METABOLIC 47976 SODIUM 139 mmol/L 06/20 Unknown COMPREHENSIVE METABOLIC 05290 CREATININE 0.99 mg/dL 05/24 Unknown COMPREHENSIVE METABOLIC 92881 CALCIUM 8.8 mg/dL 2020 Unknown COMPREHENSIVE METABOLIC 95062 POTASSIUM 4.7 mmol/L 06/20 Unknown COMPREHENSIVE METABOLIC 59692 Total Protein 6.2 g/dL Unknown COMPREHENSIVE METABOLIC 05733 Glucose 83 mg/dL 2020 Unknown COMPREHENSIVE METABOLIC 19978 Bicarbonate 27 mmol/L 05/24 Unknown COMPREHENSIVE METABOLIC 62162 AGAP 7 mmol/L 2020 Unknown COMPLETE BLOOD COUNT 8092436 WBC 4.5 10e9/L 06/20/20 21 Unknown COMPLETE BLOOD COUNT 0815315 RBC 3.99 10e12/L 2020 Unknown COMPLETE BLOOD COUNT [id number] HEMOGLOBIN 11.8 g/dL 06/20/20 21 Unknown COMPLETE BLOOD COUNT [id number] HEMATOCRIT 36.6 % 06/20/20 21 Unknown COMPLETE BLOOD COUNT [id number] MCV 91.7 fL 1 Unknown COMPLETE BLOOD COUNT [id number] MCH 29.6 pg 1 Unknown COMPLETE BLOOD COUNT 7364831 MCHC 32.2 g/dL 1 Unknown COMPLETE BLOOD COUNT 0775249 PLATELET COUNT 180 10e9/L Unknown COMPLETE BLOOD COUNT 4224362 Mean Plt Volume 11.1 fL Unknown COMPLETE BLOOD COUNT 2342975 Neut Auto 64.7 % 1 Unknown COMPLETE BLOOD COUNT 1143470 Lymph Auto 19.6 % 06/20/20 21 Unknown COMPLETE BLOOD COUNT 4401882 [place] Auto 13.5 % 1 Unknown COMPLETE BLOOD COUNT 5383963 RDW 15.1 % 1 Unknown COMPLETE BLOOD COUNT 2876537 Eos Auto 1.8 % 1 Unknown COMPLETE BLOOD COUNT 9196920 Baso Auto 0.4 % 1 Unknown COMPLETE BLOOD COUNT 7444397 Neutrophil Abs 2.91 10e9/L Unknown COMPLETE BLOOD COUNT [id number] Lymphocyte Abs 0.88 10e9/L Unknown COMPLETE BLOOD COUNT [id number] Monocyte Abs 0.61 10e9/L 05/24 Unknown COMPLETE BLOOD COUNT [id number] Eosinophil Abs 0.08 10e9/L Unknown COMPLETE BLOOD COUNT 3248452 RDW-SD 49.5 fL 1 Unknown COMPLETE BLOOD COUNT [id number] Basophil Abs 0.02 10e9/L 05/24 Unknown GFR CALC 5664320 GFR Non Afr Amr 53 mL/min 06/20/2021 Unk nown GFR CALC [id number] GFR Afr Amr >60 mL/min 06/20/2021 Unknow n PT [id number] PT 27.4 Seconds 06/20/2021 Unknow n PT [id number] INR 2.5 06/20/2021 Unknown PT [id number] PT 25.8 Seconds 05/21/2021 Unknow n PT [id number] INR 2.3 05/21/2021 Unknown FREE T4 86784 T4 Free 1.19 ng/dL 04/11/2021 Unknown PT [id number] PT 33.6 Seconds 04/11/2021 Unknow n PT [id number] INR 3.3 04/11/2021 Unknown THYROID STIMULATING HORMONE 30173 TSH 3.912 uIU/mL 04/11/2021 Unknown PT [id number] PT 33.1 Seconds 03/15/2021 Unknow n PT [id number] INR 3.2 03/15/2021 Unknown PT [id number] PT 24.6 Seconds 05/23/2020 Unknow n PT [id number] INR 2.2 05/23/2020 Unknown PT [id number] PT 31.4 Seconds 10/26/2019 Unknow n PT [id number] INR 2.9 10/26/2019 Unknown PT [id number] PT 17.6 Seconds 10/11/2019 Unknow n PT [id number] INR 1.4 10/11/2019 Unknown PT [id number] PT 23.7 Seconds 09/08/2019 Unknow n PT [id number] INR 2.0 09/08/2019 Unknown PT [id number] PT 23.2 Seconds 07/29/2019 Unknow n PT [id number] INR 2.0 07/29/2019 Unknown PT [id number] PT 14.3 Seconds 07/18/2019 Unknow n PT [id number] INR 1.1 07/18/2019 [place] [address] Glucose 75 mg/dL 07/06 [place] [address] CREATININE 0.61 mg/dL [place] [address] BUN 15 mg/dL 07/06 [place] [address] SODIUM 142 mmol/L 06/23 [place] [address] POTASSIUM 4.0 mmol/L 06/23 [place] [address] CHLORIDE 106 mmol/L 06/23 [place] [address] Bicarbonate 28 mmol/[place] [address] AGAP 8 mmol/L 07/06 [place] [address] CALCIUM 9.3 mg/dL 07/06 Unknown PT [id number] PT 17.4 Seconds 07/06/2019 Unknow n PT [id number] INR 1.4 07/06/2019 Unknown GFR CALC 1504453 GFR Non Afr Amr >60 mL/min 07/06/2019 Un known GFR CALC [id number] GFR Afr Amr >60 mL/min 07/06/2019 Unknow n COMPLETE BLOOD COUNT [id number] WBC 4.7 10e9/L 07/06/20 19 Unknown COMPLETE BLOOD COUNT [id number] RBC 4.19 10e12/L 2018 Unknown COMPLETE BLOOD COUNT [id number] HEMOGLOBIN 12.6 g/dL 07/06/20 19 Unknown COMPLETE BLOOD COUNT [id number] HEMATOCRIT 39.4 % 07/06/20 19 Unknown COMPLETE BLOOD COUNT 7089055 MCV 94.0 fL 9 Unknown COMPLETE BLOOD COUNT 2250549 MCH 30.1 pg 9 Unknown COMPLETE BLOOD COUNT 5732352 MCHC 32.0 g/dL 9 Unknown COMPLETE BLOOD COUNT [id number] PLATELET COUNT 160 10e9/L Unknown COMPLETE BLOOD COUNT 4325955 Mean Plt Volume 11.0 fL Unknown COMPLETE BLOOD COUNT 2253294 Neut Auto 56.6 % 9 Unknown COMPLETE BLOOD COUNT [id number] Lymph Auto 27.0 % 07/06/20 19 Unknown COMPLETE BLOOD COUNT [id number] [place] Auto 13.7 % 9 Unknown COMPLETE BLOOD COUNT [id number] RDW 14.6 % 9 Unknown COMPLETE BLOOD COUNT 3369091 Eos Auto 2.1 % 9 Unknown COMPLETE BLOOD COUNT 9767643 Baso Auto 0.6 % 9 Unknown COMPLETE BLOOD COUNT 5277521 Neutrophil Abs 2.66 10e9/L Unknown COMPLETE BLOOD COUNT 5754296 Lymphocyte Abs 1.27 10e9/L Unknown COMPLETE BLOOD COUNT [id number] Monocyte Abs 0.64 10e9/L 06/23 Unknown COMPLETE BLOOD COUNT [id number] Eosinophil Abs 0.10 10e9/L Unknown COMPLETE BLOOD COUNT 9195838 RDW-SD 48.7 fL 9 Unknown COMPLETE BLOOD COUNT [id number] Basophil Abs 0.03 10e9/L 06/23 Unknown COMPLETE BLOOD COUNT [id number] WBC 4.6 10e9/L 06/14/20 19 Unknown COMPLETE BLOOD COUNT 6477571 RBC 4.16 10e12/L 2018 Unknown COMPLETE BLOOD COUNT [id number] HEMOGLOBIN 12.6 g/dL 06/14/20 19 Unknown COMPLETE BLOOD COUNT [id number] HEMATOCRIT 39.1 % 06/14/20 19 Unknown COMPLETE BLOOD COUNT [id number] MCV 94.0 fL 9 Unknown COMPLETE BLOOD COUNT 6076065 MCH 30.3 pg 9 Unknown COMPLETE BLOOD COUNT 2136485 MCHC 32.2 g/dL 9 Unknown COMPLETE BLOOD COUNT 2812851 PLATELET COUNT 167 10e9/L Unknown COMPLETE BLOOD COUNT 8078009 Mean Plt Volume 10.9 fL Unknown COMPLETE BLOOD COUNT 6868813 Neut Auto 59.6 % 9 Unknown COMPLETE BLOOD COUNT 7308862 Lymph Auto 24.1 % 06/14/20 19 Unknown COMPLETE BLOOD COUNT [id number] [place] Auto 14.0 % 9 Unknown COMPLETE BLOOD COUNT 7796055 RDW 14.8 % 9 Unknown COMPLETE BLOOD COUNT [id number] Eos Auto 1.9 % 9 Unknown COMPLETE BLOOD COUNT 7251726 Baso Auto 0.4 % 9 Unknown COMPLETE BLOOD COUNT 6975510 Neutrophil Abs 2.74 10e9/L Unknown COMPLETE BLOOD COUNT [id number] Lymphocyte Abs 1.11 10e9/L Unknown COMPLETE BLOOD COUNT [id number] Monocyte Abs 0.64 10e9/L 05/24 Unknown COMPLETE BLOOD COUNT 9693097 Eosinophil Abs 0.09 10e9/L Unknown COMPLETE BLOOD COUNT [id number] RDW-SD 49.3 fL 9 Unknown COMPLETE BLOOD COUNT [id number] Basophil Abs 0.02 10e9/L 05/24 Unknown PT [id number] PT 22.3 Seconds 06/14/2019 Unknow n PT [id number] INR 1.9 06/14/2019 Unknown COMPLETE BLOOD COUNT [id number] WBC 4.0 10e9/L 05/13/20 19 Unknown COMPLETE BLOOD COUNT 1407312 RBC 3.82 10e12/L 2018 Unknown COMPLETE BLOOD COUNT [id number] HEMOGLOBIN 11.5 g/dL 05/13/20 19 Unknown COMPLETE BLOOD COUNT [id number] HEMATOCRIT 36.4 % 05/13/20 19 Unknown COMPLETE BLOOD COUNT [id number] MCV 95.3 fL 9 Unknown COMPLETE BLOOD COUNT 8214767 MCH 30.1 pg 9 Unknown COMPLETE BLOOD COUNT 7388511 MCHC 31.6 g/dL 9 Unknown COMPLETE BLOOD COUNT 5228620 PLATELET COUNT 175 10e9/L Unknown COMPLETE BLOOD COUNT 9949975 Mean Plt Volume 10.5 fL Unknown COMPLETE BLOOD COUNT 9007689 Neut Auto 63.2 % 9 Unknown COMPLETE BLOOD COUNT 0558155 Lymph Auto 22.0 % 05/13/20 19 Unknown COMPLETE BLOOD COUNT 0380217 [place] Auto 12.1 % 9 Unknown COMPLETE BLOOD COUNT 3970943 RDW 14.9 % 9 Unknown COMPLETE BLOOD COUNT 2445800 Eos Auto 2.2 % 9 Unknown COMPLETE BLOOD COUNT 4881183 Baso Auto 0.5 % 9 Unknown COMPLETE BLOOD COUNT 5935881 Neutrophil Abs 2.53 10e9/L Unknown COMPLETE BLOOD COUNT [id number] Lymphocyte Abs 0.88 10e9/L Unknown COMPLETE BLOOD COUNT 7816581 Monocyte Abs 0.48 10e9/L 04/24 Unknown COMPLETE BLOOD COUNT [id number] Eosinophil Abs 0.09 10e9/L Unknown COMPLETE BLOOD COUNT [id number] RDW-SD 49.6 fL 9 Unknown COMPLETE BLOOD COUNT [id number] Basophil Abs 0.02 10e9/L 04/24 Unknown COMPREHENSIVE METABOLIC 08531 AST 18 U/L 2018 Unknown COMPREHENSIVE METABOLIC 04040 ALT 14 U/L 2018 Unknown COMPREHENSIVE METABOLIC 14367 BUN 15 mg/dL 2018 Unknown COMPREHENSIVE METABOLIC 16492 ALBUMIN 4.0 g/dL 2018 Unknown COMPREHENSIVE METABOLIC 51407 CHLORIDE 108 mmol/L 05/13 Unknown COMPREHENSIVE METABOLIC 99917 Bili Total 0.9 mg/dL 05/13 Unknown COMPREHENSIVE METABOLIC 62632 ALK PHOS 84 U/L 2018 Unknown COMPREHENSIVE METABOLIC 59003 SODIUM 142 mmol/L 05/13 Unknown COMPREHENSIVE METABOLIC 60798 CREATININE 0.72 mg/dL 04/24 Unknown COMPREHENSIVE METABOLIC 14350 CALCIUM 8.9 mg/dL 2018 Unknown COMPREHENSIVE METABOLIC 30641 POTASSIUM 4.0 mmol/L 05/13 Unknown COMPREHENSIVE METABOLIC 61363 Total Protein 5.5 g/dL Unknown COMPREHENSIVE METABOLIC 27707 Glucose 95 mg/dL 2018 Unknown COMPREHENSIVE METABOLIC 50002 Bicarbonate 27 mmol/L 04/24 Unknown COMPREHENSIVE METABOLIC 26492 AGAP 7 mmol/L 2018 Unknown GFR CALC [id number] GFR Non Afr Amr >60 mL/min 05/13/2019 Un known GFR CALC 5945587 GFR Afr Amr >60 mL/min 05/13/2019 Unknow n THYROID STIMULATING HORMONE 90182 TSH 2.669 uIU/mL 05/13/2019 Unknown FREE T4 87835 T4 Free 1.19 ng/dL 05/13/2019 Unknown PT [id number] PT 24.2 Seconds 05/06/2019 Unknow n PT [id number] INR 2.1 05/06/2019 Unknown PT [id number] PT 24.1 Seconds 03/08/2019 Unknow n PT [id number] INR 2.9 03/08/2019 Unknown Procedures Procedure Codes Date ROUTINE VENIPUNCTURE CPT-4: 98064 07/19/2021 PROTHROMBIN TIME CPT-4: 72157 07/19/2021 ROUTINE VENIPUNCTURE CPT-4: 42540 06/20/2021 COMPREHEN METABOLIC PANEL CPT-4: 48383 06/20/2021 COMPLETE CBC W/AUTO DIFF WBC CPT-4: 44872 06/20/2021 PROTHROMBIN TIME CPT-4: 84389 06/20/2021 PT CPT-4: 5908450 05/16/2021 ROUTINE VENIPUNCTURE CPT-4: 14671 05/16/2021 ROUTINE VENIPUNCTURE CPT-4: 58079 04/11/2021 PROTHROMBIN TIME CPT-4: 98234 04/11/2021 ASSAY OF FREE THYROXINE CPT-4: 40477 04/11/2021 ASSAY THYROID STIM HORMONE CPT-4: 82492 04/11/2021 ROUTINE VENIPUNCTURE CPT-4: 27775 03/15/2021 PT CPT-4: 5971877 03/15/2021 ROUTINE VENIPUNCTURE CPT-4: 87416 02/22/2021 COMPREHEN METABOLIC PANEL CPT-4: 96284 02/22/2021 ASSAY OF FREE THYROXINE CPT-4: [id number] 02/22/2021 ASSAY THYROID STIM HORMONE CPT-4: 67040 02/22/2021 COMPLETE CBC W/AUTO DIFF WBC CPT-4: 93344 02/22/2021 PROTHROMBIN TIME CPT-4: 56067 02/22/2021 LIPID PANEL CPT-4: 93381 02/22/2021 PPPS, subseq visit CPT-4: G0439 09/26/2020 ROUTINE VENIPUNCTURE CPT-4: 70718 05/23/2020 PROTHROMBIN TIME CPT-4: 41176 05/23/2020 ROUTINE VENIPUNCTURE CPT-4: 27068 01/20/2020 PT CPT-4: 9753438 01/20/2020 ROUTINE VENIPUNCTURE CPT-4: 98510 12/15/2019 PROTHROMBIN TIME CPT-4: 54204 12/15/2019 ROUTINE VENIPUNCTURE CPT-4: 51730 11/10/2019 PROTHROMBIN TIME CPT-4: 50712 11/10/2019 PROTHROMBIN TIME CPT-4: 57956 10/26/2019 ROUTINE VENIPUNCTURE CPT-4: 28886 10/26/2019 ROUTINE VENIPUNCTURE CPT-4: 29352 10/11/2019 PT CPT-4: 7124280 10/11/2019 PPPS, initial visit CPT-4: G0438 09/20/2019 ROUTINE VENIPUNCTURE CPT-4: 76095 09/08/2019 PT CPT-4: 5636144 09/08/2019 THER/PROPH/DIAG INJ SC/IM CPT-4: 69247 09/08/2019 TRIAMCINOLONE ACET INJ NOS CPT-4: J3301 09/08/2019 ROUTINE VENIPUNCTURE CPT-4: 42920 07/29/2019 PT CPT-4: 7244593 07/29/2019 ROUTINE VENIPUNCTURE CPT-4: 49805 07/18/2019 PT CPT-4: 2307879 07/18/2019 METABOLIC PANEL TOTAL CA CPT-4: 99331 07/06/2019 COMPLETE CBC W/AUTO DIFF WBC CPT-4: 11169 07/06/2019 PROTHROMBIN TIME CPT-4: 51203 07/06/2019 ROUTINE VENIPUNCTURE CPT-4: 49961 06/14/2019 PROTHROMBIN TIME CPT-4: 31960 06/14/2019 COMPLETE CBC W/AUTO DIFF WBC CPT-4: 71479 06/14/2019 ROUTINE VENIPUNCTURE CPT-4: 89539 05/13/2019 COMPREHEN METABOLIC PANEL CPT-4: 09028 05/13/2019 COMPLETE CBC W/AUTO DIFF WBC CPT-4: 29608 05/13/2019 ASSAY THYROID STIM HORMONE CPT-4: 86386 05/13/2019 ASSAY OF FREE THYROXINE CPT-4: 22023 05/13/2019 PT CPT-4: 3533659 05/06/2019 ROUTINE VENIPUNCTURE CPT-4: 28175 05/06/2019 PT CPT-4: 5444828 04/07/2019 ROUTINE VENIPUNCTURE CPT-4: 09094 04/07/2019 ROUTINE VENIPUNCTURE CPT-4: 41220 03/08/2019 PROTHROMBIN TIME CPT-4: 38521 03/08/2019 Vital Signs Date Vital 08/20/2021 Blood Pressure 1: 127/69 Code: 8480-6 Heart Rate 1: 84 bpm Respiratory Rate: 17 bpm SpO2: 98% Temperature: 36.7 (C) / 98.1 (F) We ight: 208 lbs Code: 45390-2 05/16/2021 Blood Pressure 1: 136/64 Code: 8480-6 BMI: 37.0 Code: 69427-3 Heart Rate 1: 61 bpm Height: 5'3" Code: 8302-2 Respiratory Rate: 16 bpm SpO2: 98% Temperature: 36.2 (C) / 97.1 (F) Weight: 212 lbs Code: 49686-5 03/05/2021 Blood Pressure 1: 134/76 Code: 8480-6 Heart Rate 1: 66 bpm Respiratory Rate: 16 bpm SpO2: 100% Temperature: 37.1 (C) / 98.7 (F) We ight: 203 lbs Code: 94391-8 02/19/2021 Blood Pressure 1: 126/70 Code: 8480-6 BMI: 35.4 Code: 68321-4 Heart Rate 1: 72 bpm Height: 5'3" Code: 8302-2 Respiratory Rate: 16 bpm SpO2: 99% Temperature: 36.3 (C) / 97.3 (F) Weight: 203 lbs Code: 12998-7 01/16/2021 Blood Pressure 1: 112/74 Code: 8480-6 Heart Rate 1: 76 bpm Respiratory Rate: 20 bpm Temperature: 36.7 (C) / 98.0 (F) Weight: 205 lbs Code : 29999-8 11/19/2020 Blood Pressure 1: 120/78 Code: 8480-6 Heart Rate 1: 88 bpm Temperature: 36.6 (C) / 97.8 (F) 11/12/2020 Blood Pressure 1: 110/57 Code: 8480-6 Heart Rate 1: 68 bpm Respiratory Rate: 15 bpm SpO2: 100% Weight: 202 lbs Code: 88243 -7 10/12/2020 Blood Pressure 1: 114/70 Code: 8480-6 Heart Rate 1: 84 bpm Respiratory Rate: 18 bpm SpO2: 98% Temperature: 36.7 (C) / 98.0 (F) 09/26/2020 Blood Pressure 1: 120/72 Code: 8480-6 BMI: 35.2 Code: 63742-4 Heart Rate 1: 76 bpm Height: 5'3" Code: 8302-2 Respiratory Rate: 20 bpm SpO2: 97% Temperature: 36.7 (C) / 98.0 (F) Weight: 202 lbs Code: 65424-5 08/27/2020 Blood Pressure 1: 126/82 Code: 8480-6 Heart Rate 1: 80 bpm Respiratory Rate: 20 bpm Temperature: 36.2 (C) / 97.1 (F) Weight: 198 lbs Code : 68691-6 05/23/2020 Blood Pressure 1: 120/78 Code: 8480-6 Heart Rate 1: 68 bpm Respiratory Rate: 20 bpm SpO2: 97% Temperature: 36.4 (C) / 97.5 (F) We ight: 200 lbs Code: 32327-9 05/02/2020 Blood Pressure 1: 133/81 Code: 8480-6 Heart Rate 1: 74 bpm Weight: 202 lbs Code: 12051-1 12/15/2019 Blood Pressure 1: 126/82 Code: 8480-6 Heart Rate 1: 64 bpm Respiratory Rate: 20 bpm SpO2: 97% Temperature: 36.6 (C) / 97.8 (F) We ight: 201 lbs Code: 69278-2 11/03/2019 Blood Pressure 1: 142/82 Code: 8480-6 [...] / 98.1 (F) Weight: 204 lbs Code: 09761-2 09/20/2019 Blood Pressure 1: 122/68 Code: 8480-6 BMI: 35.0 Code: 47464-8 Heart Rate 1: 72 bpm Height: 5'3" Code: 8302-2 Respiratory Rate: 18 bpm SpO2: 95% Temperature: 36.8 (C) / 98.3 (F) Weight: 201 lbs Code: 81698-9 09/08/2019 Blood Pressure 1: 118/72 Code: 8480-6 Heart Rate 1: 82 bpm SpO2: 97% Temperature: 36.3 (C) / 97.4 (F) Weight: 208 lbs Code: 84419-4 06/14/2019 Blood Pressure 1: 128/84 Code: 8480-6 Heart Rate 1: 72 bpm Respiratory Rate: 20 bpm SpO2: 98% Temperature: 36.7 (C) / 98.1 (F) We ight: 209 lbs Code: 07073-1 05/13/2019 Blood Pressure 1: 144/90 Code: 8480-6 Heart Rate 1: 88 bpm Respiratory Rate: 24 bpm SpO2: 96% Temperature: 37.1 (C) / 98.8 (F) We ight: 210 lbs Code: 42680-6 05/02/2019 Blood Pressure 1: 128/80 Code: 8480-6 Heart Rate 1: 84 bpm Respiratory Rate: 20 bpm SpO2: 95% Temperature: 36.6 (C) / 97.9 (F) We ight: 209 lbs Code: 88714-8 03/22/2019 Blood Pressure 1: 122/70 Code: 8480-6 He art Rate 1: 85 bpm 03/08/2019 Blood Pressure 1: 114/78 Code: 8480-6 BMI: 36.1 Code: 76728-2 Heart Rate 1: 76 bpm Height: 5'3" Code: 8302-2 Respiratory Rate: 20 bpm SpO2: 97% Temperature: 37.1 (C) / 98.8 (F) Weight: 207 lbs Code: 02219-3 Functional Status No Functional Status data Reason [...] Left breast lump[ICD10: N63.20] Remedios ANGELES CPT-4: 84837 08/20/2021 ([id number]) NURSE/OUTPATIENT VISIT EST Diagnosis: Long-term (current) use of anticoagulants, INR goal 2.0-3.0[ICD10: Z79.01] Jeanie JENNINGSLINE David BLACK [employer] CPT-4: 55193 07/19/2021 ([id number]) NURSE/OUTPATIENT VISIT EST Diagnosis: Essential (primary) hypertension[ICD10: I10] Diagnosis: Chronic atrial fibrillation[ICD10: I48.20] Diagnosis: Long-term (current) use of anticoagulants, INR goal 2.0-3.0[ICD10: Z79.01] Diagnosis: Anemia, unspecified[ICD10: D64.9] Jeanie TURK Fidel BLACK [employer] CPT-4: 04061 06/20/2021 ([id number]) OFFICE/OUTPATIENT VISIT EST Diagnosis: Long-term (current) use of anticoagulants, INR goal 2.0-3.0[ICD10: Z79.01] Diagnosis: Essential (primary) hypertension[ICD10: I10] Diagnosis: Chronic congestive heart failure with left ventricular diastolic dysfunction[ICD10: I50.32] Diagnosis: Severe obesity (BMI 35.0-39.9) with comorbidity[ICD10: E66.01] Diagnosis: Chronic atrial fibrillation[ICD10: I48.20] Diagnosis: Obstructive sleep apnea syndrome[ICD10: G47.33] Remedios Buenrostrohollis JEANIE BLACK [employer] CPT-4: 59811 05/16/2021 ([id number]) NURSE/OUTPATIENT VISIT EST Diagnosis: Hypothyroidism, unspecified[ICD10: E03.9] Diagnosis: Long-term (current) use of anticoagulants, INR goal 2.0-3.0[ICD10: Z79.01] Jeanie Avendañonela JEANIE David BLACK [employer] CPT-4: 34792 04/11/2021 ([id number]) NURSE/OUTPATIENT VISIT EST Diagnosis: Long-term (current) use of anticoagulants, INR goal 2.0-3.0[ICD10: Z79.01] Jeanie Avendañonela JEANIE David BLACK [employer] CPT-4: 20099 03/15/2021 ([id number]) OFFICE/OUTPATIENT VISIT EST Diagnosis: Essential hypertension[ICD10: I10] Diagnosis: Cheilitis[ICD10: K13.0] Diagnosis: Pulmonary hypertension[ICD10: I27.20] Jeanie Donisanirudh ANTON BLACK [facility] CPT-4: 08889 03/05/2021 ([id number]) NURSE/OUTPATIENT VISIT EST Diagnosis: Essential (primary) hypertension[ICD10: I10] Diagnosis: Hypothyroidism, unspecified[ICD10: E03.9] Diagnosis: Long-term (current) use of anticoagulants, INR goal 2.0-3.0[ICD10: Z79.01] Diagnosis: Mixed hyperlipidemia[ICD10: E78.2] Jeanie JENNINGSPARAG RAFI David BLACK [employer] CPT-4: 86949 02/22/2021 ([id number]) OFFICE/OUTPATIENT VISIT EST Diagnosis: Cheilitis[ICD10: K13.0] Diagnosis: Encounter for medication review and counseling[ICD10: Z71.89] Diagnosis: Long-term (current) use of anticoagulants, INR goal 2.0-3.0[ICD10: Z79.01] Diagnosis: Hypothyroidism, unspecified[ICD10: E03.9] Diagnosis: Mixed hyperlipidemia[ICD10: E78.2] Diagnosis: Severe obesity (BMI 35.0-39.9) with comorbidity[ICD10: E66.01] Diagnosis: Chronic congestive heart failure with left ventricular diastolic dysfunction[ICD10: I50.32] Remedios JENNINGSLINE OfeAxel [employer] CPT- 4: 90535 02/19/2021 ([id number]) OFFICE/OUTPATIENT VISIT EST Diagnosis: Cheilitis[ICD10: K13.0] Jannette JENNINGSLINE S. DONISND ER [facility] CPT-4: 18688 01/16/2021 ([id number]) OFFICE/OUTPATIENT VISIT EST Diagnosis: Hypotension[ICD10: I95.9] Diagnosis: Dizziness[ICD10: R42] Jannette Tiarraelva CONNELL S. DONISNDER DO C CPT-4: 66990 11/12/2020 ([id number]) OFFICE/OUTPATIENT VISIT EST Diagnosis: Thoracic back pain[ICD10: M54.6] Diagnosis: Dizziness[ICD10: R42] Jannette Tiarrapeg ORTEZQUELINE S. DONISNDER DO LL C CPT-4: 29801 10/12/2020 ([id number]) OFFICE/OUTPATIENT VISIT EST Diagnosis: Chronic atrial fibrillation[ICD10: I48.20] Diagnosis: Chronic airway obstruction, not elsewhere classified[ICD10: J44.9] Diagnosis: Essential hypertension[ICD10: I10] Jeanie JENNINGSPARAG RAFI David BLACK DO [facility] CPT-4: 22726 08/27/2020 ([id number]) OFFICE/OUTPATIENT VISIT EST Diagnosis: Essential (primary) hypertension[ICD10: I10] Diagnosis: Chronic atrial fibrillation[ICD10: I48.20] Diagnosis: COPD (chronic obstructive pulmonary disease)[ICD10: J44.9] Diagnosis: Dyspnea[ICD10: R06.00] Diagnosis: Left hip pain[ICD10: M25.552] Jeanie Black JEANIE David BLACK DO [facility] CPT-4: 70127 05/23/2020 ([id number]) NURSE/OUTPATIENT VISIT EST Diagnosis: Essential (primary) hypertension[ICD10: I10] Jeanie Black JEANIE David BLACK DO [facility] CPT-4: 68911 05/02/2020 ([id number]) OFFICE/OUTPATIENT VISIT EST Diagnosis: COPD (chronic obstructive pulmonary disease)[ICD10: J44.9] Diagnosis: Chronic atrial fibrillation[ICD10: I48.20] Diagnosis: Essential hypertension[ICD10: I10] [facility] CPT-[facility]: 50314 03/20/2020 ([id number]) NURSE/OUTPATIENT VISIT EST Diagnosis: Long-term (current) use of anticoagulants, INR goal 2.0-3.0[ICD10: Z79.01] Jeanie Black JEANIE David BLACK DO [facility] CPT-4: 15215 01/20/2020 ([id number]) OFFICE/OUTPATIENT VISIT EST Diagnosis: COPD (chronic obstructive pulmonary disease)[ICD10: J44.9] Diagnosis: Long-term (current) use of anticoagulants, INR goal 2.0-3.0[ICD10: Z79.01] Diagnosis: History of recent fall[ICD10: Z91.81] Jeanie AGUILERA OfeAxel VARUN MCCURDY [facility] CPT-4: 18043 12/15/2019 ([id number]) NURSE/OUTPATIENT VISIT EST Diagnosis: Long-term (current) use of anticoagulants, INR goal 2.0-3.0[ICD10: Z79.01] Jeanie BLACK DO [facility] CPT-4: 87267 11/10/2019 ([id number]) OFFICE/OUTPATIENT VISIT EST Diagnosis: Post concussion syndrome[ICD10: F07.81] Diagnosis: Head contusion[ICD10: S00.93XA] Diagnosis: Chronic airway obstruction, not elsewhere classified[ICD10: J44.9] Jeanie BLACK DO Status Overload CPT-4: 05437 11/03/2019 ([id number]) OFFICE/OUTPATIENT VISIT EST Diagnosis: Fall as cause of accidental injury at home as place of occurrence[ICD10: W19.XXXA] Diagnosis: Headache[ICD10: R51] Diagnosis: Essential (primary) hypertension[ICD10: I10] Diagnosis: Long-term (current) use of anticoagulants, INR goal 2.0-3.0[ICD10: Z79.01] Diagnosis: Ecchymosis of left eye[ICD10: S05.12XA] Jannette BLACK [employer] CPT-4: 76037 10/31/2019 ([id number]) NURSE/OUTPATIENT VISIT EST Diagnosis: Long-term (current) use of anticoagulants, INR goal 2.0-3.0[ICD10: Z79.01] Jeanie BLACK DO Status Overload CPT-4: 51406 10/26/2019 ([id number]) OFFICE/OUTPATIENT VISIT EST Diagnosis: Long-term (current) use of anticoagulants, INR goal 2.0-3.0[ICD10: Z79.01] Diagnosis: Pain in right arm[ICD10: M79.601] Diagnosis: Radiculopathy of arm[ICD10: M54.10] Jannette BLACK [employer] CPT-4: 00991 10/11/2019 ([id number]) OFFICE/OUTPATIENT VISIT EST Diagnosis: Long-term (current) use of anticoagulants, INR goal 2.0-3.0[ICD10: Z79.01] Diagnosis: Sinusitis[ICD10: J32.9] Diagnosis: Pain in right arm[ICD10: M79.601] Jannette BLACK [employer] CPT-4: 82158 09/08/2019 ([id number]) NURSE/OUTPATIENT VISIT EST Diagnosis: Chronic atrial fibrillation[ICD10: I48.2] Diagnosis: Encounter for therapeutic drug level monitoring[ICD10: Z51.81] Jeanie BLACK DO [facility] CPT-4: 89577 07/29/2019 ([id number]) NURSE/OUTPATIENT VISIT EST Diagnosis: Chronic atrial fibrillation[ICD10: I48.2] Diagnosis: Encounter for therapeutic drug level monitoring[ICD10: Z51.81] Jeanie BLACK [facility] CPT-4: 28045 07/18/2019 ([id number]) NURSE/OUTPATIENT VISIT EST Diagnosis: Encounter for therapeutic drug level monitoring[ICD10: Z51.81] Diagnosis: Chronic atrial fibrillation[ICD10: I48.2] Diagnosis: Essential (primary) hypertension[ICD10: I10] Jeanie BLACK [employer] CPT-4: 53594 07/06/2019 ([id number]) OFFICE/OUTPATIENT VISIT EST Diagnosis: Encounter for therapeutic drug level monitoring[ICD10: Z51.81] Diagnosis: Anemia, unspecified[ICD10: D64.9] Diagnosis: Bitten by dog, sequela[ICD10: W54.0XXS] 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] Jeanie BLACK [employer] CPT-4: 85939 06/14/2019 ([id number]) OFFICE/OUTPATIENT VISIT EST Diagnosis: Bitten by dog, sequela[ICD10: W54.0XXS] Diagnosis: Other fatigue[ICD10: R53.83] Diagnosis: Hypothyroidism, unspecified[ICD10: E03.9] Diagnosis: Muscle weakness (generalized)[ICD10: M62.81] Diagnosis: Generalized anxiety disorder[ICD10: F41.1] Jannette BLACK [employer] CPT-4: 31689 05/13/2019 ([id number]) NURSE/OUTPATIENT VISIT EST Diagnosis: Encounter for therapeutic drug level monitoring[ICD10: Z51.81] Jeanie CONNELL OfeAxel VARUN [employer] CPT-4: 29661 05/06/2019 ([id number]) OFFICE/OUTPATIENT VISIT EST Diagnosis: Bitten by dog, sequela[ICD10: W54.0XXS] Diagnosis: Pain in right wrist[ICD10: M25.531] Diagnosis: Abrasion of right upper arm, sequela[ICD10: S40.811S] Diagnosis: Abrasion of left upper arm, sequela[ICD10: S40.812S] Jannette Mayen JEANIE OfeAxel [employer]UN [employer] CPT-4: 50311 05/02/2019 ([id number]) NURSE/OUTPATIENT VISIT EST Diagnosis: Encounter for therapeutic drug level monitoring[ICD10: Z51.81] Jeanie CONNELL OfeAxel [employer]UN [employer] CPT-4: 24646 04/07/2019 ([id number]) OFFICE/OUTPATIENT VISIT NEW Diagnosis: Encounter for therapeutic drug level monitoring[ICD10: Z51.81] Diagnosis: Chronic atrial fibrillation[ICD10: I48.2] Diagnosis: Essential (primary) hypertension[ICD10: I10] Diagnosis: Abnormal findings on diagnostic imaging of heart and coronary circulation[ICD10: R93.1] Diagnosis: Other forms of dyspnea[ICD10: R06.09] Diagnosis: Hypothyroidism, unspecified[ICD10: E03.9] Diagnosis: Mixed hyperlipidemia[ICD10: E78.2] Jeanie MCKEE OfeAxel VARUN [employer] CPT-4: 75879 03/08/2019 Plan of Care Planned Activity Notes Codes Status Date Visit Diagnosis Plan: Left breast lump Discussion: Jonas phoenix get US of left breast and soft tissue under breast and f/u with results. F/U for sooner for concerns. ICD-9 : 611.72 ICD-10 : N63.20 08/20/2021 Appointment: Jeanie Black WPtel: [id number] US CANCELED 08/20/2021 Appointment: Remedios Cavazos WPtel: [phone] [facility] [place] [facility] 08/20/2021 Patient Education: Patient Medication Summary Completed 08/20/2021 Appointment: Jeanie Black WPtel: [address] [place], [place] [address] see note in chart from 08/08/21 (km) CANCELED 08/08/2021 Appointment: Jeanie Black WPtel: [phone] [facility] US LAB 07/19/2021 Appointment: Jeanie Black WPtel: [address] [place], [place] [id number] US LAB 06/20/2021 Visit Diagnosis Plan: Severe obesity (BMI 35.0-39.9) w ith comorbidity Discussion: Discussed diet and exercise ICD-9 : 278.01 ICD-10 : E66.01 05/16/2021 Visit Diagnosis Plan: Obstructive sleep apnea syndrome Discussion: Per pulbautista note- order for bipap sent to [facility]- will call them to check, patient states [...] 05/16/2021 Patient Education: isosorbide mononitrate- [employer] Coupon [id number] https://www.Definition 6/JamOrigin/resources/getResourinfibond/61/u6c1m5c9-v097-562h-j6 Completed 05/16/2021 Patient Education: High Blood Pressure Co mpleted 05/16/2021 Appointment: Jeanie Black WPtel: [address] [place], [place] [id number] US LAB 04/11/2021 Appointment: Jeanie Black WPtel: [address] [place], [place] [id number] US CANCELED 03/27/2021 Appointment: Jeanie Black WPtel: [address] [place], [place] [phone] US LAB 03/15/2021 Visit Diagnosis Plan: Pulmonary [...] : I10 03/05/2021 Appointment: Jeanie Black WPtel: [address] [place], [place] [id number] US FOLLOW UP 03/05/2021 Patient Education: spironolactone- [employer] Coupon 1 [id number] https://www.Definition 6/[employer]/resources/getResource/61/0sy41rk0-8e3v-0n76-2b Completed 03/05/2021 Appointment: Jeanie Black WPtel: [phone] [id number] US LAB 02/22/2021 Visit Diagnosis Plan: Cheilitis [...] 02/19/2021 Appointment: Remedios Cavazos WPtel: [phone] MEDICATION REVIEW 02/19/2021 Patient Education: Patient [...] ICD-10 : K13.0 01/16/2021 Appointment: Jannette Mayen [address] [place] [address] ACUTE ILLNESS 01/16/2021 Appointment: Jeanie Black WPtel: [phone] BP CHECK 11/19/2020 Visit Diagnosis Plan: [...] ICD-10 : I95.9 11/12/2020 Appointment: Jannette Mayen [address] [place] [address] ACUTE ILLNESS 11/12/2020 Visit Diagnosis Plan: Thoracic [...] ICD-10 : R42 10/12/2020 Appointment: Jannette Mayen [facility]66[facility] ACUTE ILLNESS 10/12/2020 Visit Diagnosis Plan: Chronic atrial fibrillation Disc ussion: Following routinely with cardiology ICD-9 : 427.31 ICD-10 : I48.20 09/26/2020 Visit Diagnosis Plan: Essential (primary) hypertension Discussion: Stable ICD-9 : 401.9 ICD-10 : I10 09/26/2020 Visit Diagnosis Plan: Encounter for [facility] adult medical examination without abnormal [...] : I50.32 09/26/2020 Appointment: Jeanie Black WPtel: [facility] [place] [id number] Annual Well Visit 09/26/2020 Care Plan: Referral Order SNOMED-CT : 30 [id number] Pending 09/26/2020 Visit Diagnosis Plan: Chronic airway [...] I48.20 08/27/2020 Appointment: Jeanie Black WPtel: [phone] [facility] US FOLLOW UP 08/27/2020 Visit Diagnosis Plan: [...] : I10 05/23/2020 Appointment: Jeanie Black WPtel: [address] [place], [place] [id number] FOLLOW UP 05/23/2020 Appointment: Jeanie Black WPtel: [address] [place] [address] NURSE SERVICES 05/02/2020 Visit Diagnosis Plan: Chronic [...] : J44.9 03/20/2020 Appointment: Jeanie Black WPtel: [address] [place], [place] [phone] TELEMEDICINE 03/20/2020 Patient Education: Coumadin- [employer] Coupon [id number] https://www.JamOrigin.Metamarkets/sampleClean Power Finance/resources/getResource/61/4f913i63-97b0-0cbs-9u Completed 03/20/2020 Patient Education: Coumadin- [employer] Coupon [id number] https://www.Definition 6/sampleClean Power Finance/resources/getResource/61/1ex09s9y-7b3p-3pu7-rj Completed 03/20/2020 Appointment: Jeanie Black WPtel: [address] [place], [place] [id number] US LAB 01/20/2020 Visit Diagnosis Plan: History of recent fall Discussio n: Healing well Doing balance class at [facility] Follow Up: 3 months ICD-9 : V15.88 ICD-10 : Z91.81 12/15/2019 Visit Diagnosis Plan: COPD (chronic obstructive pulmon valeria disease) Discussion: Continue pulmonary rehab ICD-9 : 496 ICD-10 : J44.9 12/15/2019 Visit Diagnosis Plan: Long-term (current ) use of anticoagulants, INR goal 2.0-3.0 Discussion: PT/INR drawn ICD-9 : V58.61 ICD-10 : Z79.01 12/15/2019 Appointment: Jeanie Black WPtel: [address] [place], [place] [phone] US FOLLOW UP 12/15/2019 Patient Education: Coumadin- [employer] Coupon [id number] https://www.Definition 6/samplemd/resources/getResource/61/s719wkun-kz39-0txh-2v Completed 12/15/2019 Appointment: Jeanie Black WPtel: [address] [place], [place] [phone] US LAB 11/10/2019 Visit Diagnosis Plan: Post [...] J44.9 11/03/2019 Appointment: Jeanie Black WPtel: [phone] FOLLOW UP 11/03/2019 Care Plan: CT HEAD/BRAIN W/O DYE LOINC : 96923-2 Pending 11/01/2019 Visit Diagnosis Plan: Essential (primary) [...] ICD-10 : S05.12XA 10/31/2019 Appointment: Jannette Mayen [address] [place] [address] Follow Up 10/31/2019 Patient Education: High Blood Pressure Co mpleted 10/31/2019 Patient Education: losartan- [employer] Coupon [id number] https://www.JamOrigin.com/samplemd/resources/getResource/61/0h717033-3y02-4163-0f Completed 10/31/2019 Appointment: Jeanie Black WPtel: [phone] [place] [id number] FOLLOW UP 10/26/2019 Visit Diagnosis Plan: Long-term (current ) use of anticoagulants, INR goal 2.0-3.0 Discussion: will update pt/inr ICD-9 : V58.61 ICD-10 : Z79.01 10/11/2019 Visit Diagnosis Plan: Radiculopathy of arm Discussion: flexeril prescribed to take as needed. will start at low dose but instructed patient to call office if not effective and will increase mg dose. PT ordered at [facility] to assist with pain. if no improvement or worsening from PT, will need imaging. ICD-9 : 723.4 ICD-10 : M54.10 10/11/2019 Appointment: Jannette Mayen [address] [place], [place] [id number] ACUTE ILLNESS 10/11/2019 Patient Education: cyclobenzaprine- [employer] Coupon [id number] https://www.JamOrigin.Metamarkets/samplemd/resources/getResource/61/11a6w7j5-79f7-4x49-26 Completed 10/11/2019 Visit Diagnosis Plan: Bitten by dog, sequela Discussio n: Still seeing counselor Still doing therapy--left 4th finger still not agile enough to play violin and feels like pinched nerve in neck on right--dscussed stretches, massage, accupuncture---patient had hired family law attorney ICD-9 : 906.1 ICD-10 : W54.0XXS 09/20/2019 Visit Diagnosis Plan: Encounter for [facility] adult medical examination without abnormal [...] E78.2 09/20/2019 Appointment: Jeanie Black WPtel: [id number] Annual Well Visit 09/20/2019 Visit Diagnosis Plan: [...] ICD-10 : Z79.01 09/08/2019 Appointment: Jannette Mayen [address] [place] [address] ACUTE ILLNESS 09/08/2019 Appointment: Jeanie Black WPtel: [address] [place] [address] US CANCELED 08/16/2019 Appointment: Jeanie Black WPtel: [address] [place] [address] US LAB 07/29/2019 Appointment: Jeanie Black WPtel: [address] [place] [address] US LAB 07/18/2019 Appointment: Jeanie Black WPtel: [address] [place] [address] US LAB 07/06/2019 Visit Diagnosis Plan: Bitten [...] : D64.9 06/14/2019 Appointment: Jeanie Black WPtel: [facility] [place] Ric[address] ManyaxjemAQ[address] US FOLLOW UP 06/14/2019 Visit Diagnosis Plan: [...] ICD-10 : R53.83 05/13/2019 Appointment: Jannette Mayen Christina [address] [place], [place] [id number] FOLLOW UP 05/13/2019 Patient Education: carvedilol- [employer]RX Coupon [id number] https://www.samplemd.com/samplemd/resources/getResource/61/88i8d196-0kyo-5381-1w Completed 05/13/2019 Patient Education: Xanax- [employer] Coupon [id number] https://www.samplemd.com/samplemd/resources/getResource/61/[email or web address] [email or web address].pdf Completed 05/13/2019 Appointment: Jeanie Black WPtel: [address] [place] [address] US LAB 05/06/2019 Visit Diagnosis Plan: Abrasion [...] ICD-10 : M25.531 05/02/2019 Appointment: Jannette Mayen [address] [place] [address] ACUTE ILLNESS 05/02/2019 Care Plan: X-RAY EXAM OF WRIST right LOINC : 3 [id number] Pending 05/02/2019 Appointment: Jeanie Black WPtel: [address] [place], [place] [phone] US LAB 04/07/2019 Appointment: Jeanie Black WPtel: [address] [place] [address] US BP CHECK 03/22/2019 Visit Diagnosis Plan: [...] : I10 03/08/2019 Appointment: Jeanie Black WPtel: [id number] [id number] NEW PATIENT 03/08/2019 Referral: Shona Viera WPtel: [facility] [address] [facility] Referral Appointment Requested Instructions No Instructions Medical Equipment No Medical Equipment data Health Concerns Section Health Concerns data not found Goals Section Goals data not found Interventions Section Interventions data not found Health Status Evaluations/Outcomes Section Health Status Evaluations/Outcomes data not found Advance Directives No Advance Directive data
--- OUTSIDE RECORDS SUMMARY | 2021-09-19 12:41 | XMS REPORT | CCD ---
Author Author Tricia Black D.O. Organization [facility] Address [address] [place] [address] Phone Care Team Providers Care Development Coach Name Role Phone PP Unavailable CCM Unavailable Summary Purpose Interface Exchange Insurance Providers Payer name Policy type / Coverage type Covered constitution party ID Effective Begin Date Effective End Date WPS MEDICARE PART B [place] Medicare Part B [id number] Unknown Unknown AARP Medicare Part B [id number] Unknown Unknown Family history Grandmother Diagnosis Age [...] Unknown Retired 03/08/[address]: 678972456 Has never smoked or chewed tobacco 03/08/[address]: 541504 Currently drinks alcohol 03/08 Has the patient [...] Instructions isosorbide mononitrate 10 mg tablet RxNorm: 277981 Take 1 Tablet(s) Oral two times a day 08/08/2021 No Stop Date Active losartan 100 mg tablet RxNorm: 504046 Take 1 Tablet(s) Oral QD 07/2411/02/2021 Active amoxicillin 500 mg capsule RxNorm: 643868 4 Capsule(s) Oral QD 1hr prior to dental cleaning 08/05/2021 08/05/2021 Inactive levothyroxine 50 mcg tablet RxNorm: 885284 TAKE 1 TABLE T BY MOUTH EVERY DAY. RECHECK LABS IN 2 MONTHS 08/04/2021 10/02/2021 Active potassium chloride ER 10 mEq tablet,extended release RxNorm: 913131 TAKE 1 TABLET BY MOUTH EVERY DAY 07/14/2021 10/11/2021 Active spironolactone 25 mg tablet RxNorm: 532104 1/2 Tablet(s) Oral QD No Stop Date Active isosorbide mononitrate 10 mg tablet RxNorm: 509652 Take 1 Tablet(s) Oral two times a day 05/16/2021 05/16/2021 Inactive isosorbide mononitrate ER 30 mg tablet,extended release 24 h r RxNorm: 665041 TABLET(S) 1 TABLET(S) PO NEEDED Tablet(s) Oral 05/16/2021 08/07/2021 Inactive Patient requests 90 days supply furosemide 40 mg tablet RxNorm: 526459 TAKE 1 TABLET BY MOUTH E VERY MORNING 05/07/2021 08/04/2021 Inactive isosorbide mononitrate 10 mg tablet RxNorm: 593102 Take 1 Tablet(s) Oral two times a day 04/26/2021 05/15/2021 Inactive isosorbide mononitrate 10 mg tablet RxNorm: 231293 Take 1 Tablet(s) Oral two times a day 04/25/2021 04/25/2021 Inactive potassium chloride ER 10 mEq tablet,extended release RxNorm: 412682 TAKE 1 TABLET BY MOUTH EVERY DAY 04/19/2021 04/19/2021 Inactive Coumadin 4 mg tablet RxNorm: 646470 1 Tablet(s) Oral Thursday04/11/2021 07/10/2021 Inactive Coumadin 2 mg tablet RxNorm: 571399 1 Tablet(s) Oral on Thursday and Thursday04/11/2021 07/10/2021 Inactive carvedilol 25 mg tablet RxNorm: 719409 1 Tablet(s) Oral two antolin es a day 04/03/2021 09/29/2021 Active Coumadin 2 mg tablet RxNorm: 961794 TAKE 1 TABLET BY [facility] ON THURSDAY AND Thursday03/26/2021 04/10/2021 Inactive Coumadin 4 mg tablet RxNorm: 990806 1 Tablet(s) Oral QD 02/26/2021 Inactive levothyroxine 50 mcg tablet RxNorm: 823304 1 Tablet(s) Oral QD Recheck labs in 2 months 02/26/2021 02/26/2021 Inactive Recheck labs in 2 months levothyroxine 50 mcg tablet RxNorm: 899283 1 Tablet(s) Oral QD Recheck labs in 2 months 02/26/2021 02/25/2021 Inactive Recheck labs in 2 months losartan 100 mg tablet RxNorm: 307339 TAKE 1 TABLET BY MOUTH 02/22/2021 08/20/2021 Inactive spironolactone 25 mg tablet RxNorm: 639604 1 Tablet(s) Oral QD 01/2303/04/2021 Inactive isosorbide mononitrate 10 mg tablet RxNorm: 871792 1 Ta blet(s) Oral two times a day 02/19/2021 02/25/2021 Inactive famotidine 20 mg tablet RxNorm: 141518 1 Tablet(s) Oral QD 02/20/2003/04/2021 Inactive levothyroxine 25 mcg tablet RxNorm: 774184 1 Tablet(s) Oral QD 03/0 07/202102/25/2021 Inactive atorvastatin 40 mg tablet RxNorm: 739748 1 Tablet(s) Or al QPM replaces pravastatin 01/29/2021 07/27/2021 Inactive furosemide 40 mg tablet RxNorm: 553716 TAKE 1 TABLET BY MOUTH E VERY MORNING 01/28/2021 01/28/2021 Inactive prednisone 10 mg tablet RxNorm: 114500 1 Tablet(s) Oral two antolin es a day 01/16/2021 01/19/2021 Inactive atorvastatin 40 mg tablet RxNorm: 186488 1 Tablet(s) Or al QPM replaces pravastatin 12/31/2020 01/28/2021 Inactive carvedilol 25 mg tablet RxNorm: 341221 TAKE 1 TABLET BY MOUTH T WICE DAILY 12/31/2020 04/02/2021 Inactive potassium chloride ER 10 mEq tablet,extended release RxNorm: 459341 TAKE 1 TABLET BY MOUTH EVERY DAY 12/31/2020 12/31/2020 Inactive losartan 100 mg tablet RxNorm: 337256 1 Tablet(s) Oral QD 12/03/2020 02/21/2021 Inactive Coumadin 4 mg tablet RxNorm: 710500 TAKE 1 TABLET BY [facility] THURSDAY THROUGH Thursday11/30/2020 02/25/2021 Inactive levothyroxine 25 mcg tablet RxNorm: 734557 1 Tablet(s) Oral QD 10/2401/28/2021 Inactive famotidine 20 mg tablet RxNorm: 200493 1 Tablet(s) Oral QD 11/19/20 20 01/15/2021 Inactive famotidine 20 mg tablet RxNorm: 136234 1 Tablet(s) Oral QD 11/19/20 20 11/18/2020 Inactive levothyroxine 50 mcg tablet RxNorm: 056418 [facility] 11/06/2020 01/29/2021 Inactive furosemide 40 mg tablet RxNorm: 179556 TAKE 1 TABLET BY MOUTH E VERY MORNING 11/05/2020 01/27/2021 Inactive atorvastatin 40 mg tablet RxNorm: 926500 1 Tablet(s) Or al QPM replaces pravastatin 10/22/2020 12/30/2020 Inactive atorvastatin 40 mg tablet RxNorm: 712652 1 Tablet(s) Or al QPM replaces pravastatin 10/22/2020 10/21/2020 Inactive spironolactone 25 mg tablet RxNorm: 910684 1 Tablet(s) Oral QAM 01/15/2021 Inactive carvedilol 25 mg tablet RxNorm: 787996 TAKE 1 TABLET BY MOUTH T WICE DAILY 10/04/2020 12/30/2020 Inactive pravastatin 40 mg tablet RxNorm: 296209 TAKE 1 TABLET BY MOUTH EVERY DAY 10/04/2020 12/31/2020 Inactive potassium chloride ER 10 mEq tablet,extended release RxNorm: 083768 TAKE 1 TABLET BY MOUTH EVERY DAY 10/04/2020 12/30/2020 Inactive isosorbide mononitrate ER 30 mg tablet,extended release 24 h r RxNorm: 379562 TABLET(S) 1 TABLET(S) PO NEEDED Oral 10/04/2020 02/18/2021 Inactive Patient requests 90 days supply furosemide 40 mg tablet RxNorm: 663498 TAKE 1 TABLET BY MOUTH E VERY MORNING 10/01/2020 11/04/2020 Inactive losartan 100 mg tablet RxNorm: 100356 TAKE 1 TABLET BY MOUTH 09/19/2020 12/02/2020 Inactive amlodipine 5 mg tablet RxNorm: 287356 1 Tablet(s) Oral QD 08/27/2020 11/11/2020 Inactive spironolactone 25 mg tablet RxNorm: 611388 1 Tablet(s) Oral QAM 03/202010/21/2020 Inactive levothyroxine 50 mcg tablet RxNorm: 508721 TAKE 1 TABLET BY ENE TH EVERY DAY 08/07/2020 11/04/2020 Inactive levothyroxine 50 mcg tablet RxNorm: 731239 TAKE 1 TABLET BY ENE TH EVERY DAY 08/06/2020 08/06/2020 Inactive amoxicillin 500 mg capsule RxNorm: 383722 4 Capsule(s) Oral QD 1hr prior to dental cleaning 07/31/2020 07/30/2020 Inactive amoxicillin 500 mg capsule RxNorm: 555583 4 Capsule(s) Oral QD 1hr prior to dental cleaning 07/31/2020 07/31/2020 Inactive potassium chloride ER 10 mEq tablet,extended release RxNorm: 156397 TAKE 1 TABLET BY MOUTH EVERY DAY 07/23/2020 10/03/2020 Inactive pravastatin 40 mg tablet RxNorm: 038122 TAKE 1 TABLET BY MOUTH EVERY DAY 07/23/2020 10/03/2020 Inactive carvedilol 25 mg tablet RxNorm: 154758 TAKE 1 TABLET BY MOUTH T WICE DAILY 07/23/2020 10/03/2020 Inactive losartan 100 mg tablet RxNorm: 619848 TAKE 1 TABLET BY MOUTH EV RANDI DAY 06/27/2020 09/18/2020 Inactive furosemide 40 mg tablet RxNorm: 868515 TAKE 1 TABLET BY MOUTH E VERY MORNING 06/08/2020 09/30/2020 Inactive Coumadin 4 mg tablet RxNorm: 394685 1 Tablet(s) Oral Thursday thr thursday06/07/2020 11/29/2020 Inactive Coumadin 2 mg tablet RxNorm: 047564 1 Tablet(s) Oral on and Thursday03/20/2020 03/19/2020 Inactive Coumadin 4 mg tablet RxNorm: 226364 1 Tablet(s) Oral Thursday thr thursday03/20/2020 06/06/2020 Inactive losartan 100 mg tablet RxNorm: 574680 TAKE 1 TABLET BY MOUTH EV RANDI DAY 03/20/2020 06/26/2020 Inactive Coumadin 2 mg tablet RxNorm: 060603 1 Tablet(s) Oral on and Thursday03/20/2020 02/25/2021 Inactive furosemide 40 mg tablet RxNorm: 073111 1 Tablet(s) Oral [facility] 020 06/07/2020 Inactive pravastatin 40 mg tablet RxNorm: 079035 TAKE 1 TABLET BY MOUTH EVERY DAY 02/07/2020 07/22/2020 Inactive losartan 100 mg tablet RxNorm: 105991 TAKE 1 TABLET BY MOUTH EV RANDI DAY 02/01/2020 03/19/2020 Inactive losartan 100 mg tablet RxNorm: 124182 TAKE 1 TABLET BY MOUTH EV RANDI DAY 01/17/2020 01/31/2020 Inactive Coumadin 2 mg tablet RxNorm: 574940 1 Tablet(s) Oral on and Thursday12/15/2019 12/15/2019 Inactive furosemide 40 mg tablet RxNorm: 170818 TAKE 1 TABLET BY MOUTH E VERY MORNING 12/14/2019 03/12/2020 Inactive pravastatin 40 mg tablet RxNorm: 114687 TAKE 1 TABLET BY MOUTH EVERY DAY 11/27/2019 02/06/2020 Inactive losartan 100 mg tablet RxNorm: 640041 1 Tablet(s) Oral QD 11/10/2019 01/16/2020 Inactive isosorbide mononitrate ER 30 mg tablet,extended release 24 h r RxNorm: 796043 TABLET(S) 1 TABLET(S) PO NEEDED 11/10/2019 05/08/2020 Inactive Patient requests 90 days supply carvedilol 25 mg tablet RxNorm: 829325 1 Tablet(s) Oral two antolin es a day 11/10/2019 05/08/2020 Inactive Coumadin 2 mg tablet RxNorm: 503048 1 Tablet(s) Oral on and Thursday11/10/2019 12/14/2019 Inactive losartan 100 mg tablet RxNorm: 989405 1 Tablet(s) Oral QD 11/10/2019 11/09/2019 Inactive levothyroxine 50 mcg tablet RxNorm: 321755 1 Tablet(s) Oral QD 10/2310/21/2020 Inactive Coumadin 4 mg tablet RxNorm: 780083 1 Tablet(s) Oral Thursday thr thursday11/10/2019 11/10/2019 Inactive losartan 50 mg tablet RxNorm: 463544 2 Tablet(s) Oral QD 11/01/2019 1 01/10/2019 Inactive potassium chloride ER 10 mEq capsule,extended release RxNorm : 277121 1 Capsule(s) Oral QD 10/26/2019 12/14/2019 Inactive potassium chloride ER 10 mEq tablet,extended release RxNorm: 543726 1 TABLET(S) ORAL QD 10/22/2019 04/18/2020 Inactive Replaces PA on 1 0MEQ Capsules Aspir-81 mg tablet,delayed release RxNorm: 114852 1 Tablet(s) O ral QD 10/11/2019 No Stop Date Active cyclobenzaprine 5 mg tablet RxNorm: 585087 1 Tablet(s) Oral two times a day as needed for muscle spasm 10/11/2019 03/19/2020 Inactive Coumadin 4 mg tablet RxNorm: 406654 1 Tablet(s) Oral Mo through Thursday and 1/2 tablet (2mg) on Sat/Sun 10/11/2019 11/09/2019 Inactive potassium chloride ER 10 mEq tablet,extended release RxNorm: 475273 1 Tablet(s) Oral QD 09/22/2019 09/21/2019 Inactive Replaces PA on 1 0MEQ Capsules potassium chloride ER 10 mEq tablet,extended release RxNorm: 611962 1 Tablet(s) Oral QD 09/22/2019 10/10/2019 Inactive Replaces PA on 1 0MEQ Capsules potassium chloride ER 10 mEq capsule,extended release RxNorm : 157665 1 Capsule(s) Oral QD 09/21/2019 09/21/2019 Inactive carvedilol 25 mg tablet RxNorm: 419322 1 Tablet(s) Oral two antolin es a day 08/23/2019 11/09/2019 Inactive isosorbide mononitrate ER 30 mg tablet,extended release 24 h r RxNorm: 468964 TABLET(S) 1 TABLET(S) PO NEEDED 08/22/2019 10/04/2020 Inactive Patient requests 90 days supply isosorbide mononitrate ER 30 mg tablet,extended release 24 h r RxNorm: 646945 Tablet(s) 1 TABLET(S) PO NEEDED 08/16/2019 08/21/2019 Inactive Patient requests 90 days supply levothyroxine 50 mcg tablet RxNorm: 247754 1 Tablet(s) PO QD 201811/09/2019 Inactive isosorbide mononitrate ER 30 mg tablet,extended release 24 h r RxNorm: 337684 Tablet(s) 1 TABLET(S) PO NEEDED 06/27/2019 08/15/2019 Inactive Patient requests 90 days supply isosorbide mononitrate ER 30 mg tablet,extended release 24 h r RxNorm: 961115 1 Tablet(s) PO QD as needed 06/27/2019 06/27/2019 Inactive Neris ent requests 90 days supply carvedilol 25 mg tablet RxNorm: 861835 1 TABLET(S) PO BID 06/27/2019 08/22/2019 Inactive furosemide 40 mg tablet RxNorm: 832006 1 Tablet(s) PO QAM 06/21/2019 12/13/2019 Inactive carvedilol 25 mg tablet RxNorm: 207455 1 Tablet(s) PO BID 05/13/2019 06/26/2019 Inactive Xanax 0.25 mg tablet RxNorm: 106841 1/2 Tablet(s) PO Q6H as needed 05/13/2019 09/07/2019 Inactive levothyroxine 50 mcg tablet RxNorm: 082021 1 Tablet(s) PO QD 201808/07/2019 Inactive losartan 50 mg tablet RxNorm: 195830 1 Tablet(s) PO QD 04/26/2019 Inactive losartan 50 mg tablet RxNorm: 137102 1 Tablet(s) PO QD 04/20/201901/2019 Inactive pravastatin 40 mg tablet RxNorm: 232044 1 Tablet(s) PO QD 04/07/2019 06/05/2019 Inactive isosorbide mononitrate ER 30 mg tablet,extended release 24 h r RxNorm: 489835 1 Tablet(s) PO as needed 04/07/2019 04/06/2019 Inactive isosorbide mononitrate ER 30 mg tablet,extended release 24 h r RxNorm: 937672 1 TABLET(S) PO NEEDED 04/07/2019 06/26/2019 Inactive Patient requests 90 days supply losartan 50 mg tablet RxNorm: 476452 1 Tablet(s) PO QD 03/22/2019 Inactive Prolia subcutaneous RxNorm: 246859 subcutaneous 02/19/2021 A ctive carvedilol 25 mg tablet RxNorm: 204142 1 Tablet(s) PO BID 05/13/2019 05/12/2019 Inactive losartan 50 mg tablet RxNorm: 002901 1 Tablet(s) PO QD 03/22/2019 Inactive Ventolin HFA 90 mcg/actuation aerosol inhaler RxNorm: 336478 1-2 Puff(s) INH as needed 09/08/2019 09/07/2019 Inactive furosemide 40 mg tablet RxNorm: 740254 1 Tablet(s) PO QAM 06/21/2019 06/20/2019 Inactive pravastatin 40 mg tablet RxNorm: 390544 1 Tablet(s) PO QD 04/07/2019 04/06/2019 Inactive Coumadin 2 mg tablet RxNorm: 132246 1 Tablet(s) PO Mon, Fri, Sat and Sun then 2 tablets (4mg) on , Thu and 10/11/2019 10/10/2019 Inactive isosorbide mononitrate ER 30 mg tablet,extended release 24 h r RxNorm: 909325 Tablet(s) PO as needed 04/07/2019 04/06/2019 Inactive Women's Multivitamin 18 mg iron-400 mcg-500 mg tablet RxNorm : 1 Tablet(s) PO QD 09/08/2019 09/07/2019 Inactive Vitamin D3 1000 units Capsule RxNorm: 3 Capsule(s) PO QD 9 09/07/2019 Inactive vitamin B complex capsule RxNorm: 1 Capsule(s) PO QD 09/08/2019 Inactive potassium chloride ER 10 mEq capsule,extended release RxNorm : 396434 1 Capsule(s) PO QD 09/21/2019 09/20/2019 Inactive levothyroxine 50 mcg tablet RxNorm: 034190 1 Tablet(s) PO QD 201804/25/2019 Inactive Medication Administered No Medication Administered data Immunizations Vaccine Codes Date Status Influenza CVX: 135 07/06/2020 Pneumovax CVX: 33 02/03/2020 Influenza CVX: 135 07/02/2019 Results Observation Observation Code Item Item Code Result Date S ervice Location PT 5006447 PT 28.3 Seconds 07/19/2021 Unknow n PT [id number] INR 2.6 07/19/2021 Unknown COMPREHENSIVE METABOLIC 55148 AST 20 U/L 2020 Unknown COMPREHENSIVE METABOLIC 49949 ALT 16 U/L 2020 Unknown COMPREHENSIVE METABOLIC 28470 BUN 35 mg/dL 2020 Unknown COMPREHENSIVE METABOLIC 23207 ALBUMIN 4.1 g/dL 2020 Unknown COMPREHENSIVE METABOLIC 04766 CHLORIDE 105 mmol/L 06/20 Unknown COMPREHENSIVE METABOLIC 90707 Bili Total 1.1 mg/dL 06/20 Unknown COMPREHENSIVE METABOLIC 71083 ALK PHOS 103 U/L 2020 Unknown COMPREHENSIVE METABOLIC 20578 SODIUM 139 mmol/L 06/20 Unknown COMPREHENSIVE METABOLIC 99951 CREATININE 0.99 mg/dL 05/24 Unknown COMPREHENSIVE METABOLIC 98684 CALCIUM 8.8 mg/dL 2020 Unknown COMPREHENSIVE METABOLIC 62900 POTASSIUM 4.7 mmol/L 06/20 Unknown COMPREHENSIVE METABOLIC 26132 Total Protein 6.2 g/dL Unknown COMPREHENSIVE METABOLIC 16350 Glucose 83 mg/dL 2020 Unknown COMPREHENSIVE METABOLIC 14784 Bicarbonate 27 mmol/L 05/24 Unknown COMPREHENSIVE METABOLIC 81096 AGAP 7 mmol/L 2020 Unknown COMPLETE BLOOD COUNT 2535092 WBC 4.5 10e9/L 06/20/20 21 Unknown COMPLETE BLOOD COUNT [id number] RBC 3.99 10e12/L 2020 Unknown COMPLETE BLOOD COUNT 5979700 HEMOGLOBIN 11.8 g/dL 06/20/20 21 Unknown COMPLETE BLOOD COUNT [id number] HEMATOCRIT 36.6 % 06/20/20 21 Unknown COMPLETE BLOOD COUNT 3334081 MCV 91.7 fL 1 Unknown COMPLETE BLOOD COUNT [id number] MCH 29.6 pg 1 Unknown COMPLETE BLOOD COUNT 0554037 MCHC 32.2 g/dL 1 Unknown COMPLETE BLOOD COUNT 0777126 PLATELET COUNT 180 10e9/L Unknown COMPLETE BLOOD COUNT 4699900 Mean Plt Volume 11.1 fL Unknown COMPLETE BLOOD COUNT 9947228 Neut Auto 64.7 % 1 Unknown COMPLETE BLOOD COUNT 4468447 Lymph Auto 19.6 % 06/20/20 21 Unknown COMPLETE BLOOD COUNT [id number] [place] Auto 13.5 % 1 Unknown COMPLETE BLOOD COUNT 7824325 RDW 15.1 % 1 Unknown COMPLETE BLOOD COUNT 9243051 Eos Auto 1.8 % 1 Unknown COMPLETE BLOOD COUNT 7419579 Baso Auto 0.4 % 1 Unknown COMPLETE BLOOD COUNT 3916396 Neutrophil Abs 2.91 10e9/L Unknown COMPLETE BLOOD COUNT 1167134 Lymphocyte Abs 0.88 10e9/L Unknown COMPLETE BLOOD COUNT [id number] Monocyte Abs 0.61 10e9/L 05/24 Unknown COMPLETE BLOOD COUNT 0016149 Eosinophil Abs 0.08 10e9/L Unknown COMPLETE BLOOD COUNT 8095305 RDW-SD 49.5 fL 1 Unknown COMPLETE BLOOD COUNT [id number] Basophil Abs 0.02 10e9/L 05/24 Unknown GFR CALC 7512608 GFR Non Afr Amr 53 mL/min 06/20/2021 Unk nown GFR CALC 7115343 GFR Afr Amr >60 mL/min 06/20/2021 Unknow n PT [id number] PT 27.4 Seconds 06/20/2021 Unknow n PT [id number] INR 2.5 06/20/2021 Unknown PT [id number] PT 25.8 Seconds 05/21/2021 Unknow n PT [id number] INR 2.3 05/21/2021 Unknown FREE T4 23012 T4 Free 1.19 ng/dL 04/11/2021 Unknown PT [id number] PT 33.6 Seconds 04/11/2021 Unknow n PT [id number] INR 3.3 04/11/2021 Unknown THYROID STIMULATING HORMONE 76944 TSH 3.912 uIU/mL 04/11/2021 Unknown PT [id number] PT 33.1 Seconds 03/15/2021 Unknow n PT [id number] INR 3.2 03/15/2021 Unknown PT [id number] PT 24.6 Seconds 05/23/2020 Unknow n PT [id number] INR 2.2 05/23/2020 Unknown PT [id number] PT 31.4 Seconds 10/26/2019 Unknow n PT [id number] INR 2.9 10/26/2019 Unknown PT [id number] PT 17.6 Seconds 10/11/2019 Unknow n PT [id number] INR 1.4 10/11/2019 Unknown PT [id number] PT 23.7 Seconds 09/08/2019 Unknow n PT [id number] INR 2.0 09/08/2019 Unknown PT [id number] PT 23.2 Seconds 07/29/2019 Unknow n PT [id number] INR 2.0 07/29/2019 Unknown PT [id number] PT 14.3 Seconds 07/18/2019 Unknow n PT [id number] INR 1.1 07/18/2019 [place] [address] Glucose 75 mg/dL 07/06 [place] [address] CREATININE 0.61 mg/dL [place] [address] BUN 15 mg/dL 07/06 [place] [address] SODIUM 142 mmol/L 06/23 [place] [address] POTASSIUM 4.0 mmol/L 06/23 [place] [address] CHLORIDE 106 mmol/L 06/23 [place] [address] Bicarbonate 28 mmol/L [place] [address] AGAP 8 mmol/L 07/06 [place] [address] CALCIUM 9.3 mg/dL 07/06 Unknown PT [id number] PT 17.4 Seconds 07/06/2019 Unknow n PT [id number] INR 1.4 07/06/2019 Unknown GFR CALC [id number] GFR Non Afr Amr >60 mL/min 07/06/2019 Un known GFR CALC 8637924 GFR Afr Amr >60 mL/min 07/06/2019 Unknow n COMPLETE BLOOD COUNT 9438977 WBC 4.7 10e9/L 07/06/20 19 Unknown COMPLETE BLOOD COUNT [id number] RBC 4.19 10e12/L 2018 Unknown COMPLETE BLOOD COUNT [id number] HEMOGLOBIN 12.6 g/dL 07/06/20 19 Unknown COMPLETE BLOOD COUNT 5095833 HEMATOCRIT 39.4 % 07/06/20 19 Unknown COMPLETE BLOOD COUNT 0006086 MCV 94.0 fL 9 Unknown COMPLETE BLOOD COUNT 8284994 MCH 30.1 pg 9 Unknown COMPLETE BLOOD COUNT 6225551 MCHC 32.0 g/dL 9 Unknown COMPLETE BLOOD COUNT 9328685 PLATELET COUNT 160 10e9/L Unknown COMPLETE BLOOD COUNT 4036174 Mean Plt Volume 11.0 fL Unknown COMPLETE BLOOD COUNT 8609510 Neut Auto 56.6 % 9 Unknown COMPLETE BLOOD COUNT [id number] Lymph Auto 27.0 % 07/06/20 19 Unknown COMPLETE BLOOD COUNT 1768195 [place] Auto 13.7 % 9 Unknown COMPLETE BLOOD COUNT 2170399 RDW 14.6 % 9 Unknown COMPLETE BLOOD COUNT 8395984 Eos Auto 2.1 % 9 Unknown COMPLETE BLOOD COUNT 1133664 Baso Auto 0.6 % 9 Unknown COMPLETE BLOOD COUNT 7758193 Neutrophil Abs 2.66 10e9/L Unknown COMPLETE BLOOD COUNT [id number] Lymphocyte Abs 1.27 10e9/L Unknown COMPLETE BLOOD COUNT [id number] Monocyte Abs 0.64 10e9/L 06/23 Unknown COMPLETE BLOOD COUNT 7086988 Eosinophil Abs 0.10 10e9/L Unknown COMPLETE BLOOD COUNT 0553561 RDW-SD 48.7 fL 9 Unknown COMPLETE BLOOD COUNT [id number] Basophil Abs 0.03 10e9/L 06/23 Unknown COMPLETE BLOOD COUNT [id number] WBC 4.6 10e9/L 06/14/20 19 Unknown COMPLETE BLOOD COUNT 1093615 RBC 4.16 10e12/L 2018 Unknown COMPLETE BLOOD COUNT 0654134 HEMOGLOBIN 12.6 g/dL 06/14/20 19 Unknown COMPLETE BLOOD COUNT [id number] HEMATOCRIT 39.1 % 06/14/20 19 Unknown COMPLETE BLOOD COUNT 9000220 MCV 94.0 fL 9 Unknown COMPLETE BLOOD COUNT 0227991 MCH 30.3 pg 9 Unknown COMPLETE BLOOD COUNT 8041813 MCHC 32.2 g/dL 9 Unknown COMPLETE BLOOD COUNT 4781042 PLATELET COUNT 167 10e9/L Unknown COMPLETE BLOOD COUNT 8379910 Mean Plt Volume 10.9 fL Unknown COMPLETE BLOOD COUNT 5382125 Neut Auto 59.6 % 9 Unknown COMPLETE BLOOD COUNT [id number] Lymph Auto 24.1 % 06/14/20 19 Unknown COMPLETE BLOOD COUNT 3310998 [place] Auto 14.0 % 9 Unknown COMPLETE BLOOD COUNT 8172384 RDW 14.8 % 9 Unknown COMPLETE BLOOD COUNT 2640738 Eos Auto 1.9 % 9 Unknown COMPLETE BLOOD COUNT 9774478 Baso Auto 0.4 % 9 Unknown COMPLETE BLOOD COUNT 0248824 Neutrophil Abs 2.74 10e9/L Unknown COMPLETE BLOOD COUNT 9434971 Lymphocyte Abs 1.11 10e9/L Unknown COMPLETE BLOOD COUNT [id number] Monocyte Abs 0.64 10e9/L 05/24 Unknown COMPLETE BLOOD COUNT 7199504 Eosinophil Abs 0.09 10e9/L Unknown COMPLETE BLOOD COUNT 8803802 RDW-SD 49.3 fL 9 Unknown COMPLETE BLOOD COUNT [id number] Basophil Abs 0.02 10e9/L 05/24 Unknown PT [id number] PT 22.3 Seconds 06/14/2019 Unknow n PT [id number] INR 1.9 06/14/2019 Unknown COMPLETE BLOOD COUNT 9611942 WBC 4.0 10e9/L 05/13/20 19 Unknown COMPLETE BLOOD COUNT [id number] RBC 3.82 10e12/L 2018 Unknown COMPLETE BLOOD COUNT [id number] HEMOGLOBIN 11.5 g/dL 05/13/20 19 Unknown COMPLETE BLOOD COUNT 5920415 HEMATOCRIT 36.4 % 05/13/20 19 Unknown COMPLETE BLOOD COUNT 9412820 MCV 95.3 fL 9 Unknown COMPLETE BLOOD COUNT 4191368 MCH 30.1 pg 9 Unknown COMPLETE BLOOD COUNT [id number] MCHC 31.6 g/dL 9 Unknown COMPLETE BLOOD COUNT 7156171 PLATELET COUNT 175 10e9/L Unknown COMPLETE BLOOD COUNT 1196031 Mean Plt Volume 10.5 fL Unknown COMPLETE BLOOD COUNT 5406680 Neut Auto 63.2 % 9 Unknown COMPLETE BLOOD COUNT 7181450 Lymph Auto 22.0 % 05/13/20 19 Unknown COMPLETE BLOOD COUNT 7957876 [place] Auto 12.1 % 9 Unknown COMPLETE BLOOD COUNT 6741741 RDW 14.9 % 9 Unknown COMPLETE BLOOD COUNT 3452445 Eos Auto 2.2 % 9 Unknown COMPLETE BLOOD COUNT 1457630 Baso Auto 0.5 % 9 Unknown COMPLETE BLOOD COUNT 7554124 Neutrophil Abs 2.53 10e9/L Unknown COMPLETE BLOOD COUNT 4080877 Lymphocyte Abs 0.88 10e9/L Unknown COMPLETE BLOOD COUNT [id number] Monocyte Abs 0.48 10e9/L 04/24 Unknown COMPLETE BLOOD COUNT 1505672 Eosinophil Abs 0.09 10e9/L Unknown COMPLETE BLOOD COUNT 7654845 RDW-SD 49.6 fL 9 Unknown COMPLETE BLOOD COUNT 7578582 Basophil Abs 0.02 10e9/L 04/24 Unknown COMPREHENSIVE METABOLIC 27835 AST 18 U/L 2018 Unknown COMPREHENSIVE METABOLIC 72690 ALT 14 U/L 2018 Unknown COMPREHENSIVE METABOLIC 81071 BUN 15 mg/dL 2018 Unknown COMPREHENSIVE METABOLIC 49545 ALBUMIN 4.0 g/dL 2018 Unknown COMPREHENSIVE METABOLIC 75164 CHLORIDE 108 mmol/L 05/13 Unknown COMPREHENSIVE METABOLIC 98899 Bili Total 0.9 mg/dL 05/13 Unknown COMPREHENSIVE METABOLIC 55984 ALK PHOS 84 U/L 2018 Unknown COMPREHENSIVE METABOLIC 41609 SODIUM 142 mmol/L 05/13 Unknown COMPREHENSIVE METABOLIC 37896 CREATININE 0.72 mg/dL 04/24 Unknown COMPREHENSIVE METABOLIC 21031 CALCIUM 8.9 mg/dL 2018 Unknown COMPREHENSIVE METABOLIC 86892 POTASSIUM 4.0 mmol/L 05/13 Unknown COMPREHENSIVE METABOLIC 25324 Total Protein 5.5 g/dL Unknown COMPREHENSIVE METABOLIC 79578 Glucose 95 mg/dL 2018 Unknown COMPREHENSIVE METABOLIC 04197 Bicarbonate 27 mmol/L 04/24 Unknown COMPREHENSIVE METABOLIC 69426 AGAP 7 mmol/L 2018 Unknown GFR CALC 6700650 GFR Non Afr Amr >60 mL/min 05/13/2019 Un known GFR CALC [id number] GFR Afr Amr >60 mL/min 05/13/2019 Unknow n THYROID STIMULATING HORMONE 27389 TSH 2.669 uIU/mL 05/13/2019 Unknown FREE T4 92636 T4 Free 1.19 ng/dL 05/13/2019 Unknown PT [id number] PT 24.2 Seconds 05/06/2019 Unknow n PT [id number] INR 2.1 05/06/2019 Unknown PT [id number] PT 24.1 Seconds 03/08/2019 Unknow n PT [id number] INR 2.9 03/08/2019 Unknown Procedures Procedure Codes Date ROUTINE VENIPUNCTURE CPT-4: 02376 07/19/2021 PROTHROMBIN TIME CPT-4: 89760 07/19/2021 ROUTINE VENIPUNCTURE CPT-4: 47160 06/20/2021 COMPREHEN METABOLIC PANEL CPT-4: 36507 06/20/2021 COMPLETE CBC W/AUTO DIFF WBC CPT-4: 18048 06/20/2021 PROTHROMBIN TIME CPT-4: 56568 06/20/2021 PT CPT-4: 8507225 05/16/2021 ROUTINE VENIPUNCTURE CPT-4: 72246 05/16/2021 ROUTINE VENIPUNCTURE CPT-4: 10737 04/11/2021 PROTHROMBIN TIME CPT-4: 16301 04/11/2021 ASSAY OF FREE THYROXINE CPT-4: 37594 04/11/2021 ASSAY THYROID STIM HORMONE CPT-4: 62622 04/11/2021 ROUTINE VENIPUNCTURE CPT-4: 63310 03/15/2021 PT CPT-4: 2120302 03/15/2021 ROUTINE VENIPUNCTURE CPT-4: 14846 02/22/2021 COMPREHEN METABOLIC PANEL CPT-4: 13903 02/22/2021 ASSAY OF FREE THYROXINE CPT-4: 04193 02/22/2021 ASSAY THYROID STIM HORMONE CPT-4: 52716 02/22/2021 COMPLETE CBC W/AUTO DIFF WBC CPT-4: 49361 02/22/2021 PROTHROMBIN TIME CPT-4: 24458 02/22/2021 LIPID PANEL CPT-4: 15209 02/22/2021 PPPS, subseq visit CPT-4: G0439 09/26/2020 ROUTINE VENIPUNCTURE CPT-4: 81193 05/23/2020 PROTHROMBIN TIME CPT-4: 93321 05/23/2020 ROUTINE VENIPUNCTURE CPT-4: 36254 01/20/2020 PT CPT-4: 3941539 01/20/2020 ROUTINE VENIPUNCTURE CPT-4: 34379 12/15/2019 PROTHROMBIN TIME CPT-4: 82285 12/15/2019 ROUTINE VENIPUNCTURE CPT-4: 97967 11/10/2019 PROTHROMBIN TIME CPT-4: 92992 11/10/2019 PROTHROMBIN TIME CPT-4: 01177 10/26/2019 ROUTINE VENIPUNCTURE CPT-4: 65080 10/26/2019 ROUTINE VENIPUNCTURE CPT-4: 68428 10/11/2019 PT CPT-4: 4916998 10/11/2019 PPPS, initial visit CPT-4: G0438 09/20/2019 ROUTINE VENIPUNCTURE CPT-4: 50870 09/08/2019 PT CPT-4: 9981056 09/08/2019 THER/PROPH/DIAG INJ SC/IM CPT-4: 86477 09/08/2019 TRIAMCINOLONE ACET INJ NOS CPT-4: J3301 09/08/2019 ROUTINE VENIPUNCTURE CPT-4: 74397 07/29/2019 PT CPT-4: 4725462 07/29/2019 ROUTINE VENIPUNCTURE CPT-4: 94492 07/18/2019 PT CPT-4: 3621385 07/18/2019 METABOLIC PANEL TOTAL CA CPT-4: 99960 07/06/2019 COMPLETE CBC W/AUTO DIFF WBC CPT-4: 66729 07/06/2019 PROTHROMBIN TIME CPT-4: 23960 07/06/2019 ROUTINE VENIPUNCTURE CPT-4: 21118 06/14/2019 PROTHROMBIN TIME CPT-4: 77728 06/14/2019 COMPLETE CBC W/AUTO DIFF WBC CPT-4: 84057 06/14/2019 ROUTINE VENIPUNCTURE CPT-4: 21547 05/13/2019 COMPREHEN METABOLIC PANEL CPT-4: 54074 05/13/2019 COMPLETE CBC W/AUTO DIFF WBC CPT-4: 59751 05/13/2019 ASSAY THYROID STIM HORMONE CPT-4: 60358 05/13/2019 ASSAY OF FREE THYROXINE CPT-4: 55261 05/13/2019 PT CPT-4: 2076280 05/06/2019 ROUTINE VENIPUNCTURE CPT-4: 44278 05/06/2019 PT CPT-4: 0592093 04/07/2019 ROUTINE VENIPUNCTURE CPT-4: 24575 04/07/2019 ROUTINE VENIPUNCTURE CPT-4: 76126 03/08/2019 PROTHROMBIN TIME CPT-4: 00761 03/08/2019 Vital Signs Date Vital 08/20/2021 Blood Pressure 1: 127/69 Code: 8480-6 Heart Rate 1: 84 bpm Respiratory Rate: 17 bpm SpO2: 98% Temperature: 36.7 (C) / 98.1 (F) We ight: 208 lbs Code: 97557-6 05/16/2021 Blood Pressure 1: 136/64 Code: 8480-6 BMI: 37.0 Code: 89350-1 Heart Rate 1: 61 bpm Height: 5'3" Code: 8302-2 Respiratory Rate: 16 bpm SpO2: 98% Temperature: 36.2 (C) / 97.1 (F) Weight: 212 lbs Code: 11536-2 03/05/2021 Blood Pressure 1: 134/76 Code: 8480-6 Heart Rate 1: 66 bpm Respiratory Rate: 16 bpm SpO2: 100% Temperature: 37.1 (C) / 98.7 (F) We ight: 203 lbs Code: 39984-8 02/19/2021 Blood Pressure 1: 126/70 Code: 8480-6 BMI: 35.4 Code: 65316-1 Heart Rate 1: 72 bpm Height: 5'3" Code: 8302-2 Respiratory Rate: 16 bpm SpO2: 99% Temperature: 36.3 (C) / 97.3 (F) Weight: 203 lbs Code: 60697-9 01/16/2021 Blood Pressure 1: 112/74 Code: 8480-6 Heart Rate 1: 76 bpm Respiratory Rate: 20 bpm Temperature: 36.7 (C) / 98.0 (F) Weight: 205 lbs Code : 80912-7 11/19/2020 Blood Pressure 1: 120/78 Code: 8480-6 Heart Rate 1: 88 bpm Temperature: 36.6 (C) / 97.8 (F) 11/12/2020 Blood Pressure 1: 110/57 Code: 8480-6 Heart Rate 1: 68 bpm Respiratory Rate: 15 bpm SpO2: 100% Weight: 202 lbs Code: 40039 -7 10/12/2020 Blood Pressure 1: 114/70 Code: 8480-6 Heart Rate 1: 84 bpm Respiratory Rate: 18 bpm SpO2: 98% Temperature: 36.7 (C) / 98.0 (F) 09/26/2020 Blood Pressure 1: 120/72 Code: 8480-6 BMI: 35.2 Code: 12807-9 Heart Rate 1: 76 bpm Height: 5'3" Code: 8302-2 Respiratory Rate: 20 bpm SpO2: 97% Temperature: 36.7 (C) / 98.0 (F) Weight: 202 lbs Code: 92405-5 08/27/2020 Blood Pressure 1: 126/82 Code: 8480-6 Heart Rate 1: 80 bpm Respiratory Rate: 20 bpm Temperature: 36.2 (C) / 97.1 (F) Weight: 198 lbs Code : 27942-1 05/23/2020 Blood Pressure 1: 120/78 Code: 8480-6 Heart Rate 1: 68 bpm Respiratory Rate: 20 bpm SpO2: 97% Temperature: 36.4 (C) / 97.5 (F) We ight: 200 lbs Code: 60618-9 05/02/2020 Blood Pressure 1: 133/81 Code: 8480-6 Heart Rate 1: 74 bpm Weight: 202 lbs Code: 63064-0 12/15/2019 Blood Pressure 1: 126/82 Code: 8480-6 Heart Rate 1: 64 bpm Respiratory Rate: 20 bpm SpO2: 97% Temperature: 36.6 (C) / 97.8 (F) We ight: 201 lbs Code: 81591-6 11/03/2019 Blood Pressure 1: 142/82 Code: 8480-6 [...] / 98.1 (F) Weight: 204 lbs Code: 19337-9 09/20/2019 Blood Pressure 1: 122/68 Code: 8480-6 BMI: 35.0 Code: 07966-0 Heart Rate 1: 72 bpm Height: 5'3" Code: 8302-2 Respiratory Rate: 18 bpm SpO2: 95% Temperature: 36.8 (C) / 98.3 (F) Weight: 201 lbs Code: 28223-6 09/08/2019 Blood Pressure 1: 118/72 Code: 8480-6 Heart Rate 1: 82 bpm SpO2: 97% Temperature: 36.3 (C) / 97.4 (F) Weight: 208 lbs Code: 68796-2 06/14/2019 Blood Pressure 1: 128/84 Code: 8480-6 Heart Rate 1: 72 bpm Respiratory Rate: 20 bpm SpO2: 98% Temperature: 36.7 (C) / 98.1 (F) We ight: 209 lbs Code: 40989-8 05/13/2019 Blood Pressure 1: 144/90 Code: 8480-6 Heart Rate 1: 88 bpm Respiratory Rate: 24 bpm SpO2: 96% Temperature: 37.1 (C) / 98.8 (F) We ight: 210 lbs Code: 43409-7 05/02/2019 Blood Pressure 1: 128/80 Code: 8480-6 Heart Rate 1: 84 bpm Respiratory Rate: 20 bpm SpO2: 95% Temperature: 36.6 (C) / 97.9 (F) We ight: 209 lbs Code: 24898-1 03/22/2019 Blood Pressure 1: 122/70 Code: 8480-6 He art Rate 1: 85 bpm 03/08/2019 Blood Pressure 1: 114/78 Code: 8480-6 BMI: 36.1 Code: 58518-4 Heart Rate 1: 76 bpm Height: 5'3" Code: 8302-2 Respiratory Rate: 20 bpm SpO2: 97% Temperature: 37.1 (C) / 98.8 (F) Weight: 207 lbs Code: 22885-5 Functional Status No Functional Status data Reason [...] Left breast lump[ICD10: N63.20] Remedios ANGELES CPT-4: 70910 08/20/2021 ([id number]) NURSE/OUTPATIENT VISIT EST Diagnosis: Long-term (current) use of anticoagulants, INR goal 2.0-3.0[ICD10: Z79.01] Jeanie JENNINGSLINE David BLACK [employer] CPT-4: 01305 07/19/2021 ([id number]) NURSE/OUTPATIENT VISIT EST Diagnosis: Essential (primary) hypertension[ICD10: I10] Diagnosis: Chronic atrial fibrillation[ICD10: I48.20] Diagnosis: Long-term (current) use of anticoagulants, INR goal 2.0-3.0[ICD10: Z79.01] Diagnosis: Anemia, unspecified[ICD10: D64.9] Jeanie TURK Fidel BLACK [employer] CPT-4: 29861 06/20/2021 ([id number]) OFFICE/OUTPATIENT VISIT EST Diagnosis: Long-term (current) use of anticoagulants, INR goal 2.0-3.0[ICD10: Z79.01] Diagnosis: Essential (primary) hypertension[ICD10: I10] Diagnosis: Chronic congestive heart failure with left ventricular diastolic dysfunction[ICD10: I50.32] Diagnosis: Severe obesity (BMI 35.0-39.9) with comorbidity[ICD10: E66.01] Diagnosis: Chronic atrial fibrillation[ICD10: I48.20] Diagnosis: Obstructive sleep apnea syndrome[ICD10: G47.33] Remedios Buenrostrohollis JEANIE BLACK [employer] CPT-4: 60214 05/16/2021 ([id number]) NURSE/OUTPATIENT VISIT EST Diagnosis: Hypothyroidism, unspecified[ICD10: E03.9] Diagnosis: Long-term (current) use of anticoagulants, INR goal 2.0-3.0[ICD10: Z79.01] Jeanie Avendañonela JEANIE David BLACK [employer] CPT-4: 52561 04/11/2021 ([id number]) NURSE/OUTPATIENT VISIT EST Diagnosis: Long-term (current) use of anticoagulants, INR goal 2.0-3.0[ICD10: Z79.01] Jeanie Avendañonela JEANIE David BLACK [employer] CPT-4: 69306 03/15/2021 ([id number]) OFFICE/OUTPATIENT VISIT EST Diagnosis: Essential hypertension[ICD10: I10] Diagnosis: Cheilitis[ICD10: K13.0] Diagnosis: Pulmonary hypertension[ICD10: I27.20] Jeanie Donisanirudh ANTON BLACK [employer] [facility] CPT-4: 98639 03/05/2021 ([id number]) NURSE/OUTPATIENT VISIT EST Diagnosis: Essential (primary) hypertension[ICD10: I10] Diagnosis: Hypothyroidism, unspecified[ICD10: E03.9] Diagnosis: Long-term (current) use of anticoagulants, INR goal 2.0-3.0[ICD10: Z79.01] Diagnosis: Mixed hyperlipidemia[ICD10: E78.2] Jeanie JENNINGSPARAG RAFI David BLACK [employer] CPT-4: 47954 02/22/2021 ([id number]) OFFICE/OUTPATIENT VISIT EST Diagnosis: Cheilitis[ICD10: K13.0] Diagnosis: Encounter for medication review and counseling[ICD10: Z71.89] Diagnosis: Long-term (current) use of anticoagulants, INR goal 2.0-3.0[ICD10: Z79.01] Diagnosis: Hypothyroidism, unspecified[ICD10: E03.9] Diagnosis: Mixed hyperlipidemia[ICD10: E78.2] Diagnosis: Severe obesity (BMI 35.0-39.9) with comorbidity[ICD10: E66.01] Diagnosis: Chronic congestive heart failure with left ventricular diastolic dysfunction[ICD10: I50.32] Remedios JENNINGSLINE OfeAxel HECTORER [employer] CPT- 4: 40229 02/19/2021 ([id number]) OFFICE/OUTPATIENT VISIT EST Diagnosis: Cheilitis[ICD10: K13.0] Jannette JENNINGSLINE S. DONISND ER [employer] [facility] CPT-4: 96448 01/16/2021 ([id number]) OFFICE/OUTPATIENT VISIT EST Diagnosis: Hypotension[ICD10: I95.9] Diagnosis: Dizziness[ICD10: R42] Jannette Tiarraelva CONNELL S. DONISNDER DO C CPT-4: 28318 11/12/2020 ([id number]) OFFICE/OUTPATIENT VISIT EST Diagnosis: Thoracic back pain[ICD10: M54.6] Diagnosis: Dizziness[ICD10: R42] Jannette Tiarrapeg ORTEZQUELINE S. DONISNDER DO LL C CPT-4: 39668 10/12/2020 ([id number]) OFFICE/OUTPATIENT VISIT EST Diagnosis: Chronic atrial fibrillation[ICD10: I48.20] Diagnosis: Chronic airway obstruction, not elsewhere classified[ICD10: J44.9] Diagnosis: Essential hypertension[ICD10: I10] Jeanie JENNINGSPARAG RAFI David BLACK DO [facility] CPT-4: 52350 08/27/2020 ([id number]) OFFICE/OUTPATIENT VISIT EST Diagnosis: Essential (primary) hypertension[ICD10: I10] Diagnosis: Chronic atrial fibrillation[ICD10: I48.20] Diagnosis: COPD (chronic obstructive pulmonary disease)[ICD10: J44.9] Diagnosis: Dyspnea[ICD10: R06.00] Diagnosis: Left hip pain[ICD10: M25.552] Jeanie Black JEANIE David BLACK DO [facility] CPT-4: 45023 05/23/2020 ([id number]) NURSE/OUTPATIENT VISIT EST Diagnosis: Essential (primary) hypertension[ICD10: I10] Jeanie Black JEANIE David BLACK DO [facility] CPT-4: 73866 05/02/2020 ([id number]) OFFICE/OUTPATIENT VISIT EST Diagnosis: COPD (chronic obstructive pulmonary disease)[ICD10: J44.9] Diagnosis: Chronic atrial fibrillation[ICD10: I48.20] Diagnosis: Essential hypertension[ICD10: I10] [facility] CPT-[facility]: 72541 03/20/2020 ([id number]) NURSE/OUTPATIENT VISIT EST Diagnosis: Long-term (current) use of anticoagulants, INR goal 2.0-3.0[ICD10: Z79.01] Jeanie Black JEANIE David BLACK DO [facility] CPT-4: 38869 01/20/2020 ([id number]) OFFICE/OUTPATIENT VISIT EST Diagnosis: COPD (chronic obstructive pulmonary disease)[ICD10: J44.9] Diagnosis: Long-term (current) use of anticoagulants, INR goal 2.0-3.0[ICD10: Z79.01] Diagnosis: History of recent fall[ICD10: Z91.81] Jeanie AGUILERA OfeAxel VARUN MCCURDY [facility] CPT-4: 92006 12/15/2019 ([id number]) NURSE/OUTPATIENT VISIT EST Diagnosis: Long-term (current) use of anticoagulants, INR goal 2.0-3.0[ICD10: Z79.01] Jeanie BLACK DO [facility] CPT-4: 26353 11/10/2019 ([id number]) OFFICE/OUTPATIENT VISIT EST Diagnosis: Post concussion syndrome[ICD10: F07.81] Diagnosis: Head contusion[ICD10: S00.93XA] Diagnosis: Chronic airway obstruction, not elsewhere classified[ICD10: J44.9] Jeanie BLACK DO [facility] CPT-4: 33647 11/03/2019 ([id number]) OFFICE/OUTPATIENT VISIT EST Diagnosis: Fall as cause of accidental injury at home as place of occurrence[ICD10: W19.XXXA] Diagnosis: Headache[ICD10: R51] Diagnosis: Essential (primary) hypertension[ICD10: I10] Diagnosis: Long-term (current) use of anticoagulants, INR goal 2.0-3.0[ICD10: Z79.01] Diagnosis: Ecchymosis of left eye[ICD10: S05.12XA] Jannette BLACK [employer] CPT-4: 84354 10/31/2019 ([id number]) NURSE/OUTPATIENT VISIT EST Diagnosis: Long-term (current) use of anticoagulants, INR goal 2.0-3.0[ICD10: Z79.01] Jeanie BLACK DO [facility] CPT-4: 22538 10/26/2019 ([id number]) OFFICE/OUTPATIENT VISIT EST Diagnosis: Long-term (current) use of anticoagulants, INR goal 2.0-3.0[ICD10: Z79.01] Diagnosis: Pain in right arm[ICD10: M79.601] Diagnosis: Radiculopathy of arm[ICD10: M54.10] Jannette BLACK [employer] CPT-4: 19403 10/11/2019 ([id number]) OFFICE/OUTPATIENT VISIT EST Diagnosis: Long-term (current) use of anticoagulants, INR goal 2.0-3.0[ICD10: Z79.01] Diagnosis: Sinusitis[ICD10: J32.9] Diagnosis: Pain in right arm[ICD10: M79.601] Jannette BLACK [employer] CPT-4: 49692 09/08/2019 ([id number]) NURSE/OUTPATIENT VISIT EST Diagnosis: Chronic atrial fibrillation[ICD10: I48.2] Diagnosis: Encounter for therapeutic drug level monitoring[ICD10: Z51.81] Jeanie BLACK DO [facility] CPT-4: 32411 07/29/2019 ([id number]) NURSE/OUTPATIENT VISIT EST Diagnosis: Chronic atrial fibrillation[ICD10: I48.2] Diagnosis: Encounter for therapeutic drug level monitoring[ICD10: Z51.81] Jeanie BLACK [employer] [facility] CPT-4: 78223 07/18/2019 ([id number]) NURSE/OUTPATIENT VISIT EST Diagnosis: Encounter for therapeutic drug level monitoring[ICD10: Z51.81] Diagnosis: Chronic atrial fibrillation[ICD10: I48.2] Diagnosis: Essential (primary) hypertension[ICD10: I10] Jeanie BLACK [employer] CPT-4: 94998 07/06/2019 ([id number]) OFFICE/OUTPATIENT VISIT EST Diagnosis: Encounter for therapeutic drug level monitoring[ICD10: Z51.81] Diagnosis: Anemia, unspecified[ICD10: D64.9] Diagnosis: Bitten by dog, sequela[ICD10: W54.0XXS] 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] Jeanie BLACK [employer] CPT-4: 72389 06/14/2019 ([id number]) OFFICE/OUTPATIENT VISIT EST Diagnosis: Bitten by dog, sequela[ICD10: W54.0XXS] Diagnosis: Other fatigue[ICD10: R53.83] Diagnosis: Hypothyroidism, unspecified[ICD10: E03.9] Diagnosis: Muscle weakness (generalized)[ICD10: M62.81] Diagnosis: Generalized anxiety disorder[ICD10: F41.1] Jannette BLACK [employer] CPT-4: 94354 05/13/2019 ([id number]) NURSE/OUTPATIENT VISIT EST Diagnosis: Encounter for therapeutic drug level monitoring[ICD10: Z51.81] Jeanie CONNELL OfeAxel VARUN [employer] CPT-4: 71133 05/06/2019 ([id number]) OFFICE/OUTPATIENT VISIT EST Diagnosis: Bitten by dog, sequela[ICD10: W54.0XXS] Diagnosis: Pain in right wrist[ICD10: M25.531] Diagnosis: Abrasion of right upper arm, sequela[ICD10: S40.811S] Diagnosis: Abrasion of left upper arm, sequela[ICD10: S40.812S] Jannette Mayen JEANIE OefAxel [employer] CPT-4: 63607 05/02/2019 ([id number]) NURSE/OUTPATIENT VISIT EST Diagnosis: Encounter for therapeutic drug level monitoring[ICD10: Z51.81] Jeanie CONNELL OfeAxel [employer] CPT-4: 27799 04/07/2019 ([id number]) OFFICE/OUTPATIENT VISIT NEW Diagnosis: Encounter for therapeutic drug level monitoring[ICD10: Z51.81] Diagnosis: Chronic atrial fibrillation[ICD10: I48.2] Diagnosis: Essential (primary) hypertension[ICD10: I10] Diagnosis: Abnormal findings on diagnostic imaging of heart and coronary circulation[ICD10: R93.1] Diagnosis: Other forms of dyspnea[ICD10: R06.09] Diagnosis: Hypothyroidism, unspecified[ICD10: E03.9] Diagnosis: Mixed hyperlipidemia[ICD10: E78.2] Jeanie MCKEE OfeAxel [employer]UN [employer] CPT-4: 36662 03/08/2019 Plan of Care Planned Activity Notes Codes Status Date Visit Diagnosis Plan: Left breast lump Discussion: Jonas [place] get US of left breast and soft tissue under breast and f/u with results. F/U for sooner for concerns. ICD-9 : 611.72 ICD-10 : N63.20 08/20/2021 App[facility]ment: [facility] [phone] [facility] [id number] US CANCELED 08/20/2021 Appointment: Remedios [facility]os [facility]el[facility] [phone] [facility] [facility] 08/20/2021 Patient Education: Patient Medication Summary Completed 08/20/2021 Appointment: Jeanie Black WPtel: [address] [place], [place] [address] see note in chart from 08/08/21 (km) CANCELED 08/08/2021 Appointment: Jeanie Black WPtel: [phone] [facility] US LAB 07/19/2021 Appointment: Jeanie Black WPtel: [address] [place], [place] [phone] US LAB 06/20/2021 Visit Diagnosis Plan: Severe obesity (BMI 35.0-39.9) w ith comorbidity Discussion: Discussed diet and exercise ICD-9 : 278.01 ICD-10 : E66.01 05/16/2021 Visit Diagnosis Plan: Obstructive sleep apnea syndrome Discussion: Per pulbautista note- [place] [facility] [place] [...] 05/16/2021 Appointment: Remedios Cavazos WPtel: [phone] [facility] [facility] MEDICATION REVIEW 05/16/2021 Patient Education: Patient Medication Summary Completed 05/16/2021 Patient Education: isosorbide mononitrate- [employer] C[employer]on [id number] https://www.[employer]/resources/getResourTRAFI/61/k9b3i6x2-k654-221o-e5 Completed 05/16/2021 Patient Education: High Blood Pressure Co mpleted 05/16/2021 Appointment: Jeanie Black WPtel: [address] [place], [place] [phone] US LAB 04/11/2021 Appointment: Jeanie Black WPtel: [address] [place], [place] [phone] US CANCELED 03/27/2021 Appointment: Jeanie Black WPtel: [address] [place], [place] [phone] US LAB 03/15/2021 Visit Diagnosis Plan: Pulmonary [...] : I10 03/05/2021 Appointment: Jeanie Black WPtel: [address] [place], [place] [phone] US FOLLOW UP 03/05/2021 Patient Education: spironolactone- [employer] C[employer] 1 [id number] https://www.[employer]/resources/getResource/61/0lm79za1-1d5e-9e72-6i Completed 03/05/2021 Appointment: Jeanie Black WPtel: [phone] EdltonsdhML[address] US LAB 02/22/2021 Visit Diagnosis Plan: Cheilitis [...] 02/19/2021 Appointment: Remedios Cavazos WPtel: [phone] MEDICATION REVIEW 02/19/2021 Patient Education: Patient [...] ICD-10 : K13.0 01/16/2021 Appointment: Jannette Mayen [address] [place] [address] ACUTE ILLNESS 01/16/2021 Appointment: Jeanie Black WPtel: [address] BP CHECK 11/19/2020 Visit Diagnosis Plan: [...] ICD-10 : I95.9 11/12/2020 Appointment: Jannette Mayen [address] [place] [address] ACUTE ILLNESS 11/12/2020 Visit Diagnosis Plan: Thoracic [...] : R42 10/12/2020 Appointment: Jannette Mayen [address] [facility] ACUTE ILLNESS 10/12/2020 Visit Diagnosis Plan: Chronic atrial fibrillation Disc ussion: Following routinely with cardiology ICD-9 : 427.31 ICD-10 : I48.20 09/26/2020 Visit Diagnosis Plan: Essential (primary) hypertension Discussion: Stable ICD-9 : 401.9 ICD-10 : I10 09/26/2020 Visit Diagnosis Plan: Encounter for [facility] adult medical examination without abnormal [...] : I50.32 09/26/2020 Appointment: Jeanie Black WPtel: [facility] [place] [id number] Annual Well Visit 09/26/2020 Care Plan: Referral Order SNOMED-CT : 30 [id number] Pending 09/26/2020 Visit Diagnosis Plan: Chronic airway [...] I48.20 08/27/2020 Appointment: Jeanie Black WPtel: [phone] [facility] US FOLLOW UP 08/27/2020 Visit Diagnosis Plan: [...] : I10 05/23/2020 Appointment: Jeanie Black WPtel: [address] [place], [place] [phone] FOLLOW UP 05/23/2020 Appointment: Jeanie Black WPtel: [address] [place] [address] NURSE SERVICES 05/02/2020 Visit Diagnosis Plan: Chronic [...] : J44.9 03/20/2020 Appointment: Jeanie Black WPtel: [address] [place], [place] [phone] TELEMEDICINE 03/20/2020 Patient Education: Coumadin- [employer] Coupon [id number] https://www.[employer]/sampleVanderdroid/resources/getResource/61/3q781r54-30c2-8jyn-8s Completed 03/20/2020 Patient Education: Coumadin- [employer] Coupon [id number] https://www.TrackM[employer]/sampleVanderdroid/resources/getResource/61/5sq08b7g-1x5u-0gg9-bq Completed 03/20/2020 Appointment: Jeanie Black WPtel: [address] [place], [place] [id number] US LAB 01/20/2020 Visit Diagnosis Plan: History of recent fall Discussio n: Healing well Doing balance class at [facility] Follow Up: 3 months ICD-9 : V15.88 ICD-10 : Z91.81 12/15/2019 Visit Diagnosis Plan: COPD (chronic obstructive pulmon valeria disease) Discussion: Continue pulmonary rehab ICD-9 : 496 ICD-10 : J44.9 12/15/2019 Visit Diagnosis Plan: Long-term (current ) use of anticoagulants, INR goal 2.0-3.0 Discussion: PT/INR drawn ICD-9 : V58.61 ICD-10 : Z79.01 12/15/2019 Appointment: Jeanie Black WPtel: [address] [place], [place] [phone] US FOLLOW UP 12/15/2019 Patient Education: Coumadin- [employer] Coupon [id number] https://www.[employer]/samplemd/resources/getResource/61/k062tywi-xs78-8bqi-7s Completed 12/15/2019 Appointment: Jeanie Black WPtel: [address] [place], [place] [phone] US LAB 11/10/2019 Visit Diagnosis Plan: Post [...] 496 ICD-10 : J44.9 11/03/2019 Appointment: Jeanie Blcak WPtel: [phone] FOLLOW UP 11/03/2019 Care Plan: CT HEAD/BRAIN W/O DYE LOINC : 10490-7 Pending 11/01/2019 Visit Diagnosis Plan: Essential (primary) [...] ICD-10 : S05.12XA 10/31/2019 Appointment: Jannette Mayen [address] [place] [address] Follow Up 10/31/2019 Patient Education: High Blood Pressure Co mpleted 10/31/2019 Patient Education: losartan- [employer] Coupon [id number] https://www.Zando.com/samplemd/resources/getResource/61/7y106231-1n57-8396-6o Completed 10/31/2019 Appointment: Jeanie Black WPtel: [address] [place] [id number] FOLLOW UP 10/26/2019 Visit Diagnosis Plan: Long-term (current ) use of anticoagulants, INR goal 2.0-3.0 Discussion: will update pt/inr ICD-9 : V58.61 ICD-10 : Z79.01 10/11/2019 Visit Diagnosis Plan: Radiculopathy of arm Discussion: flexeril prescribed to take as needed. will start at low dose but instructed patient to call office if not effective and will increase mg dose. PT ordered at [facility] to assist with pain. if no improvement or worsening from PT, will need imaging. ICD-9 : 723.4 ICD-10 : M54.10 10/11/2019 Appointment: Jannette Mayen [address] [place], [place] [id number] ACUTE ILLNESS 10/11/2019 Patient Education: cyclobenzaprine- [employer] Coupon [id number] https://www.Zando.[employer]/samplemd/resources/getResource/61/19v6x1p2-48w8-0r26-69 Completed 10/11/2019 Visit Diagnosis Plan: Bitten by dog, sequela Discussio n: Still seeing counselor Still doing therapy--left 4th finger still not agile enough to play violin and feels like pinched nerve in neck on right--dscussed stretches, massage, accupuncture---patient had hired consumer attorney ICD-9 : 906.1 ICD-10 : W54.0XXS 09/20/2019 Visit Diagnosis Plan: Encounter for [facility] adult medical examination without abnormal [...] Appointment: Jeanie Black WPtel: [phone] [id number] Annual Well Visit 09/20/2019 Visit Diagnosis Plan: [...] ICD-10 : Z79.01 09/08/2019 Appointment: Jannette Mayen [address] [place] [address] ACUTE ILLNESS 09/08/2019 Appointment: Jeanie Black WPtel: [address] [place] [address] US CANCELED 08/16/2019 Appointment: Jeanie Black WPtel: [address] [place] [address] US LAB 07/29/2019 Appointment: Jeanie Black WPtel: [address] [place] [address] US LAB 07/18/2019 Appointment: Jeanie Black WPtel: [address] [place] [address] US LAB 07/06/2019 Visit Diagnosis Plan: Bitten [...] : D64.9 06/14/2019 Appointment: Jeanie Black WPtel: [facility] [place] [id number] US FOLLOW UP 06/14/2019 Visit Diagnosis Plan: [...] : R53.83 05/13/2019 Appointment: Jannette Mayen Christina [address] [place], [place] [id number] FOLLOW UP 05/13/2019 Patient Education: carvedilol- [employer] Coupon [id number] https://www.samplemd.com/samplemd/resources/getResource/61/00e6m973-5cmk-3071-6c Completed 05/13/2019 Patient Education: Xanax- [employer] Coupon [id number] https://www.samplemd.com/samplemd/resources/getResource/61/3193n4h8-5i71-4c7h-s3 1e-1v01628155a4.pdf Completed 05/13/2019 Appointment: Jeanie Black WPtel: [address] [place] [address] US LAB 05/06/2019 Visit Diagnosis Plan: Abrasion [...] will send results to dr. portillo at [facility]. ICD-9 : 719.43 ICD-10 : M25.531 05/02/2019 Appointment: Jannette Mayen [address] [place] [address] ACUTE ILLNESS 05/02/2019 Care Plan: X-RAY EXAM OF WRIST right LOINC : 3 [id number] Pending 05/02/2019 Appointment: Jeanie Black WPtel: [address] [place], [place] [id number] US LAB 04/07/2019 Appointment: Jeanie Black WPtel: [address] [place] [address] US BP CHECK 03/22/2019 Visit Diagnosis Plan: [...] : I10 03/08/2019 Appointment: Jeanie Black WPtel: [address] [facility]UST NEW PATIENT 03/08/2019 Referral: Shona Viera WPtel: [facility] [address] [facility] [id number] Referral Appointment Requested Instructions No Instructions Medical Equipment No Medical Equipment data Health Concerns Section Health Concerns data not found Goals Section Goals data not found Interventions Section Interventions data not found Health Status Evaluations/Outcomes Section Health Status Evaluations/Outcomes data not found Advance Directives No Advance Directive data
--- OUTSIDE RECORDS SUMMARY | 2021-09-19 12:42 | XMS REPORT | CCD ---
Author Author Tricia Black D.O. Organization [facility] Address [address] [place] [address] Phone Care Team Providers Care Fire Alarm Inspector Name Role Phone PP Unavailable CCM Unavailable Summary Purpose Interface Exchange Insurance Providers Payer name Policy type / Coverage type Covered alliance party ID Effective Begin Date Effective End Date WPS MEDICARE PART B [place] Medicare Part B [id number] Unknown Unknown AARP Medicare Part B [id number] Unknown Unknown Family history Grandmother Diagnosis Age [...] Unknown Retired 03/08/[address]: 352336398 Has never smoked or chewed tobacco 03/08/[address]: 758326 Currently drinks alcohol 03/08 Has the patient [...] Fill Instructions losartan 100 mg tablet RxNorm: 785216 Take 1 Tablet(s) Oral QD 07/2411/02/2021 Active amoxicillin 500 mg capsule RxNorm: 412648 4 Capsule(s) Oral QD 1hr prior to dental cleaning 08/05/2021 08/05/2021 Inactive levothyroxine 50 mcg tablet RxNorm: 540584 TAKE 1 TABLE T BY MOUTH EVERY DAY. RECHECK LABS IN 2 MONTHS 08/04/2021 10/02/2021 Active potassium chloride ER 10 mEq tablet,extended release RxNorm: 222398 TAKE 1 TABLET BY MOUTH EVERY DAY 07/14/2021 10/11/2021 Active spironolactone 25 mg tablet RxNorm: 015109 1/2 Tablet(s) Oral QD No Stop Date Active isosorbide mononitrate ER 30 mg tablet,extended release 24 h r RxNorm: 158884 TABLET(S) 1 TABLET(S) PO NEEDED Tablet(s) Oral 05/16/2021 11/11/2021 Active Patient requests 90 days supply isosorbide mononitrate 10 mg tablet RxNorm: 974774 Take 1 Tablet(s) Oral two times a day 05/16/2021 05/16/2021 Inactive furosemide 40 mg tablet RxNorm: 140365 TAKE 1 TABLET BY MOUTH E VERY MORNING 05/07/2021 08/04/2021 Inactive isosorbide mononitrate 10 mg tablet RxNorm: 986433 Take 1 Tablet(s) Oral two times a day 04/26/2021 05/15/2021 Inactive isosorbide mononitrate 10 mg tablet RxNorm: 096358 Take 1 Tablet(s) Oral two times a day 04/25/2021 04/25/2021 Inactive potassium chloride ER 10 mEq tablet,extended release RxNorm: 450137 TAKE 1 TABLET BY MOUTH EVERY DAY 04/19/2021 04/19/2021 Inactive Coumadin 4 mg tablet RxNorm: 785391 1 Tablet(s) Oral Thursday04/11/2021 07/10/2021 Inactive Coumadin 2 mg tablet RxNorm: 247160 1 Tablet(s) Oral on Thursday and Thursday04/11/2021 07/10/2021 Inactive carvedilol 25 mg tablet RxNorm: 048965 1 Tablet(s) Oral two antolin es a day 04/03/2021 09/29/2021 Active Coumadin 2 mg tablet RxNorm: 236404 TAKE 1 TABLET BY [facility] ON THURSDAY AND Thursday03/26/2021 04/10/2021 Inactive Coumadin 4 mg tablet RxNorm: 918171 1 Tablet(s) Oral QD 02/26/2021 Inactive levothyroxine 50 mcg tablet RxNorm: 810227 1 Tablet(s) Oral QD Recheck labs in 2 months 02/26/2021 02/26/2021 Inactive Recheck labs in 2 months levothyroxine 50 mcg tablet RxNorm: 953542 1 Tablet(s) Oral QD Recheck labs in 2 months 02/26/2021 02/25/2021 Inactive Recheck labs in 2 months losartan 100 mg tablet RxNorm: 600630 TAKE 1 TABLET BY MOUTH EV 02/22/2021 08/20/2021 Active spironolactone 25 mg tablet RxNorm: 435657 1 Tablet(s) Oral QD 01/2303/04/2021 Inactive isosorbide mononitrate 10 mg tablet RxNorm: 562443 1 Ta blet(s) Oral two times a day 02/19/2021 02/25/2021 Inactive famotidine 20 mg tablet RxNorm: 070162 1 Tablet(s) Oral QD 02/20/2003/04/2021 Inactive levothyroxine 25 mcg tablet RxNorm: 989935 1 Tablet(s) Oral QD 03/0 07/202102/25/2021 Inactive atorvastatin 40 mg tablet RxNorm: 479779 1 Tablet(s) Or al QPM replaces pravastatin 01/29/2021 07/27/2021 Inactive furosemide 40 mg tablet RxNorm: 955904 TAKE 1 TABLET BY MOUTH E VERY MORNING 01/28/2021 01/28/2021 Inactive prednisone 10 mg tablet RxNorm: 256139 1 Tablet(s) Oral two antolin es a day 01/16/2021 01/19/2021 Inactive atorvastatin 40 mg tablet RxNorm: 151222 1 Tablet(s) Or al QPM replaces pravastatin 12/31/2020 01/28/2021 Inactive carvedilol 25 mg tablet RxNorm: 344911 TAKE 1 TABLET BY MOUTH T WICE DAILY 12/31/2020 04/02/2021 Inactive potassium chloride ER 10 mEq tablet,extended release RxNorm: 063278 TAKE 1 TABLET BY MOUTH EVERY DAY 12/31/2020 12/31/2020 Inactive losartan 100 mg tablet RxNorm: 454677 1 Tablet(s) Oral QD 12/03/2020 02/21/2021 Inactive Coumadin 4 mg tablet RxNorm: 323073 TAKE 1 TABLET BY [facility] THURSDAY THROUGH Thursday11/30/2020 02/25/2021 Inactive levothyroxine 25 mcg tablet RxNorm: 445595 1 Tablet(s) Oral QD 10/2401/28/2021 Inactive famotidine 20 mg tablet RxNorm: 743689 1 Tablet(s) Oral QD 11/19/20 20 01/15/2021 Inactive famotidine 20 mg tablet RxNorm: 602764 1 Tablet(s) Oral QD 11/19/20 20 11/18/2020 Inactive levothyroxine 50 mcg tablet RxNorm: 004695 TAKE 1 TABLET BY ENE EVERY DAY 11/06/2020 01/29/2021 Inactive furosemide 40 mg tablet RxNorm: 766688 TAKE 1 TABLET BY MOUTH E VERY MORNING 11/05/2020 01/27/2021 Inactive atorvastatin 40 mg tablet RxNorm: 895208 1 Tablet(s) Or al QPM replaces pravastatin 10/22/2020 12/30/2020 Inactive atorvastatin 40 mg tablet RxNorm: 175248 1 Tablet(s) Or al QPM replaces pravastatin 10/22/2020 10/21/2020 Inactive spironolactone 25 mg tablet RxNorm: 363932 1 Tablet(s) Oral QAM 01/15/2021 Inactive carvedilol 25 mg tablet RxNorm: 846243 TAKE 1 TABLET BY MOUTH T WICE DAILY 10/04/2020 12/30/2020 Inactive pravastatin 40 mg tablet RxNorm: 336754 TAKE 1 TABLET BY MOUTH EVERY DAY 10/04/2020 12/31/2020 Inactive potassium chloride ER 10 mEq tablet,extended release RxNorm: 157923 TAKE 1 TABLET BY MOUTH EVERY DAY 10/04/2020 12/30/2020 Inactive isosorbide mononitrate ER 30 mg tablet,extended release 24 h r RxNorm: 717975 TABLET(S) 1 TABLET(S) PO NEEDED Oral 10/04/2020 02/18/2021 Inactive Patient requests 90 days supply furosemide 40 mg tablet RxNorm: 650487 TAKE 1 TABLET BY MOUTH E VERY MORNING 10/01/2020 11/04/2020 Inactive losartan 100 mg tablet RxNorm: 090336 TAKE 1 TABLET BY MOUTH EV RANDI DAY 09/19/2020 12/02/2020 Inactive amlodipine 5 mg tablet RxNorm: 630909 1 Tablet(s) Oral QD 08/27/2020 11/11/2020 Inactive spironolactone 25 mg tablet RxNorm: 605183 1 Tablet(s) Oral QAM 03/202010/21/2020 Inactive levothyroxine 50 mcg tablet RxNorm: 625412 TAKE 1 TABLET BY ENE TH EVERY DAY 08/07/2020 11/04/2020 Inactive levothyroxine 50 mcg tablet RxNorm: 499952 TAKE 1 TABLET BY ENE TH EVERY DAY 08/06/2020 08/06/2020 Inactive amoxicillin 500 mg capsule RxNorm: 185483 4 Capsule(s) Oral QD 1hr prior to dental cleaning 07/31/2020 07/30/2020 Inactive amoxicillin 500 mg capsule RxNorm: 633300 4 Capsule(s) Oral QD 1hr prior to dental cleaning 07/31/2020 07/31/2020 Inactive potassium chloride ER 10 mEq tablet,extended release RxNorm: 283465 TAKE 1 TABLET BY MOUTH EVERY DAY 07/23/2020 10/03/2020 Inactive pravastatin 40 mg tablet RxNorm: 885025 TAKE 1 TABLET BY MOUTH EVERY DAY 07/23/2020 10/03/2020 Inactive carvedilol 25 mg tablet RxNorm: 598224 TAKE 1 TABLET BY MOUTH T WICE DAILY 07/23/2020 10/03/2020 Inactive losartan 100 mg tablet RxNorm: 441741 TAKE 1 TABLET BY MOUTH EV RANDI DAY 06/27/2020 09/18/2020 Inactive furosemide 40 mg tablet RxNorm: 754485 TAKE 1 TABLET BY MOUTH E VERY MORNING 06/08/2020 09/30/2020 Inactive Coumadin 4 mg tablet RxNorm: 403552 1 Tablet(s) Oral Thursday06/07/2020 11/29/2020 Inactive Coumadin 2 mg tablet RxNorm: 137477 1 Tablet(s) Oral on and Thursday03/20/2020 03/19/2020 Inactive Coumadin 4 mg tablet RxNorm: 745398 1 Tablet(s) Oral Thursday thr thursday03/20/2020 06/06/2020 Inactive losartan 100 mg tablet RxNorm: 157164 TAKE 1 TABLET BY MOUTH EV DAY 03/20/2020 06/26/2020 Inactive Coumadin 2 mg tablet RxNorm: 532933 1 Tablet(s) Oral on and Thursday03/20/2020 02/25/2021 Inactive furosemide 40 mg tablet RxNorm: 617764 1 Tablet(s) Oral QAM 020 06/07/2020 Inactive pravastatin 40 mg tablet RxNorm: 493553 TAKE 1 TABLET BY MOUTH EVERY DAY 02/07/2020 07/22/2020 Inactive losartan 100 mg tablet RxNorm: 830494 TAKE 1 TABLET BY MOUTH EV RANDI DAY 02/01/2020 03/19/2020 Inactive losartan 100 mg tablet RxNorm: 064829 TAKE 1 TABLET BY MOUTH EV RANDI DAY 01/17/2020 01/31/2020 Inactive Coumadin 2 mg tablet RxNorm: 451384 1 Tablet(s) Oral on and Thursday12/15/2019 12/15/2019 Inactive furosemide 40 mg tablet RxNorm: 554131 TAKE 1 TABLET BY MOUTH E VERY MORNING 12/14/2019 03/12/2020 Inactive pravastatin 40 mg tablet RxNorm: 792888 TAKE 1 TABLET BY MOUTH EVERY DAY 11/27/2019 02/06/2020 Inactive losartan 100 mg tablet RxNorm: 440242 1 Tablet(s) Oral QD 11/10/2019 01/16/2020 Inactive isosorbide mononitrate ER 30 mg tablet,extended release 24 h r RxNorm: 250388 TABLET(S) 1 TABLET(S) PO NEEDED 11/10/2019 05/08/2020 Inactive Patient requests 90 days supply carvedilol 25 mg tablet RxNorm: 602048 1 Tablet(s) Oral two antolin es a day 11/10/2019 05/08/2020 Inactive Coumadin 2 mg tablet RxNorm: 067104 1 Tablet(s) Oral on and Thursday11/10/2019 12/14/2019 Inactive losartan 100 mg tablet RxNorm: 255591 1 Tablet(s) Oral QD 11/10/2019 11/09/2019 Inactive levothyroxine 50 mcg tablet RxNorm: 814935 1 Tablet(s) Oral QD 10/2310/21/2020 Inactive Coumadin 4 mg tablet RxNorm: 923820 1 Tablet(s) Oral Thursday11/10/2019 11/10/2019 Inactive losartan 50 mg tablet RxNorm: 653696 2 Tablet(s) Oral QD 11/01/201901/10/2019 Inactive potassium chloride ER 10 mEq capsule,extended release RxNorm : 305329 1 Capsule(s) Oral QD 10/26/2019 12/14/2019 Inactive potassium chloride ER 10 mEq tablet,extended release RxNorm: 094052 1 TABLET(S) ORAL QD 10/22/2019 04/18/2020 Inactive Replaces PA on 1 0MEQ Capsules Aspir-81 mg tablet,delayed release RxNorm: 884276 1 Tablet(s) O ral QD 10/11/2019 No Stop Date Active cyclobenzaprine 5 mg tablet RxNorm: 612479 1 Tablet(s) Oral two times a day as needed for muscle spasm 10/11/2019 03/19/2020 Inactive Coumadin 4 mg tablet RxNorm: 062112 1 Tablet(s) Oral Mo through Thursday and 1/2 tablet (2mg) on Sat/Sun 10/11/2019 11/09/2019 Inactive potassium chloride ER 10 mEq tablet,extended release RxNorm: 702026 1 Tablet(s) Oral QD 09/22/2019 09/21/2019 Inactive Replaces PA on 1 0MEQ Capsules potassium chloride ER 10 mEq tablet,extended release RxNorm: 065827 1 Tablet(s) Oral QD 09/22/2019 10/10/2019 Inactive Replaces PA on 1 0MEQ Capsules potassium chloride ER 10 mEq capsule,extended release RxNorm : 815402 1 Capsule(s) Oral QD 09/21/2019 09/21/2019 Inactive carvedilol 25 mg tablet RxNorm: 860447 1 Tablet(s) Oral two antolin es a day 08/23/2019 11/09/2019 Inactive isosorbide mononitrate ER 30 mg tablet,extended release 24 h r RxNorm: 444480 TABLET(S) 1 TABLET(S) PO NEEDED 08/22/2019 10/04/2020 Inactive Patient requests 90 days supply isosorbide mononitrate ER 30 mg tablet,extended release 24 h r RxNorm: 394663 Tablet(s) 1 TABLET(S) PO NEEDED 08/16/2019 08/21/2019 Inactive Patient requests 90 days supply levothyroxine 50 mcg tablet RxNorm: 101237 1 Tablet(s) PO QD 201811/09/2019 Inactive isosorbide mononitrate ER 30 mg tablet,extended release 24 h r RxNorm: 692190 Tablet(s) 1 TABLET(S) PO NEEDED 06/27/2019 08/15/2019 Inactive Patient requests 90 days supply isosorbide mononitrate ER 30 mg tablet,extended release 24 h r RxNorm: 822241 1 Tablet(s) PO QD as needed 06/27/2019 06/27/2019 Inactive Neris ent requests 90 days supply carvedilol 25 mg tablet RxNorm: 852730 1 TABLET(S) PO BID 06/27/2019 08/22/2019 Inactive furosemide 40 mg tablet RxNorm: 379781 1 Tablet(s) PO QAM 06/21/2019 12/13/2019 Inactive carvedilol 25 mg tablet RxNorm: 501865 1 Tablet(s) PO BID 05/13/2019 06/26/2019 Inactive Xanax 0.25 mg tablet RxNorm: 251122 1/2 Tablet(s) PO Q6H as needed 05/13/2019 09/07/2019 Inactive levothyroxine 50 mcg tablet RxNorm: 033773 1 Tablet(s) PO QD 201808/07/2019 Inactive losartan 50 mg tablet RxNorm: 935477 1 Tablet(s) PO QD 04/26/2019 Inactive losartan 50 mg tablet RxNorm: 680493 1 Tablet(s) PO QD 04/20/201901/2019 Inactive pravastatin 40 mg tablet RxNorm: 057110 1 Tablet(s) PO QD 04/07/2019 06/05/2019 Inactive isosorbide mononitrate ER 30 mg tablet,extended release 24 h r RxNorm: 703431 1 Tablet(s) PO as needed 04/07/2019 04/06/2019 Inactive isosorbide mononitrate ER 30 mg tablet,extended release 24 h r RxNorm: 674386 1 TABLET(S) PO NEEDED 04/07/2019 06/26/2019 Inactive Patient requests 90 days supply losartan 50 mg tablet RxNorm: 507888 1 Tablet(s) PO QD 03/22/2019 Inactive Prolia subcutaneous RxNorm: 013750 subcutaneous 02/19/2021 A ctive carvedilol 25 mg tablet RxNorm: 235273 1 Tablet(s) PO BID 05/13/2019 05/12/2019 Inactive losartan 50 mg tablet RxNorm: 469294 1 Tablet(s) PO QD 03/22/2019 Inactive Ventolin HFA 90 mcg/actuation aerosol inhaler RxNorm: 055916 1-2 Puff(s) INH as needed 09/08/2019 09/07/2019 Inactive furosemide 40 mg tablet RxNorm: 239074 1 Tablet(s) PO QAM 06/21/2019 06/20/2019 Inactive pravastatin 40 mg tablet RxNorm: 238661 1 Tablet(s) PO QD 04/07/2019 04/06/2019 Inactive Coumadin 2 mg tablet RxNorm: 291662 1 Tablet(s) PO Mon, Fri, Sat and Sun then 2 tablets (4mg) on , Thu and 10/11/2019 10/10/2019 Inactive isosorbide mononitrate ER 30 mg tablet,extended release 24 h r RxNorm: 083253 Tablet(s) PO as needed 04/07/2019 04/06/2019 Inactive Women's Multivitamin 18 mg iron-400 mcg-500 mg tablet RxNorm : 1 Tablet(s) PO QD 09/08/2019 09/07/2019 Inactive Vitamin D3 1000 units Capsule RxNorm: 3 Capsule(s) PO QD 9 09/07/2019 Inactive vitamin B complex capsule RxNorm: 1 Capsule(s) PO QD 09/08/2019 Inactive potassium chloride ER 10 mEq capsule,extended release RxNorm : 984409 1 Capsule(s) PO QD 09/21/2019 09/20/2019 Inactive levothyroxine 50 mcg tablet RxNorm: 303568 1 Tablet(s) PO QD 201804/25/2019 Inactive Medication Administered No Medication Administered data Immunizations Vaccine Codes Date Status Influenza CVX: 135 07/06/2020 Pneumovax CVX: 33 02/03/2020 Influenza CVX: 135 07/02/2019 Results Observation Observation Code Item Item Code Result Date S ervice Location PT 6624889 PT 28.3 Seconds 07/19/2021 Unknow n PT [id number] INR 2.6 07/19/2021 Unknown COMPREHENSIVE METABOLIC 05798 AST 20 U/L 2020 Unknown COMPREHENSIVE METABOLIC 21752 ALT 16 U/L 2020 Unknown COMPREHENSIVE METABOLIC 07170 BUN 35 mg/dL 2020 Unknown COMPREHENSIVE METABOLIC 16209 ALBUMIN 4.1 g/dL 2020 Unknown COMPREHENSIVE METABOLIC 82665 CHLORIDE 105 mmol/L 06/20 Unknown COMPREHENSIVE METABOLIC 03683 Bili Total 1.1 mg/dL 06/20 Unknown COMPREHENSIVE METABOLIC 02208 ALK PHOS 103 U/L 2020 Unknown COMPREHENSIVE METABOLIC 65471 SODIUM 139 mmol/L 06/20 Unknown COMPREHENSIVE METABOLIC 37798 CREATININE 0.99 mg/dL 05/24 Unknown COMPREHENSIVE METABOLIC 49837 CALCIUM 8.8 mg/dL 2020 Unknown COMPREHENSIVE METABOLIC 22511 POTASSIUM 4.7 mmol/L 06/20 Unknown COMPREHENSIVE METABOLIC 22349 Total Protein 6.2 g/dL Unknown COMPREHENSIVE METABOLIC 02923 Glucose 83 mg/dL 2020 Unknown COMPREHENSIVE METABOLIC 55472 Bicarbonate 27 mmol/L 05/24 Unknown COMPREHENSIVE METABOLIC 12230 AGAP 7 mmol/L 2020 Unknown COMPLETE BLOOD COUNT 1147583 WBC 4.5 10e9/L 06/20/20 21 Unknown COMPLETE BLOOD COUNT [id number] RBC 3.99 10e12/L 2020 Unknown COMPLETE BLOOD COUNT [id number] HEMOGLOBIN 11.8 g/dL 06/20/20 21 Unknown COMPLETE BLOOD COUNT [id number] HEMATOCRIT 36.6 % 06/20/20 21 Unknown COMPLETE BLOOD COUNT [id number] MCV 91.7 fL 1 Unknown COMPLETE BLOOD COUNT [id number] MCH 29.6 pg 1 Unknown COMPLETE BLOOD COUNT 7437802 MCHC 32.2 g/dL 1 Unknown COMPLETE BLOOD COUNT [id number] PLATELET COUNT 180 10e9/L Unknown COMPLETE BLOOD COUNT 7634532 Mean Plt Volume 11.1 fL Unknown COMPLETE BLOOD COUNT 1177775 Neut Auto 64.7 % 1 Unknown COMPLETE BLOOD COUNT [id number] Lymph Auto 19.6 % 06/20/20 21 Unknown COMPLETE BLOOD COUNT 9909240 [place] Auto 13.5 % 1 Unknown COMPLETE BLOOD COUNT 7926508 RDW 15.1 % 1 Unknown COMPLETE BLOOD COUNT 6309775 Eos Auto 1.8 % 1 Unknown COMPLETE BLOOD COUNT 9829149 Baso Auto 0.4 % 1 Unknown COMPLETE BLOOD COUNT 2296508 Neutrophil Abs 2.91 10e9/L Unknown COMPLETE BLOOD COUNT 5459049 Lymphocyte Abs 0.88 10e9/L Unknown COMPLETE BLOOD COUNT [id number] Monocyte Abs 0.61 10e9/L 05/24 Unknown COMPLETE BLOOD COUNT 1537126 Eosinophil Abs 0.08 10e9/L Unknown COMPLETE BLOOD COUNT [id number] RDW-SD 49.5 fL 1 Unknown COMPLETE BLOOD COUNT [id number] Basophil Abs 0.02 10e9/L 05/24 Unknown GFR CALC 0795269 GFR Non Afr Amr 53 mL/min 06/20/2021 Unk nown GFR CALC [id number] GFR Afr Amr >60 mL/min 06/20/2021 Unknow n PT [id number] PT 27.4 Seconds 06/20/2021 Unknow n PT [id number] INR 2.5 06/20/2021 Unknown PT [id number] PT 25.8 Seconds 05/21/2021 Unknow n PT [id number] INR 2.3 05/21/2021 Unknown FREE T4 09467 T4 Free 1.19 ng/dL 04/11/2021 Unknown PT [id number] PT 33.6 Seconds 04/11/2021 Unknow n PT [id number] INR 3.3 04/11/2021 Unknown THYROID STIMULATING HORMONE 56923 TSH 3.912 uIU/mL 04/11/2021 Unknown PT [id number] PT 33.1 Seconds 03/15/2021 Unknow n PT [id number] INR 3.2 03/15/2021 Unknown PT [id number] PT 24.6 Seconds 05/23/2020 Unknow n PT [id number] INR 2.2 05/23/2020 Unknown PT [id number] PT 31.4 Seconds 10/26/2019 Unknow n PT [id number] INR 2.9 10/26/2019 Unknown PT [id number] PT 17.6 Seconds 10/11/2019 Unknow n PT [id number] INR 1.4 10/11/2019 Unknown PT [id number] PT 23.7 Seconds 09/08/2019 Unknow n PT [id number] INR 2.0 09/08/2019 Unknown PT [id number] PT 23.2 Seconds 07/29/2019 Unknow n PT [id number] INR 2.0 07/29/2019 Unknown PT [id number] PT 14.3 Seconds 07/18/2019 Unknow n PT [id number] INR 1.1 07/18/2019 [place] [address] Glucose 75 mg/dL 07/06 [place] [address] CREATININE 0.61 mg/dL [place] [address] BUN 15 mg/dL 07/06 [place] [address] SODIUM 142 mmol/L 06/23 [place] [address] POTASSIUM 4.0 mmol/L 06/23 [place] [address] CHLORIDE 106 mmol/L 06/23 [place] [address] Bicarbonate 28 mmol/[place] [address] AGAP 8 mmol/L 07/06 [place] [address] CALCIUM 9.3 mg/dL 07/06 Unknown PT [id number] PT 17.4 Seconds 07/06/2019 Unknow n PT [id number] INR 1.4 07/06/2019 Unknown GFR CALC 1989289 GFR Non Afr Amr >60 mL/min 07/06/2019 Un known GFR CALC [id number] GFR Afr Amr >60 mL/min 07/06/2019 Unknow n COMPLETE BLOOD COUNT [id number] WBC 4.7 10e9/L 07/06/20 19 Unknown COMPLETE BLOOD COUNT [id number] RBC 4.19 10e12/L 2018 Unknown COMPLETE BLOOD COUNT 9334107 HEMOGLOBIN 12.6 g/dL 07/06/20 19 Unknown COMPLETE BLOOD COUNT [id number] HEMATOCRIT 39.4 % 07/06/20 19 Unknown COMPLETE BLOOD COUNT [id number] MCV 94.0 fL 9 Unknown COMPLETE BLOOD COUNT 2628636 MCH 30.1 pg 9 Unknown COMPLETE BLOOD COUNT 0692353 MCHC 32.0 g/dL 9 Unknown COMPLETE BLOOD COUNT 3019696 PLATELET COUNT 160 10e9/L Unknown COMPLETE BLOOD COUNT 9608382 Mean Plt Volume 11.0 fL Unknown COMPLETE BLOOD COUNT 1262671 Neut Auto 56.6 % 9 Unknown COMPLETE BLOOD COUNT [id number] Lymph Auto 27.0 % 07/06/20 19 Unknown COMPLETE BLOOD COUNT 4279493 [place] Auto 13.7 % 9 Unknown COMPLETE BLOOD COUNT [id number] RDW 14.6 % 9 Unknown COMPLETE BLOOD COUNT 2406877 Eos Auto 2.1 % 9 Unknown COMPLETE BLOOD COUNT [id number] Baso Auto 0.6 % 9 Unknown COMPLETE BLOOD COUNT 5213659 Neutrophil Abs 2.66 10e9/L Unknown COMPLETE BLOOD COUNT 1082232 Lymphocyte Abs 1.27 10e9/L Unknown COMPLETE BLOOD COUNT [id number] Monocyte Abs 0.64 10e9/L 06/23 Unknown COMPLETE BLOOD COUNT 1217844 Eosinophil Abs 0.10 10e9/L Unknown COMPLETE BLOOD COUNT 7832427 RDW-SD 48.7 fL 9 Unknown COMPLETE BLOOD COUNT [id number] Basophil Abs 0.03 10e9/L 06/23 Unknown COMPLETE BLOOD COUNT [id number] WBC 4.6 10e9/L 06/14/20 19 Unknown COMPLETE BLOOD COUNT [id number] RBC 4.16 10e12/L 2018 Unknown COMPLETE BLOOD COUNT 3480854 HEMOGLOBIN 12.6 g/dL 06/14/20 19 Unknown COMPLETE BLOOD COUNT 0557352 HEMATOCRIT 39.1 % 06/14/20 19 Unknown COMPLETE BLOOD COUNT 8550159 MCV 94.0 fL 9 Unknown COMPLETE BLOOD COUNT 4228619 MCH 30.3 pg 9 Unknown COMPLETE BLOOD COUNT 8490836 MCHC 32.2 g/dL 9 Unknown COMPLETE BLOOD COUNT 9295648 PLATELET COUNT 167 10e9/L Unknown COMPLETE BLOOD COUNT 6194932 Mean Plt Volume 10.9 fL Unknown COMPLETE BLOOD COUNT 4274302 Neut Auto 59.6 % 9 Unknown COMPLETE BLOOD COUNT 6938731 Lymph Auto 24.1 % 06/14/20 19 Unknown COMPLETE BLOOD COUNT 6590168 [place] Auto 14.0 % 9 Unknown COMPLETE BLOOD COUNT 7617099 RDW 14.8 % 9 Unknown COMPLETE BLOOD COUNT 1897328 Eos Auto 1.9 % 9 Unknown COMPLETE BLOOD COUNT 1223413 Baso Auto 0.4 % 9 Unknown COMPLETE BLOOD COUNT 6080886 Neutrophil Abs 2.74 10e9/L Unknown COMPLETE BLOOD COUNT 0995870 Lymphocyte Abs 1.11 10e9/L Unknown COMPLETE BLOOD COUNT [id number] Monocyte Abs 0.64 10e9/L 05/24 Unknown COMPLETE BLOOD COUNT 1206058 Eosinophil Abs 0.09 10e9/L Unknown COMPLETE BLOOD COUNT 0523226 RDW-SD 49.3 fL 9 Unknown COMPLETE BLOOD COUNT [id number] Basophil Abs 0.02 10e9/L 05/24 Unknown PT [id number] PT 22.3 Seconds 06/14/2019 Unknow n PT [id number] INR 1.9 06/14/2019 Unknown COMPLETE BLOOD COUNT 9881827 WBC 4.0 10e9/L 05/13/20 19 Unknown COMPLETE BLOOD COUNT [id number] RBC 3.82 10e12/L 2018 Unknown COMPLETE BLOOD COUNT [id number] HEMOGLOBIN 11.5 g/dL 05/13/20 19 Unknown COMPLETE BLOOD COUNT [id number] HEMATOCRIT 36.4 % 05/13/20 19 Unknown COMPLETE BLOOD COUNT [id number] MCV 95.3 fL 9 Unknown COMPLETE BLOOD COUNT [id number] MCH 30.1 pg 9 Unknown COMPLETE BLOOD COUNT 0142538 MCHC 31.6 g/dL 9 Unknown COMPLETE BLOOD COUNT 3155257 PLATELET COUNT 175 10e9/L Unknown COMPLETE BLOOD COUNT 9136219 Mean Plt Volume 10.5 fL Unknown COMPLETE BLOOD COUNT 1163381 Neut Auto 63.2 % 9 Unknown COMPLETE BLOOD COUNT [id number] Lymph Auto 22.0 % 05/13/20 19 Unknown COMPLETE BLOOD COUNT 0352676 [place] Auto 12.1 % 9 Unknown COMPLETE BLOOD COUNT 1170370 RDW 14.9 % 9 Unknown COMPLETE BLOOD COUNT 4091589 Eos Auto 2.2 % 9 Unknown COMPLETE BLOOD COUNT 7330597 Baso Auto 0.5 % 9 Unknown COMPLETE BLOOD COUNT 2205006 Neutrophil Abs 2.53 10e9/L Unknown COMPLETE BLOOD COUNT 7343492 Lymphocyte Abs 0.88 10e9/L Unknown COMPLETE BLOOD COUNT [id number] Monocyte Abs 0.48 10e9/L 04/24 Unknown COMPLETE BLOOD COUNT 8818191 Eosinophil Abs 0.09 10e9/L Unknown COMPLETE BLOOD COUNT [id number] RDW-SD 49.6 fL 9 Unknown COMPLETE BLOOD COUNT [id number] Basophil Abs 0.02 10e9/L 04/24 Unknown COMPREHENSIVE METABOLIC 90927 AST 18 U/L 2018 Unknown COMPREHENSIVE METABOLIC 23476 ALT 14 U/L 2018 Unknown COMPREHENSIVE METABOLIC 90381 BUN 15 mg/dL 2018 Unknown COMPREHENSIVE METABOLIC 60273 ALBUMIN 4.0 g/dL 2018 Unknown COMPREHENSIVE METABOLIC 81712 CHLORIDE 108 mmol/L 05/13 Unknown COMPREHENSIVE METABOLIC 39518 Bili Total 0.9 mg/dL 05/13 Unknown COMPREHENSIVE METABOLIC 09238 ALK PHOS 84 U/L 2018 Unknown COMPREHENSIVE METABOLIC 38539 SODIUM 142 mmol/L 05/13 Unknown COMPREHENSIVE METABOLIC 10421 CREATININE 0.72 mg/dL 04/24 Unknown COMPREHENSIVE METABOLIC 17724 CALCIUM 8.9 mg/dL 2018 Unknown COMPREHENSIVE METABOLIC 30155 POTASSIUM 4.0 mmol/L 05/13 Unknown COMPREHENSIVE METABOLIC 07256 Total Protein 5.5 g/dL Unknown COMPREHENSIVE METABOLIC 02210 Glucose 95 mg/dL 2018 Unknown COMPREHENSIVE METABOLIC 93924 Bicarbonate 27 mmol/L 04/24 Unknown COMPREHENSIVE METABOLIC 24946 AGAP 7 mmol/L 2018 Unknown GFR CALC [id number] GFR Non Afr Amr >60 mL/min 05/13/2019 Un known GFR CALC 4726025 GFR Afr Amr >60 mL/min 05/13/2019 Unknow n THYROID STIMULATING HORMONE 14714 TSH 2.669 uIU/mL 05/13/2019 Unknown FREE T4 81734 T4 Free 1.19 ng/dL 05/13/2019 Unknown PT [id number] PT 24.2 Seconds 05/06/2019 Unknow n PT [id number] INR 2.1 05/06/2019 Unknown PT [id number] PT 24.1 Seconds 03/08/2019 Unknow n PT [id number] INR 2.9 03/08/2019 Unknown Procedures Procedure Codes Date ROUTINE VENIPUNCTURE CPT-4: 78677 07/19/2021 PROTHROMBIN TIME CPT-4: 71186 07/19/2021 ROUTINE VENIPUNCTURE CPT-4: 72265 06/20/2021 COMPREHEN METABOLIC PANEL CPT-4: 54512 06/20/2021 COMPLETE CBC W/AUTO DIFF WBC CPT-4: 85390 06/20/2021 PROTHROMBIN TIME CPT-4: 58583 06/20/2021 PT CPT-4: 9628766 05/16/2021 ROUTINE VENIPUNCTURE CPT-4: 67669 05/16/2021 ROUTINE VENIPUNCTURE CPT-4: 47757 04/11/2021 PROTHROMBIN TIME CPT-4: 52321 04/11/2021 ASSAY OF FREE THYROXINE CPT-4: 40566 04/11/2021 ASSAY THYROID STIM HORMONE CPT-4: 89131 04/11/2021 ROUTINE VENIPUNCTURE CPT-4: 84888 03/15/2021 PT CPT-4: 2133080 03/15/2021 ROUTINE VENIPUNCTURE CPT-4: 79497 02/22/2021 COMPREHEN METABOLIC PANEL CPT-4: 55044 02/22/2021 ASSAY OF FREE THYROXINE CPT-4: 17963 02/22/2021 ASSAY THYROID STIM HORMONE CPT-4: 94248 02/22/2021 COMPLETE CBC W/AUTO DIFF WBC CPT-4: 74160 02/22/2021 PROTHROMBIN TIME CPT-4: 30730 02/22/2021 LIPID PANEL CPT-4: 29938 02/22/2021 PPPS, subseq visit CPT-4: G0439 09/26/2020 ROUTINE VENIPUNCTURE CPT-4: 67239 05/23/2020 PROTHROMBIN TIME CPT-4: 69321 05/23/2020 ROUTINE VENIPUNCTURE CPT-4: 38892 01/20/2020 PT CPT-4: 8917617 01/20/2020 ROUTINE VENIPUNCTURE CPT-4: 85827 12/15/2019 PROTHROMBIN TIME CPT-4: 58088 12/15/2019 ROUTINE VENIPUNCTURE CPT-4: 51495 11/10/2019 PROTHROMBIN TIME CPT-4: 11347 11/10/2019 PROTHROMBIN TIME CPT-4: 28376 10/26/2019 ROUTINE VENIPUNCTURE CPT-4: 61938 10/26/2019 ROUTINE VENIPUNCTURE CPT-4: 44437 10/11/2019 PT CPT-4: 5721652 10/11/2019 PPPS, initial visit CPT-4: G0438 09/20/2019 ROUTINE VENIPUNCTURE CPT-4: 79801 09/08/2019 PT CPT-4: 7573088 09/08/2019 THER/PROPH/DIAG INJ SC/IM CPT-4: 33710 09/08/2019 TRIAMCINOLONE ACET INJ NOS CPT-4: J3301 09/08/2019 ROUTINE VENIPUNCTURE CPT-4: 26724 07/29/2019 PT CPT-4: 7975906 07/29/2019 ROUTINE VENIPUNCTURE CPT-4: 15206 07/18/2019 PT CPT-4: 7268406 07/18/2019 METABOLIC PANEL TOTAL CA CPT-4: 00823 07/06/2019 COMPLETE CBC W/AUTO DIFF WBC CPT-4: 71725 07/06/2019 PROTHROMBIN TIME CPT-4: 62097 07/06/2019 ROUTINE VENIPUNCTURE CPT-4: 65957 06/14/2019 PROTHROMBIN TIME CPT-4: 67569 06/14/2019 COMPLETE CBC W/AUTO DIFF WBC CPT-4: 67717 06/14/2019 ROUTINE VENIPUNCTURE CPT-4: 32069 05/13/2019 COMPREHEN METABOLIC PANEL CPT-4: 11649 05/13/2019 COMPLETE CBC W/AUTO DIFF WBC CPT-4: 31645 05/13/2019 ASSAY THYROID STIM HORMONE CPT-4: 86350 05/13/2019 ASSAY OF FREE THYROXINE CPT-4: 95053 05/13/2019 PT CPT-4: 0170065 05/06/2019 ROUTINE VENIPUNCTURE CPT-4: 22453 05/06/2019 PT CPT-4: 2234918 04/07/2019 ROUTINE VENIPUNCTURE CPT-4: 93656 04/07/2019 ROUTINE VENIPUNCTURE CPT-4: 45312 03/08/2019 PROTHROMBIN TIME CPT-4: 93278 03/08/2019 Vital Signs Date Vital 05/16/2021 Blood Pressure 1: 136/64 Code: 8480-6 BMI: 37.0 Code: 45367-1 Heart Rate 1: 61 bpm Height: 5'3" Code: 8302-2 Respiratory Rate: 16 bpm SpO2: 98% Temperature: 36.2 (C) / 97.1 (F) Weight: 212 lbs Code: 56546-6 03/05/2021 Blood Pressure 1: 134/76 Code: 8480-6 Heart Rate 1: 66 bpm Respiratory Rate: 16 bpm SpO2: 100% Temperature: 37.1 (C) / 98.7 (F) We ight: 203 lbs Code: 05535-9 02/19/2021 Blood Pressure 1: 126/70 Code: 8480-6 BMI: 35.4 Code: 95319-4 Heart Rate 1: 72 bpm Height: 5'3" Code: 8302-2 Respiratory Rate: 16 bpm SpO2: 99% Temperature: 36.3 (C) / 97.3 (F) Weight: 203 lbs Code: 14859-4 01/16/2021 Blood Pressure 1: 112/74 Code: 8480-6 Heart Rate 1: 76 bpm Respiratory Rate: 20 bpm Temperature: 36.7 (C) / 98.0 (F) Weight: 205 lbs Code : 83156-7 11/19/2020 Blood Pressure 1: 120/78 Code: 8480-6 Heart Rate 1: 88 bpm Temperature: 36.6 (C) / 97.8 (F) 11/12/2020 Blood Pressure 1: 110/57 Code: 8480-6 Heart Rate 1: 68 bpm Respiratory Rate: 15 bpm SpO2: 100% Weight: 202 lbs Code: 27153 -7 10/12/2020 Blood Pressure 1: 114/70 Code: 8480-6 Heart Rate 1: 84 bpm Respiratory Rate: 18 bpm SpO2: 98% Temperature: 36.7 (C) / 98.0 (F) 09/26/2020 Blood Pressure 1: 120/72 Code: 8480-6 BMI: 35.2 Code: 02119-7 Heart Rate 1: 76 bpm Height: 5'3" Code: 8302-2 Respiratory Rate: 20 bpm SpO2: 97% Temperature: 36.7 (C) / 98.0 (F) Weight: 202 lbs Code: 05215-5 08/27/2020 Blood Pressure 1: 126/82 Code: 8480-6 Heart Rate 1: 80 bpm Respiratory Rate: 20 bpm Temperature: 36.2 (C) / 97.1 (F) Weight: 198 lbs Code : 80027-3 05/23/2020 Blood Pressure 1: 120/78 Code: 8480-6 Heart Rate 1: 68 bpm Respiratory Rate: 20 bpm SpO2: 97% Temperature: 36.4 (C) / 97.5 (F) We ight: 200 lbs Code: 68528-8 05/02/2020 Blood Pressure 1: 133/81 Code: 8480-6 Heart Rate 1: 74 bpm Weight: 202 lbs Code: 84463-1 12/15/2019 Blood Pressure 1: 126/82 Code: 8480-6 Heart Rate 1: 64 bpm Respiratory Rate: 20 bpm SpO2: 97% Temperature: 36.6 (C) / 97.8 (F) We ight: 201 lbs Code: 00355-9 11/03/2019 Blood Pressure 1: 142/82 Code: 8480-6 [...] / 98.1 (F) Weight: 204 lbs Code: 44507-0 09/20/2019 Blood Pressure 1: 122/68 Code: 8480-6 BMI: 35.0 Code: 73547-7 Heart Rate 1: 72 bpm Height: 5'3" Code: 8302-2 Respiratory Rate: 18 bpm SpO2: 95% Temperature: 36.8 (C) / 98.3 (F) Weight: 201 lbs Code: 89327-4 09/08/2019 Blood Pressure 1: 118/72 Code: 8480-6 Heart Rate 1: 82 bpm SpO2: 97% Temperature: 36.3 (C) / 97.4 (F) Weight: 208 lbs Code: 09697-3 06/14/2019 Blood Pressure 1: 128/84 Code: 8480-6 Heart Rate 1: 72 bpm Respiratory Rate: 20 bpm SpO2: 98% Temperature: 36.7 (C) / 98.1 (F) We ight: 209 lbs Code: 78394-7 05/13/2019 Blood Pressure 1: 144/90 Code: 8480-6 Heart Rate 1: 88 bpm Respiratory Rate: 24 bpm SpO2: 96% Temperature: 37.1 (C) / 98.8 (F) We ight: 210 lbs Code: 48695-7 05/02/2019 Blood Pressure 1: 128/80 Code: 8480-6 Heart Rate 1: 84 bpm Respiratory Rate: 20 bpm SpO2: 95% Temperature: 36.6 (C) / 97.9 (F) We ight: 209 lbs Code: 49635-2 03/22/2019 Blood Pressure 1: 122/70 Code: 8480-6 art Rate 1: 85 bpm 03/08/2019 Blood Pressure 1: 114/78 Code: 8480-6 BMI: 36.1 Code: 98536-9 Heart Rate 1: 76 bpm Height: 5'3" Code: 8302-2 Respiratory Rate: 20 bpm SpO2: 97% Temperature: 37.1 (C) / 98.8 (F) Weight: 207 lbs Code: 53153-1 Functional Status No Functional Status data Reason For Visit Reason For Visit Effective Dates Notes ~generic 05/16/2021 Patient needs her Pr izabel [...] woman exam (65+ years) 09/26/2020 Medicare [place] [facility]--due for mammogram follow up 08/27/2020 follow up [...] pressure check 03/22/2019 ~generic 03/08/2019 New Patient---establ sandraing visit Encounters Encounter Performer Location Codes Date ([id number]) NURSE/OUTPATIENT VISIT EST Diagnosis: Long-term (current) use of anticoagulants, INR goal 2.0-3.0[ICD10: Z79.01] Jeanie BLACK Wikirin CPT-4: 41695 07/19/2021 ([id number]) NURSE/OUTPATIENT VISIT EST Diagnosis: Essential (primary) hypertension[ICD10: I10] Diagnosis: Chronic atrial fibrillation[ICD10: I48.20] Diagnosis: Long-term (current) use of anticoagulants, INR goal 2.0-3.0[ICD10: Z79.01] Diagnosis: Anemia, unspecified[ICD10: D64.9] Jeanie BLACK Wikirin CPT-4: 69074 06/20/2021 ([id number]) OFFICE/OUTPATIENT VISIT EST Diagnosis: Long-term (current) use of anticoagulants, INR goal 2.0-3.0[ICD10: Z79.01] Diagnosis: Essential (primary) hypertension[ICD10: I10] Diagnosis: Chronic congestive heart failure with left ventricular diastolic dysfunction[ICD10: I50.32] Diagnosis: Severe obesity (BMI 35.0-39.9) with comorbidity[ICD10: E66.01] Diagnosis: Chronic atrial fibrillation[ICD10: I48.20] Diagnosis: Obstructive sleep apnea syndrome[ICD10: G47.33] Remedios JENNINGSLINE David BLACK [employer] [facility] CPT-4: 74996 05/16/2021 ([id number]) NURSE/OUTPATIENT VISIT EST Diagnosis: Hypothyroidism, unspecified[ICD10: E03.9] Diagnosis: Long-term (current) use of anticoagulants, INR goal 2.0-3.0[ICD10: Z79.01] Jeanie CONNELL OfeAxel VARUN [employer] [facility] CPT-4: 77234 04/11/2021 ([id number]) NURSE/OUTPATIENT VISIT EST Diagnosis: Long-term (current) use of anticoagulants, INR goal 2.0-3.0[ICD10: Z79.01] Jeanie CONNELL OfeAxel VARUN [employer] [facility] CPT-4: 57360 03/15/2021 ([id number]) OFFICE/OUTPATIENT VISIT EST Diagnosis: Essential hypertension[ICD10: I10] Diagnosis: Cheilitis[ICD10: K13.0] Diagnosis: Pulmonary hypertension[ICD10: I27.20] Jeanie AGUILERA OfeAxel VARUN [employer] [facility] CPT-4: 93905 03/05/2021 ([id number]) NURSE/OUTPATIENT VISIT EST Diagnosis: Essential (primary) hypertension[ICD10: I10] Diagnosis: Hypothyroidism, unspecified[ICD10: E03.9] Diagnosis: Long-term (current) use of anticoagulants, INR goal 2.0-3.0[ICD10: Z79.01] Diagnosis: Mixed hyperlipidemia[ICD10: E78.2] Jeanie MCKEE OfeAxel VARUN [employer] [facility] CPT-4: 52741 02/22/2021 ([id number]) OFFICE/OUTPATIENT VISIT EST Diagnosis: Cheilitis[ICD10: K13.0] Diagnosis: Encounter for medication review and counseling[ICD10: Z71.89] Diagnosis: Long-term (current) use of anticoagulants, INR goal 2.0-3.0[ICD10: Z79.01] Diagnosis: Hypothyroidism, unspecified[ICD10: E03.9] Diagnosis: Mixed hyperlipidemia[ICD10: E78.2] Diagnosis: Severe obesity (BMI 35.0-39.9) with comorbidity[ICD10: E66.01] Diagnosis: Chronic congestive heart failure with left ventricular diastolic dysfunction[ICD10: I50.32] Remedios ThakurAxel VARUN MCCURDY [facility] CPT- 4: 89080 02/19/2021 ([id number]) OFFICE/OUTPATIENT VISIT EST Diagnosis: Cheilitis[ICD10: K13.0] Jannette JENNINGSLINE David PIZNON DO [facility] CPT-4: 76014 01/16/2021 ([id number]) OFFICE/OUTPATIENT VISIT EST Diagnosis: Hypotension[ICD10: I95.9] Diagnosis: Dizziness[ICD10: R42] Jannette ThakurAxel VARUN MCCURDY C CPT-4: 86634 11/12/2020 ([id number]) OFFICE/OUTPATIENT VISIT EST Diagnosis: Thoracic back pain[ICD10: M54.6] Diagnosis: Dizziness[ICD10: R42] Jannette ThakurAxel VARUN MCCURDY [facility] CPT-4: 16948 10/12/2020 ([id number]) OFFICE/OUTPATIENT VISIT EST Diagnosis: Chronic atrial fibrillation[ICD10: I48.20] Diagnosis: Chronic airway obstruction, not elsewhere classified[ICD10: J44.9] Diagnosis: Essential hypertension[ICD10: I10] Jeanie MCKEE OfeAxel VARUN MCCURDY [facility] CPT-4: 55414 08/27/2020 ([id number]) OFFICE/OUTPATIENT VISIT EST Diagnosis: Essential (primary) hypertension[ICD10: I10] Diagnosis: Chronic atrial fibrillation[ICD10: I48.20] Diagnosis: COPD (chronic obstructive pulmonary disease)[ICD10: J44.9] Diagnosis: Dyspnea[ICD10: R06.00] Diagnosis: Left hip pain[ICD10: M25.552] Jeanie CONNELL OfeAxel VAURN MCCURDY [facility] CPT-4: 05744 05/23/2020 ([id number]) NURSE/OUTPATIENT VISIT EST Diagnosis: Essential (primary) hypertension[ICD10: I10] Jeanie BLACK DO [facility] CPT-4: 61949 05/02/2020 ([id number]) OFFICE/OUTPATIENT VISIT EST Diagnosis: COPD (chronic obstructive pulmonary disease)[ICD10: J44.9] Diagnosis: Chronic atrial fibrillation[ICD10: I48.20] Diagnosis: Essential hypertension[ICD10: I10] Jeanie [facility] CPT-4: 99748 03/20/2020 ([id number]) NURSE/OUTPATIENT VISIT EST Diagnosis: Long-term (current) use of anticoagulants, INR goal 2.0-3.0[ICD10: Z79.01] Jeanie BLACK DO [facility] CPT-4: 56938 01/20/2020 ([id number]) OFFICE/OUTPATIENT VISIT EST Diagnosis: COPD (chronic obstructive pulmonary disease)[ICD10: J44.9] Diagnosis: Long-term (current) use of anticoagulants, INR goal 2.0-3.0[ICD10: Z79.01] Diagnosis: History of recent fall[ICD10: Z91.81] Jeanie BLACK DO [facility] CPT-4: 80105 12/15/2019 ([id number]) NURSE/OUTPATIENT VISIT EST Diagnosis: Long-term (current) use of anticoagulants, INR goal 2.0-3.0[ICD10: Z79.01] Jeanie BLACK DO [facility] CPT-4: 96869 11/10/2019 ([id number]) OFFICE/OUTPATIENT VISIT EST Diagnosis: Post concussion syndrome[ICD10: F07.81] Diagnosis: Head contusion[ICD10: S00.93XA] Diagnosis: Chronic airway obstruction, not elsewhere classified[ICD10: J44.9] Jeanie BLACK DO [facility] CPT-4: 77036 11/03/2019 ([id number]) OFFICE/OUTPATIENT VISIT EST Diagnosis: Fall as cause of accidental injury at home as place of occurrence[ICD10: W19.XXXA] Diagnosis: Headache[ICD10: R51] Diagnosis: Essential (primary) hypertension[ICD10: I10] Diagnosis: Long-term (current) use of anticoagulants, INR goal 2.0-3.0[ICD10: Z79.01] Diagnosis: Ecchymosis of left eye[ICD10: S05.12XA] Jannette BLACK DO [employer] CPT-4: 22353 10/31/2019 ([id number]) NURSE/OUTPATIENT VISIT EST Diagnosis: Long-term (current) use of anticoagulants, INR goal 2.0-3.0[ICD10: Z79.01] Jeanie BLACK DO [employer] CPT-4: 58404 10/26/2019 ([id number]) OFFICE/OUTPATIENT VISIT EST Diagnosis: Long-term (current) use of anticoagulants, INR goal 2.0-3.0[ICD10: Z79.01] Diagnosis: Pain in right arm[ICD10: M79.601] Diagnosis: Radiculopathy of arm[ICD10: M54.10] Jannette BLACK DO [employer] CPT-4: 88616 10/11/2019 ([id number]) OFFICE/OUTPATIENT VISIT EST Diagnosis: Long-term (current) use of anticoagulants, INR goal 2.0-3.0[ICD10: Z79.01] Diagnosis: Sinusitis[ICD10: J32.9] Diagnosis: Pain in right arm[ICD10: M79.601] Jannette BLACK DO [employer] CPT-4: 83100 09/08/2019 ([id number]) NURSE/OUTPATIENT VISIT EST Diagnosis: Chronic atrial fibrillation[ICD10: I48.2] Diagnosis: Encounter for therapeutic drug level monitoring[ICD10: Z51.81] Jeanie Doniswilbernela BLACK DO [employer] CPT-4: 78317 07/29/2019 ([id number]) NURSE/OUTPATIENT VISIT EST Diagnosis: Chronic atrial fibrillation[ICD10: I48.2] Diagnosis: Encounter for therapeutic drug level monitoring[ICD10: Z51.81] Jeanie Doniswilbernela BLACK DO [employer] CPT-4: 28655 07/18/2019 ([id number]) NURSE/OUTPATIENT VISIT EST Diagnosis: Encounter for therapeutic drug level monitoring[ICD10: Z51.81] Diagnosis: Chronic atrial fibrillation[ICD10: I48.2] Diagnosis: Essential (primary) hypertension[ICD10: I10] Jeanie BLACK DO [employer] CPT-4: 27118 07/06/2019 ([id number]) OFFICE/OUTPATIENT VISIT EST Diagnosis: Encounter for therapeutic drug level monitoring[ICD10: Z51.81] Diagnosis: Anemia, unspecified[ICD10: D64.9] Diagnosis: Bitten by dog, sequela[ICD10: W54.0XXS] 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] Jeanie BLACK DO [employer] CPT-4: 16699 06/14/2019 ([id number]) OFFICE/OUTPATIENT VISIT EST Diagnosis: Bitten by dog, sequela[ICD10: W54.0XXS] Diagnosis: Other fatigue[ICD10: R53.83] Diagnosis: Hypothyroidism, unspecified[ICD10: E03.9] Diagnosis: Muscle weakness (generalized)[ICD10: M62.81] Diagnosis: Generalized anxiety disorder[ICD10: F41.1] Jannette BLACK [employer]irin CPT-4: 66560 05/13/2019 ([id number]) NURSE/OUTPATIENT VISIT EST Diagnosis: Encounter for therapeutic drug level monitoring[ICD10: Z51.81] Jeanie BLACK DO [employer] CPT-4: 68453 05/06/2019 ([id number]) OFFICE/OUTPATIENT VISIT EST Diagnosis: Bitten by dog, sequela[ICD10: W54.0XXS] Diagnosis: Pain in right wrist[ICD10: M25.531] Diagnosis: Abrasion of right upper arm, sequela[ICD10: S40.811S] Diagnosis: Abrasion of left upper arm, sequela[ICD10: S40.812S] Jannette BLACK DO [employer] CPT-4: 73670 05/02/2019 ([id number]) NURSE/OUTPATIENT VISIT EST Diagnosis: Encounter for therapeutic drug level monitoring[ICD10: Z51.81] Jeanie BLACK DO [employer] CPT-4: 82658 04/07/2019 ([id number]) OFFICE/OUTPATIENT VISIT NEW Diagnosis: Encounter for therapeutic drug level monitoring[ICD10: Z51.81] Diagnosis: Chronic atrial fibrillation[ICD10: I48.2] Diagnosis: Essential (primary) hypertension[ICD10: I10] Diagnosis: Abnormal findings on diagnostic imaging of heart and coronary circulation[ICD10: R93.1] Diagnosis: Other forms of dyspnea[ICD10: R06.09] Diagnosis: Hypothyroidism, unspecified[ICD10: E03.9] Diagnosis: Mixed hyperlipidemia[ICD10: E78.2] Jeanie BLACK DO [facility] CPT-4: 62892 03/08/2019 Plan of Care Planned Activity Notes Codes Status Date Appointment: Jeanie Black WPtel: [address] [facility] US LAB 07/19/2021 Appointment: Jeanie Black WPtel: [address] [facility] LAB 06/20/2021 Visit Diagnosis Plan: Severe obesity (BMI 35.0-39.9) w ith comorbidity Discussion: Discussed diet and exercise ICD-9 : 278.01 ICD-10 : E66.01 05/16/2021 Visit Diagnosis Plan: Obstructive sleep apnea syndrome Discussion: Per ciar note- order for bipap sent to [facility]- will call them to check, patient states [...] : V58.61 ICD-10 : Z79.01 05/16/2021 Appointment: JayaRemedios duarte WPtel: [address] [address] US MEDICATION REVIEW 05/16/2021 Patient Education: Patient Medication Summary Completed 05/16/2021 Patient Education: isosorbide mononitrate- [employer] [id number] https://www.WhoKnows/NowSpots/resources/getResource/61/b7f0v9s4-h788-680e-p0 Completed 05/16/2021 Patient Education: High Blood Pressure Co mpleted 05/16/2021 Appointment: Jeanie Black WPtel: [address] [place] [address] US LAB 04/11/2021 Appointment: Jeanie Black WPtel: [address] [place] [address] US CANCELED 03/27/2021 Appointment: Jeanie Black WPtel: [address] [place] [address] US LAB 03/15/2021 Visit Diagnosis Plan: Pulmonary [...] : I10 03/05/2021 Appointment: Jeanie Black WPtel: [address] [place] [address] US FOLLOW UP 03/05/2021 Patient Education: spironolactone- [employer] Coupon 1 [id number] https://www.sampleNormal.com/samplemd/resources/getResource/61/2yo62cp3-9f3m-3u97-9c Completed 03/05/2021 Appointment: Jeanie Black WPtel: [id number] US LAB 02/22/2021 Visit Diagnosis Plan: Cheilitis [...] : E78.2 02/19/2021 Appointment: Remedios Cavazos WPtel: [address] MEDICATION REVIEW 02/19/2021 Patient Education: Patient [...] ICD-10 : K13.0 01/16/2021 Appointment: Jannette Mayen [address] [place] [address] ACUTE ILLNESS 01/16/2021 Appointment: Jeanie Black WPtel: [address] [address] US BP CHECK 11/19/2020 Visit Diagnosis Plan: [...] ICD-10 : I95.9 11/12/2020 Appointment: Jannette Mayen [address] [place] [address] ACUTE ILLNESS 11/12/2020 Visit Diagnosis Plan: Thoracic back pain Discussion: w ill send order for PT through [facility]. call office with any new or worsening [...] : R42 10/12/2020 [facility] [facility] 10/12/2020 Visit Diagnosis Plan: Chronic atrial fibrillation Disc ussion: Following routinely with cardiology ICD-9 : 427.31 ICD-10 : I48.20 09/26/2020 Visit Diagnosis Plan: Essential (primary) hypertension Discussion: Stable ICD-9 : 401.9 ICD-10 : I10 09/26/2020 Visit Diagnosis Plan: Encounter for [facility] [...] : I50.32 09/26/2020 Appointment: Jeanie Black WPtel: [facility] [facility] Well Visit 09/26/2020 Care Plan: Referral Order SNOMED-CT : 30 [id number] Pending 09/26/2020 Visit Diagnosis Plan: Chronic airway [...] : I48.20 08/27/2020 Appointment: Jeanie Black WPtel: [address] [place], [place] [id number] US FOLLOW UP 08/27/2020 Visit Diagnosis Plan: [...] : I10 05/23/2020 Appointment: Jeanie Black WPtel: [address] [place], [place] [id number] US FOLLOW UP 05/23/2020 Appointment: Jeanie Black WPtel: [address] [place], [place] [phone] NURSE SERVICES 05/02/2020 Visit Diagnosis Plan: Chronic [...] : J44.9 03/20/2020 Appointment: Jeanie Black WPtel: [address] [place], [place] [id number] TELEMEDICINE 03/20/2020 Patient Education: Coumadin- [employer] Coupon [id number] https://www.WhoKnows/NowSpots/resources/getResource/61/3f777p61-78h8-0mzs-4s Completed 03/20/2020 Patient Education: Coumadin- [employer] Coupon [id number] https://www.WhoKnows/NowSpots/resources/getResource/61/7ju92a4c-8q8j-6mk9-vg Completed 03/20/2020 Appointment: Jeanie Black WPtel: [address] [place], [place] [phone] US LAB 01/20/2020 Visit Diagnosis Plan: History of recent fall Discussio n: Healing well Doing balance class at [facility] Follow Up: 3 months ICD-9 : V15.88 ICD-10 : Z91.81 12/15/2019 Visit Diagnosis Plan: COPD (chronic obstructive pulmon valeria disease) Discussion: Continue pulmonary rehab ICD-9 : 496 ICD-10 : J44.9 12/15/2019 Visit Diagnosis Plan: Long-term (current ) use of anticoagulants, INR goal 2.0-3.0 Discussion: PT/INR drawn ICD-9 : V58.61 ICD-10 : Z79.01 12/15/2019 Appointment: Jeanie Black WPtel: [address] [place], [place] [phone] US FOLLOW UP 12/15/2019 Patient Education: Coumadin- [employer]on [id number] https://www.WhoKnows/NowSpots/resources/getResource/61/t639biok-lw31-4shq-6h Completed 12/15/2019 Appointment: Jeanie Black WPtel: [address] [place], [place] [phone] US LAB 11/10/2019 Visit Diagnosis Plan: Post [...] : J44.9 11/03/2019 Appointment: Jeanie Black WPtel: [facility] [place] [address] FOLLOW UP 11/03/2019 Care Plan: CT HEAD/BRAIN W/O DYE [facility] : [address]-3 Pending 11/01/2019 Visit Diagnosis Plan: Essential (primary) [...] : S05.12XA 10/31/2019 Appointment: Jannette Mayen [address] [place] [address] Follow Up 10/31/2019 Patient Education: High Blood Pressure Co mpleted 10/31/2019 Patient Education: losartan- [employer] Coupon [id number] 5 https://www.NowSpots.com/samplemd/resources/getResource/61/2s353384-7s98-3887-0p Completed 10/31/2019 Appointment: Jeanie Black WPtel: [address] [facility] US FOLLOW UP 10/26/2019 Visit Diagnosis Plan: Long-term (current ) use of anticoagulants, INR goal 2.0-3.0 Discussion: will update pt/inr ICD-9 : V58.61 ICD-10 : Z79.01 10/11/2019 Visit Diagnosis Plan: Radiculopathy of arm Discussion: flexeril prescribed to take as needed. will start at low dose but instructed patient to call office if not effective and will increase mg dose. PT ordered at [facility] to assist with pain. if no improvement or worsening from PT, will need imaging. ICD-9 : 723.4 ICD-10 : M54.10 10/11/2019 Appointment: Jannette Mayen [address] [place], [place] [address] ACUTE ILLNESS 10/11/2019 Patient Education: cyclobenzaprine- [employer] Coupon [id number] https://www.NowSpots.com/samplemd/resources/getResource/61/77c1w9d3-84m4-9l17-46 Completed 10/11/2019 Visit Diagnosis Plan: Bitten by dog, sequela Discussio n: Still seeing counselor Still doing therapy--left 4th finger still not agile enough to play violin and feels like pinched nerve in neck on right--dscussed stretches, massage, accupuncture---patient had hired workers compensation attorney ICD-9 : 906.1 ICD-10 : W54.0XXS [...] 09/20/2019 Appointment: Jeanie Black WPtel[facility] [address] [facility] Annual Well Visit 09/20/2019 Visit Diagnosis Plan: [...] ICD-10 : Z79.01 09/08/2019 Appointment: Jannette Mayen [address] [place] [address] ACUTE ILLNESS 09/08/2019 Appointment: Jeanie Black WPtel: [address] [place] [address] US CANCELED 08/16/2019 Appointment: Jeanie Black WPtel: [address] [place] [address] US LAB 07/29/2019 Appointment: Jeanie Black WPtel: [address] [place] [address] US LAB 07/18/2019 Appointment: Jeanie Black WPtel: [address] [place] [address] US LAB 07/06/2019 Visit Diagnosis Plan: Bitten [...] D64.9 06/14/2019 Appointment: Jean[facility] Black [facility]Ptel[facility] [facility] [facility] FOLLOW UP 06/14/2019 Visit Diagnosis Plan: [...] ICD-10 : R53.83 05/13/2019 Appointment: Jannette Mayen [address] [place], [place] [address] US FOLLOW UP 05/13/2019 Patient Education: carvedilol- [employer] Coupon [id number] https://www.sampleNormal.com/samplemd/resources/getResource/61/40j7v566-9ezx-5479-5v Completed 05/13/2019 Patient Education: Xanax- [employer] Coupon [id number] https://www.NowSpots.com/samplemd/resources/getResource/61/6853r4o4-8n09-1l1t-e3 1e-4r11381823n6.pdf Completed 05/13/2019 Appointment: Jeanie Black WPtel: [address] [place] [address] US LAB 05/06/2019 Visit Diagnosis Plan: Abrasion [...] ICD-10 : M25.531 05/02/2019 Appointment: Jannette Mayen [address] [place] [address] ACUTE ILLNESS 05/02/2019 Care Plan: X-RAY EXAM OF WRIST right LOINC : 3 7302-7 Pending 05/02/2019 Appointment: Jeanie Black WPtel: [address] [place], [place] [address] US LAB 04/07/2019 Appointment: Jeanie Black WPtel: [address] [place] [address] US BP CHECK 03/22/2019 Visit Diagnosis Plan: [...] : I10 03/08/2019 Appointment: Jeanie Black WPtel: [address] [place] [address] NEW PATIENT 03/08/2019 Referral: Shona Viera WPtel: [facility] [address] Referral Appointment Requested Instructions No Instructions Medical Equipment No Medical Equipment data Health Concerns Section Health Concerns data not found Goals Section Goals data not found Interventions Section Interventions data not found Health Status Evaluations/Outcomes Section Health Status Evaluations/Outcomes data not found Advance Directives No Advance Directive data
--- OUTSIDE RECORDS SUMMARY | 2021-09-19 12:42 | XMS REPORT | CCD ---
Author Author Tricia Black D.O. Organization [facility] Address [address] [place] [address] Phone Care Team Providers Care Egg Trayer Name Role Phone PP Unavailable CCM Unavailable Summary Purpose Interface Exchange Insurance Providers Payer name Policy type / Coverage type Covered alliance party ID Effective Begin Date Effective End Date WPS MEDICARE PART B [place] Medicare Part B [id number] Unknown Unknown AARP Medicare Part B [id number] Unknown Unknown Family history Grandmother Diagnosis Age [...] Unknown Retired 03/08/[address]: 350548709 Has never smoked or chewed tobacco 03/08/[address]: 602703 Currently drinks alcohol 03/08 Has the patient [...] Start Date Stop Date Status Fill Instructions levothyroxine 50 mcg tablet RxNorm: 374066 TAKE 1 TABLE T BY MOUTH EVERY DAY. RECHECK LABS IN 2 MONTHS 08/04/2021 10/02/2021 Active potassium chloride ER 10 mEq tablet,extended release RxNorm: 457725 TAKE 1 TABLET BY MOUTH EVERY DAY 07/14/2021 10/11/2021 Active spironolactone 25 mg tablet RxNorm: 075030 1/2 Tablet(s) Oral QD No Stop Date Active isosorbide mononitrate ER 30 mg tablet,extended release 24 h r RxNorm: 832170 TABLET(S) 1 TABLET(S) PO NEEDED Tablet(s) Oral 05/16/2021 11/11/2021 Active Patient requests 90 days supply isosorbide mononitrate 10 mg tablet RxNorm: 429454 Take 1 Tablet(s) Oral two times a day 05/16/2021 05/16/2021 Inactive furosemide 40 mg tablet RxNorm: 146172 TAKE 1 TABLET BY MOUTH E VERY MORNING 05/07/2021 08/04/2021 Inactive isosorbide mononitrate 10 mg tablet RxNorm: 028176 Take 1 Tablet(s) Oral two times a day 04/26/2021 05/15/2021 Inactive isosorbide mononitrate 10 mg tablet RxNorm: 859541 Take 1 Tablet(s) Oral two times a day 04/25/2021 04/25/2021 Inactive potassium chloride ER 10 mEq tablet,extended release RxNorm: 418761 TAKE 1 TABLET BY MOUTH EVERY DAY 04/19/2021 04/19/2021 Inactive Coumadin 4 mg tablet RxNorm: 032625 1 Tablet(s) Oral Thursday04/11/2021 07/10/2021 Inactive Coumadin 2 mg tablet RxNorm: 215385 1 Tablet(s) Oral on Thursday and Thursday04/11/2021 07/10/2021 Inactive carvedilol 25 mg tablet RxNorm: 677497 1 Tablet(s) Oral two antolin es a day 04/03/2021 09/29/2021 Active Coumadin 2 mg tablet RxNorm: 553287 TAKE 1 TABLET BY MO [facility] ON THURSDAY AND Thursday03/26/2021 04/10/2021 Inactive Coumadin 4 mg tablet RxNorm: 035197 1 Tablet(s) Oral QD 02/26/2021 Inactive levothyroxine 50 mcg tablet RxNorm: 958822 1 Tablet(s) Oral QD Recheck labs in 2 months 02/26/2021 02/26/2021 Inactive Recheck labs in 2 months levothyroxine 50 mcg tablet RxNorm: 135726 1 Tablet(s) Oral QD Recheck labs in 2 months 02/26/2021 02/25/2021 Inactive Recheck labs in 2 months losartan 100 mg tablet RxNorm: 901538 TAKE 1 TABLET BY MOUTH 02/22/2021 08/20/2021 Active spironolactone 25 mg tablet RxNorm: 675504 1 Tablet(s) Oral QD 01/2303/04/2021 Inactive isosorbide mononitrate 10 mg tablet RxNorm: 368823 1 Ta blet(s) Oral two times a day 02/19/2021 02/25/2021 Inactive famotidine 20 mg tablet RxNorm: 111268 1 Tablet(s) Oral QD 02/20/2003/04/2021 Inactive levothyroxine 25 mcg tablet RxNorm: 390304 1 Tablet(s) Oral QD 07/202102/25/2021 Inactive atorvastatin 40 mg tablet RxNorm: 912914 1 Tablet(s) Or al QPM replaces pravastatin 01/29/2021 07/27/2021 Inactive furosemide 40 mg tablet RxNorm: 435124 TAKE 1 TABLET BY MOUTH E VERY MORNING 01/28/2021 01/28/2021 Inactive prednisone 10 mg tablet RxNorm: 202367 1 Tablet(s) Oral two antolin es a day 01/16/2021 01/19/2021 Inactive atorvastatin 40 mg tablet RxNorm: 433266 1 Tablet(s) Or al QPM replaces pravastatin 12/31/2020 01/28/2021 Inactive carvedilol 25 mg tablet RxNorm: 212974 TAKE 1 TABLET BY MOUTH T WICE DAILY 12/31/2020 04/02/2021 Inactive potassium chloride ER 10 mEq tablet,extended release RxNorm: 424569 TAKE 1 TABLET BY MOUTH EVERY DAY 12/31/2020 12/31/2020 Inactive losartan 100 mg tablet RxNorm: 405303 1 Tablet(s) Oral QD 12/03/2020 02/21/2021 Inactive Coumadin 4 mg tablet RxNorm: 919031 TAKE 1 TABLET BY MO [facility] THURSDAY THROUGH Thursday11/30/2020 02/25/2021 Inactive levothyroxine 25 mcg tablet RxNorm: 109165 1 Tablet(s) Oral QD 10/2401/28/2021 Inactive famotidine 20 mg tablet RxNorm: 677745 1 Tablet(s) Oral QD 11/19/20 20 01/15/2021 Inactive famotidine 20 mg tablet RxNorm: 597953 1 Tablet(s) Oral QD 11/19/20 20 11/18/2020 Inactive levothyroxine 50 mcg tablet RxNorm: 939968 TAKE 1 TABLET BY [facility] EVERY DAY 11/06/2020 01/29/2021 Inactive furosemide 40 mg tablet RxNorm: 512557 TAKE 1 TABLET BY MOUTH E VERY MORNING 11/05/2020 01/27/2021 Inactive atorvastatin 40 mg tablet RxNorm: 411924 1 Tablet(s) Or al QPM replaces pravastatin 10/22/2020 12/30/2020 Inactive atorvastatin 40 mg tablet RxNorm: 503347 1 Tablet(s) Or al QPM replaces pravastatin 10/22/2020 10/21/2020 Inactive spironolactone 25 mg tablet RxNorm: 093579 1 Tablet(s) Oral QAM 01/15/2021 Inactive carvedilol 25 mg tablet RxNorm: 926412 TAKE 1 TABLET BY MOUTH T WICE DAILY 10/04/2020 12/30/2020 Inactive pravastatin 40 mg tablet RxNorm: 756703 TAKE 1 TABLET BY MOUTH EVERY DAY 10/04/2020 12/31/2020 Inactive potassium chloride ER 10 mEq tablet,extended release RxNorm: 442167 TAKE 1 TABLET BY MOUTH EVERY DAY 10/04/2020 12/30/2020 Inactive isosorbide mononitrate ER 30 mg tablet,extended release 24 h r RxNorm: 284055 TABLET(S) 1 TABLET(S) PO NEEDED Oral 10/04/2020 02/18/2021 Inactive Patient requests 90 days supply furosemide 40 mg tablet RxNorm: 110560 TAKE 1 TABLET BY MOUTH E VERY MORNING 10/01/2020 11/04/2020 Inactive losartan 100 mg tablet RxNorm: 465644 TAKE 1 TABLET BY MOUTH EV RANDI 09/19/2020 12/02/2020 Inactive amlodipine 5 mg tablet RxNorm: 858075 1 Tablet(s) Oral QD 08/27/2020 11/11/2020 Inactive spironolactone 25 mg tablet RxNorm: 670046 1 Tablet(s) Oral QAM 03/202010/21/2020 Inactive levothyroxine 50 mcg tablet RxNorm: 789832 TAKE 1 TABLET BY ENE TH EVERY DAY 08/07/2020 11/04/2020 Inactive levothyroxine 50 mcg tablet RxNorm: 330384 TAKE 1 TABLET BY ENE TH EVERY DAY 08/06/2020 08/06/2020 Inactive amoxicillin 500 mg capsule RxNorm: 039858 4 Capsule(s) Oral QD 1hr prior to dental cleaning 07/31/2020 07/30/2020 Inactive amoxicillin 500 mg capsule RxNorm: 387298 4 Capsule(s) Oral QD 1hr prior to dental cleaning 07/31/2020 07/31/2020 Inactive potassium chloride ER 10 mEq tablet,extended release RxNorm: 849304 TAKE 1 TABLET BY MOUTH EVERY DAY 07/23/2020 10/03/2020 Inactive pravastatin 40 mg tablet RxNorm: 761582 TAKE 1 TABLET BY MOUTH EVERY DAY 07/23/2020 10/03/2020 Inactive carvedilol 25 mg tablet RxNorm: 313760 TAKE 1 TABLET BY MOUTH T WICE DAILY 07/23/2020 10/03/2020 Inactive losartan 100 mg tablet RxNorm: 671446 TAKE 1 TABLET BY MOUTH EV 06/27/2020 09/18/2020 Inactive furosemide 40 mg tablet RxNorm: 340645 TAKE 1 TABLET BY MOUTH E VERY MORNING 06/08/2020 09/30/2020 Inactive Coumadin 4 mg tablet RxNorm: 741632 1 Tablet(s) Oral Thursday thr thursday06/07/2020 11/29/2020 Inactive Coumadin 2 mg tablet RxNorm: 128607 1 Tablet(s) Oral on and Thursday03/20/2020 03/19/2020 Inactive Coumadin 4 mg tablet RxNorm: 101516 1 Tablet(s) Oral Thursday03/20/2020 06/06/2020 Inactive losartan 100 mg tablet RxNorm: 442130 TAKE 1 TABLET BY MOUTH EV RANDI DAY 03/20/2020 06/26/2020 Inactive Coumadin 2 mg tablet RxNorm: 050992 1 Tablet(s) Oral on and Thursday03/20/2020 02/25/2021 Inactive furosemide 40 mg tablet RxNorm: 860343 1 Tablet(s) Oral QAM 020 06/07/2020 Inactive pravastatin 40 mg tablet RxNorm: 454804 TAKE 1 TABLET BY MOUTH EVERY DAY 02/07/2020 07/22/2020 Inactive losartan 100 mg tablet RxNorm: 552544 TAKE 1 TABLET BY MOUTH EV RANDI02/01/2020 03/19/2020 Inactive losartan 100 mg tablet RxNorm: 510399 TAKE 1 TABLET BY MOUTH RANDI01/17/2020 01/31/2020 Inactive Coumadin 2 mg tablet RxNorm: 864641 1 Tablet(s) Oral on and Thursday12/15/2019 12/15/2019 Inactive furosemide 40 mg tablet RxNorm: 809732 TAKE 1 TABLET BY MOUTH E VERY MORNING 12/14/2019 03/12/2020 Inactive pravastatin 40 mg tablet RxNorm: 166742 TAKE 1 TABLET BY MOUTH EVERY DAY 11/27/2019 02/06/2020 Inactive losartan 100 mg tablet RxNorm: 842656 1 Tablet(s) Oral QD 11/10/2019 01/16/2020 Inactive isosorbide mononitrate ER 30 mg tablet,extended release 24 h r RxNorm: 747072 TABLET(S) 1 TABLET(S) PO NEEDED 11/10/2019 05/08/2020 Inactive Patient requests 90 days supply carvedilol 25 mg tablet RxNorm: 409042 1 Tablet(s) Oral two antolin es a day 11/10/2019 05/08/2020 Inactive Coumadin 2 mg tablet RxNorm: 712397 1 Tablet(s) Oral on and Thursday11/10/2019 12/14/2019 Inactive losartan 100 mg tablet RxNorm: 025569 1 Tablet(s) Oral QD 11/10/2019 11/09/2019 Inactive levothyroxine 50 mcg tablet RxNorm: 769144 1 Tablet(s) Oral QD 10/2310/21/2020 Inactive Coumadin 4 mg tablet RxNorm: 425706 1 Tablet(s) Oral Thursday thr thursday11/10/2019 11/10/2019 Inactive losartan 50 mg tablet RxNorm: 659787 2 Tablet(s) Oral QD 11/01/201901/10/2019 Inactive potassium chloride ER 10 mEq capsule,extended release RxNorm : 562698 1 Capsule(s) Oral QD 10/26/2019 12/14/2019 Inactive potassium chloride ER 10 mEq tablet,extended release RxNorm: 781211 1 TABLET(S) ORAL QD 10/22/2019 04/18/2020 Inactive Replaces PA on 1 0MEQ Capsules Aspir-81 mg tablet,delayed release RxNorm: 823829 1 Tablet(s) O ral QD 10/11/2019 No Stop Date Active cyclobenzaprine 5 mg tablet RxNorm: 481378 1 Tablet(s) Oral two times a day as needed for muscle spasm 10/11/2019 03/19/2020 Inactive Coumadin 4 mg tablet RxNorm: 078077 1 Tablet(s) Oral Mo through Thursday and 1/2 tablet (2mg) on Sat/Sun 10/11/2019 11/09/2019 Inactive potassium chloride ER 10 mEq tablet,extended release RxNorm: 597940 1 Tablet(s) Oral QD 09/22/2019 09/21/2019 Inactive Replaces PA on 1 0MEQ Capsules potassium chloride ER 10 mEq tablet,extended release RxNorm: 413228 1 Tablet(s) Oral QD 09/22/2019 10/10/2019 Inactive Replaces PA on 1 0MEQ Capsules potassium chloride ER 10 mEq capsule,extended release RxNorm : 734817 1 Capsule(s) Oral QD 09/21/2019 09/21/2019 Inactive carvedilol 25 mg tablet RxNorm: 250668 1 Tablet(s) Oral two antolin es a day 08/23/2019 11/09/2019 Inactive isosorbide mononitrate ER 30 mg tablet,extended release 24 h r RxNorm: 810620 TABLET(S) 1 TABLET(S) PO NEEDED 08/22/2019 10/04/2020 Inactive Patient requests 90 days supply isosorbide mononitrate ER 30 mg tablet,extended release 24 h r RxNorm: 192583 Tablet(s) 1 TABLET(S) PO NEEDED 08/16/2019 08/21/2019 Inactive Patient requests 90 days supply levothyroxine 50 mcg tablet RxNorm: 660343 1 Tablet(s) PO QD 201811/09/2019 Inactive isosorbide mononitrate ER 30 mg tablet,extended release 24 h r RxNorm: 367119 Tablet(s) 1 TABLET(S) PO NEEDED 06/27/2019 08/15/2019 Inactive Patient requests 90 days supply isosorbide mononitrate ER 30 mg tablet,extended release 24 h r RxNorm: 862181 1 Tablet(s) PO QD as needed 06/27/2019 06/27/2019 Inactive Neris ent requests 90 days supply carvedilol 25 mg tablet RxNorm: 309338 1 TABLET(S) PO BID 06/27/2019 08/22/2019 Inactive furosemide 40 mg tablet RxNorm: 195806 1 Tablet(s) PO QAM 06/21/2019 12/13/2019 Inactive carvedilol 25 mg tablet RxNorm: 297931 1 Tablet(s) PO BID 05/13/2019 06/26/2019 Inactive Xanax 0.25 mg tablet RxNorm: 005176 1/2 Tablet(s) PO Q6H as needed 05/13/2019 09/07/2019 Inactive levothyroxine 50 mcg tablet RxNorm: 892688 1 Tablet(s) PO QD 201808/07/2019 Inactive losartan 50 mg tablet RxNorm: 873602 1 Tablet(s) PO QD 04/26/2019 Inactive losartan 50 mg tablet RxNorm: 033269 1 Tablet(s) PO QD 04/20/201901/2019 Inactive pravastatin 40 mg tablet RxNorm: 813742 1 Tablet(s) PO QD 04/07/2019 06/05/2019 Inactive isosorbide mononitrate ER 30 mg tablet,extended release 24 h r RxNorm: 564346 1 Tablet(s) PO as needed 04/07/2019 04/06/2019 Inactive isosorbide mononitrate ER 30 mg tablet,extended release 24 h r RxNorm: 239180 1 TABLET(S) PO NEEDED 04/07/2019 06/26/2019 Inactive Patient requests 90 days supply losartan 50 mg tablet RxNorm: 253184 1 Tablet(s) PO QD 03/22/2019 Inactive Prolia subcutaneous RxNorm: 518536 subcutaneous 02/19/2021 A ctive carvedilol 25 mg tablet RxNorm: 497600 1 Tablet(s) PO BID 05/13/2019 05/12/2019 Inactive losartan 50 mg tablet RxNorm: 336318 1 Tablet(s) PO QD 03/22/2019 Inactive Ventolin HFA 90 mcg/actuation aerosol inhaler RxNorm: 619386 1-2 Puff(s) INH as needed 09/08/2019 09/07/2019 Inactive furosemide 40 mg tablet RxNorm: 603688 1 Tablet(s) PO QAM 06/21/2019 06/20/2019 Inactive pravastatin 40 mg tablet RxNorm: 456385 1 Tablet(s) PO QD 04/07/2019 04/06/2019 Inactive Coumadin 2 mg tablet RxNorm: 909521 1 Tablet(s) PO Mon, Fri, Sat and Sun then 2 tablets (4mg) on Tu, Thu and 10/11/2019 10/10/2019 Inactive isosorbide mononitrate ER 30 mg tablet,extended release 24 h r RxNorm: 800619 Tablet(s) PO as needed 04/07/2019 04/06/2019 Inactive Women's Multivitamin 18 mg iron-400 mcg-500 mg tablet RxNorm : 1 Tablet(s) PO QD 09/08/2019 09/07/2019 Inactive Vitamin D3 1000 units Capsule RxNorm: 3 Capsule(s) PO QD 9 09/07/2019 Inactive vitamin B complex capsule RxNorm: 1 Capsule(s) PO QD 09/08/2019 Inactive potassium chloride ER 10 mEq capsule,extended release RxNorm : 052602 1 Capsule(s) PO QD 09/21/2019 09/20/2019 Inactive levothyroxine 50 mcg tablet RxNorm: 686330 1 Tablet(s) PO QD 201804/25/2019 Inactive Medication Administered No Medication Administered data Immunizations Vaccine Codes Date Status Influenza CVX: 135 07/06/2020 Pneumovax CVX: 33 02/03/2020 Influenza CVX: 135 07/02/2019 Results Observation Observation Code Item Item Code Result Date S ervice Location PT 3399775 PT 28.3 Seconds 07/19/2021 Unknow n PT [id number] INR 2.6 07/19/2021 Unknown COMPREHENSIVE METABOLIC 56457 AST 20 U/L 2020 Unknown COMPREHENSIVE METABOLIC 31521 ALT 16 U/L 2020 Unknown COMPREHENSIVE METABOLIC 43135 BUN 35 mg/dL 2020 Unknown COMPREHENSIVE METABOLIC 40363 ALBUMIN 4.1 g/dL 2020 Unknown COMPREHENSIVE METABOLIC 36673 CHLORIDE 105 mmol/L 06/20 Unknown COMPREHENSIVE METABOLIC 85213 Bili Total 1.1 mg/dL 06/20 Unknown COMPREHENSIVE METABOLIC 72831 ALK PHOS 103 U/L 2020 Unknown COMPREHENSIVE METABOLIC 86978 SODIUM 139 mmol/L 06/20 Unknown COMPREHENSIVE METABOLIC 84165 CREATININE 0.99 mg/dL 05/24 Unknown COMPREHENSIVE METABOLIC 64504 CALCIUM 8.8 mg/dL 2020 Unknown COMPREHENSIVE METABOLIC 32633 POTASSIUM 4.7 mmol/L 06/20 Unknown COMPREHENSIVE METABOLIC 96120 Total Protein 6.2 g/dL Unknown COMPREHENSIVE METABOLIC 62354 Glucose 83 mg/dL 2020 Unknown COMPREHENSIVE METABOLIC 34792 Bicarbonate 27 mmol/L 05/24 Unknown COMPREHENSIVE METABOLIC 78321 AGAP 7 mmol/L 2020 Unknown COMPLETE BLOOD COUNT 3019392 WBC 4.5 10e9/L 06/20/20 21 Unknown COMPLETE BLOOD COUNT [id number] RBC 3.99 10e12/L 2020 Unknown COMPLETE BLOOD COUNT 9874800 HEMOGLOBIN 11.8 g/dL 06/20/20 21 Unknown COMPLETE BLOOD COUNT 8208911 HEMATOCRIT 36.6 % 06/20/20 21 Unknown COMPLETE BLOOD COUNT 7596276 MCV 91.7 fL 1 Unknown COMPLETE BLOOD COUNT 3595886 MCH 29.6 pg 1 Unknown COMPLETE BLOOD COUNT 2150202 MCHC 32.2 g/dL 1 Unknown COMPLETE BLOOD COUNT 1145979 PLATELET COUNT 180 10e9/L Unknown COMPLETE BLOOD COUNT 0545589 Mean Plt Volume 11.1 fL Unknown COMPLETE BLOOD COUNT 3715012 Neut Auto 64.7 % 1 Unknown COMPLETE BLOOD COUNT 8328907 Lymph Auto 19.6 % 06/20/20 21 Unknown COMPLETE BLOOD COUNT [id number] [place] Auto 13.5 % 1 Unknown COMPLETE BLOOD COUNT 8889147 Eos Auto 1.8 % 1 Unknown COMPLETE BLOOD COUNT 1712795 RDW 15.1 % 1 Unknown COMPLETE BLOOD COUNT 2854844 Baso Auto 0.4 % 1 Unknown COMPLETE BLOOD COUNT 9923222 Neutrophil Abs 2.91 10e9/L Unknown COMPLETE BLOOD COUNT 0258534 Lymphocyte Abs 0.88 10e9/L Unknown COMPLETE BLOOD COUNT 0005854 Monocyte Abs 0.61 10e9/L 05/24 Unknown COMPLETE BLOOD COUNT 4127459 Eosinophil Abs 0.08 10e9/L Unknown COMPLETE BLOOD COUNT [id number] RDW-SD 49.5 fL 1 Unknown COMPLETE BLOOD COUNT 5695523 Basophil Abs 0.02 10e9/L 05/24 Unknown GFR CALC 3434326 GFR Afr Amr >60 mL/min 06/20/2021 Unknow n GFR CALC 8148896 GFR Non Afr Amr 53 mL/min 06/20/2021 Unk nown PT [id number] PT 27.4 Seconds 06/20/2021 Unknow n PT [id number] INR 2.5 06/20/2021 Unknown PT [id number] PT 25.8 Seconds 05/21/2021 Unknow n PT [id number] INR 2.3 05/21/2021 Unknown FREE T4 97659 T4 Free 1.19 ng/dL 04/11/2021 Unknown PT [id number] PT 33.6 Seconds 04/11/2021 Unknow n PT [id number] INR 3.3 04/11/2021 Unknown THYROID STIMULATING HORMONE 99167 TSH 3.912 uIU/mL 04/11/2021 Unknown PT [id number] PT 33.1 Seconds 03/15/2021 Unknow n PT [id number] INR 3.2 03/15/2021 Unknown PT [id number] PT 24.6 Seconds 05/23/2020 Unknow n PT [id number] INR 2.2 05/23/2020 Unknown PT [id number] PT 31.4 Seconds 10/26/2019 Unknow n PT [id number] INR 2.9 10/26/2019 Unknown PT [id number] PT 17.6 Seconds 10/11/2019 Unknow n PT [id number] INR 1.4 10/11/2019 Unknown PT [id number] PT 23.7 Seconds 09/08/2019 Unknow n PT [id number] INR 2.0 09/08/2019 Unknown PT [id number] PT 23.2 Seconds 07/29/2019 Unknow n PT [id number] INR 2.0 07/29/2019 Unknown PT [id number] PT 14.3 Seconds 07/18/2019 Unknow n PT [id number] INR 1.1 07/18/2019 [place] [address] Glucose 75 mg/dL 07/06 [place] [address] CREATININE 0.61 mg/dL [place] [address] BUN 15 mg/dL 07/06 [place] [address] SODIUM 142 mmol/L 06/23 [place] [address] POTASSIUM 4.0 mmol/L 06/23 [place] [address] CHLORIDE 106 mmol/L 06/23 [place] [address] Bicarbonate 28 mmol/L [place] [address] AGAP 8 mmol/L 07/06 [place] [address] CALCIUM 9.3 mg/dL 07/06 Unknown PT [id number] PT 17.4 Seconds 07/06/2019 Unknow n PT [id number] INR 1.4 07/06/2019 Unknown GFR CALC 3078623 GFR Non Afr Amr >60 mL/min 07/06/2019 Un known GFR CALC [id number] GFR Afr Amr >60 mL/min 07/06/2019 Unknow n COMPLETE BLOOD COUNT 2394335 WBC 4.7 10e9/L 07/06/20 19 Unknown COMPLETE BLOOD COUNT 3564179 RBC 4.19 10e12/L 2018 Unknown COMPLETE BLOOD COUNT 3485933 HEMOGLOBIN 12.6 g/dL 07/06/20 19 Unknown COMPLETE BLOOD COUNT 9107108 HEMATOCRIT 39.4 % 07/06/20 19 Unknown COMPLETE BLOOD COUNT 3160975 MCV 94.0 fL 9 Unknown COMPLETE BLOOD COUNT 9574021 MCH 30.1 pg 9 Unknown COMPLETE BLOOD COUNT 0598342 MCHC 32.0 g/dL 9 Unknown COMPLETE BLOOD COUNT 5133402 PLATELET COUNT 160 10e9/L Unknown COMPLETE BLOOD COUNT 4809606 Mean Plt Volume 11.0 fL Unknown COMPLETE BLOOD COUNT 2395912 Neut Auto 56.6 % 9 Unknown COMPLETE BLOOD COUNT 2510127 Lymph Auto 27.0 % 07/06/20 19 Unknown COMPLETE BLOOD COUNT [id number] [place] Auto 13.7 % 9 Unknown COMPLETE BLOOD COUNT 3323861 RDW 14.6 % 9 Unknown COMPLETE BLOOD COUNT 8430442 Eos Auto 2.1 % 9 Unknown COMPLETE BLOOD COUNT 9361305 Baso Auto 0.6 % 9 Unknown COMPLETE BLOOD COUNT 1456347 Neutrophil Abs 2.66 10e9/L Unknown COMPLETE BLOOD COUNT 4888501 Lymphocyte Abs 1.27 10e9/L Unknown COMPLETE BLOOD COUNT 6393761 Monocyte Abs 0.64 10e9/L 06/23 Unknown COMPLETE BLOOD COUNT 0140895 Eosinophil Abs 0.10 10e9/L Unknown COMPLETE BLOOD COUNT 0788299 RDW-SD 48.7 fL 9 Unknown COMPLETE BLOOD COUNT 8388999 Basophil Abs 0.03 10e9/L 06/23 Unknown COMPLETE BLOOD COUNT 2120595 WBC 4.6 10e9/L 06/14/20 19 Unknown COMPLETE BLOOD COUNT 3615642 RBC 4.16 10e12/L 2018 Unknown COMPLETE BLOOD COUNT 2707663 HEMOGLOBIN 12.6 g/dL 06/14/20 19 Unknown COMPLETE BLOOD COUNT 0536110 HEMATOCRIT 39.1 % 06/14/20 19 Unknown COMPLETE BLOOD COUNT 8395493 MCV 94.0 fL 9 Unknown COMPLETE BLOOD COUNT 5104413 MCH 30.3 pg 9 Unknown COMPLETE BLOOD COUNT 9232459 MCHC 32.2 g/dL 9 Unknown COMPLETE BLOOD COUNT 7704753 PLATELET COUNT 167 10e9/L Unknown COMPLETE BLOOD COUNT 5282551 Mean Plt Volume 10.9 fL Unknown COMPLETE BLOOD COUNT 3983413 Neut Auto 59.6 % 9 Unknown COMPLETE BLOOD COUNT 9275185 Lymph Auto 24.1 % 06/14/20 19 Unknown COMPLETE BLOOD COUNT 7741997 [place] Auto 14.0 % 9 Unknown COMPLETE BLOOD COUNT 2019339 RDW 14.8 % 9 Unknown COMPLETE BLOOD COUNT 2770370 Eos Auto 1.9 % 9 Unknown COMPLETE BLOOD COUNT 1366458 Baso Auto 0.4 % 9 Unknown COMPLETE BLOOD COUNT 8283123 Neutrophil Abs 2.74 10e9/L Unknown COMPLETE BLOOD COUNT 7836071 Lymphocyte Abs 1.11 10e9/L Unknown COMPLETE BLOOD COUNT 1834357 Monocyte Abs 0.64 10e9/L 05/24 Unknown COMPLETE BLOOD COUNT 2429504 Eosinophil Abs 0.09 10e9/L Unknown COMPLETE BLOOD COUNT 4528539 RDW-SD 49.3 fL 9 Unknown COMPLETE BLOOD COUNT [id number] Basophil Abs 0.02 10e9/L 05/24 Unknown PT [id number] PT 22.3 Seconds 06/14/2019 Unknow n PT [id number] INR 1.9 06/14/2019 Unknown COMPLETE BLOOD COUNT 4766362 WBC 4.0 10e9/L 05/13/20 19 Unknown COMPLETE BLOOD COUNT 7652882 RBC 3.82 10e12/L 2018 Unknown COMPLETE BLOOD COUNT 3195265 HEMOGLOBIN 11.5 g/dL 05/13/20 19 Unknown COMPLETE BLOOD COUNT 8621426 HEMATOCRIT 36.4 % 05/13/20 19 Unknown COMPLETE BLOOD COUNT 2550332 MCV 95.3 fL 9 Unknown COMPLETE BLOOD COUNT 9694598 MCH 30.1 pg 9 Unknown COMPLETE BLOOD COUNT 6532294 MCHC 31.6 g/dL 9 Unknown COMPLETE BLOOD COUNT 0563382 PLATELET COUNT 175 10e9/L Unknown COMPLETE BLOOD COUNT 7821668 Mean Plt Volume 10.5 fL Unknown COMPLETE BLOOD COUNT 8938993 Neut Auto 63.2 % 9 Unknown COMPLETE BLOOD COUNT 7795590 Lymph Auto 22.0 % 05/13/20 19 Unknown COMPLETE BLOOD COUNT 8836523 [place] Auto 12.1 % 9 Unknown COMPLETE BLOOD COUNT 9243471 RDW 14.9 % 9 Unknown COMPLETE BLOOD COUNT 7334359 Eos Auto 2.2 % 9 Unknown COMPLETE BLOOD COUNT 7367861 Baso Auto 0.5 % 9 Unknown COMPLETE BLOOD COUNT 7458014 Neutrophil Abs 2.53 10e9/L Unknown COMPLETE BLOOD COUNT 3917341 Lymphocyte Abs 0.88 10e9/L Unknown COMPLETE BLOOD COUNT 6899946 Monocyte Abs 0.48 10e9/L 04/24 Unknown COMPLETE BLOOD COUNT 1595316 Eosinophil Abs 0.09 10e9/L Unknown COMPLETE BLOOD COUNT 4250683 RDW-SD 49.6 fL 9 Unknown COMPLETE BLOOD COUNT 4355299 Basophil Abs 0.02 10e9/L 04/24 Unknown COMPREHENSIVE METABOLIC 23794 AST 18 U/L 2018 Unknown COMPREHENSIVE METABOLIC 71844 ALT 14 U/L 2018 Unknown COMPREHENSIVE METABOLIC 70546 BUN 15 mg/dL 2018 Unknown COMPREHENSIVE METABOLIC 23144 ALBUMIN 4.0 g/dL 2018 Unknown COMPREHENSIVE METABOLIC 67122 CHLORIDE 108 mmol/L 05/13 Unknown COMPREHENSIVE METABOLIC 34156 Bili Total 0.9 mg/dL 05/13 Unknown COMPREHENSIVE METABOLIC 54383 ALK PHOS 84 U/L 2018 Unknown COMPREHENSIVE METABOLIC 74188 SODIUM 142 mmol/L 05/13 Unknown COMPREHENSIVE METABOLIC 92010 CREATININE 0.72 mg/dL 04/24 Unknown COMPREHENSIVE METABOLIC 89981 CALCIUM 8.9 mg/dL 2018 Unknown COMPREHENSIVE METABOLIC 11926 POTASSIUM 4.0 mmol/L 05/13 Unknown COMPREHENSIVE METABOLIC 80247 Total Protein 5.5 g/dL Unknown COMPREHENSIVE METABOLIC 24002 Glucose 95 mg/dL 2018 Unknown COMPREHENSIVE METABOLIC 44403 Bicarbonate 27 mmol/L 04/24 Unknown COMPREHENSIVE METABOLIC 36197 AGAP 7 mmol/L 2018 Unknown GFR CALC 9310384 GFR Non Afr Amr >60 mL/min 05/13/2019 Un known GFR CALC 8926566 GFR Afr Amr >60 mL/min 05/13/2019 Unknow n THYROID STIMULATING HORMONE 92622 TSH 2.669 uIU/mL 05/13/2019 Unknown FREE T4 56511 T4 Free 1.19 ng/dL 05/13/2019 Unknown PT [id number] PT 24.2 Seconds 05/06/2019 Unknow n PT [id number] INR 2.1 05/06/2019 Unknown PT [id number] PT 24.1 Seconds 03/08/2019 Unknow n PT [id number] INR 2.9 03/08/2019 Unknown Procedures Procedure Codes Date ROUTINE VENIPUNCTURE CPT-4: 02094 07/19/2021 PROTHROMBIN TIME CPT-4: 95355 07/19/2021 ROUTINE VENIPUNCTURE CPT-4: 14276 06/20/2021 COMPREHEN METABOLIC PANEL CPT-4: 04747 06/20/2021 COMPLETE CBC W/AUTO DIFF WBC CPT-4: 97267 06/20/2021 PROTHROMBIN TIME CPT-4: 71729 06/20/2021 PT CPT-4: 5472433 05/16/2021 ROUTINE VENIPUNCTURE CPT-4: 23333 05/16/2021 ROUTINE VENIPUNCTURE CPT-4: 58119 04/11/2021 PROTHROMBIN TIME CPT-4: 32360 04/11/2021 ASSAY OF FREE THYROXINE CPT-4: 73004 04/11/2021 ASSAY THYROID STIM HORMONE CPT-4: 43828 04/11/2021 ROUTINE VENIPUNCTURE CPT-4: 61539 03/15/2021 PT CPT-4: 7911854 03/15/2021 ROUTINE VENIPUNCTURE CPT-4: 71162 02/22/2021 COMPREHEN METABOLIC PANEL CPT-4: 40321 02/22/2021 ASSAY OF FREE THYROXINE CPT-4: 77926 02/22/2021 ASSAY THYROID STIM HORMONE CPT-4: 47461 02/22/2021 COMPLETE CBC W/AUTO DIFF WBC CPT-4: 19595 02/22/2021 PROTHROMBIN TIME CPT-4: 15508 02/22/2021 LIPID PANEL CPT-4: 73518 02/22/2021 PPPS, subseq visit CPT-4: G0439 09/26/2020 ROUTINE VENIPUNCTURE CPT-4: 57646 05/23/2020 PROTHROMBIN TIME CPT-4: 76527 05/23/2020 ROUTINE VENIPUNCTURE CPT-4: 28727 01/20/2020 PT CPT-4: 3195173 01/20/2020 ROUTINE VENIPUNCTURE CPT-4: 33756 12/15/2019 PROTHROMBIN TIME CPT-4: 57849 12/15/2019 ROUTINE VENIPUNCTURE CPT-4: 81125 11/10/2019 PROTHROMBIN TIME CPT-4: 57965 11/10/2019 PROTHROMBIN TIME CPT-4: 87227 10/26/2019 ROUTINE VENIPUNCTURE CPT-4: 10838 10/26/2019 ROUTINE VENIPUNCTURE CPT-4: 67589 10/11/2019 PT CPT-4: 1304999 10/11/2019 PPPS, initial visit CPT-4: G0438 09/20/2019 ROUTINE VENIPUNCTURE CPT-4: 75838 09/08/2019 PT CPT-4: 2528097 09/08/2019 THER/PROPH/DIAG INJ SC/IM CPT-4: 34293 09/08/2019 TRIAMCINOLONE ACET INJ NOS CPT-4: J3301 09/08/2019 ROUTINE VENIPUNCTURE CPT-4: 23797 07/29/2019 PT CPT-4: 3745872 07/29/2019 ROUTINE VENIPUNCTURE CPT-4: 75511 07/18/2019 PT CPT-4: 7311783 07/18/2019 METABOLIC PANEL TOTAL CA CPT-4: 20871 07/06/2019 COMPLETE CBC W/AUTO DIFF WBC CPT-4: 60728 07/06/2019 PROTHROMBIN TIME CPT-4: 94405 07/06/2019 ROUTINE VENIPUNCTURE CPT-4: 55638 06/14/2019 PROTHROMBIN TIME CPT-4: 30141 06/14/2019 COMPLETE CBC W/AUTO DIFF WBC CPT-4: 21406 06/14/2019 ROUTINE VENIPUNCTURE CPT-4: 88174 05/13/2019 COMPREHEN METABOLIC PANEL CPT-4: 82870 05/13/2019 COMPLETE CBC W/AUTO DIFF WBC CPT-4: 63812 05/13/2019 ASSAY THYROID STIM HORMONE CPT-4: 47626 05/13/2019 ASSAY OF FREE THYROXINE CPT-4: 28943 05/13/2019 PT CPT-4: 4611468 05/06/2019 ROUTINE VENIPUNCTURE CPT-4: 55615 05/06/2019 PT CPT-4: 4850315 04/07/2019 ROUTINE VENIPUNCTURE CPT-4: 87538 04/07/2019 ROUTINE VENIPUNCTURE CPT-4: 87320 03/08/2019 PROTHROMBIN TIME CPT-4: 00111 03/08/2019 Vital Signs Date Vital 05/16/2021 Blood Pressure 1: 136/64 Code: 8480-6 BMI: 37.0 Code: 41908-1 Heart Rate 1: 61 bpm Height: 5'3" Code: 8302-2 Respiratory Rate: 16 bpm SpO2: 98% Temperature: 36.2 (C) / 97.1 (F) Weight: 212 lbs Code: 16290-9 03/05/2021 Blood Pressure 1: 134/76 Code: 8480-6 Heart Rate 1: 66 bpm Respiratory Rate: 16 bpm SpO2: 100% Temperature: 37.1 (C) / 98.7 (F) We ight: 203 lbs Code: 11416-3 02/19/2021 Blood Pressure 1: 126/70 Code: 8480-6 BMI: 35.4 Code: 50335-8 Heart Rate 1: 72 bpm Height: 5'3" Code: 8302-2 Respiratory Rate: 16 bpm SpO2: 99% Temperature: 36.3 (C) / 97.3 (F) Weight: 203 lbs Code: 84718-8 01/16/2021 Blood Pressure 1: 112/74 Code: 8480-6 Heart Rate 1: 76 bpm Respiratory Rate: 20 bpm Temperature: 36.7 (C) / 98.0 (F) Weight: 205 lbs Code : 58137-5 11/19/2020 Blood Pressure 1: 120/78 Code: 8480-6 Heart Rate 1: 88 bpm Temperature: 36.6 (C) / 97.8 (F) 11/12/2020 Blood Pressure 1: 110/57 Code: 8480-6 Heart Rate 1: 68 bpm Respiratory Rate: 15 bpm SpO2: 100% Weight: 202 lbs Code: 54840 -7 10/12/2020 Blood Pressure 1: 114/70 Code: 8480-6 Heart Rate 1: 84 bpm Respiratory Rate: 18 bpm SpO2: 98% Temperature: 36.7 (C) / 98.0 (F) 09/26/2020 Blood Pressure 1: 120/72 Code: 8480-6 BMI: 35.2 Code: 72819-3 Heart Rate 1: 76 bpm Height: 5'3" Code: 8302-2 Respiratory Rate: 20 bpm SpO2: 97% Temperature: 36.7 (C) / 98.0 (F) Weight: 202 lbs Code: 21052-3 08/27/2020 Blood Pressure 1: 126/82 Code: 8480-6 Heart Rate 1: 80 bpm Respiratory Rate: 20 bpm Temperature: 36.2 (C) / 97.1 (F) Weight: 198 lbs Code : 16461-2 05/23/2020 Blood Pressure 1: 120/78 Code: 8480-6 Heart Rate 1: 68 bpm Respiratory Rate: 20 bpm SpO2: 97% Temperature: 36.4 (C) / 97.5 (F) We ight: 200 lbs Code: 33073-4 05/02/2020 Blood Pressure 1: 133/81 Code: 8480-6 Heart Rate 1: 74 bpm Weight: 202 lbs Code: 17936-2 12/15/2019 Blood Pressure 1: 126/82 Code: 8480-6 Heart Rate 1: 64 bpm Respiratory Rate: 20 bpm SpO2: 97% Temperature: 36.6 (C) / 97.8 (F) We ight: 201 lbs Code: 29836-6 11/03/2019 Blood Pressure 1: 142/82 Code: 8480-6 [...] / 98.1 (F) Weight: 204 lbs Code: 22298-4 09/20/2019 Blood Pressure 1: 122/68 Code: 8480-6 BMI: 35.0 Code: 87703-7 Heart Rate 1: 72 bpm Height: 5'3" Code: 8302-2 Respiratory Rate: 18 bpm SpO2: 95% Temperature: 36.8 (C) / 98.3 (F) Weight: 201 lbs Code: 23822-2 09/08/2019 Blood Pressure 1: 118/72 Code: 8480-6 Heart Rate 1: 82 bpm SpO2: 97% Temperature: 36.3 (C) / 97.4 (F) Weight: 208 lbs Code: 54499-9 06/14/2019 Blood Pressure 1: 128/84 Code: 8480-6 Heart Rate 1: 72 bpm Respiratory Rate: 20 bpm SpO2: 98% Temperature: 36.7 (C) / 98.1 (F) We ight: 209 lbs Code: 33373-0 05/13/2019 Blood Pressure 1: 144/90 Code: 8480-6 Heart Rate 1: 88 bpm Respiratory Rate: 24 bpm SpO2: 96% Temperature: 37.1 (C) / 98.8 (F) We ight: 210 lbs Code: 01467-5 05/02/2019 Blood Pressure 1: 128/80 Code: 8480-6 Heart Rate 1: 84 bpm Respiratory Rate: 20 bpm SpO2: 95% Temperature: 36.6 (C) / 97.9 (F) We ight: 209 lbs Code: 63296-6 03/22/2019 Blood Pressure 1: 122/70 Code: 8480-6 He art Rate 1: 85 bpm 03/08/2019 Blood Pressure 1: 114/78 Code: 8480-6 BMI: 36.1 Code: 15399-9 Heart Rate 1: 76 bpm Height: 5'3" Code: 8302-2 Respiratory Rate: 20 bpm SpO2: 97% Temperature: 37.1 (C) / 98.8 (F) Weight: 207 lbs Code: 78280-7 Functional Status No Functional Status data Reason [...] visit Encounters Encounter Performer Location Codes Date ([id number]) NURSE/OUTPATIENT VISIT EST Diagnosis: Long-term (current) use of anticoagulants, INR goal 2.0-3.0[ICD10: Z79.01] Jeanie BLACK [employer] CPT-4: 65383 07/19/2021 ([id number]) NURSE/OUTPATIENT VISIT EST Diagnosis: Essential (primary) hypertension[ICD10: I10] Diagnosis: Chronic atrial fibrillation[ICD10: I48.20] Diagnosis: Long-term (current) use of anticoagulants, INR goal 2.0-3.0[ICD10: Z79.01] Diagnosis: Anemia, unspecified[ICD10: D64.9] Jeanie BLACK [employer] CPT-4: 71606 06/20/2021 ([id number]) OFFICE/OUTPATIENT VISIT EST Diagnosis: Long-term (current) use of anticoagulants, INR goal 2.0-3.0[ICD10: Z79.01] Diagnosis: Essential (primary) hypertension[ICD10: I10] Diagnosis: Chronic congestive heart failure with left ventricular diastolic dysfunction[ICD10: I50.32] Diagnosis: Severe obesity (BMI 35.0-39.9) with comorbidity[ICD10: E66.01] Diagnosis: Chronic atrial fibrillation[ICD10: I48.20] Diagnosis: Obstructive sleep apnea syndrome[ICD10: G47.33] Remedios BLACK [employer] CPT-4: 82290 05/16/2021 ([id number]) NURSE/OUTPATIENT VISIT EST Diagnosis: Hypothyroidism, unspecified[ICD10: E03.9] Diagnosis: Long-term (current) use of anticoagulants, INR goal 2.0-3.0[ICD10: Z79.01] Jeanie BLACK [employer] [facility] CPT-4: 96754 04/11/2021 ([id number]) NURSE/OUTPATIENT VISIT EST Diagnosis: Long-term (current) use of anticoagulants, INR goal 2.0-3.0[ICD10: Z79.01] Jeanie BLACK DO [facility] CPT-4: 61321 03/15/2021 ([id number]) OFFICE/OUTPATIENT VISIT EST Diagnosis: Essential hypertension[ICD10: I10] Diagnosis: Cheilitis[ICD10: K13.0] Diagnosis: Pulmonary hypertension[ICD10: I27.20] Jeanie BLACK [employer] [facility] CPT-4: 42223 03/05/2021 ([id number]) NURSE/OUTPATIENT VISIT EST Diagnosis: Essential (primary) hypertension[ICD10: I10] Diagnosis: Hypothyroidism, unspecified[ICD10: E03.9] Diagnosis: Long-term (current) use of anticoagulants, INR goal 2.0-3.0[ICD10: Z79.01] Diagnosis: Mixed hyperlipidemia[ICD10: E78.2] Jeaniemario [employer] RAFI David BLACK [employer] [facility] CPT-4: 68906 02/22/2021 ([id number]) OFFICE/OUTPATIENT VISIT EST Diagnosis: Cheilitis[ICD10: K13.0] Diagnosis: Encounter for medication review and counseling[ICD10: Z71.89] Diagnosis: Long-term (current) use of anticoagulants, INR goal 2.0-3.0[ICD10: Z79.01] Diagnosis: Hypothyroidism, unspecified[ICD10: E03.9] Diagnosis: Mixed hyperlipidemia[ICD10: E78.2] Diagnosis: Severe obesity (BMI 35.0-39.9) with comorbidity[ICD10: E66.01] Diagnosis: Chronic congestive heart failure with left ventricular diastolic dysfunction[ICD10: I50.32] Remedios BLACK DO [facility] CPT- 4: 55670 02/19/2021 ([id number]) OFFICE/OUTPATIENT VISIT EST Diagnosis: Cheilitis[ICD10: K13.0] Jannette PINZON DO [facility] CPT-4: 58805 01/16/2021 ([id number]) OFFICE/OUTPATIENT VISIT EST Diagnosis: Hypotension[ICD10: I95.9] Diagnosis: Dizziness[ICD10: R42] Jannette BLACK DO C CPT-4: 13635 11/12/2020 ([id number]) OFFICE/OUTPATIENT VISIT EST Diagnosis: Thoracic back pain[ICD10: M54.6] Diagnosis: Dizziness[ICD10: R42] Jannette BLACK DO C CPT-4: 20179 10/12/2020 ([id number]) OFFICE/OUTPATIENT VISIT EST Diagnosis: Chronic atrial fibrillation[ICD10: I48.20] Diagnosis: Chronic airway obstruction, not elsewhere classified[ICD10: J44.9] Diagnosis: Essential hypertension[ICD10: I10] Jeanie BLACK DO [facility] CPT-4: 43508 08/27/2020 ([id number]) OFFICE/OUTPATIENT VISIT EST Diagnosis: Essential (primary) hypertension[ICD10: I10] Diagnosis: Chronic atrial fibrillation[ICD10: I48.20] Diagnosis: COPD (chronic obstructive pulmonary disease)[ICD10: J44.9] Diagnosis: Dyspnea[ICD10: R06.00] Diagnosis: Left hip pain[ICD10: M25.552] Jeanie BLACK DO [facility] CPT-4: 68970 05/23/2020 ([id number]) NURSE/OUTPATIENT VISIT EST Diagnosis: Essential (primary) hypertension[ICD10: I10] Jeanie BLACK DO [facility] CPT-4: 59743 05/02/2020 ([id number]) OFFICE/OUTPATIENT VISIT EST Diagnosis: COPD (chronic obstructive pulmonary disease)[ICD10: J44.9] Diagnosis: Chronic atrial fibrillation[ICD10: I48.20] Diagnosis: Essential hypertension[ICD10: I10] [facility]: 40059 03/20/2020 ([id number]) NURSE/OUTPATIENT VISIT EST Diagnosis: Long-term (current) use of anticoagulants, INR goal 2.0-3.0[ICD10: Z79.01] Jeanie BLACK [employer] [facility] CPT-4: 38379 01/20/2020 ([id number]) OFFICE/OUTPATIENT VISIT EST Diagnosis: COPD (chronic obstructive pulmonary disease)[ICD10: J44.9] Diagnosis: Long-term (current) use of anticoagulants, INR goal 2.0-3.0[ICD10: Z79.01] Diagnosis: History of recent fall[ICD10: Z91.81] Jeanie BLACK [employer] [facility] CPT-4: 67064 12/15/2019 ([id number]) NURSE/OUTPATIENT VISIT EST Diagnosis: Long-term (current) use of anticoagulants, INR goal 2.0-3.0[ICD10: Z79.01] Jeanie BLACK [employer] [facility] CPT-4: 57111 11/10/2019 ([id number]) OFFICE/OUTPATIENT VISIT EST Diagnosis: Post concussion syndrome[ICD10: F07.81] Diagnosis: Head contusion[ICD10: S00.93XA] Diagnosis: Chronic airway obstruction, not elsewhere classified[ICD10: J44.9] Jeanie BLACK [employer] [facility] CPT-4: 03845 11/03/2019 ([id number]) OFFICE/OUTPATIENT VISIT EST Diagnosis: Fall as cause of accidental injury at home as place of occurrence[ICD10: W19.XXXA] Diagnosis: Headache[ICD10: R51] Diagnosis: Essential (primary) hypertension[ICD10: I10] Diagnosis: Long-term (current) use of anticoagulants, INR goal 2.0-3.0[ICD10: Z79.01] Diagnosis: Ecchymosis of left eye[ICD10: S05.12XA] Jannette BLACK [employer] [facility] CPT-4: 76804 10/31/2019 ([id number]) NURSE/OUTPATIENT VISIT EST Diagnosis: Long-term (current) use of anticoagulants, INR goal 2.0-3.0[ICD10: Z79.01] Jeanie BLACK DO [employer] CPT-4: 95729 10/26/2019 ([id number]) OFFICE/OUTPATIENT VISIT EST Diagnosis: Long-term (current) use of anticoagulants, INR goal 2.0-3.0[ICD10: Z79.01] Diagnosis: Pain in right arm[ICD10: M79.601] Diagnosis: Radiculopathy of arm[ICD10: M54.10] Jannette BLACK [employer] CPT-4: 61213 10/11/2019 ([id number]) OFFICE/OUTPATIENT VISIT EST Diagnosis: Long-term (current) use of anticoagulants, INR goal 2.0-3.0[ICD10: Z79.01] Diagnosis: Sinusitis[ICD10: J32.9] Diagnosis: Pain in right arm[ICD10: M79.601] Jannette BL[employer] CPT-4: 96907 09/08/2019 ([id number]) NURSE/OUTPATIENT VISIT EST Diagnosis: Chronic atrial fibrillation[ICD10: I48.2] Diagnosis: Encounter for therapeutic drug level monitoring[ICD10: Z51.81] Jeanie BLACK DO [employer] CPT-4: 64502 07/29/2019 ([id number]) NURSE/OUTPATIENT VISIT EST Diagnosis: Chronic atrial fibrillation[ICD10: I48.2] Diagnosis: Encounter for therapeutic drug level monitoring[ICD10: Z51.81] Jeanie BLACK DO [employer] CPT-4: 43347 07/18/2019 ([id number]) NURSE/OUTPATIENT VISIT EST Diagnosis: Encounter for therapeutic drug level monitoring[ICD10: Z51.81] Diagnosis: Chronic atrial fibrillation[ICD10: I48.2] Diagnosis: Essential (primary) hypertension[ICD10: I10] Jeanie BLACK DO [employer] CPT-4: 92800 07/06/2019 ([id number]) OFFICE/OUTPATIENT VISIT EST Diagnosis: Encounter for therapeutic drug level monitoring[ICD10: Z51.81] Diagnosis: Anemia, unspecified[ICD10: D64.9] Diagnosis: Bitten by dog, sequela[ICD10: W54.0XXS] 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] Jeanie BL[employer] CPT-4: 77539 06/14/2019 ([id number]) OFFICE/OUTPATIENT VISIT EST Diagnosis: Bitten by dog, sequela[ICD10: W54.0XXS] Diagnosis: Other fatigue[ICD10: R53.83] Diagnosis: Hypothyroidism, unspecified[ICD10: E03.9] Diagnosis: Muscle weakness (generalized)[ICD10: M62.81] Diagnosis: Generalized anxiety disorder[ICD10: F41.1] Jannette BLACK [employer] CPT-4: 30013 05/13/2019 ([id number]) NURSE/OUTPATIENT VISIT EST Diagnosis: Encounter for therapeutic drug level monitoring[ICD10: Z51.81] Jeanie BL[employer] CPT-4: 67243 05/06/2019 ([id number]) OFFICE/OUTPATIENT VISIT EST Diagnosis: Bitten by dog, sequela[ICD10: W54.0XXS] Diagnosis: Pain in right wrist[ICD10: M25.531] Diagnosis: Abrasion of right upper arm, sequela[ICD10: S40.811S] Diagnosis: Abrasion of left upper arm, sequela[ICD10: S40.812S] Jannette BLACK [employer] CPT-4: 15704 05/02/2019 ([id number]) NURSE/OUTPATIENT VISIT EST Diagnosis: Encounter for therapeutic drug level monitoring[ICD10: Z51.81] Jeanie BLACK [employer] CPT-4: 11129 04/07/2019 ([id number]) OFFICE/OUTPATIENT VISIT NEW Diagnosis: Encounter for therapeutic drug level monitoring[ICD10: Z51.81] Diagnosis: Chronic atrial fibrillation[ICD10: I48.2] Diagnosis: Essential (primary) hypertension[ICD10: I10] Diagnosis: Abnormal findings on diagnostic imaging of heart and coronary circulation[ICD10: R93.1] Diagnosis: Other forms of dyspnea[ICD10: R06.09] Diagnosis: Hypothyroidism, unspecified[ICD10: E03.9] Diagnosis: Mixed hyperlipidemia[ICD10: E78.2] Jeanie MCKEE [employer] CPT-4: 39335 03/08/2019 Plan of Care Planned Activity Notes Codes Status Date Appointment: Jeanie Black WPtel: [phone] [facility] US LAB 07/19/2021 Appointment: Jeanie Black WPtel: [address] [facility] US LAB 06/20/2021 Visit Diagnosis Plan: Severe [...] 05/16/2021 Appointment: Remedios Cavazos WPtel[facility] [address] [facility] [facility] REVIEW 05/16/2021 Patient Education: Patient Medication Summary Completed 05/16/2021 Patient Education: isosorbide mononitrate- Opt[employer] Coupon [id number] https://www.imbookin ([place])/[employer]/resources/getResource/61/b0k4q6p6-p301-517b-f7 Completed 05/16/2021 Patient Education: High Blood Pressure Co mpleted 05/16/2021 Appointment: Jeanie Black WPtel: [address] [place], [place] [phone] US LAB 04/11/2021 Appointment: Jeanie Black WPtel: [address] [place], [place] [phone] US CANCELED 03/27/2021 Appointment: Jeanie Black WPtel: [address] [place], [place] [phone] US LAB 03/15/2021 Visit Diagnosis Plan: Pulmonary [...] : I10 03/05/2021 Appointment: Jeanie Black WPtel: [address] [place], [place] [address] US FOLLOW UP 03/05/2021 Patient Education: spironolactone- Opt[employer]RX Coupon 1 [id number] https://www.imbookin ([place])/[employer]/resources/getResource/61/7kl00ci1-4q8v-2g05-2b Completed 03/05/2021 Appointment: Jeanie Black WPtel: [address] [place] [address] [id number] US LAB 02/22/2021 Visit Diagnosis Plan: Cheilitis [...] 02/19/2021 Appointment: Remedios Cavazos WPtel: [phone] [phone] MEDICATION REVIEW 02/19/2021 Patient Education: Patient Medication [...] : K13.0 01/16/2021 Appointment: Jannette Mayen [address] [place] [address] ACUTE ILLNESS 01/16/2021 Appointment: Jeanie Black WPtel: [phone] BP CHECK 11/19/2020 Visit Diagnosis Plan: [...] : I95.9 11/12/2020 Appointment: Jannette Mayen [address] [place] [address] ACUTE ILLNESS 11/12/2020 Visit Diagnosis Plan: Thoracic [...] : R42 10/12/2020 [facility]ment[facility] [facility] 10/12/2020 Visit Diagnosis Plan: Chronic atrial fibrillation Disc ussion: Following routinely with cardiology ICD-9 : 427.31 ICD-10 : I48.20 09/26/2020 Visit Diagnosis Plan: Essential (primary) hypertension Discussion: Stable ICD-9 : 401.9 ICD-10 : I10 09/26/2020 Visit Diagnosis Plan: Encounter for [facility] adult medical examination without abnormal findings [...] I50.32 09/26/2020 Appointment: Jeanie Black WPtel: [facility]4 [facility] Annual Well Visit 09/26/2020 Care Plan: Referral Order SNOMED-CT : 30 [id number] Pending 09/26/2020 Visit Diagnosis Plan: Chronic airway [...] I48.20 08/27/2020 Appointment: Jeanie Black WPtel: [facility]9 [facility] US FOLLOW UP 08/27/2020 Visit Diagnosis Plan: [...] : I10 05/23/2020 Appointment: Jeanie Black WPtel: [address] [place], [place] [phone] FOLLOW UP 05/23/2020 Appointment: Jeanie Black WPtel: [address] [place], [place] [phone] NURSE SERVICES 05/02/2020 Visit Diagnosis Plan: Chronic [...] : J44.9 03/20/2020 Appointment: Jeanie Black WPtel: [address] [place], [place] [id number] TELEMEDICINE 03/20/2020 Patient Education: Coumadin- Opt[employer]RX Coupon [id number] https://www.imbookin ([place])/[employer]/resources/getResource/61/9n678e81-90p4-6gok-2t Completed 03/20/2020 Patient Education: Coumadin- [employer] Coupon [id number] https://www.imbookin ([place])/samplemd/resources/getResource/61/4lp33h6q-3z5q-4ex5-sk Completed 03/20/2020 Appointment: Jeanie Black WPtel: [address] [place], [place] [phone] US LAB 01/20/2020 Visit Diagnosis Plan: History of recent fall Discussio n: Healing well Doing balance class at [facility] Follow Up: 3 months ICD-9 : V15.88 ICD-10 : Z91.81 12/15/2019 Visit Diagnosis Plan: COPD (chronic obstructive pulmon valeria disease) Discussion: Continue pulmonary rehab ICD-9 : 496 ICD-10 : J44.9 12/15/2019 Visit Diagnosis Plan: Long-term (current ) use of anticoagulants, INR goal 2.0-3.0 Discussion: PT/INR drawn ICD-9 : V58.61 ICD-10 : Z79.01 12/15/2019 Appointment: Jeanie Black WPtel: [address] [place], [place] [phone] US FOLLOW UP 12/15/2019 Patient Education: Coumadin- Opt[employer]RX Coupon [id number] 5 https://www.imbookin ([place])/[employer]/resources/getResource/61/e791ihdu-ng02-0gwj-4p Completed 12/15/2019 Appointment: Jeanie Black WPtel: [address] [place], [place] [phone] US LAB 11/10/2019 Visit Diagnosis Plan: Post [...] J44.9 11/03/2019 Appointment: Jean[facility] Black WPtel: [address] [facility] [facility] 11/03/2019 Care Plan: CT HEAD/BRAIN W/O DYE LOINC : 95987-5 Pending 11/01/2019 Visit Diagnosis Plan: Essential (primary) [...] ICD-10 : S05.12XA 10/31/2019 Appointment: Jannette Mayen [address] [place] [address] Follow Up 10/31/2019 Patient Education: High Blood Pressure Co mpleted 10/31/2019 Patient Education: losartan- [employer] Coupon [id number] 5 https://www.[employer].com/samplemd/resources/getResource/61/0d619741-8a37-1671-4e Completed 10/31/2019 Appointment: Jeanie Black WPtel[facility] [address] [facility] FO[facility] 10/26/2019 Visit Diagnosis Plan: [...] : M54.10 10/11/2019 Appointment: Jannette Mayen [address] [facility] ACUTE ILLNESS 10/11/2019 Patient Education: cyclobenzaprine- Opt[employer]RX Coupon [id number] https://www.[employer]/samplemd/resources/getResource/61/48d4z4b7-44o0-3f90-09 Completed 10/11/2019 Visit Diagnosis Plan: Bitten by dog, sequela Discussio n: Still seeing counselor Still doing therapy--left 4th finger still not agile enough to play violin and feels like pinched nerve in neck on right--dscussed stretches, massage, accupuncture---patient had hired [employer] attorney ICD-9 : 906.1 ICD-10 : W54.0XXS 09/20/2019 Visit Diagnosis Plan: Encounter for [facility] adult medical examination without abnormal findings [...] E78.2 09/20/2019 Appointment: Jeanie Black WPtel: [phone] [facility] Annual Well Visit 09/20/2019 Visit Diagnosis Plan: [...] ICD-10 : Z79.01 09/08/2019 Appointment: Jannette Mayen [address] [place] [address] ACUTE ILLNESS 09/08/2019 Appointment: Jeanie Black WPtel: [address] [place] [address] US CANCELED 08/16/2019 Appointment: Jeanie Black WPtel: [address] [place] [address] US LAB 07/29/2019 Appointment: Jeanie Black WPtel: [address] [place] [address] US LAB 07/18/2019 Appointment: Jeanie Black WPtel: [address] [place] [address] US LAB 07/06/2019 Visit Diagnosis Plan: Bitten [...] : D64.9 06/14/2019 Appointment: Jeanie Black WPtel: [address] [place], [place] [address] US FOLLOW UP 06/14/2019 Visit Diagnosis Plan: [...] refer to [facility] as well to discuss concerns. [...] ICD-10 : R53.83 05/13/2019 Appointment: Jannette Mayen [address] [place], [place] [address] FOLLOW UP 05/13/2019 Patient Education: carvedilol- OptimizeRX Coupon [id number] https://www.samplemd.com/samplemd/resources/getResource/61/41s4e194-1lvi-8414-2m Completed 05/13/2019 Patient Education: Xanax- OptimizeRX Coupon [id number] https://www.[employer].com/samplemd/resources/getResource/61/7205n0h1-6k79-8d1t-t3 1e-1d10398233p1.pdf Completed 05/13/2019 Appointment: Jeanie Black WPtel: [address] [facility] US LAB 05/06/2019 Visit Diagnosis Plan: Abrasion [...] : M25.531 05/02/2019 Appointment: Jannette Mayen [address] [place] [address] ACUTE ILLNESS 05/02/2019 Care Plan: X-RAY EXAM OF WRIST right LOINC : 3 7302-7 Pending 05/02/2019 Appointment: Jeanie Black WPtel: [address] [place] [address] US LAB 04/07/2019 Appointment: Jeanie Black WPtel: [address] [place] [address] US BP CHECK 03/22/2019 Visit Diagnosis Plan: [...] : I10 03/08/2019 Appointment: Jeanie Black WPtel: [address] [facility] NEW PATIENT 03/08/2019 Referral: Shona Viera WPtel: [facility] [address] Referral Appointment Requested Instructions No Instructions Medical Equipment No Medical Equipment data Health Concerns Section Health Concerns data not found Goals Section Goals data not found Interventions Section Interventions data not found Health Status Evaluations/Outcomes Section Health Status Evaluations/Outcomes data not found Advance Directives No Advance Directive data
--- OUTSIDE RECORDS SUMMARY | 2021-09-19 12:42 | XMS REPORT | CCD ---
Author Author Tricia Black D.O. Organization [facility] Address [address] [place] [address] Phone Care Team Providers Care Chief Analytics Officer Name Role Phone PP Unavailable CCM Unavailable Summary Purpose Interface Exchange Insurance Providers Payer name Policy type / Coverage type Covered alliance party ID Effective Begin Date Effective End Date WPS MEDICARE PART [place] Medicare Part B [id number] Unknown Unknown AARP Medicare Part B [id number] Unknown Unknown Family history Grandmother Diagnosis Age [...] Unknown Retired 03/08/[address]: 608316882 Has never smoked or chewed tobacco 03/08/[address]: 038073 Currently drinks alcohol 03/08 Has the patient [...] Instructions isosorbide mononitrate 10 mg tablet RxNorm: 113597 Take 1 Tablet(s) Oral two times a day 08/08/2021 No Stop Date Active losartan 100 mg tablet RxNorm: 833548 Take 1 Tablet(s) Oral QD 07/2411/02/2021 Active amoxicillin 500 mg capsule RxNorm: 477925 4 Capsule(s) Oral QD 1hr prior to dental cleaning 08/05/2021 08/05/2021 Inactive levothyroxine 50 mcg tablet RxNorm: 020538 TAKE 1 TABLE T BY MOUTH EVERY DAY. RECHECK LABS IN 2 MONTHS 08/04/2021 10/02/2021 Active potassium chloride ER 10 mEq tablet,extended release RxNorm: 590128 TAKE 1 TABLET BY MOUTH EVERY DAY 07/14/2021 10/11/2021 Active spironolactone 25 mg tablet RxNorm: 271392 1/2 Tablet(s) Oral QD No Stop Date Active isosorbide mononitrate 10 mg tablet RxNorm: 110572 Take 1 Tablet(s) Oral two times a day 05/16/2021 05/16/2021 Inactive isosorbide mononitrate ER 30 mg tablet,extended release 24 h r RxNorm: 885994 TABLET(S) 1 TABLET(S) PO NEEDED Tablet(s) Oral 05/16/2021 08/07/2021 Inactive Patient requests 90 days supply furosemide 40 mg tablet RxNorm: 997997 TAKE 1 TABLET BY MOUTH E VERY MORNING 05/07/2021 08/04/2021 Inactive isosorbide mononitrate 10 mg tablet RxNorm: 880078 Take 1 Tablet(s) Oral two times a day 04/26/2021 05/15/2021 Inactive isosorbide mononitrate 10 mg tablet RxNorm: 822554 Take 1 Tablet(s) Oral two times a day 04/25/2021 04/25/2021 Inactive potassium chloride ER 10 mEq tablet,extended release RxNorm: 816911 TAKE 1 TABLET BY MOUTH EVERY DAY 04/19/2021 04/19/2021 Inactive Coumadin 4 mg tablet RxNorm: 015305 1 Tablet(s) Oral Thursday04/11/2021 07/10/2021 Inactive Coumadin 2 mg tablet RxNorm: 346412 1 Tablet(s) Oral on Thursday and Thursday04/11/2021 07/10/2021 Inactive carvedilol 25 mg tablet RxNorm: 636336 1 Tablet(s) Oral two antolin es a day 04/03/2021 09/29/2021 Active Coumadin 2 mg tablet RxNorm: 826006 TAKE 1 TABLET BY [facility] ON THURSDAY AND Thursday03/26/2021 04/10/2021 Inactive Coumadin 4 mg tablet RxNorm: 884578 1 Tablet(s) Oral QD 02/26/2021 Inactive levothyroxine 50 mcg tablet RxNorm: 843574 1 Tablet(s) Oral QD Recheck labs in 2 months 02/26/2021 02/26/2021 Inactive Recheck labs in 2 months levothyroxine 50 mcg tablet RxNorm: 879913 1 Tablet(s) Oral QD Recheck labs in 2 months 02/26/2021 02/25/2021 Inactive Recheck labs in 2 months losartan 100 mg tablet RxNorm: 658162 TAKE 1 TABLET BY MOUTH 02/22/2021 08/20/2021 Inactive spironolactone 25 mg tablet RxNorm: 356372 1 Tablet(s) Oral QD 01/2303/04/2021 Inactive isosorbide mononitrate 10 mg tablet RxNorm: 846342 1 Ta blet(s) Oral two times a day 02/19/2021 02/25/2021 Inactive famotidine 20 mg tablet RxNorm: 425736 1 Tablet(s) Oral QD 02/20/2003/04/2021 Inactive levothyroxine 25 mcg tablet RxNorm: 475135 1 Tablet(s) Oral QD 03/0 07/202102/25/2021 Inactive atorvastatin 40 mg tablet RxNorm: 092625 1 Tablet(s) Or al QPM replaces pravastatin 01/29/2021 07/27/2021 Inactive furosemide 40 mg tablet RxNorm: 970194 TAKE 1 TABLET BY MOUTH E VERY MORNING 01/28/2021 01/28/2021 Inactive prednisone 10 mg tablet RxNorm: 312859 1 Tablet(s) Oral two antolin es a day 01/16/2021 01/19/2021 Inactive atorvastatin 40 mg tablet RxNorm: 543121 1 Tablet(s) Or al QPM replaces pravastatin 12/31/2020 01/28/2021 Inactive carvedilol 25 mg tablet RxNorm: 095385 TAKE 1 TABLET BY MOUTH T WICE DAILY 12/31/2020 04/02/2021 Inactive potassium chloride ER 10 mEq tablet,extended release RxNorm: 649403 TAKE 1 TABLET BY MOUTH EVERY DAY 12/31/2020 12/31/2020 Inactive losartan 100 mg tablet RxNorm: 299284 1 Tablet(s) Oral QD 12/03/2020 02/21/2021 Inactive Coumadin 4 mg tablet RxNorm: 415053 TAKE 1 TABLET BY [facility] THURSDAY THROUGH Thursday11/30/2020 02/25/2021 Inactive levothyroxine 25 mcg tablet RxNorm: 958991 1 Tablet(s) Oral QD 10/2401/28/2021 Inactive famotidine 20 mg tablet RxNorm: 788603 1 Tablet(s) Oral QD 11/19/20 20 01/15/2021 Inactive famotidine 20 mg tablet RxNorm: 290797 1 Tablet(s) Oral QD 11/19/20 20 11/18/2020 Inactive levothyroxine 50 mcg tablet RxNorm: 935694 TAKE 1 TABLET BY [facility] EVERY DAY 11/06/2020 01/29/2021 Inactive furosemide 40 mg tablet RxNorm: 085506 TAKE 1 TABLET BY MOUTH E VERY MORNING 11/05/2020 01/27/2021 Inactive atorvastatin 40 mg tablet RxNorm: 820028 1 Tablet(s) Or al QPM replaces pravastatin 10/22/2020 12/30/2020 Inactive atorvastatin 40 mg tablet RxNorm: 157435 1 Tablet(s) Or al QPM replaces pravastatin 10/22/2020 10/21/2020 Inactive spironolactone 25 mg tablet RxNorm: 243175 1 Tablet(s) Oral QAM 01/15/2021 Inactive carvedilol 25 mg tablet RxNorm: 021876 TAKE 1 TABLET BY MOUTH T WICE DAILY 10/04/2020 12/30/2020 Inactive pravastatin 40 mg tablet RxNorm: 786543 TAKE 1 TABLET BY MOUTH EVERY DAY 10/04/2020 12/31/2020 Inactive potassium chloride ER 10 mEq tablet,extended release RxNorm: 067592 TAKE 1 TABLET BY MOUTH EVERY DAY 10/04/2020 12/30/2020 Inactive isosorbide mononitrate ER 30 mg tablet,extended release 24 h r RxNorm: 172853 TABLET(S) 1 TABLET(S) PO NEEDED Oral 10/04/2020 02/18/2021 Inactive Patient requests 90 days supply furosemide 40 mg tablet RxNorm: 570972 TAKE 1 TABLET BY MOUTH E VERY MORNING 10/01/2020 11/04/2020 Inactive losartan 100 mg tablet RxNorm: 776503 TAKE 1 TABLET BY MOUTH 09/19/2020 12/02/2020 Inactive amlodipine 5 mg tablet RxNorm: 027905 1 Tablet(s) Oral QD 08/27/2020 11/11/2020 Inactive spironolactone 25 mg tablet RxNorm: 482776 1 Tablet(s) Oral QAM 03/202010/21/2020 Inactive levothyroxine 50 mcg tablet RxNorm: 284539 TAKE 1 TABLET BY ENE TH EVERY DAY 08/07/2020 11/04/2020 Inactive levothyroxine 50 mcg tablet RxNorm: 188297 TAKE 1 TABLET BY ENE TH EVERY DAY 08/06/2020 08/06/2020 Inactive amoxicillin 500 mg capsule RxNorm: 671397 4 Capsule(s) Oral QD 1hr prior to dental cleaning 07/31/2020 07/30/2020 Inactive amoxicillin 500 mg capsule RxNorm: 857503 4 Capsule(s) Oral QD 1hr prior to dental cleaning 07/31/2020 07/31/2020 Inactive potassium chloride ER 10 mEq tablet,extended release RxNorm: 808474 TAKE 1 TABLET BY MOUTH EVERY DAY 07/23/2020 10/03/2020 Inactive pravastatin 40 mg tablet RxNorm: 213851 TAKE 1 TABLET BY MOUTH EVERY DAY 07/23/2020 10/03/2020 Inactive carvedilol 25 mg tablet RxNorm: 460347 TAKE 1 TABLET BY MOUTH T WICE DAILY 07/23/2020 10/03/2020 Inactive losartan 100 mg tablet RxNorm: 297045 TAKE 1 TABLET BY MOUTH EV RANDI DAY 06/27/2020 09/18/2020 Inactive furosemide 40 mg tablet RxNorm: 455048 TAKE 1 TABLET BY MOUTH E VERY MORNING 06/08/2020 09/30/2020 Inactive Coumadin 4 mg tablet RxNorm: 359825 1 Tablet(s) Oral Thursday thr thursday06/07/2020 11/29/2020 Inactive Coumadin 2 mg tablet RxNorm: 387939 1 Tablet(s) Oral on and Thursday03/20/2020 03/19/2020 Inactive Coumadin 4 mg tablet RxNorm: 501141 1 Tablet(s) Oral Thursday thr thursday03/20/2020 06/06/2020 Inactive losartan 100 mg tablet RxNorm: 095051 TAKE 1 TABLET BY MOUTH EV RANDI DAY 03/20/2020 06/26/2020 Inactive Coumadin 2 mg tablet RxNorm: 364887 1 Tablet(s) Oral on and Thursday03/20/2020 02/25/2021 Inactive furosemide 40 mg tablet RxNorm: 680937 1 Tablet(s) Oral [facility] 020 06/07/2020 Inactive pravastatin 40 mg tablet RxNorm: 059243 TAKE 1 TABLET BY MOUTH EVERY DAY 02/07/2020 07/22/2020 Inactive losartan 100 mg tablet RxNorm: 773786 TAKE 1 TABLET BY MOUTH EV RANDI DAY 02/01/2020 03/19/2020 Inactive losartan 100 mg tablet RxNorm: 907334 TAKE 1 TABLET BY MOUTH EV RANDI DAY 01/17/2020 01/31/2020 Inactive Coumadin 2 mg tablet RxNorm: 030379 1 Tablet(s) Oral on and Thursday12/15/2019 12/15/2019 Inactive furosemide 40 mg tablet RxNorm: 764796 TAKE 1 TABLET BY MOUTH E VERY MORNING 12/14/2019 03/12/2020 Inactive pravastatin 40 mg tablet RxNorm: 971164 TAKE 1 TABLET BY MOUTH EVERY DAY 11/27/2019 02/06/2020 Inactive losartan 100 mg tablet RxNorm: 976327 1 Tablet(s) Oral QD 11/10/2019 01/16/2020 Inactive isosorbide mononitrate ER 30 mg tablet,extended release 24 h r RxNorm: 417728 TABLET(S) 1 TABLET(S) PO NEEDED 11/10/2019 05/08/2020 Inactive Patient requests 90 days supply carvedilol 25 mg tablet RxNorm: 735309 1 Tablet(s) Oral two antolin es a day 11/10/2019 05/08/2020 Inactive Coumadin 2 mg tablet RxNorm: 381609 1 Tablet(s) Oral on and Thursday11/10/2019 12/14/2019 Inactive losartan 100 mg tablet RxNorm: 627679 1 Tablet(s) Oral QD 11/10/2019 11/09/2019 Inactive levothyroxine 50 mcg tablet RxNorm: 181789 1 Tablet(s) Oral QD 10/2310/21/2020 Inactive Coumadin 4 mg tablet RxNorm: 807344 1 Tablet(s) Oral Thursday thr thursday11/10/2019 11/10/2019 Inactive losartan 50 mg tablet RxNorm: 792218 2 Tablet(s) Oral QD 11/01/2019 1 01/10/2019 Inactive potassium chloride ER 10 mEq capsule,extended release RxNorm : 745055 1 Capsule(s) Oral QD 10/26/2019 12/14/2019 Inactive potassium chloride ER 10 mEq tablet,extended release RxNorm: 428235 1 TABLET(S) ORAL QD 10/22/2019 04/18/2020 Inactive Replaces PA on 1 0MEQ Capsules Aspir-81 mg tablet,delayed release RxNorm: 458164 1 Tablet(s) O ral QD 10/11/2019 No Stop Date Active cyclobenzaprine 5 mg tablet RxNorm: 218237 1 Tablet(s) Oral two times a day as needed for muscle spasm 10/11/2019 03/19/2020 Inactive Coumadin 4 mg tablet RxNorm: 557193 1 Tablet(s) Oral Mo through Thursday and 1/2 tablet (2mg) on Sat/Sun 10/11/2019 11/09/2019 Inactive potassium chloride ER 10 mEq tablet,extended release RxNorm: 087830 1 Tablet(s) Oral QD 09/22/2019 09/21/2019 Inactive Replaces PA on 1 0MEQ Capsules potassium chloride ER 10 mEq tablet,extended release RxNorm: 303480 1 Tablet(s) Oral QD 09/22/2019 10/10/2019 Inactive Replaces PA on 1 0MEQ Capsules potassium chloride ER 10 mEq capsule,extended release RxNorm : 614619 1 Capsule(s) Oral QD 09/21/2019 09/21/2019 Inactive carvedilol 25 mg tablet RxNorm: 250251 1 Tablet(s) Oral two antolin es a day 08/23/2019 11/09/2019 Inactive isosorbide mononitrate ER 30 mg tablet,extended release 24 h r RxNorm: 502565 TABLET(S) 1 TABLET(S) PO NEEDED 08/22/2019 10/04/2020 Inactive Patient requests 90 days supply isosorbide mononitrate ER 30 mg tablet,extended release 24 h r RxNorm: 674776 Tablet(s) 1 TABLET(S) PO NEEDED 08/16/2019 08/21/2019 Inactive Patient requests 90 days supply levothyroxine 50 mcg tablet RxNorm: 875007 1 Tablet(s) PO QD 201811/09/2019 Inactive isosorbide mononitrate ER 30 mg tablet,extended release 24 h r RxNorm: 120398 Tablet(s) 1 TABLET(S) PO NEEDED 06/27/2019 08/15/2019 Inactive Patient requests 90 days supply isosorbide mononitrate ER 30 mg tablet,extended release 24 h r RxNorm: 485377 1 Tablet(s) PO QD as needed 06/27/2019 06/27/2019 Inactive Neris ent requests 90 days supply carvedilol 25 mg tablet RxNorm: 769890 1 TABLET(S) PO BID 06/27/2019 08/22/2019 Inactive furosemide 40 mg tablet RxNorm: 093317 1 Tablet(s) PO QAM 06/21/2019 12/13/2019 Inactive carvedilol 25 mg tablet RxNorm: 193645 1 Tablet(s) PO BID 05/13/2019 06/26/2019 Inactive Xanax 0.25 mg tablet RxNorm: 661109 1/2 Tablet(s) PO Q6H as needed 05/13/2019 09/07/2019 Inactive levothyroxine 50 mcg tablet RxNorm: 297447 1 Tablet(s) PO QD 201808/07/2019 Inactive losartan 50 mg tablet RxNorm: 917456 1 Tablet(s) PO QD 04/26/2019 Inactive losartan 50 mg tablet RxNorm: 628890 1 Tablet(s) PO QD 04/20/201901/2019 Inactive pravastatin 40 mg tablet RxNorm: 016882 1 Tablet(s) PO QD 04/07/2019 06/05/2019 Inactive isosorbide mononitrate ER 30 mg tablet,extended release 24 h r RxNorm: 987005 1 Tablet(s) PO as needed 04/07/2019 04/06/2019 Inactive isosorbide mononitrate ER 30 mg tablet,extended release 24 h r RxNorm: 510200 1 TABLET(S) PO NEEDED 04/07/2019 06/26/2019 Inactive Patient requests 90 days supply losartan 50 mg tablet RxNorm: 120658 1 Tablet(s) PO QD 03/22/2019 Inactive Prolia subcutaneous RxNorm: 839635 subcutaneous 02/19/2021 A ctive carvedilol 25 mg tablet RxNorm: 848207 1 Tablet(s) PO BID 05/13/2019 05/12/2019 Inactive losartan 50 mg tablet RxNorm: 583058 1 Tablet(s) PO QD 03/22/2019 Inactive Ventolin HFA 90 mcg/actuation aerosol inhaler RxNorm: 248437 1-2 Puff(s) INH as needed 09/08/2019 09/07/2019 Inactive furosemide 40 mg tablet RxNorm: 607738 1 Tablet(s) PO QAM 06/21/2019 06/20/2019 Inactive pravastatin 40 mg tablet RxNorm: 454765 1 Tablet(s) PO QD 04/07/2019 04/06/2019 Inactive Coumadin 2 mg tablet RxNorm: 742334 1 Tablet(s) PO Mon, Fri, Sat and Sun then 2 tablets (4mg) on , Thu and 10/11/2019 10/10/2019 Inactive isosorbide mononitrate ER 30 mg tablet,extended release 24 h r RxNorm: 334778 Tablet(s) PO as needed 04/07/2019 04/06/2019 Inactive Women's Multivitamin 18 mg iron-400 mcg-500 mg tablet RxNorm : 1 Tablet(s) PO QD 09/08/2019 09/07/2019 Inactive Vitamin D3 1000 units Capsule RxNorm: 3 Capsule(s) PO QD 9 09/07/2019 Inactive vitamin B complex capsule RxNorm: 1 Capsule(s) PO QD 09/08/2019 Inactive potassium chloride ER 10 mEq capsule,extended release RxNorm : 106507 1 Capsule(s) PO QD 09/21/2019 09/20/2019 Inactive levothyroxine 50 mcg tablet RxNorm: 045720 1 Tablet(s) PO QD 201804/25/2019 Inactive Medication Administered No Medication Administered data Immunizations Vaccine Codes Date Status Influenza CVX: 135 07/06/2020 Pneumovax CVX: 33 02/03/2020 Influenza CVX: 135 07/02/2019 Results Observation Observation Code Item Item Code Result Date S ervice Location PT 9412196 PT 28.3 Seconds 07/19/2021 Unknow n PT [id number] INR 2.6 07/19/2021 Unknown COMPREHENSIVE METABOLIC 61707 AST 20 U/L 2020 Unknown COMPREHENSIVE METABOLIC 55896 ALT 16 U/L 2020 Unknown COMPREHENSIVE METABOLIC 78859 BUN 35 mg/dL 2020 Unknown COMPREHENSIVE METABOLIC 99367 ALBUMIN 4.1 g/dL 2020 Unknown COMPREHENSIVE METABOLIC 02892 CHLORIDE 105 mmol/L 06/20 Unknown COMPREHENSIVE METABOLIC 13327 Bili Total 1.1 mg/dL 06/20 Unknown COMPREHENSIVE METABOLIC 39709 ALK PHOS 103 U/L 2020 Unknown COMPREHENSIVE METABOLIC 03798 SODIUM 139 mmol/L 06/20 Unknown COMPREHENSIVE METABOLIC 78383 CREATININE 0.99 mg/dL 05/24 Unknown COMPREHENSIVE METABOLIC 56141 CALCIUM 8.8 mg/dL 2020 Unknown COMPREHENSIVE METABOLIC 49082 POTASSIUM 4.7 mmol/L 06/20 Unknown COMPREHENSIVE METABOLIC 69707 Total Protein 6.2 g/dL Unknown COMPREHENSIVE METABOLIC 86345 Glucose 83 mg/dL 2020 Unknown COMPREHENSIVE METABOLIC 76578 Bicarbonate 27 mmol/L 05/24 Unknown COMPREHENSIVE METABOLIC 92023 AGAP 7 mmol/L 2020 Unknown COMPLETE BLOOD COUNT [id number] WBC 4.5 10e9/L 06/20/20 21 Unknown COMPLETE BLOOD COUNT [id number] RBC 3.99 10e12/L 2020 Unknown COMPLETE BLOOD COUNT [id number] HEMOGLOBIN 11.8 g/dL 06/20/20 21 Unknown COMPLETE BLOOD COUNT 1147558 HEMATOCRIT 36.6 % 06/20/20 21 Unknown COMPLETE BLOOD COUNT [id number] MCV 91.7 fL 1 Unknown COMPLETE BLOOD COUNT [id number] MCH 29.6 pg 1 Unknown COMPLETE BLOOD COUNT 7741119 MCHC 32.2 g/dL 1 Unknown COMPLETE BLOOD COUNT [id number] PLATELET COUNT 180 10e9/L Unknown COMPLETE BLOOD COUNT 1403435 Mean Plt Volume 11.1 fL Unknown COMPLETE BLOOD COUNT 2268309 Neut Auto 64.7 % 1 Unknown COMPLETE BLOOD COUNT [id number] Lymph Auto 19.6 % 06/20/20 21 Unknown COMPLETE BLOOD COUNT 0320600 Elliott Auto 13.5 % 1 Unknown COMPLETE BLOOD COUNT [id number] Eos Auto 1.8 % 1 Unknown COMPLETE BLOOD COUNT 1412257 RDW 15.1 % 1 Unknown COMPLETE BLOOD COUNT 6014635 Baso Auto 0.4 % 1 Unknown COMPLETE BLOOD COUNT 1372171 Neutrophil Abs 2.91 10e9/L Unknown COMPLETE BLOOD COUNT [id number] Lymphocyte Abs 0.88 10e9/L Unknown COMPLETE BLOOD COUNT [id number] Monocyte Abs 0.61 10e9/L 05/24 Unknown COMPLETE BLOOD COUNT [id number] Eosinophil Abs 0.08 10e9/L Unknown COMPLETE BLOOD COUNT 6562175 RDW-SD 49.5 fL 1 Unknown COMPLETE BLOOD COUNT 1679630 Basophil Abs 0.02 10e9/L 05/24 Unknown GFR CALC 8321709 GFR Afr Amr >60 mL/min 06/20/2021 Unknow n GFR CALC 8604408 GFR Non Afr Amr 53 mL/min 06/20/2021 Unk nown PT [id number] PT 27.4 Seconds 06/20/2021 Unknow n PT [id number] INR 2.5 06/20/2021 Unknown PT [id number] PT 25.8 Seconds 05/21/2021 Unknow n PT [id number] INR 2.3 05/21/2021 Unknown FREE T4 59210 T4 Free 1.19 ng/dL 04/11/2021 Unknown PT [id number] PT 33.6 Seconds 04/11/2021 Unknow n PT [id number] INR 3.3 04/11/2021 Unknown THYROID STIMULATING HORMONE 28323 TSH 3.912 uIU/mL 04/11/2021 Unknown PT [id number] PT 33.1 Seconds 03/15/2021 Unknow n PT [id number] INR 3.2 03/15/2021 Unknown PT [id number] PT 24.6 Seconds 05/23/2020 Unknow n PT [id number] INR 2.2 05/23/2020 Unknown PT [id number] PT 31.4 Seconds 10/26/2019 Unknow n PT [id number] INR 2.9 10/26/2019 Unknown PT [id number] PT 17.6 Seconds 10/11/2019 Unknow n PT [id number] INR 1.4 10/11/2019 Unknown PT [id number] PT 23.7 Seconds 09/08/2019 Unknow n PT [id number] INR 2.0 09/08/2019 Unknown PT [id number] PT 23.2 Seconds 07/29/2019 Unknow n PT [id number] INR 2.0 07/29/2019 Unknown PT [id number] PT 14.3 Seconds 07/18/2019 Unknow n PT [id number] INR 1.1 07/18/2019 [place] [address] Glucose 75 mg/dL 07/06 [place] [address] CREATININE 0.61 mg/dL [place] [address] BUN 15 mg/dL 07/06 [place] [address] SODIUM 142 mmol/L 06/23 [place] [address] POTASSIUM 4.0 mmol/L 06/23 [place] [address] CHLORIDE 106 mmol/L 06/23 [place] [address] Bicarbonate 28 mmol/[place] [address] AGAP 8 mmol/L 07/06 [place] [address] CALCIUM 9.3 mg/dL 07/06 Unknown PT [id number] PT 17.4 Seconds 07/06/2019 Unknow n PT [id number] INR 1.4 07/06/2019 Unknown GFR CALC 1504483 GFR Afr Amr >60 mL/min 07/06/2019 Unknow n GFR CALC [id number] GFR Non Afr Amr >60 mL/min 07/06/2019 Un known COMPLETE BLOOD COUNT [id number] WBC 4.7 10e9/L 07/06/20 19 Unknown COMPLETE BLOOD COUNT [id number] RBC 4.19 10e12/L 2018 Unknown COMPLETE BLOOD COUNT [id number] HEMOGLOBIN 12.6 g/dL 07/06/20 19 Unknown COMPLETE BLOOD COUNT [id number] HEMATOCRIT 39.4 % 07/06/20 19 Unknown COMPLETE BLOOD COUNT 8723042 MCV 94.0 fL 9 Unknown COMPLETE BLOOD COUNT 9374795 MCH 30.1 pg 9 Unknown COMPLETE BLOOD COUNT 4200588 MCHC 32.0 g/dL 9 Unknown COMPLETE BLOOD COUNT [id number] PLATELET COUNT 160 10e9/L Unknown COMPLETE BLOOD COUNT 5608085 Mean Plt Volume 11.0 fL Unknown COMPLETE BLOOD COUNT 3814521 Neut Auto 56.6 % 9 Unknown COMPLETE BLOOD COUNT [id number] Lymph Auto 27.0 % 07/06/20 19 Unknown COMPLETE BLOOD COUNT [id number] Elliott Auto 13.7 % 9 Unknown COMPLETE BLOOD COUNT 8706074 RDW 14.6 % 9 Unknown COMPLETE BLOOD COUNT 8214248 Eos Auto 2.1 % 9 Unknown COMPLETE BLOOD COUNT 6080649 Baso Auto 0.6 % 9 Unknown COMPLETE BLOOD COUNT [id number] Neutrophil Abs 2.66 10e9/L Unknown COMPLETE BLOOD COUNT 1671467 Lymphocyte Abs 1.27 10e9/L Unknown COMPLETE BLOOD COUNT [id number] Monocyte Abs 0.64 10e9/L 06/23 Unknown COMPLETE BLOOD COUNT 3183280 Eosinophil Abs 0.10 10e9/L Unknown COMPLETE BLOOD COUNT [id number] Basophil Abs 0.03 10e9/L 06/23 Unknown COMPLETE BLOOD COUNT [id number] RDW-SD 48.7 fL 9 Unknown COMPLETE BLOOD COUNT [id number] WBC 4.6 10e9/L 06/14/20 19 Unknown COMPLETE BLOOD COUNT [id number] RBC 4.16 10e12/L 2018 Unknown COMPLETE BLOOD COUNT 3212522 HEMOGLOBIN 12.6 g/dL 06/14/20 19 Unknown COMPLETE BLOOD COUNT [id number] HEMATOCRIT 39.1 % 06/14/20 19 Unknown COMPLETE BLOOD COUNT [id number] MCV 94.0 fL 9 Unknown COMPLETE BLOOD COUNT 3996510 MCH 30.3 pg 9 Unknown COMPLETE BLOOD COUNT 8443807 MCHC 32.2 g/dL 9 Unknown COMPLETE BLOOD COUNT 1068782 PLATELET COUNT 167 10e9/L Unknown COMPLETE BLOOD COUNT 7138703 Mean Plt Volume 10.9 fL Unknown COMPLETE BLOOD COUNT 4331856 Neut Auto 59.6 % 9 Unknown COMPLETE BLOOD COUNT [id number] Lymph Auto 24.1 % 06/14/20 19 Unknown COMPLETE BLOOD COUNT 9886548 Elliott Auto 14.0 % 9 Unknown COMPLETE BLOOD COUNT [id number] Eos Auto 1.9 % 9 Unknown COMPLETE BLOOD COUNT 2787881 RDW 14.8 % 9 Unknown COMPLETE BLOOD COUNT 6763128 Baso Auto 0.4 % 9 Unknown COMPLETE BLOOD COUNT 7711663 Neutrophil Abs 2.74 10e9/L Unknown COMPLETE BLOOD COUNT 5019659 Lymphocyte Abs 1.11 10e9/L Unknown COMPLETE BLOOD COUNT 5801707 Monocyte Abs 0.64 10e9/L 05/24 Unknown COMPLETE BLOOD COUNT [id number] Eosinophil Abs 0.09 10e9/L Unknown COMPLETE BLOOD COUNT 2959555 RDW-SD 49.3 fL 9 Unknown COMPLETE BLOOD COUNT [id number] Basophil Abs 0.02 10e9/L 05/24 Unknown PT [id number] PT 22.3 Seconds 06/14/2019 Unknow n PT [id number] INR 1.9 06/14/2019 Unknown COMPLETE BLOOD COUNT [id number] WBC 4.0 10e9/L 05/13/20 19 Unknown COMPLETE BLOOD COUNT [id number] RBC 3.82 10e12/L 2018 Unknown COMPLETE BLOOD COUNT 6357301 HEMOGLOBIN 11.5 g/dL 05/13/20 19 Unknown COMPLETE BLOOD COUNT [id number] HEMATOCRIT 36.4 % 05/13/20 19 Unknown COMPLETE BLOOD COUNT 6524670 MCV 95.3 fL 9 Unknown COMPLETE BLOOD COUNT 0397198 MCH 30.1 pg 9 Unknown COMPLETE BLOOD COUNT 0629395 MCHC 31.6 g/dL 9 Unknown COMPLETE BLOOD COUNT 8271021 PLATELET COUNT 175 10e9/L Unknown COMPLETE BLOOD COUNT 2408965 Mean Plt Volume 10.5 fL Unknown COMPLETE BLOOD COUNT 4346051 Neut Auto 63.2 % 9 Unknown COMPLETE BLOOD COUNT [id number] Lymph Auto 22.0 % 05/13/20 19 Unknown COMPLETE BLOOD COUNT [id number] Elliott Auto 12.1 % 9 Unknown COMPLETE BLOOD COUNT 9485456 RDW 14.9 % 9 Unknown COMPLETE BLOOD COUNT 1347361 Eos Auto 2.2 % 9 Unknown COMPLETE BLOOD COUNT [id number] Baso Auto 0.5 % 9 Unknown COMPLETE BLOOD COUNT 2440564 Neutrophil Abs 2.53 10e9/L Unknown COMPLETE BLOOD COUNT [id number] Lymphocyte Abs 0.88 10e9/L Unknown COMPLETE BLOOD COUNT [id number] Monocyte Abs 0.48 10e9/L 04/24 Unknown COMPLETE BLOOD COUNT [id number] Eosinophil Abs 0.09 10e9/L Unknown COMPLETE BLOOD COUNT 2861237 RDW-SD 49.6 fL 9 Unknown COMPLETE BLOOD COUNT [id number] Basophil Abs 0.02 10e9/L 04/24 Unknown COMPREHENSIVE METABOLIC 28313 AST 18 U/L 2018 Unknown COMPREHENSIVE METABOLIC 05193 ALT 14 U/L 2018 Unknown COMPREHENSIVE METABOLIC 06109 BUN 15 mg/dL 2018 Unknown COMPREHENSIVE METABOLIC 51292 ALBUMIN 4.0 g/dL 2018 Unknown COMPREHENSIVE METABOLIC 45023 CHLORIDE 108 mmol/L 05/13 Unknown COMPREHENSIVE METABOLIC 16341 Bili Total 0.9 mg/dL 05/13 Unknown COMPREHENSIVE METABOLIC 10436 ALK PHOS 84 U/L 2018 Unknown COMPREHENSIVE METABOLIC 38278 SODIUM 142 mmol/L 05/13 Unknown COMPREHENSIVE METABOLIC 08154 CREATININE 0.72 mg/dL 04/24 Unknown COMPREHENSIVE METABOLIC 33993 CALCIUM 8.9 mg/dL 2018 Unknown COMPREHENSIVE METABOLIC 60529 POTASSIUM 4.0 mmol/L 05/13 Unknown COMPREHENSIVE METABOLIC 95661 Total Protein 5.5 g/dL Unknown COMPREHENSIVE METABOLIC 00761 Glucose 95 mg/dL 2018 Unknown COMPREHENSIVE METABOLIC 24124 Bicarbonate 27 mmol/L 04/24 Unknown COMPREHENSIVE METABOLIC 73376 AGAP 7 mmol/L 2018 Unknown GFR CALC [id number] GFR Non Afr Amr >60 mL/min 05/13/2019 Un known GFR CALC [id number] GFR Afr Amr >60 mL/min 05/13/2019 Unknow n THYROID STIMULATING HORMONE 57919 TSH 2.669 uIU/mL 05/13/2019 Unknown FREE T4 70860 T4 Free 1.19 ng/dL 05/13/2019 Unknown PT [id number] PT 24.2 Seconds 05/06/2019 Unknow n PT [id number] INR 2.1 05/06/2019 Unknown PT [id number] PT 24.1 Seconds 03/08/2019 Unknow n PT [id number] INR 2.9 03/08/2019 Unknown Procedures Procedure Codes Date ROUTINE VENIPUNCTURE CPT-4: 08260 07/19/2021 PROTHROMBIN TIME CPT-4: 62258 07/19/2021 ROUTINE VENIPUNCTURE CPT-4: 83155 06/20/2021 COMPREHEN METABOLIC PANEL CPT-4: 00976 06/20/2021 COMPLETE CBC W/AUTO DIFF WBC CPT-4: 53244 06/20/2021 PROTHROMBIN TIME CPT-4: 69841 06/20/2021 PT CPT-4: 1021106 05/16/2021 ROUTINE VENIPUNCTURE CPT-4: 31347 05/16/2021 ROUTINE VENIPUNCTURE CPT-4: 04099 04/11/2021 PROTHROMBIN TIME CPT-4: 80214 04/11/2021 ASSAY OF FREE THYROXINE CPT-4: 76525 04/11/2021 ASSAY THYROID STIM HORMONE CPT-4: 44155 04/11/2021 ROUTINE VENIPUNCTURE CPT-4: 54763 03/15/2021 PT CPT-4: 3539562 03/15/2021 ROUTINE VENIPUNCTURE CPT-4: 15968 02/22/2021 COMPREHEN METABOLIC PANEL CPT-4: 25635 02/22/2021 ASSAY OF FREE THYROXINE CPT-4: 67414 02/22/2021 ASSAY THYROID STIM HORMONE CPT-4: 23634 02/22/2021 COMPLETE CBC W/AUTO DIFF WBC CPT-4: 40050 02/22/2021 PROTHROMBIN TIME CPT-4: 27883 02/22/2021 LIPID PANEL CPT-4: 97058 02/22/2021 PPPS, subseq visit CPT-4: G0439 09/26/2020 ROUTINE VENIPUNCTURE CPT-4: 01539 05/23/2020 PROTHROMBIN TIME CPT-4: 22852 05/23/2020 ROUTINE VENIPUNCTURE CPT-4: 75511 01/20/2020 PT CPT-4: 4103136 01/20/2020 ROUTINE VENIPUNCTURE CPT-4: 17918 12/15/2019 PROTHROMBIN TIME CPT-4: 78847 12/15/2019 ROUTINE VENIPUNCTURE CPT-4: 71994 11/10/2019 PROTHROMBIN TIME CPT-4: 90223 11/10/2019 PROTHROMBIN TIME CPT-4: 54518 10/26/2019 ROUTINE VENIPUNCTURE CPT-4: 26397 10/26/2019 ROUTINE VENIPUNCTURE CPT-4: 47751 10/11/2019 PT CPT-4: 5774557 10/11/2019 PPPS, initial visit CPT-4: G0438 09/20/2019 ROUTINE VENIPUNCTURE CPT-4: 82584 09/08/2019 PT CPT-4: 6210798 09/08/2019 THER/PROPH/DIAG INJ SC/IM CPT-4: 37865 09/08/2019 TRIAMCINOLONE ACET INJ NOS CPT-4: J3301 09/08/2019 ROUTINE VENIPUNCTURE CPT-4: 75578 07/29/2019 PT CPT-4: 0420328 07/29/2019 ROUTINE VENIPUNCTURE CPT-4: 20175 07/18/2019 PT CPT-4: 6348480 07/18/2019 METABOLIC PANEL TOTAL CA CPT-4: 30216 07/06/2019 COMPLETE CBC W/AUTO DIFF WBC CPT-4: 89536 07/06/2019 PROTHROMBIN TIME CPT-4: 63257 07/06/2019 ROUTINE VENIPUNCTURE CPT-4: 96018 06/14/2019 PROTHROMBIN TIME CPT-4: 79328 06/14/2019 COMPLETE CBC W/AUTO DIFF WBC CPT-4: 41357 06/14/2019 ROUTINE VENIPUNCTURE CPT-4: 51473 05/13/2019 COMPREHEN METABOLIC PANEL CPT-4: 95322 05/13/2019 COMPLETE CBC W/AUTO DIFF WBC CPT-4: 76324 05/13/2019 ASSAY THYROID STIM HORMONE CPT-4: 42301 05/13/2019 ASSAY OF FREE THYROXINE CPT-4: 98181 05/13/2019 PT CPT-4: 7965169 05/06/2019 ROUTINE VENIPUNCTURE CPT-4: 51249 05/06/2019 PT CPT-4: 2712138 04/07/2019 ROUTINE VENIPUNCTURE CPT-4: 44075 04/07/2019 ROUTINE VENIPUNCTURE CPT-4: 63838 03/08/2019 PROTHROMBIN TIME CPT-4: 48120 03/08/2019 Vital Signs Date Vital 08/20/2021 Blood Pressure 1: 127/69 Code: 8480-6 Heart Rate 1: 84 bpm Respiratory Rate: 17 bpm SpO2: 98% Temperature: 36.7 (C) / 98.1 (F) We ight: 208 lbs Code: 59049-4 05/16/2021 Blood Pressure 1: 136/64 Code: 8480-6 BMI: 37.0 Code: 69648-6 Heart Rate 1: 61 bpm Height: 5'3" Code: 8302-2 Respiratory Rate: 16 bpm SpO2: 98% Temperature: 36.2 (C) / 97.1 (F) Weight: 212 lbs Code: 46387-1 03/05/2021 Blood Pressure 1: 134/76 Code: 8480-6 Heart Rate 1: 66 bpm Respiratory Rate: 16 bpm SpO2: 100% Temperature: 37.1 (C) / 98.7 (F) We ight: 203 lbs Code: 77207-7 02/19/2021 Blood Pressure 1: 126/70 Code: 8480-6 BMI: 35.4 Code: 69688-5 Heart Rate 1: 72 bpm Height: 5'3" Code: 8302-2 Respiratory Rate: 16 bpm SpO2: 99% Temperature: 36.3 (C) / 97.3 (F) Weight: 203 lbs Code: 53021-2 01/16/2021 Blood Pressure 1: 112/74 Code: 8480-6 Heart Rate 1: 76 bpm Respiratory Rate: 20 bpm Temperature: 36.7 (C) / 98.0 (F) Weight: 205 lbs Code : 32906-6 11/19/2020 Blood Pressure 1: 120/78 Code: 8480-6 Heart Rate 1: 88 bpm Temperature: 36.6 (C) / 97.8 (F) 11/12/2020 Blood Pressure 1: 110/57 Code: 8480-6 Heart Rate 1: 68 bpm Respiratory Rate: 15 bpm SpO2: 100% Weight: 202 lbs Code: 92135 -7 10/12/2020 Blood Pressure 1: 114/70 Code: 8480-6 Heart Rate 1: 84 bpm Respiratory Rate: 18 bpm SpO2: 98% Temperature: 36.7 (C) / 98.0 (F) 09/26/2020 Blood Pressure 1: 120/72 Code: 8480-6 BMI: 35.2 Code: 64784-3 Heart Rate 1: 76 bpm Height: 5'3" Code: 8302-2 Respiratory Rate: 20 bpm SpO2: 97% Temperature: 36.7 (C) / 98.0 (F) Weight: 202 lbs Code: 15757-5 08/27/2020 Blood Pressure 1: 126/82 Code: 8480-6 Heart Rate 1: 80 bpm Respiratory Rate: 20 bpm Temperature: 36.2 (C) / 97.1 (F) Weight: 198 lbs Code : 21487-5 05/23/2020 Blood Pressure 1: 120/78 Code: 8480-6 Heart Rate 1: 68 bpm Respiratory Rate: 20 bpm SpO2: 97% Temperature: 36.4 (C) / 97.5 (F) We ight: 200 lbs Code: 86420-1 05/02/2020 Blood Pressure 1: 133/81 Code: 8480-6 Heart Rate 1: 74 bpm Weight: 202 lbs Code: 89399-9 12/15/2019 Blood Pressure 1: 126/82 Code: 8480-6 Heart Rate 1: 64 bpm Respiratory Rate: 20 bpm SpO2: 97% Temperature: 36.6 (C) / 97.8 (F) We ight: 201 lbs Code: 08380-2 11/03/2019 Blood Pressure 1: 142/82 Code: 8480-6 [...] / 98.1 (F) Weight: 204 lbs Code: 70838-5 09/20/2019 Blood Pressure 1: 122/68 Code: 8480-6 BMI: 35.0 Code: 63295-4 Heart Rate 1: 72 bpm Height: 5'3" Code: 8302-2 Respiratory Rate: 18 bpm SpO2: 95% Temperature: 36.8 (C) / 98.3 (F) Weight: 201 lbs Code: 73268-5 09/08/2019 Blood Pressure 1: 118/72 Code: 8480-6 Heart Rate 1: 82 bpm SpO2: 97% Temperature: 36.3 (C) / 97.4 (F) Weight: 208 lbs Code: 43593-6 06/14/2019 Blood Pressure 1: 128/84 Code: 8480-6 Heart Rate 1: 72 bpm Respiratory Rate: 20 bpm SpO2: 98% Temperature: 36.7 (C) / 98.1 (F) We ight: 209 lbs Code: 07103-1 05/13/2019 Blood Pressure 1: 144/90 Code: 8480-6 Heart Rate 1: 88 bpm Respiratory Rate: 24 bpm SpO2: 96% Temperature: 37.1 (C) / 98.8 (F) We ight: 210 lbs Code: 20051-1 05/02/2019 Blood Pressure 1: 128/80 Code: 8480-6 Heart Rate 1: 84 bpm Respiratory Rate: 20 bpm SpO2: 95% Temperature: 36.6 (C) / 97.9 (F) We ight: 209 lbs Code: 65310-6 03/22/2019 Blood Pressure 1: 122/70 Code: 8480-6 He art Rate 1: 85 bpm 03/08/2019 Blood Pressure 1: 114/78 Code: 8480-6 BMI: 36.1 Code: 24220-7 Heart Rate 1: 76 bpm Height: 5'3" Code: 8302-2 Respiratory Rate: 20 bpm SpO2: 97% Temperature: 37.1 (C) / 98.8 (F) Weight: 207 lbs Code: 24404-1 Functional Status No Functional Status data Reason [...] Left breast lump[ICD10: N63.20] Remedios ANGELES CPT-4: 79568 08/20/2021 ([id number]) NURSE/OUTPATIENT VISIT EST Diagnosis: Long-term (current) use of anticoagulants, INR goal 2.0-3.0[ICD10: Z79.01] Jeanie JENNINGSLINE David BLACK [facility] CPT-4: 59724 07/19/2021 ([id number]) NURSE/OUTPATIENT VISIT EST Diagnosis: Essential (primary) hypertension[ICD10: I10] Diagnosis: Chronic atrial fibrillation[ICD10: I48.20] Diagnosis: Long-term (current) use of anticoagulants, INR goal 2.0-3.0[ICD10: Z79.01] Diagnosis: Anemia, unspecified[ICD10: D64.9] Jeanie TURK Fidel BLACK [facility] CPT-4: 00008 06/20/2021 ([id number]) OFFICE/OUTPATIENT VISIT EST Diagnosis: Long-term (current) use of anticoagulants, INR goal 2.0-3.0[ICD10: Z79.01] Diagnosis: Essential (primary) hypertension[ICD10: I10] Diagnosis: Chronic congestive heart failure with left ventricular diastolic dysfunction[ICD10: I50.32] Diagnosis: Severe obesity (BMI 35.0-39.9) with comorbidity[ICD10: E66.01] Diagnosis: Chronic atrial fibrillation[ICD10: I48.20] Diagnosis: Obstructive sleep apnea syndrome[ICD10: G47.33] Remedios Buenrostrohollis JEANIE BLACK [employer] CPT-4: 81247 05/16/2021 ([id number]) NURSE/OUTPATIENT VISIT EST Diagnosis: Hypothyroidism, unspecified[ICD10: E03.9] Diagnosis: Long-term (current) use of anticoagulants, INR goal 2.0-3.0[ICD10: Z79.01] Jeanie Avendañonela JEANIE David BLACK [employer] CPT-4: 98752 04/11/2021 ([id number]) NURSE/OUTPATIENT VISIT EST Diagnosis: Long-term (current) use of anticoagulants, INR goal 2.0-3.0[ICD10: Z79.01] Jeanie Avendañonela JEANIE David BLACK [employer] CPT-4: 22714 03/15/2021 ([id number]) OFFICE/OUTPATIENT VISIT EST Diagnosis: Essential hypertension[ICD10: I10] Diagnosis: Cheilitis[ICD10: K13.0] Diagnosis: Pulmonary hypertension[ICD10: I27.20] Jeanie Donisanirudh ANTON BLCAK Adwings [facility] CPT-4: 13071 03/05/2021 ([id number]) NURSE/OUTPATIENT VISIT EST Diagnosis: Essential (primary) hypertension[ICD10: I10] Diagnosis: Hypothyroidism, unspecified[ICD10: E03.9] Diagnosis: Long-term (current) use of anticoagulants, INR goal 2.0-3.0[ICD10: Z79.01] Diagnosis: Mixed hyperlipidemia[ICD10: E78.2] Jeanie JENNINGSPARAG RAFI David BLACK [employer] CPT-4: 06287 02/22/2021 ([id number]) OFFICE/OUTPATIENT VISIT EST Diagnosis: Cheilitis[ICD10: K13.0] Diagnosis: Encounter for medication review and counseling[ICD10: Z71.89] Diagnosis: Long-term (current) use of anticoagulants, INR goal 2.0-3.0[ICD10: Z79.01] Diagnosis: Hypothyroidism, unspecified[ICD10: E03.9] Diagnosis: Mixed hyperlipidemia[ICD10: E78.2] Diagnosis: Severe obesity (BMI 35.0-39.9) with comorbidity[ICD10: E66.01] Diagnosis: Chronic congestive heart failure with left ventricular diastolic dysfunction[ICD10: I50.32] Remedios JENNINGSLINE OfeAxel HECTORER [employer] CPT- 4: 99385 02/19/2021 ([id number]) OFFICE/OUTPATIENT VISIT EST Diagnosis: Cheilitis[ICD10: K13.0] Jannette JENNINGSLINE S. DONISND ER [facility] CPT-4: 18157 01/16/2021 ([id number]) OFFICE/OUTPATIENT VISIT EST Diagnosis: Hypotension[ICD10: I95.9] Diagnosis: Dizziness[ICD10: R42] Jannette Tiarraelva CONNELL S. DONISNDER DO C CPT-4: 79164 11/12/2020 ([id number]) OFFICE/OUTPATIENT VISIT EST Diagnosis: Thoracic back pain[ICD10: M54.6] Diagnosis: Dizziness[ICD10: R42] Jannette Tiarrapeg ORTEZQUELINE S. DONISNDER DO LL C CPT-4: 72152 10/12/2020 ([id number]) OFFICE/OUTPATIENT VISIT EST Diagnosis: Chronic atrial fibrillation[ICD10: I48.20] Diagnosis: Chronic airway obstruction, not elsewhere classified[ICD10: J44.9] Diagnosis: Essential hypertension[ICD10: I10] Jeanie JENNINGSPARAG RAFI David BLACK DO [facility] CPT-4: 12823 08/27/2020 ([id number]) OFFICE/OUTPATIENT VISIT EST Diagnosis: Essential (primary) hypertension[ICD10: I10] Diagnosis: Chronic atrial fibrillation[ICD10: I48.20] Diagnosis: COPD (chronic obstructive pulmonary disease)[ICD10: J44.9] Diagnosis: Dyspnea[ICD10: R06.00] Diagnosis: Left hip pain[ICD10: M25.552] Jeanie Black JEANIE David BLACK DO [facility] CPT-4: 48169 05/23/2020 ([id number]) NURSE/OUTPATIENT VISIT EST Diagnosis: Essential (primary) hypertension[ICD10: I10] Jeanie Black JEANIE David BLACK DO [facility] CPT-4: 35315 05/02/2020 ([id number]) OFFICE/OUTPATIENT VISIT EST Diagnosis: COPD (chronic obstructive pulmonary disease)[ICD10: J44.9] Diagnosis: Chronic atrial fibrillation[ICD10: I48.20] Diagnosis: Essential hypertension[ICD10: I10] Jeanie [facility] CPT-4: 66159 03/20/2020 ([id number]) NURSE/OUTPATIENT VISIT EST Diagnosis: Long-term (current) use of anticoagulants, INR goal 2.0-3.0[ICD10: Z79.01] Jeanie Black JEANIE David BLACK DO [facility] CPT-4: 66555 01/20/2020 ([id number]) OFFICE/OUTPATIENT VISIT EST Diagnosis: COPD (chronic obstructive pulmonary disease)[ICD10: J44.9] Diagnosis: Long-term (current) use of anticoagulants, INR goal 2.0-3.0[ICD10: Z79.01] Diagnosis: History of recent fall[ICD10: Z91.81] Jeanie AGUILERA OfeAxel VARUN MCCURDY [facility] CPT-4: 85598 12/15/2019 ([id number]) NURSE/OUTPATIENT VISIT EST Diagnosis: Long-term (current) use of anticoagulants, INR goal 2.0-3.0[ICD10: Z79.01] Jeanie BLACK DO [facility] CPT-4: 35793 11/10/2019 ([id number]) OFFICE/OUTPATIENT VISIT EST Diagnosis: Post concussion syndrome[ICD10: F07.81] Diagnosis: Head contusion[ICD10: S00.93XA] Diagnosis: Chronic airway obstruction, not elsewhere classified[ICD10: J44.9] Jeanie BLACK DO REH CPT-4: 21242 11/03/2019 ([id number]) OFFICE/OUTPATIENT VISIT EST Diagnosis: Fall as cause of accidental injury at home as place of occurrence[ICD10: W19.XXXA] Diagnosis: Headache[ICD10: R51] Diagnosis: Essential (primary) hypertension[ICD10: I10] Diagnosis: Long-term (current) use of anticoagulants, INR goal 2.0-3.0[ICD10: Z79.01] Diagnosis: Ecchymosis of left eye[ICD10: S05.12XA] Jannette BLACK [employer] CPT-4: 22635 10/31/2019 ([id number]) NURSE/OUTPATIENT VISIT EST Diagnosis: Long-term (current) use of anticoagulants, INR goal 2.0-3.0[ICD10: Z79.01] Jeanie BLACK DO REH CPT-4: 28790 10/26/2019 ([id number]) OFFICE/OUTPATIENT VISIT EST Diagnosis: Long-term (current) use of anticoagulants, INR goal 2.0-3.0[ICD10: Z79.01] Diagnosis: Pain in right arm[ICD10: M79.601] Diagnosis: Radiculopathy of arm[ICD10: M54.10] Jannette BLACK [employer] CPT-4: 50531 10/11/2019 ([id number]) OFFICE/OUTPATIENT VISIT EST Diagnosis: Long-term (current) use of anticoagulants, INR goal 2.0-3.0[ICD10: Z79.01] Diagnosis: Sinusitis[ICD10: J32.9] Diagnosis: Pain in right arm[ICD10: M79.601] Jannette BLACK [employer] CPT-4: 55337 09/08/2019 ([id number]) NURSE/OUTPATIENT VISIT EST Diagnosis: Chronic atrial fibrillation[ICD10: I48.2] Diagnosis: Encounter for therapeutic drug level monitoring[ICD10: Z51.81] Jeanie BLACK DO [facility] CPT-4: 85226 07/29/2019 ([id number]) NURSE/OUTPATIENT VISIT EST Diagnosis: Chronic atrial fibrillation[ICD10: I48.2] Diagnosis: Encounter for therapeutic drug level monitoring[ICD10: Z51.81] Jeanie BLACK [facility] CPT-4: 35079 07/18/2019 ([id number]) NURSE/OUTPATIENT VISIT EST Diagnosis: Encounter for therapeutic drug level monitoring[ICD10: Z51.81] Diagnosis: Chronic atrial fibrillation[ICD10: I48.2] Diagnosis: Essential (primary) hypertension[ICD10: I10] Jeanie BLACK [employer] CPT-4: 85672 07/06/2019 ([id number]) OFFICE/OUTPATIENT VISIT EST Diagnosis: Encounter for therapeutic drug level monitoring[ICD10: Z51.81] Diagnosis: Anemia, unspecified[ICD10: D64.9] Diagnosis: Bitten by dog, sequela[ICD10: W54.0XXS] 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] Jeanie BLACK [employer] CPT-4: 30510 06/14/2019 ([id number]) OFFICE/OUTPATIENT VISIT EST Diagnosis: Bitten by dog, sequela[ICD10: W54.0XXS] Diagnosis: Other fatigue[ICD10: R53.83] Diagnosis: Hypothyroidism, unspecified[ICD10: E03.9] Diagnosis: Muscle weakness (generalized)[ICD10: M62.81] Diagnosis: Generalized anxiety disorder[ICD10: F41.1] Jannette BLACK [facility] CPT-4: 56475 05/13/2019 ([id number]) NURSE/OUTPATIENT VISIT EST Diagnosis: Encounter for therapeutic drug level monitoring[ICD10: Z51.81] Jeanie CONNELL OfeAxel VARUN [facility] CPT-4: 88381 05/06/2019 ([id number]) OFFICE/OUTPATIENT VISIT EST Diagnosis: Bitten by dog, sequela[ICD10: W54.0XXS] Diagnosis: Pain in right wrist[ICD10: M25.531] Diagnosis: Abrasion of right upper arm, sequela[ICD10: S40.811S] Diagnosis: Abrasion of left upper arm, sequela[ICD10: S40.812S] Jannette Mayen JEANIE OfeAxel VARUN [facility] CPT-4: 64149 05/02/2019 ([id number]) NURSE/OUTPATIENT VISIT EST Diagnosis: Encounter for therapeutic drug level monitoring[ICD10: Z51.81] Jeanie CONNELL OfeAxel VARUN [facility] CPT-4: 18897 04/07/2019 ([id number]) OFFICE/OUTPATIENT VISIT NEW Diagnosis: Encounter for therapeutic drug level monitoring[ICD10: Z51.81] Diagnosis: Chronic atrial fibrillation[ICD10: I48.2] Diagnosis: Essential (primary) hypertension[ICD10: I10] Diagnosis: Abnormal findings on diagnostic imaging of heart and coronary circulation[ICD10: R93.1] Diagnosis: Other forms of dyspnea[ICD10: R06.09] Diagnosis: Hypothyroidism, unspecified[ICD10: E03.9] Diagnosis: Mixed hyperlipidemia[ICD10: E78.2] Jeanie MCKEE OfeAxel VARUN [facility] CPT-4: 93133 03/08/2019 Plan of Care Planned Activity Notes Codes Status Date Visit Diagnosis Plan: Left breast lump Discussion: Jonas [place] get US of left breast and soft tissue under breast and f/u with results. F/U for sooner for concerns. ICD-9 : 611.72 ICD-10 : N63.20 08/20/2021 App[facility]ment: Jean[facility]el[phone] [facility] [id number] US CANCELED 08/20/2021 Appointment: Remedios Cavazos [facility]el[facility] [phone] [facility] [facility] 08/20/2021 Patient Education: Patient Medication Summary Completed 08/20/2021 Appointment: Jeanie Black WPtel: [address] [place], [place] [address] see note in chart from 08/08/21 (km) CANCELED 08/08/2021 Appointment: Jeanie Black WPtel: [phone] [facility] US LAB 07/19/2021 Appointment: Jeanie Black WPtel: [address] [place], [place] [phone] US LAB 06/20/2021 Visit Diagnosis Plan: Severe [...] 05/16/2021 Appointment: Remedios Cavazos [facility]Ptel[facility] [phone] [facility] [facility] MEDICATION REVIEW 05/16/2021 Patient Education: Patient Medication Summary Completed 05/16/2021 Patient Education: isosorbide mononitrate- Opt[employer] Coupon [id number] https://www.[employer]/Cambiatta/resources/getResourPractice Fusion/61/b6b7r1z7-z533-491b-m5 Completed 05/16/2021 Patient Education: High Blood Pressure Co mpleted 05/16/2021 Appointment: Jeanie Black WPtel: [address] [place], [place] [phone] US LAB 04/11/2021 Appointment: Jeanie Black WPtel: [address] [place], [place] [phone] US CANCELED 03/27/2021 Appointment: Jeanie Black WPtel: [address] [place], [place] [phone] US LAB 03/15/2021 Visit Diagnosis Plan: Pulmonary [...] : I10 03/05/2021 Appointment: Jeanie Black WPtel: [address] [place], [place] [phone] US FOLLOW UP 03/05/2021 Patient Education: spironolactone- [employer] Coupon 1 [id number] https://www.[employer]/Cambiatta/resources/getResource/61/9zo74pj8-4n3o-4i37-9i Completed 03/05/2021 Appointment: Jeanie Black WPtel: [phone] Bharat[address] Silva [id number] US LAB 02/22/2021 Visit Diagnosis Plan: Cheilitis [...] 02/19/2021 Appointment: Remedios Cavazos WPtel: [phone] MEDICATION REVIEW 02/19/2021 Patient Education: Patient [...] : K13.0 01/16/2021 Appointment: Jannette Mayen [address] [place] [address] ACUTE ILLNESS 01/16/2021 Appointment: Jeanie Black WPtel: [phone] BP CHECK 11/19/2020 Visit Diagnosis Plan: [...] : I95.9 11/12/2020 Appointment: Jannette Mayen [address] [place] [address] ACUTE ILLNESS 11/12/2020 Visit Diagnosis Plan: Thoracic [...] Appointment: Jannette Mayen [address] [facility]66[facility] ACUTE ILLNESS 10/12/2020 Visit Diagnosis Plan: Chronic atrial fibrillation Disc ussion: Following routinely with cardiology ICD-9 : 427.31 ICD-10 : I48.20 09/26/2020 Visit Diagnosis Plan: Essential (primary) hypertension Discussion: Stable ICD-9 : 401.9 ICD-10 : I10 09/26/2020 Visit Diagnosis Plan: Encounter for [facility] adult medical examination without [...] : I50.32 09/26/2020 Appointment: Jeanie Black WPtel: [facility] [place] [id number] Annual Well Visit 09/26/2020 Care Plan: Referral Order SNOMED-CT : 30 [id number] Pending 09/26/2020 Visit Diagnosis Plan: Chronic airway [...] I48.20 08/27/2020 Appointment: Jeanie Black WPtel: [phone] [facility] US FOLLOW UP 08/27/2020 Visit Diagnosis Plan: [...] : I10 05/23/2020 Appointment: Jeanie Black WPtel: [address] [place], [place] [phone] FOLLOW UP 05/23/2020 Appointment: Jeanie Black WPtel: [address] [place] [address] NURSE SERVICES 05/02/2020 Visit Diagnosis Plan: Chronic [...] : J44.9 03/20/2020 Appointment: Jeanie Black WPtel: [address] [place], [place] [phone] TELEMEDICINE 03/20/2020 Patient Education: Coumadin- OptimizeRX Coupon [id number] https://www.Cambiatta.Neofonie/sampleAustral 3D/resources/getResource/61/2a797d51-87b3-9xmb-1e Completed 03/20/2020 Patient Education: Coumadin- OptimizeRX Coupon [id number] https://www.[employer]/sampleAustral 3D/resources/getResource/61/5oa30k4h-2k1k-7no9-uh Completed 03/20/2020 Appointment: Jeanie Black WPtel: [address] [place], [place] [id number] US LAB 01/20/2020 Visit Diagnosis Plan: History [...] : Z79.01 12/15/2019 Appointment: Jeanie Black WPtel: [address] [place], [place] [phone] US FOLLOW UP 12/15/2019 Patient Education: Coumadin- OptimizeRX Coupon [id number] 5 https://www.Nanotherapeutics/samplemd/resources/getResource/61/z914jsgr-xj59-0spi-7r Completed 12/15/2019 Appointment: Jeanie Black WPtel: [address] [place], [place] [phone] US LAB 11/10/2019 Visit Diagnosis Plan: Post [...] J44.9 11/03/2019 Appointment: Jeanie Black WPtel: [phone] FOLLOW UP 11/03/2019 Care Plan: CT HEAD/BRAIN W/O DYE LOINC : 07089-5 Pending 11/01/2019 Visit Diagnosis Plan: Essential (primary) [...] ICD-10 : S05.12XA 10/31/2019 Appointment: Jannette Mayen [address] [place] [address] Follow Up 10/31/2019 Patient Education: High Blood Pressure Co mpleted 10/31/2019 Patient Education: losartan- OptimizeRX Coupon [id number] 5 https://www.Cambiatta.com/samplemd/resources/getResource/61/2q630580-2i89-2001-0u Completed 10/31/2019 Appointment: Jeanie Black WPtel: [phone] [place] [id number] FOLLOW UP 10/26/2019 Visit Diagnosis Plan: Long-term [...] ICD-10 : M54.10 10/11/2019 Appointment: Jannette Mayen [address] [place], [place] [id number] ACUTE ILLNESS 10/11/2019 Patient Education: cyclobenzaprine- OptimizeRX Coupon [id number] https://www.Cambiatta.Neofonie/samplemd/resources/getResource/61/58k4v7p8-18h1-5v73-59 Completed 10/11/2019 Visit Diagnosis Plan: Bitten by dog, sequela Discussio n: Still seeing counselor Still doing therapy--left 4th finger still not agile enough to play violin and feels like pinched nerve in neck on right--dscussed stretches, massage, accupuncture---patient had hired banking attorney ICD-9 : 906.1 ICD-10 : W54.0XXS 09/20/2019 Visit Diagnosis Plan: Encounter for [facility] adult medical examination without [...] Appointment: Jeanie Black WPtel: [phone] Bhar[address] Ricardo CamfhyrlbLI[address] Annual Well Visit 09/20/2019 Visit Diagnosis Plan: [...] : Z79.01 09/08/2019 Appointment: Jannette Mayen [address] [place] [address] ACUTE ILLNESS 09/08/2019 Appointment: Jeanie Black WPtel: [address] [place] [address] US CANCELED 08/16/2019 Appointment: Jeanie Black WPtel: [address] [place] [address] US LAB 07/29/2019 Appointment: Jeanie Black WPtel: [address] [place] [address] US LAB 07/18/2019 Appointment: Jeanie Black WPtel: [address] [place] [address] US LAB 07/06/2019 Visit Diagnosis Plan: Bitten [...] : D64.9 06/14/2019 Appointment: Jeanie Black WPtel: [facility] [place] Ric[place] [id number] US FOLLOW UP 06/14/2019 Visit Diagnosis Plan: [...] hydrocodone several days ago. will refer to [facility] as well to [...] : R53.83 05/13/2019 Appointment: Jannette Mayen Christina [address] [place], [place] [address] FOLLOW UP 05/13/2019 Patient Education: carvedilol- OptimizeRX Coupon [id number] https://www.samplemd.com/samplemd/resources/getResource/61/20i8e117-0kqv-4707-3c Completed 05/13/2019 Patient Education: Xanax- OptimizeRX Coupon [id number] https://www.samplemd.com/samplemd/resources/getResource/61/0799l7u9-6f24-8f0a-a6 1e-4f36233754d0.pdf Completed 05/13/2019 Appointment: Jeanie Black WPtel: [address] [place] [address] US LAB 05/06/2019 Visit Diagnosis Plan: Abrasion [...] : M25.531 05/02/2019 Appointment: Jannette Mayen [address] [place] [address] ACUTE ILLNESS 05/02/2019 Care Plan: X-RAY EXAM OF WRIST right LOINC : 3 7302-7 Pending 05/02/2019 Appointment: Jeanie Black WPtel: [address] [place], [place] [phone] US LAB 04/07/2019 Appointment: Jeanie Black WPtel: [address] [place] [address] US BP CHECK 03/22/2019 Visit Diagnosis Plan: [...] I10 03/08/2019 Appointment: Jeanie Black WPtel: [phone] [facility] NEW PATIENT 03/08/2019 Referral: Shona Viera WPtel: [facility] [address] [facility] Referral Appointment Requested Instructions No Instructions Medical Equipment No Medical Equipment data Health Concerns Section Health Concerns data not found Goals Section Goals data not found Interventions Section Interventions data not found Health Status Evaluations/Outcomes Section Health Status Evaluations/Outcomes data not found Advance Directives No Advance Directive data
--- OUTSIDE RECORDS SUMMARY | 2021-09-19 12:42 | XMS REPORT | CCD ---
Author Author Tricia Black D.O. Organization [facility] Address [address] [place] [address] Phone Care Team Providers Care Executive Director Name Role Phone PP Unavailable CCM Unavailable Summary Purpose Interface Exchange Insurance Providers Payer name Policy type / Coverage type Covered democrat ID Effective Begin Date Effective End Date WPS MEDICARE PART B [place] Medicare Part B [id number] Unknown Unknown AARP Medicare Part B [id number] Unknown Unknown Family history Grandmother Diagnosis Age [...] Unknown Retired 03/08/[address]: 162386943 Has never smoked or chewed tobacco 03/08/[address]: 755590 Currently drinks alcohol 03/08 Has the patient [...] Start Date Stop Date Status Fill Instructions amoxicillin 500 mg capsule RxNorm: 998578 4 Capsule(s) Oral QD 1hr prior to dental cleaning 08/05/2021 08/05/2021 Inactive levothyroxine 50 mcg tablet RxNorm: 299877 TAKE 1 TABLE T BY MOUTH EVERY DAY. RECHECK LABS IN 2 MONTHS 08/04/2021 10/02/2021 Active potassium chloride ER 10 mEq tablet,extended release RxNorm: 805240 TAKE 1 TABLET BY MOUTH EVERY DAY 07/14/2021 10/11/2021 Active spironolactone 25 mg tablet RxNorm: 600089 1/2 Tablet(s) Oral QD No Stop Date Active isosorbide mononitrate ER 30 mg tablet,extended release 24 h r RxNorm: 719695 TABLET(S) 1 TABLET(S) PO NEEDED Tablet(s) Oral 05/16/2021 11/11/2021 Active Patient requests 90 days supply isosorbide mononitrate 10 mg tablet RxNorm: 475122 Take 1 Tablet(s) Oral two times a day 05/16/2021 05/16/2021 Inactive furosemide 40 mg tablet RxNorm: 002025 TAKE 1 TABLET BY MOUTH E VERY MORNING 05/07/2021 08/04/2021 Inactive isosorbide mononitrate 10 mg tablet RxNorm: 737616 Take 1 Tablet(s) Oral two times a day 04/26/2021 05/15/2021 Inactive isosorbide mononitrate 10 mg tablet RxNorm: 106631 Take 1 Tablet(s) Oral two times a day 04/25/2021 04/25/2021 Inactive potassium chloride ER 10 mEq tablet,extended release RxNorm: 536281 TAKE 1 TABLET BY MOUTH EVERY DAY 04/19/2021 04/19/2021 Inactive Coumadin 4 mg tablet RxNorm: 033952 1 Tablet(s) Oral Thursday04/11/2021 07/10/2021 Inactive Coumadin 2 mg tablet RxNorm: 188547 1 Tablet(s) Oral on Thursday and Thursday04/11/2021 07/10/2021 Inactive carvedilol 25 mg tablet RxNorm: 404508 1 Tablet(s) Oral two antolin es a day 04/03/2021 09/29/2021 Active Coumadin 2 mg tablet RxNorm: 388933 TAKE 1 TABLET BY [facility] ON THURSDAY AND Thursday03/26/2021 04/10/2021 Inactive Coumadin 4 mg tablet RxNorm: 022544 1 Tablet(s) Oral QD 02/26/2021 Inactive levothyroxine 50 mcg tablet RxNorm: 663526 1 Tablet(s) Oral QD Recheck labs in 2 months 02/26/2021 02/26/2021 Inactive Recheck labs in 2 months levothyroxine 50 mcg tablet RxNorm: 596282 1 Tablet(s) Oral QD Recheck labs in 2 months 02/26/2021 02/25/2021 Inactive Recheck labs in 2 months losartan 100 mg tablet RxNorm: 145142 TAKE 1 TABLET BY MOUTH 02/22/2021 08/20/2021 Active spironolactone 25 mg tablet RxNorm: 168918 1 Tablet(s) Oral QD 01/2303/04/2021 Inactive isosorbide mononitrate 10 mg tablet RxNorm: 721786 1 Ta blet(s) Oral two times a day 02/19/2021 02/25/2021 Inactive famotidine 20 mg tablet RxNorm: 889446 1 Tablet(s) Oral QD 02/20/2003/04/2021 Inactive levothyroxine 25 mcg tablet RxNorm: 738239 1 Tablet(s) Oral QD 07/202102/25/2021 Inactive atorvastatin 40 mg tablet RxNorm: 997485 1 Tablet(s) Or al QPM replaces pravastatin 01/29/2021 07/27/2021 Inactive furosemide 40 mg tablet RxNorm: 349966 TAKE 1 TABLET BY MOUTH E VERY MORNING 01/28/2021 01/28/2021 Inactive prednisone 10 mg tablet RxNorm: 433975 1 Tablet(s) Oral two antolin es a day 01/16/2021 01/19/2021 Inactive atorvastatin 40 mg tablet RxNorm: 390858 1 Tablet(s) Or al QPM replaces pravastatin 12/31/2020 01/28/2021 Inactive carvedilol 25 mg tablet RxNorm: 077308 TAKE 1 TABLET BY MOUTH T WICE DAILY 12/31/2020 04/02/2021 Inactive potassium chloride ER 10 mEq tablet,extended release RxNorm: 411390 TAKE 1 TABLET BY MOUTH EVERY DAY 12/31/2020 12/31/2020 Inactive losartan 100 mg tablet RxNorm: 925051 1 Tablet(s) Oral QD 12/03/2020 02/21/2021 Inactive Coumadin 4 mg tablet RxNorm: 792159 TAKE 1 TABLET BY [facility] THURSDAY THROUGH Thursday11/30/2020 02/25/2021 Inactive levothyroxine 25 mcg tablet RxNorm: 083145 1 Tablet(s) Oral QD 10/2401/28/2021 Inactive famotidine 20 mg tablet RxNorm: 246125 1 Tablet(s) Oral QD 11/19/20 20 01/15/2021 Inactive famotidine 20 mg tablet RxNorm: 426578 1 Tablet(s) Oral QD 11/19/20 20 11/18/2020 Inactive levothyroxine 50 mcg tablet RxNorm: 454138 TAKE 1 TABLET BY [facility] EVERY DAY 11/06/2020 01/29/2021 Inactive furosemide 40 mg tablet RxNorm: 758658 TAKE 1 TABLET BY MOUTH E VERY MORNING 11/05/2020 01/27/2021 Inactive atorvastatin 40 mg tablet RxNorm: 533221 1 Tablet(s) Or al QPM replaces pravastatin 10/22/2020 12/30/2020 Inactive atorvastatin 40 mg tablet RxNorm: 622651 1 Tablet(s) Or al QPM replaces pravastatin 10/22/2020 10/21/2020 Inactive spironolactone 25 mg tablet RxNorm: 177028 1 Tablet(s) Oral QAM 01/15/2021 Inactive carvedilol 25 mg tablet RxNorm: 229687 TAKE 1 TABLET BY MOUTH T WICE DAILY 10/04/2020 12/30/2020 Inactive pravastatin 40 mg tablet RxNorm: 150247 TAKE 1 TABLET BY MOUTH EVERY DAY 10/04/2020 12/31/2020 Inactive potassium chloride ER 10 mEq tablet,extended release RxNorm: 493355 TAKE 1 TABLET BY MOUTH EVERY DAY 10/04/2020 12/30/2020 Inactive isosorbide mononitrate ER 30 mg tablet,extended release 24 h r RxNorm: 016682 TABLET(S) 1 TABLET(S) PO NEEDED Oral 10/04/2020 02/18/2021 Inactive Patient requests 90 days supply furosemide 40 mg tablet RxNorm: 421342 TAKE 1 TABLET BY MOUTH E VERY MORNING 10/01/2020 11/04/2020 Inactive losartan 100 mg tablet RxNorm: 128283 TAKE 1 TABLET BY MOUTH EV RANDI DAY 09/19/2020 12/02/2020 Inactive amlodipine 5 mg tablet RxNorm: 282110 1 Tablet(s) Oral QD 08/27/2020 11/11/2020 Inactive spironolactone 25 mg tablet RxNorm: 164035 1 Tablet(s) Oral QAM 03/202010/21/2020 Inactive levothyroxine 50 mcg tablet RxNorm: 294696 TAKE 1 TABLET BY ENE TH EVERY DAY 08/07/2020 11/04/2020 Inactive levothyroxine 50 mcg tablet RxNorm: 319620 TAKE 1 TABLET BY ENE TH EVERY DAY 08/06/2020 08/06/2020 Inactive amoxicillin 500 mg capsule RxNorm: 463341 4 Capsule(s) Oral QD 1hr prior to dental cleaning 07/31/2020 07/30/2020 Inactive amoxicillin 500 mg capsule RxNorm: 176457 4 Capsule(s) Oral QD 1hr prior to dental cleaning 07/31/2020 07/31/2020 Inactive potassium chloride ER 10 mEq tablet,extended release RxNorm: 887174 TAKE 1 TABLET BY MOUTH EVERY DAY 07/23/2020 10/03/2020 Inactive pravastatin 40 mg tablet RxNorm: 981482 TAKE 1 TABLET BY MOUTH EVERY DAY 07/23/2020 10/03/2020 Inactive carvedilol 25 mg tablet RxNorm: 323807 TAKE 1 TABLET BY MOUTH T WICE DAILY 07/23/2020 10/03/2020 Inactive losartan 100 mg tablet RxNorm: 897880 TAKE 1 TABLET BY MOUTH EV RANDI DAY 06/27/2020 09/18/2020 Inactive furosemide 40 mg tablet RxNorm: 103743 TAKE 1 TABLET BY MOUTH E VERY MORNING 06/08/2020 09/30/2020 Inactive Coumadin 4 mg tablet RxNorm: 446232 1 Tablet(s) Oral Thursday06/07/2020 11/29/2020 Inactive Coumadin 2 mg tablet RxNorm: 846437 1 Tablet(s) Oral on and Thursday03/20/2020 03/19/2020 Inactive Coumadin 4 mg tablet RxNorm: 030852 1 Tablet(s) Oral Thursday03/20/2020 06/06/2020 Inactive losartan 100 mg tablet RxNorm: 873028 TAKE 1 TABLET BY MOUTH EV RANDI DAY 03/20/2020 06/26/2020 Inactive Coumadin 2 mg tablet RxNorm: 826770 1 Tablet(s) Oral on and Thursday03/20/2020 02/25/2021 Inactive furosemide 40 mg tablet RxNorm: 035283 1 Tablet(s) Oral QAM 020 06/07/2020 Inactive pravastatin 40 mg tablet RxNorm: 800274 TAKE 1 TABLET BY MOUTH EVERY DAY 02/07/2020 07/22/2020 Inactive losartan 100 mg tablet RxNorm: 031722 TAKE 1 TABLET BY MOUTH EV RANDI DAY 02/01/2020 03/19/2020 Inactive losartan 100 mg tablet RxNorm: 185875 TAKE 1 TABLET BY MOUTH EV RANDI DAY 01/17/2020 01/31/2020 Inactive Coumadin 2 mg tablet RxNorm: 996844 1 Tablet(s) Oral on and Thursday12/15/2019 12/15/2019 Inactive furosemide 40 mg tablet RxNorm: 206162 TAKE 1 TABLET BY MOUTH E VERY MORNING 12/14/2019 03/12/2020 Inactive pravastatin 40 mg tablet RxNorm: 339410 TAKE 1 TABLET BY MOUTH EVERY DAY 11/27/2019 02/06/2020 Inactive losartan 100 mg tablet RxNorm: 925468 1 Tablet(s) Oral QD 11/10/2019 01/16/2020 Inactive isosorbide mononitrate ER 30 mg tablet,extended release 24 h r RxNorm: 712588 TABLET(S) 1 TABLET(S) PO NEEDED 11/10/2019 05/08/2020 Inactive Patient requests 90 days supply carvedilol 25 mg tablet RxNorm: 706059 1 Tablet(s) Oral two antolin es a day 11/10/2019 05/08/2020 Inactive Coumadin 2 mg tablet RxNorm: 004162 1 Tablet(s) Oral on and Thursday11/10/2019 12/14/2019 Inactive losartan 100 mg tablet RxNorm: 015988 1 Tablet(s) Oral QD 11/10/2019 11/09/2019 Inactive levothyroxine 50 mcg tablet RxNorm: 994550 1 Tablet(s) Oral QD 10/2310/21/2020 Inactive Coumadin 4 mg tablet RxNorm: 694788 1 Tablet(s) Oral Thursday thr thursday11/10/2019 11/10/2019 Inactive losartan 50 mg tablet RxNorm: 877499 2 Tablet(s) Oral QD 11/01/201901/10/2019 Inactive potassium chloride ER 10 mEq capsule,extended release RxNorm : 504522 1 Capsule(s) Oral QD 10/26/2019 12/14/2019 Inactive potassium chloride ER 10 mEq tablet,extended release RxNorm: 612533 1 TABLET(S) ORAL QD 10/22/2019 04/18/2020 Inactive Replaces PA on 1 0MEQ Capsules Aspir-81 mg tablet,delayed release RxNorm: 509639 1 Tablet(s) O ral QD 10/11/2019 No Stop Date Active cyclobenzaprine 5 mg tablet RxNorm: 759401 1 Tablet(s) Oral two times a day as needed for muscle spasm 10/11/2019 03/19/2020 Inactive Coumadin 4 mg tablet RxNorm: 285375 1 Tablet(s) Oral Mo through Thursday and 1/2 tablet (2mg) on Thu/Thu10/11/2019 11/09/2019 Inactive potassium chloride ER 10 mEq tablet,extended release RxNorm: 847838 1 Tablet(s) Oral QD 09/22/2019 09/21/2019 Inactive Replaces PA on 1 0MEQ Capsules potassium chloride ER 10 mEq tablet,extended release RxNorm: 011820 1 Tablet(s) Oral QD 09/22/2019 10/10/2019 Inactive Replaces PA on 1 0MEQ Capsules potassium chloride ER 10 mEq capsule,extended release RxNorm : 945858 1 Capsule(s) Oral QD 09/21/2019 09/21/2019 Inactive carvedilol 25 mg tablet RxNorm: 693208 1 Tablet(s) Oral two antolin es a day 08/23/2019 11/09/2019 Inactive isosorbide mononitrate ER 30 mg tablet,extended release 24 h r RxNorm: 636730 TABLET(S) 1 TABLET(S) PO NEEDED 08/22/2019 10/04/2020 Inactive Patient requests 90 days supply isosorbide mononitrate ER 30 mg tablet,extended release 24 h r RxNorm: 158207 Tablet(s) 1 TABLET(S) PO NEEDED 08/16/2019 08/21/2019 Inactive Patient requests 90 days supply levothyroxine 50 mcg tablet RxNorm: 572166 1 Tablet(s) PO QD 201811/09/2019 Inactive isosorbide mononitrate ER 30 mg tablet,extended release 24 h r RxNorm: 699063 Tablet(s) 1 TABLET(S) PO NEEDED 06/27/2019 08/15/2019 Inactive Patient requests 90 days supply isosorbide mononitrate ER 30 mg tablet,extended release 24 h r RxNorm: 837889 1 Tablet(s) PO QD as needed 06/27/2019 06/27/2019 Inactive Neris ent requests 90 days supply carvedilol 25 mg tablet RxNorm: 469037 1 TABLET(S) PO BID 06/27/2019 08/22/2019 Inactive furosemide 40 mg tablet RxNorm: 023510 1 Tablet(s) PO QAM 06/21/2019 12/13/2019 Inactive carvedilol 25 mg tablet RxNorm: 598083 1 Tablet(s) PO BID 05/13/2019 06/26/2019 Inactive Xanax 0.25 mg tablet RxNorm: 800259 1/2 Tablet(s) PO Q6H as needed 05/13/2019 09/07/2019 Inactive levothyroxine 50 mcg tablet RxNorm: 792416 1 Tablet(s) PO QD 201808/07/2019 Inactive losartan 50 mg tablet RxNorm: 061719 1 Tablet(s) PO QD 04/26/2019 Inactive losartan 50 mg tablet RxNorm: 877377 1 Tablet(s) PO QD 04/20/201901/2019 Inactive pravastatin 40 mg tablet RxNorm: 617878 1 Tablet(s) PO QD 04/07/2019 06/05/2019 Inactive isosorbide mononitrate ER 30 mg tablet,extended release 24 h r RxNorm: 344114 1 Tablet(s) PO as needed 04/07/2019 04/06/2019 Inactive isosorbide mononitrate ER 30 mg tablet,extended release 24 h r RxNorm: 697458 1 TABLET(S) PO NEEDED 04/07/2019 06/26/2019 Inactive Patient requests 90 days supply losartan 50 mg tablet RxNorm: 274346 1 Tablet(s) PO QD 03/22/2019 Inactive Prolia subcutaneous RxNorm: 631645 subcutaneous 02/19/2021 A ctive carvedilol 25 mg tablet RxNorm: 930769 1 Tablet(s) PO BID 05/13/2019 05/12/2019 Inactive losartan 50 mg tablet RxNorm: 958278 1 Tablet(s) PO QD 03/22/2019 Inactive Ventolin HFA 90 mcg/actuation aerosol inhaler RxNorm: 605757 1-2 Puff(s) INH as needed 09/08/2019 09/07/2019 Inactive furosemide 40 mg tablet RxNorm: 754330 1 Tablet(s) PO QAM 06/21/2019 06/20/2019 Inactive pravastatin 40 mg tablet RxNorm: 003860 1 Tablet(s) PO QD 04/07/2019 04/06/2019 Inactive Coumadin 2 mg tablet RxNorm: 224638 1 Tablet(s) PO Mon, Fri, Sat and Sun then 2 tablets (4mg) on , Thu and 10/11/2019 10/10/2019 Inactive isosorbide mononitrate ER 30 mg tablet,extended release 24 h r RxNorm: 109970 Tablet(s) PO as needed 04/07/2019 04/06/2019 Inactive Women's Multivitamin 18 mg iron-400 mcg-500 mg tablet RxNorm : 1 Tablet(s) PO QD 09/08/2019 09/07/2019 Inactive Vitamin D3 1000 units Capsule RxNorm: 3 Capsule(s) PO QD 9 09/07/2019 Inactive vitamin B complex capsule RxNorm: 1 Capsule(s) PO QD 09/08/2019 Inactive potassium chloride ER 10 mEq capsule,extended release RxNorm : 529180 1 Capsule(s) PO QD 09/21/2019 09/20/2019 Inactive levothyroxine 50 mcg tablet RxNorm: 885963 1 Tablet(s) PO QD 201804/25/2019 Inactive Medication Administered No Medication Administered data Immunizations Vaccine Codes Date Status Influenza CVX: 135 07/06/2020 Pneumovax CVX: 33 02/03/2020 Influenza CVX: 135 07/02/2019 Results Observation Observation Code Item Item Code Result Date S ervice Location PT 5199643 PT 28.3 Seconds 07/19/2021 Unknow n PT [id number] INR 2.6 07/19/2021 Unknown COMPREHENSIVE METABOLIC 51315 AST 20 U/L 2020 Unknown COMPREHENSIVE METABOLIC 30753 ALT 16 U/L 2020 Unknown COMPREHENSIVE METABOLIC 25484 BUN 35 mg/dL 2020 Unknown COMPREHENSIVE METABOLIC 42860 ALBUMIN 4.1 g/dL 2020 Unknown COMPREHENSIVE METABOLIC 38272 CHLORIDE 105 mmol/L 06/20 Unknown COMPREHENSIVE METABOLIC 75277 Bili Total 1.1 mg/dL 06/20 Unknown COMPREHENSIVE METABOLIC 87948 ALK PHOS 103 U/L 2020 Unknown COMPREHENSIVE METABOLIC 85411 SODIUM 139 mmol/L 06/20 Unknown COMPREHENSIVE METABOLIC 40534 CREATININE 0.99 mg/dL 05/24 Unknown COMPREHENSIVE METABOLIC 39524 CALCIUM 8.8 mg/dL 2020 Unknown COMPREHENSIVE METABOLIC 00867 POTASSIUM 4.7 mmol/L 06/20 Unknown COMPREHENSIVE METABOLIC 53220 Total Protein 6.2 g/dL Unknown COMPREHENSIVE METABOLIC 31674 Glucose 83 mg/dL 2020 Unknown COMPREHENSIVE METABOLIC 28152 Bicarbonate 27 mmol/L 05/24 Unknown COMPREHENSIVE METABOLIC 13138 AGAP 7 mmol/L 2020 Unknown COMPLETE BLOOD COUNT [id number] WBC 4.5 10e9/L 06/20/20 21 Unknown COMPLETE BLOOD COUNT 7415796 RBC 3.99 10e12/L 2020 Unknown COMPLETE BLOOD COUNT 5253037 HEMOGLOBIN 11.8 g/dL 06/20/20 21 Unknown COMPLETE BLOOD COUNT 3100466 HEMATOCRIT 36.6 % 06/20/20 21 Unknown COMPLETE BLOOD COUNT [id number] MCV 91.7 fL 1 Unknown COMPLETE BLOOD COUNT 5606256 MCH 29.6 pg 1 Unknown COMPLETE BLOOD COUNT 0293357 MCHC 32.2 g/dL 1 Unknown COMPLETE BLOOD COUNT 0003647 PLATELET COUNT 180 10e9/L Unknown COMPLETE BLOOD COUNT 8134326 Mean Plt Volume 11.1 fL Unknown COMPLETE BLOOD COUNT 5524092 Neut Auto 64.7 % 1 Unknown COMPLETE BLOOD COUNT 0599637 Lymph Auto 19.6 % 06/20/20 21 Unknown COMPLETE BLOOD COUNT 1686528 Dawson Auto 13.5 % 1 Unknown COMPLETE BLOOD COUNT 8903867 RDW 15.1 % 1 Unknown COMPLETE BLOOD COUNT 7342026 Eos Auto 1.8 % 1 Unknown COMPLETE BLOOD COUNT 0003102 Baso Auto 0.4 % 1 Unknown COMPLETE BLOOD COUNT 0731684 Neutrophil Abs 2.91 10e9/L Unknown COMPLETE BLOOD COUNT [id number] Lymphocyte Abs 0.88 10e9/L Unknown COMPLETE BLOOD COUNT 8357884 Monocyte Abs 0.61 10e9/L 05/24 Unknown COMPLETE BLOOD COUNT 3398972 Eosinophil Abs 0.08 10e9/L Unknown COMPLETE BLOOD COUNT 8605353 RDW-SD 49.5 fL 1 Unknown COMPLETE BLOOD COUNT [id number] Basophil Abs 0.02 10e9/L 05/24 Unknown GFR CALC 4732944 GFR Non Afr Amr 53 mL/min 06/20/2021 Unk nown GFR CALC 2403200 GFR Afr Amr >60 mL/min 06/20/2021 Unknow n PT [id number] PT 27.4 Seconds 06/20/2021 Unknow n PT [id number] INR 2.5 06/20/2021 Unknown PT [id number] PT 25.8 Seconds 05/21/2021 Unknow n PT [id number] INR 2.3 05/21/2021 Unknown FREE T4 92305 T4 Free 1.19 ng/dL 04/11/2021 Unknown PT 3145119 PT 33.6 Seconds 04/11/2021 Unknow n PT [id number] INR 3.3 04/11/2021 Unknown THYROID STIMULATING HORMONE 40133 TSH 3.912 uIU/mL 04/11/2021 Unknown PT 5592740 PT 33.1 Seconds 03/15/2021 Unknow n PT [id number] INR 3.2 03/15/2021 Unknown PT 5280901 PT 24.6 Seconds 05/23/2020 Unknow n PT [id number] INR 2.2 05/23/2020 Unknown PT 3394749 PT 31.4 Seconds 10/26/2019 Unknow n PT [id number] INR 2.9 10/26/2019 Unknown PT [id number] PT 17.6 Seconds 10/11/2019 Unknow n PT 7344389 INR 1.4 10/11/2019 Unknown PT [id number] PT 23.7 Seconds 09/08/2019 Unknow n PT [id number] INR 2.0 09/08/2019 Unknown PT [id number] PT 23.2 Seconds 07/29/2019 Unknow n PT 8558913 INR 2.0 07/29/2019 Unknown PT [id number] PT 14.3 Seconds 07/18/2019 Unknow n PT [id number] INR 1.1 07/18/2019 [place] [address] Glucose 75 mg/dL 07/06 [place] [address] CREATININE 0.61 mg/dL [place] [address] BUN 15 mg/dL 07/06 [place] [address] SODIUM 142 mmol/L 06/23 [place] [address] POTASSIUM 4.0 mmol/L 06/23 [place] [address] CHLORIDE 106 mmol/L 06/23 [place] [address] Bicarbonate 28 mmol/[place] [address] AGAP 8 mmol/L 07/06 [place] [address] CALCIUM 9.3 mg/dL 07/06 Unknown PT [id number] PT 17.4 Seconds 07/06/2019 Unknow n PT 7175621 INR 1.4 07/06/2019 Unknown GFR CALC 4910237 GFR Non Afr Amr >60 mL/min 07/06/2019 Un known GFR CALC 0468793 GFR Afr Amr >60 mL/min 07/06/2019 Unknow n COMPLETE BLOOD COUNT 0599387 WBC 4.7 10e9/L 07/06/20 19 Unknown COMPLETE BLOOD COUNT 8757902 RBC 4.19 10e12/L 2018 Unknown COMPLETE BLOOD COUNT 8854347 HEMOGLOBIN 12.6 g/dL 07/06/20 19 Unknown COMPLETE BLOOD COUNT 3074671 HEMATOCRIT 39.4 % 07/06/20 19 Unknown COMPLETE BLOOD COUNT 4188682 MCV 94.0 fL 9 Unknown COMPLETE BLOOD COUNT 1180221 MCH 30.1 pg 9 Unknown COMPLETE BLOOD COUNT 9830461 MCHC 32.0 g/dL 9 Unknown COMPLETE BLOOD COUNT 2310583 PLATELET COUNT 160 10e9/L Unknown COMPLETE BLOOD COUNT 4866935 Mean Plt Volume 11.0 fL Unknown COMPLETE BLOOD COUNT 4654541 Neut Auto 56.6 % 9 Unknown COMPLETE BLOOD COUNT 6172856 Lymph Auto 27.0 % 07/06/20 19 Unknown COMPLETE BLOOD COUNT 2385950 Dawson Auto 13.7 % 9 Unknown COMPLETE BLOOD COUNT 2513500 RDW 14.6 % 9 Unknown COMPLETE BLOOD COUNT 9591170 Eos Auto 2.1 % 9 Unknown COMPLETE BLOOD COUNT 1516721 Baso Auto 0.6 % 9 Unknown COMPLETE BLOOD COUNT 5960514 Neutrophil Abs 2.66 10e9/L Unknown COMPLETE BLOOD COUNT 9124176 Lymphocyte Abs 1.27 10e9/L Unknown COMPLETE BLOOD COUNT 1537901 Monocyte Abs 0.64 10e9/L 06/23 Unknown COMPLETE BLOOD COUNT 9478968 Eosinophil Abs 0.10 10e9/L Unknown COMPLETE BLOOD COUNT 7724691 RDW-SD 48.7 fL 9 Unknown COMPLETE BLOOD COUNT 9163919 Basophil Abs 0.03 10e9/L 06/23 Unknown COMPLETE BLOOD COUNT 2601575 WBC 4.6 10e9/L 06/14/20 19 Unknown COMPLETE BLOOD COUNT 9384574 RBC 4.16 10e12/L 2018 Unknown COMPLETE BLOOD COUNT 2994958 HEMOGLOBIN 12.6 g/dL 06/14/20 19 Unknown COMPLETE BLOOD COUNT 0781576 HEMATOCRIT 39.1 % 06/14/20 19 Unknown COMPLETE BLOOD COUNT [id number] MCV 94.0 fL 9 Unknown COMPLETE BLOOD COUNT 4022799 MCH 30.3 pg 9 Unknown COMPLETE BLOOD COUNT [id number] MCHC 32.2 g/dL 9 Unknown COMPLETE BLOOD COUNT 6765554 PLATELET COUNT 167 10e9/L Unknown COMPLETE BLOOD COUNT 8331688 Mean Plt Volume 10.9 fL Unknown COMPLETE BLOOD COUNT 7256020 Neut Auto 59.6 % 9 Unknown COMPLETE BLOOD COUNT 4254545 Lymph Auto 24.1 % 06/14/20 19 Unknown COMPLETE BLOOD COUNT 9347835 Dawson Auto 14.0 % 9 Unknown COMPLETE BLOOD COUNT 8194513 RDW 14.8 % 9 Unknown COMPLETE BLOOD COUNT 9538011 Eos Auto 1.9 % 9 Unknown COMPLETE BLOOD COUNT 8578548 Baso Auto 0.4 % 9 Unknown COMPLETE BLOOD COUNT 3051603 Neutrophil Abs 2.74 10e9/L Unknown COMPLETE BLOOD COUNT 7944843 Lymphocyte Abs 1.11 10e9/L Unknown COMPLETE BLOOD COUNT 9869282 Monocyte Abs 0.64 10e9/L 05/24 Unknown COMPLETE BLOOD COUNT 8484650 Eosinophil Abs 0.09 10e9/L Unknown COMPLETE BLOOD COUNT 0644226 Basophil Abs 0.02 10e9/L 05/24 Unknown COMPLETE BLOOD COUNT 6435404 RDW-SD 49.3 fL 9 Unknown PT [id number] PT 22.3 Seconds 06/14/2019 Unknow n PT [id number] INR 1.9 06/14/2019 Unknown COMPLETE BLOOD COUNT 0274972 WBC 4.0 10e9/L 05/13/20 19 Unknown COMPLETE BLOOD COUNT 8686139 RBC 3.82 10e12/L 2018 Unknown COMPLETE BLOOD COUNT 9168506 HEMOGLOBIN 11.5 g/dL 05/13/20 19 Unknown COMPLETE BLOOD COUNT 8840698 HEMATOCRIT 36.4 % 05/13/20 19 Unknown COMPLETE BLOOD COUNT 0423486 MCV 95.3 fL 9 Unknown COMPLETE BLOOD COUNT 1559336 MCH 30.1 pg 9 Unknown COMPLETE BLOOD COUNT 9995993 MCHC 31.6 g/dL 9 Unknown COMPLETE BLOOD COUNT 0732604 PLATELET COUNT 175 10e9/L Unknown COMPLETE BLOOD COUNT 7383228 Mean Plt Volume 10.5 fL Unknown COMPLETE BLOOD COUNT 6672916 Neut Auto 63.2 % 9 Unknown COMPLETE BLOOD COUNT 9666769 Lymph Auto 22.0 % 05/13/20 19 Unknown COMPLETE BLOOD COUNT 1691768 Dawson Auto 12.1 % 9 Unknown COMPLETE BLOOD COUNT 4579002 RDW 14.9 % 9 Unknown COMPLETE BLOOD COUNT 5212657 Eos Auto 2.2 % 9 Unknown COMPLETE BLOOD COUNT 4179484 Baso Auto 0.5 % 9 Unknown COMPLETE BLOOD COUNT 6961340 Neutrophil Abs 2.53 10e9/L Unknown COMPLETE BLOOD COUNT 7344471 Lymphocyte Abs 0.88 10e9/L Unknown COMPLETE BLOOD COUNT 6679775 Monocyte Abs 0.48 10e9/L 04/24 Unknown COMPLETE BLOOD COUNT 0028305 Eosinophil Abs 0.09 10e9/L Unknown COMPLETE BLOOD COUNT 1962239 RDW-SD 49.6 fL 9 Unknown COMPLETE BLOOD COUNT 7607821 Basophil Abs 0.02 10e9/L 04/24 Unknown COMPREHENSIVE METABOLIC 04269 AST 18 U/L 2018 Unknown COMPREHENSIVE METABOLIC 81201 ALT 14 U/L 2018 Unknown COMPREHENSIVE METABOLIC 65112 BUN 15 mg/dL 2018 Unknown COMPREHENSIVE METABOLIC 69648 ALBUMIN 4.0 g/dL 2018 Unknown COMPREHENSIVE METABOLIC 96409 CHLORIDE 108 mmol/L 05/13 Unknown COMPREHENSIVE METABOLIC 10803 Bili Total 0.9 mg/dL 05/13 Unknown COMPREHENSIVE METABOLIC 57373 ALK PHOS 84 U/L 2018 Unknown COMPREHENSIVE METABOLIC 12348 SODIUM 142 mmol/L 05/13 Unknown COMPREHENSIVE METABOLIC 75057 CREATININE 0.72 mg/dL 04/24 Unknown COMPREHENSIVE METABOLIC 34687 CALCIUM 8.9 mg/dL 2018 Unknown COMPREHENSIVE METABOLIC 36110 POTASSIUM 4.0 mmol/L 05/13 Unknown COMPREHENSIVE METABOLIC 17751 Total Protein 5.5 g/dL Unknown COMPREHENSIVE METABOLIC 37571 Glucose 95 mg/dL 2018 Unknown COMPREHENSIVE METABOLIC 77521 Bicarbonate 27 mmol/L 04/24 Unknown COMPREHENSIVE METABOLIC 28227 AGAP 7 mmol/L 2018 Unknown GFR CALC 9650285 GFR Afr Amr >60 mL/min 05/13/2019 Unknow n GFR CALC [id number] GFR Non Afr Amr >60 mL/min 05/13/2019 Un known THYROID STIMULATING HORMONE 97721 TSH 2.669 uIU/mL 05/13/2019 Unknown FREE T4 58153 T4 Free 1.19 ng/dL 05/13/2019 Unknown PT [id number] PT 24.2 Seconds 05/06/2019 Unknow n PT 8576295 INR 2.1 05/06/2019 Unknown PT [id number] PT 24.1 Seconds 03/08/2019 Unknow n PT [id number] INR 2.9 03/08/2019 Unknown Procedures Procedure Codes Date ROUTINE VENIPUNCTURE CPT-4: 21383 07/19/2021 PROTHROMBIN TIME CPT-4: 49630 07/19/2021 ROUTINE VENIPUNCTURE CPT-4: 40261 06/20/2021 COMPREHEN METABOLIC PANEL CPT-4: 19105 06/20/2021 COMPLETE CBC W/AUTO DIFF WBC CPT-4: 46671 06/20/2021 PROTHROMBIN TIME CPT-4: 31923 06/20/2021 PT CPT-4: [id number] 05/16/2021 ROUTINE VENIPUNCTURE CPT-4: 08185 05/16/2021 ROUTINE VENIPUNCTURE CPT-4: 74109 04/11/2021 PROTHROMBIN TIME CPT-4: 43972 04/11/2021 ASSAY OF FREE THYROXINE CPT-4: 24626 04/11/2021 ASSAY THYROID STIM HORMONE CPT-4: 26727 04/11/2021 ROUTINE VENIPUNCTURE CPT-4: 33311 03/15/2021 PT CPT-4: 5407485 03/15/2021 ROUTINE VENIPUNCTURE CPT-4: 11158 02/22/2021 COMPREHEN METABOLIC PANEL CPT-4: 15299 02/22/2021 ASSAY OF FREE THYROXINE CPT-4: 93834 02/22/2021 ASSAY THYROID STIM HORMONE CPT-4: 32349 02/22/2021 COMPLETE CBC W/AUTO DIFF WBC CPT-4: 67262 02/22/2021 PROTHROMBIN TIME CPT-4: 90327 02/22/2021 LIPID PANEL CPT-4: 55303 02/22/2021 PPPS, subseq visit CPT-4: G0439 09/26/2020 ROUTINE VENIPUNCTURE CPT-4: [id number] 05/23/2020 PROTHROMBIN TIME CPT-4: 57030 05/23/2020 ROUTINE VENIPUNCTURE CPT-4: 46390 01/20/2020 PT CPT-4: 6351619 01/20/2020 ROUTINE VENIPUNCTURE CPT-4: 68240 12/15/2019 PROTHROMBIN TIME CPT-4: 99251 12/15/2019 ROUTINE VENIPUNCTURE CPT-4: 49084 11/10/2019 PROTHROMBIN TIME CPT-4: 70098 11/10/2019 PROTHROMBIN TIME CPT-4: 02566 10/26/2019 ROUTINE VENIPUNCTURE CPT-4: 23042 10/26/2019 ROUTINE VENIPUNCTURE CPT-4: 41337 10/11/2019 PT CPT-4: 1550218 10/11/2019 PPPS, initial visit CPT-4: G0438 09/20/2019 ROUTINE VENIPUNCTURE CPT-4: 69441 09/08/2019 PT CPT-4: 2423502 09/08/2019 THER/PROPH/DIAG INJ SC/IM CPT-4: 36212 09/08/2019 TRIAMCINOLONE ACET INJ NOS CPT-4: J3301 09/08/2019 ROUTINE VENIPUNCTURE CPT-4: 03603 07/29/2019 PT CPT-4: 9007691 07/29/2019 ROUTINE VENIPUNCTURE CPT-4: 36159 07/18/2019 PT CPT-4: 5413950 07/18/2019 METABOLIC PANEL TOTAL CA CPT-4: 17132 07/06/2019 COMPLETE CBC W/AUTO DIFF WBC CPT-4: 45587 07/06/2019 PROTHROMBIN TIME CPT-4: 43895 07/06/2019 ROUTINE VENIPUNCTURE CPT-4: 71213 06/14/2019 PROTHROMBIN TIME CPT-4: 32411 06/14/2019 COMPLETE CBC W/AUTO DIFF WBC CPT-4: 93629 06/14/2019 ROUTINE VENIPUNCTURE CPT-4: 18967 05/13/2019 COMPREHEN METABOLIC PANEL CPT-4: 80698 05/13/2019 COMPLETE CBC W/AUTO DIFF WBC CPT-4: 95057 05/13/2019 ASSAY THYROID STIM HORMONE CPT-4: 57390 05/13/2019 ASSAY OF FREE THYROXINE CPT-4: 97917 05/13/2019 PT CPT-4: 0657453 05/06/2019 ROUTINE VENIPUNCTURE CPT-4: 58343 05/06/2019 PT CPT-4: 0599949 04/07/2019 ROUTINE VENIPUNCTURE CPT-4: 40715 04/07/2019 ROUTINE VENIPUNCTURE CPT-4: 64544 03/08/2019 PROTHROMBIN TIME CPT-4: 71356 03/08/2019 Vital Signs Date Vital 05/16/2021 Blood Pressure 1: 136/64 Code: 8480-6 BMI: 37.0 Code: 50206-0 Heart Rate 1: 61 bpm Height: 5'3" Code: 8302-2 Respiratory Rate: 16 bpm SpO2: 98% Temperature: 36.2 (C) / 97.1 (F) Weight: 212 lbs Code: 07725-1 03/05/2021 Blood Pressure 1: 134/76 Code: 8480-6 Heart Rate 1: 66 bpm Respiratory Rate: 16 bpm SpO2: 100% Temperature: 37.1 (C) / 98.7 (F) We ight: 203 lbs Code: 84095-1 02/19/2021 Blood Pressure 1: 126/70 Code: 8480-6 BMI: 35.4 Code: 09034-1 Heart Rate 1: 72 bpm Height: 5'3" Code: 8302-2 Respiratory Rate: 16 bpm SpO2: 99% Temperature: 36.3 (C) / 97.3 (F) Weight: 203 lbs Code: 23700-4 01/16/2021 Blood Pressure 1: 112/74 Code: 8480-6 Heart Rate 1: 76 bpm Respiratory Rate: 20 bpm Temperature: 36.7 (C) / 98.0 (F) Weight: 205 lbs Code : 07636-8 11/19/2020 Blood Pressure 1: 120/78 Code: 8480-6 Heart Rate 1: 88 bpm Temperature: 36.6 (C) / 97.8 (F) 11/12/2020 Blood Pressure 1: 110/57 Code: 8480-6 Heart Rate 1: 68 bpm Respiratory Rate: 15 bpm SpO2: 100% Weight: 202 lbs Code: 83663 -7 10/12/2020 Blood Pressure 1: 114/70 Code: 8480-6 Heart Rate 1: 84 bpm Respiratory Rate: 18 bpm SpO2: 98% Temperature: 36.7 (C) / 98.0 (F) 09/26/2020 Blood Pressure 1: 120/72 Code: 8480-6 BMI: 35.2 Code: 94298-6 Heart Rate 1: 76 bpm Height: 5'3" Code: 8302-2 Respiratory Rate: 20 bpm SpO2: 97% Temperature: 36.7 (C) / 98.0 (F) Weight: 202 lbs Code: 61594-2 08/27/2020 Blood Pressure 1: 126/82 Code: 8480-6 Heart Rate 1: 80 bpm Respiratory Rate: 20 bpm Temperature: 36.2 (C) / 97.1 (F) Weight: 198 lbs Code : 56149-1 05/23/2020 Blood Pressure 1: 120/78 Code: 8480-6 Heart Rate 1: 68 bpm Respiratory Rate: 20 bpm SpO2: 97% Temperature: 36.4 (C) / 97.5 (F) We ight: 200 lbs Code: 88223-1 05/02/2020 Blood Pressure 1: 133/81 Code: 8480-6 Heart Rate 1: 74 bpm Weight: 202 lbs Code: 31975-9 12/15/2019 Blood Pressure 1: 126/82 Code: 8480-6 Heart Rate 1: 64 bpm Respiratory Rate: 20 bpm SpO2: 97% Temperature: 36.6 (C) / 97.8 (F) We ight: 201 lbs Code: 39546-8 11/03/2019 Blood Pressure 1: 142/82 Code: 8480-6 [...] / 98.1 (F) Weight: 204 lbs Code: 43359-2 09/20/2019 Blood Pressure 1: 122/68 Code: 8480-6 BMI: 35.0 Code: 01290-1 Heart Rate 1: 72 bpm Height: 5'3" Code: 8302-2 Respiratory Rate: 18 bpm SpO2: 95% Temperature: 36.8 (C) / 98.3 (F) Weight: 201 lbs Code: 79091-3 09/08/2019 Blood Pressure 1: 118/72 Code: 8480-6 Heart Rate 1: 82 bpm SpO2: 97% Temperature: 36.3 (C) / 97.4 (F) Weight: 208 lbs Code: 66012-2 06/14/2019 Blood Pressure 1: 128/84 Code: 8480-6 Heart Rate 1: 72 bpm Respiratory Rate: 20 bpm SpO2: 98% Temperature: 36.7 (C) / 98.1 (F) We ight: 209 lbs Code: 86004-6 05/13/2019 Blood Pressure 1: 144/90 Code: 8480-6 Heart Rate 1: 88 bpm Respiratory Rate: 24 bpm SpO2: 96% Temperature: 37.1 (C) / 98.8 (F) We ight: 210 lbs Code: 30199-1 05/02/2019 Blood Pressure 1: 128/80 Code: 8480-6 Heart Rate 1: 84 bpm Respiratory Rate: 20 bpm SpO2: 95% Temperature: 36.6 (C) / 97.9 (F) We ight: 209 lbs Code: 24803-7 03/22/2019 Blood Pressure 1: 122/70 Code: 8480-6 He art Rate 1: 85 bpm 03/08/2019 Blood Pressure 1: 114/78 Code: 8480-6 BMI: 36.1 Code: 69299-5 Heart Rate 1: 76 bpm Height: 5'3" Code: 8302-2 Respiratory Rate: 20 bpm SpO2: 97% Temperature: 37.1 (C) / 98.8 (F) Weight: 207 lbs Code: 56460-5 Functional Status No Functional Status data Reason [...] woman exam (65+ years) 09/26/2020 Medicare Wel chelsyess--due for mammogram follow up 08/27/2020 follow up [...] visit Encounters Encounter Performer Location Codes Date ([id number]) NURSE/OUTPATIENT VISIT EST Diagnosis: Long-term (current) use of anticoagulants, INR goal 2.0-3.0[ICD10: Z79.01] Jeanie CONNELL [employer] CPT-4: 02535 07/19/2021 ([id number]) NURSE/OUTPATIENT VISIT EST Diagnosis: Essential (primary) hypertension[ICD10: I10] Diagnosis: Chronic atrial fibrillation[ICD10: I48.20] Diagnosis: Long-term (current) use of anticoagulants, INR goal 2.0-3.0[ICD10: Z79.01] Diagnosis: Anemia, unspecified[ICD10: D64.9] Jeanie Parra [employer] [facility] CPT-4: 98411 06/20/2021 ([id number]) OFFICE/OUTPATIENT VISIT EST Diagnosis: Long-term (current) use of anticoagulants, INR goal 2.0-3.0[ICD10: Z79.01] Diagnosis: Essential (primary) hypertension[ICD10: I10] Diagnosis: Chronic congestive heart failure with left ventricular diastolic dysfunction[ICD10: I50.32] Diagnosis: Severe obesity (BMI 35.0-39.9) with comorbidity[ICD10: E66.01] Diagnosis: Chronic atrial fibrillation[ICD10: I48.20] Diagnosis: Obstructive sleep apnea syndrome[ICD10: G47.33] Remedios BLACK [employer] [facility] CPT-4: 70670 05/16/2021 ([id number]) NURSE/OUTPATIENT VISIT EST Diagnosis: Hypothyroidism, unspecified[ICD10: E03.9] Diagnosis: Long-term (current) use of anticoagulants, INR goal 2.0-3.0[ICD10: Z79.01] Jeanie BLACK DO [facility] CPT-4: 56624 04/11/2021 ([id number]) NURSE/OUTPATIENT VISIT EST Diagnosis: Long-term (current) use of anticoagulants, INR goal 2.0-3.0[ICD10: Z79.01] Jeanie BLACK [employer] [facility] CPT-4: 28572 03/15/2021 ([id number]) OFFICE/OUTPATIENT VISIT EST Diagnosis: Essential hypertension[ICD10: I10] Diagnosis: Cheilitis[ICD10: K13.0] Diagnosis: Pulmonary hypertension[ICD10: I27.20] Jeanie MAYNE David BLACK [employer] [facility] CPT-4: 02054 03/05/2021 ([id number]) NURSE/OUTPATIENT VISIT EST Diagnosis: Essential (primary) hypertension[ICD10: I10] Diagnosis: Hypothyroidism, unspecified[ICD10: E03.9] Diagnosis: Long-term (current) use of anticoagulants, INR goal 2.0-3.0[ICD10: Z79.01] Diagnosis: Mixed hyperlipidemia[ICD10: E78.2] Jeaniemari Black PÉREZSTEPHANIE RAFI David BLACK [employer] [facility] CPT-4: 98056 02/22/2021 ([id number]) OFFICE/OUTPATIENT VISIT EST Diagnosis: Cheilitis[ICD10: K13.0] Diagnosis: Encounter for medication review and counseling[ICD10: Z71.89] Diagnosis: Long-term (current) use of anticoagulants, INR goal 2.0-3.0[ICD10: Z79.01] Diagnosis: Hypothyroidism, unspecified[ICD10: E03.9] Diagnosis: Mixed hyperlipidemia[ICD10: E78.2] Diagnosis: Severe obesity (BMI 35.0-39.9) with comorbidity[ICD10: E66.01] Diagnosis: Chronic congestive heart failure with left ventricular diastolic dysfunction[ICD10: I50.32] Remedios BLACK DO [facility] CPT- 4: 57243 02/19/2021 ([id number]) OFFICE/OUTPATIENT VISIT EST Diagnosis: Cheilitis[ICD10: K13.0] Jannette PINZON DO [facility] CPT-4: 81359 01/16/2021 ([id number]) OFFICE/OUTPATIENT VISIT EST Diagnosis: Hypotension[ICD10: I95.9] Diagnosis: Dizziness[ICD10: R42] Jannette BLACK DO C CPT-4: 56220 11/12/2020 ([id number]) OFFICE/OUTPATIENT VISIT EST Diagnosis: Thoracic back pain[ICD10: M54.6] Diagnosis: Dizziness[ICD10: R42] Jannette BLACK DO C CPT-4: 61578 10/12/2020 ([id number]) OFFICE/OUTPATIENT VISIT EST Diagnosis: Chronic atrial fibrillation[ICD10: I48.20] Diagnosis: Chronic airway obstruction, not elsewhere classified[ICD10: J44.9] Diagnosis: Essential hypertension[ICD10: I10] Jeanie BLACK DO [facility] CPT-4: 76441 08/27/2020 ([id number]) OFFICE/OUTPATIENT VISIT EST Diagnosis: Essential (primary) hypertension[ICD10: I10] Diagnosis: Chronic atrial fibrillation[ICD10: I48.20] Diagnosis: COPD (chronic obstructive pulmonary disease)[ICD10: J44.9] Diagnosis: Dyspnea[ICD10: R06.00] Diagnosis: Left hip pain[ICD10: M25.552] Jeanie JENNINGSLINE David BLACK DO [facility] CPT-4: 81486 05/23/2020 ([id number]) NURSE/OUTPATIENT VISIT EST Diagnosis: Essential (primary) hypertension[ICD10: I10] Jeanie Donishaydeenela JENNINGSJEANIE David BLACK DO [facility] CPT-4: 64393 05/02/2020 ([id number]) OFFICE/OUTPATIENT VISIT EST Diagnosis: COPD (chronic obstructive pulmonary disease)[ICD10: J44.9] Diagnosis: Chronic atrial fibrillation[ICD10: I48.20] Diagnosis: Essential hypertension[ICD10: I10] [facility] CPT-4: 60177 03/20/2020 ([id number]) NURSE/OUTPATIENT VISIT EST Diagnosis: Long-term (current) use of anticoagulants, INR goal 2.0-3.0[ICD10: Z79.01] Jeanie BLACK [employer] [facility] CPT-4: 87367 01/20/2020 ([id number]) OFFICE/OUTPATIENT VISIT EST Diagnosis: COPD (chronic obstructive pulmonary disease)[ICD10: J44.9] Diagnosis: Long-term (current) use of anticoagulants, INR goal 2.0-3.0[ICD10: Z79.01] Diagnosis: History of recent fall[ICD10: Z91.81] Jeanie BLACK [employer] [facility] CPT-4: 75350 12/15/2019 ([id number]) NURSE/OUTPATIENT VISIT EST Diagnosis: Long-term (current) use of anticoagulants, INR goal 2.0-3.0[ICD10: Z79.01] Jeanie BLACK [employer] [facility] CPT-4: 37887 11/10/2019 ([id number]) OFFICE/OUTPATIENT VISIT EST Diagnosis: Post concussion syndrome[ICD10: F07.81] Diagnosis: Head contusion[ICD10: S00.93XA] Diagnosis: Chronic airway obstruction, not elsewhere classified[ICD10: J44.9] Jeanie BLACK [employer] [facility] CPT-4: 40484 11/03/2019 ([id number]) OFFICE/OUTPATIENT VISIT EST Diagnosis: Fall as cause of accidental injury at home as place of occurrence[ICD10: W19.XXXA] Diagnosis: Headache[ICD10: R51] Diagnosis: Essential (primary) hypertension[ICD10: I10] Diagnosis: Long-term (current) use of anticoagulants, INR goal 2.0-3.0[ICD10: Z79.01] Diagnosis: Ecchymosis of left eye[ICD10: S05.12XA] Jannette BLACK DO [facility] CPT-4: 84403 10/31/2019 ([id number]) NURSE/OUTPATIENT VISIT EST Diagnosis: Long-term (current) use of anticoagulants, INR goal 2.0-3.0[ICD10: Z79.01] Jeanie BLACK DO [facility] CPT-4: 93245 10/26/2019 ([id number]) OFFICE/OUTPATIENT VISIT EST Diagnosis: Long-term (current) use of anticoagulants, INR goal 2.0-3.0[ICD10: Z79.01] Diagnosis: Pain in right arm[ICD10: M79.601] Diagnosis: Radiculopathy of arm[ICD10: M54.10] Jannette BLACK DO [facility] CPT-4: 22410 10/11/2019 ([id number]) OFFICE/OUTPATIENT VISIT EST Diagnosis: Long-term (current) use of anticoagulants, INR goal 2.0-3.0[ICD10: Z79.01] Diagnosis: Sinusitis[ICD10: J32.9] Diagnosis: Pain in right arm[ICD10: M79.601] Jannette BLACK DO [facility] CPT-4: 62156 09/08/2019 ([id number]) NURSE/OUTPATIENT VISIT EST Diagnosis: Chronic atrial fibrillation[ICD10: I48.2] Diagnosis: Encounter for therapeutic drug level monitoring[ICD10: Z51.81] Jeanie Donisanirudh JEANIE David BLACK DO [facility] CPT-4: 34814 07/29/2019 ([id number]) NURSE/OUTPATIENT VISIT EST Diagnosis: Chronic atrial fibrillation[ICD10: I48.2] Diagnosis: Encounter for therapeutic drug level monitoring[ICD10: Z51.81] Jeanie Donisanirudh JEANIE David BLACK DO [facility] CPT-4: 17825 07/18/2019 ([id number]) NURSE/OUTPATIENT VISIT EST Diagnosis: Encounter for therapeutic drug level monitoring[ICD10: Z51.81] Diagnosis: Chronic atrial fibrillation[ICD10: I48.2] Diagnosis: Essential (primary) hypertension[ICD10: I10] Jeanie Black JEANIEMARI BLACK [employer] CPT-4: 96203 07/06/2019 ([id number]) OFFICE/OUTPATIENT VISIT EST Diagnosis: Encounter for therapeutic drug level monitoring[ICD10: Z51.81] Diagnosis: Anemia, unspecified[ICD10: D64.9] Diagnosis: Bitten by dog, sequela[ICD10: W54.0XXS] 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] Jeanie BLACK [employer] CPT-4: 80742 06/14/2019 ([id number]) OFFICE/OUTPATIENT VISIT EST Diagnosis: Bitten by dog, sequela[ICD10: W54.0XXS] Diagnosis: Other fatigue[ICD10: R53.83] Diagnosis: Hypothyroidism, unspecified[ICD10: E03.9] Diagnosis: Muscle weakness (generalized)[ICD10: M62.81] Diagnosis: Generalized anxiety disorder[ICD10: F41.1] Jannette BLACK [employer] CPT-4: 16124 05/13/2019 ([id number]) NURSE/OUTPATIENT VISIT EST Diagnosis: Encounter for therapeutic drug level monitoring[ICD10: Z51.81] Jeanie BLACK [employer] CPT-4: 79676 05/06/2019 ([id number]) OFFICE/OUTPATIENT VISIT EST Diagnosis: Bitten by dog, sequela[ICD10: W54.0XXS] Diagnosis: Pain in right wrist[ICD10: M25.531] Diagnosis: Abrasion of right upper arm, sequela[ICD10: S40.811S] Diagnosis: Abrasion of left upper arm, sequela[ICD10: S40.812S] Jannette BLACK [employer] CPT-4: 87133 05/02/2019 ([id number]) NURSE/OUTPATIENT VISIT EST Diagnosis: Encounter for therapeutic drug level monitoring[ICD10: Z51.81] Jeanie BLACK [employer] CPT-4: 31043 04/07/2019 ([id number]) OFFICE/OUTPATIENT VISIT NEW Diagnosis: Encounter for therapeutic drug level monitoring[ICD10: Z51.81] Diagnosis: Chronic atrial fibrillation[ICD10: I48.2] Diagnosis: Essential (primary) hypertension[ICD10: I10] Diagnosis: Abnormal findings on diagnostic imaging of heart and coronary circulation[ICD10: R93.1] Diagnosis: Other forms of dyspnea[ICD10: R06.09] Diagnosis: Hypothyroidism, unspecified[ICD10: E03.9] Diagnosis: Mixed hyperlipidemia[ICD10: E78.2] Jeanie BLACK DO [facility] CPT-4: 88567 03/08/2019 Plan of Care Planned Activity Notes Codes Status Date App[facility]ment: [facility] [facility] [facility] 07/19/2021 Appointment: [facility] [facility] [facility] 06/20/2021 Visit Diagnosis Plan: Severe obesity (BMI 35.0-39.9) w ith comorbidity Discussion: Discussed diet and exercise ICD-9 : 278.01 ICD-10 : E66.01 05/16/2021 Visit Diagnosis Plan: Obstructive sleep apnea syndrome Discussion: Per pulbautista note- order for bipap sent to [facility]- will call them to [...] [address] [facility] [place] MEDICATION REVIEW 05/16/2021 Patient Education: Patient Medication Summary Completed 05/16/2021 Patient Education: isosorbide mononitrate- [employer] Coupon [id number] https://www.[employer]/sampleNatural Dentist/resources/getResourTrevi Therapeutics/61/[email or web address]-r0 Completed 05/16/2021 Patient Education: High Blood Pressure Co mpleted 05/16/2021 Appointment: Jeanie Black WPtel: [address] [place], [place] [id number] US LAB 04/11/2021 Appointment: Jeanie Black WPtel: [address] [place], [place] [phone] US CANCELED 03/27/2021 Appointment: Jeanie Black WPtel: [address] [place], [place] [address] US LAB 03/15/2021 Visit Diagnosis Plan: Pulmonary [...] : I10 03/05/2021 Appointment: Jeanie Black WPtel: [address] [place], [place] [address] US FOLLOW UP 03/05/2021 Patient Education: spironolactone- [employer] Coupon 1 [id number] https://www.[employer]/MyLifeBrand/resources/getResourTrevi Therapeutics/61/[email or web address]-1g09-7u Completed 03/05/2021 Appointment: Jeanie Black WPtel: [address] [facility] [id number] US LAB 02/22/2021 Visit Diagnosis Plan: Cheilitis [...] 272.4 ICD-10 : E78.2 02/19/2021 Appointment: Dirk Remdeios WPtel: [address] [facility] MEDICATION REVIEW 02/19/2021 Patient Education: Patient Medication [...] ICD-10 : K13.0 01/16/2021 Appointment: Jannette Mayen [address] [place] [address] ACUTE ILLNESS 01/16/2021 Appointment: Jeanie Black WPtel: [address] [facility] BP CHECK 11/19/2020 Visit Diagnosis Plan: Hypotension [...] : I95.9 11/12/2020 Appointment: Jannette Mayen [address] [facility] ACUTE ILLNESS 11/12/2020 Visit Diagnosis Plan: Thoracic back pain Discussion: w ill send order for PT through [facility]. call office with any new or worsening [...] ICD-10 : R42 10/12/2020 Appointment: Jannette Mayen [address] [place], [place] [address] AC[facility] 10/12/2020 Visit Diagnosis Plan: Chronic atrial fibrillation Disc ussion: Following routinely with cardiology ICD-9 : 427.31 ICD-10 : I48.20 09/26/2020 Visit Diagnosis Plan: Essential (primary) hypertension Discussion: Stable ICD-9 : 401.9 ICD-10 : I10 09/26/2020 Visit Diagnosis Plan: Encounter for [facility] adult medical examination [...] : I50.32 09/26/2020 Appointment: Jeanie Black WPtel: [address] [place], [place] [address] Annual Well Visit 09/26/2020 Care Plan: Referral Order SNOMED-CT : 30 [id number] Pending 09/26/2020 Visit Diagnosis Plan: Chronic airway [...] : I48.20 08/27/2020 Appointment: Jeanie Black WPtel: [facility] US FOLLOW UP 08/27/2020 Visit Diagnosis Plan: [...] : I10 05/23/2020 Appointment: Jeanie Black WPtel: [address] [place], [place] [address] FOLLOW UP 05/23/2020 Appointment: Jenaie Black WPtel: [address] [place] [address] NURSE SERVICES 05/02/2020 Visit Diagnosis Plan: Chronic [...] : J44.9 03/20/2020 Appointment: Jeanie Black WPtel: [address] [place], [place] [id number] US TELEMEDICINE 03/20/2020 Patient Education: Coumadin- [employer] Coupon [id number] https://www.MyLifeBrand.Bangcle/sampleNatural Dentist/resources/getResource/61/2c154w99-92v3-9ekc-0d Completed 03/20/2020 Patient Education: Coumadin- [employer] Coupon [id number] https://www.[employer]/resources/getResource/61/8ds46j5g-4w5r-6xo1-fr Completed 03/20/2020 Appointment: Jeanie Black WPtel: [address] [place], [place] [phone] US LAB 01/20/2020 Visit Diagnosis Plan: History of recent fall Discussio n: Healing well Doing balance class at [facility] Follow Up: 3 months ICD-9 : V15.88 ICD-10 : Z91.81 12/15/2019 Visit Diagnosis Plan: COPD (chronic obstructive pulmon valeria disease) Discussion: Continue pulmonary rehab ICD-9 : 496 ICD-10 : J44.9 12/15/2019 Visit Diagnosis Plan: Long-term (current ) use of anticoagulants, INR goal 2.0-3.0 Discussion: PT/INR drawn ICD-9 : V58.61 ICD-10 : Z79.01 12/15/2019 Appointment: Jeanie Black WPtel: [address] [place], [place] [id number] US FOLLOW UP 12/15/2019 Patient Education: Coumadin- [employer] Coupon [id number] https://www.[employer] Annie/MyLifeBrand/resources/getResource/61/g285ecra-dq37-4zrb-8z Completed 12/15/2019 Appointment: Jeanie Black WPtel: [address] [place] [address] US LAB 11/10/2019 Visit Diagnosis Plan: Post [...] : J44.9 11/03/2019 Appointment: Jeanie Black WPtel: [facility] FOLLOW UP 11/03/2019 Care Plan: CT HEAD/BRAIN W/O DYE LOINC : 82495-5 Pending 11/01/2019 Visit Diagnosis Plan: Essential (primary) [...] ICD-10 : S05.12XA 10/31/2019 Appointment: Jannette Mayen [address] [place] [address] Hospital Follow Up 10/31/2019 Patient Education: High Blood Pressure Co mpleted 10/31/2019 Patient Education: losartan- [employer] Coupon [id number] https://www.MyLifeBrand.Bangcle/samplemd/resources/getResource/61/0x010805-6j15-4438-8w Completed 10/31/2019 Appointment: Jeanie Black WPtel: [address] [facility] FOLLOW UP 10/26/2019 Visit Diagnosis Plan: Long-term (current ) use of anticoagulants, INR goal 2.0-3.0 Discussion: will update pt/inr ICD-9 : V58.61 ICD-10 : Z79.10/11/2019 Visit Diagnosis Plan: Radiculopathy of arm Discussion: flexeril prescribed to take as needed. will start at low dose but instructed patient to call office if not effective and will increase mg dose. PT ordered at [facility] to assist with pain. if no improvement or worsening from PT, will need imaging. ICD-9 : 723.4 ICD-10 : M54.10 10/11/2019 Appointment: Jannette Mayen [address] [facility] ACUTE ILLNESS 10/11/2019 Patient Education: cyclobenzaprine- [employer] Coupon [id number] https://www.MyLifeBrand.Bangcle/samplemd/resources/getResource/61/05y3u3e7-07r8-5l50-80 Completed 10/11/2019 Visit Diagnosis Plan: Bitten by dog, sequela Discussio n: Still seeing counselor Still doing therapy--left 4th finger still not agile enough to play violin and feels like pinched nerve in neck on right--dscussed stretches, massage, accupuncture---patient had hired litigation attorney ICD-9 : 906.1 ICD-10 : W54.0XXS 09/20/2019 Visit Diagnosis Plan: Encounter for [facility] adult medical examination [...] E78.2 09/20/2019 Appointment: Jeanie Black WPtel: [address] [facility] Annual Well Visit 09/20/2019 Visit Diagnosis Plan: [...] ICD-10 : Z79.01 09/08/2019 Appointment: Jannette Mayen [address] [place] [address] ACUTE ILLNESS 09/08/2019 Appointment: Jeanie Black WPtel: [address] [place] [address] US CANCELED 08/16/2019 Appointment: Jeanie Black WPtel: [address] [place] [address] US LAB 07/29/2019 Appointment: Jeanie Black WPtel: [address] [place] [address] US LAB 07/18/2019 Appointment: Jeanie Black WPtel: [address] [place] [address] US LAB 07/06/2019 Visit Diagnosis Plan: Bitten [...] D64.9 06/14/2019 Appointment: Jeanie Black WPtel: [address] [facility] US FOLLOW UP 06/14/2019 Visit Diagnosis Plan: [...] several days ago. will refer to [facility] as well to discuss concerns. ICD-9 : [...] ICD-10 : R53.83 05/13/2019 Appointment: Jannette Mayen [address] [place], [place] [address] US FOLLOW UP 05/13/2019 Patient Education: carvedilol- [employer] Coupon [id number] https://www.MyLifeBrand.com/samplemd/resources/getResource/61/84q6b655-5bgk-3731-3e Completed 05/13/2019 Patient Education: Xanax- [employer] Coupon [id number] https://www.MyLifeBrand.com/samplemd/resources/getResource/61/[email or web address]-g9 1e-9g98745567j9.pdf Completed 05/13/2019 Appointment: Jeanie Black WPtel: [address] [place], [place] [phone] US LAB 05/06/2019 Visit Diagnosis Plan: Abrasion [...] ICD-10 : M25.531 05/02/2019 Appointment: Jannette Mayen [address] [place] [address] ACUTE ILLNESS 05/02/2019 Care Plan: X-RAY EXAM OF WRIST right LOINC : 3 7302-7 Pending 05/02/2019 Appointment: Jeanie Black WPtel: [address] [place], [place] [phone] US LAB 04/07/2019 Appointment: Jeanie Black WPtel: [address] [place], [place] [id number] US BP CHECK 03/22/2019 Visit Diagnosis Plan: [...] : I10 03/08/2019 Appointment: Jeanie Black WPtel: [facility] NEW PATIENT 03/08/2019 Referral: Shona Viera WPtel: [facility] [address] Referral Appointment Requested Instructions No Instructions Medical Equipment No Medical Equipment data Health Concerns Section Health Concerns data not found Goals Section Goals data not found Interventions Section Interventions data not found Health Status Evaluations/Outcomes Section Health Status Evaluations/Outcomes data not found Advance Directives No Advance Directive data
--- OUTSIDE RECORDS SUMMARY | 2021-09-19 12:42 | XMS REPORT | CCD ---
Author Author Tricia Black D.O. Organization [facility] Address [address] [place] [address] Phone Care Team Providers Care Commissary Superintendent Name Role Phone PP Unavailable CCM Unavailable Summary Purpose Interface Exchange Insurance Providers Payer name Policy type / Coverage type Covered republican ID Effective Begin Date Effective End Date WPS MEDICARE PART B [place] Medicare Part B [id number] Unknown Unknown AARP Medicare Part B [id number] Unknown Unknown Family history Grandmother Diagnosis Age [...] Unknown Retired 03/08/[address]: 372584136 Has never smoked or chewed tobacco 03/08/[address]: 274976 Currently drinks alcohol 03/08 Has the patient [...] Instructions isosorbide mononitrate 10 mg tablet RxNorm: 146179 Take 1 Tablet(s) Oral two times a day 08/08/2021 No Stop Date Active losartan 100 mg tablet RxNorm: 878847 Take 1 Tablet(s) Oral QD 07/2411/02/2021 Active amoxicillin 500 mg capsule RxNorm: 848180 4 Capsule(s) Oral QD 1hr prior to dental cleaning 08/05/2021 08/05/2021 Inactive levothyroxine 50 mcg tablet RxNorm: 908383 TAKE 1 TABLE T BY MOUTH EVERY DAY. RECHECK LABS IN 2 MONTHS 08/04/2021 10/02/2021 Active potassium chloride ER 10 mEq tablet,extended release RxNorm: 851248 TAKE 1 TABLET BY MOUTH EVERY DAY 07/14/2021 10/11/2021 Active spironolactone 25 mg tablet RxNorm: 753520 1/2 Tablet(s) Oral QD No Stop Date Active isosorbide mononitrate 10 mg tablet RxNorm: 938593 Take 1 Tablet(s) Oral two times a day 05/16/2021 05/16/2021 Inactive isosorbide mononitrate ER 30 mg tablet,extended release 24 h r RxNorm: 700481 TABLET(S) 1 TABLET(S) PO NEEDED Tablet(s) Oral 05/16/2021 08/07/2021 Inactive Patient requests 90 days supply furosemide 40 mg tablet RxNorm: 035594 TAKE 1 TABLET BY MOUTH E VERY MORNING 05/07/2021 08/04/2021 Inactive isosorbide mononitrate 10 mg tablet RxNorm: 227968 Take 1 Tablet(s) Oral two times a day 04/26/2021 05/15/2021 Inactive isosorbide mononitrate 10 mg tablet RxNorm: 602740 Take 1 Tablet(s) Oral two times a day 04/25/2021 04/25/2021 Inactive potassium chloride ER 10 mEq tablet,extended release RxNorm: 852263 TAKE 1 TABLET BY MOUTH EVERY DAY 04/19/2021 04/19/2021 Inactive Coumadin 4 mg tablet RxNorm: 318252 1 Tablet(s) Oral Thursday04/11/2021 07/10/2021 Inactive Coumadin 2 mg tablet RxNorm: 446785 1 Tablet(s) Oral on Thursday and Thursday04/11/2021 07/10/2021 Inactive carvedilol 25 mg tablet RxNorm: 174724 1 Tablet(s) Oral two antolin es a day 04/03/2021 09/29/2021 Active Coumadin 2 mg tablet RxNorm: 564819 TAKE 1 TABLET BY [facility] ON THURSDAY AND Thursday03/26/2021 04/10/2021 Inactive Coumadin 4 mg tablet RxNorm: 712734 1 Tablet(s) Oral QD 02/26/2021 Inactive levothyroxine 50 mcg tablet RxNorm: 506105 1 Tablet(s) Oral QD Recheck labs in 2 months 02/26/2021 02/26/2021 Inactive Recheck labs in 2 months levothyroxine 50 mcg tablet RxNorm: 303343 1 Tablet(s) Oral QD Recheck labs in 2 months 02/26/2021 02/25/2021 Inactive Recheck labs in 2 months losartan 100 mg tablet RxNorm: 413857 TAKE 1 TABLET BY MOUTH 02/22/2021 08/20/2021 Inactive spironolactone 25 mg tablet RxNorm: 310960 1 Tablet(s) Oral QD 01/2303/04/2021 Inactive isosorbide mononitrate 10 mg tablet RxNorm: 102150 1 Ta blet(s) Oral two times a day 02/19/2021 02/25/2021 Inactive famotidine 20 mg tablet RxNorm: 189170 1 Tablet(s) Oral QD 02/20/2003/04/2021 Inactive levothyroxine 25 mcg tablet RxNorm: 351494 1 Tablet(s) Oral QD 03/0 07/202102/25/2021 Inactive atorvastatin 40 mg tablet RxNorm: 205326 1 Tablet(s) Or al QPM replaces pravastatin 01/29/2021 07/27/2021 Inactive furosemide 40 mg tablet RxNorm: 377179 TAKE 1 TABLET BY MOUTH E VERY MORNING 01/28/2021 01/28/2021 Inactive prednisone 10 mg tablet RxNorm: 445890 1 Tablet(s) Oral two antolin es a day 01/16/2021 01/19/2021 Inactive atorvastatin 40 mg tablet RxNorm: 520876 1 Tablet(s) Or al QPM replaces pravastatin 12/31/2020 01/28/2021 Inactive carvedilol 25 mg tablet RxNorm: 930266 TAKE 1 TABLET BY MOUTH T WICE DAILY 12/31/2020 04/02/2021 Inactive potassium chloride ER 10 mEq tablet,extended release RxNorm: 594658 TAKE 1 TABLET BY MOUTH EVERY DAY 12/31/2020 12/31/2020 Inactive losartan 100 mg tablet RxNorm: 157173 1 Tablet(s) Oral QD 12/03/2020 02/21/2021 Inactive Coumadin 4 mg tablet RxNorm: 888028 TAKE 1 TABLET BY [facility] THURSDAY THROUGH Thursday11/30/2020 02/25/2021 Inactive levothyroxine 25 mcg tablet RxNorm: 401712 1 Tablet(s) Oral QD 10/2401/28/2021 Inactive famotidine 20 mg tablet RxNorm: 483376 1 Tablet(s) Oral QD 11/19/20 20 01/15/2021 Inactive famotidine 20 mg tablet RxNorm: 848057 1 Tablet(s) Oral QD 11/19/20 20 11/18/2020 Inactive levothyroxine 50 mcg tablet RxNorm: 392357 [facility] 11/06/2020 01/29/2021 Inactive furosemide 40 mg tablet RxNorm: 391296 TAKE 1 TABLET BY MOUTH E VERY MORNING 11/05/2020 01/27/2021 Inactive atorvastatin 40 mg tablet RxNorm: 129224 1 Tablet(s) Or al QPM replaces pravastatin 10/22/2020 12/30/2020 Inactive atorvastatin 40 mg tablet RxNorm: 454484 1 Tablet(s) Or al QPM replaces pravastatin 10/22/2020 10/21/2020 Inactive spironolactone 25 mg tablet RxNorm: 260442 1 Tablet(s) Oral QAM 01/15/2021 Inactive carvedilol 25 mg tablet RxNorm: 035962 TAKE 1 TABLET BY MOUTH T WICE DAILY 10/04/2020 12/30/2020 Inactive pravastatin 40 mg tablet RxNorm: 455410 TAKE 1 TABLET BY MOUTH EVERY DAY 10/04/2020 12/31/2020 Inactive potassium chloride ER 10 mEq tablet,extended release RxNorm: 555360 TAKE 1 TABLET BY MOUTH EVERY DAY 10/04/2020 12/30/2020 Inactive isosorbide mononitrate ER 30 mg tablet,extended release 24 h r RxNorm: 126127 TABLET(S) 1 TABLET(S) PO NEEDED Oral 10/04/2020 02/18/2021 Inactive Patient requests 90 days supply furosemide 40 mg tablet RxNorm: 179344 TAKE 1 TABLET BY MOUTH E VERY MORNING 10/01/2020 11/04/2020 Inactive losartan 100 mg tablet RxNorm: 376490 TAKE 1 TABLET BY MOUTH 09/19/2020 12/02/2020 Inactive amlodipine 5 mg tablet RxNorm: 263791 1 Tablet(s) Oral QD 08/27/2020 11/11/2020 Inactive spironolactone 25 mg tablet RxNorm: 180527 1 Tablet(s) Oral QAM 03/202010/21/2020 Inactive levothyroxine 50 mcg tablet RxNorm: 802565 TAKE 1 TABLET BY ENE TH EVERY DAY 08/07/2020 11/04/2020 Inactive levothyroxine 50 mcg tablet RxNorm: 709789 TAKE 1 TABLET BY ENE TH EVERY DAY 08/06/2020 08/06/2020 Inactive amoxicillin 500 mg capsule RxNorm: 434166 4 Capsule(s) Oral QD 1hr prior to dental cleaning 07/31/2020 07/30/2020 Inactive amoxicillin 500 mg capsule RxNorm: 003489 4 Capsule(s) Oral QD 1hr prior to dental cleaning 07/31/2020 07/31/2020 Inactive potassium chloride ER 10 mEq tablet,extended release RxNorm: 606573 TAKE 1 TABLET BY MOUTH EVERY DAY 07/23/2020 10/03/2020 Inactive pravastatin 40 mg tablet RxNorm: 784190 TAKE 1 TABLET BY MOUTH EVERY DAY 07/23/2020 10/03/2020 Inactive carvedilol 25 mg tablet RxNorm: 013894 TAKE 1 TABLET BY MOUTH T WICE DAILY 07/23/2020 10/03/2020 Inactive losartan 100 mg tablet RxNorm: 967388 TAKE 1 TABLET BY MOUTH EV RANDI DAY 06/27/2020 09/18/2020 Inactive furosemide 40 mg tablet RxNorm: 502289 TAKE 1 TABLET BY MOUTH E VERY MORNING 06/08/2020 09/30/2020 Inactive Coumadin 4 mg tablet RxNorm: 152410 1 Tablet(s) Oral Thursday thr thursday06/07/2020 11/29/2020 Inactive Coumadin 2 mg tablet RxNorm: 331718 1 Tablet(s) Oral on and Thursday03/20/2020 03/19/2020 Inactive Coumadin 4 mg tablet RxNorm: 778584 1 Tablet(s) Oral Thursday thr thursday03/20/2020 06/06/2020 Inactive losartan 100 mg tablet RxNorm: 907220 TAKE 1 TABLET BY MOUTH EV RANDI DAY 03/20/2020 06/26/2020 Inactive Coumadin 2 mg tablet RxNorm: 044337 1 Tablet(s) Oral on and Thursday03/20/2020 02/25/2021 Inactive furosemide 40 mg tablet RxNorm: 816090 1 Tablet(s) Oral [facility] 020 06/07/2020 Inactive pravastatin 40 mg tablet RxNorm: 738688 TAKE 1 TABLET BY MOUTH EVERY DAY 02/07/2020 07/22/2020 Inactive losartan 100 mg tablet RxNorm: 216449 TAKE 1 TABLET BY MOUTH EV RANDI DAY 02/01/2020 03/19/2020 Inactive losartan 100 mg tablet RxNorm: 655848 TAKE 1 TABLET BY MOUTH EV RANDI DAY 01/17/2020 01/31/2020 Inactive Coumadin 2 mg tablet RxNorm: 159564 1 Tablet(s) Oral on and Thursday12/15/2019 12/15/2019 Inactive furosemide 40 mg tablet RxNorm: 678102 TAKE 1 TABLET BY MOUTH E VERY MORNING 12/14/2019 03/12/2020 Inactive pravastatin 40 mg tablet RxNorm: 407510 TAKE 1 TABLET BY MOUTH EVERY DAY 11/27/2019 02/06/2020 Inactive losartan 100 mg tablet RxNorm: 466282 1 Tablet(s) Oral QD 11/10/2019 01/16/2020 Inactive isosorbide mononitrate ER 30 mg tablet,extended release 24 h r RxNorm: 491965 TABLET(S) 1 TABLET(S) PO NEEDED 11/10/2019 05/08/2020 Inactive Patient requests 90 days supply carvedilol 25 mg tablet RxNorm: 869917 1 Tablet(s) Oral two antolin es a day 11/10/2019 05/08/2020 Inactive Coumadin 2 mg tablet RxNorm: 613430 1 Tablet(s) Oral on and Thursday11/10/2019 12/14/2019 Inactive losartan 100 mg tablet RxNorm: 733871 1 Tablet(s) Oral QD 11/10/2019 11/09/2019 Inactive levothyroxine 50 mcg tablet RxNorm: 139780 1 Tablet(s) Oral QD 10/2310/21/2020 Inactive Coumadin 4 mg tablet RxNorm: 061408 1 Tablet(s) Oral Thursday thr thursday11/10/2019 11/10/2019 Inactive losartan 50 mg tablet RxNorm: 106894 2 Tablet(s) Oral QD 11/01/2019 1 01/10/2019 Inactive potassium chloride ER 10 mEq capsule,extended release RxNorm : 776745 1 Capsule(s) Oral QD 10/26/2019 12/14/2019 Inactive potassium chloride ER 10 mEq tablet,extended release RxNorm: 214418 1 TABLET(S) ORAL QD 10/22/2019 04/18/2020 Inactive Replaces PA on 1 0MEQ Capsules Aspir-81 mg tablet,delayed release RxNorm: 247716 1 Tablet(s) O ral QD 10/11/2019 No Stop Date Active cyclobenzaprine 5 mg tablet RxNorm: 024526 1 Tablet(s) Oral two times a day as needed for muscle spasm 10/11/2019 03/19/2020 Inactive Coumadin 4 mg tablet RxNorm: 269169 1 Tablet(s) Oral Mo through Thursday and 1/2 tablet (2mg) on Sat/Sun 10/11/2019 11/09/2019 Inactive potassium chloride ER 10 mEq tablet,extended release RxNorm: 951698 1 Tablet(s) Oral QD 09/22/2019 09/21/2019 Inactive Replaces PA on 1 0MEQ Capsules potassium chloride ER 10 mEq tablet,extended release RxNorm: 202573 1 Tablet(s) Oral QD 09/22/2019 10/10/2019 Inactive Replaces PA on 1 0MEQ Capsules potassium chloride ER 10 mEq capsule,extended release RxNorm : 180194 1 Capsule(s) Oral QD 09/21/2019 09/21/2019 Inactive carvedilol 25 mg tablet RxNorm: 039160 1 Tablet(s) Oral two antolin es a day 08/23/2019 11/09/2019 Inactive isosorbide mononitrate ER 30 mg tablet,extended release 24 h r RxNorm: 711438 TABLET(S) 1 TABLET(S) PO NEEDED 08/22/2019 10/04/2020 Inactive Patient requests 90 days supply isosorbide mononitrate ER 30 mg tablet,extended release 24 h r RxNorm: 287529 Tablet(s) 1 TABLET(S) PO NEEDED 08/16/2019 08/21/2019 Inactive Patient requests 90 days supply levothyroxine 50 mcg tablet RxNorm: 993827 1 Tablet(s) PO QD 201811/09/2019 Inactive isosorbide mononitrate ER 30 mg tablet,extended release 24 h r RxNorm: 123958 Tablet(s) 1 TABLET(S) PO NEEDED 06/27/2019 08/15/2019 Inactive Patient requests 90 days supply isosorbide mononitrate ER 30 mg tablet,extended release 24 h r RxNorm: 947581 1 Tablet(s) PO QD as needed 06/27/2019 06/27/2019 Inactive Neris ent requests 90 days supply carvedilol 25 mg tablet RxNorm: 585996 1 TABLET(S) PO BID 06/27/2019 08/22/2019 Inactive furosemide 40 mg tablet RxNorm: 010118 1 Tablet(s) PO QAM 06/21/2019 12/13/2019 Inactive carvedilol 25 mg tablet RxNorm: 762062 1 Tablet(s) PO BID 05/13/2019 06/26/2019 Inactive Xanax 0.25 mg tablet RxNorm: 815908 1/2 Tablet(s) PO Q6H as needed 05/13/2019 09/07/2019 Inactive levothyroxine 50 mcg tablet RxNorm: 333642 1 Tablet(s) PO QD 201808/07/2019 Inactive losartan 50 mg tablet RxNorm: 314226 1 Tablet(s) PO QD 04/26/2019 Inactive losartan 50 mg tablet RxNorm: 871565 1 Tablet(s) PO QD 04/20/201901/2019 Inactive pravastatin 40 mg tablet RxNorm: 832615 1 Tablet(s) PO QD 04/07/2019 06/05/2019 Inactive isosorbide mononitrate ER 30 mg tablet,extended release 24 h r RxNorm: 246235 1 Tablet(s) PO as needed 04/07/2019 04/06/2019 Inactive isosorbide mononitrate ER 30 mg tablet,extended release 24 h r RxNorm: 086965 1 TABLET(S) PO NEEDED 04/07/2019 06/26/2019 Inactive Patient requests 90 days supply losartan 50 mg tablet RxNorm: 011472 1 Tablet(s) PO QD 03/22/2019 Inactive Prolia subcutaneous RxNorm: 091525 subcutaneous 02/19/2021 A ctive carvedilol 25 mg tablet RxNorm: 618332 1 Tablet(s) PO BID 05/13/2019 05/12/2019 Inactive losartan 50 mg tablet RxNorm: 534751 1 Tablet(s) PO QD 03/22/2019 Inactive Ventolin HFA 90 mcg/actuation aerosol inhaler RxNorm: 434150 1-2 Puff(s) INH as needed 09/08/2019 09/07/2019 Inactive furosemide 40 mg tablet RxNorm: 744431 1 Tablet(s) PO QAM 06/21/2019 06/20/2019 Inactive pravastatin 40 mg tablet RxNorm: 139964 1 Tablet(s) PO QD 04/07/2019 04/06/2019 Inactive Coumadin 2 mg tablet RxNorm: 896987 1 Tablet(s) PO Mon, Fri, Sat and Sun then 2 tablets (4mg) on , Thu and 10/11/2019 10/10/2019 Inactive isosorbide mononitrate ER 30 mg tablet,extended release 24 h r RxNorm: 098613 Tablet(s) PO as needed 04/07/2019 04/06/2019 Inactive Women's Multivitamin 18 mg iron-400 mcg-500 mg tablet RxNorm : 1 Tablet(s) PO QD 09/08/2019 09/07/2019 Inactive Vitamin D3 1000 units Capsule RxNorm: 3 Capsule(s) PO QD 9 09/07/2019 Inactive vitamin B complex capsule RxNorm: 1 Capsule(s) PO QD 09/08/2019 Inactive potassium chloride ER 10 mEq capsule,extended release RxNorm : 050027 1 Capsule(s) PO QD 09/21/2019 09/20/2019 Inactive levothyroxine 50 mcg tablet RxNorm: 837905 1 Tablet(s) PO QD 201804/25/2019 Inactive Medication Administered No Medication Administered data Immunizations Vaccine Codes Date Status Influenza CVX: 135 07/06/2020 Pneumovax CVX: 33 02/03/2020 Influenza CVX: 135 07/02/2019 Results Observation Observation Code Item Item Code Result Date S ervice Location PT 1437850 PT 28.3 Seconds 07/19/2021 Unknow n PT [id number] INR 2.6 07/19/2021 Unknown COMPREHENSIVE METABOLIC 01246 AST 20 U/L 2020 Unknown COMPREHENSIVE METABOLIC 12412 ALT 16 U/L 2020 Unknown COMPREHENSIVE METABOLIC 17440 BUN 35 mg/dL 2020 Unknown COMPREHENSIVE METABOLIC 06791 ALBUMIN 4.1 g/dL 2020 Unknown COMPREHENSIVE METABOLIC 45225 CHLORIDE 105 mmol/L 06/20 Unknown COMPREHENSIVE METABOLIC 60487 Bili Total 1.1 mg/dL 06/20 Unknown COMPREHENSIVE METABOLIC 14316 ALK PHOS 103 U/L 2020 Unknown COMPREHENSIVE METABOLIC 66387 SODIUM 139 mmol/L 06/20 Unknown COMPREHENSIVE METABOLIC 28867 CREATININE 0.99 mg/dL 05/24 Unknown COMPREHENSIVE METABOLIC 47284 CALCIUM 8.8 mg/dL 2020 Unknown COMPREHENSIVE METABOLIC 35471 POTASSIUM 4.7 mmol/L 06/20 Unknown COMPREHENSIVE METABOLIC 93129 Total Protein 6.2 g/dL Unknown COMPREHENSIVE METABOLIC 10774 Glucose 83 mg/dL 2020 Unknown COMPREHENSIVE METABOLIC 51571 Bicarbonate 27 mmol/L 05/24 Unknown COMPREHENSIVE METABOLIC 47355 AGAP 7 mmol/L 2020 Unknown COMPLETE BLOOD COUNT 2249395 WBC 4.5 10e9/L 06/20/20 21 Unknown COMPLETE BLOOD COUNT [id number] RBC 3.99 10e12/L 2020 Unknown COMPLETE BLOOD COUNT 8158006 HEMOGLOBIN 11.8 g/dL 06/20/20 21 Unknown COMPLETE BLOOD COUNT 2538805 HEMATOCRIT 36.6 % 06/20/20 21 Unknown COMPLETE BLOOD COUNT [id number] MCV 91.7 fL 1 Unknown COMPLETE BLOOD COUNT 8095337 MCH 29.6 pg 1 Unknown COMPLETE BLOOD COUNT 0133202 MCHC 32.2 g/dL 1 Unknown COMPLETE BLOOD COUNT 2662813 PLATELET COUNT 180 10e9/L Unknown COMPLETE BLOOD COUNT 0434652 Mean Plt Volume 11.1 fL Unknown COMPLETE BLOOD COUNT 3001595 Neut Auto 64.7 % 1 Unknown COMPLETE BLOOD COUNT 1694477 Lymph Auto 19.6 % 06/20/20 21 Unknown COMPLETE BLOOD COUNT 0716453 [place] Auto 13.5 % 1 Unknown COMPLETE BLOOD COUNT 3129792 RDW 15.1 % 1 Unknown COMPLETE BLOOD COUNT 6973962 Eos Auto 1.8 % 1 Unknown COMPLETE BLOOD COUNT 3050709 Baso Auto 0.4 % 1 Unknown COMPLETE BLOOD COUNT [id number] Neutrophil Abs 2.91 10e9/L Unknown COMPLETE BLOOD COUNT 8157426 Lymphocyte Abs 0.88 10e9/L Unknown COMPLETE BLOOD COUNT [id number] Monocyte Abs 0.61 10e9/L 05/24 Unknown COMPLETE BLOOD COUNT [id number] Eosinophil Abs 0.08 10e9/L Unknown COMPLETE BLOOD COUNT 8769498 RDW-SD 49.5 fL 1 Unknown COMPLETE BLOOD COUNT [id number] Basophil Abs 0.02 10e9/L 05/24 Unknown GFR CALC 0731380 GFR Non Afr Amr 53 mL/min 06/20/2021 Unk nown GFR CALC [id number] GFR Afr Amr >60 mL/min 06/20/2021 Unknow n PT [id number] PT 27.4 Seconds 06/20/2021 Unknow n PT [id number] INR 2.5 06/20/2021 Unknown PT [id number] PT 25.8 Seconds 05/21/2021 Unknow n PT [id number] INR 2.3 05/21/2021 Unknown FREE T4 34466 T4 Free 1.19 ng/dL 04/11/2021 Unknown PT [id number] PT 33.6 Seconds 04/11/2021 Unknow n PT [id number] INR 3.3 04/11/2021 Unknown THYROID STIMULATING HORMONE 80486 TSH 3.912 uIU/mL 04/11/2021 Unknown PT [id number] PT 33.1 Seconds 03/15/2021 Unknow n PT [id number] INR 3.2 03/15/2021 Unknown PT [id number] PT 24.6 Seconds 05/23/2020 Unknow n PT [id number] INR 2.2 05/23/2020 Unknown PT [id number] PT 31.4 Seconds 10/26/2019 Unknow n PT [id number] INR 2.9 10/26/2019 Unknown PT [id number] PT 17.6 Seconds 10/11/2019 Unknow n PT [id number] INR 1.4 10/11/2019 Unknown PT [id number] PT 23.7 Seconds 09/08/2019 Unknow n PT [id number] INR 2.0 09/08/2019 Unknown PT [id number] PT 23.2 Seconds 07/29/2019 Unknow n PT [id number] INR 2.0 07/29/2019 Unknown PT [id number] PT 14.3 Seconds 07/18/2019 Unknow n PT [id number] INR 1.1 07/18/2019 [place] [address] Glucose 75 mg/dL 07/06 [place] [address] CREATININE 0.61 mg/dL [place] [address] BUN 15 mg/dL 07/06 [place] [address] SODIUM 142 mmol/L 06/23 [place] [address] POTASSIUM 4.0 mmol/L 06/23 [place] [address] CHLORIDE 106 mmol/L 06/23 [place] [address] Bicarbonate 28 mmol/L [place] [address] AGAP 8 mmol/L 07/06 [place] [address] CALCIUM 9.3 mg/dL 07/06 Unknown PT [id number] PT 17.4 Seconds 07/06/2019 Unknow n PT [id number] INR 1.4 07/06/2019 Unknown GFR CALC 8613144 GFR Non Afr Amr >60 mL/min 07/06/2019 Un known GFR CALC [id number] GFR Afr Amr >60 mL/min 07/06/2019 Unknow n COMPLETE BLOOD COUNT 9942333 WBC 4.7 10e9/L 07/06/20 19 Unknown COMPLETE BLOOD COUNT [id number] RBC 4.19 10e12/L 2018 Unknown COMPLETE BLOOD COUNT 5898186 HEMOGLOBIN 12.6 g/dL 07/06/20 19 Unknown COMPLETE BLOOD COUNT 4595344 HEMATOCRIT 39.4 % 07/06/20 19 Unknown COMPLETE BLOOD COUNT 2132479 MCV 94.0 fL 9 Unknown COMPLETE BLOOD COUNT 8439507 MCH 30.1 pg 9 Unknown COMPLETE BLOOD COUNT 6407550 MCHC 32.0 g/dL 9 Unknown COMPLETE BLOOD COUNT 1812955 PLATELET COUNT 160 10e9/L Unknown COMPLETE BLOOD COUNT 6619672 Mean Plt Volume 11.0 fL Unknown COMPLETE BLOOD COUNT 0008394 Neut Auto 56.6 % 9 Unknown COMPLETE BLOOD COUNT 1312378 Lymph Auto 27.0 % 07/06/20 19 Unknown COMPLETE BLOOD COUNT [id number] [place] Auto 13.7 % 9 Unknown COMPLETE BLOOD COUNT 8264618 RDW 14.6 % 9 Unknown COMPLETE BLOOD COUNT 7382420 Eos Auto 2.1 % 9 Unknown COMPLETE BLOOD COUNT 1080451 Baso Auto 0.6 % 9 Unknown COMPLETE BLOOD COUNT 9554407 Neutrophil Abs 2.66 10e9/L Unknown COMPLETE BLOOD COUNT [id number] Lymphocyte Abs 1.27 10e9/L Unknown COMPLETE BLOOD COUNT 3714052 Monocyte Abs 0.64 10e9/L 06/23 Unknown COMPLETE BLOOD COUNT 4404889 Eosinophil Abs 0.10 10e9/L Unknown COMPLETE BLOOD COUNT 7763691 RDW-SD 48.7 fL 9 Unknown COMPLETE BLOOD COUNT 3835974 Basophil Abs 0.03 10e9/L 06/23 Unknown COMPLETE BLOOD COUNT 8621388 WBC 4.6 10e9/L 06/14/20 19 Unknown COMPLETE BLOOD COUNT [id number] RBC 4.16 10e12/L 2018 Unknown COMPLETE BLOOD COUNT 4670850 HEMOGLOBIN 12.6 g/dL 06/14/20 19 Unknown COMPLETE BLOOD COUNT 8335057 HEMATOCRIT 39.1 % 06/14/20 19 Unknown COMPLETE BLOOD COUNT 1170862 MCV 94.0 fL 9 Unknown COMPLETE BLOOD COUNT 1507704 MCH 30.3 pg 9 Unknown COMPLETE BLOOD COUNT 2482261 MCHC 32.2 g/dL 9 Unknown COMPLETE BLOOD COUNT 7159279 PLATELET COUNT 167 10e9/L Unknown COMPLETE BLOOD COUNT 6956801 Mean Plt Volume 10.9 fL Unknown COMPLETE BLOOD COUNT 1306294 Neut Auto 59.6 % 9 Unknown COMPLETE BLOOD COUNT 2341319 Lymph Auto 24.1 % 06/14/20 19 Unknown COMPLETE BLOOD COUNT 5068088 [place] Auto 14.0 % 9 Unknown COMPLETE BLOOD COUNT 9177387 RDW 14.8 % 9 Unknown COMPLETE BLOOD COUNT 2338446 Eos Auto 1.9 % 9 Unknown COMPLETE BLOOD COUNT 8779064 Baso Auto 0.4 % 9 Unknown COMPLETE BLOOD COUNT 9399790 Neutrophil Abs 2.74 10e9/L Unknown COMPLETE BLOOD COUNT 7914927 Lymphocyte Abs 1.11 10e9/L Unknown COMPLETE BLOOD COUNT 4729581 Monocyte Abs 0.64 10e9/L 05/24 Unknown COMPLETE BLOOD COUNT 2091685 Eosinophil Abs 0.09 10e9/L Unknown COMPLETE BLOOD COUNT 7000703 RDW-SD 49.3 fL 9 Unknown COMPLETE BLOOD COUNT 1346295 Basophil Abs 0.02 10e9/L 05/24 Unknown PT [id number] PT 22.3 Seconds 06/14/2019 Unknow n PT [id number] INR 1.9 06/14/2019 Unknown COMPLETE BLOOD COUNT 8645045 WBC 4.0 10e9/L 05/13/20 19 Unknown COMPLETE BLOOD COUNT [id number] RBC 3.82 10e12/L 2018 Unknown COMPLETE BLOOD COUNT [id number] HEMOGLOBIN 11.5 g/dL 05/13/20 19 Unknown COMPLETE BLOOD COUNT 5283640 HEMATOCRIT 36.4 % 05/13/20 19 Unknown COMPLETE BLOOD COUNT 3546604 MCV 95.3 fL 9 Unknown COMPLETE BLOOD COUNT 8995816 MCH 30.1 pg 9 Unknown COMPLETE BLOOD COUNT 8848423 MCHC 31.6 g/dL 9 Unknown COMPLETE BLOOD COUNT 8406348 PLATELET COUNT 175 10e9/L Unknown COMPLETE BLOOD COUNT 9794104 Mean Plt Volume 10.5 fL Unknown COMPLETE BLOOD COUNT 9638988 Neut Auto 63.2 % 9 Unknown COMPLETE BLOOD COUNT 1652770 Lymph Auto 22.0 % 05/13/20 19 Unknown COMPLETE BLOOD COUNT 9689161 [place] Auto 12.1 % 9 Unknown COMPLETE BLOOD COUNT 8105515 RDW 14.9 % 9 Unknown COMPLETE BLOOD COUNT 0947295 Eos Auto 2.2 % 9 Unknown COMPLETE BLOOD COUNT 9151562 Baso Auto 0.5 % 9 Unknown COMPLETE BLOOD COUNT 7834047 Neutrophil Abs 2.53 10e9/L Unknown COMPLETE BLOOD COUNT 5562982 Lymphocyte Abs 0.88 10e9/L Unknown COMPLETE BLOOD COUNT 5845842 Monocyte Abs 0.48 10e9/L 04/24 Unknown COMPLETE BLOOD COUNT 8532841 Eosinophil Abs 0.09 10e9/L Unknown COMPLETE BLOOD COUNT 5301831 RDW-SD 49.6 fL 9 Unknown COMPLETE BLOOD COUNT 9362643 Basophil Abs 0.02 10e9/L 04/24 Unknown COMPREHENSIVE METABOLIC 20630 AST 18 U/L 2018 Unknown COMPREHENSIVE METABOLIC 95086 ALT 14 U/L 2018 Unknown COMPREHENSIVE METABOLIC 37919 BUN 15 mg/dL 2018 Unknown COMPREHENSIVE METABOLIC 31533 ALBUMIN 4.0 g/dL 2018 Unknown COMPREHENSIVE METABOLIC 22762 CHLORIDE 108 mmol/L 05/13 Unknown COMPREHENSIVE METABOLIC 00405 Bili Total 0.9 mg/dL 05/13 Unknown COMPREHENSIVE METABOLIC 25568 ALK PHOS 84 U/L 2018 Unknown COMPREHENSIVE METABOLIC 42360 SODIUM 142 mmol/L 05/13 Unknown COMPREHENSIVE METABOLIC 33479 CREATININE 0.72 mg/dL 04/24 Unknown COMPREHENSIVE METABOLIC 09754 CALCIUM 8.9 mg/dL 2018 Unknown COMPREHENSIVE METABOLIC 67699 POTASSIUM 4.0 mmol/L 05/13 Unknown COMPREHENSIVE METABOLIC 49286 Total Protein 5.5 g/dL Unknown COMPREHENSIVE METABOLIC 90975 Glucose 95 mg/dL 2018 Unknown COMPREHENSIVE METABOLIC 54312 Bicarbonate 27 mmol/L 04/24 Unknown COMPREHENSIVE METABOLIC 29078 AGAP 7 mmol/L 2018 Unknown GFR CALC 3588440 GFR Non Afr Amr >60 mL/min 05/13/2019 Un known GFR CALC [id number] GFR Afr Amr >60 mL/min 05/13/2019 Unknow n THYROID STIMULATING HORMONE 94801 TSH 2.669 uIU/mL 05/13/2019 Unknown FREE T4 18176 T4 Free 1.19 ng/dL 05/13/2019 Unknown PT [id number] PT 24.2 Seconds 05/06/2019 Unknow n PT [id number] INR 2.1 05/06/2019 Unknown PT [id number] PT 24.1 Seconds 03/08/2019 Unknow n PT [id number] INR 2.9 03/08/2019 Unknown Procedures Procedure Codes Date ROUTINE VENIPUNCTURE CPT-4: 09979 07/19/2021 PROTHROMBIN TIME CPT-4: 99539 07/19/2021 ROUTINE VENIPUNCTURE CPT-4: 03057 06/20/2021 COMPREHEN METABOLIC PANEL CPT-4: 44627 06/20/2021 COMPLETE CBC W/AUTO DIFF WBC CPT-4: 24974 06/20/2021 PROTHROMBIN TIME CPT-4: 07099 06/20/2021 PT CPT-4: 5206581 05/16/2021 ROUTINE VENIPUNCTURE CPT-4: 41909 05/16/2021 ROUTINE VENIPUNCTURE CPT-4: 83500 04/11/2021 PROTHROMBIN TIME CPT-4: 44210 04/11/2021 ASSAY OF FREE THYROXINE CPT-4: 26870 04/11/2021 ASSAY THYROID STIM HORMONE CPT-4: 68550 04/11/2021 ROUTINE VENIPUNCTURE CPT-4: 82718 03/15/2021 PT CPT-4: 7891422 03/15/2021 ROUTINE VENIPUNCTURE CPT-4: 44143 02/22/2021 COMPREHEN METABOLIC PANEL CPT-4: 57416 02/22/2021 ASSAY OF FREE THYROXINE CPT-4: 56733 02/22/2021 ASSAY THYROID STIM HORMONE CPT-4: 22122 02/22/2021 COMPLETE CBC W/AUTO DIFF WBC CPT-4: 58258 02/22/2021 PROTHROMBIN TIME CPT-4: 67240 02/22/2021 LIPID PANEL CPT-4: 92247 02/22/2021 PPPS, subseq visit CPT-4: G0439 09/26/2020 ROUTINE VENIPUNCTURE CPT-4: 82164 05/23/2020 PROTHROMBIN TIME CPT-4: 28063 05/23/2020 ROUTINE VENIPUNCTURE CPT-4: 54194 01/20/2020 PT CPT-4: 3340293 01/20/2020 ROUTINE VENIPUNCTURE CPT-4: 29625 12/15/2019 PROTHROMBIN TIME CPT-4: 54855 12/15/2019 ROUTINE VENIPUNCTURE CPT-4: 35703 11/10/2019 PROTHROMBIN TIME CPT-4: 66044 11/10/2019 PROTHROMBIN TIME CPT-4: 94677 10/26/2019 ROUTINE VENIPUNCTURE CPT-4: 45995 10/26/2019 ROUTINE VENIPUNCTURE CPT-4: 44181 10/11/2019 PT CPT-4: 1611573 10/11/2019 PPPS, initial visit CPT-4: G0438 09/20/2019 ROUTINE VENIPUNCTURE CPT-4: 76438 09/08/2019 PT CPT-4: 7185015 09/08/2019 THER/PROPH/DIAG INJ SC/IM CPT-4: 19397 09/08/2019 TRIAMCINOLONE ACET INJ NOS CPT-4: J3301 09/08/2019 ROUTINE VENIPUNCTURE CPT-4: 09342 07/29/2019 PT CPT-4: 4270371 07/29/2019 ROUTINE VENIPUNCTURE CPT-4: 44139 07/18/2019 PT CPT-4: 8077589 07/18/2019 METABOLIC PANEL TOTAL CA CPT-4: 90092 07/06/2019 COMPLETE CBC W/AUTO DIFF WBC CPT-4: 23324 07/06/2019 PROTHROMBIN TIME CPT-4: 71066 07/06/2019 ROUTINE VENIPUNCTURE CPT-4: 23175 06/14/2019 PROTHROMBIN TIME CPT-4: 62362 06/14/2019 COMPLETE CBC W/AUTO DIFF WBC CPT-4: 30763 06/14/2019 ROUTINE VENIPUNCTURE CPT-4: 91860 05/13/2019 COMPREHEN METABOLIC PANEL CPT-4: 61720 05/13/2019 COMPLETE CBC W/AUTO DIFF WBC CPT-4: 21520 05/13/2019 ASSAY THYROID STIM HORMONE CPT-4: 71802 05/13/2019 ASSAY OF FREE THYROXINE CPT-4: 11707 05/13/2019 PT CPT-4: 0662085 05/06/2019 ROUTINE VENIPUNCTURE CPT-4: 89256 05/06/2019 PT CPT-4: 2649213 04/07/2019 ROUTINE VENIPUNCTURE CPT-4: 60810 04/07/2019 ROUTINE VENIPUNCTURE CPT-4: 50843 03/08/2019 PROTHROMBIN TIME CPT-4: 88385 03/08/2019 Vital Signs Date Vital 08/20/2021 Blood Pressure 1: 127/69 Code: 8480-6 Heart Rate 1: 84 bpm Respiratory Rate: 17 bpm SpO2: 98% Temperature: 36.7 (C) / 98.1 (F) We ight: 208 lbs Code: 09587-0 05/16/2021 Blood Pressure 1: 136/64 Code: 8480-6 BMI: 37.0 Code: 39943-8 Heart Rate 1: 61 bpm Height: 5'3" Code: 8302-2 Respiratory Rate: 16 bpm SpO2: 98% Temperature: 36.2 (C) / 97.1 (F) Weight: 212 lbs Code: 45579-3 03/05/2021 Blood Pressure 1: 134/76 Code: 8480-6 Heart Rate 1: 66 bpm Respiratory Rate: 16 bpm SpO2: 100% Temperature: 37.1 (C) / 98.7 (F) We ight: 203 lbs Code: 66392-7 02/19/2021 Blood Pressure 1: 126/70 Code: 8480-6 BMI: 35.4 Code: 98238-7 Heart Rate 1: 72 bpm Height: 5'3" Code: 8302-2 Respiratory Rate: 16 bpm SpO2: 99% Temperature: 36.3 (C) / 97.3 (F) Weight: 203 lbs Code: 52036-9 01/16/2021 Blood Pressure 1: 112/74 Code: 8480-6 Heart Rate 1: 76 bpm Respiratory Rate: 20 bpm Temperature: 36.7 (C) / 98.0 (F) Weight: 205 lbs Code : 67891-4 11/19/2020 Blood Pressure 1: 120/78 Code: 8480-6 Heart Rate 1: 88 bpm Temperature: 36.6 (C) / 97.8 (F) 11/12/2020 Blood Pressure 1: 110/57 Code: 8480-6 Heart Rate 1: 68 bpm Respiratory Rate: 15 bpm SpO2: 100% Weight: 202 lbs Code: 77460 -7 10/12/2020 Blood Pressure 1: 114/70 Code: 8480-6 Heart Rate 1: 84 bpm Respiratory Rate: 18 bpm SpO2: 98% Temperature: 36.7 (C) / 98.0 (F) 09/26/2020 Blood Pressure 1: 120/72 Code: 8480-6 BMI: 35.2 Code: 65610-4 Heart Rate 1: 76 bpm Height: 5'3" Code: 8302-2 Respiratory Rate: 20 bpm SpO2: 97% Temperature: 36.7 (C) / 98.0 (F) Weight: 202 lbs Code: 70169-5 08/27/2020 Blood Pressure 1: 126/82 Code: 8480-6 Heart Rate 1: 80 bpm Respiratory Rate: 20 bpm Temperature: 36.2 (C) / 97.1 (F) Weight: 198 lbs Code : 77240-9 05/23/2020 Blood Pressure 1: 120/78 Code: 8480-6 Heart Rate 1: 68 bpm Respiratory Rate: 20 bpm SpO2: 97% Temperature: 36.4 (C) / 97.5 (F) We ight: 200 lbs Code: 34348-9 05/02/2020 Blood Pressure 1: 133/81 Code: 8480-6 Heart Rate 1: 74 bpm Weight: 202 lbs Code: 39424-8 12/15/2019 Blood Pressure 1: 126/82 Code: 8480-6 Heart Rate 1: 64 bpm Respiratory Rate: 20 bpm SpO2: 97% Temperature: 36.6 (C) / 97.8 (F) We ight: 201 lbs Code: 27801-5 11/03/2019 Blood Pressure 1: 142/82 Code: 8480-6 [...] / 98.1 (F) Weight: 204 lbs Code: 51162-2 09/20/2019 Blood Pressure 1: 122/68 Code: 8480-6 BMI: 35.0 Code: 65134-3 Heart Rate 1: 72 bpm Height: 5'3" Code: 8302-2 Respiratory Rate: 18 bpm SpO2: 95% Temperature: 36.8 (C) / 98.3 (F) Weight: 201 lbs Code: 64289-0 09/08/2019 Blood Pressure 1: 118/72 Code: 8480-6 Heart Rate 1: 82 bpm SpO2: 97% Temperature: 36.3 (C) / 97.4 (F) Weight: 208 lbs Code: 39759-6 06/14/2019 Blood Pressure 1: 128/84 Code: 8480-6 Heart Rate 1: 72 bpm Respiratory Rate: 20 bpm SpO2: 98% Temperature: 36.7 (C) / 98.1 (F) We ight: 209 lbs Code: 06237-5 05/13/2019 Blood Pressure 1: 144/90 Code: 8480-6 Heart Rate 1: 88 bpm Respiratory Rate: 24 bpm SpO2: 96% Temperature: 37.1 (C) / 98.8 (F) We ight: 210 lbs Code: 88799-1 05/02/2019 Blood Pressure 1: 128/80 Code: 8480-6 Heart Rate 1: 84 bpm Respiratory Rate: 20 bpm SpO2: 95% Temperature: 36.6 (C) / 97.9 (F) We ight: 209 lbs Code: 98436-1 03/22/2019 Blood Pressure 1: 122/70 Code: 8480-6 He art Rate 1: 85 bpm 03/08/2019 Blood Pressure 1: 114/78 Code: 8480-6 BMI: 36.1 Code: 09730-7 Heart Rate 1: 76 bpm Height: 5'3" Code: 8302-2 Respiratory Rate: 20 bpm SpO2: 97% Temperature: 37.1 (C) / 98.8 (F) Weight: 207 lbs Code: 97450-0 Functional Status No Functional Status data Reason [...] Left breast lump[ICD10: N63.20] Remedios ANGELES CPT-4: 81526 08/20/2021 ([id number]) NURSE/OUTPATIENT VISIT EST Diagnosis: Long-term (current) use of anticoagulants, INR goal 2.0-3.0[ICD10: Z79.01] Jeanie JENNINGSLINE David BLACK [employer] CPT-4: 96260 07/19/2021 ([id number]) NURSE/OUTPATIENT VISIT EST Diagnosis: Essential (primary) hypertension[ICD10: I10] Diagnosis: Chronic atrial fibrillation[ICD10: I48.20] Diagnosis: Long-term (current) use of anticoagulants, INR goal 2.0-3.0[ICD10: Z79.01] Diagnosis: Anemia, unspecified[ICD10: D64.9] Jeanie TURK Fidel BLACK [employer] CPT-4: 06553 06/20/2021 ([id number]) OFFICE/OUTPATIENT VISIT EST Diagnosis: Long-term (current) use of anticoagulants, INR goal 2.0-3.0[ICD10: Z79.01] Diagnosis: Essential (primary) hypertension[ICD10: I10] Diagnosis: Chronic congestive heart failure with left ventricular diastolic dysfunction[ICD10: I50.32] Diagnosis: Severe obesity (BMI 35.0-39.9) with comorbidity[ICD10: E66.01] Diagnosis: Chronic atrial fibrillation[ICD10: I48.20] Diagnosis: Obstructive sleep apnea syndrome[ICD10: G47.33] Remedios Buenrostrohollis JEANIE BLACK [employer] CPT-4: 50549 05/16/2021 ([id number]) NURSE/OUTPATIENT VISIT EST Diagnosis: Hypothyroidism, unspecified[ICD10: E03.9] Diagnosis: Long-term (current) use of anticoagulants, INR goal 2.0-3.0[ICD10: Z79.01] Jeanie Avendañonela JEANIE David BLACK [employer] CPT-4: 60975 04/11/2021 ([id number]) NURSE/OUTPATIENT VISIT EST Diagnosis: Long-term (current) use of anticoagulants, INR goal 2.0-3.0[ICD10: Z79.01] Jeanie Avendañonela JEANIE David BLACK [employer] CPT-4: 44015 03/15/2021 ([id number]) OFFICE/OUTPATIENT VISIT EST Diagnosis: Essential hypertension[ICD10: I10] Diagnosis: Cheilitis[ICD10: K13.0] Diagnosis: Pulmonary hypertension[ICD10: I27.20] Jeanie Donisanirudh ANTON BLACK [employer] [facility] CPT-4: 28880 03/05/2021 ([id number]) NURSE/OUTPATIENT VISIT EST Diagnosis: Essential (primary) hypertension[ICD10: I10] Diagnosis: Hypothyroidism, unspecified[ICD10: E03.9] Diagnosis: Long-term (current) use of anticoagulants, INR goal 2.0-3.0[ICD10: Z79.01] Diagnosis: Mixed hyperlipidemia[ICD10: E78.2] Jeanie JENNINGSPARAG RAFI David BLACK [employer] CPT-4: 20577 02/22/2021 ([id number]) OFFICE/OUTPATIENT VISIT EST Diagnosis: Cheilitis[ICD10: K13.0] Diagnosis: Encounter for medication review and counseling[ICD10: Z71.89] Diagnosis: Long-term (current) use of anticoagulants, INR goal 2.0-3.0[ICD10: Z79.01] Diagnosis: Hypothyroidism, unspecified[ICD10: E03.9] Diagnosis: Mixed hyperlipidemia[ICD10: E78.2] Diagnosis: Severe obesity (BMI 35.0-39.9) with comorbidity[ICD10: E66.01] Diagnosis: Chronic congestive heart failure with left ventricular diastolic dysfunction[ICD10: I50.32] Remdeios JENNINGSLINE OfeAxel HECTORER [employer] CPT- 4: 82559 02/19/2021 ([id number]) OFFICE/OUTPATIENT VISIT EST Diagnosis: Cheilitis[ICD10: K13.0] Jannette JENNINGSLINE S. DONISND ER [employer] [facility] CPT-4: 77618 01/16/2021 ([id number]) OFFICE/OUTPATIENT VISIT EST Diagnosis: Hypotension[ICD10: I95.9] Diagnosis: Dizziness[ICD10: R42] Jannette Tiarraelva CONNELL S. DONISNDER DO C CPT-4: 13269 11/12/2020 ([id number]) OFFICE/OUTPATIENT VISIT EST Diagnosis: Thoracic back pain[ICD10: M54.6] Diagnosis: Dizziness[ICD10: R42] Jannette Tiarrapeg ORTEZQUELINE S. DONISNDER DO LL C CPT-4: 59625 10/12/2020 ([id number]) OFFICE/OUTPATIENT VISIT EST Diagnosis: Chronic atrial fibrillation[ICD10: I48.20] Diagnosis: Chronic airway obstruction, not elsewhere classified[ICD10: J44.9] Diagnosis: Essential hypertension[ICD10: I10] Jeanie JENNINGSPARAG RAFI David BLACK DO [facility] CPT-4: 57786 08/27/2020 ([id number]) OFFICE/OUTPATIENT VISIT EST Diagnosis: Essential (primary) hypertension[ICD10: I10] Diagnosis: Chronic atrial fibrillation[ICD10: I48.20] Diagnosis: COPD (chronic obstructive pulmonary disease)[ICD10: J44.9] Diagnosis: Dyspnea[ICD10: R06.00] Diagnosis: Left hip pain[ICD10: M25.552] Jeanie Black JEANIE David BLACK DO [facility] CPT-4: 97540 05/23/2020 ([id number]) NURSE/OUTPATIENT VISIT EST Diagnosis: Essential (primary) hypertension[ICD10: I10] Jeanie Black JEANIE David BLACK DO [facility] CPT-4: 65130 05/02/2020 ([id number]) OFFICE/OUTPATIENT VISIT EST Diagnosis: COPD (chronic obstructive pulmonary disease)[ICD10: J44.9] Diagnosis: Chronic atrial fibrillation[ICD10: I48.20] Diagnosis: Essential hypertension[ICD10: I10] [facility] CPT-[facility]: 63478 03/20/2020 ([id number]) NURSE/OUTPATIENT VISIT EST Diagnosis: Long-term (current) use of anticoagulants, INR goal 2.0-3.0[ICD10: Z79.01] Jeanie Black JEANIE David BLACK DO [facility] CPT-4: 11025 01/20/2020 ([id number]) OFFICE/OUTPATIENT VISIT EST Diagnosis: COPD (chronic obstructive pulmonary disease)[ICD10: J44.9] Diagnosis: Long-term (current) use of anticoagulants, INR goal 2.0-3.0[ICD10: Z79.01] Diagnosis: History of recent fall[ICD10: Z91.81] Jeanie AGUILERA OfeAxel VARUN MCCURDY [facility] CPT-4: 59356 12/15/2019 ([id number]) NURSE/OUTPATIENT VISIT EST Diagnosis: Long-term (current) use of anticoagulants, INR goal 2.0-3.0[ICD10: Z79.01] Jeanie BLACK DO [facility] CPT-4: 78576 11/10/2019 ([id number]) OFFICE/OUTPATIENT VISIT EST Diagnosis: Post concussion syndrome[ICD10: F07.81] Diagnosis: Head contusion[ICD10: S00.93XA] Diagnosis: Chronic airway obstruction, not elsewhere classified[ICD10: J44.9] Jeanie BLACK DO [employer] CPT-4: 07597 11/03/2019 ([id number]) OFFICE/OUTPATIENT VISIT EST Diagnosis: Fall as cause of accidental injury at home as place of occurrence[ICD10: W19.XXXA] Diagnosis: Headache[ICD10: R51] Diagnosis: Essential (primary) hypertension[ICD10: I10] Diagnosis: Long-term (current) use of anticoagulants, INR goal 2.0-3.0[ICD10: Z79.01] Diagnosis: Ecchymosis of left eye[ICD10: S05.12XA] Jannette BLACK [employer] CPT-4: 15424 10/31/2019 ([id number]) NURSE/OUTPATIENT VISIT EST Diagnosis: Long-term (current) use of anticoagulants, INR goal 2.0-3.0[ICD10: Z79.01] Jeanie BLACK DO [employer] CPT-4: 99926 10/26/2019 ([id number]) OFFICE/OUTPATIENT VISIT EST Diagnosis: Long-term (current) use of anticoagulants, INR goal 2.0-3.0[ICD10: Z79.01] Diagnosis: Pain in right arm[ICD10: M79.601] Diagnosis: Radiculopathy of arm[ICD10: M54.10] Jannette BLACK [employer] CPT-4: 25927 10/11/2019 ([id number]) OFFICE/OUTPATIENT VISIT EST Diagnosis: Long-term (current) use of anticoagulants, INR goal 2.0-3.0[ICD10: Z79.01] Diagnosis: Sinusitis[ICD10: J32.9] Diagnosis: Pain in right arm[ICD10: M79.601] Jannette BLACK [employer] CPT-4: 54109 09/08/2019 ([id number]) NURSE/OUTPATIENT VISIT EST Diagnosis: Chronic atrial fibrillation[ICD10: I48.2] Diagnosis: Encounter for therapeutic drug level monitoring[ICD10: Z51.81] Jeanie BLACK DO [facility] CPT-4: 87340 07/29/2019 ([id number]) NURSE/OUTPATIENT VISIT EST Diagnosis: Chronic atrial fibrillation[ICD10: I48.2] Diagnosis: Encounter for therapeutic drug level monitoring[ICD10: Z51.81] Jeanie BLACK [employer] [facility] CPT-4: 63964 07/18/2019 ([id number]) NURSE/OUTPATIENT VISIT EST Diagnosis: Encounter for therapeutic drug level monitoring[ICD10: Z51.81] Diagnosis: Chronic atrial fibrillation[ICD10: I48.2] Diagnosis: Essential (primary) hypertension[ICD10: I10] Jeanie BLACK [employer] CPT-4: 06327 07/06/2019 ([id number]) OFFICE/OUTPATIENT VISIT EST Diagnosis: Encounter for therapeutic drug level monitoring[ICD10: Z51.81] Diagnosis: Anemia, unspecified[ICD10: D64.9] Diagnosis: Bitten by dog, sequela[ICD10: W54.0XXS] 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] Jeanie BLACK [employer] CPT-4: 75898 06/14/2019 ([id number]) OFFICE/OUTPATIENT VISIT EST Diagnosis: Bitten by dog, sequela[ICD10: W54.0XXS] Diagnosis: Other fatigue[ICD10: R53.83] Diagnosis: Hypothyroidism, unspecified[ICD10: E03.9] Diagnosis: Muscle weakness (generalized)[ICD10: M62.81] Diagnosis: Generalized anxiety disorder[ICD10: F41.1] Jannette BLACK [employer] CPT-4: 52252 05/13/2019 ([id number]) NURSE/OUTPATIENT VISIT EST Diagnosis: Encounter for therapeutic drug level monitoring[ICD10: Z51.81] Jeanie CONNELL OfeAxel VARUN [employer] CPT-4: 27802 05/06/2019 ([id number]) OFFICE/OUTPATIENT VISIT EST Diagnosis: Bitten by dog, sequela[ICD10: W54.0XXS] Diagnosis: Pain in right wrist[ICD10: M25.531] Diagnosis: Abrasion of right upper arm, sequela[ICD10: S40.811S] Diagnosis: Abrasion of left upper arm, sequela[ICD10: S40.812S] Jannette Mayen JEANIE [employer]fe[employer] VARUN [employer] CPT-4: 04102 05/02/2019 ([id number]) NURSE/OUTPATIENT VISIT EST Diagnosis: Encounter for therapeutic drug level monitoring[ICD10: Z51.81] Jeanie CONNELL OfeAxel VAR[employer] CPT-4: 79551 04/07/2019 ([id number]) OFFICE/OUTPATIENT VISIT NEW Diagnosis: Encounter for therapeutic drug level monitoring[ICD10: Z51.81] Diagnosis: Chronic atrial fibrillation[ICD10: I48.2] Diagnosis: Essential (primary) hypertension[ICD10: I10] Diagnosis: Abnormal findings on diagnostic imaging of heart and coronary circulation[ICD10: R93.1] Diagnosis: Other forms of dyspnea[ICD10: R06.09] Diagnosis: Hypothyroidism, unspecified[ICD10: E03.9] Diagnosis: Mixed hyperlipidemia[ICD10: E78.2] Jeanie MCKEE Ofe[employer]el VARUN [employer] CPT-4: 61074 03/08/2019 Plan of Care Planned Activity Notes Codes Status Date Visit Diagnosis Plan: Left breast lump Discussion: [place]as [place] get US of left breast and soft tissue under breast and f/u with results. F/U for sooner for concerns. ICD-9 : 611.72 ICD-10 : N63.20 08/20/2021 App[facility]ment: Jean[facility] [phone] [id number] [facility] CANCELED 08/20/2021 Appointment: Remedios Cavazos [facility]el[facility] [phone] [facility] [facility] 08/20/2021 Patient Education: Patient Medication Summary Completed 08/20/2021 Appointment: Jeanie Black WPtel: [address] [place], [place] [address] see note in chart from 08/08/21 (km) CANCELED 08/08/2021 Appointment: Jeanie Black WPtel: [phone] [facility] US LAB 07/19/2021 Appointment: Jeanie Black WPtel: [address] [place], [place] [phone] US LAB 06/20/2021 Visit Diagnosis Plan: Severe [...] [facility]Ptel: [phone] [facility] [facility] MEDICATION REVIEW 05/16/2021 Patient Education: Patient Medication Summary Completed 05/16/2021 Patient Education: isosorbide mononitrate- [employer] Coupon [id number] https://www.[employer]/copygram/resources/getResourN4G.com/61/e9t7b8n7-w426-205s-z4 Completed 05/16/2021 Patient Education: High Blood Pressure Co mpleted 05/16/2021 Appointment: Jeanie Black WPtel: [address] [place], [place] [phone] US LAB 04/11/2021 Appointment: Jeanie Black WPtel: [address] [place], [place] [phone] US CANCELED 03/27/2021 Appointment: Jeanie Black WPtel: [address] [place], [place] [phone] US LAB 03/15/2021 Visit Diagnosis Plan: Pulmonary [...] : I10 03/05/2021 Appointment: Jeanie Black WPtel: [address] [place], [place] [phone] US FOLLOW UP 03/05/2021 Patient Education: spironolactone- [employer] Coupon 1 [id number] https://www.[employer]/copygram/resources/getResource/61/8kg34zn9-6m5n-2v66-9o Completed 03/05/2021 Appointment: Jeanie Black WPtel: [phone] [id number] US LAB 02/22/2021 Visit Diagnosis Plan: Cheilitis [...] 02/19/2021 Appointment: Remedios Cavazos WPtel: [phone] MEDICATION REVIEW 02/19/2021 Patient Education: Patient [...] ICD-10 : K13.0 01/16/2021 Appointment: Jannette Mayen [address] [place] [address] ACUTE ILLNESS 01/16/2021 Appointment: Jeanie Black WPtel: [phone] BP CHECK 11/19/2020 Visit Diagnosis Plan: [...] ICD-10 : I95.9 11/12/2020 Appointment: Jannette Mayen [address] [place] [address] ACUTE ILLNESS 11/12/2020 Visit Diagnosis Plan: Thoracic [...] : R42 10/12/2020 Appointment: Jannette Mayen [facility] ACUTE ILL[facility] 10/12/2020 Visit Diagnosis Plan: Chronic atrial fibrillation Disc ussion: Following routinely with cardiology ICD-9 : 427.31 ICD-10 : I48.20 09/26/2020 Visit Diagnosis Plan: Essential (primary) hypertension Discussion: Stable ICD-9 : 401.9 ICD-10 : I10 09/26/2020 Visit Diagnosis Plan: [facility] for [facility] medical examination without abnormal [...] : I50.32 09/26/2020 Appointment: Jeanie Black WPtel: [facility] [place] [id number] Annual Well Visit 09/26/2020 Care Plan: Referral Order SNOMED-CT : 30 [id number] Pending 09/26/2020 Visit Diagnosis Plan: Chronic airway [...] I48.20 08/27/2020 Appointment: Jeanie Black WPtel: [phone] [facility] US FOLLOW UP 08/27/2020 Visit Diagnosis [...] : I10 05/23/2020 Appointment: Jeanie Black WPtel: [address] [place], [place] [phone] FOLLOW UP 05/23/2020 Appointment: Jeanie Black WPtel: [address] [place] [address] NURSE SERVICES 05/02/2020 Visit Diagnosis Plan: Chronic [...] : J44.9 03/20/2020 Appointment: Jeanie Black WPtel: [address] [place], [place] [phone] TELEMEDICINE 03/20/2020 Patient Education: Coumadin- [employer] Coupon [id number] https://www.[employer]gram.[employer]apt[employer]/sampleForus Health/resources/getResource/61/7r854s63-16k2-0sgf-2g Completed 03/20/2020 Patient Education: Coumadin- [employer] Coupon [id number] 13 https://www.[employer]/sample[employer] Health/resources/getResource/61/6dr25p0h-7p4m-2ve9-jf Completed 03/20/2020 Appointment: Jeanie Black WPtel: [address] [place], [place] [id number] US LAB 01/20/2020 Visit Diagnosis Plan: History of recent fall Discussio n: Healing well Doing balance class at [facility] Follow Up: 3 months ICD-9 : V15.88 ICD-10 : Z91.81 12/15/2019 Visit Diagnosis Plan: COPD (chronic obstructive pulmon valeria disease) Discussion: Continue pulmonary rehab ICD-9 : 496 ICD-10 : J44.9 12/15/2019 Visit Diagnosis Plan: Long-term (current ) use of anticoagulants, INR goal 2.0-3.0 Discussion: PT/INR drawn ICD-9 : V58.61 ICD-10 : Z79.01 12/15/2019 Appointment: Jeanie Black WPtel: [address] [place], [place] [phone] US FOLLOW UP 12/15/2019 Patient Education: Coumadin- [employer] Coupon [id number] https://www.[employer]/samplemd/resources/getResource/61/p708fstk-ct53-4urv-6e Completed 12/15/2019 Appointment: Jeanie Balck WPtel: [address] [place], [place] [phone] US LAB 11/10/2019 Visit Diagnosis Plan: Post [...] J44.9 11/03/2019 Appointment: Jeanie Black WPtel: [phone] FOLLOW UP 11/03/2019 Care Plan: CT HEAD/BRAIN W/O DYE LOINC : 59644-1 Pending 11/01/2019 Visit Diagnosis Plan: Essential (primary) [...] ICD-10 : S05.12XA 10/31/2019 Appointment: Jannette Mayen [address] [place] [address] Follow Up 10/31/2019 Patient Education: High Blood Pressure Co mpleted 10/31/2019 Patient Education: losartan- [employer] Coupon [id number] 5 https://www.[employer]gram.com/samplemd/resources/getResource/61/1w291133-4e60-2300-3d Completed 10/31/2019 Appointment: Jeanie Black WPtel: [address] [place] [address] FOLLOW UP 10/26/2019 Visit Diagnosis Plan: Long-term (current ) use of anticoagulants, INR goal 2.0-3.0 Discussion: will update pt/inr ICD-9 : V58.61 ICD-10 : Z79.01 10/11/2019 Visit Diagnosis Plan: Radiculopathy of arm Discussion: flexeril prescribed to take as needed. will start at low dose but instructed patient to call office if not effective and will increase mg dose. PT ordered at [facility] to assist with pain. if no improvement or worsening from PT, will need imaging. ICD-9 : 723.4 ICD-10 : M54.10 10/11/2019 Appointment: Jannette Mayen [address] [place], [place] [id number] ACUTE ILLNESS 10/11/2019 Patient Education: cyclobenzaprine- [employer] Coupon [id number] https://www.copygram.Yapta/samplemd/resources/getResource/61/81z7f7e2-75c7-6o30-29 Completed 10/11/2019 Visit Diagnosis Plan: Bitten by dog, sequela Discussio n: Still seeing counselor Still doing therapy--left 4th finger still not agile enough to play violin and feels like pinched nerve in neck on right--dscussed stretches, massage, accupuncture---patient had hired criminal attorney ICD-9 : 906.1 ICD-10 : W54.0XXS 09/20/2019 Visit Diagnosis Plan: [facility] without abnormal [...] Appointment: Jeanie Black WPtel: [phone] [id number] Annual Well Visit 09/20/2019 Visit Diagnosis Plan: [...] ICD-10 : Z79.01 09/08/2019 Appointment: Jannette Mayen [address] [place] [address] ACUTE ILLNESS 09/08/2019 Appointment: Jeanie Black WPtel: [address] [place] [address] US CANCELED 08/16/2019 Appointment: Jeanie Black WPtel: [address] [place] [address] US LAB 07/29/2019 Appointment: Jeanie Black WPtel: [address] [place] [address] US LAB 07/18/2019 Appointment: Jeanie Black WPtel: [address] [place] [address] US LAB 07/06/2019 Visit Diagnosis Plan: Bitten [...] : D64.9 06/14/2019 Appointment: Jeanie Black WPtel: [facility] [id number] US FOLLOW UP 06/14/2019 Visit Diagnosis Plan: [...] several days ago. will refer to [facility] as well to discuss concerns. ICD-9 [...] : R53.83 05/13/2019 Appointment: Jannette Mayen Christina [address] [place], [place] [address] FOLLOW UP 05/13/2019 Patient Education: carvedilol- [employer] Coupon [id number] https://www.samplemd.com/samplemd/resources/getResource/61/36d0o840-6ldx-2261-0r Completed 05/13/2019 Patient Education: Xanax- [employer] Coupon [id number] https://www.samplemd.com/samplemd/resources/getResource/61/1146j3r6-7i59-6k7f-a3 1e-0n63140645y6.pdf Completed 05/13/2019 Appointment: Jeanie Black WPtel: [address] [place] [address] US LAB 05/06/2019 Visit Diagnosis Plan: Abrasion [...] will send results to dr. portillo at [facility]. ICD-9 : 719.43 ICD-10 : M25.531 05/02/2019 Appointment: Jannette Mayen [address] [place] [address] ACUTE ILLNESS 05/02/2019 Care Plan: X-RAY EXAM OF WRIST right LOINC : [id number] Pending 05/02/2019 Appointment: Jeanie Black WPtel: [address] [place], [place] [phone] US LAB 04/07/2019 Appointment: Jeanie Black WPtel: [address] [place] [address] US BP CHECK 03/22/2019 Visit Diagnosis Plan: [...] : I10 03/08/2019 Appointment: Jeanie Black WPtel: [address] [id number] NEW PATIENT 03/08/2019 Referral: Shona Viera WPtel: [facility] [address] [facility] Referral Appointment Requested Instructions No Instructions Medical Equipment No Medical Equipment data Health Concerns Section Health Concerns data not found Goals Section Goals data not found Interventions Section Interventions data not found Health Status Evaluations/Outcomes Section Health Status Evaluations/Outcomes data not found Advance Directives No Advance Directive data
--- NOTE | 2021-09-19 12:50 | ED General ---
General Stated Complaint: FALL Source of Information: Patient Exam Limitations: No Limitations History of Present Illness Date Seen by Provider: Sep 19, 2021 Time Seen by Provider: 12:47 Initial Comments To ER by EMS from Dr. Black's office with reports of a fall. Patient was there to have a routine PT/INR checked. She takes Coumadin for history of atr ial fibrillation. While waiting to be seen in the waiting room she states that things started to "go black" and she felt like she could not breathe. She was going to tell the spa receptionist that she was not feeling well and was going to go home when she had a syncopal event upon standing up and walking to the desk. She awakened feeling fine this morning. She feels better at this time. No chest pain no shortness of breath no nausea. No fever no chills. She did complain of a posterior headache and some neck pain after the fall. No tingling or numbness in her extremities. Timing/Duration: 1/2 Hour Severity: Moderate Associated Systoms: Headaches, Syncope Allergies and Home Medications Allergies Coded Allergies: Sulfa (Sulfonamide Antibiotics) (Unverified Adverse Reaction, Unknown, 11/02/19) morphine (Verified Adverse Reaction, Unknown, 04/30/19) Hallucinations Patient Home Medication List Home Medication List Reviewed: Yes Aspirin (Aspir 81) 81 Mg Tablet.dr, 81 MG PO DAILY, (Reported) Entered as Reported by: ELIO CASPER on 11/02/19 1340 Carvedilol (Carvedilol) 25 Mg Tablet, 25 MG PO BID, (Reported) Entered as Reported by: ELIO CASPER on 11/02/19 1340 Furosemide (Furosemide) 40 Mg Tablet, 40 MG PO DAILY, (Reported) Entered as Reported by: ELIO CASPER on 11/02/19 1340 Isosorbide Mononitrate (Isosorbide Mononitrate ER) 30 Mg Tab.er.24h, 30 MG PO DAILY, (Reported) Entered as Reported by: ELIO CASPER on 11/02/19 1340 Levothyroxine Sodium (Levothyroxine Sodium) 50 Mcg Tablet, 50 MCG PO DAILY, (Reported) Entered as Reported by: ELIO CASPER on 11/02/19 1340 Losartan Potassium (Losartan Potassium) 50 Mg Tablet, 50 MG PO BID, (Reported) Entered as Reported by: ELIO CASPER on 11/02/19 134 Potassium Chloride (Potassium Chloride) 10 Meq Tablet.er, 10 MEQ PO DAILY, (Reported) Entered as Reported by: ELIO CASPER on 11/02/19 134 Pravastatin Sodium (Pravastatin Sodium) 40 Mg Tablet, 40 MG PO DAILY, (Reported) Entered as Reported by: ELIO CASPER on 11/02/19 134 Warfarin Sodium (Warfarin Sodium) 2 Mg Tablet, 2 MG PO SAT, SUN, (Reported) Entered as Reported by: ELIO CASPER on 11/02/19 134 Warfarin Sodium (Warfarin Sodium) 4 Mg Tablet, 4 MG PO MON-FRI, (Reported) Entered as Reported by: ELIO CASPER on 11/02/191339 Review of Systems Review of Systems Constitutional: see HPI EENTM: see HPI Respiratory: no symptoms reported Cardiovascular: no symptoms reported Genitourinary: no symptoms reported Musculoskeletal: no symptoms reported Skin: no symptoms reported Psychiatric/Neurological: See HPI, Headache Hematologic/Lymphatic: No Symptoms Reported Immunological/Allergic: no symptoms reported Past Vhlygbe-Pqudmz-Xjndkw Hx Immunizations Up To Date Tetanus Booster (TDap): Less than 5yrs PED Vaccines UTD: Yes Past Medical History Surgeries: Yes (KNEE REPLACEMENT X2, RENAL ARTERY STENT) Adenoidectomy, Hysterectomy, Tonsillectomy Respiratory: Yes Asthma, Sleep Apnea Cardiac: Yes (PACEMAKER) Atrial Fibrillation, Hypertension 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 1.0oz. 90.740962mb; 34.00 BMI Method:Actual General Appearance: No Apparent Distress, WD/WN Eyes: Bilateral Eye Normal Inspection, Bilateral Eye PERRL, Bilateral Eye EOMI Neck: Full Range of Motion, Normal Inspection Respiratory: Normal Breath Sounds, No Accessory Muscle Use, No Respiratory Distress Cardiovascular: Regular Rate, Rhythm, Normal Peripheral Pulses Gastrointestinal: Normal Bowel Sounds, Non Tender, Soft Extremity: Normal Capillary Refill, Normal Inspection Neurologic/Psychiatric: Alert, Oriented x3 Skin: Normal Color, Warm/Dry Progress/Results/Core Measures Suspected Sepsis SIRS Temperature: Pulse: Respiratory Rate: Laboratory Tests 09/19/21 12:40: White Blood Count 7.0 Blood Pressure / Mean: Laboratory Tests 09/19/21 12:40: Creatinine 1.58H, INR Comment 2.3H, Platelet Count 197, Total Bilirubin 1.2H Results/Orders Lab Results Laboratory Tests Test 09/19/21 12:40 Range/Units White Blood Count 7.0 4.3-11.0 10^3/uL Red Blood Count 3.76 L 3.80-5.11 10^6/uL Hemoglobin 12.1 11.5-16.0 g/dL Hematocrit 35 35-52 % Mean Corpuscular Volume 93 80-99 fL Mean Corpuscular Hemoglobin 32 25-34 pg Mean Corpuscular Hemoglobin Concent 35 32-36 g/dL Red Cell Distribution Width 15.2 H 10.0-14.5 % Platelet Count 197 130-400 10^3/uL Mean Platelet Volume 10.9 9.0-12.2 fL Immature Granulocyte % (Auto) 0 % Neutrophils (%) (Auto) 72 42-75 % Lymphocytes (%) (Auto) 13 12-44 % Monocytes (%) (Auto) 13 H 0-12 % Eosinophils (%) (Auto) 1 0-10 % Basophils (%) (Auto) 1 0-10 % Neutrophils # (Auto) 5.1 1.8-7.8 10^3/uL Lymphocytes # (Auto) 0.9 L 1.0-4.0 10^3/uL Monocytes # (Auto) 0.9 0.0-1.0 10^3/uL Eosinophils # (Auto) 0.1 0.0-0.3 10^3/uL Basophils # (Auto) 0.0 0.0-0.1 10^3/uL Immature Granulocyte # (Auto) 0.0 0.0-0.1 10^3/uL Prothrombin Time 26.1 H 12.2-14.7 SEC INR Comment 2.3 H 0.8-1.4 Activated Partial Thromboplast Time 33 24-35 SEC Sodium Level 136 135-145 MMOL/L Potassium Level 5.3 H 3.6-5.0 MMOL/L Chloride Level 102 98-107 MMOL/L Carbon Dioxide Level 21 21-32 MMOL/L Anion Gap 13 5-14 MMOL/L Blood Urea Nitrogen 48 H 7-18 MG/DL Creatinine 1.58 H 0.60-1.30 MG/DL Estimat Glomerular Filtration Rate 31 BUN/Creatinine Ratio 30 Glucose Level 112 H 70-105 MG/DL Calcium Level 10.0 8.5-10.1 MG/DL Corrected Calcium 9.8 8.5-10.1 MG/DL Total Bilirubin 1.2 H 0.1-1.0 MG/DL Aspartate Amino Transf (AST/SGOT) 26 5-34 U/L Alanine Aminotransferase (ALT/SGPT) 18 0-55 U/L Alkaline Phosphatase 83 40-136 U/L Total Protein 7.0 6.4-8.2 GM/DL Albumin 4.3 3.2-4.5 GM/DL My Orders 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 Cbc With Automated Diff (09/19/21 12:43) Comprehensive Metabolic Panel (09/19/21 12:43) Protime With Inr (09/19/21 12:43) Partial Thromboplastin Time (09/19/21 12:43) Foot, Left, 3 Views (09/19/21 12:43) Ua Culture If Indicated (09/19/21 12:43) Ed Iv/Invasive Line Start (09/19/21 12:43) Ekg Tracing (09/19/21 12:43) Ct Head/Cervical Spine Wo (09/19/21 12:43) Ns Iv 500 Ml (Sodium Chloride 0.9%) (09/19/21 13:30) Foot, Right, 3 View (09/19/21 13:59) Vital Signs/I&O 09/19/21 12:38 Temp 35.7 Pulse 67 Resp 15 B/P (MAP) 142/75 (97) Pulse Ox 98 O2 Delivery Room Air Capillary Refill : Departure Communication (Admissions) rigid cervical collar removed at 1400. EKG shows atrial fibrillation rate controlled at 67 normal intervals. There is a rare PVC. No ST segment change. Impression Primary Impression: Syncope Additional Impression: Head injury Disposition: HOME, SELF-CARE Condition: Stable Departure-Patient Inst. Referrals: BECKI BLACK DO (PCP/Family) Primary Care Physician NESTOR TEE APRN Sep 19, 2021 12:50
[2021-09-19 12:55] LABS: BASOPHILS % (AUTO) 1 % (0-10); EOSINOPHILS # (AUTO) 0.1 10^3/uL (0.0-0.3); EOSINOPHILS % (AUTO) 1 % (0-10); HEMATOCRIT 35 % (35-52); HEMOGLOBIN 12.1 g/dL (11.5-16.0); LYMPHOCYTES # (AUTO) 0.9 10^3/uL (1.0-4.0); LYMPHOCYTES % (AUTO) 13 % (12-44); MEAN CORPUSCULAR HEMOGLOBIN 32 pg (25-34); MEAN CORPUSCULAR HGB CONC 35 g/dL (32-36); MEAN CORPUSCULAR VOLUME 93 fL (80-99); MEAN PLATELET VOLUME 10.9 fL (9.0-12.2); MONOCYTES # (AUTO) 0.9 10^3/uL (0.0-1.0); MONOCYTES % (AUTO) 13 % (0-12); NEUTROPHILS # (AUTO) 5.1 10^3/uL (1.8-7.8); NEUTROPHILS % (AUTO) 72 % (42-75); PLATELET COUNT 197 10^3/uL (130-400)
[2021-09-19 13:09] LABS: ALBUMIN 4.3 GM/DL (3.2-4.5); POTASSIUM 5.3 MMOL/L (3.6-5.0)
[2021-09-19 13:10] LABS: INR 2.3 (0.8-1.4); PROTHROMBIN TIME PATIENT 26.1 SEC (12.2-14.7)
[2021-09-19 13:13] LABS: BILIRUBIN,TOTAL 1.2 MG/DL (0.1-1.0)
[2021-09-19 13:15] LABS: CREATININE SERUM 1.58 MG/DL (0.60-1.30)
[2021-09-19] MEDS ORDERED: NS IV 500 ML 500 ML IV SCH (13:30)
--- NOTE | 2021-09-19 13:41 | Diagnostic Imaging Report ---
PROCEDURE: CT head and CT cervical spine without contrast. TECHNIQUE: Multiple contiguous axial images were obtained through the brain and cervical spine without the use of intravenous contrast. Sagittal and coronal reformations through the cervical spine were then performed. Auto Exposure Controls were utilized during the CT exam to meet ALARA standards for radiation dose reduction. INDICATION: Head injury, fell backwards with trauma to back of head. COMPARISON: 10/31/2019. FINDINGS: HEAD: No intracranial hyperdense hemorrhage or space-occupying mass. No hydrocephalus or midline shift. Smith-white matter differentiation is well preserved. Stable well-circumscribed chronic lacunar infarct involving the right caudate nucleus. Smith-white matter differentiation is preserved. No skull fracture. Paranasal sinuses and mastoid air cells are clear. Bilateral cataract surgery has been performed. CERVICAL SPINE: No acute fracture or traumatic malalignment. No high-grade spinal stenosis. No retropharyngeal fluid collection or paravertebral hematoma. Lung apices are clear. Visualized portions of the clavicles are intact. Thyroid is normal. No cervical lymphadenopathy. IMPRESSION: 1. No acute intracranial hemorrhage or skull fracture. 2. No acute fracture or traumatic malalignment in the cervical spine. Dictated by: Dictated on workstation # [id number]
--- NOTE | 2021-09-19 14:26 | Diagnostic Imaging Report ---
INDICATION: Right foot pain and swelling. COMPARISON: None. FINDINGS: There is an age-indeterminate avulsion fracture of the proximal fifth metatarsal. No additional fracture deformity is seen. There is mild degenerative joint disease. There is no radiopaque foreign body. IMPRESSION: Age-indeterminate avulsion fracture of the proximal fifth metatarsal. Dictated by: Dictated on workstation # [id number]
[2021-09-19 14:35] LABS: BILIRUBIN,URINE NEGATIVE (NEGATIVE); CLARITY,URINE CLEAR; COLOR,URINE YELLOW; GLUCOSE, URINE (UA) NEGATIVE (NEGATIVE); KETONES,URINE NEGATIVE (NEGATIVE); LEUKOCYTE ESTERASE ,URINE NEGATIVE (NEGATIVE); NITRITE,URINE NEGATIVE (NEGATIVE); PROTEIN,URINE NEGATIVE (NEGATIVE)
[2021-09-19 14:47] LABS: BACTERIA,URINE FEW /HPF; RBC,URINE RARE /HPF; SQUAMOUS EPITHELIAL CELL,UR 0-2 /HPF
[2021-09-19 15:10] VITALS: BP 123/71
== END 2021-09-19 15:10 | disposition home or self-care (01) ==
LOC: EDUNIT# 12:35 → ER 12:36
DX: S09.90XA Unspecified injury of head, initial encounter (principal); R55 Syncope and collapse; J45.909 Unspecified asthma, uncomplicated; G47.30 Sleep apnea, unspecified; I10 Essential (primary) hypertension; I48.91 Unspecified atrial fibrillation; Z86.73 Personal history of transient ischemic attack (TIA), and cerebral infarction without residual deficits; Z79.01 Long term (current) use of anticoagulants; Z79.82 Long term (current) use of aspirin; W19.XXXA Unspecified fall, initial encounter
CPT/HCPCS: 36415; 70450; 72125; 73630; 80053; 81000; 85025; 85610; 85730; 93005

== ENCOUNTER 2021-12-16 10:42 | Outpatient (CLI) | payer MEDICARE ==
[~2021-12-16] VITALS: Ht 165.1 cm; Wt 91.0 kg
[~2021-12-16 10:42] MED LIST changes: +CYCL10TA25 PO; -CYCL10TA9 PO
[2021-12-16 10:47] VITALS: BP 157/82
[2021-12-16] MEDS ORDERED: ACETAMINOPHEN 500 MG TAB (TYLENOL) PO PRN (11:00)
[2021-12-16] MEDS ORDERED: ONDANSETRON 4 MG/2 ML (SDV) Z0FRAN IV PRN (11:00)
[2021-12-16] MEDS ORDERED: CASIRIVIMAB/IMDEVIMAB 1,200 MG in NS (IVPB) 50 ML IV ONE (11:00)
[2021-12-16] MEDS ORDERED: diphenhydrAMINE 50 MG/ML INJ (BENADRYL) IV PRN (11:00)
[2021-12-16] MEDS ORDERED: EPINEPHrine INJECTION 1 MG/ML AMP IM PRN (11:00)
[2021-12-16 12:00] VITALS: BP 155/77
== END 2021-12-16 12:15 | disposition home or self-care (01) ==
LOC: INFUSION 10:42
PROVIDERS: ATTEND Nurse Practitioner Family
DX: U07.1 COVID-19 (principal)

== ENCOUNTER 2022-03-14 19:36 | Outpatient (CLI) | payer MEDICARE | END 2022-03-15 06:05 | disposition home or self-care (01) | LOC: SLEEP 19:36 | PROVIDERS: ATTEND Otolaryngology Otolaryngology/Facial Plastic Surgery | DX: R09.02 Hypoxemia (principal); R06.81 Apnea, not elsewhere classified | CPT/HCPCS: 95811 ==

== ENCOUNTER → 2022-08-25 | Outpatient (CLI) | payer MEDICARE ==
--- NOTE | 2022-08-26 12:45 | Diagnostic Imaging Report ---
Indication: Routine screening. Comparison is made with prior mammogram 08/22/2021 and 09/27/2019. 2-D and 3-D bilateral screening mammography was performed with CAD. CAD is utilized. The current study was also evaluated with a Computer Aided Detection (CAD) system. Scattered fibroglandular densities are identified bilaterally. Extensive vascular calcifications are again noted bilaterally. No dominant mass or malignant-appearing microcalcifications are seen. Pacemaker battery pack left axilla is noted. IMPRESSION: BI-RADS Category 2 No mammographic features suspicious for malignancy are identified. ACR BI-RADS Category 2: Benign findings. Result letter will be mailed to the patient. Note: At least 10% of breast cancer is not imaged by mammography. Dictated by: Dictated on workstation # [id number]
== END ==
LOC: RAD 14:45
PROVIDERS: ATTEND Family Medicine
DX: Z12.31 Encounter for screening mammogram for malignant neoplasm of breast (principal)
CPT/HCPCS: 77063; 77067

== ENCOUNTER → 2022-10-01 | Outpatient (CLI) | payer MEDICARE ==
[~2022-10-01] MED LIST changes: +CATHETER FLUSH 10 ML SYR IV PRN; +HOLD METFORMIN - RECEIVED CONTRAST 20 ML VIAL IV SCH; +IOHEXOL 350 MG/ML 100 ML (OMNIPAQUE 350) VIAL IV ONE; +NS 100 ML (IVPB) BAG IV ONE
[2022-10-01 14:26] LABS: CREATININE SERUM 1.17 MG/DL (0.60-1.30)
--- NOTE | 2022-10-01 19:34 | Diagnostic Imaging Report ---
PROCEDURE: CT angiography of the head and CT angiography of the neck with and without contrast. TECHNIQUE: Contiguous noncontrast images were obtained from the skull base through the vertex. After intravenous contrast administration, helical CT angiography of the neck was performed. Source data was reformatted into 3D MIP projections. Delayed post contrast acquisition was also obtained. Auto Exposure Controls were utilized during the CT exam to meet ALARA standards for radiation dose reduction. INDICATION: Carotid occlusive disease. COMPARISONS: CT head and C-spine 11/19/2021. FINDINGS: There is calcific atherosclerosis at the arch aorta. There is some calcific atherosclerosis at the origin of the great vessels but no evidence of hemodynamically significant stenosis. Both common carotid arteries are widely patent. There is calcific atherosclerosis at the bifurcations. The cervical, high cervical, petrous, cavernous and supraclinoid segments show contrast opacification. There is bilateral carotid siphon disease with calcific atherosclerosis with mild to moderate narrowing. A1 and A2 segments of both EVE, M1, M2 and M3 trifurcation vessels of both MCA are unremarkable. The left vertebral artery is dominant. Both vertebral arteries are patent to the skull base. The PICA, basilar artery, AICA, SCA and gravel machine operator are patent. There is distal small vessel disease. Lung apices are clear. Superior mediastinum is unremarkable. The parapharyngeal and paraspinous soft tissues are also unremarkable. There is moderate cervical spondylosis with multilevel hypertrophic facet changes. IMPRESSION: 1. There is some bilateral carotid bifurcation disease with calcific atherosclerosis but no evidence of hemodynamically significant stenosis. 2. There is bilateral carotid siphon disease with mild to moderate narrowing. 3. Leftward dominance of the left vertebral artery a normal variation. 4. There is no large vessel or medium vessel occlusion seen in the intracranial circulation. There is however diffuse atherosclerosis with small vessel disease. 5. There is moderate cervical spondylosis. Additional nonemergent findings as described above. Dictated by: Dictated on workstation # [id number]
== END ==
LOC: RAD 14:45
PROVIDERS: ATTEND Internal Medicine Cardiovascular Disease
DX: I65.23 Occlusion and stenosis of bilateral carotid arteries (principal); M47.812 Spondylosis without myelopathy or radiculopathy, cervical region
CPT/HCPCS: 36415; 70496; 70498; 82565; 84520

== ENCOUNTER → 2022-10-14 | Outpatient (CLI) | payer MEDICARE ==
[~2022-10-14] MED LIST changes: -CATHETER FLUSH 10 ML SYR IV PRN; -HOLD METFORMIN - RECEIVED CONTRAST 20 ML VIAL IV SCH; -IOHEXOL 350 MG/ML 100 ML (OMNIPAQUE 350) VIAL IV ONE; -NS 100 ML (IVPB) BAG IV ONE
--- NOTE | 2022-10-14 13:40 | Diagnostic Imaging Report ---
INDICATION: Postmenopausal screening COMPARISON: 09/27/2019 FINDINGS: AP Spine L1-L4: [BMD (g/cm2): 0.817] [T-Score: -3.2] [Z-Score: -2.1] [BMD Previous: 0.710] [BMD % Change: 15.1] LT Hip Neck: [BMD (g/cm2): 0.717] [T-Score: -2.3] [Z-Score: -0.4] LT Hip Total: [BMD (g/cm2):0.815] [T-Score:-1.5] [Z-Score: 0.3] [BMD Previous: 0.777] [BMD % Change: 4.9] RT Hip Neck: [BMD (g/cm2):0.613] [T-Score:-3.1] [Z-Score:-1.1] RT Hip Total: [BMD (g/cm2):0.658] [T-score:-2.8] [Z-Score:-1.0] [BMD Previous:0.670] [BMD % Change:-1.8] *Indicates significant change from prior examination based on 95% confidence level. World Health Organization criteria for BMD interpretation classify patients as Normal (T-score at or above -1.0), Osteopenic (T-score between -1.0 and -2.5) or Osteoporotic (T-score at or below -2.5). LIMITATIONS AND MODIFICATION: None. FRACTURE RISK (FRAX SCORE): The ten year probability of (%): Major Osteoporotic Fracture: [27.5] Hip Fracture: [10.2] IMPRESSION: 1. Osteoporosis. 2. There has been a statistically significant increase in BMD since prior exam, detailed above. 3. See below National Osteoporosis Foundation guidelines on when to potentially initiate pharmacologic therapy. Based on the National Osteoporosis Foundation Guidelines, pharmacologic treatment should be initiated in any of the following, unless clinical conditions suggest otherwise: * Any patient with prior fragility fracture of the hip or vertebrae. A spine fracture indicates 5X risk for subsequent spine fracture and 2X risk for subsequent hip fracture. * Osteoporosis (T-score <-2.5). * Postmenopausal women and men age 50 and older with low bone mass/osteopenia (T-score between -1.0 and -2.5) by DXA and 10-year major osteoporotic fracture greater than 20% or a 10-year probability of hip fracture greater than 3%. These fracture risks are supplied above in the FRAX score, if applicable. * Clinician judgement and/or patient preferences may indicate treatment for people with 10-year fracture probabilities above or below these levels. Dictated by: Dictated on workstation # [id number]
== END ==
LOC: RAD 10:10
PROVIDERS: ATTEND Family Medicine
DX: M81.0 Age-related osteoporosis without current pathological fracture (principal)
CPT/HCPCS: 77080

== ENCOUNTER → 2022-12-16 | Outpatient (CLI) | payer MEDICARE | LOC: CARD 08:33 | PROVIDERS: ATTEND Physician Assistant | DX: I08.3 Combined rheumatic disorders of mitral, aortic and tricuspid valves (principal); I11.9 Hypertensive heart disease without heart failure | CPT/HCPCS: 93306 ==

== ENCOUNTER → 2022-12-30 | Outpatient (CLI) | payer MEDICARE ==
--- NOTE | 2022-12-30 18:11 | Diagnostic Imaging Report ---
INDICATION: Lower back pain. COMPARISON: None available. TECHNIQUE: Three radiographs of the lumbar spine dated 12/30/2022. FINDINGS: Mild apex right curvature of the thoracolumbar spine. No significant anterolisthesis or retrolisthesis. Besides mild scattered endplate degenerative changes, vertebral body heights are otherwise well maintained. Moderate disc space height loss at L5/S1 with additional mild scattered disc space height loss. No severe disc space height loss. Scattered facet joint degenerative changes, greatest on the right within the lower lumbar spine. No acute fracture or dislocation. Advanced background vascular calcifications are present with vascular stent also in place. Pacer lead is partially visualized. IMPRESSION: Mild apex right curvature of the thoracolumbar spine with [id number] scattered degenerative changes without acute osseous abnormality. Advanced background vascular calcifications with vascular stent in place overlying the midline abdomen. Dictated by: Dictated on workstation # [id number]
== END ==
LOC: RAD 13:42
PROVIDERS: ATTEND Family Medicine
DX: M47.816 Spondylosis without myelopathy or radiculopathy, lumbar region (principal); M53.3 Sacrococcygeal disorders, not elsewhere classified
CPT/HCPCS: 72100

== ENCOUNTER 2023-01-21 12:58 | Outpatient (CLI) | payer MEDICARE ==
[~2023-01-21] VITALS: Ht 167.7 cm; Wt 91.0 kg
[2023-01-21] MEDS ORDERED: DENOSUMAB 60 MG/1 ML (PROLIA) SQ SCH (13:30)
[2023-01-21 13:38] VITALS: BP 130/59
== END 2023-01-21 13:38 | disposition home or self-care (01) ==
LOC: SDC 12:58
PROVIDERS: ATTEND Nurse Practitioner Family
DX: M81.0 Age-related osteoporosis without current pathological fracture (principal); I08.3 Combined rheumatic disorders of mitral, aortic and tricuspid valves; I11.9 Hypertensive heart disease without heart failure
CPT/HCPCS: 96372

== ENCOUNTER → 2023-04-24 | Outpatient (CLI) | payer MEDICARE ==
--- NOTE | 2023-04-24 15:13 | Diagnostic Imaging Report ---
PROCEDURE: US Renal Bilateral. TECHNIQUE: Multiple Real-time grayscale images were obtained over the kidneys in various projections bilaterally. INDICATION: Renal insufficiency. FINDINGS: The right kidney measures 10.0 x 3.8 x 4.4 cm and the left kidney measures 10.0 x 4.2 x 5.1 cm. The cortical thickness and echogenicity appear normal. No calculi are seen. There is no hydronephrosis. Bilateral ureteral jets were visualized. IMPRESSION: Unremarkable renal ultrasound. Dictated by: Dictated on workstation # [id number]
== END ==
LOC: RAD 12:45
PROVIDERS: ATTEND Family Medicine
DX: N28.9 Disorder of kidney and ureter, unspecified (principal)
CPT/HCPCS: 76770

== ENCOUNTER 2023-07-29 12:48 | Outpatient (CLI) | payer MEDICARE ==
[2023-07-29] MEDS ORDERED: DENOSUMAB 60 MG/1 ML (PROLIA) SQ SCH (13:01)
[2023-07-29 13:15] VITALS: BP 95/48
[2023-07-29] MEDS ORDERED: DENOSUMAB 60 MG/1 ML (PROLIA) SQ NR (13:15)
== END 2023-07-29 13:25 | disposition home or self-care (01) ==
LOC: SDC 12:48
PROVIDERS: ATTEND Family Medicine
DX: M81.0 Age-related osteoporosis without current pathological fracture (principal)
CPT/HCPCS: 96372

== ENCOUNTER → 2023-08-12 | Outpatient (CLI) | payer MEDICARE ==
--- NOTE | 2023-08-12 14:19 | Diagnostic Imaging Report ---
HISTORY: Bilateral hip pain. TECHNIQUE: Frontal view of the pelvis. Frontal and lateral views of the bilateral hips. COMPARISON: None. FINDINGS: No acute fracture is seen in the pelvis or hips. There are mild degenerative changes in the hips with mild joint space loss. Bilateral sacroiliac joints are patent. Bone density is diffusely low. There is a bony defect in the right iliac wing, appears chronic. This measures about 4.9 cm in diameter. No comparison is available. IMPRESSION: 1. Mild degenerative change in the bilateral hips with no acute osseous abnormality seen. 2. Large bony defect in the right iliac wing appears chronic. This could be from old trauma or surgery. If there is not a correlating event in the patient's history, consider MRI to further evaluate. Dictated by: Dictated on workstation # [id number]
== END ==
LOC: ORTHO 10:36
PROVIDERS: ATTEND Orthopaedic Surgery
DX: M70.62 Trochanteric bursitis, left hip (principal); M47.816 Spondylosis without myelopathy or radiculopathy, lumbar region; I10 Essential (primary) hypertension; E78.5 Hyperlipidemia, unspecified; E03.9 Hypothyroidism, unspecified; E66.9 Obesity, unspecified
CPT/HCPCS: 73523; G0463; 99203

== ENCOUNTER → 2023-08-28 | Outpatient (CLI) | payer MEDICARE | LOC: CANPRECLI → CARD 08:53 | PROVIDERS: ATTEND Internal Medicine Cardiovascular Disease | DX: I08.3 Combined rheumatic disorders of mitral, aortic and tricuspid valves (principal); I11.9 Hypertensive heart disease without heart failure | CPT/HCPCS: 93306 ==

== ENCOUNTER 2023-09-29 12:49 | Outpatient (RCR) | payer MEDICARE ==
[~2023-09-29] VITALS: Ht 165.1 cm; Wt 95.5 kg
[2023-09-29] MEDS ORDERED: FERRIC CARBOXYMALTOSE INJ 750 MG in NS (IVPB) 250 ML 250 ML IV SCH (13:15)
[2023-09-29] MEDS ORDERED: ASPI-1238 PO ×2 (14:12)
[2023-09-29] MEDS ORDERED: POTA-177 PO ×2 (14:12)
[2023-09-29] MEDS ORDERED: SPIR25TA5 PO ×2 (14:35)
[2023-09-29] MEDS ORDERED: PANT40TA2 PO ×2 (14:35)
[2023-09-29] MEDS ORDERED: ATOR40TA70 PO ×2 (14:35)
[2023-09-29 14:45] VITALS: BP 96/50
[2023-09-29] MEDS ORDERED: NFCHLORHGL MM (14:52)
[2023-09-30] MEDS ORDERED: DENO60DI SQ ×2 (18:42)
[2023-10-05] MEDS ORDERED: CYAN-41 PO ×2 (10:26)
[2023-10-05] MEDS ORDERED: PANT40TA52 PO ×2 (10:26)
== END 2023-09-29 14:00 | disposition home or self-care (01) ==
LOC: SDC 12:49
PROVIDERS: ATTEND Family Medicine
DX: Z01.89 Encounter for other specified special examinations (principal)
CPT/HCPCS: 96365

== ENCOUNTER 2023-09-30 08:52 | Inpatient (IN) | payer MEDICARE ==
[~2023-09-30] VITALS: Ht 165.1 cm; Wt 101.4 kg
[2023-09-30] VITALS (15 sets, daily range): BP systolic 86–132; BP diastolic 47–92
[~2023-09-30 08:52] MED LIST changes: +ASPI-1238 PO; +ATOR40TA70 PO; +NFCHLORHGL MM; +PANT40TA2 PO; +POTA-177 PO; +SPIR25TA5 PO
[2023-09-30 09:08] LABS: BASOPHILS % (AUTO) 0 % (0-10); EOSINOPHILS # (AUTO) 0.1 10^3/uL (0.0-0.3); EOSINOPHILS % (AUTO) 1 % (0-10); HEMATOCRIT 23 % (35-52); HEMOGLOBIN 7.5 g/dL (11.5-16.0); LYMPHOCYTES # (AUTO) 0.8 10^3/uL (1.0-4.0); LYMPHOCYTES % (AUTO) 8 % (12-44); MEAN CORPUSCULAR HEMOGLOBIN 32 pg (25-34); MEAN CORPUSCULAR HGB CONC 33 g/dL (32-36); MEAN CORPUSCULAR VOLUME 99 fL (80-99); MEAN PLATELET VOLUME 11.4 fL (9.0-12.2); MONOCYTES # (AUTO) 0.8 10^3/uL (0.0-1.0); MONOCYTES % (AUTO) 8 % (0-12); NEUTROPHILS # (AUTO) 8.3 10^3/uL (1.8-7.8); NEUTROPHILS % (AUTO) 82 % (42-75); PLATELET COUNT 204 10^3/uL (130-400); WHITE BLOOD COUNT 10.1 10^3/uL (4.3-11.0)
--- NOTE | 2023-09-30 09:11 | ED General ---
General Chief Complaint: Dizziness/Syncope Stated Complaint: DIZZINESS | WEAKNESS Nursing Triage Note: PT ARRIVED PER EMS PT STATES BECAME VERY WEAK AND DIZZINESS WHEN STANDING, CALLED FOR A LIFT ASSIST AND DECIDED TO COME TO ED TO GET CHECKED. PT STATES HAS IRON INFUSION YESTERDAY Source of Information: Patient, EMS, Old Records History of Present Illness Date Seen by Provider: Sep 30, 2023 Time Seen by Provider: 08:53 Initial Comments 88-year-old female with past medical history of persistent A-fib on warfarin, HFpEF (TTE 12/16/22 with EF 65%, grade 2 diastolic dysfunction, moderate , severe TR) coming in via EMS from home due to general weakness and lightheadedness. She stood up to get out of bed, felt lightheaded, "grayed out", and she states slowly went down to the floor on her right side of her bottom. Did not hit her head or pass out. Remembers all events. Called EMS for lift assist and they brought her out here. She said she has been feeling generally weak and short of breath for well over a year. She typically is able to take about 10 steps before she needs to pause and take some breaths. She had an iron infusion yesterday which is the only new thing she has been taking. Otherwise denying any other acute complaints including no real pain anywhere at this time. Allergies and Home Medications Allergies Coded Allergies: lisinopril (Verified Allergy, Unknown, 09/30/23) Sulfa (Sulfonamide Antibiotics) (Unverified Adverse Reaction, Unknown, 11/02/19) morphine (Verified Adverse Reaction, Unknown, 04/30/19) Hallucinations Patient Home Medication List Home Medication List Reviewed: Yes Aspirin (Aspirin EC) 81 Mg Tablet.dr, 81 MG PO DAILY, (Reported) Entered as Reported by: DC REEVES on 09/29/23 1412 Atorvastatin Calcium (Atorvastatin Calcium) 40 Mg Tablet, 40 MG PO HS, (Reported) Entered as Reported by: DC REEVES on 09/29/23 1435 Carvedilol (Carvedilol) 25 Mg Tablet, 25 MG PO BID, (Reported) Entered as Reported by: ELIO CASPER on 11/02/19 1340 Chlorhexidine Gluconate (Chlorhexidine Gluconate) 0.12 % Mouthwash, 15 ML MM BID, (Reported) Entered as Reported by: DC REEVES on 09/29/23 1452 Furosemide (Furosemide) 40 Mg Tablet, 40 MG PO DAILY, (Reported) Entered as Reported by: ELIO CASPER on 11/02/19 1340 Isosorbide Mononitrate (Isosorbide Mononitrate ER) 30 Mg Tab.er.24h, 30 MG PO DAILY, (Reported) Entered as Reported by: ELIO CASPER on 11/02/19 134 Levothyroxine Sodium (Levothyroxine Sodium) 50 Mcg Tablet, 50 MCG PO DAILY, (Reported) Entered as Reported by: ELIO CASPER on 11/02/19 134 Losartan Potassium (Losartan Potassium) 50 Mg Tablet, 50 MG PO BID, (Reported) Entered as Reported by: ELIO CASPER on 11/02/19 134 Pantoprazole Sodium (Protonix) 40 Mg Tablet.dr, 40 MG PO DAILY, (Reported) Entered as Reported by: DC REEVES on 09/29/23 1435 Potassium Chloride (Potassium Chloride) 10 Meq Tab.er.prt, 10 MEQ PO DAILY, (Reported) Entered as Reported by: DC REEVES on 09/29/23 1412 Spironolactone (Spironolactone) 25 Mg Tablet, 25 MG PO DAILY, (Reported) Entered as Reported by: DC REEVES on 09/29/23 1435 Warfarin Sodium (Warfarin Sodium) 2 Mg Tablet, 2 MG PO, (Reported) Entered as Reported by: ELIO CASPER on 11/02/19 1340 Warfarin Sodium (Warfarin Sodium) 4 Mg Tablet, 4 MG PO, (Reported) Entered as Reported by: ELIO CASPER on 11/02/19 134 Discontinued Medications Pravastatin Sodium (Pravastatin Sodium) 40 Mg Tablet, 40 MG PO DAILY, (Reported) Discontinued Reason: No Longer Taking Entered as Reported by: ELIO CASPER on 11/02/19 134 Review of Systems Review of Systems Constitutional: No fever EENTM: no symptoms reported Respiratory: see HPI Cardiovascular: no symptoms reported Gastrointestinal: no symptoms reported Genitourinary: no symptoms reported Musculoskeletal: see HPI Skin: no symptoms reported Psychiatric/Neurological: No Symptoms Reported Hematologic/Lymphatic: No Symptoms Reported Past Abflusm-Kblbxo-Brdqqv Hx Patient Social History Tobacco Use?: No Substance use?: No Alcohol Use?: No Pt feels they are or have been: No Immunizations Up To Date Tetanus Booster (TDap): Less than 5yrs PED Vaccines UTD: Yes First/Initial COVID19 Vaccinat: DEC 2020 Second COVID19 Vaccination Samir: DEC 2020 Third COVID19 Vaccination Date: DEC 2020 Past Medical History Surgery/Hospitalization HX: KNEE REPLACEMENT , RENAL ARTERY STENT, PACEMAKER, Surgeries: Yes (KNEE REPLACEMENT X2, RENAL ARTERY STENT) Adenoidectomy, Hysterectomy, Tonsillectomy Respiratory: Yes Asthma, Sleep Apnea Cardiac: Yes (PACEMAKER) Atrial Fibrillation, Hypertension 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 1.0oz. 90.825878va; 33.00 BMI Method:Actual General Appearance: No Apparent Distress, WD/WN Eyes: Bilateral Eye Normal Inspection HEENT: PERRL/EOMI, Normal ENT Inspection, Pharynx Normal Neck: Full Range of Motion, Normal Inspection, Non Tender, Supple Respiratory: Chest Non Tender, Lungs Clear, Normal Breath Sounds, No Accessory Muscle Use, No Respiratory Distress Cardiovascular: Normal Peripheral Pulses, Irregularly Irregular Gastrointestinal: Normal Bowel Sounds, Non Tender, Soft; No Distended, No Guarding Back: Normal Inspection, No CVA Tenderness, No Vertebral Tenderness Extremity: Normal Capillary Refill, Normal Inspection, Normal Range of Motion, Non Tender, No Calf Tenderness Neurologic/Psychiatric: Alert, Oriented x3, No Motor/Sensory Deficits, Normal 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, 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 Skin: Normal Color, Warm/Dry Progress/Results/Core Measures Suspected Sepsis SIRS Temperature: Pulse: 79 Respiratory Rate: 18 Laboratory Tests 09/30/23 09:00: White Blood Count 10.1 Blood Pressure 106 /61 Mean: 76 Laboratory Tests 09/30/23 09:00: Creatinine 1.40H, INR Comment 5.0H, Platelet Count 204, Total Bilirubin 1.0 Results/Orders Lab Results Laboratory Tests Test 09/30/23 09:00 Range/Units White Blood Count 10.1 4.3-11.0 10^3/uL Red Blood Count 2.32 L 3.80-5.11 10^6/uL Hemoglobin 7.5 L 11.5-16.0 g/dL Hematocrit 23 L 35-52 % Mean Corpuscular Volume 99 80-99 fL Mean Corpuscular Hemoglobin 32 25-34 pg Mean Corpuscular Hemoglobin Concent 33 32-36 g/dL Red Cell Distribution Width 16.6 H 10.0-14.5 % Platelet Count 204 130-400 10^3/uL Mean Platelet Volume 11.4 9.0-12.2 fL Immature Granulocyte % (Auto) 1 % Neutrophils (%) (Auto) 82 H 42-75 % Lymphocytes (%) (Auto) 8 L 12-44 % Monocytes (%) (Auto) 8 0-12 % Eosinophils (%) (Auto) 1 0-10 % Basophils (%) (Auto) 0 0-10 % Neutrophils # (Auto) 8.3 H 1.8-7.8 10^3/uL Lymphocytes # (Auto) 0.8 L 1.0-4.0 10^3/uL Monocytes # (Auto) 0.8 0.0-1.0 10^3/uL Eosinophils # (Auto) 0.1 0.0-0.3 10^3/uL Basophils # (Auto) 0.0 0.0-0.1 10^3/uL Immature Granulocyte # (Auto) 0.1 0.0-0.1 10^3/uL Prothrombin Time 48.6 *H 12.2-14.7 SEC INR Comment 5.0 H 0.8-1.4 Activated Partial Thromboplast Time 36 H 24-35 SEC Sodium Level 134 L 135-145 MMOL/L Potassium Level 4.4 3.6-5.0 MMOL/L Chloride Level 104 98-107 MMOL/L Carbon Dioxide Level 19 L 21-32 MMOL/L Anion Gap 11 5-14 MMOL/L Blood Urea Nitrogen 113 *H 7-18 MG/DL Creatinine 1.40 H 0.60-1.30 MG/DL Estimat Glomerular Filtration Rate 36 BUN/Creatinine Ratio 81 Glucose Level 161 H 70-105 MG/DL Calcium Level 9.9 8.5-10.1 MG/DL Corrected Calcium 10.1 8.5-10.1 MG/DL Magnesium Level 2.4 1.6-2.4 MG/DL Total Bilirubin 1.0 0.1-1.0 MG/DL Aspartate Amino Transf (AST/SGOT) 19 5-34 U/L Alanine Aminotransferase (ALT/SGPT) 18 0-55 U/L Alkaline Phosphatase 67 40-136 U/L Troponin I < 0.028 <0.028 NG/ML B-Type Natriuretic Peptide 94.4 <100.0 PG/ML Total Protein 5.9 L 6.4-8.2 GM/DL Albumin 3.8 3.2-4.5 GM/DL Thyroid Stimulating Hormone (TSH) 3.88 0.35-4.94 UIU/ML My Orders Orders - CAPO NELSON MD Ct Head/Cervical Spine Wo (09/30/23 09:02) Ed Iv/Invasive Line Start (09/30/23 09:02) Chest 1 View, Ap/Pa Only (09/30/23 09:02) Ekg Tracing (09/30/23 09:) Monitor-Rhythm Ecg Trace Only (09/30/23:02) Bnp Isabel (09/30/23 09:02) Cbc And Automated Diff (09/30/23 09:02) Comprehensive Metabolic Panel (09/30/23 09:02) Magnesium (09/30/23 09:02) Protime With Inr (09/30/23:) Partial Thromboplastin Time (09/30/23:02) Thyroid Stimulating Hormone (09/30/23 09:02) Troponin I Crawford (09/30/23 09:02) Vital Signs: Special (Order) (09/30/23 10:55) Consent-Obtain Consent For (09/30/23 10:55) Monitor S/S Transfusion Reacti (09/30/23 10:55) Ns Iv 500 Ml (Ns Iv 500 Ml) (09/30/23 11:00) Type And Screen (09/30/23 10:55) Fresh Frozen Plasma (09/30/23 10:55) Red Cells Leukocytes Reduced (09/30/23 10:55) Ns Iv 500 Ml (Ns Iv 500 Ml) (09/30/23 11:00) Ed Admission (Communication) (09/30/23 11:01) Ekg Tracing (09/30/23 11:30) Vital Signs/I&O 09/30/23 09/30/23 09/30/23 08:55 11:34 11:49 Temp 35.8 36.0 Pulse 79 82 83 Resp 18 18 18 B/P (MAP) 106/61 (76) 102/56 121/76 Pulse Ox 99 97 98 O2 Delivery Room Air Capillary Refill : Less Than 3 Seconds Blood Pressure Mean: 76 Progress Note : Progress Note 88-year-old female with above history coming in due to general weakness. She was mildly hypotensive for EMS, but her map is appropriate here in the ER. An IV was placed and basic labs were obtained and were significant for new anemia with hemoglobin of 7.5, INR supratherapeutic at 5, creatinine 1.8 which is near her baseline, BUN 113 which is much higher than normal and would be concerning for an upper GI bleed especially given her supratherapeutic INR. The patient does corroborate that she has had very dark stools the past [address] Mcgill, she will admit the patient to the intensive care unit for an upper G I bleed. We will reverse her INR with 2 units of FFP given the concerns for life-threatening bleed. She will also be given 1 unit of packed red blood cells for now. I then contacted Dr. James for consultation as well as Dr. DEL ANGEL with his surgeon for consultation. I then contacted the ICU physician for signout. ECG Initial ECG Impression Date: Sep 30, 2023 Initial ECG Impression Time: 09:05 Initial ECG Rate: 85 Initial ECG Rhythm: A Fib/Flutter Comment Narrow QRS, normal axis, no significant ST changes, T wave inversions in the inferior leads, appears similar to prior EKG EKG : Rate: 952 Rhythm: A Fib/Flutter Comment Rate 99, narrow QRS, normal axis, intermittently in and out of A-fib Diagnostic Imaging Diagonstic Imaging: Xray (chest), CT (head and c spine) Comments [facility] [place], [place] NAME: GLENYS GOLDBERG [facility] REC#: [id number] PT STATUS: REG ER : 1935 PHYSICIAN: CAPO NELSON MD ADMIT DATE: 09/30/23/ER Draft Date of Exam:09/30/23 CT HEAD/CERVICAL SPINE WO CLINICAL INDICATION: Patient became very weak and dizzy when standing. Patient had iron infusion yesterday. EXAM: Head CT without IV contrast with sagittal and coronal reformations. Axial CT scan of the cervical spine with sagittal and coronal reformations. Auto Exposure Controls were utilized during the CT exam to meet ALARA standards for radiation dose reduction. COMPARISON: CT angiogram of the head/neck dated 10/01/2022. FINDINGS: HEAD CT: There is no evidence of acute cerebral infarct, intracranial hemorrhage, or gross mass effect. 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 The brain parenchymal volume appears appropriate for patient's age. There is normal jernigan-white matter distinction. There is no significant midline shift or herniation. There is no evidence of hydrocephalus. The basal cisterns are unremarkable. The skull, extracranial soft tissue, and orbits are unremarkable. The paranasal sinuses are unremarkable. Temporal bones show no significant abnormality. CERVICAL SPINE: There is no acute cervical spine fracture or dislocation. There are small degenerative spurs involving the cervical spine. There is no significant bony central canal or neuroforaminal narrowing. IMPRESSION: 1: There is no evidence of an acute intracranial process. There is no skull fracture. 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 3: There is mild cervical spine degenerative disease with no acute fracture or dislocation. Dictated on workstation # [id number] Dict: 09/30/2332 Trans: 09/30/23 0944 [id number] Interpreted by: LORI BENITES MD Electronically signed by: NAME: GLENYS G[facility]DBERG [facility] REC#: [id number] PT STATUS: REG ER : 1935 PHYSICIAN: CAPO NELSON MD ADMIT DATE: 09/30/23/ER Draft Date of Exam:09/30/23 CHEST 1 VIEW, AP/PA ONLY CLINICAL INDICATION: Patient is status post fall and shortness of breath. EXAM: Portable chest x-ray upright view. COMPARISON: None. FINDINGS: Lungs/pleura: Lungs are clear. There is no pneumothorax. There is no pleural effusion. Mediastinum: Unremarkable. Pulmonary vasculature: Unremarkable. Heart: Heart size within normal limits. Cardiac pacemaker is seen overlying left chest with single lead projecting over the heart which appears intact.. Bones/extrathoracic soft tissue: Unremarkable. IMPRESSION: There is no radiographic evidence of acute cardiopulmonary process. Dictated on workstation # [id number] Dict: 09/30/23 0954 Trans: 09/30/23 1002 [id number] Interpreted by: LORI BENITES MD Electronically signed by: Critical Care Note Critical Care Start Time: 08:54 Stop Time: 10:10 Total Time (minutes) 46 Progress Patient was at significant risk for hemodynamic instability and required frequent reassessment. She required emergent blood products Departure Impression Primary Impression: GI bleed Qualified Codes: K92.1 - Melena Additional Impression: Supratherapeutic INR Disposition: ADMITTED INPATIENT Condition: Critical Admissions Decision to Admit Reason: Admit from ER (General) Decision to Admit/Date: Sep 30, 2023 Time/Decision to Admit Time: 11:15 Departure-Patient Inst. Referrals: BECKI BOND DO (PCP/Family) Primary Care Physician CAPO NELSON MD Sep 30, 2023 09:11
[2023-09-30 09:30] LABS: PROTHROMBIN TIME PATIENT 48.6 SEC (12.2-14.7)
--- NOTE | 2023-09-30 09:46 | Diagnostic Imaging Report ---
CLINICAL INDICATION: Patient became very weak and dizzy when standing. Patient had iron infusion yesterday. EXAM: Head CT without IV contrast with sagittal and coronal reformations. Axial CT scan of the cervical spine with sagittal and coronal reformations. Auto Exposure Controls were utilized during the CT exam to meet ALARA standards for radiation dose reduction. COMPARISON: CT angiogram of the head/neck dated 10/01/2022. FINDINGS: HEAD CT: There is no evidence of acute cerebral infarct, intracranial hemorrhage, or gross mass effect. 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 The brain parenchymal volume appears appropriate for patient's age. There is normal jernigan-white matter distinction. There is no significant midline shift or herniation. There is no evidence of hydrocephalus. The basal cisterns are unremarkable. The skull, extracranial soft tissue, and orbits are unremarkable. The paranasal sinuses are unremarkable. Temporal bones show no significant abnormality. CERVICAL SPINE: There is no acute cervical spine fracture or dislocation. There are small degenerative spurs involving the cervical spine. There is no significant bony central canal or neuroforaminal narrowing. IMPRESSION: 1: There is no evidence of an acute intracranial process. There is no skull fracture. 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 3: There is mild cervical spine degenerative disease with no acute fracture or dislocation. Dictated by: Dictated on workstation # [id number]
--- NOTE | 2023-09-30 10:02 | Diagnostic Imaging Report ---
CLINICAL INDICATION: Patient is status post fall and shortness of breath. EXAM: Portable chest x-ray upright view. COMPARISON: None. FINDINGS: Lungs/pleura: Lungs are clear. There is no pneumothorax. There is no pleural effusion. Mediastinum: Unremarkable. Pulmonary vasculature: Unremarkable. Heart: Heart size within normal limits. Cardiac pacemaker is seen overlying left chest with single lead projecting over the heart which appears intact.. Bones/extrathoracic soft tissue: Unremarkable. IMPRESSION: There is no radiographic evidence of acute cardiopulmonary process. Dictated by: Dictated on workstation # [id number]
[2023-09-30 10:21] LABS: ALBUMIN 3.8 GM/DL (3.2-4.5); CHLORIDE 104 MMOL/L (98-107); POTASSIUM 4.4 MMOL/L (3.6-5.0); SODIUM 134 MMOL/L (135-145)
[2023-09-30 10:22] LABS: CALCIUM 9.9 MG/DL (8.5-10.1)
[2023-09-30 10:24] LABS: GLUCOSE 161 MG/DL (70-105); TOTAL PROTEIN 5.9 GM/DL (6.4-8.2)
[2023-09-30 10:25] LABS: CARBON DIOXIDE 19 MMOL/L (21-32)
[2023-09-30 10:27] LABS: ALKALINE PHOSPHATASE 67 U/L (40-136); GFR ESTIMATED 36
[2023-09-30 10:30] LABS: ALANINE AMINOTRANSFERASE 18 U/L (0-55); MAGNESIUM 2.4 MG/DL (1.6-2.4)
[2023-09-30 10:42] LABS: BUN/CREATININE RATIO 81
[2023-09-30] MEDS ORDERED: NS IV 500 ML 500 ML IV STA (10:48)
[2023-09-30] MEDS ORDERED: NS IV 500 ML 500 ML IV SCH ×4 (11:00→12:30)
--- NOTE | 2023-09-30 11:39 | Consultation-Cardiology ---
HPI-Cardiology Cardiology Consultation Date of Consultation 09/30/23 Date of Admission Time Seen by Provider: 12:00 Indication: afib HPI Patient is an 88 y/o female with history of chronic afib, has been maintained on Coumadin, valvular heart disease with mitral and tricuspid regurgitation, aortic stenosis, HTN, chronic dyspnea. Presented to the ER with complaints of increased weakness and dyspnea, near syncope, over the past month, increasing over the past 2 days. Denies any chest pain or increased peripheral edema. Reports she has noted dark stools over the past few days. Home Medications & Allergies Allergies: Coded Allergies: lisinopril (Verified Allergy, Unknown, 09/30/23) Sulfa (Sulfonamide Antibiotics) (Unverified Adverse Reaction, Unknown, 11/02/19) morphine (Verified Adverse Reaction, Unknown, 04/30/19) Hallucinations Home Medication List Reviewed: Yes TOT-Cnidif-Hraboc Hx Patient Social History Employed/Student: retired Smoking Status: Never a Smoker Alcohol Use?: No Immunizations Up To Date Tetanus Booster (TDap): Less than 5yrs Date of Pneumonia Vaccine: Apr 23, 2019 Date of Influenza Vaccine: Jul 12, 2019 Past Medical History afib, CAD, mitral and tricuspid regurgitation Review of Systems-General Review of Systems Constitutional: No fever EENTM: no symptoms reported Respiratory: see HPI Cardiovascular: no symptoms reported Gastrointestinal: no symptoms reported Genitourinary: no symptoms reported Musculoskeletal: see HPI Skin: no symptoms reported Psychiatric/Neurological: No Symptoms Reported Reviewed Test Results Reviewed Test Results Lab Laboratory Tests 09/30/23 09:00: White Blood Count 10.1, Red Blood Count 2.32L, Hemoglobin 7.5L, Hematocrit 23L, Mean Corpuscular Volume 99, Mean Corpuscular Hemoglobin 32, Mean Corpuscular Hemoglobin Concent 33, Red Cell Distribution Width 16.6H, Platelet Count 204, Mean Platelet Volume 11.4, Immature Granulocyte % (Auto) 1, Neutrophils (%) (Auto) 82H, Lymphocytes (%) (Auto) 8L, Monocytes (%) (Auto) 8, Eosinophils (%) (Auto) 1, Basophils (%) (Auto) 0, Neutrophils # (Auto) 8.3H, Lymphocytes # (Auto) 0.8L, Monocytes # (Auto) 0.8, Eosinophils # (Auto) 0.1, Basophils # (Auto) 0.0, Immature Granulocyte # (Auto) 0.1, Prothrombin Time 48.6*H, INR Comment 5.0H, Activated Partial Thromboplast Time 36H, Sodium Level 134L, Potassium Level 4.4, Chloride Level 104, Carbon Dioxide Level 19L, Anion Gap 11, Blood Urea Nitrogen 113*H, Creatinine 1.40H, Estimat Glomerular Filtration Rate 36, BUN/Creatinine Ratio 81, Glucose Level 161H, Calcium Level 9.9, Corrected Calcium 10.1, Magnesium Level 2.4, Total Bilirubin 1.0, Aspartate Amino Transf (AST/SGOT) 19, Alanine Aminotransferase (ALT/SGPT) 18, Alkaline Phosphatase 67, Troponin I < 0.028, B-Type Natriuretic Peptide 94.4, Total Protein 5.9L, Albumin 3.8, Thyroid Stimulating Hormone (TSH) 3.88 ECG Impression ECG Initial ECG Impression: Atrial Fibrillation Physical Exam Physical Exam Vital Signs Vital Signs - First Documented 09/30/23 09/30/23 08:55 11:34 Temp 35.8 Pulse 79 Resp 18 B/P (MAP) 106/61 (76) Pulse Ox 99 O2 Delivery Room Air Capillary Refill : Less Than 3 Seconds Height, Weight, BMI Height: 5'5.00" Weight: 202lbs. 1.0oz. 90.792876zd; 33.00 BMI Method:Actual General Appearance: No Apparent Distress, WD/WN Eyes: Bilateral Eye Normal Inspection HEENT: PERRL/EOMI, Normal ENT Inspection, Pharynx Normal Neck: Full Range of Motion, Normal Inspection, Non Tender, Supple Respiratory: Chest Non Tender, Lungs Clear, Normal Breath Sounds, No Accessory Muscle Use, No Respiratory Distress Cardiovascular: Normal Peripheral Pulses, Irregularly Irregular Gastrointestinal: Normal Bowel Sounds, Non Tender, Soft; No Distended, No Guarding Back: Normal Inspection, No CVA Tenderness, No Vertebral Tenderness Extremity: Normal Capillary Refill, Normal Inspection, Normal Range of Motion, Non Tender, No Calf Tenderness Neurologic/Psychiatric: Alert, Oriented x3, No Motor/Sensory Deficits, Normal Mood/Affect, back hand II-XII Norm as Tested Skin: Normal Color, Warm/Dry A/P-Cardiology Admission Diagnosis GI bleed Chronic afib tricuspid recurgitation HTn Assessment/Plan Acute GI bleed, receiving blood transfusion. Management per medical services. Increased dyspnea on exertion, multifactorial. Had extensive work-up done in 2019. Still having worsening dyspnea, likely exacerbated by ABL anemia and known valvular heart disease Patient is reporting some increasing palpitation and pressure or discomfort on the right side of her chest. She has underlying moderate to severe mitral regurgitation, moderate aortic stenosis. Scheduled for stress test as outpatient on October 09, 2023. Chronic atrial fibrillation, maintained on warfarin and beta-blockers. Warfarin currently on hold d/t GI bleed Maintained on carvedilol 25 mg twice daily Coumadin toxicity, INR is 5, receiving FFP and blood transfusion Continue to monitor Sinus node dysfunction, history of single-chamber pacemaker implant done in 2012. Pacemaker interrogation was done on September 03, 2023 showing good sensing and capture activity, ventricular paced 55%, no arrhythmia detected. Moderate to severe mitral regurgitation, moderate to severe tricuspid regurgitation, dyspnea, patient was referred to and visited with Dr. Soria and Dr. Espino in August 2020 for possible mitral valve clip Her YURIDIA at was suggested at least moderate mitral regurgitation, Right heart catheterization and left heart catheterization done at , recommendation for now was conservative management Most recent 2D echo was done in August 2023 with normal LV size, mild LVH, EF 55-60%, biatrial enlargement, moderate mitral regurgitation, moderate aortic stenosis with peak gradient 22 mmHg mean gradient 13 mmHg valve area 1.19 cm, severe tricuspid regurgitation, PA pressure 50 to 55 mmHg Coronary artery disease mild stable at this time. Underwent complete heart cath at in 2019. Continue to monitor, no changes are recommended Peripheral arterial disease, RAFAEL was done on August 05, 2023 and it was normal on the right of 1.10 with abnormal TBI of 0 0.52. RAFAEL on the left was mildly abnormal at 0.85 with TBI 0.72. Currently asymptomatic Has mild varicose vein. Continue to monitor, patient was reassured. Hypertension, continue to monitor. Hyperlipidemia, maintained on atorvastatin 40 mg daily History of anemia, recently started receiving iron transfusions. Gastroesophageal reflux disease RYAN, maintained on CPAP Mild bilateral carotid stenosis, underwent CTA head/neck in September 2022 showing nonobstructive disease. Hypothyroidism, managment per PCP Thank you for allowing us to participate in the management of Ms. Salamanca. This is Mary Kate Eric PA-C, as a scribe for Dr. James. Patient was seen and evaluated with Mary Kate, Josiane interviewed and examined the patient, having orthostatic dizziness and lightheadedness, hypotension Receiving blood transfusion and IV fluid and fresh frozen plasma Monitor closely, try to maintain INR between 2 and 2.5 at this point if possible Patient might require endoscopy, Dr. Hung was consulted Monitor blood pressure and heart rate MARY KATE ERIC PA-C Sep 30, 2023 11:39 APOORVA JAMES MD Sep 30, 2023 13:40
--- NOTE | 2023-09-30 12:00 | Progress Note-Pre Operative ---
Pre-Operative Progress Note Date of Available H&P: Sep 30, 2023 Date H&P Reviewed: Sep 30, 2023 Time H&P Reviewed: 12:00 History & Physical: No changes noted Pre-Operative Diagnosis: upper gi bleed ADRIANO DEL ANGEL MD Sep 30, 2023 12:00
[2023-09-30] MEDS ORDERED: ONDANSETRON 4 MG ORAL DISSOLVE TABLET PO PRN (12:30)
[2023-09-30] MEDS ORDERED: diphenhydrAMINE INJ 50 MG/ML VIAL IVP PRN (12:30)
[2023-09-30] MEDS ORDERED: ACETAMINOPHEN 325 MG TABLET PO PRN (12:30)
[2023-09-30] MEDS ORDERED: ONDANSETRON INJECTION 4 MG/2 ML (SDV) IV PRN (12:30)
[2023-09-30] MEDS ORDERED: LACTULOSE SYRUP 10GM/15ML 30ML UDC PO PRN (12:30)
[2023-09-30] MEDS ORDERED: BISACODYL 10 MG SUPPOSITORY PR PRN (12:30)
[2023-09-30] MEDS ORDERED: oxyCODONE IMMEDIATE RELEASE 5 MG TABLET PO PRN (12:30)
[2023-09-30] MEDS ORDERED: HYDROmorphone INJECTION 2 MG/ML VIAL IV PRN (12:30)
[2023-09-30] MEDS ORDERED: MILK OF MAGNESIA 400 MG/5 ML 30 ML UDC PO PRN (12:30)
[2023-09-30] MEDS: NOREPINEPHRINE 8 MG/250 ML 250 ML IV SCH (12:30)
[2023-09-30] MEDS ORDERED: CALCIUM CARBONATE 500 MG CHEW TABLET PO PRN (12:30)
[2023-09-30] MEDS ORDERED: NS IV 500 ML 500 ML IV PRN (12:30)
[2023-09-30] MEDS ORDERED: diphenhydrAMINE 25 MG TABLET PO PRN (12:30)
[2023-09-30] MEDS ORDERED: ANTACID SUSPENSION 30 ML UDC PO PRN (12:30)
--- NOTE | 2023-09-30 12:32 | CONSULTATION REPORT ---
DATE OF SERVICE: 09/30/2023 ATTENDING PRIMARY CARE PHYSICIAN: Dr. Jeanie Black. ADMITTING PHYSICIAN: Dr. Mcgill. HISTORY OF PRESENT ILLNESS: The patient is an 88-year-old female who presented to the Emergency Department this morning with generalized weakness as well as a sensation of lightheadedness. She states that due to this she did fall, however, did not sustain any injuries. She also does not report any loss of consciousness. The patient was brought to the Emergency Department where she was found to be anemic with a hemoglobin of 7.5. The patient was also found to be supratherapeutic on her Coumadin with an INR of 5.0. The patient does take this for her history of atrial fibrillation with a known ejection fraction of 65%. The patient also does have some renal insufficiency. Upon further questioning, she does report that she has been having dark tarry stools for the past week and does have a history of reflux type of symptoms. PAST MEDICAL HISTORY: Atrial fibrillation, degenerative joint disease, renal insufficiency, peripheral vascular disease, hypertension. PAST SURGICAL HISTORY: Bilateral total knee arthroplasty renal artery angioplasty and stent placement, pacemaker implantation, wrist surgery. ALLERGIES: LISINOPRIL, SULFA AND MORPHINE. MEDICATIONS: Aspirin 81 mg daily, atorvastatin 40 mg daily, carvedilol 25 mg b.i.d., chlorhexidine mouthwash b.i.d., furosemide 40 mg daily, isosorbide mononitrate 30 mg daily, levothyroxine 50 mcg daily, losartan 50mg b.i.d., Protonix 40 mg daily, potassium 10 mEq daily, spironolactone 25 mg daily, Coumadin 6 mg daily. SOCIAL HISTORY: Negative smoke, negative alcohol. FAMILY HISTORY: Noncontributory. VITAL SIGNS: Temperature 35.8, blood pressure 102/58, pulse 82, respirations 18, pulse ox 97% on room air. REVIEW OF SYSTEMS: Well-nourished female, currently in no acute distress. She is not experiencing shortness of breath or difficulty breathing. No chest pain, palpitations, diaphoresis. She has had a generalized weakness as well as lightheadedness and did lightly fall due to this while semi-catching herself. She also does have a history of gastroesophageal reflux disease and also has noticed dark tarry stools for the past week. No red blood per rectum. No fever, chills, no recent inadvertent weight loss. All other review of systems negative. PHYSICAL EXAMINATION: CHEST: Few scattered rales bilaterally. HEART: Regular. No murmurs. EXTREMITIES: Plus 1/3 bilateral lower extremity edema. Negative Homans sign. HEENT: No scleral icterus. No cervical lymphadenopathy. ABDOMEN: Soft, nondistended with mild discomfort in the epigastric upon deep palpation. No peritoneal signs. No hernias. SKIN: Warm, dry. LABORATORY DATA: WBC 10.1, hemoglobin 7.5, hematocrit 23, platelets 204. BUN 113, creatinine 1.40. Liver function enzymes normal. PT 48.6 with an INR of 5.0. ASSESSMENT AND PLAN: An 88-year-old female with symptomatic upper gastrointestinal bleeding. Due to a this history, she likely does have an upper gastrointestinal bleed and we will treat her appropriately with a PPI acid reducers, however, on this admission, we will also proceed with an EGD as well as possible intervention if necessary. Job ID: [id number] DocumentID: [id number] Dictated Date: 09/30/2023 12:05:43 Soldering Machine Operator Automatic Date: 09/30/2023 12:30:00 Dictated By: ADRIANO DEL ANGEL MD [facility]
[2023-09-30] MEDS ORDERED: PHYTONADIONE IV ONE (12:45)
[2023-09-30] MEDS ORDERED: NS IV ONE (12:45)
[2023-09-30] MEDS: NS IV 1000 ML 1,000 ML IV SCH (13:14)
--- NOTE | 2023-09-30 13:23 | History & Physical ---
CAPO YEPEZ 09/30/23 1323: History of Present Illness History of Present Illness Reason for visit/HPI 88 year old female presented to the ED this morning with generalized weakness and lightheadedness. She was then admitted to the ICU. Pt is currently feeling weak and lightheaded. Admits to LOC episode this morning before the ED and another episode while in the ED. She reports that this has been worsening for some time now. For the past week the pt reports dark, tarry stools but denies any bright red blood. Her last BM was yesterday morning and the dark, tarry color was present. Pt feels that when she strains during a BM she becomes lightheaded and feels like she could pass out. Positive assoc sx include BULLARD, LOC episodes, heavy chest on exertion, and rt ear pain. Negative assoc sx include nausea, vomiting or vomiting blood, blood in urine, GOODMAN, eye pain, or double vision. For the past several months she has noticed decreased endurance and she gets fatigued after 10-15 steps. This causes her to stop and catch her breath before resuming. This has caused the pt to decrease her normal exercising routine. Pt takes all of her medications as prescribed and does not miss dosages. Reports drinking plenty of fluids. Date of Admission Sep 30, 2023 at 12:06 I consulted on this patient on 09/30/23 13:14 Attending Physician Jeanie Black DO Admitting Physician Admitting Physician: Diamond Zambrano DO Attending Physician: Diamond Zambrano DO Consult Allergies and Home Medications Allergies Coded Allergies: lisinopril (Verified Allergy, Unknown, 09/30/23) Sulfa (Sulfonamide Antibiotics) (Unverified Adverse Reaction, Unknown, 11/02/19) morphine (Verified Adverse Reaction, Unknown, 04/30/19) Hallucinations Patient Home Medication List Aspirin (Aspirin EC) 81 Mg Tablet., 81 MG PO DAILY, (Reported) Entered as Reported by: DC REEVES on 09/29/23 1412 Last Action: Reviewed Atorvastatin Calcium (Atorvastatin Calcium) 40 Mg Tablet, 40 MG PO HS, (Reported) Entered as Reported by: DC REEVES on 09/29/23 1435 Last Action: Reviewed Carvedilol (Carvedilol) 25 Mg Tablet, 25 MG PO BID, (Reported) Entered as Reported by: ELIO CASPER on 11/02/191339 Last Action: Reviewed Denosumab (Prolia) 60 Mg/Ml Disp.syrin, 60 MG SQ, (Reported) Entered as Reported by: LUZMA MANDUJANO on 09/30/23 1842 Last Action: New Order Furosemide (Furosemide) 40 Mg Tablet, 40 MG PO DAILY, (Reported) Entered as Reported by: ELIO CASPER on 11/02/191339 Last Action: Reviewed Levothyroxine Sodium (Levothyroxine Sodium) 50 Mcg Tablet, 50 MCG PO DAILY, (Reported) Entered as Reported by: ELIO CASPER on 11/02/191339 Last Action: Reviewed Losartan Potassium (Losartan Potassium) 50 Mg Tablet, 50 MG PO BID, (Reported) Entered as Reported by: ELIO CASPER on 11/02/191339 Last Action: Edited Pantoprazole Sodium (Protonix) 40 Mg Tablet.dr, 40 MG PO DAILY, (Reported) Entered as Reported by: DC REEVES on 09/29/23 143 Last Action: Reviewed Potassium Chloride (Potassium Chloride) 10 Meq Tab.er.prt, 10 MEQ PO DAILY, (Reported) Entered as Reported by: DC REEVES on 09/29/23 1412 Last Action: Reviewed Spironolactone (Spironolactone) 25 Mg Tablet, 25 MG PO DAILY, (Reported) Entered as Reported by: DC REEVES on 09/29/23 1435 Last Action: Reviewed Warfarin Sodium (Warfarin Sodium) 2 Mg Tablet, 2 MG PO, (Reported) Entered as Reported by: ELIO CASPER on 11/02/191339 Last Action: Edited Warfarin Sodium (Warfarin Sodium) 4 Mg Tablet, 4 MG PO, (Reported) Entered as Reported by: ELIO CASPER on 11/02/191339 Last Action: Edited Discontinued Medications Chlorhexidine Gluconate (Chlorhexidine Gluconate) 0.12 % Mouthwash, 15 ML MM BID, (Reported) Discontinued Reason: No Longer Taking Entered as Reported by: DC REEVES on 09/29/23 1452 Last Action: Discontinued Isosorbide Mononitrate (Isosorbide Mononitrate ER) 30 Mg Tab.er.24h, 30 MG PO D AILY, (Reported) Discontinued Reason: No Longer Taking Entered as Reported by: ELIO CASPER on 11/02/19 1340 Last Action: Discontinued Pravastatin Sodium (Pravastatin Sodium) 40 Mg Tablet, 40 MG PO DAILY, (Reported) Discontinued Reason: No Longer Taking Entered as Reported by: ELIO CASPER on 11/02/190 Past Jpukotp-Sxuibv-Njpemh Hx Patient Social History 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[employer]) Tobacco Use?: No Smoking Status: Never a Smoker Substance use?: No Alcohol Use?: Yes Alcohol type: Wine Alcohol Frequency: Couple times a week (2x week has 1-2 small glasse) Pt feels they are or have been: No Immunizations Up To Date Date of Influenza Vaccine: Jul 12, 2019 First/Initial COVID19 Vaccinat: DEC 2020 Second COVID19 Vaccination Samir: DEC 2020 Tetanus Booster (TDap): Less Than 5 Years Hepatitis A: No Hepatitis B: No PED Vaccines UTD: Yes Date of Pneumonia Vaccine: Apr 23, 2019 Current Status Advance Directives: No Communicates: Verbally Primary Language: Croatian Preferred Spoken Language: Croatian Is interpretation needed?: No Implanted or Applied Medical D: Orthopedic hardware, Pacemaker Past Medical History Surgeries: Adenoidectomy, Hysterectomy, Tonsillectomy Asthma, Sleep Apnea Atrial Fibrillation, Hypertension Stroke [employer] History: Hysterectomy Arthritis What Type of Treatment Did You: Surgical Intervention Blood Disorders: No Family Medical History Cancer of mouth Cardiovascular disease G8 BROTHER, ( in 2018 ) G8 BROTHER (alive ) FH: atrial fibrillation G8 BROTHER, FH: cancer 19 FATHER, (Lung CA is suspected) Hypertension 19 MOTHER, , Age:30 Myocardial infarction 19 MOTHER, , Age:30, Onset:30 ( at 30 ) Review of Systems Constitutional: No chills; dizziness; No fever; weakness EENTM: No ear discharge, No hearing loss, No ear pain, No blurred vision, No double vision, No eye pain, No vision loss, No dental problems, No hoarseness, No mouth pain, No nose pain Respiratory: No cough, No short of breath, No wheezing Cardiovascular: No chest pain, No palpitations; syncope Gastrointestinal: No abdominal pain, No constipation, No diarrhea, No jaundice, No nausea, No vomiting Genitourinary: No frequency, No hematuria Psychiatric/Neurological: Denies Headache, Denies Numbness Physical Exam Vital Signs Vital Signs - First Documented 09/30/23 09/30/23 08:55 11:34 Temp 35.8 Pulse 79 Resp 18 B/P (MAP) 106/61 (76) Pulse Ox 99 O2 Delivery Room Air Capillary Refill : Less Than 3 Seconds Height, Weight, BMI Height: 5'5.00" Weight: 202lbs. 1.0oz. 90.725543pk; 33.00 BMI Method:Actual General Appearance: No Apparent Distress, WD/WN Eyes: Bilateral Eye Normal Inspection HEENT: PERRL/EOMI; No Photophobia, No Scleral Icterus (L), No Scleral Icterus (R) Neck: Normal Inspection, Non Tender Respiratory: Chest Non Tender, Normal Breath Sounds, No Accessory Muscle Use, No Respiratory Distress Cardiovascular: Regular Rate, Rhythm, No Edema, No JVD, No Murmur Gastrointestinal: Normal Bowel Sounds, Non Tender, Soft; No Distended, No Guarding, No Rebound Extremity: Non Tender, No Calf Tenderness Neurologic/Psychiatric: Alert, Oriented x3, No Motor/Sensory Deficits, Normal Mood/Affect, farrowing worker II-XII Norm as Tested; No Facial Droop Assessment/Plan Assessment and Plan Assessment: Symptomatic upper gastrointestinal bleeding A. fib HTN Hyperlipidemia Hypothyroidism GERD Plan: Symptomatic upper gastrointestinal bleeding -tx will PPIs and EGD will be performed if necessary -continue blood transfusion and monitor pt's status A. fib -continue to monitor and consult with cardiology -Scheduled for stress test as outpatient on October 09, 2023. -warfarin currently on hold HTN -continue to monitor Hyperlipidemia -continue current tx Hypothyroidism -continue current tx GERD -continue to monitor Clinical Quality Measures DVT/VTE Risk/Contraindication: Contraindications-Pharm: Other *list below* Other: DIAMOND Copeland DO 09/30/23 1950: History of Present Illness History of Present Illness Reason for visit/HPI CC: Severe anemia with presumed GIB HPI: This is an 88yoWF clinic patient of Dr Black who was recently diagnosed with anemia iron deficiency who received iron infusion for the first time yesterday who presented to the ER with weakness and near syncope and was found to have anemia and elevated BUN presumed to be from blood in the gut. Cardiology consulted for valvular disease and Dr Hung for scopes. Date Seen by a Provider: Sep 30, 2023 Time Seen by a Provider: 13:00 Allergies and Home Medications Allergies Coded Allergies: lisinopril (Verified Allergy, Unknown, 09/30/23) Sulfa (Sulfonamide Antibiotics) (Unverified Adverse Reaction, Unknown, 11/02/19) morphine (Verified Adverse Reaction, Unknown, 04/30/19) Hallucinations Patient Home Medication List Home Medication List Reviewed: Yes Aspirin (Aspirin EC) 81 Mg Tablet.dr, 81 MG PO DAILY, (Reported) Entered as Reported by: DC REEVES on 09/29/23 141 Last Action: Reviewed Atorvastatin Calcium (Atorvastatin Calcium) 40 Mg Tablet, 40 MG PO HS, (Reported) Entered as Reported by: DC REEVES on 09/29/23 143 Last Action: Reviewed Carvedilol (Carvedilol) 25 Mg Tablet, 25 MG PO BID, (Reported) Entered as Reported by: ELIO CASPER on 11/02/19 134 Last Action: Reviewed Denosumab (Prolia) 60 Mg/Ml Disp.syrin, 60 MG SQ, (Reported) Entered as Reported by: LUZMA MANDUJANO on 09/30/23 1842 Last Action: New Order Furosemide (Furosemide) 40 Mg Tablet, 40 MG PO DAILY, (Reported) Entered as Reported by: ELIO CASPER on 11/02/19 134 Last Action: Reviewed Levothyroxine Sodium (Levothyroxine Sodium) 50 Mcg Tablet, 50 MCG PO DAILY, (Reported) Entered as Reported by: ELIO CASPER on 11/02/19 134 Last Action: Reviewed Losartan Potassium (Losartan Potassium) 50 Mg Tablet, 50 MG PO BID, (Reported) Entered as Reported by: ELIO CASPER on 11/02/19 134 Last Action: Edited Pantoprazole Sodium (Protonix) 40 Mg Tablet.dr, 40 MG PO DAILY, (Reported) Entered as Reported by: DC REEVES on 09/29/23 143 Last Action: Reviewed Potassium Chloride (Potassium Chloride) 10 Meq Tab.er.prt, 10 MEQ PO DAILY, (Reported) Entered as Reported by: DC REEVES on 09/29/23 141 Last Action: Reviewed Spironolactone (Spironolactone) 25 Mg Tablet, 25 MG PO DAILY, (Reported) Entered as Reported by: DC REEVES on 09/29/23 1435 Last Action: Reviewed Warfarin Sodium (Warfarin Sodium) 2 Mg Tablet, 2 MG PO, (Reported) Entered as Reported by: ELIO CASPER on 11/02/19 134 Last Action: Edited Warfarin Sodium (Warfarin Sodium) 4 Mg Tablet, 4 MG PO, (Reported) Entered as Reported by: ELIO CASPER on 11/02/191339 Last Action: Edited Discontinued Medications Chlorhexidine Gluconate (Chlorhexidine Gluconate) 0.12 % Mouthwash, 15 ML MM BID, (Reported) Discontinued Reason: No Longer Taking Entered as Reported by: DC REEVES on 09/29/23 1452 Last Action: Discontinued Isosorbide Mononitrate (Isosorbide Mononitrate ER) 30 Mg Tab.er.24h, 30 MG PO DAILY, (Reported) Discontinued Reason: No Longer Taking Entered as Reported by: ELIO CASPER on 11/02/191339 Last Action: Discontinued Pravastatin Sodium (Pravastatin Sodium) 40 Mg Tablet, 40 MG PO DAILY, (Reported) Discontinued Reason: No Longer Taking Entered as Reported by: ELIO CASPER on 11/02/191339 Past Nyroodh-Ffloyf-Msisdd Hx Patient Social History Marrital Status: single 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[employer]) Smoking Status: Never a Smoker Past Medical History Hypertension, Valvular Heart Disease Family Medical History Cancer of mouth Cardiovascular disease G8 BROTHER, ( in 2018 ) G8 BROTHER (alive ) FH: atrial fibrillation G8 BROTHER, FH: cancer 19 FATHER, (Lung CA is suspected) Hypertension 19 MOTHER, , Age:30 Myocardial infarction 19 MOTHER, , Age:30, Onset:30 ( at 30 ) Review of Systems Constitutional: see HPI, dizziness Physical Exam General Appearance: No Apparent Distress, WD/WN, Chronically ill Respiratory: Lungs Clear, Normal Breath Sounds Cardiovascular: Irregularly Irregular Assessment/Plan Assessment and Plan Assessment: Anemia symptomatic requiring blood transfusions Presumed GIB Iron deficiency receiving iron infusions as outpatient Near syncope AF Valvular heart disease Plan: Transfuse Reverse INR with FFP and Vit K Admission Diagnosis Admission Status: Inpatient Order (span 2 midnights) Reason for Inpatient Admission: severe anemia and GIB with AF Supervisory-Addendum Brief Verification & Attestation Participated in pt care: history, MDM, physical Personally performed: exam, history, MDM, supervision of care Care discussed with: Medical Student Procedures: n/a Results interpretation: Verified all documentation Verification and Attestation of Medical Student E/M Service A medical student performed and documented this service in my presence. I reviewed and verified all information documented by the medical student and made modifications to such information, when appropriate. I personally performed the physical exam and medical decision making. Diamond Zambrano, Sep 30, 2023,19:50 CAPO YEPEZ Sep 30, 2023 13:23 DIAMOND ZAMBRANO DO Sep 30, 2023 19:50
[2023-09-30] MEDS ORDERED: CYANOCOBALAMIN 1000 MCG/ML 1 ML VIAL IM NR (13:45)
--- NOTE | 2023-09-30 13:50 | Tele-ICU Progress Note ---
Subjective Date Seen by a Provider: Sep 30, 2023 Time Seen by a Provider: 13:49 Subjective/Events-last exam (Tele-ICU Physician , Progress Note ) Service provided via interactive audio and video telecommunications [facility] ystem to a patient admitted to ICU bed in [facility]. Patient is seen today due to persistent need of ICU care Available chart/ vitals / labs / Images reviewed Video assessment done using teleICU camera, rest of exam as per RN 88 yr. old female with hx of HTN, afib on warfarin presented with hx of passing dark stool, syncopal episode. HB 7.5 in ED. UGIB suspected and gave 2 units of prbc's and 2 units of FFp. subsequently admitted to icu. Cardilogy and Gen. surg consults requested and seen by the. I have discussed earlier with ED physician. as hx of Multivalvular heart disease, s/p PPM insertion in 2012. now after prbc's infusion she is resting comfortably. Impression 1. Possible upper GI Bleed with acute blood loss anemia. 2. syncope. 3. chronic anticoagulant therapy with supra therapeutic inr. 4. Chr. afib on warfarin 5. Multi valvular heart disease. Plan. 1. continue PPIs 2. monitor hb. 3. Gen. surgical consult on board. possible gastroscope soon. 4. cardiology consult on board. 5.hold off warfarin for now and monitor inr. Collaboration of care with primary care and bed side consultants Certain portions of this document may have been dictated utilizing voice recognition technology such as [employer]. Inherent to this technology, typographical and grammatical errors may exist. As much as I am diligent to identify and correct to these mistakes, some errors may remain in the document. Critical care time devoted to this patient today is approximately is--20 minutes. Sepsis Event Evaluation Height, Weight, BMI Height: 5'5.00" Weight: 202lbs. 1.0oz. 90.978302wi; 33.00 BMI Method:Actual Exam Exam Patient acknowledged, consented, and participated in this virtual visit which was conducted using real time audio/video Vital Signs Date Time Temp Pulse Resp B/P (MAP) Pulse Ox O2 Delivery O2 Flow Rate FiO2 09/30/23 12:30 68 20 132/75 (94) 96 Room Air 09/30/23 12:20 72 09/30/23 12:15 77 19 119/61 (80) 96 Room Air 09/30/23 12:10 81 16 102/56 97 09/30/23 11:49 36.0 83 18 121/76 98 09/30/23 11:34 35.8 82 18 102/56 97 Room Air 09/30/23 08:55 79 18 106/61 (76) 99 Height & Weight Height: 5'5.00" Weight: 202lbs. 1.0oz. 90.542366zy; 33.00 BMI Method:Actual General Appearance: No Apparent Distress, WD/WN HEENT: PERRL/EOMI; No Photophobia, No Scleral Icterus (L), No Scleral Icterus (R) Neck: Normal Inspection, Non Tender Respiratory: Chest Non Tender, Normal Breath Sounds, No Accessory Muscle Use, No Respiratory Distress Cardiovascular: Regular Rate, Rhythm, No Edema, No JVD, No Murmur Capillary Refill: Less Than 3 Seconds Extremity: Non Tender, No Calf Tenderness Neurologic/Psychiatric: Alert, Oriented x3, No Motor/Sensory Deficits, Normal Mood/Affect, customer experience consultant II-XII Norm as Tested; No Facial Droop Skin: Normal Color, Warm/Dry Results Lab Laboratory Tests 09/30/23 09:00 Assessment/Plan Assessment/Plan as above Critical Care: Critically Ill Patient Time spent with patient (mins): 20 MAURICE GUTIERREZ MD Sep 30, 2023 13:50
[2023-09-30] MEDS ORDERED: LACTATED RINGERS 1,000 ML 1,000 ML IV STA (13:52)
[2023-09-30] MEDS ORDERED: HURRICAINE EXT TUBE (BENZOCAINE) ONE (13:55)
[2023-09-30] MEDS ORDERED: LACTATED RINGERS 1,000 ML 1,000 ML IV ONE (13:55)
[2023-09-30] MEDS ORDERED: HURRICAINE EXT TUBE (BENZOCAINE) XX PRN (14:00)
[2023-09-30] MEDS ORDERED: LIDOCAINE JELLY 2% 6 ML SYRINGE ONE (15:43)
--- NOTE | 2023-09-30 16:42 | Anesthesia-General Post-Op ---
MAC Patient Condition Mental Status/LOC: Same as Preop Cardiovascular: Satisfactory Nausea/Vomiting: Absent Respiratory: Satisfactory Pain: Controlled Complications: Absent Post Op Complications Complications None Follow Up Care/Instructions Patient Instructions None needed. Anesthesiology Discharge Order Discharge Order Patient is doing well, no complaints, stable vital signs, no apparent adverse anesthesia problems. No complications reported per nursing. EWA MARSHALL CRNA Sep 30, 2023 16:42
[2023-09-30] MEDS ORDERED: DENO60DI SQ ×2 (18:42)
[2023-09-30] MEDS: PANTOPRAZOLE INJECTION 40 MG VIAL IV SCH (20:44)
[2023-09-30] MEDS: SENNOSIDES 8.6 MG TABLET PO SCH (20:44)
[2023-09-30] MEDS: DOCUSATE SODIUM 100 MG CAPSULE PO SCH (20:44)
[2023-09-30] MEDS: MELATONIN 3 MG TABLET PO PRN (22:19)
[2023-09-30 23:49] LABS: HEMOGLOBIN 7.4 g/dL (11.5-16.0)
[2023-10-01 00:07] LABS: INR 1.6 (0.8-1.4); PROTHROMBIN TIME PATIENT 19.6 SEC (12.2-14.7)
[2023-10-01 00:13] VITALS: BP 88/57
[2023-10-01 00:28] VITALS: BP 117/57
--- NOTE | 2023-10-01 01:42 | OPERATIVE REPORT ---
DATE OF SERVICE: 09/30/2023 ATTENDING PRIMARY CARE PHYSICIAN: Jeanie Black DO PREOPERATIVE DIAGNOSIS: Symptomatic upper gastrointestinal bleeding. POSTOPERATIVE DIAGNOSES: Reflux esophagitis, [place] grade B, mild distal esophageal stricture, small to moderate size hiatal hernia, 2.5 cm in size. There was old dark blood within the stomach. There was no red blood or any active bleeding identified. There was a moderate gastritis as well as a moderate duodenitis. PROCEDURE: EGD with biopsy and balloon dilatation. SURGEON: Adriano Del Angel MD ANESTHESIA: Monitored anesthesia care. ESTIMATED BLOOD LOSS: Minimal. FINDINGS: Reflux esophagitis, [place] grade B, mild distal esophageal stricture, small to moderate size hiatal hernia, 2.5 cm in size. There was old dark blood within the stomach. There was no red blood or any active bleeding identified. There was a moderate gastritis as well as a moderate duodenitis. DISPOSITION: The patient tolerated the procedure well. INDICATIONS: The patient is an 88-year-old female who presented to the Emergency Department with a 1 week history of worsening fatigue and shortness of breath. She states that she felt so fatigued that she felt her legs buckling and she did go to the floor, however, was able to catch herself to prevent any injury. She was brought to the emergency room where laboratory work was done and she was found to be anemic with a hemoglobin of 7.5. The patient is also on Coumadin for an atrial fibrillation and was found to be supratherapeutic with INR 5.0. Upon further questioning, she also reports that she has noticed dark tarry stools for the past week as well. She is currently on Protonix 40 mg daily. DESCRIPTION OF PROCEDURE: The patient was brought to the endoscopy suite and laid in the left lateral decubitus position. After adequate IV pain and sedative medications and monitored anesthesia care, the mouthpiece was applied. The endoscope was placed in the mouth, visualized the pharynx and hypopharyngeal region. Vocal cords, epiglottis and vallecula identified and appeared to be normal. The endoscope was then gently intubated in the esophageal opening and esophagus insufflated. The endoscope was then advanced into the first, second and third portions of esophagus at the level of the GE junction, reflux esophagitis, [place] grade B identified. There were no ulcers or strictures identified in this region however, there was a mild distal esophageal stricture. A biopsy was taken of the GE junction with visualization of good hemostasis. The endoscope was then advanced into the stomach and endoscope retroflexed visualizing a small to moderate size hiatal hernia approximately 2.5 cm in size. Throughout the stomach, there was a coating of old chronic dark blood. This was irrigated as well as possible and suctioned out with no active bleeding sources identified. There was a moderate severity gastritis as well as moderate duodenitis, again with no active bleeding. Biopsies were taken of the stomach, antrum as well as the duodenum with forceps with visualization of good hemostasis. The balloon was then placed in the stomach and pulled back to the area of the stricture. We then proceeded with graded dilatation from 2, 4, then eventually 5 atmospheres of pressure of approximately 19.5 mm in luminal diameter, where we reach moderate resistance and left the balloon in place for approximately 60 seconds. The balloon was then desufflated and removed with visualization of good hemostasis as well as no mucosal tears. The endoscope was slowly withdrawn while taking a second look and suctioning of residual air with no additional findings. The patient tolerated the procedure well. We will again recommend that necessary lifestyle and dietary accommodation including small and more frequent meals, avoidance of eating at night as well as head elevation while lying supine. She also needs to avoid caffeinated beverages, spicy, greasy and acidic foods. She is currently on Protonix 40 mg daily; however, this does not appear to be effective enough and we will start her also on omeprazole 40 mg a day taken at a separate time during the day as well as Carafate 1 gram q.i.d., starting while on this admission and following through for a total of 2 weeks at home. Job ID: [id number] DocumentID: [id number] Dictated Date: 09/30/2023 16:12:14 Director Of Solutions Architecture Date: 10/01/2023 01:40:00 Dictated By: ADRIANO DEL ANGEL MD
[2023-10-01 02:05] VITALS: BP 96/45
[2023-10-01 06:09] LABS: BASOPHILS % (AUTO) 0 % (0-10); EOSINOPHILS # (AUTO) 0.1 10^3/uL (0.0-0.3); EOSINOPHILS % (AUTO) 1 % (0-10); HEMATOCRIT 24 % (35-52); HEMOGLOBIN 8.2 g/dL (11.5-16.0); LYMPHOCYTES % (AUTO) 11 % (12-44); MEAN CORPUSCULAR HEMOGLOBIN 30 pg (25-34); MEAN CORPUSCULAR HGB CONC 34 g/dL (32-36); MEAN CORPUSCULAR VOLUME 90 fL (80-99); MEAN PLATELET VOLUME 11.4 fL (9.0-12.2); MONOCYTES # (AUTO) 1.2 10^3/uL (0.0-1.0); MONOCYTES % (AUTO) 14 % (0-12); NEUTROPHILS # (AUTO) 6.4 10^3/uL (1.8-7.8); NEUTROPHILS % (AUTO) 71 % (42-75); PLATELET COUNT 144 10^3/uL (130-400)
[2023-10-01] MEDS: NS IV 1000 ML 1,000 ML IV SCH (06:24)
[2023-10-01 06:30] LABS: ALBUMIN 3.3 GM/DL (3.2-4.5); POTASSIUM 4.1 MMOL/L (3.6-5.0)
[2023-10-01 06:31] LABS: CALCIUM 8.6 MG/DL (8.5-10.1)
[2023-10-01 06:33] LABS: INR 1.4 (0.8-1.4); PROTHROMBIN TIME PATIENT 17.4 SEC (12.2-14.7); TOTAL PROTEIN 5.1 GM/DL (6.4-8.2)
[2023-10-01 06:34] LABS: BILIRUBIN,TOTAL 1.8 MG/DL (0.1-1.0)
[2023-10-01 06:36] LABS: CREATININE SERUM 1.2 MG/DL (0.60-1.30); PHOSPHORUS 2.8 MG/DL (2.3-4.7)
[2023-10-01] MEDS: POTASSIUM CL 10MEQ/50ML IVPB 50 ML IV SCH (06:36)
[2023-10-01] MEDS: POTASSIUM CHLORIDE 20 MEQ TABLET PO SCH (06:36)
[2023-10-01 06:39] LABS: MAGNESIUM 2.2 MG/DL (1.6-2.4)
[2023-10-01] MEDS: MAGNESIUM 1 GM/100 ML IVPB 100 ML IV SCH (06:40)
[2023-10-01] MEDS: DOCUSATE SODIUM 100 MG CAPSULE PO SCH ×2 (08:05→20:11)
[2023-10-01] MEDS: SENNOSIDES 8.6 MG TABLET PO SCH ×2 (08:05→20:13)
[2023-10-01] MEDS: PANTOPRAZOLE INJECTION 40 MG VIAL IV SCH (08:05)
[2023-10-01] MEDS: CYANOCOBALAMIN 1,000 MCG TABLET PO SCH (08:05)
--- NOTE | 2023-10-01 08:24 | Cardiology Progress Note ---
Subjective Date Seen by Provider: Oct 01, 2023 Time Seen by Provider: 08:21 Subjective/Events-last exam Patient is feeling well, no new complaint Feeling better Objective-Cardiology Exam Last Set of Vital Signs Vital Signs 09/30/23 10/01/23 10/01/23 16:10 07:55 08:00 Temp 36.5 Pulse 87 Resp 15 B/P (MAP) 124/57 (79) Pulse Ox 97 O2 Delivery Room Air O2 Flow Rate 4.00 I&O Intake and Output 10/01/23 00:00 Intake Total 961 ml Output Total 750 ml Balance 211 ml Intake Oral 400 ml IV Total 251 ml Other 310 ml Output Urine Total 750 ml Daily Weight Change No General: Alert, Oriented X3, Cooperative HEENT: Atraumatic, PERRLA Neck: Supple, No JVD, No Thyromegaly Lungs: Clear to Auscultation, Normal Air Movement Heart: Regular Rate, Normal S1, Normal S2, No Murmurs Abdomen: Normal Bowel Sounds, Soft, No Tenderness, No Hepatosplenomegaly, No Masses Extremities: No Clubbing, No Cyanosis, No Edema, Normal Pulses, No Tenderness/Swelling Skin: No Rashes, No Breakdown, No Significant Lesion Neuro: Normal Gait, Normal Speech, Strength at 5/5 X4 Ext, Normal Tone, Sensation Intact Psych/Mental Status: Mental Status NL, Mood NL Results Lab Laboratory Tests 09/30/23 09:00 09/30/23 19:32 09/30/23 23:35 10/01/23 05:30 A/P-Cardiology Admission Diagnosis GI bleed Chronic afib tricuspid recurgitation HTn Assessment/Plan Acute GI bleed, receiving blood transfusion. Status post endoscopy with Dr. Hung showing old blood, duodenitis, gastritis. Management per medical services. Increased dyspnea on exertion, multifactorial. Had extensive work-up done in 2019. Still having worsening dyspnea, likely exacerbated by anemia and known valvular heart disease Patient is reporting some increasing palpitation and pressure or discomfort on the right side of her chest. She has underlying moderate to severe mitral regurgitation, moderate aortic stenosis. Scheduled for stress test as outpatient on October 09, 2023. Chronic atrial fibrillation, maintained on warfarin and beta-blockers. Warfarin currently on hold d/t GI bleed Maintained on carvedilol 25 mg twice daily Coumadin toxicity, INR is 5, received FFP and blood transfusion Currently INR 1.4 We will start Lovenox if okay with Dr. Hung Continue to monitor Sinus node dysfunction, history of single-chamber pacemaker implant done in 2012. Pacemaker interrogation was done on September 03, 2023 showing good sensing and capture activity, ventricular paced 55%, no arrhythmia detected. Moderate to severe mitral regurgitation, moderate to severe tricuspid regurgitation, dyspnea, patient was referred to and visited with Dr. Soria and Dr. Espino in August 2020 for possible mitral valve clip Her YURIDIA at was suggested at least moderate mitral regurgitation, Right heart catheterization and left heart catheterization done at , recommendation for now was conservative management Most recent 2D echo was done in August 2023 with normal LV size, mild LVH, EF 55-60%, biatrial enlargement, moderate mitral regurgitation, moderate aortic stenosis with peak gradient 22 mmHg mean gradient 13 mmHg valve area 1.19 cm, severe tricuspid regurgitation, PA pressure 50 to 55 mmHg Coronary artery disease mild stable at this time. Underwent complete heart cath at in 2019. Continue to monitor, no changes are recommended Peripheral arterial disease, RAFAEL was done on August 05, 2023 and it was normal on the right of 1.10 with abnormal TBI of 0 0.52. RAFAEL on the left was mildly abnormal at 0.85 with TBI 0.72. Currently asymptomatic Has mild varicose vein. Continue to monitor, patient was reassured. Hypertension, continue to monitor. Hyperlipidemia, maintained on atorvastatin 40 mg daily History of anemia, recently started receiving iron transfusions. Gastroesophageal reflux disease RYAN, maintained on CPAP Mild bilateral carotid stenosis, underwent CTA head/neck in September 2022 showing nonobstructive disease. Hypothyroidism, managment per PCP APOORVA LIMA MD Oct 01, 2023 08:24
--- NOTE | 2023-10-01 09:46 | Tele-ICU Progress Note ---
Subjective Date Seen by a Provider: Oct 01, 2023 Time Seen by a Provider: 09:41 Subjective/Events-last exam (Tele-ICU Physician , Progress Note ) Service provided via interactive audio and video telecommunications [facility]-CARE s ystem to a patient admitted to ICU bed in [facility]. Patient is seen today due to persistent need of ICU care Available chart/ vitals / labs / Images reviewed Video assessment done using teleICU camera, rest of exam as per RN 88 yr. old female with hx of HTN, afib on warfarin presented with hx of passing dark stool, syncopal episode. HB 7.5 in ED. UGIB suspected and gave 2 units of prbc's and 2 units of FFp. subsequently admitted to icu. Cardilogy and Gen. surg consults requested and seen by the. I have discussed earlier with ED physician. as hx of Multivalvular heart disease, s/p PPM insertion in 2012. now after prbc's infusion she is resting comfortably.. 10/01/23 today she is feeling better. no further bleeding noted. hb stable at 8.2 gm. bun/cr improving. she had EGD yesterday and found to have hiatal hernia, ild blood in stomach,and some gastritis. no active bleed noted. Impression 1. Possible upper GI Bleed with acute blood loss anemia. 2. syncope. 3. chronic anticoagulant therapy with supra therapeutic inr.now corrected. 4. Chr. afib on warfarin now on hold 5. Multi valvular heart disease. Plan. 1. continue PPIs 2. monitor hb. 3. Gen. surgical consult and EGD findings appreciated. 4. cardiology consult on board. 5.hold off warfarin for now and monitor inr. Collaboration of care with primary care and bed side consultants Certain portions of this document may have been dictated utilizing voice recognition technology such as finalsite. Inherent to this technology, typographical and grammatical errors may exist. As much as I am diligent to identify and correct to these mistakes, some errors may remain in the document. Critical care time devoted to this patient today is approximately is--15 minutes. Sepsis Event Evaluation Height, Weight, BMI Height: 5'5.00" Weight: 202lbs. 1.0oz. 90.005326nq; 37.16 BMI Method:Actual Exam Exam Patient acknowledged, consented, and participated in this virtual visit which was conducted using real time audio/video Vital Signs Date Time Temp Pulse Resp B/P (MAP) Pulse Ox O2 Delivery O2 Flow Rate FiO2 10/01/23 09:00 67 24 105/49 (67) 98 Room Air 10/01/23 08:00 87 15 124/57 (79) 97 Room Air 10/01/23 07:55 36.5 10/01/23 07:48 97 Room Air 10/01/23 07:00 69 10/01/23 07:00 69 12 114/54 (74) 97 Room Air 10/01/23 06:00 77 17 114/65 (81) 96 Room Air 10/01/23 05:00 79 16 110/51 (70) 97 Room Air 10/01/23 04:00 82 18 108/57 (74) 95 Room Air 10/01/23 04:00 95 Room Air 10/01/23 03:00 77 22 99/53 (68) 96 Room Air 10/01/23 02:05 36.4 79 18 96/45 92 Room Air 10/01/23 02:00 75 19 98/65 (76) 93 Room Air 10/01/23 01:00 82 18 96/47 (63) 95 Room Air 10/01/23 01:00 84 10/01/23 00:28 36.7 89 16 117/57 97 Room Air 10/01/23 00:13 36.6 92 18 88/57 96 Room Air 10/01/23 00:00 36.7 10/01/23 00:00 81 20 117/59 (78) 98 Room Air 09/30/23 23:59 97 Room Air 09/30/23 23:19 36.5 65 16 100/47 97 Room Air 09/30/23 23:00 86 20 107/56 (73) 97 Room Air 09/30/23 22:13 36.7 86 18 115/63 98 Room Air 09/30/23 22:00 68 18 106/53 (70) 99 Room Air 09/30/23 21:58 36.2 80 16 117/49 98 Room Air 09/30/23 21:46 36.2 80 16 117/49 99 Room Air 09/30/23 21:00 64 19 117/49 (71) 99 Room Air 09/30/23 20:40 36.2 09/30/23 20:32 36.4 89 18 113/53 98 Room Air 09/30/23 20:17 36.1 82 16 114/50 100 Room Air 09/30/23 20:00 96 Room Air 09/30/23 20:00 87 31 113/69 (84) 100 Room Air 09/30/23 19:58 36.2 09/30/23 19:43 36.1 98 16 114/50 100 Room Air 09/30/23 19:00 89 21 114/50 (71) 99 Room Air 09/30/23 19:00 87 09/30/23 18:00 77 14 119/63 (81) 100 Room Air 09/30/23 17:58 36.4 92 18 119/63 99 Room Air 09/30/23 17:45 70 19 122/55 (77) 99 Room Air 09/30/23 17:40 36.4 97 17 114/56 100 Room Air 09/30/23 17:30 85 13 114/56 (75) 97 Room Air 09/30/23 16:10 76 18 100 OxyMask 4.00 09/30/23 16:05 75 18 100 OxyMask 4.00 09/30/23 16:00 100 Room Air 09/30/23 14:00 74 17 99/51 (67) 98 Room Air 09/30/23 13:58 36.0 68 96 09/30/23 13:45 36.1 76 15 125/92 100 Room Air 09/30/23 13:00 72 11 126/73 (90) 100 Room Air 09/30/23 12:45 72 7 112/64 (80) 99 Room Air 09/30/23 12:30 68 20 132/75 (94) 96 Room Air 09/30/23 12:30 99 Room Air 09/30/23 12:20 72 09/30/23 12:15 77 19 119/61 (80) 96 Room Air 09/30/23 12:10 81 16 102/56 97 09/30/23 11:49 36.0 83 18 121/76 98 09/30/23 11:34 35.8 82 18 102/56 97 Room Air I & O 10/01/23 07:00 Intake Total 1511 ml Output Total 1350 ml Balance 161 ml Height & Weight Height: 5'5.00" Weight: 202lbs. 1.0oz. 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
--- NOTE | 2023-10-01 09:48 | Progress Note ---
CAPO YEPEZ 10/01/23 0948: Subjective Date Seen by a Provider: Oct 01, 2023 Subjective/Events-last exam Pt reports not being in any pain. She was eating breakfast and stated that it is not causing any discomfort. Denies difficulty swallowing. Pt reports a bilateral GOODMAN that is described as "pressure". Pt is in a happy mood and is accompanied by her brother and his . Review of Systems General: No Chills, No Night Sweats, No Fatigue HEENT: Head Aches; No Visual Changes, No Eye Pain Pulmonary: No Cough Cardiovascular: No: Chest Pain, Palpitations Gastrointestinal: No: Nausea, Vomiting, Abdominal Pain Neurological: No: Weakness, Numbness, Incoordination, Change in speech, C onfusion Objective Exam Last Set of Vital Signs Vital Signs Date Time Temp Pulse Resp B/P (MAP) Pulse Ox O2 Delivery O2 Flow Rate FiO2 10/01/23 09:00 67 24 105/49 (67) 98 Room Air 10/01/23 07:55 36.5 09/30/23 16:10 4.00 Capillary Refill : Less Than 3 Seconds I&O Intake and Output 10/01/23 00:00 Intake Total 961 ml Output Total 750 ml Balance 211 ml Intake Oral 400 ml IV Total 251 ml Other 310 ml Output Urine Total 750 ml Daily Weight Change No General: Alert, Oriented X3, Cooperative, No Acute Distress HEENT: PERRLA Neck: No JVD Lungs: Clear to Auscultation, Normal Air Movement Heart: Regular Rate, No Murmurs Abdomen: Normal Bowel Sounds, Soft, No Tenderness, No Hepatosplenomegaly Extremities: No Clubbing, No Cyanosis Neuro: Normal Speech, Strength at 5/5 X4 Ext, Sensation Intact, Cranial Nerves 3-12 NL, Reflexes 2+ Psych/Mental Status: Mental Status NL, Mood NL Results Lab Laboratory Tests 09/30/23 19:32: Hemoglobin 10.0#L, Hematocrit 30L 09/30/23 23:22: SARS-CoV-2 RNA (RT-PCR) Not Detected 09/30/23 23:35: Hemoglobin 7.4#L, Hematocrit 22L, Prothrombin Time 19.6H, INR Comment 1.6H 10/01/23 05:30: Hemoglobin 8.2L, Hematocrit 24L, Prothrombin Time 17.4H, INR Comment 1.4, White Blood Count 9.0, Red Blood Count 2.70L, Mean Corpuscular Volume 90, Mean Corpuscular Hemoglobin 30, Mean Corpuscular Hemoglobin Concent 34, Red Cell Distribution Width 19.2H, Platelet Count 144, Mean Platelet Volume 11.4, Immature Granulocyte % (Auto) 2, Neutrophils (%) (Auto) 71, Lymphocytes (%) (Auto) 11L, Monocytes (%) (Auto) 14H, Eosinophils (%) (Auto) 1, Basophils (%) (Auto) 0, Neutrophils # (Auto) 6.4, Lymphocytes # (Auto) 1.0, Monocytes # (Auto) 1.2H, Eosinophils # (Auto) 0.1, Basophils # (Auto) 0.0, Immature Granulocyte # (Auto) 0.2H, Sodium Level 138, Potassium Level 4.1, Chloride Level 109H, Carbon Dioxide Level 21, Anion Gap 8, Blood Urea Nitrogen 81H, Creatinine 1.20, Estimat Glomerular Filtration Rate 44, BUN/Creatinine Ratio 68, Glucose Level 92, Calcium Level 8.6, Corrected Calcium 9.2, Phosphorus Level 2.8, Magnesium Level 2.2, Total Bilirubin 1.8H, Aspartate Amino Transf (AST/SGOT) 20, Alanine Aminotransferase (ALT/SGPT) 16, Alkaline Phosphatase 59, Total Protein 5.1L, Al bumin 3.3 Assessment/Plan Assessment/Plan Assess & Plan/Chief Complaint Assessment: Syncope and weakness s/p Upper GI bleed Reflux Esophagitis Gastritis and Duodenitis A. fib HTN Hyperlipidemia Hypothyroidism Plan: Syncope and weakness s/p Upper GI bleed -discussed switching to a new age anti-coag medication due to warfarin potentially causing her bleeds -Instructed the pt to increase her fluid and food intake Reflux Esophagitis -[place] grade B -continue PPIs Gastritis + Duodenitis -EGD performed on 09/30 found no red blood or active bleeding, only dark tarry old blood -small hiatal hernia was discovered A. fib -Scheduled for stress test as outpatient on October 09, 2023. HTN -continue to monitor Hyperlipidemia -continue current tx Hypothyroidism -continue current tx Clinical Quality Measures Admission Status Admission Dx Assessment: Symptomatic upper gastrointestinal bleeding A. fib HTN Hyperlipidemia Hypothyroidism GERD Plan: Symptomatic upper gastrointestinal bleeding -tx will PPIs and EGD will be performed if necessary -continue blood transfusion and monitor pt's status A. fib -continue to monitor and consult with cardiology -Scheduled for stress test as outpatient on October 09, 2023. -warfarin currently on hold HTN -continue to monitor Hyperlipidemia -continue current tx Hypothyroidism -continue current tx GERD -continue to monitor DVT/VTE Risk/Contraindication: Contraindications-Pharm: Other *list below* Other: DIAMOND Copeland DO 10/02/23 0503: Subjective Time Seen by a Provider: 11:00 Subjective/Events-last exam Patient doing well Hemoglobin stable Source of bleed is upper Lovenox started Talk to her about oral anticoagulation options Objective Exam General: Alert, Oriented X3, Cooperative, No Acute Distress Lungs: Clear to Auscultation, Normal Air Movement Heart: Regular Rate, Normal S1, Normal S2, No Murmurs Psych/Mental Status: Mental Status NL, Mood NL Assessment/Plan Assessment/Plan Assess & Plan/Chief Complaint We will move to fourth floor Monitor hemoglobin Supervisory-Addendum Brief Verification & Attestation Participated in pt care: history, MDM, physical Personally performed: exam, history, MDM, supervision of care Care discussed with: Medical Student Procedures: n/a Results interpretation: Verified all documentation Verification and Attestation of Medical Student E/M Service A medical student performed and documented this service in my presence. I reviewed and verified all information documented by the medical student and made modifications to such information, when appropriate. I personally performed the physical exam and medical decision making. Diamond Zambrano, Oct 02, 2023,05:02 CAPO YEPEZ Oct 01, 2023 09:48 DIAMOND ZAMBRANO DO Oct 02, 2023 05:03
[2023-10-01] MEDS: ENOXAPARIN 100 MG/1 ML SYRINGE SC SCH ×2 (10:27→20:11)
[2023-10-01] MEDS: NOREPINEPHRINE 8 MG/250 ML 250 ML IV SCH (11:15)
[2023-10-01] MEDS: POTASSIUM CHLORIDE 10 MEQ TABLET PO SCH (13:26)
--- NOTE | 2023-10-01 13:41 | Occupational Therapy Eval ---
OT Evaluation-General/PLF Medical Diagnosis Admission Date Sep 30, 2023 at 12:06 Medical Diagnosis: GI bleed, dizziness/syncope Onset Date: Sep 30, 2023 Therapy Diagnosis Therapy Diagnosis: decr activity natalie, weakness, decr funct mobility, decr UE strength Height/Weight Height (Feet): 5 Height (Inches): 5.00 Weight (Pounds): 202 Weight (Ounces): 1.0 Precautions Precautions/Isolations: Fall Prevention, Standard Precautions Referral Physician: Nano Referral Reason: Evaluation/Treatment Medical History Pertinent Medical History: Atrial Fib, Arthritis, CVA, GERD, HTN, PVD Additional Medical History Knee replacement. Asthma, sleep apnea. Pacemaker. DJD. renal artery stent, renal insufficiency. Current History Became dizzy at home and went to the floor. Required EMS to get her up. Pt reported resent blood in stools. EGD on 09-30 showing reflux esophagitis Reviewed History: Yes Social History Home: Single Level Current Living Status: Alone ADL-Prior Level of Function SCALE: Activities may be completed with or without assistive devices. 2-Fetucyqxsp-prqtapo completes the activity by him/herself with no assistance from a helper. 5-Set-up or Clean-up Assistance-helper sets up or cleans up; patient completes activity. [place] assists only prior to or following the activity. 4-Supervision or Touching Assistance-helper provides verbal cues and/or touching/steadying and/or contact guard assistance as patient completes activity. Assistance may be provided throughout the activity or intermittently. 3-Partial/Moderate Assistance-helper does LESS THAN HALF the effort. [place] lifts, holds or supports trunk or limbs, but provides less than half the effort. 2-Substantial/Maximal Assistance-helper does MORE THAN HALF the effort. [place] lifts or holds trunk or limbs and provides more than half the effort. 9-Pmwxlzqwn-lpuhru does ALL the effort. Patient does none of the effort to complete the activity. Or, the assistance of 2 or more helpers is required for the patient to complete the activity. If activity was not attempted, code reason: 7-Patient Refused. 9-Not Applicable-not attempted and the patient did not perform the activity before the current illness, exacerbation or injury. 10-Not Attempted due to Environmental Limitations-(lack of equipment, weather restraints, etc.). 88-Not Attempted due to Medical Conditions or Safety Concerns. ADL PLOF Comments Pt reported that she has been able to take care of all of her basic ADLs and also IADLs. She still drives and is very active, working out at a gym, playing violin in [place], taking swimming classes at the [employer], going to [place]. Her greatest concern is that she is only able to take about 10-15 steps at a time before she has to rest. Self Care: Independent Functional Cognition: Independent OT Current Status Subjective Pt seen in room, up in bed,agreeable to OT. No pain reported. Appearance Alert, cooperative Mental Status/Objective Patient Orientation: Person, Place, Time, Situation Attachments: Andersen Catheter Current Glasses/Contacts: Yes (reading) Hearing Aids: Yes Dentures/Partials: Yes (partial) Hand Dominance: Right Upper Extremity ROM Grossly WFL bilat Upper Extremity Coordination No problems reported Upper Extremity Sensation No problems reported Upper Extremity Strength Grossly 4/5 bilat ADL-Treatment ADL-Current Pt was able to feed herself lunch. She reported that she has not been up out of bed. Pt left up in bed, continuing lunch, all needs met Education OT Patient Education: Purpose of tx/functional activities, Rehab process Teaching Recipient: Patient Teaching Methods: Discussion Response to Teaching: Verbalize Understanding OT Pantograph Transferrer Goals Pantograph Transferrer Goals Time Frame: Oct 08, 2023 Eating (QC): 6 Oral Hygiene (QC): 6 Toileting Hygiene (QC): 6 Shower/Bathe Self (QC): 5 Upper Body Dressing (QC): 5 Lower Body Dressing (QC): 5 On/Off Footwear (QC): 5 Additional Goals: 1-Demonstrate ADL Tasks, 2-Verbalize Understanding, 3- ImproveStrength/Bruce 1=Demonstrate adherence to instructed precautions during ADL tasks. 2=Patient will verbalize/demonstrate understanding of assistive devices/modifications for ADL. 3=Patient will improve strength/tolerance for activity to enable patient to perform ADL's. OT Education/Plan Problem List/Assessment Assessment: Decreased Activ Tolerance, Dependent Transfers, Impaired Bed Mobility, Impaired Self-Care Skills Pt would benefit from skilled OT to increase her independence in basic self care and to decrease caregiver burden. Discharge Recommendations Plan/Recommendations: Continue POC Treatment Plan/Plan of Care Treatment,Training & Education: Yes Patient would benefit from OT for education, treatment and training to promote independence in ADL's, mobility, safety and/or upper extremity function for ADL's. Plan of Care: ADL Retraining, Functional Mobility, UE Funct Exercise/Act Treatment Duration: Oct 08, 2023 Frequency: 3 times per week (3-5 times a week) Estimated Hrs Per Day: .25 hour per day Agreement: Yes Rehab Potential: Good Time Start Time: 12:58 Stop Time: 13:15 DATE: Oct 01, 2023 Total Time Billed (hr/min): 17 Billed Treatment Time visit, OT evaluation moderate intensity 17 minutes ATA ALAN OT Oct 01, 2023 13:41
--- NOTE | 2023-10-01 14:25 | Physical Therapy Evaluation ---
PT Evaluation-General Medical Diagnosis Admission Date Sep 30, 2023 at 12:06 Medical Diagnosis: GI bleed, dizziness/syncope Onset Date: Sep 30, 2023 Therapy Diagnosis Therapy Diagnosis: generalized weakness/debility Height/Weight Height (Feet): 5 Height (Inches): 5.00 Weight (Pounds): 202 Weight (Ounces): 1.0 Precautions Precautions/Isolations: Fall Prevention, Standard Precautions Referral Physician: Nano Reason for Referral: Evaluation/Treatment Medical History Pertinent Medical History: Atrial Fib, Arthritis, CVA, GERD, HTN, PVD Current History EMS for lift assist due to weakness and increased dizziness Reviewed History: Yes Social History Home: Single Level Current Living Status: Alone Prior Prior Level of Function SCALE: Activities may be completed with or without assistive devices. 4-Tbwogxgles-rhaeimo completes the activity by him/herself with no assistance from a helper. 5-Set-up or Clean-up Assistance-helper sets up or cleans up; patient completes activity. [place] assists only prior to or following the activity. 4-Supervision or Touching Assistance-helper provides verbal cues and/or touching/steadying and/or contact guard assistance as patient completes activity. Assistance may be provided throughout the activity or intermittently. 3-Partial/Moderate Assistance-helper does LESS THAN HALF the effort. [place] lifts, holds or supports trunk or limbs, but provides less than half the effort. 2-Substantial/Maximal Assistance-helper does MORE THAN HALF the effort. [place] lifts or holds trunk or limbs and provides more than half the effort. 3-Fbgrmsfcm-cajagr does ALL the effort. Patient does none of the effort to complete the activity. Or, the assistance of 2 or more helpers is required for the patient to complete the activity. If activity was not attempted, code reason: 7-Patient Refused. 9-Not Applicable-not attempted and the patient did not perform the activity before the current illness, exacerbation or injury. 10-Not Attempted due to Environmental Limitations-(lack of equipment, weather restraints, etc.). 88-Not Attempted due to Medical Conditions or Safety Concerns. Bed Mobility: 6 Transfers (B,C,W/C): 6 Gait: 6 Stairs: 6 Indoor Mobility (Ambulation): Independent Stairs: Independent Prior Devices Use: None PT Evaluation-Current Subjective Patient agrees to PT. Objective Patient Orientation: Normal For Age Attachments: Andersen Catheter ROM/Strength ROM Lower Extremities bilateral LE WFL Strength Lower Extremities 4-/5 grossly bilateral LE all planes Integumentary/Posture Bladder Incontinence: Andersen Cath Posture WFL Neuromuscular (Tone, Coordination, Reflexes) grossly intact Sensory Vision: Functional Hearing: Functional Hand Dominance: Right Transfers Lying to Sitting/Side of Bed(Q: 6 Sit to Stand (QC): 4 Chair/Ccl-db-Qtifk Xfer(QC): 4 Gait Mode of Locomotion: Walk Anticipated Mode of Locomotion: Walk Walk 10 feet (QC): 4 Walk 50 ft with 2 Turns(QC): 4 Walk 150 ft (QC): 88 Distance: 50' Gait Assistive Device: FWW Comments/Gait Description slow, steady gait sequence Balance Sitting Static: Normal Sitting Dynamic: Normal Standing Static: Normal Standing Dynamic: Normal Assessment/Needs Patient will benefit from skilled PT to address functional strength and mobility to improve current LOF to safely return to home at maximum LOF. Rehab Potential: Fair PT Paving Stone Installer Goals [facility] Goals PT [facility] Goals Time Frame: Oct 10, 2023 Roll Left & Right (QC): 6 Sit to Lying (QC): 6 Lying-Sitting on Side/Bed(QC): 6 Sit to Stand (QC): 6 Chair/Iem-zk-Jnleb Xfer(QC): 6 Toilet Transfer (QC): 6 Walk 10 feet (QC): 6 Walk 50ft with 2 Turns (QC): 6 Walk 150 ft (QC): 6 PT Plan Problem List Problem List: Activity Tolerance Treatment/Plan Treatment Plan: Continue Plan of Care Treatment Plan: Education, Functional Activity Bruce, Functional Strength, Gait, Safety, Therapeutic Exercise, Transfers Treatment Duration: Oct 10, 2023 Frequency: 6 times per week Estimated Hrs Per Day: .25 hour per day Patient and/or Family Agrees t: Yes Time Time In: 1345 Time Out: 1402 DATE: Oct 01, 2023 Total Billed Treatment Time: 17 [facility] HERNANDEZ CAPELLAN PT Oct 01, 2023 14:25
--- NOTE | 2023-10-01 16:24 | Progress Note ---
Subjective Date Seen by a Provider: Oct 01, 2023 Time Seen by a Provider: 16:00 Subjective/Events-last exam doing better. no recent BM. Hb stable. tolerating diet. Objective Exam Vital Signs Date Time Temp Pulse Resp B/P (MAP) Pulse Ox O2 Delivery O2 Flow Rate FiO2 10/01/23 13:00 93 16 117/59 (78) 97 Room Air 10/01/23 12:38 62 10/01/23 12:00 63 19 104/54 (71) 96 Room Air 10/01/23 12:00 94 Room Air 10/01/23 11:53 34.9 10/01/23 11:00 61 20 104/49 (67) 96 Room Air 10/01/23 10:00 73 28 119/92 (101) 97 Room Air 10/01/23 09:00 67 24 105/49 (67) 98 Room Air 10/01/23 08:00 87 15 124/57 (79) 97 Room Air 10/01/23 07:55 36.5 10/01/23 07:48 97 Room Air 10/01/23 07:00 69 10/01/23 07:00 69 12 114/54 (74) 97 Room Air 10/01/23 06:00 77 17 114/65 (81) 96 Room Air 10/01/23 05:00 79 16 110/51 (70) 97 Room Air 10/01/23 04:00 82 18 108/57 (74) 95 Room Air 10/01/23 04:00 95 Room Air 10/01/23 03:00 77 22 99/53 (68) 96 Room Air 10/01/23 02:05 36.4 79 18 96/45 92 Room Air 10/01/23 02:00 75 19 98/65 (76) 93 Room Air 10/01/23 01:00 82 18 96/47 (63) 95 Room Air 10/01/23 01:00 84 10/01/23 00:28 36.7 89 16 117/57 97 Room Air 10/01/23 00:13 36.6 92 18 88/57 96 Room Air 10/01/23 00:00 36.7 10/01/23 00:00 81 20 117/59 (78) 98 Room Air 09/30/23 23:59 97 Room Air 09/30/23 23:19 36.5 65 16 100/47 97 Room Air 09/30/23 23:00 86 20 107/56 (73) 97 Room Air 09/30/23 22:13 36.7 86 18 115/63 98 Room Air 09/30/23 22:00 68 18 106/53 (70) 99 Room Air 09/30/23 21:58 36.2 80 16 117/49 98 Room Air 09/30/23 21:46 36.2 80 16 117/49 99 Room Air 09/30/23 21:00 64 19 117/49 (71) 99 Room Air 09/30/23 20:40 36.2 09/30/23 20:32 36.4 89 18 113/53 98 Room Air 09/30/23 20:17 36.1 82 16 114/50 100 Room Air 09/30/23 20:00 96 Room Air 09/30/23 20:00 87 31 113/69 (84) 100 Room Air 09/30/23 19:58 36.2 09/30/23 19:43 36.1 98 16 114/50 100 Room Air 09/30/23 19:00 89 21 114/50 (71) 99 Room Air 09/30/23 19:00 87 09/30/23 18:00 77 14 119/63 (81) 100 Room Air 09/30/23 17:58 36.4 92 18 119/63 99 Room Air 09/30/23 17:45 70 19 122/55 (77) 99 Room Air 09/30/23 17:40 36.4 97 17 114/56 100 Room Air 09/30/23 17:30 85 13 114/56 (75) 97 Room Air I & O 10/01/23 07:00 Intake Total 1511 ml Output Total 1350 ml Balance 161 ml Capillary Refill : Less Than 3 Seconds General Appearance: No Apparent Distress HEENT: PERRL/EOMI Neck: Full Range of Motion Respiratory: Chest Non Tender, Lungs Clear Cardiovascular: Regular Rate, Rhythm Gastrointestinal: normal bowel sounds, non tender, soft Extremity: Normal Capillary Refill Neurologic/Psychiatric: Alert, Oriented x3 Skin: Normal Color Lymphatic: No Adenopathy Results Lab Laboratory Tests 09/30/23 19:32: Hemoglobin 10.0#L, Hematocrit 30L 09/30/23 23:22: SARS-CoV-2 RNA (RT-PCR) Not Detected 11/8/23 23:35: Hemoglobin 7.4#L, Hematocrit 22L, Prothrombin Time 19.6H, INR Comment 1.6H 10/01/23 05:30: Hemoglobin 8.2L, Hematocrit 24L, Prothrombin Time 17.4H, INR Comment 1.4, White Blood Count 9.0, Red Blood Count 2.70L, Mean Corpuscular Volume 90, Mean Corpuscular Hemoglobin 30, Mean Corpuscular Hemoglobin Concent 34, Red Cell Distribution Width 19.2H, Platelet Count 144, Mean Platelet Volume 11.4, Immature Granulocyte % (Auto) 2, Neutrophils (%) (Auto) 71, Lymphocytes (%) (Auto) 11L, Monocytes (%) (Auto) 14H, Eosinophils (%) (Auto) 1, Basophils (%) (Auto) 0, Neutrophils # (Auto) 6.4, Lymphocytes # (Auto) 1.0, Monocytes # (Auto) 1.2H, Eosinophils # (Auto) 0.1, Basophils # (Auto) 0.0, Immature Granulocyte # (Auto) 0.2H, Sodium Level 138, Potassium Level 4.1, Chloride Level 109H, Carbon Dioxide Level 21, Anion Gap 8, Blood Urea Nitrogen 81H, Creatinine 1.20, Estimat Glomerular Filtration Rate 44, BUN/Creatinine Ratio 68, Glucose Level 92, Calcium Level 8.6, Corrected Calcium 9.2, Phosphorus Level 2.8, Magnesium Level 2.2, Total Bilirubin 1.8H, Aspartate Amino Transf (AST/SGOT) 20, Alanine Aminotransferase (ALT/SGPT) 16, Alkaline Phosphatase 59, Total Protein 5.1L, Albumin 3.3 Microbiology 09/30/23 MRSA Screen - Final, Complete MRSA not isolated Assessment/Plan Assessment/Plan Assess & Plan/Chief Complaint Upper GI bleed with supra therapeutic INR s/p EGD with gastritis, no active bleed. ambulate. cont PT. ok to start OAC per surg. PUD diet. Clinical Quality Measures DVT/VTE Risk/Contraindication: Contraindications-Pharm: Other *list below* Other: ADRIANO Cortés MD Oct 01, 2023 16:24
[2023-10-01 19:50] VITALS: BP 114/52
[2023-10-01] MEDS: LOSARTAN 50 MG TABLET PO SCH (20:12)
[2023-10-01] MEDS: PANTOPRAZOLE 40 MG TABLET PO SCH (20:13)
[2023-10-01] MEDS: carvediloL 12.5 MG TABLET PO SCH (20:13)
[2023-10-01] MEDS: MELATONIN 3 MG TABLET PO PRN (20:14)
[2023-10-01 23:24] VITALS: BP 97/55
[2023-10-02] VITALS (9 sets, daily range): BP systolic 99–123; BP diastolic 55–64
[2023-10-02 05:21] LABS: BASOPHILS % (AUTO) 1 % (0-10); EOSINOPHILS # (AUTO) 0.1 10^3/uL (0.0-0.3); EOSINOPHILS % (AUTO) 2 % (0-10); HEMATOCRIT 24 % (35-52); HEMOGLOBIN 7.8 g/dL (11.5-16.0); LYMPHOCYTES % (AUTO) 14 % (12-44); MEAN CORPUSCULAR HEMOGLOBIN 30 pg (25-34); MEAN CORPUSCULAR HGB CONC 33 g/dL (32-36); MEAN CORPUSCULAR VOLUME 93 fL (80-99); MEAN PLATELET VOLUME 10.6 fL (9.0-12.2); MONOCYTES # (AUTO) 1.1 10^3/uL (0.0-1.0); MONOCYTES % (AUTO) 16 % (0-12); NEUTROPHILS # (AUTO) 4.5 10^3/uL (1.8-7.8); NEUTROPHILS % (AUTO) 64 % (42-75); PLATELET COUNT 144 10^3/uL (130-400)
[2023-10-02 05:27] LABS: ALBUMIN 3.2 GM/DL (3.2-4.5)
[2023-10-02 05:29] LABS: CALCIUM 8.2 MG/DL (8.5-10.1)
[2023-10-02 05:30] LABS: TOTAL PROTEIN 4.9 GM/DL (6.4-8.2)
[2023-10-02 05:32] LABS: BILIRUBIN,TOTAL 1.1 MG/DL (0.1-1.0)
[2023-10-02 05:34] LABS: CREATININE SERUM 1.04 MG/DL (0.60-1.30)
[2023-10-02 05:37] LABS: MAGNESIUM 2.2 MG/DL (1.6-2.4)
[2023-10-02] MEDS: POTASSIUM CL 10MEQ/50ML IVPB 50 ML IV SCH (05:51)
[2023-10-02] MEDS: MAGNESIUM 1 GM/100 ML IVPB 100 ML IV SCH (05:52)
[2023-10-02] MEDS: POTASSIUM CHLORIDE 20 MEQ TABLET PO SCH (05:52)
[2023-10-02] MEDS: CYANOCOBALAMIN 1,000 MCG TABLET PO SCH (06:09)
--- NOTE | 2023-10-02 07:51 | Progress Note ---
CAPO YEPEZ 10/02/23 0751: Subjective Date Seen by a Provider: Oct 02, 2023 Subjective/Events-last exam Pt states that she is still feeling a bit fatigued and weak, but it is the same as yesterday. Last BM was last night around 8-9pm. Reports black, tarry stool that was "looser" than normal. She reports taking stool softeners. Pt has been drinking a lot of fluids and eating her meals. Starting this morning she has noticed her food getting "stuck" in her lower esophagus. When this occurs she is able to cough it up and drink water to stop the coughing. She attributes this due to her pancakes being very dry. She is reporting burping and reflux sensations after her breakfast. She has not had this stuck sensation in the past. She reports moving around the halls with her walker just fine. Review of Systems General: No Chills, No Night Sweats; Fatigue, Malaise HEENT: No Head Aches, No Visual Changes, No Ear Pain Pulmonary: No Cough Cardiovascular: No: Chest Pain, Palpitations Gastrointestinal: No: Nausea, Vomiting, Abdominal Pain, Diarrhea, Constipation Neurological: No: Numbness, Incoordination, Change in speech, Confusion Objective Exam Last Set of Vital Signs Vital Signs Date Time Temp Pulse Resp B/P (MAP) Pulse Ox O2 Delivery O2 Flow Rate FiO2 10/02/23 07:00 60 10/02/23 04:01 36.4 19 99/58 (72) 92 Room Air 09/30/23 16:10 4.00 Capillary Refill : Less Than 3 Seconds I&O Intake and Output 10/02/23 00:00 Intake Total 1540 ml Output Total 1750 ml Balance -210 ml Intake Oral 1040 ml IV Total 500 ml Output Urine Total 1750 ml # Bowel Movements 1 General: Alert, Oriented X3, Cooperative, No Acute Distress HEENT: PERRLA, EOMI Neck: No JVD Lungs: Clear to Auscultation, Normal Air Movement Heart: Regular Rate, No Murmurs Abdomen: Normal Bowel Sounds, Soft, No Tenderness Extremities: No Clubbing, No Cyanosis Neuro: Normal Speech, Strength at 5/5 X4 Ext, Sensation Intact, Cranial Nerves 3-12 NL Psych/Mental Status: Mental Status NL, Mood NL Results Lab Laboratory Tests 10/02/23 05:10: White Blood Count 7.0, Red Blood Count 2.57L, Hemoglobin 7.8L, Hematocrit 24L, Mean Corpuscular Volume 93, Mean Corpuscular Hemoglobin 30, Mean Corpuscular Hemoglobin Concent 33, Red Cell Distribution Width 19.9H, Platelet Count 144, Mean Platelet Volume 10.6, Immature Granulocyte % (Auto) 4, Neutrophils (%) (Auto) 64, Lymphocytes (%) (Auto) 14, Monocytes (%) (Auto) 16H, Eosinophils (%) (Auto) 2, Basophils (%) (Auto) 1, Neutrophils # (Auto) 4.5, Lymphocytes # (Auto) 1.0, Monocytes # (Auto) 1.1H, Eosinophils # (Auto) 0.1, Basophils # (Auto) 0.0, Immature Granulocyte # (Auto) 0.3H, Sodium Level 140, Potassium Level 4.0, Chloride Level 111H, Carbon Dioxide Level 21, Anion Gap 8, Blood Urea Nitrogen 49H, Creatinine 1.04, Estimat Glomerular Filtration Rate 52, BUN/Creatinine Ratio 47, Glucose Level 97, Calcium Level 8.2L, Corrected Calcium 8.8, Magnesium Level 2.2, Total Bilirubin 1.1H, Aspartate Amino Transf (AST/SGOT) 23, Alanine Aminotransferase (ALT/SGPT) 14, Alkaline Phosphatase 60, Total Protein 4.9L, Albumin 3.2 Microbiology 09/30/23 MRSA Screen - Final, Complete MRSA not isolated Assessment/Plan Assessment/Plan Assess & Plan/Chief Complaint Assessment: Syncope and weakness s/p Upper GI bleed Reflux Esophagitis Gastritis and Duodenitis A. fib HTN Hyperlipidemia Hypothyroidism Plan: Syncope and weakness s/p Upper GI bleed -Dr. James discussed with the pt the steps going forward regarding anti-coags -1 unit of blood will be administered due to the Hgb dropping to 7.8 -Pt will stay over the weekend and discuss d/c plans on Thursday if labs and status continues to improve Reflux Esophagitis -[place] grade B -continue PPIs Gastritis + Duodenitis -EGD performed on 09/30 found no red blood or active bleeding, only dark tarry old blood -small hiatal hernia was discovered A. fib -Scheduled for stress test as outpatient on October 09, 2023. HTN -continue to monitor Hyperlipidemia -continue current tx Hypothyroidism -continue current tx Clinical Quality Measures Admission Status Admission Dx Assessment: Symptomatic upper gastrointestinal bleeding A. fib HTN Hyperlipidemia Hypothyroidism GERD Plan: Symptomatic upper gastrointestinal bleeding -tx will PPIs and EGD will be performed if necessary -continue blood transfusion and monitor pt's status A. fib -continue to monitor and consult with cardiology -Scheduled for stress test as outpatient on October 09, 2023. -warfarin currently on hold HTN -continue to monitor Hyperlipidemia -continue current tx Hypothyroidism -continue current tx GERD -continue to monitor DVT/VTE Risk/Contraindication: Contraindications-Pharm: Other *list below* Other: DIAMOND Copeland DO 10/03/23 0626: Subjective Time Seen by a Provider: 11:00 Subjective/Events-last exam Doing well Hgb 7.8 so will give 1 more unit of blood Walking around fairly well Review of Systems General: Fatigue, Malaise Objective Exam General: Alert, Oriented X3, Cooperative, No Acute Distress Lungs: Clear to Auscultation, Normal Air Movement Heart: Regular Rate, Normal S1, Normal S2, No Murmurs Psych/Mental Status: Mental Status NL, Mood NL Assessment/Plan Assessment/Plan Assess & Plan/Chief Complaint Give 1 more unit of blood PT OT Hold until Thursday Supervisory-Addendum Brief Verification & Attestation Participated in pt care: history, MDM, physical Personally performed: exam, history, MDM, supervision of care Care discussed with: Medical Student Procedures: n/a Results interpretation: Verified all documentation Verification and Attestation of Medical Student E/M Service A medical student performed and documented this service in my presence. I reviewed and verified all information documented by the medical student and made modifications to such information, when appropriate. I personally performed the physical exam and medical decision making. Diamond Zambrano, Oct 03, 2023,06:26 CAPO YEPEZ Oct 02, 2023 07:51 DIAMOND ZAMBRANO DO Oct 03, 2023 06:26
[2023-10-02] MEDS: LOSARTAN 50 MG TABLET PO SCH ×2 (10:11→20:12)
[2023-10-02] MEDS: SENNOSIDES 8.6 MG TABLET PO SCH ×2 (10:11→20:11)
[2023-10-02] MEDS: carvediloL 12.5 MG TABLET PO SCH ×2 (10:11→20:12)
[2023-10-02] MEDS: SPIRONOLACTONE 25 MG TABLET PO SCH (10:11)
[2023-10-02] MEDS: LEVOTHYROXINE 50 MCG TABLET PO SCH (10:12)
[2023-10-02] MEDS: DOCUSATE SODIUM 100 MG CAPSULE PO SCH ×2 (10:12→20:13)
[2023-10-02] MEDS: ENOXAPARIN 100 MG/1 ML SYRINGE SC SCH (10:12)
[2023-10-02] MEDS: PANTOPRAZOLE 40 MG TABLET PO SCH ×2 (10:12→20:12)
--- NOTE | 2023-10-02 11:06 | Physical Therapy Daily Note ---
PT Daily Note-Current Subjective Patient agrees to PT. Pain Section J - Health Conditions 1. Rarely or not at all 2. Occasionally 3. Frequently 4. Almost constantly 8. Unable to answer Pain Effect on Sleep: 1 Pain Interference with Therapy: 1 Pain Interference w/Day-to-Day: 1 Transfers SCALE: Activities may be completed with or without assistive devices. 5-Pxoyrlbnel-drisywp completes the activity by him/herself with no assistance from a helper. 5-Set-up or Clean-up Assistance-helper sets up or cleans up; patient completes activity. [place] assists only prior to or following the activity. 4-Supervision or Touching Assistance-helper provides verbal cues and/or touching/steadying and/or contact guard assistance as patient completes activity. Assistance may be provided throughout the activity or intermittently. 3-Partial/Moderate Assistance-helper does LESS THAN HALF the effort. [place] lifts, holds or supports trunk or limbs, but provides less than half the effort. 2-Substantial/Maximal Assistance-helper does MORE THAN HALF the effort. [place] lifts or holds trunk or limbs and provides more than half the effort. 8-Khlsjzpmo-cyqbxn does ALL the effort. Patient does none of the effort to complete the activity. Or, the assistance of 2 or more helpers is required for the patient to complete the activity. If activity was not attempted, code reason: 7-Patient Refused. 9-Not Applicable-not attempted and the patient did not perform the activity before the current illness, exacerbation or injury. 10-Not Attempted due to Environmental Limitations-(lack of equipment, weather restraints, etc.). 88-Not Attempted due to Medical Conditions or Safety Concerns. Lying to Sitting/Side of Bed(Q: 6 Sit to Stand (QC): 4 Chair/Yao-cn-Qlbrg Xfer(QC): 4 Toilet Transfer (QC): 4 Gait Training Distance: 100' Walk 10 feet (QC): 4 Walk 50 ft with 2 Turns(QC): 4 Gait Assistive Device: FWW slow, steady gait sequence Assessment Patient improved with functional endurance with increase in ambulation distance with FWW. Patient highly motivated with progress. Continue to increase activity as tolerated by patient. PT [facility] Goals Tram Operator Goals PT [facility] Goals Time Frame: Oct 10, 2023 Roll Left & Right (QC): 6 Sit to Lying (QC): 6 Lying-Sitting on Side/Bed(QC): 6 Sit to Stand (QC): 6 Chair/Gqt-tr-Wtokc Xfer(QC): 6 Toilet Transfer (QC): 6 Walk 10 feet (QC): 6 Walk 50ft with 2 Turns (QC): 6 Walk 150 ft (QC): 6 PT Plan Treatment/Plan Treatment Plan: Continue Plan of Care Treatment Plan: Education, Functional Activity Bruce, Functional Strength, Gait, Safety, Therapeutic Exercise, Transfers Treatment Duration: Oct 10, 2023 Frequency: 6 times per week Estimated Hrs Per Day: .25 hour per day Patient and/or Family Agrees t: Yes Time Time In: 1044 Time Out: 1054 DATE: Oct 02, 2023 Total Billed Treatment Time: 10 Total Billed Treatment 1 visit FA 10 min HERNANDEZ CAPELLAN PT Oct 02, 2023 11:06
--- NOTE | 2023-10-02 11:27 | Occupational Ther Daily Note ---
OT Current Status-Daily Note Subjective Pt seen in room, up in bed, agreeable to OT. Appearance Alert, cooperative ADL-Treatment Pt reported that she had been up to toilet with SBA, FWW but still had Andersen catheter. Nursing removed Andersen. SUpine to sit EOB without assistance. Donned slipper socks with setup. Sit to stand SBA. Walked to bathroom and completed toilet transfer with SBA, tall toilet, grab bar, FWW. Managed toilet hygiene indep. Washed hands at sink after toileting with SBA, FWW. Care transferred to PT. Therapy Code Descriptions/Definitions Functional [place] Measure: 0=Not Assessed/NA 4=Minimal Assistance 1=Total Assistance 5=Supervision or Setup 2=Maximal Assistance 6=Modified [place] 3=Moderate Assistance 7=Complete IndependenceSCALE: Activities may be completed with or without assistive devices. 3-Dftjatothx-yueizyr completes the activity by him/herself with no assistance from a helper. 5-Set-up or Clean-up Assistance-helper sets up or cleans up; patient completes activity. [place] assists only prior to or following the activity. 4-Supervision or Touching Assistance-helper provides verbal cues and/or touching/steadying and/or contact guard assistance as patient completes activity. Assistance may be provided throughout the activity or intermittently. 3-Partial/Moderate Assistance-helper does LESS THAN HALF the effort. [place] lifts, holds or supports trunk or limbs, but provides less than half the effort. 2-Substantial/Maximal Assistance-helper does MORE THAN HALF the effort. [place] lifts or holds trunk or limbs and provides more than half the effort. 1-Nlyyvbuul-kiofks does ALL the effort. Patient does none of the effort to complete the activity. Or, the assistance of 2 or more helpers is required for the patient to complete the activity. If activity was not attempted, code reason: 7-Patient Refused. 9-Not Applicable-not attempted and the patient did not perform the activity before the current illness, exacerbation or injury. 10-Not Attempted due to Environmental Limitations-(lack of equipment, weather restraints, etc.). 88-Not Attempted due to Medical Conditions or Safety Concerns. Toileting Hygiene (QC): 6 Toilet Transfer (QC): 5 Education OT Patient Education: Purpose of tx/functional activities, Safety issues, Transfer techniques Teaching Recipient: Patient Teaching Methods: Discussion Response to Teaching: Return Demonstration OT Wine Specialist Goals Wine Specialist Goals Time Frame: Oct 08, 2023 Eating (QC): 6 Oral Hygiene (QC): 6 Toileting Hygiene (QC): 6 Shower/Bathe Self (QC): 5 Upper Body Dressing (QC): 5 Lower Body Dressing (QC): 5 On/Off Footwear (QC): 5 Additional Goals: 1-Demonstrate ADL Tasks, 2-Verbalize Understanding, 3- ImproveStrength/Bruce 1=Demonstrate adherence to instructed precautions during ADL tasks. 2=Patient will verbalize/demonstrate understanding of assistive devices/modifications for ADL. 3=Patient will improve strength/tolerance for activity to enable patient to perform ADL's. OT Education/Plan Problem List/Assessment Pt would benefit from skilled OT to increase her independence in basic self care and to decrease caregiver burden. Discharge Recommendations Plan/Recommendations: Continue POC Treatment Plan/Plan of Care Patient would benefit from OT for education, treatment and training to promote independence in ADL's, mobility, safety and/or upper extremity function for ADL's. Plan of Care: ADL Retraining, Functional Mobility, UE Funct Exercise/Act Treatment Duration: Oct 08, 2023 Frequency: 3 times per week (3-5 times a week) Estimated Hrs Per Day: .25 hour per day Agreement: Yes Rehab Potential: Fair Time Start Time: 10:20 Stop Time: 10:44 DATE: Oct 02, 2023 Total Time Billed (hr/min): 20 Billed Treatment Time visit, ADL 20 minutes ATA ALAN OT Oct 02, 2023 11:27
[2023-10-02] MEDS: POTASSIUM CHLORIDE 10 MEQ TABLET PO SCH (11:30)
[2023-10-02] MEDS: IRON SUCROSE 200 MG/10 ML VIAL IV SCH (13:24)
[2023-10-02] MEDS ORDERED: NS IV 500 ML 500 ML ONE (14:48)
[2023-10-02] MEDS: MELATONIN 3 MG TABLET PO PRN (20:12)
[2023-10-03] VITALS (7 sets, daily range): BP systolic 100–112; BP diastolic 51–64
[2023-10-03] MEDS: ENOXAPARIN 100 MG/1 ML SYRINGE SC SCH ×3 (00:47→20:35)
[2023-10-03] MEDS: CYANOCOBALAMIN 1,000 MCG TABLET PO SCH (05:51)
[2023-10-03 06:04] LABS: BASOPHILS % (AUTO) 1 % (0-10); EOSINOPHILS # (AUTO) 0.1 10^3/uL (0.0-0.3); EOSINOPHILS % (AUTO) 2 % (0-10); HEMATOCRIT 26 % (35-52); HEMOGLOBIN 8.7 g/dL (11.5-16.0); LYMPHOCYTES # (AUTO) 0.9 10^3/uL (1.0-4.0); LYMPHOCYTES % (AUTO) 13 % (12-44); MEAN CORPUSCULAR HEMOGLOBIN 31 pg (25-34); MEAN CORPUSCULAR HGB CONC 33 g/dL (32-36); MEAN CORPUSCULAR VOLUME 93 fL (80-99); MEAN PLATELET VOLUME 10.8 fL (9.0-12.2); MONOCYTES % (AUTO) 16 % (0-12); NEUTROPHILS # (AUTO) 4.2 10^3/uL (1.8-7.8); NEUTROPHILS % (AUTO) 64 % (42-75); PLATELET COUNT 144 10^3/uL (130-400); WHITE BLOOD COUNT 6.5 10^3/uL (4.3-11.0)
[2023-10-03 06:10] LABS: ALBUMIN 3.1 GM/DL (3.2-4.5); POTASSIUM 4.1 MMOL/L (3.6-5.0)
[2023-10-03 06:12] LABS: TOTAL PROTEIN 4.8 GM/DL (6.4-8.2)
[2023-10-03 06:14] LABS: BILIRUBIN,TOTAL 1.3 MG/DL (0.1-1.0)
[2023-10-03 06:16] LABS: CREATININE SERUM 0.93 MG/DL (0.60-1.30)
[2023-10-03] MEDS: POTASSIUM CL 10MEQ/50ML IVPB 50 ML IV SCH (06:18)
[2023-10-03 06:19] LABS: MAGNESIUM 2.1 MG/DL (1.6-2.4)
[2023-10-03] MEDS: POTASSIUM CHLORIDE 20 MEQ TABLET PO SCH (06:19)
[2023-10-03] MEDS: MAGNESIUM 1 GM/100 ML IVPB 100 ML IV SCH (06:20)
[2023-10-03] MEDS: PANTOPRAZOLE 40 MG TABLET PO SCH ×2 (08:28→20:35)
[2023-10-03] MEDS: SENNOSIDES 8.6 MG TABLET PO SCH ×2 (08:28→20:35)
[2023-10-03] MEDS: DOCUSATE SODIUM 100 MG CAPSULE PO SCH ×2 (08:28→20:34)
[2023-10-03] MEDS: SPIRONOLACTONE 25 MG TABLET PO SCH (08:28)
[2023-10-03] MEDS: LEVOTHYROXINE 50 MCG TABLET PO SCH (08:28)
[2023-10-03] MEDS: carvediloL 12.5 MG TABLET PO SCH ×2 (08:28→20:34)
[2023-10-03] MEDS: LOSARTAN 50 MG TABLET PO SCH ×2 (08:28→20:35)
--- NOTE | 2023-10-03 09:37 | Physical Therapy Daily Note ---
PT Daily Note-Current Subjective Pt. denies pain and agrees to PT. Pain Section J - Health Conditions 1. Rarely or not at all 2. Occasionally 3. Frequently 4. Almost constantly 8. Unable to answer Pain Effect on Sleep: 1 Pain Interference with Therapy: 1 Pain Interference w/Day-to-Day: 1 Mental Status Patient Orientation: Person, Place, Time, Situation Transfers SCALE: Activities may be completed with or without assistive devices. 5-Eddoujuuor-iwaqjpb completes the activity by him/herself with no assistance from a helper. 5-Set-up or Clean-up Assistance-helper sets up or cleans up; patient completes activity. [place] assists only prior to or following the activity. 4-Supervision or Touching Assistance-helper provides verbal cues and/or touching/steadying and/or contact guard assistance as patient completes activity. Assistance may be provided throughout the activity or intermittently. 3-Partial/Moderate Assistance-helper does LESS THAN HALF the effort. [place] lifts, holds or supports trunk or limbs, but provides less than half the effort. 2-Substantial/Maximal Assistance-helper does MORE THAN HALF the effort. [place] lifts or holds trunk or limbs and provides more than half the effort. 4-Wagcuqyvu-aeoeuk does ALL the effort. Patient does none of the effort to complete the activity. Or, the assistance of 2 or more helpers is required for the patient to complete the activity. If activity was not attempted, code reason: 7-Patient Refused. 9-Not Applicable-not attempted and the patient did not perform the activity before the current illness, exacerbation or injury. 10-Not Attempted due to Environmental Limitations-(lack of equipment, weather restraints, etc.). 88-Not Attempted due to Medical Conditions or Safety Concerns. Sit to Stand (QC): 6 Gait Training Does the Patient Walk?: Yes Distance: 100 ft Walk 50 ft with 2 Turns(QC): 4 Gait Assistive Device: FWW Exercises Seated Therapy Exercises: Ankle pumps, Long arc quads, Hip flexion, Hip abd/add, Glut set Seated Reps: 20 Treatments gait and leg exercises Assessment Current Status: Good Progress Pt. is slow but steady with ambulation, declines additional distance of walking and says "I will do that later." Pt. does well with seated exercises. Pt. up in chair with call light and all needs met. PT Fdc Goals Wound Care Specialist Goals PT Fdc Goals Time Frame: Oct 10, 2023 Roll Left & Right (QC): 6 Sit to Lying (QC): 6 Lying-Sitting on Side/Bed(QC): 6 Sit to Stand (QC): 6 Chair/Hlx-tc-Iqbnd Xfer(QC): 6 Toilet Transfer (QC): 6 Walk 10 feet (QC): 6 Walk 50ft with 2 Turns (QC): 6 Walk 150 ft (QC): 6 PT Plan Treatment/Plan Treatment Plan: Continue Plan of Care Treatment Plan: Education, Functional Activity Bruce, Functional Strength, Gait, Safety, Therapeutic Exercise, Transfers Treatment Duration: Oct 10, 2023 Frequency: 6 times per week Estimated Hrs Per Day: .25 hour per day Patient and/or Family Agrees t: Yes Time Time In: 925 Time Out: 936 DATE: Oct 03, 2023 Total Billed Treatment Time: 10 Total Billed Treatment 1, GT 11' BILL FLAHERTY PT Oct 03, 2023 09:37
[2023-10-03] MEDS: POTASSIUM CHLORIDE 10 MEQ TABLET PO SCH (12:15)
[2023-10-03] MEDS: RT-ALBUTEROL SULF 2.5 MG/3 ML PRE-MIX VIAL INH PRN (16:47)
--- NOTE | 2023-10-03 18:10 | Progress Note - Hospitalist ---
Subjective HPI/CC On Admission Date Seen by Provider: Oct 03, 2023 Time Seen by Provider: 11:00 Subjective/Events-last exam She is feeling ok. She is sitting in her chair. She has had some dark stools. She denies lightheadedness and dizziness. She denies pain. Her diagnosis and plan were discussed in depth with the patient and her sons at the bedside. Objective Exam Vital Signs Vital Signs Date Time Temp Pulse Resp B/P (MAP) Pulse Ox O2 Delivery O2 Flow Rate FiO2 10/03/23 16:48 98 Room Air 0.00 10/03/23 15:48 36.6 68 18 103/55 (71) 10/03/23 09:48 21 Capillary Refill : Less Than 3 Seconds General Appearance: No Apparent Distress, Obese Respiratory: Lungs Clear, No Respiratory Distress Cardiovascular: Regular Rate, Rhythm, No Murmur Gastrointestinal: Normal Bowel Sounds, Soft Extremity: Normal Inspection, No Pedal Edema Neurologic/Psychiatric: Alert, Normal Mood/Affect Results/Procedures Lab Laboratory Tests 10/03/23 05:50 Patient resulted labs reviewed. Assessment/Plan Assessment and Plan Assess & Plan/Chief Complaint Acute upper GI bleeding Acute blood loss anemia Supratherapeutic INR Esophagitis Gastritis Duodenitis Hiatal hernia Esophageal stricture AFib HTN HLD Hypothryoidism Obesity Debility Surgery following Hemoglobin stable s/p 4 units PRBC, 2 units FFP [place] diet PPI Cardiology following Therapeutic Lovenox PT/OT Diagnosis/Problems Diagnosis/Problems (1) Acute upper GI hemorrhage Status: Acute (2) ABLA (acute blood loss anemia) Status: Acute (3) Supratherapeutic INR Status: Acute (4) Esophagitis with gastritis Status: Acute (5) Duodenitis Status: Acute (6) Esophageal stricture Status: Acute (7) Hiatal hernia Status: Acute (8) Afib Status: Chronic (9) HTN (hypertension) Status: Chronic (10) HLD (hyperlipidemia) Status: Chronic (11) Obesity Status: Chronic (12) Debility Status: Acute (13) Advanced age Status: Chronic (14) Hypothyroidism Status: Chronic Clinical Quality Measures DVT/VTE Risk/Contraindication: Contraindications-Pharm: Other *list below* Other: FARHAN Lucas MD Oct 03, 2023 18:10
[2023-10-03] MEDS: MELATONIN 3 MG TABLET PO PRN (20:35)
[2023-10-04] VITALS (7 sets, daily range): BP systolic 83–122; BP diastolic 45–60
[2023-10-04] MEDS: CYANOCOBALAMIN 1,000 MCG TABLET PO SCH (05:52)
[2023-10-04 06:03] LABS: BASOPHILS % (AUTO) 1 % (0-10); EOSINOPHILS # (AUTO) 0.1 10^3/uL (0.0-0.3); EOSINOPHILS % (AUTO) 2 % (0-10); HEMATOCRIT 28 % (35-52); HEMOGLOBIN 9.1 g/dL (11.5-16.0); LYMPHOCYTES # (AUTO) 0.8 10^3/uL (1.0-4.0); LYMPHOCYTES % (AUTO) 14 % (12-44); MEAN CORPUSCULAR HEMOGLOBIN 31 pg (25-34); MEAN CORPUSCULAR HGB CONC 33 g/dL (32-36); MEAN CORPUSCULAR VOLUME 96 fL (80-99); MEAN PLATELET VOLUME 11.1 fL (9.0-12.2); MONOCYTES # (AUTO) 0.8 10^3/uL (0.0-1.0); MONOCYTES % (AUTO) 14 % (0-12); NEUTROPHILS # (AUTO) 3.9 10^3/uL (1.8-7.8); NEUTROPHILS % (AUTO) 66 % (42-75); PLATELET COUNT 150 10^3/uL (130-400); WHITE BLOOD COUNT 5.9 10^3/uL (4.3-11.0)
[2023-10-04 06:28] LABS: ALBUMIN 3.3 GM/DL (3.2-4.5)
[2023-10-04 06:29] LABS: POTASSIUM 4.3 MMOL/L (3.6-5.0)
[2023-10-04 06:30] LABS: CALCIUM 8.2 MG/DL (8.5-10.1)
[2023-10-04 06:31] LABS: TOTAL PROTEIN 5.1 GM/DL (6.4-8.2)
[2023-10-04 06:33] LABS: BILIRUBIN,TOTAL 1.4 MG/DL (0.1-1.0)
[2023-10-04 06:35] LABS: CREATININE SERUM 1.01 MG/DL (0.60-1.30)
[2023-10-04 06:37] LABS: MAGNESIUM 2.1 MG/DL (1.6-2.4)
[2023-10-04] MEDS: RT-ALBUTEROL SULF 2.5 MG/3 ML PRE-MIX VIAL INH PRN (07:26)
[2023-10-04] MEDS: POTASSIUM CL 10MEQ/50ML IVPB 50 ML IV SCH (07:56)
[2023-10-04] MEDS: MAGNESIUM 1 GM/100 ML IVPB 100 ML IV SCH (07:56)
[2023-10-04] MEDS: POTASSIUM CHLORIDE 20 MEQ TABLET PO SCH (07:57)
[2023-10-04] MEDS ORDERED: RT-ALBUTEROL SULF 2.5 MG/3 ML PRE-MIX VIAL INH PRN (08:00)
[2023-10-04] MEDS: SPIRONOLACTONE 25 MG TABLET PO SCH (08:18)
[2023-10-04] MEDS: DOCUSATE SODIUM 100 MG CAPSULE PO SCH ×2 (08:18→20:16)
[2023-10-04] MEDS: PANTOPRAZOLE 40 MG TABLET PO SCH ×2 (08:19→20:15)
[2023-10-04] MEDS: LEVOTHYROXINE 50 MCG TABLET PO SCH (08:19)
[2023-10-04] MEDS: IRON SUCROSE 200 MG/10 ML VIAL IV SCH (08:19)
[2023-10-04] MEDS: LOSARTAN 50 MG TABLET PO SCH ×2 (08:19→20:16)
[2023-10-04] MEDS: carvediloL 12.5 MG TABLET PO SCH ×2 (08:19→20:16)
[2023-10-04] MEDS: SENNOSIDES 8.6 MG TABLET PO SCH ×2 (08:19→20:15)
--- NOTE | 2023-10-04 11:13 | Cardiology Progress Note ---
Cardiology SOAP Progress Note Subjective: Still having dark stools. Objective: I&O/Vital Signs 10/03/23 10/04/23 10/04/23 10/04/23 23:35 01:00 04:00 07:00 Temp 36.0 36.7 Pulse 79 71 67 72 Resp 18 18 B/P (MAP) 100/64 (76) 98/48 (65) Pulse Ox 98 98 O2 Delivery Room Air Room Air O2 Flow Rate 0.00 0.00 10/04/23 10/04/23 10/04/23 10/04/23 07:21 07:25 07:26 07:31 Temp 36.2 36.7 Pulse 66 73 Resp 18 B/P (MAP) 118/60 (79) Pulse Ox 98 98 97 98 O2 Delivery Room Air Room Air Room Air O2 Flow Rate 0.00 0.00 10/04/23 09:00 O2 Delivery Room Air 10/04/23 00:00 Intake Total 1430 ml Output Total 1 ml Balance 1429 ml Weight (Pounds): 202 Weight (Ounces): 1.0 Weight (Calculated Kilograms): [id number] Constitutional: AAO x 3 Respiratory: No accessory muscle use, No respiratory distress; lungs clear to auscultation Cardiovascular: irregularly irregular Gastrointestional: soft Extremities: No pedal edema Neurologic/Psychiatric: no motor/sensory deficits, alert, normal mood/affect, oriented x 3 Skin: pallor Results/Procedures: Labs Laboratory Tests 10/04/23 05:24: White Blood Count 5.9, Red Blood Count 2.90L, Hemoglobin 9.1L, Hematocrit 28L, Mean Corpuscular Volume 96, Mean Corpuscular Hemoglobin 31, Mean Corpuscular Hemoglobin Concent 33, Red Cell Distribution Width 19.6H, Platelet Count 150, Mean Platelet Volume 11.1, Immature Granulocyte % (Auto) 4, Neutrophils (%) (Auto) 66, Lymphocytes (%) (Auto) 14, Monocytes (%) (Auto) 14H, Eosinophils (%) (Auto) 2, Basophils (%) (Auto) 1, Neutrophils # (Auto) 3.9, Lymphocytes # (Auto) 0.8L, Monocytes # (Auto) 0.8, Eosinophils # (Auto) 0.1, Basophils # (Auto) 0.0, Immature Granulocyte # (Auto) 0.2H, Sodium Level 134L, Potassium Level 4.3, Chloride Level 110H, Carbon Dioxide Level 19L, Anion Gap 5, Blood Urea Nitrogen 30H, Creatinine 1.01, Estimat Glomerular Filtration Rate 54, BUN/Creatinine Ratio 30, Glucose Level 96, Calcium Level 8.2L, Corrected Calcium 8.8, Magnesium Level 2.1, Total Bilirubin 1.4H, Aspartate Amino Transf (AST/SGOT) 25, Alanine Aminotransferase (ALT/SGPT) 18, Alkaline Phosphatase 74, Total Protein 5.1L, Albumin 3.3 Microbiology 09/30/23 MRSA Screen - Final, Complete MRSA not isolated A/P: Assessment/Dx: Active GI bleed Permanent afib tricuspid recurgitation HTn Plan: Acute and active GI bleed, receiving blood transfusion. Status post endoscopy with Dr. Hung showing old blood, duodenitis, gastritis. Management per medical services. Increased dyspnea on exertion, multifactorial. Had extensive work-up done in . Still having worsening dyspnea, likely exacerbated by anemia and known valvular heart disease Patient is reporting some increasing palpitation and pressure or discomfort on the right side of her chest. She has underlying moderate to severe mitral regu rgitation, moderate aortic stenosis. Scheduled for stress test as outpatient on October 09, 2023. Permanent atrial fibrillation, maintained on warfarin and beta-blockers. Warfarin currently on hold d/t GI bleed Maintained on carvedilol 25 mg twice daily Coumadin toxicity, INR is 5, received FFP and blood transfusion Currently INR 1.4 We will start Lovenox if okay with Dr. Hung Continue to monitor Overnight patient vomited blood therefore Lovenox has also been held. I discussed at length with the patient and family in presence of the nurse that due to lower GI and possible upper GI bleeding we will have to stop all blood thinners. Therefore there is risk of a stroke. The patient understands and agrees with the plan. As an outpatient, Watchman device may be considered. I will defer to Dr. James. Sinus node dysfunction, history of single-chamber pacemaker implant done in 2012. Pacemaker interrogation was done on September 03, 2023 showing good sensing and capture activity, ventricular paced 55%, no arrhythmia detected. Moderate to severe mitral regurgitation, moderate to severe tricuspid regurgitation, dyspnea, patient was referred to [facility] and visited with Dr. Soria and Dr. Espino in August 2020 for possible mitral valve clip Her YURIDIA at was suggested at least moderate mitral regurgitation, Right heart catheterization and left heart catheterization done at , recommendation for now was conservative management Most recent 2D echo was done in August 2023 with normal LV size, mild LVH, EF 55-60%, biatrial enlargement, moderate mitral regurgitation, moderate aortic stenosis with peak gradient 22 mmHg mean gradient 13 mmHg valve area 1.19 cm, severe tricuspid regurgitation, PA pressure 50 to 55 mmHg Coronary artery disease mild stable at this time. Underwent complete heart cath at in 2019. Continue to monitor, no changes are recommended Peripheral arterial disease, RAFAEL was done on August 05, 2023 and it was normal on the right of 1.10 with abnormal TBI of 0 0.52. RAFAEL on the left was mildly abnormal at 0.85 with TBI 0.72. Currently asymptomatic Has mild varicose vein. Continue to monitor, patient was reassured. Hypertension, continue to monitor. Hyperlipidemia, maintained on atorvastatin 40 mg daily History of anemia, recently started receiving iron transfusions. Gastroesophageal reflux disease RYAN, maintained on CPAP Mild bilateral carotid stenosis, underwent CTA head/neck in September 2022 showing nonobstructive disease. Hypothyroidism, managment per PCP Marcio HERRING MD Oct 04, 2023 11:12
[2023-10-04] MEDS: POTASSIUM CHLORIDE 10 MEQ TABLET PO SCH (11:38)
--- NOTE | 2023-10-04 17:48 | Progress Note - Hospitalist ---
Subjective HPI/CC On Admission Date Seen by Provider: Oct 04, 2023 Time Seen by Provider: 09:45 Subjective/Events-last exam She reports coughing up some blood overnight. She has no other complaints. She asks several questions about her diagnosis and plan of care and all were answered to her satisfaction. Objective Exam Vital Signs Vital Signs Date Time Temp Pulse Resp B/P (MAP) Pulse Ox O2 Delivery O2 Flow Rate FiO2 10/04/23 16:08 36.9 68 18 111/57 (75) 98 Room Air 10/04/23 07:26 0.00 10/03/23 09:48 21 Capillary Refill : Less Than 3 Seconds General Appearance: No Apparent Distress, Obese Respiratory: Lungs Clear, No Respiratory Distress Cardiovascular: No Murmur, Irregularly Irregular Gastrointestinal: Normal Bowel Sounds, Soft Extremity: Normal Inspection, No Pedal Edema Neurologic/Psychiatric: Alert, Normal Mood/Affect Skin: Normal Color, Warm/Dry Results/Procedures Lab Laboratory Tests 10/04/23 05:24 Patient resulted labs reviewed. Assessment/Plan Assessment and Plan Assess & Plan/Chief Complaint Acute upper GI bleeding Acute blood loss anemia Supratherapeutic INR, resolved Hemoptysis vs hematemesis Esophagitis Gastritis Duodenitis Hiatal hernia Esophageal stricture AFib HTN HLD Hypothryoidism Obesity Debility Surgery following Hemoglobin stable s/p 4 units PRBC, 2 units FFP PPI Cardiology following Hold Lovenox PT/OT Diagnosis/Problems Diagnosis/Problems (1) Acute upper GI hemorrhage Status: Acute (2) ABLA (acute blood loss anemia) Status: Acute (3) Supratherapeutic INR Status: Acute (4) Esophagitis with gastritis Status: Acute (5) Duodenitis Status: Acute (6) Esophageal stricture Status: Acute (7) Hiatal hernia Status: Acute (8) Afib Status: Chronic (9) HTN (hypertension) Status: Chronic (10) HLD (hyperlipidemia) Status: Chronic (11) Obesity Status: Chronic (12) Debility Status: Acute (13) Advanced age Status: Chronic (14) Hypothyroidism Status: Chronic Clinical Quality Measures DVT/VTE Risk/Contraindication: Contraindications-Pharm: Other *list below* Other: FARHAN Lucas MD Oct 04, 2023 17:47
[2023-10-04] MEDS: MELATONIN 3 MG TABLET PO PRN (20:15)
[2023-10-04] MEDS: RT-ALBUTEROL SULF 2.5 MG/3 ML PRE-MIX VIAL INH SCH (20:57)
[2023-10-05] VITALS (7 sets, daily range): BP systolic 91–121; BP diastolic 46–73
[2023-10-05 05:07] LABS: BASOPHILS % (AUTO) 0 % (0-10); EOSINOPHILS # (AUTO) 0.1 10^3/uL (0.0-0.3); EOSINOPHILS % (AUTO) 2 % (0-10); HEMATOCRIT 25 % (35-52); HEMOGLOBIN 8.3 g/dL (11.5-16.0); LYMPHOCYTES # (AUTO) 0.7 10^3/uL (1.0-4.0); LYMPHOCYTES % (AUTO) 13 % (12-44); MEAN CORPUSCULAR HEMOGLOBIN 32 pg (25-34); MEAN CORPUSCULAR HGB CONC 33 g/dL (32-36); MEAN CORPUSCULAR VOLUME 96 fL (80-99); MEAN PLATELET VOLUME 10.8 fL (9.0-12.2); MONOCYTES # (AUTO) 0.8 10^3/uL (0.0-1.0); MONOCYTES % (AUTO) 15 % (0-12); NEUTROPHILS # (AUTO) 3.8 10^3/uL (1.8-7.8); NEUTROPHILS % (AUTO) 68 % (42-75); PLATELET COUNT 144 10^3/uL (130-400); WHITE BLOOD COUNT 5.6 10^3/uL (4.3-11.0)
[2023-10-05 05:17] LABS: ALBUMIN 3.1 GM/DL (3.2-4.5); POTASSIUM 4.4 MMOL/L (3.6-5.0)
[2023-10-05 05:18] LABS: CALCIUM 7.9 MG/DL (8.5-10.1)
[2023-10-05 05:19] LABS: TOTAL PROTEIN 4.8 GM/DL (6.4-8.2)
[2023-10-05 05:23] LABS: CREATININE SERUM 0.95 MG/DL (0.60-1.30)
[2023-10-05] MEDS: MAGNESIUM 1 GM/100 ML IVPB 100 ML IV SCH (05:27)
[2023-10-05] MEDS: POTASSIUM CL 10MEQ/50ML IVPB 50 ML IV SCH (05:27)
[2023-10-05] MEDS: POTASSIUM CHLORIDE 20 MEQ TABLET PO SCH (05:27)
--- NOTE | 2023-10-05 07:51 | Physician Query-Final Dx ---
KRISTIN QUINTEROS 10/05/23 0751: Final Diagnosis Give Final Diagnosis Please give Final Diagnosis The medical record reflects the following clinical evidence: Clinical Indicators: INR on admission 5.0 has decreased to 1.4, Hgb 7.5 on admission, EGD findings: Reflux esophagitis, esophageal stricture, HH, "old dark blood within the stomach" no active bleeding identified, with gastritis and duodenitis. Risk Factor(s): presented to the ED this morning with generalized weakness and lightheadedness, for last week, Supratherapeutic INR due to coumadin (extrinsic anticoagulation) with Upper GI bleed Treatment: "Reverse INR with FFP and Vit K" Received 2 units FFP and 4 units PRBC's, Phytonadione 10 IV, surgery consult/EGD Hemorrhagic disorder d/t extrinsic circulating anticoagulants, present on admission Other explanation of clinical findings Unable to determine (no explanation for clinical findings) Please clarify and document your clinical opinion in the progress notes and discharge summary including the definitive and/or presumptive diagnosis, (suspected or probable), related to the above clinical findings. Please include clinical findings supporting your diagnosis. Kristin Quinteros, MSN, RN Clinical Automotive Service Professional [phone] [email or web address] PARVEEN ZAMBRANO DO 10/07/23 1134: Final Diagnosis Give Final Diagnosis Hemorrhagic disorder d/t extrinsic circulating anticoagulants, present on admission KRISTIN QUINTEROS Oct 05, 2023 07:51 PARVEEN ZAMBRANO DO Oct 07, 2023 11:34
[2023-10-05] MEDS: PANTOPRAZOLE 40 MG TABLET PO SCH ×2 (08:58→20:20)
[2023-10-05] MEDS: LOSARTAN 50 MG TABLET PO SCH (08:58)
[2023-10-05] MEDS: SPIRONOLACTONE 25 MG TABLET PO SCH (08:58)
[2023-10-05] MEDS: DOCUSATE SODIUM 100 MG CAPSULE PO SCH ×2 (08:59→20:20)
[2023-10-05] MEDS: CYANOCOBALAMIN 1,000 MCG TABLET PO SCH (08:59)
[2023-10-05] MEDS: carvediloL 12.5 MG TABLET PO SCH ×2 (08:59→20:20)
[2023-10-05] MEDS: SENNOSIDES 8.6 MG TABLET PO SCH ×2 (08:59→20:20)
[2023-10-05] MEDS: LEVOTHYROXINE 50 MCG TABLET PO SCH (09:01)
[2023-10-05] MEDS: RT-ALBUTEROL SULF 2.5 MG/3 ML PRE-MIX VIAL INH SCH ×2 (09:30→18:53)
--- NOTE | 2023-10-05 09:32 | Cardiology Progress Note ---
Subjective Date Seen by Provider: Oct 05, 2023 Time Seen by Provider: 08:25 Subjective/Events-last exam Patient is sitting up in bed, reporting improvement. Objective-Cardiology Exam Last Set of Vital Signs Vital Signs 10/03/23 10/05/23 10/05/23 09:48 07:08 08:30 Temp 36.8 Pulse 88 Resp 16 B/P (MAP) 99/51 (67) Pulse Ox 97 O2 Delivery Room Air O2 Flow Rate 0.00 FiO2 21 I&O Intake and Output 10/04/23 23:59 Intake Total 2220 ml Balance 2220 ml Intake Oral 2220 ml # Voids 10 # Bowel Movements 1 General: Alert, Oriented X3, Cooperative, No Acute Distress HEENT: PERRLA, EOMI Neck: No JVD Lungs: Clear to Auscultation, Normal Air Movement Heart: Regular Rate, Normal S1, Normal S2, No Murmurs Abdomen: Normal Bowel Sounds, Soft, No Tenderness Extremities: No Clubbing, No Cyanosis Skin: No Rashes, No Breakdown, No Significant Lesion Neuro: Normal Speech, Strength at 5/5 X4 Ext, Sensation Intact, Cranial Nerves 3-12 NL Psych/Mental Status: Mental Status NL, Mood NL Results Lab Laboratory Tests 10/05/23 04:45 A/P-Cardiology Admission Diagnosis GI bleed Chronic afib tricuspid recurgitation HTn Assessment/Plan Acute GI bleed, s/p blood transfusion. Reporting blood in sputum yesterday, better today Status post endoscopy with Dr. Hung showing old blood, duodenitis, gastritis. Patient had another hemoptysis, oral anticoagulation was held. Discussed the possibility of Watchman as an outpatient once she can tolerate an ticoagulation for at least 3 months Increased dyspnea on exertion, multifactorial. Had extensive work-up done in 2019. Reporting some improvement. Patient is reporting some increasing palpitation and pressure or discomfort on the right side of her chest. She has underlying moderate to severe mitral regurgitation, moderate aortic stenosis. Scheduled for stress test as outpatient on October 09, 2023. Chronic atrial fibrillation, maintained on warfarin and beta-blockers. Warfarin discontinued d/t GI bleed Heart rate is controlled. Had another hemoptysis, Lovenox was discontinued. Coumadin toxicity, INR is 5, received FFP and blood transfusion Currently INR 1.4 Continue to monitor Sinus node dysfunction, history of single-chamber pacemaker implant done in 2012. Pacemaker interrogation was done on September 03, 2023 showing good sensing and capture activity, ventricular paced 55%, no arrhythmia detected. Moderate to severe mitral regurgitation, moderate to severe tricuspid regurgitation, dyspnea, patient was referred to and visited with Dr. Soria and Dr. Espino in August 2020 for possible mitral valve clip Her YURIDIA at was suggested at least moderate mitral regurgitation, Right heart catheterization and left heart catheterization done at , r ecommendation for now was conservative management Most recent 2D echo was done in August 2023 with normal LV size, mild LVH, EF 55-60%, biatrial enlargement, moderate mitral regurgitation, moderate aortic stenosis with peak gradient 22 mmHg mean gradient 13 mmHg valve area 1.19 cm, severe tricuspid regurgitation, PA pressure 50 to 55 mmHg Coronary artery disease mild stable at this time. Underwent complete heart cath at in 2019. Continue to monitor, no changes are recommended Peripheral arterial disease, RAFAEL was done on August 05, 2023 and it was normal on the right of 1.10 with abnormal TBI of 0 0.52. RAFAEL on the left was mildly abnormal at 0.85 with TBI 0.72. Currently asymptomatic Has mild varicose vein. Continue to monitor, patient was reassured. Hypertension, blood pressure is controlled Improved after decreasing Coreg and losartan Continue to monitor Hyperlipidemia, maintained on atorvastatin 40 mg daily History of anemia, recently started receiving iron transfusions. Gastroesophageal reflux disease RYAN, maintained on CPAP Mild bilateral carotid stenosis, underwent CTA head/neck in September 2022 showing nonobstructive disease. Hypothyroidism, managment per PCP Supervisory-Addendum Brief Supervisory Addendum Participated in pt care: history, MDM, physical Personally performed: exam, history, MDM Care discussed with: STELLA Results interpretation: Verified all documentation Notes: Patient was seen and evaluated with Mary Kate, examination performed, management plan was discussed, agree with the current scribed note, I made few changes to the note using Italic font Patient was seen at bedside, sitting comfortably, no new complain Had hemoptysis subsequently Lovenox was discontinued Discussed the possibility of Watchman as an outpatient Changing losartan and Coreg doses and monitoring blood pressure MARY KATE ERIC PA-C Oct 05, 2023 09:32 APOORVA LIMA MD Oct 05, 2023 11:05
--- NOTE | 2023-10-05 09:48 | Physical Therapy Daily Note ---
PT Daily Note-Current Subjective Patient agrees to therapy. She reports she is ambulating in hallway multiple times a day. Pain Section J - Health Conditions 1. Rarely or not at all 2. Occasionally 3. Frequently 4. Almost constantly 8. Unable to answer Pain Effect on Sleep: 1 Pain Interference with Therapy: 1 Pain Interference w/Day-to-Day: 1 Transfers SCALE: Activities may be completed with or without assistive devices. 1-Nfjnsjfidm-nolonbg completes the activity by him/herself with no assistance from a helper. 5-Set-up or Clean-up Assistance-helper sets up or cleans up; patient completes activity. [place] assists only prior to or following the activity. 4-Supervision or Touching Assistance-helper provides verbal cues and/or touching/steadying and/or contact guard assistance as patient completes activity. Assistance may be provided throughout the activity or intermittently. 3-Partial/Moderate Assistance-helper does LESS THAN HALF the effort. [place] lifts, holds or supports trunk or limbs, but provides less than half the effort. 2-Substantial/Maximal Assistance-helper does MORE THAN HALF the effort. [place] lifts or holds trunk or limbs and provides more than half the effort. 8-Ltfzxcyem-krrrav does ALL the effort. Patient does none of the effort to complete the activity. Or, the assistance of 2 or more helpers is required for the patient to complete the activity. If activity was not attempted, code reason: 7-Patient Refused. 9-Not Applicable-not attempted and the patient did not perform the activity before the current illness, exacerbation or injury. 10-Not Attempted due to Environmental Limitations-(lack of equipment, weather restraints, etc.). 88-Not Attempted due to Medical Conditions or Safety Concerns. Lying to Sitting/Side of Bed(Q: 6 Sit to Stand (QC): 6 Chair/Aer-nu-Zjhkc Xfer(QC): 6 Gait Training Distance: 250' Walk 10 feet (QC): 6 Walk 50 ft with 2 Turns(QC): 6 Walk 150 ft (QC): 6 Gait Assistive Device: FWW safe and functional with no deviation. Assessment Patient is currently at independent LOF with all gross motor skills safely. PT to dismiss patient from services at this time. PT Relations Coordinator Goals Relations Coordinator Goals PT Long-Term Goals Time Frame: Oct 10, 2023 Roll Left & Right (QC): 6 Sit to Lying (QC): 6 Lying-Sitting on Side/Bed(QC): 6 Sit to Stand (QC): 6 Chair/Gss-qr-Ydvvn Xfer(QC): 6 Toilet Transfer (QC): 6 Walk 10 feet (QC): 6 Walk 50ft with 2 Turns (QC): 6 Walk 150 ft (QC): 6 PT Plan Treatment/Plan Treatment Plan: Discontinue PT, goals met Treatment Plan: Education, Functional Activity Bruce, Functional Strength, Gait, Safety, Therapeutic Exercise, Transfers Treatment Duration: Oct 10, 2023 Frequency: 6 times per week Estimated Hrs Per Day: .25 hour per day Patient and/or Family Agrees t: Yes Time Time In: 841 Time Out: 854 DATE: Oct 05, 2023 Total Billed Treatment Time: 13 Total Billed Treatment 1 visit FA 13 min HERNANDEZ CAPELLAN PT Oct 05, 2023 09:48
--- NOTE | 2023-10-05 10:00 | Occupational Ther Daily Note ---
OT Current Status-Daily Note Subjective Sitting up in bed, agreeable to participate in therapy Mental Status/Objective Patient Orientation: Person, Place, Time, Situation ADL-Treatment standing grooming ADLs w/ FWW Therapy Code Descriptions/Definitions Functional [place] Measure: 0=Not Assessed/NA 4=Minimal Assistance 1=Total Assistance 5=Supervision or Setup 2=Maximal Assistance 6=Modified [place] 3=Moderate Assistance 7=Complete IndependenceSCALE: Activities may be completed with or without assistive devices. 0-Abhrfdxost-tcilwfd completes the activity by him/herself with no assistance from a helper. 5-Set-up or Clean-up Assistance-helper sets up or cleans up; patient completes activity. [place] assists only prior to or following the activity. 4-Supervision or Touching Assistance-helper provides verbal cues and/or touching/steadying and/or contact guard assistance as patient completes activity. Assistance may be provided throughout the activity or intermittently. 3-Partial/Moderate Assistance-helper does LESS THAN HALF the effort. [place] lifts, holds or supports trunk or limbs, but provides less than half the effort. 2-Substantial/Maximal Assistance-helper does MORE THAN HALF the effort. [place] lifts or holds trunk or limbs and provides more than half the effort. 0-Wysiqfkfh-kkxnhw does ALL the effort. Patient does none of the effort to complete the activity. Or, the assistance of 2 or more helpers is required for the patient to complete the activity. If activity was not attempted, code reason: 7-Patient Refused. 9-Not Applicable-not attempted and the patient did not perform the activity before the current illness, exacerbation or injury. 10-Not Attempted due to Environmental Limitations-(lack of equipment, weather restraints, etc.). 88-Not Attempted due to Medical Conditions or Safety Concerns. Eating (QC): 6 Oral Hygiene (QC): 5 Education OT Patient Education: Modified ADL techniques, Progress toward Goal/Update tx plan, Purpose of tx/functional activities, Reviewed precautions, Rehab process, Safety issues, Transfer techniques Teaching Recipient: Patient Teaching Methods: Discussion Response to Teaching: Return Demonstration OT Assistant Professor Sculpture Goals Assistant Professor Sculpture Goals Time Frame: Oct 08, 2023 Eating (QC): 6 Oral Hygiene (QC): 6 Toileting Hygiene (QC): 6 Shower/Bathe Self (QC): 5 Upper Body Dressing (QC): 5 Lower Body Dressing (QC): 5 On/Off Footwear (QC): 5 Additional Goals: 1-Demonstrate ADL Tasks, 2-Verbalize Understanding, 3-ImproveStrength/[place] 1=Demonstrate adherence to instructed precautions during ADL tasks. 2=Patient will verbalize/demonstrate understanding of assistive devices/modifications for ADL. 3=Patient will improve strength/tolerance for activity to enable patient to perform ADL's. OT Education/Plan Problem List/Assessment Assessment: Decreased Activ Tolerance Pt would benefit from skilled OT to increase her independence in basic self care and to decrease caregiver burden. Discharge Recommendations Plan/Recommendations: Continue POC Treatment Plan/Plan of Care Treatment,Training & Education: Yes Patient would benefit from OT for education, treatment and training to promote independence in ADL's, mobility, safety and/or upper extremity function for ADL's. Plan of Care: ADL Retraining, Functional Mobility, UE Funct Exercise/Act Treatment Duration: Oct 08, 2023 Frequency: 3 times per week (3-5 times a week) Estimated Hrs Per Day: .25 hour per day Agreement: Yes Rehab Potential: Fair Time Start Time: 08:42 Stop Time: 08:55 DATE: Oct 05, 2023 Total Time Billed (hr/min): 13 Billed Treatment Time ADL 13 min RADHA RODRIGUEZ OT Oct 05, 2023 10:00
[2023-10-05] MEDS ORDERED: PANT40TA52 PO ×2 (10:26)
[2023-10-05] MEDS ORDERED: CYAN-41 PO ×2 (10:26)
--- NOTE | 2023-10-05 10:27 | D/C HH Face to Face Order ---
D/C Face to Face Orders Reconcile Patient Problems Problems Reviewed?: Yes Instructions for Patient Via [facility] [place], Patient Instructions/FollowUp: PCP 1 week Physician to follow Patient: Wayne Discharge Diet for Home: No Restrictions Patient Problems: GIB Anemia Patient Data-Allergies,Ht & Wt Patient Allergies: Coded Allergies: lisinopril (Verified Allergy, Unknown, 09/30/23) Sulfa (Sulfonamide Antibiotics) (Unverified Adverse Reaction, Unknown, 11/02/19) morphine (Verified Adverse Reaction, Unknown, 04/30/19) Hallucinations Height (Feet): 5 Height (Inches): 5.00 Weight (Pounds): 202 Weight (Ounces): 1.0 Home Health Need/Face to Face Date of Face to Face: Oct 05, 2023 Clinical Findings: Generalized weakness and fatigue, Instability, Muscle weakness I have seen Pt [id number]: Yes Discharged To: Home Diagnosis/Conditions: GIB Patient is Homebound due to: [place] fall risk due to instabilty, Muscle weakness Homebound Status Due to the above stated illness, injury or surgical procedure (medical condition or diagnosis) and associated clinical findings, the patient is homebound because of his/her inability to leave home except with aid of a supportive device and/or person AND leaving the home requires a considerable and taxing effort or is medically contraindicated. Pt req the following assistanc: Walker Home Health Nursing Orders Home Health Services Order: Nursing Services, Feed Elevator Worker-Evaluate & Treat, Physical Therapy-Evaluate & Treat Home Health Infusion Therapy Line Start Date: Sep 30, 2023 Certify Stmt I certify that this patient is under my care and that I, a nurse practitioner or a physician; a accounting manager assistant controller working with me, had a face to face encounter that - meets the physician face to face encounter requirements with this patient as dated. PARVEEN ZAMBRANO DO Oct 05, 2023 10:27
--- NOTE | 2023-10-05 10:28 | Discharge Summary ---
Diagnosis/Chief Complaint Date of Admission Sep 30, 2023 at 12:06 Date of Discharge Discharge Date: Oct 05, 2023 Reason Hospital Visit CC: Severe anemia with presumed GIB HPI: This is an [id number] clinic patient of Dr Black who was recently diagnosed with anemia iron deficiency who received iron infusion for the first time yesterday who presented to the ER with weakness and near syncope and was found to have anemia and elevated BUN presumed to be from blood in the gut. Cardiology consulted for valvular disease and Dr Hung for scopes. Discharge Summary Discharge Physical Examination Allergies: Coded Allergies: lisinopril (Verified Allergy, Unknown, 09/30/23) Sulfa (Sulfonamide Antibiotics) (Unverified Adverse Reaction, Unknown, 11/02/19) morphine (Verified Adverse Reaction, Unknown, 04/30/19) Hallucinations Vitals & I&Os Vital Signs Date Time Temp Pulse Resp B/P (MAP) Pulse Ox O2 Delivery O2 Flow Rate FiO2 10/05/23 12:59 69 10/05/23 11:14 36.5 16 91/54 (66) 97 Room Air 10/05/23 08:30 0.00 10/03/23 09:48 21 Hospital Course Labs (last 24 hrs) Laboratory Tests 09/30/23 09:00: White Blood Count 10.1, Red Blood Count 2.32L, Hemoglobin 7.5L, Hematocrit 23L, Mean Corpuscular Volume 99, Mean Corpuscular Hemoglobin 32, Mean Corpuscular Hemoglobin Concent 33, Red Cell Distribution Width 16.6H, Platelet Count 204, Mean Platelet Volume 11.4, Immature Granulocyte % (Auto) 1, Neutrophils (%) (Auto) 82H, Lymphocytes (%) (Auto) 8L, Monocytes (%) (Auto) 8, Eosinophils (%) (Auto) 1, Basophils (%) (Auto) 0, Neutrophils # (Auto) 8.3H, Lymphocytes # (Auto) 0.8L, Monocytes # (Auto) 0.8, Eosinophils # (Auto) 0.1, Basophils # (Auto) 0.0, Immature Granulocyte # (Auto) 0.1, Prothrombin Time 48.6*H, INR Comment 5.0H, Activated Partial Thromboplast Time 36H, Sodium Level 134L, Potassium Level 4.4, Chloride Level 104, Carbon Dioxide Level 19L, Anion Gap 11, Blood Urea Nitrogen 113*H, Creatinine 1.40H, Estimat Glomerular Filtration Rate 36, BUN/Creatinine Ratio 81, Glucose Level 161H, Calcium Level 9.9, Corrected Calcium 10.1, Magnesium Level 2.4, Total Bilirubin 1.0, Aspartate Amino Transf (AST/SGOT) 19, Alanine Aminotransferase (ALT/SGPT) 18, Alkaline Phosphatase 67, Troponin I < 0.028, B-Type Natriuretic Peptide 94.4, Total Protein 5.9L, Albumin 3.8, Vitamin B12 Level 496, Thyroid Stimulating Hormone (TSH) 3.88 09/30/23 19:32: Hemoglobin 10.0#L, Hematocrit 30L 09/30/23 23:22: SARS-CoV-2 RNA (RT-PCR) Not Detected 09/30/23 23:35: Hemoglobin 7.4#L, Hematocrit 22L, Prothrombin Time 19.6H, INR Comment 1.6H 10/01/23 05:30: White Blood Count 9.0, Red Blood Count 2.70L, Hemoglobin 8.2L, Hematocrit 24L, Mean Corpuscular Volume 90, Mean Corpuscular Hemoglobin 30, Mean Corpuscular Hemoglobin Concent 34, Red Cell Distribution Width 19.2H, Platelet Count 144, Mean Platelet Volume 11.4, Immature Granulocyte % (Auto) 2, Neutrophils (%) (Auto) 71, Lymphocytes (%) (Auto) 11L, Monocytes (%) (Auto) 14H, Eosinophils (%) (Auto) 1, Basophils (%) (Auto) 0, Neutrophils # (Auto) 6.4, Lymphocytes # (Auto) 1.0, Monocytes # (Auto) 1.2H, Eosinophils # (Auto) 0.1, Basophils # (Auto) 0.0, Immature Granulocyte # (Auto) 0.2H, Prothrombin Time 17.4H, INR Comment 1.4, Sod ium Level 138, Potassium Level 4.1, Chloride Level 109H, Carbon Dioxide Level 21, Anion Gap 8, Blood Urea Nitrogen 81H, Creatinine 1.20, Estimat Glomerular Filtration Rate 44, BUN/Creatinine Ratio 68, Glucose Level 92, Calcium Level 8.6, Corrected Calcium 9.2, Phosphorus Level 2.8, Magnesium Level 2.2, Total Bilirubin 1.8H, Aspartate Amino Transf (AST/SGOT) 20, Alanine Aminotransferase (ALT/SGPT) 16, Alkaline Phosphatase 59, Total Protein 5.1L, Albumin 3.3 10/02/23 05:10: White Blood Count 7.0, Red Blood Count 2.57L, Hemoglobin 7.8L, Hematocrit 24L, Mean Corpuscular Volume 93, Mean Corpuscular Hemoglobin 30, Mean Corpuscular Hemoglobin Concent 33, Red Cell Distribution Width 19.9H, Platelet Count 144, Mean Platelet Volume 10.6, Immature Granulocyte % (Auto) 4, Neutrophils (%) (Auto) 64, Lymphocytes (%) (Auto) 14, Monocytes (%) (Auto) 16H, Eosinophils (%) (Auto) 2, Basophils (%) (Auto) 1, Neutrophils # (Auto) 4.5, Lymphocytes # (Auto) 1.0, Monocytes # (Auto) 1.1H, Eosinophils # (Auto) 0.1, Basophils # (Auto) 0.0, Immature Granulocyte # (Auto) 0.3H, Sodium Level 140, Potassium Level 4.0, Chloride Level 111H, Carbon Dioxide Level 21, Anion Gap 8, Blood Urea Nitrogen 49H, Creatinine 1.04, Estimat Glomerular Filtration Rate 52, BUN/Creatinine Ratio 47, Glucose Level 97, Calcium Level 8.2L, Corrected Calcium 8.8, Magnesium Level 2.2, Total Bilirubin 1.1H, Aspartate Amino Transf (AST/SGOT) 23, Alanine Aminotransferase (ALT/SGPT) 14, Alkaline Phosphatase 60, Total Protein 4.9L, Albumin 3.2 10/03/23 05:50: White Blood Count 6.5, Red Blood Count 2.82L, Hemoglobin 8.7L, Hematocrit 26L, Mean Corpuscular Volume 93, Mean Corpuscular Hemoglobin 31, Mean Corpuscular Hemoglobin Concent 33, Red Cell Distribution Width 18.8H, Platelet Count 144, Mean Platelet Volume 10.8, Immature Granulocyte % (Auto) 4, Neutrophils (%) (Auto) 64, Lymphocytes (%) (Auto) 13, Monocytes (%) (Auto) 16H, Eosinophils (%) (Auto) 2, Basophils (%) (Auto) 1, Neutrophils # (Auto) 4.2, Lymphocytes # (Auto) 0.9L, Monocytes # (Auto) 1.0, Eosinophils # (Auto) 0.1, Basophils # (Auto) 0.0, Immature Granulocyte # (Auto) 0.3H, Sodium Level 136, Potassium Level 4.1, C hloride Level 110H, Carbon Dioxide Level 21, Anion Gap 5, Blood Urea Nitrogen 34H, Creatinine 0.93, Estimat Glomerular Filtration Rate 59, BUN/Creatinine Ratio 37, Glucose Level 98, Calcium Level 8.0L, Corrected Calcium 8.7, Magnesium Level 2.1, Total Bilirubin 1.3H, Aspartate Amino Transf (AST/SGOT) 21, Alanine Aminotransferase (ALT/SGPT) 13, Alkaline Phosphatase 68, Total Protein 4.8L, Albumin 3.1L 10/04/23 05:24: White Blood Count 5.9, Red Blood Count 2.90L, Hemoglobin 9.1L, Hematocrit 28L, Mean Corpuscular Volume 96, Mean Corpuscular Hemoglobin 31, Mean Corpuscular Hemoglobin Concent 33, Red Cell Distribution Width 19.6H, Platelet Count 150, Mean Platelet Volume 11.1, Immature Granulocyte % (Auto) 4, Neutrophils (%) (Auto) 66, Lymphocytes (%) (Auto) 14, Monocytes (%) (Auto) 14H, Eosinophils (%) (Auto) 2, Basophils (%) (Auto) 1, Neutrophils # (Auto) 3.9, Lymphocytes # (Auto) 0.8L, Monocytes # (Auto) 0.8, Eosinophils # (Auto) 0.1, Basophils # (Auto) 0.0, Immature Granulocyte # (Auto) 0.2H, Sodium Level 134L, Potassium Level 4.3, Chloride Level 110H, Carbon Dioxide Level 19L, Anion Gap 5, Blood Urea Nitrogen 30H, Creatinine 1.01, Estimat Glomerular Filtration Rate 54, BUN/Creatinine Ratio 30, Glucose Level 96, Calcium Level 8.2L, Corrected Calcium 8.8, Magnesium Level 2.1, Total Bilirubin 1.4H, Aspartate Amino Transf (AST/SGOT) 25, Alanine Aminotransferase (ALT/SGPT) 18, Alkaline Phosphatase 74, Total Protein 5.1L, Albumin 3.3 10/05/23 04:45: White Blood Count 5.6, Red Blood Count 2.63L, Hemoglobin 8.3L, Hematocrit 25L, Mean Corpuscular Volume 96, Mean Corpuscular Hemoglobin 32, Mean Corpuscular Hemoglobin Concent 33, Red Cell Distribution Width 19.3H, Platelet Count 144, Mean Platelet Volume 10.8, Immature Granulocyte % (Auto) 2, Neutrophils (%) (Auto) 68, Lymphocytes (%) (Auto) 13, Monocytes (%) (Auto) 15H, Eosinophils (%) (Auto) 2, Basophils (%) (Auto) 0, Neutrophils # (Auto) 3.8, Lymphocytes # (Auto) 0.7L, Monocytes # (Auto) 0.8, Eosinophils # (Auto) 0.1, Basophils # (Auto) 0.0, Immature Granulocyte # (Auto) 0.1, Sodium Level 137, Potassium Level 4.4, Chloride Level 111H, Carbon Dioxide Level 20L, Anion Gap 6, Blood Urea Nitrogen 25H, Creatinine 0.95, Estimat Glomerular Filtration Rate 58, BUN/Creatinine Ratio 26, Glucose Level 100, Calcium Level 7.9L, Corrected Calcium 8.6, Magnesium Level 2.0, Total Bilirubin 1.0, Aspartate Amino Transf (AST/SGOT) 33, Alanine Aminotransferase (ALT/SGPT) 35, Alkaline Phosphatase 74, Total Protein 4.8L, Albumin 3.1L 10/05/23 12:57: Lab Scanned Report Transfusion Reaction Form Microbiology 09/30/23 MRSA Screen - Final, Complete MRSA not isolated Pending Labs Microbiology Date/Time Source Procedure Growth Status 09/30/23 12:18 Nasal MRSA Screen - Final MRSA not isolated Complete Laboratory Tests 09/30/23 09:00: White Blood Count 10.1, Red Blood Count 2.32, Hemoglobin 7.5, Hematocrit 23, Mean Corpuscular Volume 99, Mean Corpuscular Hemoglobin 32, Mean Corpuscular Hemoglobin Concent 33, Red Cell Distribution Width 16.6, Platelet Count 204, Mean Platelet Volume 11.4, Immature Granulocyte % (Auto) 1, Neutrophils (%) (Auto) 82, Lymphocytes (%) (Auto) 8, Monocytes (%) (Auto) 8, Eosinophils (%) (Auto) 1, Basophils (%) (Auto) 0, Neutrophils # (Auto) 8.3, Lymphocytes # (Auto) 0.8, Monocytes # (Auto) 0.8, Eosinophils # (Auto) 0.1, Basophils # (Auto) 0.0, Immature Granulocyte # (Auto) 0.1, Prothrombin Time 48.6, INR Comment 5.0, Activated Partial Thromboplast Time 36, Sodium Level 134, Potassium Level 4.4, Chloride Level 104, Carbon Dioxide Level 19, Anion Gap 11, Blood Urea Nitrogen 113, Creatinine 1.40, Estimat Glomerular Filtration Rate 36, BUN/Creatinine Ratio 81, Glucose Level 161, Calcium Level 9.9, Corrected Calcium 10.1, Magnesium Level 2.4, Total Bilirubin 1.0, Aspartate Amino Transf (AST/SGOT) 19, Alanine Aminotransferase (ALT/SGPT) 18, Alkaline Phosphatase 67, Troponin I < 0.028, B-Type Natriuretic Peptide 94.4, Total Protein 5.9, Albumin 3.8, Vitamin B12 Level 496, Thyroid Stimulating Hormone (TSH) 3.88 09/30/23 19:32: Hemoglobin 10.0, Hematocrit 30 09/30/23 23:22: SARS-CoV-2 RNA (RT-PCR) Not Detected 09/30/23 23:35: Hemoglobin 7.4, Hematocrit 22, Prothrombin Time 19.6, INR Comment 1.6 10/01/23 05:30: White Blood Count 9.0, Red Blood Count 2.70, Hemoglobin 8.2, Hematocrit 24, Mean Corpuscular Volume 90, Mean Corpuscular Hemoglobin 30, Mean Corpuscular Hemoglob in Concent 34, Red Cell Distribution Width 19.2, Platelet Count 144, Mean Platelet Volume 11.4, Immature Granulocyte % (Auto) 2, Neutrophils (%) (Auto) 71, Lymphocytes (%) (Auto) 11, Monocytes (%) (Auto) 14, Eosinophils (%) (Auto) 1, Basophils (%) (Auto) 0, Neutrophils # (Auto) 6.4, Lymphocytes # (Auto) 1.0, Monocytes # (Auto) 1.2, Eosinophils # (Auto) 0.1, Basophils # (Auto) 0.0, Immature Granulocyte # (Auto) 0.2, Prothrombin Time 17.4, INR Comment 1.4, Sodium Level 138, Potassium Level 4.1, Chloride Level 109, Carbon Dioxide Level 21, Anion Gap 8, Blood Urea Nitrogen 81, Creatinine 1.20, Estimat Glomerular Filtration Rate 44, BUN/Creatinine Ratio 68, Glucose Level 92, Calcium Level 8.6, Corrected Calcium 9.2, Phosphorus Level 2.8, Magnesium Level 2.2, Total Bilirubin 1.8, Aspartate Amino Transf (AST/SGOT) 20, Alanine Aminotransferase (ALT/SGPT) 16, Alkaline Phosphatase 59, Total Protein 5.1, Albumin 3.3 11/10/23 05:10: White Blood Count 7.0, Red Blood Count 2.57, Hemoglobin 7.8, Hematocrit 24, Mean Corpuscular Volume 93, Mean Corpuscular Hemoglobin 30, Mean Corpuscular Hemoglobin Concent 33, Red Cell Distribution Width 19.9, Platelet Count 144, Mean Platelet Volume 10.6, Immature Granulocyte % (Auto) 4, Neutrophils (%) (Auto) 64, Lymphocytes (%) (Auto) 14, Monocytes (%) (Auto) 16, Eosinophils (%) (Auto) 2, Basophils (%) (Auto) 1, Neutrophils # (Auto) 4.5, Lymphocytes # (Auto) 1.0, Monocytes # (Auto) 1.1, Eosinophils # (Auto) 0.1, Basophils # (Auto) 0.0, Immature Granulocyte # (Auto) 0.3, Sodium Level 140, Potassium Level 4.0, Chloride Level 111, Carbon Dioxide Level 21, Anion Gap 8, Blood Urea Nitrogen 49, Creatinine 1.04, Estimat Glomerular Filtration Rate 52, BUN/Creatinine Ratio 47, Glucose Level 97, Calcium Level 8.2, Corrected Calcium 8.8, Magnesium Level 2.2, Total Bilirubin 1.1, Aspartate Amino Transf (AST/SGOT) 23, Alanine Aminotransferase (ALT/SGPT) 14, Alkaline Phosphatase 60, Total Protein 4.9, Albumin 3.2 10/03/23 05:50: White Blood Count 6.5, Red Blood Count 2.82, Hemoglobin 8.7, Hematocrit 26, Mean Corpuscular Volume 93, Mean Corpuscular Hemoglobin 31, Mean Corpuscular Hemoglobin Concent 33, Red Cell Distribution Width 18.8, Platelet Count 144, Mean Platelet Volume 10.8, Immature Granulocyte % (Auto) 4, Neutrophils (%) (Auto) 64, Lymphocytes (%) (Auto) 13, Monocytes (%) (Auto) 16, Eosinophils (%) (Auto) 2, Basophils (%) (Auto) 1, Neutrophils # (Auto) 4.2, Lymphocytes # (Auto) 0.9, Monocytes # (Auto) 1.0, Eosinophils # (Auto) 0.1, Basophils # (Auto) 0.0, Immature Granulocyte # (Auto) 0.3, Sodium Level 136, Potassium Level 4.1, Chloride Level 110, Carbon Dioxide Level 21, Anion Gap 5, Blood Urea Nitrogen 34, Creatinine 0.93, Estimat Glomerular Filtration Rate 59, BUN/Creatinine Ratio 37, Glucose Level 98, Calcium Level 8.0, Corrected Calcium 8.7, Magnesium Level 2.1, Total Bilirubin 1.3, Aspartate Amino Transf (AST/SGOT) 21, Alanine A minotransferase (ALT/SGPT) 13, Alkaline Phosphatase 68, Total Protein 4.8, Albumin 3.1 10/04/23 05:24: White Blood Count 5.9, Red Blood Count 2.90, Hemoglobin 9.1, Hematocrit 28, Mean Corpuscular Volume 96, Mean Corpuscular Hemoglobin 31, Mean Corpuscular Hemoglobin Concent 33, Red Cell Distribution Width 19.6, Platelet Count 150, Mean Platelet Volume 11.1, Immature Granulocyte % (Auto) 4, Neutrophils (%) (Auto) 66, Lymphocytes (%) (Auto) 14, Monocytes (%) (Auto) 14, Eosinophils (%) (Auto) 2, Basophils (%) (Auto) 1, Neutrophils # (Auto) 3.9, Lymphocytes # (Auto) 0.8, Monocytes # (Auto) 0.8, Eosinophils # (Auto) 0.1, Basophils # (Auto) 0.0, Immature Granulocyte # (Auto) 0.2, Sodium Level 134, Potassium Level 4.3, Chloride Level 110, Carbon Dioxide Level 19, Anion Gap 5, Blood Urea Nitrogen 30, Creatinine 1.01, Estimat Glomerular Filtration Rate 54, BUN/Creatinine Ratio 30, Glucose Level 96, Calcium Level 8.2, Corrected Calcium 8.8, Magnesium Level 2.1, Total Bilirubin 1.4, Aspartate Amino Transf (AST/SGOT) 25, Alanine Aminotransferase (ALT/SGPT) 18, Alkaline Phosphatase 74, Total Protein 5.1, Albumin 3.3 10/05/23 04:45: White Blood Count 5.6, Red Blood Count 2.63, Hemoglobin 8.3, Hematocrit 25, Mean Corpuscular Volume 96, Mean Corpuscular Hemoglobin 32, Mean Corpuscular Hemoglobin Concent 33, Red Cell Distribution Width 19.3, Platelet Count 144, Mean Platelet Volume 10.8, Immature Granulocyte % (Auto) 2, Neutrophils (%) (Auto) 68, Lymphocytes (%) (Auto) 13, Monocytes (%) (Auto) 15, Eosinophils (%) (Auto) 2, Basophils (%) (Auto) 0, Neutrophils # (Auto) 3.8, Lymphocytes # (Auto) 0.7, Monocytes # (Auto) 0.8, Eosinophils # (Auto) 0.1, Basophils # (Auto) 0.0, Immature Granulocyte # (Auto) 0.1, Sodium Level 137, Potassium Level 4.4, Chloride Level 111, Carbon Dioxide Level 20, Anion Gap 6, Blood Urea Nitrogen 25, Creatinine 0.95, Estimat Glomerular Filtration Rate 58, BUN/Creatinine Ratio 26, Glucose Level 100, Calcium Level 7.9, Corrected Calcium 8.6, Magnesium Level 2.0, Total Bilirubin 1.0, Aspartate Amino Transf (AST/SGOT) 33, Alanine Aminotransferase (ALT/SGPT) 35, Alkaline Phosphatase 74, Total Protein 4.8, Albumin 3.1 10/05/23 12:57: Lab Scanned Report Transfusion Reaction Form Discharge Home Medications: Active Scripts Active Vitamin B-12 (Cyanocobalamin (Vitamin B-12)) 1,000 Mcg Tablet 1,000 Mcg PO DAILY@0700 Pantoprazole Sodium 40 Mg Tablet.dr 40 Mg PO BID Reported Prolia (Denosumab) 60 Mg/Ml Disp.syrin 60 Mg SQ [id number] Spironolactone 25 Mg Tablet 25 Mg PO DAILY Atorvastatin Calcium 40 Mg Tablet 40 Mg PO HS Potassium Chloride 10 Meq Tab.er.prt 10 Meq PO 1200 Furosemide 40 Mg Tablet 40 Mg PO 1200 Losartan Potassium 50 Mg Tablet 25 Mg PO BID TAKES OF A (50MG) TABLET Levothyroxine Sodium 50 Mcg Tablet 50 Mcg PO DAILY Carvedilol 25 Mg Tablet 25 Mg PO BID Instructions to patient/family Please see electronic discharge instructions given to patient. Clinical Quality Measures DVT/VTE Risk/Contraindication: Contraindications-Pharm: Other *list below* Other: PARVEEN Copeland DO Oct 05, 2023 10:28
[2023-10-05] MEDS: POTASSIUM CHLORIDE 10 MEQ TABLET PO SCH (11:37)
--- NOTE | 2023-10-05 15:03 | Progress Note ---
Subjective Date Seen by a Provider: Oct 05, 2023 Time Seen by a Provider: 11:00 Subjective/Events-last exam DC is delayed due to son not prepared to take her home IV iron will be given No falls Ambulating well Declines AL and [place] Review of Systems General: Fatigue, Malaise Objective Exam Last Set of Vital Signs Vital Signs Date Time Temp Pulse Resp B/P (MAP) Pulse Ox O2 Delivery O2 Flow Rate FiO2 10/05/23 12:59 69 10/05/23 11:14 36.5 16 91/54 (66) 97 Room Air 10/05/23 08:30 0.00 10/03/23 09:48 21 Capillary Refill : Less Than 3 Seconds I&O Intake and Output 10/04/23 23:59 Intake Total 2220 ml Balance 2220 ml Intake Oral 2220 ml # Voids 10 # Bowel Movements 1 General: Alert, Oriented X3, Cooperative, No Acute Distress Lungs: Clear to Auscultation, Normal Air Movement Heart: Regular Rate, Normal S1, Normal S2, No Murmurs Psych/Mental Status: Mental Status NL, Mood NL Results Lab Laboratory Tests 10/05/23 04:45: White Blood Count 5.6, Red Blood Count 2.63L, Hemoglobin 8.3L, Hematocrit 25L, Mean Corpuscular Volume 96, Mean Corpuscular Hemoglobin 32, Mean Corpuscular Hemoglobin Concent 33, Red Cell Distribution Width 19.3H, Platelet Count 144, Mean Platelet Volume 10.8, Immature Granulocyte % (Auto) 2, Neutrophils (%) (Auto) 68, Lymphocytes (%) (Auto) 13, Monocytes (%) (Auto) 15H, Eosinophils (%) (Auto) 2, Basophils (%) (Auto) 0, Neutrophils # (Auto) 3.8, Lymphocytes # (Auto) 0.7L, Monocytes # (Auto) 0.8, Eosinophils # (Auto) 0.1, Basophils # (Auto) 0.0, Immature Granulocyte # (Auto) 0.1, Sodium Level 137, Potassium Level 4.4, Chloride Level 111H, Carbon Dioxide Level 20L, Anion Gap 6, Blood Urea Nitrogen 25H, Creatinine 0.95, Estimat Glomerular Filtration Rate 58, BUN/Creatinine Ratio 26, Glucose Level 100, Calcium Level 7.9L, Corrected Calcium 8.6, Magnesium Level 2.0, Total Bilirubin 1.0, Aspartate Amino Transf (AST/SGOT) 33, Alanine Aminotransferase (ALT/SGPT) 35, Alkaline Phosphatase 74, Total Protein 4.8L, Albumin 3.1L 10/05/23 12:57: Lab Scanned Report Transfusion Reaction Form Microbiology 09/30/23 MRSA Screen - Final, Complete MRSA not isolated Assessment/Plan Assessment/Plan Assess & Plan/Chief Complaint Assessment: GIB Severe anemia requiring 4 units of blood Weakness Chronic debility AF Valvular heart disease Plan: Hold DC until tomorrow Clinical Quality Measures Admission Status Admission Dx Assessment: Anemia symptomatic requiring blood transfusions Presumed GIB Iron deficiency receiving iron infusions as outpatient Near syncope AF Valvular heart disease Plan: Transfuse Reverse INR with FFP and Vit K DVT/VTE Risk/Contraindication: Contraindications-Pharm: Other *list below* Other: PARVEEN Copeland DO Oct 05, 2023 15:03
[2023-10-05] MEDS: MELATONIN 3 MG TABLET PO PRN (20:23)
[2023-10-06 04:50] VITALS: BP 99/49
[2023-10-06] MEDS: CYANOCOBALAMIN 1,000 MCG TABLET PO SCH (05:37)
[2023-10-06 06:09] LABS: BASOPHILS % (AUTO) 1 % (0-10); EOSINOPHILS # (AUTO) 0.1 10^3/uL (0.0-0.3); EOSINOPHILS % (AUTO) 2 % (0-10); HEMATOCRIT 28 % (35-52); HEMOGLOBIN 8.9 g/dL (11.5-16.0); LYMPHOCYTES # (AUTO) 0.8 10^3/uL (1.0-4.0); LYMPHOCYTES % (AUTO) 13 % (12-44); MEAN CORPUSCULAR HEMOGLOBIN 31 pg (25-34); MEAN CORPUSCULAR HGB CONC 32 g/dL (32-36); MEAN CORPUSCULAR VOLUME 99 fL (80-99); MEAN PLATELET VOLUME 11.1 fL (9.0-12.2); MONOCYTES # (AUTO) 0.8 10^3/uL (0.0-1.0); MONOCYTES % (AUTO) 14 % (0-12); NEUTROPHILS # (AUTO) 3.9 10^3/uL (1.8-7.8); NEUTROPHILS % (AUTO) 68 % (42-75); PLATELET COUNT 150 10^3/uL (130-400); WHITE BLOOD COUNT 5.7 10^3/uL (4.3-11.0)
[2023-10-06 06:30] LABS: ALBUMIN 3.3 GM/DL (3.2-4.5); POTASSIUM 4.6 MMOL/L (3.6-5.0)
[2023-10-06 06:31] LABS: CALCIUM 7.8 MG/DL (8.5-10.1)
[2023-10-06 06:32] LABS: TOTAL PROTEIN 5.2 GM/DL (6.4-8.2)
[2023-10-06 06:36] LABS: CREATININE SERUM 1.03 MG/DL (0.60-1.30)
[2023-10-06 06:39] LABS: MAGNESIUM 2.1 MG/DL (1.6-2.4)
[2023-10-06] MEDS: POTASSIUM CHLORIDE 20 MEQ TABLET PO SCH (06:39)
[2023-10-06] MEDS: POTASSIUM CL 10MEQ/50ML IVPB 50 ML IV SCH (06:39)
[2023-10-06] MEDS: MAGNESIUM 1 GM/100 ML IVPB 100 ML IV SCH (06:44)
[2023-10-06] MEDS: RT-ALBUTEROL SULF 2.5 MG/3 ML PRE-MIX VIAL INH SCH (07:18)
[2023-10-06 07:35] VITALS: BP 98/55
[2023-10-06] MEDS: LEVOTHYROXINE 50 MCG TABLET PO SCH (08:22)
[2023-10-06] MEDS: PANTOPRAZOLE 40 MG TABLET PO SCH (08:22)
[2023-10-06] MEDS: DOCUSATE SODIUM 100 MG CAPSULE PO SCH (08:22)
[2023-10-06] MEDS: SPIRONOLACTONE 25 MG TABLET PO SCH (08:22)
[2023-10-06] MEDS: SENNOSIDES 8.6 MG TABLET PO SCH (08:22)
[2023-10-06] MEDS: IRON SUCROSE 200 MG/10 ML VIAL IV SCH (08:23)
[2023-10-06] MEDS: carvediloL 12.5 MG TABLET PO SCH (08:36)
--- NOTE | 2023-10-06 08:44 | Cardiology Progress Note ---
Subjective Date Seen by Provider: Oct 06, 2023 Time Seen by Provider: 08:43 Subjective/Events-last exam Patient was seen at bedside, sitting comfortably, no new complain still having hemoptysis Objective-Cardiology Exam Last Set of Vital Signs Vital Signs 10/03/23 10/05/23 10/06/23 09:48 08:30 07:35 Temp 36.8 Pulse 73 Resp 16 B/P (MAP) 98/55 (69) Pulse Ox 95 O2 Delivery Room Air O2 Flow Rate 0.00 FiO2 21 I&O Intake and Output 10/06/23 00:00 Intake Total 1490 ml Balance 1490 ml Intake Oral 1490 ml # Voids 8 # Bowel Movements 2 General: Alert, Oriented X3, Cooperative, No Acute Distress HEENT: PERRLA, EOMI Neck: No JVD Lungs: Clear to Auscultation, Normal Air Movement Heart: Regular Rate, Normal S1, Normal S2, No Murmurs Abdomen: Normal Bowel Sounds, Soft, No Tenderness Extremities: No Clubbing, No Cyanosis Skin: No Rashes, No Breakdown, No Significant Lesion Neuro: Normal Speech, Strength at 5/5 X4 Ext, Sensation Intact, Cranial Nerves 3-12 NL Psych/Mental Status: Mental Status NL, Mood NL Results Lab Laboratory Tests 10/06/23 05:52 A/P-Cardiology Admission Diagnosis GI bleed Chronic afib tricuspid recurgitation HTn Assessment/Plan Acute GI bleed, s/p blood transfusion. Reporting blood in sputum yesterday, better today Status post endoscopy with Dr. Hung showing old blood, duodenitis, gastritis. Patient had another hemoptysis, oral anticoagulation was held. Discussed the possibility of Watchman as an outpatient once she can tolerate anticoagulation for at least 3 months Increased dyspnea on exertion, multifactorial. Had extensive work-up done in 2019. Having hemoptysis, I recommend pulmonary evaluation with possible bronchoscopy. Patient is reporting some increasing palpitation and pressure or discomfort on the right side of her chest. She has underlying moderate to severe mitral regurgitation, moderate aortic stenosis. Scheduled for stress test as outpatient on October 09, 2023. Chronic atrial fibrillation, maintained on warfarin and beta-blockers. Warfarin discontinued d/t GI bleed Heart rate is controlled. Had another hemoptysis, Lovenox was discontinued. Coumadin toxicity, INR is 5, received FFP and blood transfusion Currently INR 1.4 Continue to monitor Sinus node dysfunction, history of single-chamber pacemaker implant done in 2013. Pacemaker interrogation was done on September 03, 2023 showing good sensing and capture activity, ventricular paced 55%, no arrhythmia detected. Moderate to severe mitral regurgitation, moderate to severe tricuspid regurgitation, dyspnea, patient was referred to and visited with Dr. Soria and Dr. Espino in August 2020 for possible mitral valve clip Her YURIDIA at was suggested at least moderate mitral regurgitation, Right heart catheterization and left heart catheterization done at , recommendation for now was conservative management Most recent 2D echo was done in August 2023 with normal LV size, mild LVH, EF 55-60%, biatrial enlargement, moderate mitral regurgitation, moderate aortic stenosis with peak gradient 22 mmHg mean gradient 13 mmHg valve area 1.19 cm, severe tricuspid regurgitation, PA pressure 50 to 55 mmHg Coronary artery disease mild stable at this time. Underwent complete heart cath at in 2019. Continue to monitor, no changes are recommended Peripheral arterial disease, RAFAEL was done on August 05, 2023 and it was normal on the right of 1.10 with abnormal TBI of 0 0.52. RAFAEL on the left was mildly abnormal at 0.85 with TBI 0.72. Currently asymptomatic Has mild varicose vein. Continue to monitor, patient was reassured. Hypertension, blood pressure is controlled Improved after decreasing Coreg and losartan Continue to monitor Hyperlipidemia, maintained on atorvastatin 40 mg daily History of anemia, recently started receiving iron transfusions. Gastroesophageal reflux disease RYAN, maintained on CPAP Mild bilateral carotid stenosis, underwent CTA head/neck in September 2022 showing nonobstructive disease. Hypothyroidism, managment per PCP APOORVA LIMA MD Oct 06, 2023 08:44
[2023-10-06] MEDS ORDERED: LOSARTAN 25 MG TABLET PO SCH (09:00)
[2023-10-06 11:34] VITALS: BP 100/56
--- NOTE | 2023-10-06 11:55 | Occupational Ther Daily Note ---
OT Current Status-Daily Note Subjective Preferred name HORACIO Mental Status/Objective Patient Orientation: Person, Place, Time, Situation ADL-Treatment OT arrived w/ patient on toilet in bathroom. OT provided footwear coverage. Patient completed transfer and BM hygiene through observation of door. Stands for hand hygiene, ambulated in halls w/ 2 rest periods Therapy Code Descriptions/Definitions Functional [place] Measure: 0=Not Assessed/NA 4=Minimal Assistance 1=Total Assistance 5=Supervision or Setup 2=Maximal Assistance 6=Modified [place] 3=Moderate Assistance 7=Complete IndependenceSCALE: Activities may be completed with or without assistive devices. 9-Vzkyypybgq-abisxqh completes the activity by him/herself with no assistance from a helper. 5-Set-up or Clean-up Assistance-helper sets up or cleans up; patient completes activity. [place] assists only prior to or following the activity. 4-Supervision or Touching Assistance-helper provides verbal cues and/or touching/steadying and/or contact guard assistance as patient completes activity. Assistance may be provided throughout the activity or intermittently. 3-Partial/Moderate Assistance-helper does LESS THAN HALF the effort. [place] lifts, holds or supports trunk or limbs, but provides less than half the effort. 2-Substantial/Maximal Assistance-helper does MORE THAN HALF the effort. [place] lifts or holds trunk or limbs and provides more than half the effort. 3-Fwsptukig-xbdpeq does ALL the effort. Patient does none of the effort to complete the activity. Or, the assistance of 2 or more helpers is required for the patient to complete the activity. If activity was not attempted, code reason: 7-Patient Refused. 9-Not Applicable-not attempted and the patient did not perform the activity before the current illness, exacerbation or injury. 10-Not Attempted due to Environmental Limitations-(lack of equipment, weather restraints, etc.). 88-Not Attempted due to Medical Conditions or Safety Concerns. Eating (QC): 6 Oral Hygiene (QC): 5 Upper Body Dressing (QC): 5 Lower Body Dressing (QC): 5 On/Off Footwear: 5 Toileting Hygiene (QC): 6 Toilet Transfer (QC): 6 Education OT Patient Education: Correct positioning, Modified ADL techniques, Safety issues Teaching Recipient: Patient Response to Teaching: Return Demonstration OT Wet Room Supervisor Goals Wet Room Supervisor Goals Time Frame: Oct 08, 2023 Eating (QC): 6 Oral Hygiene (QC): 6 Toileting Hygiene (QC): 6 Shower/Bathe Self (QC): 5 Upper Body Dressing (QC): 5 Lower Body Dressing (QC): 5 On/Off Footwear (QC): 5 Additional Goals: 1-Demonstrate ADL Tasks, 2-Verbalize Understanding, 3- ImproveStrength/Bruce 1=Demonstrate adherence to instructed precautions during ADL tasks. 2=Patient will verbalize/demonstrate understanding of assistive devices/modifications for ADL. 3=Patient will improve strength/tolerance for activity to enable patient to perform ADL's. OT Education/Plan Problem List/Assessment Assessment: No Skilled OT Needs ID'd Pt would benefit from skilled OT to increase her independence in basic self care and to decrease caregiver burden. Discharge Recommendations Plan/Recommendations: Discharge/Goals Met Treatment Plan/Plan of Care Patient would benefit from OT for education, treatment and training to promote independence in ADL's, mobility, safety and/or upper extremity function for ADL's. Plan of Care: ADL Retraining, Functional Mobility, UE Funct Exercise/Act Treatment Duration: Oct 08, 2023 Frequency: 3 times per week (3-5 times a week) Estimated Hrs Per Day: .25 hour per day Agreement: Yes Rehab Potential: Fair Time Start Time: 10:38 Stop Time: 10:54 DATE: Oct 06, 2023 Total Time Billed (hr/min): 15 Billed Treatment Time ADL 15 RADHA RODRIGUEZ OT Oct 06, 2023 11:55
--- NOTE | 2023-10-06 12:04 | Discharge Summary ---
Diagnosis/Chief Complaint Date of Admission Sep 30, 2023 at 12:06 Date of Discharge Discharge Date: Oct 06, 2023 Discharge Diagnosis Assessment: GIB Severe anemia requiring 4 units of blood Weakness Chronic debility AF Valvular heart disease Coagulopathy due to Warfarin now completely reversed with FFP 2 units on admit and Vit K Hematemesis after Lovenox started so DC Reason Hospital Visit CC: Severe anemia with presumed GIB HPI: This is an 88yoWF clinic patient of Dr Black who was recently diagnosed with anemia iron deficiency who received iron infusion for the first time yesterday who presented to the ER with weakness and near syncope and was found to have anemia and elevated BUN presumed to be from blood in the gut. Cardiology consulted for valvular disease and Dr Hung for scopes. Discharge Summary Discharge Physical Examination Allergies: Coded Allergies: lisinopril (Verified Allergy, Unknown, 09/30/23) Sulfa (Sulfonamide Antibiotics) (Unverified Adverse Reaction, Unknown, 11/02/19) morphine (Verified Adverse Reaction, Unknown, 04/30/19) Hallucinations Vitals & I&Os Vital Signs Date Time Temp Pulse Resp B/P (MAP) Pulse Ox O2 Delivery O2 Flow Rate FiO2 10/06/23 11:34 36.6 70 16 100/56 (71) 95 Room Air 10/05/23 08:30 0.00 10/03/23 09:48 21 General Appearance: Alert, Oriented X3, Cooperative Respiratory: Clear to Auscultation Psych/Mental Status: Mental Status NL Hospital Course Was the Problem List Reviewed?: Yes Uneventful course after she was admitted to ICU for GIB and was given a total of 2 units of FFP and Vit K 10mg IV for INR 5.0 which was completely reversed. 4 units of blood was given total during course and was also given IV iron and B12. Hgb stabilized but she had hematemesis so Lovenox was DC. Dr James continued to monitor her and overall she was able to regain strength but still needed close lab monitored and further strengthening so she was moved to [facility] [place] bed. Labs (last 24 hrs) Laboratory Tests 09/30/23 09:00: White Blood Count 10.1, Red Blood Count 2.32L, Hemoglobin 7.5L, Hematocrit 23L, Mean Corpuscular Volume 99, Mean Corpuscular Hemoglobin 32, Mean Corpuscular Hemoglobin Concent 33, Red Cell Distribution Width 16.6H, Platelet Count 204, Mean Platelet Volume 11.4, Immature Granulocyte % (Auto) 1, Neutrophils (%) (Auto) 82H, Lymphocytes (%) (Auto) 8L, Monocytes (%) (Auto) 8, Eosinophils (%) (Auto) 1, Basophils (%) (Auto) 0, Neutrophils # (Auto) 8.3H, Lymphocytes # (Auto) 0.8L, Monocytes # (Auto) 0.8, Eosinophils # (Auto) 0.1, Basophils # (Auto) 0.0, Immature Granulocyte # (Auto) 0.1, Prothrombin Time 48.6*H, INR Comment 5.0H, Activated Partial Thromboplast Time 36H, Sodium Level 134L, Potassium Level 4.4, Chloride Level 104, Carbon Dioxide Level 19L, Anion Gap 11, Blood Urea Nitrogen 113*H, Creatinine 1.40H, Estimat Glomerular Filtration Rate 36, BUN/Creatinine Ratio 81, Glucose Level 161H, Calcium Level 9.9, Corrected Calcium 10.1, Magnesium Level 2.4, Total Bilirubin 1.0, Aspartate Amino Transf (AST/SGOT) 19, Alanine Aminotransferase (ALT/SGPT) 18, Alkaline Phosphatase 67, Troponin I < 0.028, B-Type Natriuretic Peptide 94.4, Total Protein 5.9L, Albumin 3.8, Vitamin B12 Level 496, Thyroid Stimulating Hormone (TSH) 3.88 09/30/23 19:32: Hemoglobin 10.0#L, Hematocrit 30L 09/30/23 23:22: SARS-CoV-2 RNA (RT-PCR) Not Detected 09/30/23 23:35: Hemoglobin 7.4#L, Hematocrit 22L, Prothrombin Time 19.6H, INR Comment 1.6H 10/01/23 05:30: White Blood Count 9.0, Red Blood Count 2.70L, Hemoglobin 8.2L, Hematocrit 24L, Mean Corpuscular Volume 90, Mean Corpuscular Hemoglobin 30, Mean Corpuscular Hemoglobin Concent 34, Red Cell Distribution Width 19.2H, Platelet Count 144, Mean Platelet Volume 11.4, Immature Granulocyte % (Auto) 2, Neutrophils (%) (Auto) 71, Lymphocytes (%) (Auto) 11L, Monocytes (%) (Auto) 14H, Eosinophils (%) (Auto) 1, Basophils (%) (Auto) 0, Neutrophils # (Auto) 6.4, Lymphocytes # (Auto) 1.0, Monocytes # (Auto) 1.2H, Eosinophils # (Auto) 0.1, Basophils # (Auto) 0.0, Immature Granulocyte # (Auto) 0.2H, Prothrombin Time 17.4H, INR Comment 1.4, Sodium Level 138, Potassium Level 4.1, Chloride Level 109H, Carbon Dioxide Level 21, Anion Gap 8, Blood Urea Nitrogen 81H, Creatinine 1.20, Estimat Glomerular Filtration Rate 44, BUN/Creatinine Ratio 68, Glucose Level 92, Calcium Level 8.6, Corrected Calcium 9.2, Phosphorus Level 2.8, Magnesium Level 2.2, Total Bilirubin 1.8H, Aspartate Amino Transf (AST/SGOT) 20, Alanine Aminotransferase (ALT/SGPT) 16, Alkaline Phosphatase 59, Total Protein 5.1L, Albumin 3.3 10/02/23 05:10: White Blood Count 7.0, Red Blood Count 2.57L, Hemoglobin 7.8L, Hematocrit 24L, Mean Corpuscular Volume 93, Mean Corpuscular Hemoglobin 30, Mean Corpuscular H emoglobin Concent 33, Red Cell Distribution Width 19.9H, Platelet Count 144, Mean Platelet Volume 10.6, Immature Granulocyte % (Auto) 4, Neutrophils (%) (Auto) 64, Lymphocytes (%) (Auto) 14, Monocytes (%) (Auto) 16H, Eosinophils (%) (Auto) 2, Basophils (%) (Auto) 1, Neutrophils # (Auto) 4.5, Lymphocytes # (Auto) 1.0, Monocytes # (Auto) 1.1H, Eosinophils # (Auto) 0.1, Basophils # (Auto) 0.0, Immature Granulocyte # (Auto) 0.3H, Sodium Level 140, Potassium Level 4.0, Chloride Level 111H, Carbon Dioxide Level 21, Anion Gap 8, Blood Urea Nitrogen 49H, Creatinine 1.04, Estimat Glomerular Filtration Rate 52, BUN/Creatinine Ratio 47, Glucose Level 97, Calcium Level 8.2L, Corrected Calcium 8.8, Magnesium Level 2.2, Total Bilirubin 1.1H, Aspartate Amino Transf (AST/SGOT) 23, Alanine Aminotransferase (ALT/SGPT) 14, Alkaline Phosphatase 60, Total Protein 4.9L, Albumin 3.2 10/03/23 05:50: White Blood Count 6.5, Red Blood Count 2.82L, Hemoglobin 8.7L, Hematocrit 26L, Mean Corpuscular Volume 93, Mean Corpuscular Hemoglobin 31, Mean Corpuscular Hemoglobin Concent 33, Red Cell Distribution Width 18.8H, Platelet Count 144, Mean Platelet Volume 10.8, Immature Granulocyte % (Auto) 4, Neutrophils (%) (Auto) 64, Lymphocytes (%) (Auto) 13, Monocytes (%) (Auto) 16H, Eosinophils (%) (Auto) 2, Basophils (%) (Auto) 1, Neutrophils # (Auto) 4.2, Lymphocytes # (Auto) 0.9L, Monocytes # (Auto) 1.0, Eosinophils # (Auto) 0.1, Basophils # (Auto) 0.0, Immature Granulocyte # (Auto) 0.3H, Sodium Level 136, Potassium Level 4.1, Chloride Level 110H, Carbon Dioxide Level 21, Anion Gap 5, Blood Urea Nitrogen 34H, Creatinine 0.93, Estimat Glomerular Filtration Rate 59, BUN/Creatinine Ratio 37, Glucose Level 98, Calcium Level 8.0L, Corrected Calcium 8.7, Magnesium Level 2.1, Total Bilirubin 1.3H, Aspartate Amino Transf (AST/SGOT) 21, Alanine Aminotransferase (ALT/SGPT) 13, Alkaline Phosphatase 68, Total Protein 4.8L, Albumin 3.1L 10/04/23 05:24: White Blood Count 5.9, Red Blood Count 2.90L, Hemoglobin 9.1L, Hematocrit 28L, Mean Corpuscular Volume 96, Mean Corpuscular Hemoglobin 31, Mean Corpuscular Hemoglobin Concent 33, Red Cell Distribution Width 19.6H, Platelet Count 150, Mean Platelet Volume 11.1, Immature Granulocyte % (Auto) 4, Neutrophils (%) ( Auto) 66, Lymphocytes (%) (Auto) 14, Monocytes (%) (Auto) 14H, Eosinophils (%) (Auto) 2, Basophils (%) (Auto) 1, Neutrophils # (Auto) 3.9, Lymphocytes # (Auto) 0.8L, Monocytes # (Auto) 0.8, Eosinophils # (Auto) 0.1, Basophils # (Auto) 0.0, Immature Granulocyte # (Auto) 0.2H, Sodium Level 134L, Potassium Level 4.3, Chloride Level 110H, Carbon Dioxide Level 19L, Anion Gap 5, Blood Urea Nitrogen 30H, Creatinine 1.01, Estimat Glomerular Filtration Rate 54, BUN/Creatinine Ratio 30, Glucose Level 96, Calcium Level 8.2L, Corrected Calcium 8.8, Magnesium Level 2.1, Total Bilirubin 1.4H, Aspartate Amino Transf (AST/SGOT) 25, Alanine Aminotransferase (ALT/SGPT) 18, Alkaline Phosphatase 74, Total Protein 5.1L, Albumin 3.3 10/05/23 04:45: White Blood Count 5.6, Red Blood Count 2.63L, Hemoglobin 8.3L, Hematocrit 25L, Mean Corpuscular Volume 96, Mean Corpuscular Hemoglobin 32, Mean Corpuscular Hemoglobin Concent 33, Red Cell Distribution Width 19.3H, Platelet Count 144, Mean Platelet Volume 10.8, Immature Granulocyte % (Auto) 2, Neutrophils (%) (Auto) 68, Lymphocytes (%) (Auto) 13, Monocytes (%) (Auto) 15H, Eosinophils (%) (Auto) 2, Basophils (%) (Auto) 0, Neutrophils # (Auto) 3.8, Lymphocytes # (Auto) 0.7L, Monocytes # (Auto) 0.8, Eosinophils # (Auto) 0.1, Basophils # (Auto) 0.0, Immature Granulocyte # (Auto) 0.1, Sodium Level 137, Potassium Level 4.4, Chloride Level 111H, Carbon Dioxide Level 20L, Anion Gap 6, Blood Urea Nitrogen 25H, Creatinine 0.95, Estimat Glomerular Filtration Rate 58, BUN/Creatinine Ratio 26, Glucose Level 100, Calcium Level 7.9L, Corrected Calcium 8.6, Magnesium Level 2.0, Total Bilirubin 1.0, Aspartate Amino Transf (AST/SGOT) 33, Alanine Aminotransferase (ALT/SGPT) 35, Alkaline Phosphatase 74, Total Protein 4.8L, Albumin 3.1L 10/05/23 12:57: Lab Scanned Report Transfusion Reaction Form 10/06/23 05:52: White Blood Count 5.7, Red Blood Count 2.83L, Hemoglobin 8.9L, Hematocrit 28L, Mean Corpuscular Volume 99, Mean Corpuscular Hemoglobin 31, Mean Corpuscular Hemoglobin Concent 32, Red Cell Distribution Width 19.8H, Platelet Count 150, Mean Platelet Volume 11.1, Immature Granulocyte % (Auto) 2, Neutrophils (%) (Auto) 68, Lymphocytes (%) (Auto) 13, Monocytes (%) (Auto) 14H, Eosinophils (%) (Auto) 2, Basophils (%) (Auto) 1, Neutrophils # (Auto) 3.9, Lymphocytes # (Auto) 0.8L, Monocytes # (Auto) 0.8, Eosinophils # (Auto) 0.1, Basophils # (Auto) 0.0, Immature Granulocyte # (Auto) 0.1, Sodium Level 137, Potassium Level 4.6, Chloride Level 111H, Carbon Dioxide Level 20L, Anion Gap 6, Blood Urea Nitrogen 23H, Creatinine 1.03, Estimat Glomerular Filtration Rate 52, BUN/Creatinine Ratio 22, Glucose Level 102, Calcium Level 7.8L, Corrected Calcium 8.4L, Magnesium Level 2.1, Total Bilirubin 1.0, Aspartate Amino Transf (AST/SGOT) 52H, Alanine Aminotransferase (ALT/SGPT) 67H, Alkaline Phosphatase 95, Total Protein 5.2L, Albumin 3.3 Microbiology 09/30/23 MRSA Screen - Final, Complete MRSA not isolated Pending Labs Microbiology Date/Time Source Procedure Growth Status 09/30/23 12:18 Nasal MRSA Screen - Final MRSA not isolated Complete Laboratory Tests 09/30/23 09:00: White Blood Count 10.1, Red Blood Count 2.32, Hemoglobin 7.5, Hematocrit 23, Mean Corpuscular Volume 99, Mean Corpuscular Hemoglobin 32, Mean Corpuscular Hemoglobin Concent 33, Red Cell Distribution Width 16.6, Platelet Count 204, Mean Platelet Volume 11.4, Immature Granulocyte % (Auto) 1, Neutrophils (%) (Auto) 82, Lymphocytes (%) (Auto) 8, Monocytes (%) (Auto) 8, Eosinophils (%) (Auto) 1, Basophils (%) (Auto) 0, Neutrophils # (Auto) 8.3, Lymphocytes # (Auto) 0.8, Monocytes # (Auto) 0.8, Eosinophils # (Auto) 0.1, Basophils # (Auto) 0.0, Immature Granulocyte # (Auto) 0.1, Prothrombin Time 48.6, INR Comment 5.0, Activated Partial Thromboplast Time 36, Sodium Level 134, Potassium Level 4.4, Chloride Level 104, Carbon Dioxide Level 19, Anion Gap 11, Blood Urea Nitrogen 113, Creatinine 1.40, Estimat Glomerular Filtration Rate 36, BUN/Creatinine Ratio 81, Glucose Level 161, Calcium Level 9.9, Corrected Calcium 10.1, Magnesium Level 2.4, Total Bilirubin 1.0, Aspartate Amino Transf (AST/SGOT) 19, Alanine Aminotransferase (ALT/SGPT) 18, Alkaline Phosphatase 67, Troponin I < 0.028, B-Type Natriuretic Peptide 94.4, Total Protein 5.9, Albumin 3.8, Vitamin B12 Level 496, Thyroid Stimulating Hormone (TSH) 3.88 09/30/23 19:32: Hemoglobin 10.0, Hematocrit 30 09/30/23 23:22: SARS-CoV-2 RNA (RT-PCR) Not Detected 09/30/23 23:35: Hemoglobin 7.4, Hematocrit 22, Prothrombin Time 19.6, INR Comment 1.6 10/01/23 05:30: White Blood Count 9.0, Red Blood Count 2.70, Hemoglobin 8.2, Hematocrit 24, Mean Corpuscular Volume 90, Mean Corpuscular Hemoglobin 30, Mean Corpuscular Hemoglobin Concent 34, Red Cell Distribution Width 19.2, Platelet Count 144, Mean Platelet Volume 11.4, Immature Granulocyte % (Auto) 2, Neutrophils (%) (Auto) 71, Lymphocytes (%) (Auto) 11, Monocytes (%) (Auto) 14, Eosinophils (%) (Auto) 1, Basophils (%) (Auto) 0, Neutrophils # (Auto) 6.4, Lymphocytes # (Auto) 1.0, Monocytes # (Auto) 1.2, Eosinophils # (Auto) 0.1, Basophils # (Auto) 0.0, Immature Granulocyte # (Auto) 0.2, Prothrombin Time 17.4, INR Comment 1.4, Sod ium Level 138, Potassium Level 4.1, Chloride Level 109, Carbon Dioxide Level 21, Anion Gap 8, Blood Urea Nitrogen 81, Creatinine 1.20, Estimat Glomerular Filtration Rate 44, BUN/Creatinine Ratio 68, Glucose Level 92, Calcium Level 8.6, Corrected Calcium 9.2, Phosphorus Level 2.8, Magnesium Level 2.2, Total Bilirubin 1.8, Aspartate Amino Transf (AST/SGOT) 20, Alanine Aminotransferase (ALT/SGPT) 16, Alkaline Phosphatase 59, Total Protein 5.1, Albumin 3.3 10/02/23 05:10: White Blood Count 7.0, Red Blood Count 2.57, Hemoglobin 7.8, Hematocrit 24, Mean Corpuscular Volume 93, Mean Corpuscular Hemoglobin 30, Mean Corpuscular Hemoglobin Concent 33, Red Cell Distribution Width 19.9, Platelet Count 144, Mean Platelet Volume 10.6, Immature Granulocyte % (Auto) 4, Neutrophils (%) (Auto) 64, Lymphocytes (%) (Auto) 14, Monocytes (%) (Auto) 16, Eosinophils (%) (Auto) 2, Basophils (%) (Auto) 1, Neutrophils # (Auto) 4.5, Lymphocytes # (Auto) 1.0, Monocytes # (Auto) 1.1, Eosinophils # (Auto) 0.1, Basophils # (Auto) 0.0, Immature Granulocyte # (Auto) 0.3, Sodium Level 140, Potassium Level 4.0, Chloride Level 111, Carbon Dioxide Level 21, Anion Gap 8, Blood Urea Nitrogen 49, Creatinine 1.04, Estimat Glomerular Filtration Rate 52, BUN/Creatinine Ratio 47, Glucose Level 97, Calcium Level 8.2, Corrected Calcium 8.8, Magnesium Level 2.2, Total Bilirubin 1.1, Aspartate Amino Transf (AST/SGOT) 23, Alanine Aminotransferase (ALT/SGPT) 14, Alkaline Phosphatase 60, Total Protein 4.9, Albumin 3.2 10/03/23 05:50: White Blood Count 6.5, Red Blood Count 2.82, Hemoglobin 8.7, Hematocrit 26, Mean Corpuscular Volume 93, Mean Corpuscular Hemoglobin 31, Mean Corpuscular Hemoglobin Concent 33, Red Cell Distribution Width 18.8, Platelet Count 144, Mean Platelet Volume 10.8, Immature Granulocyte % (Auto) 4, Neutrophils (%) (Auto) 64, Lymphocytes (%) (Auto) 13, Monocytes (%) (Auto) 16, Eosinophils (%) (Auto) 2, Basophils (%) (Auto) 1, Neutrophils # (Auto) 4.2, Lymphocytes # (Auto) 0.9, Monocytes # (Auto) 1.0, Eosinophils # (Auto) 0.1, Basophils # (Auto) 0.0, Immature Granulocyte # (Auto) 0.3, Sodium Level 136, Potassium Level 4.1, Chlori de Level 110, Carbon Dioxide Level 21, Anion Gap 5, Blood Urea Nitrogen 34, Creatinine 0.93, Estimat Glomerular Filtration Rate 59, BUN/Creatinine Ratio 37, Glucose Level 98, Calcium Level 8.0, Corrected Calcium 8.7, Magnesium Level 2.1, Total Bilirubin 1.3, Aspartate Amino Transf (AST/SGOT) 21, Alanine Aminotransferase (ALT/SGPT) 13, Alkaline Phosphatase 68, Total Protein 4.8, Alb umin 3.1 10/04/23 05:24: White Blood Count 5.9, Red Blood Count 2.90, Hemoglobin 9.1, Hematocrit 28, Mean Corpuscular Volume 96, Mean Corpuscular Hemoglobin 31, Mean Corpuscular Hemoglobin Concent 33, Red Cell Distribution Width 19.6, Platelet Count 150, Mean Platelet Volume 11.1, Immature Granulocyte % (Auto) 4, Neutrophils (%) (Auto) 66, Lymphocytes (%) (Auto) 14, Monocytes (%) (Auto) 14, Eosinophils (%) (Auto) 2, Basophils (%) (Auto) 1, Neutrophils # (Auto) 3.9, Lymphocytes # (Auto) 0.8, Monocytes # (Auto) 0.8, Eosinophils # (Auto) 0.1, Basophils # (Auto) 0.0, Immature Granulocyte # (Auto) 0.2, Sodium Level 134, Potassium Level 4.3, Chloride Level 110, Carbon Dioxide Level 19, Anion Gap 5, Blood Urea Nitrogen 30, Creatinine 1.01, Estimat Glomerular Filtration Rate 54, BUN/Creatinine Ratio 30, Glucose Level 96, Calcium Level 8.2, Corrected Calcium 8.8, Magnesium Level 2.1, Total Bilirubin 1.4, Aspartate Amino Transf (AST/SGOT) 25, Alanine Aminotransferase (ALT/SGPT) 18, Alkaline Phosphatase 74, Total Protein 5.1, Albumin 3.3 10/05/23 04:45: White Blood Count 5.6, Red Blood Count 2.63, Hemoglobin 8.3, Hematocrit 25, Mean Corpuscular Volume 96, Mean Corpuscular Hemoglobin 32, Mean Corpuscular Hemoglobin Concent 33, Red Cell Distribution Width 19.3, Platelet Count 144, Mean Platelet Volume 10.8, Immature Granulocyte % (Auto) 2, Neutrophils (%) (Auto) 68, Lymphocytes (%) (Auto) 13, Monocytes (%) (Auto) 15, Eosinophils (%) (Auto) 2, Basophils (%) (Auto) 0, Neutrophils # (Auto) 3.8, Lymphocytes # (Auto) 0.7, Monocytes # (Auto) 0.8, Eosinophils # (Auto) 0.1, Basophils # (Auto) 0.0, Immature Granulocyte # (Auto) 0.1, Sodium Level 137, Potassium Level 4.4, Chloride Level 111, Carbon Dioxide Level 20, Anion Gap 6, Blood Urea Nitrogen 25, Creatinine 0.95, Estimat Glomerular Filtration Rate 58, BUN/Creatinine Ratio 26, Glucose Level 100, Calcium Level 7.9, Corrected Calcium 8.6, Magnesium Level 2.0, Total Bilirubin 1.0, Aspartate Amino Transf (AST/SGOT) 33, Alanine Aminotransferase (ALT/SGPT) 35, Alkaline Phosphatase 74, Total Protein 4.8, Albumin 3.1 10/05/23 12:57: Lab Scanned Report Transfusion Reaction Form 10/06/23 05:52: White Blood Count 5.7, Red Blood Count 2.83, Hemoglobin 8.9, Hematocrit 28, Mean Corpuscular Volume 99, Mean Corpuscular Hemoglobin 31, Mean Corpuscular Hemoglobin Concent 32, Red Cell Distribution Width 19.8, Platelet Count 150, Mean Platelet Volume 11.1, Immature Granulocyte % (Auto) 2, Neutrophils (%) (Auto) 68, Lymphocytes (%) (Auto) 13, Monocytes (%) (Auto) 14, Eosinophils (%) (Auto) 2, Basophils (%) (Auto) 1, Neutrophils # (Auto) 3.9, Lymphocytes # (Auto) 0.8, Monocytes # (Auto) 0.8, Eosinophils # (Auto) 0.1, Basophils # (Auto) 0.0, Immature Granulocyte # (Auto) 0.1, Sodium Level 137, Potassium Level 4.6, Chloride Level 111, Carbon Dioxide Level 20, Anion Gap 6, Blood Urea Nitrogen 23, Creatinine 1.03, Estimat Glomerular Filtration Rate 52, BUN/Creatinine Ratio 22, Glucose Level 102, Calcium Level 7.8, Corrected Calcium 8.4, Magnesium Level 2.1, Total Bilirubin 1.0, Aspartate Amino Transf (AST/SGOT) 52, Alanine Aminotransferase (ALT/SGPT) 67, Alkaline Phosphatase 95, Total Protein 5.2, Albumin 3.3 Discharge Home Medications: Active Scripts Active Vitamin B-12 (Cyanocobalamin (Vitamin B-12)) 1,000 Mcg Tablet 1,000 Mcg PO DA [id number] Pantoprazole Sodium 40 Mg Tablet.dr 40 Mg PO BID Reported Prolia (Denosumab) 60 Mg/Ml Disp.syrin 60 Mg SQ [id number] Spironolactone 25 Mg Tablet 25 Mg PO DAILY Atorvastatin Calcium 40 Mg Tablet 40 Mg PO HS Potassium Chloride 10 Meq Tab.er.prt 10 Meq PO 1200 Furosemide 40 Mg Tablet 40 Mg PO 1200 Losartan Potassium 50 Mg Tablet 25 Mg PO BID TAKES OF A (50MG) TABLET Levothyroxine Sodium 50 Mcg Tablet 50 Mcg PO DAILY Carvedilol 25 Mg Tablet 25 Mg PO BID Instructions to patient/family Please see electronic discharge instructions given to patient. Clinical Quality Measures DVT/VTE Risk/Contraindication: Contraindications-Pharm: Other *list below* Other: PARVEEN Copeland DO Oct 06, 2023 12:04
--- NOTE | 2023-10-06 12:04 | Discharge Inst-Skilled Nursing ---
Discharge Inst-Skilled NF Reconcile Patient Problems Problems Reviewed?: Yes Patient Instructions Patient Problems: GIB AF Consult/Follow Up/Orders Follow Up Appt.: PCP after DC Skilled NF Admit to: [facility] Certification (SNF) I certify that SNF services are required to be given on an inpatient basis because of the above named patient's need for jail care on a continuing basis for the conditions(s) for which he/she was receiving inpatient hospital services prior to his/her transfer to the SNF. [facility] Order: Nursing Services, Insurance Licensing Supervisor-Evaluate & Treat, Physical Therapy-Evaluate & Treat Oxygen Delivery Method: Room Air Discharge Diet: No Restrictions Resuscitation Status: Full Code New & Resume Previous Orders New Medications: Cyanocobalamin (Vitamin B-12) (Vitamin B-12) 1,000 Mcg Tablet 1000 MCG PO DAILY@0700, #30 TAB Pantoprazole Sodium (Pantoprazole Sodium) 40 Mg Tablet. 40 MG PO BID, #60 TAB Continued Medications: Atorvastatin Calcium (Atorvastatin Calcium) 40 Mg Tablet 40 MG PO HS, TAB Carvedilol (Carvedilol) 25 Mg Tablet 25 MG PO BID, TAB Denosumab (Prolia) 60 Mg/Ml Disp.syrin 60 MG SQ [id number], EA Furosemide (Furosemide) 40 Mg Tablet 40 MG PO 1200, TAB Levothyroxine Sodium (Levothyroxine Sodium) 50 Mcg Tablet 50 MCG PO DAILY, TAB Losartan Potassium (Losartan Potassium) 50 Mg Tablet 25 MG PO BID, TAB TAKES OF A (50MG) TABLET Potassium Chloride (Potassium Chloride) 10 Meq Tab.er.prt 10 MEQ PO 1200 Spironolactone (Spironolactone) 25 Mg Tablet 25 MG PO DAILY, TAB Discontinued Medications: Aspirin (Aspirin EC) 81 Mg Tablet. 81 MG PO HS, TAB Pantoprazole Sodium (Protonix) 40 Mg Tablet. 40 MG PO HS, TAB Warfarin Sodium (Warfarin Sodium) 2 Mg Tablet 2 MG PO SUN,TUES,THURS,SAT, TAB Warfarin Sodium (Warfarin Sodium) 4 Mg Tablet 4 MG PO MON,WED,FRI, TAB Diamond Mcgill Oct 06, 2023 12:02 DIAMODN MCGILL DO Oct 06, 2023 12:04
[2023-10-06] MEDS: POTASSIUM CHLORIDE 10 MEQ TABLET PO SCH (12:37)
== END 2023-10-06 13:57 | DRG 813 ==
LOC: EDUNIT# 08:52 → ER 08:53 → ICU 12:06 → 4TH 10-01 16:20
PROVIDERS: ADMIT Internal Medicine; ATTEND Internal Medicine
PROC: 0D738ZZ Dilation of Lower Esophagus, Via Natural or Artificial Opening Endoscopic (ICD-10-PCS; 2023-09-30)
PROC: 0DB68ZX Excision of Stomach, Via Natural or Artificial Opening Endoscopic, Diagnostic (ICD-10-PCS; 2023-09-30)
PROC: 0DB48ZX Excision of Esophagogastric Junction, Via Natural or Artificial Opening Endoscopic, Diagnostic (ICD-10-PCS; principal; 2023-09-30 15:44)
DX: D68.32 Hemorrhagic disorder due to extrinsic circulating anticoagulants (principal); I48.19 Other persistent atrial fibrillation; I50.32 Chronic diastolic (congestive) heart failure; D62 Acute posthemorrhagic anemia; I38 Endocarditis, valve unspecified; Z79.01 Long term (current) use of anticoagulants; Z79.82 Long term (current) use of aspirin; Z79.899 Other long term (current) drug therapy; Z96.653 Presence of artificial knee joint, bilateral; Z95.0 Presence of cardiac pacemaker; Z86.73 Personal history of transient ischemic attack (TIA), and cerebral infarction without residual deficits; K21.9 Gastro-esophageal reflux disease without esophagitis; E03.9 Hypothyroidism, unspecified; E78.5 Hyperlipidemia, unspecified; I11.0 Hypertensive heart disease with heart failure; K21.00 Gastro-esophageal reflux disease with esophagitis, without bleeding; K29.70 Gastritis, unspecified, without bleeding; K29.80 Duodenitis without bleeding; K44.9 Diaphragmatic hernia without obstruction or gangrene; K22.2 Esophageal obstruction; E66.9 Obesity, unspecified; E61.1 Iron deficiency; I07.1 Rheumatic tricuspid insufficiency; T45.515A Adverse effect of anticoagulants, initial encounter; I49.5 Sick sinus syndrome; I25.10 Atherosclerotic heart disease of native coronary artery without angina pectoris; I73.9 Peripheral vascular disease, unspecified; I65.23 Occlusion and stenosis of bilateral carotid arteries; Z11.52 Encounter for screening for COVID-19
CPT/HCPCS: 36410; 36415; 70450; 71045; 72125; 76937; 80053; 82607; 83735; 83880; 84100; 84443; 84484; 85014; 85018; 85025; 85610; 85730; 86850; 86900; 86901; 86920; 87081; 87636; 93005; 93041; 94640; 94760